=== PATIENT | female | born 1945 | race African-American/Black ===

== ENCOUNTER → 2016-05-17 | Outpatient (CLI) | payer MEDICARE, BC ==
[~2016-05-17] MED LIST: AMLO10TA4 PO; ASPI-482 PO; ASPI325T4 PO; ATOR20TA58 PO; Albuterol Sulfate NEB; CLOP75TA27 PO; CRESTOR40 MG PO; DOXY100C2 PO; ERGO500012 PO; FOLI0.8T21 PO; FURO-68 PO; FURO40TA4 PO; GLYB1TAB2 PO; GUAI5LIQ PO; HYDR-2868 PO; HYDR-2869 PO; HYDR100T24 PO; INSU100I13 SQ; INSU100V8 SQ; LABE200T24 PO; LINA5TAB PO; LIPITOR80 MG PO; LISI-334 PO; LISI-338 PO; METO2.5T PO; METO25TA2 PO; METO50TA2 PO; Metolazone PO; Metoprolol Tartrate PO; OMEP40CA5 PO; OXYC-323 PO; POTA20TA4 PO; PRED-220 PO; PRED20TA PO; PROAIR HFA8.5 GM INH; TOLT2TAB4 PO
--- NOTE | 2016-05-17 16:23 | CARD ---
APPROVED REPORT EXAM: Two-dimensional and M-mode echocardiogram with Doppler and color Doppler. Other Information Quality : GoodHR: 86bpm Rhythm : Irregular INDICATION Acute on chronic diastolic heart failure 2D DIMENSIONS RVDd3.4 (2.9-3.5cm)Left Atrium(2D)4.4 (1.6-4.0cm) IVSd1.5 (0.7-1.1cm)Aortic Root(2D)2.4 (2.0-3.7cm) LVDd5.1 (3.9-5.9cm)LVOT Diameter2.3 (1.8-2.4cm) PWd1.4 (0.7-1.1cm)LVDs3.9 (2.5-4.0cm) FS (%) 22.8 %SV55.4 ml Aortic Valve AoV Peak Vipul.157.6cm/sAoV VTI35.8cm AO Peak GR.9.9mmHgLVOT Peak Vipul.101.3cm/s AO Mean GR.6mmHgAVA (VMAX)2.77cm2 Mitral Valve MV E Xuzefgcw352.6cm/sMV E Peak Gr.6mmHg MV DECEL [id number] A Dejlvmdz087.8cm/s MV E Mean Gr.4mmHgE/A Ratio0.9 Pulmonary Valve PV Peak Uapkpkhf10.7cm/s Tricuspid Valve TR P. Xnfsrskv253yr/sTR Peak Gr.82mmHg Pulmonary Vein S1 Pdtuuyij65.6cm/sD2 Bgdnrzxo51.7cm/s PVa rzyrrnqr74wstb LEFT VENTRICLE The left ventricle is normal size. There is moderate concentric left ventricular hypertrophy. The lef t ventricular systolic function is normal. The Ejection Fraction is 55%. There is normal LV segmental wall motion. Transmitral Doppler flow pattern is Grade I-abnormal relaxation pattern. RIGHT VENTRICLE The right ventricle is normal size. There is normal right ventricular wall thickness. The right ventr icular systolic function is normal. ATRIA The left atrium is moderately dilated. The right atrium size is normal. The interatrial septum is int act with no evidence for an atrial septal defect or patent foramen ovale as noted on 2-D or Doppler i maging. AORTIC VALVE The aortic valve is mildly thickened. Doppler and Color Flow revealed no significant aortic regurgita tion. There is no significant aortic valvular stenosis. MITRAL VALVE The mitral valve leaflets are thickened. There is no evidence of mitral valve prolapse. There is no m itral valve stenosis. Doppler and Color Flow revealed mild to moderate mitral regurgitation. TRICUSPID VALVE Doppler and Color Flow revealed moderate tricuspid regurgitation. The pulmonary artery systolic press ure is estimated at 87 mmHg. There is severe pulmonary hypertension. PULMONIC VALVE The pulmonary valve is normal in structure and function. Doppler and Color Flow revealed no pulmonic valvular regurgitation. There is no pulmonic valvular stenosis. GREAT VESSELS The aortic root is normal in size. The ascending aorta is normal in size. The pulmonary artery is nor mal. The IVC is normal in size and collapses >50% with inspiration. PERICARDIAL EFFUSION There is no evidence of significant pericardial effusion. Critical Notification Critical Value: No <Conclusion> The left ventricular systolic function is normal. The Ejection Fraction is 55%. There is normal LV segmental wall motion. Transmitral Doppler flow pattern is Grade I-abnormal relaxation pattern. The left atrium is moderately dilated. Mild to moderate mitral regurgitation. Moderate tricuspid regurgitation. The pulmonary artery systolic pressure is estimated at 87 mmHg. There is severe pulmonary hypertension. There is no evidence of significant pericardial effusion.
== END | disposition home or self-care (01) ==
LOC: ECHO 11:00
PROVIDERS: ATTEND Internal Medicine Cardiovascular Disease
DX: I50.33 Acute on chronic diastolic (congestive) heart failure (principal); I51.7 Cardiomegaly; I34.0 Nonrheumatic mitral (valve) insufficiency; I27.2 Other secondary pulmonary hypertension
CPT/HCPCS: 93306

== ENCOUNTER → 2016-05-24 | Outpatient (CLI) | payer MEDICARE, BC ==
[2016-01-23 15:05] VITALS: BP 168/58
[~2016-05-24] MED LIST changes: -PROAIR HFA8.5 GM INH
[2016-05-24 13:13] LABS: CALCIUM 8.2 mg/dL (8.5-10.1); CREATININE 4.8 mg/dL (0.6-1.0); GFR 10.8; POTASSIUM 3.4 mmol/L (3.5-5.1)
== END | disposition home or self-care (01) ==
LOC: LAB 12:38
PROVIDERS: ATTEND Internal Medicine Cardiovascular Disease
DX: I50.33 Acute on chronic diastolic (congestive) heart failure (principal)
CPT/HCPCS: 36415; 80048

== ENCOUNTER 2016-05-26 11:17 | Emergency (ER) | payer MEDICARE, BC ==
[~2016-05-26] VITALS: Ht 154.9 cm; Wt 79.4 kg
[2016-05-26 13:05] LABS: BASO % 0 % (0-3); EOS % 0 % (0-3); HEMATOCRIT 32.8 % (36.0-47.0); HEMOGLOBIN 10.7 g/dL (12.0-15.5); LYMPH # 0.9 x10^3/uL (1.0-4.8); LYMPH % 14 % (24-48); MEAN CORPUSCULAR HEMOGLOBIN 31 pg (25-35); MEAN CORPUSCULAR HGB CONC 33 g/dL (31-37); MEAN CORPUSCULAR VOLUME 97 fL (79-100); MONO % 19 % (0-9); NEUT % 67 % (31-73); PLATELET COUNT 208 x10^3/uL (140-400); RED CELL DISTRIBUTION WIDTH 15.8 % (11.5-14.5); WHITE BLOOD COUNT 6.2 x10^3/uL (4.0-11.0)
[2016-05-26 13:06] LABS: CALCIUM 8.5 mg/dL (8.5-10.1); CREATININE 4.5 mg/dL (0.6-1.0); GFR 11.6; POTASSIUM 3.8 mmol/L (3.5-5.1)
--- NOTE | 2016-05-26 13:27 | RAD ---
INDICATION: Cough COMPARISON: 05/17/2016 FINDINGS: 2 views obtained. Cardiac silhouette is again enlarged. Interval improvement in right lower lung opacity compared to prior. No definite new infiltrate IMPRESSION: Some improvement in right lower lung opacity compared to prior without definite new infiltrate. Enlarged cardiac silhouette again seen.
[2016-05-26 13:30] VITALS: BP 158/92
[2016-05-26 13:45] LABS: ANISOCYTOSIS SLIGHT; OVALOCYTES FEW; PLT ESTIMATE ADEQUATE (ADEQUATE); POLYCHROMASIA SLIGHT; SCHISTOCYTES OCC
--- NOTE | 2016-05-26 13:52 | PHYS DOC ---
Past Medical History Past Medical History: CHF, COPD, Diabetes-Type II, DVT, High Cholesterol, Hypertension, [place], Other Additional Past Medical Histor: high chol Past Surgical History: Angioplasty, Other Additional Past Surgical Histo: cardiac cath with stent placement, rotator cuff surgery Alcohol Use: None Drug Use: None Adult General Chief Complaint Chief Complaint: SHORTNESS OF BREATH [facility] HPI Patient is a 70 year old female who presents with for evaluation of difficulty breathing for the past 1 month. States she was seen at urgent care 2 days ago and diagnosed with pneumonia. She was placed on doxycycline and prednisone. She also states she has been short of breath over the past 1 month due to CHF as well. She was seen by her key account executive to increased her diuretic and she has been improving. She states she is not completely back to her baseline, but her lower extremity swelling is gone and she no longer has a productive cough. She has been using albuterol intermittently as well. She denies chest pain, orthopnea, fever or chills, sore throat, myalgia, rhinorrhea , leg pain or swelling, hemoptysis, palpitations, diaphoresis. She is compliant with dialysis Review of Systems Review of Systems Constitutional: Denies fever or chills [] Eyes: Denies change in visual acuity, redness, or eye pain [] HENT: Denies nasal congestion or sore throat [] Respiratory: Has cough and shortness of breath [] Cardiovascular: No additional information not addressed in HPI [] GI: Denies abdominal pain, nausea, vomiting, bloody stools or diarrhea [] : Denies dysuria or hematuria [] Musculoskeletal: Denies back pain or joint pain [] Integument: Denies rash or skin lesions [] Neurologic: Denies headache, focal weakness or sensory changes [] Endocrine: Denies polyuria or polydipsia [] Allergies Allergies Allergies Coded Allergies Type Severity Reaction Last Updated Verified Iodinated Contrast Media - Oral and Allergy Intermediate 06/19/15 Yes Physical Exam Physical Exam Constitutional: Well developed, well nourished, no acute distress, non-toxic appearance. [] HENT: Normocephalic, atraumatic, bilateral external ears normal, oropharynx moist, no oral exudates, nose normal. [] Eyes: PERRLA, EOMI. [] Neck: Normal range of motion, supple, no stridor. [] Cardiovascular:Heart rate regular rhythm [] Lungs & Thorax: Bilateral breath sounds clear to auscultation. Intermittent dry cough [] Abdomen: Bowel sounds normal, soft, no tenderness. [] Skin: Warm, dry, no erythema, no rash. [] Back: No tenderness, no CVA tenderness. [] Extremities: No tenderness, ROM intact, no edema, no palpable cord. [] Neurologic: Alert and oriented X 3, normal motor function, normal sensory function, no focal deficits noted. [] Psychologic: Affect normal, judgement normal, mood normal. [] Current Patient Data Vital Signs Vital Signs Date Time Temp Pulse Resp B/P Pulse Ox O2 Delivery O2 Flow Rate FiO2 05/26/16 13:30 100 20 158/92 98 Nasal Cannula 4 05/26/16 11:30 97.5 97.5 Lab Values Laboratory Tests Test 05/26/16 12:37 05/26/16 12:42 Glucose (Fingerstick) 113mg/dL (70-99) H White Blood Count 6.2x10^3/uL (4.0-11.0) Red Blood Count 3.40x10^6/uL (3.50-5.40) L Hemoglobin 10.7g/dL (12.0-15.5) L Hematocrit 32.8% (36.0-47.0) L Mean Corpuscular Volume 97fL (79-100) Mean Corpuscular Hemoglobin 31pg (25-35) Mean Corpuscular Hemoglobin Concent 33g/dL (31-37) Red Cell Distribution Width 15.8% (11.5-14.5) H Platelet Count 208x10^3/uL (140-400) Neutrophils (%) (Auto) 67% (31-73) Lymphocytes (%) (Auto) 14% (24-48) L Monocytes (%) (Auto) 19% (0-9) H Eosinophils (%) (Auto) 0% (0-3) Basophils (%) (Auto) 0% (0-3) Neutrophils # (Auto) 4.2x10^3uL (1.8-7.7) Lymphocytes # (Auto) 0.9x10^3/uL (1.0-4.8) L Monocytes # (Auto) 1.2x10^3/uL (0.0-1.1) H Eosinophils # (Auto) 0.0x10^3/uL (0.0-0.7) Basophils # (Auto) 0.0x10^3/uL (0.0-0.2) Segmented Neutrophils % 68% (35-66) H Band Neutrophils % 7% (0-9) Lymphocytes % 13% (24-48) L Atypical Lymphocytes % (Manual) 1% (0-0) H Monocytes % 9% (0-10) Metamyelocytes % 1% (0-0) H Myelocytes % 1% (0-0) H Platelet Estimate Adequate (ADEQUATE) Polychromasia Slight Anisocytosis Slight Ovalocytes Few Schistocytes Occ Sodium Level 145mmol/L (136-145) Potassium Level 3.8mmol/L (3.5-5.1) Chloride Level 108mmol/L (98-107) H Carbon Dioxide Level 27mmol/L (21-32) Anion Gap 10 (6-14) Blood Urea Nitrogen 31mg/dL (7-20) H Creatinine 4.5mg/dL (0.6-1.0) H Estimated GFR (Cockcroft-Gault) 11.6 Glucose Level 121mg/dL (70-99) H Calcium Level 8.5mg/dL (8.5-10.1) BQ-Ayu-H-Type Natriuretic Peptide > 26682uz/mL (0-124) H Laboratory Tests 05/26/16 12:42 Laboratory Tests 05/26/16 12:42 EKG EKG EKG as interpreted by me as sinus with right bundle branch block, rate 97, no ST -T changes, MS 120, QTc 487, PVC Radiology/Procedures Radiology/Procedures Chest xray as interpreted by me with no acute cardiopulmonary disease process, improved from prior Course & Med Decision Making Course & Med Decision Making Pertinent Labs and Imaging studies reviewed. (See chart for details) Workup is unremarkable. She has elevated proBNP in the setting of end-stage renal disease. Chest x-ray is improving from prior, which is what they were most concerned about. She would like to go home and continue outpatient therapy. Return precautions given. She and understand and agree with plan. Dragon Disclaimer Dragon Disclaimer This electronic medical record was generated, in whole or in part, using a voice recognition dictation system. Departure Departure Impression: Primary Impression: Dyspnea Disposition: HOME, SELF-CARE Condition: STABLE Referrals: BERTO TORRES MD (PCP) Patient Instructions: Shortness of Breath, Evle-uj-Dutv Additional Instructions: Continue your current medications. Follow up with your primary care doctor. Return for any concerns. Problem Qualifiers Primary Impression: Dyspnea Dyspnea type: unspecified Qualified Code: R06.00 - Dyspnea, unspecified Sean ARECHIGA MD May 26, 2016 13:52
--- NOTE | 2016-05-26 15:53 | EKG ---
[facility] [address] [place] [address] Test Date: 2016-05-26 Test Time: 12:55:40 Pat Name: WANDA PRABHAKAR Department: Room: Gender: F Vendor Management Associate: : [id number] Requested By: Sean ARECHIGA Order Number: [id number] Reading MD: Measurements Intervals [place] Rate: 97 P: -13 DC: 120 QRS: -45 QRSD: 140 T: 25 QT: 380 QTc: 487 Interpretive Statements SINUS RHYTHM ATRIAL PREMATURE COMPLEX(ES) ABNORMAL LEFT AXIS DEVIATION LEFT ANTERIOR FASCICULAR BLOCK RIGHT BUNDLE BRANCH BLOCK BIFASCICULAR BLOCK RVH WITH REPOLARIZATION ABNORMALITY RI6.01 Unconfirmed report Compared to ECG 01/20/2016 14:53:27 Left anterior fascicular block now present Bifascicular block now present Sinus tachycardia no longer present Myocardial infarct finding no longer present
== END 2016-05-26 14:30 | disposition home or self-care (01) ==
LOC: ER 11:17
DX: R06.00 Dyspnea, unspecified (principal); I11.0 Hypertensive heart disease with heart failure; I50.9 Heart failure, unspecified; J44.9 Chronic obstructive pulmonary disease, unspecified; E11.9 Type 2 diabetes mellitus without complications; I25.2 Old myocardial infarction; E78.00 Pure hypercholesterolemia, unspecified; Z95.5 Presence of coronary angioplasty implant and graft; Z91.041 Radiographic dye allergy status; Z86.718 Personal history of other venous thrombosis and embolism
CPT/HCPCS: 36415; 71020; 80048; 82947; 83880; 85007; 85027; 93005; 99285-25

== ENCOUNTER 2016-05-31 11:52 | Inpatient (IN) | payer MEDICARE, BC ==
[~2016-05-31] VITALS: Ht 156.2 cm; Wt 77.1 kg
[2016-05-31] MEDS ORDERED: FUROSEMIDE 20 MG/2 ML VIAL IVP ONE ×2 (12:15→17:15)
[2016-05-31] MEDS ORDERED: IPRATRPIUM/ALBUTEROL 0.5/2.5MG 3 ML NEBU. NEB ONE (12:15)
--- NOTE | 2016-05-31 12:47 | RAD ---
EXAM: Chest one view. HISTORY: Chest pain and cough. COMPARISON: 05/26/2016. FINDINGS: A frontal view of the chest is obtained. Hyperinflation is consistent with chronic obstructive pulmonary disease. Blunting of the right costophrenic angle suggests a small pleural effusion. Enlargement of the central pulmonary arteries is consistent with pulmonary arterial hypertension. The heart is moderately enlarged. There are atherosclerotic calcifications of the aorta. There is bilateral rotator cuff arthropathy. IMPRESSION: 1. Moderate cardiomegaly. Small right pleural effusion. 2. Hyperinflation suggests chronic obstructive pulmonary disease.
[2016-05-31 13:11] LABS: BASO % 0 % (0-3); EOS % 0 % (0-3); HEMATOCRIT 34.5 % (36.0-47.0); HEMOGLOBIN 11.3 g/dL (12.0-15.5); LYMPH # 0.8 x10^3/uL (1.0-4.8); LYMPH % 8 % (24-48); MEAN CORPUSCULAR HEMOGLOBIN 32 pg (25-35); MEAN CORPUSCULAR HGB CONC 33 g/dL (31-37); MEAN CORPUSCULAR VOLUME 97 fL (79-100); MONO % 9 % (0-9); NEUT % 83 % (31-73); PLATELET COUNT 238 x10^3/uL (140-400); RED BLOOD COUNT 3.57 x10^6/uL (3.50-5.40); RED CELL DISTRIBUTION WIDTH 17.2 % (11.5-14.5); WHITE BLOOD COUNT 10.4 x10^3/uL (4.0-11.0)
--- NOTE | 2016-05-31 13:21 | PHYS DOC ---
Past Medical History Past Medical History: CHF, COPD, Diabetes-Type II, DVT, High Cholesterol, Hypertension, [place], Renal Disease, Renal Failure, Other Additional Past Medical Histor: high chol, dialysis MWF Past Surgical History: Angioplasty, Other Additional Past Surgical Histo: cardiac cath with stent placement, rotator cuff surgery,AV graft Additional Information: 7 years ago Alcohol Use: None Drug Use: None Adult General Chief Complaint Chief Complaint: SHORTNESS OF BREATH HPI HPI 70-year-old female presenting the emergency department with shortness of breath. She has oxygen that she wears at home however even on oxygen at home is becoming more short of breath. This started approximately 2 weeks ago it is worse with exertion. Approximately a week ago she was diagnosed with pneumonia and received antibiotic therapy long with steroids. She denies any cough. She has had nausea over the past few days and has a hard time keeping down her medications. She was recently prescribed Lasix but denies taking an over the past few days. She endorses mild leg swelling. Review of systems is negative for chest pain abdominal pain rash or diaphoresis. All other review of systems is negative unless otherwise noted in history of present illness. Review of Systems Review of Systems SEE ABOVE. Current Medications Current Medications Current Medications Medications (Trade) Dose Ordered Sig/Eric Start Time Stop Time Status Last Admin Dose Admin Albuterol/ Ipratropium (Duoneb) 3 ml 1X ONCE 05/31/16 12:15 05/31/16 12:16 DC 05/31/16 12:30 3 ML Furosemide (Lasix) 20 mg 1X ONCE 05/31/16 12:15 05/31/16 12:16 DC 05/31/16 13:03 20 MG Allergies Allergies Allergies Coded Allergies Type Severity Reaction Last Updated Verified Iodinated Contrast Media - Oral and Allergy Intermediate 06/19/15 Yes Physical Exam Physical Exam Constitutional: Well developed, well nourished, no acute distress, non-toxic appearance. HENT: Normocephalic, atraumatic, bilateral external ears normal, oropharynx moist, no oral exudates, nose normal. [] Eyes: PERRLA, EOMI, conjunctiva normal, no discharge. Neck: Normal range of motion, no tenderness, supple, no stridor. [] Cardiovascular:Heart rate regular rhythm, no murmur [] Lungs & Thorax: Mild crackles in the bases. mild wheezing present. Abdomen: Bowel sounds normal, soft, no tenderness, no masses, no pulsatile masses. [] Skin: Warm, dry, no erythema, no rash. Back: No tenderness, no CVA tenderness. Extremities: No tenderness, no cyanosis, no clubbing, ROM intact, no edema. [] Neurologic: Alert and oriented X 3, normal motor function, normal sensory function, no focal deficits noted. Psychologic: Affect normal, judgement normal, mood normal. [] Current Patient Data Vital Signs Vital Signs Date Time Temp Pulse Resp B/P Pulse Ox O2 Delivery O2 Flow Rate FiO2 05/31/16 13:03 94 19 199/95 99 Nasal Cannula 3 05/31/16 12:02 98.3 98.3 Lab Values Laboratory Tests Test 05/31/16 12:55 White Blood Count 10.4x10^3/uL (4.0-11.0) # Red Blood Count 3.57x10^6/uL (3.50-5.40) Hemoglobin 11.3g/dL (12.0-15.5) L Hematocrit 34.5% (36.0-47.0) L Mean Corpuscular Volume 97fL (79-100) Mean Corpuscular Hemoglobin 32pg (25-35) Mean Corpuscular Hemoglobin Concent 33g/dL (31-37) Red Cell Distribution Width 17.2% (11.5-14.5) H Platelet Count 238x10^3/uL (140-400) Neutrophils (%) (Auto) 83% (31-73) H Lymphocytes (%) (Auto) 8% (24-48) L Monocytes (%) (Auto) 9% (0-9) Eosinophils (%) (Auto) 0% (0-3) Basophils (%) (Auto) 0% (0-3) Neutrophils # (Auto) 8.6x10^3uL (1.8-7.7) H Lymphocytes # (Auto) 0.8x10^3/uL (1.0-4.8) L Monocytes # (Auto) 0.9x10^3/uL (0.0-1.1) Eosinophils # (Auto) 0.0x10^3/uL (0.0-0.7) Basophils # (Auto) 0.0x10^3/uL (0.0-0.2) Sodium Level 142mmol/L (136-145) Potassium Level 4.3mmol/L (3.5-5.1) Chloride Level 107mmol/L (98-107) Carbon Dioxide Level 28mmol/L (21-32) Anion Gap 7 (6-14) Blood Urea Nitrogen 25mg/dL (7-20) H Creatinine 4.0mg/dL (0.6-1.0) H Estimated GFR (Cockcroft-Gault) 13.3 Glucose Level 193mg/dL (70-99) H Calcium Level 8.4mg/dL (8.5-10.1) L Total Bilirubin 0.7mg/dL (0.2-1.0) Direct Bilirubin 0.1mg/dL (0.0-0.2) Aspartate Amino Transferase (AST) 26U/L (15-37) Alanine Aminotransferase (ALT) 42U/L (14-59) Alkaline Phosphatase 99U/L (46-116) Troponin I Quantitative 0.091ng/mL (0.000-0.055) DE-Uad-T-Type Natriuretic Peptide > 23893ee/mL (0-124) H Total Protein 5.8g/dL (6.4-8.2) L Albumin 2.5g/dL (3.4-5.0) L Lipase 179U/L (73-393) Laboratory Tests 05/31/16 12:55 Laboratory Tests 05/31/16 12:55 EKG EKG EKG shows sinus rhythm with a regular rate. [place] is leftward with a right bundle branch block QRS morphology present. Intervals show prolonged QRS. ST segments are congruent. Radiology/Procedures Radiology/Procedures [] Course & Med Decision Making Course & Med Decision Making Pertinent Labs and Imaging studies reviewed. (See chart for details) [] 80-year-old female presenting with worsening shortness of breath. On examination the patient was saturating well on her baseline requirement however she did have wheezing and crackles on exam. Otherwise she was mildly tachycardic. Physical exam was otherwise unremarkable. EKG unremarkable. Chest x -ray unremarkable. Blood work obtained which showed mild anemia. Chemistry panel showed elevated creatinine and BUN. ProBNP extremely elevated. Troponin elevated. The patient was then admitted to our hospital for further evaluation workup and care. Dragon Disclaimer Dragon Disclaimer This electronic medical record was generated, in whole or in part, using a voice recognition dictation system. Departure Departure Impression: Primary Impression: Dyspnea Additional Impressions: CHF exacerbation COPD (chronic obstructive pulmonary disease) Disposition: ADMITTED INPATIENT Admitting Physician: Alexandre Amezcua Condition: STABLE Referrals: BERTO TORRES MD (PCP) Problem Qualifiers ISABEL RAMOS MD May 31, 2016 13:21
[2016-05-31] MEDS ORDERED: ONDANSETRON PF 4 MG/2 ML VIAL. IV PRN ×2 (13:30→17:15)
[2016-05-31] MEDS ORDERED: MORPHINE SULFATE 2 MG/ML DISP.SYRIN. IV PRN (13:30)
[2016-05-31 13:32] LABS: CALCIUM 8.4 mg/dL (8.5-10.1); GFR 13.3; POTASSIUM 4.3 mmol/L (3.5-5.1)
[2016-05-31 13:35] LABS: ALBUMIN 2.5 g/dL (3.4-5.0); DIRECT BILIRUBIN 0.1 mg/dL (0.0-0.2); TOTAL BILIRUBIN 0.7 mg/dL (0.2-1.0); TOTAL PROTEIN 5.8 g/dL (6.4-8.2)
[2016-05-31] MEDS ORDERED: ASPIRIN 81 MG TAB.CHEW PO ONE (13:45)
--- NOTE | 2016-05-31 14:24 | ACF ---
Admission Forms Criteria HEART FAILURE: COMMON COMPLICATIONS Clinical Indications for Inpatient Care (Place 'X' for any and all applicable criteria): Ongoing inpatient care may be indicated for heart failure with ANY ONE of the following (1)(2)(3)(4)(5): [ ]I. Ongoing need for care for primary condition requiring frequent therapy adjustments because of changes in cardiac function (eg, drug dosage changes for drugs that are renally metabolized) [ ]II. New-onset heart failure [ ]III. Heart failure with decreased urine output not responsive to attempts to optimize volume status [ ]IV. Acute cardiac ischemia causing or associated with failure [X]V. Complications of heart failure, including ANY ONE of the following: [ ]a) Pericardial effusion [ ]b) Symptomatic pleural effusion [ ]c) O2 saturation <90% or PO2 < 60 mm Hg (8.0 kPa) on room air or require baseline supplemental O2 [ ]d) Tachypnea [X]e) Dyspnea [ ]f) Syncope [ ]g) Change in mental status [ ]h) Acute renal insufficiency that is severe (reduction of more than 50% in estimated glomerular filtration rate from baseline) or progressive reduction of more than 25% in estimated glomerular filtration rate from baseline, with creatinine continuing to rise) [ ]i) Hemodynamic instability [ ]j) Anasarca [ ]k) Clinically significant metabolic abnormalities due to heart failure (eg, new-onset metabolic acidosis) Extended stay beyond goal length of stay for primary condition may be needed until ALL of the following are present(1)(3): [ ]a) Stable and effective diuretic regimen established (or patient on stable dialysis regimen if in chronic renal failure) [ ]b) Breathing comfortably at rest [ ]c) Saturation of arterial oxygen greater than 90% or at acceptable baseline [ ]d) Pulmonary edema absent or improved [ ]e) Hemodynamic stability [ ]f) Volume status acceptable on oral medication [ ]g) Peripheral or sacral edema absent or improved [ ]h) Renal function stable and manageable at a lower level of care [ ]i) Complications (eg, pleural effusion) resolved or manageable at a lower level of care [ ]j) Patient or caregiver has received written discharge instructions or educational material addressing activity level, diet, discharge medications, follow-up appointment, weight monitoring, and what to do if symptoms worsen The original [facility] content created by [employer] has been revised. The portions of the content which have been revised are identified through the use of italic text or in bold, and [facility] has neither reviewed nor approved the modified material.All other unmodified content is copyright [facility]. Please see references footnoted in the original [facility] edition 2016 Admission Criteria Met?: Yes BERTIN SORTO May 31, 2016 14:24
[2016-05-31] MEDS: IPRATRPIUM/ALBUTEROL 0.5/2.5MG 3 ML NEBU. NEB SCH ×2 (15:15→20:24)
--- NOTE | 2016-05-31 15:53 | PDOC2 ---
CARDIAC CONSULT DATE OF CONSULT Date of Consult DATE: 05/31/16 TIME: 15:41 REASON FOR CONSULT Reason for Consult: Worsening exertional dyspnea REFERRING PHYSICIAN Referring Physician: Dr. Wilkins SOURCE Source: Chart review, Patient HISTORY OF PRESENT ILLNESS HISTORY OF PRESENT ILLNESS This is a 70 yo female who presented with complaints of shortness of breath. Patient reports symptoms have been ongoing over the last 3 weeks; worse over the last 24-48hrs. Associated with productive cough. Feels achy/fatigued. Patient seen in our office last ; apparently she stopped taking her lasix and metolazone for unknown reasons. Lasix was resumed. Patient then went to ED; was treated and sent home. Symptoms worsened so she returned to the ED today. Denies any CP, palpitations, dizziness, diaphoresis, nausea/vomiting, or fevers. PAST MEDICAL HISTORY Past Medical History Cardiovascular: CAD, CHF, HTN, Hyperlipidemia, Pulmonary hypertension, Other ( PVD s/p [employer]/stent to left common iliac artery) Pulmonary: Asthma, COPD, PNA, PENNY CENTRAL NERVOUS SYSTEM: Other (no pertinent hx) GI: GERD Heme/Onc: Anemia NOS, Other (DVT) Renal/: Chronic renal failure on HD Endocrine: Diabetes Dermatology: No pertinent hx PAST SURGICAL HISTORY Past Surgical History Appendectomy, Other (left rotator cuff sx) FAMILY HISTORY Family History: Coronary Artery Disease, Diabetes, Hypertension SOCIAL HISTORY Smoke: No ALCOHOL: none Drugs: None Lives: with Family CURRENT MEDICATIONS CURRENT MEDICATIONS Current Medications Medications (Trade) Dose Ordered Sig/Eric Route PRN Reason Start Time Stop Time Status Last Admin Dose Admin Albuterol/ Ipratropium (Duoneb) 3 ml 1X ONCE NEB 05/31/16 12:15 05/31/16 12:16 DC 05/31/16 12:30 Furosemide (Lasix) 20 mg 1X ONCE IVP 05/31/16 12:15 05/31/16 12:16 DC 05/31/16 13:03 Albuterol/ Ipratropium (Duoneb) 3 ml RTQID NEB 05/31/16 16:00 06/01/16 15:59 05/31/16 15:15 Aspirin (Children'S Aspirin) 324 mg 1X ONCE PO 05/31/16 13:45 05/31/16 13:46 DC 05/31/16 13:50 ALLERGIES ALLERGIES: Coded Allergies: Iodinated Contrast Media - Oral and (Verified Allergy, Intermediate, ) ROS Review of System 14 point ROS conducted with pertinent positives noted above in HPI PHYSICAL EXAM General: Alert, Oriented X3, Cooperative, No acute distress HEENT: Atraumatic, Mucous membr. moist/pink Lungs: Other (bibasilar crackles) Heart: Regular rate, Normal S1, Normal S2, Other (2/6 systolic murmur ) Abdomen: Soft Extremities: Other (1+ LLE edema, trace RLE edema, 1+ bilateral DP pulses ) Skin: No breakdown, No significant lesion Neuro: Normal speech, Sensation intact Psych/Mental Status: Mental status NL, Mood NL MUSCULOSKELETAL: Osteoarthritic changes both hands VITALS VITALS Vital Signs Date Time Temp Pulse Resp B/P Pulse Ox O2 Delivery O2 Flow Rate FiO2 05/31/16 15:16 97 Nasal Cannula 4.0 05/31/16 13:51 97 24 196/93 05/31/16 12:02 98.3 98.3 LABS Lab: Laboratory Tests Test 05/31/16 12:55 White Blood Count 10.4x10^3/uL (4.0-11.0) Red Blood Count 3.57x10^6/uL (3.50-5.40) Hemoglobin 11.3g/dL (12.0-15.5) Hematocrit 34.5% (36.0-47.0) Mean Corpuscular Volume 97fL (79-100) Mean Corpuscular Hemoglobin 32pg (25-35) Mean Corpuscular Hemoglobin Concent 33g/dL (31-37) Red Cell Distribution Width 17.2% (11.5-14.5) Platelet Count 238x10^3/uL (140-400) Neutrophils (%) (Auto) 83% (31-73) Lymphocytes (%) (Auto) 8% (24-48) Monocytes (%) (Auto) 9% (0-9) Eosinophils (%) (Auto) 0% (0-3) Basophils (%) (Auto) 0% (0-3) Neutrophils # (Auto) 8.6x10^3uL (1.8-7.7) Lymphocytes # (Auto) 0.8x10^3/uL (1.0-4.8) Monocytes # (Auto) 0.9x10^3/uL (0.0-1.1) Eosinophils # (Auto) 0.0x10^3/uL (0.0-0.7) Basophils # (Auto) 0.0x10^3/uL (0.0-0.2) Sodium Level 142mmol/L (136-145) Potassium Level 4.3mmol/L (3.5-5.1) Chloride Level 107mmol/L (98-107) Carbon Dioxide Level 28mmol/L (21-32) Anion Gap 7 (6-14) Blood Urea Nitrogen 25mg/dL (7-20) Creatinine 4.0mg/dL (0.6-1.0) Estimated GFR (Cockcroft-Gault) 13.3 Glucose Level 193mg/dL (70-99) Calcium Level 8.4mg/dL (8.5-10.1) Total Bilirubin 0.7mg/dL (0.2-1.0) Direct Bilirubin 0.1mg/dL (0.0-0.2) Aspartate Amino Transf (AST/SGOT) 26U/L (15-37) Alanine Aminotransferase (ALT/SGPT) 42U/L (14-59) Alkaline Phosphatase 99U/L (46-116) Troponin I Quantitative 0.091ng/mL (0.000-0.055) KD-Vxf-L-Type Natriuretic Peptide > 28793xr/mL (0-124) Total Protein 5.8g/dL (6.4-8.2) Albumin 2.5g/dL (3.4-5.0) Lipase 179U/L (73-393) ECHOCARDIOGRAM ECHOCARDIOGRAM <Conclusion> The left ventricular systolic function is normal. The Ejection Fraction is 55%. There is normal LV segmental wall motion. Transmitral Doppler flow pattern is Grade I-abnormal relaxation pattern. The left atrium is moderately dilated. Mild to moderate mitral regurgitation. Moderate tricuspid regurgitation. The pulmonary artery systolic pressure is estimated at 87 mmHg. There is severe pulmonary hypertension. There is no evidence of significant pericardial effusion. DATE: 05/17/16 1622 STRESS TEST STRESS TEST Conclusion 1. No EKG evidence of stress induced ischemic changes. 2. Small reversible inferior wall defect as noted above. 3. Low normal EF with stress. EF 58% 4. Low to moderate risk study. DATE: 06/02/15 1152 HEART CATH HEART CATH Conclusion 1. Severe single-vessel coronary artery disease. 80% stenosis involving the mid segment of the right coronary artery. The previously placed stent in the distal segment of the right coronary artery was widely patent. 2. Successful PCI/drug eluting stent placement to the right coronary artery. Recommendations 1. Aspirin 325 mg daily 2. Plavix 75 mg daily for preferably one year 3. Cardiovascular risk factor modification DATE: 01/24/14 1035 ASSESSMENT/PLAN ASSESSMENT/PLAN 1. Acute on chronic diastolic heart failure, decompensated NT Pro BNP significantly elevated. CXR with right pleural effusion Recent echo with LVEF 55% continue diuresis as able fluid offloading in HD 2. Mildly elevated troponin initial 0.091 in the setting of CKD and acute HF MPI 05/26 with no evidence of ischemia trend enzymes 3. Acute on chronic respiratory failure with AE COPD pulm consulted. 4. CAD s/p PCI/MALLORIE to RCA stable. CP free continue secondary prevention 5. PVD s/p [employer]/stent placement to left common iliac artery. stable. no claudication symptoms Hypertension uncontrolled; did not take home medication today- will resume hydralazine PRN Hyperlipidemia resume statin therapy Chronic renal failure on HD per nephrology Mild protein malnutrition DM Problems: DARSHANA PEPE APRN May 31, 2016 15:52
[2016-05-31] MEDS ORDERED: hydrALAZINE 20 MG/ML VIAL. IVP PRN ×2 (16:30→17:15)
[2016-05-31] MEDS ORDERED: ASPIRIN 325 MG TABLET PO SCH (17:00)
[2016-05-31] MEDS ORDERED: HYDROCODONE/APAP 5/325MG TABLET. PO PRN (17:15)
[2016-05-31] MEDS ORDERED: ALBUTEROL SULFATE 2.5 MG/3 ML NEBU. NEB PRN (17:15)
[2016-05-31] MEDS ORDERED: ACETAMINOPHEN 325 MG TABLET. PO PRN (17:15)
[2016-05-31] MEDS: METOLAZONE 2.5 MG TABLET PO SCH (17:21)
[2016-05-31] MEDS: FUROSEMIDE 40 MG/4 ML VIAL IVP SCH (17:21)
[2016-05-31] MEDS: POTASSIUM CHLORIDE 20 MEQ TABLET.ER. PO SCH (17:21)
[2016-05-31] MEDS: CLOPIDOGREL BISULFATE 75 MG TABLET PO SCH (17:21)
[2016-05-31] MEDS: LISINOPRIL 20 MG TABLET PO SCH (17:22)
[2016-05-31] MEDS: METOPROLOL TART IMMED RELEASE 50 MG TABLET PO SCH ×2 (17:22→22:27)
--- NOTE | 2016-05-31 17:35 | PDOC1 ---
History and Physical Past Medical History Cardiovascular: CAD, CHF, HTN, Hyperlipidemia, Other Pulmonary: Asthma, COPD, Other CENTRAL NERVOUS SYSTEM: Other GI: Diverticulosis Heme/Onc: Anemia NOS Psych: Anxiety Rheumatologic: No pertinent hx Infectious disease: No pertinent hx Renal/: Chronic renal failure Endocrine: Diabetes Past Surgical History Past Surgical History: Appendectomy, Arthroscopy, Other Family History Family History: Coronary Artery Disease, Diabetes, Hypertension Social History Smoke: No ALCOHOL: none Drugs: None Current Problem List Problem List Problems Medical Problems: (1) CHF exacerbation Status: Acute (2) COPD (chronic obstructive pulmonary disease) Status: Acute (3) Dyspnea Status: Acute Current Medications Current Medications Current Medications Medications (Trade) Dose Ordered Sig/Eric Start Time Stop Time Status Last Admin Dose Admin Acetaminophen (Tylenol) 325 mg PRN Q6HRS PRN 05/31/16 17:15 Acetaminophen/ Hydrocodone Bitart (Lortab 5/325) 1 tab PRN Q6HRS PRN 05/31/16 17:15 Albuterol Sulfate (Ventolin Neb Soln) 2.5 mg PRN Q4HRS PRN 05/31/16 17:15 Albuterol/ Ipratropium (Duoneb) 3 ml RTQID 05/31/16 16:00 06/01/16 15:59 05/31/16 15:15 3 ML Aspirin (Hung Aspirin) 81 mg DAILY 05/31/16 17:00 Aspirin (Children'S Aspirin) 324 mg 1X ONCE 05/31/16 13:45 05/31/16 13:46 DC 05/31/16 13:50 324 MG Atorvastatin Calcium (Lipitor) 30 mg QHS 05/31/16 21:00 Clopidogrel Bisulfate (Plavix) 75 mg DAILY 05/31/16 17:00 05/31/16 17:21 75 MG Furosemide (Lasix) 20 mg 1X ONCE 05/31/16 17:15 05/31/16 17:17 DC Hydralazine HCl (Apresoline) 10 mg PRN Q4HRS PRN 05/31/16 17:15 Lisinopril (Prinivil) 20 mg DAILY 05/31/16 17:00 05/31/16 17:22 20 MG Metolazone (Zaroxolyn) 2.5 mg DAILY 05/31/16 17:00 05/31/16 17:21 2.5 MG Metoprolol Tartrate (Lopressor) 50 mg BID 05/31/16 17:00 05/31/16 17:22 50 MG Morphine Sulfate 2 mg PRN Q2HR PRN 05/31/16 13:30 06/01/16 13:29 Ondansetron HCl (Zofran) 4 mg PRN Q8HRS PRN 05/31/16 17:15 Potassium Chloride (Klor-Con) 20 meq DAILYWBKFT 05/31/16 17:00 05/31/16 17:21 20 MEQ Allergies Allergies Allergies Coded Allergies Type Severity Reaction Last Updated Verified Iodinated Contrast Media - Oral and Allergy Intermediate 06/19/15 Yes ROS Review of System CONSTITUTIONAL: No fever or chills EYES: No recent changes SKIN: No rash or itching CARDIOVASCULAR: sob and leg edema RESPIRATORY: No SOB or cough GASTROINTESTINAL: No nausea, vomiting or abdominal pain NEUROLOGICAL: No headaches or weakness ENDOCRINE: No cold or heat intolerance GENITOURINARY: No urgency or frequency of urination MUSCULOSKELETAL: No back pain or joint pain LYMPHATICS: No enlarged lymph nodes PSYCHIATRIC: No anxiety or depression Physical Exam Physical Exam GEN.: No apparent distress. Alert and oriented. HEENT: Head is normocephalic, atraumatic NECK: Supple. no jvd LUNGS: anterior chest clear, basal rales HEART: RRR, S1, S2 present. Peripheral pulses intact ABDOMEN: Soft, nontender. Positive bowel sounds. EXTREMITIES: Without any cyanosis. edema present NEUROLOGIC: Normal speech, normal tone PSYCHIATRIC: Normal affect, normal mood. SKIN: No visible ulcerations Vitals Vitals Vital Signs Date Time Temp Pulse Resp B/P Pulse Ox O2 Delivery O2 Flow Rate FiO2 05/31/16 17:22 98 198/92 05/31/16 16:16 20 05/31/16 15:16 97 Nasal Cannula 4.0 05/31/16 12:02 98.3 98.3 Labs Labs Laboratory Tests Test 05/31/16 12:55 White Blood Count 10.4x10^3/uL (4.0-11.0) Red Blood Count 3.57x10^6/uL (3.50-5.40) Hemoglobin 11.3g/dL (12.0-15.5) Hematocrit 34.5% (36.0-47.0) Mean Corpuscular Volume 97fL (79-100) Mean Corpuscular Hemoglobin 32pg (25-35) Mean Corpuscular Hemoglobin Concent 33g/dL (31-37) Red Cell Distribution Width 17.2% (11.5-14.5) Platelet Count 238x10^3/uL (140-400) Neutrophils (%) (Auto) 83% (31-73) Lymphocytes (%) (Auto) 8% (24-48) Monocytes (%) (Auto) 9% (0-9) Eosinophils (%) (Auto) 0% (0-3) Basophils (%) (Auto) 0% (0-3) Neutrophils # (Auto) 8.6x10^3uL (1.8-7.7) Lymphocytes # (Auto) 0.8x10^3/uL (1.0-4.8) Monocytes # (Auto) 0.9x10^3/uL (0.0-1.1) Eosinophils # (Auto) 0.0x10^3/uL (0.0-0.7) Basophils # (Auto) 0.0x10^3/uL (0.0-0.2) Sodium Level 142mmol/L (136-145) Potassium Level 4.3mmol/L (3.5-5.1) Chloride Level 107mmol/L (98-107) Carbon Dioxide Level 28mmol/L (21-32) Anion Gap 7 (6-14) Blood Urea Nitrogen 25mg/dL (7-20) Creatinine 4.0mg/dL (0.6-1.0) Estimated GFR (Cockcroft-Gault) 13.3 Glucose Level 193mg/dL (70-99) Calcium Level 8.4mg/dL (8.5-10.1) Total Bilirubin 0.7mg/dL (0.2-1.0) Direct Bilirubin 0.1mg/dL (0.0-0.2) Aspartate Amino Transf (AST/SGOT) 26U/L (15-37) Alanine Aminotransferase (ALT/SGPT) 42U/L (14-59) Alkaline Phosphatase 99U/L (46-116) Troponin I Quantitative 0.091ng/mL (0.000-0.055) DW-Fiv-A-Type Natriuretic Peptide > 46051si/mL (0-124) Total Protein 5.8g/dL (6.4-8.2) Albumin 2.5g/dL (3.4-5.0) Lipase 179U/L (73-393) Laboratory Tests Test 05/31/16 12:55 White Blood Count 10.4x10^3/uL (4.0-11.0) Red Blood Count 3.57x10^6/uL (3.50-5.40) Hemoglobin 11.3g/dL (12.0-15.5) Hematocrit 34.5% (36.0-47.0) Mean Corpuscular Volume 97fL (79-100) Mean Corpuscular Hemoglobin 32pg (25-35) Mean Corpuscular Hemoglobin Concent 33g/dL (31-37) Red Cell Distribution Width 17.2% (11.5-14.5) Platelet Count 238x10^3/uL (140-400) Neutrophils (%) (Auto) 83% (31-73) Lymphocytes (%) (Auto) 8% (24-48) Monocytes (%) (Auto) 9% (0-9) Eosinophils (%) (Auto) 0% (0-3) Basophils (%) (Auto) 0% (0-3) Neutrophils # (Auto) 8.6x10^3uL (1.8-7.7) Lymphocytes # (Auto) 0.8x10^3/uL (1.0-4.8) Monocytes # (Auto) 0.9x10^3/uL (0.0-1.1) Eosinophils # (Auto) 0.0x10^3/uL (0.0-0.7) Basophils # (Auto) 0.0x10^3/uL (0.0-0.2) Sodium Level 142mmol/L (136-145) Potassium Level 4.3mmol/L (3.5-5.1) Chloride Level 107mmol/L (98-107) Carbon Dioxide Level 28mmol/L (21-32) Anion Gap 7 (6-14) Blood Urea Nitrogen 25mg/dL (7-20) Creatinine 4.0mg/dL (0.6-1.0) Estimated GFR (Cockcroft-Gault) 13.3 Glucose Level 193mg/dL (70-99) Calcium Level 8.4mg/dL (8.5-10.1) Total Bilirubin 0.7mg/dL (0.2-1.0) Direct Bilirubin 0.1mg/dL (0.0-0.2) Aspartate Amino Transf (AST/SGOT) 26U/L (15-37) Alanine Aminotransferase (ALT/SGPT) 42U/L (14-59) Alkaline Phosphatase 99U/L (46-116) Troponin I Quantitative 0.091ng/mL (0.000-0.055) JO-Dkg-B-Type Natriuretic Peptide > 72775vt/mL (0-124) Total Protein 5.8g/dL (6.4-8.2) Albumin 2.5g/dL (3.4-5.0) Lipase 179U/L (73-393) VTE Prophylaxis Ordered VTE Prophylaxis Devices: Yes VTE Pharmacological Prophylaxi: Yes MARISSA WOOD MD May 31, 2016 17:35
[2016-05-31] MEDS ORDERED: DEXTROSE 50% 25 GM / 50ML DISP.SYRIN. IV PRN ×2 (17:45→22:15)
--- NOTE | 2016-05-31 18:08 | PDOC2 ---
CONSULT Date of Consult Date of Consult DATE: 05/31/16 TIME: 18:06 Reason for Consult Reason for Consult: ESRD Referring Physician Referring Physician: Dr Amezcua Identification/Chief Complaint Chief Complaint SOB/ COPD Exac Problems: Source Source: Chart review, Patient History of Present Illness Reason for Visit: as dictated Past Medical History Cardiovascular: CAD, CHF, HTN, Hyperlipidemia, Other Pulmonary: Asthma, COPD, Other CENTRAL NERVOUS SYSTEM: Other GI: Diverticulosis Heme/Onc: Anemia NOS Psych: Anxiety Rheumatologic: No pertinent hx Infectious disease: No pertinent hx Renal/: Chronic renal failure Endocrine: Diabetes Past Surgical History Past Surgical History: Appendectomy, Arthroscopy, Other Family History Family History: Coronary Artery Disease, Diabetes, Hypertension Social History No ALCOHOL: none Drugs: None Lives: with Family Current Problem List Problem List Problems Medical Problems: (1) CHF exacerbation Status: Acute (2) COPD (chronic obstructive pulmonary disease) Status: Acute (3) Dyspnea Status: Acute Current Medications Current Medications Current Medications Albuterol/ Ipratropium (Duoneb) 3 ml 1X ONCE NEB Last administered on 12:30; Start 05/31/16 at 12:15; Stop 05/31/16 at 12:16; Status DC Furosemide (Lasix) 20 mg 1X ONCE IVP Last administered on 05/31/16 13:03; Start 05/31/16 at 12:15; Stop 05/31/16 at 12:16; Status DC Ondansetron HCl (Zofran) 4 mg PRN Q8HRS PRN IV NAUSEA/VOMITING; Start 05/31/16 at 13:30; Stop 06/01/16 at 13:29 Morphine Sulfate 2 mg PRN Q2HR PRN IV PAIN; Start 05/31/16 at 13:30; Stop 06/01 at 13:29 Albuterol/ Ipratropium (Duoneb) 3 ml RTQID NEB Last administered on 05/31/16 15:15; Start 05/31/16 at 16:00; Stop 06/01/16 at 15:59 Aspirin (Children'S Aspirin) 324 mg 1X ONCE PO Last administered on 05/31/16 13:50; Start 05/31/16 at 13:45; Stop 05/31/16 at 13:46; Status DC Furosemide (Lasix) 40 mg DAILY IVP Last administered on 05/31/16 17:21; Start 05/31/16 at 16:30 Aspirin (Hung Aspirin) 81 mg DAILY PO ; Start 05/31/16 at 17:00; Stop 05/31/16 at 17:36; Status DC Atorvastatin Calcium (Lipitor) 30 mg QHS PO ; Start 05/31/16 at 21:00 Clopidogrel Bisulfate (Plavix) 75 mg DAILY PO Last administered on 05/31/16 17 :21; Start 05/31/16 at 17:00 Lisinopril (Prinivil) 20 mg DAILY PO Last administered on 05/31/16 17:22; Start 05/31/16 at 17:00 Metolazone (Zaroxolyn) 2.5 mg DAILY PO Last administered on 05/31/16 17:21; Start 05/31/16 at 17:00 Potassium Chloride (Klor-Con) 20 meq DAILYWBKFT PO Last administered on 17:21; Start 05/31/16 at 17:00 Metoprolol Tartrate (Lopressor) 50 mg BID PO Last administered on 05/31/16 17: 22; Start 05/31/16 at 17:00 Hydralazine HCl (Apresoline) 10 mg PRN Q4HRS PRN IVP ELEVATED BP, SEE COMMENTS ; Start 05/31/16 at 16:30 Acetaminophen (Tylenol) 325 mg PRN Q6HRS PRN PO MILD PAIN / TEMP; Start at 17:15 Acetaminophen/ Hydrocodone Bitart (Lortab 5/325) 1 tab PRN Q6HRS PRN PO MODERATE TO SEVERE PAIN; Start 05/31/16 at 17:15 Hydralazine HCl (Apresoline) 10 mg PRN Q4HRS PRN IVP ELEVATED BP, SEE COMMENTS ; Start 05/31/16 at 17:15 Ondansetron HCl (Zofran) 4 mg PRN Q8HRS PRN IV NAUSEA/VOMITING; Start 05/31/16 at 17:15 Albuterol Sulfate (Ventolin Neb Soln) 2.5 mg PRN Q4HRS PRN NEB SHORTNESS OF BREATH; Start 05/31/16 at 17:15 Furosemide (Lasix) 20 mg 1X ONCE IVP ; Start 05/31/16 at 17:15; Stop 05/31/16 at 17:17; Status DC Aspirin (Ecotrin) 81 mg DAILYWBKFT PO ; Start 05/31/16 at 17:45 Insulin Aspart (Novolog) 0-9 UNITS TIDWMEALS SQ ; Start 06/01/16 at 08:00 Dextrose 12.5 gm PRN Q15MIN PRN IV SEE COMMENTS; Start 05/31/16 at 17:45 Active Scripts Active Lisinopril 20 Mg Tablet 20 Tab PO DAILY Klor-Con M20 (Potassium Chloride) 20 Meq Tab.er.prt 20 Meq PO DAILYWBKFT Guaifenesin-Codeine Syrup (Guaifenesin/Codeine Phosphate) 5 Ml Liquid 5 Ml PO PRN Q6HRS PRN [Albuterol Sulfate] 2.5 MG/3 ML Nebu 2.5 Mg NEB PRN Q4HRS PRN Tradjenta (Linagliptin) 5 Mg Tablet 5 Mg PO DAILY Reported Lantus Solostar (Insulin Glargine,Hum.rec.anlog) 100 Unit/1 Ml Insuln.pen 20 Unit SQ QHS Marina-Jayme Tablet (Folic Acid/Vitamin B Comp W-C) 0.8 Mg Tablet 0.8 Mg PO Metolazone 2.5 Mg Tablet 2.5 Mg PO DAILY Metoprolol Tartrate 50 Mg Tablet 1 Tab PO TID Atorvastatin Calcium 20 Mg Tablet 30 Mg PO DAILY Aspirin 325 Mg Tablet 1 Tab PO DAILY Tolterodine Tartrate 2 Mg Tablet 4 Mg PO DAILY Plavix (Clopidogrel Bisulfate) 75 Mg Tablet 75 Mg PO DAILY Allergies Allergies: Coded Allergies: Iodinated Contrast Media - Oral and (Verified Allergy, Intermediate, ) ROS Review of System GEN: no Fevers no Chills EYES: no Visual Complaints ENT: no EN Drainage no Hearing deficiets CVS: no Orthopnea + CP RESP: + SOB + TAYLOR GI: no Nausea no Vomiting : no Dysuria no Urgency HEME: no easy bruising no Palp Ly Nodes NEURO no Focal Weakness no Sz PSYCH: no Suicidal Ideation no Depression SKIN: no Rashes ENDO: no Polyuria or Polydipsia no Hot/Cold Intolerance MU SK: no Arthraigia no Myalgia Physical Exam Physical Exam General Appearance: Awake Alert Oriented x 3 In no Distress Eyes: VIsion Unchanged Conjunctiva Normal EN: No EN Drainage Mucous Memb. moist Neck: no JVD min JVP Supple no Thyromegaly CVS: S1 S2 + Murmur No Gallop No Rub no Edema Resp: no Rales no Rhonchi no Acc. Muscle use GI: BAS +ve NO Bruit Non Tender Non Distended - obese : no CVA tenderness; no Suprapubic Tenderness SKIN: no Rashes Breast Exam deferred Mu.Sk: Adequate ROM no Muscle Atrophy Heme: Unable to palpate Obvious LAD no palp Splenomegaly NEURO: Good Strength and Tone Cranial Nerves II - XII grossly intact Psych: no Depressed no Active hallucination Vital Signs Vital Signs Date Time Temp Pulse Resp B/P Pulse Ox O2 Delivery O2 Flow Rate FiO2 05/31/16 17:22 98 198/92 05/31/16 16:16 20 05/31/16 15:16 97 Nasal Cannula 4.0 05/31/16 12:02 98.3 98.3 Assessment & Plan ESRD Current FLuid and E-lyte status does not necessitate emergent need for Dialysis. Will re-evaluate for Dialysis in am and continue on MWF schedule. Anemia: Epogen Transfuse with next HD as needed. SOB - suspect mostly COPD exac related; Will challenge Dry wt in HD in am Malignant HTN: Current BP meds reviewed. reval once restarted See orders for changes. [facility]: Follow as OP. Will follow Phos here and alter binder regimne based on PO intake. HypoAlbuminemia - check Pre-Albumin Discussed Plan of Care and prognosis etc. at length with family. Labs Labs Laboratory Tests Test 05/31/16 12:55 White Blood Count 10.4x10^3/uL (4.0-11.0) Red Blood Count 3.57x10^6/uL (3.50-5.40) Hemoglobin 11.3g/dL (12.0-15.5) Hematocrit 34.5% (36.0-47.0) Mean Corpuscular Volume 97fL (79-100) Mean Corpuscular Hemoglobin 32pg (25-35) Mean Corpuscular Hemoglobin Concent 33g/dL (31-37) Red Cell Distribution Width 17.2% (11.5-14.5) Platelet Count 238x10^3/uL (140-400) Neutrophils (%) (Auto) 83% (31-73) Lymphocytes (%) (Auto) 8% (24-48) Monocytes (%) (Auto) 9% (0-9) Eosinophils (%) (Auto) 0% (0-3) Basophils (%) (Auto) 0% (0-3) Neutrophils # (Auto) 8.6x10^3uL (1.8-7.7) Lymphocytes # (Auto) 0.8x10^3/uL (1.0-4.8) Monocytes # (Auto) 0.9x10^3/uL (0.0-1.1) Eosinophils # (Auto) 0.0x10^3/uL (0.0-0.7) Basophils # (Auto) 0.0x10^3/uL (0.0-0.2) Sodium Level 142mmol/L (136-145) Potassium Level 4.3mmol/L (3.5-5.1) Chloride Level 107mmol/L (98-107) Carbon Dioxide Level 28mmol/L (21-32) Anion Gap 7 (6-14) Blood Urea Nitrogen 25mg/dL (7-20) Creatinine 4.0mg/dL (0.6-1.0) Estimated GFR (Cockcroft-Gault) 13.3 Glucose Level 193mg/dL (70-99) Calcium Level 8.4mg/dL (8.5-10.1) Total Bilirubin 0.7mg/dL (0.2-1.0) Direct Bilirubin 0.1mg/dL (0.0-0.2) Aspartate Amino Transf (AST/SGOT) 26U/L (15-37) Alanine Aminotransferase (ALT/SGPT) 42U/L (14-59) Alkaline Phosphatase 99U/L (46-116) Troponin I Quantitative 0.091ng/mL (0.000-0.055) FF-Bhr-C-Type Natriuretic Peptide > 30468od/mL (0-124) Total Protein 5.8g/dL (6.4-8.2) Albumin 2.5g/dL (3.4-5.0) Lipase 179U/L (73-393) Laboratory Tests Test 05/31/16 12:55 White Blood Count 10.4x10^3/uL (4.0-11.0) Red Blood Count 3.57x10^6/uL (3.50-5.40) Hemoglobin 11.3g/dL (12.0-15.5) Hematocrit 34.5% (36.0-47.0) Mean Corpuscular Volume 97fL (79-100) Mean Corpuscular Hemoglobin 32pg (25-35) Mean Corpuscular Hemoglobin Concent 33g/dL (31-37) Red Cell Distribution Width 17.2% (11.5-14.5) Platelet Count 238x10^3/uL (140-400) Neutrophils (%) (Auto) 83% (31-73) Lymphocytes (%) (Auto) 8% (24-48) Monocytes (%) (Auto) 9% (0-9) Eosinophils (%) (Auto) 0% (0-3) Basophils (%) (Auto) 0% (0-3) Neutrophils # (Auto) 8.6x10^3uL (1.8-7.7) Lymphocytes # (Auto) 0.8x10^3/uL (1.0-4.8) Monocytes # (Auto) 0.9x10^3/uL (0.0-1.1) Eosinophils # (Auto) 0.0x10^3/uL (0.0-0.7) Basophils # (Auto) 0.0x10^3/uL (0.0-0.2) Sodium Level 142mmol/L (136-145) Potassium Level 4.3mmol/L (3.5-5.1) Chloride Level 107mmol/L (98-107) Carbon Dioxide Level 28mmol/L (21-32) Anion Gap 7 (6-14) Blood Urea Nitrogen 25mg/dL (7-20) Creatinine 4.0mg/dL (0.6-1.0) Estimated GFR (Cockcroft-Gault) 13.3 Glucose Level 193mg/dL (70-99) Calcium Level 8.4mg/dL (8.5-10.1) Total Bilirubin 0.7mg/dL (0.2-1.0) Direct Bilirubin 0.1mg/dL (0.0-0.2) Aspartate Amino Transf (AST/SGOT) 26U/L (15-37) Alanine Aminotransferase (ALT/SGPT) 42U/L (14-59) Alkaline Phosphatase 99U/L (46-116) Troponin I Quantitative 0.091ng/mL (0.000-0.055) AU-Sut-J-Type Natriuretic Peptide > 15530xe/mL (0-124) Total Protein 5.8g/dL (6.4-8.2) Albumin 2.5g/dL (3.4-5.0) Lipase 179U/L (73-393) Images Images COMPARISON: 05/26/2016. FINDINGS: A frontal view of the chest is obtained. Hyperinflation is consistent with chronic obstructive pulmonary disease. Blunting of the right costophrenic angle suggests a small pleural effusion. Enlargement of the central pulmonary arteries is consistent with pulmonary arterial hypertension. The heart is moderately enlarged. There are atherosclerotic calcifications of the aorta. There is bilateral rotator cuff arthropathy. IMPRESSION: 1. Moderate cardiomegaly. Small right pleural effusion. 2. Hyperinflation suggests chronic obstructive pulmonary disease. The left ventricular systolic function is normal. The Ejection Fraction is 55%. There is normal LV segmental wall motion. Transmitral Doppler flow pattern is Grade I-abnormal relaxation pattern. The left atrium is moderately dilated. Mild to moderate mitral regurgitation. Moderate tricuspid regurgitation. The pulmonary artery systolic pressure is estimated at 87 mmHg. There is severe pulmonary hypertension. There is no evidence of significant pericardial effusion. WENDI SUAREZ MD May 31, 2016 18:08
[2016-05-31] MEDS ORDERED: MAGNESIUM SULFATE 2GM 50 ML IV PRN (18:15)
[2016-05-31] MEDS: ASPIRIN ENTERIC COATED 81 MG TABLET.DR. PO SCH (18:53)
[2016-05-31 19:00] VITALS: BP 99/69
--- NOTE | 2016-05-31 20:15 | EKG ---
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
[2016-05-31] MEDS: ATORVASTATIN CALCIUM 10 MG TABLET. PO SCH (20:19)
--- NOTE | 2016-05-31 21:34 | HP ---
ADMIT DATE: 05/31/2016 CHIEF COMPLAINT: Shortness of breath. HISTORY OF PRESENT ILLNESS: A 70-year-old -[place] female with prior history of end-stage renal disease and coronary artery disease, presented to the ER with complaints of shortness of breath progressively getting worse for last 3 weeks. Recently, she was seen in Cardiology Clinic. At that time, her Lasix was stopped; however, the patient noticed some increase in size of her lower extremities and worsening shortness of breath. She denies any chest pain or any other complaints. She denies any noncompliance with hemodialysis. REVIEW OF SYSTEMS: Please see my electronic H and P. LABORATORY DATA: Sodium 142, potassium 4.3, chloride is 107, carbon dioxide 28, BUN is 25, creatinine 4.0, glucose 193, calcium is 8.4. Troponin 0.091. BNP is 35,000. Hematology: Hemoglobin is 11.3, MCV is 97, platelets 238. IMAGING STUDIES: 1. Chest x-ray showed mild cardiomegaly with small right pleural effusion. 2. EKG not able to review personally as per the ER report, no acute ST-T wave changes seen. ASSESSMENT AND PLAN: 1. Ficph-nu-jbxqzhf congestive heart failure. 2. Elevated troponins. 3. Rfscy-cu-ivhdsac respiratory failure. 4. Prior history of coronary artery disease. 5. Diabetes mellitus with hyperglycemia. 6. Accelerated hypertension. 7. History of peripheral artery disease. 8. Hyperlipidemia. PLAN: She received Lasix in the ER and I will try one more time and monitor intake and output. Cardiology has been consulted. Monitor troponins. 1. Nephrology consultation for a hemodialysis, scheduled for tomorrow. 2. She has a stress test in 2015. I will hold off any stress test or coronary angiogram at this time. We will wait for Cardiology recommendations. 3. Monitor electrolytes. 4. Sliding scale insulin. 5. Home medications discussed with RN and needs to verify. 6. P.r.n. hydralazine for hypertension. 7. Supportive care. MARISSA WOOD MD DR: JUAN JOSE/courtney JOB#: [id number] / [id number]
[2016-05-31] MEDS: INSULIN ASPART 300 UNITS/3 ML INSULN.PEN SQ SCH (22:31)
[2016-05-31 23:00] VITALS: BP 169/70
[2016-06-01 03:21] VITALS: BP 117/80
[2016-06-01 07:00] VITALS: BP 153/61
[2016-06-01 07:13] LABS: BASO % 0 % (0-3); EOS % 1 % (0-3); HEMATOCRIT 33.4 % (36.0-47.0); HEMOGLOBIN 10.3 g/dL (12.0-15.5); LYMPH # 0.9 x10^3/uL (1.0-4.8); LYMPH % 13 % (24-48); MEAN CORPUSCULAR HEMOGLOBIN 31 pg (25-35); MEAN CORPUSCULAR HGB CONC 31 g/dL (31-37); MEAN CORPUSCULAR VOLUME 100 fL (79-100); MONO % 11 % (0-9); NEUT % 76 % (31-73); PLATELET COUNT 226 x10^3/uL (140-400); RED BLOOD COUNT 3.34 x10^6/uL (3.50-5.40); RED CELL DISTRIBUTION WIDTH 17.7 % (11.5-14.5); WHITE BLOOD COUNT 7.5 x10^3/uL (4.0-11.0)
[2016-06-01] MEDS: IPRATRPIUM/ALBUTEROL 0.5/2.5MG 3 ML NEBU. NEB SCH ×4 (07:39→18:12)
[2016-06-01 07:46] LABS: ALBUMIN 2.2 g/dL (3.4-5.0); CALCIUM 8.1 mg/dL (8.5-10.1); CREATININE 4.8 mg/dL (0.6-1.0); GFR 10.8; PHOSPHORUS 2.8 mg/dL (2.6-4.7)
[2016-06-01] MEDS: INSULIN ASPART 300 UNITS/3 ML INSULN.PEN SQ SCH ×4 (08:00→21:00)
[2016-06-01] MEDS: POTASSIUM CHLORIDE 20 MEQ TABLET.ER. PO SCH (08:00)
[2016-06-01] MEDS: ASPIRIN ENTERIC COATED 81 MG TABLET.DR. PO SCH (08:00)
--- NOTE | 2016-06-01 08:44 | PDOC ---
Provider Note Provider Note dictated r/o SHEILA IRVIN MD Jun 01, 2016 08:44
[2016-06-01] MEDS: CLOPIDOGREL BISULFATE 75 MG TABLET PO SCH (09:00)
[2016-06-01] MEDS: METOLAZONE 2.5 MG TABLET PO SCH (09:00)
[2016-06-01] MEDS: METOPROLOL TART IMMED RELEASE 50 MG TABLET PO SCH ×2 (09:00→21:17)
[2016-06-01] MEDS: LISINOPRIL 20 MG TABLET PO SCH (09:00)
[2016-06-01] MEDS: FUROSEMIDE 40 MG/4 ML VIAL IVP SCH (09:00)
--- NOTE | 2016-06-01 09:50 | CONS ---
DATE OF CONSULTATION: ATTENDING PHYSICIAN: Dr. Amezcua. REASON FOR CONSULTATION: Dyspnea. HISTORY OF PRESENT ILLNESS: The patient is a 70-year-old -[place] female with prior history of end-stage renal disease and coronary artery disease. She presented to the Emergency Room with complaint of shortness of breath, which was getting worse for the last few weeks. She is chronically on 4 liters of oxygen. The patient also has obstructive sleep apnea for which she is not using her CPAP. The patient says she had some lower extremity edema, which is improving slowly. No chest pain. No headaches. No nausea, vomiting, no diarrhea. I have reviewed the patient's chest x-ray shows prominent pulmonary arteries, but no obvious CHF. There was a tiny right pleural effusion. There was cardiomegaly. The patient had an echocardiogram done on 05/17/2016, it shows pulmonary artery systolic pressure of 87 with an EF of 55%. Interestingly, echo done on 01/21/2016 had a pulmonary artery systolic pressure of 41. She is requiring 4 liters of oxygen, which is her baseline. PAST MEDICAL HISTORY: Significant for: 1. History of congestive heart failure, probably diastolic. 2. History of pulmonary hypertension, recently worse PA pressures on echo. 3. History of tobacco use for 40 years and underlying COPD. 4. History of chronic respiratory failure. 5. Diabetes. 6. Peripheral artery disease and hyperlipidemia. PAST SURGICAL HISTORY: No recent surgery. ALLERGIES: IODINE. REVIEW OF SYSTEMS: Twelve-point systems obtained, pertinent positives discussed in history of present illness, otherwise noncontributory. All systems that were negative were reviewed as well. MEDICATIONS: All reviewed as listed in the MRAD. FAMILY HISTORY: Noncontributory to lungs. PHYSICAL EXAMINATION: VITAL SIGNS: Blood pressure was 169 systolic and now it is 117, afebrile, pulse ox 99% on 4 liters. HEENT: Sclerae nonicteric. NECK: Supple. LUNGS: With diminished breath sounds. No crackles, no wheezes. CARDIOVASCULAR: Regular rate and rhythm. ABDOMEN: Soft, obese. EXTREMITIES: With no pitting edema. LABORATORY DATA: Reviewed. White cell count 7.5, hemoglobin 10.3 and platelets are 226. BUN is 32 and a creatinine of 4.8. Albumin 2.2. IMPRESSION: 1. Dyspnea with chronic hypoxic respiratory failure. The etiology of dyspnea could be multifactorial and may be related to acute exacerbation of chronic obstructive pulmonary disease. The chest x-ray does not show any obvious congestive heart failure or pneumonia. There is almost doubling of the pulmonary artery pressures that were recorded on the echo based on her report from January with a PA pressure of 41 to recently with a PA pressure in the 80s. I would obtain a V/Q scan to make sure there is no thromboembolic disease. 2. Underlying oxygen dependent chronic obstructive pulmonary disease with mild exacerbation. 3. End-stage renal disease, on hemodialysis. 4. Accelerated hypertension, present on admission. 5. Possible yepnd-fw-qfcwzik diastolic heart failure. RECOMMENDATIONS: 1. Continue with hemodialysis the ultrafiltration. 2. Obtain V/Q scan. 3. Continue oxygen 4 liters. 4. I have emphasized the importance of using CPAP, but due to noncompliance machine is going to be taken away. 5. Continue bronchodilators. 6. Further recommendations to follow. SHEILA ZHENG MD DR: AJITH/courtney JOB#: [id number] / [id number] MARISSA Arzate MD
[2016-06-01 11:00] VITALS: BP 168/76
--- NOTE | 2016-06-01 11:28 | CONS ---
DATE OF CONSULTATION: PRIMARY PHYSICIAN: Dr. Amezcua. REASON FOR CONSULTATION: ESRD dialysis. HISTORY OF PRESENT ILLNESS: The patient is a pleasant 70-year-old -Citizen Of [place] female followed by Dr. Mccullough for ESRD needs. She dialyzes Monday, Monday and Monday. For the last 3 days, she has been having increasing shortness of breath, cough and has been admitted with possible pneumonia versus COPD exacerbation through the ER. She claims she has been bringing up some clear phlegm. She has not had any cramping for dialysis. She was given Lasix. She is scheduled to see a fire crew specialist this , i.e., day after tomorrow. Her shortness of breath is worse with exertion and she did have some chest pain associated with it also. In this setting, she was admitted to the hospital. We were asked to consult for routine dialysis. For rest of the details, see electronic records. WENDI SUAREZ MD DR: MARNI/courtney JOB#: [id number] / [id number]
--- NOTE | 2016-06-01 12:18 | PDOC ---
CARDIO Progress Notes Date and Time Date of Service 06/01/2016 Time of Evaluation 1218 Subjective Subjective: No Chest Pain, No shortness of breath, No Palpitations, No Dizziness, Other (feels better) Vitals Vitals Vital Signs Date Time Temp Pulse Resp B/P Pulse Ox O2 Delivery O2 Flow Rate FiO2 06/01/16 11:13 Nasal Cannula 3.0 06/01/16 11:00 99.3 88 18 168/76 98 99.3 Weight Weight [ ] Input and Output Intake and Output Intake and Output 06/01/16 07:00 Output Total 350 ml Balance -350 ml Output Urine Total 350 ml # Voids 1 # Bowel Movements 1 Laboratory Labs Laboratory Tests Test 05/31/16 12:55 05/31/16 19:35 05/31/16 21:09 06/01/16 06:45 White Blood Count 10.4x10^3/uL (4.0-11.0) 7.5x10^3/uL (4.0-11.0) Red Blood Count 3.57x10^6/uL (3.50-5.40) 3.34x10^6/uL (3.50-5.40) Hemoglobin 11.3g/dL (12.0-15.5) 10.3g/dL (12.0-15.5) Hematocrit 34.5% (36.0-47.0) 33.4% (36.0-47.0) Mean Corpuscular Volume 97fL (79-100) 100fL (79-100) Mean Corpuscular Hemoglobin 32pg (25-35) 31pg (25-35) Mean Corpuscular Hemoglobin Concent 33g/dL (31-37) 31g/dL (31-37) Red Cell Distribution Width 17.2% (11.5-14.5) 17.7% (11.5-14.5) Platelet Count 238x10^3/uL (140-400) 226x10^3/uL (140-400) Neutrophils (%) (Auto) 83% (31-73) 76% (31-73) Lymphocytes (%) (Auto) 8% (24-48) 13% (24-48) Monocytes (%) (Auto) 9% (0-9) 11% (0-9) Eosinophils (%) (Auto) 0% (0-3) 1% (0-3) Basophils (%) (Auto) 0% (0-3) 0% (0-3) Neutrophils # (Auto) 8.6x10^3uL (1.8-7.7) 5.7x10^3uL (1.8-7.7) Lymphocytes # (Auto) 0.8x10^3/uL (1.0-4.8) 0.9x10^3/uL (1.0-4.8) Monocytes # (Auto) 0.9x10^3/uL (0.0-1.1) 0.8x10^3/uL (0.0-1.1) Eosinophils # (Auto) 0.0x10^3/uL (0.0-0.7) 0.1x10^3/uL (0.0-0.7) Basophils # (Auto) 0.0x10^3/uL (0.0-0.2) 0.0x10^3/uL (0.0-0.2) Sodium Level 142mmol/L (136-145) 144mmol/L (136-145) Potassium Level 4.3mmol/L (3.5-5.1) 5.0mmol/L (3.5-5.1) Chloride Level 107mmol/L (98-107) 110mmol/L (98-107) Carbon Dioxide Level 28mmol/L (21-32) 28mmol/L (21-32) Anion Gap 7 (6-14) 6 (6-14) Blood Urea Nitrogen 25mg/dL (7-20) 32mg/dL (7-20) Creatinine 4.0mg/dL (0.6-1.0) 4.8mg/dL (0.6-1.0) Estimated GFR (Cockcroft-Gault) 13.3 10.8 Glucose Level 193mg/dL (70-99) 137mg/dL (70-99) Calcium Level 8.4mg/dL (8.5-10.1) 8.1mg/dL (8.5-10.1) Total Bilirubin 0.7mg/dL (0.2-1.0) Direct Bilirubin 0.1mg/dL (0.0-0.2) Aspartate Amino Transf (AST/SGOT) 26U/L (15-37) Alanine Aminotransferase (ALT/SGPT) 42U/L (14-59) Alkaline Phosphatase 99U/L (46-116) Troponin I Quantitative 0.091ng/mL (0.000-0.055) 0.079ng/mL (0.000-0.055) 0.071ng/mL (0.000-0.055) TW-Hbs-Y-Type Natriuretic Peptide > 57282vi/mL (0-124) Total Protein 5.8g/dL (6.4-8.2) Albumin 2.5g/dL (3.4-5.0) 2.2g/dL (3.4-5.0) Lipase 179U/L (73-393) Glucose (Fingerstick) 241mg/dL (70-99) Phosphorus Level 2.8mg/dL (2.6-4.7) Magnesium Level 1.8mg/dL (1.8-2.4) Test 06/01/16 08:03 Glucose (Fingerstick) 132mg/dL (70-99) Physical Exam HEENT: Neck Supple W Full Motion Chest: Symmetric LUNGS: Other (coarse, scattered rhonchii) Heart: RRR, murmurs Abdomen: Soft N/T, Other (LG) Neurology: alert, oriented, follow commands Assessment Assessment 1. Acute on chronic diastolic heart failure, decompensated Recent echo with LVEF 55% fluid management per HD diuretics not given to day due to VQ scan 2. Mildly elevated troponin peaked @ 0.091 in the setting of acute HF and renal failure MPI 05/26 with no evidence of ischemia likely demand related 3. Acute on chronic respiratory failure with AE COPD VQ scan pending 4. CAD s/p PCI/MALLORIE to RCA no anginal symptoms continue secondary management with BB, ASA and statin therapy 5. PVD s/p SOLAR ELECTRIC/PHOTOVOLTAIC INSTALLER/stent placement to left common iliac artery. no claudication 6. Hypertension uncontrolled today as a.m. meds not given treat with prn hydralazine 7. Hyperlipidemia LDLs = 86; 01/2016 continue statin therapy 8. Chronic renal failure with HD per nephrology CHANTEL HIGGINBOTHAM CRAYON SAWYER Jun 01, 2016 12:18
[2016-06-01] MEDS: ALPRAZOLAM 0.25 MG TABLET PO PRN (12:40)
[2016-06-01] MEDS ORDERED: GUAIFENESIN DM 200MG/20MG 10 ML SYRUP. PO PRN (12:45)
--- NOTE | 2016-06-01 12:57 | PDOC ---
PROGRESS NOTES Chief Complaint Chief Complaint Shortness of breath ASSESSMENT AND PLAN: 1. Exzmx-gh-mkzdvfx congestive heart failure. 2. troponin elevation in ESRD 3. Gwtdm-jx-yugvnsx respiratory failure. hypoxia 4. Prior history of coronary artery disease. 5. Diabetes mellitus with hyperglycemia. 6. Accelerated hypertension. 7. History of peripheral artery disease. 8. Hyperlipidemia. History of Present Illness History of Present Illness Lasix, HD VQ scan today feels better, some coughing, add anti-tussive cont current poor po intake, meal sups added Vitals Vitals Vital Signs Date Time Temp Pulse Resp B/P Pulse Ox O2 Delivery O2 Flow Rate FiO2 06/01/16 12:40 88 168/76 06/01/16 11:13 Nasal Cannula 3.0 06/01/16 11:00 99.3 18 98 99.3 Physical Exam General: Alert, Oriented X3, Cooperative, No acute distress Heart: Regular rate, Normal S1, Normal S2, Other (2/6 systolic murmur ) Lungs: Clear Abdomen: Soft Extremities: No clubbing, Other (1+ LLE edema, trace RLE edema, 1+ bilateral DP pulses ) Skin: No breakdown, No significant lesion Labs LABS Laboratory Tests Test 05/31/16 19:35 05/31/16 21:09 06/01/16 06:45 06/01/16 08:03 Troponin I Quantitative 0.079ng/mL (0.000-0.055) 0.071ng/mL (0.000-0.055) Glucose (Fingerstick) 241mg/dL (70-99) 132mg/dL (70-99) White Blood Count 7.5x10^3/uL (4.0-11.0) Red Blood Count 3.34x10^6/uL (3.50-5.40) Hemoglobin 10.3g/dL (12.0-15.5) Hematocrit 33.4% (36.0-47.0) Mean Corpuscular Volume 100fL (79-100) Mean Corpuscular Hemoglobin 31pg (25-35) Mean Corpuscular Hemoglobin Concent 31g/dL (31-37) Red Cell Distribution Width 17.7% (11.5-14.5) Platelet Count 226x10^3/uL (140-400) Neutrophils (%) (Auto) 76% (31-73) Lymphocytes (%) (Auto) 13% (24-48) Monocytes (%) (Auto) 11% (0-9) Eosinophils (%) (Auto) 1% (0-3) Basophils (%) (Auto) 0% (0-3) Neutrophils # (Auto) 5.7x10^3uL (1.8-7.7) Lymphocytes # (Auto) 0.9x10^3/uL (1.0-4.8) Monocytes # (Auto) 0.8x10^3/uL (0.0-1.1) Eosinophils # (Auto) 0.1x10^3/uL (0.0-0.7) Basophils # (Auto) 0.0x10^3/uL (0.0-0.2) Sodium Level 144mmol/L (136-145) Potassium Level 5.0mmol/L (3.5-5.1) Chloride Level 110mmol/L (98-107) Carbon Dioxide Level 28mmol/L (21-32) Anion Gap 6 (6-14) Blood Urea Nitrogen 32mg/dL (7-20) Creatinine 4.8mg/dL (0.6-1.0) Estimated GFR (Cockcroft-Gault) 10.8 Glucose Level 137mg/dL (70-99) Calcium Level 8.1mg/dL (8.5-10.1) Phosphorus Level 2.8mg/dL (2.6-4.7) Magnesium Level 1.8mg/dL (1.8-2.4) Albumin 2.2g/dL (3.4-5.0) Test 06/01/16 11:14 Glucose (Fingerstick) 200mg/dL (70-99) Review of Systems Review of Systems cough insomnia weakness nausea, poor appetite Assessment and Plan Assessmemt and Plan Problems Medical Problems: (1) CHF exacerbation Status: Acute (2) COPD (chronic obstructive pulmonary disease) Status: Acute (3) Dyspnea Status: Acute Problems: Comment Review of Relevant I have reviewed the following items mykel (where applicable) has been applied. Labs Laboratory Tests Test 05/31/16 12:55 05/31/16 19:35 05/31/16 21:09 06/01/16 06:45 White Blood Count 10.4x10^3/uL (4.0-11.0) 7.5x10^3/uL (4.0-11.0) Red Blood Count 3.57x10^6/uL (3.50-5.40) 3.34x10^6/uL (3.50-5.40) Hemoglobin 11.3g/dL (12.0-15.5) 10.3g/dL (12.0-15.5) Hematocrit 34.5% (36.0-47.0) 33.4% (36.0-47.0) Mean Corpuscular Volume 97fL (79-100) 100fL (79-100) Mean Corpuscular Hemoglobin 32pg (25-35) 31pg (25-35) Mean Corpuscular Hemoglobin Concent 33g/dL (31-37) 31g/dL (31-37) Red Cell Distribution Width 17.2% (11.5-14.5) 17.7% (11.5-14.5) Platelet Count 238x10^3/uL (140-400) 226x10^3/uL (140-400) Neutrophils (%) (Auto) 83% (31-73) 76% (31-73) Lymphocytes (%) (Auto) 8% (24-48) 13% (24-48) Monocytes (%) (Auto) 9% (0-9) 11% (0-9) Eosinophils (%) (Auto) 0% (0-3) 1% (0-3) Basophils (%) (Auto) 0% (0-3) 0% (0-3) Neutrophils # (Auto) 8.6x10^3uL (1.8-7.7) 5.7x10^3uL (1.8-7.7) Lymphocytes # (Auto) 0.8x10^3/uL (1.0-4.8) 0.9x10^3/uL (1.0-4.8) Monocytes # (Auto) 0.9x10^3/uL (0.0-1.1) 0.8x10^3/uL (0.0-1.1) Eosinophils # (Auto) 0.0x10^3/uL (0.0-0.7) 0.1x10^3/uL (0.0-0.7) Basophils # (Auto) 0.0x10^3/uL (0.0-0.2) 0.0x10^3/uL (0.0-0.2) Sodium Level 142mmol/L (136-145) 144mmol/L (136-145) Potassium Level 4.3mmol/L (3.5-5.1) 5.0mmol/L (3.5-5.1) Chloride Level 107mmol/L (98-107) 110mmol/L (98-107) Carbon Dioxide Level 28mmol/L (21-32) 28mmol/L (21-32) Anion Gap 7 (6-14) 6 (6-14) Blood Urea Nitrogen 25mg/dL (7-20) 32mg/dL (7-20) Creatinine 4.0mg/dL (0.6-1.0) 4.8mg/dL (0.6-1.0) Estimated GFR (Cockcroft-Gault) 13.3 10.8 Glucose Level 193mg/dL (70-99) 137mg/dL (70-99) Calcium Level 8.4mg/dL (8.5-10.1) 8.1mg/dL (8.5-10.1) Total Bilirubin 0.7mg/dL (0.2-1.0) Direct Bilirubin 0.1mg/dL (0.0-0.2) Aspartate Amino Transf (AST/SGOT) 26U/L (15-37) Alanine Aminotransferase (ALT/SGPT) 42U/L (14-59) Alkaline Phosphatase 99U/L (46-116) Troponin I Quantitative 0.091ng/mL (0.000-0.055) 0.079ng/mL (0.000-0.055) 0.071ng/mL (0.000-0.055) JI-Oxq-M-Type Natriuretic Peptide > 60571yg/mL (0-124) Total Protein 5.8g/dL (6.4-8.2) Albumin 2.5g/dL (3.4-5.0) 2.2g/dL (3.4-5.0) Lipase 179U/L (73-393) Glucose (Fingerstick) 241mg/dL (70-99) Phosphorus Level 2.8mg/dL (2.6-4.7) Magnesium Level 1.8mg/dL (1.8-2.4) Test 06/01/16 08:03 06/01/16 11:14 Glucose (Fingerstick) 132mg/dL (70-99) 200mg/dL (70-99) Laboratory Tests Test 05/31/16 19:35 05/31/16 21:09 06/01/16 06:45 06/01/16 08:03 Troponin I Quantitative 0.079ng/mL (0.000-0.055) 0.071ng/mL (0.000-0.055) Glucose (Fingerstick) 241mg/dL (70-99) 132mg/dL (70-99) White Blood Count 7.5x10^3/uL (4.0-11.0) Red Blood Count 3.34x10^6/uL (3.50-5.40) Hemoglobin 10.3g/dL (12.0-15.5) Hematocrit 33.4% (36.0-47.0) Mean Corpuscular Volume 100fL (79-100) Mean Corpuscular Hemoglobin 31pg (25-35) Mean Corpuscular Hemoglobin Concent 31g/dL (31-37) Red Cell Distribution Width 17.7% (11.5-14.5) Platelet Count 226x10^3/uL (140-400) Neutrophils (%) (Auto) 76% (31-73) Lymphocytes (%) (Auto) 13% (24-48) Monocytes (%) (Auto) 11% (0-9) Eosinophils (%) (Auto) 1% (0-3) Basophils (%) (Auto) 0% (0-3) Neutrophils # (Auto) 5.7x10^3uL (1.8-7.7) Lymphocytes # (Auto) 0.9x10^3/uL (1.0-4.8) Monocytes # (Auto) 0.8x10^3/uL (0.0-1.1) Eosinophils # (Auto) 0.1x10^3/uL (0.0-0.7) Basophils # (Auto) 0.0x10^3/uL (0.0-0.2) Sodium Level 144mmol/L (136-145) Potassium Level 5.0mmol/L (3.5-5.1) Chloride Level 110mmol/L (98-107) Carbon Dioxide Level 28mmol/L (21-32) Anion Gap 6 (6-14) Blood Urea Nitrogen 32mg/dL (7-20) Creatinine 4.8mg/dL (0.6-1.0) Estimated GFR (Cockcroft-Gault) 10.8 Glucose Level 137mg/dL (70-99) Calcium Level 8.1mg/dL (8.5-10.1) Phosphorus Level 2.8mg/dL (2.6-4.7) Magnesium Level 1.8mg/dL (1.8-2.4) Albumin 2.2g/dL (3.4-5.0) Test 06/01/16 11:14 Glucose (Fingerstick) 200mg/dL (70-99) Medications Current Medications Albuterol/ Ipratropium (Duoneb) 3 ml 1X ONCE NEB Last administered on 12:30; Start 05/31/16 at 12:15; Stop 05/31/16 at 12:16; Status DC Furosemide (Lasix) 20 mg 1X ONCE IVP Last administered on 05/31/16 13:03; Start 05/31/16 at 12:15; Stop 05/31/16 at 12:16; Status DC Ondansetron HCl (Zofran) 4 mg PRN Q8HRS PRN IV NAUSEA/VOMITING; Start 05/31/16 at 13:30; Stop 05/31/16 at 22:15; Status DC Morphine Sulfate 2 mg PRN Q2HR PRN IV PAIN; Start 05/31/16 at 13:30; Stop 06/01 at 13:29 Albuterol/ Ipratropium (Duoneb) 3 ml RTQID NEB Last administered on 06/01/16 11:11; Start 05/31/16 at 16:00; Stop 06/01/16 at 15:59 Aspirin (Children'S Aspirin) 324 mg 1X ONCE PO Last administered on 05/31/16 13:50; Start 05/31/16 at 13:45; Stop 05/31/16 at 13:46; Status DC Furosemide (Lasix) 40 mg DAILY IVP Last administered on 05/31/16 17:21; Start 05/31/16 at 16:30 Aspirin (Hung Aspirin) 81 mg DAILY PO ; Start 05/31/16 at 17:00; Stop 05/31/16 at 17:36; Status DC Atorvastatin Calcium (Lipitor) 30 mg QHS PO Last administered on 05/31/16 20: 19; Start 05/31/16 at 21:00 Clopidogrel Bisulfate (Plavix) 75 mg DAILY PO Last administered on 05/31/16 17 :21; Start 05/31/16 at 17:00 Lisinopril (Prinivil) 20 mg DAILY PO Last administered on 05/31/16 17:22; Start 05/31/16 at 17:00 Metolazone (Zaroxolyn) 2.5 mg DAILY PO Last administered on 05/31/16 17:21; Start 05/31/16 at 17:00 Potassium Chloride (Klor-Con) 20 meq DAILYWBKFT PO Last administered on 17:21; Start 05/31/16 at 17:00 Metoprolol Tartrate (Lopressor) 50 mg BID PO Last administered on 05/31/16 22: 27; Start 05/31/16 at 17:00 Hydralazine HCl (Apresoline) 10 mg PRN Q4HRS PRN IVP ELEVATED BP, SEE COMMENTS Last administered on 06/01/16 12:40; Start 05/31/16 at 16:30 Acetaminophen (Tylenol) 325 mg PRN Q6HRS PRN PO MILD PAIN / TEMP; Start at 17:15 Acetaminophen/ Hydrocodone Bitart (Lortab 5/325) 1 tab PRN Q6HRS PRN PO MODERATE TO SEVERE PAIN Last administered on 05/31/16 20:20; Start 05/31/16 at 17:15 Hydralazine HCl (Apresoline) 10 mg PRN Q4HRS PRN IVP ELEVATED BP, SEE COMMENTS ; Start 05/31/16 at 17:15 Ondansetron HCl (Zofran) 4 mg PRN Q8HRS PRN IV NAUSEA/VOMITING; Start 05/31/16 at 17:15 Albuterol Sulfate (Ventolin Neb Soln) 2.5 mg PRN Q4HRS PRN NEB SHORTNESS OF BREATH; Start 05/31/16 at 17:15 Furosemide (Lasix) 20 mg 1X ONCE IVP ; Start 05/31/16 at 17:15; Stop 05/31/16 at 17:17; Status DC Aspirin (Ecotrin) 81 mg DAILYWBKFT PO Last administered on 05/31/16 18:53; Start 05/31/16 at 17:45 Insulin Aspart (Novolog) 0-9 UNITS TIDWMEALS SQ ; Start 06/01/16 at 08:00 Dextrose 12.5 gm 12.5 gm PRN Q15MIN PRN IV SEE COMMENTS; Start 05/31/16 at 17: 45; Stop 05/31/16 at 22:14; Status DC Magnesium Sulfate/ Dextrose (Magnesium Sulfate PREMIX 2GM) 50 ml @ 25 mls/hr PRN DAILY PRN IV for Mag < 1.7 on am labs; Start 05/31/16 at 18:15 Alprazolam (Xanax) 0.25 mg PRN Q8HRS PRN PO ANXIETY / AGITATION Last administered on 06/01/16t 12:40; Start 05/31/16 at 22:15 Insulin Aspart (Novolog) 0-5 UNITS QHS SQ Last administered on 05/31/16t 22:31 ; Start 05/31/16 at 22:15 Dextrose 12.5 gm PRN Q15MIN PRN IV SEE COMMENTS; Start 05/31/16 at 22:15 Guaifenesin (Robitussin Dm) 10 ml PRN Q6HRS PRN PO COUGH; Start 06/01/16 at 12: 45 Active Scripts Active Lisinopril 20 Mg Tablet 20 Tab PO DAILY Klor-Con M20 (Potassium Chloride) 20 Meq Tab.er.prt 20 Meq PO DAILYWBKFT Guaifenesin-Codeine Syrup (Guaifenesin/Codeine Phosphate) 5 Ml Liquid 5 Ml PO PRN Q6HRS PRN [Albuterol Sulfate] 2.5 MG/3 ML Nebu 2.5 Mg NEB PRN Q4HRS PRN Tradjenta (Linagliptin) 5 Mg Tablet 5 Mg PO DAILY Reported Lantus Solostar (Insulin Glargine,Hum.rec.anlog) 100 Unit/1 Ml Insuln.pen 20 Unit SQ QHS Marina-Jayme Tablet (Folic Acid/Vitamin B Comp W-C) 0.8 Mg Tablet 0.8 Mg PO Metolazone 2.5 Mg Tablet 2.5 Mg PO DAILY Metoprolol Tartrate 50 Mg Tablet 1 Tab PO TID Atorvastatin Calcium 20 Mg Tablet 30 Mg PO DAILY Aspirin 325 Mg Tablet 1 Tab PO DAILY Tolterodine Tartrate 2 Mg Tablet 4 Mg PO DAILY Plavix (Clopidogrel Bisulfate) 75 Mg Tablet 75 Mg PO DAILY Vitals/I & O Vital Sign - Last 24 Hours 05/31/16 05/31/16 05/31/16 05/31/16 13:02 13:03 13:51 15:16 Pulse 92 94 97 Resp B/P 197/121 199/95 196/93 Pulse Ox 98 99 98 97 O2 Delivery Nasal Cannula Nasal Cannula Nasal Cannula Nasal Cannula O2 Flow Rate 3 3 4.0 05/31/16 05/31/16 05/31/16 05/31/16 16:16 17:22 17:22 19:00 Temp 99.3 99.3 Pulse 93 98 98 70 Resp 20 B/P 185/81 198/92 198/92 99/69 Pulse Ox 92 05/31/16 05/31/16 05/31/16 05/31/16 19:53 20:00 20:20 20:27 Pulse Ox 97 99 O2 Delivery Nasal Cannula Nasal Cannula Nasal Cannula Nasal Cannula O2 Flow Rate 3.0 4.0 3.0 4.0 05/31/16 05/31/16 05/31/16 06/01/16 21:20 22:27 23:00 03:21 Temp 97.9 98.4 97.9 98.4 Pulse 79 70 75 Resp 20 20 B/P 102/72 169/70 117/80 Pulse Ox 99 99 97 O2 Delivery Nasal Cannula Nasal Cannula Nasal Cannula O2 Flow Rate 4.0 06/01/16 06/01/16 06/01/16 06/01/16 07:00 07:40 08:00 11:00 Temp 98.3 99.3 98.3 99.3 Pulse 67 88 Resp 18 B/P 153/61 168/76 Pulse Ox 97 99 98 O2 Delivery Nasal Cannula Nasal Cannula Nasal Cannula O2 Flow Rate 3.0 4.0 4.0 3.0 06/01/16 06/01/16 11:13 12:40 Pulse 88 B/P 168/76 O2 Delivery Nasal Cannula O2 Flow Rate 3.0 Intake and Output 05/31/16 05/31/16 06/01/16 15:00 23:00 07:00 Output Total 350 ml Balance -350 ml JOSE ONEIL MD Jun 01, 2016 12:57
--- NOTE | 2016-06-01 14:29 | RAD ---
Ventilation/perfusion lung scan, 06/01/2016: History: Shortness of breath The ventilation study was performed utilizing 9.0 mCi of xenon-133. Activity in the lungs is heterogeneous. There is mild patchy retention of activity in both lungs on the washout phase. Perfusion imaging was performed utilizing 5.5 mCi of technetium 99m MAA. A similar pattern of activity is present in the lungs. No unmatched or segmental perfusion defects are seen. IMPRESSION: 1. Abnormal ventilation study suggesting obstructive pulmonary disease. 2. No VQ findings to suggest pulmonary emboli.
[2016-06-01] MEDS ORDERED: LIDOCAINE 1% PF 2 ML VIAL. ONE (14:46)
[2016-06-01] MEDS ORDERED: IV NORMAL SALINE 1000ML BAG 1,000 ML IV PRN ×2 (15:14)
[2016-06-01] MEDS ORDERED: ACETAMINOPHEN 500 MG TABLET PO PRN (15:15)
[2016-06-01] MEDS ORDERED: LIDOCAINE 1% PF 2 ML VIAL. INJ ONE (15:15)
[2016-06-01] MEDS ORDERED: DIALYSIS PATIENT. MC PRN ×2 (15:15)
[2016-06-01] MEDS ORDERED: DIPHENHYDRAMINE 50 MG/ML VIAL IV PRN ×2 (15:15)
--- NOTE | 2016-06-01 15:21 | PDOC ---
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 Vitals Vital Signs Vital Signs Date Time Temp Pulse Resp B/P Pulse Ox O2 Delivery O2 Flow Rate FiO2 06/01/16 15:16 Nasal Cannula 3.0 06/01/16 12:40 88 168/76 06/01/16 11:00 99.3 18 98 99.3 Labs Last Labs Laboratory Tests Test 05/31/16 12:55 05/31/16 19:35 05/31/16 21:09 06/01/16 06:45 White Blood Count 10.4x10^3/uL (4.0-11.0) 7.5x10^3/uL (4.0-11.0) Red Blood Count 3.57x10^6/uL (3.50-5.40) 3.34x10^6/uL (3.50-5.40) Hemoglobin 11.3g/dL (12.0-15.5) 10.3g/dL (12.0-15.5) Hematocrit 34.5% (36.0-47.0) 33.4% (36.0-47.0) Mean Corpuscular Volume 97fL (79-100) 100fL (79-100) Mean Corpuscular Hemoglobin 32pg (25-35) 31pg (25-35) Mean Corpuscular Hemoglobin Concent 33g/dL (31-37) 31g/dL (31-37) Red Cell Distribution Width 17.2% (11.5-14.5) 17.7% (11.5-14.5) Platelet Count 238x10^3/uL (140-400) 226x10^3/uL (140-400) Neutrophils (%) (Auto) 83% (31-73) 76% (31-73) Lymphocytes (%) (Auto) 8% (24-48) 13% (24-48) Monocytes (%) (Auto) 9% (0-9) 11% (0-9) Eosinophils (%) (Auto) 0% (0-3) 1% (0-3) Basophils (%) (Auto) 0% (0-3) 0% (0-3) Neutrophils # (Auto) 8.6x10^3uL (1.8-7.7) 5.7x10^3uL (1.8-7.7) Lymphocytes # (Auto) 0.8x10^3/uL (1.0-4.8) 0.9x10^3/uL (1.0-4.8) Monocytes # (Auto) 0.9x10^3/uL (0.0-1.1) 0.8x10^3/uL (0.0-1.1) Eosinophils # (Auto) 0.0x10^3/uL (0.0-0.7) 0.1x10^3/uL (0.0-0.7) Basophils # (Auto) 0.0x10^3/uL (0.0-0.2) 0.0x10^3/uL (0.0-0.2) Sodium Level 142mmol/L (136-145) 144mmol/L (136-145) Potassium Level 4.3mmol/L (3.5-5.1) 5.0mmol/L (3.5-5.1) Chloride Level 107mmol/L (98-107) 110mmol/L (98-107) Carbon Dioxide Level 28mmol/L (21-32) 28mmol/L (21-32) Anion Gap 7 (6-14) 6 (6-14) Blood Urea Nitrogen 25mg/dL (7-20) 32mg/dL (7-20) Creatinine 4.0mg/dL (0.6-1.0) 4.8mg/dL (0.6-1.0) Estimated GFR (Cockcroft-Gault) 13.3 10.8 Glucose Level 193mg/dL (70-99) 137mg/dL (70-99) Calcium Level 8.4mg/dL (8.5-10.1) 8.1mg/dL (8.5-10.1) Total Bilirubin 0.7mg/dL (0.2-1.0) Direct Bilirubin 0.1mg/dL (0.0-0.2) Aspartate Amino Transf (AST/SGOT) 26U/L (15-37) Alanine Aminotransferase (ALT/SGPT) 42U/L (14-59) Alkaline Phosphatase 99U/L (46-116) Troponin I Quantitative 0.091ng/mL (0.000-0.055) 0.079ng/mL (0.000-0.055) 0.071ng/mL (0.000-0.055) HF-Juu-T-Type Natriuretic Peptide > 00374pj/mL (0-124) Total Protein 5.8g/dL (6.4-8.2) Albumin 2.5g/dL (3.4-5.0) 2.2g/dL (3.4-5.0) Lipase 179U/L (73-393) Glucose (Fingerstick) 241mg/dL (70-99) Phosphorus Level 2.8mg/dL (2.6-4.7) Magnesium Level 1.8mg/dL (1.8-2.4) Test 06/01/16 08:03 06/01/16 11:14 Glucose (Fingerstick) 132mg/dL (70-99) 200mg/dL (70-99) Laboratory Tests Test 05/31/16 19:35 05/31/16 21:09 06/01/16 06:45 06/01/16 08:03 Troponin I Quantitative 0.079ng/mL (0.000-0.055) 0.071ng/mL (0.000-0.055) Glucose (Fingerstick) 241mg/dL (70-99) 132mg/dL (70-99) White Blood Count 7.5x10^3/uL (4.0-11.0) Red Blood Count 3.34x10^6/uL (3.50-5.40) Hemoglobin 10.3g/dL (12.0-15.5) Hematocrit 33.4% (36.0-47.0) Mean Corpuscular Volume 100fL (79-100) Mean Corpuscular Hemoglobin 31pg (25-35) Mean Corpuscular Hemoglobin Concent 31g/dL (31-37) Red Cell Distribution Width 17.7% (11.5-14.5) Platelet Count 226x10^3/uL (140-400) Neutrophils (%) (Auto) 76% (31-73) Lymphocytes (%) (Auto) 13% (24-48) Monocytes (%) (Auto) 11% (0-9) Eosinophils (%) (Auto) 1% (0-3) Basophils (%) (Auto) 0% (0-3) Neutrophils # (Auto) 5.7x10^3uL (1.8-7.7) Lymphocytes # (Auto) 0.9x10^3/uL (1.0-4.8) Monocytes # (Auto) 0.8x10^3/uL (0.0-1.1) Eosinophils # (Auto) 0.1x10^3/uL (0.0-0.7) Basophils # (Auto) 0.0x10^3/uL (0.0-0.2) Sodium Level 144mmol/L (136-145) Potassium Level 5.0mmol/L (3.5-5.1) Chloride Level 110mmol/L (98-107) Carbon Dioxide Level 28mmol/L (21-32) Anion Gap 6 (6-14) Blood Urea Nitrogen 32mg/dL (7-20) Creatinine 4.8mg/dL (0.6-1.0) Estimated GFR (Cockcroft-Gault) 10.8 Glucose Level 137mg/dL (70-99) Calcium Level 8.1mg/dL (8.5-10.1) Phosphorus Level 2.8mg/dL (2.6-4.7) Magnesium Level 1.8mg/dL (1.8-2.4) Albumin 2.2g/dL (3.4-5.0) Test 06/01/16 11:14 Glucose (Fingerstick) 200mg/dL (70-99) Assessment Assessment Problems Medical Problems: (1) CHF exacerbation Status: Acute (2) COPD (chronic obstructive pulmonary disease) Status: Acute (3) Dyspnea Status: Acute Problems: Plan Plan of Care Problems Medical Problems: (1) CHF exacerbation Status: Acute (2) COPD (chronic obstructive pulmonary disease) Status: Acute (3) Dyspnea Status: Acute WENDI SUAREZ MD Jun 01, 2016 15:21
[2016-06-01 19:00] VITALS: BP 132/59
[2016-06-01] MEDS: ATORVASTATIN CALCIUM 10 MG TABLET. PO SCH (21:17)
[2016-06-01 23:00] VITALS: BP 132/56
[2016-06-02 03:00] VITALS: BP 152/73
[2016-06-02 04:23] LABS: CALCIUM 7.5 mg/dL (8.5-10.1); CREATININE 3.9 mg/dL (0.6-1.0); GFR 13.7; PHOSPHORUS 2.4 mg/dL (2.6-4.7); POTASSIUM 4.6 mmol/L (3.5-5.1)
[2016-06-02 07:15] VITALS: BP 163/75
[2016-06-02] MEDS: IPRATRPIUM/ALBUTEROL 0.5/2.5MG 3 ML NEBU. NEB SCH ×4 (07:15→20:04)
--- NOTE | 2016-06-02 09:14 | PDOC ---
SUBJECTIVE ROS ESRD Feeling much better today CVS: no Orthopnea, no CP RESP: min SOB, no TAYLOR GI: no Nausea, no Vomiting : no Dysuria, no Urgency OBJECTIVE Vital Signs Vital Signs Date Time Temp Pulse Resp B/P Pulse Ox O2 Delivery O2 Flow Rate FiO2 06/02/16 07:16 100 Nasal Cannula 3.0 06/02/16 07:15 98.3 71 20 163/75 98.3 I & 0 Intake and Output 06/02/16 07:00 Intake Total 410 ml Output Total 500 ml Balance -90 ml Intake Oral 410 ml Output Urine Total 200 ml Stool Total 300 ml # Bowel Movements 1 PHYSICAL EXAM Physical Exam General Appearance: Awake Alert Oriented x 3 In no Distress Eyes: VIsion Unchanged Conjunctiva Normal EN: No EN Drainage Mucous Memb. moist Neck: no JVD min JVP Supple no Thyromegaly CVS: S1 S2 + Murmur No Gallop No Rub no Edema Resp: no Rales no Rhonchi no Acc. 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 SOB - suspect mostly COPD exac related; Will challenge Dry wt in HD since she thinks it helped her some. Low Mag - repalce per prn order Malignant HTN: Current BP meds reviewed. reval once restarted See orders for changes. ROBERT - Bone & Mineral: Follow as OP. Liberalize diet for low phos HypoAlbuminemia - Pre-Albumin is OK so check U Pr/Cr ratio. ^ed MARISSA-i Discussed Plan of Care and prognosis etc. at length with family. COMMENT/RELEVANT DATA Meds Current Medications Medications (Trade) Dose Ordered Sig/Eric Start Time Stop Time Status Last Admin Dose Admin Acetaminophen (Tylenol) 500 mg 1X PRN PRN 06/01/16 15:15 06/02/16 15:14 Acetaminophen/ Hydrocodone Bitart (Lortab 5/325) 1 tab PRN Q6HRS PRN 05/31/16 17:15 05/31/16 20:20 1 TAB Albuterol Sulfate (Ventolin Neb Soln) 2.5 mg PRN Q4HRS PRN 05/31/16 17:15 06/01/16 23:21 2.5 MG Albuterol/ Ipratropium (Duoneb) 3 ml RTQID 06/01/16 20:00 06/02/16 07:15 3 ML Alprazolam (Xanax) 0.25 mg PRN Q8HRS PRN 05/31/16 22:15 06/01/16 12:40 0.25 MG Aspirin (Hung Aspirin) 81 mg DAILY 05/31/16 17:00 05/31/16 17:36 DC Aspirin (Children'S Aspirin) 324 mg 1X ONCE 05/31/16 13:45 05/31/16 13:46 DC 05/31/16 13:50 324 MG Aspirin (Ecotrin) 81 mg DAILYWBKFT 05/31/16 17:45 05/31/16 18:53 81 MG Atorvastatin Calcium (Lipitor) 30 mg QHS 05/31/16 21:00 06/01/16 21:17 30 MG Clopidogrel Bisulfate (Plavix) 75 mg DAILY 05/31/16 17:00 05/31/16 17:21 75 MG Dextrose 12.5 gm PRN Q15MIN PRN 05/31/16 22:15 Dextrose 12.5 gm 12.5 gm PRN Q15MIN PRN 05/31/16 17:45 05/31/16 22:14 DC Diphenhydramine HCl (Benadryl) 25 mg 1X PRN PRN 06/01/16 15:15 06/02/16 15:14 Diphenhydramine HCl 25 mg 25 mg 1X PRN PRN 06/01/16 15:15 06/02/16 15:14 Furosemide (Lasix) 20 mg 1X ONCE 05/31/16 17:15 05/31/16 17:17 DC Guaifenesin (Robitussin Dm) 10 ml PRN Q6HRS PRN 06/01/16 12:45 06/01/16 23:02 10 ML Hydralazine HCl (Apresoline) 10 mg PRN Q4HRS PRN 05/31/16 17:15 Info (PHARMACY MONITORING -- do not chart) 1 each PRN DAILY PRN 06/01/16 15:15 06/01/16 15:36 DC Insulin Aspart (Novolog) 0-5 UNITS QHS 05/31/16 22:15 05/31/16 22:31 3 UNITS Lidocaine HCl (Xylocaine-Mpf 1% Vial) 2 ml 1X ONCE 06/01/16 15:15 06/01/16 15:37 DC 06/01/16 14:50 2 ML Lisinopril (Prinivil) 20 mg DAILY 05/31/16 17:00 05/31/16 17:22 20 MG Magnesium Sulfate/ Dextrose (Magnesium Sulfate PREMIX 2GM) 50 ml @ 25 mls/hr PRN DAILY PRN 05/31/16 18:15 Metolazone (Zaroxolyn) 2.5 mg DAILY 05/31/16 17:00 05/31/16 17:21 2.5 MG Metoprolol Tartrate (Lopressor) 50 mg BID 05/31/16 17:00 06/01/16 21:17 50 MG Morphine Sulfate 2 mg PRN Q2HR PRN 05/31/16 13:30 06/01/16 13:29 DC Ondansetron HCl (Zofran) 4 mg PRN Q8HRS PRN 05/31/16 17:15 Potassium Chloride (Klor-Con) 20 meq DAILYWBKFT 05/31/16 17:00 05/31/16 17:21 20 MEQ Sodium Chloride (Iv Sodium Chloride 0.9% 1000ml Bag) 1,000 ml @ 400 mls/hr Q2H30M PRN 06/01/16 15:14 06/02/16 03:13 DC Lab Laboratory Tests Test 06/01/16 11:14 06/01/16 20:52 06/02/16 03:30 06/02/16 07:35 Glucose (Fingerstick) 200mg/dL (70-99) 248mg/dL (70-99) 163mg/dL (70-99) Sodium Level 144mmol/L (136-145) Potassium Level 4.6mmol/L (3.5-5.1) Chloride Level 107mmol/L (98-107) Carbon Dioxide Level 33mmol/L (21-32) Anion Gap 4 (6-14) Blood Urea Nitrogen 32mg/dL (7-20) Creatinine 3.9mg/dL (0.6-1.0) Estimated GFR (Cockcroft-Gault) 13.7 Glucose Level 207mg/dL (70-99) Calcium Level 7.5mg/dL (8.5-10.1) Phosphorus Level 2.4mg/dL (2.6-4.7) Magnesium Level 1.4mg/dL (1.8-2.4) Albumin 2.0g/dL (3.4-5.0) WENDI SUAREZ MD Jun 02, 2016 09:14
[2016-06-02] MEDS: METOLAZONE 2.5 MG TABLET PO SCH (09:19)
[2016-06-02] MEDS: METOPROLOL TART IMMED RELEASE 50 MG TABLET PO SCH (09:19)
[2016-06-02] MEDS: CLOPIDOGREL BISULFATE 75 MG TABLET PO SCH (09:19)
[2016-06-02] MEDS: FUROSEMIDE 40 MG/4 ML VIAL IVP SCH (09:19)
--- NOTE | 2016-06-02 09:19 | PDOC ---
PROGRESS NOTES Chief Complaint Chief Complaint CC: SOA 1. Cuvqf-pj-mcmfgjb congestive heart failure. 2. Troponin elevation in ESRD 3. Uizxw-rc-svgznyj respiratory failure. Hypoxia 4. Coronary artery disease 5. Diabetes mellitus 6. Hypertension. 7. Peripheral artery disease. 8. Hyperlipidemia. 9. Asthma 10. COPD 11. Diverticulosis 12. Anemia 13. Anxiety History of Present Illness History of Present Illness Pt resting in bed with NAD VSS DW RN Vitals Vitals Vital Signs Date Time Temp Pulse Resp B/P Pulse Ox O2 Delivery O2 Flow Rate FiO2 06/02/16 07:16 100 Nasal Cannula 3.0 06/02/16 07:15 98.3 71 20 163/75 98.3 Physical Exam General: Alert, Oriented X3, Cooperative, No acute distress Heart: Regular rate, Normal S1, Normal S2, Other (2/6 systolic murmur ) Lungs: Wheezing, Other (Course breath sounds) Abdomen: Normal bowel sounds, Soft Extremities: No clubbing, No cyanosis, Other (1+ LLE edema, trace RLE edema, 1 + bilateral DP pulses ) Skin: No rashes, No breakdown, No significant lesion Labs LABS Laboratory Tests Test 06/01/16 11:14 06/01/16 20:52 06/02/16 03:30 06/02/16 07:35 Glucose (Fingerstick) 200mg/dL (70-99) 248mg/dL (70-99) 163mg/dL (70-99) Sodium Level 144mmol/L (136-145) Potassium Level 4.6mmol/L (3.5-5.1) Chloride Level 107mmol/L (98-107) Carbon Dioxide Level 33mmol/L (21-32) Anion Gap 4 (6-14) Blood Urea Nitrogen 32mg/dL (7-20) Creatinine 3.9mg/dL (0.6-1.0) Estimated GFR (Cockcroft-Gault) 13.7 Glucose Level 207mg/dL (70-99) Calcium Level 7.5mg/dL (8.5-10.1) Phosphorus Level 2.4mg/dL (2.6-4.7) Magnesium Level 1.4mg/dL (1.8-2.4) Albumin 2.0g/dL (3.4-5.0) Review of Systems Review of Systems Complains of wheezing Complains of cough Assessment and Plan Assessmemt and Plan Problems Medical Problems: (1) CHF exacerbation Status: Acute (2) COPD (chronic obstructive pulmonary disease) Status: Acute (3) Dyspnea Status: Acute Assessment: CC: SOA 1. Wptkl-pw-fzjtmme congestive heart failure. 2. Troponin elevation in ESRD 3. Lbthr-mo-ashuidj respiratory failure. Hypoxia 4. Coronary artery disease 5. Diabetes mellitus 6. Hypertension. 7. Peripheral artery disease. 8. Hyperlipidemia. 9. Asthma 10. COPD 11. Diverticulosis 12. Anemia 13. Anxiety Plan: Respiratory following - V/Q scan showed no PE, continue O2, nebs Cardiology following - EF 55% Renal following - hemodialysis Sliding scale insulin Repeat Labs Continue home meds PTOT Problems: Comment Review of Relevant I have reviewed the following items mykel (where applicable) has been applied. Labs Laboratory Tests Test 05/31/16 12:55 05/31/16 13:00 05/31/16 19:35 05/31/16 21:09 White Blood Count 10.4x10^3/uL (4.0-11.0) Red Blood Count 3.57x10^6/uL (3.50-5.40) Hemoglobin 11.3g/dL (12.0-15.5) Hematocrit 34.5% (36.0-47.0) Mean Corpuscular Volume 97fL (79-100) Mean Corpuscular Hemoglobin 32pg (25-35) Mean Corpuscular Hemoglobin Concent 33g/dL (31-37) Red Cell Distribution Width 17.2% (11.5-14.5) Platelet Count 238x10^3/uL (140-400) Neutrophils (%) (Auto) 83% (31-73) Lymphocytes (%) (Auto) 8% (24-48) Monocytes (%) (Auto) 9% (0-9) Eosinophils (%) (Auto) 0% (0-3) Basophils (%) (Auto) 0% (0-3) Neutrophils # (Auto) 8.6x10^3uL (1.8-7.7) Lymphocytes # (Auto) 0.8x10^3/uL (1.0-4.8) Monocytes # (Auto) 0.9x10^3/uL (0.0-1.1) Eosinophils # (Auto) 0.0x10^3/uL (0.0-0.7) Basophils # (Auto) 0.0x10^3/uL (0.0-0.2) Sodium Level 142mmol/L (136-145) Potassium Level 4.3mmol/L (3.5-5.1) Chloride Level 107mmol/L (98-107) Carbon Dioxide Level 28mmol/L (21-32) Anion Gap 7 (6-14) Blood Urea Nitrogen 25mg/dL (7-20) Creatinine 4.0mg/dL (0.6-1.0) Estimated GFR (Cockcroft-Gault) 13.3 Glucose Level 193mg/dL (70-99) Calcium Level 8.4mg/dL (8.5-10.1) Total Bilirubin 0.7mg/dL (0.2-1.0) Direct Bilirubin 0.1mg/dL (0.0-0.2) Aspartate Amino Transf (AST/SGOT) 26U/L (15-37) Alanine Aminotransferase (ALT/SGPT) 42U/L (14-59) Alkaline Phosphatase 99U/L (46-116) Troponin I Quantitative 0.091ng/mL (0.000-0.055) 0.079ng/mL (0.000-0.055) EY-Kfi-I-Type Natriuretic Peptide > 55963ab/mL (0-124) Total Protein 5.8g/dL (6.4-8.2) Albumin 2.5g/dL (3.4-5.0) Lipase 179U/L (73-393) Prealbumin 22mg/dL (9-32) Glucose (Fingerstick) 241mg/dL (70-99) Test 06/01/16 06:45 06/01/16 08:03 06/01/16 11:14 06/01/16 20:52 White Blood Count 7.5x10^3/uL (4.0-11.0) Red Blood Count 3.34x10^6/uL (3.50-5.40) Hemoglobin 10.3g/dL (12.0-15.5) Hematocrit 33.4% (36.0-47.0) Mean Corpuscular Volume 100fL (79-100) Mean Corpuscular Hemoglobin 31pg (25-35) Mean Corpuscular Hemoglobin Concent 31g/dL (31-37) Red Cell Distribution Width 17.7% (11.5-14.5) Platelet Count 226x10^3/uL (140-400) Neutrophils (%) (Auto) 76% (31-73) Lymphocytes (%) (Auto) 13% (24-48) Monocytes (%) (Auto) 11% (0-9) Eosinophils (%) (Auto) 1% (0-3) Basophils (%) (Auto) 0% (0-3) Neutrophils # (Auto) 5.7x10^3uL (1.8-7.7) Lymphocytes # (Auto) 0.9x10^3/uL (1.0-4.8) Monocytes # (Auto) 0.8x10^3/uL (0.0-1.1) Eosinophils # (Auto) 0.1x10^3/uL (0.0-0.7) Basophils # (Auto) 0.0x10^3/uL (0.0-0.2) Sodium Level 144mmol/L (136-145) Potassium Level 5.0mmol/L (3.5-5.1) Chloride Level 110mmol/L (98-107) Carbon Dioxide Level 28mmol/L (21-32) Anion Gap 6 (6-14) Blood Urea Nitrogen 32mg/dL (7-20) Creatinine 4.8mg/dL (0.6-1.0) Estimated GFR (Cockcroft-Gault) 10.8 Glucose Level 137mg/dL (70-99) Calcium Level 8.1mg/dL (8.5-10.1) Phosphorus Level 2.8mg/dL (2.6-4.7) Magnesium Level 1.8mg/dL (1.8-2.4) Troponin I Quantitative 0.071ng/mL (0.000-0.055) Albumin 2.2g/dL (3.4-5.0) Glucose (Fingerstick) 132mg/dL (70-99) 200mg/dL (70-99) 248mg/dL (70-99) Test 06/02/16 03:30 06/02/16 07:35 Sodium Level 144mmol/L (136-145) Potassium Level 4.6mmol/L (3.5-5.1) Chloride Level 107mmol/L (98-107) Carbon Dioxide Level 33mmol/L (21-32) Anion Gap 4 (6-14) Blood Urea Nitrogen 32mg/dL (7-20) Creatinine 3.9mg/dL (0.6-1.0) Estimated GFR (Cockcroft-Gault) 13.7 Glucose Level 207mg/dL (70-99) Calcium Level 7.5mg/dL (8.5-10.1) Phosphorus Level 2.4mg/dL (2.6-4.7) Magnesium Level 1.4mg/dL (1.8-2.4) Albumin 2.0g/dL (3.4-5.0) Glucose (Fingerstick) 163mg/dL (70-99) Laboratory Tests Test 06/01/16 11:14 06/01/16 20:52 06/02/16 03:30 06/02/16 07:35 Glucose (Fingerstick) 200mg/dL (70-99) 248mg/dL (70-99) 163mg/dL (70-99) Sodium Level 144mmol/L (136-145) Potassium Level 4.6mmol/L (3.5-5.1) Chloride Level 107mmol/L (98-107) Carbon Dioxide Level 33mmol/L (21-32) Anion Gap 4 (6-14) Blood Urea Nitrogen 32mg/dL (7-20) Creatinine 3.9mg/dL (0.6-1.0) Estimated GFR (Cockcroft-Gault) 13.7 Glucose Level 207mg/dL (70-99) Calcium Level 7.5mg/dL (8.5-10.1) Phosphorus Level 2.4mg/dL (2.6-4.7) Magnesium Level 1.4mg/dL (1.8-2.4) Albumin 2.0g/dL (3.4-5.0) Medications Current Medications Albuterol/ Ipratropium (Duoneb) 3 ml 1X ONCE NEB Last administered on t 12:30; Start 05/31/16 at 12:15; Stop 05/31/16 at 12:16; Status DC Furosemide (Lasix) 20 mg 1X ONCE IVP Last administered on 05/31/16 13:03; Start 05/31/16 at 12:15; Stop 05/31/16 at 12:16; Status DC Ondansetron HCl (Zofran) 4 mg PRN Q8HRS PRN IV NAUSEA/VOMITING; Start 05/31/16 at 13:30; Stop 05/31/16 at 22:15; Status DC Morphine Sulfate 2 mg PRN Q2HR PRN IV PAIN; Start 05/31/16 at 13:30; Stop 06/01 at 13:29; Status DC Albuterol/ Ipratropium (Duoneb) 3 ml RTQID NEB Last administered on 06/01/16 15:14; Start 05/31/16 at 16:00; Stop 06/01/16 at 15:59; Status DC Aspirin (Children'S Aspirin) 324 mg 1X ONCE PO Last administered on 05/31/16 13:50; Start 05/31/16 at 13:45; Stop 05/31/16 at 13:46; Status DC Furosemide (Lasix) 40 mg DAILY IVP Last administered on 05/31/16 17:21; Start 05/31/16 at 16:30 Aspirin (Hung Aspirin) 81 mg DAILY PO ; Start 05/31/16 at 17:00; Stop 05/31/16 at 17:36; Status DC Atorvastatin Calcium (Lipitor) 30 mg QHS PO Last administered on 06/01/16 21: 17; Start 05/31/16 at 21:00 Clopidogrel Bisulfate (Plavix) 75 mg DAILY PO Last administered on 05/31/16 17 :21; Start 05/31/16 at 17:00 Lisinopril (Prinivil) 20 mg DAILY PO Last administered on 05/31/16 17:22; Start 05/31/16 at 17:00 Metolazone (Zaroxolyn) 2.5 mg DAILY PO Last administered on 05/31/16 17:21; Start 05/31/16 at 17:00 Potassium Chloride (Klor-Con) 20 meq DAILYWBKFT PO Last administered on 17:21; Start 05/31/16 at 17:00 Metoprolol Tartrate (Lopressor) 50 mg BID PO Last administered on 06/01/16 21: 17; Start 05/31/16 at 17:00 Hydralazine HCl (Apresoline) 10 mg PRN Q4HRS PRN IVP ELEVATED BP, SEE COMMENTS Last administered on 06/01/16 12:40; Start 05/31/16 at 16:30 Acetaminophen (Tylenol) 325 mg PRN Q6HRS PRN PO MILD PAIN / TEMP; Start at 17:15 Acetaminophen/ Hydrocodone Bitart (Lortab 5/325) 1 tab PRN Q6HRS PRN PO MODERATE TO SEVERE PAIN Last administered on 05/31/16 20:20; Start 05/31/16 at 17:15 Hydralazine HCl (Apresoline) 10 mg PRN Q4HRS PRN IVP ELEVATED BP, SEE COMMENTS ; Start 05/31/16 at 17:15 Ondansetron HCl (Zofran) 4 mg PRN Q8HRS PRN IV NAUSEA/VOMITING; Start 05/31/16 at 17:15 Albuterol Sulfate (Ventolin Neb Soln) 2.5 mg PRN Q4HRS PRN NEB SHORTNESS OF BREATH Last administered on 06/01/16 23:21; Start 05/31/16 at 17:15 Furosemide (Lasix) 20 mg 1X ONCE IVP ; Start 05/31/16 at 17:15; Stop 05/31/16 at 17:17; Status DC Aspirin (Ecotrin) 81 mg DAILYWBKFT PO Last administered on 05/31/16 18:53; Start 05/31/16 at 17:45 Insulin Aspart (Novolog) 0-9 UNITS TIDWMEALS SQ ; Start 06/01/16 at 08:00 Dextrose 12.5 gm 12.5 gm PRN Q15MIN PRN IV SEE COMMENTS; Start 05/31/16 at 17: 45; Stop 05/31/16 at 22:14; Status DC Magnesium Sulfate/ Dextrose (Magnesium Sulfate PREMIX 2GM) 50 ml @ 25 mls/hr PRN DAILY PRN IV for Mag < 1.7 on am labs; Start 05/31/16 at 18:15 Alprazolam (Xanax) 0.25 mg PRN Q8HRS PRN PO ANXIETY / AGITATION Last administered on 06/01/16 12:40; Start 05/31/16 at 22:15 Insulin Aspart (Novolog) 0-5 UNITS QHS SQ Last administered on 05/31/16 22:31 ; Start 05/31/16 at 22:15 Dextrose 12.5 gm PRN Q15MIN PRN IV SEE COMMENTS; Start 05/31/16 at 22:15 Guaifenesin (Robitussin Dm) 10 ml PRN Q6HRS PRN PO COUGH Last administered on 23:02; Start 06/01/16 at 12:45 Lidocaine HCl 2 ml 2 ml STK-MED ONCE .ROUTE ; Start 06/01/16 at 14:46; Stop at 14:47; Status DC Sodium Chloride (Iv Sodium Chloride 0.9% 1000ml Bag) 1,000 ml @ 1,000 mls/hr Q1H PRN IV hypotension; Start 06/01/16 at 15:14; Stop 06/01/16 at 21:13; Status DC Acetaminophen (Tylenol) 500 mg 1X PRN PRN PO MILD PAIN / TEMP; Start 06/01/16 at 15:15; Stop 06/02/16 at 15:14 Diphenhydramine HCl (Benadryl) 25 mg 1X PRN PRN IV ITCHING; Start 06/01/16 at 15:15; Stop 06/02/16 at 15:14 Diphenhydramine HCl 25 mg 25 mg 1X PRN PRN IV ITCHING; Start 06/01/16 at 15:15 ; Stop 06/02/16 at 15:14 Sodium Chloride (Iv Sodium Chloride 0.9% 1000ml Bag) 1,000 ml @ 400 mls/hr Q2H30M PRN IV PATENCY; Start 06/01/16 at 15:14; Stop 06/02/16 at 03:13; Status DC Info (PHARMACY MONITORING -- do not chart) 1 each PRN DAILY PRN MC SEE COMMENTS ; Start 06/01/16 at 15:15 Info (PHARMACY MONITORING -- do not chart) 1 each PRN DAILY PRN MC SEE COMMENTS ; Start 06/01/16 at 15:15; Stop 06/01/16 at 15:36; Status DC Lidocaine HCl (Xylocaine-Mpf 1% Vial) 2 ml 1X ONCE INJ Last administered on 14:50; Start 06/01/16 at 15:15; Stop 06/01/16 at 15:37; Status DC Albuterol/ Ipratropium (Duoneb) 3 ml RTQID NEB Last administered on 06/02/16 07:15; Start 06/01/16 at 20:00 Active Scripts Active Lisinopril 20 Mg Tablet 20 Tab PO DAILY Klor-Con M20 (Potassium Chloride) 20 Meq Tab.er.prt 20 Meq PO DAILYWBKFT Guaifenesin-Codeine Syrup (Guaifenesin/Codeine Phosphate) 5 Ml Liquid 5 Ml PO PRN Q6HRS PRN [Albuterol Sulfate] 2.5 MG/3 ML Nebu 2.5 Mg NEB PRN Q4HRS PRN Tradjenta (Linagliptin) 5 Mg Tablet 5 Mg PO DAILY Reported Lantus Solostar (Insulin Glargine,Hum.rec.anlog) 100 Unit/1 Ml Insuln.pen 20 Unit SQ QHS Marina-Jayme Tablet (Folic Acid/Vitamin B Comp W-C) 0.8 Mg Tablet 0.8 Mg PO Metolazone 2.5 Mg Tablet 2.5 Mg PO DAILY Metoprolol Tartrate 50 Mg Tablet 1 Tab PO TID Atorvastatin Calcium 20 Mg Tablet 30 Mg PO DAILY Aspirin 325 Mg Tablet 1 Tab PO DAILY Tolterodine Tartrate 2 Mg Tablet 4 Mg PO DAILY Plavix (Clopidogrel Bisulfate) 75 Mg Tablet 75 Mg PO DAILY Vitals/I & O Vital Sign - Last 24 Hours 06/01/16 06/01/16 06/01/16 06/01/16 11:00 11:13 12:40 15:16 Temp 99.3 99.3 Pulse 88 88 Resp 18 B/P 168/76 168/76 Pulse Ox 98 O2 Delivery Nasal Cannula Nasal Cannula O2 Flow Rate 3.0 3.0 3.0 06/01/16 06/01/16 06/01/16 06/01/16 18:03 19:00 19:05 21:17 Temp 98.0 98.0 Pulse 101 101 Resp 18 B/P 132/59 132/59 Pulse Ox 92 O2 Delivery Nasal Cannula Nasal Cannula Nasal Cannula O2 Flow Rate 3.0 3.0 4.0 06/01/16 06/01/16 06/02/16/23/17 23:00 23:20 03:00 07:15 Temp 98.7 98.3 98.3 98.7 98.3 98.3 Pulse 75 71 71 Resp 18 18 20 B/P 132/56 152/73 163/75 Pulse Ox 95 97 98 O2 Delivery Nasal Cannula Nasal Cannula Nasal Cannula Nasal Cannula O2 Flow Rate 3.0 3.0 3.0 3.0 06/02/16 07:16 Pulse Ox 100 O2 Delivery Nasal Cannula O2 Flow Rate 3.0 Intake and Output 06/01/16 06/01/16 06/02/16 15:00 23:00 07:00 Intake Total 240 ml 170 ml Output Total 200 ml 300 ml Balance 40 ml -130 ml YULIA DE ANDA III DO Jun 02, 2016 09:19
[2016-06-02] MEDS: ASPIRIN ENTERIC COATED 81 MG TABLET.DR. PO SCH (09:20)
[2016-06-02] MEDS: LISINOPRIL 40 MG TABLET. PO SCH (09:40)
--- NOTE | 2016-06-02 09:49 | PDOC ---
[employer] [employer] 06/02/16 0949: CARDIO Progress Notes Date and Time Date of Service 06/02/2016 Time of Evaluation 0946 Subjective Subjective: No Chest Pain, No Palpitations, No Dizziness, Other (HD terminated early yesterday due to neck pain) Vitals Vitals Vital Signs Date Time Temp Pulse Resp B/P Pulse Ox O2 Delivery O2 Flow Rate FiO2 06/02/16 09:19 75 163/75 06/02/16 07:16 100 Nasal Cannula 3.0 06/02/16 07:15 98.3 20 98.3 Weight Weight [ ] Input and Output Intake and Output Intake and Output 06/02/16 07:00 Intake Total 410 ml Output Total 500 ml Balance -90 ml Intake Oral 410 ml Output Urine Total 200 ml Stool Total 300 ml # Bowel Movements 1 Laboratory Labs Laboratory Tests Test 06/01/16 11:14 06/01/16 20:52 06/02/16 03:30 06/02/16 07:35 Glucose (Fingerstick) 200mg/dL (70-99) 248mg/dL (70-99) 163mg/dL (70-99) Sodium Level 144mmol/L (136-145) Potassium Level 4.6mmol/L (3.5-5.1) Chloride Level 107mmol/L (98-107) Carbon Dioxide Level 33mmol/L (21-32) Anion Gap 4 (6-14) Blood Urea Nitrogen 32mg/dL (7-20) Creatinine 3.9mg/dL (0.6-1.0) Estimated GFR (Cockcroft-Gault) 13.7 Glucose Level 207mg/dL (70-99) Calcium Level 7.5mg/dL (8.5-10.1) Phosphorus Level 2.4mg/dL (2.6-4.7) Magnesium Level 1.4mg/dL (1.8-2.4) Albumin 2.0g/dL (3.4-5.0) Physical Exam HEENT: Neck Supple W Full Motion Chest: Symmetric LUNGS: Other (coarse) Heart: RRR, murmurs, other (no tele) Abdomen: Soft N/T, Other (LG) Extremities: No Edema Neurology: alert, oriented, follow commands Assessment Assessment 1. Acute on chronic diastolic heart failure, decompensated Recent echo with LVEF 55% control BP fluid management per HD for repeat HD today 2. Mildly elevated troponin peaked @ 0.091 in the setting of acute HF and renal failure MPI 05/26 with no evidence of ischemia likely demand related 3. Acute on chronic respiratory failure with AE COPD VQ scan negative for pulmonary embolus 4. CAD s/p PCI/MALLORIE to RCA no anginal symptoms continue secondary management with BB, ASA and statin therapy 5. PVD s/p [employer]/stent placement to left common iliac artery. no claudication 6. Hypertension remains poorly controlled with only intermittent administration of meds- ?? treat with prn hydralazine 7. Hyperlipidemia LDLs = 86; 01/2016 continue statin therapy 8. Chronic renal failure with HD per nephrology FRANK REED MD 06/02/16 1616: CARDIO Progress Notes Assessment Assessment Patient seen and examined. Agree with DEBLOCKER's assessment and plan. Acute on chronic diastolic heart failure better compensated. Continue fluid removal with hemodialysis per nephrology team. CAD status clinically stable. Recent stress test did not show any significant ischemia. Continue current medical regimen. CHANTEL HIGGINBOTHAM APRN Jun 02, 2016 09:49 FRANK REED MD Jun 02, 2016 16:16
[2016-06-02] MEDS: INSULIN ASPART 300 UNITS/3 ML INSULN.PEN SQ SCH ×4 (09:50→21:00)
[2016-06-02 11:15] VITALS: BP 154/69
--- NOTE | 2016-06-02 13:36 | PDOC ---
PULMONARY PROGRESS NOTES Subjective feels better Vitals Vital Signs Date Time Temp Pulse Resp B/P Pulse Ox O2 Delivery O2 Flow Rate FiO2 06/02/16 11:15 98.0 68 18 154/69 97 Nasal Cannula 3.0 98.0 General: Alert, Oriented X4, No acute distress Lungs: Clear Cardiovascular: S1, S2 Abdomen: Soft, Non-tender, Other Extremities: No Edema Labs Laboratory Tests Test 05/31/16 19:35 05/31/16 21:09 06/01/16 06:45 06/01/16 08:03 Troponin I Quantitative 0.079ng/mL (0.000-0.055) 0.071ng/mL (0.000-0.055) Glucose (Fingerstick) 241mg/dL (70-99) 132mg/dL (70-99) White Blood Count 7.5x10^3/uL (4.0-11.0) Red Blood Count 3.34x10^6/uL (3.50-5.40) Hemoglobin 10.3g/dL (12.0-15.5) Hematocrit 33.4% (36.0-47.0) Mean Corpuscular Volume 100fL (79-100) Mean Corpuscular Hemoglobin 31pg (25-35) Mean Corpuscular Hemoglobin Concent 31g/dL (31-37) Red Cell Distribution Width 17.7% (11.5-14.5) Platelet Count 226x10^3/uL (140-400) Neutrophils (%) (Auto) 76% (31-73) Lymphocytes (%) (Auto) 13% (24-48) Monocytes (%) (Auto) 11% (0-9) Eosinophils (%) (Auto) 1% (0-3) Basophils (%) (Auto) 0% (0-3) Neutrophils # (Auto) 5.7x10^3uL (1.8-7.7) Lymphocytes # (Auto) 0.9x10^3/uL (1.0-4.8) Monocytes # (Auto) 0.8x10^3/uL (0.0-1.1) Eosinophils # (Auto) 0.1x10^3/uL (0.0-0.7) Basophils # (Auto) 0.0x10^3/uL (0.0-0.2) Sodium Level 144mmol/L (136-145) Potassium Level 5.0mmol/L (3.5-5.1) Chloride Level 110mmol/L (98-107) Carbon Dioxide Level 28mmol/L (21-32) Anion Gap 6 (6-14) Blood Urea Nitrogen 32mg/dL (7-20) Creatinine 4.8mg/dL (0.6-1.0) Estimated GFR (Cockcroft-Gault) 10.8 Glucose Level 137mg/dL (70-99) Calcium Level 8.1mg/dL (8.5-10.1) Phosphorus Level 2.8mg/dL (2.6-4.7) Magnesium Level 1.8mg/dL (1.8-2.4) Albumin 2.2g/dL (3.4-5.0) Test 06/01/16 11:14 06/01/16 19:55 06/01/16 20:52 06/02/16 03:30 Glucose (Fingerstick) 200mg/dL (70-99) 248mg/dL (70-99) Clostridium difficile Toxin (PCR) Negative (Negative) Sodium Level 144mmol/L (136-145) Potassium Level 4.6mmol/L (3.5-5.1) Chloride Level 107mmol/L (98-107) Carbon Dioxide Level 33mmol/L (21-32) Anion Gap 4 (6-14) Blood Urea Nitrogen 32mg/dL (7-20) Creatinine 3.9mg/dL (0.6-1.0) Estimated GFR (Cockcroft-Gault) 13.7 Glucose Level 207mg/dL (70-99) Calcium Level 7.5mg/dL (8.5-10.1) Phosphorus Level 2.4mg/dL (2.6-4.7) Magnesium Level 1.4mg/dL (1.8-2.4) Albumin 2.0g/dL (3.4-5.0) Test 06/02/16 07:35 06/02/16 10:43 Glucose (Fingerstick) 163mg/dL (70-99) 119mg/dL (70-99) Laboratory Tests Test 06/01/16 19:55 06/01/16 20:52 06/02/16 03:30 2/23/17 07:35 Clostridium difficile Toxin (PCR) Negative (Negative) Glucose (Fingerstick) 248mg/dL (70-99) 163mg/dL (70-99) Sodium Level 144mmol/L (136-145) Potassium Level 4.6mmol/L (3.5-5.1) Chloride Level 107mmol/L (98-107) Carbon Dioxide Level 33mmol/L (21-32) Anion Gap 4 (6-14) Blood Urea Nitrogen 32mg/dL (7-20) Creatinine 3.9mg/dL (0.6-1.0) Estimated GFR (Cockcroft-Gault) 13.7 Glucose Level 207mg/dL (70-99) Calcium Level 7.5mg/dL (8.5-10.1) Phosphorus Level 2.4mg/dL (2.6-4.7) Magnesium Level 1.4mg/dL (1.8-2.4) Albumin 2.0g/dL (3.4-5.0) Test 06/02/16 10:43 Glucose (Fingerstick) 119mg/dL (70-99) Medications Active Scripts Medications Dose Route/Sig Days Date Category Lantus Solostar (Insulin Glargine,Hum.rec.anlog) 100 Unit/1 Ml Insuln.pen 20 Unit SQ QHS 09/03/15 Reported Marina-Jayme Tablet (Folic Acid/Vitamin B Comp W-C) 0.8 Mg Tablet 0.8 Mg PO 09/03/15 Reported Metolazone 2.5 Mg Tablet 2.5 Mg PO DAILY 09/03/15 Reported Metoprolol Tartrate 50 Mg Tablet 1 Tab PO TID 09/03/15 Reported Atorvastatin Calcium 20 Mg Tablet 30 Mg PO DAILY 09/03/15 Reported Lisinopril 20 Mg Tablet 20 Tab PO DAILY 06/15/15 Rx Klor-Con M20 (Potassium Chloride) 20 Meq Tab.er.prt 20 Meq PO [id number] 03/29/15 Rx Guaifenesin-Codeine Syrup (Guaifenesin/Codeine Phosphate) 5 Ml Liquid 5 Ml PO PRN Q6HRS PRN 12/26/14 Rx [Albuterol Sulfate] 2.5 MG/3 ML Nebu 2.5 Mg NEB PRN Q4HRS PRN 12/26/14 Rx Tradjenta (Linagliptin) 5 Mg Tablet 5 Mg PO DAILY 12/17/14 Rx Aspirin 325 Mg Tablet 1 Tab PO DAILY 01/25/14 Reported Tolterodine Tartrate 2 Mg Tablet 4 Mg PO DAILY 01/24/14 Reported Plavix (Clopidogrel Bisulfate) 75 Mg Tablet 75 Mg PO DAILY 01/10/14 Reported Impression . 1. Dyspnea with chronic hypoxic respiratory failure. The etiology of dyspnea could be multifactorial and may be related to acute exacerbation of chronic obstructive pulmonary disease. The chest x-ray does not show any obvious congestive heart failure or pneumonia. There is almost doubling of the pulmonary artery pressures that were recorded on the echo based on her report from January with a PA pressure of 41 to recently with a PA pressure in the 80s. V/Q scan with no thromboembolic disease. 2. Underlying oxygen dependent chronic obstructive pulmonary disease with mild exacerbation. 3. End-stage renal disease, on hemodialysis. 4. Accelerated hypertension, present on admission. 5. Possible [id number] diastolic heart failure. Plan . 1. Continue with hemodialysis the ultrafiltration. 2. Neg V/Q scan. 3. Continue oxygen 4 liters. 4. I have emphasized the importance of using CPAP, but due to noncompliance machine is going to be taken away. 5. Continue bronchodilators. 6. d/c plans per PCP SHEILA ZHENG MD Jun 02, 2016 13:36
[2016-06-02 15:15] VITALS: BP 150/70
[2016-06-02 19:00] VITALS: BP 157/68
[2016-06-02 23:00] VITALS: BP 143/59
[2016-06-03] MEDS: ATORVASTATIN CALCIUM 10 MG TABLET. PO SCH (01:26)
[2016-06-03] MEDS: METOPROLOL TART IMMED RELEASE 50 MG TABLET PO SCH ×2 (01:26→08:27)
[2016-06-03 06:54] LABS: BASO % 0 % (0-3); EOS % 2 % (0-3); HEMATOCRIT 33.2 % (36.0-47.0); HEMOGLOBIN 10.5 g/dL (12.0-15.5); LYMPH # 0.8 x10^3/uL (1.0-4.8); LYMPH % 12 % (24-48); MEAN CORPUSCULAR HEMOGLOBIN 32 pg (25-35); MEAN CORPUSCULAR HGB CONC 32 g/dL (31-37); MEAN CORPUSCULAR VOLUME 99 fL (79-100); MONO % 16 % (0-9); NEUT % 70 % (31-73); PLATELET COUNT 244 x10^3/uL (140-400); RED BLOOD COUNT 3.34 x10^6/uL (3.50-5.40); RED CELL DISTRIBUTION WIDTH 17.7 % (11.5-14.5); WHITE BLOOD COUNT 6.7 x10^3/uL (4.0-11.0)
[2016-06-03 07:20] LABS: ALBUMIN 2.1 g/dL (3.4-5.0); CALCIUM 7.5 mg/dL (8.5-10.1); CREATININE 4.9 mg/dL (0.6-1.0); GFR 10.5; PHOSPHORUS 3.1 mg/dL (2.6-4.7); POTASSIUM 4.8 mmol/L (3.5-5.1)
[2016-06-03] MEDS: IPRATRPIUM/ALBUTEROL 0.5/2.5MG 3 ML NEBU. NEB SCH ×3 (07:41→16:00)
[2016-06-03 07:49] VITALS: BP 152/74
[2016-06-03] MEDS: ASPIRIN ENTERIC COATED 81 MG TABLET.DR. PO SCH (08:23)
[2016-06-03] MEDS: INSULIN ASPART 300 UNITS/3 ML INSULN.PEN SQ SCH ×2 (08:25→11:16)
[2016-06-03] MEDS: FUROSEMIDE 40 MG/4 ML VIAL IVP SCH (08:26)
[2016-06-03] MEDS: CLOPIDOGREL BISULFATE 75 MG TABLET PO SCH (08:28)
[2016-06-03] MEDS: METOLAZONE 2.5 MG TABLET PO SCH (08:29)
[2016-06-03] MEDS: LISINOPRIL 40 MG TABLET. PO SCH (08:29)
[2016-06-03 11:11] VITALS: BP 113/47
[2016-06-03 11:13] VITALS: BP 113/47
--- NOTE | 2016-06-03 11:54 | PDOC ---
PULMONARY PROGRESS NOTES Subjective feels better Vitals Vital Signs Date Time Temp Pulse Resp B/P Pulse Ox O2 Delivery O2 Flow Rate FiO2 06/03/16 11:18 99 Nasal Cannula 2.0 06/03/16 11:13 98.2 65 18 113/47 98.2 General: Alert, Oriented X4, No acute distress Lungs: Clear Cardiovascular: S1, S2 Abdomen: Soft, Non-tender, Other Extremities: No Edema Labs Laboratory Tests Test 06/01/16 19:55 06/01/16 20:52 06/02/16 03:30 06/02/16 07:35 Clostridium difficile Toxin (PCR) Negative (Negative) Glucose (Fingerstick) 248mg/dL (70-99) 163mg/dL (70-99) Sodium Level 144mmol/L (136-145) Potassium Level 4.6mmol/L (3.5-5.1) Chloride Level 107mmol/L (98-107) Carbon Dioxide Level 33mmol/L (21-32) Anion Gap 4 (6-14) Blood Urea Nitrogen 32mg/dL (7-20) Creatinine 3.9mg/dL (0.6-1.0) Estimated GFR (Cockcroft-Gault) 13.7 Glucose Level 207mg/dL (70-99) Calcium Level 7.5mg/dL (8.5-10.1) Phosphorus Level 2.4mg/dL (2.6-4.7) Magnesium Level 1.4mg/dL (1.8-2.4) Albumin 2.0g/dL (3.4-5.0) Test 06/02/16 10:43 06/02/16 16:28 06/02/16 20:34 06/03/16 06:10 Glucose (Fingerstick) 119mg/dL (70-99) 266mg/dL (70-99) 236mg/dL (70-99) White Blood Count 6.7x10^3/uL (4.0-11.0) Red Blood Count 3.34x10^6/uL (3.50-5.40) Hemoglobin 10.5g/dL (12.0-15.5) Hematocrit 33.2% (36.0-47.0) Mean Corpuscular Volume 99fL (79-100) Mean Corpuscular Hemoglobin 32pg (25-35) Mean Corpuscular Hemoglobin Concent 32g/dL (31-37) Red Cell Distribution Width 17.7% (11.5-14.5) Platelet Count 244x10^3/uL (140-400) Neutrophils (%) (Auto) 70% (31-73) Lymphocytes (%) (Auto) 12% (24-48) Monocytes (%) (Auto) 16% (0-9) Eosinophils (%) (Auto) 2% (0-3) Basophils (%) (Auto) 0% (0-3) Neutrophils # (Auto) 4.7x10^3uL (1.8-7.7) Lymphocytes # (Auto) 0.8x10^3/uL (1.0-4.8) Monocytes # (Auto) 1.0x10^3/uL (0.0-1.1) Eosinophils # (Auto) 0.1x10^3/uL (0.0-0.7) Basophils # (Auto) 0.0x10^3/uL (0.0-0.2) Sodium Level 142mmol/L (136-145) Potassium Level 4.8mmol/L (3.5-5.1) Chloride Level 106mmol/L (98-107) Carbon Dioxide Level 31mmol/L (21-32) Anion Gap 5 (6-14) Blood Urea Nitrogen 41mg/dL (7-20) Creatinine 4.9mg/dL (0.6-1.0) Estimated GFR (Cockcroft-Gault) 10.5 Glucose Level 168mg/dL (70-99) Calcium Level 7.5mg/dL (8.5-10.1) Phosphorus Level 3.1mg/dL (2.6-4.7) Magnesium Level 2.3mg/dL (1.8-2.4) Albumin 2.1g/dL (3.4-5.0) Test 06/03/16 07:32 06/03/16 10:54 Glucose (Fingerstick) 152mg/dL (70-99) 134mg/dL (70-99) Laboratory Tests Test 06/02/16 16:28 06/02/16 20:34 06/03/16 06:10 06/03/16 07:32 Glucose (Fingerstick) 266mg/dL (70-99) 236mg/dL (70-99) 152mg/dL (70-99) White Blood Count 6.7x10^3/uL (4.0-11.0) Red Blood Count 3.34x10^6/uL (3.50-5.40) Hemoglobin 10.5g/dL (12.0-15.5) Hematocrit 33.2% (36.0-47.0) Mean Corpuscular Volume 99fL (79-100) Mean Corpuscular Hemoglobin 32pg (25-35) Mean Corpuscular Hemoglobin Concent 32g/dL (31-37) Red Cell Distribution Width 17.7% (11.5-14.5) Platelet Count 244x10^3/uL (140-400) Neutrophils (%) (Auto) 70% (31-73) Lymphocytes (%) (Auto) 12% (24-48) Monocytes (%) (Auto) 16% (0-9) Eosinophils (%) (Auto) 2% (0-3) Basophils (%) (Auto) 0% (0-3) Neutrophils # (Auto) 4.7x10^3uL (1.8-7.7) Lymphocytes # (Auto) 0.8x10^3/uL (1.0-4.8) Monocytes # (Auto) 1.0x10^3/uL (0.0-1.1) Eosinophils # (Auto) 0.1x10^3/uL (0.0-0.7) Basophils # (Auto) 0.0x10^3/uL (0.0-0.2) Sodium Level 142mmol/L (136-145) Potassium Level 4.8mmol/L (3.5-5.1) Chloride Level 106mmol/L (98-107) Carbon Dioxide Level 31mmol/L (21-32) Anion Gap 5 (6-14) Blood Urea Nitrogen 41mg/dL (7-20) Creatinine 4.9mg/dL (0.6-1.0) Estimated GFR (Cockcroft-Gault) 10.5 Glucose Level 168mg/dL (70-99) Calcium Level 7.5mg/dL (8.5-10.1) Phosphorus Level 3.1mg/dL (2.6-4.7) Magnesium Level 2.3mg/dL (1.8-2.4) Albumin 2.1g/dL (3.4-5.0) Test 06/03/16 10:54 Glucose (Fingerstick) 134mg/dL (70-99) Medications Active Scripts Medications Dose Route/Sig Days Date Category Lantus Solostar (Insulin Glargine,Hum.rec.anlog) 100 Unit/1 Ml Insuln.pen 20 Unit SQ QHS 09/03/15 Reported Marina-Jayme Tablet (Folic Acid/Vitamin B Comp W-C) 0.8 Mg Tablet 0.8 Mg PO 09/03/15 Reported Metolazone 2.5 Mg Tablet 2.5 Mg PO DAILY 09/03/15 Reported Metoprolol Tartrate 50 Mg Tablet 1 Tab PO TID 09/03/15 Reported Atorvastatin Calcium 20 Mg Tablet 30 Mg PO DAILY 09/03/15 Reported Lisinopril 20 Mg Tablet 20 Tab PO DAILY 06/15/15 Rx Klor-Con M20 (Potassium Chloride) 20 Meq Tab.er.prt 20 Meq PO [id number] 03/29/15 Rx Guaifenesin-Codeine Syrup (Guaifenesin/Codeine Phosphate) 5 Ml Liquid 5 Ml PO PRN Q6HRS PRN 12/26/14 Rx [Albuterol Sulfate] 2.5 MG/3 ML Nebu 2.5 Mg NEB PRN Q4HRS PRN 12/26/14 Rx Tradjenta (Linagliptin) 5 Mg Tablet 5 Mg PO DAILY 12/17/14 Rx Aspirin 325 Mg Tablet 1 Tab PO DAILY 01/25/14 Reported Tolterodine Tartrate 2 Mg Tablet 4 Mg PO DAILY 01/24/14 Reported Plavix (Clopidogrel Bisulfate) 75 Mg Tablet 75 Mg PO DAILY 01/10/14 Reported Impression . 1. Dyspnea with chronic hypoxic respiratory failure. The etiology of dyspnea could be multifactorial and may be related to acute exacerbation of chronic obstructive pulmonary disease. The chest x-ray does not show any obvious congestive heart failure or pneumonia. There is almost doubling of the pulmonary artery pressures that were recorded on the echo based on her report from January with a PA pressure of 41 to recently with a PA pressure in the 80s. V/Q scan with no thromboembolic disease. 2. Underlying oxygen dependent chronic obstructive pulmonary disease with mild exacerbation. 3. End-stage renal disease, on hemodialysis. 4. Accelerated hypertension, present on admission. 5. Possible [id number] diastolic heart failure. Plan . 1. Continue with hemodialysis the ultrafiltration. 2. Neg V/Q scan. 3. Continue oxygen 4 liters. 4. I have emphasized the importance of using CPAP, but due to noncompliance machine is going to be taken away. 5. Continue bronchodilators. 6. d/c plans per PCP SHEILA ZHENG MD Jun 03, 2016 11:53
--- NOTE | 2016-06-03 11:55 | PDOC ---
PROGRESS NOTES Chief Complaint Chief Complaint 1. Tkowx-qs-xkytooh congestive heart failure. 2. Troponin elevation in ESRD 3. Orqve-mb-ljktzlu respiratory failure. Hypoxia 4. Coronary artery disease 5. Diabetes mellitus 6. Hypertension. 7. Peripheral artery disease. 8. Hyperlipidemia. 9. Asthma 10. COPD 11. Diverticulosis 12. Anemia 13. Anxiety History of Present Illness History of Present Illness Pt awake, alert, and oriented when seen and examined this AM. Pt states that she is feeling "ok". Pt on HD MWFr. Pt getting ready for HD later today. Family member present and at bedside. Patient appears to be approaching baseline. VSS- All questions and concerns answered and addressed. Vitals Vitals Vital Signs Date Time Temp Pulse Resp B/P Pulse Ox O2 Delivery O2 Flow Rate FiO2 06/03/16 11:18 99 Nasal Cannula 2.0 06/03/16 11:13 98.2 65 18 113/47 98.2 Physical Exam General: Alert, Oriented X3, Cooperative, No acute distress Heart: Regular rate, Normal S1, Normal S2, Other (2/6 systolic murmur ) Lungs: Clear Abdomen: Normal bowel sounds, Soft Extremities: No clubbing, No cyanosis, Other (1+ LLE edema, trace RLE edema, 1 + bilateral DP pulses ) Skin: No rashes, No breakdown, No significant lesion Labs LABS Laboratory Tests Test 06/02/16 16:28 06/02/16 20:34 06/03/16 06:10 06/03/16 07:32 Glucose (Fingerstick) 266mg/dL (70-99) 236mg/dL (70-99) 152mg/dL (70-99) White Blood Count 6.7x10^3/uL (4.0-11.0) Red Blood Count 3.34x10^6/uL (3.50-5.40) Hemoglobin 10.5g/dL (12.0-15.5) Hematocrit 33.2% (36.0-47.0) Mean Corpuscular Volume 99fL (79-100) Mean Corpuscular Hemoglobin 32pg (25-35) Mean Corpuscular Hemoglobin Concent 32g/dL (31-37) Red Cell Distribution Width 17.7% (11.5-14.5) Platelet Count 244x10^3/uL (140-400) Neutrophils (%) (Auto) 70% (31-73) Lymphocytes (%) (Auto) 12% (24-48) Monocytes (%) (Auto) 16% (0-9) Eosinophils (%) (Auto) 2% (0-3) Basophils (%) (Auto) 0% (0-3) Neutrophils # (Auto) 4.7x10^3uL (1.8-7.7) Lymphocytes # (Auto) 0.8x10^3/uL (1.0-4.8) Monocytes # (Auto) 1.0x10^3/uL (0.0-1.1) Eosinophils # (Auto) 0.1x10^3/uL (0.0-0.7) Basophils # (Auto) 0.0x10^3/uL (0.0-0.2) Sodium Level 142mmol/L (136-145) Potassium Level 4.8mmol/L (3.5-5.1) Chloride Level 106mmol/L (98-107) Carbon Dioxide Level 31mmol/L (21-32) Anion Gap 5 (6-14) Blood Urea Nitrogen 41mg/dL (7-20) Creatinine 4.9mg/dL (0.6-1.0) Estimated GFR (Cockcroft-Gault) 10.5 Glucose Level 168mg/dL (70-99) Calcium Level 7.5mg/dL (8.5-10.1) Phosphorus Level 3.1mg/dL (2.6-4.7) Magnesium Level 2.3mg/dL (1.8-2.4) Albumin 2.1g/dL (3.4-5.0) Test 06/03/16 10:54 Glucose (Fingerstick) 134mg/dL (70-99) Review of Systems Review of Systems Patient complaint of hunger Patient complaint of fatigue Assessment and Plan Assessmemt and Plan Problems Medical Problems: (1) CHF exacerbation Status: Acute (2) COPD (chronic obstructive pulmonary disease) Status: Acute (3) Dyspnea Status: Acute Assessment: 1. Zuukx-nh-xzarhro congestive heart failure. 2. Troponin elevation in ESRD 3. Ikflq-tp-ebswgbr respiratory failure. Hypoxia 4. Coronary artery disease 5. Diabetes mellitus 6. Hypertension. 7. Peripheral artery disease. 8. Hyperlipidemia. 9. Asthma 10. COPD 11. Diverticulosis 12. Anemia 13. Anxiety Plan: Continue to monitor the patient per floor protocol Continue daily labs-CBC, BMP, BUN, and Cr Continue to monitor daily BUN and Cr watching for trend and baseline Continue current HD regimen and schedule Appreciate subspecialty input and recommendations Possible DC later today or tomorrow if ok with Nephrology Continue daily PTOT DW RN and family Problems: Comment Review of Relevant I have reviewed the following items mykel (where applicable) has been applied. Labs Laboratory Tests Test 06/01/16 19:55 06/01/16 20:52 06/02/16 03:30 06/02/16 07:35 Clostridium difficile Toxin (PCR) Negative (Negative) Glucose (Fingerstick) 248mg/dL (70-99) 163mg/dL (70-99) Sodium Level 144mmol/L (136-145) Potassium Level 4.6mmol/L (3.5-5.1) Chloride Level 107mmol/L (98-107) Carbon Dioxide Level 33mmol/L (21-32) Anion Gap 4 (6-14) Blood Urea Nitrogen 32mg/dL (7-20) Creatinine 3.9mg/dL (0.6-1.0) Estimated GFR (Cockcroft-Gault) 13.7 Glucose Level 207mg/dL (70-99) Calcium Level 7.5mg/dL (8.5-10.1) Phosphorus Level 2.4mg/dL (2.6-4.7) Magnesium Level 1.4mg/dL (1.8-2.4) Albumin 2.0g/dL (3.4-5.0) Test 06/02/16 10:43 06/02/16 16:28 06/02/16 20:34 06/03/16 06:10 Glucose (Fingerstick) 119mg/dL (70-99) 266mg/dL (70-99) 236mg/dL (70-99) White Blood Count 6.7x10^3/uL (4.0-11.0) Red Blood Count 3.34x10^6/uL (3.50-5.40) Hemoglobin 10.5g/dL (12.0-15.5) Hematocrit 33.2% (36.0-47.0) Mean Corpuscular Volume 99fL (79-100) Mean Corpuscular Hemoglobin 32pg (25-35) Mean Corpuscular Hemoglobin Concent 32g/dL (31-37) Red Cell Distribution Width 17.7% (11.5-14.5) Platelet Count 244x10^3/uL (140-400) Neutrophils (%) (Auto) 70% (31-73) Lymphocytes (%) (Auto) 12% (24-48) Monocytes (%) (Auto) 16% (0-9) Eosinophils (%) (Auto) 2% (0-3) Basophils (%) (Auto) 0% (0-3) Neutrophils # (Auto) 4.7x10^3uL (1.8-7.7) Lymphocytes # (Auto) 0.8x10^3/uL (1.0-4.8) Monocytes # (Auto) 1.0x10^3/uL (0.0-1.1) Eosinophils # (Auto) 0.1x10^3/uL (0.0-0.7) Basophils # (Auto) 0.0x10^3/uL (0.0-0.2) Sodium Level 142mmol/L (136-145) Potassium Level 4.8mmol/L (3.5-5.1) Chloride Level 106mmol/L (98-107) Carbon Dioxide Level 31mmol/L (21-32) Anion Gap 5 (6-14) Blood Urea Nitrogen 41mg/dL (7-20) Creatinine 4.9mg/dL (0.6-1.0) Estimated GFR (Cockcroft-Gault) 10.5 Glucose Level 168mg/dL (70-99) Calcium Level 7.5mg/dL (8.5-10.1) Phosphorus Level 3.1mg/dL (2.6-4.7) Magnesium Level 2.3mg/dL (1.8-2.4) Albumin 2.1g/dL (3.4-5.0) Test 06/03/16 07:32 06/03/16 10:54 Glucose (Fingerstick) 152mg/dL (70-99) 134mg/dL (70-99) Laboratory Tests Test 06/02/16 16:28 06/02/16 20:34 06/03/16 06:10 06/03/16 07:32 Glucose (Fingerstick) 266mg/dL (70-99) 236mg/dL (70-99) 152mg/dL (70-99) White Blood Count 6.7x10^3/uL (4.0-11.0) Red Blood Count 3.34x10^6/uL (3.50-5.40) Hemoglobin 10.5g/dL (12.0-15.5) Hematocrit 33.2% (36.0-47.0) Mean Corpuscular Volume 99fL (79-100) Mean Corpuscular Hemoglobin 32pg (25-35) Mean Corpuscular Hemoglobin Concent 32g/dL (31-37) Red Cell Distribution Width 17.7% (11.5-14.5) Platelet Count 244x10^3/uL (140-400) Neutrophils (%) (Auto) 70% (31-73) Lymphocytes (%) (Auto) 12% (24-48) Monocytes (%) (Auto) 16% (0-9) Eosinophils (%) (Auto) 2% (0-3) Basophils (%) (Auto) 0% (0-3) Neutrophils # (Auto) 4.7x10^3uL (1.8-7.7) Lymphocytes # (Auto) 0.8x10^3/uL (1.0-4.8) Monocytes # (Auto) 1.0x10^3/uL (0.0-1.1) Eosinophils # (Auto) 0.1x10^3/uL (0.0-0.7) Basophils # (Auto) 0.0x10^3/uL (0.0-0.2) Sodium Level 142mmol/L (136-145) Potassium Level 4.8mmol/L (3.5-5.1) Chloride Level 106mmol/L (98-107) Carbon Dioxide Level 31mmol/L (21-32) Anion Gap 5 (6-14) Blood Urea Nitrogen 41mg/dL (7-20) Creatinine 4.9mg/dL (0.6-1.0) Estimated GFR (Cockcroft-Gault) 10.5 Glucose Level 168mg/dL (70-99) Calcium Level 7.5mg/dL (8.5-10.1) Phosphorus Level 3.1mg/dL (2.6-4.7) Magnesium Level 2.3mg/dL (1.8-2.4) Albumin 2.1g/dL (3.4-5.0) Test 06/03/16 10:54 Glucose (Fingerstick) 134mg/dL (70-99) Medications Current Medications Albuterol/ Ipratropium (Duoneb) 3 ml 1X ONCE NEB Last administered on 12:30; Start 05/31/16 at 12:15; Stop 05/31/16 at 12:16; Status DC Furosemide (Lasix) 20 mg 1X ONCE IVP Last administered on 05/31/16 13:03; Start 05/31/16 at 12:15; Stop 05/31/16 at 12:16; Status DC Ondansetron HCl (Zofran) 4 mg PRN Q8HRS PRN IV NAUSEA/VOMITING; Start 05/31/16 at 13:30; Stop 05/31/16 at 22:15; Status DC Morphine Sulfate 2 mg PRN Q2HR PRN IV PAIN; Start 05/31/16 at 13:30; Stop 06/01 at 13:29; Status DC Albuterol/ Ipratropium (Duoneb) 3 ml RTQID NEB Last administered on 06/01/16 15:14; Start 05/31/16 at 16:00; Stop 06/01/16 at 15:59; Status DC Aspirin (Children'S Aspirin) 324 mg 1X ONCE PO Last administered on 05/31/16 13:50; Start 05/31/16 at 13:45; Stop 05/31/16 at 13:46; Status DC Furosemide (Lasix) 40 mg DAILY IVP Last administered on 06/03/16 08:26; Start 05/31/16 at 16:30 Aspirin (Hung Aspirin) 81 mg DAILY PO ; Start 05/31/16 at 17:00; Stop 05/31/16 at 17:36; Status DC Atorvastatin Calcium (Lipitor) 30 mg QHS PO Last administered on 06/03/16 01: 26; Start 05/31/16 at 21:00 Clopidogrel Bisulfate (Plavix) 75 mg DAILY PO Last administered on 06/03/16 08 :28; Start 05/31/16 at 17:00 Lisinopril (Prinivil) 20 mg DAILY PO Last administered on 05/31/16 17:22; Start 05/31/16 at 17:00; Stop 06/02/16 at 09:13; Status DC Metolazone (Zaroxolyn) 2.5 mg DAILY PO Last administered on 06/03/16 08:29; Start 05/31/16 at 17:00 Potassium Chloride (Klor-Con) 20 meq DAILYWBKFT PO Last administered on 17:21; Start 05/31/16 at 17:00; Stop 06/02/16 at 09:13; Status DC Metoprolol Tartrate (Lopressor) 50 mg BID PO Last administered on 06/03/16 08: 27; Start 05/31/16 at 17:00 Hydralazine HCl (Apresoline) 10 mg PRN Q4HRS PRN IVP ELEVATED BP, SEE COMMENTS Last administered on 06/01/16 12:40; Start 05/31/16 at 16:30; Stop 06/02/16 at 16:23; Status DC Acetaminophen (Tylenol) 325 mg PRN Q6HRS PRN PO MILD PAIN / TEMP; Start at 17:15 Acetaminophen/ Hydrocodone Bitart (Lortab 5/325) 1 tab PRN Q6HRS PRN PO MODERATE TO SEVERE PAIN Last administered on 05/31/16 20:20; Start 05/31/16 at 17:15 Hydralazine HCl (Apresoline) 10 mg PRN Q4HRS PRN IVP ELEVATED BP, SEE COMMENTS ; Start 05/31/16 at 17:15 Ondansetron HCl (Zofran) 4 mg PRN Q8HRS PRN IV NAUSEA/VOMITING; Start 05/31/16 at 17:15 Albuterol Sulfate (Ventolin Neb Soln) 2.5 mg PRN Q4HRS PRN NEB SHORTNESS OF BREATH Last administered on 06/01/16 23:21; Start 05/31/16 at 17:15 Furosemide (Lasix) 20 mg 1X ONCE IVP ; Start 05/31/16 at 17:15; Stop 05/31/16 at 17:17; Status DC Aspirin (Ecotrin) 81 mg DAILYWBKFT PO Last administered on 06/03/16 08:23; Start 05/31/16 at 17:45 Insulin Aspart (Novolog) 0-9 UNITS TIDWMEALS SQ Last administered on 06/03/16 08:25; Start 06/01/16 at 08:00 Dextrose 12.5 gm 12.5 gm PRN Q15MIN PRN IV SEE COMMENTS; Start 05/31/16 at 17: 45; Stop 05/31/16 at 22:14; Status DC Magnesium Sulfate/ Dextrose (Magnesium Sulfate PREMIX 2GM) 50 ml @ 25 mls/hr PRN DAILY PRN IV for Mag < 1.7 on am labs Last administered on 06/02/16 09:18 ; Start 05/31/16 at 18:15 Alprazolam (Xanax) 0.25 mg PRN Q8HRS PRN PO ANXIETY / AGITATION Last administered on 06/01/16 12:40; Start 05/31/16 at 22:15 Insulin Aspart (Novolog) 0-5 UNITS QHS SQ Last administered on 05/31/16 22:31 ; Start 05/31/16 at 22:15 Dextrose 12.5 gm PRN Q15MIN PRN IV SEE COMMENTS; Start 05/31/16 at 22:15 Guaifenesin (Robitussin Dm) 10 ml PRN Q6HRS PRN PO COUGH Last administered on 23:02; Start 06/01/16 at 12:45 Lidocaine HCl 2 ml 2 ml STK-MED ONCE .ROUTE ; Start 06/01/16 at 14:46; Stop at 14:47; Status DC Sodium Chloride (Iv Sodium Chloride 0.9% 1000ml Bag) 1,000 ml @ 1,000 mls/hr Q1H PRN IV hypotension; Start 06/01/16 at 15:14; Stop 06/01/16 at 21:13; Status DC Acetaminophen (Tylenol) 500 mg 1X PRN PRN PO MILD PAIN / TEMP; Start 06/01/16 at 15:15; Stop 06/02/16 at 15:14; Status DC Diphenhydramine HCl (Benadryl) 25 mg 1X PRN PRN IV ITCHING; Start 06/01/16 at 15:15; Stop 06/02/16 at 15:14; Status DC Diphenhydramine HCl 25 mg 25 mg 1X PRN PRN IV ITCHING; Start 06/01/16 at 15:15 ; Stop 06/02/16 at 15:14; Status DC Sodium Chloride (Iv Sodium Chloride 0.9% 1000ml Bag) 1,000 ml @ 400 mls/hr Q2H30M PRN IV PATENCY; Start 06/01/16 at 15:14; Stop 06/02/16 at 03:13; Status DC Info (PHARMACY MONITORING -- do not chart) 1 each PRN DAILY PRN MC SEE COMMENTS ; Start 06/01/16 at 15:15 Info (PHARMACY MONITORING -- do not chart) 1 each PRN DAILY PRN MC SEE COMMENTS ; Start 06/01/16 at 15:15; Stop 06/01/16 at 15:36; Status DC Lidocaine HCl (Xylocaine-Mpf 1% Vial) 2 ml 1X ONCE INJ Last administered on t 14:50; Start 06/01/16 at 15:15; Stop 06/01/16 at 15:37; Status DC Albuterol/ Ipratropium (Duoneb) 3 ml RTQID NEB Last administered on 06/03/16 11:14; Start 06/01/16 at 20:00 Lisinopril (Prinivil) 40 mg DAILY PO Last administered on 06/03/16t 08:29; Start 06/02/16 at 09:30 Active Scripts Active Lisinopril 20 Mg Tablet 20 Tab PO DAILY Klor-Con M20 (Potassium Chloride) 20 Meq Tab.er.prt 20 Meq PO DAILYWBKFT Guaifenesin-Codeine Syrup (Guaifenesin/Codeine Phosphate) 5 Ml Liquid 5 Ml PO PRN Q6HRS PRN [Albuterol Sulfate] 2.5 MG/3 ML Nebu 2.5 Mg NEB PRN Q4HRS PRN Tradjenta (Linagliptin) 5 Mg Tablet 5 Mg PO DAILY Reported Lantus Solostar (Insulin Glargine,Hum.rec.anlog) 100 Unit/1 Ml Insuln.pen 20 Unit SQ QHS Marina-Jayme Tablet (Folic Acid/Vitamin B Comp W-C) 0.8 Mg Tablet 0.8 Mg PO Metolazone 2.5 Mg Tablet 2.5 Mg PO DAILY Metoprolol Tartrate 50 Mg Tablet 1 Tab PO TID Atorvastatin Calcium 20 Mg Tablet 30 Mg PO DAILY Aspirin 325 Mg Tablet 1 Tab PO DAILY Tolterodine Tartrate 2 Mg Tablet 4 Mg PO DAILY Plavix (Clopidogrel Bisulfate) 75 Mg Tablet 75 Mg PO DAILY Vitals/I & O Vital Sign - Last 24 Hours 06/02/16 06/02/16 06/02/16 06/02/16 14:56 15:15 19:00 20:05 Temp 98.0 98.6 98.0 98.6 Pulse 69 81 Resp 20 20 B/P 150/70 157/68 Pulse Ox 98 94 94 O2 Delivery Nasal Cannula Nasal Cannula Nasal Cannula Nasal Cannula O2 Flow Rate 2.0 3.0 3.0 2.0 06/02/16 06/03/16 06/03/16 06/03/16 23:00 01:26 07:42 07:49 Temp 98.2 97.5 98.2 97.5 Pulse 80 80 72 Resp 18 19 B/P 143/59 143/59 152/74 Pulse Ox 97 96 97 O2 Delivery Nasal Cannula Nasal Cannula Nasal Cannula O2 Flow Rate 3.0 2.0 3.0 06/03/16 06/03/16 06/03/16 06/03/16 08:00 08:27 08:29 11:11 Temp 98.2 98.2 Pulse 72 72 65 Resp 14 B/P 152/74 152/74 113/47 O2 Delivery Nasal Cannula O2 Flow Rate 3.0 06/03/16 06/03/16 11:13 11:18 Temp 98.2 98.2 Pulse 65 Resp 18 B/P 113/47 Pulse Ox 98 99 O2 Delivery Nasal Cannula Nasal Cannula O2 Flow Rate 3.0 2.0 Intake and Output 06/02/16 06/02/16 06/03/16 15:00 23:00 07:00 Intake Total 520 ml 240 ml Output Total 350 ml Balance 520 ml 240 ml -350 ml YULIA DE ANDA III DO Jun 03, 2016 11:55
[2016-06-03] MEDS ORDERED: IV NORMAL SALINE 1000ML BAG 1,000 ML IV SCH (13:32)
--- NOTE | 2016-06-03 13:35 | PDOC ---
CARDIO Progress Notes Date and Time Date of Service 06/03/2016 Time of Evaluation 1230 Subjective Subjective: No Chest Pain, No shortness of breath, No Palpitations, No Dizziness Vitals Vitals Vital Signs Date Time Temp Pulse Resp B/P Pulse Ox O2 Delivery O2 Flow Rate FiO2 06/03/16 11:18 99 Nasal Cannula 2.0 06/03/16 11:13 98.2 65 18 113/47 98.2 Weight Weight [ ] Input and Output Intake and Output Intake and Output 06/03/16 07:00 Intake Total 760 ml Output Total 350 ml Balance 410 ml Intake Oral 760 ml Output Urine Total 350 ml Laboratory Labs Laboratory Tests Test 06/02/16 16:28 06/02/16 20:34 06/03/16 06:10 06/03/16 07:32 Glucose (Fingerstick) 266mg/dL (70-99) 236mg/dL (70-99) 152mg/dL (70-99) White Blood Count 6.7x10^3/uL (4.0-11.0) Red Blood Count 3.34x10^6/uL (3.50-5.40) Hemoglobin 10.5g/dL (12.0-15.5) Hematocrit 33.2% (36.0-47.0) Mean Corpuscular Volume 99fL (79-100) Mean Corpuscular Hemoglobin 32pg (25-35) Mean Corpuscular Hemoglobin Concent 32g/dL (31-37) Red Cell Distribution Width 17.7% (11.5-14.5) Platelet Count 244x10^3/uL (140-400) Neutrophils (%) (Auto) 70% (31-73) Lymphocytes (%) (Auto) 12% (24-48) Monocytes (%) (Auto) 16% (0-9) Eosinophils (%) (Auto) 2% (0-3) Basophils (%) (Auto) 0% (0-3) Neutrophils # (Auto) 4.7x10^3uL (1.8-7.7) Lymphocytes # (Auto) 0.8x10^3/uL (1.0-4.8) Monocytes # (Auto) 1.0x10^3/uL (0.0-1.1) Eosinophils # (Auto) 0.1x10^3/uL (0.0-0.7) Basophils # (Auto) 0.0x10^3/uL (0.0-0.2) Sodium Level 142mmol/L (136-145) Potassium Level 4.8mmol/L (3.5-5.1) Chloride Level 106mmol/L (98-107) Carbon Dioxide Level 31mmol/L (21-32) Anion Gap 5 (6-14) Blood Urea Nitrogen 41mg/dL (7-20) Creatinine 4.9mg/dL (0.6-1.0) Estimated GFR (Cockcroft-Gault) 10.5 Glucose Level 168mg/dL (70-99) Calcium Level 7.5mg/dL (8.5-10.1) Phosphorus Level 3.1mg/dL (2.6-4.7) Magnesium Level 2.3mg/dL (1.8-2.4) Albumin 2.1g/dL (3.4-5.0) Test 06/03/16 10:54 Glucose (Fingerstick) 134mg/dL (70-99) Physical Exam HEENT: Neck Supple W Full Motion Chest: Symmetric LUNGS: Other (coarse) Heart: S1S2, RRR, other (no tele) Abdomen: Soft N/T Extremities: No Calf Tenderness, Other (1+ bilateral LE pitting edema) Neurology: alert, oriented, follow commands Assessment Assessment 1. Acute on chronic diastolic heart failure, decompensated compensated, fluid offloading per HD OK to DC to home per cardiac perspective. F/U in 1 month 2. Mildly elevated troponin Demand mediated peaked at 0.09 in the setting of ESRD 3. Acute on chronic respiratory failure with AECOPD Compensated, no PE 4. CAD s/p PCI/MALLORIE to RCA no anginal symptoms continue secondary management with BB, ASA and statin therapy 5. PVD s/p COW WASHER/stent placement to left common iliac artery. no claudication 6. Hypertension Labile ACEi added per renal 7. Hyperlipidemia LDLs = 86; 01/2016 continue statin therapy 8. Chronic renal failure with HD per nephrology SHANA VIRK APRN Jun 03, 2016 13:35
[2016-06-03 14:48] VITALS: BP 163/69
--- NOTE | 2016-06-03 15:07 | PDOC ---
SUBJECTIVE ROS ESRD doign and feeling better today CVS: no Orthopnea, no CP RESP: no SOB, no TAYLOR GI: no Nausea, no Vomiting : no Dysuria, no Urgency OBJECTIVE Vital Signs Vital Signs Date Time Temp Pulse Resp B/P Pulse Ox O2 Delivery O2 Flow Rate FiO2 06/03/16 14:48 98.2 73 18 163/69 95 Nasal Cannula 3.0 98.2 I & 0 Intake and Output 06/03/16 07:00 Intake Total 760 ml Output Total 350 ml Balance 410 ml Intake Oral 760 ml Output Urine Total 350 ml PHYSICAL EXAM Physical Exam General Appearance: Awake Alert Oriented x 3 In no Distress Eyes: VIsion Unchanged Conjunctiva Normal EN: No EN Drainage Mucous Memb. moist Neck: no JVD min JVP Supple no Thyromegaly CVS: S1 S2 + Murmur No Gallop No Rub no Edema Resp: no Rales no Rhonchi no Acc. Muscle use GI: BS +ve NO Bruit Non Tender Non Distended - obese : no CVA tenderness; no Suprapubic Tenderness Assessment & Plan ESRD Dialysis as below if pt agrees to (she is thinking about it) F 180 NR 3.5 Hrs 3 K 2.5 Ca 140 Na 40 HC03 Qb 350 + Qd 500+ Heparin 0 Units Uf 2-3 Kgs or to 1-2 kg below dry weight as tolerated May give 25-50 gms of 25% Albumin if needed to maintain Hemodynamic stability Treatment plan reviewed and discussed with pharmacy laboratory technician Anemia: Epogen as needed Transfuse with next HD as needed. SOB - better after Uf on HD Malignant HTN: Current BP meds reviewed. reval once restarted See orders for changes.Better aftrer UF ROBERT - [facility] Mineral: Follow as OP. Liberalized diet for low phos - now WNL HypoAlbuminemia - Pre-Albumin is OK so check U Pr/Cr ratio. ^ed MARISSA-i Discussed Plan of Care and prognosis etc. at length with family. COMMENT/RELEVANT DATA Meds Current Medications Medications (Trade) Dose Ordered Sig/Eric Start Time Stop Time Status Last Admin Dose Admin Acetaminophen (Tylenol) 500 mg 1X PRN PRN 06/01/16 15:15 06/02/16 15:14 DC Acetaminophen/ Hydrocodone Bitart (Lortab 5/325) 1 tab PRN Q6HRS PRN 05/31/16 17:15 05/31/16 20:20 1 TAB Albuterol Sulfate (Ventolin Neb Soln) 2.5 mg PRN Q4HRS PRN 05/31/16 17:15 06/01/16 23:21 2.5 MG Albuterol/ Ipratropium (Duoneb) 3 ml RTQID 06/01/16 20:00 06/03/16 11:14 3 ML Alprazolam (Xanax) 0.25 mg PRN Q8HRS PRN 05/31/16 22:15 06/01/16 12:40 0.25 MG Aspirin (Hung Aspirin) 81 mg DAILY 05/31/16 17:00 05/31/16 17:36 DC Aspirin (Children'S Aspirin) 324 mg 1X ONCE 05/31/16 13:45 05/31/16 13:46 DC 05/31/16 13:50 324 MG Aspirin (Ecotrin) 81 mg DAILYWBKFT 05/31/16 17:45 06/03/16 08:23 81 MG Atorvastatin Calcium (Lipitor) 30 mg QHS 05/31/16 21:00 06/03/16 01:26 30 MG Clopidogrel Bisulfate (Plavix) 75 mg DAILY 05/31/16 17:00 06/03/16 08:28 75 MG Dextrose 12.5 gm PRN Q15MIN PRN 05/31/16 22:15 Dextrose 12.5 gm 12.5 gm PRN Q15MIN PRN 05/31/16 17:45 05/31/16 22:14 DC Diphenhydramine HCl (Benadryl) 25 mg 1X PRN PRN 06/01/16 15:15 06/02/16 15:14 DC Furosemide (Lasix) 20 mg 1X ONCE 05/31/16 17:15 05/31/16 17:17 DC Guaifenesin (Robitussin Dm) 10 ml PRN Q6HRS PRN 06/01/16 12:45 06/01/16 23:02 10 ML Hydralazine HCl (Apresoline) 10 mg PRN Q4HRS PRN 05/31/16 17:15 Info (PHARMACY MONITORING -- do not chart) 1 each PRN DAILY PRN 06/01/16 15:15 06/01/16 15:36 DC Insulin Aspart (Novolog) 0-5 UNITS QHS 05/31/16 22:15 05/31/16 22:31 3 UNITS Lidocaine HCl (Xylocaine-Mpf 1% Vial) 2 ml 1X ONCE 06/01/16 15:15 06/01/16 15:37 DC 06/01/16 14:50 2 ML Lisinopril (Prinivil) 20 mg DAILY 05/31/16 17:00 06/02/16 09:13 DC 05/31/16 17:22 20 MG Lisinopril 40 mg 40 mg DAILY 06/02/16 09:30 06/03/16 08:29 40 MG Magnesium Sulfate/ Dextrose (Magnesium Sulfate PREMIX 2GM) 50 ml @ 25 mls/hr PRN DAILY PRN 05/31/16 18:15 06/02/16 09:18 25 MLS/HR Metolazone (Zaroxolyn) 2.5 mg DAILY 05/31/16 17:00 06/03/16 08:29 2.5 MG Metoprolol Tartrate (Lopressor) 50 mg BID 05/31/16 17:00 06/03/16 08:27 50 MG Morphine Sulfate 2 mg PRN Q2HR PRN 05/31/16 13:30 06/01/16 13:29 DC Ondansetron HCl (Zofran) 4 mg PRN Q8HRS PRN 05/31/16 17:15 Potassium Chloride (Klor-Con) 20 meq DAILYWBKFT 05/31/16 17:00 06/02/16 09:13 DC 05/31/16 17:21 20 MEQ Sodium Chloride (Iv Sodium Chloride 0.9% 1000ml Bag) 1,000 ml @ 60 mls/hr [id number] 06/03/16 13:32 06/03/16 13:35 DC Lab Laboratory Tests Test 06/02/16 16:28 06/02/16 20:34 06/03/16 06:10 06/03/16 07:32 Glucose (Fingerstick) 266mg/dL (70-99) 236mg/dL (70-99) 152mg/dL (70-99) White Blood Count 6.7x10^3/uL (4.0-11.0) Red Blood Count 3.34x10^6/uL (3.50-5.40) Hemoglobin 10.5g/dL (12.0-15.5) Hematocrit 33.2% (36.0-47.0) Mean Corpuscular Volume 99fL (79-100) Mean Corpuscular Hemoglobin 32pg (25-35) Mean Corpuscular Hemoglobin Concent 32g/dL (31-37) Red Cell Distribution Width 17.7% (11.5-14.5) Platelet Count 244x10^3/uL (140-400) Neutrophils (%) (Auto) 70% (31-73) Lymphocytes (%) (Auto) 12% (24-48) Monocytes (%) (Auto) 16% (0-9) Eosinophils (%) (Auto) 2% (0-3) Basophils (%) (Auto) 0% (0-3) Neutrophils # (Auto) 4.7x10^3uL (1.8-7.7) Lymphocytes # (Auto) 0.8x10^3/uL (1.0-4.8) Monocytes # (Auto) 1.0x10^3/uL (0.0-1.1) Eosinophils # (Auto) 0.1x10^3/uL (0.0-0.7) Basophils # (Auto) 0.0x10^3/uL (0.0-0.2) Sodium Level 142mmol/L (136-145) Potassium Level 4.8mmol/L (3.5-5.1) Chloride Level 106mmol/L (98-107) Carbon Dioxide Level 31mmol/L (21-32) Anion Gap 5 (6-14) Blood Urea Nitrogen 41mg/dL (7-20) Creatinine 4.9mg/dL (0.6-1.0) Estimated GFR (Cockcroft-Gault) 10.5 Glucose Level 168mg/dL (70-99) Calcium Level 7.5mg/dL (8.5-10.1) Phosphorus Level 3.1mg/dL (2.6-4.7) Magnesium Level 2.3mg/dL (1.8-2.4) Albumin 2.1g/dL (3.4-5.0) Test 06/03/16 10:54 Glucose (Fingerstick) 134mg/dL (70-99) WENDI SUAREZ MD Jun 03, 2016 15:07
[2016-06-03] MEDS: ALPRAZOLAM 0.25 MG TABLET PO PRN (15:08)
[2016-06-03] MEDS ORDERED: IV NORMAL SALINE 1000ML BAG 1,000 ML IV PRN (16:11)
[2016-06-03] MEDS ORDERED: DIPHENHYDRAMINE 50 MG/ML VIAL IV PRN ×2 (16:15)
[2016-06-03] MEDS ORDERED: LABETALOL 20 MG/4 ML DISP.SYRIN. IVP PRN (16:15)
[2016-06-03] MEDS ORDERED: DIALYSIS PATIENT. MC PRN ×2 (16:15)
[2016-06-03 19:13] LABS: UR PROTEIN RD 798.5 mg/dL (Not Estab.)
== END 2016-06-03 19:26 | disposition home or self-care (01) | DRG 291 ==
LOC: ER 11:52 → ED HOLD 13:26 → 5 NORTH 16:44
PROVIDERS: ADMIT Internal Medicine; ATTEND Internal Medicine
PROC: 5A1D60Z (ICD-10-PCS; principal; 2016-06-03)
DX: I13.2 Hypertensive heart and chronic kidney disease with heart failure and with stage 5 chronic kidney disease, or end stage renal disease (principal); I50.33 Acute on chronic diastolic (congestive) heart failure; J96.21 Acute and chronic respiratory failure with hypoxia; N18.6 End stage renal disease; J44.1 Chronic obstructive pulmonary disease with (acute) exacerbation; E44.1 Mild protein-calorie malnutrition; I24.8 Other forms of acute ischemic heart disease; E11.51 Type 2 diabetes mellitus with diabetic peripheral angiopathy without gangrene; D64.9 Anemia, unspecified; E11.22 Type 2 diabetes mellitus with diabetic chronic kidney disease; E11.65 Type 2 diabetes mellitus with hyperglycemia; E78.00 Pure hypercholesterolemia, unspecified; E78.5 Hyperlipidemia, unspecified; F41.9 Anxiety disorder, unspecified; G47.33 Obstructive sleep apnea (adult) (pediatric); I07.1 Rheumatic tricuspid insufficiency; I25.10 Atherosclerotic heart disease of native coronary artery without angina pectoris; I27.2 Other secondary pulmonary hypertension; E66.9 Obesity, unspecified; I34.0 Nonrheumatic mitral (valve) insufficiency; J45.909 Unspecified asthma, uncomplicated; K21.9 Gastro-esophageal reflux disease without esophagitis; K57.90 Diverticulosis of intestine, part unspecified, without perforation or abscess without bleeding; Z82.49 Family history of ischemic heart disease and other diseases of the circulatory system; Z83.3 Family history of diabetes mellitus; Z87.891 Personal history of nicotine dependence; Z95.5 Presence of coronary angioplasty implant and graft; Z99.2 Dependence on renal dialysis; Z99.81 Dependence on supplemental oxygen; Z87.01 Personal history of pneumonia (recurrent); Z91.041 Radiographic dye allergy status; Z68.31 Body mass index [BMI] 31.0-31.9, adult; Z79.899 Other long term (current) drug therapy; Z79.82 Long term (current) use of aspirin
CPT/HCPCS: 36415; 71010; 78582; 80048; 80069; 80076; 82570; 82947; 83690; 83735; 83880; 84134; 84156; 84484; 85027; 87324; 93005; 94250; 94640; 94760; 96374; A9540; A9558; J0360; J1815; J1940; J7060; J7620; 97150; 97535; 99285-25

== ENCOUNTER 2016-06-16 13:29 | Inpatient (IN) | payer MEDICARE, BC ==
[~2016-06-16] VITALS: Ht 154.9 cm; Wt 77.7 kg
--- NOTE | 2016-06-16 13:54 | PHYS DOC ---
Past Medical History Past Medical History: CHF, COPD, Diabetes-Type II, DVT, High Cholesterol, Hypertension, CO, Renal Disease, Renal Failure, Other Additional Past Medical Histor: high chol, dialysis MWF Past Surgical History: Angioplasty, Other Additional Past Surgical Histo: cardiac cath with stent placement, rotator cuff surgery,AV graft Alcohol Use: None Drug Use: None Adult General Chief Complaint Chief Complaint: SHORTNESS OF BREATH HPI HPI Patient is a 70 year old female who presents with multiple complaints. Patient was sent to emergency department from an urgent care as her O2 saturation was in the 70s while she was on her baseline 4 L of O2 per nasal cannula. On arrival to ED, O2 saturation in 90s on 4 L O2. Patient's complaints include shortness of breath, which is worse with exertion. She also reports generalized abdominal cramping that she describes as "a funny hurt" for the past week. She said she had "a little bit" of diarrhea today. She denies any chest pain. She also reports cough and wheezing. She has used her albuterol home with insufficient relief. No fever. Review of Systems Review of Systems Constitutional: Denies fever or chills Eyes: Denies change in visual acuity or eye pain HENT: Denies nasal congestion or sore throat Respiratory: Cough, shortness of breath Cardiovascular: Denies chest pain GI: General crampy abdominal pain, mild diarrhea. Denies nausea, vomiting, bloody stools Musculoskeletal: Denies back pain or joint pain Integument: Denies rash or skin lesions Neurologic: Denies headache, focal weakness or sensory changes Current Medications Current Medications Current Medications Medications (Trade) Dose Ordered Sig/Eric Start Time Stop Time Status Last Admin Dose Admin Albuterol/ Ipratropium (Duoneb) 3 ml 1X ONCE 06/16/16 14:00 06/16/16 14:01 DC 06/16/16 14:47 3 ML Hydralazine HCl (Apresoline) 10 mg 1X ONCE 06/16/16 14:00 06/16/16 14:01 DC 06/16/16 14:52 10 MG Morphine Sulfate 4 mg 1X ONCE 06/16/16 14:00 06/16/16 14:01 DC 06/16/16 14:51 4 MG Prednisone (Prednisone) 60 mg 1X ONCE 06/16/16 14:00 06/16/16 14:01 DC 06/16/16 14:52 60 MG Allergies Allergies Allergies Coded Allergies Type Severity Reaction Last Updated Verified Iodinated Contrast Media - Oral and Allergy Intermediate 06/19/15 Yes Physical Exam Physical Exam Constitutional: Well developed, well nourished, no acute distress, non-toxic appearance HENT: Normocephalic, atraumatic, bilateral external ears normal Eyes: EOMI, conjunctiva normal, no discharge Neck: Normal range of motion, no stridor Cardiovascular: Heart rate normal, regular rhythm, no murmur Lungs & Thorax: Poor air movement, trace diffuse expiratory wheezing Abdomen: Bowel sounds normal, soft, non-distended, mild periumbilical TTP without guarding or rebound Skin: Warm, dry, no erythema, no rash Extremities: No obvious deformity, no edema Neurologic: Alert and oriented X 3, no gross deficits noted Psychologic: Affect normal, judgement normal, mood normal Current Patient Data Vital Signs Vital Signs Date Time Temp Pulse Resp B/P Pulse Ox O2 Delivery O2 Flow Rate FiO2 06/16/16 15:15 94 19 178/60 98 Nasal Cannula 4 06/16/16 13:40 98.5 98.5 Lab Values Laboratory Tests Test 06/16/16 14:50 White Blood Count 6.7x10^3/uL (4.0-11.0) Red Blood Count 2.91x10^6/uL (3.50-5.40) L Hemoglobin 9.1g/dL (12.0-15.5) L Hematocrit 29.6% (36.0-47.0) L Mean Corpuscular Volume 102fL (79-100) H Mean Corpuscular Hemoglobin 31pg (25-35) Mean Corpuscular Hemoglobin Concent 31g/dL (31-37) Red Cell Distribution Width 17.2% (11.5-14.5) H Platelet Count 277x10^3/uL (140-400) Neutrophils (%) (Auto) 84% (31-73) H Lymphocytes (%) (Auto) 7% (24-48) L Monocytes (%) (Auto) 9% (0-9) Eosinophils (%) (Auto) 0% (0-3) Basophils (%) (Auto) 1% (0-3) Neutrophils # (Auto) 5.6x10^3uL (1.8-7.7) Lymphocytes # (Auto) 0.4x10^3/uL (1.0-4.8) L Monocytes # (Auto) 0.6x10^3/uL (0.0-1.1) Eosinophils # (Auto) 0.0x10^3/uL (0.0-0.7) Basophils # (Auto) 0.0x10^3/uL (0.0-0.2) Sodium Level 149mmol/L (136-145) H Potassium Level 4.1mmol/L (3.5-5.1) Chloride Level 110mmol/L (98-107) H Carbon Dioxide Level 28mmol/L (21-32) Anion Gap 11 (6-14) Blood Urea Nitrogen 32mg/dL (7-20) H Creatinine 5.2mg/dL (0.6-1.0) H Estimated GFR (Cockcroft-Gault) 9.8 BUN/Creatinine Ratio 6 (6-20) Glucose Level 180mg/dL (70-99) H Calcium Level 8.4mg/dL (8.5-10.1) L Total Bilirubin 0.4mg/dL (0.2-1.0) Aspartate Amino Transferase (AST) 16U/L (15-37) Alanine Aminotransferase (ALT) 22U/L (14-59) Alkaline Phosphatase 115U/L (46-116) Troponin I Quantitative 0.053ng/mL (0.000-0.055) Total Protein 6.1g/dL (6.4-8.2) L Albumin 2.3g/dL (3.4-5.0) L Albumin/Globulin Ratio 0.6 (1.0-1.7) L Lipase 129U/L (73-393) Laboratory Tests 06/16/16 14:50 Laboratory Tests 06/16/16 14:50 EKG EKG EKG (my read): sinus rhythm, rate 90, LAD, RBBB, similar to prior 06/09/12 Radiology/Procedures Radiology/Procedures CXR: IMPRESSION: 1. Cardiomegaly. 2. Small bilateral pleural effusions with mild underlying basilar atelectasis. CT A/P: IMPRESSION: 1. Mild cardiomegaly. Small bilateral pleural effusions. Anasarca. 2. Indistinctness of the pancreatic head. Correlate for pancreatitis. 3. Multiple saccular aneurysms arise from the infrarenal aorta. These are not clearly changed. Maximum diameter measures up to 4.9 cm. Ongoing follow-up is recommended. 4. Wall thickening of the right colon may be from decompression or colitis. Correlate with symptoms. 5. Small right inguinal hernia contains only fat. 6. Small hiatal hernia with findings suggesting mild distal esophagitis. Course & Med Decision Making Course & Med Decision Making Pertinent Labs and Imaging studies reviewed. (See chart for details) Patient is 70 year old female who presents with multiple complaints. Will check EKG, CXR, CT A/P, labs to evaluate. Pain meds, steroids, duonebs, hydralazine ordered for relief of symptoms and for HTN. Imaging results as above. Labs notable for baseline anemia and hypernatremia. Discussed results with patient and family. Will admit to Dr. Cavazos for further evaluation and treatment. Dragon Disclaimer Dragon Disclaimer This electronic medical record was generated, in whole or in part, using a voice recognition dictation system. Departure Departure Impression: Primary Impression: COPD (chronic obstructive pulmonary disease) Additional Impression: Abdominal pain Disposition: ADMITTED INPATIENT Admitting Physician: Lili Cavazos Condition: STABLE Referrals: BERTO TORRES MD (PCP) Problem Qualifiers MONA PERES MD Jun 16, 2016 13:54
[2016-06-16] MEDS ORDERED: IPRATRPIUM/ALBUTEROL 0.5/2.5MG 3 ML NEBU. NEB ONE (14:00)
[2016-06-16] MEDS ORDERED: hydrALAZINE 20 MG/ML VIAL. IVP ONE (14:00)
[2016-06-16] MEDS ORDERED: PREDNISONE 10 MG TABLET PO ONE (14:00)
[2016-06-16] MEDS ORDERED: MORPHINE SULFATE 4 MG/ML DISP.SYRIN. IV ONE (14:00)
--- NOTE | 2016-06-16 14:18 | EKG ---
[facility] [address] [place] [id number] Test Date: 2016-06-16 Test Time: 13:46:31 Pat Name: WANDA PRABHAKAR Department: Room: Gender: F Tenderizer Tender: : 1945 Requested By: MONA PERES Order Number: [id number] Reading MD: Measurements Intervals [place] Rate: 90 P: -48 HI: 92 QRS: -48 QRSD: 132 T: 3 QT: 386 QTc: 477 Interpretive Statements SINUS ARRHYTHMIA ABNORMAL LEFT AXIS DEVIATION RIGHT BUNDLE BRANCH BLOCK RVH WITH REPOLARIZATION ABNORMALITY QRS(T) CONTOUR ABNORMALITY CONSIDER INFERIOR INFARCT RI6.01 Unconfirmed report No previous ECG available for comparison
--- NOTE | 2016-06-16 14:44 | RAD ---
Portable chest, 06/16/2016: History: Pneumonia, shortness of breath, cough Comparison is made to a study from 05/31/2016. The heart is enlarged. There is calcific plaquing of the aorta. The pulmonary vascularity is at the upper limits of normal. There is blunting of the lateral costophrenic angles compatible with a small amount of bilateral pleural fluid. There is mild underlying streaky basilar atelectasis. IMPRESSION: 1. Cardiomegaly. 2. Small bilateral pleural effusions with mild underlying basilar atelectasis.
--- NOTE | 2016-06-16 14:50 | RAD ---
EXAM: CT abdomen/pelvis without contrast. HISTORY: Abdominal pain. TECHNIQUE: Computed tomography of the abdomen and pelvis was performed without intravenous contrast. COMPARISON: 01/19/2016. FINDINGS: Lung windows through the visualized portions of the bases reveal mildly enlarged. There are atherosclerotic calcifications of the coronary arteries. There are small bilateral pleural effusions with associated atelectasis. There is a small hiatal hernia with mild distal esophageal wall thickening. Bone windows reveal no suspicious lesions. There is moderate to severe chronic small vessel ischemic white matter change within the lower lumbar spine. The left adrenal gland is diffusely thickened without a discrete mass. The right adrenal gland is thickened to a lesser degree. The liver, spleen, and gallbladder are unremarkable. The pancreatic head is somewhat indistinct without a clear discrete lesion. The pancreatic duct and common duct is not dilated. The left kidney is moderately atrophic. The right is unremarkable. There is no hydronephrosis. There is a saccular aneurysm along the left aspect of the infrarenal aorta measuring 2.2 x 1.9 cm. The main portion of the aorta measures 3.3 cm at this level. Including the aneurysm and measures 4.9 cm in greatest diameter. A second smaller saccular aneurysm anteriorly measures 1.8 cm. There is a calcified dissection flap more distally in the infrarenal aorta. There is a stent in the left common iliac artery. There is wall thickening of the ascending colon through the mid transverse portion. There is no drainable collection. There is only trace pelvic ascites. There is no obstruction. Diffuse body wall edema is consistent with anasarca. A small right inguinal hernia contains only fat. IMPRESSION: 1. Mild cardiomegaly. Small bilateral pleural effusions. Anasarca. 2. Indistinctness of the pancreatic head. Correlate for pancreatitis. 3. Multiple saccular aneurysms arise from the infrarenal aorta. These are not clearly changed. Maximum diameter measures up to 4.9 cm. Ongoing follow-up is recommended. 4. Wall thickening of the right colon may be from decompression or colitis. Correlate with symptoms. 5. Small right inguinal hernia contains only fat. 6. Small hiatal hernia with findings suggesting mild distal esophagitis. *One or more of the following individualized dose reduction techniques were utilized for this examination: 1. Automated exposure control. 2. Adjustment of the mA and/or kV according to patient size. 3. Use of iterative reconstruction technique.
[2016-06-16 15:06] LABS: BASO % 1 % (0-3); EOS % 0 % (0-3); HEMATOCRIT 29.6 % (36.0-47.0); HEMOGLOBIN 9.1 g/dL (12.0-15.5); LYMPH # 0.4 x10^3/uL (1.0-4.8); LYMPH % 7 % (24-48); MEAN CORPUSCULAR HEMOGLOBIN 31 pg (25-35); MEAN CORPUSCULAR HGB CONC 31 g/dL (31-37); MEAN CORPUSCULAR VOLUME 102 fL (79-100); MONO % 9 % (0-9); NEUT % 84 % (31-73); PLATELET COUNT 277 x10^3/uL (140-400); RED BLOOD COUNT 2.91 x10^6/uL (3.50-5.40); RED CELL DISTRIBUTION WIDTH 17.2 % (11.5-14.5); WHITE BLOOD COUNT 6.7 x10^3/uL (4.0-11.0)
[2016-06-16 15:16] LABS: CALCIUM 8.4 mg/dL (8.5-10.1); CREATININE 5.2 mg/dL (0.6-1.0); GFR 9.8; POTASSIUM 4.1 mmol/L (3.5-5.1)
[2016-06-16 15:21] LABS: ALBUMIN 2.3 g/dL (3.4-5.0); ALBUMIN/GLOBULIN RATIO 0.6 (1.0-1.7); TOTAL BILIRUBIN 0.4 mg/dL (0.2-1.0); TOTAL PROTEIN 6.1 g/dL (6.4-8.2)
[2016-06-16] MEDS ORDERED: DEXTROSE 50% 25 GM / 50ML DISP.SYRIN. IV PRN ×2 (16:00→17:15)
[2016-06-16] MEDS ORDERED: ONDANSETRON PF 4 MG/2 ML VIAL. IV PRN (16:00)
[2016-06-16] MEDS ORDERED: ACETAMINOPHEN 325 MG TABLET. PO PRN (16:00)
[2016-06-16] MEDS ORDERED: MORPHINE SULFATE 4 MG/ML DISP.SYRIN. IV PRN (16:00)
--- NOTE | 2016-06-16 16:52 | PDOC1 ---
History and Physical Date of Admission Date of Admission 06/16/16 Identification/Chief Complaint Chief Complaint abd pain, sob Problems: Source Source: Chart review, Patient History of Present Illness History of Present Illness HPI HPI Patient is a 70 year old female who is known to our group for CHF, copd, sob, esrd on HD, comes for sob and abd pain. She was here 2 weeks ago, for sob. sob worse 3 days after she was DCed, with mild cough, no fever, chills. home o2 was 3L, up to 4L since 2 weeks ago in hosp , but not require higher O2 for 2 weeks. whole abd pain, with diarrhea 4 times a day for 1 week, today is better. Pt went to urgent care for abd pain today, was found sat 70% on NC4L, then sent her here. Pt missed her HD and diuretics yesterday. still not using her CPAP coz not know how to use it. Past Medical History Cardiovascular: CAD, CHF, HTN, Hyperlipidemia, Other Pulmonary: Asthma, COPD, Other CENTRAL NERVOUS SYSTEM: Other GI: Diverticulosis Heme/Onc: Anemia NOS Psych: Anxiety Rheumatologic: No pertinent hx Infectious disease: No pertinent hx Renal/: Chronic renal failure Endocrine: Diabetes Past Surgical History Past Surgical History: Appendectomy, Arthroscopy, Other Family History Family History: Coronary Artery Disease, Diabetes, Hypertension Social History Smoke: Quit ALCOHOL: none Drugs: None Current Problem List Problem List Problems Medical Problems: (1) Abdominal pain Status: Acute (2) COPD (chronic obstructive pulmonary disease) Status: Acute (3) COPD exacerbation Status: Acute Current Medications Current Medications Current Medications Medications (Trade) Dose Ordered Sig/Eric Start Time Stop Time Status Last Admin Dose Admin Acetaminophen (Tylenol) 650 mg PRN Q4HRS PRN 06/16/16 16:00 06/17/16 15:59 Albuterol/ Ipratropium (Duoneb) 3 ml 1X ONCE 06/16/16 14:00 06/16/16 14:01 DC 06/16/16 14:47 3 ML Dextrose 12.5 gm PRN Q15MIN PRN 06/16/16 16:00 Hydralazine HCl (Apresoline) 10 mg 1X ONCE 06/16/16 14:00 06/16/16 14:01 DC 06/16/16 14:52 10 MG Insulin Aspart (Novolog) 0-7 UNITS TIDWMEALS 3/9/17 17:00 Morphine Sulfate 4 mg PRN Q2HR PRN 06/16/16 16:00 06/17/16 15:59 Ondansetron HCl (Zofran) 4 mg PRN Q8HRS PRN 06/16/16 16:00 06/17/16 15:59 Prednisone (Prednisone) 60 mg 1X ONCE 06/16/16 14:00 06/16/16 14:01 DC 06/16/16 14:52 60 MG Allergies Allergies Allergies Coded Allergies Type Severity Reaction Last Updated Verified Iodinated Contrast Media - Oral and Allergy Intermediate 06/19/15 Yes ROS Review of System CONSTITUTIONAL: No fever or chills EYES: No recent changes SKIN: No rash or itching CARDIOVASCULAR: No chest pain, syncope, palpitations, or edema RESPIRATORY: No SOB or cough GASTROINTESTINAL: No nausea, vomiting or abdominal pain NEUROLOGICAL: No headaches or weakness ENDOCRINE: No cold or heat intolerance GENITOURINARY: No urgency or frequency of urination MUSCULOSKELETAL: No back pain or joint pain LYMPHATICS: No enlarged lymph nodes PSYCHIATRIC: No anxiety or depression Physical Exam Physical Exam GEN.: No apparent distress. Alert and oriented. sob on NC 4L, mild. HEENT: Head is normocephalic, atraumatic NECK: Supple. LUNGS: bl decreased bs. HEART: RRR, S1, S2 present. Peripheral pulses intact ABDOMEN: Soft, Positive bowel sounds. diffuse mild tenderness. EXTREMITIES: Without any cyanosis. left leg chronic 1+ edema, right leg trace edema NEUROLOGIC: Normal speech, normal tone PSYCHIATRIC: Normal affect, normal mood. SKIN: No ulcerations Vitals Vitals Vital Signs Date Time Temp Pulse Resp B/P Pulse Ox O2 Delivery O2 Flow Rate FiO2 06/16/16 15:15 94 19 178/60 98 Nasal Cannula 4 06/16/16 13:40 98.5 98.5 Labs Labs Laboratory Tests Test 06/16/16 14:50 White Blood Count 6.7x10^3/uL (4.0-11.0) Red Blood Count 2.91x10^6/uL (3.50-5.40) Hemoglobin 9.1g/dL (12.0-15.5) Hematocrit 29.6% (36.0-47.0) Mean Corpuscular Volume 102fL (79-100) Mean Corpuscular Hemoglobin 31pg (25-35) Mean Corpuscular Hemoglobin Concent 31g/dL (31-37) Red Cell Distribution Width 17.2% (11.5-14.5) Platelet Count 277x10^3/uL (140-400) Neutrophils (%) (Auto) 84% (31-73) Lymphocytes (%) (Auto) 7% (24-48) Monocytes (%) (Auto) 9% (0-9) Eosinophils (%) (Auto) 0% (0-3) Basophils (%) (Auto) 1% (0-3) Neutrophils # (Auto) 5.6x10^3uL (1.8-7.7) Lymphocytes # (Auto) 0.4x10^3/uL (1.0-4.8) Monocytes # (Auto) 0.6x10^3/uL (0.0-1.1) Eosinophils # (Auto) 0.0x10^3/uL (0.0-0.7) Basophils # (Auto) 0.0x10^3/uL (0.0-0.2) Sodium Level 149mmol/L (136-145) Potassium Level 4.1mmol/L (3.5-5.1) Chloride Level 110mmol/L (98-107) Carbon Dioxide Level 28mmol/L (21-32) Anion Gap 11 (6-14) Blood Urea Nitrogen 32mg/dL (7-20) Creatinine 5.2mg/dL (0.6-1.0) Estimated GFR (Cockcroft-Gault) 9.8 BUN/Creatinine Ratio 6 (6-20) Glucose Level 180mg/dL (70-99) Calcium Level 8.4mg/dL (8.5-10.1) Total Bilirubin 0.4mg/dL (0.2-1.0) Aspartate Amino Transf (AST/SGOT) 16U/L (15-37) Alanine Aminotransferase (ALT/SGPT) 22U/L (14-59) Alkaline Phosphatase 115U/L (46-116) Troponin I Quantitative 0.053ng/mL (0.000-0.055) Total Protein 6.1g/dL (6.4-8.2) Albumin 2.3g/dL (3.4-5.0) Albumin/Globulin Ratio 0.6 (1.0-1.7) Lipase 129U/L (73-393) Laboratory Tests Test 06/16/16 14:50 White Blood Count 6.7x10^3/uL (4.0-11.0) Red Blood Count 2.91x10^6/uL (3.50-5.40) Hemoglobin 9.1g/dL (12.0-15.5) Hematocrit 29.6% (36.0-47.0) Mean Corpuscular Volume 102fL (79-100) Mean Corpuscular Hemoglobin 31pg (25-35) Mean Corpuscular Hemoglobin Concent 31g/dL (31-37) Red Cell Distribution Width 17.2% (11.5-14.5) Platelet Count 277x10^3/uL (140-400) Neutrophils (%) (Auto) 84% (31-73) Lymphocytes (%) (Auto) 7% (24-48) Monocytes (%) (Auto) 9% (0-9) Eosinophils (%) (Auto) 0% (0-3) Basophils (%) (Auto) 1% (0-3) Neutrophils # (Auto) 5.6x10^3uL (1.8-7.7) Lymphocytes # (Auto) 0.4x10^3/uL (1.0-4.8) Monocytes # (Auto) 0.6x10^3/uL (0.0-1.1) Eosinophils # (Auto) 0.0x10^3/uL (0.0-0.7) Basophils # (Auto) 0.0x10^3/uL (0.0-0.2) Sodium Level 149mmol/L (136-145) Potassium Level 4.1mmol/L (3.5-5.1) Chloride Level 110mmol/L (98-107) Carbon Dioxide Level 28mmol/L (21-32) Anion Gap 11 (6-14) Blood Urea Nitrogen 32mg/dL (7-20) Creatinine 5.2mg/dL (0.6-1.0) Estimated GFR (Cockcroft-Gault) 9.8 BUN/Creatinine Ratio 6 (6-20) Glucose Level 180mg/dL (70-99) Calcium Level 8.4mg/dL (8.5-10.1) Total Bilirubin 0.4mg/dL (0.2-1.0) Aspartate Amino Transf (AST/SGOT) 16U/L (15-37) Alanine Aminotransferase (ALT/SGPT) 22U/L (14-59) Alkaline Phosphatase 115U/L (46-116) Troponin I Quantitative 0.053ng/mL (0.000-0.055) Total Protein 6.1g/dL (6.4-8.2) Albumin 2.3g/dL (3.4-5.0) Albumin/Globulin Ratio 0.6 (1.0-1.7) Lipase 129U/L (73-393) VTE Prophylaxis Ordered VTE Prophylaxis Devices: No VTE Pharmacological Prophylaxi: Yes Assessment/Plan Assessment/Plan 1. Rprem-zz-veiwhkj DIAstolic congestive heart failure. 2. ESRD on HD MWF 3. Jhaqi-gj-jhrvrin respiratory failure. Hypoxia 4. abd pain 2/[address] 5. Diabetes mellitus 6. Hypertension urgency 7. Peripheral artery disease. 8. Hyperlipidemia. 9. Asthma 10. COPD 11. Diverticulosis 12. chronic anemia 2/2 CHF, ESRD 13. Anxiety low albumin 2/2 CHF, esrd hypernatremia h/o Coronary artery disease Multiple saccular aneurysms on CT hyperkalemia with esrd plan: 1 . card, pulm, vascular, gi ,renal consult 2. missed HD yesterday, need cont 3. cont home meds 4. check cdiff, STOOL CX levermir 20u qhs, ([id number]), SSI duoneb dvt ppx ptot AC LEAL MD Jun 16, 2016 16:52
[2016-06-16] MEDS ORDERED: GUAIFENESIN/CODEINE 100mg/10mg 5 ML LIQUID. PO PRN (17:00)
[2016-06-16] MEDS ORDERED: INSULIN ASPART 300 UNITS/3 ML INSULN.PEN SQ SCH (17:00)
[2016-06-16] MEDS ORDERED: NON FORMULARY ITEM ([Albuterol Sulfate] (Ventolin Neb Soln) 2.5 MG) NEB PRN (17:00)
--- NOTE | 2016-06-16 17:03 | ACF ---
Admission Forms Criteria COPD Clinical Indications for Admission to Inpatient Care (Place 'X' for any and all applicable criteria): Admission is indicated for ANY ONE of the following (1)(2)(3): [X]I. Acute exacerbation by high-risk comorbidity (e.g., pneumonia, dysrhythmia, heart failure, pleural effusion, pneumothorax) or severe underlying COPD (e.g., steroid dependent) [ ]II. Inpatient admission required rather than observation care (see Chronic Obstructive Pulmonary Disease: Observation Care) because of ANY ONE of the following: [ ]a) New or pre-existing signs or symptoms of COPD (eg, dyspnea or Tachypnea at rest or with minimal activity) that persist despite outpatient and observation care treatment [ ]b) New-onset hypoxemia (room air SaO2 less than 90%, PO2 less than 60 mm Hg (8.0 kPa)) that persists despite outpatient and observation care treatment [ ]c) Worsening of pre-existing hypoxemia (eg, new or increased requirement for supplemental oxygen to maintain oxygenation at baseline level) that persists despite outpatient and observation care treatment, with oxygen treatment needs performable only in acute inpatient setting [ ]d) Hypercarbia (PCO2 greater than 40 mm Hg (5.3 kPa))-induced respiratory acidosis (pH less than 7.35) that persists despite outpatient and observation care treatment [ ]e) Supplemental oxygen or respiratory treatments for over 24 hours that are performable only in acute inpatient setting [ ]f) Chest tube placement with active evacuation (e.g., suction, drainage) (5) [ ]g) Other condition, treatment or monitoring requiring inpatient admission [ ]III. Planned invasive surgical or diagnostic procedures requiring acute- care hospitalization [ ]IV. Acute respiratory failure (e.g., uncompensated hypercarbia, severe hypoxemia) [ ]V. Severe comorbid condition (e.g., severe steroid myopathy, acute vertebral fracture) that has acutely worsened pulmonary function [ ]. Confusion state, lethargy, obtundation, stupor or coma Extended stay beyond goal length of stay may be needed for (31)(32): [ ]a ) Respiratory Failure. [ ]b) Severe or persisting hypoxemia or hypercarbia [ ]c) Severe or persistent dyspnea [ ]d) Comorbidities (e.g. chronic heart failure, atrial fibrillation with rapid response, pneumonia) [ ]e) Malnutrition The original [facility] content created by [facility] has been revised. The portions of the content which have been revised are identified through the use of italic text or in bold, and [facility] has neither reviewed nor approved the modified material. All other unmodified content is copyright [facility]. Please see references footnoted in the original [facility] edition 2016 Admission Criteria Met?: Yes BERTIN SORTO Jun 16, 2016 17:03
[2016-06-16] MEDS ORDERED: hydrALAZINE 20 MG/ML VIAL. IVP PRN (17:15)
[2016-06-16] MEDS ORDERED: ALBUTEROL SULFATE 2.5 MG/3 ML NEBU. NEB PRN (17:15)
[2016-06-16 17:30] VITALS: BP 233/78
[2016-06-16 19:00] VITALS: BP 183/81
[2016-06-16] MEDS: IPRATRPIUM/ALBUTEROL 0.5/2.5MG 3 ML NEBU. NEB SCH (19:57)
[2016-06-16] MEDS ORDERED: DIPHENHYDRAMINE HCL 25 MG CAPSULE PO PRN (20:15)
[2016-06-16] MEDS: OXYBUTYNIN CHLORIDE 5 MG TABLET PO SCH (21:09)
[2016-06-16] MEDS: METOPROLOL TART IMMED RELEASE 50 MG TABLET PO SCH (21:10)
[2016-06-16] MEDS: HEPARIN PF for SUB-Q USE 5,000 UNIT/0.5 ML VIAL. SQ SCH (21:15)
[2016-06-16] MEDS: INSULIN DETEMIR 300 UNITS/3 ML INSULN.PEN. SQ SCH (22:31)
[2016-06-16 23:00] VITALS: BP 170/89
[2016-06-17 03:00] VITALS: BP 162/78
[2016-06-17] MEDS: HEPARIN PF for SUB-Q USE 5,000 UNIT/0.5 ML VIAL. SQ SCH ×3 (05:50→21:45)
[2016-06-17 06:23] LABS: CALCIUM 8.3 mg/dL (8.5-10.1); CREATININE 5.5 mg/dL (0.6-1.0); GFR 9.2
[2016-06-17 06:26] LABS: POTASSIUM 5.7 mmol/L (3.5-5.1)
--- NOTE | 2016-06-17 06:32 | PDOC ---
Provider Note Provider Note Vascular Consult dictated Imp: 4.9 cm asymptomatic AAA Plan: F/U 6 mo. in our Vas Lab with AAA U/S and appt. with ROSALIA Crooks MD Jun 17, 2016 06:32
[2016-06-17 07:00] VITALS: BP 160/6
[2016-06-17] MEDS: IPRATRPIUM/ALBUTEROL 0.5/2.5MG 3 ML NEBU. NEB SCH ×4 (07:39→19:45)
[2016-06-17] MEDS: POTASSIUM CHLORIDE 20 MEQ TABLET.ER. PO SCH (08:00)
[2016-06-17] MEDS ORDERED: ONDANSETRON PF 4 MG/2 ML VIAL. IV PRN (08:14)
[2016-06-17] MEDS: ASPIRIN 325 MG TABLET PO SCH (09:00)
[2016-06-17] MEDS: LINAGLIPTIN 5 MG TABLET PO SCH (09:00)
[2016-06-17] MEDS: FOLIC/VIT B COMP W-C (RENAL) TABLET. PO SCH (09:00)
[2016-06-17] MEDS: METOLAZONE 2.5 MG TABLET PO SCH (09:00)
[2016-06-17] MEDS: CLOPIDOGREL BISULFATE 75 MG TABLET PO SCH (09:00)
[2016-06-17] MEDS: LISINOPRIL 20 MG TABLET PO SCH (09:00)
[2016-06-17] MEDS: METOPROLOL TART IMMED RELEASE 50 MG TABLET PO SCH ×3 (09:00→20:07)
[2016-06-17] MEDS: ATORVASTATIN CALCIUM 10 MG TABLET. PO SCH (09:00)
[2016-06-17] MEDS: OXYBUTYNIN CHLORIDE 5 MG TABLET PO SCH ×3 (09:00→20:06)
[2016-06-17] MEDS: INSULIN ASPART 300 UNITS/3 ML INSULN.PEN SQ SCH ×3 (09:41→17:00)
--- NOTE | 2016-06-17 09:48 | PDOC2 ---
GI CONSULT Reason For Consult: Abd pain HPI: HPI: 70 y/o AA female known to GI/Dr. Low from previous evaluation in 01/2016 for abd pain thought to be 2/2 ischemia. Many chronic medical issues as below. On this occasion went to urgent care yesterday w/ diffuse abdominal pain, then sent to ER w/ low O2 sat. Missed last dialysis. Says she's had abd pain for awhile and was prescribed a medication (?steroid) that helped. Currently without pain. Had a little diarrhea yesterday w/o recurrence. Denies bleeding. Note h/o occasional diarrhea after eating. Has occasional heartburn improved w/ Maalox PRN. She told me in January she had never had a colonoscopy but now feels she did have one at some point. Also recalls previous EGD many years ago that showed a hiatal hernia. Significant labs: Hgb 9.1 (stable), Cr 5.5, K+ 5.7, normal LFTs and lipase. CT w/ wall thickening of right colon, small hiatal hernia w/ possible distal esophagitis, stable AAA, indistinctness of pancreatic head, anasarca, small pleural effusions. PMH: PMH: ESRD on HD MWF, CAD w/ stents on Plavix and aspirin, UT, CHF, HTN, HLD, DM, h/o UE DVT, pulmonary hypertension, COPD, OA, hiatal hernia, GERD, anemia of chronic disease, anxiety, rotator cuff surgery, appendectomy FH: Family History: No pertinent hx Social History: Smoke: Quit ALCOHOL: none Drugs: None ROS: GEN: Denies fevers, chills, sweats HEENT: Denies blurred vision, sore throat CV: Denies chest pain RESP: +SOA GI: Per HPI : Denies hematuria, dysuria ENDO: Denies weight changes NEURO: Denies confusion, dizziness MSK: leg swelling SKIN: Denies jaundice, pruritus VItals: Vitals: Vital Signs Date Time Temp Pulse Resp B/P Pulse Ox O2 Delivery O2 Flow Rate FiO2 06/17/16 07:40 100 Nasal Cannula 3.0 06/17/16 07:00 97.8 77 18 160/6 97.8 Labs: Labs: Laboratory Tests Test 06/16/16 14:50 06/17/16 05:00 06/17/16 07:30 White Blood Count 6.7x10^3/uL (4.0-11.0) Red Blood Count 2.91x10^6/uL (3.50-5.40) Hemoglobin 9.1g/dL (12.0-15.5) Hematocrit 29.6% (36.0-47.0) Mean Corpuscular Volume 102fL (79-100) Mean Corpuscular Hemoglobin 31pg (25-35) Mean Corpuscular Hemoglobin Concent 31g/dL (31-37) Red Cell Distribution Width 17.2% (11.5-14.5) Platelet Count 277x10^3/uL (140-400) Neutrophils (%) (Auto) 84% (31-73) Lymphocytes (%) (Auto) 7% (24-48) Monocytes (%) (Auto) 9% (0-9) Eosinophils (%) (Auto) 0% (0-3) Basophils (%) (Auto) 1% (0-3) Neutrophils # (Auto) 5.6x10^3uL (1.8-7.7) Lymphocytes # (Auto) 0.4x10^3/uL (1.0-4.8) Monocytes # (Auto) 0.6x10^3/uL (0.0-1.1) Eosinophils # (Auto) 0.0x10^3/uL (0.0-0.7) Basophils # (Auto) 0.0x10^3/uL (0.0-0.2) Sodium Level 149mmol/L (136-145) 144mmol/L (136-145) Potassium Level 4.1mmol/L (3.5-5.1) 5.7mmol/L (3.5-5.1) Chloride Level 110mmol/L (98-107) 110mmol/L (98-107) Carbon Dioxide Level 28mmol/L (21-32) 23mmol/L (21-32) Anion Gap 11 (6-14) 11 (6-14) Blood Urea Nitrogen 32mg/dL (7-20) 37mg/dL (7-20) Creatinine 5.2mg/dL (0.6-1.0) 5.5mg/dL (0.6-1.0) Estimated GFR (Cockcroft-Gault) 9.8 9.2 BUN/Creatinine Ratio 6 (6-20) Glucose Level 180mg/dL (70-99) 252mg/dL (70-99) Calcium Level 8.4mg/dL (8.5-10.1) 8.3mg/dL (8.5-10.1) Total Bilirubin 0.4mg/dL (0.2-1.0) Aspartate Amino Transf (AST/SGOT) 16U/L (15-37) Alanine Aminotransferase (ALT/SGPT) 22U/L (14-59) Alkaline Phosphatase 115U/L (46-116) Troponin I Quantitative 0.053ng/mL (0.000-0.055) Total Protein 6.1g/dL (6.4-8.2) Albumin 2.3g/dL (3.4-5.0) Albumin/Globulin Ratio 0.6 (1.0-1.7) Lipase 129U/L (73-393) Glucose (Fingerstick) 186mg/dL (70-99) Allergies: Coded Allergies: Iodinated Contrast Media - Oral and (Verified Allergy, Intermediate, ) Medications: Current Medications Medications (Trade) Dose Ordered Sig/Eric Route PRN Reason Start Time Stop Time Status Last Admin Dose Admin Albuterol/ Ipratropium (Duoneb) 3 ml 1X ONCE NEB 06/16/16 14:00 06/16/16 14:01 DC 06/16/16 14:47 Prednisone (Prednisone) 60 mg 1X ONCE PO 06/16/16 14:00 06/16/16 14:01 DC 06/16/16 14:52 Morphine Sulfate 4 mg 1X ONCE IV 06/16/16 14:00 06/16/16 14:01 DC 06/16/16 14:51 Hydralazine HCl (Apresoline) 10 mg 1X ONCE IVP 06/16/16 14:00 06/16/16 14:01 DC 06/16/16 14:52 Metoprolol Tartrate (Lopressor) 50 mg TID PO 06/16/16 21:00 06/16/16 21:10 Insulin Detemir (Levemir) 20 units QHS SQ 06/16/16 21:00 06/16/16 22:31 Oxybutynin Chloride (Ditropan) 5 mg [id number] PO 06/16/16 21:00 06/16/16 21:09 Albuterol/ Ipratropium (Duoneb) 3 ml QID NEB 06/16/16 21:00 06/17/16 07:39 Heparin Sodium (Porcine) 5,000 unit Q8HRS SQ 06/16/16 22:00 06/17/16 05:50 Diphenhydramine HCl (Benadryl) 25 mg PRN Q6HRS PRN PO ITCHING 06/16/16 20:15 06/16/16 21:10 Imaging: Imaging: CXR IMPRESSION: 1. Cardiomegaly. 2. Small bilateral pleural effusions with mild underlying basilar atelectasis. CT A/P w/o contrast IMPRESSION: 1. Mild cardiomegaly. Small bilateral pleural effusions. Anasarca. 2. Indistinctness of the pancreatic head. Correlate for pancreatitis. 3. Multiple saccular aneurysms arise from the infrarenal aorta. These are not clearly changed. Maximum diameter measures up to 4.9 cm. Ongoing follow-up is recommended. 4. Wall thickening of the right colon may be from decompression or colitis. Correlate with symptoms. 5. Small right inguinal hernia contains only fat. 6. Small hiatal hernia with findings suggesting mild distal esophagitis. PE: GEN: NAD HEENT: Atraumatic, PERRL LUNGS: decreased anteriorly w/ nasal cannula HEART: RRR ABD: BS+, S/ND/NT EXTREMITY: BLE edema SKIN: No rashes, no jaundice NEURO/PSYCH: A & O 3 OTHER: RN present A/P: A/P: Abdominal pain - resolved -history of this, possibly 2/[address] -wall thickening of right colon -anasarca, small pleural effusions. Heartburn -occasional, improved w/ Maalox -recalls previous EGD -CT w/ hiatal hernia, possible esophagitis CRC screen -now recalls previous colonoscopy AAA - stable -known to vascular surg, plans to monitor w/ imaging ESRD on HD, CAD, ACD -- Will review w/ Dr. Low. Pain possibly secondary to mesenteric ischemia. ?CTA at some point CHRISTIAN VU Jun 17, 2016 09:48
--- NOTE | 2016-06-17 09:52 | PDOC2 ---
CONSULT Date of Consult Date of Consult DATE: 06/17/16 TIME: 09:45 Reason for Consult Reason for Consult: ESRD and ^K Referring Physician Referring Physician: Dr Cavazos Identification/Chief Complaint Chief Complaint SOB, Abd Pain Problems: Source Source: Chart review, Patient History of Present Illness Reason for Visit: as reviewed Past Medical History Cardiovascular: CAD, CHF, HTN, Hyperlipidemia, Other Pulmonary: Asthma, COPD, Other CENTRAL NERVOUS SYSTEM: Other GI: Diverticulosis Heme/Onc: Anemia NOS Psych: Anxiety Rheumatologic: No pertinent hx Infectious disease: No pertinent hx Renal/: Chronic renal failure Endocrine: Diabetes Past Surgical History Past Surgical History: Appendectomy, Arthroscopy, Other Family History Family History: Coronary Artery Disease, Diabetes, Hypertension Social History Quit ALCOHOL: none Drugs: None Lives: with Family Current Problem List Problem List Problems Medical Problems: (1) Abdominal pain Status: Acute (2) COPD (chronic obstructive pulmonary disease) Status: Acute (3) COPD exacerbation Status: Acute Current Medications Current Medications Current Medications Albuterol/ Ipratropium (Duoneb) 3 ml 1X ONCE NEB Last administered on 14:47; Start 06/16/16 at 14:00; Stop 06/16/16 at 14:01; Status DC Prednisone (Prednisone) 60 mg 1X ONCE PO Last administered on 06/16/16 14:52; Start 06/16/16 at 14:00; Stop 06/16/16 at 14:01; Status DC Morphine Sulfate 4 mg 1X ONCE IV Last administered on 06/16/16 14:51; Start at 14:00; Stop 06/16/16 at 14:01; Status DC Hydralazine HCl (Apresoline) 10 mg 1X ONCE IVP Last administered on 06/16/16 14:52; Start 06/16/16 at 14:00; Stop 06/16/16 at 14:01; Status DC Ondansetron HCl (Zofran) 4 mg PRN Q8HRS PRN IV NAUSEA/VOMITING; Start 06/16/16 at 16:00; Stop 06/17/16 at 08:15; Status DC Morphine Sulfate 4 mg PRN Q2HR PRN IV PAIN; Start 06/16/16 at 16:00; Stop at 15:59 Acetaminophen (Tylenol) 650 mg PRN Q4HRS PRN PO FEVER; Start 06/16/16 at 16:00; Stop 06/17/16 at 15:59 Insulin Aspart (Novolog) 0-7 UNITS TIDWMEALS SQ ; Start 06/16/16 at 17:00; Stop 06/16/16 at 17:05; Status DC Dextrose 12.5 gm PRN Q15MIN PRN IV SEE COMMENTS; Start 06/16/16 at 16:00 Aspirin (Hung Aspirin) 325 mg DAILY PO ; Start 06/17/16 at 09:00 Atorvastatin Calcium (Lipitor) 30 mg DAILY PO ; Start 06/17/16 at 09:00 Clopidogrel Bisulfate (Plavix) 75 mg DAILY PO ; Start 06/17/16 at 09:00 Vitamin B Complex/ Vitamin C (Nephro-Jayme) 1 tab DAILY PO ; Start 06/17/16 at 09 :00 Guaifenesin/ Codeine Phosphate (Robitussin Ac) 5 ml PRN Q6HRS PRN PO COUGH; Start 06/16/16 at 17:00 Linagliptin (Tradjenta) 5 mg DAILY PO ; Start 06/17/16 at 09:00 Lisinopril (Prinivil) 20 mg DAILY PO ; Start 06/17/16 at 09:00 Metolazone (Zaroxolyn) 2.5 mg DAILY PO ; Start 06/17/16 at 09:00 Metoprolol Tartrate (Lopressor) 50 mg TID PO Last administered on 06/16/16 21: 10; Start 06/16/16 at 21:00 Potassium Chloride (Klor-Con) 20 meq DAILYWBKFT PO ; Start 06/17/16 at 08:00 Insulin Detemir (Levemir) 20 units QHS SQ Last administered on 06/16/16 22:31; Start 06/16/16 at 21:00 Oxybutynin Chloride (Ditropan) 5 mg [id number] PO Last administered on 06/16/16 21: 09; Start 06/16/16 at 21:00 Non-Formulary Medication 2.5 mg PRN Q4HRS PRN NEB SHORTNESS OF BREATH; Start at 17:00; Status UNV Insulin Aspart (Novolog) 0-9 UNITS TIDWMEALS SQ ; Start 06/17/16 at 08:00 Dextrose 12.5 gm PRN Q15MIN PRN IV SEE COMMENTS; Start 06/16/16 at 17:15; Status Cancel Albuterol/ Ipratropium (Duoneb) 3 ml QID NEB Last administered on 06/17/16 07: 39; Start 06/16/16 at 21:00 Hydralazine HCl (Apresoline) 10 mg PRN Q4HRS PRN IVP ELEVATED BP, SEE COMMENTS ; Start 06/16/16 at 17:15 Heparin Sodium (Porcine) 5,000 unit Q8HRS SQ Last administered on 06/17/16 05: 50; Start 06/16/16 at 22:00 Albuterol Sulfate (Ventolin Neb Soln) 2.5 mg PRN Q4HRS PRN NEB WHEEZING; Start 06/16/16 at 17:15 Diphenhydramine HCl (Benadryl) 25 mg PRN Q6HRS PRN PO ITCHING Last administered on 06/16/16 21:10; Start 06/16/16 at 20:15 Ondansetron HCl (Zofran) 4 mg PRN Q6HRS PRN IV NAUSEA/VOMITING; Start 06/17/16 at 08:14 Acetaminophen/ Hydrocodone Bitart (Lortab 5/325) 1 tab PRN Q4HRS PRN PO PAIN; Start 06/17/16 at 08:15 Active Scripts Active Lisinopril 20 Mg Tablet 20 Tab PO DAILY Klor-Con M20 (Potassium Chloride) 20 Meq Tab.er.prt 20 Meq PO DAILYWBKFT [Albuterol Sulfate] 2.5 MG/3 ML Nebu 2.5 Mg NEB PRN Q4HRS PRN Tradjenta (Linagliptin) 5 Mg Tablet 5 Mg PO DAILY Reported Lantus Solostar (Insulin Glargine,Hum.rec.anlog) 100 Unit/1 Ml Insuln.pen 30 Unit SQ QHS Marina-Jayme Tablet (Folic Acid/Vitamin B Comp W-C) 0.8 Mg Tablet 0.8 Mg PO Metolazone 2.5 Mg Tablet 2.5 Mg PO DAILY Metoprolol Tartrate 50 Mg Tablet 1 Tab PO TID Atorvastatin Calcium 20 Mg Tablet 30 Mg PO DAILY Aspirin 325 Mg Tablet 1 Tab PO DAILY Tolterodine Tartrate 2 Mg Tablet 4 Mg PO DAILY Plavix (Clopidogrel Bisulfate) 75 Mg Tablet 75 Mg PO DAILY Allergies Allergies: Coded Allergies: Iodinated Contrast Media - Oral and (Verified Allergy, Intermediate, ) ROS Review of System GEN: subj Fevers ? Chills EYES: no new Visual Complaints ENT: no EN Drainage no Hearing deficiets CVS: no Orthopnea no CP RESP: + SOB + TAYLOR + cough GI: + Nausea + Vomiting : no Dysuria no Urgency HEME: no easy bruising no Palp Ly Nodes NEURO no Focal Weakness no Sz PSYCH: no Suicidal Ideation no Depression SKIN: no Rashes ENDO: no Polyuria or Polydipsia no Hot/Cold Intolerance MU SK: ch Arthraigia no Myalgia Physical Exam Physical Exam General Appearance: Awake Alert Oriented x 3 In no Distress Eyes: VIsion Unchanged Conjunctiva Normal EN: No EN Drainage Mucous Memb. moist Neck: min JVD + JVP Supple no Thyromegaly CVS: S1 S2 + Murmur No Gallop No Rub tr Edema Resp: few basal Rales occ Rhonchi no Acc. Muscle use GI: BAS +ve NO Bruit Non Tender Non Distended : no CVA tenderness; no Suprapubic Tenderness SKIN: no Rashes Breast Exam deferred Mu.Sk: Adequate ROM no Muscle Atrophy Heme: Unable to palpate Obvious LAD no palp Splenomegaly NEURO: Good Strength and Tone Cranial Nerves II - XII grossly intact Psych: not Depressed no Active hallucination Vital Signs Vital Signs Date Time Temp Pulse Resp B/P Pulse Ox O2 Delivery O2 Flow Rate FiO2 06/17/16 07:40 100 Nasal Cannula 3.0 06/17/16 07:00 97.8 77 18 160/6 97.8 Assessment & Plan ESRD : Dialysis as below F 180 NR 3.5 Hrs 2 K 2.5 Ca 140 Na [id number] Qb 350 + Qd 500+ Heparin 0 Units Uf 1 -2 kg below dry weight as tolerated May give 25-50 gms of 25% Albumin if needed to maintain Hemodynamic stability Treatment plan reviewed and discussed with genomics scientist Next HD on Monday for missed HD Wed. Anemia: Epogen as ordered; Transfuse with next HD as needed if hgb < 7.0 ; reval for rise after Uf on HD HTN: Current BP meds reviewed. See orders for changes. reval for improvement after Uf on HD SOb - Suspect fl overload vs COPD Exac - will rechallenge D/wt Anasarca on CT - rechallenge Dry wt Bone & Mineral: follow phos and alter binder regimen based on PO itnake and trend. AAA - ? Vascular surgery eval in light of ongoing Abd Pain Discussed Plan of Care and prognosis etc. at length with family. Labs Labs Laboratory Tests Test 06/16/16 14:50 06/17/16 05:00 06/17/16 07:30 White Blood Count 6.7x10^3/uL (4.0-11.0) Red Blood Count 2.91x10^6/uL (3.50-5.40) Hemoglobin 9.1g/dL (12.0-15.5) Hematocrit 29.6% (36.0-47.0) Mean Corpuscular Volume 102fL (79-100) Mean Corpuscular Hemoglobin 31pg (25-35) Mean Corpuscular Hemoglobin Concent 31g/dL (31-37) Red Cell Distribution Width 17.2% (11.5-14.5) Platelet Count 277x10^3/uL (140-400) Neutrophils (%) (Auto) 84% (31-73) Lymphocytes (%) (Auto) 7% (24-48) Monocytes (%) (Auto) 9% (0-9) Eosinophils (%) (Auto) 0% (0-3) Basophils (%) (Auto) 1% (0-3) Neutrophils # (Auto) 5.6x10^3uL (1.8-7.7) Lymphocytes # (Auto) 0.4x10^3/uL (1.0-4.8) Monocytes # (Auto) 0.6x10^3/uL (0.0-1.1) Eosinophils # (Auto) 0.0x10^3/uL (0.0-0.7) Basophils # (Auto) 0.0x10^3/uL (0.0-0.2) Sodium Level 149mmol/L (136-145) 144mmol/L (136-145) Potassium Level 4.1mmol/L (3.5-5.1) 5.7mmol/L (3.5-5.1) Chloride Level 110mmol/L (98-107) 110mmol/L (98-107) Carbon Dioxide Level 28mmol/L (21-32) 23mmol/L (21-32) Anion Gap 11 (6-14) 11 (6-14) Blood Urea Nitrogen 32mg/dL (7-20) 37mg/dL (7-20) Creatinine 5.2mg/dL (0.6-1.0) 5.5mg/dL (0.6-1.0) Estimated GFR (Cockcroft-Gault) 9.8 9.2 BUN/Creatinine Ratio 6 (6-20) Glucose Level 180mg/dL (70-99) 252mg/dL (70-99) Calcium Level 8.4mg/dL (8.5-10.1) 8.3mg/dL (8.5-10.1) Total Bilirubin 0.4mg/dL (0.2-1.0) Aspartate Amino Transf (AST/SGOT) 16U/L (15-37) Alanine Aminotransferase (ALT/SGPT) 22U/L (14-59) Alkaline Phosphatase 115U/L (46-116) Troponin I Quantitative 0.053ng/mL (0.000-0.055) Total Protein 6.1g/dL (6.4-8.2) Albumin 2.3g/dL (3.4-5.0) Albumin/Globulin Ratio 0.6 (1.0-1.7) Lipase 129U/L (73-393) Glucose (Fingerstick) 186mg/dL (70-99) Laboratory Tests Test 06/16/16 14:50 06/17/16 05:00 06/17/16 07:30 White Blood Count 6.7x10^3/uL (4.0-11.0) Red Blood Count 2.91x10^6/uL (3.50-5.40) Hemoglobin 9.1g/dL (12.0-15.5) Hematocrit 29.6% (36.0-47.0) Mean Corpuscular Volume 102fL (79-100) Mean Corpuscular Hemoglobin 31pg (25-35) Mean Corpuscular Hemoglobin Concent 31g/dL (31-37) Red Cell Distribution Width 17.2% (11.5-14.5) Platelet Count 277x10^3/uL (140-400) Neutrophils (%) (Auto) 84% (31-73) Lymphocytes (%) (Auto) 7% (24-48) Monocytes (%) (Auto) 9% (0-9) Eosinophils (%) (Auto) 0% (0-3) Basophils (%) (Auto) 1% (0-3) Neutrophils # (Auto) 5.6x10^3uL (1.8-7.7) Lymphocytes # (Auto) 0.4x10^3/uL (1.0-4.8) Monocytes # (Auto) 0.6x10^3/uL (0.0-1.1) Eosinophils # (Auto) 0.0x10^3/uL (0.0-0.7) Basophils # (Auto) 0.0x10^3/uL (0.0-0.2) Sodium Level 149mmol/L (136-145) 144mmol/L (136-145) Potassium Level 4.1mmol/L (3.5-5.1) 5.7mmol/L (3.5-5.1) Chloride Level 110mmol/L (98-107) 110mmol/L (98-107) Carbon Dioxide Level 28mmol/L (21-32) 23mmol/L (21-32) Anion Gap 11 (6-14) 11 (6-14) Blood Urea Nitrogen 32mg/dL (7-20) 37mg/dL (7-20) Creatinine 5.2mg/dL (0.6-1.0) 5.5mg/dL (0.6-1.0) Estimated GFR (Cockcroft-Gault) 9.8 9.2 BUN/Creatinine Ratio 6 (6-20) Glucose Level 180mg/dL (70-99) 252mg/dL (70-99) Calcium Level 8.4mg/dL (8.5-10.1) 8.3mg/dL (8.5-10.1) Total Bilirubin 0.4mg/dL (0.2-1.0) Aspartate Amino Transf (AST/SGOT) 16U/L (15-37) Alanine Aminotransferase (ALT/SGPT) 22U/L (14-59) Alkaline Phosphatase 115U/L (46-116) Troponin I Quantitative 0.053ng/mL (0.000-0.055) Total Protein 6.1g/dL (6.4-8.2) Albumin 2.3g/dL (3.4-5.0) Albumin/Globulin Ratio 0.6 (1.0-1.7) Lipase 129U/L (73-393) Glucose (Fingerstick) 186mg/dL (70-99) Images Images 1. Mild cardiomegaly. Small bilateral pleural effusions. Anasarca. 2. Indistinctness of the pancreatic head. Correlate for pancreatitis. 3. Multiple saccular aneurysms arise from the infrarenal aorta. These are not clearly changed. Maximum diameter measures up to 4.9 cm. Ongoing follow-up is recommended. 4. Wall thickening of the right colon may be from decompression or colitis. Correlate with symptoms. 5. Small right inguinal hernia contains only fat. 6. Small hiatal hernia with findings suggesting mild distal esophagitis. WENDI SUAREZ MD Jun 17, 2016 09:52
[2016-06-17] MEDS ORDERED: ALPRAZOLAM 0.5 MG TABLET PO ONE (10:00)
--- NOTE | 2016-06-17 10:05 | PDOC ---
PROGRESS NOTES Chief Complaint Chief Complaint 1. Pbcrq-ry-njrokxf DIAstolic congestive heart failure. 2. ESRD on HD MWF 3. Mdkac-cf-tnnchqu respiratory failure. Hypoxia 4. abd pain 2/[address] 5. Diabetes mellitus 6. Hypertension urgency 7. Peripheral artery disease. 8. Hyperlipidemia. 9. Asthma 10. COPD 11. Diverticulosis 12. chronic anemia 2/2 CHF, ESRD 13. Anxiety History of Present Illness History of Present Illness SOa better Requests for anxiety pill today prior to HD Her schedule is MWF LAbs reviewed, BS ok CAme in for SOA and abd pain Tolerating PO, no emesis PLAN: HD today Xanax now then prn HOme weekend of no acute issues Vitals Vitals Vital Signs Date Time Temp Pulse Resp B/P Pulse Ox O2 Delivery O2 Flow Rate FiO2 06/17/16 07:40 100 Nasal Cannula 3.0 06/17/16 07:00 97.8 77 18 160/6 97.8 Physical Exam Lungs: Clear Labs LABS Laboratory Tests Test 06/16/16 14:50 06/17/16 05:00 06/17/16 07:30 White Blood Count 6.7x10^3/uL (4.0-11.0) Red Blood Count 2.91x10^6/uL (3.50-5.40) Hemoglobin 9.1g/dL (12.0-15.5) Hematocrit 29.6% (36.0-47.0) Mean Corpuscular Volume 102fL (79-100) Mean Corpuscular Hemoglobin 31pg (25-35) Mean Corpuscular Hemoglobin Concent 31g/dL (31-37) Red Cell Distribution Width 17.2% (11.5-14.5) Platelet Count 277x10^3/uL (140-400) Neutrophils (%) (Auto) 84% (31-73) Lymphocytes (%) (Auto) 7% (24-48) Monocytes (%) (Auto) 9% (0-9) Eosinophils (%) (Auto) 0% (0-3) Basophils (%) (Auto) 1% (0-3) Neutrophils # (Auto) 5.6x10^3uL (1.8-7.7) Lymphocytes # (Auto) 0.4x10^3/uL (1.0-4.8) Monocytes # (Auto) 0.6x10^3/uL (0.0-1.1) Eosinophils # (Auto) 0.0x10^3/uL (0.0-0.7) Basophils # (Auto) 0.0x10^3/uL (0.0-0.2) Sodium Level 149mmol/L (136-145) 144mmol/L (136-145) Potassium Level 4.1mmol/L (3.5-5.1) 5.7mmol/L (3.5-5.1) Chloride Level 110mmol/L (98-107) 110mmol/L (98-107) Carbon Dioxide Level 28mmol/L (21-32) 23mmol/L (21-32) Anion Gap 11 (6-14) 11 (6-14) Blood Urea Nitrogen 32mg/dL (7-20) 37mg/dL (7-20) Creatinine 5.2mg/dL (0.6-1.0) 5.5mg/dL (0.6-1.0) Estimated GFR (Cockcroft-Gault) 9.8 9.2 BUN/Creatinine Ratio 6 (6-20) Glucose Level 180mg/dL (70-99) 252mg/dL (70-99) Calcium Level 8.4mg/dL (8.5-10.1) 8.3mg/dL (8.5-10.1) Total Bilirubin 0.4mg/dL (0.2-1.0) Aspartate Amino Transf (AST/SGOT) 16U/L (15-37) Alanine Aminotransferase (ALT/SGPT) 22U/L (14-59) Alkaline Phosphatase 115U/L (46-116) Troponin I Quantitative 0.053ng/mL (0.000-0.055) Total Protein 6.1g/dL (6.4-8.2) Albumin 2.3g/dL (3.4-5.0) Albumin/Globulin Ratio 0.6 (1.0-1.7) Lipase 129U/L (73-393) Glucose (Fingerstick) 186mg/dL (70-99) Review of Systems Review of Systems no soa, cp or emesis, anxiety though Assessment and Plan Assessmemt and Plan Problems Medical Problems: (1) Abdominal pain Status: Acute (2) COPD (chronic obstructive pulmonary disease) Status: Acute (3) COPD exacerbation Status: Acute Problems: Comment Review of Relevant I have reviewed the following items mykel (where applicable) has been applied. Labs Laboratory Tests Test 06/16/16 14:50 06/17/16 05:00 06/17/16 07:30 White Blood Count 6.7x10^3/uL (4.0-11.0) Red Blood Count 2.91x10^6/uL (3.50-5.40) Hemoglobin 9.1g/dL (12.0-15.5) Hematocrit 29.6% (36.0-47.0) Mean Corpuscular Volume 102fL (79-100) Mean Corpuscular Hemoglobin 31pg (25-35) Mean Corpuscular Hemoglobin Concent 31g/dL (31-37) Red Cell Distribution Width 17.2% (11.5-14.5) Platelet Count 277x10^3/uL (140-400) Neutrophils (%) (Auto) 84% (31-73) Lymphocytes (%) (Auto) 7% (24-48) Monocytes (%) (Auto) 9% (0-9) Eosinophils (%) (Auto) 0% (0-3) Basophils (%) (Auto) 1% (0-3) Neutrophils # (Auto) 5.6x10^3uL (1.8-7.7) Lymphocytes # (Auto) 0.4x10^3/uL (1.0-4.8) Monocytes # (Auto) 0.6x10^3/uL (0.0-1.1) Eosinophils # (Auto) 0.0x10^3/uL (0.0-0.7) Basophils # (Auto) 0.0x10^3/uL (0.0-0.2) Sodium Level 149mmol/L (136-145) 144mmol/L (136-145) Potassium Level 4.1mmol/L (3.5-5.1) 5.7mmol/L (3.5-5.1) Chloride Level 110mmol/L (98-107) 110mmol/L (98-107) Carbon Dioxide Level 28mmol/L (21-32) 23mmol/L (21-32) Anion Gap 11 (6-14) 11 (6-14) Blood Urea Nitrogen 32mg/dL (7-20) 37mg/dL (7-20) Creatinine 5.2mg/dL (0.6-1.0) 5.5mg/dL (0.6-1.0) Estimated GFR (Cockcroft-Gault) 9.8 9.2 BUN/Creatinine Ratio 6 (6-20) Glucose Level 180mg/dL (70-99) 252mg/dL (70-99) Calcium Level 8.4mg/dL (8.5-10.1) 8.3mg/dL (8.5-10.1) Total Bilirubin 0.4mg/dL (0.2-1.0) Aspartate Amino Transf (AST/SGOT) 16U/L (15-37) Alanine Aminotransferase (ALT/SGPT) 22U/L (14-59) Alkaline Phosphatase 115U/L (46-116) Troponin I Quantitative 0.053ng/mL (0.000-0.055) Total Protein 6.1g/dL (6.4-8.2) Albumin 2.3g/dL (3.4-5.0) Albumin/Globulin Ratio 0.6 (1.0-1.7) Lipase 129U/L (73-393) Glucose (Fingerstick) 186mg/dL (70-99) Laboratory Tests Test 06/16/16 14:50 06/17/16 05:00 06/17/16 07:30 White Blood Count 6.7x10^3/uL (4.0-11.0) Red Blood Count 2.91x10^6/uL (3.50-5.40) Hemoglobin 9.1g/dL (12.0-15.5) Hematocrit 29.6% (36.0-47.0) Mean Corpuscular Volume 102fL (79-100) Mean Corpuscular Hemoglobin 31pg (25-35) Mean Corpuscular Hemoglobin Concent 31g/dL (31-37) Red Cell Distribution Width 17.2% (11.5-14.5) Platelet Count 277x10^3/uL (140-400) Neutrophils (%) (Auto) 84% (31-73) Lymphocytes (%) (Auto) 7% (24-48) Monocytes (%) (Auto) 9% (0-9) Eosinophils (%) (Auto) 0% (0-3) Basophils (%) (Auto) 1% (0-3) Neutrophils # (Auto) 5.6x10^3uL (1.8-7.7) Lymphocytes # (Auto) 0.4x10^3/uL (1.0-4.8) Monocytes # (Auto) 0.6x10^3/uL (0.0-1.1) Eosinophils # (Auto) 0.0x10^3/uL (0.0-0.7) Basophils # (Auto) 0.0x10^3/uL (0.0-0.2) Sodium Level 149mmol/L (136-145) 144mmol/L (136-145) Potassium Level 4.1mmol/L (3.5-5.1) 5.7mmol/L (3.5-5.1) Chloride Level 110mmol/L (98-107) 110mmol/L (98-107) Carbon Dioxide Level 28mmol/L (21-32) 23mmol/L (21-32) Anion Gap 11 (6-14) 11 (6-14) Blood Urea Nitrogen 32mg/dL (7-20) 37mg/dL (7-20) Creatinine 5.2mg/dL (0.6-1.0) 5.5mg/dL (0.6-1.0) Estimated GFR (Cockcroft-Gault) 9.8 9.2 BUN/Creatinine Ratio 6 (6-20) Glucose Level 180mg/dL (70-99) 252mg/dL (70-99) Calcium Level 8.4mg/dL (8.5-10.1) 8.3mg/dL (8.5-10.1) Total Bilirubin 0.4mg/dL (0.2-1.0) Aspartate Amino Transf (AST/SGOT) 16U/L (15-37) Alanine Aminotransferase (ALT/SGPT) 22U/L (14-59) Alkaline Phosphatase 115U/L (46-116) Troponin I Quantitative 0.053ng/mL (0.000-0.055) Total Protein 6.1g/dL (6.4-8.2) Albumin 2.3g/dL (3.4-5.0) Albumin/Globulin Ratio 0.6 (1.0-1.7) Lipase 129U/L (73-393) Glucose (Fingerstick) 186mg/dL (70-99) Medications Current Medications Albuterol/ Ipratropium (Duoneb) 3 ml 1X ONCE NEB Last administered on 14:47; Start 06/16/16 at 14:00; Stop 06/16/16 at 14:01; Status DC Prednisone (Prednisone) 60 mg 1X ONCE PO Last administered on 06/16/16 14:52; Start 06/16/16 at 14:00; Stop 06/16/16 at 14:01; Status DC Morphine Sulfate 4 mg 1X ONCE IV Last administered on 06/16/16 14:51; Start at 14:00; Stop 06/16/16 at 14:01; Status DC Hydralazine HCl (Apresoline) 10 mg 1X ONCE IVP Last administered on 06/16/16 14:52; Start 06/16/16 at 14:00; Stop 06/16/16 at 14:01; Status DC Ondansetron HCl (Zofran) 4 mg PRN Q8HRS PRN IV NAUSEA/VOMITING; Start 06/16/16 at 16:00; Stop 06/17/16 at 08:15; Status DC Morphine Sulfate 4 mg PRN Q2HR PRN IV PAIN; Start 06/16/16 at 16:00; Stop at 15:59 Acetaminophen (Tylenol) 650 mg PRN Q4HRS PRN PO FEVER; Start 06/16/16 at 16:00; Stop 06/17/16 at 15:59 Insulin Aspart (Novolog) 0-7 UNITS TIDWMEALS SQ ; Start 06/16/16 at 17:00; Stop 06/16/16 at 17:05; Status DC Dextrose 12.5 gm PRN Q15MIN PRN IV SEE COMMENTS; Start 06/16/16 at 16:00 Aspirin (Hung Aspirin) 325 mg DAILY PO ; Start 06/17/16 at 09:00 Atorvastatin Calcium (Lipitor) 30 mg DAILY PO ; Start 06/17/16 at 09:00 Clopidogrel Bisulfate (Plavix) 75 mg DAILY PO ; Start 06/17/16 at 09:00 Vitamin B Complex/ Vitamin C (Nephro-Jayme) 1 tab DAILY PO ; Start 06/17/16 at 09 :00 Guaifenesin/ Codeine Phosphate (Robitussin Ac) 5 ml PRN Q6HRS PRN PO COUGH; Start 06/16/16 at 17:00 Linagliptin (Tradjenta) 5 mg DAILY PO ; Start 06/17/16 at 09:00 Lisinopril (Prinivil) 20 mg DAILY PO ; Start 06/17/16 at 09:00 Metolazone (Zaroxolyn) 2.5 mg DAILY PO ; Start 06/17/16 at 09:00 Metoprolol Tartrate (Lopressor) 50 mg TID PO Last administered on 06/16/16 21: 10; Start 06/16/16 at 21:00 Potassium Chloride (Klor-Con) 20 meq DAILYWBKFT PO ; Start 06/17/16 at 08:00 Insulin Detemir (Levemir) 20 units QHS SQ Last administered on 06/16/16 22:31; Start 06/16/16 at 21:00 Oxybutynin Chloride (Ditropan) 5 mg [id number] PO Last administered on 06/16/16 21: 09; Start 06/16/16 at 21:00 Non-Formulary Medication 2.5 mg PRN Q4HRS PRN NEB SHORTNESS OF BREATH; Start at 17:00; Status UNV Insulin Aspart (Novolog) 0-9 UNITS TIDWMEALS SQ Last administered on 06/17/16 09:41; Start 06/17/16 at 08:00 Dextrose 12.5 gm PRN Q15MIN PRN IV SEE COMMENTS; Start 06/16/16 at 17:15; Status Cancel Albuterol/ Ipratropium (Duoneb) 3 ml QID NEB Last administered on 06/17/16 07: 39; Start 06/16/16 at 21:00 Hydralazine HCl (Apresoline) 10 mg PRN Q4HRS PRN IVP ELEVATED BP, SEE COMMENTS ; Start 06/16/16 at 17:15 Heparin Sodium (Porcine) 5,000 unit Q8HRS SQ Last administered on 3/10/17at 05: 50; Start 06/16/16 at 22:00 Albuterol Sulfate (Ventolin Neb Soln) 2.5 mg PRN Q4HRS PRN NEB WHEEZING; Start 06/16/16 at 17:15 Diphenhydramine HCl (Benadryl) 25 mg PRN Q6HRS PRN PO ITCHING Last administered on 06/16/16 21:10; Start 06/16/16 at 20:15 Ondansetron HCl (Zofran) 4 mg PRN Q6HRS PRN IV NAUSEA/VOMITING; Start 06/17/16 at 08:14 Acetaminophen/ Hydrocodone Bitart (Lortab 5/325) 1 tab PRN Q4HRS PRN PO PAIN; Start 06/17/16 at 08:15 Alprazolam (Xanax) 0.5 mg 1X ONCE PO Last administered on 06/17/16 09:59; Start 06/17/16 at 10:00; Stop 06/17/16 at 10:01; Status DC Active Scripts Active Lisinopril 20 Mg Tablet 20 Tab PO DAILY Klor-Con M20 (Potassium Chloride) 20 Meq Tab.er.prt 20 Meq PO DAILYWBKFT [Albuterol Sulfate] 2.5 MG/3 ML Nebu 2.5 Mg NEB PRN Q4HRS PRN Tradjenta (Linagliptin) 5 Mg Tablet 5 Mg PO DAILY Reported Lantus Solostar (Insulin Glargine,Hum.rec.anlog) 100 Unit/1 Ml Insuln.pen 30 Unit SQ QHS Marina-Jayme Tablet (Folic Acid/Vitamin B Comp W-C) 0.8 Mg Tablet 0.8 Mg PO Metolazone 2.5 Mg Tablet 2.5 Mg PO DAILY Metoprolol Tartrate 50 Mg Tablet 1 Tab PO TID Atorvastatin Calcium 20 Mg Tablet 30 Mg PO DAILY Aspirin 325 Mg Tablet 1 Tab PO DAILY Tolterodine Tartrate 2 Mg Tablet 4 Mg PO DAILY Plavix (Clopidogrel Bisulfate) 75 Mg Tablet 75 Mg PO DAILY Vitals/I & O Vital Sign - Last 24 Hours 06/16/16 06/16/16 06/16/16 06/16/16 13:40 13:40 14:13 14:37 Temp 98.5 98.5 Pulse 100 102 Resp 20 26 B/P 227/105 227/105 232/93 Pulse Ox 93 93 98 O2 Delivery Nasal Cannula Nasal Cannula Nasal Cannula O2 Flow Rate 4 4 4.0 06/16/16 06/16/16 06/16/16 06/16/16 14:48 14:51 14:52 15:13 Pulse 100 95 88 Resp 24 24 B/P 207/96 227/105 194/84 Pulse Ox 96 95 98 O2 Delivery Nasal Cannula Nasal Cannula Nasal Cannula O2 Flow Rate 4 4.0 4 06/16/16 06/16/16 06/16/16 06/16/16 15:15 15:43 16:13 16:43 Pulse 94 92 94 90 Resp 19 22 26 26 B/P 178/60 200/78 206/87 189/77 Pulse Ox 98 96 97 98 O2 Delivery Nasal Cannula Nasal Cannula Nasal Cannula Nasal Cannula O2 Flow Rate 4 4 4 4 06/16/16 06/16/16 06/16/16 06/16/16 17:13 17:30 18:00 19:00 Temp 97.7 97.9 97.7 97.9 Pulse 102 109 99 Resp 18 20 B/P 193/84 233/78 183/81 Pulse Ox 99 92 98 O2 Delivery Nasal Cannula Nasal Cannula Nasal Cannula Nasal Cannula O2 Flow Rate 4 4.0 4.0 06/16/16 06/16/16 06/16/16 06/16/16 19:59 20:10 21:10 23:00 Temp 98.0 98.0 Pulse 99 75 Resp 20 B/P 183/81 170/89 Pulse Ox 100 99 O2 Delivery Nasal Cannula Nasal Cannula Nasal Cannula O2 Flow Rate 4.0 4.0 06/17/16 06/17/16 06/17/16 03:00 07:00 07:40 Temp 97.9 97.8 97.9 97.8 Pulse 77 77 Resp 20 18 B/P 162/78 160/6 Pulse Ox 96 100 100 O2 Delivery Room Air Nasal Cannula Nasal Cannula O2 Flow Rate 4.0 3.0 Intake and Output 06/16/16 06/16/16 06/17/16 15:00 23:00 07:00 Intake Total 240 ml 650 ml Balance 240 ml 650 ml CARMELA TAYLOR MD Jun 17, 2016 10:05
[2016-06-17] MEDS ORDERED: ALPRAZOLAM 0.25 MG TABLET PO PRN (10:15)
--- NOTE | 2016-06-17 10:35 | PDOC2 ---
DARSHANA PEPE DRUPAL ARCHITECT 06/17/16 1035: CARDIAC CONSULT DATE OF CONSULT Date of Consult DATE: 06/17/16 TIME: 10:27 REASON FOR CONSULT Reason for Consult: CHF REFERRING PHYSICIAN Referring Physician: Dr. Cavazos SOURCE Source: Chart review, Patient HISTORY OF PRESENT ILLNESS HISTORY OF PRESENT ILLNESS This is a 70 yo female, with extensive medical history as noted below, who presented secondary to abdominal pain, shortness of breath, and hypoxia. Patient reports experiencing abdominal pain/cramping yesterday and the day prior. Went to urgent care; was transferred to [facility] due to low oxygen saturations. Patient reports she has been mildly short of breath over the last couple of days. Arsenio any orthopnea. Minimal LE edema. Arsenio CP, palpitations, dizziness, or diaphoresis. H/o PENNY- noncompliant with CPAP. Additionally reports noncompliance with medications. Stats she just simply forget to take meds. Is caring for with Alzheimer's at home, which is stressful. Miss HD this past Monday due to abdominal and back pain. PAST MEDICAL HISTORY Past Medical History Cardiovascular: CAD, CHF, HTN, Hyperlipidemia, Pulmonary hypertension, Other ( PVD s/p [employer]/stent to left common iliac artery) Pulmonary: Asthma, COPD, PNA, PENNY CENTRAL NERVOUS SYSTEM: Other (no pertinent hx) GI: GERD Heme/Onc: Anemia NOS, Other (DVT) Renal/: Chronic renal failure on HD Endocrine: Diabetes Dermatology: No pertinent hx PAST SURGICAL HISTORY Past Surgical History Appendectomy, Other (left rotator cuff sx) FAMILY HISTORY Family History Coronary Artery Disease, Diabetes, Hypertension SOCIAL HISTORY Social History Smoke: No ALCOHOL: none Drugs: None Lives: with Family CURRENT MEDICATIONS CURRENT MEDICATIONS Current Medications Medications (Trade) Dose Ordered Sig/Eric Route PRN Reason Start Time Stop Time Status Last Admin Dose Admin Albuterol/ Ipratropium (Duoneb) 3 ml 1X ONCE NEB 06/16/16 14:00 06/16/16 14:01 DC 06/16/16 14:47 Prednisone (Prednisone) 60 mg 1X ONCE PO 06/16/16 14:00 06/16/16 14:01 DC 06/16/16 14:52 Morphine Sulfate 4 mg 1X ONCE IV 06/16/16 14:00 06/16/16 14:01 DC 06/16/16 14:51 Hydralazine HCl (Apresoline) 10 mg 1X ONCE IVP 06/16/16 14:00 06/16/16 14:01 DC 06/16/16 14:52 Metoprolol Tartrate (Lopressor) 50 mg TID PO 06/16/16 21:00 06/16/16 21:10 Insulin Detemir (Levemir) 20 units QHS SQ 06/16/16 21:00 06/16/16 22:31 Oxybutynin Chloride (Ditropan) 5 mg [id number] PO 06/16/16 21:00 06/16/16 21:09 Insulin Aspart (Novolog) 0-9 UNITS TIDWMEALS SQ 06/17/16 08:00 06/17/16 09:41 Albuterol/ Ipratropium (Duoneb) 3 ml QID NEB 06/16/16 21:00 06/17/16 07:39 Heparin Sodium (Porcine) 5,000 unit Q8HRS SQ 06/16/16 22:00 06/17/16 05:50 Diphenhydramine HCl (Benadryl) 25 mg PRN Q6HRS PRN PO ITCHING 06/16/16 20:15 06/16/16 21:10 Alprazolam (Xanax) 0.5 mg 1X ONCE PO 06/17/16 10:00 06/17/16 10:01 DC 06/17/16 09:59 ALLERGIES ALLERGIES: Coded Allergies: Iodinated Contrast Media - Oral and (Verified Allergy, Intermediate, ) ROS Review of System 14 point ROS conducted with pertinent positive noted above in HPI PHYSICAL EXAM PHYSICAL EXAM General: Alert, Oriented X3, Cooperative, No acute distress HEENT: Atraumatic, Mucous membr. moist/pink Lungs: Other (bibasilar crackles) Heart: Regular rate, Normal S1, Normal S2, Other (2/6 systolic murmur ) Abdomen: Soft Extremities: Other (1+ LLE edema, trace RLE edema, 1+ bilateral DP pulses ) Skin: No breakdown, No significant lesion Neuro: Normal speech, Sensation intact Psych/Mental Status: Mental status NL, Mood NL MUSCULOSKELETAL: Osteoarthritic changes both hands VITALS VITALS Vital Signs Date Time Temp Pulse Resp B/P Pulse Ox O2 Delivery O2 Flow Rate FiO2 06/17/16 07:40 100 Nasal Cannula 3.0 06/17/16 07:00 97.8 77 18 160/6 97.8 LABS Lab: Laboratory Tests Test 06/16/16 14:50 06/17/16 05:00 06/17/16 07:30 06/17/16 09:55 White Blood Count 6.7x10^3/uL (4.0-11.0) Red Blood Count 2.91x10^6/uL (3.50-5.40) Hemoglobin 9.1g/dL (12.0-15.5) Hematocrit 29.6% (36.0-47.0) Mean Corpuscular Volume 102fL (79-100) Mean Corpuscular Hemoglobin 31pg (25-35) Mean Corpuscular Hemoglobin Concent 31g/dL (31-37) Red Cell Distribution Width 17.2% (11.5-14.5) Platelet Count 277x10^3/uL (140-400) Neutrophils (%) (Auto) 84% (31-73) Lymphocytes (%) (Auto) 7% (24-48) Monocytes (%) (Auto) 9% (0-9) Eosinophils (%) (Auto) 0% (0-3) Basophils (%) (Auto) 1% (0-3) Neutrophils # (Auto) 5.6x10^3uL (1.8-7.7) Lymphocytes # (Auto) 0.4x10^3/uL (1.0-4.8) Monocytes # (Auto) 0.6x10^3/uL (0.0-1.1) Eosinophils # (Auto) 0.0x10^3/uL (0.0-0.7) Basophils # (Auto) 0.0x10^3/uL (0.0-0.2) Sodium Level 149mmol/L (136-145) 144mmol/L (136-145) Potassium Level 4.1mmol/L (3.5-5.1) 5.7mmol/L (3.5-5.1) Chloride Level 110mmol/L (98-107) 110mmol/L (98-107) Carbon Dioxide Level 28mmol/L (21-32) 23mmol/L (21-32) Anion Gap 11 (6-14) 11 (6-14) Blood Urea Nitrogen 32mg/dL (7-20) 37mg/dL (7-20) Creatinine 5.2mg/dL (0.6-1.0) 5.5mg/dL (0.6-1.0) Estimated GFR (Cockcroft-Gault) 9.8 9.2 BUN/Creatinine Ratio 6 (6-20) Glucose Level 180mg/dL (70-99) 252mg/dL (70-99) Calcium Level 8.4mg/dL (8.5-10.1) 8.3mg/dL (8.5-10.1) Total Bilirubin 0.4mg/dL (0.2-1.0) Aspartate Amino Transf (AST/SGOT) 16U/L (15-37) Alanine Aminotransferase (ALT/SGPT) 22U/L (14-59) Alkaline Phosphatase 115U/L (46-116) Troponin I Quantitative 0.053ng/mL (0.000-0.055) Total Protein 6.1g/dL (6.4-8.2) Albumin 2.3g/dL (3.4-5.0) Albumin/Globulin Ratio 0.6 (1.0-1.7) Lipase 129U/L (73-393) Glucose (Fingerstick) 186mg/dL (70-99) 204mg/dL (70-99) ECHOCARDIOGRAM ECHOCARDIOGRAM <Conclusion> The left ventricular systolic function is normal. The Ejection Fraction is 55%. There is normal LV segmental wall motion. Transmitral Doppler flow pattern is Grade I-abnormal relaxation pattern. The left atrium is moderately dilated. Mild to moderate mitral regurgitation. Moderate tricuspid regurgitation. The pulmonary artery systolic pressure is estimated at 87 mmHg. There is severe pulmonary hypertension. There is no evidence of significant pericardial effusion. DATE: 05/17/16 1622 STRESS TEST STRESS TEST Conclusion 1. No EKG evidence of stress induced ischemic changes. 2. Small reversible inferior wall defect as noted above. 3. Low normal EF with stress. EF 58% 4. Low to moderate risk study. DATE: 06/02/15 1152 HEART CATH HEART CATH Conclusion 1. Severe single-vessel coronary artery disease. 80% stenosis involving the mid segment of the right coronary artery. The previously placed stent in the distal segment of the right coronary artery was widely patent. 2. Successful PCI/drug eluting stent placement to the right coronary artery. Recommendations 1. Aspirin 325 mg daily 2. Plavix 75 mg daily for preferably one year 3. Cardiovascular risk factor modification DATE: 01/24/14 1035 ASSESSMENT/PLAN ASSESSMENT/PLAN 1. Acute on chronic diastolic heart failure, decompensated CXR with bilateral pleural effusion likely induced by malignant hypertension 2/2 medication non-compliance Recent echo with LVEF 55% fluid offloading in HD per nephrology- to have extra run in am 2. Dyspnea underlying COPD and pul HTN due to bilateral pleural effusion 2/2 a/c diastolic HF 3. CAD s/p PCI/MALLORIE to RCA no anginal symptoms MPI 05/26 with no evidence of ischemia continue secondary prevention 4. PVD s/p [employer]/stent placement to left common iliac artery. stable. no claudication symptoms 5. Malignant hypertension secondary to medication non-compliance. Home medications resumed. IV hydralazine PRN 6. Hyperlipidemia LDL 86 01/2016 statin therapy 7. Chronic renal failure on HD per nephrology 8. PENNY non-compliant with CPAP 9. DM uncontrolled per PCP 10. 4.9 cm infrarenal aortic aneurysm unchanged from previous study outpatient f/u Problems: FRANK REED MD 06/17/16 1620: CARDIAC CONSULT ALLERGIES ALLERGIES: Coded Allergies: Iodinated Contrast Media - Oral and (Verified Allergy, Intermediate, ) ASSESSMENT/PLAN ASSESSMENT/PLAN Patient seen and examined. Agree with [employer]'s assessment and plan. Acute respiratory failure secondary to combination of acute COPD exacerbation and acute on chronic diastolic heart failure. Continue fluid removal with hemodialysis per nephrology team. Coronary artery disease status stable. Resume home medications for accelerated hypertension and titrate for better control. Thank you for the consultation Problems: DARSHANA PEPE APRN Jun 17, 2016 10:35 FRANK REED MD Jun 17, 2016 16:20
[2016-06-17 10:37] VITALS: BP 171/72
--- NOTE | 2016-06-17 11:03 | PDOC ---
Provider Note Provider Note dictated SHEILA ZHENG MD Jun 17, 2016 11:03
--- NOTE | 2016-06-17 11:42 | CONS ---
DATE OF CONSULTATION: ATTENDING PHYSICIAN: Dr. Cavazos. REASON FOR CONSULTATION: Dyspnea, abnormal chest x-ray. HISTORY OF PRESENT ILLNESS: The patient is a 70-year-old who was seen by me previously. She has a history of end-stage renal disease and history of coronary artery disease. She has obstructive sleep apnea for which she was noncompliant, as a result CPAP was taken away. She also was noted to have a PA pressure of 87, which was a change from a previous echo of January 2016. At that time, PA pressure was 41. We did a V/Q scan, which was of low probability. The patient was brought into the hospital for increased shortness of breath. She has increased leg edema. Her chest x-ray showed new pleural effusion and slightly prominent vascular markings. She has no cough, no fever, no chills, no chest pains. She remains on 4 liters of oxygen on a chronic basis. PAST MEDICAL HISTORY: History of diastolic congestive heart failure; history of pulmonary hypertension, recently worse on previous echo, may not be an accurate PA pressure tracing. History of tobacco use for 40 years, history of underlying COPD, history of chronic respiratory failure on 4 liters, history of diabetes, peripheral artery disease and hyperlipidemia. PAST SURGICAL HISTORY: No recent surgery. ALLERGIES: IODINE CONTRAST. MEDICATIONS: Reviewed as listed in the MRAD. REVIEW OF SYSTEMS: Twelve-point system was obtained. Pertinent positives discussed in my history of present illness, otherwise noncontributory. All systems that were negative were reviewed as well. PHYSICAL EXAMINATION: GENERAL: She is awake, following commands. VITAL SIGNS: Blood pressure ____, afebrile, pulse ox 100% on 4 liters. HEENT: Sclerae nonicteric. NECK: Supple. LUNGS: Diminished breath sounds. CARDIOVASCULAR: Regular rate and rhythm. ABDOMEN: Soft, obese. EXTREMITIES: With bilateral pitting edema. LABORATORY DATA: Reviewed. White cell count 6.7, hemoglobin ____, platelets are 277. BUN is 37 and creatinine 5.5. IMPRESSION: 1. Dyspnea secondary to development of basilar pleural effusion with mild vascular prominence and acute on chronic diastolic heart failure. 2. Underlying chronic obstructive pulmonary disease, clinically compensated. 3. No evidence of pneumonia. 4. History of pulmonary hypertension. When 2 echos were compared from January of last year to May of this year, the PA pressure doubled from 41-87. The V/Q scan performed at that time was without any evidence of pulmonary embolism. I suspect that the PA pressures on the recent echo may not be accurate and echo has to be repeated at some point. 5. Underlying obstructive sleep apnea, noncompliant to CPAP, but willing to try CPAP in future and will arrange sleep study as an outpatient. 6. End-stage renal disease on hemodialysis. 7. Hypertension under marginal control. RECOMMENDATIONS: 1. Optimization of blood pressure. 2. Continue dialysis with increased ultrafiltration. 3. Continue with home oxygen at 4 liters. 4. We will consider repeating an echo as an outpatient to assess the severity of pulmonary hypertension. 5. She has previously ruled out for PE by V/Q scan. 6. Bronchodilators. 7. Sleep study will be rescheduled as an outpatient as she is willing to try CPAP. SHEILA ZHENG MD DR: AJITH/courtney JOB#: [id number] / [id number] SAUL
[2016-06-17 12:16] LABS: BASO % 1 % (0-3); EOS % 0 % (0-3); HEMOGLOBIN 9.5 g/dL (12.0-15.5); LYMPH # 0.6 x10^3/uL (1.0-4.8); LYMPH % 11 % (24-48); MEAN CORPUSCULAR HEMOGLOBIN 32 pg (25-35); MEAN CORPUSCULAR HGB CONC 32 g/dL (31-37); MEAN CORPUSCULAR VOLUME 101 fL (79-100); MONO % 12 % (0-9); NEUT % 77 % (31-73); PLATELET COUNT 296 x10^3/uL (140-400); RED BLOOD COUNT 2.98 x10^6/uL (3.50-5.40); RED CELL DISTRIBUTION WIDTH 17.6 % (11.5-14.5); WHITE BLOOD COUNT 5.9 x10^3/uL (4.0-11.0)
[2016-06-17] MEDS ORDERED: IV NORMAL SALINE 1000ML BAG 1,000 ML IV PRN ×2 (12:29)
[2016-06-17] MEDS ORDERED: DIALYSIS PATIENT. MC PRN ×2 (12:30)
[2016-06-17] MEDS: HYDROCODONE/APAP 5/325MG TABLET. PO PRN ×3 (13:28→23:58)
[2016-06-17 17:00] VITALS: BP 164/69
[2016-06-17] MEDS ORDERED: CALCIUM CARBONATE 500 MG TAB.CHEW PO PRN (18:00)
[2016-06-17] MEDS ORDERED: MAG HYDROX/ALUMINUM HYD/SIMETH 30 ML ORAL.SUSP PO PRN (18:00)
[2016-06-17 19:00] VITALS: BP 154/68
[2016-06-17] MEDS ORDERED: FAMOTIDINE 20 MG TABLET. PO SCH (21:00)
[2016-06-17] MEDS: INSULIN DETEMIR 300 UNITS/3 ML INSULN.PEN. SQ SCH (21:46)
--- NOTE | 2016-06-17 22:40 | CONS ---
DATE OF CONSULTATION: PRIMARY PHYSICIAN: Dr. Cavazos. REASON FOR CONSULTATION: ESRD dialysis, hyperkalemia. HISTORY OF PRESENT ILLNESS: The patient is a 70-year-old female who has had abdominal pain, discomfort, some nausea, vomiting for the last 3-4 days. She missed dialysis on Monday, was scheduled for yesterday, again had abdominal pain and did not go yesterday and she presented to the ER. In the ER, she was noted to be visibly short of breath. Her chest x-ray was read as small bilateral pleural effusions with some atelectasis. She is also felt to have total body fluid overload on abdominal CT. In this setting, we were consulted for her dialysis. She initially was found to have low saturations on 4 liters nasal cannula oxygen, but her saturations improved rather quickly to 99% and is 100% this morning. In this setting, she has been scheduled for dialysis later today. For rest of the details, see electronic records. WENDI SUAREZ MD DR: MARNI/courtney JOB#: [id number] / [id number]
[2016-06-17 23:00] VITALS: BP 145/70
--- NOTE | 2016-06-18 02:24 | CONS ---
DATE OF CONSULTATION: 06/17/2016 REASON FOR CONSULTATION: Abdominal aortic aneurysm. HISTORY OF PRESENT ILLNESS: This is a 70-year-old black female admitted with an exacerbation of her chronic lung disease. She also had complained of some abdominal pain and got a CT of her abdomen, which showed an intact 4.9 cm abdominal aortic aneurysm. She knew she had this before. No prior history of any other peripheral interventions. PAST MEDICAL HISTORY: ALLERGIES: SHE IS ALLERGIC TO IODINE. MEDICATIONS: See her reconciliation list. REVIEW OF SYSTEMS: Positive for chronic diabetes, coronary artery disease, heart failure, hypertension. PAST SURGICAL HISTORY: Remote appendectomy and some knee surgery. Negative for stroke and negative for claudication. PHYSICAL EXAMINATION: GENERAL: Pleasant, overweight female, but in no acute distress. NECK: 2+ carotids, 2+ radial pulses. CARDIOVASCULAR: Heart rate is regular. RESPIRATORY: Nonlabored respirations. She is on oxygen. ABDOMEN: Soft, nontender. No distention. EXTREMITIES: She has strong popliteal pulses. NEUROLOGIC: She is neurologically intact. IMPRESSION: A 4.9 cm infrarenal abdominal aortic aneurysm, asymptomatic. PLAN: I discussed the nature of aneurysmal disease with the patient. I discussed ____ rupture, leakage and if that she should develop lower abdominal pain, back pain or ____ that she needs to go to the Emergency Room if that ever happens, unlikely with the size of this aneurysm now. Recommended a followup ultrasound and an appointment with me in our vascular lab in 6 months and we will make those arrangements. Thanks for allowing us to see her. ROSALIA العراقي MD DR: MIMA/courtney JOB#: [id number] / [id number]
[2016-06-18 03:00] VITALS: BP 136/66
[2016-06-18] MEDS: HEPARIN PF for SUB-Q USE 5,000 UNIT/0.5 ML VIAL. SQ SCH ×3 (06:14→21:24)
[2016-06-18 07:00] VITALS: BP 125/56
[2016-06-18 07:33] LABS: BASO % 1 % (0-3); EOS % 1 % (0-3); HEMATOCRIT 28.8 % (36.0-47.0); HEMOGLOBIN 9.1 g/dL (12.0-15.5); LYMPH # 1.1 x10^3/uL (1.0-4.8); LYMPH % 17 % (24-48); MEAN CORPUSCULAR HEMOGLOBIN 32 pg (25-35); MEAN CORPUSCULAR HGB CONC 32 g/dL (31-37); MEAN CORPUSCULAR VOLUME 101 fL (79-100); MONO % 16 % (0-9); NEUT % 65 % (31-73); PLATELET COUNT 276 x10^3/uL (140-400); RED BLOOD COUNT 2.84 x10^6/uL (3.50-5.40); RED CELL DISTRIBUTION WIDTH 17.4 % (11.5-14.5); WHITE BLOOD COUNT 6.3 x10^3/uL (4.0-11.0)
[2016-06-18 07:48] LABS: CALCIUM 8.1 mg/dL (8.5-10.1); CREATININE 4.2 mg/dL (0.6-1.0); GFR 12.6; POTASSIUM 3.5 mmol/L (3.5-5.1)
[2016-06-18] MEDS: INSULIN ASPART 300 UNITS/3 ML INSULN.PEN SQ SCH ×3 (08:00→16:43)
[2016-06-18] MEDS ORDERED: IV NORMAL SALINE 1000ML BAG 1,000 ML IV PRN ×2 (08:18)
[2016-06-18] MEDS ORDERED: DIPHENHYDRAMINE 50 MG/ML VIAL IV PRN ×2 (08:30)
[2016-06-18] MEDS ORDERED: ACETAMINOPHEN 500 MG TABLET PO PRN (08:30)
[2016-06-18] MEDS ORDERED: DIALYSIS PATIENT. MC PRN (08:30)
[2016-06-18] MEDS: OXYBUTYNIN CHLORIDE 5 MG TABLET PO SCH ×3 (09:00→20:51)
[2016-06-18] MEDS: METOPROLOL TART IMMED RELEASE 50 MG TABLET PO SCH ×3 (09:00→20:51)
[2016-06-18] MEDS: IPRATRPIUM/ALBUTEROL 0.5/2.5MG 3 ML NEBU. NEB SCH ×4 (09:13→21:11)
--- NOTE | 2016-06-18 12:45 | PDOC ---
PULMONARY PROGRESS NOTES Subjective no mary Vitals Vital Signs Date Time Temp Pulse Resp B/P Pulse Ox O2 Delivery O2 Flow Rate FiO2 06/18/16 12:11 Nasal Cannula 4.0 06/18/16 07:00 98.2 58 125/56 97 98.2 06/18/16 03:00 18 General: Alert, Oriented X4, No acute distress Lungs: Clear Cardiovascular: S1, S2 Abdomen: Soft, Non-tender, Other Extremities: Other (trace edema) Labs Laboratory Tests Test 06/16/16 14:50 06/16/16 22:14 06/17/16 02:00 06/17/16 05:00 White Blood Count 6.7x10^3/uL (4.0-11.0) Red Blood Count 2.91x10^6/uL (3.50-5.40) Hemoglobin 9.1g/dL (12.0-15.5) Hematocrit 29.6% (36.0-47.0) Mean Corpuscular Volume 102fL (79-100) Mean Corpuscular Hemoglobin 31pg (25-35) Mean Corpuscular Hemoglobin Concent 31g/dL (31-37) Red Cell Distribution Width 17.2% (11.5-14.5) Platelet Count 277x10^3/uL (140-400) Neutrophils (%) (Auto) 84% (31-73) Lymphocytes (%) (Auto) 7% (24-48) Monocytes (%) (Auto) 9% (0-9) Eosinophils (%) (Auto) 0% (0-3) Basophils (%) (Auto) 1% (0-3) Neutrophils # (Auto) 5.6x10^3uL (1.8-7.7) Lymphocytes # (Auto) 0.4x10^3/uL (1.0-4.8) Monocytes # (Auto) 0.6x10^3/uL (0.0-1.1) Eosinophils # (Auto) 0.0x10^3/uL (0.0-0.7) Basophils # (Auto) 0.0x10^3/uL (0.0-0.2) Sodium Level 149mmol/L (136-145) 144mmol/L (136-145) Potassium Level 4.1mmol/L (3.5-5.1) 5.7mmol/L (3.5-5.1) Chloride Level 110mmol/L (98-107) 110mmol/L (98-107) Carbon Dioxide Level 28mmol/L (21-32) 23mmol/L (21-32) Anion Gap 11 (6-14) 11 (6-14) Blood Urea Nitrogen 32mg/dL (7-20) 37mg/dL (7-20) Creatinine 5.2mg/dL (0.6-1.0) 5.5mg/dL (0.6-1.0) Estimated GFR (Cockcroft-Gault) 9.8 9.2 BUN/Creatinine Ratio 6 (6-20) Glucose Level 180mg/dL (70-99) 252mg/dL (70-99) Calcium Level 8.4mg/dL (8.5-10.1) 8.3mg/dL (8.5-10.1) Total Bilirubin 0.4mg/dL (0.2-1.0) Aspartate Amino Transf (AST/SGOT) 16U/L (15-37) Alanine Aminotransferase (ALT/SGPT) 22U/L (14-59) Alkaline Phosphatase 115U/L (46-116) Troponin I Quantitative 0.053ng/mL (0.000-0.055) Total Protein 6.1g/dL (6.4-8.2) Albumin 2.3g/dL (3.4-5.0) Albumin/Globulin Ratio 0.6 (1.0-1.7) Lipase 129U/L (73-393) Glucose (Fingerstick) 282mg/dL (70-99) Clostridium difficile Toxin (PCR) Negative (Negative) Test 06/17/16 07:30 06/17/16 09:55 06/17/16 11:55 06/17/16 17:37 Glucose (Fingerstick) 186mg/dL (70-99) 204mg/dL (70-99) 147mg/dL (70-99) White Blood Count 5.9x10^3/uL (4.0-11.0) Red Blood Count 2.98x10^6/uL (3.50-5.40) Hemoglobin 9.5g/dL (12.0-15.5) Hematocrit 30.0% (36.0-47.0) Mean Corpuscular Volume 101fL (79-100) Mean Corpuscular Hemoglobin 32pg (25-35) Mean Corpuscular Hemoglobin Concent 32g/dL (31-37) Red Cell Distribution Width 17.6% (11.5-14.5) Platelet Count 296x10^3/uL (140-400) Neutrophils (%) (Auto) 77% (31-73) Lymphocytes (%) (Auto) 11% (24-48) Monocytes (%) (Auto) 12% (0-9) Eosinophils (%) (Auto) 0% (0-3) Basophils (%) (Auto) 1% (0-3) Neutrophils # (Auto) 4.5x10^3uL (1.8-7.7) Lymphocytes # (Auto) 0.6x10^3/uL (1.0-4.8) Monocytes # (Auto) 0.7x10^3/uL (0.0-1.1) Eosinophils # (Auto) 0.0x10^3/uL (0.0-0.7) Basophils # (Auto) 0.0x10^3/uL (0.0-0.2) Test 06/17/16 20:46 06/18/16 06:55 06/18/16 08:06 Glucose (Fingerstick) 139mg/dL (70-99) 99mg/dL (70-99) White Blood Count 6.3x10^3/uL (4.0-11.0) Red Blood Count 2.84x10^6/uL (3.50-5.40) Hemoglobin 9.1g/dL (12.0-15.5) Hematocrit 28.8% (36.0-47.0) Mean Corpuscular Volume 101fL (79-100) Mean Corpuscular Hemoglobin 32pg (25-35) Mean Corpuscular Hemoglobin Concent 32g/dL (31-37) Red Cell Distribution Width 17.4% (11.5-14.5) Platelet Count 276x10^3/uL (140-400) Neutrophils (%) (Auto) 65% (31-73) Lymphocytes (%) (Auto) 17% (24-48) Monocytes (%) (Auto) 16% (0-9) Eosinophils (%) (Auto) 1% (0-3) Basophils (%) (Auto) 1% (0-3) Neutrophils # (Auto) 4.1x10^3uL (1.8-7.7) Lymphocytes # (Auto) 1.1x10^3/uL (1.0-4.8) Monocytes # (Auto) 1.0x10^3/uL (0.0-1.1) Eosinophils # (Auto) 0.1x10^3/uL (0.0-0.7) Basophils # (Auto) 0.0x10^3/uL (0.0-0.2) Sodium Level 141mmol/L (136-145) Potassium Level 3.5mmol/L (3.5-5.1) Chloride Level 106mmol/L (98-107) Carbon Dioxide Level 35mmol/L (21-32) Anion Gap 0 (6-14) Blood Urea Nitrogen 21mg/dL (7-20) Creatinine 4.2mg/dL (0.6-1.0) Estimated GFR (Cockcroft-Gault) 12.6 Glucose Level 40mg/dL (70-99) Calcium Level 8.1mg/dL (8.5-10.1) Laboratory Tests Test 06/17/16 17:37 06/17/16 20:46 06/18/16 06:55 06/18/16 08:06 Glucose (Fingerstick) 147mg/dL (70-99) 139mg/dL (70-99) 99mg/dL (70-99) White Blood Count 6.3x10^3/uL (4.0-11.0) Red Blood Count 2.84x10^6/uL (3.50-5.40) Hemoglobin 9.1g/dL (12.0-15.5) Hematocrit 28.8% (36.0-47.0) Mean Corpuscular Volume 101fL (79-100) Mean Corpuscular Hemoglobin 32pg (25-35) Mean Corpuscular Hemoglobin Concent 32g/dL (31-37) Red Cell Distribution Width 17.4% (11.5-14.5) Platelet Count 276x10^3/uL (140-400) Neutrophils (%) (Auto) 65% (31-73) Lymphocytes (%) (Auto) 17% (24-48) Monocytes (%) (Auto) 16% (0-9) Eosinophils (%) (Auto) 1% (0-3) Basophils (%) (Auto) 1% (0-3) Neutrophils # (Auto) 4.1x10^3uL (1.8-7.7) Lymphocytes # (Auto) 1.1x10^3/uL (1.0-4.8) Monocytes # (Auto) 1.0x10^3/uL (0.0-1.1) Eosinophils # (Auto) 0.1x10^3/uL (0.0-0.7) Basophils # (Auto) 0.0x10^3/uL (0.0-0.2) Sodium Level 141mmol/L (136-145) Potassium Level 3.5mmol/L (3.5-5.1) Chloride Level 106mmol/L (98-107) Carbon Dioxide Level 35mmol/L (21-32) Anion Gap 0 (6-14) Blood Urea Nitrogen 21mg/dL (7-20) Creatinine 4.2mg/dL (0.6-1.0) Estimated GFR (Cockcroft-Gault) 12.6 Glucose Level 40mg/dL (70-99) Calcium Level 8.1mg/dL (8.5-10.1) Medications Active Scripts Medications Dose Route/Sig Days Date Category Lantus Solostar (Insulin Glargine,Hum.rec.anlog) 100 Unit/1 Ml Insuln.pen 30 Unit SQ QHS 09/03/15 Reported Marina-Jayme Tablet (Folic Acid/Vitamin B Comp W-C) 0.8 Mg Tablet 0.8 Mg PO 09/03/15 Reported Metolazone 2.5 Mg Tablet 2.5 Mg PO DAILY 09/03/15 Reported Metoprolol Tartrate 50 Mg Tablet 1 Tab PO TID 09/03/15 Reported Atorvastatin Calcium 20 Mg Tablet 30 Mg PO DAILY 09/03/15 Reported Lisinopril 20 Mg Tablet 20 Tab PO DAILY 06/15/15 Rx Klor-Con M20 (Potassium Chloride) 20 Meq Tab.er.prt 20 Meq PO [id number] 03/29/15 Rx [Albuterol Sulfate] 2.5 MG/3 ML Nebu 2.5 Mg NEB PRN Q4HRS PRN 12/26/14 Rx Tradjenta (Linagliptin) 5 Mg Tablet 5 Mg PO DAILY 12/17/14 Rx Aspirin 325 Mg Tablet 1 Tab PO DAILY 01/25/14 Reported Tolterodine Tartrate 2 Mg Tablet 4 Mg PO DAILY 01/24/14 Reported Plavix (Clopidogrel Bisulfate) 75 Mg Tablet 75 Mg PO DAILY 01/10/14 Reported Impression . 1. Dyspnea secondary to development of basilar pleural effusion with mild vascular prominence and acute on chronic diastolic heart failure. 2. Underlying chronic obstructive pulmonary disease, clinically compensated. 3. No evidence of pneumonia. 4. History of pulmonary hypertension. When 2 echos were compared from January of last year to May of this year, the PA pressure doubled from 41-87. The V/Q scan performed at that time was without any evidence of pulmonary embolism. I suspect that the PA pressures on the recent echo may not be accurate and echo has to be repeated at some point. 5. Underlying obstructive sleep apnea, noncompliant to CPAP, but willing to try CPAP in future and will arrange sleep study as an outpatient. 6. End-stage renal disease on hemodialysis. 7. Hypertension under marginal control. Plan . 1. Optimization of blood pressure. 2. Continue dialysis with increased ultrafiltration. 3. Continue with home oxygen at 4 liters. 4. We will consider repeating an echo as an outpatient to assess the severity of pulmonary hypertension. 5. She has previously ruled out for PE by V/Q scan. 6. Bronchodilators. 7. Sleep study will be rescheduled as an outpatient as she is willing to try CPAP. 8. repeat cxr post HD SHEILA ZHENG MD Jun 18, 2016 12:44
[2016-06-18] MEDS: FOLIC/VIT B COMP W-C (RENAL) TABLET. PO SCH (13:35)
[2016-06-18] MEDS: ASPIRIN 325 MG TABLET PO SCH (13:35)
[2016-06-18] MEDS: LINAGLIPTIN 5 MG TABLET PO SCH (13:35)
[2016-06-18] MEDS: CLOPIDOGREL BISULFATE 75 MG TABLET PO SCH (13:35)
[2016-06-18] MEDS: METOLAZONE 2.5 MG TABLET PO SCH (13:35)
[2016-06-18] MEDS: LISINOPRIL 20 MG TABLET PO SCH (13:37)
[2016-06-18] MEDS: POTASSIUM CHLORIDE 20 MEQ TABLET.ER. PO SCH (13:39)
[2016-06-18] MEDS: ATORVASTATIN CALCIUM 10 MG TABLET. PO SCH (13:41)
--- NOTE | 2016-06-18 14:33 | PDOC ---
PROGRESS NOTES Chief Complaint Chief Complaint 1. Lksiw-pr-[id number] DIAstolic congestive heart failure. 2. ESRD on HD MWF 3. Gnjku-dp-jlmkhbb respiratory failure. Hypoxia 4. abd pain 2/[address], ischemic? 5. Diabetes mellitus 6. Hypertension urgency 7. Peripheral artery disease. 8. Hyperlipidemia. 9. Asthma 10. COPD 11. Diverticulosis 12. chronic anemia 2/2 CHF, ESRD 13. Anxiety 14. abd aneurysm, vascular consulted, no sx plan:fu with specialists on diuretics HD advance to full liquid given no diarrhea, abd pain better decrease levemir to 15u qhs dc tmr History of Present Illness History of Present Illness SOa better Requests for anxiety pill today prior to HD Her schedule is MWF LAbs reviewed, BS ok CAme in for SOA and abd pain Tolerating PO, no emesis PLAN: HD today Xanax now then prn HOme weekend of no acute issues Vitals Vitals Vital Signs Date Time Temp Pulse Resp B/P Pulse Ox O2 Delivery O2 Flow Rate FiO2 06/18/16 13:38 60 104/52 06/18/16 12:11 Nasal Cannula 4.0 06/18/16 07:00 98.2 97 98.2 06/18/16 03:00 18 Physical Exam General: Alert, Oriented X3, Cooperative Heart: Regular rate, Normal S1 Lungs: Clear Abdomen: Normal bowel sounds, Soft Extremities: No clubbing Labs LABS Laboratory Tests Test 06/17/16 17:37 06/17/16 20:46 06/18/16 06:55 06/18/16 08:06 Glucose (Fingerstick) 147mg/dL (70-99) 139mg/dL (70-99) 99mg/dL (70-99) White Blood Count 6.3x10^3/uL (4.0-11.0) Red Blood Count 2.84x10^6/uL (3.50-5.40) Hemoglobin 9.1g/dL (12.0-15.5) Hematocrit 28.8% (36.0-47.0) Mean Corpuscular Volume 101fL (79-100) Mean Corpuscular Hemoglobin 32pg (25-35) Mean Corpuscular Hemoglobin Concent 32g/dL (31-37) Red Cell Distribution Width 17.4% (11.5-14.5) Platelet Count 276x10^3/uL (140-400) Neutrophils (%) (Auto) 65% (31-73) Lymphocytes (%) (Auto) 17% (24-48) Monocytes (%) (Auto) 16% (0-9) Eosinophils (%) (Auto) 1% (0-3) Basophils (%) (Auto) 1% (0-3) Neutrophils # (Auto) 4.1x10^3uL (1.8-7.7) Lymphocytes # (Auto) 1.1x10^3/uL (1.0-4.8) Monocytes # (Auto) 1.0x10^3/uL (0.0-1.1) Eosinophils # (Auto) 0.1x10^3/uL (0.0-0.7) Basophils # (Auto) 0.0x10^3/uL (0.0-0.2) Sodium Level 141mmol/L (136-145) Potassium Level 3.5mmol/L (3.5-5.1) Chloride Level 106mmol/L (98-107) Carbon Dioxide Level 35mmol/L (21-32) Anion Gap 0 (6-14) Blood Urea Nitrogen 21mg/dL (7-20) Creatinine 4.2mg/dL (0.6-1.0) Estimated GFR (Cockcroft-Gault) 12.6 Glucose Level 40mg/dL (70-99) Calcium Level 8.1mg/dL (8.5-10.1) Review of Systems Review of Systems no fever, chills, sob or chest pain Assessment and Plan Assessmemt and Plan Problems Medical Problems: (1) Abdominal pain Status: Acute (2) COPD (chronic obstructive pulmonary disease) Status: Acute (3) COPD exacerbation Status: Acute Problems: Comment Review of Relevant I have reviewed the following items mykel (where applicable) has been applied. Labs Laboratory Tests Test 06/16/16 14:50 06/16/16 22:14 06/17/16 02:00 06/17/16 05:00 White Blood Count 6.7x10^3/uL (4.0-11.0) Red Blood Count 2.91x10^6/uL (3.50-5.40) Hemoglobin 9.1g/dL (12.0-15.5) Hematocrit 29.6% (36.0-47.0) Mean Corpuscular Volume 102fL (79-100) Mean Corpuscular Hemoglobin 31pg (25-35) Mean Corpuscular Hemoglobin Concent 31g/dL (31-37) Red Cell Distribution Width 17.2% (11.5-14.5) Platelet Count 277x10^3/uL (140-400) Neutrophils (%) (Auto) 84% (31-73) Lymphocytes (%) (Auto) 7% (24-48) Monocytes (%) (Auto) 9% (0-9) Eosinophils (%) (Auto) 0% (0-3) Basophils (%) (Auto) 1% (0-3) Neutrophils # (Auto) 5.6x10^3uL (1.8-7.7) Lymphocytes # (Auto) 0.4x10^3/uL (1.0-4.8) Monocytes # (Auto) 0.6x10^3/uL (0.0-1.1) Eosinophils # (Auto) 0.0x10^3/uL (0.0-0.7) Basophils # (Auto) 0.0x10^3/uL (0.0-0.2) Sodium Level 149mmol/L (136-145) 144mmol/L (136-145) Potassium Level 4.1mmol/L (3.5-5.1) 5.7mmol/L (3.5-5.1) Chloride Level 110mmol/L (98-107) 110mmol/L (98-107) Carbon Dioxide Level 28mmol/L (21-32) 23mmol/L (21-32) Anion Gap 11 (6-14) 11 (6-14) Blood Urea Nitrogen 32mg/dL (7-20) 37mg/dL (7-20) Creatinine 5.2mg/dL (0.6-1.0) 5.5mg/dL (0.6-1.0) Estimated GFR (Cockcroft-Gault) 9.8 9.2 BUN/Creatinine Ratio 6 (6-20) Glucose Level 180mg/dL (70-99) 252mg/dL (70-99) Calcium Level 8.4mg/dL (8.5-10.1) 8.3mg/dL (8.5-10.1) Total Bilirubin 0.4mg/dL (0.2-1.0) Aspartate Amino Transf (AST/SGOT) 16U/L (15-37) Alanine Aminotransferase (ALT/SGPT) 22U/L (14-59) Alkaline Phosphatase 115U/L (46-116) Troponin I Quantitative 0.053ng/mL (0.000-0.055) Total Protein 6.1g/dL (6.4-8.2) Albumin 2.3g/dL (3.4-5.0) Albumin/Globulin Ratio 0.6 (1.0-1.7) Lipase 129U/L (73-393) Glucose (Fingerstick) 282mg/dL (70-99) Clostridium difficile Toxin (PCR) Negative (Negative) Test 06/17/16 07:30 06/17/16 09:55 06/17/16 11:55 06/17/16 17:37 Glucose (Fingerstick) 186mg/dL (70-99) 204mg/dL (70-99) 147mg/dL (70-99) White Blood Count 5.9x10^3/uL (4.0-11.0) Red Blood Count 2.98x10^6/uL (3.50-5.40) Hemoglobin 9.5g/dL (12.0-15.5) Hematocrit 30.0% (36.0-47.0) Mean Corpuscular Volume 101fL (79-100) Mean Corpuscular Hemoglobin 32pg (25-35) Mean Corpuscular Hemoglobin Concent 32g/dL (31-37) Red Cell Distribution Width 17.6% (11.5-14.5) Platelet Count 296x10^3/uL (140-400) Neutrophils (%) (Auto) 77% (31-73) Lymphocytes (%) (Auto) 11% (24-48) Monocytes (%) (Auto) 12% (0-9) Eosinophils (%) (Auto) 0% (0-3) Basophils (%) (Auto) 1% (0-3) Neutrophils # (Auto) 4.5x10^3uL (1.8-7.7) Lymphocytes # (Auto) 0.6x10^3/uL (1.0-4.8) Monocytes # (Auto) 0.7x10^3/uL (0.0-1.1) Eosinophils # (Auto) 0.0x10^3/uL (0.0-0.7) Basophils # (Auto) 0.0x10^3/uL (0.0-0.2) Test 06/17/16 20:46 06/18/16 06:55 06/18/16 08:06 Glucose (Fingerstick) 139mg/dL (70-99) 99mg/dL (70-99) White Blood Count 6.3x10^3/uL (4.0-11.0) Red Blood Count 2.84x10^6/uL (3.50-5.40) Hemoglobin 9.1g/dL (12.0-15.5) Hematocrit 28.8% (36.0-47.0) Mean Corpuscular Volume 101fL (79-100) Mean Corpuscular Hemoglobin 32pg (25-35) Mean Corpuscular Hemoglobin Concent 32g/dL (31-37) Red Cell Distribution Width 17.4% (11.5-14.5) Platelet Count 276x10^3/uL (140-400) Neutrophils (%) (Auto) 65% (31-73) Lymphocytes (%) (Auto) 17% (24-48) Monocytes (%) (Auto) 16% (0-9) Eosinophils (%) (Auto) 1% (0-3) Basophils (%) (Auto) 1% (0-3) Neutrophils # (Auto) 4.1x10^3uL (1.8-7.7) Lymphocytes # (Auto) 1.1x10^3/uL (1.0-4.8) Monocytes # (Auto) 1.0x10^3/uL (0.0-1.1) Eosinophils # (Auto) 0.1x10^3/uL (0.0-0.7) Basophils # (Auto) 0.0x10^3/uL (0.0-0.2) Sodium Level 141mmol/L (136-145) Potassium Level 3.5mmol/L (3.5-5.1) Chloride Level 106mmol/L (98-107) Carbon Dioxide Level 35mmol/L (21-32) Anion Gap 0 (6-14) Blood Urea Nitrogen 21mg/dL (7-20) Creatinine 4.2mg/dL (0.6-1.0) Estimated GFR (Cockcroft-Gault) 12.6 Glucose Level 40mg/dL (70-99) Calcium Level 8.1mg/dL (8.5-10.1) Laboratory Tests Test 06/17/16 17:37 06/17/16 20:46 06/18/16 06:55 06/18/16 08:06 Glucose (Fingerstick) 147mg/dL (70-99) 139mg/dL (70-99) 99mg/dL (70-99) White Blood Count 6.3x10^3/uL (4.0-11.0) Red Blood Count 2.84x10^6/uL (3.50-5.40) Hemoglobin 9.1g/dL (12.0-15.5) Hematocrit 28.8% (36.0-47.0) Mean Corpuscular Volume 101fL (79-100) Mean Corpuscular Hemoglobin 32pg (25-35) Mean Corpuscular Hemoglobin Concent 32g/dL (31-37) Red Cell Distribution Width 17.4% (11.5-14.5) Platelet Count 276x10^3/uL (140-400) Neutrophils (%) (Auto) 65% (31-73) Lymphocytes (%) (Auto) 17% (24-48) Monocytes (%) (Auto) 16% (0-9) Eosinophils (%) (Auto) 1% (0-3) Basophils (%) (Auto) 1% (0-3) Neutrophils # (Auto) 4.1x10^3uL (1.8-7.7) Lymphocytes # (Auto) 1.1x10^3/uL (1.0-4.8) Monocytes # (Auto) 1.0x10^3/uL (0.0-1.1) Eosinophils # (Auto) 0.1x10^3/uL (0.0-0.7) Basophils # (Auto) 0.0x10^3/uL (0.0-0.2) Sodium Level 141mmol/L (136-145) Potassium Level 3.5mmol/L (3.5-5.1) Chloride Level 106mmol/L (98-107) Carbon Dioxide Level 35mmol/L (21-32) Anion Gap 0 (6-14) Blood Urea Nitrogen 21mg/dL (7-20) Creatinine 4.2mg/dL (0.6-1.0) Estimated GFR (Cockcroft-Gault) 12.6 Glucose Level 40mg/dL (70-99) Calcium Level 8.1mg/dL (8.5-10.1) Medications Current Medications Albuterol/ Ipratropium (Duoneb) 3 ml 1X ONCE NEB Last administered on 14:47; Start 06/16/16 at 14:00; Stop 06/16/16 at 14:01; Status DC Prednisone (Prednisone) 60 mg 1X ONCE PO Last administered on 06/16/16 14:52; Start 06/16/16 at 14:00; Stop 06/16/16 at 14:01; Status DC Morphine Sulfate 4 mg 1X ONCE IV Last administered on 06/16/16 14:51; Start at 14:00; Stop 06/16/16 at 14:01; Status DC Hydralazine HCl (Apresoline) 10 mg 1X ONCE IVP Last administered on 06/16/16 14:52; Start 06/16/16 at 14:00; Stop 06/16/16 at 14:01; Status DC Ondansetron HCl (Zofran) 4 mg PRN Q8HRS PRN IV NAUSEA/VOMITING; Start 06/16/16 at 16:00; Stop 06/17/16 at 08:15; Status DC Morphine Sulfate 4 mg PRN Q2HR PRN IV PAIN; Start 06/16/16 at 16:00; Stop at 15:59; Status DC Acetaminophen (Tylenol) 650 mg PRN Q4HRS PRN PO FEVER; Start 06/16/16 at 16:00; Stop 06/17/16 at 15:59; Status DC Insulin Aspart (Novolog) 0-7 UNITS TIDWMEALS SQ ; Start 06/16/16 at 17:00; Stop 06/16/16 at 17:05; Status DC Dextrose 12.5 gm PRN Q15MIN PRN IV SEE COMMENTS Last administered on 06/18/16 07:56; Start 06/16/16 at 16:00 Aspirin (Hung Aspirin) 325 mg DAILY PO Last administered on 06/18/16 13:35; Start 06/17/16 at 09:00 Atorvastatin Calcium (Lipitor) 30 mg DAILY PO Last administered on 06/18/16 13 :41; Start 06/17/16 at 09:00 Clopidogrel Bisulfate (Plavix) 75 mg DAILY PO Last administered on 06/18/16 13 :35; Start 06/17/16 at 09:00 Vitamin B Complex/ Vitamin C (Nephro-Jayme) 1 tab DAILY PO Last administered on 06/18/16 13:35; Start 06/17/16 at 09:00 Guaifenesin/ Codeine Phosphate (Robitussin Ac) 5 ml PRN Q6HRS PRN PO COUGH; Start 06/16/16 at 17:00 Linagliptin (Tradjenta) 5 mg DAILY PO ; Start 06/17/16 at 09:00 Lisinopril (Prinivil) 20 mg DAILY PO Last administered on 06/18/16 13:37; Start 06/17/16 at 09:00 Metolazone (Zaroxolyn) 2.5 mg DAILY PO Last administered on 06/18/16 13:35; Start 06/17/16 at 09:00 Metoprolol Tartrate (Lopressor) 50 mg TID PO Last administered on 06/18/16 13: 38; Start 06/16/16 at 21:00 Potassium Chloride (Klor-Con) 20 meq DAILYWBKFT PO Last administered on 13:39; Start 06/17/16 at 08:00 Insulin Detemir (Levemir) 20 units QHS SQ Last administered on 06/17/16 21:46 ; Start 06/16/16 at 21:00; Stop 06/18/16 at 11:43; Status DC Oxybutynin Chloride (Ditropan) 5 mg [id number] PO Last administered on 06/18/16 13 :37; Start 06/16/16 at 21:00 Non-Formulary Medication 2.5 mg PRN Q4HRS PRN NEB SHORTNESS OF BREATH; Start at 17:00; Status UNV Insulin Aspart (Novolog) 0-9 UNITS TIDWMEALS SQ Last administered on 06/17/16 09:41; Start 06/17/16 at 08:00 Dextrose 12.5 gm PRN Q15MIN PRN IV SEE COMMENTS; Start 06/16/16 at 17:15; Status Cancel Albuterol/ Ipratropium (Duoneb) 3 ml QID NEB Last administered on 06/18/16 12: 11; Start 06/16/16 at 21:00 Hydralazine HCl (Apresoline) 10 mg PRN Q4HRS PRN IVP ELEVATED BP, SEE COMMENTS ; Start 06/16/16 at 17:15 Heparin Sodium (Porcine) 5,000 unit Q8HRS SQ Last administered on 06/18/16 13: 43; Start 06/16/16 at 22:00 Albuterol Sulfate (Ventolin Neb Soln) 2.5 mg PRN Q4HRS PRN NEB WHEEZING; Start 06/16/16 at 17:15 Diphenhydramine HCl (Benadryl) 25 mg PRN Q6HRS PRN PO ITCHING Last administered on 06/16/16 21:10; Start 06/16/16 at 20:15 Ondansetron HCl (Zofran) 4 mg PRN Q6HRS PRN IV NAUSEA/VOMITING; Start 06/17/16 at 08:14 Acetaminophen/ Hydrocodone Bitart (Lortab 5/325) 1 tab PRN Q4HRS PRN PO PAIN Last administered on 06/17/16 23:58; Start 06/17/16 at 08:15 Alprazolam (Xanax) 0.5 mg 1X ONCE PO Last administered on 06/17/16 09:59; Start 06/17/16 at 10:00; Stop 06/17/16 at 10:01; Status DC Alprazolam 0.25 mg 0.25 mg PRN Q8HRS PRN PO ANXIETY / AGITATION Last administered on 06/18/16 09:22; Start 06/17/16 at 10:15 Sodium Chloride 1,000 ml @ 1,000 mls/hr Q1H PRN IV hypotension; Start 06/17/16 at 12:29; Stop 06/17/16 at 18:28; Status DC Sodium Chloride (Iv Sodium Chloride 0.9% 1000ml Bag) 1,000 ml @ 400 mls/hr Q2H30M PRN IV PATENCY; Start 06/17/16 at 12:29; Stop 06/18/16 at 00:28; Status DC Info (PHARMACY MONITORING -- do not chart) 1 each PRN DAILY PRN MC SEE COMMENTS ; Start 06/17/16 at 12:30 Info (PHARMACY MONITORING -- do not chart) 1 each PRN DAILY PRN MC SEE COMMENTS ; Start 06/17/16 at 12:30; Status UNV Calcium Carbonate/ Glycine (Tums) 500 mg PRN AFTMEALHC PRN PO INDIGESTION Last administered on 06/17/16 18:06; Start 06/17/16 at 18:00 Al Hydroxide/Mg Hydroxide (Mylanta Plus Xs) 30 ml PRN Q2HR PRN PO HEARTBURN / GAS; Start 06/17/16 at 18:00 Famotidine 20 mg 20 mg Q48H PO Last administered on 06/17/16 20:06; Start 01/24 at 21:00 Sodium Chloride (Iv Sodium Chloride 0.9% 1000ml Bag) 1,000 ml @ 1,000 mls/hr Q1H PRN IV hypotension; Start 06/18/16 at 08:18; Stop 06/18/16 at 14:17; Status DC Acetaminophen (Tylenol) 500 mg 1X PRN PRN PO MILD PAIN / TEMP; Start 06/18/16 at 08:30; Stop 06/19/16 at 08:29 Diphenhydramine HCl (Benadryl) 25 mg 1X PRN PRN IV ITCHING; Start 06/18/16 at 08:30; Stop 06/19/16 at 08:29 Diphenhydramine HCl 25 mg 25 mg 1X PRN PRN IV ITCHING; Start 06/18/16 at 08:30 ; Stop 06/19/16 at 08:29 Sodium Chloride (Iv Sodium Chloride 0.9% 1000ml Bag) 1,000 ml @ 400 mls/hr Q2H30M PRN IV PATENCY; Start 06/18/16 at 08:18; Stop 06/18/16 at 20:17 Info (PHARMACY MONITORING -- do not chart) 1 each PRN DAILY PRN MC SEE COMMENTS ; Start 06/18/16 at 08:30; Status UNV Insulin Detemir (Levemir) 15 units QHS SQ ; Start 06/18/16 at 21:00 Active Scripts Active Lisinopril 20 Mg Tablet 20 Tab PO DAILY Klor-Con M20 (Potassium Chloride) 20 Meq Tab.er.prt 20 Meq PO DAILYWBKFT [Albuterol Sulfate] 2.5 MG/3 ML Nebu 2.5 Mg NEB PRN Q4HRS PRN Tradjenta (Linagliptin) 5 Mg Tablet 5 Mg PO DAILY Reported Lantus Solostar (Insulin Glargine,Hum.rec.anlog) 100 Unit/1 Ml Insuln.pen 30 Unit SQ QHS Marina-Jayme Tablet (Folic Acid/Vitamin B Comp W-C) 0.8 Mg Tablet 0.8 Mg PO Metolazone 2.5 Mg Tablet 2.5 Mg PO DAILY Metoprolol Tartrate 50 Mg Tablet 1 Tab PO TID Atorvastatin Calcium 20 Mg Tablet 30 Mg PO DAILY Aspirin 325 Mg Tablet 1 Tab PO DAILY Tolterodine Tartrate 2 Mg Tablet 4 Mg PO DAILY Plavix (Clopidogrel Bisulfate) 75 Mg Tablet 75 Mg PO DAILY Vitals/I & O Vital Sign - Last 24 Hours 06/17/16 06/17/16 06/17/16 06/17/16 15:42 17:00 19:00 19:47 Temp 97.3 98.2 97.3 98.2 Pulse 89 93 Resp B/P 164/69 154/68 Pulse Ox 92 99 O2 Delivery Nasal Cannula Nasal Cannula Nasal Cannula O2 Flow Rate 4.0 4.0 4.0 06/17/16 06/17/16 06/17/16 06/17/16 20:00 20:07 20:07 21:00 Pulse 89 Resp 16 17 B/P 164/69 O2 Delivery Nasal Cannula Nasal Cannula Nasal Cannula O2 Flow Rate 4.0 4.0 4.0 06/17/16 06/17/16 06/18/16 06/18/16 23:00 23:58 03:00 07:00 Temp 98.5 98.3 98.2 98.5 98.3 98.2 Pulse 70 72 58 Resp 18 18 B/P 145/70 136/66 125/56 Pulse Ox 100 99 97 O2 Delivery Nasal Cannula Room Air O2 Flow Rate 4.0 06/18/16 06/18/16 06/18/16 06/18/16 07:40 09:14 12:11 13:37 Pulse 60 B/P 104/52 O2 Delivery Nasal Cannula Nasal Cannula Nasal Cannula O2 Flow Rate 4.0 4.0 4.0 06/18/16 13:38 Pulse 60 B/P 104/52 Intake and Output 06/17/16 06/17/16 06/18/16 15:00 23:00 07:00 Intake Total 120 ml 480 ml 420 ml Output Total 0 ml Balance 120 ml 480 ml 420 ml Nutrition Consultation Dietary Evaluation: Comments: Offered supplements - pt refused all options Will try to maximize intake through food preferences Expected Outcomes/Goals: meet >75% est nutr needs Malnutrition Findings: Weight Status: Obese AC LEAL MD Jun 18, 2016 14:33
[2016-06-18 15:00] VITALS: BP 110/62
--- NOTE | 2016-06-18 16:02 | PDOC4 ---
PROCEDURE Procedure RENAL DIALYSIS / EL[facility]Y HD done. F180 / HCO3 / 3K Qb 450 ml/min Qd 600 ml/min UF to dry weight. Well tolerated. No complications. CPM. VSS. Labs reviewed. Supportive care. Star Grace M.D. STAR GRACE MD Jun 18, 2016 16:02
[2016-06-18 19:00] VITALS: BP 130/62
[2016-06-18] MEDS ORDERED: INSULIN DETEMIR 300 UNITS/3 ML INSULN.PEN. SQ SCH (21:00)
[2016-06-18 22:32] VITALS: BP 110/47
[2016-06-19 03:00] VITALS: BP 136/70
[2016-06-19] MEDS: HEPARIN PF for SUB-Q USE 5,000 UNIT/0.5 ML VIAL. SQ SCH (05:55)
[2016-06-19 07:00] VITALS: BP 120/69
[2016-06-19] MEDS: IPRATRPIUM/ALBUTEROL 0.5/2.5MG 3 ML NEBU. NEB SCH ×2 (07:21→11:07)
[2016-06-19] MEDS: INSULIN ASPART 300 UNITS/3 ML INSULN.PEN SQ SCH ×2 (07:42→11:35)
[2016-06-19] MEDS: LINAGLIPTIN 5 MG TABLET PO SCH (08:31)
[2016-06-19] MEDS: ASPIRIN 325 MG TABLET PO SCH (08:54)
[2016-06-19] MEDS: FOLIC/VIT B COMP W-C (RENAL) TABLET. PO SCH (08:54)
[2016-06-19] MEDS: OXYBUTYNIN CHLORIDE 5 MG TABLET PO SCH (08:54)
[2016-06-19] MEDS: ATORVASTATIN CALCIUM 10 MG TABLET. PO SCH (08:54)
[2016-06-19] MEDS: POTASSIUM CHLORIDE 20 MEQ TABLET.ER. PO SCH (08:54)
[2016-06-19] MEDS: CLOPIDOGREL BISULFATE 75 MG TABLET PO SCH (08:54)
[2016-06-19] MEDS: METOLAZONE 2.5 MG TABLET PO SCH (08:55)
[2016-06-19] MEDS: LISINOPRIL 20 MG TABLET PO SCH (08:55)
[2016-06-19] MEDS: METOPROLOL TART IMMED RELEASE 50 MG TABLET PO SCH (08:55)
--- NOTE | 2016-06-19 09:28 | PDOC ---
PULMONARY PROGRESS NOTES Subjective no mary Vitals Vital Signs Date Time Temp Pulse Resp B/P Pulse Ox O2 Delivery O2 Flow Rate FiO2 06/19/16 08:55 78 136/70 06/19/16 08:00 Nasal Cannula 4.0 06/19/16 07:21 99 06/19/16 03:00 97.8 19 97.8 General: Alert, Oriented X4, No acute distress Lungs: Clear Cardiovascular: S1, S2 Abdomen: Soft, Non-tender, Other Extremities: Other (trace edema) Labs Laboratory Tests Test 06/17/16 09:55 06/17/16 11:55 06/17/16 17:37 06/17/16 20:46 Glucose (Fingerstick) 204mg/dL (70-99) 147mg/dL (70-99) 139mg/dL (70-99) White Blood Count 5.9x10^3/uL (4.0-11.0) Red Blood Count 2.98x10^6/uL (3.50-5.40) Hemoglobin 9.5g/dL (12.0-15.5) Hematocrit 30.0% (36.0-47.0) Mean Corpuscular Volume 101fL (79-100) Mean Corpuscular Hemoglobin 32pg (25-35) Mean Corpuscular Hemoglobin Concent 32g/dL (31-37) Red Cell Distribution Width 17.6% (11.5-14.5) Platelet Count 296x10^3/uL (140-400) Neutrophils (%) (Auto) 77% (31-73) Lymphocytes (%) (Auto) 11% (24-48) Monocytes (%) (Auto) 12% (0-9) Eosinophils (%) (Auto) 0% (0-3) Basophils (%) (Auto) 1% (0-3) Neutrophils # (Auto) 4.5x10^3uL (1.8-7.7) Lymphocytes # (Auto) 0.6x10^3/uL (1.0-4.8) Monocytes # (Auto) 0.7x10^3/uL (0.0-1.1) Eosinophils # (Auto) 0.0x10^3/uL (0.0-0.7) Basophils # (Auto) 0.0x10^3/uL (0.0-0.2) Test 3/11/17 06:55 06/18/16 08:06 06/18/16 10:42 06/18/16 13:32 White Blood Count 6.3x10^3/uL (4.0-11.0) Red Blood Count 2.84x10^6/uL (3.50-5.40) Hemoglobin 9.1g/dL (12.0-15.5) Hematocrit 28.8% (36.0-47.0) Mean Corpuscular Volume 101fL (79-100) Mean Corpuscular Hemoglobin 32pg (25-35) Mean Corpuscular Hemoglobin Concent 32g/dL (31-37) Red Cell Distribution Width 17.4% (11.5-14.5) Platelet Count 276x10^3/uL (140-400) Neutrophils (%) (Auto) 65% (31-73) Lymphocytes (%) (Auto) 17% (24-48) Monocytes (%) (Auto) 16% (0-9) Eosinophils (%) (Auto) 1% (0-3) Basophils (%) (Auto) 1% (0-3) Neutrophils # (Auto) 4.1x10^3uL (1.8-7.7) Lymphocytes # (Auto) 1.1x10^3/uL (1.0-4.8) Monocytes # (Auto) 1.0x10^3/uL (0.0-1.1) Eosinophils # (Auto) 0.1x10^3/uL (0.0-0.7) Basophils # (Auto) 0.0x10^3/uL (0.0-0.2) Sodium Level 141mmol/L (136-145) Potassium Level 3.5mmol/L (3.5-5.1) Chloride Level 106mmol/L (98-107) Carbon Dioxide Level 35mmol/L (21-32) Anion Gap 0 (6-14) Blood Urea Nitrogen 21mg/dL (7-20) Creatinine 4.2mg/dL (0.6-1.0) Estimated GFR (Cockcroft-Gault) 12.6 Glucose Level 40mg/dL (70-99) Calcium Level 8.1mg/dL (8.5-10.1) Glucose (Fingerstick) 99mg/dL (70-99) 88mg/dL (70-99) 60mg/dL (70-99) Test 06/18/16 13:51 06/18/16 14:08 06/18/16 14:50 06/18/16 16:42 Glucose (Fingerstick) 55mg/dL (70-99) 77mg/dL (70-99) 127mg/dL (70-99) 110mg/dL (70-99) Test 06/18/16 20:51 06/19/16 00:14 06/19/16 07:12 06/19/16 07:45 Glucose (Fingerstick) 149mg/dL (70-99) 118mg/dL (70-99) 50mg/dL (70-99) 61mg/dL (70-99) Test 06/19/16 08:25 Glucose (Fingerstick) 102mg/dL (70-99) Laboratory Tests Test 06/18/16 10:42 06/18/16 13:32 06/18/16 13:51 06/18/16 14:08 Glucose (Fingerstick) 88mg/dL (70-99) 60mg/dL (70-99) 55mg/dL (70-99) 77mg/dL (70-99) Test 06/18/16 14:50 06/18/16 16:42 06/18/16 20:51 06/19/16 00:14 Glucose (Fingerstick) 127mg/dL (70-99) 110mg/dL (70-99) 149mg/dL (70-99) 118mg/dL (70-99) Test 06/19/16 07:12 06/19/16 07:45 06/19/16 08:25 Glucose (Fingerstick) 50mg/dL (70-99) 61mg/dL (70-99) 102mg/dL (70-99) Medications Active Scripts Medications Dose Route/Sig Days Date Category Lantus Solostar (Insulin Glargine,Hum.rec.anlog) 100 Unit/1 Ml Insuln.pen 30 Unit SQ QHS 09/03/15 Reported Marina-Jayme Tablet (Folic Acid/Vitamin B Comp W-C) 0.8 Mg Tablet 0.8 Mg PO 09/03/15 Reported Metolazone 2.5 Mg Tablet 2.5 Mg PO DAILY 09/03/15 Reported Metoprolol Tartrate 50 Mg Tablet 1 Tab PO TID 09/03/15 Reported Atorvastatin Calcium 20 Mg Tablet 30 Mg PO DAILY 09/03/15 Reported Lisinopril 20 Mg Tablet 20 Tab PO DAILY 06/15/15 Rx Klor-Con M20 (Potassium Chloride) 20 Meq Tab.er.prt 20 Meq PO DAILYWBKFT 03/29/15 Rx [Albuterol Sulfate] 2.5 MG/3 ML Nebu 2.5 Mg NEB PRN Q4HRS PRN 12/26/14 Rx Tradjenta (Linagliptin) 5 Mg Tablet 5 Mg PO DAILY 12/17/14 Rx Aspirin 325 Mg Tablet 1 Tab PO DAILY 01/25/14 Reported Tolterodine Tartrate 2 Mg Tablet 4 Mg PO DAILY 01/24/14 Reported Plavix (Clopidogrel Bisulfate) 75 Mg Tablet 75 Mg PO DAILY 01/10/14 Reported Impression . 1. Dyspnea secondary to development of basilar pleural effusion with mild vascular prominence and acute on chronic diastolic heart failure. 2. Underlying chronic obstructive pulmonary disease, clinically compensated. 3. No evidence of pneumonia. 4. History of pulmonary hypertension. When 2 echos were compared from January of last year to May of this year, the PA pressure doubled from 41-87. The V/Q scan performed at that time was without any evidence of pulmonary embolism. I suspect that the PA pressures on the recent echo may not be accurate and echo has to be repeated at some point. 5. Underlying obstructive sleep apnea, noncompliant to CPAP, but willing to try CPAP in future and will arrange sleep study as an outpatient. 6. End-stage renal disease on hemodialysis. 7. Hypertension under marginal control. Plan . 1. Optimization of blood pressure. 2. Continue dialysis with increased ultrafiltration. 3. Continue with home oxygen at 4 liters. 4. We will consider repeating an echo as an outpatient to assess the severity of pulmonary hypertension. 5. She has previously ruled out for PE by V/Q scan. 6. Bronchodilators. 7. Sleep study will be rescheduled as an outpatient as she is willing to try CPAP. 8. clinically better. ok with [facility] SHEILA ZHENG MD Jun 19, 2016 09:28
[2016-06-19 11:00] VITALS: BP 137/68
--- NOTE | 2016-06-19 12:33 | PDOC ---
GI PROGRESS NOTES Date Date/Time DATE: 06/19/16 TIME: 12:32 Subjective Subjective improved- no further abd pain- tolerating diet Objective Vitals Vital Signs Date Time Temp Pulse Resp B/P Pulse Ox O2 Delivery O2 Flow Rate FiO2 06/19/16 11:07 Nasal Cannula 4.0 06/19/16 08:55 78 136/70 06/19/16 08:55 67 136/70 06/19/16 08:00 Nasal Cannula 4.0 06/19/16 07:21 99 Nasal Cannula 4.0 06/19/16 07:00 98.0 68 22 120/69 97 Room Air 98.0 06/19/16 03:00 97.8 67 19 136/70 100 Nasal Cannula 4.0 97.8 06/18/16 22:32 98.6 79 18 110/47 95 Nasal Cannula 4.0 98.6 06/18/16 21:12 98 Nasal Cannula 4.0 06/18/16 20:51 76 130/62 06/18/16 20:00 Nasal Cannula 4.0 06/18/16 19:00 97.8 76 17 130/62 100 Room Air 97.8 06/18/16 17:01 Nasal Cannula 4.0 06/18/16 15:00 97.9 62 110/62 98 Room Air 97.9 06/18/16 13:38 60 104/52 06/18/16 13:37 60 104/52 Labs Labs Laboratory Tests Test 06/18/16 13:32 06/18/16 13:51 06/18/16 14:08 06/18/16 14:50 Glucose (Fingerstick) 60mg/dL (70-99) 55mg/dL (70-99) 77mg/dL (70-99) 127mg/dL (70-99) Test 06/18/16 16:42 06/18/16 20:51 06/19/16 00:14 06/19/16 07:12 Glucose (Fingerstick) 110mg/dL (70-99) 149mg/dL (70-99) 118mg/dL (70-99) 50mg/dL (70-99) Test 06/19/16 07:45 06/19/16 08:25 06/19/16 11:21 06/19/16 12:15 Glucose (Fingerstick) 61mg/dL (70-99) 102mg/dL (70-99) 74mg/dL (70-99) 95mg/dL (70-99) Assessment Assessment segmental colitis on CT with pain- clinically improved Problems: Plan Plan continue present plans ISAAC CAMEJO MD Jun 19, 2016 12:33
--- NOTE | 2016-06-19 13:47 | PDOC3 ---
Discharge Summary [facility] Date of Admission: Jun 16, 2016 Discharge Date: Jun 19, 2016 Admitting Diagnosis 1. Eolpo-gk-wlqqedf DIAstolic congestive heart failure. 2. ESRD on HD MWF 3. Onvfz-wn-xwbvaug respiratory failure. Hypoxia 4. abd pain 2/[address], ischemic? 5. Diabetes mellitus 6. Hypertension urgency 7. Peripheral artery disease. 8. Hyperlipidemia. 9. Asthma 10. COPD 11. Diverticulosis 12. chronic anemia 2/2 CHF, ESRD 13. Anxiety 14. abd aneurysm, vascular consulted, no sx Problems: Final Diagnosis CONSULTS renal card pulm gi vascular Brief Hospital Course Patient is a 70 year old female who is known to our group for CHF, copd, sob, esrd on HD, comes for sob and abd pain. She was here 2 weeks ago, for sob. sob worse 3 days after she was DCed, with mild cough, no fever, chills. home o2 was 3L, up to 4L since 2 weeks ago in hosp , but not require higher O2 for 2 weeks. whole abd pain, with diarrhea 4 times a day for 1 week, today is better. Pt went to urgent care for abd pain today, was found sat 70% on NC4L, then sent her here. Pt missed her HD and diuretics yesterday. still not using her CPAP coz not know how to use it. pt abd pain better, no diarrhea in hosp, no N/V dc home , dc time 35min General: Alert, Oriented X3, Cooperative Heart: Regular rate, Normal S1 Lungs: Clear Abdomen: Normal bowel sounds, Soft Extremities: No clubbing Patient History: FH: heart attack Family history: Cardiomyopathy (situation) 32 MOTHER (DE resulting in ) Family history: Cardiovascular disease (situation) 32 MOTHER (stroke/HTN ) Family history: Diabetes mellitus (situation) G8 BROTHER Problems: Disposition home CONDITION AT DISCHARGE: Improved, Stable Diet renal Scheduled Aspirin (Aspirin) 1 TAB PO DAILY (Reported) Atorvastatin Calcium (Atorvastatin Calcium) 30 MG PO DAILY (Reported) Clopidogrel Bisulfate (Plavix) 75 MG PO DAILY (Reported) Insulin Glargine,Hum.rec.anlog (Lantus Solostar) 30 UNIT SQ QHS (Reported) Linagliptin (Tradjenta) 5 MG PO DAILY Lisinopril (Lisinopril) 20 TAB PO DAILY Metolazone (Metolazone) 2.5 MG PO DAILY (Reported) Metoprolol Tartrate (Metoprolol Tartrate) 1 TAB PO TID (Reported) Potassium Chloride (Klor-Con M20) 20 MEQ PO DAILYWBKFT Tolterodine Tartrate (Tolterodine Tartrate) 4 MG PO DAILY (Reported) Scheduled PRN ([Albuterol Sulfate]) 2.5 MG NEB PRN Q4HRS PRN PRN SHORTNESS OF BREATH Miscellaneous Medications Folic Acid/Vitamin B Comp W-C (Marina-Jayme Tablet) 0.8 MG PO (Reported) Follow Up pcp in 2 weeks AC LEAL MD Jun 19, 2016 13:47
[2016-06-27] MEDS ORDERED: PROAIR HFA8.5 GM INH (15:18)
== END 2016-06-19 12:46 | disposition home or self-care (01) | DRG 393 ==
LOC: ER 13:29 → 5 SOUTH 16:03
PROVIDERS: ADMIT Internal Medicine; ATTEND Internal Medicine
PROC: 5A1D00Z (ICD-10-PCS; principal; 2016-06-18)
DX: K55.039 Acute (reversible) ischemia of large intestine, extent unspecified (principal); J96.21 Acute and chronic respiratory failure with hypoxia; I50.33 Acute on chronic diastolic (congestive) heart failure; N18.6 End stage renal disease; I13.2 Hypertensive heart and chronic kidney disease with heart failure and with stage 5 chronic kidney disease, or end stage renal disease; J44.1 Chronic obstructive pulmonary disease with (acute) exacerbation; E87.0 Hyperosmolality and hypernatremia; J98.11 Atelectasis; E11.22 Type 2 diabetes mellitus with diabetic chronic kidney disease; K52.9 Noninfective gastroenteritis and colitis, unspecified; E11.51 Type 2 diabetes mellitus with diabetic peripheral angiopathy without gangrene; E78.5 Hyperlipidemia, unspecified; I25.10 Atherosclerotic heart disease of native coronary artery without angina pectoris; J45.909 Unspecified asthma, uncomplicated; F41.9 Anxiety disorder, unspecified; E78.00 Pure hypercholesterolemia, unspecified; E11.65 Type 2 diabetes mellitus with hyperglycemia; D63.8 Anemia in other chronic diseases classified elsewhere; E87.5 Hyperkalemia; F02.80 Dementia in other diseases classified elsewhere, unspecified severity, without behavioral disturbance, psychotic disturbance, mood disturbance, and anxiety; G30.9 Alzheimer's disease, unspecified; G47.33 Obstructive sleep apnea (adult) (pediatric); I27.2 Other secondary pulmonary hypertension; I71.4 Abdominal aortic aneurysm, without rupture; K21.9 Gastro-esophageal reflux disease without esophagitis; K40.90 Unilateral inguinal hernia, without obstruction or gangrene, not specified as recurrent; K44.9 Diaphragmatic hernia without obstruction or gangrene; K57.90 Diverticulosis of intestine, part unspecified, without perforation or abscess without bleeding; Z82.3 Family history of stroke; Z82.49 Family history of ischemic heart disease and other diseases of the circulatory system; Z83.3 Family history of diabetes mellitus; Z79.82 Long term (current) use of aspirin; Z99.2 Dependence on renal dialysis; Z79.899 Other long term (current) drug therapy; Z91.15 Patient's noncompliance with renal dialysis; Z87.891 Personal history of nicotine dependence; Z91.14 Patient's other noncompliance with medication regimen; Z91.19 Patient's noncompliance with other medical treatment and regimen; Z95.5 Presence of coronary angioplasty implant and graft; Z87.01 Personal history of pneumonia (recurrent); Z91.041 Radiographic dye allergy status; I16.0 Hypertensive urgency
CPT/HCPCS: 36415; 71010; 74176; 80048; 80053; 82947; 83690; 84484; 85027; 87045; 87324; 93005; 94250; 94640; 94760; 96374; 96375; J0360; J1815; J2270; J7042; J7512; J7620; Q0163; 99285-25

== ENCOUNTER 2016-06-30 10:08 | Day surgery (SDC) | payer MEDICARE, BC ==
[~2016-06-30 10:08] MED LIST changes: +BALANCED SALT IRRIG OPHTH SOLN 15 ML BOTTLE. ONE; +CHONDROIT-SOD-HYALURONATE KIT. ONE; +CIPROFLOXACIN 0.3% OPHTH SOLUTION 2.5ML BOTTLE. OS ONE; +EPINEPHRINE 0.2 MG in BALANCED SALT IRR SOLN (BAG) 500 ML IO ONE; +FENTANYL PF 100 MCG/2 ML VIAL. IV PRN; +HYDROMORPHONE 2 MG/ML VIAL. IV PRN; +IV RINGERS,LACTATED 1000ML 1,000 ML IV SCH; +LIDOCAINE 1% 1 ML SYRINGE. ID PRN; +LIDOCAINE 1% PF 2 ML VIAL. ONE; +LIDOCAINE 2% JELLY 6ML IN APPLICATOR. MM PRN; +MORPHINE SULFATE 2 MG/ML DISP.SYRIN. IV PRN; +NEO/POLYMYX/DEXAMETH OPHTH OINTMENT 3.5GM TUBE. ONE; +ONDANSETRON PF 4 MG/2 ML VIAL. IV PRN; +PROAIR HFA8.5 GM INH; +PROCHLORPERAZINE 10 MG/2 ML VIAL. IV PRN; +PROPARACAINE 0.5% OPHTH SOLUTION 15ML BOTTLE. OS ONE
[2016-06-30] MEDS ORDERED: IV NORMAL SALINE 1000ML BAG 1,000 ML IV SCH (10:45)
[2016-06-30] MEDS: CYCLOPENTOLATE 1% OPTH SOLUTION 2ML BOTTLE. OS SCH ×3 (11:27→11:37)
[2016-06-30] MEDS: PHENYLEPHRINE 10% OPHTH SOLUTION 5ML BOTTLE. OS SCH ×2 (11:27→11:37)
[2016-06-30 13:21] VITALS: BP 164/77
--- NOTE | 2016-06-30 15:47 | OP ---
DATE OF SURGERY: 06/30/2016 PREOPERATIVE DIAGNOSIS: Senile cataract, left eye. POSTOPERATIVE DIAGNOSIS: Senile cataract, left eye. PROCEDURE: Phacoemulsification with posterior chamber lens implant, left eye. ANESTHESIA: Local with MAC. DESCRIPTION OF PROCEDURE: The patient's dilating drops and topical anesthesia were applied in the outpatient department. The [place] balloon cuff was placed over the eye and inflated to 30 mmHg and allowed to act for about 15 minutes. The patient was then brought to the operating room and positioned on the table and the left eye was prepped and draped in the usual sterile manner for an intraocular procedure. The operating scope was brought into position and it was noted that the pupil was dilated well. A paracentesis incision was made inferior temporally and 1% lidocaine injected into the anterior chamber followed by an injection of Viscoat. The primary 2.4 mm incision was then made temporally. A bent needle and forceps were used to make a capsulorrhexis of about 5.5-6 mm in size. The lens nucleus was then phacoemulsified without any difficulty. The cortex was cleaned up with the I/A handpiece. Provisc was then used to insufflate the bag and a posterior chamber lens placed into the bag without difficulty. A +24.0 diopter lens was used. The viscoelastic was aspirated with the I/A handle and the eye was pressurized and the wounds were checked for leaks and there were none. The speculum and drape were removed and Maxitrol ointment instilled in the conjunctival sac and the eye was shielded. The patient was taken to the recovery room in satisfactory condition. There were no complications and I will see her tomorrow in my office. K MARISSA ARELLANO MD DR: JULES/courtney JOB#: [id number] / [id number]
== END 2016-06-30 13:42 | disposition home or self-care (01) ==
LOC: SURG 10:08
PROVIDERS: ATTEND Ophthalmology
DX: E11.36 Type 2 diabetes mellitus with diabetic cataract (principal); I10 Essential (primary) hypertension; E78.00 Pure hypercholesterolemia, unspecified; I25.10 Atherosclerotic heart disease of native coronary artery without angina pectoris; I73.9 Peripheral vascular disease, unspecified; I82.401 Acute embolism and thrombosis of unspecified deep veins of right lower extremity; J44.9 Chronic obstructive pulmonary disease, unspecified; J45.909 Unspecified asthma, uncomplicated; K21.9 Gastro-esophageal reflux disease without esophagitis; E66.9 Obesity, unspecified
CPT/HCPCS: 66984; 82947; C1780; J0171

== ENCOUNTER 2016-07-12 15:30 | Inpatient (IN) | payer MEDICARE, BC ==
[~2016-07-12] VITALS: Ht 154.9 cm; Wt 82.7 kg
[~2016-07-12 15:30] MED LIST changes: -BALANCED SALT IRRIG OPHTH SOLN 15 ML BOTTLE. ONE; -CHONDROIT-SOD-HYALURONATE KIT. ONE; -CIPROFLOXACIN 0.3% OPHTH SOLUTION 2.5ML BOTTLE. OS ONE; -EPINEPHRINE 0.2 MG in BALANCED SALT IRR SOLN (BAG) 500 ML IO ONE; -FENTANYL PF 100 MCG/2 ML VIAL. IV PRN; -HYDROMORPHONE 2 MG/ML VIAL. IV PRN; -IV RINGERS,LACTATED 1000ML 1,000 ML IV SCH; -LIDOCAINE 1% 1 ML SYRINGE. ID PRN; -LIDOCAINE 1% PF 2 ML VIAL. ONE; -LIDOCAINE 2% JELLY 6ML IN APPLICATOR. MM PRN; -MORPHINE SULFATE 2 MG/ML DISP.SYRIN. IV PRN; -NEO/POLYMYX/DEXAMETH OPHTH OINTMENT 3.5GM TUBE. ONE; -ONDANSETRON PF 4 MG/2 ML VIAL. IV PRN; -PROCHLORPERAZINE 10 MG/2 ML VIAL. IV PRN; -PROPARACAINE 0.5% OPHTH SOLUTION 15ML BOTTLE. OS ONE
[2016-07-12 15:59] LABS: BASO % 1 % (0-3); EOS % 1 % (0-3); HEMATOCRIT 32.6 % (36.0-47.0); HEMOGLOBIN 10.2 g/dL (12.0-15.5); LYMPH # 1.3 x10^3/uL (1.0-4.8); LYMPH % 13 % (24-48); MEAN CORPUSCULAR HEMOGLOBIN 32 pg (25-35); MEAN CORPUSCULAR HGB CONC 31 g/dL (31-37); MEAN CORPUSCULAR VOLUME 103 fL (79-100); MONO % 13 % (0-9); NEUT % 73 % (31-73); PLATELET COUNT 352 x10^3/uL (140-400); RED BLOOD COUNT 3.18 x10^6/uL (3.50-5.40); RED CELL DISTRIBUTION WIDTH 16.8 % (11.5-14.5); WHITE BLOOD COUNT 9.8 x10^3/uL (4.0-11.0)
[2016-07-12] MEDS ORDERED: methylPREDNISolone SOD SUCC PF 125 MG/2 ML VIAL. IV ONE (16:00)
--- NOTE | 2016-07-12 16:00 | PHYS DOC ---
Past Medical History Past Medical History: CHF, COPD, Diabetes-Type II, DVT, High Cholesterol, Hypertension, [place], Renal Disease, Renal Failure, Other Additional Past Medical Histor: dialysis MWF, O2 4LNC @ home, CPAP Past Surgical History: Angioplasty, Other Additional Past Surgical Histo: cardiac cath with stent placement, rotator cuff surgery,AV graft Alcohol Use: None Drug Use: None Adult General Chief Complaint Chief Complaint: SHORTNESS OF BREATH HPI HPI 70-year-old female who states she's had increasing shortness breath the last several weeks stating that minimal exertion will make her short of breath requiring use her inhaler. She followed up today with Dr. Mauricio regarding her COPD and he found her to have a low oxygen saturation and he requested she come to the ER for further evaluation. She is requiring 4 L which is higher requirement than her usual 3 L at home. She does not appear to be any acute distress upon my initial evaluation. She denies any chest pain. She denies any cough or fever. She is also dialysis patient and received a full treatment yesterday. She also relates that she's had increased swelling in her lower extremity more on the left than the right. Review of Systems Review of Systems Constitutional: Denies fever or chills [] Eyes: Denies change in visual acuity, redness, or eye pain [] HENT: Denies nasal congestion or sore throat [] Respiratory: Denies cough, has shortness of breath [] Cardiovascular: No additional information not addressed in HPI [] GI: Denies abdominal pain, nausea, vomiting, bloody stools or diarrhea [] : Denies dysuria or hematuria [] Musculoskeletal: Denies back pain or joint pain [] Integument: Denies rash or skin lesions [] Neurologic: Denies headache, focal weakness or sensory changes [] Endocrine: Denies polyuria or polydipsia [] Current Medications Current Medications Current Medications Medications (Trade) Dose Ordered Sig/Eric Start Time Stop Time Status Last Admin Dose Admin Albuterol/ Ipratropium (Duoneb) 3 ml 1X ONCE 07/12/16 16:15 07/12/16 16:16 DC 07/12/16 16:03 3 ML Methylprednisolone Sodium Succinate (Solu-Medrol 125mg Vial) 125 mg 1X ONCE 07/12/16 16:00 07/12/16 16:05 DC 07/12/16 16:20 125 MG Allergies Allergies Allergies Coded Allergies Type Severity Reaction Last Updated Verified Iodinated Contrast Media - Oral and Allergy Intermediate 06/30/16 Yes Physical Exam Physical Exam Constitutional: Well developed, well nourished, no acute distress, non-toxic appearance. [] HENT: Normocephalic, atraumatic, bilateral external ears normal, oropharynx moist, no oral exudates, nose normal. [] Eyes: PERRLA, EOMI, conjunctiva normal, no discharge. [] Neck: Normal range of motion, no tenderness, supple, no stridor. [] Cardiovascular:Heart rate regular rhythm, no murmur [] Lungs & Thorax: Slightly coarse bilaterally but no acute respiratory distress [ ] Abdomen: Bowel sounds normal, soft, no tenderness, no masses, no pulsatile masses. [] Skin: Warm, dry, no erythema, no rash. [] Back: No tenderness, no CVA tenderness. [] Extremities: No tenderness, no cyanosis, no clubbing, ROM intact, no edema. [] Neurologic: Alert and oriented X 3, normal motor function, normal sensory function, no focal deficits noted. [] Psychologic: Affect normal, judgement normal, mood normal. [] Current Patient Data Vital Signs Vital Signs Date Time Temp Pulse Resp B/P Pulse Ox O2 Delivery O2 Flow Rate FiO2 07/12/16 16:07 96 Nasal Cannula 4.0 07/12/16 15:30 98.3 92 22 175/75 98.3 Lab Values Laboratory Tests Test 07/12/16 15:45 White Blood Count 9.8x10^3/uL (4.0-11.0) Red Blood Count 3.18x10^6/uL (3.50-5.40) L Hemoglobin 10.2g/dL (12.0-15.5) L Hematocrit 32.6% (36.0-47.0) L Mean Corpuscular Volume 103fL (79-100) H Mean Corpuscular Hemoglobin 32pg (25-35) Mean Corpuscular Hemoglobin Concent 31g/dL (31-37) Red Cell Distribution Width 16.8% (11.5-14.5) H Platelet Count 352x10^3/uL (140-400) Neutrophils (%) (Auto) 73% (31-73) Lymphocytes (%) (Auto) 13% (24-48) L Monocytes (%) (Auto) 13% (0-9) H Eosinophils (%) (Auto) 1% (0-3) Basophils (%) (Auto) 1% (0-3) Neutrophils # (Auto) 7.1x10^3uL (1.8-7.7) Lymphocytes # (Auto) 1.3x10^3/uL (1.0-4.8) Monocytes # (Auto) 1.3x10^3/uL (0.0-1.1) H Eosinophils # (Auto) 0.1x10^3/uL (0.0-0.7) Basophils # (Auto) 0.0x10^3/uL (0.0-0.2) D-Dimer (Rhonda) 1.42ug/mlFEU (0.00-0.50) H Sodium Level 142mmol/L (136-145) Potassium Level 4.7mmol/L (3.5-5.1) Chloride Level 104mmol/L (98-107) Carbon Dioxide Level 29mmol/L (21-32) Anion Gap 9 (6-14) Blood Urea Nitrogen 30mg/dL (7-20) H Creatinine 3.9mg/dL (0.6-1.0) H Estimated GFR (Cockcroft-Gault) 13.7 Glucose Level 269mg/dL (70-99) H Calcium Level 8.4mg/dL (8.5-10.1) L Total Bilirubin 0.5mg/dL (0.2-1.0) Direct Bilirubin < 0.1mg/dL (0.0-0.2) Aspartate Amino Transferase (AST) 33U/L (15-37) Alanine Aminotransferase (ALT) 24U/L (14-59) Alkaline Phosphatase 131U/L (46-116) H Troponin I Quantitative 0.026ng/mL (0.000-0.055) XM-Mmz-F-Type Natriuretic Peptide > 31803qt/mL (0-124) H Total Protein 6.2g/dL (6.4-8.2) L Albumin 2.4g/dL (3.4-5.0) L Laboratory Tests 07/12/16 15:45 Laboratory Tests 07/12/16 15:45 EKG EKG EKG as interpreted by me shows a sinus rhythm with an intermittent PVC. Approximate heart rate is 88 bpm. There is a T-wave inversion to lead 3 as well as V2 and V3. EKG does not meet STEMI criteria. There is no ectopy. Radiology/Procedures Radiology/Procedures [Portable chest, 07/12/2016: History: Hypoxia Comparison is made to a study from 06/16/2016. The heart is enlarged. There is calcific plaquing of the aorta. The pulmonary vascularity is normal. There is blunting of the lateral costophrenic angles which is unchanged and suggests a small amount of pleural fluid. There is mild underlying left basilar linear atelectasis. No pulmonary consolidation is seen. IMPRESSION: 1. Cardiomegaly. 2. Small bilateral pleural effusions with mild underlying basilar atelectasis. 3. No significant change since 06/16/2016. Course & Med Decision Making Course & Med Decision Making Pertinent Labs and Imaging studies reviewed. (See chart for details) 70-year-old female who's having ongoing shortness breath on full laboratory workup including a chest x-ray and EKG. Her EKG at this time shows an intermittent PVC but there are noted T-wave inversions to V2 and V3. She is requiring more oxygen than her usual 3 L. D-dimer will be ordered as well as cardiac enzymes. DuoNeb will be administered. Her laboratory workup is remarkable for elevated BNP that she's had before as well as an elevated BUN/creatinine. Patient does have history of renal failure received her full dialysis yesterday. EKG had symptoms noted T-wave inversion in several leads. D-dimer was elevated. I cannot give the patient contrast bolus for CT of the chest and so a ventilation perfusion scan will be ordered and obtained and this will be done while the patient is transported up to the room. There is certainly a degree of heart failure and COPD and so I have consult to cardiology and pulmonology as well. I discussed her case with the hospitalist, Dr. Shafer, who agreed to accept the patient for further evaluation and treatment. Dragon Disclaimer Dragon Disclaimer This electronic medical record was generated, in whole or in part, using a voice recognition dictation system. Departure Departure Impression: Primary Impression: CHF exacerbation Additional Impression: COPD (chronic obstructive pulmonary disease) Disposition: ADMITTED INPATIENT Admitting Physician: Kenzie Shafer Condition: STABLE Referrals: BERTO TORRES MD (PCP) Problem Qualifiers JAKUB CHRISTIAN DO Jul 12, 2016 16:00
--- NOTE | 2016-07-12 16:04 | EKG ---
[facility] [address] [place] [address] Test Date: 2016-07-12 Test Time: 15:42:59 Pat Name: WANDA PRABHAKAR Department: Room: Gender: F [employer] Molder: : 1945 Requested By: JAKUB CHRISTIAN Order Number: [id number] Reading MD: Measurements Intervals [place] Rate: 98 P: -29 RI: 84 QRS: -43 QRSD: 130 T: -6 QT: 376 QTc: 482 Interpretive Statements SINUS RHYTHM ATRIAL PREMATURE COMPLEX(ES) ABNORMAL LEFT AXIS DEVIATION RIGHT BUNDLE BRANCH BLOCK RVH WITH REPOLARIZATION ABNORMALITY QRS(T) CONTOUR ABNORMALITY CONSIDER ANTEROLATERAL MYOCARDIAL DAMAGE CONSIDER INFERIOR INFARCT ABNORMAL ECG RI6.01 No previous ECG available for comparison
[2016-07-12] MEDS ORDERED: IPRATRPIUM/ALBUTEROL 0.5/2.5MG 3 ML NEBU. NEB ONE (16:15)
[2016-07-12 16:16] LABS: CALCIUM 8.4 mg/dL (8.5-10.1); CREATININE 3.9 mg/dL (0.6-1.0); GFR 13.7; POTASSIUM 4.7 mmol/L (3.5-5.1)
--- NOTE | 2016-07-12 16:25 | RAD ---
Portable chest, 07/12/2016: History: Hypoxia Comparison is made to a study from 06/16/2016. The heart is enlarged. There is calcific plaquing of the aorta. The pulmonary vascularity is normal. There is blunting of the lateral costophrenic angles which is unchanged and suggests a small amount of pleural fluid. There is mild underlying left basilar linear atelectasis. No pulmonary consolidation is seen. IMPRESSION: 1. Cardiomegaly. 2. Small bilateral pleural effusions with mild underlying basilar atelectasis. 3. No significant change since 06/16/2016.
[2016-07-12] MEDS ORDERED: ACETAMINOPHEN 325 MG TABLET. PO PRN (17:00)
[2016-07-12] MEDS ORDERED: ONDANSETRON PF 4 MG/2 ML VIAL. IV PRN (17:00)
[2016-07-12] MEDS ORDERED: DEXTROSE 50% 25 GM / 50ML DISP.SYRIN. IV PRN (17:30)
--- NOTE | 2016-07-12 17:32 | PDOC1 ---
History and Physical Date of Admission Date of Admission DATE: 07/12/16 TIME: 17:22 Identification/Chief Complaint Chief Complaint short of breath Source Source: Chart review, Patient History of Present Illness History of Present Illness Ms. Kim Pacheco is a 70-year-old female sent from Dr. Bowen clinic today for dyspnea and hypoxia. was t f/u COPD appt./ Patient states she's had increasing shortness breath the last several weeks stating that minimal exertion will make her short of breath requiring use her inhaler. She has been compliant with HD, was at dialysis yesterday, and he talked to her and is concerned about her weight loss. She is under her normal weight, but has new LE edema over the past few weeks. She is requiring 5 L which is higher requirement than her usual 3 L at home. Will do nebs and try to wean Past Medical History Cardiovascular: CAD, CHF, HTN, Hyperlipidemia, Other Pulmonary: Asthma, COPD, Other CENTRAL NERVOUS SYSTEM: Other GI: Diverticulosis Heme/Onc: Anemia NOS Psych: Anxiety Rheumatologic: No pertinent hx Infectious disease: No pertinent hx Renal/: Chronic renal failure Endocrine: Diabetes Past Surgical History Past Surgical History: Appendectomy, Arthroscopy, Other Family History Family History: Coronary Artery Disease, Diabetes, Hypertension Social History Smoke: No ALCOHOL: none Drugs: None Current Problem List Problem List Problems Medical Problems: (1) CHF exacerbation Status: Acute (2) COPD (chronic obstructive pulmonary disease) Status: Acute Problems: Current Medications Current Medications Current Medications Albuterol/ Ipratropium (Duoneb) 3 ml 1X ONCE NEB Last administered on 16:03; Start 07/12/16 at 16:15; Stop 07/12/16 at 16:16; Status DC Methylprednisolone Sodium Succinate (Solu-Medrol 125mg Vial) 125 mg 1X ONCE IV Last administered on 07/12/16 16:20; Start 07/12/16 at 16:00; Stop 07/12/16 at 16:05; Status DC Ondansetron HCl (Zofran) 4 mg PRN Q8HRS PRN IV NAUSEA/VOMITING; Start 07/12/16 at 17:00; Stop 07/13/16 at 16:59 Acetaminophen (Tylenol) 650 mg PRN Q4HRS PRN PO FEVER; Start 07/12/16 at 17:00; Stop 07/13/16 at 16:59 Albuterol/ Ipratropium (Duoneb) 3 ml RTQID NEB ; Start 07/12/16 at 20:00; Stop at 19:59 Active Scripts Active Lisinopril 20 Mg Tablet 20 Tab PO DAILY Klor-Con M20 (Potassium Chloride) 20 Meq Tab.er.prt 20 Meq PO DAILYWBKFT [Albuterol Sulfate] 2.5 MG/3 ML Nebu 2.5 Mg NEB PRN Q4HRS PRN Tradjenta (Linagliptin) 5 Mg Tablet 5 Mg PO DAILY Reported Proair Hfa Inhaler (Albuterol Sulfate) 8.5 Gm Hfa.aer.ad 2 Puff INH PRN Q6HRS PRN Lantus Solostar (Insulin Glargine,Hum.rec.anlog) 100 Unit/1 Ml Insuln.pen 30 Unit SQ QHS Marina-Jayme Tablet (Folic Acid/Vitamin B Comp W-C) 0.8 Mg Tablet 0.8 Mg PO Metolazone 2.5 Mg Tablet 2.5 Mg PO DAILY Metoprolol Tartrate 50 Mg Tablet 1 Tab PO DAILY Atorvastatin Calcium 20 Mg Tablet 30 Mg PO DAILY Aspirin 325 Mg Tablet 1 Tab PO DAILY Tolterodine Tartrate 2 Mg Tablet 4 Mg PO DAILY Plavix (Clopidogrel Bisulfate) 75 Mg Tablet 75 Mg PO DAILY Allergies Allergies: Coded Allergies: Iodinated Contrast Media - Oral and (Verified Allergy, Intermediate, ) ROS General: YES: Fatigue, Malaise, No: Appetite, Chills, Night Sweats, Other PSYCHOLOGICAL ROS: No: Anxiety, Behavioral Disorder, Concentration difficultie , Decreased libido, Depression, Disorientation, Hallucinations, Hostility, Irritablity, Memory difficulties, Mood Swings, Obsessive thoughts, Other, Physical abuse, Sexual abuse, Sleep disturbances, Suicidal ideation HEENT: No: Epistaxis, Heacaches, Hearing change, Nasal congestion, Nasal discharge, Oral lesions, Other, Sinus pain, Sneezing, Snoring, Sore Throat, Tinnitus, Vertigo, Visual Changes, Vocal changes Respiratory: YES: SOB with excertion, Shortness of breath, No: Cough, Hemoptysis, Orthopnea, Other, Pleuritic Pain, Sputum Changes, Stridor, Tachypnea, Wheezing Cardiovascular: yes Edema, yes Orthopnea, No Chest Pain, No Lt Headedness, No Other, No Palpitations, No Paroxysmal Noc. Dyspnea Gastrointestinal: No Abdominal Pain, No Constipation, No Diarrhea, No Hematochezia, No Melena, No Nausea, No Other, No Vomiting Genitourinary: No , No , No , No , No , No , No , No Discharge, No Dysuria, No Flank Pain, No Frequency, No Hematuria, No Incontinence, No Other, No Pain, No Retention, No Urgency Musculoskeletal: No Gait Disturbance, No Joint Pain, No Joint Stiffness, No Joint Swelling, No Muscle Pain, No Muscular Weakness, No Other, No Pain In:, No Swelling In: Neurological: No Behavorial Changes, No Bowel/Bladder ControlChng, No Confusion , No Dizziness, No Gait Disturbance, No Headaches, No Impaired Coord/balance, No Memory Loss, No Numbness/Tingling, No Other, No Seizures, No Speech Problems , No Tremors, No Visual Changes, No Weakness Skin: No Acne, No Dry Skin, No Eczema, No Hair Changes, No Lumps, No Mole Changes, No Mottling, No Nail Changes, No Other, No Pruritus, No Rash, No Skin Lesion Changes Physical Exam General: Alert, Oriented X3, Cooperative, No acute distress, mild distress Lungs: Clear to auscultation, Normal air movement ( no wheeze) Heart: S1S2, no murmurs Abdomen: Normal bowel sounds, Soft, No tenderness Rectal Exam: not examined Extremities: No clubbing, Other (2+ pretibial edema) Skin: No rashes, No significant lesion Neuro: Normal speech, Sensation intact Psych/Mental Status: Mental status NL Vitals Vitals Vital Signs Date Time Temp Pulse Resp B/P Pulse Ox O2 Delivery O2 Flow Rate FiO2 07/12/16 16:07 96 Nasal Cannula 4.0 07/12/16 15:30 98.3 92 22 175/75 98.3 Labs Labs Laboratory Tests Test 07/12/16 15:45 White Blood Count 9.8x10^3/uL (4.0-11.0) Red Blood Count 3.18x10^6/uL (3.50-5.40) Hemoglobin 10.2g/dL (12.0-15.5) Hematocrit 32.6% (36.0-47.0) Mean Corpuscular Volume 103fL (79-100) Mean Corpuscular Hemoglobin 32pg (25-35) Mean Corpuscular Hemoglobin Concent 31g/dL (31-37) Red Cell Distribution Width 16.8% (11.5-14.5) Platelet Count 352x10^3/uL (140-400) Neutrophils (%) (Auto) 73% (31-73) Lymphocytes (%) (Auto) 13% (24-48) Monocytes (%) (Auto) 13% (0-9) Eosinophils (%) (Auto) 1% (0-3) Basophils (%) (Auto) 1% (0-3) Neutrophils # (Auto) 7.1x10^3uL (1.8-7.7) Lymphocytes # (Auto) 1.3x10^3/uL (1.0-4.8) Monocytes # (Auto) 1.3x10^3/uL (0.0-1.1) Eosinophils # (Auto) 0.1x10^3/uL (0.0-0.7) Basophils # (Auto) 0.0x10^3/uL (0.0-0.2) D-Dimer (Rhonda) 1.42ug/mlFEU (0.00-0.50) Sodium Level 142mmol/L (136-145) Potassium Level 4.7mmol/L (3.5-5.1) Chloride Level 104mmol/L (98-107) Carbon Dioxide Level 29mmol/L (21-32) Anion Gap 9 (6-14) Blood Urea Nitrogen 30mg/dL (7-20) Creatinine 3.9mg/dL (0.6-1.0) Estimated GFR (Cockcroft-Gault) 13.7 Glucose Level 269mg/dL (70-99) Calcium Level 8.4mg/dL (8.5-10.1) Troponin I Quantitative 0.026ng/mL (0.000-0.055) YT-Vin-F-Type Natriuretic Peptide > 70036fn/mL (0-124) Laboratory Tests Test 07/12/16 15:45 White Blood Count 9.8x10^3/uL (4.0-11.0) Red Blood Count 3.18x10^6/uL (3.50-5.40) Hemoglobin 10.2g/dL (12.0-15.5) Hematocrit 32.6% (36.0-47.0) Mean Corpuscular Volume 103fL (79-100) Mean Corpuscular Hemoglobin 32pg (25-35) Mean Corpuscular Hemoglobin Concent 31g/dL (31-37) Red Cell Distribution Width 16.8% (11.5-14.5) Platelet Count 352x10^3/uL (140-400) Neutrophils (%) (Auto) 73% (31-73) Lymphocytes (%) (Auto) 13% (24-48) Monocytes (%) (Auto) 13% (0-9) Eosinophils (%) (Auto) 1% (0-3) Basophils (%) (Auto) 1% (0-3) Neutrophils # (Auto) 7.1x10^3uL (1.8-7.7) Lymphocytes # (Auto) 1.3x10^3/uL (1.0-4.8) Monocytes # (Auto) 1.3x10^3/uL (0.0-1.1) Eosinophils # (Auto) 0.1x10^3/uL (0.0-0.7) Basophils # (Auto) 0.0x10^3/uL (0.0-0.2) D-Dimer (Rhonda) 1.42ug/mlFEU (0.00-0.50) Sodium Level 142mmol/L (136-145) Potassium Level 4.7mmol/L (3.5-5.1) Chloride Level 104mmol/L (98-107) Carbon Dioxide Level 29mmol/L (21-32) Anion Gap 9 (6-14) Blood Urea Nitrogen 30mg/dL (7-20) Creatinine 3.9mg/dL (0.6-1.0) Estimated GFR (Cockcroft-Gault) 13.7 Glucose Level 269mg/dL (70-99) Calcium Level 8.4mg/dL (8.5-10.1) Troponin I Quantitative 0.026ng/mL (0.000-0.055) ZV-Amj-T-Type Natriuretic Peptide > 34110ob/mL (0-124) VTE Prophylaxis Ordered VTE Prophylaxis Devices: No VTE Pharmacological Prophylaxi: Yes Assessment/Plan Assessment/Plan shortness of breath worsening hypoxia ESRD, on chronic, stable CHF, acute on chronic diastolic, with LE edema, will check echo weight loss, weakness, Alb 2.4 moderate/severe malnutrition, consult nutrition , supplements COPD, nebs, f/u and pulm consult anemia of CKD, macrocytic, check B12 and folate dm2, poor control, on SSI admit full code JOSE ONEIL MD Jul 12, 2016 17:32
[2016-07-12 17:46] LABS: ALBUMIN 2.4 g/dL (3.4-5.0); ALK PHOS 131 U/L (46-116); ALT (SGPT) 24 U/L (14-59); AST (SGOT) 33 U/L (15-37); DIRECT BILIRUBIN < 0.1 mg/dL (0.0-0.2); TOTAL BILIRUBIN 0.5 mg/dL (0.2-1.0); TOTAL PROTEIN 6.2 g/dL (6.4-8.2)
[2016-07-12] MEDS: IPRATRPIUM/ALBUTEROL 0.5/2.5MG 3 ML NEBU. NEB SCH (18:00)
--- NOTE | 2016-07-12 18:08 | ACF ---
Admission Forms Criteria HEART FAILURE: COMMON COMPLICATIONS Clinical Indications for Inpatient Care (Place 'X' for any and all applicable criteria): Ongoing inpatient care may be indicated for heart failure with ANY ONE of the following (1)(2)(3)(4)(5): [ ]I. Ongoing need for care for primary condition requiring frequent therapy adjustments because of changes in cardiac function (eg, drug dosage changes for drugs that are renally metabolized) [ ]II. New-onset heart failure [ ]III. Heart failure with decreased urine output not responsive to attempts to optimize volume status [ ]IV. Acute cardiac ischemia causing or associated with failure [X]V. Complications of heart failure, including ANY ONE of the following: [ ]a) Pericardial effusion [ ]b) Symptomatic pleural effusion [ ]c) O2 saturation <90% or PO2 < 60 mm Hg (8.0 kPa) on room air or require baseline supplemental O2 [ ]d) Tachypnea [X]e) Dyspnea [ ]f) Syncope [ ]g) Change in mental status [ ]h) Acute renal insufficiency that is severe (reduction of more than 50% in estimated glomerular filtration rate from baseline) or progressive reduction of more than 25% in estimated glomerular filtration rate from baseline, with creatinine continuing to rise) [ ]i) Hemodynamic instability [ ]j) Anasarca [ ]k) Clinically significant metabolic abnormalities due to heart failure (eg, new-onset metabolic acidosis) Extended stay beyond goal length of stay for primary condition may be needed until ALL of the following are present(1)(3): [ ]a) Stable and effective diuretic regimen established (or patient on stable dialysis regimen if in chronic renal failure) [ ]b) Breathing comfortably at rest [ ]c) Saturation of arterial oxygen greater than 90% or at acceptable baseline [ ]d) Pulmonary edema absent or improved [ ]e) Hemodynamic stability [ ]f) Volume status acceptable on oral medication [ ]g) Peripheral or sacral edema absent or improved [ ]h) Renal function stable and manageable at a lower level of care [ ]i) Complications (eg, pleural effusion) resolved or manageable at a lower level of care [ ]j) Patient or caregiver has received written discharge instructions or educational material addressing activity level, diet, discharge medications, follow-up appointment, weight monitoring, and what to do if symptoms worsen The original [email or web address] content created by [employer] has been revised. The portions of the content which have been revised are identified through the use of italic text or in bold, and [facility] has neither reviewed nor approved the modified material.All other unmodified content is copyright [facility]. Please see references footnoted in the original [facility] edition 2016 Admission Criteria Met?: Yes BERTIN SORTO Jul 12, 2016 18:08
[2016-07-12 19:25] VITALS: BP 167/65
[2016-07-12] MEDS: BUDESONIDE 0.5 MG/2 ML NEBU. NEB SCH (19:48)
[2016-07-12] MEDS ORDERED: IPRATRPIUM/ALBUTEROL 0.5/2.5MG 3 ML NEBU. NEB SCH (20:00)
[2016-07-12] MEDS ORDERED: FLUO20TA11 PO (20:49)
[2016-07-12] MEDS ORDERED: DONE10TA7 PO (20:49)
[2016-07-12] MEDS ORDERED: AMLO5TAB2 PO (20:49)
[2016-07-12] MEDS: INSULIN ASPART 300 UNITS/3 ML INSULN.PEN SQ SCH (21:00)
[2016-07-12] MEDS ORDERED: ALPRAZOLAM 0.5 MG TABLET. PO PRN (21:30)
[2016-07-12] MEDS ORDERED: IPRATRPIUM/ALBUTEROL 0.5/2.5MG 3 ML NEBU. NEB PRN (21:30)
[2016-07-12] MEDS ORDERED: NON FORMULARY ITEM (Albuterol Sulfate (Proair Hfa Inhaler) 2 PUFF) INH PRN (21:30)
[2016-07-12] MEDS ORDERED: ALBUTEROL SULFATE 2.5 MG/3 ML NEBU. NEB PRN (21:45)
[2016-07-12] MEDS: HEPARIN PF for SUB-Q USE 5,000 UNIT/0.5 ML VIAL. SQ SCH (22:08)
[2016-07-12] MEDS ORDERED: INSULIN ASPART 300 UNITS/3 ML INSULN.PEN SQ ONE (23:00)
[2016-07-12 23:25] VITALS: BP 166/67
[2016-07-13 03:25] VITALS: BP 169/73
[2016-07-13 07:00] VITALS: BP 124/61
[2016-07-13] MEDS: INSULIN ASPART 300 UNITS/3 ML INSULN.PEN SQ SCH ×4 (07:30→20:28)
[2016-07-13] MEDS: BUDESONIDE 0.5 MG/2 ML NEBU. NEB SCH ×2 (07:52→19:43)
[2016-07-13] MEDS: IPRATRPIUM/ALBUTEROL 0.5/2.5MG 3 ML NEBU. NEB SCH ×5 (07:53→22:00)
[2016-07-13] MEDS ORDERED: POTASSIUM CHLORIDE 20 MEQ TABLET.ER. PO SCH (08:00)
[2016-07-13 08:38] LABS: BASO % 0 % (0-3); EOS % 0 % (0-3); HEMATOCRIT 29.3 % (36.0-47.0); HEMOGLOBIN 9.2 g/dL (12.0-15.5); LYMPH # 0.4 x10^3/uL (1.0-4.8); LYMPH % 8 % (24-48); MEAN CORPUSCULAR HEMOGLOBIN 32 pg (25-35); MEAN CORPUSCULAR HGB CONC 32 g/dL (31-37); MEAN CORPUSCULAR VOLUME 101 fL (79-100); MONO % 11 % (0-9); NEUT % 81 % (31-73); PLATELET COUNT 324 x10^3/uL (140-400); RED BLOOD COUNT 2.89 x10^6/uL (3.50-5.40); RED CELL DISTRIBUTION WIDTH 16.4 % (11.5-14.5); WHITE BLOOD COUNT 5.1 x10^3/uL (4.0-11.0)
[2016-07-13] MEDS: POTASSIUM CHLORIDE 20 MEQ/15 ML ORAL LIQUID. PO SCH (08:38)
[2016-07-13] MEDS: LISINOPRIL 20 MG TABLET PO SCH (08:39)
[2016-07-13] MEDS: METOPROLOL TART IMMED RELEASE 50 MG TABLET. PO SCH (08:39)
[2016-07-13] MEDS: FOLIC/VIT B COMP W-C (RENAL) TABLET. PO SCH (08:39)
[2016-07-13] MEDS: ASPIRIN 325 MG TABLET PO SCH (08:39)
[2016-07-13] MEDS: METOLAZONE 2.5 MG TABLET PO SCH (08:39)
[2016-07-13] MEDS: CLOPIDOGREL BISULFATE 75 MG TABLET PO SCH (08:39)
[2016-07-13] MEDS: VITAMIN B12,B9,B6 COMPLEX 1 TABLET. PO SCH (08:39)
[2016-07-13] MEDS: AMLODIPINE BESYLATE 5 MG TABLET. PO SCH (08:40)
[2016-07-13] MEDS: ATORVASTATIN CALCIUM 10 MG TABLET. PO SCH (08:40)
[2016-07-13] MEDS: OXYBUTYNIN CHLORIDE 5 MG TABLET PO SCH ×3 (08:40→20:21)
[2016-07-13] MEDS: LINAGLIPTIN 5 MG TABLET PO SCH (08:40)
[2016-07-13 08:42] LABS: INR 1.1 (0.8-1.1); PROTHROMBIN TIME PATIENT 13.4 SEC (11.7-14.0)
[2016-07-13] MEDS: FLUOXETINE HCL 20 MG CAPSULE. PO SCH (08:42)
[2016-07-13] MEDS: HEPARIN PF for SUB-Q USE 5,000 UNIT/0.5 ML VIAL. SQ SCH ×2 (08:49→20:28)
--- NOTE | 2016-07-13 08:52 | PDOC2 ---
DARSHANA PEPE THERAPIST'S ASSISTANT 07/13/16 0852: CARDIAC CONSULT DATE OF CONSULT Date of Consult DATE: 07/13/16 TIME: 08:47 REASON FOR CONSULT Reason for Consult: CHF REFERRING PHYSICIAN Referring Physician: Dr. Shafer SOURCE Source: Chart review, Patient HISTORY OF PRESENT ILLNESS HISTORY OF PRESENT ILLNESS This is a 70 yo female who presented secondary to hypoxia. Patient was apparently at a routine office visit with Dr. Bowen when VS were checked and she was noted to be significantly hypoxic and was referred to the emergency room for further evaluation. Patient reports increased shortness of breath with minimal exertion over the last couple of weeks. Depending more on inhaler recently. Requiring 4LNC, routinely on 3L. Denies any SOA at rest. LE edema present x2 weeks. Denies any orthopnea, chest pain, palpitations, or dizziness. Has been compliant with dialysis. Not compliant with medications; forgets to take "occasionally". Encouraged use of pill organizer. PAST MEDICAL HISTORY Past Medical History Cardiovascular: CAD, CHF, HTN, Hyperlipidemia, Pulmonary hypertension, Other ( PVD s/p DOBBY LOOMS PEGGER/stent to left common iliac artery) Pulmonary: Asthma, COPD, PNA, PENNY CENTRAL NERVOUS SYSTEM: Other (no pertinent hx) GI: GERD Heme/Onc: Anemia NOS, Other (DVT) Renal/: Chronic renal failure on HD Endocrine: Diabetes Dermatology: No pertinent hx PAST SURGICAL HISTORY Past Surgical History Appendectomy, Other (left rotator cuff sx) FAMILY HISTORY Family History: Coronary Artery Disease, Diabetes, Hypertension SOCIAL HISTORY Social History Smoke: No ALCOHOL: none Drugs: None Lives: with Family CURRENT MEDICATIONS CURRENT MEDICATIONS Current Medications Medications (Trade) Dose Ordered Sig/Eric Route PRN Reason Start Time Stop Time Status Last Admin Dose Admin Albuterol/ Ipratropium (Duoneb) 3 ml 1X ONCE NEB 07/12/16 16:15 07/12/16 16:16 DC 07/12/16 16:03 Methylprednisolone Sodium Succinate (Solu-Medrol 125mg Vial) 125 mg 1X ONCE IV 07/12/16 16:00 07/12/16 16:05 DC 07/12/16 16:20 Albuterol/ Ipratropium (Duoneb) 3 ml RTQID NEB 07/12/16 20:00 07/12/16 21:29 DC 07/12/16 19:47 Albuterol/ Ipratropium (Duoneb) 3 ml Q4HRS W/A NEB 07/12/16 18:00 07/13/16 07:53 Heparin Sodium (Porcine) 5,000 unit Q12HR SQ 07/12/16 21:00 07/12/16 22:08 Budesonide (Pulmicort) 0.5 mg RTBID NEB 07/12/16 20:00 07/13/16 07:52 Insulin Aspart (Novolog) 10 units 1X ONCE SQ 07/12/16 23:00 07/12/16 23:02 DC 07/12/16 22:40 ALLERGIES ALLERGIES: Coded Allergies: Iodinated Contrast Media - Oral and (Verified Allergy, Intermediate, ) ROS Review of System 14 point ROS conducted with pertinent positives noted above in HPI PHYSICAL EXAM PHYSICAL EXAM General: Alert, Oriented X3, Cooperative, No acute distress HEENT: Atraumatic, Mucous membr. moist/pink Lungs: Other (diminished bases) Heart: Regular rate, Normal S1, Normal S2, Other (2/6 systolic murmur ) Abdomen: Soft Extremities: Other (1+ LLE edema, trace RLE edema, 1+ bilateral DP pulses ) Skin: No breakdown, No significant lesion Neuro: Normal speech, Sensation intact Psych/Mental Status: Mental status NL, Mood NL MUSCULOSKELETAL: Osteoarthritic changes both hands VITALS VITALS Vital Signs Date Time Temp Pulse Resp B/P Pulse Ox O2 Delivery O2 Flow Rate FiO2 07/13/16 07:53 100 Nasal Cannula 4.0 07/13/16 07:00 98.0 83 18 124/61 98.0 LABS Lab: Laboratory Tests Test 07/12/16 15:45 07/12/16 20:56 07/13/16 07:11 07/13/16 08:00 White Blood Count 9.8x10^3/uL (4.0-11.0) 5.1x10^3/uL (4.0-11.0) Red Blood Count 3.18x10^6/uL (3.50-5.40) 2.89x10^6/uL (3.50-5.40) Hemoglobin 10.2g/dL (12.0-15.5) 9.2g/dL (12.0-15.5) Hematocrit 32.6% (36.0-47.0) 29.3% (36.0-47.0) Mean Corpuscular Volume 103fL (79-100) 101fL (79-100) Mean Corpuscular Hemoglobin 32pg (25-35) 32pg (25-35) Mean Corpuscular Hemoglobin Concent 31g/dL (31-37) 32g/dL (31-37) Red Cell Distribution Width 16.8% (11.5-14.5) 16.4% (11.5-14.5) Platelet Count 352x10^3/uL (140-400) 324x10^3/uL (140-400) Neutrophils (%) (Auto) 73% (31-73) 81% (31-73) Lymphocytes (%) (Auto) 13% (24-48) 8% (24-48) Monocytes (%) (Auto) 13% (0-9) 11% (0-9) Eosinophils (%) (Auto) 1% (0-3) 0% (0-3) Basophils (%) (Auto) 1% (0-3) 0% (0-3) Neutrophils # (Auto) 7.1x10^3uL (1.8-7.7) 4.2x10^3uL (1.8-7.7) Lymphocytes # (Auto) 1.3x10^3/uL (1.0-4.8) 0.4x10^3/uL (1.0-4.8) Monocytes # (Auto) 1.3x10^3/uL (0.0-1.1) 0.6x10^3/uL (0.0-1.1) Eosinophils # (Auto) 0.1x10^3/uL (0.0-0.7) 0.0x10^3/uL (0.0-0.7) Basophils # (Auto) 0.0x10^3/uL (0.0-0.2) 0.0x10^3/uL (0.0-0.2) D-Dimer (Rhonda) 1.42ug/mlFEU (0.00-0.50) Sodium Level 142mmol/L (136-145) Potassium Level 4.7mmol/L (3.5-5.1) Chloride Level 104mmol/L (98-107) Carbon Dioxide Level 29mmol/L (21-32) Anion Gap 9 (6-14) Blood Urea Nitrogen 30mg/dL (7-20) Creatinine 3.9mg/dL (0.6-1.0) Estimated GFR (Cockcroft-Gault) 13.7 Glucose Level 269mg/dL (70-99) Calcium Level 8.4mg/dL (8.5-10.1) Total Bilirubin 0.5mg/dL (0.2-1.0) Direct Bilirubin < 0.1mg/dL (0.0-0.2) Aspartate Amino Transf (AST/SGOT) 33U/L (15-37) Alanine Aminotransferase (ALT/SGPT) 24U/L (14-59) Alkaline Phosphatase 131U/L (46-116) Troponin I Quantitative 0.026ng/mL (0.000-0.055) KO-Elr-T-Type Natriuretic Peptide > 72355fk/mL (0-124) Total Protein 6.2g/dL (6.4-8.2) Albumin 2.4g/dL (3.4-5.0) Glucose (Fingerstick) 356mg/dL (70-99) 381mg/dL (70-99) Prothrombin Time 13.4SEC (11.7-14.0) Prothromb Time International Ratio 1.1 (0.8-1.1) ECHOCARDIOGRAM ECHOCARDIOGRAM <Conclusion> Left ventricle systolic function is normal. The Ejection Fraction is estimated at 55%. There is normal LV segmental wall motion. Doppler and Color Flow revealed mild to moderate tricuspid regurgitation. The PA pressure was estimated at 41 mmHg. There is no evidence of significant pericardial effusion. DATE: 01/21/16 1320 <Conclusion> The left ventricular systolic function is normal. The Ejection Fraction is 55%. There is normal LV segmental wall motion. Transmitral Doppler flow pattern is Grade I-abnormal relaxation pattern. The left atrium is moderately dilated. Mild to moderate mitral regurgitation. Moderate tricuspid regurgitation. The pulmonary artery systolic pressure is estimated at 87 mmHg. There is severe pulmonary hypertension. There is no evidence of significant pericardial effusion. DATE: 05/17/16 1622 STRESS TEST STRESS TEST Conclusion 1. No EKG evidence of stress induced ischemic changes. 2. Small reversible inferior wall defect as noted above. 3. Low normal EF with stress. EF 58% 4. Low to moderate risk study. DATE: 06/02/15 1152 HEART CATH HEART CATH Conclusion 1. Severe single-vessel coronary artery disease. 80% stenosis involving the mid segment of the right coronary artery. The previously placed stent in the distal segment of the right coronary artery was widely patent. 2. Successful PCI/drug eluting stent placement to the right coronary artery. Recommendations 1. Aspirin 325 mg daily 2. Plavix 75 mg daily for preferably one year 3. Cardiovascular risk factor modification DATE: 01/24/14 1035 ASSESSMENT/PLAN ASSESSMENT/PLAN 1. Acute on chronic diastolic heart failure BNP >35,000 CXR with small bilateral pleural effusion med non-compliance. Recent echo ~ LVEF 55% with grade-I diastolic dysfunction and severe pulm HTN fluid offloading in HD per nephrology 2. Acute on chronic hypoxic respiratory failure secondary to combination of a/c diastolic HF and AE COPD improved management per pul 3. CAD s/p PCI/MALLORIE to RCA no anginal symptoms MPI 05/26 with no evidence of ischemia continue secondary prevention 4. PVD s/p DOBBY LOOMS PEGGER/stent placement to left common iliac artery. stable. no claudication symptoms 5. Hypertension controlled with meds 6. Hyperlipidemia LDL 86 01/2016 statin therapy 7. ESRD on HD fluid offloading in HD per nephrology 8. PENNY non-compliant with CPAP 9. DM uncontrolled per PCP 10. 4.9 cm infrarenal aortic aneurysm unchanged from previous study outpatient f/u with Dr. Gomez scheduled Problems: FRANK REED MD 07/13/16 1633: CARDIAC CONSULT ALLERGIES ALLERGIES: Coded Allergies: Iodinated Contrast Media - Oral and (Verified Allergy, Intermediate, ) ASSESSMENT/PLAN ASSESSMENT/PLAN Patient seen and examined. Agree with BAND RIPSAW OPERATOR's assessment and plan. Acute resp failure probably secondary to combination of acute COPD exac and acute on chronic diast HF. Continue fluid removal with HD per nephrology team. CAD and PAD status stable. Continue current medical regimen. Thank you for your consultation. Problems: DARSHANA PEPE APRN Jul 13, 2016 08:52 FRANK REED MD Jul 13, 2016 16:33
[2016-07-13 08:53] LABS: CREATININE 4.7 mg/dL (0.6-1.0); GFR 11.1; POTASSIUM 5.1 mmol/L (3.5-5.1)
[2016-07-13] MEDS: PANTOPRAZOLE 40 MG TABLET.DR. PO SCH ×2 (09:00→16:30)
[2016-07-13] MEDS ORDERED: CALCIUM CARBONATE 500 MG TAB.CHEW PO PRN (09:00)
[2016-07-13] MEDS ORDERED: INSULIN ASPART 300 UNITS/3 ML INSULN.PEN SQ ONE (09:15)
[2016-07-13] MEDS ORDERED: INSULIN ASPART 300 UNITS/3 ML INSULN.PEN SQ SCH (11:30)
--- NOTE | 2016-07-13 11:38 | PDOC ---
Provider Note Provider Note dictated SHEILA ZHENG MD Jul 13, 2016 11:38
[2016-07-13 11:46] LABS: FOLATE 5.83 ng/ml (3.2-20.0)
[2016-07-13] MEDS ORDERED: IV NORMAL SALINE 1000ML BAG 1,000 ML IV PRN ×2 (12:32)
--- NOTE | 2016-07-13 12:32 | CONS ---
DATE OF CONSULTATION: ATTENDING PHYSICIAN: Dr. Kenzie Shafer. REASON FOR CONSULTATION: Dyspnea, hypoxia. HISTORY OF PRESENT ILLNESS: The patient is a 70-year-old female, who has a history of oxygen-dependent chronic obstructive airway disease. Normally she uses 3-4 liters of oxygen. She was seen in the office yesterday and was noted to have low oxygen saturations. Reportedly, she said it was in the 70s while on 3 liters of oxygen. She had some mild increased shortness of breath. She also had some lower extremity edema. The patient has only mild cough. No fever, no chills. No headaches. No nausea, vomiting or diarrhea. She stated that she has been using more frequent rescue inhaler recently. She was hospitalized in the Emergency Room, a chest x-ray was reviewed and shows small bilateral pleural effusions and some basilar atelectasis, cardiomegaly and possible mild congestive heart failure. She has a history of diastolic dysfunction. Consultation requested for further evaluation and management. She is now requiring 4 liters of oxygen. PAST MEDICAL HISTORY: History of coronary artery disease, history of diastolic congestive heart failure, history of hypertension, hyperlipidemia, history of COPD, chronic respiratory failure, diverticulosis, anemia, renal insufficiency and diabetes. PAST SURGICAL HISTORY: Appendectomy and arthroscopy. FAMILY HISTORY: Coronary artery disease, diabetes and hypertension. ALLERGIES: IODINE. MEDICATIONS: Reviewed as listed in the MRAD, including bronchodilators. REVIEW OF SYSTEMS: Twelve-point system obtained. Pertinent positives discussed in my history of present illness, otherwise noncontributory. All systems that were negative were reviewed as well. SOCIAL HISTORY: She smoked for 40 years before quitting 7 years ago. PHYSICAL EXAMINATION: VITAL SIGNS: Blood pressure is currently stable, but it was 166/67 on admission. Afebrile, pulse ox 100% on 4 liters. NECK: Supple. LUNGS: With diminished breath sounds. CARDIOVASCULAR: Regular rate and rhythm. ABDOMEN: Soft, obese. EXTREMITIES: With bilateral pitting edema. LABORATORY DATA: Reviewed. White cell count 5.1, hemoglobin 9.2, platelets are 324. BUN is 37, creatinine 4.7. BNP is 35,000. IMPRESSION: 1. Pslny-an-rxiolbn hypoxic respiratory failure, most likely related to [id number] diastolic heart failure. 2. History of normal ejection fraction with diastolic dysfunction grade 1. 3. History of end-stage renal disease, on hemodialysis. 4. History of chronic obstructive pulmonary disease with chronic respiratory failure on 3 liters at home. RECOMMENDATIONS: 1. Consider hemodialysis with ultrafiltration. 2. Follow up chest x-ray. 3. Follow renal recommendations. 4. Follow cardiology recommendations. 5. Optimization of blood pressure. 6. Continue present bronchodilators. 7. Wean FiO2 to keep saturations 92% and above. SHEILA ZHENG MD DR: AJITH/courtney JOB#: [id number] / [id number] KENZIE Gamez MD MTDD
[2016-07-13] MEDS ORDERED: ACETAMINOPHEN 500 MG TABLET PO PRN (12:45)
[2016-07-13] MEDS ORDERED: DIALYSIS PATIENT. MC PRN (12:45)
[2016-07-13] MEDS ORDERED: ALBUMIN HUMAN 25% 200 ML IV PRN (12:45)
[2016-07-13] MEDS ORDERED: DIPHENHYDRAMINE 50 MG/ML VIAL. IV PRN ×2 (12:45)
--- NOTE | 2016-07-13 13:17 | PDOC2 ---
CONSULT Date of Consult Date of Consult DATE: 07/13/16 TIME: 13:15 Reason for Consult Reason for Consult: ESRD Referring Physician Referring Physician: Dr Cavazos Identification/Chief Complaint Chief Complaint SOB Problems: Source Source: Chart review, Patient History of Present Illness Reason for Visit: as dictated Past Medical History Cardiovascular: CAD, CHF, HTN, Hyperlipidemia, Other Pulmonary: Asthma, COPD, Other CENTRAL NERVOUS SYSTEM: Other GI: Diverticulosis Heme/Onc: Anemia NOS Psych: Anxiety Rheumatologic: No pertinent hx Infectious disease: No pertinent hx Renal/: Chronic renal failure Endocrine: Diabetes Past Surgical History Past Surgical History: Appendectomy, Arthroscopy, Other Family History Family History: Coronary Artery Disease, Diabetes, Hypertension Social History No ALCOHOL: none Drugs: None Lives: with Family Current Problem List Problem List Problems Medical Problems: (1) CHF exacerbation Status: Acute (2) COPD (chronic obstructive pulmonary disease) Status: Acute Current Medications Current Medications Current Medications Albuterol/ Ipratropium (Duoneb) 3 ml 1X ONCE NEB Last administered on 16:03; Start 07/12/16 at 16:15; Stop 07/12/16 at 16:16; Status DC Methylprednisolone Sodium Succinate (Solu-Medrol 125mg Vial) 125 mg 1X ONCE IV Last administered on 07/12/16 16:20; Start 07/12/16 at 16:00; Stop 07/12/16 at 16:05; Status DC Ondansetron HCl (Zofran) 4 mg PRN Q8HRS PRN IV NAUSEA/VOMITING; Start 07/12/16 at 17:00; Stop 07/13/16 at 16:59 Acetaminophen (Tylenol) 650 mg PRN Q4HRS PRN PO FEVER; Start 07/12/16 at 17:00; Stop 07/13/16 at 16:59 Albuterol/ Ipratropium (Duoneb) 3 ml RTQID NEB Last administered on 07/12/16 19 :47; Start 07/12/16 at 20:00; Stop 07/12/16 at 21:29; Status DC Albuterol/ Ipratropium (Duoneb) 3 ml Q4HRS W/A NEB Last administered on 12:05; Start 07/12/16 at 18:00 Heparin Sodium (Porcine) 5,000 unit Q12HR SQ Last administered on 07/13/16 08: 49; Start 07/12/16 at 21:00 Budesonide (Pulmicort) 0.5 mg RTBID NEB Last administered on 07/13/16 07:52; Start 07/12/16 at 20:00 Insulin Aspart (Novolog) 0-7 UNITS QIDACHS SQ ; Start 07/12/16 at 21:00 Dextrose (Dextrose 50%-Water Syringe) 12.5 gm PRN Q15MIN PRN IV SEE COMMENTS; Start 07/12/16 at 17:30 Alprazolam (Xanax) 0.5 mg PRN Q8HRS PRN PO ANXIETY / AGITATION Last administered on 07/13/16 10:57; Start 07/12/16 at 21:30 Amlodipine Besylate (Norvasc) 5 mg DAILY PO Last administered on 07/13/16 08:40 ; Start 07/13/16 at 09:00 Aspirin (Hung Aspirin) 325 mg DAILY PO Last administered on 07/13/16 08:39; Start 07/13/16 at 09:00 Atorvastatin Calcium (Lipitor) 10 mg DAILY PO Last administered on 07/13/16 08: 40; Start 07/13/16 at 09:00 Clopidogrel Bisulfate (Plavix) 75 mg DAILY PO Last administered on 07/13/16 08: 39; Start 07/13/16 at 09:00 Vitamin B Complex/ Vitamin C (Marina-Jayme) 1 tab DAILY PO Last administered on 08:39; Start 07/13/16 at 09:00 Linagliptin (Tradjenta) 5 mg DAILY PO Last administered on 07/13/16 08:40; Start 07/13/16 at 09:00 Lisinopril (Prinivil) 20 mg DAILY PO Last administered on 07/13/16 08:39; Start 07/13/16 at 09:00 Metolazone (Zaroxolyn) 2.5 mg DAILY PO Last administered on 07/13/16 08:39; Start 07/13/16 at 09:00 Metoprolol Tartrate (Lopressor) 50 mg DAILY PO Last administered on 07/13/16 08 :39; Start 07/13/16 at 09:00 Potassium Chloride (Klor-Con) 20 meq DAILYWBKFT PO ; Start 07/13/16 at 08:00; Stop 07/13/16 at 08:00; Status DC Non-Formulary Medication 2 puff PRN Q6HRS PRN INH SHORTNESS OF BREATH; Start at 21:30; Status UNV Fluoxetine HCl (Prozac) 20 mg DAILY PO Last administered on 07/13/16 08:42; Start 07/13/16 at 09:00 Insulin Detemir (Levemir) 20 units QHS SQ ; Start 07/13/16 at 21:00 Oxybutynin Chloride (Ditropan) 5 mg IAR004 PO Last administered on 07/13/16 08: 40; Start 07/13/16 at 09:00 Albuterol Sulfate (Ventolin Neb Soln) 2.5 mg PRN Q4HRS PRN NEB WHEEZES; Start 07/12/16 at 21:45 Albuterol/ Ipratropium (Duoneb) 3 ml RTQID PRN NEB dyspnea; Start 07/12/16 at 21 :30; Status UNV Potassium Chloride (KCl Oral Soln) 20 meq DAILY PO Last administered on 08:38; Start 07/13/16 at 09:00 Insulin Aspart (Novolog) 10 units 1X ONCE SQ Last administered on 07/12/16 22: 40; Start 07/12/16 at 23:00; Stop 07/12/16 at 23:02; Status DC Vitamin B Complex (Folbic Tablet) 1 tab DAILY PO Last administered on 07/13/16 08:39; Start 07/13/16 at 09:00 Calcium Carbonate/ Glycine (Tums) 500 mg PRN TID PRN PO INDIGESTION; Start 07/13 at 09:00 Pantoprazole Sodium (Protonix) 40 mg BIDAC PO ; Start 07/13/16 at 09:00 Insulin Aspart (Novolog) 8 units TIDAC SQ ; Start 07/13/16 at 11:30 Insulin Aspart 20 units 20 units 1X ONCE SQ Last administered on 07/13/16 09: 01; Start 07/13/16 at 09:15; Stop 07/13/16 at 09:16; Status DC Sodium Chloride 1,000 ml @ 1,000 mls/hr Q1H PRN IV hypotension; Start 07/13/16 at 12:32; Stop 07/13/16 at 18:31 Albumin Human (Albuminar) 200 ml @ 200 mls/hr 1X PRN PRN IV Hypotension; Start 07/13/16 at 12:45; Stop 07/13/16 at 18:44 Acetaminophen (Tylenol) 500 mg 1X PRN PRN PO MILD PAIN / TEMP; Start 07/13/16 at 12:45; Stop 07/14/16 at 12:44 Diphenhydramine HCl (Benadryl) 25 mg 1X PRN PRN IV ITCHING; Start 07/13/16 at 12 :45; Stop 07/14/16 at 12:44 Diphenhydramine HCl 25 mg 25 mg 1X PRN PRN IV ITCHING; Start 07/13/16 at 12:45; Stop 07/14/16 at 12:44 Sodium Chloride (Iv Sodium Chloride 0.9% 1000ml Bag) 1,000 ml @ 400 mls/hr Q2H30M PRN IV PATENCY; Start 07/13/16 at 12:32; Stop 07/14/16 at 00:31 Info (PHARMACY MONITORING -- do not chart) 1 each PRN DAILY PRN MC SEE COMMENTS ; Start 07/13/16 at 12:45 Active Scripts Active Lisinopril 20 Mg Tablet 20 Tab PO DAILY Klor-Con M20 (Potassium Chloride) 20 Meq Tab.er.prt 20 Meq PO DAILYWBKFT [Albuterol Sulfate] 2.5 MG/3 ML Nebu 2.5 Mg NEB PRN Q4HRS PRN Tradjenta (Linagliptin) 5 Mg Tablet 5 Mg PO DAILY Reported Fluoxetine Hcl 20 Mg Tablet 1 Tab PO DAILY Amlodipine Besylate 5 Mg Tablet 5 Mg PO DAILY Proair Hfa Inhaler (Albuterol Sulfate) 8.5 Gm Hfa.aer.ad 2 Puff INH PRN Q6HRS PRN Lantus Solostar (Insulin Glargine,Hum.rec.anlog) 100 Unit/1 Ml Insuln.pen 20 Unit SQ QHS Marina-Jayme Tablet (Folic Acid/Vitamin B Comp W-C) 0.8 Mg Tablet 0.8 Mg PO Metolazone 2.5 Mg Tablet 2.5 Mg PO DAILY Metoprolol Tartrate 50 Mg Tablet 1 Tab PO DAILY Atorvastatin Calcium 20 Mg Tablet 10 Mg PO DAILY Aspirin 325 Mg Tablet 1 Tab PO DAILY Tolterodine Tartrate 2 Mg Tablet 4 Mg PO DAILY Plavix (Clopidogrel Bisulfate) 75 Mg Tablet 75 Mg PO DAILY Allergies Allergies: Coded Allergies: Iodinated Contrast Media - Oral and (Verified Allergy, Intermediate, ) ROS Review of System GEN: subj Fevers ? Chills EYES: no new Visual Complaints ENT: no EN Drainage no Hearing deficiets CVS: no Orthopnea no CP RESP: + SOB + TAYLOR + cough GI: + Nausea + Vomiting : no Dysuria no Urgency HEME: no easy bruising no Palp Ly Nodes NEURO no Focal Weakness no Sz PSYCH: no Suicidal Ideation no Depression SKIN: no Rashes ENDO: no Polyuria or Polydipsia no Hot/Cold Intolerance MU SK: ch Arthraigia no Myalgia Physical Exam Physical Exam Physical Exam Physical Exam General Appearance: Awake Alert Oriented x 3 In no Distress Eyes: VIsion Unchanged Conjunctiva Normal EN: No EN Drainage Mucous Memb. moist Neck: min JVD + JVP Supple no Thyromegaly CVS: S1 S2 + Murmur No Gallop No Rub tr Edema Resp: few basal Rales occ Rhonchi no Acc. Muscle use GI: BAS +ve NO Bruit Non Tender Non Distended : no CVA tenderness; no Suprapubic Tenderness SKIN: no Rashes Breast Exam deferred Mu.Sk: Adequate ROM no Muscle Atrophy Heme: Unable to palpate Obvious LAD no palp Splenomegaly NEURO: Good Strength and Tone Cranial Nerves II - XII grossly intact Psych: not Depressed no Active hallucination Vital Signs Vital Signs Date Time Temp Pulse Resp B/P Pulse Ox O2 Delivery O2 Flow Rate FiO2 07/13/16 12:05 Nasal Cannula 4.0 07/13/16 08:40 83 124/61 07/13/16 07:53 100 07/13/16 07:00 98.0 18 98.0 Assessment & Plan ESRD: See non HD Zena well so far. Vitals on HD: 119/62 76 Dialysis as below F 180 NR 3.5 Hrs 2 K 2.5 Ca 140 Na 40 HC03 Qb 350 + Qd 500+ Heparin 0 Units Uf 3-5 Kgs or to dry weight as tolerated (wts are discrepant) May give 25-50 gms of 25% Albumin if needed to maintain Hemodynamic stability Treatment plan reviewed and discussed with linen room supervisor Anemia: Epogen as ordered; Transfuse with next HD as needed. HTN: Current BP meds reviewed. See orders for changes. SOb - ? fl overload vs COPD Exac - will rechallenge D/wt Bone & Mineral: follow phos and alter binder regimen based on PO itnake and trend. AAA - ? Vascular surgery eval in past noted Discussed Plan of Care and prognosis etc. at length withpt Labs Labs Laboratory Tests Test 07/12/16 15:45 07/12/16 20:56 07/13/16 07:11 07/13/16 08:00 White Blood Count 9.8x10^3/uL (4.0-11.0) 5.1x10^3/uL (4.0-11.0) Red Blood Count 3.18x10^6/uL (3.50-5.40) 2.89x10^6/uL (3.50-5.40) Hemoglobin 10.2g/dL (12.0-15.5) 9.2g/dL (12.0-15.5) Hematocrit 32.6% (36.0-47.0) 29.3% (36.0-47.0) Mean Corpuscular Volume 103fL (79-100) 101fL (79-100) Mean Corpuscular Hemoglobin 32pg (25-35) 32pg (25-35) Mean Corpuscular Hemoglobin Concent 31g/dL (31-37) 32g/dL (31-37) Red Cell Distribution Width 16.8% (11.5-14.5) 16.4% (11.5-14.5) Platelet Count 352x10^3/uL (140-400) 324x10^3/uL (140-400) Neutrophils (%) (Auto) 73% (31-73) 81% (31-73) Lymphocytes (%) (Auto) 13% (24-48) 8% (24-48) Monocytes (%) (Auto) 13% (0-9) 11% (0-9) Eosinophils (%) (Auto) 1% (0-3) 0% (0-3) Basophils (%) (Auto) 1% (0-3) 0% (0-3) Neutrophils # (Auto) 7.1x10^3uL (1.8-7.7) 4.2x10^3uL (1.8-7.7) Lymphocytes # (Auto) 1.3x10^3/uL (1.0-4.8) 0.4x10^3/uL (1.0-4.8) Monocytes # (Auto) 1.3x10^3/uL (0.0-1.1) 0.6x10^3/uL (0.0-1.1) Eosinophils # (Auto) 0.1x10^3/uL (0.0-0.7) 0.0x10^3/uL (0.0-0.7) Basophils # (Auto) 0.0x10^3/uL (0.0-0.2) 0.0x10^3/uL (0.0-0.2) D-Dimer (Rhonda) 1.42ug/mlFEU (0.00-0.50) Sodium Level 142mmol/L (136-145) 141mmol/L (136-145) Potassium Level 4.7mmol/L (3.5-5.1) 5.1mmol/L (3.5-5.1) Chloride Level 104mmol/L (98-107) 105mmol/L (98-107) Carbon Dioxide Level 29mmol/L (21-32) 30mmol/L (21-32) Anion Gap 9 (6-14) 6 (6-14) Blood Urea Nitrogen 30mg/dL (7-20) 37mg/dL (7-20) Creatinine 3.9mg/dL (0.6-1.0) 4.7mg/dL (0.6-1.0) Estimated GFR (Cockcroft-Gault) 13.7 11.1 Glucose Level 269mg/dL (70-99) 387mg/dL (70-99) Calcium Level 8.4mg/dL (8.5-10.1) 8.0mg/dL (8.5-10.1) Total Bilirubin 0.5mg/dL (0.2-1.0) Direct Bilirubin < 0.1mg/dL (0.0-0.2) Aspartate Amino Transf (AST/SGOT) 33U/L (15-37) Alanine Aminotransferase (ALT/SGPT) 24U/L (14-59) Alkaline Phosphatase 131U/L (46-116) Troponin I Quantitative 0.026ng/mL (0.000-0.055) KB-Ird-V-Type Natriuretic Peptide > 99450xe/mL (0-124) Total Protein 6.2g/dL (6.4-8.2) Albumin 2.4g/dL (3.4-5.0) Glucose (Fingerstick) 356mg/dL (70-99) 381mg/dL (70-99) Prothrombin Time 13.4SEC (11.7-14.0) Prothromb Time International Ratio 1.1 (0.8-1.1) Vitamin B12 Level 491pg/mL (247-911) Serum Folate 5.83ng/ml (3.2-20.0) Test 07/13/16 12:22 Glucose (Fingerstick) 82mg/dL (70-99) Laboratory Tests Test 07/12/16 15:45 07/12/16 20:56 07/13/16 07:11 07/13/16 08:00 White Blood Count 9.8x10^3/uL (4.0-11.0) 5.1x10^3/uL (4.0-11.0) Red Blood Count 3.18x10^6/uL (3.50-5.40) 2.89x10^6/uL (3.50-5.40) Hemoglobin 10.2g/dL (12.0-15.5) 9.2g/dL (12.0-15.5) Hematocrit 32.6% (36.0-47.0) 29.3% (36.0-47.0) Mean Corpuscular Volume 103fL (79-100) 101fL (79-100) Mean Corpuscular Hemoglobin 32pg (25-35) 32pg (25-35) Mean Corpuscular Hemoglobin Concent 31g/dL (31-37) 32g/dL (31-37) Red Cell Distribution Width 16.8% (11.5-14.5) 16.4% (11.5-14.5) Platelet Count 352x10^3/uL (140-400) 324x10^3/uL (140-400) Neutrophils (%) (Auto) 73% (31-73) 81% (31-73) Lymphocytes (%) (Auto) 13% (24-48) 8% (24-48) Monocytes (%) (Auto) 13% (0-9) 11% (0-9) Eosinophils (%) (Auto) 1% (0-3) 0% (0-3) Basophils (%) (Auto) 1% (0-3) 0% (0-3) Neutrophils # (Auto) 7.1x10^3uL (1.8-7.7) 4.2x10^3uL (1.8-7.7) Lymphocytes # (Auto) 1.3x10^3/uL (1.0-4.8) 0.4x10^3/uL (1.0-4.8) Monocytes # (Auto) 1.3x10^3/uL (0.0-1.1) 0.6x10^3/uL (0.0-1.1) Eosinophils # (Auto) 0.1x10^3/uL (0.0-0.7) 0.0x10^3/uL (0.0-0.7) Basophils # (Auto) 0.0x10^3/uL (0.0-0.2) 0.0x10^3/uL (0.0-0.2) D-Dimer (Rhonda) 1.42ug/mlFEU (0.00-0.50) Sodium Level 142mmol/L (136-145) 141mmol/L (136-145) Potassium Level 4.7mmol/L (3.5-5.1) 5.1mmol/L (3.5-5.1) Chloride Level 104mmol/L (98-107) 105mmol/L (98-107) Carbon Dioxide Level 29mmol/L (21-32) 30mmol/L (21-32) Anion Gap 9 (6-14) 6 (6-14) Blood Urea Nitrogen 30mg/dL (7-20) 37mg/dL (7-20) Creatinine 3.9mg/dL (0.6-1.0) 4.7mg/dL (0.6-1.0) Estimated GFR (Cockcroft-Gault) 13.7 11.1 Glucose Level 269mg/dL (70-99) 387mg/dL (70-99) Calcium Level 8.4mg/dL (8.5-10.1) 8.0mg/dL (8.5-10.1) Total Bilirubin 0.5mg/dL (0.2-1.0) Direct Bilirubin < 0.1mg/dL (0.0-0.2) Aspartate Amino Transf (AST/SGOT) 33U/L (15-37) Alanine Aminotransferase (ALT/SGPT) 24U/L (14-59) Alkaline Phosphatase 131U/L (46-116) Troponin I Quantitative 0.026ng/mL (0.000-0.055) QI-Mft-Y-Type Natriuretic Peptide > 22576gc/mL (0-124) Total Protein 6.2g/dL (6.4-8.2) Albumin 2.4g/dL (3.4-5.0) Glucose (Fingerstick) 356mg/dL (70-99) 381mg/dL (70-99) Prothrombin Time 13.4SEC (11.7-14.0) Prothromb Time International Ratio 1.1 (0.8-1.1) Vitamin B12 Level 491pg/mL (247-911) Serum Folate 5.83ng/ml (3.2-20.0) Test 07/13/16 12:22 Glucose (Fingerstick) 82mg/dL (70-99) Images Images 1. Cardiomegaly. 2. Small bilateral pleural effusions with mild underlying basilar atelectasis. 3. No significant change since 06/16/2016. WENDI SUAREZ MD Jul 13, 2016 13:17
[2016-07-13] MEDS ORDERED: LIDOCAINE 1% PF 2 ML VIAL. ID STA (13:21)
[2016-07-13] MEDS ORDERED: LIDOCAINE 1% PF 2 ML VIAL. ONE (13:28)
--- NOTE | 2016-07-13 15:16 | EKG ---
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
--- NOTE | 2016-07-13 15:27 | RAD ---
Ventilation/perfusion lung scan, 07/13/2016: History: Dyspnea, rule out PE The ventilation study was performed utilizing 21 mCi of xenon-133. There is decreased activity in the left lower chest due to the enlarged heart. There is patchy retention of activity in the lungs on the washout phase of the ventilation study. The perfusion images were obtained following IV injection of 6.6 mCi of technetium 99m MAA. A similar pattern of activity is present. There is mildly decreased activity in the right middle lobe region on both the ventilation and perfusion images images. A similar finding was present on the 06/01/2016 study. IMPRESSION: 1. Abnormal ventilation study suggesting obstructive pulmonary disease. 2. Low probability of pulmonary emboli.
--- NOTE | 2016-07-13 15:29 | PDOC ---
PROGRESS NOTES Chief Complaint Chief Complaint 1. Vuszs-hv-zibqxjq DIAstolic congestive heart failure. 2. ESRD on HD MWF 3. Xeufc-aw-opbdgba respiratory failure. Hypoxia 4. COPD 5. Diabetes mellitus 6. Hypertension urgency 7. Peripheral artery disease. 8. Hyperlipidemia. 9. Asthma 10. Diverticulosis 11. chronic anemia 2/2 CHF, ESRD 12. Anxiety 13. abd aneurysm 4cm plan: 1. fu with pulm, renal. card 2. VQ scan pending 3. cont HD 4. pt always forgot to take her diuretics, although she has about 500cc urine daily only also, supposed to use CPAP at home, but not using it for now since nobody sent it to her. cont home meds [facility] in 1-2 ds. History of Present Illness History of Present Illness COMES here every month for sob home o2 4l, NOW feels ok on 4l ON hd not taking diuretics daily not using CPAP. ok for 3 days after i dced her 06/19, then sob for 3 weeks Vitals Vitals Vital Signs Date Time Temp Pulse Resp B/P Pulse Ox O2 Delivery O2 Flow Rate FiO2 07/13/16 12:05 Nasal Cannula 4.0 07/13/16 08:40 83 124/61 07/13/16 07:53 100 07/13/16 07:00 98.0 18 98.0 Physical Exam General: Alert, Oriented X3, Cooperative, No acute distress, mild distress Heart: Regular rate, Normal S1 Lungs: Other (BL Deminished bs) Abdomen: Normal bowel sounds, Soft, No tenderness Extremities: No clubbing, Other (2+ pretibial edema) Skin: No rashes, No significant lesion Labs LABS Laboratory Tests Test 07/12/16 15:45 07/12/16 20:56 07/13/16 07:11 07/13/16 08:00 White Blood Count 9.8x10^3/uL (4.0-11.0) 5.1x10^3/uL (4.0-11.0) Red Blood Count 3.18x10^6/uL (3.50-5.40) 2.89x10^6/uL (3.50-5.40) Hemoglobin 10.2g/dL (12.0-15.5) 9.2g/dL (12.0-15.5) Hematocrit 32.6% (36.0-47.0) 29.3% (36.0-47.0) Mean Corpuscular Volume 103fL (79-100) 101fL (79-100) Mean Corpuscular Hemoglobin 32pg (25-35) 32pg (25-35) Mean Corpuscular Hemoglobin Concent 31g/dL (31-37) 32g/dL (31-37) Red Cell Distribution Width 16.8% (11.5-14.5) 16.4% (11.5-14.5) Platelet Count 352x10^3/uL (140-400) 324x10^3/uL (140-400) Neutrophils (%) (Auto) 73% (31-73) 81% (31-73) Lymphocytes (%) (Auto) 13% (24-48) 8% (24-48) Monocytes (%) (Auto) 13% (0-9) 11% (0-9) Eosinophils (%) (Auto) 1% (0-3) 0% (0-3) Basophils (%) (Auto) 1% (0-3) 0% (0-3) Neutrophils # (Auto) 7.1x10^3uL (1.8-7.7) 4.2x10^3uL (1.8-7.7) Lymphocytes # (Auto) 1.3x10^3/uL (1.0-4.8) 0.4x10^3/uL (1.0-4.8) Monocytes # (Auto) 1.3x10^3/uL (0.0-1.1) 0.6x10^3/uL (0.0-1.1) Eosinophils # (Auto) 0.1x10^3/uL (0.0-0.7) 0.0x10^3/uL (0.0-0.7) Basophils # (Auto) 0.0x10^3/uL (0.0-0.2) 0.0x10^3/uL (0.0-0.2) D-Dimer (Rhonda) 1.42ug/mlFEU (0.00-0.50) Sodium Level 142mmol/L (136-145) 141mmol/L (136-145) Potassium Level 4.7mmol/L (3.5-5.1) 5.1mmol/L (3.5-5.1) Chloride Level 104mmol/L (98-107) 105mmol/L (98-107) Carbon Dioxide Level 29mmol/L (21-32) 30mmol/L (21-32) Anion Gap 9 (6-14) 6 (6-14) Blood Urea Nitrogen 30mg/dL (7-20) 37mg/dL (7-20) Creatinine 3.9mg/dL (0.6-1.0) 4.7mg/dL (0.6-1.0) Estimated GFR (Cockcroft-Gault) 13.7 11.1 Glucose Level 269mg/dL (70-99) 387mg/dL (70-99) Calcium Level 8.4mg/dL (8.5-10.1) 8.0mg/dL (8.5-10.1) Total Bilirubin 0.5mg/dL (0.2-1.0) Direct Bilirubin < 0.1mg/dL (0.0-0.2) Aspartate Amino Transf (AST/SGOT) 33U/L (15-37) Alanine Aminotransferase (ALT/SGPT) 24U/L (14-59) Alkaline Phosphatase 131U/L (46-116) Troponin I Quantitative 0.026ng/mL (0.000-0.055) CW-Ieg-A-Type Natriuretic Peptide > 07162fj/mL (0-124) Total Protein 6.2g/dL (6.4-8.2) Albumin 2.4g/dL (3.4-5.0) Glucose (Fingerstick) 356mg/dL (70-99) 381mg/dL (70-99) Prothrombin Time 13.4SEC (11.7-14.0) Prothromb Time International Ratio 1.1 (0.8-1.1) Prealbumin 21mg/dL (9-32) Vitamin B12 Level 491pg/mL (247-911) Serum Folate 5.83ng/ml (3.2-20.0) Test 07/13/16 12:22 07/13/16 14:49 Glucose (Fingerstick) 82mg/dL (70-99) 93mg/dL (70-99) Review of Systems Review of Systems no fever, chills, chest pain Assessment and Plan Assessmemt and Plan Problems Medical Problems: (1) CHF exacerbation Status: Acute (2) COPD (chronic obstructive pulmonary disease) Status: Acute Problems: Comment Review of Relevant I have reviewed the following items mykel (where applicable) has been applied. Labs Laboratory Tests Test 07/12/16 15:45 07/12/16 20:56 07/13/16 07:11 07/13/16 08:00 White Blood Count 9.8x10^3/uL (4.0-11.0) 5.1x10^3/uL (4.0-11.0) Red Blood Count 3.18x10^6/uL (3.50-5.40) 2.89x10^6/uL (3.50-5.40) Hemoglobin 10.2g/dL (12.0-15.5) 9.2g/dL (12.0-15.5) Hematocrit 32.6% (36.0-47.0) 29.3% (36.0-47.0) Mean Corpuscular Volume 103fL (79-100) 101fL (79-100) Mean Corpuscular Hemoglobin 32pg (25-35) 32pg (25-35) Mean Corpuscular Hemoglobin Concent 31g/dL (31-37) 32g/dL (31-37) Red Cell Distribution Width 16.8% (11.5-14.5) 16.4% (11.5-14.5) Platelet Count 352x10^3/uL (140-400) 324x10^3/uL (140-400) Neutrophils (%) (Auto) 73% (31-73) 81% (31-73) Lymphocytes (%) (Auto) 13% (24-48) 8% (24-48) Monocytes (%) (Auto) 13% (0-9) 11% (0-9) Eosinophils (%) (Auto) 1% (0-3) 0% (0-3) Basophils (%) (Auto) 1% (0-3) 0% (0-3) Neutrophils # (Auto) 7.1x10^3uL (1.8-7.7) 4.2x10^3uL (1.8-7.7) Lymphocytes # (Auto) 1.3x10^3/uL (1.0-4.8) 0.4x10^3/uL (1.0-4.8) Monocytes # (Auto) 1.3x10^3/uL (0.0-1.1) 0.6x10^3/uL (0.0-1.1) Eosinophils # (Auto) 0.1x10^3/uL (0.0-0.7) 0.0x10^3/uL (0.0-0.7) Basophils # (Auto) 0.0x10^3/uL (0.0-0.2) 0.0x10^3/uL (0.0-0.2) D-Dimer (Rhonda) 1.42ug/mlFEU (0.00-0.50) Sodium Level 142mmol/L (136-145) 141mmol/L (136-145) Potassium Level 4.7mmol/L (3.5-5.1) 5.1mmol/L (3.5-5.1) Chloride Level 104mmol/L (98-107) 105mmol/L (98-107) Carbon Dioxide Level 29mmol/L (21-32) 30mmol/L (21-32) Anion Gap 9 (6-14) 6 (6-14) Blood Urea Nitrogen 30mg/dL (7-20) 37mg/dL (7-20) Creatinine 3.9mg/dL (0.6-1.0) 4.7mg/dL (0.6-1.0) Estimated GFR (Cockcroft-Gault) 13.7 11.1 Glucose Level 269mg/dL (70-99) 387mg/dL (70-99) Calcium Level 8.4mg/dL (8.5-10.1) 8.0mg/dL (8.5-10.1) Total Bilirubin 0.5mg/dL (0.2-1.0) Direct Bilirubin < 0.1mg/dL (0.0-0.2) Aspartate Amino Transf (AST/SGOT) 33U/L (15-37) Alanine Aminotransferase (ALT/SGPT) 24U/L (14-59) Alkaline Phosphatase 131U/L (46-116) Troponin I Quantitative 0.026ng/mL (0.000-0.055) SQ-Btw-Y-Type Natriuretic Peptide > 22801yn/mL (0-124) Total Protein 6.2g/dL (6.4-8.2) Albumin 2.4g/dL (3.4-5.0) Glucose (Fingerstick) 356mg/dL (70-99) 381mg/dL (70-99) Prothrombin Time 13.4SEC (11.7-14.0) Prothromb Time International Ratio 1.1 (0.8-1.1) Prealbumin 21mg/dL (9-32) Vitamin B12 Level 491pg/mL (247-911) Serum Folate 5.83ng/ml (3.2-20.0) Test 07/13/16 12:22 07/13/16 14:49 Glucose (Fingerstick) 82mg/dL (70-99) 93mg/dL (70-99) Laboratory Tests Test 07/12/16 15:45 07/12/16 20:56 07/13/16 07:11 07/13/16 08:00 White Blood Count 9.8x10^3/uL (4.0-11.0) 5.1x10^3/uL (4.0-11.0) Red Blood Count 3.18x10^6/uL (3.50-5.40) 2.89x10^6/uL (3.50-5.40) Hemoglobin 10.2g/dL (12.0-15.5) 9.2g/dL (12.0-15.5) Hematocrit 32.6% (36.0-47.0) 29.3% (36.0-47.0) Mean Corpuscular Volume 103fL (79-100) 101fL (79-100) Mean Corpuscular Hemoglobin 32pg (25-35) 32pg (25-35) Mean Corpuscular Hemoglobin Concent 31g/dL (31-37) 32g/dL (31-37) Red Cell Distribution Width 16.8% (11.5-14.5) 16.4% (11.5-14.5) Platelet Count 352x10^3/uL (140-400) 324x10^3/uL (140-400) Neutrophils (%) (Auto) 73% (31-73) 81% (31-73) Lymphocytes (%) (Auto) 13% (24-48) 8% (24-48) Monocytes (%) (Auto) 13% (0-9) 11% (0-9) Eosinophils (%) (Auto) 1% (0-3) 0% (0-3) Basophils (%) (Auto) 1% (0-3) 0% (0-3) Neutrophils # (Auto) 7.1x10^3uL (1.8-7.7) 4.2x10^3uL (1.8-7.7) Lymphocytes # (Auto) 1.3x10^3/uL (1.0-4.8) 0.4x10^3/uL (1.0-4.8) Monocytes # (Auto) 1.3x10^3/uL (0.0-1.1) 0.6x10^3/uL (0.0-1.1) Eosinophils # (Auto) 0.1x10^3/uL (0.0-0.7) 0.0x10^3/uL (0.0-0.7) Basophils # (Auto) 0.0x10^3/uL (0.0-0.2) 0.0x10^3/uL (0.0-0.2) D-Dimer (Rhonda) 1.42ug/mlFEU (0.00-0.50) Sodium Level 142mmol/L (136-145) 141mmol/L (136-145) Potassium Level 4.7mmol/L (3.5-5.1) 5.1mmol/L (3.5-5.1) Chloride Level 104mmol/L (98-107) 105mmol/L (98-107) Carbon Dioxide Level 29mmol/L (21-32) 30mmol/L (21-32) Anion Gap 9 (6-14) 6 (6-14) Blood Urea Nitrogen 30mg/dL (7-20) 37mg/dL (7-20) Creatinine 3.9mg/dL (0.6-1.0) 4.7mg/dL (0.6-1.0) Estimated GFR (Cockcroft-Gault) 13.7 11.1 Glucose Level 269mg/dL (70-99) 387mg/dL (70-99) Calcium Level 8.4mg/dL (8.5-10.1) 8.0mg/dL (8.5-10.1) Total Bilirubin 0.5mg/dL (0.2-1.0) Direct Bilirubin < 0.1mg/dL (0.0-0.2) Aspartate Amino Transf (AST/SGOT) 33U/L (15-37) Alanine Aminotransferase (ALT/SGPT) 24U/L (14-59) Alkaline Phosphatase 131U/L (46-116) Troponin I Quantitative 0.026ng/mL (0.000-0.055) LI-Ngx-X-Type Natriuretic Peptide > 07987lr/mL (0-124) Total Protein 6.2g/dL (6.4-8.2) Albumin 2.4g/dL (3.4-5.0) Glucose (Fingerstick) 356mg/dL (70-99) 381mg/dL (70-99) Prothrombin Time 13.4SEC (11.7-14.0) Prothromb Time International Ratio 1.1 (0.8-1.1) Prealbumin 21mg/dL (9-32) Vitamin B12 Level 491pg/mL (247-911) Serum Folate 5.83ng/ml (3.2-20.0) Test 07/13/16 12:22 07/13/16 14:49 Glucose (Fingerstick) 82mg/dL (70-99) 93mg/dL (70-99) Medications Current Medications Albuterol/ Ipratropium (Duoneb) 3 ml 1X ONCE NEB Last administered on 16:03; Start 07/12/16 at 16:15; Stop 07/12/16 at 16:16; Status DC Methylprednisolone Sodium Succinate (Solu-Medrol 125mg Vial) 125 mg 1X ONCE IV Last administered on 07/12/16 16:20; Start 07/12/16 at 16:00; Stop 07/12/16 at 16:05; Status DC Ondansetron HCl (Zofran) 4 mg PRN Q8HRS PRN IV NAUSEA/VOMITING; Start 07/12/16 at 17:00; Stop 07/13/16 at 16:59 Acetaminophen (Tylenol) 650 mg PRN Q4HRS PRN PO FEVER; Start 07/12/16 at 17:00; Stop 07/13/16 at 16:59 Albuterol/ Ipratropium (Duoneb) 3 ml RTQID NEB Last administered on 07/12/16 19 :47; Start 07/12/16 at 20:00; Stop 07/12/16 at 21:29; Status DC Albuterol/ Ipratropium (Duoneb) 3 ml Q4HRS W/A NEB Last administered on 12:05; Start 07/12/16 at 18:00 Heparin Sodium (Porcine) 5,000 unit Q12HR SQ Last administered on 07/13/16 08: 49; Start 07/12/16 at 21:00 Budesonide (Pulmicort) 0.5 mg RTBID NEB Last administered on 07/13/16 07:52; Start 07/12/16 at 20:00 Insulin Aspart (Novolog) 0-7 UNITS QIDACHS SQ ; Start 07/12/16 at 21:00 Dextrose (Dextrose 50%-Water Syringe) 12.5 gm PRN Q15MIN PRN IV SEE COMMENTS; Start 07/12/16 at 17:30 Alprazolam (Xanax) 0.5 mg PRN Q8HRS PRN PO ANXIETY / AGITATION Last administered on 07/13/16 10:57; Start 07/12/16 at 21:30 Amlodipine Besylate (Norvasc) 5 mg DAILY PO Last administered on 07/13/16 08:40 ; Start 07/13/16 at 09:00 Aspirin (Hung Aspirin) 325 mg DAILY PO Last administered on 07/13/16 08:39; Start 07/13/16 at 09:00 Atorvastatin Calcium (Lipitor) 10 mg DAILY PO Last administered on 07/13/16 08: 40; Start 07/13/16 at 09:00 Clopidogrel Bisulfate (Plavix) 75 mg DAILY PO Last administered on 07/13/16 08: 39; Start 07/13/16 at 09:00 Vitamin B Complex/ Vitamin C (Marina-Jayme) 1 tab DAILY PO Last administered on 08:39; Start 07/13/16 at 09:00 Linagliptin (Tradjenta) 5 mg DAILY PO Last administered on 07/13/16 08:40; Start 07/13/16 at 09:00 Lisinopril (Prinivil) 20 mg DAILY PO Last administered on 07/13/16 08:39; Start 07/13/16 at 09:00 Metolazone (Zaroxolyn) 2.5 mg DAILY PO Last administered on 07/13/16 08:39; Start 07/13/16 at 09:00 Metoprolol Tartrate (Lopressor) 50 mg DAILY PO Last administered on 07/13/16 08 :39; Start 07/13/16 at 09:00 Potassium Chloride (Klor-Con) 20 meq DAILYWBKFT PO ; Start 07/13/16 at 08:00; Stop 07/13/16 at 08:00; Status DC Non-Formulary Medication 2 puff PRN Q6HRS PRN INH SHORTNESS OF BREATH; Start at 21:30; Status UNV Fluoxetine HCl (Prozac) 20 mg DAILY PO Last administered on 07/13/16 08:42; Start 07/13/16 at 09:00 Insulin Detemir (Levemir) 20 units QHS SQ ; Start 07/13/16 at 21:00 Oxybutynin Chloride (Ditropan) 5 mg [id number] PO Last administered on 07/13/16 08: 40; Start 07/13/16 at 09:00 Albuterol Sulfate (Ventolin Neb Soln) 2.5 mg PRN Q4HRS PRN NEB WHEEZES; Start 07/12/16 at 21:45 Albuterol/ Ipratropium (Duoneb) 3 ml RTQID PRN NEB dyspnea; Start 07/12/16 at 21 :30; Status UNV Potassium Chloride (KCl Oral Soln) 20 meq DAILY PO Last administered on 08:38; Start 07/13/16 at 09:00 Insulin Aspart (Novolog) 10 units 1X ONCE SQ Last administered on 07/12/16 22: 40; Start 07/12/16 at 23:00; Stop 07/12/16 at 23:02; Status DC Vitamin B Complex (Folbic Tablet) 1 tab DAILY PO Last administered on 07/13/16 08:39; Start 07/13/16 at 09:00 Calcium Carbonate/ Glycine (Tums) 500 mg PRN TID PRN PO INDIGESTION; Start 07/13 at 09:00 Pantoprazole Sodium (Protonix) 40 mg BIDAC PO ; Start 07/13/16 at 09:00 Insulin Aspart (Novolog) 8 units TIDAC SQ ; Start 07/13/16 at 11:30 Insulin Aspart 20 units 20 units 1X ONCE SQ Last administered on 07/13/16 09: 01; Start 07/13/16 at 09:15; Stop 07/13/16 at 09:16; Status DC Sodium Chloride 1,000 ml @ 1,000 mls/hr Q1H PRN IV hypotension; Start 07/13/16 at 12:32; Stop 07/13/16 at 18:31 Albumin Human (Albuminar) 200 ml @ 200 mls/hr 1X PRN PRN IV Hypotension; Start 07/13/16 at 12:45; Stop 07/13/16 at 18:44 Acetaminophen (Tylenol) 500 mg 1X PRN PRN PO MILD PAIN / TEMP; Start 07/13/16 at 12:45; Stop 07/14/16 at 12:44 Diphenhydramine HCl (Benadryl) 25 mg 1X PRN PRN IV ITCHING; Start 07/13/16 at 12 :45; Stop 07/14/16 at 12:44 Diphenhydramine HCl 25 mg 25 mg 1X PRN PRN IV ITCHING; Start 07/13/16 at 12:45; Stop 07/14/16 at 12:44 Sodium Chloride (Iv Sodium Chloride 0.9% 1000ml Bag) 1,000 ml @ 400 mls/hr Q2H30M PRN IV PATENCY; Start 07/13/16 at 12:32; Stop 07/14/16 at 00:31 Info (PHARMACY MONITORING -- do not chart) 1 each PRN DAILY PRN MC SEE COMMENTS ; Start 07/13/16 at 12:45 Lidocaine HCl (Xylocaine-Mpf 1% Vial) 2 ml 1X STAT ID Last administered on 07/13 13:30; Start 07/13/16 at 13:21; Stop 07/13/16 at 13:28; Status DC Lidocaine HCl (Xylocaine-Mpf 1% Vial) 2 ml STK-MED ONCE .ROUTE ; Start 07/13/16 at 13:28; Stop 07/13/16 at 13:45; Status DC Active Scripts Active Lisinopril 20 Mg Tablet 20 Tab PO DAILY Klor-Con M20 (Potassium Chloride) 20 Meq Tab.er.prt 20 Meq PO DAILYWBKFT [Albuterol Sulfate] 2.5 MG/3 ML Nebu 2.5 Mg NEB PRN Q4HRS PRN Tradjenta (Linagliptin) 5 Mg Tablet 5 Mg PO DAILY Reported Fluoxetine Hcl 20 Mg Tablet 1 Tab PO DAILY Amlodipine Besylate 5 Mg Tablet 5 Mg PO DAILY Proair Hfa Inhaler (Albuterol Sulfate) 8.5 Gm Hfa.aer.ad 2 Puff INH PRN Q6HRS PRN Lantus Solostar (Insulin Glargine,Hum.rec.anlog) 100 Unit/1 Ml Insuln.pen 20 Unit SQ QHS Marina-Jayme Tablet (Folic Acid/Vitamin B Comp W-C) 0.8 Mg Tablet 0.8 Mg PO Metolazone 2.5 Mg Tablet 2.5 Mg PO DAILY Metoprolol Tartrate 50 Mg Tablet 1 Tab PO DAILY Atorvastatin Calcium 20 Mg Tablet 10 Mg PO DAILY Aspirin 325 Mg Tablet 1 Tab PO DAILY Tolterodine Tartrate 2 Mg Tablet 4 Mg PO DAILY Plavix (Clopidogrel Bisulfate) 75 Mg Tablet 75 Mg PO DAILY Vitals/I & O Vital Sign - Last 24 Hours 07/12/16 07/12/16 07/12/16 07/12/16 15:30 16:07 17:00 18:00 Temp 98.3 98.3 Pulse 92 88 90 Resp 22 20 B/P 175/75 162/83 183/67 Pulse Ox 97 96 99 99 O2 Delivery Nasal Cannula Nasal Cannula Nasal Cannula Nasal Cannula O2 Flow Rate 4 4.0 4 4 07/12/16 07/12/16 07/12/16 07/12/16 19:25 19:30 19:48 19:52 Temp 98.9 98.9 Pulse 88 Resp 18 B/P 167/65 Pulse Ox 92 98 O2 Delivery Nasal Cannula Nasal Cannula Nasal Cannula Nasal Cannula O2 Flow Rate 3.5 4.0 4.0 4.0 07/12/16 07/12/16 07/13/16 07/13/16 20:00 23:25 03:25 07:00 Temp 98.0 98.3 98.0 98.0 98.3 98.0 Pulse 96 87 83 Resp 18 18 18 B/P 166/67 169/73 124/61 Pulse Ox 96 94 100 O2 Delivery Nasal Cannula Nasal Cannula Nasal Cannula Nasal Cannula O2 Flow Rate 4.0 4.0 4.0 4.0 07/13/16 07/13/16 07/13/16 07/13/16 07:53 08:00 08:39 08:39 Pulse 83 83 B/P 124/61 124/61 Pulse Ox 100 O2 Delivery Nasal Cannula Nasal Cannula O2 Flow Rate 4.0 4.0 07/13/16 07/13/16 08:40 12:05 Pulse 83 B/P 124/61 O2 Delivery Nasal Cannula O2 Flow Rate 4.0 Intake and Output 07/12/16 07/12/16 07/13/16 15:00 23:00 07:00 Intake Total 450 ml Balance 450 ml Nutrition Consultation Dietary Evaluation: Recommendations by RD: Increase Calorie Intake, Protein supplementation Comments: Magic Cup BID - 290kcal and 9g protein Expected Outcomes/Goals: to meet >75% est nutr needs Malnutrition Findings: Food and Nutrition Intake (Mod: <75% est energy req 7days Weight Status: Obese Fluid Accumulation (Non-Severe: Mild depletion AC LEAL MD Jul 13, 2016 15:29
--- NOTE | 2016-07-13 16:37 | PDOC ---
Provider Note Provider Note LATE ENTRY - CARDIOLOGY Asked to see pt as having CP while on dialysis. Substernal/epigastric pain without radiation, felt diaphoretic and hot. Dialysis attempting to run @ 5. VSS during pain. EKG with anteroseptal T wave inversions, but not new when compared to EKGs back to 2013. Troponin level not consistent with AMI. Will place on telemetry and watch overnight. CHANTEL HIGGINBOTHAM DIRECTOR OF CLINICAL APPLICATIONS Jul 13, 2016 16:37
[2016-07-13 19:00] VITALS: BP 111/54
[2016-07-13] MEDS ORDERED: INSULIN DETEMIR 300 UNITS/3 ML INSULN.PEN. SQ SCH (21:00)
[2016-07-13 23:00] VITALS: BP 118/56
[2016-07-13] MEDS ORDERED: ACETAMINOPHEN 325 MG TABLET. PO PRN (23:00)
[2016-07-14 03:00] VITALS: BP 132/67
[2016-07-14 07:15] VITALS: BP 133/48
[2016-07-14] MEDS: BUDESONIDE 0.5 MG/2 ML NEBU. NEB SCH (07:20)
[2016-07-14] MEDS: IPRATRPIUM/ALBUTEROL 0.5/2.5MG 3 ML NEBU. NEB SCH ×2 (07:20→11:06)
--- NOTE | 2016-07-14 08:16 | RAD ---
Bilateral lower extremity venous Doppler ultrasound History: Bilateral lower extremity swelling, mild leg pain. Comparison: 05/30/2015. Procedure: Color Doppler, spectral Doppler, and grayscale images are obtained with and without compression in the area of the common femoral vein, superficial femoral vein - femoral vein junction, main femoral vein (superficial femoral vein) and popliteal vein. Veins of the proximal calf are also imaged. Findings: There is normal duplex flow, color flow and compressibility of all visualized vein segments. No evidence of deep venous thrombosis is present. Right Avery's cyst measuring 2.9 x 0.8 x 2.1 cm is seen. Left Avery's cyst cyst measuring 3.1 x 0.6 x 2.3 cm is seen. Impression: 1. No evidence of lower extremity deep venous thrombosis. 2. Bilateral Avery's cysts.
[2016-07-14] MEDS: FLUOXETINE HCL 20 MG CAPSULE. PO SCH (08:18)
[2016-07-14] MEDS: ASPIRIN 325 MG TABLET PO SCH (08:18)
[2016-07-14] MEDS: METOPROLOL TART IMMED RELEASE 50 MG TABLET. PO SCH (08:18)
[2016-07-14] MEDS: AMLODIPINE BESYLATE 5 MG TABLET. PO SCH (08:18)
[2016-07-14] MEDS: VITAMIN B12,B9,B6 COMPLEX 1 TABLET. PO SCH (08:18)
[2016-07-14] MEDS: METOLAZONE 2.5 MG TABLET PO SCH (08:19)
[2016-07-14] MEDS: CLOPIDOGREL BISULFATE 75 MG TABLET PO SCH (08:19)
[2016-07-14] MEDS: LINAGLIPTIN 5 MG TABLET PO SCH (08:19)
[2016-07-14] MEDS: FOLIC/VIT B COMP W-C (RENAL) TABLET. PO SCH (08:19)
[2016-07-14] MEDS: LISINOPRIL 20 MG TABLET PO SCH (08:19)
[2016-07-14] MEDS: ATORVASTATIN CALCIUM 10 MG TABLET. PO SCH (08:19)
[2016-07-14] MEDS: OXYBUTYNIN CHLORIDE 5 MG TABLET PO SCH (08:19)
[2016-07-14] MEDS: PANTOPRAZOLE 40 MG TABLET.DR. PO SCH (08:19)
[2016-07-14] MEDS: POTASSIUM CHLORIDE 20 MEQ/15 ML ORAL LIQUID. PO SCH (08:21)
--- NOTE | 2016-07-14 08:25 | CONS ---
DATE OF CONSULTATION: PRIMARY PHYSICIAN: Dr. Shafer. REASON FOR CONSULTATION: ESRD dialysis. HISTORY OF PRESENT ILLNESS: The patient is a pleasant 70-year-old -[place] female who was recently discharged from this facility; it was the end of the month of June. She has been going to outpatient dialysis; however, has not been able to achieve her dry weight. She denies any cramping, etc. It is, however, noted that she used to be on Lasix previously and is not on it currently based on our list of home medications. She claims she was dependent on increased use of her albuterol inhaler to help her with her shortness of breath. She was eventually seen by Dr. Bowen yesterday in his office. While in the office, she was noted to have low oxygen saturations in the 70s and was requiring increased oxygen. To maintain her saturation, she was sent to the ER for further evaluation and she is now hence admitted for shortness of breath. Chest x-ray is noted to show small pleural effusions and some cardiomegaly. We were asked to see her for Monday, Monday, Monday dialysis. WENDI SUAREZ MD DR: MARNI/courtney JOB#: [id number] / [id number]
[2016-07-14] MEDS: HEPARIN PF for SUB-Q USE 5,000 UNIT/0.5 ML VIAL. SQ SCH (08:34)
[2016-07-14] MEDS: INSULIN ASPART 300 UNITS/3 ML INSULN.PEN SQ SCH ×2 (08:35→11:30)
--- NOTE | 2016-07-14 09:40 | PDOC ---
PULMONARY PROGRESS NOTES Subjective feels better Vitals Vital Signs Date Time Temp Pulse Resp B/P Pulse Ox O2 Delivery O2 Flow Rate FiO2 07/14/16 08:19 84 133/48 07/14/16 07:21 100 Nasal Cannula 4.0 07/14/16 07:15 97.7 18 97.7 General: Alert, Oriented X4, No acute distress Lungs: Other (BL Deminished bs) Cardiovascular: S1, S2 Abdomen: Soft, Non-tender, Other Extremities: Other (1+edema) Labs Laboratory Tests Test 07/12/16 15:45 07/12/16 20:56 07/13/16 07:11 07/13/16 08:00 White Blood Count 9.8x10^3/uL (4.0-11.0) 5.1x10^3/uL (4.0-11.0) Red Blood Count 3.18x10^6/uL (3.50-5.40) 2.89x10^6/uL (3.50-5.40) Hemoglobin 10.2g/dL (12.0-15.5) 9.2g/dL (12.0-15.5) Hematocrit 32.6% (36.0-47.0) 29.3% (36.0-47.0) Mean Corpuscular Volume 103fL (79-100) 101fL (79-100) Mean Corpuscular Hemoglobin 32pg (25-35) 32pg (25-35) Mean Corpuscular Hemoglobin Concent 31g/dL (31-37) 32g/dL (31-37) Red Cell Distribution Width 16.8% (11.5-14.5) 16.4% (11.5-14.5) Platelet Count 352x10^3/uL (140-400) 324x10^3/uL (140-400) Neutrophils (%) (Auto) 73% (31-73) 81% (31-73) Lymphocytes (%) (Auto) 13% (24-48) 8% (24-48) Monocytes (%) (Auto) 13% (0-9) 11% (0-9) Eosinophils (%) (Auto) 1% (0-3) 0% (0-3) Basophils (%) (Auto) 1% (0-3) 0% (0-3) Neutrophils # (Auto) 7.1x10^3uL (1.8-7.7) 4.2x10^3uL (1.8-7.7) Lymphocytes # (Auto) 1.3x10^3/uL (1.0-4.8) 0.4x10^3/uL (1.0-4.8) Monocytes # (Auto) 1.3x10^3/uL (0.0-1.1) 0.6x10^3/uL (0.0-1.1) Eosinophils # (Auto) 0.1x10^3/uL (0.0-0.7) 0.0x10^3/uL (0.0-0.7) Basophils # (Auto) 0.0x10^3/uL (0.0-0.2) 0.0x10^3/uL (0.0-0.2) D-Dimer (Rhonda) 1.42ug/mlFEU (0.00-0.50) Sodium Level 142mmol/L (136-145) 141mmol/L (136-145) Potassium Level 4.7mmol/L (3.5-5.1) 5.1mmol/L (3.5-5.1) Chloride Level 104mmol/L (98-107) 105mmol/L (98-107) Carbon Dioxide Level 29mmol/L (21-32) 30mmol/L (21-32) Anion Gap 9 (6-14) 6 (6-14) Blood Urea Nitrogen 30mg/dL (7-20) 37mg/dL (7-20) Creatinine 3.9mg/dL (0.6-1.0) 4.7mg/dL (0.6-1.0) Estimated GFR (Cockcroft-Gault) 13.7 11.1 Glucose Level 269mg/dL (70-99) 387mg/dL (70-99) Calcium Level 8.4mg/dL (8.5-10.1) 8.0mg/dL (8.5-10.1) Total Bilirubin 0.5mg/dL (0.2-1.0) Direct Bilirubin < 0.1mg/dL (0.0-0.2) Aspartate Amino Transf (AST/SGOT) 33U/L (15-37) Alanine Aminotransferase (ALT/SGPT) 24U/L (14-59) Alkaline Phosphatase 131U/L (46-116) Troponin I Quantitative 0.026ng/mL (0.000-0.055) GH-Ybh-X-Type Natriuretic Peptide > 91517jb/mL (0-124) Total Protein 6.2g/dL (6.4-8.2) Albumin 2.4g/dL (3.4-5.0) Glucose (Fingerstick) 356mg/dL (70-99) 381mg/dL (70-99) Prothrombin Time 13.4SEC (11.7-14.0) Prothromb Time International Ratio 1.1 (0.8-1.1) Prealbumin 21mg/dL (9-32) Vitamin B12 Level 491pg/mL (247-911) Serum Folate 5.83ng/ml (3.2-20.0) Test 07/13/16 12:22 07/13/16 14:49 07/13/16 15:18 07/13/16 18:01 Glucose (Fingerstick) 82mg/dL (70-99) 93mg/dL (70-99) 113mg/dL (70-99) Troponin I Quantitative 0.040ng/mL (0.000-0.055) Test 07/13/16 20:20 07/14/16 07:14 Glucose (Fingerstick) 261mg/dL (70-99) 182mg/dL (70-99) Laboratory Tests Test 07/13/16 12:22 07/13/16 14:49 07/13/16 15:18 07/13/16 18:01 Glucose (Fingerstick) 82mg/dL (70-99) 93mg/dL (70-99) 113mg/dL (70-99) Troponin I Quantitative 0.040ng/mL (0.000-0.055) Test 07/13/16 20:20 07/14/16 07:14 Glucose (Fingerstick) 261mg/dL (70-99) 182mg/dL (70-99) Medications Active Scripts Medications Dose Route/Sig Days Date Category Fluoxetine Hcl 20 Mg Tablet 1 Tab PO DAILY 07/12/16 Reported Amlodipine Besylate 5 Mg Tablet 5 Mg PO DAILY 07/12/16 Reported Proair Hfa Inhaler (Albuterol Sulfate) 8.5 Gm Hfa.aer.ad 2 Puff INH PRN Q6HRS PRN 06/27/16 Reported Lantus Solostar (Insulin Glargine,Hum.rec.anlog) 100 Unit/1 Ml Insuln.pen 20 Unit SQ QHS 09/03/15 Reported Marina-Jayme Tablet (Folic Acid/Vitamin B Comp W-C) 0.8 Mg Tablet 0.8 Mg PO 09/03/15 Reported Metolazone 2.5 Mg Tablet 2.5 Mg PO DAILY 09/03/15 Reported Metoprolol Tartrate 50 Mg Tablet 1 Tab PO DAILY 09/03/15 Reported Atorvastatin Calcium 20 Mg Tablet 10 Mg PO DAILY 09/03/15 Reported Lisinopril 20 Mg Tablet 20 Tab PO DAILY 06/15/15 Rx Klor-Con M20 (Potassium Chloride) 20 Meq Tab.er.prt 20 Meq PO [id number] 03/29/15 Rx [Albuterol Sulfate] 2.5 MG/3 ML Nebu 2.5 Mg NEB PRN Q4HRS PRN 12/26/14 Rx Tradjenta (Linagliptin) 5 Mg Tablet 5 Mg PO DAILY 12/17/14 Rx Aspirin 325 Mg Tablet 1 Tab PO DAILY 01/25/14 Reported Tolterodine Tartrate 2 Mg Tablet 4 Mg PO DAILY 01/24/14 Reported Plavix (Clopidogrel Bisulfate) 75 Mg Tablet 75 Mg PO DAILY 01/10/14 Reported Impression . 1. Bkhas-ca-huthhzu hypoxic respiratory failure, most likely related to rwmra-[id number]-rtdahak diastolic heart failure. 2. History of normal ejection fraction with diastolic dysfunction grade 1. 3. History of end-stage renal disease, on hemodialysis. 4. History of chronic obstructive pulmonary disease with chronic respiratory failure on 3 liters at home. Plan . 1. s/p hemodialysis with ultrafiltration. 2. Follow up chest x-ray as needed 3. Follow renal recommendations. 4. Follow cardiology recommendations. 5. Optimization of blood pressure. 6. Continue present bronchodilators. 7. Wean FiO2 to keep saturations 92% and above. can go home today SHEILA ZHENG MD Jul 14, 2016 09:40
--- NOTE | 2016-07-14 10:11 | PDOC ---
SUBJECTIVE ROS ESRD Feeling much ebtter today CVS: no Orthopnea, no CP RESP: no SOB, no TAYLOR GI: no Nausea, no Vomiting : on Dysuria, no Urgency OBJECTIVE Vital Signs Vital Signs Date Time Temp Pulse Resp B/P Pulse Ox O2 Delivery O2 Flow Rate FiO2 07/14/16 08:19 84 133/48 07/14/16 07:21 100 Nasal Cannula 4.0 07/14/16 07:15 97.7 18 97.7 I & 0 Intake and Output 07/14/16 07:00 Intake Total 700 ml Output Total 100 ml Balance 600 ml Intake Oral 700 ml Output Urine Total 100 ml PHYSICAL EXAM Physical Exam General Appearance: Awake Alert Oriented x 3 In no Distress Eyes: VIsion Unchanged Conjunctiva Normal EN: No EN Drainage Mucous Memb. moist Neck: min JVD + JVP Supple no Thyromegaly CVS: S1 S2 + Murmur No Gallop No Rub tr Edema Resp: few basal Rales occ Rhonchi no Acc. Muscle use GI: BAS +ve NO Bruit Non Tender Non Distended : no CVA tenderness; no Suprapubic Tenderness DIAGNOSIS/ASSESSMENT Assessment & Plan ESRD: Current fluid and E-lyte status does not necessitate emergent need for dialysis. Will re-evaluate for dialysis in the am and continue on MWF schedule. Anemia: Epogen as ordered; Transfuse with next HD as needed. HTN: Current BP meds reviewed. See orders for changes. SOb - ? fl overload vs COPD Exac - unable to challenge D/wt due to Cramping etc. PO Flud restriction re-emphasized with pt and restart PO lasix Bone & Mineral: follow phos and alter binder regimen based on PO intake and trend. Problems: COMMENT/RELEVANT DATA Meds Current Medications Medications (Trade) Dose Ordered Sig/Eric Start Time Stop Time Status Last Admin Dose Admin Acetaminophen (Tylenol) 650 mg PRN Q6HRS PRN 07/13/16 23:00 07/14/16 00:25 650 MG Albumin Human (Albuminar) 200 ml @ 200 mls/hr 1X PRN PRN 07/13/16 12:45 07/13/16 18:44 DC Albuterol Sulfate (Ventolin Neb Soln) 2.5 mg PRN Q4HRS PRN 07/12/16 21:45 Albuterol/ Ipratropium (Duoneb) 3 ml RTQID PRN 07/12/16 21:30 UNV Alprazolam (Xanax) 0.5 mg PRN Q8HRS PRN 07/12/16 21:30 07/13/16 10:57 0.5 MG Amlodipine Besylate (Norvasc) 5 mg DAILY 07/13/16 09:00 07/14/16 08:18 5 MG Aspirin (Hung Aspirin) 325 mg DAILY 07/13/16 09:00 07/14/16 08:18 325 MG Atorvastatin Calcium (Lipitor) 10 mg DAILY 07/13/16 09:00 07/14/16 08:19 10 MG Budesonide (Pulmicort) 0.5 mg RTBID 07/12/16 20:00 07/14/16 07:20 0.5 MG Calcium Carbonate/ Glycine (Tums) 500 mg PRN TID PRN 07/13/16 09:00 Clopidogrel Bisulfate (Plavix) 75 mg DAILY 07/13/16 09:00 07/14/16 08:19 75 MG Dextrose (Dextrose 50%-Water Syringe) 12.5 gm PRN Q15MIN PRN 07/12/16 17:30 Diphenhydramine HCl (Benadryl) 25 mg 1X PRN PRN 07/13/16 12:45 07/14/16 12:44 Diphenhydramine HCl 25 mg 25 mg 1X PRN PRN 07/13/16 12:45 07/14/16 12:44 Fluoxetine HCl (Prozac) 20 mg DAILY 07/13/16 09:00 07/14/16 08:18 20 MG Heparin Sodium (Porcine) 5,000 unit Q12HR 07/12/16 21:00 07/14/16 08:34 5,000 UNIT Info (PHARMACY MONITORING -- do not chart) 1 each PRN DAILY PRN 07/13/16 12:45 Insulin Aspart (Novolog) 8 units TIDAC 07/13/16 11:30 07/13/16 15:26 DC Insulin Aspart 20 units 20 units 1X ONCE 07/13/16 09:15 07/13/16 09:16 DC 07/13/16 09:01 20 UNITS Insulin Detemir (Levemir) 20 units QHS 07/13/16 21:00 4/5/17 20:30 20 UNITS Lidocaine HCl (Xylocaine-Mpf 1% Vial) 2 ml STK-MED ONCE 07/13/16 13:28 07/13/16 13:45 DC Linagliptin (Tradjenta) 5 mg DAILY 07/13/16 09:00 07/14/16 08:19 5 MG Lisinopril (Prinivil) 20 mg DAILY 07/13/16 09:00 07/14/16 08:19 20 MG Methylprednisolone Sodium Succinate (Solu-Medrol 125mg Vial) 125 mg 1X ONCE 07/12/16 16:00 07/12/16 16:05 DC 07/12/16 16:20 125 MG Metolazone (Zaroxolyn) 2.5 mg DAILY 07/13/16 09:00 07/14/16 08:19 2.5 MG Metoprolol Tartrate (Lopressor) 50 mg DAILY 07/13/16 09:00 07/14/16 08:18 50 MG Non-Formulary Medication 2 puff PRN Q6HRS PRN 07/12/16 21:30 UNV Ondansetron HCl (Zofran) 4 mg PRN Q8HRS PRN 07/12/16 17:00 07/13/16 16:59 DC Oxybutynin Chloride (Ditropan) 5 mg [id number] 07/13/16 09:00 07/14/16 08:19 5 MG Pantoprazole Sodium (Protonix) 40 mg BIDAC 07/13/16 09:00 07/14/16 08:19 40 MG Potassium Chloride (KCl Oral Soln) 20 meq DAILY 07/13/16 09:00 07/14/16 08:21 20 MEQ Potassium Chloride (Klor-Con) 20 meq [id number] 07/13/16 08:00 07/13/16 08:00 DC Sodium Chloride (Iv Sodium Chloride 0.9% 1000ml Bag) 1,000 ml @ 400 mls/hr Q2H30M PRN 07/13/16 12:32 07/14/16 00:31 DC Vitamin B Complex (Folbic Tablet) 1 tab DAILY 07/13/16 09:00 07/14/16 08:18 1 TAB Vitamin B Complex/ Vitamin C (Marina-Jayme) 1 tab DAILY 07/13/16 09:00 07/14/16 08:19 1 TAB Lab Laboratory Tests Test 07/13/16 12:22 07/13/16 14:49 07/13/16 15:18 07/13/16 18:01 Glucose (Fingerstick) 82mg/dL (70-99) 93mg/dL (70-99) 113mg/dL (70-99) Troponin I Quantitative 0.040ng/mL (0.000-0.055) Test 07/13/16 20:20 07/14/16 07:14 Glucose (Fingerstick) 261mg/dL (70-99) 182mg/dL (70-99) WENDI SUAREZ MD Jul 14, 2016 10:11
--- NOTE | 2016-07-14 10:37 | PDOC ---
CARDIO Progress Notes Date and Time Date of Service 07/14/16 Time of Evaluation 1030 Subjective Subjective: No Chest Pain, No shortness of breath, Other (episode of CP on HD yesterday- none further ) Vitals Vitals Vital Signs Date Time Temp Pulse Resp B/P Pulse Ox O2 Delivery O2 Flow Rate FiO2 07/14/16 08:19 84 133/48 07/14/16 07:21 100 Nasal Cannula 4.0 07/14/16 07:15 97.7 18 97.7 Weight Weight [ ] Input and Output Intake and Output Intake and Output 07/14/16 07:00 Intake Total 700 ml Output Total 100 ml Balance 600 ml Intake Oral 700 ml Output Urine Total 100 ml Laboratory Labs Laboratory Tests Test 07/13/16 12:22 07/13/16 14:49 07/13/16 15:18 07/13/16 18:01 Glucose (Fingerstick) 82mg/dL (70-99) 93mg/dL (70-99) 113mg/dL (70-99) Troponin I Quantitative 0.040ng/mL (0.000-0.055) Test 07/13/16 20:20 07/14/16 07:14 Glucose (Fingerstick) 261mg/dL (70-99) 182mg/dL (70-99) Physical Exam HEENT: Neck Supple W Full Motion Chest: Symmetric LUNGS: Clear to Auscultation Heart: S1S2, RRR, murmurs (2/6 systolic murmur ) Abdomen: Soft N/T Extremities: No Calf Tenderness, Other (1+ DP pulses bilaterally. trace LE edema ) Neurology: alert, oriented, follow commands Assessment Assessment 1. Acute on chronic diastolic heart failure Recent echo ~ LVEF 55% with grade-I diastolic dysfunction and severe pulm HTN improved; clinically compensated continue fluid offloading/management per HD reinforced med compliance 2. Acute on chronic hypoxic respiratory failure secondary to combination of a/c diastolic HF and AE COPD improved management per pul 3. CAD s/p PCI/MALLORIE to RCA episode of chest pain in HD yesterday. no acute events overnight MPI 05/26 with small amount of ischemia being medically treated discussed further workup/evaluation- patient would like to defer at this time as she has had no further pain. will f/u on an outpatient basis. continue secondary prevention 4. PVD s/p PLATE CONDITIONER/stent placement to left common iliac artery. stable. no claudication symptoms 5. Hypertension controlled with meds 6. Hyperlipidemia LDL 86 01/2016 statin therapy 7. ESRD on HD fluid offloading in HD per nephrology 8. PENNY non-compliant with CPAP 9. DM uncontrolled per PCP 10. 4.9 cm infrarenal aortic aneurysm unchanged from previous study outpatient f/u with DARSHANA Shoemaker GENERAL INTERNIST AND PHYSICIAN LEADER Jul 14, 2016 10:37
[2016-07-14 10:59] VITALS: BP 129/50
[2016-07-14] MEDS ORDERED: FUROSEMIDE 80 MG TABLET. PO SCH (11:00)
--- NOTE | 2016-07-14 11:49 | PDOC3 ---
Discharge Summary [facility] Date of Admission: Jul 12, 2016 Discharge Date: Jul 14, 2016 Admitting Diagnosis 1. Jowcn-wl-yyvryto DIAstolic congestive heart failure. 2. ESRD on HD MWF 3. Bslls-ta-dholhlp respiratory failure. Hypoxia 4. COPD 5. Diabetes mellitus 6. Hypertension urgency 7. Peripheral artery disease. 8. Hyperlipidemia. 9. Asthma 10. Diverticulosis 11. chronic anemia 2/2 CHF, ESRD 12. Anxiety 13. abd aneurysm 4cm Problems: Final Diagnosis CONSULTS pulm card renal Brief Hospital Course Ms. Banks is a 70 old F, very pleasant, multiple commobidities including CHF, DM2, HTN, ESRD ON HD, copd, COMES here every 1-2ms for sob. home o2 4l. She is not compliant with her diuretics, and not using CPAP since machine issues. she improves immediately with HD. lower ext US neg, VQ scan neg for PE. dc home dc time 35min. General: Alert, Oriented X3, Cooperative, No acute distress, mild distress Heart: Regular rate, Normal S1 Lungs: Other (BL Deminished bs) Abdomen: Normal bowel sounds, Soft, No tenderness Extremities: No clubbing, Other (2+ pretibial edema) Skin: No rashes, No significant lesion Patient History: FH: heart attack Family history: Cardiomyopathy (situation) 32 MOTHER (PR resulting in ) Family history: Cardiovascular disease (situation) 32 MOTHER (stroke/HTN ) Family history: Diabetes mellitus (situation) G8 BROTHER Problems: Disposition home CONDITION AT DISCHARGE: Improved, Stable Diet renal Scheduled Amlodipine Besylate (Amlodipine Besylate) 5 MG PO DAILY (Reported) Aspirin (Aspirin) 1 TAB PO DAILY (Reported) Atorvastatin Calcium (Atorvastatin Calcium) 10 MG PO DAILY (Reported) Clopidogrel Bisulfate (Plavix) 75 MG PO DAILY (Reported) Fluoxetine Hcl (Fluoxetine Hcl) 1 TAB PO DAILY (Reported) Insulin Glargine,Hum.rec.anlog (Lantus Solostar) 20 UNIT SQ QHS (Reported) Linagliptin (Tradjenta) 5 MG PO DAILY Lisinopril (Lisinopril) 20 TAB PO DAILY Metolazone (Metolazone) 2.5 MG PO DAILY (Reported) Metoprolol Tartrate (Metoprolol Tartrate) 1 TAB PO DAILY (Reported) Potassium Chloride (Klor-Con M20) 20 MEQ PO DAILYWBKFT Tolterodine Tartrate (Tolterodine Tartrate) 4 MG PO DAILY (Reported) Scheduled PRN ([Albuterol Sulfate]) 2.5 MG NEB PRN Q4HRS PRN PRN SHORTNESS OF BREATH Albuterol Sulfate (Proair Hfa Inhaler) 2 PUFF INH PRN Q6HRS PRN PRN SHORTNESS OF BREATH (Reported) Miscellaneous Medications Folic Acid/Vitamin B Comp W-C (Marina-Jayme Tablet) 0.8 MG PO (Reported) Discontinued Medications Donepezil Hcl (Donepezil Hcl) 10 MG PO HS (Reported) Follow Up pcp , AC Atkinson MD Jul 14, 2016 11:49
[2016-07-14] MEDS ORDERED: DARBEPOETIN ALFA 60 MCG/0.3 ML DISP.SYRIN. SQ SCH (21:00)
== END 2016-07-14 13:52 | disposition home or self-care (01) | DRG 291 ==
LOC: ER 15:30 → 6 SOUTH 16:49
PROVIDERS: ADMIT Internal Medicine; ATTEND Internal Medicine
PROC: 5A1D00Z (ICD-10-PCS; principal; 2016-07-13)
DX: I50.33 Acute on chronic diastolic (congestive) heart failure (principal); N18.6 End stage renal disease; J96.21 Acute and chronic respiratory failure with hypoxia; E43 Unspecified severe protein-calorie malnutrition; I13.2 Hypertensive heart and chronic kidney disease with heart failure and with stage 5 chronic kidney disease, or end stage renal disease; J44.1 Chronic obstructive pulmonary disease with (acute) exacerbation; J98.11 Atelectasis; Z68.34 Body mass index [BMI] 34.0-34.9, adult; D63.1 Anemia in chronic kidney disease; E11.22 Type 2 diabetes mellitus with diabetic chronic kidney disease; E11.65 Type 2 diabetes mellitus with hyperglycemia; E78.00 Pure hypercholesterolemia, unspecified; E78.5 Hyperlipidemia, unspecified; F41.9 Anxiety disorder, unspecified; G47.33 Obstructive sleep apnea (adult) (pediatric); I25.10 Atherosclerotic heart disease of native coronary artery without angina pectoris; I27.2 Other secondary pulmonary hypertension; I49.3 Ventricular premature depolarization; I71.9 Aortic aneurysm of unspecified site, without rupture; I73.9 Peripheral vascular disease, unspecified; K21.9 Gastro-esophageal reflux disease without esophagitis; K57.90 Diverticulosis of intestine, part unspecified, without perforation or abscess without bleeding; Z82.3 Family history of stroke; Z82.49 Family history of ischemic heart disease and other diseases of the circulatory system; Z83.3 Family history of diabetes mellitus; Z87.891 Personal history of nicotine dependence; I25.2 Old myocardial infarction; Z91.14 Patient's other noncompliance with medication regimen; Z91.19 Patient's noncompliance with other medical treatment and regimen; Z98.61 Coronary angioplasty status; Z99.2 Dependence on renal dialysis; Z99.81 Dependence on supplemental oxygen; Z90.49 Acquired absence of other specified parts of digestive tract; Z91.041 Radiographic dye allergy status; I16.0 Hypertensive urgency
CPT/HCPCS: 36415; 71010; 78582; 80048; 80076; 82607; 82746; 82947; 83880; 84134; 84484; 85027; 85379; 85610; 93005; 93970; 94250; 94640; 94760; 96374; A9540; A9558; J1815; J2930; J7620; 99285-25

== ENCOUNTER 2016-08-05 06:25 | Day surgery (SDC) | payer MEDICARE, BC ==
[~2016-08-05 06:25] MED LIST changes: +AMLO5TAB2 PO; +CIPROFLOXACIN 0.3% OPHTH SOLUTION 5ML BOTTLE. OD ONE; +DONE10TA7 PO; +EPINEPHRINE 0.2 MG in BALANCED SALT IRR SOLN (BAG) 500 ML IO ONE; +FLUO20TA11 PO; +LIDOCAINE 2% JELLY 6ML IN APPLICATOR. MM PRN; +PROPARACAINE 0.5% OPHTH SOLUTION 15ML BOTTLE. OD ONE
[2016-08-05] MEDS ORDERED: HYDROmorphone 2 MG/ML VIAL IV PRN (07:00)
[2016-08-05] MEDS ORDERED: LIDOCAINE 1% 1 ML SYRINGE. ID PRN (07:00)
[2016-08-05] MEDS ORDERED: IV RINGERS,LACTATED 1000ML 1,000 ML IV SCH (07:00)
[2016-08-05] MEDS ORDERED: FENTANYL PF 100 MCG/2 ML VIAL. IV PRN ×2 (07:00)
[2016-08-05] MEDS ORDERED: ONDANSETRON PF 4 MG/2 ML VIAL. IV PRN (07:00)
[2016-08-05] MEDS ORDERED: MORPHINE SULFATE 2 MG/ML DISP.SYRIN. IV PRN (07:00)
[2016-08-05] MEDS ORDERED: PROCHLORPERAZINE 10 MG/2 ML VIAL. IV PRN (07:00)
[2016-08-05] MEDS: CYCLOPENTOLATE 1% OPTH SOLUTION 2ML BOTTLE. OD SCH ×3 (07:12→07:22)
[2016-08-05] MEDS: PHENYLEPHRINE 10% OPHTH SOLUTION 5ML BOTTLE. OD SCH ×3 (07:13→07:22)
[2016-08-05] MEDS ORDERED: LIDOCAINE 1% PF 2 ML VIAL. ONE (07:21)
[2016-08-05] MEDS ORDERED: NEO/POLYMYX/DEXAMETH OPHTH OINTMENT 3.5GM TUBE. ONE (07:21)
[2016-08-05] MEDS ORDERED: CHONDROIT-SOD-HYALURONATE KIT. ONE (07:21)
[2016-08-05] MEDS ORDERED: BALANCED SALT IRRIG OPHTH SOLN 15 ML BOTTLE. ONE (07:21)
[2016-08-05] MEDS ORDERED: IV NORMAL SALINE 1000ML BAG 1,000 ML IV ONE (07:30)
[2016-08-05] MEDS ORDERED: METOPROLOL TARTRATE 5 MG/5 ML VIAL. ONE (08:59)
[2016-08-05] MEDS ORDERED: ESMOLOL 100 MG/10 ML VIAL. IV ONE (08:59)
[2016-08-05] MEDS ORDERED: LABETALOL 20 MG/4 ML DISP.SYRIN. ONE (09:02)
[2016-08-05 09:21] VITALS: BP 183/81
--- NOTE | 2016-08-05 13:08 | OP ---
DATE OF SURGERY: 08/05/2016 PREOPERATIVE DIAGNOSIS: Senile cataract, right eye. POSTOPERATIVE DIAGNOSIS: Senile cataract, right eye. PROCEDURE: Phacoemulsification with posterior chamber lens implant, right eye. ANESTHESIA: Topical with MAC. DESCRIPTION OF PROCEDURE: The patient's dilating drops and topical anesthesia were applied in the outpatient department, and the [place] balloon cuff was placed over the eye and inflated to 30 mmHg and allowed to act for about 10 minutes. The patient was then brought to the operating room, positioned on the table, and the right eye was prepped and draped in the usual sterile manner for an intraocular procedure. A lid speculum was placed between the eyelids, and the operating scope was brought into position. Paracentesis incision was made superior temporally, and 1% nonpreserved lidocaine injected in the anterior chamber. This was followed by an injection of Viscoat, and then the primary 2.4-mm incision was made temporally. A capsulorrhexis was performed without difficulty, and the lens nucleus was hydrodissected. The phacoemulsification handpiece was then used to phacoemulsify the lens nucleus without difficulty. The I/A handpiece was then used to aspirate the cortex. Provisc was then injected into the anterior chamber and also used to insufflate the capsular bag. A posterior chamber lens was then injected into the bag without difficulty. The Provisc was then aspirated using the I/A handpiece. The anterior chamber was reformed and the eye pressurized and the wound checked for leaks, and there were none. The eye looked very good at the end of the case. The lid speculum was removed as was the drape, and Maxitrol ointment was instilled in the conjunctival sac. The eye was shielded, and the patient was taken to the recovery room in satisfactory condition. There were no complications. I will call the patient tomorrow and see her on Monday for evaluation. K MARISSA ARELLANO MD DR: JULES/courtney JOB#: [id number] / [id number]
== END 2016-08-05 10:00 | disposition home or self-care (01) ==
LOC: SURG 06:25
PROVIDERS: ATTEND Ophthalmology
DX: E11.36 Type 2 diabetes mellitus with diabetic cataract (principal); E78.00 Pure hypercholesterolemia, unspecified; I11.0 Hypertensive heart disease with heart failure; I50.9 Heart failure, unspecified; E66.9 Obesity, unspecified; J44.9 Chronic obstructive pulmonary disease, unspecified; M19.90 Unspecified osteoarthritis, unspecified site; F41.9 Anxiety disorder, unspecified; I25.10 Atherosclerotic heart disease of native coronary artery without angina pectoris; J45.909 Unspecified asthma, uncomplicated; D64.9 Anemia, unspecified; Z98.42 Cataract extraction status, left eye; Z86.718 Personal history of other venous thrombosis and embolism
CPT/HCPCS: 66984; C1780; J0171; J3490; J2001

== ENCOUNTER 2016-09-07 16:52 | Inpatient (IN) | payer MEDICARE, BC ==
[~2016-09-07] VITALS: Ht 154.9 cm; Wt 77.2 kg
[~2016-09-07 16:52] MED LIST changes: -CIPROFLOXACIN 0.3% OPHTH SOLUTION 5ML BOTTLE. OD ONE; -EPINEPHRINE 0.2 MG in BALANCED SALT IRR SOLN (BAG) 500 ML IO ONE; -LIDOCAINE 2% JELLY 6ML IN APPLICATOR. MM PRN; -LINA5TAB PO; +LINA5TAB4 PO; -PROPARACAINE 0.5% OPHTH SOLUTION 15ML BOTTLE. OD ONE
--- NOTE | 2016-09-07 17:07 | PHYS DOC ---
Past Medical History Past Medical History: CHF, COPD, Diabetes-Type II, DVT, High Cholesterol, Hypertension, [place], Renal Disease, Renal Failure, Other Additional Past Medical Histor: dialysis MWF, O2 4LNC @ home, CPAP Past Surgical History: Angioplasty, Other Additional Past Surgical Histo: cardiac cath with stent placement, rotator cuff surgery,AV graft Alcohol Use: None Drug Use: None Adult General Chief Complaint Chief Complaint: SHORTNESS OF BREATH HPI HPI Patient is a 70 year old female who presents with creasing shortness of breath with a productive cough for the past 3 days. Patient presented to triage on her 3 L of oxygen with O2 saturations in the 70s and was bumped up to 5 L with O2 saturations in the high 80s. Patient has a history of emphysema with a history of smoking. Patient states she doesn't productive cough for the past 3 days. Patient denies any fevers. Patient is a dialysis patient gets dialyzed Monday. Patient went to dialysis today without a couple occasions. She denies any chest pain. Patient has no other complaints. Pertinent exam findings: Regular rate and rhythm without murmurs Decreased breath sounds bilaterally, tachypneic ED course: Patient was seen and evaluated upon arrival CBC, CMP, EKG, chest x-ray, blood cultures, lactic acid were ordered 1909: Patient reevaluated still feeling short of breath with a cough, plain plan to admit the patient and will order a CT scan of the chest without contrast 1912: Dr. Hill paged 1917: Discussed CC/HP/PMH with Dr. Hill and recommends admit [] Pertinent findings: 1704: EKG is normal sinus rhythm rate of 86 no STEMI, right bundle branch block Portable chest x-ray shows a left pleural effusion and cardiomegaly no significant Change from July 12, 2016 MDM: After reviewing the chart, CC/HPI/PMH, physical exam, [lab results], [ radiological results], I believe the patient has a clinical pneumonia and needs admission with IV antibiotics. Do not believe the patient is septic at this time does not need ICU. Review of Systems Review of Systems GEN: Denies fevers, chills, sweats HEENT: Denies blurred vision, sore throat CV: Denies chest pain RESP: Shortness of breath, productive cough GI: Denies n/v/d NEURO: Denies confusion, dizziness MSK: Denies weakness, joint pain/swelling Current Medications Current Medications Current Medications Medications (Trade) Dose Ordered Sig/Eric Start Time Stop Time Status Last Admin Dose Admin Azithromycin 250 ml @ 250 mls/hr 1X ONCE 09/07/16 19:15 09/07/16 20:14 Ceftriaxone Sodium 50 ml @ 100 mls/hr 1X ONCE 09/07/16 19:15 09/07/16 19:44 Allergies Allergies Allergies Coded Allergies Type Severity Reaction Last Updated Verified Iodinated Contrast Media - Oral and Allergy Intermediate 08/05/16 Yes Physical Exam Physical Exam GEN.: Mild distress. Alert and oriented. HEENT: Head is normocephalic, atraumatic NECK: Supple. LUNGS: [place] breath sounds bilaterally, tachypnea. HEART: RRR, S1, S2 present. Peripheral pulses intact ABDOMEN: Soft, nontender. Positive bowel sounds. EXTREMITIES: Without any cyanosis. NEUROLOGIC: Normal speech, normal tone PSYCHIATRIC: Normal affect, normal mood. SKIN: No ulcerations Current Patient Data Vital Signs Vital Signs Date Time Temp Pulse Resp B/P (MAP) Pulse Ox O2 Delivery O2 Flow Rate FiO2 09/07/16 17:00 98.1 90 28 181/86 (117) 98 Nasal Cannula 3.0 98.1 Lab Values Laboratory Tests Test 09/07/16 18:02 White Blood Count 9.7 x10^3/uL (4.0-11.0) Red Blood Count 3.73 x10^6/uL (3.50-5.40) Hemoglobin 11.9 g/dL (12.0-15.5) L Hematocrit 37.3 % (36.0-47.0) Mean Corpuscular Volume 100 fL (79-100) Mean Corpuscular Hemoglobin 32 pg (25-35) Mean Corpuscular Hemoglobin Concent 32 g/dL (31-37) Red Cell Distribution Width 15.5 % (11.5-14.5) H Platelet Count 263 x10^3/uL (140-400) Neutrophils (%) (Auto) 83 % (31-73) H Lymphocytes (%) (Auto) 6 % (24-48) L Monocytes (%) (Auto) 11 % (0-9) H Eosinophils (%) (Auto) 0 % (0-3) Basophils (%) (Auto) 0 % (0-3) Neutrophils # (Auto) 8.1 x10^3uL (1.8-7.7) H Lymphocytes # (Auto) 0.5 x10^3/uL (1.0-4.8) L Monocytes # (Auto) 1.0 x10^3/uL (0.0-1.1) Eosinophils # (Auto) 0.0 x10^3/uL (0.0-0.7) Basophils # (Auto) 0.0 x10^3/uL (0.0-0.2) Sodium Level 139 mmol/L (136-145) Potassium Level 3.4 mmol/L (3.5-5.1) L Chloride Level 104 mmol/L (98-107) Carbon Dioxide Level 24 mmol/L (21-32) Anion Gap 11 (6-14) Blood Urea Nitrogen 14 mg/dL (7-20) Creatinine 3.0 mg/dL (0.6-1.0) H Estimated GFR (Cockcroft-Gault) 18.6 BUN/Creatinine Ratio 5 (6-20) L Glucose Level 188 mg/dL (70-99) H Lactic Acid Level 1.3 mmol/L (0.4-2.0) Calcium Level 7.9 mg/dL (8.5-10.1) L Total Bilirubin 0.3 mg/dL (0.2-1.0) Aspartate Amino Transferase (AST) 19 U/L (15-37) Alanine Aminotransferase (ALT) 18 U/L (14-59) Alkaline Phosphatase 159 U/L (46-116) H Total Protein 6.7 g/dL (6.4-8.2) Albumin 2.4 g/dL (3.4-5.0) L Albumin/Globulin Ratio 0.6 (1.0-1.7) L Laboratory Tests 09/07/16 18:02 Laboratory Tests 09/07/16 18:02 EKG EKG Normal sinus rhythm rate of 86 no STEMI, right bundle branch block [] Radiology/Procedures Radiology/Procedures Portable chest x-ray shows a left pleural effusion and cardiomegaly no significant Change from July 12, 2016[] Course & Med Decision Making Course & Med Decision Making Pertinent Labs and Imaging studies reviewed. (See chart for details) [] Dragon Disclaimer Dragon Disclaimer This electronic medical record was generated, in whole or in part, using a voice recognition dictation system. Departure Departure Impression: Primary Impression: Hypoxia Additional Impressions: Community acquired pneumonia ESRD (end stage renal disease) on dialysis Disposition: 09 ADMITTED INPATIENT Admitting Physician: Candida Hill Condition: STABLE Referrals: BERTO TORRES MD (PCP) Problem Qualifiers MCKENZIE DUBOIS DO September 07, 2016 17:07
[2016-09-07 18:30] LABS: BASO % 0 % (0-3); EOS % 0 % (0-3); HEMATOCRIT 37.3 % (36.0-47.0); HEMOGLOBIN 11.9 g/dL (12.0-15.5); LYMPH # 0.5 x10^3/uL (1.0-4.8); LYMPH % 6 % (24-48); MEAN CORPUSCULAR HEMOGLOBIN 32 pg (25-35); MEAN CORPUSCULAR HGB CONC 32 g/dL (31-37); MEAN CORPUSCULAR VOLUME 100 fL (79-100); MONO % 11 % (0-9); NEUT % 83 % (31-73); PLATELET COUNT 263 x10^3/uL (140-400); RED BLOOD COUNT 3.73 x10^6/uL (3.50-5.40); RED CELL DISTRIBUTION WIDTH 15.5 % (11.5-14.5); WHITE BLOOD COUNT 9.7 x10^3/uL (4.0-11.0)
[2016-09-07 18:42] LABS: CALCIUM 7.9 mg/dL (8.5-10.1); GFR 18.6; POTASSIUM 3.4 mmol/L (3.5-5.1)
[2016-09-07 18:48] LABS: ALBUMIN 2.4 g/dL (3.4-5.0); ALBUMIN/GLOBULIN RATIO 0.6 (1.0-1.7); TOTAL BILIRUBIN 0.3 mg/dL (0.2-1.0); TOTAL PROTEIN 6.7 g/dL (6.4-8.2)
[2016-09-07] MEDS ORDERED: AZITHRMYCN 500MG IVPB FOR OMNI 250 ML IV ONE (19:15)
[2016-09-07 20:15] VITALS: BP 139/55
--- NOTE | 2016-09-07 20:20 | PDOC1 ---
History and Physical Date of Admission Date of Admission DATE: 09/07/16 TIME: 20:11 Identification/Chief Complaint Chief Complaint SOA Problems: Source Source: Caregiver, Chart review, Patient History of Present Illness History of Present Illness 70 y.o AA female, lives at home with , brought in by concerned family today bec of inc work of breathing, Known COPD on 6 LNC at daytime, 3 L NC qhs, was hypoxic initially upon ER arrival mid to high 70s, with O2 support, improved , NO CP, Denies recent travel, sick contacts or hospitalization or acute rehab stay, CXR some haziness, no white ct or fever but does admit to some new cough that is rather productive that I have appreciated at ER 2.. Started on CAP coverage, oxygenating better, hungry. She has quit smoking some 40 yrs ago. RSO: diarrhea and 1 emesis? recently put on antibiotic for R ear infection x 3 days - done Ears inspected WNL on AD, cone of light appreciated, has cerumen\ K 3.3 Albumin low, 2.4 Past Medical History Cardiovascular: CAD, CHF, HTN, Hyperlipidemia, Other Pulmonary: Asthma, COPD, Other CENTRAL NERVOUS SYSTEM: Other GI: Diverticulosis Heme/Onc: Anemia NOS Psych: Anxiety Rheumatologic: No pertinent hx Infectious disease: No pertinent hx Renal/: Chronic renal failure Endocrine: Diabetes Past Surgical History Past Surgical History: Appendectomy, Arthroscopy, Other Family History Family History: Coronary Artery Disease, Diabetes, Hypertension Social History Smoke: Quit ALCOHOL: none Drugs: None Current Problem List Problem List Problems Medical Problems: (1) Community acquired pneumonia Status: Acute (2) ESRD (end stage renal disease) on dialysis Status: Acute (3) Hypoxia Status: Acute Problems: Current Medications Current Medications Current Medications Ceftriaxone Sodium 50 ml @ 100 mls/hr 1X ONCE IV Last administered on t 19:42; Start 09/07/16 at 19:15; Stop 09/07/16 at 19:44; Status DC Azithromycin 250 ml @ 250 mls/hr 1X ONCE IV ; Start 09/07/16 at 19:15; Stop at 20:14 Active Scripts Active Lisinopril 20 Mg Tablet 20 Tab PO DAILY Klor-Con M20 (Potassium Chloride) 20 Meq Tab.er.prt 20 Meq PO DAILYWBKFT [Albuterol Sulfate] 2.5 MG/3 ML Nebu 2.5 Mg NEB PRN Q4HRS PRN Tradjenta (Linagliptin) 5 Mg Tablet 5 Mg PO DAILY Reported Fluoxetine Hcl 20 Mg Tablet 1 Tab PO DAILY Amlodipine Besylate 5 Mg Tablet 5 Mg PO DAILY Proair Hfa Inhaler (Albuterol Sulfate) 8.5 Gm Hfa.aer.ad 2 Puff INH PRN Q6HRS PRN Lantus Solostar (Insulin Glargine,Hum.rec.anlog) 100 Unit/1 Ml Insuln.pen 20 Unit SQ QHS Marina-Jayme Tablet (Folic Acid/Vitamin B Comp W-C) 0.8 Mg Tablet 0.8 Mg PO Metolazone 2.5 Mg Tablet 2.5 Mg PO DAILY Metoprolol Tartrate 50 Mg Tablet 1 Tab PO DAILY Atorvastatin Calcium 20 Mg Tablet 10 Mg PO DAILY Aspirin 325 Mg Tablet 1 Tab PO DAILY Tolterodine Tartrate 2 Mg Tablet 4 Mg PO DAILY Plavix (Clopidogrel Bisulfate) 75 Mg Tablet 75 Mg PO DAILY Allergies Allergies: Coded Allergies: Iodinated Contrast Media - Oral and (Verified Allergy, Intermediate, ) ROS General: No: Chills, Night Sweats, Fatigue, Malaise, Appetite, Other PSYCHOLOGICAL ROS: No: Anxiety, Behavioral Disorder, Concentration difficultie , Decreased libido, Depression, Disorientation, Hallucinations, Hostility, Irritablity, Memory difficulties, Mood Swings, Obsessive thoughts, Physical abuse, Sexual abuse, Sleep disturbances, Suicidal ideation, Other Eyes: No Blurry vision, No Decreased vision, No Double vision, No Dry eyes, No Excessive tearing, No Eye Pain, No Itchy Eyes, No Loss of vision, No Photophobia , No Scotomata, No Uses contacts, No Uses glasses, No Other HEENT: No: Heacaches, Visual Changes, Hearing change, Nasal congestion, Nasal discharge, Oral lesions, Sinus pain, Sore Throat, Epistaxis, Sneezing, Snoring, Tinnitus, Vertigo, Vocal changes, Other ALLERGY AND IMMUNOLOGY: No: Hives, Insect Bite Sensitivity, Itchy/Watery Eyes, Nasal Congestion, Post Nasal Drip, Seasonal Allergies, Other Hematological and Lymphatic: No: Bleeding Problems, Blood Clots, Blood Transfusions, Brusing, Night Sweats, Pallor, Swollen Lymph Nodes, Other ENDOCRINE: YES: Breast Changes, Galactorrhea, Hair Pattern Changes, Hot Flashes , Malaise/lethargy, Mood Swings, Palpitations, Polydipsia/polyuria, Skin Changes , Temperature Intolerance, Unexpected Weight Changes, Other Respiratory: YES: Cough, Shortness of breath, SOB with excertion, Sputum Changes Cardiovascular: No Chest Pain, No Palpitations, No Orthopnea, No Paroxysmal Noc. Dyspnea, No Edema, No Lt Headedness, No Other Gastrointestinal: Yes Diarrhea (1 epsiode, no recurrence - recently on antibiotic by PCP for R ear infection) Genitourinary: No Dysuria, No Frequency, No Incontinence, No Hematuria, No Retention, No Discharge, No Urgency, No Pain, No Flank Pain, No Other, No , No , No , No , No , No , No Musculoskeletal: No Gait Disturbance, No Joint Pain, No Joint Stiffness, No Joint Swelling, No Muscle Pain, No Muscular Weakness, No Pain In:, No Swelling In:, No Other Neurological: No Behavorial Changes, No Bowel/Bladder ControlChng, No Confusion , No Dizziness, No Gait Disturbance, No Headaches, No Impaired Coord/balance, No Memory Loss, No Numbness/Tingling, No Seizures, No Speech Problems, No Tremors, No Visual Changes, No Weakness, No Other Skin: No Dry Skin, No Eczema, No Hair Changes, No Lumps, No Mole Changes, No Mottling, No Nail Changes, No Pruritus, No Rash, No Skin Lesion Changes, No Other, No Acne Physical Exam General: Alert, Oriented X3, Cooperative, No acute distress HEENT: PERRLA Lungs: Normal air movement, Other (no wheezing no crackles, dec bS poor inspiratory effort) Heart: S1S2, RRR, no thrills, no rubs Breasts: Normal, Rt breast nml w/o mass, Lt breast nml w/o mass, Nipples normal Abdomen: Normal bowel sounds, Soft, No tenderness, No hepatosplenomegaly, No masses Rectal Exam: not examined, mass PELVIC: Nml ext genitalia Extremities: No clubbing, No cyanosis, No edema, Normal pulses, No tenderness/ swelling Skin: No rashes, No breakdown, No significant lesion Neuro: Normal gait, Normal speech, Strength at 5/5 X4 ext, Normal tone, Sensation intact, Cranial nerves 3-12 NL, Reflexes 2+ Psych/Mental Status: Mental status NL, Mood NL Vitals Vitals Vital Signs Date Time Temp Pulse Resp B/P (MAP) Pulse Ox O2 Delivery O2 Flow Rate FiO2 09/07/16 19:33 86 20 188/93 (124) 98 Room Air 09/07/16 17:00 98.1 3.0 98.1 Labs Labs Laboratory Tests Test 09/07/16 18:02 White Blood Count 9.7 x10^3/uL (4.0-11.0) Red Blood Count 3.73 x10^6/uL (3.50-5.40) Hemoglobin 11.9 g/dL (12.0-15.5) Hematocrit 37.3 % (36.0-47.0) Mean Corpuscular Volume 100 fL (79-100) Mean Corpuscular Hemoglobin 32 pg (25-35) Mean Corpuscular Hemoglobin Concent 32 g/dL (31-37) Red Cell Distribution Width 15.5 % (11.5-14.5) Platelet Count 263 x10^3/uL (140-400) Neutrophils (%) (Auto) 83 % (31-73) Lymphocytes (%) (Auto) 6 % (24-48) Monocytes (%) (Auto) 11 % (0-9) Eosinophils (%) (Auto) 0 % (0-3) Basophils (%) (Auto) 0 % (0-3) Neutrophils # (Auto) 8.1 x10^3uL (1.8-7.7) Lymphocytes # (Auto) 0.5 x10^3/uL (1.0-4.8) Monocytes # (Auto) 1.0 x10^3/uL (0.0-1.1) Eosinophils # (Auto) 0.0 x10^3/uL (0.0-0.7) Basophils # (Auto) 0.0 x10^3/uL (0.0-0.2) Sodium Level 139 mmol/L (136-145) Potassium Level 3.4 mmol/L (3.5-5.1) Chloride Level 104 mmol/L (98-107) Carbon Dioxide Level 24 mmol/L (21-32) Anion Gap 11 (6-14) Blood Urea Nitrogen 14 mg/dL (7-20) Creatinine 3.0 mg/dL (0.6-1.0) Estimated GFR (Cockcroft-Gault) 18.6 BUN/Creatinine Ratio 5 (6-20) Glucose Level 188 mg/dL (70-99) Lactic Acid Level 1.3 mmol/L (0.4-2.0) Calcium Level 7.9 mg/dL (8.5-10.1) Total Bilirubin 0.3 mg/dL (0.2-1.0) Aspartate Amino Transf (AST/SGOT) 19 U/L (15-37) Alanine Aminotransferase (ALT/SGPT) 18 U/L (14-59) Alkaline Phosphatase 159 U/L (46-116) Total Protein 6.7 g/dL (6.4-8.2) Albumin 2.4 g/dL (3.4-5.0) Albumin/Globulin Ratio 0.6 (1.0-1.7) Laboratory Tests Test 09/07/16 18:02 White Blood Count 9.7 x10^3/uL (4.0-11.0) Red Blood Count 3.73 x10^6/uL (3.50-5.40) Hemoglobin 11.9 g/dL (12.0-15.5) Hematocrit 37.3 % (36.0-47.0) Mean Corpuscular Volume 100 fL (79-100) Mean Corpuscular Hemoglobin 32 pg (25-35) Mean Corpuscular Hemoglobin Concent 32 g/dL (31-37) Red Cell Distribution Width 15.5 % (11.5-14.5) Platelet Count 263 x10^3/uL (140-400) Neutrophils (%) (Auto) 83 % (31-73) Lymphocytes (%) (Auto) 6 % (24-48) Monocytes (%) (Auto) 11 % (0-9) Eosinophils (%) (Auto) 0 % (0-3) Basophils (%) (Auto) 0 % (0-3) Neutrophils # (Auto) 8.1 x10^3uL (1.8-7.7) Lymphocytes # (Auto) 0.5 x10^3/uL (1.0-4.8) Monocytes # (Auto) 1.0 x10^3/uL (0.0-1.1) Eosinophils # (Auto) 0.0 x10^3/uL (0.0-0.7) Basophils # (Auto) 0.0 x10^3/uL (0.0-0.2) Sodium Level 139 mmol/L (136-145) Potassium Level 3.4 mmol/L (3.5-5.1) Chloride Level 104 mmol/L (98-107) Carbon Dioxide Level 24 mmol/L (21-32) Anion Gap 11 (6-14) Blood Urea Nitrogen 14 mg/dL (7-20) Creatinine 3.0 mg/dL (0.6-1.0) Estimated GFR (Cockcroft-Gault) 18.6 BUN/Creatinine Ratio 5 (6-20) Glucose Level 188 mg/dL (70-99) Lactic Acid Level 1.3 mmol/L (0.4-2.0) Calcium Level 7.9 mg/dL (8.5-10.1) Total Bilirubin 0.3 mg/dL (0.2-1.0) Aspartate Amino Transf (AST/SGOT) 19 U/L (15-37) Alanine Aminotransferase (ALT/SGPT) 18 U/L (14-59) Alkaline Phosphatase 159 U/L (46-116) Total Protein 6.7 g/dL (6.4-8.2) Albumin 2.4 g/dL (3.4-5.0) Albumin/Globulin Ratio 0.6 (1.0-1.7) VTE Prophylaxis Ordered VTE Prophylaxis Devices: Yes VTE Pharmacological Prophylaxi: Yes Assessment/Plan Assessment/Plan 1. Hypoxic respi failure, POA 2. CAP 3. 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 DIstant smoking hx 5. SIRS, POA 6. MIld to mod PCM 7,. mild Hypokalemia Other chronic Diagnoses: chronic DIAstolic congestive heart failure. ESRD on HD MWF Diabetes mellitus Hypertension Peripheral artery disease. Hyperlipidemia. Diverticulosis chronic anemia , ESRD . Anxiety NOS abd aneurysm 4cm Plan: Admit 2 MN Nebs , cough med O2 support Renal and pulmo consult Resume meds PT/OT Ok for diet CAP coverage Send for sputum if able' Monitor recurrence of diarrhea or emesis, the former more since now on antibiotic PT/OT Immodium prn if that happens Replace K orally NUtrition consult for pCM DVT prophy Seen at ER 2 [facility] ER MD, pt and family CARMELA TAYLOR MD September 07, 2016 20:20
[2016-09-07] MEDS ORDERED: ONDANSETRON PF 4 MG/2 ML VIAL. ONE (20:24)
[2016-09-07] MEDS ORDERED: POTASSIUM CHLORIDE 20 MEQ TABLET.ER. PO ONE (20:30)
[2016-09-07] MEDS ORDERED: NON FORMULARY ITEM ([Albuterol Sulfate] (Ventolin Neb Soln) 2.5 MG) NEB PRN (20:30)
[2016-09-07] MEDS ORDERED: ONDANSETRON PF 4 MG/2 ML VIAL. IV ONE (20:30)
[2016-09-07] MEDS ORDERED: DEXTROSE 50% 25 GM / 50ML DISP.SYRIN. IV PRN (20:30)
[2016-09-07] MEDS ORDERED: NON FORMULARY ITEM (Albuterol Sulfate (Proair Hfa Inhaler) 2 PUFF) INH PRN (20:30)
[2016-09-07] MEDS: ALBUTEROL SULFATE 2.5 MG/3 ML NEBU. NEB PRN (20:50)
[2016-09-07] MEDS ORDERED: ATORVASTATIN CALCIUM 20 MG TABLET PO SCH (21:00)
[2016-09-07] MEDS ORDERED: METO100T2 PO (21:11)
[2016-09-07] MEDS: OXYBUTYNIN CHLORIDE 5 MG TABLET PO SCH (21:16)
[2016-09-07] MEDS: BENZONATATE 100 MG CAPSULE. PO SCH (21:17)
--- NOTE | 2016-09-07 21:19 | RAD ---
INDICATION: soa, COMPARISON: June 13, 2015 TECHNIQUE: Axial CT images obtained through the chest. No intravenous contrast One or more of the following individualized dose reduction techniques were utilized for this examination: 1. Automated exposure control; 2. Adjustment of the mA and/or kV according to patient size; 3. Use of iterative reconstruction technique. FINDINGS: There is some suspected emphysematous changes. No evidence of pneumothorax. No definite focal consolidation to suggest pneumonia. There are some linear opacity in the right middle lobe medially. There are some scattered pulmonary nodules measuring less than 4 mm. There is some edema seen to the soft tissues. Suspected thickening of the left adrenal gland measuring up to about 23 mm. Moderate to severe calcific atherosclerosis. Coronary artery calcific atherosclerosis. The heart is enlarged. There may be a small hiatal hernia. Mediastinal lymphadenopathy including in the precarinal region measuring up to 15 mm short axis. Degenerative changes spine IMPRESSION: 1. Suspected emphysematous changes. 2. Linear opacity in the right middle lobe. Most likely causes atelectasis given the morphology and location. 3. Mediastinal lymphadenopathy is again seen. Could be reactive or neoplastic in nature. 4. Calcific atherosclerosis. 5. Suspected left adrenal nodule. Incompletely characterized on this examination. If more complete characterization is desired an adrenal protocol MRI could be obtained. 6. There are some tiny pulmonary nodules bilaterally. Likely benign if the patient has no risk factors for malignancy but if the patient has risk factors a follow-up could be obtained in one year to ensure no change. Electronically signed by: Evangelista Ford MD (09/07/2016 9:15 PM)
[2016-09-07] MEDS: INSULIN DETEMIR 300 UNITS/3 ML INSULN.PEN. SQ SCH (21:23)
[2016-09-07] MEDS ORDERED: METO100T5 PO (21:25)
[2016-09-07] MEDS ORDERED: FURO40TA4 PO (21:53)
[2016-09-07] MEDS: HEPARIN PF for SUB-Q USE 5,000 UNIT/0.5 ML VIAL. SQ SCH (22:17)
[2016-09-07 23:00] VITALS: BP 125/56
[2016-09-07] MEDS: guaiFENesin DM 200MG/20MG 10 ML SYRUP PO PRN (23:28)
--- NOTE | 2016-09-08 02:24 | ACF ---
Admission Forms Criteria PNEUMONIA, COMMUNITY ACQUIRED Clinical Indications for Admission to Inpatient Care ( Place 'X' for any and all applicable criteria): Admission is indicated for ANY ONE of the following (1)(2)(3): [ ]I. Hypoxemia indicated by ANY ONE of the following: [ ]a) Oxygen saturation less than 90% while breathing room air [ ]b) PO2 less than 60 mm Hg (8.0 kPa) while breathing room air [ ]c) Chronic lung disease with significant deterioration from baseline oxygenation [ ]II. Appropriate diagnostic testing and treatment unavailable in outpatient or recovery facility (eg,testing or infection control measures unavailable(10) [ ]III. Moderate-risk or high-risk category patients (Pneumonia Severity Index (PSI) class IV or V, or CURB-65 score of 3 or greater). [ ]IV. Outpatient treatment failure as indicated by ANY ONE of the following(9) : [ ]a) Failure to respond to antibiotic (eg, resistant organism) [ ]b) Clinically significant adverse effects from medication (eg, vomiting) [ ]c) Complications of pneumonia (eg, empyema, bacteremia) [ ]d) Significant worsening of comorbid cond necessitating inpatient care (eg, chronic heart failure) [X ]V. Intermediate-risk category patients (eg, PSI class III or CURB-65 score 2) who do not improve with initial therapy and observation. [ ]. Immunocompromised patients (eg, AIDS, chronic steroid use) at moderate or high risk based on clinical evaluation. [ ]VII. Complicated pleural effusions (eg, exudative, loculated) [ ]VIII.Hemodynamic instability [ ] IX. Altered mental status that is severe or persistent. [ ]X. Dehydration that is severe or persistent. [ ]XI. Bacteremia [ ]XII. Respiratory finding (eg. tachypnea) that do not respond to outpatient or observation care treatment Extended stay beyond goal length of stay may be needed for (20) [ ]a) Unclear diagnosis [ ]b) Pleural disease [ ]c) Severe pneumonia or treatment failure (25 [ ]d) Respiratory failure (anticipate invasive or noninvasive ventilatory support) [ ]e) Abnormal serum electrolytes (serum Na concentration less than 135 mEq/L (mmol/L) (32)(33) [ ]f) Clinically significant comorbid illness (eg, heart failure, atrial fibrillation with rapid heart rate, alcohol withdrawal, renal insufficiency)(34)(35) [ ]g) Comorbid acute exacerbation of COPD(36) [ ]h) Concomitant diagnosis of malignancy that may be associated with malnutrition, immunologic impairment, or bronchial obstruction. [ ]i) Concomitant altered mental status [ ]j) Culture-identified Gram-negative or antibiotic-resistant organism (eg, Pseudomonas, methicillin-resistant Staphylococcus aureus)(30) [ ]k) Healthcare-associated pneumonia The original [email or web address] content created by [employer] has been revised. The portions of the content which have been revised are identified through the use of italic text or in bold, and [facility] has neither reviewed nor approved the modified material. All other unmodified content is copyright [email or web address]. Please see references footnoted in the original [facility] edition 2016 Admission Criteria Met?: Yes MARIA ELENA MICHEL Sep 08, 2016 02:24
[2016-09-08 03:00] VITALS: BP_SYST 106; BP_SYST 147; BP_DIAS 36; BP_DIAS 59
[2016-09-08] MEDS: HEPARIN PF for SUB-Q USE 5,000 UNIT/0.5 ML VIAL. SQ SCH ×3 (06:20→21:13)
--- NOTE | 2016-09-08 07:05 | EKG ---
[facility] [address] [place] [address] Test Date: 2016-09-07 Test Time: 17:03:51 Pat Name: WANDA PRABHAKAR Department: Room: [facility] Gender: F Skip Miner: : 1945 Requested By: MCKENZIE DUBOIS Order Number: [id number] Reading MD: Felix Bustamante Measurements Intervals Fischer Rate: 86 P: 38 OR: 142 QRS: -56 QRSD: 144 T: 16 QT: 398 QTc: 480 Interpretive Statements SINUS RHYTHM ABNORMAL LEFT AXIS DEVIATION RIGHT BUNDLE BRANCH BLOCK RVH WITH REPOLARIZATION ABNORMALITY CONSISTENT WITH INFERIOR INFARCT Electronically Signed On 09-11-2016 12:53:16 CDT by Felix Bustamante
[2016-09-08 07:27] VITALS: BP 112/61
[2016-09-08] MEDS ORDERED: POTASSIUM CHLORIDE 20 MEQ TABLET.ER. PO SCH (08:00)
[2016-09-08] MEDS: INSULIN ASPART 300 UNITS/3 ML INSULN.PEN SQ SCH ×3 (08:00→16:36)
--- NOTE | 2016-09-08 08:04 | RAD ---
Indication shortness of air. Difficulty breathing. A single view of the chest was obtained and is compared to an examination 07/12/2016. There is unchanged cardiomegaly. There are background changes compatible with emphysema or fibrosis. There is no consolidated pneumonia. Significant pleural fluid is not seen. There is no pneumothorax. There has not been a significant change in the appearance of the chest relative to the previous exam. IMPRESSION: Chronic changes. No acute finding seen
[2016-09-08] MEDS: OXYBUTYNIN CHLORIDE 5 MG TABLET PO SCH ×2 (08:43→09:00)
[2016-09-08] MEDS: CLOPIDOGREL BISULFATE 75 MG TABLET PO SCH ×2 (08:43→08:46)
[2016-09-08] MEDS: BENZONATATE 100 MG CAPSULE. PO SCH ×3 (08:43→21:07)
[2016-09-08] MEDS: FOLIC/VIT B COMP W-C (RENAL) TABLET. PO SCH (08:43)
[2016-09-08] MEDS: metOLazone 2.5 MG TABLET PO SCH ×2 (08:43→09:00)
[2016-09-08] MEDS: METOPROLOL SUCC 24HR ER 100 MG TAB.ER.24H. PO SCH (08:44)
[2016-09-08] MEDS: LISINOPRIL 40 MG TABLET. PO SCH ×3 (08:44→11:54)
[2016-09-08] MEDS: ASPIRIN ENTERIC COATED 325 MG TABLET.DR. PO SCH (08:44)
[2016-09-08] MEDS: LINAGLIPTIN 5 MG TABLET PO SCH ×2 (08:44→09:00)
[2016-09-08] MEDS: FLUoxetine HCL 20 MG CAPSULE PO SCH ×2 (08:45→09:00)
[2016-09-08] MEDS ORDERED: amLODIPine BESYLATE 5 MG TABLET PO SCH (09:00)
--- NOTE | 2016-09-08 09:19 | PDOC ---
Provider Note Provider Note dictated SHEILA ZHENG MD Sep 08, 2016 09:19
[2016-09-08] MEDS ORDERED: HYDR25TA PO (09:41)
[2016-09-08] MEDS ORDERED: BREO ELLIPTA 11 EACH IH (09:42)
--- NOTE | 2016-09-08 09:55 | PDOC ---
PROGRESS NOTES Chief Complaint Chief Complaint 1. Hypoxic respi failure, POA 2. CAP 3. 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 DIstant smoking hx 5. SIRS, POA 6. MIld to mod PCM 7,. mild Hypokalemia Other chronic Diagnoses: chronic DIAstolic congestive heart failure. ESRD on HD MWF Diabetes mellitus Hypertension Peripheral artery disease. Hyperlipidemia. Diverticulosis chronic anemia , ESRD . Anxiety NOS abd aneurysm 4cm History of Present Illness History of Present Illness Nebs , cough med and O2 support, will wean as able Renal and pulmo consult HD due tomorrrow PT/OT no diarrhea or emesis, Vitals Vitals Vital Signs Date Time Temp Pulse Resp B/P (MAP) Pulse Ox O2 Delivery O2 Flow Rate FiO2 09/08/16 08:45 80 112/61 09/08/16 07:27 97.5 18 99 Nasal Cannula 3.0 97.5 Physical Exam General: Alert, Oriented X3, Cooperative, No acute distress Heart: Regular rate Lungs: Other Abdomen: Normal bowel sounds, Soft, No tenderness, No hepatosplenomegaly, No masses Extremities: No clubbing, No cyanosis, No edema, Normal pulses, No tenderness/ swelling Skin: No rashes, No breakdown, No significant lesion Labs LABS Laboratory Tests Test 09/07/16 18:02 09/07/16 20:41 09/08/16 07:28 White Blood Count 9.7 x10^3/uL (4.0-11.0) Red Blood Count 3.73 x10^6/uL (3.50-5.40) Hemoglobin 11.9 g/dL (12.0-15.5) Hematocrit 37.3 % (36.0-47.0) Mean Corpuscular Volume 100 fL (79-100) Mean Corpuscular Hemoglobin 32 pg (25-35) Mean Corpuscular Hemoglobin Concent 32 g/dL (31-37) Red Cell Distribution Width 15.5 % (11.5-14.5) Platelet Count 263 x10^3/uL (140-400) Neutrophils (%) (Auto) 83 % (31-73) Lymphocytes (%) (Auto) 6 % (24-48) Monocytes (%) (Auto) 11 % (0-9) Eosinophils (%) (Auto) 0 % (0-3) Basophils (%) (Auto) 0 % (0-3) Neutrophils # (Auto) 8.1 x10^3uL (1.8-7.7) Lymphocytes # (Auto) 0.5 x10^3/uL (1.0-4.8) Monocytes # (Auto) 1.0 x10^3/uL (0.0-1.1) Eosinophils # (Auto) 0.0 x10^3/uL (0.0-0.7) Basophils # (Auto) 0.0 x10^3/uL (0.0-0.2) Sodium Level 139 mmol/L (136-145) Potassium Level 3.4 mmol/L (3.5-5.1) Chloride Level 104 mmol/L (98-107) Carbon Dioxide Level 24 mmol/L (21-32) Anion Gap 11 (6-14) Blood Urea Nitrogen 14 mg/dL (7-20) Creatinine 3.0 mg/dL (0.6-1.0) Estimated GFR (Cockcroft-Gault) 18.6 BUN/Creatinine Ratio 5 (6-20) Glucose Level 188 mg/dL (70-99) Lactic Acid Level 1.3 mmol/L (0.4-2.0) Calcium Level 7.9 mg/dL (8.5-10.1) Total Bilirubin 0.3 mg/dL (0.2-1.0) Aspartate Amino Transf (AST/SGOT) 19 U/L (15-37) Alanine Aminotransferase (ALT/SGPT) 18 U/L (14-59) Alkaline Phosphatase 159 U/L (46-116) Total Protein 6.7 g/dL (6.4-8.2) Albumin 2.4 g/dL (3.4-5.0) Albumin/Globulin Ratio 0.6 (1.0-1.7) Glucose (Fingerstick) 173 mg/dL (70-99) 84 mg/dL (70-99) Review of Systems Review of Systems cough w. sputum dyspnea Assessment and Plan Assessmemt and Plan Problems Medical Problems: (1) Community acquired pneumonia Status: Acute (2) ESRD (end stage renal disease) on dialysis Status: Acute (3) Hypoxia Status: Acute Problems: Comment Review of Relevant I have reviewed the following items mykel (where applicable) has been applied. Labs Laboratory Tests Test 09/07/16 18:02 09/07/16 20:41 6/1/17 07:28 White Blood Count 9.7 x10^3/uL (4.0-11.0) Red Blood Count 3.73 x10^6/uL (3.50-5.40) Hemoglobin 11.9 g/dL (12.0-15.5) Hematocrit 37.3 % (36.0-47.0) Mean Corpuscular Volume 100 fL (79-100) Mean Corpuscular Hemoglobin 32 pg (25-35) Mean Corpuscular Hemoglobin Concent 32 g/dL (31-37) Red Cell Distribution Width 15.5 % (11.5-14.5) Platelet Count 263 x10^3/uL (140-400) Neutrophils (%) (Auto) 83 % (31-73) Lymphocytes (%) (Auto) 6 % (24-48) Monocytes (%) (Auto) 11 % (0-9) Eosinophils (%) (Auto) 0 % (0-3) Basophils (%) (Auto) 0 % (0-3) Neutrophils # (Auto) 8.1 x10^3uL (1.8-7.7) Lymphocytes # (Auto) 0.5 x10^3/uL (1.0-4.8) Monocytes # (Auto) 1.0 x10^3/uL (0.0-1.1) Eosinophils # (Auto) 0.0 x10^3/uL (0.0-0.7) Basophils # (Auto) 0.0 x10^3/uL (0.0-0.2) Sodium Level 139 mmol/L (136-145) Potassium Level 3.4 mmol/L (3.5-5.1) Chloride Level 104 mmol/L (98-107) Carbon Dioxide Level 24 mmol/L (21-32) Anion Gap 11 (6-14) Blood Urea Nitrogen 14 mg/dL (7-20) Creatinine 3.0 mg/dL (0.6-1.0) Estimated GFR (Cockcroft-Gault) 18.6 BUN/Creatinine Ratio 5 (6-20) Glucose Level 188 mg/dL (70-99) Lactic Acid Level 1.3 mmol/L (0.4-2.0) Calcium Level 7.9 mg/dL (8.5-10.1) Total Bilirubin 0.3 mg/dL (0.2-1.0) Aspartate Amino Transf (AST/SGOT) 19 U/L (15-37) Alanine Aminotransferase (ALT/SGPT) 18 U/L (14-59) Alkaline Phosphatase 159 U/L (46-116) Total Protein 6.7 g/dL (6.4-8.2) Albumin 2.4 g/dL (3.4-5.0) Albumin/Globulin Ratio 0.6 (1.0-1.7) Glucose (Fingerstick) 173 mg/dL (70-99) 84 mg/dL (70-99) Laboratory Tests Test 09/07/16 18:02 09/07/16 20:41 09/08/16 07:28 White Blood Count 9.7 x10^3/uL (4.0-11.0) Red Blood Count 3.73 x10^6/uL (3.50-5.40) Hemoglobin 11.9 g/dL (12.0-15.5) Hematocrit 37.3 % (36.0-47.0) Mean Corpuscular Volume 100 fL (79-100) Mean Corpuscular Hemoglobin 32 pg (25-35) Mean Corpuscular Hemoglobin Concent 32 g/dL (31-37) Red Cell Distribution Width 15.5 % (11.5-14.5) Platelet Count 263 x10^3/uL (140-400) Neutrophils (%) (Auto) 83 % (31-73) Lymphocytes (%) (Auto) 6 % (24-48) Monocytes (%) (Auto) 11 % (0-9) Eosinophils (%) (Auto) 0 % (0-3) Basophils (%) (Auto) 0 % (0-3) Neutrophils # (Auto) 8.1 x10^3uL (1.8-7.7) Lymphocytes # (Auto) 0.5 x10^3/uL (1.0-4.8) Monocytes # (Auto) 1.0 x10^3/uL (0.0-1.1) Eosinophils # (Auto) 0.0 x10^3/uL (0.0-0.7) Basophils # (Auto) 0.0 x10^3/uL (0.0-0.2) Sodium Level 139 mmol/L (136-145) Potassium Level 3.4 mmol/L (3.5-5.1) Chloride Level 104 mmol/L (98-107) Carbon Dioxide Level 24 mmol/L (21-32) Anion Gap 11 (6-14) Blood Urea Nitrogen 14 mg/dL (7-20) Creatinine 3.0 mg/dL (0.6-1.0) Estimated GFR (Cockcroft-Gault) 18.6 BUN/Creatinine Ratio 5 (6-20) Glucose Level 188 mg/dL (70-99) Lactic Acid Level 1.3 mmol/L (0.4-2.0) Calcium Level 7.9 mg/dL (8.5-10.1) Total Bilirubin 0.3 mg/dL (0.2-1.0) Aspartate Amino Transf (AST/SGOT) 19 U/L (15-37) Alanine Aminotransferase (ALT/SGPT) 18 U/L (14-59) Alkaline Phosphatase 159 U/L (46-116) Total Protein 6.7 g/dL (6.4-8.2) Albumin 2.4 g/dL (3.4-5.0) Albumin/Globulin Ratio 0.6 (1.0-1.7) Glucose (Fingerstick) 173 mg/dL (70-99) 84 mg/dL (70-99) Medications Current Medications Ceftriaxone Sodium 50 ml @ 100 mls/hr 1X ONCE IV Last administered on 19:42; Start 09/07/16 at 19:15; Stop 09/07/16 at 19:44; Status DC Azithromycin 250 ml @ 250 mls/hr 1X ONCE IV Last administered on 09/07/16 20 :16; Start 09/07/16 at 19:15; Stop 09/07/16 at 20:14; Status DC Amlodipine Besylate (Norvasc) 5 mg DAILY PO Last administered on 09/08/16 08:45 ; Start 09/08/16 at 09:00 Aspirin (Ecotrin) 325 mg DAILYWBKFT PO Last administered on 09/08/16 08:44; Start 09/08/16 at 08:00 Atorvastatin Calcium (Lipitor) 20 mg QHS PO Last administered on 09/07/16 21: 16; Start 09/07/16 at 21:00 Clopidogrel Bisulfate (Plavix) 75 mg DAILYWBKFT PO Last administered on 08:43; Start 09/08/16 at 08:00 Vitamin B Complex/ Vitamin C (Marina-Jayme) 1 tab DAILY PO Last administered on 08:43; Start 09/08/16 at 09:00 Linagliptin (Tradjenta) 5 mg DAILY PO ; Start 09/08/16 at 09:00 Lisinopril (Prinivil) 40 mg DAILY PO ; Start 09/08/16 at 09:00 Metolazone (Zaroxolyn) 2.5 mg DAILY PO ; Start 09/08/16 at 09:00 Metoprolol Succinate (Toprol Xl) 100 mg DAILY PO Last administered on 09/08/16 08:44; Start 09/08/16 at 09:00 Potassium Chloride (Klor-Con) 20 meq DAILYWBKFT PO ; Start 09/08/16 at 08:00 Non-Formulary Medication 2 puff PRN Q6HRS PRN INH SHORTNESS OF BREATH; Start at 20:30; Status UNV Fluoxetine HCl (PROzac) 20 mg DAILY PO ; Start 09/08/16 at 09:00 Insulin Detemir (Levemir) 20 units QHS SQ Last administered on 09/07/16 21:23 ; Start 09/07/16 at 21:00 Oxybutynin Chloride (Ditropan) 5 mg [id number] PO Last administered on 09/07/16 21 :16; Start 09/07/16 at 21:00 Non-Formulary Medication 2.5 mg PRN Q4HRS PRN NEB SHORTNESS OF BREATH; Start at 20:30; Status UNV Insulin Aspart (NovoLOG) 0-9 UNITS TIDWMEALS SQ ; Start 09/08/16 at 08:00 Dextrose (Dextrose 50%-Water Syringe) 12.5 gm PRN Q15MIN PRN IV SEE COMMENTS; Start 09/07/16 at 20:30 Heparin Sodium (Porcine) (Heparin Sq) 5,000 unit Q8HRS SQ Last administered on 09/08/16 06:20; Start 09/07/16 at 22:00 Ceftriaxone Sodium 1 gm/ Sodium Chloride 50 ml @ 100 mls/hr Q24H IV ; Start 09/08/16 at 17:00 Azithromycin 250 mg/Sodium Chloride 250 ml @ 250 mls/hr Q24H IV ; Start at 17:00 Benzonatate (Tessalon Perle) 100 mg [id number] PO Last administered on 09/08/16 08: 43; Start 09/07/16 at 21:00 Guaifenesin (Robitussin Dm) 10 ml PRN Q6HRS PRN PO COUGH Last administered on 23:28; Start 09/07/16 at 20:30 Potassium Chloride (Klor-Con) 20 meq 1X ONCE PO Last administered on 21:16; Start 09/07/16 at 20:30; Stop 09/07/16 at 20:31; Status DC Ondansetron HCl (Zofran) 4 mg STK-MED ONCE .ROUTE ; Start 09/07/16 at 20:24; Stop 09/07/16 at 20:25; Status DC Albuterol Sulfate (Ventolin Neb Soln) 2.5 mg PRN Q4HRS PRN NEB SHORTNESS OF BREATH Last administered on 09/07/16 20:50; Start 09/07/16 at 20:30 Ondansetron HCl (Zofran) 4 mg 1X ONCE IV Last administered on 09/07/16 20:29 ; Start 09/07/16 at 20:30; Stop 09/07/16 at 20:31; Status DC Albuterol/ Ipratropium (Duoneb) 3 ml RTQID NEB ; Start 09/08/16 at 12:00 Active Scripts Active Lisinopril 20 Mg Tablet 20 Tab PO DAILY [Albuterol Sulfate] 2.5 MG/3 ML Nebu 2.5 Mg NEB PRN Q4HRS PRN Tradjenta (Linagliptin) 5 Mg Tablet 5 Mg PO DAILY Reported Breo Ellipta 100-25 Mcg Inh (Fluticasone/Vilanterol) 1 Each Aer.pow.ba 1 Puff IH DAILY Hydroxyzine Hcl 25 Mg Tablet 1 Tab PO 1X PRN PRN Furosemide 40 Mg Tablet 1 Tab PO DAILY Toprol Xl (Metoprolol Succinate) 100 Mg Tab.er.24h 100 Mg PO DAILY Amlodipine Besylate 5 Mg Tablet 10 Mg PO DAILY Proair Hfa Inhaler (Albuterol Sulfate) 8.5 Gm Hfa.aer.ad 2 Puff INH PRN Q6HRS PRN Lantus Solostar (Insulin Glargine,Hum.rec.anlog) 100 Unit/1 Ml Insuln.pen 20 Unit SQ QHS Atorvastatin Calcium 20 Mg Tablet 40 Mg PO DAILY Aspirin 325 Mg Tablet 1 Tab PO DAILY Plavix (Clopidogrel Bisulfate) 75 Mg Tablet 75 Mg PO DAILY Vitals/I & O Vital Sign - Last 24 Hours 09/07/16 09/07/16 09/07/16 09/07/16 17:00 17:33 18:03 18:33 Temp 98.1 98.1 Pulse 90 86 82 84 Resp 28 20 20 24 B/P (MAP) 181/86 (117) 162/84 (110) 146/71 (96) 116/64 (81) Pulse Ox 98 99 99 98 O2 Delivery Nasal Cannula Nasal Cannula O2 Flow Rate 3.0 3.0 09/07/16 09/07/16 09/07/16 09/07/16 19:03 19:33 20:15 20:21 Temp 98.6 98.6 Pulse 84 86 89 84 Resp 20 20 18 18 B/P (MAP) 181/76 (111) 188/93 (124) 139/55 (83) 173/84 (113) Pulse Ox 99 98 90 99 O2 Delivery Nasal Cannula Room Air Nasal Cannula O2 Flow Rate 3.0 3.0 09/07/16 09/07/16 09/08/16 09/08/16 20:50 23:00 03:00 07:27 Temp 99.0 98.1 97.5 99.0 98.1 97.5 Pulse 79 82 80 Resp 18 18 18 B/P (MAP) 125/56 (79) 147/59 (88) 112/61 (78) Pulse Ox 91 93 99 O2 Delivery Nasal Cannula Nasal Cannula Nasal Cannula Nasal Cannula O2 Flow Rate 3.0 3.0 3.0 3.0 09/08/16 09/08/16 08:44 08:45 Pulse 80 80 B/P (MAP) 112/61 112/61 Intake and Output 09/07/16 09/07/16 09/08/16 15:00 23:00 07:00 Intake Total 50 ml Output Total 0 ml Balance 50 ml 0 ml JOSE ONEIL MD Sep 08, 2016 09:55
[2016-09-08] MEDS ORDERED: FUROSEMIDE 20 MG TABLET PO SCH (10:00)
--- NOTE | 2016-09-08 10:06 | CONS ---
DATE OF CONSULTATION: 09/08/2016 PULMONARY CONSULTATION ATTENDING PHYSICIAN: Dr. Hill. REASON FOR CONSULTATION: Dyspnea. HISTORY OF PRESENT ILLNESS: The patient is a 70-year-old female who has history of chronic respiratory failure. She is on home oxygen at 3 liters. She smoked for 30 years. She quit 7 years ago. She came to the hospital with complaint of increasing shortness of breath. She also had a cough productive of yellow sputum. The patient was hypoxic in the ER with saturation in the mid 70s with oxygen. She was initially placed on oxygen at a flow of 4 liters and subsequently down to 3 liters. She states this is her baseline. I have reviewed the patient's chest x-ray. I did not see any obvious infiltrates. The patient underwent a noncontrast CT chest, which was also reviewed by me. There was evidence of emphysema. There was some atelectasis in the right middle lobe. There was mild mediastinal adenopathy and there were very faint few nodules of 4 mm in size, which could be parenchymal scars as well. There is a possible left adrenal nodule. I have been asked to see her for further evaluation. PAST MEDICAL HISTORY: Significant for history of CAD, history of CHF, hypertension, hyperlipidemia, history of COPD, history of chronic respiratory failure on home oxygen at 3 liters, history of diverticulosis, anemia, diabetes and chronic renal insufficiency. PAST SURGICAL HISTORY: Including appendectomy and arthroscopy. FAMILY HISTORY: Coronary artery disease, diabetes and hypertension. ALLERGIES: IODINE. MEDICATIONS: All reviewed as listed in the MRAD including antibiotics, azithromycin and Rocephin. REVIEW OF SYSTEMS: Twelve-point system obtained. Pertinent positives discussed in history of present illness, otherwise noncontributory. All systems that were negative were reviewed as well. PHYSICAL EXAMINATION: GENERAL: She is awake, following commands. VITAL SIGNS: Blood pressure 173/84, pulse ox 99% on 3 liters, afebrile. HEENT: Sclerae nonicteric. NECK: Supple. LUNGS: Diminished breath sounds. CARDIOVASCULAR: Regular rate and rhythm. ABDOMEN: Soft, obese. EXTREMITIES: With no pitting edema. LABORATORY DATA: Reviewed. White cell count 9.7, hemoglobin 11.9, platelets are 263. BUN 14, creatinine 3.0. IMPRESSION: 1. Dyspnea secondary to acute exacerbation of chronic obstructive pulmonary disease. 2. Acute on chronic hypoxic respiratory failure secondary to acute exacerbation of chronic obstructive pulmonary disease. 3. Acute bronchitis with no definite pneumonia seen on the chest x-ray or CT chest. 4. Abnormal CT chest which showed some atelectasis in the right middle lobe. There was also some nonspecific 4 mm nodules in the lungs, which maybe parenchymal scars. I would recommend having a followup CT in 6-8 months. There is mild mediastinal adenopathy, which is probably reactive. 5. Chronic renal insufficiency. RECOMMENDATIONS: 1. Continue with present bronchodilators. 2. Continue with present antibiotics. 3. DVT prophylaxis with subcutaneous heparin. 4. She does have a weight loss of about 30 pounds in the last 6 months. I do not see any worrisome abnormality on the CT chest. If clinically indicated, she may have CT abdomen and pelvis. I will leave up to PCP. 5. We will follow along with you. SHEILA ZHENG MD DR: AJITH/courtney JOB#: [id number] / [id number] SAUL
[2016-09-08] MEDS ORDERED: MAGNESIUM SULFATE 2GM 50 ML IV PRN (10:15)
--- NOTE | 2016-09-08 10:16 | PDOC2 ---
CONSULT Date of Consult Date of Consult DATE: 09/08/16 TIME: 10:11 Reason for Consult Reason for Consult: ESRD Referring Physician Referring Physician: Dr Hill Identification/Chief Complaint Chief Complaint SOB Problems: Source Source: Chart review, Patient History of Present Illness Reason for Visit: as dictated Past Medical History Cardiovascular: CAD, CHF, HTN, Hyperlipidemia, Other Pulmonary: Asthma, COPD, Other CENTRAL NERVOUS SYSTEM: Other GI: Diverticulosis Heme/Onc: Anemia NOS Psych: Anxiety Rheumatologic: No pertinent hx Infectious disease: No pertinent hx Renal/: Chronic renal failure Endocrine: Diabetes Past Surgical History Past Surgical History: Appendectomy, Arthroscopy, Other Family History Family History: Coronary Artery Disease, Diabetes, Hypertension Social History Quit ALCOHOL: none Drugs: None Lives: with Family Domestic Violence: Neg Current Problem List Problem List Problems Medical Problems: (1) Community acquired pneumonia Status: Acute (2) ESRD (end stage renal disease) on dialysis Status: Acute (3) Hypoxia Status: Acute Current Medications Current Medications Current Medications Ceftriaxone Sodium 50 ml @ 100 mls/hr 1X ONCE IV Last administered on 19:42; Start 09/07/16 at 19:15; Stop 09/07/16 at 19:44; Status DC Azithromycin 250 ml @ 250 mls/hr 1X ONCE IV Last administered on 09/07/16 20 :16; Start 09/07/16 at 19:15; Stop 09/07/16 at 20:14; Status DC Amlodipine Besylate (Norvasc) 5 mg DAILY PO Last administered on 09/08/16 08:45 ; Start 09/08/16 at 09:00 Aspirin (Ecotrin) 325 mg DAILYWBKFT PO Last administered on 09/08/16 08:44; Start 09/08/16 at 08:00 Atorvastatin Calcium (Lipitor) 20 mg QHS PO Last administered on 09/07/16 21: 16; Start 09/07/16 at 21:00 Clopidogrel Bisulfate (Plavix) 75 mg DAILYWBKFT PO Last administered on 08:43; Start 09/08/16 at 08:00 Vitamin B Complex/ Vitamin C (Marina-Jayme) 1 tab DAILY PO Last administered on 08:43; Start 09/08/16 at 09:00 Linagliptin (Tradjenta) 5 mg DAILY PO ; Start 09/08/16 at 09:00 Lisinopril (Prinivil) 40 mg DAILY PO ; Start 09/08/16 at 09:00 Metolazone (Zaroxolyn) 2.5 mg DAILY PO ; Start 09/08/16 at 09:00 Metoprolol Succinate (Toprol Xl) 100 mg DAILY PO Last administered on 09/08/16 08:44; Start 09/08/16 at 09:00 Potassium Chloride (Klor-Con) 20 meq DAILYWBKFT PO ; Start 09/08/16 at 08:00; Stop 09/08/16 at 09:53; Status DC Non-Formulary Medication 2 puff PRN Q6HRS PRN INH SHORTNESS OF BREATH; Start at 20:30; Status UNV Fluoxetine HCl (PROzac) 20 mg DAILY PO ; Start 09/08/16 at 09:00 Insulin Detemir (Levemir) 20 units QHS SQ Last administered on 09/07/16 21:23 ; Start 09/07/16 at 21:00 Oxybutynin Chloride (Ditropan) 5 mg [id number] PO Last administered on 09/07/16 21 :16; Start 09/07/16 at 21:00 Non-Formulary Medication 2.5 mg PRN Q4HRS PRN NEB SHORTNESS OF BREATH; Start at 20:30; Status UNV Insulin Aspart (NovoLOG) 0-9 UNITS TIDWMEALS SQ ; Start 09/08/16 at 08:00 Dextrose (Dextrose 50%-Water Syringe) 12.5 gm PRN Q15MIN PRN IV SEE COMMENTS; Start 09/07/16 at 20:30 Heparin Sodium (Porcine) (Heparin Sq) 5,000 unit Q8HRS SQ Last administered on 09/08/16 06:20; Start 09/07/16 at 22:00 Ceftriaxone Sodium 1 gm/ Sodium Chloride 50 ml @ 100 mls/hr Q24H IV ; Start 09/08/16 at 17:00 Azithromycin 250 mg/Sodium Chloride 250 ml @ 250 mls/hr Q24H IV ; Start at 17:00 Benzonatate (Tessalon Perle) 100 mg [id number] PO Last administered on 09/08/16 08: 43; Start 09/07/16 at 21:00 Guaifenesin (Robitussin Dm) 10 ml PRN Q6HRS PRN PO COUGH Last administered on 23:28; Start 09/07/16 at 20:30 Potassium Chloride (Klor-Con) 20 meq 1X ONCE PO Last administered on 21:16; Start 09/07/16 at 20:30; Stop 09/07/16 at 20:31; Status DC Ondansetron HCl (Zofran) 4 mg STK-MED ONCE .ROUTE ; Start 09/07/16 at 20:24; Stop 09/07/16 at 20:25; Status DC Albuterol Sulfate (Ventolin Neb Soln) 2.5 mg PRN Q4HRS PRN NEB SHORTNESS OF BREATH Last administered on 09/07/16 20:50; Start 09/07/16 at 20:30 Ondansetron HCl (Zofran) 4 mg 1X ONCE IV Last administered on 09/07/16 20:29 ; Start 09/07/16 at 20:30; Stop 09/07/16 at 20:31; Status DC Albuterol/ Ipratropium (Duoneb) 3 ml RTQID NEB ; Start 09/08/16 at 12:00 Furosemide (Lasix) 20 mg DAILY PO ; Start 09/08/16 at 10:00 Active Scripts Active Lisinopril 20 Mg Tablet 20 Tab PO DAILY [Albuterol Sulfate] 2.5 MG/3 ML Nebu 2.5 Mg NEB PRN Q4HRS PRN Tradjenta (Linagliptin) 5 Mg Tablet 5 Mg PO DAILY Reported Breo Ellipta 100-25 Mcg Inh (Fluticasone/Vilanterol) 1 Each Aer.pow.ba 1 Puff IH DAILY Hydroxyzine Hcl 25 Mg Tablet 1 Tab PO 1X PRN PRN Furosemide 40 Mg Tablet 1 Tab PO DAILY Toprol Xl (Metoprolol Succinate) 100 Mg Tab.er.24h 100 Mg PO DAILY Amlodipine Besylate 5 Mg Tablet 10 Mg PO DAILY Proair Hfa Inhaler (Albuterol Sulfate) 8.5 Gm Hfa.aer.ad 2 Puff INH PRN Q6HRS PRN Lantus Solostar (Insulin Glargine,Hum.rec.anlog) 100 Unit/1 Ml Insuln.pen 20 Unit SQ QHS Atorvastatin Calcium 20 Mg Tablet 40 Mg PO DAILY Aspirin 325 Mg Tablet 1 Tab PO DAILY Plavix (Clopidogrel Bisulfate) 75 Mg Tablet 75 Mg PO DAILY Allergies Allergies: Coded Allergies: Iodinated Contrast Media - Oral and (Verified Allergy, Intermediate, ) ROS Review of System GEN: no Fevers no Chills EYES: no new Visual Complaints ENT: no EN Drainage no Hearing deficiets CVS: no Orthopnea no CP RESP: + SOB min TAYLOR + Cough and Greyish phlegm GI: no Nausea no Vomiting : no Dysuria no Urgency HEME: no easy bruising no Palp Ly Nodes NEURO no Focal Weakness no Sz PSYCH: no Suicidal Ideation no Depression SKIN: no Rashes ENDO: no Polyuria or Polydipsia no Hot/Cold Intolerance MU SK: occ Arthraigia no Myalgia Physical Exam Physical Exam General Appearance: Awake Alert Oriented x 3 In no Distress Eyes: VIsion Unchanged Conjunctiva Normal EN: No EN Drainage Mucous Memb. moist Neck: min JVD + JVP Supple no Thyromegaly CVS: S1 S2 + Murmur No Gallop No Rub tr Edema Resp: few basal Rales occ Rhonchi no Acc. Muscle use; dec AE GI: BS +ve NO Bruit Non Tender Non Distended : no CVA tenderness; no Suprapubic Tenderness SKIN: no Rashes Breast Exam deferred Mu.Sk: Adequate ROM no Muscle Atrophy Heme: Unable to palpate Obvious LAD no palp Splenomegaly NEURO: Good Strength and Tone Cranial Nerves II - XII grossly intact Psych: not Depressed no Active hallucination Vital Signs Vital Signs Date Time Temp Pulse Resp B/P (MAP) Pulse Ox O2 Delivery O2 Flow Rate FiO2 09/08/16 08:45 80 112/61 09/08/16 08:20 Nasal Cannula 3.0 09/08/16 07:27 97.5 18 99 97.5 Assessment & Plan ESRD: Current FLuid and E-lyte status does not necessitate emergent need for Dialysis. Will re-evaluate for Dialysis in am and continue on MWF schedule. SOb - AECOPD per Pulm Anemia: no Epogen for hgb > 11; Transfuse with next HD as needed. HTN: Current BP meds reviewed. See orders for changes. Bone & Mineral: Follow phos and alter binder regimen as needed Low K - suspect post HD low Discussed Plan of Care and prognosis with pt Labs Labs Laboratory Tests Test 09/07/16 18:02 09/07/16 20:41 09/08/16 07:28 White Blood Count 9.7 x10^3/uL (4.0-11.0) Red Blood Count 3.73 x10^6/uL (3.50-5.40) Hemoglobin 11.9 g/dL (12.0-15.5) Hematocrit 37.3 % (36.0-47.0) Mean Corpuscular Volume 100 fL (79-100) Mean Corpuscular Hemoglobin 32 pg (25-35) Mean Corpuscular Hemoglobin Concent 32 g/dL (31-37) Red Cell Distribution Width 15.5 % (11.5-14.5) Platelet Count 263 x10^3/uL (140-400) Neutrophils (%) (Auto) 83 % (31-73) Lymphocytes (%) (Auto) 6 % (24-48) Monocytes (%) (Auto) 11 % (0-9) Eosinophils (%) (Auto) 0 % (0-3) Basophils (%) (Auto) 0 % (0-3) Neutrophils # (Auto) 8.1 x10^3uL (1.8-7.7) Lymphocytes # (Auto) 0.5 x10^3/uL (1.0-4.8) Monocytes # (Auto) 1.0 x10^3/uL (0.0-1.1) Eosinophils # (Auto) 0.0 x10^3/uL (0.0-0.7) Basophils # (Auto) 0.0 x10^3/uL (0.0-0.2) Sodium Level 139 mmol/L (136-145) Potassium Level 3.4 mmol/L (3.5-5.1) Chloride Level 104 mmol/L (98-107) Carbon Dioxide Level 24 mmol/L (21-32) Anion Gap 11 (6-14) Blood Urea Nitrogen 14 mg/dL (7-20) Creatinine 3.0 mg/dL (0.6-1.0) Estimated GFR (Cockcroft-Gault) 18.6 BUN/Creatinine Ratio 5 (6-20) Glucose Level 188 mg/dL (70-99) Lactic Acid Level 1.3 mmol/L (0.4-2.0) Calcium Level 7.9 mg/dL (8.5-10.1) Total Bilirubin 0.3 mg/dL (0.2-1.0) Aspartate Amino Transf (AST/SGOT) 19 U/L (15-37) Alanine Aminotransferase (ALT/SGPT) 18 U/L (14-59) Alkaline Phosphatase 159 U/L (46-116) Total Protein 6.7 g/dL (6.4-8.2) Albumin 2.4 g/dL (3.4-5.0) Albumin/Globulin Ratio 0.6 (1.0-1.7) Glucose (Fingerstick) 173 mg/dL (70-99) 84 mg/dL (70-99) Laboratory Tests Test 09/07/16 18:02 09/07/16 20:41 09/08/16 07:28 White Blood Count 9.7 x10^3/uL (4.0-11.0) Red Blood Count 3.73 x10^6/uL (3.50-5.40) Hemoglobin 11.9 g/dL (12.0-15.5) Hematocrit 37.3 % (36.0-47.0) Mean Corpuscular Volume 100 fL (79-100) Mean Corpuscular Hemoglobin 32 pg (25-35) Mean Corpuscular Hemoglobin Concent 32 g/dL (31-37) Red Cell Distribution Width 15.5 % (11.5-14.5) Platelet Count 263 x10^3/uL (140-400) Neutrophils (%) (Auto) 83 % (31-73) Lymphocytes (%) (Auto) 6 % (24-48) Monocytes (%) (Auto) 11 % (0-9) Eosinophils (%) (Auto) 0 % (0-3) Basophils (%) (Auto) 0 % (0-3) Neutrophils # (Auto) 8.1 x10^3uL (1.8-7.7) Lymphocytes # (Auto) 0.5 x10^3/uL (1.0-4.8) Monocytes # (Auto) 1.0 x10^3/uL (0.0-1.1) Eosinophils # (Auto) 0.0 x10^3/uL (0.0-0.7) Basophils # (Auto) 0.0 x10^3/uL (0.0-0.2) Sodium Level 139 mmol/L (136-145) Potassium Level 3.4 mmol/L (3.5-5.1) Chloride Level 104 mmol/L (98-107) Carbon Dioxide Level 24 mmol/L (21-32) Anion Gap 11 (6-14) Blood Urea Nitrogen 14 mg/dL (7-20) Creatinine 3.0 mg/dL (0.6-1.0) Estimated GFR (Cockcroft-Gault) 18.6 BUN/Creatinine Ratio 5 (6-20) Glucose Level 188 mg/dL (70-99) Lactic Acid Level 1.3 mmol/L (0.4-2.0) Calcium Level 7.9 mg/dL (8.5-10.1) Total Bilirubin 0.3 mg/dL (0.2-1.0) Aspartate Amino Transf (AST/SGOT) 19 U/L (15-37) Alanine Aminotransferase (ALT/SGPT) 18 U/L (14-59) Alkaline Phosphatase 159 U/L (46-116) Total Protein 6.7 g/dL (6.4-8.2) Albumin 2.4 g/dL (3.4-5.0) Albumin/Globulin Ratio 0.6 (1.0-1.7) Glucose (Fingerstick) 173 mg/dL (70-99) 84 mg/dL (70-99) WENDI SUAREZ MD Sep 08, 2016 10:16
[2016-09-08 10:45] VITALS: BP 125/91
[2016-09-08] MEDS: FUROSEMIDE 40 MG TABLET. PO SCH (11:54)
[2016-09-08] MEDS: IPRATRPIUM/ALBUTEROL 0.5/2.5MG 3 ML NEBU. NEB SCH ×4 (11:55→19:09)
[2016-09-08 15:15] VITALS: BP 139/58
[2016-09-08] MEDS: guaiFENesin DM 200MG/20MG 10 ML SYRUP PO PRN (16:54)
[2016-09-08] MEDS: AZITHROMYCIN 250 MG in IV NORMAL SALINE 250ML 250 ML IV SCH (17:00)
[2016-09-08 19:00] VITALS: BP 139/61
[2016-09-08] MEDS: ATORVASTATIN CALCIUM 40 MG TABLET. PO SCH (21:07)
[2016-09-08] MEDS: INSULIN DETEMIR 300 UNITS/3 ML INSULN.PEN. SQ SCH (21:13)
[2016-09-08 23:00] VITALS: BP 120/56
[2016-09-09] MEDS: guaiFENesin DM 200MG/20MG 10 ML SYRUP PO PRN ×2 (02:33→22:22)
--- NOTE | 2016-09-09 02:56 | CONS ---
DATE OF CONSULTATION: PRIMARY PHYSICIAN: Dr. Hill. REASON FOR CONSULTATION: ESRD dialysis. HISTORY OF PRESENT ILLNESS: The patient is a pleasant 70-year-old -[place] female, who presented to the ER yesterday with increasing shortness of breath. She was at the outpatient dialysis and was brought down to a dry weight. She however was continuing to have shortness of breath and was diagnosed with acute exacerbation of her chronic COPD. She is bringing up yellow-gaston thick sputum also. No fevers or chills at this time. Shortness of breath is much better after IV nebulizer treatments. She denies any other problems from the dialysis standpoint. She dialyzes on Monday, Monday, and Monday. We were asked to assist with the same. For rest of the details, see electronic records. WENDI SUAREZ MD DR: MARNI/courtney JOB#: [id number] / [id number]
[2016-09-09 03:00] VITALS: BP 127/59
[2016-09-09] MEDS: HEPARIN PF for SUB-Q USE 5,000 UNIT/0.5 ML VIAL. SQ SCH ×3 (06:07→22:35)
[2016-09-09 06:26] LABS: ALBUMIN 2.2 g/dL (3.4-5.0); CALCIUM 7.9 mg/dL (8.5-10.1); CREATININE 4.8 mg/dL (0.6-1.0); GFR 10.8; MAGNESIUM 1.9 mg/dL (1.8-2.4); PHOSPHORUS 4.6 mg/dL (2.6-4.7); POTASSIUM 4.3 mmol/L (3.5-5.1)
[2016-09-09 07:00] VITALS: BP 140/62
[2016-09-09] MEDS: IPRATRPIUM/ALBUTEROL 0.5/2.5MG 3 ML NEBU. NEB SCH ×4 (07:31→19:47)
[2016-09-09] MEDS: INSULIN ASPART 300 UNITS/3 ML INSULN.PEN SQ SCH ×3 (08:00→17:00)
[2016-09-09] MEDS: ASPIRIN ENTERIC COATED 325 MG TABLET.DR. PO SCH (09:17)
[2016-09-09] MEDS: FUROSEMIDE 40 MG TABLET. PO SCH (09:17)
[2016-09-09] MEDS: amLODIPine BESYLATE 10 MG TABLET PO SCH (09:18)
[2016-09-09] MEDS: BENZONATATE 100 MG CAPSULE. PO SCH ×3 (09:19→22:28)
[2016-09-09] MEDS: FOLIC/VIT B COMP W-C (RENAL) TABLET. PO SCH (09:19)
[2016-09-09] MEDS: LISINOPRIL 40 MG TABLET. PO SCH (09:19)
[2016-09-09] MEDS: METOPROLOL SUCC 24HR ER 100 MG TAB.ER.24H. PO SCH (09:20)
[2016-09-09] MEDS: LINAGLIPTIN 5 MG TABLET PO SCH (09:20)
[2016-09-09] MEDS: CLOPIDOGREL BISULFATE 75 MG TABLET PO SCH (09:28)
[2016-09-09 11:00] VITALS: BP 150/67
--- NOTE | 2016-09-09 11:53 | PDOC ---
PULMONARY PROGRESS NOTES Subjective NO SOA Vitals Vital Signs Date Time Temp Pulse Resp B/P (MAP) Pulse Ox O2 Delivery O2 Flow Rate FiO2 09/09/16 11:01 94 Nasal Cannula 3.0 09/09/16 09:20 79 140/62 09/09/16 03:00 97.7 18 97.7 General: Alert, Oriented X4, No acute distress Lungs: Other (decrease bs) Cardiovascular: S1, S2 Abdomen: Soft, Non-tender, Other Neuro Exam: Alert Extremities: No Edema Labs Laboratory Tests Test 09/07/16 18:02 09/07/16 20:41 09/08/16 07:28 09/08/16 11:23 White Blood Count 9.7 x10^3/uL (4.0-11.0) Red Blood Count 3.73 x10^6/uL (3.50-5.40) Hemoglobin 11.9 g/dL (12.0-15.5) Hematocrit 37.3 % (36.0-47.0) Mean Corpuscular Volume 100 fL (79-100) Mean Corpuscular Hemoglobin 32 pg (25-35) Mean Corpuscular Hemoglobin Concent 32 g/dL (31-37) Red Cell Distribution Width 15.5 % (11.5-14.5) Platelet Count 263 x10^3/uL (140-400) Neutrophils (%) (Auto) 83 % (31-73) Lymphocytes (%) (Auto) 6 % (24-48) Monocytes (%) (Auto) 11 % (0-9) Eosinophils (%) (Auto) 0 % (0-3) Basophils (%) (Auto) 0 % (0-3) Neutrophils # (Auto) 8.1 x10^3uL (1.8-7.7) Lymphocytes # (Auto) 0.5 x10^3/uL (1.0-4.8) Monocytes # (Auto) 1.0 x10^3/uL (0.0-1.1) Eosinophils # (Auto) 0.0 x10^3/uL (0.0-0.7) Basophils # (Auto) 0.0 x10^3/uL (0.0-0.2) Sodium Level 139 mmol/L (136-145) Potassium Level 3.4 mmol/L (3.5-5.1) Chloride Level 104 mmol/L (98-107) Carbon Dioxide Level 24 mmol/L (21-32) Anion Gap 11 (6-14) Blood Urea Nitrogen 14 mg/dL (7-20) Creatinine 3.0 mg/dL (0.6-1.0) Estimated GFR (Cockcroft-Gault) 18.6 BUN/Creatinine Ratio 5 (6-20) Glucose Level 188 mg/dL (70-99) Lactic Acid Level 1.3 mmol/L (0.4-2.0) Calcium Level 7.9 mg/dL (8.5-10.1) Total Bilirubin 0.3 mg/dL (0.2-1.0) Aspartate Amino Transf (AST/SGOT) 19 U/L (15-37) Alanine Aminotransferase (ALT/SGPT) 18 U/L (14-59) Alkaline Phosphatase 159 U/L (46-116) Total Protein 6.7 g/dL (6.4-8.2) Albumin 2.4 g/dL (3.4-5.0) Albumin/Globulin Ratio 0.6 (1.0-1.7) Glucose (Fingerstick) 173 mg/dL (70-99) 84 mg/dL (70-99) 50 mg/dL (70-99) Test 09/08/16 11:24 09/08/16 11:45 09/08/16 16:14 09/08/16 20:39 Glucose (Fingerstick) 51 mg/dL (70-99) 94 mg/dL (70-99) 113 mg/dL (70-99) 200 mg/dL (70-99) Test 09/09/16 05:15 09/09/16 07:34 09/09/16 09:03 09/09/16 11:08 Hemoglobin 11.2 g/dL (12.0-15.5) Sodium Level 143 mmol/L (136-145) Potassium Level 4.3 mmol/L (3.5-5.1) Chloride Level 109 mmol/L (98-107) Carbon Dioxide Level 24 mmol/L (21-32) Anion Gap 10 (6-14) Blood Urea Nitrogen 25 mg/dL (7-20) Creatinine 4.8 mg/dL (0.6-1.0) Estimated GFR (Cockcroft-Gault) 10.8 Glucose Level 66 mg/dL (70-99) Calcium Level 7.9 mg/dL (8.5-10.1) Phosphorus Level 4.6 mg/dL (2.6-4.7) Magnesium Level 1.9 mg/dL (1.8-2.4) Albumin 2.2 g/dL (3.4-5.0) Glucose (Fingerstick) 47 mg/dL (70-99) 146 mg/dL (70-99) 103 mg/dL (70-99) Laboratory Tests Test 09/08/16 16:14 09/08/16 20:39 09/09/16 05:15 09/09/16 07:34 Glucose (Fingerstick) 113 mg/dL (70-99) 200 mg/dL (70-99) 47 mg/dL (70-99) Hemoglobin 11.2 g/dL (12.0-15.5) Sodium Level 143 mmol/L (136-145) Potassium Level 4.3 mmol/L (3.5-5.1) Chloride Level 109 mmol/L (98-107) Carbon Dioxide Level 24 mmol/L (21-32) Anion Gap 10 (6-14) Blood Urea Nitrogen 25 mg/dL (7-20) Creatinine 4.8 mg/dL (0.6-1.0) Estimated GFR (Cockcroft-Gault) 10.8 Glucose Level 66 mg/dL (70-99) Calcium Level 7.9 mg/dL (8.5-10.1) Phosphorus Level 4.6 mg/dL (2.6-4.7) Magnesium Level 1.9 mg/dL (1.8-2.4) Albumin 2.2 g/dL (3.4-5.0) Test 09/09/16 09:03 09/09/16 11:08 Glucose (Fingerstick) 146 mg/dL (70-99) 103 mg/dL (70-99) Medications Active Scripts Medications Dose Route/Sig Max Daily Dose Days Date Category Breo Ellipta 100-25 Mcg Inh (Fluticasone/Vilanterol) 1 Each Aer.pow.ba 1 Puff IH DAILY 09/08/16 Reported Hydroxyzine Hcl 25 Mg Tablet 1 Tab PO 1X PRN PRN 09/08/16 Reported Furosemide 40 Mg Tablet 1 Tab PO DAILY 09/07/16 Reported Toprol Xl (Metoprolol Succinate) 100 Mg Tab.er.24h 100 Mg PO DAILY 09/07/16 Reported Amlodipine Besylate 5 Mg Tablet 10 Mg PO DAILY 07/12/16 Reported Proair Hfa Inhaler (Albuterol Sulfate) 8.5 Gm Hfa.aer.ad 2 Puff INH PRN Q6HRS PRN 06/27/16 Reported Lantus Solostar (Insulin Glargine,Hum.rec.anlog) 100 Unit/1 Ml Insuln.pen 20 Unit SQ QHS 09/03/15 Reported Atorvastatin Calcium 20 Mg Tablet 40 Mg PO DAILY 09/03/15 Reported Lisinopril 20 Mg Tablet 20 Tab PO DAILY 06/15/15 Rx [Albuterol Sulfate] 2.5 MG/3 ML Nebu 2.5 Mg NEB PRN Q4HRS PRN 12/26/14 Rx Tradjenta (Linagliptin) 5 Mg Tablet 5 Mg PO DAILY 12/17/14 Rx Aspirin 325 Mg Tablet 1 Tab PO DAILY 01/25/14 Reported Plavix (Clopidogrel Bisulfate) 75 Mg Tablet 75 Mg PO DAILY 01/10/14 Reported Impression . 1. Dyspnea secondary to acute exacerbation of chronic obstructive pulmonary disease. resolved 2. Acute on chronic hypoxic respiratory failure secondary to acute exacerbation of chronic obstructive pulmonary disease. 3. Acute bronchitis with no definite pneumonia seen on the chest x-ray or CT chest. 4. Abnormal CT chest which showed some atelectasis in the right middle lobe. There was also some nonspecific 4 mm nodules in the lungs, which maybe parenchymal scars. I would recommend having a followup CT in 6-8 months. There is mild mediastinal adenopathy, which is probably reactive. 5. Chronic renal insufficiency. Plan . 1. Continue with present bronchodilators. 2. Continue with present antibiotics. 3. DVT prophylaxis with subcutaneous heparin. 4. She does have a weight loss of about 30 pounds in the last 6 months. I do not see any worrisome abnormality on the CT chest. If clinically indicated, she may have CT abdomen and pelvis. I will leave up to PCP. 5. We will follow along with you. SHEILA ZHENG MD Sep 09, 2016 11:53
--- NOTE | 2016-09-09 12:36 | PDOC ---
SUBJECTIVE ROS ESRD Doign well overall CVS: no Orthopnea, no CP RESP: mi ch SOB, no TAYLOR GI: no Nausea, no Vomiting : no Dysuria, no Urgency OBJECTIVE Vital Signs Vital Signs Date Time Temp Pulse Resp B/P (MAP) Pulse Ox O2 Delivery O2 Flow Rate FiO2 09/09/16 11:01 94 Nasal Cannula 3.0 09/09/16 09:20 79 140/62 09/09/16 03:00 97.7 18 97.7 I & 0 Intake and Output 09/09/16 07:00 Intake Total 1040 ml Output Total 0 ml Balance 1040 ml Intake Oral 1040 ml Output Urine Total 0 ml # Voids 2 PHYSICAL EXAM Physical Exam General Appearance: Awake Alert Oriented x 3 In no Distress Eyes: VIsion Unchanged Conjunctiva Normal EN: No EN Drainage Mucous Memb. moist Neck: min JVD + JVP Supple no Thyromegaly CVS: S1 S2 + Murmur No Gallop No Rub tr Edema Resp: few basal Rales occ Rhonchi no Acc. Muscle use; dec AE GI: BS +ve NO Bruit Non Tender Non Distended : no CVA tenderness; no Suprapubic Tenderness Assessment & Plan ESRD: Dialysis as below F 180 NR 3.5 Hrs 3 K 2.5 Ca 140 Na 40 HC03 Qb 350 + Qd 500+ Heparin 0 Units Uf to dry weight as tolerated May give 25-50 gms of 25% Albumin if needed to maintain Hemodynamic stability Treatment plan reviewed and discussed with document control supervisor SOb - AECOPD per Pulm Anemia: no Epogen for hgb > 11; Transfuse with next HD as needed. HTN: Current BP meds reviewed. See orders for changes. Bone & Mineral: Follow phos and alter binder regimen as needed - currently doing well Low K - suspect post HD low - now resolved/ rebounded Discussed Plan of Care and prognosis with pt COMMENT/RELEVANT DATA Meds Current Medications Medications (Trade) Dose Ordered Sig/Eric Start Time Stop Time Status Last Admin Dose Admin Albuterol Sulfate (Ventolin Neb Soln) 2.5 mg PRN Q4HRS PRN 09/07/16 20:30 09/07/16 20:50 2.5 MG Albuterol/ Ipratropium (Duoneb) 3 ml RTQID 09/08/16 12:00 09/09/16 11:00 3 ML Amlodipine Besylate (Norvasc) 10 mg DAILY 09/09/16 09:00 09/09/16 09:18 10 MG Aspirin (Ecotrin) 325 mg [id number] 09/08/16 08:00 09/09/16 09:17 325 MG Atorvastatin Calcium (Lipitor) 40 mg QHS 09/08/16 21:00 09/08/16 21:07 40 MG Azithromycin 250 ml @ 250 mls/hr 1X ONCE 09/07/16 19:15 09/07/16 20:14 DC 09/07/16 20:16 250 MLS/HR Azithromycin 250 mg/Sodium Chloride 250 ml @ 250 mls/hr Q24H 09/08/16 17:00 09/08/16 17:00 250 MLS/HR Benzonatate (Tessalon Perle) 100 mg [id number] 09/07/16 21:00 09/09/16 09:19 100 MG Ceftriaxone Sodium 1 gm/ Sodium Chloride 50 ml @ 100 mls/hr Q24H 09/08/16 17:00 09/08/16 16:40 100 MLS/HR Ceftriaxone Sodium 50 ml @ 100 mls/hr 1X ONCE 09/07/16 19:15 09/07/16 19:44 DC 09/07/16 19:42 100 MLS/HR Clopidogrel Bisulfate (Plavix) 75 mg [id number] 09/08/16 08:00 09/09/16 09:28 75 MG Dextrose (Dextrose 50%-Water Syringe) 12.5 gm PRN Q15MIN PRN 09/07/16 20:30 Fluoxetine HCl (PROzac) 20 mg DAILY 09/08/16 09:00 09/08/16 11:12 DC Furosemide (Lasix) 40 mg DAILY 09/08/16 11:30 09/09/16 09:17 40 MG Guaifenesin (Robitussin Dm) 10 ml PRN Q6HRS PRN 09/07/16 20:30 09/09/16 02:33 10 ML Heparin Sodium (Porcine) (Heparin Sq) 5,000 unit Q8HRS 09/07/16 22:00 09/09/16 06:07 5,000 UNIT Insulin Aspart (NovoLOG) 0-9 UNITS TIDWMEALS 09/08/16 08:00 Insulin Detemir (Levemir) 20 units QHS 09/07/16 21:00 09/08/16 21:13 20 UNITS Linagliptin (Tradjenta) 5 mg DAILY 09/08/16 09:00 Lisinopril (Prinivil) 40 mg DAILY 09/08/16 11:30 09/09/16 09:19 40 MG Magnesium Sulfate/ Dextrose 50 ml @ 25 mls/hr PRN DAILY PRN 09/08/16 10:15 Metolazone (Zaroxolyn) 2.5 mg DAILY 09/08/16 09:00 09/08/16 11:12 DC Metoprolol Succinate (Toprol Xl) 100 mg DAILY 09/08/16 09:00 09/09/16 09:20 100 MG Non-Formulary Medication 2.5 mg PRN Q4HRS PRN 09/07/16 20:30 UNV Ondansetron HCl (Zofran) 4 mg 1X ONCE 09/07/16 20:30 09/07/16 20:31 DC 09/07/16 20:29 4 MG Oxybutynin Chloride (Ditropan) 5 mg [id number] 09/07/16 21:00 09/08/16 11:12 DC 09/07/16 21:16 5 MG Potassium Chloride (Klor-Con) 20 meq 1X ONCE 09/07/16 20:30 09/07/16 20:31 DC 09/07/16 21:16 20 MEQ Vitamin B Complex/ Vitamin C (Marina-Jayme) 1 tab DAILY 09/08/16 09:00 09/09/16 09:19 1 TAB Lab Laboratory Tests Test 09/08/16 16:14 09/08/16 20:39 09/09/16 05:15 09/09/16 07:34 Glucose (Fingerstick) 113 mg/dL (70-99) 200 mg/dL (70-99) 47 mg/dL (70-99) Hemoglobin 11.2 g/dL (12.0-15.5) Sodium Level 143 mmol/L (136-145) Potassium Level 4.3 mmol/L (3.5-5.1) Chloride Level 109 mmol/L (98-107) Carbon Dioxide Level 24 mmol/L (21-32) Anion Gap 10 (6-14) Blood Urea Nitrogen 25 mg/dL (7-20) Creatinine 4.8 mg/dL (0.6-1.0) Estimated GFR (Cockcroft-Gault) 10.8 Glucose Level 66 mg/dL (70-99) Calcium Level 7.9 mg/dL (8.5-10.1) Phosphorus Level 4.6 mg/dL (2.6-4.7) Magnesium Level 1.9 mg/dL (1.8-2.4) Albumin 2.2 g/dL (3.4-5.0) Test 09/09/16 09:03 09/09/16 11:08 Glucose (Fingerstick) 146 mg/dL (70-99) 103 mg/dL (70-99) WENDI SUAREZ MD Sep 09, 2016 12:36
[2016-09-09] MEDS ORDERED: LIDOCAINE 1% PF 2 ML VIAL. ONE (14:04)
[2016-09-09] MEDS ORDERED: hydrOXYzine PAMOATE 25 MG CAPSULE PO PRN (14:15)
[2016-09-09] MEDS ORDERED: IV NORMAL SALINE 1000ML BAG 1,000 ML IV PRN ×2 (14:35)
[2016-09-09] MEDS ORDERED: DIALYSIS PATIENT. MC PRN (14:45)
[2016-09-09] MEDS ORDERED: ALBUMIN HUMAN 25% 200 ML IV PRN (14:45)
[2016-09-09 15:00] VITALS: BP 149/69
[2016-09-09] MEDS: ALBUTEROL SULFATE 2.5 MG/3 ML NEBU. NEB PRN (16:18)
--- NOTE | 2016-09-09 17:01 | PDOC ---
PROGRESS NOTES Chief Complaint Chief Complaint 1. Hypoxic respi failure, POA 2. CAP 3. 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 DIstant smoking hx 5. SIRS, POA 6. MIld to mod PCM 7,. mild Hypokalemia Other prior diagnosis chronic DIAstolic congestive heart failure. ESRD on HD MWF Diabetes mellitus Hypertension Peripheral artery disease. Hyperlipidemia. Diverticulosis chronic anemia , ESRD . Anxiety NOS abd aneurysm 4cm History of Present Illness History of Present Illness Slow improvement On IV antibx , Nebs, O2 DW RN extensively Renal and pulmo consult following On HD MWF PT/OT Diarrhea improving Vitals Vitals Vital Signs Date Time Temp Pulse Resp B/P (MAP) Pulse Ox O2 Delivery O2 Flow Rate FiO2 09/09/16 16:18 99 Nasal Cannula 3.0 09/09/16 11:00 98.3 81 18 150/67 (94) 98.3 Physical Exam General: Alert, Oriented X3, Cooperative, No acute distress Heart: Regular rate Lungs: Other (decrease bs) Abdomen: Normal bowel sounds, Soft, No tenderness, No hepatosplenomegaly, No masses Extremities: No clubbing, No cyanosis, No edema, Normal pulses, No tenderness/ swelling Skin: No rashes, No breakdown, No significant lesion Labs LABS Laboratory Tests Test 09/08/16 20:39 09/09/16 05:15 09/09/16 07:34 09/09/16 09:03 Glucose (Fingerstick) 200 mg/dL (70-99) 47 mg/dL (70-99) 146 mg/dL (70-99) Hemoglobin 11.2 g/dL (12.0-15.5) Sodium Level 143 mmol/L (136-145) Potassium Level 4.3 mmol/L (3.5-5.1) Chloride Level 109 mmol/L (98-107) Carbon Dioxide Level 24 mmol/L (21-32) Anion Gap 10 (6-14) Blood Urea Nitrogen 25 mg/dL (7-20) Creatinine 4.8 mg/dL (0.6-1.0) Estimated GFR (Cockcroft-Gault) 10.8 Glucose Level 66 mg/dL (70-99) Calcium Level 7.9 mg/dL (8.5-10.1) Phosphorus Level 4.6 mg/dL (2.6-4.7) Magnesium Level 1.9 mg/dL (1.8-2.4) Albumin 2.2 g/dL (3.4-5.0) Test 09/09/16 11:08 Glucose (Fingerstick) 103 mg/dL (70-99) Review of Systems Review of Systems co hunger co soa Assessment and Plan Assessmemt and Plan Problems Medical Problems: (1) Community acquired pneumonia Status: Acute (2) ESRD (end stage renal disease) on dialysis Status: Acute (3) Hypoxia Status: Acute 1. Hypoxic respi failure, POA 2. CAP 3. 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 DIstant smoking hx 5. SIRS, POA 6. MIld to mod PCM 7,. mild Hypokalemia Other prior diagnosis chronic DIAstolic congestive heart failure. ESRD on HD MWF Diabetes mellitus Hypertension Peripheral artery disease. Hyperlipidemia. Diverticulosis chronic anemia , ESRD . Anxiety NOS abd aneurysm 4cm Plan HD QOD PTOT IV antibx Nebs O2 Home meds Recheck labs Problems: Comment Review of Relevant I have reviewed the following items mykel (where applicable) has been applied. Labs Laboratory Tests Test 09/07/16 18:02 09/07/16 20:41 09/08/16 07:28 09/08/16 11:23 White Blood Count 9.7 x10^3/uL (4.0-11.0) Red Blood Count 3.73 x10^6/uL (3.50-5.40) Hemoglobin 11.9 g/dL (12.0-15.5) Hematocrit 37.3 % (36.0-47.0) Mean Corpuscular Volume 100 fL (79-100) Mean Corpuscular Hemoglobin 32 pg (25-35) Mean Corpuscular Hemoglobin Concent 32 g/dL (31-37) Red Cell Distribution Width 15.5 % (11.5-14.5) Platelet Count 263 x10^3/uL (140-400) Neutrophils (%) (Auto) 83 % (31-73) Lymphocytes (%) (Auto) 6 % (24-48) Monocytes (%) (Auto) 11 % (0-9) Eosinophils (%) (Auto) 0 % (0-3) Basophils (%) (Auto) 0 % (0-3) Neutrophils # (Auto) 8.1 x10^3uL (1.8-7.7) Lymphocytes # (Auto) 0.5 x10^3/uL (1.0-4.8) Monocytes # (Auto) 1.0 x10^3/uL (0.0-1.1) Eosinophils # (Auto) 0.0 x10^3/uL (0.0-0.7) Basophils # (Auto) 0.0 x10^3/uL (0.0-0.2) Sodium Level 139 mmol/L (136-145) Potassium Level 3.4 mmol/L (3.5-5.1) Chloride Level 104 mmol/L (98-107) Carbon Dioxide Level 24 mmol/L (21-32) Anion Gap 11 (6-14) Blood Urea Nitrogen 14 mg/dL (7-20) Creatinine 3.0 mg/dL (0.6-1.0) Estimated GFR (Cockcroft-Gault) 18.6 BUN/Creatinine Ratio 5 (6-20) Glucose Level 188 mg/dL (70-99) Lactic Acid Level 1.3 mmol/L (0.4-2.0) Calcium Level 7.9 mg/dL (8.5-10.1) Total Bilirubin 0.3 mg/dL (0.2-1.0) Aspartate Amino Transf (AST/SGOT) 19 U/L (15-37) Alanine Aminotransferase (ALT/SGPT) 18 U/L (14-59) Alkaline Phosphatase 159 U/L (46-116) Total Protein 6.7 g/dL (6.4-8.2) Albumin 2.4 g/dL (3.4-5.0) Albumin/Globulin Ratio 0.6 (1.0-1.7) Glucose (Fingerstick) 173 mg/dL (70-99) 84 mg/dL (70-99) 50 mg/dL (70-99) Test 09/08/16 11:24 09/08/16 11:45 09/08/16 16:14 09/08/16 20:39 Glucose (Fingerstick) 51 mg/dL (70-99) 94 mg/dL (70-99) 113 mg/dL (70-99) 200 mg/dL (70-99) Test 09/09/16 05:15 09/09/16 07:34 09/09/16 09:03 09/09/16 11:08 Hemoglobin 11.2 g/dL (12.0-15.5) Sodium Level 143 mmol/L (136-145) Potassium Level 4.3 mmol/L (3.5-5.1) Chloride Level 109 mmol/L (98-107) Carbon Dioxide Level 24 mmol/L (21-32) Anion Gap 10 (6-14) Blood Urea Nitrogen 25 mg/dL (7-20) Creatinine 4.8 mg/dL (0.6-1.0) Estimated GFR (Cockcroft-Gault) 10.8 Glucose Level 66 mg/dL (70-99) Calcium Level 7.9 mg/dL (8.5-10.1) Phosphorus Level 4.6 mg/dL (2.6-4.7) Magnesium Level 1.9 mg/dL (1.8-2.4) Albumin 2.2 g/dL (3.4-5.0) Glucose (Fingerstick) 47 mg/dL (70-99) 146 mg/dL (70-99) 103 mg/dL (70-99) Laboratory Tests Test 09/08/16 20:39 09/09/16 05:15 09/09/16 07:34 09/09/16 09:03 Glucose (Fingerstick) 200 mg/dL (70-99) 47 mg/dL (70-99) 146 mg/dL (70-99) Hemoglobin 11.2 g/dL (12.0-15.5) Sodium Level 143 mmol/L (136-145) Potassium Level 4.3 mmol/L (3.5-5.1) Chloride Level 109 mmol/L (98-107) Carbon Dioxide Level 24 mmol/L (21-32) Anion Gap 10 (6-14) Blood Urea Nitrogen 25 mg/dL (7-20) Creatinine 4.8 mg/dL (0.6-1.0) Estimated GFR (Cockcroft-Gault) 10.8 Glucose Level 66 mg/dL (70-99) Calcium Level 7.9 mg/dL (8.5-10.1) Phosphorus Level 4.6 mg/dL (2.6-4.7) Magnesium Level 1.9 mg/dL (1.8-2.4) Albumin 2.2 g/dL (3.4-5.0) Test 09/09/16 11:08 Glucose (Fingerstick) 103 mg/dL (70-99) Microbiology 09/07/16 Blood Culture - Preliminary, Resulted NO GROWTH AFTER 1 DAY 09/09/16 Gram Stain - Final, Complete Medications Current Medications Ceftriaxone Sodium 50 ml @ 100 mls/hr 1X ONCE IV Last administered on 19:42; Start 09/07/16 at 19:15; Stop 09/07/16 at 19:44; Status DC Azithromycin 250 ml @ 250 mls/hr 1X ONCE IV Last administered on 09/07/16 20 :16; Start 09/07/16 at 19:15; Stop 09/07/16 at 20:14; Status DC Amlodipine Besylate (Norvasc) 5 mg DAILY PO Last administered on 09/08/16 08:45 ; Start 09/08/16 at 09:00; Stop 09/08/16 at 11:12; Status DC Aspirin (Ecotrin) 325 mg DAILYWBKFT PO Last administered on 09/09/16 09:17; Start 09/08/16 at 08:00 Atorvastatin Calcium (Lipitor) 20 mg QHS PO Last administered on 09/07/16 21: 16; Start 09/07/16 at 21:00; Stop 09/08/16 at 11:12; Status DC Clopidogrel Bisulfate (Plavix) 75 mg DAILYWBKFT PO Last administered on 09:28; Start 09/08/16 at 08:00 Vitamin B Complex/ Vitamin C (Marina-Jayme) 1 tab DAILY PO Last administered on 09:19; Start 09/08/16 at 09:00 Linagliptin (Tradjenta) 5 mg DAILY PO ; Start 09/08/16 at 09:00 Lisinopril (Prinivil) 40 mg DAILY PO ; Start 09/08/16 at 09:00; Stop 09/08/16 at 11:12; Status DC Metolazone (Zaroxolyn) 2.5 mg DAILY PO ; Start 09/08/16 at 09:00; Stop 09/08/16 at 11:12; Status DC Metoprolol Succinate (Toprol Xl) 100 mg DAILY PO Last administered on 09/09/16 09:20; Start 09/08/16 at 09:00 Potassium Chloride (Klor-Con) 20 meq DAILYWBKFT PO ; Start 09/08/16 at 08:00; Stop 09/08/16 at 09:53; Status DC Non-Formulary Medication 2 puff PRN Q6HRS PRN INH SHORTNESS OF BREATH; Start at 20:30; Status UNV Fluoxetine HCl (PROzac) 20 mg DAILY PO ; Start 09/08/16 at 09:00; Stop 09/08/16 at 11:12; Status DC Insulin Detemir (Levemir) 20 units QHS SQ Last administered on 09/08/16 21:13; Start 09/07/16 at 21:00 Oxybutynin Chloride (Ditropan) 5 mg [id number] PO Last administered on 09/07/16 21 :16; Start 09/07/16 at 21:00; Stop 09/08/16 at 11:12; Status DC Non-Formulary Medication 2.5 mg PRN Q4HRS PRN NEB SHORTNESS OF BREATH; Start at 20:30; Status UNV Insulin Aspart (NovoLOG) 0-9 UNITS TIDWMEALS SQ ; Start 09/08/16 at 08:00 Dextrose (Dextrose 50%-Water Syringe) 12.5 gm PRN Q15MIN PRN IV SEE COMMENTS; Start 09/07/16 at 20:30 Heparin Sodium (Porcine) (Heparin Sq) 5,000 unit Q8HRS SQ Last administered on 09/09/16 06:07; Start 09/07/16 at 22:00 Ceftriaxone Sodium 1 gm/ Sodium Chloride 50 ml @ 100 mls/hr Q24H IV Last administered on 09/08/16 16:40; Start 09/08/16 at 17:00 Azithromycin 250 mg/Sodium Chloride 250 ml @ 250 mls/hr Q24H IV Last administered on 09/08/16 17:00; Start 09/08/16 at 17:00 Benzonatate (Tessalon Perle) 100 mg [id number] PO Last administered on 09/09/16 09: 19; Start 09/07/16 at 21:00 Guaifenesin (Robitussin Dm) 10 ml PRN Q6HRS PRN PO COUGH Last administered on 02:33; Start 09/07/16 at 20:30 Potassium Chloride (Klor-Con) 20 meq 1X ONCE PO Last administered on 21:16; Start 09/07/16 at 20:30; Stop 09/07/16 at 20:31; Status DC Ondansetron HCl (Zofran) 4 mg STK-MED ONCE .ROUTE ; Start 09/07/16 at 20:24; Stop 09/07/16 at 20:25; Status DC Albuterol Sulfate (Ventolin Neb Soln) 2.5 mg PRN Q4HRS PRN NEB SHORTNESS OF BREATH Last administered on 09/09/16 16:18; Start 09/07/16 at 20:30 Ondansetron HCl (Zofran) 4 mg 1X ONCE IV Last administered on 09/07/16 20:29 ; Start 09/07/16 at 20:30; Stop 09/07/16 at 20:31; Status DC Albuterol/ Ipratropium (Duoneb) 3 ml RTQID NEB Last administered on 09/09/16 11 :00; Start 09/08/16 at 12:00 Furosemide (Lasix) 20 mg DAILY PO ; Start 09/08/16 at 10:00; Stop 09/08/16 at 11: 12; Status DC Magnesium Sulfate/ Dextrose 50 ml @ 25 mls/hr PRN DAILY PRN IV for Mag < 1.7 on am labs; Start 09/08/16 at 10:15 Amlodipine Besylate (Norvasc) 10 mg DAILY PO Last administered on 09/09/16 09: 18; Start 09/09/16 at 09:00 Atorvastatin Calcium (Lipitor) 40 mg QHS PO Last administered on 09/08/16 21:07 ; Start 09/08/16 at 21:00 Furosemide (Lasix) 40 mg DAILY PO Last administered on 09/09/16 09:17; Start at 11:30 Lisinopril (Prinivil) 40 mg DAILY PO Last administered on 09/09/16 09:19; Start 09/08/16 at 11:30 Lidocaine HCl (Xylocaine-Mpf 1% Vial) 2 ml STK-MED ONCE .ROUTE ; Start 09/09/16 at 14:04; Stop 09/09/16 at 14:05; Status DC Hydroxyzine Pamoate (Vistaril) 25 mg 1X PRN PRN PO ANXIETY / AGITATION Last administered on 09/09/16t 14:26; Start 09/09/16 at 14:15; Stop 09/09/16 at 14:26; Status DC Sodium Chloride 1,000 ml @ 1,000 mls/hr Q1H PRN IV hypotension; Start 09/09/16 at 14:35; Stop 09/09/16 at 21:00 Albumin Human 200 ml @ 200 mls/hr 1X PRN PRN IV Hypotension; Start 09/09/16 at 14:45; Stop 09/09/16 at 21:00 Sodium Chloride 1,000 ml @ 400 mls/hr Q2H30M PRN IV PATENCY; Start 09/09/16 at 14:35; Stop 09/10/16 at 21:00 Info (PHARMACY MONITORING -- do not chart) 1 each PRN DAILY PRN MC SEE COMMENTS ; Start 09/09/16 at 14:45 Active Scripts Active Lisinopril 20 Mg Tablet 20 Tab PO DAILY [Albuterol Sulfate] 2.5 MG/3 ML Nebu 2.5 Mg NEB PRN Q4HRS PRN Tradjenta (Linagliptin) 5 Mg Tablet 5 Mg PO DAILY Reported Breo Ellipta 100-25 Mcg Inh (Fluticasone/Vilanterol) 1 Each Aer.pow.ba 1 Puff IH DAILY Hydroxyzine Hcl 25 Mg Tablet 1 Tab PO 1X PRN PRN Furosemide 40 Mg Tablet 1 Tab PO DAILY Toprol Xl (Metoprolol Succinate) 100 Mg Tab.er.24h 100 Mg PO DAILY Amlodipine Besylate 5 Mg Tablet 10 Mg PO DAILY Proair Hfa Inhaler (Albuterol Sulfate) 8.5 Gm Hfa.aer.ad 2 Puff INH PRN Q6HRS PRN Lantus Solostar (Insulin Glargine,Hum.rec.anlog) 100 Unit/1 Ml Insuln.pen 20 Unit SQ QHS Atorvastatin Calcium 20 Mg Tablet 40 Mg PO DAILY Aspirin 325 Mg Tablet 1 Tab PO DAILY Plavix (Clopidogrel Bisulfate) 75 Mg Tablet 75 Mg PO DAILY Vitals/I & O Vital Sign - Last 24 Hours 09/08/16 09/08/16 09/08/16 09/08/16 19:00 19:10 20:00 23:00 Temp 97.9 99.1 97.9 99.1 Pulse 71 72 Resp 18 18 B/P (MAP) 139/61 (87) 120/56 (77) Pulse Ox 92 96 95 O2 Delivery Nasal Cannula Nasal Cannula Nasal Cannula Nasal Cannula O2 Flow Rate 3.0 3.0 3.0 3.0 09/09/16 09/09/16 09/09/16 09/09/16 03:00 07:00 07:32 09:18 Temp 97.7 98.3 97.7 98.3 Pulse 72 79 79 Resp 18 17 B/P (MAP) 127/59 (81) 140/62 (88) 140/62 Pulse Ox 92 94 98 O2 Delivery Nasal Cannula Nasal Cannula Nasal Cannula O2 Flow Rate 3.0 3.0 3.0 09/09/16 09/09/16 09/09/16 09/09/16 09:19 09:20 11:00 11:01 Temp 98.3 98.3 Pulse 79 79 81 Resp 18 B/P (MAP) 140/62 140/62 150/67 (94) Pulse Ox 95 94 O2 Delivery Nasal Cannula Nasal Cannula O2 Flow Rate 3.0 3.0 09/09/16 16:18 Pulse Ox 99 O2 Delivery Nasal Cannula O2 Flow Rate 3.0 Intake and Output 09/08/16 09/08/16 09/09/16 15:00 23:00 07:00 Intake Total 540 ml 500 ml Output Total 0 ml Balance 540 ml 500 ml 0 ml YULIA DE ANDA K III DO Sep 09, 2016 17:01
[2016-09-09 19:00] VITALS: BP 147/57
[2016-09-09] MEDS: AZITHROMYCIN 250 MG in IV NORMAL SALINE 250ML 250 ML IV SCH (21:08)
[2016-09-09] MEDS ORDERED: CALCIUM CARBONATE 500 MG TAB.CHEW PO PRN (21:30)
[2016-09-09] MEDS ORDERED: MAG HYDROX/ALUMINUM HYD/SIMETH 30 ML ORAL.SUSP PO PRN (21:30)
[2016-09-09] MEDS: ATORVASTATIN CALCIUM 40 MG TABLET. PO SCH (22:28)
[2016-09-09] MEDS: INSULIN DETEMIR 300 UNITS/3 ML INSULN.PEN. SQ SCH (22:35)
[2016-09-09 23:00] VITALS: BP 138/63
[2016-09-10 03:03] VITALS: BP 174/81
[2016-09-10 03:19] VITALS: BP 138/59
[2016-09-10 04:22] LABS: ALBUMIN 2.1 g/dL (3.4-5.0); CALCIUM 7.9 mg/dL (8.5-10.1); CREATININE 3.4 mg/dL (0.6-1.0); GFR 16.1; PHOSPHORUS 2.4 mg/dL (2.6-4.7)
[2016-09-10] MEDS: HEPARIN PF for SUB-Q USE 5,000 UNIT/0.5 ML VIAL. SQ SCH ×2 (06:15→13:02)
[2016-09-10 07:00] VITALS: BP 140/48
[2016-09-10] MEDS ORDERED: PANTOPRAZOLE 40 MG TABLET.DR. PO SCH (07:30)
[2016-09-10] MEDS: IPRATRPIUM/ALBUTEROL 0.5/2.5MG 3 ML NEBU. NEB SCH ×2 (07:38→11:25)
[2016-09-10] MEDS: INSULIN ASPART 300 UNITS/3 ML INSULN.PEN SQ SCH ×2 (08:00→11:40)
[2016-09-10] MEDS: LINAGLIPTIN 5 MG TABLET PO SCH (08:06)
[2016-09-10] MEDS: FUROSEMIDE 40 MG TABLET. PO SCH (09:14)
[2016-09-10] MEDS: ASPIRIN ENTERIC COATED 325 MG TABLET.DR. PO SCH (09:14)
[2016-09-10] MEDS: CLOPIDOGREL BISULFATE 75 MG TABLET PO SCH (09:15)
[2016-09-10] MEDS: METOPROLOL SUCC 24HR ER 100 MG TAB.ER.24H. PO SCH (09:15)
[2016-09-10] MEDS: amLODIPine BESYLATE 10 MG TABLET PO SCH (09:15)
[2016-09-10] MEDS: LISINOPRIL 40 MG TABLET. PO SCH (09:15)
[2016-09-10] MEDS: BENZONATATE 100 MG CAPSULE. PO SCH ×2 (09:15→13:02)
[2016-09-10] MEDS: FOLIC/VIT B COMP W-C (RENAL) TABLET. PO SCH (09:15)
--- NOTE | 2016-09-10 09:59 | PDOC ---
PULMONARY PROGRESS NOTES Subjective NO SOA Vitals Vital Signs Date Time Temp Pulse Resp B/P (MAP) Pulse Ox O2 Delivery O2 Flow Rate FiO2 09/10/16 09:15 71 140/48 09/10/16 07:39 Nasal Cannula 3.0 09/10/16 07:00 97.5 18 100 97.5 General: Alert, Oriented X4, No acute distress Lungs: Other (decrease bs) Cardiovascular: S1, S2 Abdomen: Soft, Non-tender, Other Neuro Exam: Alert Extremities: No Edema Labs Laboratory Tests Test 09/08/16 11:23 09/08/16 11:24 09/08/16 11:45 09/08/16 16:14 Glucose (Fingerstick) 50 mg/dL (70-99) 51 mg/dL (70-99) 94 mg/dL (70-99) 113 mg/dL (70-99) Test 09/08/16 20:39 09/09/16 05:15 09/09/16 07:34 09/09/16 08:33 Glucose (Fingerstick) 200 mg/dL (70-99) 47 mg/dL (70-99) 141 mg/dL (70-99) Hemoglobin 11.2 g/dL (12.0-15.5) Sodium Level 143 mmol/L (136-145) Potassium Level 4.3 mmol/L (3.5-5.1) Chloride Level 109 mmol/L (98-107) Carbon Dioxide Level 24 mmol/L (21-32) Anion Gap 10 (6-14) Blood Urea Nitrogen 25 mg/dL (7-20) Creatinine 4.8 mg/dL (0.6-1.0) Estimated GFR (Cockcroft-Gault) 10.8 Glucose Level 66 mg/dL (70-99) Calcium Level 7.9 mg/dL (8.5-10.1) Phosphorus Level 4.6 mg/dL (2.6-4.7) Magnesium Level 1.9 mg/dL (1.8-2.4) Albumin 2.2 g/dL (3.4-5.0) Test 09/09/16 09:03 09/09/16 11:08 09/09/16 18:26 09/09/16 20:12 Glucose (Fingerstick) 146 mg/dL (70-99) 103 mg/dL (70-99) 82 mg/dL (70-99) 229 mg/dL (70-99) Test 09/10/16 03:15 09/10/16 07:07 09/10/16 07:08 09/10/16 07:57 Sodium Level 142 mmol/L (136-145) Potassium Level 4.0 mmol/L (3.5-5.1) Chloride Level 105 mmol/L (98-107) Carbon Dioxide Level 30 mmol/L (21-32) Anion Gap 7 (6-14) Blood Urea Nitrogen 18 mg/dL (7-20) Creatinine 3.4 mg/dL (0.6-1.0) Estimated GFR (Cockcroft-Gault) 16.1 Glucose Level 112 mg/dL (70-99) Calcium Level 7.9 mg/dL (8.5-10.1) Phosphorus Level 2.4 mg/dL (2.6-4.7) Magnesium Level 1.7 mg/dL (1.8-2.4) Albumin 2.1 g/dL (3.4-5.0) Glucose (Fingerstick) 46 mg/dL (70-99) 47 mg/dL (70-99) 91 mg/dL (70-99) Laboratory Tests Test 09/09/16 11:08 09/09/16 18:26 09/09/16 20:12 09/10/16 03:15 Glucose (Fingerstick) 103 mg/dL (70-99) 82 mg/dL (70-99) 229 mg/dL (70-99) Sodium Level 142 mmol/L (136-145) Potassium Level 4.0 mmol/L (3.5-5.1) Chloride Level 105 mmol/L (98-107) Carbon Dioxide Level 30 mmol/L (21-32) Anion Gap 7 (6-14) Blood Urea Nitrogen 18 mg/dL (7-20) Creatinine 3.4 mg/dL (0.6-1.0) Estimated GFR (Cockcroft-Gault) 16.1 Glucose Level 112 mg/dL (70-99) Calcium Level 7.9 mg/dL (8.5-10.1) Phosphorus Level 2.4 mg/dL (2.6-4.7) Magnesium Level 1.7 mg/dL (1.8-2.4) Albumin 2.1 g/dL (3.4-5.0) Test 09/10/16 07:07 09/10/16 07:08 09/10/16 07:57 Glucose (Fingerstick) 46 mg/dL (70-99) 47 mg/dL (70-99) 91 mg/dL (70-99) Medications Active Scripts Medications Dose Route/Sig Max Daily Dose Days Date Category Breo Ellipta 100-25 Mcg Inh (Fluticasone/Vilanterol) 1 Each Aer.pow.ba 1 Puff IH DAILY 09/08/16 Reported Hydroxyzine Hcl 25 Mg Tablet 1 Tab PO 1X PRN PRN 09/08/16 Reported Furosemide 40 Mg Tablet 1 Tab PO DAILY 09/07/16 Reported Toprol Xl (Metoprolol Succinate) 100 Mg Tab.er.24h 100 Mg PO DAILY 09/07/16 Reported Amlodipine Besylate 5 Mg Tablet 10 Mg PO DAILY 07/12/16 Reported Proair Hfa Inhaler (Albuterol Sulfate) 8.5 Gm Hfa.aer.ad 2 Puff INH PRN Q6HRS PRN 06/27/16 Reported Lantus Solostar (Insulin Glargine,Hum.rec.anlog) 100 Unit/1 Ml Insuln.pen 20 Unit SQ QHS 09/03/15 Reported Atorvastatin Calcium 20 Mg Tablet 40 Mg PO DAILY 09/03/15 Reported Lisinopril 20 Mg Tablet 20 Tab PO DAILY 06/15/15 Rx [Albuterol Sulfate] 2.5 MG/3 ML Nebu 2.5 Mg NEB PRN Q4HRS PRN 12/26/14 Rx Tradjenta (Linagliptin) 5 Mg Tablet 5 Mg PO DAILY 12/17/14 Rx Aspirin 325 Mg Tablet 1 Tab PO DAILY 01/25/14 Reported Plavix (Clopidogrel Bisulfate) 75 Mg Tablet 75 Mg PO DAILY 01/10/14 Reported Impression . 1. Dyspnea secondary to acute exacerbation of chronic obstructive pulmonary disease. resolved 2. Acute on chronic hypoxic respiratory failure secondary to acute exacerbation of chronic obstructive pulmonary disease. 3. Acute bronchitis with no definite pneumonia seen on the chest x-ray or CT chest. 4. Abnormal CT chest which showed some atelectasis in the right middle lobe. There was also some nonspecific 4 mm nodules in the lungs, which maybe parenchymal scars. I would recommend having a followup CT in 6-8 months. There is mild mediastinal adenopathy, which is probably reactive. 5. Chronic renal insufficiency. Plan . 1. Continue with present bronchodilators. 2. Continue with present antibiotics. 3. DVT prophylaxis with subcutaneous heparin. 4. She does have a weight loss of about 30 pounds in the last 6 months. I do not see any worrisome abnormality on the CT chest. If clinically indicated, she may have CT abdomen and pelvis. I will leave up to PCP. 5. stable for dc pulmonary burgos SHEILA ZHENG MD Sep 10, 2016 09:59
[2016-09-10 10:55] VITALS: BP 136/62
--- NOTE | 2016-09-10 21:56 | DS ---
DATE OF DISCHARGE: 09/10/2016 ADMISSION DIAGNOSES: Pneumonia, end-stage renal disease, hypoxia. DISCHARGE DIAGNOSES: Resolving pneumonia, end-stage renal disease, diabetes, hypertension, anemia, chronic obstructive pulmonary disease, systemic inflammatory response syndrome and hypokalemia. HOSPITAL COURSE: The patient is a pleasant 70-year-old female who presented with pneumonia and respiratory failure. She was admitted. We gave her antibiotics and breathing treatments, consult with Pulmonary and got her dialyzed several times. This morning, I had seen her, examined her. She is doing great. We plan to discharge. DISPOSITION: Home. ACTIVITY: As tolerated. DIET: Low sodium. MEDICATIONS: Please see the MRAD. TOTAL TIME: 34 minutes. YULIA DE ANDA DO DR: MAGO/courtney JOB#: [id number] / [id number]
== END 2016-09-10 13:50 | disposition home or self-care (01) | DRG 189 ==
LOC: ER 16:52 → 5 NORTH 19:08
PROVIDERS: ADMIT Internal Medicine; ATTEND Internal Medicine
PROC: 5A1D60Z (ICD-10-PCS; principal; 2016-09-04)
DX: J96.21 Acute and chronic respiratory failure with hypoxia (principal); N18.6 End stage renal disease; J44.0 Chronic obstructive pulmonary disease with (acute) lower respiratory infection; I50.32 Chronic diastolic (congestive) heart failure; J98.11 Atelectasis; E44.0 Moderate protein-calorie malnutrition; I13.2 Hypertensive heart and chronic kidney disease with heart failure and with stage 5 chronic kidney disease, or end stage renal disease; R65.10 Systemic inflammatory response syndrome (SIRS) of non-infectious origin without acute organ dysfunction; J44.1 Chronic obstructive pulmonary disease with (acute) exacerbation; J20.9 Acute bronchitis, unspecified; D64.9 Anemia, unspecified; E11.22 Type 2 diabetes mellitus with diabetic chronic kidney disease; E11.51 Type 2 diabetes mellitus with diabetic peripheral angiopathy without gangrene; K57.90 Diverticulosis of intestine, part unspecified, without perforation or abscess without bleeding; I25.10 Atherosclerotic heart disease of native coronary artery without angina pectoris; E78.00 Pure hypercholesterolemia, unspecified; E78.5 Hyperlipidemia, unspecified; E87.6 Hypokalemia; F41.9 Anxiety disorder, unspecified; Z82.49 Family history of ischemic heart disease and other diseases of the circulatory system; Z87.891 Personal history of nicotine dependence; Z83.3 Family history of diabetes mellitus; Z99.2 Dependence on renal dialysis; Z99.81 Dependence on supplemental oxygen; Z90.49 Acquired absence of other specified parts of digestive tract; Z91.018 Allergy to other foods
CPT/HCPCS: 36415; 71010; 71250; 80053; 80069; 82962; 83605; 83735; 85018; 85027; 87040; 87070; 87205; 93005; 94250; 94640; 94760; 96365; 96375; J0456; J0690; J0696; J1815; J2405; J7050; J7620; Q0177; 99285-25; J7030

== ENCOUNTER 2016-11-24 09:35 | Emergency (ER) | payer MEDICARE, BC ==
[~2016-11-24] VITALS: Ht 156.2 cm; Wt 77.1 kg
[~2016-11-24 09:35] MED LIST changes: -ASPI325T4 PO; +ASPI325T8 PO; +BREO ELLIPTA 11 EACH IH; -CLOP75TA27 PO; +CLOP75TA57 PO; -ERGO500012 PO; +ERGO500027 PO; +HYDR25TA PO; +METO100T2 PO; +METO100T5 PO
--- NOTE | 2016-11-24 09:56 | PHYS DOC ---
Past Medical History Past Medical History: CHF, COPD, Diabetes-Type II, DVT, High Cholesterol, Hypertension, [place], Renal Disease, Renal Failure, Other Additional Past Medical Histor: dialysis MWF, O2 4LNC @ home, CPAP Past Surgical History: Angioplasty, Other Additional Past Surgical Histo: cardiac cath with stent placement, rotator cuff surgery,AV graft, cataract Alcohol Use: None Drug Use: None Adult General Chief Complaint Chief Complaint: BLOODY STOOL [facility] HPI Patient is a 71 year old female presenting to the emergency department for evaluation of difficulty urinating and blood in her urine. Initially she was unsure exactly where the blood was coming from but she denies having bowel movement and is now 100% sure it is not coming from her rectum. I recommended fecal occult blood testing however she refused at this time. Patient says that she had approximately 3-4 kg taken off yesterday and has not been drinking enough water and yesterday felt as if she had the urge to urinate but nothing would come out. She just has blood coming out when she urinates. She denies any pain fevers chills nausea vomiting or other systemic symptoms. Review of Systems Review of Systems Constitutional: Denies fever or chills [] Cardiovascular: No additional information not addressed in HPI [] GI: Denies abdominal pain, nausea, vomiting. + bloody stools : Denies dysuria. + hematuria [] Musculoskeletal: Denies back pain or joint pain [] Neurologic: Denies headache Current Medications Current Medications Current Medications Medications (Trade) Dose Ordered Sig/Eric Start Time Stop Time Status Last Admin Dose Admin Ceftriaxone Sodium (Rocephin Im) 1 gm 1X ONCE 11/24/16 11:15 11/24/16 11:16 DC 11/24/16 11:20 1 GM Allergies Allergies Allergies Coded Allergies Type Severity Reaction Last Updated Verified Iodinated Contrast- Oral and IV Dye Allergy Intermediate 11/24/16 Yes Physical Exam Physical Exam Constitutional: Well developed, well nourished, no acute distress, non-toxic appearance. [] Cardiovascular:Heart rate regular rhythm, no murmur [] Lungs & Thorax: Bilateral breath sounds clear to auscultation [] Abdomen: Bowel sounds normal, soft, no tenderness, no masses, no pulsatile masses. [] Skin: Warm, dry, no erythema, no rash. [] Back: No tenderness, no CVA tenderness. [] Extremities: No tenderness, no cyanosis, no clubbing, ROM intact, no edema. [] Neurologic: Alert and oriented X 3, normal motor function, normal sensory function, no focal deficits noted. [] Current Patient Data Vital Signs Vital Signs Date Time Temp Pulse Resp B/P (MAP) Pulse Ox O2 Delivery O2 Flow Rate FiO2 11/24/16 11:32 70 22 154/74 (100) 99 Nasal Cannula 3.0 11/24/16 10:00 97.9 97.9 Lab Values Laboratory Tests Test 11/24/16 10:25 11/24/16 11:10 Urine Collection Type Void Urine Color Red Urine Clarity Turbid Urine pH 5.0 Urine Specific [place] >=1.030 Urine Protein >=300 mg/dL (NEG-TRACE) Urine Glucose (UA) 100 mg/dL (NEG) Urine Ketones (Stick) mg/dL (NEG) Urine Blood Large (NEG) Urine Nitrite (NEG) Urine Bilirubin (NEG) Urine Urobilinogen Dipstick mg/dL (0.2 mg/dL) Urine Leukocyte Esterase (NEG) Urine RBC Tntc /HPF (0-2) Urine WBC 5-10 /HPF (0-4) Urine Squamous Epithelial Cells Few /LPF Urine Bacteria Moderate /HPF (0-FEW) White Blood Count 5.2 x10^3/uL (4.0-11.0) Red Blood Count 3.35 x10^6/uL (3.50-5.40) L Hemoglobin 10.6 g/dL (12.0-15.5) L Hematocrit 32.7 % (36.0-47.0) L Mean Corpuscular Volume 98 fL (79-100) Mean Corpuscular Hemoglobin 32 pg (25-35) Mean Corpuscular Hemoglobin Concent 32 g/dL (31-37) Red Cell Distribution Width 17.2 % (11.5-14.5) H Platelet Count 282 x10^3/uL (140-400) Neutrophils (%) (Auto) 77 % (31-73) H Lymphocytes (%) (Auto) 12 % (24-48) L Monocytes (%) (Auto) 9 % (0-9) Eosinophils (%) (Auto) 1 % (0-3) Basophils (%) (Auto) 1 % (0-3) Neutrophils # (Auto) 4.0 x10^3uL (1.8-7.7) Lymphocytes # (Auto) 0.6 x10^3/uL (1.0-4.8) L Monocytes # (Auto) 0.5 x10^3/uL (0.0-1.1) Eosinophils # (Auto) 0.1 x10^3/uL (0.0-0.7) Basophils # (Auto) 0.1 x10^3/uL (0.0-0.2) Prothrombin Time 13.2 SEC (11.7-14.0) Prothrombin Time INR 1.1 (0.8-1.1) PTT 27 SEC (24-38) Sodium Level 144 mmol/L (136-145) Potassium Level 3.5 mmol/L (3.5-5.1) Chloride Level 108 mmol/L (98-107) H Carbon Dioxide Level 23 mmol/L (21-32) Anion Gap 13 (6-14) Blood Urea Nitrogen 15 mg/dL (7-20) Creatinine 4.0 mg/dL (0.6-1.0) H Estimated GFR (Cockcroft-Gault) 13.3 BUN/Creatinine Ratio 4 (6-20) L Glucose Level 143 mg/dL (70-99) H Calcium Level 8.2 mg/dL (8.5-10.1) L Magnesium Level 1.7 mg/dL (1.8-2.4) L Total Bilirubin 0.4 mg/dL (0.2-1.0) Aspartate Amino Transferase (AST) 21 U/L (15-37) Alanine Aminotransferase (ALT) 15 U/L (14-59) Alkaline Phosphatase 143 U/L (46-116) H Total Protein 6.6 g/dL (6.4-8.2) Albumin 2.7 g/dL (3.4-5.0) L Albumin/Globulin Ratio 0.7 (1.0-1.7) L Laboratory Tests 11/24/16 11:10 Laboratory Tests 11/24/16 11:10 EKG EKG [] Radiology/Procedures Radiology/Procedures [] Course & Med Decision Making Course & Med Decision Making Patient with nonspecific blood in her urine. She does make some urine although on the amount may vary. She is on aspirin and Plavix making it easier for her to bleed. We'll check labs urine and reassess. She does have a urinary tract infection which is likely causing some inflammation and being on aspirin and Plavix she is not able to stop bleeding very well. She is on the Plavix that she had a stent placed 6-7 years ago. I will tell her to go down from a full dose aspirin 2 baby dose as well will she is still bleeding. Both her to follow with her primary care provider either tomorrow or Monday for a recheck as she may be able to get back on her regular dose medications if the bleeding has stopped. Patient feels well and is in no obvious distress with normal vital signs and she'll be discharged in stable condition. He shouldn't aware and agreeable with plan for discharge and verbalized understanding of the need for short-term follow-up and strict ER return precautions discussed including worsening pain bleeding dizziness or other general concerns. Dragon Disclaimer Dragon Disclaimer This electronic medical record was generated, in whole or in part, using a voice recognition dictation system. Departure Departure Impression: Primary Impression: UTI (urinary tract infection) Additional Impression: Hematuria Disposition: HOME, SELF-CARE Condition: GOOD Referrals: BERTO TORRES MD (PCP) Patient Instructions: Urinary Tract Infection Additional Instructions: TAKE A BABY DOSE ASPIRIN INSTEAD OF THE FULL DOSE. STOP THE PLAVIX FOR NOW UNTIL YOUR URINE CLEARS. FOLLOW WITH YOUR PCP TOMORROW OR MONDAY. THANK YOU! Scripts Cephalexin (KEFLEX) 500 Mg Capsule 1 CAP PO BID, #10 CAP Prov: TITUS MONTIEL DO 11/24/16 Problem Qualifiers Primary Impression: UTI (urinary tract infection) Urinary tract infection type: acute cystitis Hematuria presence: with hematuria Qualified Codes: N30.01 - Acute cystitis with hematuria TITUS MONTIEL DO Nov 24, 2016 09:56
[2016-11-24 10:30] LABS: GLUCOSE,URINE 100 mg/dL (NEG); PROTEIN,URINE >=300 mg/dL (NEG-TRACE)
[2016-11-24 10:40] LABS: RBC,URINE TNTC /HPF (0-2)
[2016-11-24 10:43] LABS: BACTERIA,URINE MODERATE /HPF (0-FEW); SQUAMOUS EPITHELIAL CELL,UR FEW /LPF
[2016-11-24] MEDS ORDERED: cefTRIAXone IM 1 GM VIAL IM ONE (11:15)
[2016-11-24 11:39] LABS: BASO # 0.1 x10^3/uL (0.0-0.2); BASO % 1 % (0-3); EOS % 1 % (0-3); HEMATOCRIT 32.7 % (36.0-47.0); HEMOGLOBIN 10.6 g/dL (12.0-15.5); LYMPH # 0.6 x10^3/uL (1.0-4.8); LYMPH % 12 % (24-48); MEAN CORPUSCULAR HEMOGLOBIN 32 pg (25-35); MEAN CORPUSCULAR HGB CONC 32 g/dL (31-37); MEAN CORPUSCULAR VOLUME 98 fL (79-100); MONO % 9 % (0-9); NEUT % 77 % (31-73); PLATELET COUNT 282 x10^3/uL (140-400); RED BLOOD COUNT 3.35 x10^6/uL (3.50-5.40); RED CELL DISTRIBUTION WIDTH 17.2 % (11.5-14.5); WHITE BLOOD COUNT 5.2 x10^3/uL (4.0-11.0)
[2016-11-24 11:50] LABS: CALCIUM 8.2 mg/dL (8.5-10.1); GFR 13.3; POTASSIUM 3.5 mmol/L (3.5-5.1)
[2016-11-24 11:51] LABS: INR 1.1 (0.8-1.1); PROTHROMBIN TIME PATIENT 13.2 SEC (11.7-14.0)
[2016-11-24 11:57] LABS: ALBUMIN 2.7 g/dL (3.4-5.0); ALBUMIN/GLOBULIN RATIO 0.7 (1.0-1.7); MAGNESIUM 1.7 mg/dL (1.8-2.4); TOTAL BILIRUBIN 0.4 mg/dL (0.2-1.0); TOTAL PROTEIN 6.6 g/dL (6.4-8.2)
[2016-11-24 12:32] VITALS: BP 165/74
[2016-11-24] MEDS ORDERED: CEPH-264 PO (12:35)
== END 2016-11-24 12:46 | disposition home or self-care (01) ==
LOC: ER 09:35
DX: N30.01 Acute cystitis with hematuria (principal); I13.0 Hypertensive heart and chronic kidney disease with heart failure and stage 1 through stage 4 chronic kidney disease, or unspecified chronic kidney disease; E11.22 Type 2 diabetes mellitus with diabetic chronic kidney disease; N18.9 Chronic kidney disease, unspecified; I50.9 Heart failure, unspecified; J44.9 Chronic obstructive pulmonary disease, unspecified; E78.00 Pure hypercholesterolemia, unspecified; I25.2 Old myocardial infarction; Z86.718 Personal history of other venous thrombosis and embolism; Z95.5 Presence of coronary angioplasty implant and graft; Z91.041 Radiographic dye allergy status; Z99.2 Dependence on renal dialysis
CPT/HCPCS: 36415; 80053; 81001; 83735; 85025; 85610; 85730; 87086; 96372; 99284; J0696

== ENCOUNTER 2017-03-26 15:31 | Inpatient (IN) | payer MEDICARE, BC ==
[~2017-03-26] VITALS: Ht 154.9 cm; Wt 75.5 kg
[~2017-03-26 15:31] MED LIST changes: +CEPH-264 PO; -METO100T2 PO; +METO100T7 PO; -METO50TA2 PO; +METO50TA6 PO
[2017-03-26] MEDS ORDERED: IPRATRPIUM/ALBUTEROL 0.5/2.5MG 3 ML NEBU. NEB ONE (16:30)
--- NOTE | 2017-03-26 17:00 | PHYS DOC ---
Past Medical History Past Medical History: CHF, COPD, Diabetes-Type II, DVT, High Cholesterol, Hypertension, [place], Renal Disease, Renal Failure, Other Additional Past Medical Histor: dialysis MWF, O2 4LNC @ home, CPAP Past Surgical History: Angioplasty, Other Additional Past Surgical Histo: cardiac cath with stent placement, rotator cuff surgery,AV graft, cataract Alcohol Use: None Drug Use: None Adult General Chief Complaint Chief Complaint: SHORTNESS OF BREATH HPI HPI This is a 71-year-old female with history of end-stage renal disease presenting with a productive cough for the past 2 weeks with shortness of breath worse with exertion and associated with green yellow sputum. She denies any fevers at home. She also has intermittent upper epigastric abdominal pain that is sharp shooting pain that currently is resolved. She dialyzes on Monday and Monday. Baseline oxygen requirement around 3 or 4 L/m. Review of systems was negative for chest pain. Positive for fever cough and intermittent abdominal pain. All other review of systems is negative unless otherwise noted in history of present illness. ED course: 71-year-old female presenting with cough productive with shortness of breath. On arrival she is a low-grade temperature. Also hypertension present on arrival. Physical exam shows coarse breath sounds bilaterally. Otherwise abdomen is soft nondistended nontender to palpation. No rebound tenderness or guarding present. Normal bowel sounds. Minimal edema in the legs bilaterally. The patient does not have unilateral leg swelling or redness. Patient is given a DuoNeb along with chest x-ray performed and blood work obtained in the emergency department. Chest x-ray shows mild vascular congestion. ProBNP elevated. Patient's symptomatology was suggestive of pneumonia though her x-ray doesn't show any focal infiltrate. Give the patient IV antibiotics after blood cultures were obtained. I believe the patient to not be hypovolemic and so judicious fluid management was used. The patient was admitted to the hospital for further evaluation workup and care. Review of Systems Review of Systems SEE ABOVE. Current Medications Current Medications Current Medications Medications (Trade) Dose Ordered Sig/Eric Start Time Stop Time Status Last Admin Dose Admin Acetaminophen (Tylenol) 650 mg PRN Q6HRS PRN 03/26/17 18:30 Al Hydroxide/Mg Hydroxide (Mylanta Plus Xs) 30 ml PRN Q3HRS PRN 03/26/17 18:30 Albuterol/ Ipratropium (Duoneb) 3 ml 1X ONCE 03/26/17 16:30 03/26/17 16:31 DC 03/26/17 16:54 3 ML Azithromycin 250 ml @ 250 mls/hr 1X ONCE 03/26/17 18:00 03/26/17 18:59 DC 03/26/17 18:03 250 MLS/HR Bisacodyl (Dulcolax Supp) 10 mg PRN DAILY PRN 03/26/17 18:30 Calcium Carbonate/ Glycine (Tums) 500 mg PRN Q3HRS PRN 03/26/17 18:30 Ceftriaxone Sodium 50 ml @ 100 mls/hr 1X ONCE 03/26/17 18:00 03/26/17 18:29 DC 03/26/17 18:03 100 MLS/HR Lactulose 20 gm PRN Q12HR PRN 03/26/17 18:30 Morphine Sulfate 1 mg PRN Q1HR PRN 03/26/17 18:30 Ondansetron HCl (Zofran) 4 mg PRN Q6HRS PRN 03/26/17 18:30 Oxycodone HCl (Roxicodone) 5 mg PRN Q3HRS PRN 03/26/17 18:30 Prochlorperazine (Compazine) 25 mg PRN Q12HR PRN 03/26/17 18:30 Prochlorperazine Edisylate (Compazine) 10 mg PRN Q6HRS PRN 03/26/17 18:30 Zolpidem Tartrate (Ambien) 5 mg PRN QHS PRN 03/26/17 18:30 Allergies Allergies Allergies Coded Allergies Type Severity Reaction Last Updated Verified Iodinated Contrast- Oral and IV Dye Allergy Intermediate 11/24/16 Yes Physical Exam Physical Exam SEE ABOVE Constitutional: Well developed, well nourished, no acute distress, non-toxic appearance. HENT: Normocephalic, atraumatic, bilateral external ears normal, oropharynx moist, no oral exudates, nose normal. [] Eyes: PERRLA, EOMI, conjunctiva normal, no discharge. [] Neck: Normal range of motion, no tenderness, supple, no stridor. [] Cardiovascular:Heart rate regular rhythm, no murmur Lungs & Thorax: SEE ABOVE Abdomen: Bowel sounds normal, soft, no tenderness, no masses, no pulsatile masses. [] Skin: Warm, dry, no erythema, no rash. [] Back: No tenderness, no CVA tenderness. Extremities: No tenderness, no cyanosis, no clubbing, ROM intact, no edema. Neurologic: Alert and oriented X 3, normal motor function, normal sensory function, no focal deficits noted. [] Psychologic: Affect normal, judgement normal, mood normal. [] Current Patient Data Vital Signs Vital Signs Date Time Temp Pulse Resp B/P (MAP) Pulse Ox O2 Delivery O2 Flow Rate FiO2 03/26/17 17:59 94 172/70 (104) 99 Nasal Cannula 4.0 03/26/17 16:17 99.6 24 99.6 Lab Values Laboratory Tests Test 03/26/17 17:13 03/26/17 17:50 White Blood Count 12.4 x10^3/uL (4.0-11.0) H Red Blood Count 2.69 x10^6/uL (3.50-5.40) L Hemoglobin 8.6 g/dL (12.0-15.5) L Hematocrit 27.6 % (36.0-47.0) L Mean Corpuscular Volume 103 fL (79-100) H Mean Corpuscular Hemoglobin 32 pg (25-35) Mean Corpuscular Hemoglobin Concent 31 g/dL (31-37) Red Cell Distribution Width 16.0 % (11.5-14.5) H Platelet Count 310 x10^3/uL (140-400) Neutrophils (%) (Auto) 85 % (31-73) H Lymphocytes (%) (Auto) 5 % (24-48) L Monocytes (%) (Auto) 10 % (0-9) H Eosinophils (%) (Auto) 0 % (0-3) Basophils (%) (Auto) 0 % (0-3) Neutrophils # (Auto) 10.5 x10^3uL (1.8-7.7) H Lymphocytes # (Auto) 0.6 x10^3/uL (1.0-4.8) L Monocytes # (Auto) 1.2 x10^3/uL (0.0-1.1) H Eosinophils # (Auto) 0.0 x10^3/uL (0.0-0.7) Basophils # (Auto) 0.0 x10^3/uL (0.0-0.2) Sodium Level 145 mmol/L (136-145) Potassium Level 4.0 mmol/L (3.5-5.1) Chloride Level 108 mmol/L (98-107) H Carbon Dioxide Level 27 mmol/L (21-32) Anion Gap 10 (6-14) Blood Urea Nitrogen 32 mg/dL (7-20) H Creatinine 6.8 mg/dL (0.6-1.0) H Estimated GFR (Cockcroft-Gault) 7.2 Glucose Level 125 mg/dL (70-99) H Calcium Level 8.2 mg/dL (8.5-10.1) L Total Bilirubin 0.5 mg/dL (0.2-1.0) Direct Bilirubin 0.1 mg/dL (0.0-0.2) Aspartate Amino Transferase (AST) 18 U/L (15-37) Alanine Aminotransferase (ALT) 15 U/L (14-59) Alkaline Phosphatase 112 U/L (46-116) Troponin I Quantitative < 0.017 ng/mL (0.000-0.055) [id number]-Type Natriuretic Peptide > 83098 pg/mL (0-124) H Total Protein 6.2 g/dL (6.4-8.2) L Albumin 2.8 g/dL (3.4-5.0) L Lipase 176 U/L (73-393) Lactic Acid Level 1.3 mmol/L (0.4-2.0) Laboratory Tests 03/26/17 17:13 Laboratory Tests 03/26/17 17:13 EKG EKG [] Radiology/Procedures Radiology/Procedures [] Course & Med Decision Making Course & Med Decision Making Pertinent Labs and Imaging studies reviewed. (See chart for details) [] Dragon Disclaimer Dragon Disclaimer This electronic medical record was generated, in whole or in part, using a voice recognition dictation system. Departure Departure Impression: Primary Impression: SOB (shortness of breath) Additional Impressions: Cough CAP (community acquired pneumonia) Disposition: ADMITTED INPATIENT Admitting Physician: Candida Hill Condition: STABLE Referrals: BERTO TORRES MD (PCP) Problem Qualifiers ISABEL RAMOS MD Mar 26, 2017 17:00
--- NOTE | 2017-03-26 17:24 | RAD ---
Single view chest 03/26/2017 Clinical indication: Short of breath. Comparison: AP chest 09/07/2016. Findings: There is unchanged moderate enlargement of the cardiac silhouette with mild pulmonary venous congestion. No pleural effusion, pneumothorax or focal consolidation. There is bilateral glenohumeral arthrosis with superior migration of the humeral heads suggestive of rotator cuff tendinopathy. Impression: Moderate cardiomegaly and mild pulmonary venous congestion.
[2017-03-26 17:28] LABS: BASO % 0 % (0-3); EOS % 0 % (0-3); HEMATOCRIT 27.6 % (36.0-47.0); HEMOGLOBIN 8.6 g/dL (12.0-15.5); LYMPH # 0.6 x10^3/uL (1.0-4.8); LYMPH % 5 % (24-48); MEAN CORPUSCULAR HEMOGLOBIN 32 pg (25-35); MEAN CORPUSCULAR HGB CONC 31 g/dL (31-37); MEAN CORPUSCULAR VOLUME 103 fL (79-100); MONO % 10 % (0-9); NEUT % 85 % (31-73); PLATELET COUNT 310 x10^3/uL (140-400); RED BLOOD COUNT 2.69 x10^6/uL (3.50-5.40); WHITE BLOOD COUNT 12.4 x10^3/uL (4.0-11.0)
[2017-03-26 17:35] LABS: CALCIUM 8.2 mg/dL (8.5-10.1); CREATININE 6.8 mg/dL (0.6-1.0); GFR 7.2
[2017-03-26 17:41] LABS: ALBUMIN 2.8 g/dL (3.4-5.0); DIRECT BILIRUBIN 0.1 mg/dL (0.0-0.2); TOTAL BILIRUBIN 0.5 mg/dL (0.2-1.0); TOTAL PROTEIN 6.2 g/dL (6.4-8.2)
[2017-03-26] MEDS ORDERED: AZITHRMYCN 500MG IVPB FOR OMNI 250 ML IV ONE (18:00)
[2017-03-26] MEDS ORDERED: PROCHLORPERAZINE 25 MG SUPP.RECT. PR PRN (18:30)
[2017-03-26] MEDS ORDERED: LACTULOSE 20 GM/30 ML SOLUTION. PO PRN (18:30)
[2017-03-26] MEDS ORDERED: PROCHLORPERAZINE 10 MG/2 ML VIAL. IV PRN (18:30)
[2017-03-26] MEDS ORDERED: BISACODYL 10 MG SUPP.RECT. PR PRN (18:30)
[2017-03-26] MEDS ORDERED: ONDANSETRON PF 4 MG/2 ML VIAL. IV PRN (18:30)
[2017-03-26] MEDS ORDERED: oxyCODONE IR 5 MG TABLET PO PRN (18:30)
[2017-03-26] MEDS ORDERED: MAG HYDROX/ALUMINUM HYD/SIMETH 30 ML ORAL.SUSP PO PRN (18:30)
[2017-03-26] MEDS ORDERED: MORPHINE SULFATE 2 MG/ML DISP.SYRIN. IV PRN (18:30)
[2017-03-26] MEDS ORDERED: ZOLPIDEM 5 MG TABLET. PO PRN (18:30)
[2017-03-26] MEDS ORDERED: CALCIUM CARBONATE 500 MG TAB.CHEW PO PRN (18:30)
[2017-03-26] MEDS ORDERED: ACETAMINOPHEN 325 MG TABLET. PO PRN (18:30)
[2017-03-26] MEDS ORDERED: ALBUTEROL SULFATE 2.5 MG/3 ML NEBU. NEB PRN (19:00)
--- NOTE | 2017-03-26 19:05 | PDOC1 ---
History and Physical Date of Admission Date of Admission DATE: 03/26/17 TIME: 19:00 Identification/Chief Complaint Chief Complaint Cough productive, SOA, fever Problems: Source Source: Caregiver, Chart review, Patient History of Present Illness History of Present Illness Very pleasant 71-year-old -[place] female, PCP Dr. Dubois, ESRD on dialysis Monday, compliant did not miss any dialysis sessions. Comes in because of few day history about a week of cough fever SOA, cough productive of some sputum, she shows a white count of 12.4 hemoglobin 8.6 platelets 310. Creatinine 6.8 the rest of the labs okay. She COPD on 6 L nasal cannula. She has a lot of comorbidities including CHF. She she was a smoker quit 8 years ago to the date. The rest of her past medical history is as below. She was last here September 2016 for the following below: Still makes decent urine as per her account 1. Hypoxic respi failure, POA 2. CAP 3. 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 DIstant smoking hx, with 8 years ago 5. SIRS, POA 6. MIld to mod PCM 7,. mild Hypokalemia Other chronic Diagnoses: chronic DIAstolic congestive heart failure. ESRD on HD MWF Diabetes mellitus Hypertension Peripheral artery disease. Hyperlipidemia. Diverticulosis chronic anemia , ESRD . Anxiety NOS abd aneurysm 4cm She Is admitted subsequently for dialysis and CAP coverage she Does cough in between phrases during my H&P. denies any recent sick contacts or recent travels Past Medical History Cardiovascular: CAD, CHF, HTN, Hyperlipidemia, Other Pulmonary: Asthma, COPD, Other CENTRAL NERVOUS SYSTEM: Other GI: Diverticulosis Heme/Onc: Anemia NOS Psych: Anxiety Rheumatologic: No pertinent hx Infectious disease: No pertinent hx Renal/: Chronic renal failure Endocrine: Diabetes Past Surgical History Past Surgical History: Appendectomy, Arthroscopy, Other Family History Family History: Coronary Artery Disease, Diabetes, Hypertension Social History ALCOHOL: none Drugs: None Current Problem List Problem List Problems Medical Problems: (1) Cough Status: Acute (2) SOB (shortness of breath) Status: Acute Problems: Current Medications Current Medications Current Medications Albuterol/ Ipratropium (Duoneb) 3 ml 1X ONCE NEB Last administered on t 16:54; Start 03/26/17 at 16:30; Stop 03/26/17 at 16:31; Status DC Azithromycin 250 ml @ 250 mls/hr 1X ONCE IV Last administered on 03/26/17t 18:03; Start 03/26/17 at 18:00; Stop 03/26/17 at 18:59 Ceftriaxone Sodium 50 ml @ 100 mls/hr 1X ONCE IV Last administered on t 18:03; Start 03/26/17 at 18:00; Stop 03/26/17 at 18:29; Status DC Ondansetron HCl (Zofran) 4 mg PRN Q6HRS PRN IV NAUSEA/VOMITING; Start at 18:30 Prochlorperazine Edisylate (Compazine) 10 mg PRN Q6HRS PRN IV NAUSEA/VOMITING; Start 03/26/17 at 18:30 Prochlorperazine (Compazine) 25 mg PRN Q12HR PRN DC NAUSEA/VOMITING; Start at 18:30 Al Hydroxide/Mg Hydroxide (Mylanta Plus Xs) 30 ml PRN Q3HRS PRN PO HEARTBURN / GAS; Start 03/26/17 at 18:30 Calcium Carbonate/ Glycine (Tums) 500 mg PRN Q3HRS PRN PO UPSET STOMACH; Start 03/26/17 at 18:30 Zolpidem Tartrate (Ambien) 5 mg PRN QHS PRN PO INSOMNIA, MAY REPEAT IN 1HR; Start 03/26/17 at 18:30 Oxycodone HCl (Roxicodone) 5 mg PRN Q3HRS PRN PO BREAKTHROUGH PAIN; Start at 18:30 Morphine Sulfate 1 mg PRN Q1HR PRN IV PAIN; Start 03/26/17 at 18:30 Acetaminophen (Tylenol) 650 mg PRN Q6HRS PRN PO Headaches, Temp > 101.5F; Start 03/26/17 at 18:30 Docusate Sodium (Colace) 100 mg BID PO ; Start 03/26/17 at 21:00 Lactulose 20 gm PRN Q12HR PRN PO CONSTIPATION; Start 03/26/17 at 18:30 Bisacodyl (Dulcolax Supp) 10 mg PRN DAILY PRN DC CONSTIPATION; Start 03/26/17 at 18:30 Lactobacillus Rhamnosus (Culturelle) 1 cap BID PO ; Start 03/26/17 at 21:00 Active Scripts Active Keflex (Cephalexin) 500 Mg Capsule 1 Cap PO BID Lisinopril 20 Mg Tablet 20 Tab PO DAILY [Albuterol Sulfate] 2.5 MG/3 ML Nebu 2.5 Mg NEB PRN Q4HRS PRN Tradjenta (Linagliptin) 5 Mg Tablet 5 Mg PO DAILY Reported Breo Ellipta 100-25 Mcg Inh (Fluticasone/Vilanterol) 1 Each Aer.pow.ba 1 Puff IH DAILY Hydroxyzine Hcl 25 Mg Tablet 1 Tab PO 1X PRN PRN Furosemide 40 Mg Tablet 1 Tab PO DAILY Toprol Xl (Metoprolol Succinate) 100 Mg Tab.er.24h 100 Mg PO DAILY Amlodipine Besylate 5 Mg Tablet 10 Mg PO DAILY Proair Hfa Inhaler (Albuterol Sulfate) 8.5 Gm Hfa.aer.ad 2 Puff INH PRN Q6HRS PRN Lantus Solostar (Insulin Glargine,Hum.rec.anlog) 100 Unit/1 Ml Insuln.pen 20 Unit SQ QHS Atorvastatin Calcium 20 Mg Tablet 40 Mg PO DAILY Aspirin 325 Mg Tablet 1 Tab PO DAILY Plavix (Clopidogrel Bisulfate) 75 Mg Tablet 75 Mg PO DAILY Allergies Allergies: Coded Allergies: Iodinated Contrast- Oral and IV Dye (Verified Allergy, Intermediate, ) ROS Review of System As per history of present illness all else is -14 point systems reviewed with her Physical Exam General: Alert, Oriented X3, Cooperative, No acute distress, Other (coughs in between phrases/sentences during my interaction with her) HEENT: Atraumatic, PERRLA, EOMI Lungs: Normal air movement, Other (dullness to percussion bilateral, decreased breath sounds at the bases no wheezes) Heart: S1S2, RRR, no gallops, no murmurs Cardiovascular: S1, S2 Breasts: Normal, Rt breast nml w/o mass, Lt breast nml w/o mass, Nipples normal Abdomen: Normal bowel sounds, Soft, No tenderness, No hepatosplenomegaly, No masses Male Genitals Exam: normal genitalia, normal prostate Rectal Exam: not examined PELVIC: Nml ext genitalia Extremities: No clubbing, No cyanosis, No edema, Normal pulses, No tenderness/ swelling Skin: No rashes, No breakdown, No significant lesion Neuro: Normal gait, Normal speech, Strength at 5/5 X4 ext, Normal tone, Sensation intact, Cranial nerves 3-12 NL, Reflexes 2+ Psych/Mental Status: Mental status NL, Mood NL Vitals Vitals Vital Signs Date Time Temp Pulse Resp B/P (MAP) Pulse Ox O2 Delivery O2 Flow Rate FiO2 03/26/17 17:59 94 172/70 (104) 99 Nasal Cannula 4.0 03/26/17 16:17 99.6 24 99.6 Labs Labs Laboratory Tests Test 03/26/17 17:13 03/26/17 17:50 White Blood Count 12.4 x10^3/uL (4.0-11.0) Red Blood Count 2.69 x10^6/uL (3.50-5.40) Hemoglobin 8.6 g/dL (12.0-15.5) Hematocrit 27.6 % (36.0-47.0) Mean Corpuscular Volume 103 fL (79-100) Mean Corpuscular Hemoglobin 32 pg (25-35) Mean Corpuscular Hemoglobin Concent 31 g/dL (31-37) Red Cell Distribution Width 16.0 % (11.5-14.5) Platelet Count 310 x10^3/uL (140-400) Neutrophils (%) (Auto) 85 % (31-73) Lymphocytes (%) (Auto) 5 % (24-48) Monocytes (%) (Auto) 10 % (0-9) Eosinophils (%) (Auto) 0 % (0-3) Basophils (%) (Auto) 0 % (0-3) Neutrophils # (Auto) 10.5 x10^3uL (1.8-7.7) Lymphocytes # (Auto) 0.6 x10^3/uL (1.0-4.8) Monocytes # (Auto) 1.2 x10^3/uL (0.0-1.1) Eosinophils # (Auto) 0.0 x10^3/uL (0.0-0.7) Basophils # (Auto) 0.0 x10^3/uL (0.0-0.2) Sodium Level 145 mmol/L (136-145) Potassium Level 4.0 mmol/L (3.5-5.1) Chloride Level 108 mmol/L (98-107) Carbon Dioxide Level 27 mmol/L (21-32) Anion Gap 10 (6-14) Blood Urea Nitrogen 32 mg/dL (7-20) Creatinine 6.8 mg/dL (0.6-1.0) Estimated GFR (Cockcroft-Gault) 7.2 Glucose Level 125 mg/dL (70-99) Calcium Level 8.2 mg/dL (8.5-10.1) Total Bilirubin 0.5 mg/dL (0.2-1.0) Direct Bilirubin 0.1 mg/dL (0.0-0.2) Aspartate Amino Transf (AST/SGOT) 18 U/L (15-37) Alanine Aminotransferase (ALT/SGPT) 15 U/L (14-59) Alkaline Phosphatase 112 U/L (46-116) Troponin I Quantitative < 0.017 ng/mL (0.000-0.055) UR-Icv-Y-Type Natriuretic Peptide > 89863 pg/mL (0-124) Total Protein 6.2 g/dL (6.4-8.2) Albumin 2.8 g/dL (3.4-5.0) Lipase 176 U/L (73-393) Lactic Acid Level 1.3 mmol/L (0.4-2.0) Laboratory Tests Test 03/26/17 17:13 03/26/17 17:50 White Blood Count 12.4 x10^3/uL (4.0-11.0) Red Blood Count 2.69 x10^6/uL (3.50-5.40) Hemoglobin 8.6 g/dL (12.0-15.5) Hematocrit 27.6 % (36.0-47.0) Mean Corpuscular Volume 103 fL (79-100) Mean Corpuscular Hemoglobin 32 pg (25-35) Mean Corpuscular Hemoglobin Concent 31 g/dL (31-37) Red Cell Distribution Width 16.0 % (11.5-14.5) Platelet Count 310 x10^3/uL (140-400) Neutrophils (%) (Auto) 85 % (31-73) Lymphocytes (%) (Auto) 5 % (24-48) Monocytes (%) (Auto) 10 % (0-9) Eosinophils (%) (Auto) 0 % (0-3) Basophils (%) (Auto) 0 % (0-3) Neutrophils # (Auto) 10.5 x10^3uL (1.8-7.7) Lymphocytes # (Auto) 0.6 x10^3/uL (1.0-4.8) Monocytes # (Auto) 1.2 x10^3/uL (0.0-1.1) Eosinophils # (Auto) 0.0 x10^3/uL (0.0-0.7) Basophils # (Auto) 0.0 x10^3/uL (0.0-0.2) Sodium Level 145 mmol/L (136-145) Potassium Level 4.0 mmol/L (3.5-5.1) Chloride Level 108 mmol/L (98-107) Carbon Dioxide Level 27 mmol/L (21-32) Anion Gap 10 (6-14) Blood Urea Nitrogen 32 mg/dL (7-20) Creatinine 6.8 mg/dL (0.6-1.0) Estimated GFR (Cockcroft-Gault) 7.2 Glucose Level 125 mg/dL (70-99) Calcium Level 8.2 mg/dL (8.5-10.1) Total Bilirubin 0.5 mg/dL (0.2-1.0) Direct Bilirubin 0.1 mg/dL (0.0-0.2) Aspartate Amino Transf (AST/SGOT) 18 U/L (15-37) Alanine Aminotransferase (ALT/SGPT) 15 U/L (14-59) Alkaline Phosphatase 112 U/L (46-116) Troponin I Quantitative < 0.017 ng/mL (0.000-0.055) GK-Bmv-O-Type Natriuretic Peptide > 11449 pg/mL (0-124) Total Protein 6.2 g/dL (6.4-8.2) Albumin 2.8 g/dL (3.4-5.0) Lipase 176 U/L (73-393) Lactic Acid Level 1.3 mmol/L (0.4-2.0) VTE Prophylaxis Ordered VTE Prophylaxis Devices: Yes VTE Pharmacological Prophylaxi: Yes Assessment/Plan Assessment/Plan A/P: ESRD on hemodialysis Monday Anemia of ESRD Chronic diastolic heart failure compensated . DIstant smoking hx, quit 8 years ago Diabetes mellitus Hypertension Peripheral artery disease. Hyperlipidemia. Diverticulosis . Anxiety NOS abd aneurysm 4cm, chronic, stable PLAN: admit 2 midnights Rocephin azithromycin CAP Coverage pulmo consults DuoNeb's, cough medicines renal consult dialysis per renal Sliding scale insulin Resume home meds- I'm awaiting home meds PT OT Further conditions pending above Sputum Gram stain and culture seen at ER CARMELA TAYLOR MD Mar 26, 2017 19:05
[2017-03-26] MEDS ORDERED: DEXTROSE 50% 25 GM / 50ML DISP.SYRIN. IV PRN (19:15)
[2017-03-26] MEDS ORDERED: HYDROXYZINE HCL PO PRN (19:15)
[2017-03-26] MEDS ORDERED: NON FORMULARY ITEM ([Albuterol Sulfate] (Ventolin Neb Soln) 2.5 MG) NEB PRN (19:15)
[2017-03-26] MEDS: INSULIN DETEMIR 300 UNITS/3 ML INSULN.PEN. SQ SCH (21:00)
[2017-03-26] MEDS ORDERED: ATORVASTATIN CALCIUM 20 MG TABLET PO SCH (21:00)
[2017-03-26] MEDS: ATORVASTATIN CALCIUM 40 MG TABLET. PO SCH (21:15)
[2017-03-26] MEDS: guaiFENesin DM 200MG/20MG 10 ML SYRUP PO SCH (21:15)
[2017-03-26] MEDS: LACTOBACILLUS RHAMNOSUS GG 1 CAPSULE. PO SCH (21:15)
[2017-03-26] MEDS: BENZONATATE 100 MG CAPSULE. PO SCH (21:15)
[2017-03-26] MEDS: DOCUSATE SODIUM 100 MG CAPSULE. PO SCH (21:15)
[2017-03-26] MEDS: IPRATRPIUM/ALBUTEROL 0.5/2.5MG 3 ML NEBU. NEB SCH (22:23)
[2017-03-26 23:00] VITALS: BP 152/59
[2017-03-27 03:00] VITALS: BP 148/56
[2017-03-27 04:12] LABS: BASO % 0 % (0-3); EOS % 0 % (0-3); HEMATOCRIT 25.9 % (36.0-47.0); HEMOGLOBIN 7.9 g/dL (12.0-15.5); LYMPH # 0.5 x10^3/uL (1.0-4.8); LYMPH % 4 % (24-48); MEAN CORPUSCULAR HEMOGLOBIN 31 pg (25-35); MEAN CORPUSCULAR HGB CONC 31 g/dL (31-37); MEAN CORPUSCULAR VOLUME 103 fL (79-100); MONO % 9 % (0-9); NEUT % 87 % (31-73); PLATELET COUNT 301 x10^3/uL (140-400); RED BLOOD COUNT 2.52 x10^6/uL (3.50-5.40); WHITE BLOOD COUNT 12.6 x10^3/uL (4.0-11.0)
[2017-03-27 04:22] LABS: INR 1.2 (0.8-1.1); PROTHROMBIN TIME PATIENT 14.3 SEC (11.7-14.0)
[2017-03-27 04:57] LABS: OBC FLU VALID
--- NOTE | 2017-03-27 06:10 | EKG ---
[facility] [address] [place] [address] Test Date: 2017-03-26 Test Time: 16:18:42 Pat Name: WANDA PRABHAKAR Department: Room: Gender: F Instrument Checker: : 1945 Requested By: SIABEL RAMOS Order Number: [id number] Reading MD: Measurements Intervals [place] Rate: 87 P: -58 [place]: 100 QRS: -56 QRSD: 144 T: -7 QT: 396 QTc: 477 Interpretive Statements SINUS RHYTHM VENTRICULAR PREMATURE COMPLEX(ES) ATRIAL PREMATURE COMPLEX(ES) ABNORMAL LEFT AXIS DEVIATION RIGHT BUNDLE BRANCH BLOCK RVH WITH REPOLARIZATION ABNORMALITY QRS(T) CONTOUR ABNORMALITY CONSISTENT WITH INFERIOR INFARCT AGE UNDETERMINED ABNORMAL ECG No previous ECG available for comparison
[2017-03-27 07:00] VITALS: BP 134/67
[2017-03-27] MEDS ORDERED: CLOPIDOGREL BISULFATE 75 MG TABLET PO SCH (07:00)
[2017-03-27] MEDS: INSULIN ASPART 300 UNITS/3 ML INSULN.PEN SQ SCH ×3 (08:00→17:00)
[2017-03-27 08:04] LABS: ANISOCYTOSIS SLIGHT; HYPOCHROMIA SLIGHT; PLT ESTIMATE ADEQUATE (ADEQUATE); POLYCHROMASIA SLIGHT
[2017-03-27] MEDS: IPRATRPIUM/ALBUTEROL 0.5/2.5MG 3 ML NEBU. NEB SCH ×4 (08:05→20:38)
[2017-03-27] MEDS: BUDESONIDE 0.5 MG/2 ML NEBU. NEB SCH ×2 (08:05→20:38)
--- NOTE | 2017-03-27 08:27 | CONS ---
DATE OF CONSULTATION: ATTENDING PHYSICIAN: Dr. Hill. REASON FOR CONSULTATION: Dyspnea. HISTORY OF PRESENT ILLNESS: The patient is a 71-year-old -[place] female who has history of end-stage renal disease, on hemodialysis. She has history of oxygen-dependent COPD, uses oxygen 4 liters. She was brought into the hospital complaining of shortness of breath. She also had a cough with yellow sputum production and some subjective fever at home. Denies any chest pain, no headaches, no nausea, vomiting or diarrhea. Her chest x-ray was reviewed and it shows cardiomegaly and mild congestive heart failure. She is currently requiring 5 liters of oxygen. PAST MEDICAL HISTORY: History of chronic respiratory failure, history of COPD, history of end-stage renal disease, on hemodialysis, history of diabetes, hypertension, peripheral vascular disease, diverticulosis, anemia. PAST SURGICAL HISTORY: No recent surgeries. ALLERGIES: IV DYE. MEDICATIONS: Reviewed as listed in the MRAD including antibiotics. REVIEW OF SYSTEMS: Twelve-point system obtained. Pertinent positives discussed in history of present illness, otherwise noncontributory. All systems that were negative were reviewed as well. SOCIAL HISTORY: Smoked for 40 years before quitting. FAMILY HISTORY: Noncontributory to lungs. PHYSICAL EXAMINATION: VITAL SIGNS: Stable. Pulse ox 97% on 4 liters. HEENT: Sclerae nonicteric. NECK: Supple. LUNGS: Diminished breath sounds at the bases. CARDIOVASCULAR: Regular rate and rhythm. ABDOMEN: Soft. EXTREMITIES: With no pitting edema. LABORATORY DATA: Reviewed. White cell count 12.6, hemoglobin 7.9, platelets are 301. BUN is 32 and a creatinine of 6.8. Albumin 2.8. IMPRESSION: 1. Qykri-fd-agdoree hypoxic respiratory failure secondary to combination of wolse-vp-qtkepvo diastolic heart failure and acute bronchitis. 2. History of chronic respiratory failure secondary to chronic obstructive pulmonary disease. Now comes in with mild exacerbation. 3. End-stage renal disease, on hemodialysis. 4. Cough with yellow sputum production consistent with bronchitis. No definite consolidation is seen on the chest x-ray. 5. End-stage renal disease. 6. Anemia. RECOMMENDATIONS: 1. Continue present oxygen with slowly wean to baseline of 4 liters. 2. Agree with present empiric antibiotic Rocephin and Zithromax. 3. Continue bronchodilators. 4. Hemodialysis with increased ultrafiltration. 5. We will follow the chest x-ray in few days after dialysis. SHEILA ZHENG MD DR: AJITH/courtney JOB#: [id number] / [id number]
[2017-03-27] MEDS: LISINOPRIL 40 MG TABLET. PO SCH (09:45)
[2017-03-27] MEDS: guaiFENesin DM 200MG/20MG 10 ML SYRUP PO SCH ×4 (09:45→21:57)
[2017-03-27] MEDS: BENZONATATE 100 MG CAPSULE. PO SCH ×3 (09:46→21:57)
[2017-03-27] MEDS: METOPROLOL SUCC 24HR ER 100 MG TAB.ER.24H. PO SCH (09:46)
[2017-03-27] MEDS: DOCUSATE SODIUM 100 MG CAPSULE. PO SCH ×2 (09:46→21:57)
[2017-03-27] MEDS: amLODIPine BESYLATE 10 MG TABLET PO SCH (09:46)
[2017-03-27] MEDS: CETIRIZINE HCL 10 MG TABLET. PO SCH (09:47)
[2017-03-27] MEDS: LINAGLIPTIN 5 MG TABLET PO SCH (09:47)
[2017-03-27] MEDS: FUROSEMIDE 40 MG TABLET. PO SCH (09:47)
[2017-03-27] MEDS: ASPIRIN 325 MG TABLET PO SCH (09:47)
[2017-03-27] MEDS: LACTOBACILLUS RHAMNOSUS GG 1 CAPSULE. PO SCH ×2 (09:47→21:57)
[2017-03-27 10:52] VITALS: BP 151/51
--- NOTE | 2017-03-27 11:10 | PDOC2 ---
CONSULT Date of Consult Date of Consult DATE: 03/27/17 TIME: 10:53 Reason for Consult Reason for Consult: ESRD - HD Referring Physician Referring Physician: Dr iHll Identification/Chief Complaint Chief Complaint SOB, Cough + Phlegm Problems: Source Source: Chart review, Patient Past Medical History Cardiovascular: CAD, CHF, HTN, Hyperlipidemia, Other Pulmonary: Asthma, COPD, Other CENTRAL NERVOUS SYSTEM: Other GI: Diverticulosis Heme/Onc: Anemia NOS Psych: Anxiety Rheumatologic: No pertinent hx Infectious disease: No pertinent hx Renal/: Chronic renal failure Endocrine: Diabetes Past Surgical History Past Surgical History: Appendectomy, Arthroscopy, Other Family History Family History: Coronary Artery Disease, Diabetes, Hypertension Social History ALCOHOL: none Drugs: None Lives: with Family Domestic Violence: Neg Current Problem List Problem List Problems Medical Problems: (1) Cough Status: Acute (2) SOB (shortness of breath) Status: Acute Current Medications Current Medications Current Medications Albuterol/ Ipratropium (Duoneb) 3 ml 1X ONCE NEB Last administered on 16:54; Start 03/26/17 at 16:30; Stop 03/26/17 at 16:31; Status DC Azithromycin 250 ml @ 250 mls/hr 1X ONCE IV Last administered on 03/26/17 18:03; Start 03/26/17 at 18:00; Stop 03/26/17 at 18:59; Status DC Ceftriaxone Sodium 50 ml @ 100 mls/hr 1X ONCE IV Last administered on 18:03; Start 03/26/17 at 18:00; Stop 03/26/17 at 18:29; Status DC Ondansetron HCl (Zofran) 4 mg PRN Q6HRS PRN IV NAUSEA/VOMITING; Start at 18:30 Prochlorperazine Edisylate (Compazine) 10 mg PRN Q6HRS PRN IV NAUSEA/VOMITING; Start 03/26/17 at 18:30 Prochlorperazine (Compazine) 25 mg PRN Q12HR PRN OR NAUSEA/VOMITING; Start at 18:30 Al Hydroxide/Mg Hydroxide (Mylanta Plus Xs) 30 ml PRN Q3HRS PRN PO HEARTBURN / GAS; Start 03/26/17 at 18:30 Calcium Carbonate/ Glycine (Tums) 500 mg PRN Q3HRS PRN PO UPSET STOMACH; Start 03/26/17 at 18:30 Zolpidem Tartrate (Ambien) 5 mg PRN QHS PRN PO INSOMNIA, MAY REPEAT IN 1HR; Start 03/26/17 at 18:30 Oxycodone HCl (Roxicodone) 5 mg PRN Q3HRS PRN PO BREAKTHROUGH PAIN; Start at 18:30 Morphine Sulfate 1 mg PRN Q1HR PRN IV PAIN; Start 03/26/17 at 18:30 Acetaminophen (Tylenol) 650 mg PRN Q6HRS PRN PO Headaches, Temp > 101.5F; Start 03/26/17 at 18:30 Docusate Sodium (Colace) 100 mg BID PO Last administered on 03/27/17 09:46; Start 03/26/17 at 21:00 Lactulose 20 gm PRN Q12HR PRN PO CONSTIPATION; Start 03/26/17 at 18:30 Bisacodyl (Dulcolax Supp) 10 mg PRN DAILY PRN OR CONSTIPATION; Start 03/26/17 at 18:30 Lactobacillus Rhamnosus (Culturelle) 1 cap BID PO Last administered on 09:47; Start 03/26/17 at 21:00 Albuterol/ Ipratropium (Duoneb) 3 ml RTQID NEB Last administered on 03/27/17 08:05; Start 03/26/17 at 20:00 Albuterol Sulfate (Ventolin Neb Soln) 2.5 mg PRN Q4HRS PRN NEB SHORTNESS OF BREATH; Start 03/26/17 at 19:00 Benzonatate (Tessalon Perle) 100 mg [id number] PO Last administered on 03/27/17 09:46; Start 03/26/17 at 21:00 Guaifenesin (Robitussin Dm) 10 ml QID PO Last administered on 03/27/17 09:45 ; Start 03/26/17 at 21:00 Cetirizine HCl (ZyrTEC) 10 mg DAILY PO Last administered on 03/27/17 09:47; Start 03/27/17 at 09:00 Ceftriaxone Sodium 1 gm/ Dextrose 50 ml @ 100 mls/hr Q24H IV ; Start 03/26/17 at 19:00; Status UNV Azithromycin 250 mg/Sodium Chloride 250 ml @ 250 mls/hr Q24H IV ; Start at 19:00 Amlodipine Besylate (Norvasc) 10 mg DAILY PO Last administered on 03/27/17 09 :46; Start 03/27/17 at 09:00 Aspirin (Hung Aspirin) 325 mg DAILY08 PO Last administered on 03/27/17 09:47 ; Start 03/27/17 at 08:00 Atorvastatin Calcium (Lipitor) 40 mg QHS PO ; Start 03/26/17 at 21:00; Stop at 21:00; Status DC Clopidogrel Bisulfate (Plavix) 75 mg DAILY07 PO Last administered on 09:47; Start 03/27/17 at 07:00 Furosemide (Lasix) 40 mg DAILY PO Last administered on 03/27/17 09:47; Start 03/27/17 at 09:00 Linagliptin (Tradjenta) 5 mg DAILY PO Last administered on 03/27/17 09:47; Start 03/27/17 at 09:00 Lisinopril (Prinivil) 40 mg DAILY PO Last administered on 03/27/17 09:45; Start 03/27/17 at 09:00 Metoprolol Succinate (Toprol Xl) 100 mg DAILY PO Last administered on 09:46; Start 03/27/17 at 09:00 Budesonide (Pulmicort) 0.5 mg RTBID NEB Last administered on 03/27/17 08:05; Start 03/27/17 at 08:00 Non-Formulary Medication 1 tab 1X PRN PRN PO ANXIETY / AGITATION; Start at 19:15; Status UNV Insulin Detemir (Levemir) 20 units QHS SQ ; Start 03/26/17 at 21:00 Non-Formulary Medication 2.5 mg PRN Q4HRS PRN NEB SHORTNESS OF BREATH; Start 03/26/17 at 19:15; Status UNV Ceftriaxone Sodium (Rocephin) 1 gm Q24H IVP ; Start 03/27/17 at 19:00 Insulin Aspart (NovoLOG) 0-9 UNITS TIDWMEALS SQ ; Start 12/18/17 at 08:00 Dextrose (Dextrose 50%-Water Syringe) 12.5 gm PRN Q15MIN PRN IV SEE COMMENTS; Start 03/26/17 at 19:15 Atorvastatin Calcium (Lipitor) 40 mg QHS PO Last administered on 03/26/17t 21: 15; Start 03/26/17 at 21:00 Active Scripts Active Keflex (Cephalexin) 500 Mg Capsule 1 Cap PO BID Lisinopril 20 Mg Tablet 20 Tab PO DAILY [Albuterol Sulfate] 2.5 MG/3 ML Nebu 2.5 Mg NEB PRN Q4HRS PRN Tradjenta (Linagliptin) 5 Mg Tablet 5 Mg PO DAILY Reported Breo Ellipta 100-25 Mcg Inh (Fluticasone/Vilanterol) 1 Each Aer.pow.ba 1 Puff IH DAILY Hydroxyzine Hcl 25 Mg Tablet 1 Tab PO 1X PRN PRN Furosemide 40 Mg Tablet 1 Tab PO DAILY Toprol Xl (Metoprolol Succinate) 100 Mg Tab.er.24h 100 Mg PO DAILY Amlodipine Besylate 5 Mg Tablet 10 Mg PO DAILY Proair Hfa Inhaler (Albuterol Sulfate) 8.5 Gm Hfa.aer.ad 2 Puff INH PRN Q6HRS PRN Lantus Solostar (Insulin Glargine,Hum.rec.anlog) 100 Unit/1 Ml Insuln.pen 20 Unit SQ QHS Atorvastatin Calcium 20 Mg Tablet 40 Mg PO DAILY Aspirin 325 Mg Tablet 1 Tab PO DAILY Plavix (Clopidogrel Bisulfate) 75 Mg Tablet 75 Mg PO DAILY Allergies Allergies: Coded Allergies: Iodinated Contrast- Oral and IV Dye (Verified Allergy, Intermediate, ) ROS Review of System GEN: + Fevers no Chills EYES: no new Visual Complaints ENT: no EN Drainage no Hearing deficiets CVS: min Orthopnea no CP RESP: + SOB + TAYLOR + Coughand thick phlegm GI: no Nausea no Vomiting : no Dysuria no Urgency HEME: no easy bruising no Palp Ly Nodes NEURO no Focal Weakness no Sz PSYCH: no Suicidal Ideation no Depression + Anxiety on HD SKIN: no Rashes ENDO: no Polyuria or Polydipsia no Hot/Cold Intolerance MU SK: Ch Arthraigia no Myalgia Physical Exam Physical Exam General Appearance: Awake Alert Oriented x 3 In no resp Distress currently, ursing NC O2 Eyes: VIsion Unchanged Conjunctiva Normal EN: No EN Drainage Mucous Memb. moist Neck: no JVD min JVP Supple no Thyromegaly CVS: S1 S2 + Murmur No Gallop No Rub tr Edema Resp: no Rales no Rhonchi no Acc. Muscle use - dec AE bradley GI: BS +ve NO Bruit Non Tender Non Distended - obese : no CVA tenderness; no Suprapubic Tenderness SKIN: no Rashes Breast Exam deferred Mu.Sk: Adequate ROM no Muscle Atrophy Heme: Unable to palpate Obvious LAD no palp Splenomegaly NEURO: Good Strength and Tone Cranial Nerves II - XII grossly intact Psych: not Depressed no Active hallucination Vital Signs Vital Signs Date Time Temp Pulse Resp B/P (MAP) Pulse Ox O2 Delivery O2 Flow Rate FiO2 03/27/17 09:46 91 134/67 03/27/17 08:06 100 Nasal Cannula 4.0 03/27/17 07:00 98.8 18 98.8 Assessment & Plan ESRD: Dialysis as below F 180 NR 3.5 Hrs 3 K 2.5 Ca 140 Na 40 HC03 Qb 350 + Qd 500+ Heparin 0 Units Uf 1-2 kg below dry weight as tolerated May give 25-50 gms of 25% Albumin if needed to maintain Hemodynamic stability Treatment plan reviewed and discussed with fiberline supervisor Hypervolemia - Uf on Hd and reassess for new EDW Subj SOB - ? due to Anemia; COPD exac, CAPn etc. reval after Uf on HD COPD - May benefit from running Bicarb in the 30s for compensation HypoAlbuminemia - check PreAlb - Pt claims she does not have much of an apetite since starting HD 3 yrs ago and has lost 45-50 lbs since. Anemia: Epogen as orderd. Transfuse with next HD as needed. HTN - was malignant range OA - now better controlled on Current BP meds as reviewed. Bone & Mineral: follow phos and alter binder regimen as needed based on PO iintake Discussed Plan of Care and prognosis etc. at length with family. Labs Labs Laboratory Tests Test 03/26/17 17:13 03/26/17 17:50 03/26/17 20:19 03/27/17 03:20 White Blood Count 12.4 x10^3/uL (4.0-11.0) 12.6 x10^3/uL (4.0-11.0) Red Blood Count 2.69 x10^6/uL (3.50-5.40) 2.52 x10^6/uL (3.50-5.40) Hemoglobin 8.6 g/dL (12.0-15.5) 7.9 g/dL (12.0-15.5) Hematocrit 27.6 % (36.0-47.0) 25.9 % (36.0-47.0) Mean Corpuscular Volume 103 fL (79-100) 103 fL (79-100) Mean Corpuscular Hemoglobin 32 pg (25-35) 31 pg (25-35) Mean Corpuscular Hemoglobin Concent 31 g/dL (31-37) 31 g/dL (31-37) Red Cell Distribution Width 16.0 % (11.5-14.5) 16.0 % (11.5-14.5) Platelet Count 310 x10^3/uL (140-400) 301 x10^3/uL (140-400) Neutrophils (%) (Auto) 85 % (31-73) 87 % (31-73) Lymphocytes (%) (Auto) 5 % (24-48) 4 % (24-48) Monocytes (%) (Auto) 10 % (0-9) 9 % (0-9) Eosinophils (%) (Auto) 0 % (0-3) 0 % (0-3) Basophils (%) (Auto) 0 % (0-3) 0 % (0-3) Neutrophils # (Auto) 10.5 x10^3uL (1.8-7.7) 10.9 x10^3uL (1.8-7.7) Lymphocytes # (Auto) 0.6 x10^3/uL (1.0-4.8) 0.5 x10^3/uL (1.0-4.8) Monocytes # (Auto) 1.2 x10^3/uL (0.0-1.1) 1.1 x10^3/uL (0.0-1.1) Eosinophils # (Auto) 0.0 x10^3/uL (0.0-0.7) 0.0 x10^3/uL (0.0-0.7) Basophils # (Auto) 0.0 x10^3/uL (0.0-0.2) 0.0 x10^3/uL (0.0-0.2) Sodium Level 145 mmol/L (136-145) Potassium Level 4.0 mmol/L (3.5-5.1) Chloride Level 108 mmol/L (98-107) Carbon Dioxide Level 27 mmol/L (21-32) Anion Gap 10 (6-14) Blood Urea Nitrogen 32 mg/dL (7-20) Creatinine 6.8 mg/dL (0.6-1.0) Estimated GFR (Cockcroft-Gault) 7.2 Glucose Level 125 mg/dL (70-99) Calcium Level 8.2 mg/dL (8.5-10.1) Total Bilirubin 0.5 mg/dL (0.2-1.0) Direct Bilirubin 0.1 mg/dL (0.0-0.2) Aspartate Amino Transf (AST/SGOT) 18 U/L (15-37) Alanine Aminotransferase (ALT/SGPT) 15 U/L (14-59) Alkaline Phosphatase 112 U/L (46-116) Troponin I Quantitative < 0.017 ng/mL (0.000-0.055) HL-Tjf-O-Type Natriuretic Peptide > 42673 pg/mL (0-124) Total Protein 6.2 g/dL (6.4-8.2) Albumin 2.8 g/dL (3.4-5.0) Lipase 176 U/L (73-393) Lactic Acid Level 1.3 mmol/L (0.4-2.0) Glucose (Fingerstick) 153 mg/dL (70-99) Segmented Neutrophils % 80 % (35-66) Band Neutrophils % 8 % (0-9) Lymphocytes % 3 % (24-48) Monocytes % 9 % (0-10) Platelet Estimate Adequate (ADEQUATE) Polychromasia Slight Hypochromasia Slight Anisocytosis Slight Test 03/27/17 03:25 03/27/17 03:40 03/27/17 07:00 Prothrombin Time 14.3 SEC (11.7-14.0) Prothromb Time International Ratio 1.2 (0.8-1.1) Influenza Type A Antigen Negative (NEGATIVE) Influenza Type B Antigen Negative (NEGATIVE) Glucose (Fingerstick) 140 mg/dL (70-99) Laboratory Tests Test 03/26/17 17:13 03/26/17 17:50 03/26/17 20:19 03/27/17 03:20 White Blood Count 12.4 x10^3/uL (4.0-11.0) 12.6 x10^3/uL (4.0-11.0) Red Blood Count 2.69 x10^6/uL (3.50-5.40) 2.52 x10^6/uL (3.50-5.40) Hemoglobin 8.6 g/dL (12.0-15.5) 7.9 g/dL (12.0-15.5) Hematocrit 27.6 % (36.0-47.0) 25.9 % (36.0-47.0) Mean Corpuscular Volume 103 fL (79-100) 103 fL (79-100) Mean Corpuscular Hemoglobin 32 pg (25-35) 31 pg (25-35) Mean Corpuscular Hemoglobin Concent 31 g/dL (31-37) 31 g/dL (31-37) Red Cell Distribution Width 16.0 % (11.5-14.5) 16.0 % (11.5-14.5) Platelet Count 310 x10^3/uL (140-400) 301 x10^3/uL (140-400) Neutrophils (%) (Auto) 85 % (31-73) 87 % (31-73) Lymphocytes (%) (Auto) 5 % (24-48) 4 % (24-48) Monocytes (%) (Auto) 10 % (0-9) 9 % (0-9) Eosinophils (%) (Auto) 0 % (0-3) 0 % (0-3) Basophils (%) (Auto) 0 % (0-3) 0 % (0-3) Neutrophils # (Auto) 10.5 x10^3uL (1.8-7.7) 10.9 x10^3uL (1.8-7.7) Lymphocytes # (Auto) 0.6 x10^3/uL (1.0-4.8) 0.5 x10^3/uL (1.0-4.8) Monocytes # (Auto) 1.2 x10^3/uL (0.0-1.1) 1.1 x10^3/uL (0.0-1.1) Eosinophils # (Auto) 0.0 x10^3/uL (0.0-0.7) 0.0 x10^3/uL (0.0-0.7) Basophils # (Auto) 0.0 x10^3/uL (0.0-0.2) 0.0 x10^3/uL (0.0-0.2) Sodium Level 145 mmol/L (136-145) Potassium Level 4.0 mmol/L (3.5-5.1) Chloride Level 108 mmol/L (98-107) Carbon Dioxide Level 27 mmol/L (21-32) Anion Gap 10 (6-14) Blood Urea Nitrogen 32 mg/dL (7-20) Creatinine 6.8 mg/dL (0.6-1.0) Estimated GFR (Cockcroft-Gault) 7.2 Glucose Level 125 mg/dL (70-99) Calcium Level 8.2 mg/dL (8.5-10.1) Total Bilirubin 0.5 mg/dL (0.2-1.0) Direct Bilirubin 0.1 mg/dL (0.0-0.2) Aspartate Amino Transf (AST/SGOT) 18 U/L (15-37) Alanine Aminotransferase (ALT/SGPT) 15 U/L (14-59) Alkaline Phosphatase 112 U/L (46-116) Troponin I Quantitative < 0.017 ng/mL (0.000-0.055) ZO-Zhk-J-Type Natriuretic Peptide > 95514 pg/mL (0-124) Total Protein 6.2 g/dL (6.4-8.2) Albumin 2.8 g/dL (3.4-5.0) Lipase 176 U/L (73-393) Lactic Acid Level 1.3 mmol/L (0.4-2.0) Glucose (Fingerstick) 153 mg/dL (70-99) Segmented Neutrophils % 80 % (35-66) Band Neutrophils % 8 % (0-9) Lymphocytes % 3 % (24-48) Monocytes % 9 % (0-10) Platelet Estimate Adequate (ADEQUATE) Polychromasia Slight Hypochromasia Slight Anisocytosis Slight Test 03/27/17 03:25 03/27/17 03:40 03/27/17 07:00 Prothrombin Time 14.3 SEC (11.7-14.0) Prothromb Time International Ratio 1.2 (0.8-1.1) Influenza Type A Antigen Negative (NEGATIVE) Influenza Type B Antigen Negative (NEGATIVE) Glucose (Fingerstick) 140 mg/dL (70-99) Images Images The left ventricular systolic function is normal. The Ejection Fraction is 55%. There is normal LV segmental wall motion. Transmitral Doppler flow pattern is Grade I-abnormal relaxation pattern. The left atrium is moderately dilated. Mild to moderate mitral regurgitation. Moderate tricuspid regurgitation. The pulmonary artery systolic pressure is estimated at 87 mmHg. There is severe pulmonary hypertension. There is no evidence of significant pericardial effusion. DICTATED and SIGNED BY: FRANK REED MD DATE: 05/17/16 1622 Findings: There is unchanged moderate enlargement of the cardiac silhouette with mild pulmonary venous congestion. No pleural effusion, pneumothorax or focal consolidation. There is bilateral glenohumeral arthrosis with superior migration of the humeral heads suggestive of rotator cuff tendinopathy. Impression: Moderate cardiomegaly and mild pulmonary venous congestion. DICTATED and SIGNED BY: DEANNA DURAN MD DATE: 03/26/17 1719 WENDI SUAREZ MD Mar 27, 2017 11:10
[2017-03-27] MEDS ORDERED: MAGNESIUM SULFATE 2GM 50 ML IV PRN (11:15)
--- NOTE | 2017-03-27 11:28 | PDOC ---
PROGRESS NOTES Chief Complaint Chief Complaint 1. acute Hypoxic respi failure, POA 2. pneumonia 3. 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 DIstant smoking hx, with 8 years ago 5. SIRS, with Sepsis, , POA 6. MIld to mod PCM 7,. mild Hypokalemia 8. ESRD on HD History of Present Illness History of Present Illness anxiety with HD today still weakness cough, dyspnea, but much improved from yesterday may be able to DC home tomorrow Vitals Vitals Vital Signs Date Time Temp Pulse Resp B/P (MAP) Pulse Ox O2 Delivery O2 Flow Rate FiO2 03/27/17 10:52 96.0 77 17 151/51 (84) 97 Nasal Cannula 3.0 96.0 Physical Exam General: Alert, Oriented X3, Cooperative, No acute distress, Other (coughs in between phrases/sentences during my interaction with her) Lungs: Other Abdomen: Normal bowel sounds, Soft, No tenderness, No hepatosplenomegaly, No masses Extremities: No clubbing, No cyanosis, No edema, Normal pulses, No tenderness/ swelling Skin: No rashes, No breakdown, No significant lesion Labs LABS Laboratory Tests Test 03/26/17 17:13 03/26/17 17:50 03/26/17 20:19 03/27/17 03:20 White Blood Count 12.4 x10^3/uL (4.0-11.0) 12.6 x10^3/uL (4.0-11.0) Red Blood Count 2.69 x10^6/uL (3.50-5.40) 2.52 x10^6/uL (3.50-5.40) Hemoglobin 8.6 g/dL (12.0-15.5) 7.9 g/dL (12.0-15.5) Hematocrit 27.6 % (36.0-47.0) 25.9 % (36.0-47.0) Mean Corpuscular Volume 103 fL (79-100) 103 fL (79-100) Mean Corpuscular Hemoglobin 32 pg (25-35) 31 pg (25-35) Mean Corpuscular Hemoglobin Concent 31 g/dL (31-37) 31 g/dL (31-37) Red Cell Distribution Width 16.0 % (11.5-14.5) 16.0 % (11.5-14.5) Platelet Count 310 x10^3/uL (140-400) 301 x10^3/uL (140-400) Neutrophils (%) (Auto) 85 % (31-73) 87 % (31-73) Lymphocytes (%) (Auto) 5 % (24-48) 4 % (24-48) Monocytes (%) (Auto) 10 % (0-9) 9 % (0-9) Eosinophils (%) (Auto) 0 % (0-3) 0 % (0-3) Basophils (%) (Auto) 0 % (0-3) 0 % (0-3) Neutrophils # (Auto) 10.5 x10^3uL (1.8-7.7) 10.9 x10^3uL (1.8-7.7) Lymphocytes # (Auto) 0.6 x10^3/uL (1.0-4.8) 0.5 x10^3/uL (1.0-4.8) Monocytes # (Auto) 1.2 x10^3/uL (0.0-1.1) 1.1 x10^3/uL (0.0-1.1) Eosinophils # (Auto) 0.0 x10^3/uL (0.0-0.7) 0.0 x10^3/uL (0.0-0.7) Basophils # (Auto) 0.0 x10^3/uL (0.0-0.2) 0.0 x10^3/uL (0.0-0.2) Sodium Level 145 mmol/L (136-145) Potassium Level 4.0 mmol/L (3.5-5.1) Chloride Level 108 mmol/L (98-107) Carbon Dioxide Level 27 mmol/L (21-32) Anion Gap 10 (6-14) Blood Urea Nitrogen 32 mg/dL (7-20) Creatinine 6.8 mg/dL (0.6-1.0) Estimated GFR (Cockcroft-Gault) 7.2 Glucose Level 125 mg/dL (70-99) Calcium Level 8.2 mg/dL (8.5-10.1) Total Bilirubin 0.5 mg/dL (0.2-1.0) Direct Bilirubin 0.1 mg/dL (0.0-0.2) Aspartate Amino Transf (AST/SGOT) 18 U/L (15-37) Alanine Aminotransferase (ALT/SGPT) 15 U/L (14-59) Alkaline Phosphatase 112 U/L (46-116) Troponin I Quantitative < 0.017 ng/mL (0.000-0.055) MR-Nqj-H-Type Natriuretic Peptide > 79691 pg/mL (0-124) Total Protein 6.2 g/dL (6.4-8.2) Albumin 2.8 g/dL (3.4-5.0) Lipase 176 U/L (73-393) Lactic Acid Level 1.3 mmol/L (0.4-2.0) Glucose (Fingerstick) 153 mg/dL (70-99) Segmented Neutrophils % 80 % (35-66) Band Neutrophils % 8 % (0-9) Lymphocytes % 3 % (24-48) Monocytes % 9 % (0-10) Platelet Estimate Adequate (ADEQUATE) Polychromasia Slight Hypochromasia Slight Anisocytosis Slight Test 03/27/17 03:25 03/27/17 03:40 03/27/17 07:00 03/27/17 11:17 Prothrombin Time 14.3 SEC (11.7-14.0) Prothromb Time International Ratio 1.2 (0.8-1.1) Influenza Type A Antigen Negative (NEGATIVE) Influenza Type B Antigen Negative (NEGATIVE) Glucose (Fingerstick) 140 mg/dL (70-99) 117 mg/dL (70-99) Review of Systems Review of Systems anxiety no n.v.d some cough and dyspnea Assessment and Plan Assessmemt and Plan Problems Medical Problems: (1) Cough Status: Acute (2) SOB (shortness of breath) Status: Acute Problems: Comment Review of Relevant I have reviewed the following items mykel (where applicable) has been applied. Labs Laboratory Tests Test 03/26/17 17:13 03/26/17 17:50 03/26/17 20:19 03/27/17 03:20 White Blood Count 12.4 x10^3/uL (4.0-11.0) 12.6 x10^3/uL (4.0-11.0) Red Blood Count 2.69 x10^6/uL (3.50-5.40) 2.52 x10^6/uL (3.50-5.40) Hemoglobin 8.6 g/dL (12.0-15.5) 7.9 g/dL (12.0-15.5) Hematocrit 27.6 % (36.0-47.0) 25.9 % (36.0-47.0) Mean Corpuscular Volume 103 fL (79-100) 103 fL (79-100) Mean Corpuscular Hemoglobin 32 pg (25-35) 31 pg (25-35) Mean Corpuscular Hemoglobin Concent 31 g/dL (31-37) 31 g/dL (31-37) Red Cell Distribution Width 16.0 % (11.5-14.5) 16.0 % (11.5-14.5) Platelet Count 310 x10^3/uL (140-400) 301 x10^3/uL (140-400) Neutrophils (%) (Auto) 85 % (31-73) 87 % (31-73) Lymphocytes (%) (Auto) 5 % (24-48) 4 % (24-48) Monocytes (%) (Auto) 10 % (0-9) 9 % (0-9) Eosinophils (%) (Auto) 0 % (0-3) 0 % (0-3) Basophils (%) (Auto) 0 % (0-3) 0 % (0-3) Neutrophils # (Auto) 10.5 x10^3uL (1.8-7.7) 10.9 x10^3uL (1.8-7.7) Lymphocytes # (Auto) 0.6 x10^3/uL (1.0-4.8) 0.5 x10^3/uL (1.0-4.8) Monocytes # (Auto) 1.2 x10^3/uL (0.0-1.1) 1.1 x10^3/uL (0.0-1.1) Eosinophils # (Auto) 0.0 x10^3/uL (0.0-0.7) 0.0 x10^3/uL (0.0-0.7) Basophils # (Auto) 0.0 x10^3/uL (0.0-0.2) 0.0 x10^3/uL (0.0-0.2) Sodium Level 145 mmol/L (136-145) Potassium Level 4.0 mmol/L (3.5-5.1) Chloride Level 108 mmol/L (98-107) Carbon Dioxide Level 27 mmol/L (21-32) Anion Gap 10 (6-14) Blood Urea Nitrogen 32 mg/dL (7-20) Creatinine 6.8 mg/dL (0.6-1.0) Estimated GFR (Cockcroft-Gault) 7.2 Glucose Level 125 mg/dL (70-99) Calcium Level 8.2 mg/dL (8.5-10.1) Total Bilirubin 0.5 mg/dL (0.2-1.0) Direct Bilirubin 0.1 mg/dL (0.0-0.2) Aspartate Amino Transf (AST/SGOT) 18 U/L (15-37) Alanine Aminotransferase (ALT/SGPT) 15 U/L (14-59) Alkaline Phosphatase 112 U/L (46-116) Troponin I Quantitative < 0.017 ng/mL (0.000-0.055) YF-Vhh-B-Type Natriuretic Peptide > 15611 pg/mL (0-124) Total Protein 6.2 g/dL (6.4-8.2) Albumin 2.8 g/dL (3.4-5.0) Lipase 176 U/L (73-393) Lactic Acid Level 1.3 mmol/L (0.4-2.0) Glucose (Fingerstick) 153 mg/dL (70-99) Segmented Neutrophils % 80 % (35-66) Band Neutrophils % 8 % (0-9) Lymphocytes % 3 % (24-48) Monocytes % 9 % (0-10) Platelet Estimate Adequate (ADEQUATE) Polychromasia Slight Hypochromasia Slight Anisocytosis Slight Test 03/27/17 03:25 03/27/17 03:40 03/27/17 07:00 03/27/17 11:17 Prothrombin Time 14.3 SEC (11.7-14.0) Prothromb Time International Ratio 1.2 (0.8-1.1) Influenza Type A Antigen Negative (NEGATIVE) Influenza Type B Antigen Negative (NEGATIVE) Glucose (Fingerstick) 140 mg/dL (70-99) 117 mg/dL (70-99) Laboratory Tests Test 03/26/17 17:13 03/26/17 17:50 03/26/17 20:19 03/27/17 03:20 White Blood Count 12.4 x10^3/uL (4.0-11.0) 12.6 x10^3/uL (4.0-11.0) Red Blood Count 2.69 x10^6/uL (3.50-5.40) 2.52 x10^6/uL (3.50-5.40) Hemoglobin 8.6 g/dL (12.0-15.5) 7.9 g/dL (12.0-15.5) Hematocrit 27.6 % (36.0-47.0) 25.9 % (36.0-47.0) Mean Corpuscular Volume 103 fL (79-100) 103 fL (79-100) Mean Corpuscular Hemoglobin 32 pg (25-35) 31 pg (25-35) Mean Corpuscular Hemoglobin Concent 31 g/dL (31-37) 31 g/dL (31-37) Red Cell Distribution Width 16.0 % (11.5-14.5) 16.0 % (11.5-14.5) Platelet Count 310 x10^3/uL (140-400) 301 x10^3/uL (140-400) Neutrophils (%) (Auto) 85 % (31-73) 87 % (31-73) Lymphocytes (%) (Auto) 5 % (24-48) 4 % (24-48) Monocytes (%) (Auto) 10 % (0-9) 9 % (0-9) Eosinophils (%) (Auto) 0 % (0-3) 0 % (0-3) Basophils (%) (Auto) 0 % (0-3) 0 % (0-3) Neutrophils # (Auto) 10.5 x10^3uL (1.8-7.7) 10.9 x10^3uL (1.8-7.7) Lymphocytes # (Auto) 0.6 x10^3/uL (1.0-4.8) 0.5 x10^3/uL (1.0-4.8) Monocytes # (Auto) 1.2 x10^3/uL (0.0-1.1) 1.1 x10^3/uL (0.0-1.1) Eosinophils # (Auto) 0.0 x10^3/uL (0.0-0.7) 0.0 x10^3/uL (0.0-0.7) Basophils # (Auto) 0.0 x10^3/uL (0.0-0.2) 0.0 x10^3/uL (0.0-0.2) Sodium Level 145 mmol/L (136-145) Potassium Level 4.0 mmol/L (3.5-5.1) Chloride Level 108 mmol/L (98-107) Carbon Dioxide Level 27 mmol/L (21-32) Anion Gap 10 (6-14) Blood Urea Nitrogen 32 mg/dL (7-20) Creatinine 6.8 mg/dL (0.6-1.0) Estimated GFR (Cockcroft-Gault) 7.2 Glucose Level 125 mg/dL (70-99) Calcium Level 8.2 mg/dL (8.5-10.1) Total Bilirubin 0.5 mg/dL (0.2-1.0) Direct Bilirubin 0.1 mg/dL (0.0-0.2) Aspartate Amino Transf (AST/SGOT) 18 U/L (15-37) Alanine Aminotransferase (ALT/SGPT) 15 U/L (14-59) Alkaline Phosphatase 112 U/L (46-116) Troponin I Quantitative < 0.017 ng/mL (0.000-0.055) PS-Cxh-C-Type Natriuretic Peptide > 48198 pg/mL (0-124) Total Protein 6.2 g/dL (6.4-8.2) Albumin 2.8 g/dL (3.4-5.0) Lipase 176 U/L (73-393) Lactic Acid Level 1.3 mmol/L (0.4-2.0) Glucose (Fingerstick) 153 mg/dL (70-99) Segmented Neutrophils % 80 % (35-66) Band Neutrophils % 8 % (0-9) Lymphocytes % 3 % (24-48) Monocytes % 9 % (0-10) Platelet Estimate Adequate (ADEQUATE) Polychromasia Slight Hypochromasia Slight Anisocytosis Slight Test 03/27/17 03:25 03/27/17 03:40 03/27/17 07:00 03/27/17 11:17 Prothrombin Time 14.3 SEC (11.7-14.0) Prothromb Time International Ratio 1.2 (0.8-1.1) Influenza Type A Antigen Negative (NEGATIVE) Influenza Type B Antigen Negative (NEGATIVE) Glucose (Fingerstick) 140 mg/dL (70-99) 117 mg/dL (70-99) Medications Current Medications Albuterol/ Ipratropium (Duoneb) 3 ml 1X ONCE NEB Last administered on 16:54; Start 03/26/17 at 16:30; Stop 03/26/17 at 16:31; Status DC Azithromycin 250 ml @ 250 mls/hr 1X ONCE IV Last administered on 03/26/17 18:03; Start 03/26/17 at 18:00; Stop 03/26/17 at 18:59; Status DC Ceftriaxone Sodium 50 ml @ 100 mls/hr 1X ONCE IV Last administered on 18:03; Start 03/26/17 at 18:00; Stop 03/26/17 at 18:29; Status DC Ondansetron HCl (Zofran) 4 mg PRN Q6HRS PRN IV NAUSEA/VOMITING; Start at 18:30 Prochlorperazine Edisylate (Compazine) 10 mg PRN Q6HRS PRN IV NAUSEA/VOMITING; Start 03/26/17 at 18:30 Prochlorperazine (Compazine) 25 mg PRN Q12HR PRN AK NAUSEA/VOMITING; Start at 18:30 Al Hydroxide/Mg Hydroxide (Mylanta Plus Xs) 30 ml PRN Q3HRS PRN PO HEARTBURN / GAS; Start 03/26/17 at 18:30 Calcium Carbonate/ Glycine (Tums) 500 mg PRN Q3HRS PRN PO UPSET STOMACH; Start 03/26/17 at 18:30 Zolpidem Tartrate (Ambien) 5 mg PRN QHS PRN PO INSOMNIA, MAY REPEAT IN 1HR; Start 03/26/17 at 18:30 Oxycodone HCl (Roxicodone) 5 mg PRN Q3HRS PRN PO BREAKTHROUGH PAIN; Start at 18:30 Morphine Sulfate 1 mg PRN Q1HR PRN IV PAIN; Start 03/26/17 at 18:30 Acetaminophen (Tylenol) 650 mg PRN Q6HRS PRN PO Headaches, Temp > 101.5F; Start 03/26/17 at 18:30 Docusate Sodium (Colace) 100 mg BID PO Last administered on 03/27/17 09:46; Start 03/26/17 at 21:00 Lactulose 20 gm PRN Q12HR PRN PO CONSTIPATION; Start 03/26/17 at 18:30 Bisacodyl (Dulcolax Supp) 10 mg PRN DAILY PRN [place] CONSTIPATION; Start 03/26/17 at 18:30 Lactobacillus Rhamnosus (Culturelle) 1 cap BID PO Last administered on 09:47; Start 03/26/17 at 21:00 Albuterol/ Ipratropium (Duoneb) 3 ml RTQID NEB Last administered on 03/27/17 08:05; Start 03/26/17 at 20:00 Albuterol Sulfate (Ventolin Neb Soln) 2.5 mg PRN Q4HRS PRN NEB SHORTNESS OF BREATH; Start 03/26/17 at 19:00 Benzonatate (Tessalon Perle) 100 mg [id number] PO Last administered on 03/27/17 09:46; Start 03/26/17 at 21:00 Guaifenesin (Robitussin Dm) 10 ml QID PO Last administered on 03/27/17 09:45 ; Start 03/26/17 at 21:00 Cetirizine HCl (ZyrTEC) 10 mg DAILY PO Last administered on 03/27/17 09:47; Start 03/27/17 at 09:00 Ceftriaxone Sodium 1 gm/ Dextrose 50 ml @ 100 mls/hr Q24H IV ; Start 03/26/17 at 19:00; Status UNV Azithromycin 250 mg/Sodium Chloride 250 ml @ 250 mls/hr Q24H IV ; Start at 19:00 Amlodipine Besylate (Norvasc) 10 mg DAILY PO Last administered on 03/27/17 09 :46; Start 03/27/17 at 09:00 Aspirin (Hung Aspirin) 325 mg DAILY08 PO Last administered on 03/27/17 09:47 ; Start 03/27/17 at 08:00 Atorvastatin Calcium (Lipitor) 40 mg QHS PO ; Start 03/26/17 at 21:00; Stop at 21:00; Status DC Clopidogrel Bisulfate (Plavix) 75 mg DAILY07 PO Last administered on 09:47; Start 03/27/17 at 07:00 Furosemide (Lasix) 40 mg DAILY PO Last administered on 03/27/17 09:47; Start 03/27/17 at 09:00 Linagliptin (Tradjenta) 5 mg DAILY PO Last administered on 03/27/17 09:47; Start 03/27/17 at 09:00 Lisinopril (Prinivil) 40 mg DAILY PO Last administered on 03/27/17 09:45; Start 03/27/17 at 09:00 Metoprolol Succinate (Toprol Xl) 100 mg DAILY PO Last administered on 09:46; Start 03/27/17 at 09:00 Budesonide (Pulmicort) 0.5 mg RTBID NEB Last administered on 03/27/17 08:05; Start 03/27/17 at 08:00 Non-Formulary Medication 1 tab 1X PRN PRN PO ANXIETY / AGITATION; Start at 19:15; Status UNV Insulin Detemir (Levemir) 20 units QHS SQ ; Start 03/26/17 at 21:00 Non-Formulary Medication 2.5 mg PRN Q4HRS PRN NEB SHORTNESS OF BREATH; Start 03/26/17 at 19:15; Status UNV Ceftriaxone Sodium (Rocephin) 1 gm Q24H IVP ; Start 03/27/17 at 19:00 Insulin Aspart (NovoLOG) 0-9 UNITS TIDWMEALS SQ ; Start 03/27/17 at 08:00 Dextrose (Dextrose 50%-Water Syringe) 12.5 gm PRN Q15MIN PRN IV SEE COMMENTS; Start 03/26/17 at 19:15 Atorvastatin Calcium (Lipitor) 40 mg QHS PO Last administered on 03/26/17 21: 15; Start 03/26/17 at 21:00 Magnesium Sulfate/ Dextrose 50 ml @ 25 mls/hr PRN DAILY PRN IV for Mag < 1.7 on am labs; Start 03/27/17 at 11:15 Darbepoetin Canelo (Aranesp) 100 mcg WEEKLYHS SQ ; Start 03/27/17 at 21:00 Active Scripts Active Keflex (Cephalexin) 500 Mg Capsule 1 Cap PO BID Lisinopril 20 Mg Tablet 20 Tab PO DAILY [Albuterol Sulfate] 2.5 MG/3 ML Nebu 2.5 Mg NEB PRN Q4HRS PRN Tradjenta (Linagliptin) 5 Mg Tablet 5 Mg PO DAILY Reported Breo Ellipta 100-25 Mcg Inh (Fluticasone/Vilanterol) 1 Each Aer.pow.ba 1 Puff IH DAILY Hydroxyzine Hcl 25 Mg Tablet 1 Tab PO 1X PRN PRN Furosemide 40 Mg Tablet 1 Tab PO DAILY Toprol Xl (Metoprolol Succinate) 100 Mg Tab.er.24h 100 Mg PO DAILY Amlodipine Besylate 5 Mg Tablet 10 Mg PO DAILY Proair Hfa Inhaler (Albuterol Sulfate) 8.5 Gm Hfa.aer.ad 2 Puff INH PRN Q6HRS PRN Lantus Solostar (Insulin Glargine,Hum.rec.anlog) 100 Unit/1 Ml Insuln.pen 20 Unit SQ QHS Atorvastatin Calcium 20 Mg Tablet 40 Mg PO DAILY Aspirin 325 Mg Tablet 1 Tab PO DAILY Plavix (Clopidogrel Bisulfate) 75 Mg Tablet 75 Mg PO DAILY Vitals/I & O Vital Sign - Last 24 Hours 03/26/17 03/26/17 03/26/17 03/26/17 16:17 16:55 17:59 22:30 Temp 99.6 99.6 Pulse 82 94 Resp 24 B/P (MAP) 192/85 (120) 172/70 (104) Pulse Ox 94 93 99 96 O2 Delivery Room Air Nasal Cannula Nasal Cannula Nasal Cannula O2 Flow Rate 5.0 4.0 4.0 03/26/17 03/27/17 03/27/17 03/27/17 23:00 03:00 04:17 07:00 Temp 97.9 97.6 98.8 97.9 97.6 98.8 Pulse 100 88 91 Resp 19 19 18 B/P (MAP) 152/59 (90) 148/56 (86) 134/67 (89) Pulse Ox 98 97 97 O2 Delivery Nasal Cannula Nasal Cannula Nasal Cannula Room Air O2 Flow Rate 4.0 4.0 4.0 03/27/17 03/27/17 03/27/1703/27/17 08:00 08:06 09:45 09:46 Pulse 91 91 B/P (MAP) 134/67 134/67 Pulse Ox 100 O2 Delivery Nasal Cannula Nasal Cannula O2 Flow Rate 4.0 4.0 03/27/17 03/27/17 09:46 10:52 Temp 96.0 96.0 Pulse 91 77 Resp 17 B/P (MAP) 134/67 151/51 (84) Pulse Ox 97 O2 Delivery Nasal Cannula O2 Flow Rate 3.0 Intake and Output 03/26/17 03/26/17 03/27/17 14:59 22:59 06:59 Intake Total 120 ml 640 ml Balance 120 ml 640 ml JOSE ONEIL MD Mar 27, 2017 11:28
[2017-03-27] MEDS ORDERED: IV NORMAL SALINE 1000ML BAG 1,000 ML IV PRN ×2 (14:44)
[2017-03-27] MEDS ORDERED: diphenhydrAMINE 50 MG/ML VIAL IV PRN ×2 (14:45)
[2017-03-27] MEDS ORDERED: DIALYSIS PATIENT. MC PRN (14:45)
[2017-03-27] MEDS ORDERED: cloNIDine HCL 0.1 MG TABLET PO PRN (14:45)
[2017-03-27] MEDS ORDERED: ALBUMIN HUMAN 25% 200 ML IV PRN (14:45)
[2017-03-27] MEDS ORDERED: LABETALOL 20 MG/4 ML DISP.SYRIN. IVP PRN (14:45)
[2017-03-27] MEDS ORDERED: ACETAMINOPHEN 500 MG TABLET PO PRN (14:45)
[2017-03-27 14:48] VITALS: BP 141/54
[2017-03-27] MEDS ORDERED: LIDOCAINE 1% PF 2 ML VIAL. ONE ×2 (15:42→16:00)
--- NOTE | 2017-03-27 15:57 | CONS ---
DATE OF CONSULTATION: PRIMARY PHYSICIAN: Dr. Hill. REASON FOR CONSULTATION: End-stage renal disease, hemodialysis. HISTORY OF PRESENT ILLNESS: The patient is a pleasant 71-year-old female who is under the care of Dr. Santamaria, dialyzes Monday, Monday and Monday on a regular basis. She has not missed any dialysis. She does have underlying chronic obstructive pulmonary disease and uses 3-4 liters nasal cannula oxygen at home. The patient presented to the Emergency Room with productive cough for the past 2 weeks with increasing shortness of breath with yellow-green/thick greyish phlegm. She denies any fevers at home, but she has had low-grade fevers in the Emergency Room. Chest x-ray did show congestive heart failure. She is up for dialysis today. We were asked to see her for the same. ProBNP is elevated also. She is being treated for her pneumonia. She has lost some weight. Her estimated dry weight is about 75 kg. She comes only at 100 kg or above. She does have occasional cramping. She claims she has not had much of an appetite since she started dialysis. She has also had issues with anxiety being on dialysis. She denies coming off early. She thinks she has lost about 45-50 pounds since being on dialysis. She is not sure if it is all fluid weight. Her albumin is also noted to be low. In this setting, we were asked to see her for further evaluation. For rest of the details, please see electronic records. WENDI SUAREZ MD DR: MARNI/courtney JOB#: [id number] / [id number]
[2017-03-27 19:00] VITALS: BP 131/61
[2017-03-27] MEDS ORDERED: AZITHROMYCIN 250 MG in IV NORMAL SALINE 250ML 250 ML IV SCH (19:00)
[2017-03-27] MEDS ORDERED: cefTRIAXone IV Push 1 GM VIAL. IVP SCH (19:00)
[2017-03-27] MEDS ORDERED: DARBEPOETIN ALFA 100 MCG/0.5 ML DISP.SYRIN. SQ SCH (21:00)
[2017-03-27] MEDS: ATORVASTATIN CALCIUM 40 MG TABLET. PO SCH (21:57)
[2017-03-27] MEDS: INSULIN DETEMIR 300 UNITS/3 ML INSULN.PEN. SQ SCH (22:08)
[2017-03-27 23:00] VITALS: BP 122/57
[2017-03-28 03:00] VITALS: BP 129/87
[2017-03-28 06:30] LABS: ALBUMIN 2.2 g/dL (3.4-5.0); CALCIUM 7.2 mg/dL (8.5-10.1); CREATININE 4.4 mg/dL (0.6-1.0); GFR 11.9; MAGNESIUM 1.8 mg/dL (1.8-2.4); PHOSPHORUS 3.7 mg/dL (2.6-4.7); POTASSIUM 4.2 mmol/L (3.5-5.1)
[2017-03-28 07:00] VITALS: BP 122/95
[2017-03-28] MEDS: INSULIN ASPART 300 UNITS/3 ML INSULN.PEN SQ SCH ×2 (08:00→12:00)
[2017-03-28] MEDS ORDERED: CLOPIDOGREL BISULFATE 75 MG TABLET PO SCH (08:00)
[2017-03-28] MEDS: BUDESONIDE 0.5 MG/2 ML NEBU. NEB SCH (08:38)
[2017-03-28] MEDS: IPRATRPIUM/ALBUTEROL 0.5/2.5MG 3 ML NEBU. NEB SCH ×2 (08:38→11:34)
[2017-03-28] MEDS: DOCUSATE SODIUM 100 MG CAPSULE. PO SCH (09:15)
[2017-03-28] MEDS: METOPROLOL SUCC 24HR ER 100 MG TAB.ER.24H. PO SCH (09:15)
[2017-03-28] MEDS: LINAGLIPTIN 5 MG TABLET PO SCH (09:16)
[2017-03-28] MEDS: LISINOPRIL 40 MG TABLET. PO SCH (09:16)
[2017-03-28] MEDS: LACTOBACILLUS RHAMNOSUS GG 1 CAPSULE. PO SCH (09:16)
[2017-03-28] MEDS: CETIRIZINE HCL 10 MG TABLET. PO SCH (09:16)
[2017-03-28] MEDS: ASPIRIN 325 MG TABLET PO SCH (09:16)
[2017-03-28] MEDS: FUROSEMIDE 40 MG TABLET. PO SCH (09:17)
[2017-03-28] MEDS: amLODIPine BESYLATE 10 MG TABLET PO SCH (09:17)
[2017-03-28] MEDS: guaiFENesin DM 200MG/20MG 10 ML SYRUP PO SCH (09:19)
[2017-03-28 11:00] VITALS: BP 124/89
--- NOTE | 2017-03-28 11:22 | PDOC ---
SUBJECTIVE ROS SOB in the setting of ESRD Feels much better today from breating standpoint CVS: no Orthopnea, no CP RESP: min SOB, min TAYLOR GI: no Nausea, no Vomiting : no Dysuria, no Urgency OBJECTIVE Vital Signs Vital Signs Date Time Temp Pulse Resp B/P (MAP) Pulse Ox O2 Delivery O2 Flow Rate FiO2 03/28/17 09:17 74 122/95 03/28/17 08:39 96 Nasal Cannula 3.0 03/28/17 07:00 97.7 18 97.7 I & 0 Intake and Output 03/28/17 07:00 Intake Total 600 ml Balance 600 ml Intake Oral 600 ml # Voids 2 PHYSICAL EXAM Physical Exam General Appearance: Awake Alert Oriented x 3 In no resp Distress currently, ursing NC O2 Eyes: VIsion Unchanged Conjunctiva Normal EN: No EN Drainage Mucous Memb. moist Neck: no JVD min JVP Supple no Thyromegaly CVS: S1 S2 + Murmur No Gallop No Rub tr Edema Resp: no Rales no Rhonchi no Acc. Muscle use - dec AE bradley GI: BS +ve NO Bruit Non Tender Non Distended - obese : no CVA tenderness; no Suprapubic Tenderness DIAGNOSIS/ASSESSMENT Assessment & Plan ESRD: Current fluid and E-lyte status does not necessitate emergent need for dialysis. Will re-evaluate for dialysis in the am and continue on MWF schedule. Hypervolemia - Uf on Hd and reassess for new EDW as cary. informed OP HD to challenge EDW as cary Subj SOB - ? due to Anemia; COPD exac, CAPn etc. min better after Uf on HD yest ; ct to challenge EDW COPD - May benefit from running [employer] in the 30s for compensation HypoAlbuminemia - PreAlb is OK - Pt claims she does not have much of an apetite since starting HD 3 yrs ago and has lost 45-50 lbs since. Liver Looks OK on most recent CT 06/2016 Anemia: Epogen as orderd. Transfuse with next HD as needed if she drops < 7.0 - would probably benefit from hgb > 10.5-11 range given underlyihng COPD HTN - was malignant range OA - now better controlled on Current BP meds as reviewed. Bone & Mineral: follow phos and alter binder regimen as needed based on PO iintake Discussed Plan of Care and prognosis etc. at length with pt Problems: COMMENT/RELEVANT DATA Meds Current Medications Medications (Trade) Dose Ordered Sig/Eric Start Time Stop Time Status Last Admin Dose Admin Acetaminophen (Tylenol) 500 mg 1X PRN PRN 03/27/17 14:45 03/28/17 14:44 Al Hydroxide/Mg Hydroxide (Mylanta Plus Xs) 30 ml PRN Q3HRS PRN 03/26/17 18:30 Albumin Human 200 ml @ 200 mls/hr 1X PRN PRN 03/27/17 14:45 03/27/17 20:44 DC Albuterol Sulfate (Ventolin Neb Soln) 2.5 mg PRN Q4HRS PRN 03/26/17 19:00 Albuterol/ Ipratropium (Duoneb) 3 ml RTQID 03/26/17 20:00 03/28/17 08:38 3 ML Amlodipine Besylate (Norvasc) 10 mg DAILY 03/27/17 09:00 03/28/17 09:17 10 MG Aspirin (Hung Aspirin) 325 mg DAILY08 03/27/17 08:00 03/28/17 09:16 325 MG Atorvastatin Calcium (Lipitor) 40 mg QHS 03/26/17 21:00 03/27/17 21:57 40 MG Azithromycin 250 ml @ 250 mls/hr 1X ONCE 03/26/17 18:00 03/26/17 18:59 DC 03/26/17 18:03 250 MLS/HR Azithromycin 250 mg/Sodium Chloride 250 ml @ 250 mls/hr Q24H 03/27/17 19:00 03/27/17 21:58 250 MLS/HR Benzonatate (Tessalon Perle) 100 mg [id number] 03/26/17 21:00 03/27/17 21:57 100 MG Bisacodyl (Dulcolax Supp) 10 mg PRN DAILY PRN 03/26/17 18:30 Budesonide (Pulmicort) 0.5 mg RTBID 03/27/17 08:00 03/28/17 08:38 0.5 MG Calcium Carbonate/ Glycine (Tums) 500 mg PRN Q3HRS PRN 03/26/17 18:30 Ceftriaxone Sodium 1 gm/ Dextrose 50 ml @ 100 mls/hr Q24H 03/26/17 19:00 UNV Ceftriaxone Sodium (Rocephin) 1 gm Q24H 03/27/17 19:00 03/27/17 21:56 1 GM Cetirizine HCl (ZyrTEC) 10 mg DAILY 03/27/17 09:00 03/28/17 09:16 10 MG Clonidine HCl (Catapres) 0.1 mg 1X PRN PRN 03/27/17 14:45 03/28/17 14:44 Clopidogrel Bisulfate (Plavix) 75 mg DAILY08 03/28/17 08:00 03/28/17 09:16 75 MG Darbepoetin Canelo (Aranesp) 100 mcg WEEKLYHS 03/27/17 21:00 03/27/17 21:56 100 MCG Dextrose (Dextrose 50%-Water Syringe) 12.5 gm PRN Q15MIN PRN 03/26/17 19:15 Diphenhydramine HCl (Benadryl) 25 mg 1X PRN PRN 03/27/17 14:45 03/28/17 14:44 Docusate Sodium (Colace) 100 mg BID 03/26/17 21:00 03/28/17 09:15 100 MG Furosemide (Lasix) 40 mg DAILY 03/27/17 09:00 03/28/17 09:17 40 MG Guaifenesin (Robitussin Dm) 10 ml QID 03/26/17 21:00 03/28/17 09:19 10 ML Info (PHARMACY MONITORING -- do not chart) 1 each PRN DAILY PRN 03/27/17 14:45 Insulin Aspart (NovoLOG) 0-9 UNITS TIDWMEALS 03/27/17 08:00 Insulin Detemir (Levemir) 20 units QHS 03/26/17 21:00 03/27/17 22:08 20 UNITS Labetalol HCl (Normodyne) 10 mg PRN Q1HR PRN 03/27/17 14:45 03/28/17 14:44 Lactobacillus Rhamnosus (Culturelle) 1 cap BID 03/26/17 21:00 03/28/17 09:16 1 CAP Lactulose 20 gm PRN Q12HR PRN 03/26/17 18:30 Lidocaine HCl (Xylocaine-Mpf 1% Vial) 2 ml STK-MED ONCE 03/27/17 15:42 03/27/17 15:43 DC Linagliptin (Tradjenta) 5 mg DAILY 03/27/17 09:00 03/28/17 09:16 5 MG Lisinopril (Prinivil) 40 mg DAILY 03/27/17 09:00 03/28/17 09:16 40 MG Lorazepam (Ativan) 0.5 mg PRN Q8HRS PRN 03/27/17 11:30 03/27/17 15:47 0.5 MG Magnesium Sulfate/ Dextrose 50 ml @ 25 mls/hr PRN DAILY PRN 03/27/17 11:15 Metoprolol Succinate (Toprol Xl) 100 mg DAILY 03/27/17 09:00 03/28/17 09:15 100 MG Morphine Sulfate 1 mg PRN Q1HR PRN 03/26/17 18:30 Non-Formulary Medication 2.5 mg PRN Q4HRS PRN 03/26/17 19:15 UNV Ondansetron HCl (Zofran) 4 mg PRN Q6HRS PRN 03/26/17 18:30 Oxycodone HCl (Roxicodone) 5 mg PRN Q3HRS PRN 03/26/17 18:30 Prochlorperazine (Compazine) 25 mg PRN Q12HR PRN 03/26/17 18:30 Prochlorperazine Edisylate (Compazine) 10 mg PRN Q6HRS PRN 03/26/17 18:30 Sodium Chloride 1,000 ml @ 400 mls/hr Q2H30M PRN 03/27/17 14:44 03/28/17 02:43 DC Zolpidem Tartrate (Ambien) 5 mg PRN QHS PRN 03/26/17 18:30 Lab Laboratory Tests Test 03/27/17 11:17 03/27/17 22:01 03/28/17 05:50 03/28/17 07:55 Glucose (Fingerstick) 117 mg/dL (70-99) 152 mg/dL (70-99) 43 mg/dL (70-99) Hemoglobin 7.8 g/dL (12.0-15.5) Sodium Level 143 mmol/L (136-145) Potassium Level 4.2 mmol/L (3.5-5.1) Chloride Level 106 mmol/L (98-107) Carbon Dioxide Level 31 mmol/L (21-32) Anion Gap 6 (6-14) Blood Urea Nitrogen 23 mg/dL (7-20) Creatinine 4.4 mg/dL (0.6-1.0) Estimated GFR (Cockcroft-Gault) 11.9 Glucose Level 68 mg/dL (70-99) Calcium Level 7.2 mg/dL (8.5-10.1) Phosphorus Level 3.7 mg/dL (2.6-4.7) Magnesium Level 1.8 mg/dL (1.8-2.4) Albumin 2.2 g/dL (3.4-5.0) Test 03/28/17 08:26 Glucose (Fingerstick) 108 mg/dL (70-99) WENDI SUAREZ MD Mar 28, 2017 11:21
--- NOTE | 2017-03-28 11:26 | PDOC ---
PROGRESS NOTES Chief Complaint Chief Complaint Acute hypoxic respiratory failure Pneumonia Hypokalemia ESRD on HD CHF DM HTN HLD Abdominal Aortic Aneurysm History of Present Illness History of Present Illness Patient reports feeling better and that her SOB has significantly improved. She feels like she would be able to be discharged home. Vitals Vitals Vital Signs Date Time Temp Pulse Resp B/P (MAP) Pulse Ox O2 Delivery O2 Flow Rate FiO2 03/28/17 09:17 74 122/95 03/28/17 08:39 96 Nasal Cannula 3.0 03/28/17 07:00 97.7 18 97.7 Physical Exam General: Alert, Oriented X3, Cooperative, No acute distress, Other (coughs in between phrases/sentences during my interaction with her) Heart: Regular rate Lungs: Clear Abdomen: Normal bowel sounds, Soft, No tenderness, No hepatosplenomegaly, No masses Extremities: No clubbing, No cyanosis, No edema, Normal pulses, No tenderness/ swelling Skin: No rashes, No breakdown, No significant lesion Labs LABS Laboratory Tests Test 03/27/17 22:01 03/28/17 05:50 03/28/17 07:55 03/28/17 08:26 Glucose (Fingerstick) 152 mg/dL (70-99) 43 mg/dL (70-99) 108 mg/dL (70-99) Hemoglobin 7.8 g/dL (12.0-15.5) Sodium Level 143 mmol/L (136-145) Potassium Level 4.2 mmol/L (3.5-5.1) Chloride Level 106 mmol/L (98-107) Carbon Dioxide Level 31 mmol/L (21-32) Anion Gap 6 (6-14) Blood Urea Nitrogen 23 mg/dL (7-20) Creatinine 4.4 mg/dL (0.6-1.0) Estimated GFR (Cockcroft-Gault) 11.9 Glucose Level 68 mg/dL (70-99) Calcium Level 7.2 mg/dL (8.5-10.1) Phosphorus Level 3.7 mg/dL (2.6-4.7) Magnesium Level 1.8 mg/dL (1.8-2.4) Albumin 2.2 g/dL (3.4-5.0) Review of Systems Review of Systems Patient reports feeling better Patient reports some mild fatigue Assessment and Plan Assessmemt and Plan Problems Medical Problems: (1) Cough Status: Acute (2) SOB (shortness of breath) Status: Acute Assessment: Acute hypoxic respiratory failure Pneumonia Hypokalemia ESRD on HD CHF DM HTN HLD Abdominal Aortic Aneurysm Plan: Home meds Breathing treatments PRN O2 PT/OT Sliding scale insulin Continue abx Discharge home Problems: Comment Review of Relevant I have reviewed the following items mykel (where applicable) has been applied. Labs Laboratory Tests Test 03/26/17 17:13 03/26/17 17:50 03/26/17 20:19 03/27/17 03:20 White Blood Count 12.4 x10^3/uL (4.0-11.0) 12.6 x10^3/uL (4.0-11.0) Red Blood Count 2.69 x10^6/uL (3.50-5.40) 2.52 x10^6/uL (3.50-5.40) Hemoglobin 8.6 g/dL (12.0-15.5) 7.9 g/dL (12.0-15.5) Hematocrit 27.6 % (36.0-47.0) 25.9 % (36.0-47.0) Mean Corpuscular Volume 103 fL (79-100) 103 fL (79-100) Mean Corpuscular Hemoglobin 32 pg (25-35) 31 pg (25-35) Mean Corpuscular Hemoglobin Concent 31 g/dL (31-37) 31 g/dL (31-37) Red Cell Distribution Width 16.0 % (11.5-14.5) 16.0 % (11.5-14.5) Platelet Count 310 x10^3/uL (140-400) 301 x10^3/uL (140-400) Neutrophils (%) (Auto) 85 % (31-73) 87 % (31-73) Lymphocytes (%) (Auto) 5 % (24-48) 4 % (24-48) Monocytes (%) (Auto) 10 % (0-9) 9 % (0-9) Eosinophils (%) (Auto) 0 % (0-3) 0 % (0-3) Basophils (%) (Auto) 0 % (0-3) 0 % (0-3) Neutrophils # (Auto) 10.5 x10^3uL (1.8-7.7) 10.9 x10^3uL (1.8-7.7) Lymphocytes # (Auto) 0.6 x10^3/uL (1.0-4.8) 0.5 x10^3/uL (1.0-4.8) Monocytes # (Auto) 1.2 x10^3/uL (0.0-1.1) 1.1 x10^3/uL (0.0-1.1) Eosinophils # (Auto) 0.0 x10^3/uL (0.0-0.7) 0.0 x10^3/uL (0.0-0.7) Basophils # (Auto) 0.0 x10^3/uL (0.0-0.2) 0.0 x10^3/uL (0.0-0.2) Sodium Level 145 mmol/L (136-145) Potassium Level 4.0 mmol/L (3.5-5.1) Chloride Level 108 mmol/L (98-107) Carbon Dioxide Level 27 mmol/L (21-32) Anion Gap 10 (6-14) Blood Urea Nitrogen 32 mg/dL (7-20) Creatinine 6.8 mg/dL (0.6-1.0) Estimated GFR (Cockcroft-Gault) 7.2 Glucose Level 125 mg/dL (70-99) Calcium Level 8.2 mg/dL (8.5-10.1) Total Bilirubin 0.5 mg/dL (0.2-1.0) Direct Bilirubin 0.1 mg/dL (0.0-0.2) Aspartate Amino Transf (AST/SGOT) 18 U/L (15-37) Alanine Aminotransferase (ALT/SGPT) 15 U/L (14-59) Alkaline Phosphatase 112 U/L (46-116) Troponin I Quantitative < 0.017 ng/mL (0.000-0.055) RW-[id number]-W-Type Natriuretic Peptide > 28314 pg/mL (0-124) Total Protein 6.2 g/dL (6.4-8.2) Albumin 2.8 g/dL (3.4-5.0) Lipase 176 U/L (73-393) Lactic Acid Level 1.3 mmol/L (0.4-2.0) Glucose (Fingerstick) 153 mg/dL (70-99) Segmented Neutrophils % 80 % (35-66) Band Neutrophils % 8 % (0-9) Lymphocytes % 3 % (24-48) Monocytes % 9 % (0-10) Platelet Estimate Adequate (ADEQUATE) Polychromasia Slight Hypochromasia Slight Anisocytosis Slight Prealbumin 16.3 mg/dL (16.0-42.0) Test 03/27/17 03:25 03/27/17 03:40 03/27/17 07:00 03/27/17 11:17 Prothrombin Time 14.3 SEC (11.7-14.0) Prothromb Time International Ratio 1.2 (0.8-1.1) Influenza Type A Antigen Negative (NEGATIVE) Influenza Type B Antigen Negative (NEGATIVE) Glucose (Fingerstick) 140 mg/dL (70-99) 117 mg/dL (70-99) Test 03/27/17 22:01 03/28/17 05:50 03/28/17 07:55 03/28/17 08:26 Glucose (Fingerstick) 152 mg/dL (70-99) 43 mg/dL (70-99) 108 mg/dL (70-99) Hemoglobin 7.8 g/dL (12.0-15.5) Sodium Level 143 mmol/L (136-145) Potassium Level 4.2 mmol/L (3.5-5.1) Chloride Level 106 mmol/L (98-107) Carbon Dioxide Level 31 mmol/L (21-32) Anion Gap 6 (6-14) Blood Urea Nitrogen 23 mg/dL (7-20) Creatinine 4.4 mg/dL (0.6-1.0) Estimated GFR (Cockcroft-Gault) 11.9 Glucose Level 68 mg/dL (70-99) Calcium Level 7.2 mg/dL (8.5-10.1) Phosphorus Level 3.7 mg/dL (2.6-4.7) Magnesium Level 1.8 mg/dL (1.8-2.4) Albumin 2.2 g/dL (3.4-5.0) Laboratory Tests Test 03/27/17 22:01 03/28/17 05:50 03/28/17 07:55 03/28/17 08:26 Glucose (Fingerstick) 152 mg/dL (70-99) 43 mg/dL (70-99) 108 mg/dL (70-99) Hemoglobin 7.8 g/dL (12.0-15.5) Sodium Level 143 mmol/L (136-145) Potassium Level 4.2 mmol/L (3.5-5.1) Chloride Level 106 mmol/L (98-107) Carbon Dioxide Level 31 mmol/L (21-32) Anion Gap 6 (6-14) Blood Urea Nitrogen 23 mg/dL (7-20) Creatinine 4.4 mg/dL (0.6-1.0) Estimated GFR (Cockcroft-Gault) 11.9 Glucose Level 68 mg/dL (70-99) Calcium Level 7.2 mg/dL (8.5-10.1) Phosphorus Level 3.7 mg/dL (2.6-4.7) Magnesium Level 1.8 mg/dL (1.8-2.4) Albumin 2.2 g/dL (3.4-5.0) Microbiology 03/26/17 Blood Culture - Preliminary, Resulted NO GROWTH AFTER 1 DAY Medications Current Medications Albuterol/ Ipratropium (Duoneb) 3 ml 1X ONCE NEB Last administered on 16:54; Start 03/26/17 at 16:30; Stop 03/26/17 at 16:31; Status DC Azithromycin 250 ml @ 250 mls/hr 1X ONCE IV Last administered on 03/26/17 18:03; Start 03/26/17 at 18:00; Stop 03/26/17 at 18:59; Status DC Ceftriaxone Sodium 50 ml @ 100 mls/hr 1X ONCE IV Last administered on 18:03; Start 03/26/17 at 18:00; Stop 03/26/17 at 18:29; Status DC Ondansetron HCl (Zofran) 4 mg PRN Q6HRS PRN IV NAUSEA/VOMITING; Start at 18:30 Prochlorperazine Edisylate (Compazine) 10 mg PRN Q6HRS PRN IV NAUSEA/VOMITING; Start 03/26/17 at 18:30 Prochlorperazine (Compazine) 25 mg PRN Q12HR PRN [place] NAUSEA/VOMITING; Start at 18:30 Al Hydroxide/Mg Hydroxide (Mylanta Plus Xs) 30 ml PRN Q3HRS PRN PO HEARTBURN / GAS; Start 03/26/17 at 18:30 Calcium Carbonate/ Glycine (Tums) 500 mg PRN Q3HRS PRN PO UPSET STOMACH; Start 03/26/17 at 18:30 Zolpidem Tartrate (Ambien) 5 mg PRN QHS PRN PO INSOMNIA, MAY REPEAT IN 1HR; Start 03/26/17 at 18:30 Oxycodone HCl (Roxicodone) 5 mg PRN Q3HRS PRN PO BREAKTHROUGH PAIN; Start at 18:30 Morphine Sulfate 1 mg PRN Q1HR PRN IV PAIN; Start 03/26/17 at 18:30 Acetaminophen (Tylenol) 650 mg PRN Q6HRS PRN PO Headaches, Temp > 101.5F; Start 03/26/17 at 18:30 Docusate Sodium (Colace) 100 mg BID PO Last administered on 03/28/17 09:15; Start 03/26/17 at 21:00 Lactulose 20 gm PRN Q12HR PRN PO CONSTIPATION; Start 03/26/17 at 18:30 Bisacodyl (Dulcolax Supp) 10 mg PRN DAILY PRN [place] CONSTIPATION; Start 03/26/17 at 18:30 Lactobacillus Rhamnosus (Culturelle) 1 cap BID PO Last administered on 09:16; Start 03/26/17 at 21:00 Albuterol/ Ipratropium (Duoneb) 3 ml RTQID NEB Last administered on 03/28/17 08:38; Start 03/26/17 at 20:00 Albuterol Sulfate (Ventolin Neb Soln) 2.5 mg PRN Q4HRS PRN NEB SHORTNESS OF BREATH; Start 03/26/17 at 19:00 Benzonatate (Tessalon Perle) 100 mg [id number] PO Last administered on 03/27/17 21:57; Start 03/26/17 at 21:00 Guaifenesin (Robitussin Dm) 10 ml QID PO Last administered on 03/28/17 09:19 ; Start 03/26/17 at 21:00 Cetirizine HCl (ZyrTEC) 10 mg DAILY PO Last administered on 03/28/17 09:16; Start 03/27/17 at 09:00 Ceftriaxone Sodium 1 gm/ Dextrose 50 ml @ 100 mls/hr Q24H IV ; Start 03/26/17 at 19:00; Status UNV Azithromycin 250 mg/Sodium Chloride 250 ml @ 250 mls/hr Q24H IV Last administered on 03/27/17 21:58; Start 03/27/17 at 19:00 Amlodipine Besylate (Norvasc) 10 mg DAILY PO Last administered on 03/28/17 09 :17; Start 03/27/17 at 09:00 Aspirin (Hung Aspirin) 325 mg DAILY08 PO Last administered on 03/28/17 09:16 ; Start 03/27/17 at 08:00 Atorvastatin Calcium (Lipitor) 40 mg QHS PO ; Start 03/26/17 at 21:00; Stop at 21:00; Status DC Clopidogrel Bisulfate (Plavix) 75 mg DAILY07 PO Last administered on 09:47; Start 03/27/17 at 07:00; Stop 03/28/17 at 05:31; Status DC Furosemide (Lasix) 40 mg DAILY PO Last administered on 03/28/17 09:17; Start 03/27/17 at 09:00 Linagliptin (Tradjenta) 5 mg DAILY PO Last administered on 03/28/17 09:16; Start 03/27/17 at 09:00 Lisinopril (Prinivil) 40 mg DAILY PO Last administered on 03/28/17 09:16; Start 03/27/17 at 09:00 Metoprolol Succinate (Toprol Xl) 100 mg DAILY PO Last administered on 09:15; Start 03/27/17 at 09:00 Budesonide (Pulmicort) 0.5 mg RTBID NEB Last administered on 03/28/17 08:38; Start 03/27/17 at 08:00 Non-Formulary Medication 1 tab 1X PRN PRN PO ANXIETY / AGITATION; Start at 19:15; Status UNV Insulin Detemir (Levemir) 20 units QHS SQ Last administered on 03/27/17 22:08 ; Start 03/26/17 at 21:00 Non-Formulary Medication 2.5 mg PRN Q4HRS PRN NEB SHORTNESS OF BREATH; Start 03/26/17 at 19:15; Status UNV Ceftriaxone Sodium (Rocephin) 1 gm Q24H IVP Last administered on 03/27/17 21: 56; Start 03/27/17 at 19:00 Insulin Aspart (NovoLOG) 0-9 UNITS TIDWMEALS SQ ; Start 03/27/17 at 08:00 Dextrose (Dextrose 50%-Water Syringe) 12.5 gm PRN Q15MIN PRN IV SEE COMMENTS; Start 03/26/17 at 19:15 Atorvastatin Calcium (Lipitor) 40 mg QHS PO Last administered on 03/27/17 21: 57; Start 03/26/17 at 21:00 Magnesium Sulfate/ Dextrose 50 ml @ 25 mls/hr PRN DAILY PRN IV for Mag < 1.7 on am labs; Start 03/27/17 at 11:15 Darbepoetin Canelo (Aranesp) 100 mcg WEEKLYHS SQ Last administered on 03/27/17 21:56; Start 03/27/17 at 21:00 Lorazepam (Ativan) 0.5 mg PRN Q8HRS PRN IV ANXIETY / AGITATION Last administered on 03/27/17 15:47; Start 03/27/17 at 11:30 Sodium Chloride 1,000 ml @ 1,000 mls/hr Q1H PRN IV hypotension; Start at 14:44; Stop 03/27/17 at 20:43; Status DC Albumin Human 200 ml @ 200 mls/hr 1X PRN PRN IV Hypotension; Start 03/27/17 at 14:45; Stop 03/27/17 at 20:44; Status DC Acetaminophen (Tylenol) 500 mg 1X PRN PRN PO MILD PAIN / TEMP; Start 03/27/17 at 14:45; Stop 03/28/17 at 14:44 Diphenhydramine HCl (Benadryl) 25 mg 1X PRN PRN IV ITCHING; Start 03/27/17 at 14:45; Stop 03/28/17 at 14:44 Diphenhydramine HCl (Benadryl) 25 mg 1X PRN PRN IV ITCHING; Start 03/27/17 at 14:45; Stop 12/19/17 at 14:44 Labetalol HCl (Normodyne) 10 mg PRN Q1HR PRN IVP SBP > 180; Start 03/27/17 at 14:45; Stop 03/28/17 at 14:44 Clonidine HCl (Catapres) 0.1 mg 1X PRN PRN PO SBP > 180; Start 03/27/17 at 14: 45; Stop 03/28/17 at 14:44 Sodium Chloride 1,000 ml @ 400 mls/hr Q2H30M PRN IV PATENCY; Start 03/27/17 at 14:44; Stop 03/28/17 at 02:43; Status DC Info (PHARMACY MONITORING -- do not chart) 1 each PRN DAILY PRN MC SEE COMMENTS ; Start 03/27/17 at 14:45 Lidocaine HCl (Xylocaine-Mpf 1% Vial) 2 ml STK-MED ONCE .ROUTE ; Start at 15:42; Stop 03/27/17 at 15:43; Status DC Clopidogrel Bisulfate (Plavix) 75 mg DAILY08 PO Last administered on t 09:16; Start 03/28/17 at 08:00 Active Scripts Active Keflex (Cephalexin) 500 Mg Capsule 1 Cap PO BID Lisinopril 20 Mg Tablet 20 Tab PO DAILY [Albuterol Sulfate] 2.5 MG/3 ML Nebu 2.5 Mg NEB PRN Q4HRS PRN Tradjenta (Linagliptin) 5 Mg Tablet 5 Mg PO DAILY Reported Breo Ellipta 100-25 Mcg Inh (Fluticasone/Vilanterol) 1 Each Aer.pow.ba 1 Puff IH DAILY Hydroxyzine Hcl 25 Mg Tablet 1 Tab PO 1X PRN PRN Furosemide 40 Mg Tablet 1 Tab PO DAILY Toprol Xl (Metoprolol Succinate) 100 Mg Tab.er.24h 100 Mg PO DAILY Amlodipine Besylate 5 Mg Tablet 10 Mg PO DAILY Proair Hfa Inhaler (Albuterol Sulfate) 8.5 Gm Hfa.aer.ad 2 Puff INH PRN Q6HRS PRN Lantus Solostar (Insulin Glargine,Hum.rec.anlog) 100 Unit/1 Ml Insuln.pen 20 Unit SQ QHS Atorvastatin Calcium 20 Mg Tablet 40 Mg PO DAILY Aspirin 325 Mg Tablet 1 Tab PO DAILY Plavix (Clopidogrel Bisulfate) 75 Mg Tablet 75 Mg PO DAILY Vitals/I & O Vital Sign - Last 24 Hours 03/27/17 03/27/17 03/27/17 03/27/17 11:38 14:48 16:34 19:00 Temp 97.5 98.2 97.5 98.2 Pulse 72 81 Resp 17 20 B/P (MAP) 141/54 (83) 131/61 (84) Pulse Ox 96 93 O2 Delivery Nasal Cannula Nasal Cannula Nasal Cannula Nasal Cannula O2 Flow Rate 4.0 3.0 4.0 03/27/17 03/27/17 03/27/17 03/28/17 20:22 20:40 23:00 03:00 Temp 98.2 98.0 98.2 98.0 Pulse 88 79 Resp 20 20 B/P (MAP) 122/57 (78) 129/87 (101) Pulse Ox 95 90 90 O2 Delivery Nasal Cannula Nasal Cannula Nasal Cannula Nasal Cannula O2 Flow Rate 4.0 3.0 3.0 03/28/17 03/28/17 03/28/17 03/28/17 07:00 08:39 09:15 09:16 Temp 97.7 97.7 Pulse 74 74 74 Resp 18 B/P (MAP) 122/95 (104) 122/95 122/95 Pulse Ox 96 96 O2 Delivery Nasal Cannula Nasal Cannula O2 Flow Rate 4.0 3.0 03/28/17 09:17 Pulse 74 B/P (MAP) 122/95 Intake and Output 03/27/17 03/27/17 03/28/17 15:00 23:00 07:00 Intake Total 480 ml 120 ml Balance 480 ml 120 ml YULIA DE ANDA III DO Mar 28, 2017 11:26
[2017-03-28] MEDS: BENZONATATE 100 MG CAPSULE. PO SCH (12:58)
--- NOTE | 2017-03-28 14:17 | PDOC ---
PULMONARY PROGRESS NOTES Subjective pt feels better cough dark color sputum Vitals Vital Signs Date Time Temp Pulse Resp B/P (MAP) Pulse Ox O2 Delivery O2 Flow Rate FiO2 03/28/17 11:35 Nasal Cannula 3.0 03/28/17 11:00 97.8 75 18 124/89 (101) 96 97.8 General: Alert, Oriented X4, No acute distress Lungs: Crackles Cardiovascular: S1, S2 Abdomen: Soft, Non-tender, Other Neuro Exam: Alert Extremities: No Edema Skin: Warm Labs Laboratory Tests Test 03/26/17 17:13 03/26/17 17:50 03/26/17 20:19 03/27/17 03:20 White Blood Count 12.4 x10^3/uL (4.0-11.0) 12.6 x10^3/uL (4.0-11.0) Red Blood Count 2.69 x10^6/uL (3.50-5.40) 2.52 x10^6/uL (3.50-5.40) Hemoglobin 8.6 g/dL (12.0-15.5) 7.9 g/dL (12.0-15.5) Hematocrit 27.6 % (36.0-47.0) 25.9 % (36.0-47.0) Mean Corpuscular Volume 103 fL (79-100) 103 fL (79-100) Mean Corpuscular Hemoglobin 32 pg (25-35) 31 pg (25-35) Mean Corpuscular Hemoglobin Concent 31 g/dL (31-37) 31 g/dL (31-37) Red Cell Distribution Width 16.0 % (11.5-14.5) 16.0 % (11.5-14.5) Platelet Count 310 x10^3/uL (140-400) 301 x10^3/uL (140-400) Neutrophils (%) (Auto) 85 % (31-73) 87 % (31-73) Lymphocytes (%) (Auto) 5 % (24-48) 4 % (24-48) Monocytes (%) (Auto) 10 % (0-9) 9 % (0-9) Eosinophils (%) (Auto) 0 % (0-3) 0 % (0-3) Basophils (%) (Auto) 0 % (0-3) 0 % (0-3) Neutrophils # (Auto) 10.5 x10^3uL (1.8-7.7) 10.9 x10^3uL (1.8-7.7) Lymphocytes # (Auto) 0.6 x10^3/uL (1.0-4.8) 0.5 x10^3/uL (1.0-4.8) Monocytes # (Auto) 1.2 x10^3/uL (0.0-1.1) 1.1 x10^3/uL (0.0-1.1) Eosinophils # (Auto) 0.0 x10^3/uL (0.0-0.7) 0.0 x10^3/uL (0.0-0.7) Basophils # (Auto) 0.0 x10^3/uL (0.0-0.2) 0.0 x10^3/uL (0.0-0.2) Sodium Level 145 mmol/L (136-145) Potassium Level 4.0 mmol/L (3.5-5.1) Chloride Level 108 mmol/L (98-107) Carbon Dioxide Level 27 mmol/L (21-32) Anion Gap 10 (6-14) Blood Urea Nitrogen 32 mg/dL (7-20) Creatinine 6.8 mg/dL (0.6-1.0) Estimated GFR (Cockcroft-Gault) 7.2 Glucose Level 125 mg/dL (70-99) Calcium Level 8.2 mg/dL (8.5-10.1) Total Bilirubin 0.5 mg/dL (0.2-1.0) Direct Bilirubin 0.1 mg/dL (0.0-0.2) Aspartate Amino Transf (AST/SGOT) 18 U/L (15-37) Alanine Aminotransferase (ALT/SGPT) 15 U/L (14-59) Alkaline Phosphatase 112 U/L (46-116) Troponin I Quantitative < 0.017 ng/mL (0.000-0.055) LT-Vjt-B-Type Natriuretic Peptide > 11287 pg/mL (0-124) Total Protein 6.2 g/dL (6.4-8.2) Albumin 2.8 g/dL (3.4-5.0) Lipase 176 U/L (73-393) Lactic Acid Level 1.3 mmol/L (0.4-2.0) Glucose (Fingerstick) 153 mg/dL (70-99) Segmented Neutrophils % 80 % (35-66) Band Neutrophils % 8 % (0-9) Lymphocytes % 3 % (24-48) Monocytes % 9 % (0-10) Platelet Estimate Adequate (ADEQUATE) Polychromasia Slight Hypochromasia Slight Anisocytosis Slight Prealbumin 16.3 mg/dL (16.0-42.0) Test 03/27/17 03:25 03/27/17 03:40 03/27/17 07:00 03/27/17 11:17 Prothrombin Time 14.3 SEC (11.7-14.0) Prothromb Time International Ratio 1.2 (0.8-1.1) Influenza Type A Antigen Negative (NEGATIVE) Influenza Type B Antigen Negative (NEGATIVE) Glucose (Fingerstick) 140 mg/dL (70-99) 117 mg/dL (70-99) Test 03/27/17 22:01 03/28/17 05:50 03/28/17 07:55 03/28/17 08:26 Glucose (Fingerstick) 152 mg/dL (70-99) 43 mg/dL (70-99) 108 mg/dL (70-99) Hemoglobin 7.8 g/dL (12.0-15.5) Sodium Level 143 mmol/L (136-145) Potassium Level 4.2 mmol/L (3.5-5.1) Chloride Level 106 mmol/L (98-107) Carbon Dioxide Level 31 mmol/L (21-32) Anion Gap 6 (6-14) Blood Urea Nitrogen 23 mg/dL (7-20) Creatinine 4.4 mg/dL (0.6-1.0) Estimated GFR (Cockcroft-Gault) 11.9 Glucose Level 68 mg/dL (70-99) Calcium Level 7.2 mg/dL (8.5-10.1) Phosphorus Level 3.7 mg/dL (2.6-4.7) Magnesium Level 1.8 mg/dL (1.8-2.4) Albumin 2.2 g/dL (3.4-5.0) Test 03/28/17 11:31 03/28/17 11:47 Glucose (Fingerstick) 67 mg/dL (70-99) 80 mg/dL (70-99) Laboratory Tests Test 03/27/17 22:01 03/28/17 05:50 03/28/17 07:55 03/28/17 08:26 Glucose (Fingerstick) 152 mg/dL (70-99) 43 mg/dL (70-99) 108 mg/dL (70-99) Hemoglobin 7.8 g/dL (12.0-15.5) Sodium Level 143 mmol/L (136-145) Potassium Level 4.2 mmol/L (3.5-5.1) Chloride Level 106 mmol/L (98-107) Carbon Dioxide Level 31 mmol/L (21-32) Anion Gap 6 (6-14) Blood Urea Nitrogen 23 mg/dL (7-20) Creatinine 4.4 mg/dL (0.6-1.0) Estimated GFR (Cockcroft-Gault) 11.9 Glucose Level 68 mg/dL (70-99) Calcium Level 7.2 mg/dL (8.5-10.1) Phosphorus Level 3.7 mg/dL (2.6-4.7) Magnesium Level 1.8 mg/dL (1.8-2.4) Albumin 2.2 g/dL (3.4-5.0) Test 03/28/17 11:31 03/28/17 11:47 Glucose (Fingerstick) 67 mg/dL (70-99) 80 mg/dL (70-99) Medications Active Scripts Medications Dose Route/Sig Max Daily Dose Days Date Category Keflex (Cephalexin) 500 Mg Capsule 1 Cap PO BID 11/24/16 Rx Breo Ellipta 100-25 Mcg Inh (Fluticasone/Vilanterol) 1 Each Aer.pow.ba 1 Puff IH DAILY 09/08/16 Reported Hydroxyzine Hcl 25 Mg Tablet 1 Tab PO 1X PRN PRN 09/08/16 Reported Furosemide 40 Mg Tablet 1 Tab PO DAILY 09/07/16 Reported Toprol Xl (Metoprolol Succinate) 100 Mg Tab.er.24h 100 Mg PO DAILY 09/07/16 Reported Amlodipine Besylate 5 Mg Tablet 10 Mg PO DAILY 07/12/16 Reported Proair Hfa Inhaler (Albuterol Sulfate) 8.5 Gm Hfa.aer.ad 2 Puff INH PRN Q6HRS PRN 06/27/16 Reported Lantus Solostar (Insulin Glargine,Hum.rec.anlog) 100 Unit/1 Ml Insuln.pen 20 Unit SQ QHS 09/03/15 Reported Atorvastatin Calcium 20 Mg Tablet 40 Mg PO DAILY 09/03/15 Reported Lisinopril 20 Mg Tablet 20 Tab PO DAILY 06/15/15 Rx [Albuterol Sulfate] 2.5 MG/3 ML Nebu 2.5 Mg NEB PRN Q4HRS PRN 12/26/14 Rx Tradjenta (Linagliptin) 5 Mg Tablet 5 Mg PO DAILY 12/17/14 Rx Aspirin 325 Mg Tablet 1 Tab PO DAILY 01/25/14 Reported Plavix (Clopidogrel Bisulfate) 75 Mg Tablet 75 Mg PO DAILY 01/10/14 Reported Impression . 1. Yphkg-te-uorltsd hypoxic respiratory failure secondary to combination of yyucq-me-qtbihgv diastolic heart failure and acute bronchitis. 2. History of chronic respiratory failure secondary to chronic obstructive pulmonary disease. Now comes in with mild exacerbation. 3. End-stage renal disease, on hemodialysis. 4. Cough with yellow sputum production consistent with bronchitis. No definite consolidation is seen on the chest x-ray. 5. End-stage renal disease. 6. Anemia. Plan . d/c rx for Augmentin follow up in office in May 12 4 EARL Mccartney MD Mar 28, 2017 14:17
== END 2017-03-28 14:22 | disposition home or self-care (01) | DRG 871 ==
LOC: ER 15:31 → 5 SOUTH 18:34
PROVIDERS: ADMIT Internal Medicine; ATTEND Internal Medicine
PROC: 5A1D70Z Performance of Urinary Filtration, Intermittent, Less than 6 Hours Per Day (ICD-10-PCS; principal; 2017-03-27)
DX: A41.9 Sepsis, unspecified organism (principal); J18.9 Pneumonia, unspecified organism; J96.21 Acute and chronic respiratory failure with hypoxia; I13.2 Hypertensive heart and chronic kidney disease with heart failure and with stage 5 chronic kidney disease, or end stage renal disease; N18.6 End stage renal disease; E11.22 Type 2 diabetes mellitus with diabetic chronic kidney disease; E11.51 Type 2 diabetes mellitus with diabetic peripheral angiopathy without gangrene; Z99.81 Dependence on supplemental oxygen; I50.33 Acute on chronic diastolic (congestive) heart failure; J44.0 Chronic obstructive pulmonary disease with (acute) lower respiratory infection; J44.1 Chronic obstructive pulmonary disease with (acute) exacerbation; D64.9 Anemia, unspecified; E78.5 Hyperlipidemia, unspecified; E87.6 Hypokalemia; K57.90 Diverticulosis of intestine, part unspecified, without perforation or abscess without bleeding; F41.9 Anxiety disorder, unspecified; I25.10 Atherosclerotic heart disease of native coronary artery without angina pectoris; I71.4 Abdominal aortic aneurysm, without rupture; J20.9 Acute bronchitis, unspecified; Z82.49 Family history of ischemic heart disease and other diseases of the circulatory system; Z83.3 Family history of diabetes mellitus; Z87.891 Personal history of nicotine dependence; Z99.2 Dependence on renal dialysis; Z98.49 Cataract extraction status, unspecified eye; Z91.041 Radiographic dye allergy status; Z95.5 Presence of coronary angioplasty implant and graft
CPT/HCPCS: 36415; 71010; 80048; 80069; 80076; 82962; 83605; 83690; 83735; 83880; 84134; 84484; 85007; 85018; 85025; 85610; 87040; 87804; 93005; 94640; 94760; J0456; J0690; J0696; J0881; J1815; J2060; J7050; J7620; J7626; 97110; J7030

== ENCOUNTER → 2017-07-11 | Outpatient (CLI) | payer MEDICARE | END | disposition home or self-care (01) | LOC: ECHO 12:05 | DX: I25.10 Atherosclerotic heart disease of native coronary artery without angina pectoris (principal); I27.20 Pulmonary hypertension, unspecified | CPT/HCPCS: 93306 ==

== ENCOUNTER → 2017-08-08 | Outpatient (CLI) | payer MEDICARE ==
[2017-08-08] MEDS: REGADENOSON 0.4 MG/5 ML DISP.SYRIN. IV (11:25)
== END | disposition home or self-care (01) ==
LOC: NM 08:23
DX: I25.10 Atherosclerotic heart disease of native coronary artery without angina pectoris (principal); I45.10 Unspecified right bundle-branch block; I12.9 Hypertensive chronic kidney disease with stage 1 through stage 4 chronic kidney disease, or unspecified chronic kidney disease; N18.9 Chronic kidney disease, unspecified; E11.22 Type 2 diabetes mellitus with diabetic chronic kidney disease; E78.00 Pure hypercholesterolemia, unspecified; Z99.81 Dependence on supplemental oxygen; Z79.01 Long term (current) use of anticoagulants
CPT/HCPCS: 78452; 93017; 96374; 96375; 96376; A9500; J2785

== ENCOUNTER 2017-09-03 14:25 | Emergency (ER) | payer MEDICARE | END 2017-09-03 16:45 | disposition home or self-care (01) | LOC: ER 16:45 | DX: S80.01XA Contusion of right knee, initial encounter (principal); S70.01XA Contusion of right hip, initial encounter; S00.83XA Contusion of other part of head, initial encounter; S50.02XA Contusion of left elbow, initial encounter; J44.9 Chronic obstructive pulmonary disease, unspecified; E78.00 Pure hypercholesterolemia, unspecified; I13.2 Hypertensive heart and chronic kidney disease with heart failure and with stage 5 chronic kidney disease, or end stage renal disease; E11.22 Type 2 diabetes mellitus with diabetic chronic kidney disease; I50.9 Heart failure, unspecified; N18.6 End stage renal disease; Z99.2 Dependence on renal dialysis; Z99.81 Dependence on supplemental oxygen; Z86.718 Personal history of other venous thrombosis and embolism; Z95.1 Presence of aortocoronary bypass graft; I25.2 Old myocardial infarction; Z91.041 Radiographic dye allergy status; W18.39XA Other fall on same level, initial encounter; Y93.89 Activity, other specified; Y99.8 Other external cause status; Y92.89 Other specified places as the place of occurrence of the external cause | CPT/HCPCS: 70450; 70486; 71046; 72040; 73080; 73502; 73562; 99284-25 ==

== ENCOUNTER 2017-11-06 08:41 | Inpatient (IN) | payer MEDICARE ==
[2017-11-06] MEDS: IPRATRPIUM/ALBUTEROL 0.5/2.5MG 3 ML NEBU. NEB ×2 (09:17→21:08)
[2017-11-06 09:20] LABS: BASO # 0.1 x10^3/uL (0.0-0.2); BASO % 1 % (0-3); EOS # 0.1 x10^3/uL (0.0-0.7); EOS % 1 % (0-3); HEMATOCRIT 36.9 % (36.0-47.0); HEMOGLOBIN 11.6 g/dL (12.0-15.5); LYMPH # 0.4 x10^3/uL (1.0-4.8); LYMPH % 4 % (24-48); MEAN CORPUSCULAR HEMOGLOBIN 33 pg (25-35); MEAN CORPUSCULAR HGB CONC 31 g/dL (31-37); MEAN CORPUSCULAR VOLUME 103 fL (79-100); MONO # 0.6 x10^3/uL (0.0-1.1); MONO % 5 % (0-9); NEUT # 9.9 x10^3uL (1.8-7.7); NEUT % 89 % (31-73); PLATELET COUNT 223 x10^3/uL (140-400); RED BLOOD COUNT 3.57 x10^6/uL (3.50-5.40); RED CELL DISTRIBUTION WIDTH 15.7 % (11.5-14.5); WHITE BLOOD COUNT 11.1 x10^3/uL (4.0-11.0)
[2017-11-06 09:26] LABS: ANION GAP 12 (6-14); BLOOD UREA NITROGEN 35 mg/dL (7-20); BUN/CREATININE RATIO 5 (6-20); CALCIUM 8.6 mg/dL (8.5-10.1); CARBON DIOXIDE 22 mmol/L (21-32); CHLORIDE 106 mmol/L (98-107); CREATININE 6.7 mg/dL (0.6-1.0); GFR 7.3; GLUCOSE 130 mg/dL (70-99); POTASSIUM 5.1 mmol/L (3.5-5.1); SODIUM 140 mmol/L (136-145)
[2017-11-06 09:31] LABS: ADD MAN DIFF? YES; ALBUMIN/GLOBULIN RATIO 0.8 (1.0-1.7); ALK PHOS 129 U/L (46-116); ALT (SGPT) 26 U/L (14-59); AST (SGOT) 32 U/L (15-37); MAGNESIUM 1.8 mg/dL (1.8-2.4); TOTAL BILIRUBIN 0.5 mg/dL (0.2-1.0); TOTAL PROTEIN 6.6 g/dL (6.4-8.2)
[2017-11-06 09:34] LABS: TROPONINI 0.039 ng/mL (0.000-0.055)
[2017-11-06 09:40] LABS: CKMB INDEX 2.7 % (0-4); CKMB MASS 4.7 ng/mL (0.0-3.6); CREATINE KINASE 174 U/L (26-192)
[2017-11-06 09:41] LABS: BASE EXCESS ABG -5 mmol/L (-3-3); HCO3 ABG 23 mmol/L (21-28); PCO2 ABG 52 mmHg (35-46); PH ABG 7.26 (7.35-7.45); PO2 ABG 76 mmHg (65-108); SAT O2 ABG 93 % (92-99)
[2017-11-06 09:42] LABS: INR 1.1 (0.8-1.1); PROTHROMBIN TIME PATIENT 13.6 SEC (11.7-14.0)
[2017-11-06 09:43] LABS: NT-PRO BNP > 35000 pg/mL (0-124)
[2017-11-06 09:45] LABS: FIO2 ABG 40
[2017-11-06] MEDS: methylPREDNISolone SOD SUCC PF 125 MG/2 ML VIAL. IV (10:13)
[2017-11-06] MEDS: AZITHRMYCN 500MG IVPB FOR OMNI 250 ML IV (10:50)
[2017-11-06 11:03] LABS: % LYMPHS 6 % (24-48); % MONOS 2 % (0-10); % SEGS 92 % (35-66); PLT ESTIMATE ADEQUATE (ADEQUATE)
[2017-11-06] MEDS ORDERED: IV NORMAL SALINE 1000ML BAG 1,000 ML IV (11:58)
[2017-11-06] MEDS ORDERED: DIALYSIS PATIENT. MC ×2 (12:00)
[2017-11-06 13:38] LABS: HEPATITIS B SURFACE AG Nonreactive (Nonreactive)
[2017-11-06 14:07] LABS: HEPATITIS B SURFACE AB Nonreactive
[2017-11-06] MEDS ORDERED: ALBUTEROL SULFATE 2.5 MG/3 ML NEBU. NEB (20:00)
[2017-11-06] MEDS ORDERED: ALPRAZolam 0.25 MG TABLET PO (20:00)
[2017-11-06] MEDS: ALBUTEROL SULFATE 2.5 MG/3 ML NEBU. NEB ×2 (20:09→20:10)
[2017-11-06] MEDS: BUDESONIDE 0.5 MG/2 ML NEBU. NEB (20:10)
[2017-11-06] MEDS: DICLOFENAC SODIUM 1% TOPICAL GEL 100GM TUBE. TP (20:42)
[2017-11-06] MEDS: INSULIN GLARGINE 300 UNITS/3 ML INSULN.PEN. SQ (20:46)
[2017-11-06 20:47] LABS: POC GLUCOSE 201 mg/dL (70-99)
[2017-11-06] MEDS: cefTRIAXone IV Push 1 GM VIAL. IVP (21:29)
[2017-11-06] MEDS: methylPREDNISolone SOD SUCC PF 40 MG/ML VIAL. IV (21:31)
[2017-11-07 05:21] LABS: HEMOGLOBIN 10.1 g/dL (12.0-15.5); MEAN CORPUSCULAR HEMOGLOBIN 33 pg (25-35); MEAN CORPUSCULAR HGB CONC 33 g/dL (31-37); MEAN CORPUSCULAR VOLUME 101 fL (79-100); PLATELET COUNT 232 x10^3/uL (140-400); RED BLOOD COUNT 3.07 x10^6/uL (3.50-5.40); RED CELL DISTRIBUTION WIDTH 15.2 % (11.5-14.5)
[2017-11-07 06:13] LABS: ANION GAP 8 (6-14); BLOOD UREA NITROGEN 27 mg/dL (7-20); CALCIUM 7.7 mg/dL (8.5-10.1); CARBON DIOXIDE 29 mmol/L (21-32); CHLORIDE 103 mmol/L (98-107); CREATININE 4.4 mg/dL (0.6-1.0); GFR 11.9; GLUCOSE 172 mg/dL (70-99); POTASSIUM 4.8 mmol/L (3.5-5.1); SODIUM 140 mmol/L (136-145)
[2017-11-07] MEDS: IPRATRPIUM/ALBUTEROL 0.5/2.5MG 3 ML NEBU. NEB ×3 (07:15→15:37)
[2017-11-07] MEDS: BUDESONIDE 0.5 MG/2 ML NEBU. NEB (07:15)
[2017-11-07] MEDS ORDERED: NON FORMULARY ITEM (Fluticasone/Vilanterol (Breo Ellipta 100-25 Mcg Inh) 1 PUFF) IH (09:00)
[2017-11-07] MEDS ORDERED: LISINOPRIL 20 MG TABLET PO ×2 (09:00)
[2017-11-07] MEDS: CLOPIDOGREL BISULFATE 75 MG TABLET PO (09:01)
[2017-11-07] MEDS: methylPREDNISolone SOD SUCC PF 40 MG/ML VIAL. IV (09:02)
[2017-11-07] MEDS: ASPIRIN 325 MG TABLET PO (09:02)
[2017-11-07] MEDS: LISINOPRIL 20 MG TABLET PO (09:02)
[2017-11-07] MEDS: DICLOFENAC SODIUM 1% TOPICAL GEL 100GM TUBE. TP ×2 (09:03→13:00)
[2017-11-07] MEDS ORDERED: LACTOBACILLUS RHAMNOSUS GG 1 CAPSULE. PO (21:00)
== END 2017-11-07 16:42 | disposition home or self-care (01) | DRG 177 ==
LOC: ER 08:41 → 5 SOUTH 10:14
PROC: 5A09457 Assistance with Respiratory Ventilation, 24-96 Consecutive Hours, Continuous Positive Airway Pressure (ICD-10-PCS; principal; 2017-11-06)
DX: J69.0 Pneumonitis due to inhalation of food and vomit (principal); N18.6 End stage renal disease; J96.22 Acute and chronic respiratory failure with hypercapnia; J96.21 Acute and chronic respiratory failure with hypoxia; J44.1 Chronic obstructive pulmonary disease with (acute) exacerbation; I13.2 Hypertensive heart and chronic kidney disease with heart failure and with stage 5 chronic kidney disease, or end stage renal disease; J44.0 Chronic obstructive pulmonary disease with (acute) lower respiratory infection; E87.2 Acidosis; I50.9 Heart failure, unspecified; I25.10 Atherosclerotic heart disease of native coronary artery without angina pectoris; E78.00 Pure hypercholesterolemia, unspecified; E11.22 Type 2 diabetes mellitus with diabetic chronic kidney disease; Z99.2 Dependence on renal dialysis; Z99.81 Dependence on supplemental oxygen; K57.90 Diverticulosis of intestine, part unspecified, without perforation or abscess without bleeding; Z83.3 Family history of diabetes mellitus; Z82.49 Family history of ischemic heart disease and other diseases of the circulatory system; Z95.5 Presence of coronary angioplasty implant and graft; M19.90 Unspecified osteoarthritis, unspecified site; G89.29 Other chronic pain; M54.9 Dorsalgia, unspecified; Z91.19 Patient's noncompliance with other medical treatment and regimen; G47.30 Sleep apnea, unspecified; E78.5 Hyperlipidemia, unspecified; F41.9 Anxiety disorder, unspecified; D64.9 Anemia, unspecified
CPT/HCPCS: 36415; 36600; 71045; 80048; 80053; 82553; 82805; 82962; 83735; 83880; 84484; 85007; 85025; 85027; 85610; 86706; 87340; 93005; 94640; 94660; 94760; J0456; J0690; J0696; J1815; J2920; J2930; J7613; J7620; J7626

== ENCOUNTER → 2017-12-14 | Outpatient (CLI) | payer MEDICARE ==
[~2017-12-14] VITALS: Ht 154.9 cm; Wt 74.8 kg
[~2017-12-14] MED LIST changes: +ALPR0.254 PO; +ALTEPLASE 2 MG VIAL IV ONE; +AMLO1TAB6 PO; -AMLO5TAB2 PO; +AMLO5TAB7 PO; +DICL100G18 TP; +FAMOTIDINE 20 MG/2 ML VIAL IVP ONE; +FAMOTIDINE 20 MG/2 ML VIAL ONE; +HEPARIN for IV BOLUS 10,000 UNIT/10 ML VIAL. IV ONE; +HEPARIN for IV BOLUS 10,000 UNIT/10 ML VIAL. ONE; +IODIXANOL 320 MG/ML 100 ML VIAL. IART ONE; +IODIXANOL 320 MG/ML 100 ML VIAL. ONE; +LIDOCAINE WITH 8.4% SOD BICARB 3 ML DISP.SYRIN. IJ ONE; +LIDOCAINE WITH 8.4% SOD BICARB 3 ML DISP.SYRIN. ONE; +METO-247 PO; +MIDAZOLAM HCL/PF 2 MG/2 ML VIAL. IV ONE; +MIDAZOLAM HCL/PF 2 MG/2 ML VIAL. ONE; +diphenhydrAMINE 50 MG/ML VIAL IVP ONE; +diphenhydrAMINE 50 MG/ML VIAL ONE; +fentaNYL PF VIAL 100 MCG/2 ML VIAL IV ONE; +fentaNYL PF VIAL 100 MCG/2 ML VIAL ONE; +methylPREDNISolone SOD SUCC PF 125 MG/2 ML VIAL. IV ONE; +methylPREDNISolone SOD SUCC PF 125 MG/2 ML VIAL. ONE
[2017-12-14 10:28] VITALS: BP 141/81
[2017-12-14 10:44] LABS: BASO % 0 % (0-3); EOS # 0.1 x10^3/uL (0.0-0.7); EOS % 2 % (0-3); HEMATOCRIT 40.5 % (36.0-47.0); HEMOGLOBIN 12.9 g/dL (12.0-15.5); LYMPH # 0.8 x10^3/uL (1.0-4.8); LYMPH % 21 % (24-48); MEAN CORPUSCULAR HEMOGLOBIN 32 pg (25-35); MEAN CORPUSCULAR HGB CONC 32 g/dL (31-37); MEAN CORPUSCULAR VOLUME 101 fL (79-100); MONO # 0.5 x10^3/uL (0.0-1.1); MONO % 13 % (0-9); NEUT # 2.3 x10^3uL (1.8-7.7); NEUT % 63 % (31-73); PLATELET COUNT 206 x10^3/uL (140-400); RED BLOOD COUNT 4.02 x10^6/uL (3.50-5.40); RED CELL DISTRIBUTION WIDTH 15.4 % (11.5-14.5); WHITE BLOOD COUNT 3.6 x10^3/uL (4.0-11.0)
[2017-12-14 10:55] LABS: PROTHROMBIN TIME PATIENT 12.9 SEC (11.7-14.0)
[2017-12-14 10:57] LABS: CREATININE 7.7 mg/dL (0.6-1.0); GFR 6.2; POTASSIUM 5.3 mmol/L (3.5-5.1)
[2017-12-14 11:02] LABS: ALBUMIN/GLOBULIN RATIO 0.9 (1.0-1.7); TOTAL BILIRUBIN 0.4 mg/dL (0.2-1.0); TOTAL PROTEIN 6.5 g/dL (6.4-8.2)
[2017-12-14 12:33] VITALS: BP 135/73
[2017-12-14 12:47] VITALS: BP 126/81
[2017-12-14 13:00] VITALS: BP 146/85
[2017-12-14 13:15] VITALS: BP 152/48
[2017-12-14 13:28] LABS: % BANDS 1 % (0-9); % BASOS 2 % (0-3); % EOS 1 % (0-5); % LYMPHS 24 % (24-48); % MONOS 5 % (0-10); % SEGS 67 % (35-66); PLT ESTIMATE ADEQUATE (ADEQUATE)
[2017-12-14 13:31] VITALS: BP 153/74
--- NOTE | 2017-12-14 16:26 | RAD ---
12/14/2017. 1.Left upper extremity AV fistulogram 2. Balloon angioplasty, proximal outflow vein stenosis Discussion: 72-year-old female with left upper extremity AV graft. Aspiration of blood clots most recent dialysis The risks and benefits of the procedure were discussed the patient. Informed consent was obtained. The patient was brought to fluoroscopy suite and placed in the supine position. A timeout procedure was performed. The left upper extremity was prepped and draped using sterile barrier technique. All elements of maximal sterile barrier technique including the use of a cap, mask, sterile gown, sterile gloves, large sterile sheet, appropriate hand hygiene, and 2% chlorhexidine for cutaneous antisepsis (or acceptable alternative antiseptic per current guidelines) were followed for this procedure. There is a left forearm AV graft which appears to be grossly patent by ultrasound. 1% lidocaine was administered for local anesthesia. The graft was accessed directed towards venous outflow using direct ultrasound guidance , and micropuncture technique. A fistulogram was performed demonstrating patency of the venous limb of the graft. Multifocal moderate stenoses are seen in the proximal outflow vein. The more central outflow/brachial vein is patent. Left brachiocephalic vein and SVC are patent. The graft was compressed and angiography repeated refluxing through the arterial anastomosis which is widely patent. Proximal graft is patent. A 6 [place] vascular sheath was placed. A guidewire was advanced through the stenotic area of the outflow vein. Angioplasty was performed with a 7 mm balloon. This results in significantly improved morphology and flow through the affected vessel. Wires were removed. The sheath was removed over pursestring suture. Sterile dressings were applied. No immediate complications were identified. Fluoroscopy time: 2.0 MIN Dose area product: 23 Gycm2 The procedures performed under conscious sedation including continuous cardiopulmonary monitoring via dedicated sedation nurse. 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 Otherwise patent left upper extremity AV graft
== END | disposition home or self-care (01) ==
LOC: INTRAD 09:55
PROVIDERS: ATTEND Internal Medicine Nephrology
DX: T82.858A Stenosis of other vascular prosthetic devices, implants and grafts, initial encounter (principal); Y83.8 Other surgical procedures as the cause of abnormal reaction of the patient, or of later complication, without mention of misadventure at the time of the procedure; Y92.89 Other specified places as the place of occurrence of the external cause; I25.10 Atherosclerotic heart disease of native coronary artery without angina pectoris; I13.2 Hypertensive heart and chronic kidney disease with heart failure and with stage 5 chronic kidney disease, or end stage renal disease; E11.22 Type 2 diabetes mellitus with diabetic chronic kidney disease; N18.6 End stage renal disease; I50.9 Heart failure, unspecified; E78.5 Hyperlipidemia, unspecified; E78.00 Pure hypercholesterolemia, unspecified; F41.9 Anxiety disorder, unspecified; G47.30 Sleep apnea, unspecified; M19.90 Unspecified osteoarthritis, unspecified site; I73.9 Peripheral vascular disease, unspecified; J43.9 Emphysema, unspecified; J45.909 Unspecified asthma, uncomplicated; K21.9 Gastro-esophageal reflux disease without esophagitis; E66.9 Obesity, unspecified; Z68.31 Body mass index [BMI] 31.0-31.9, adult; Z91.041 Radiographic dye allergy status; Z79.1 Long term (current) use of non-steroidal anti-inflammatories (NSAID); Z79.82 Long term (current) use of aspirin; Z79.4 Long term (current) use of insulin; Z79.01 Long term (current) use of anticoagulants; Z79.899 Other long term (current) drug therapy; Z99.2 Dependence on renal dialysis; Z90.49 Acquired absence of other specified parts of digestive tract; Z98.890 Other specified postprocedural states; Z95.5 Presence of coronary angioplasty implant and graft; Z98.42 Cataract extraction status, left eye; Z83.3 Family history of diabetes mellitus; Z82.49 Family history of ischemic heart disease and other diseases of the circulatory system
CPT/HCPCS: 36415; 36902; 76937; 80053; 85025; 85610; C1725; C1769; C1892; C1894; J1200; J1644; J2250; J2930; J3010; S0028; 85007; 99152; 99153

== ENCOUNTER → 2018-02-23 | Outpatient (CLI) | payer MEDICARE ==
[2017-12-14 13:31] VITALS: BP 153/74
[~2018-02-23] MED LIST changes: -ALTEPLASE 2 MG VIAL IV ONE; -FAMOTIDINE 20 MG/2 ML VIAL IVP ONE; -FAMOTIDINE 20 MG/2 ML VIAL ONE; -HEPARIN for IV BOLUS 10,000 UNIT/10 ML VIAL. IV ONE; -HEPARIN for IV BOLUS 10,000 UNIT/10 ML VIAL. ONE; -IODIXANOL 320 MG/ML 100 ML VIAL. IART ONE; -IODIXANOL 320 MG/ML 100 ML VIAL. ONE; -LIDOCAINE WITH 8.4% SOD BICARB 3 ML DISP.SYRIN. IJ ONE; -LIDOCAINE WITH 8.4% SOD BICARB 3 ML DISP.SYRIN. ONE; -MIDAZOLAM HCL/PF 2 MG/2 ML VIAL. IV ONE; -MIDAZOLAM HCL/PF 2 MG/2 ML VIAL. ONE; -diphenhydrAMINE 50 MG/ML VIAL IVP ONE; -diphenhydrAMINE 50 MG/ML VIAL ONE; -fentaNYL PF VIAL 100 MCG/2 ML VIAL IV ONE; -fentaNYL PF VIAL 100 MCG/2 ML VIAL ONE; -methylPREDNISolone SOD SUCC PF 125 MG/2 ML VIAL. IV ONE; -methylPREDNISolone SOD SUCC PF 125 MG/2 ML VIAL. ONE
--- NOTE | 2018-02-23 16:55 | RAD ---
Ventilation perfusion exam History: Shortness of breath for 6 months, off-and-on chest pain, COPD Comparison: Chest radiograph the same day and also July 13, 2016 ventilation perfusion exam Findings: Ventilation perfusion examination was performed. Ventilation images were acquired after the patient inhaled 15 mCi of xenon-133 gas. Perfusion images were acquired after the patient was injected with 6 mCi of technetium 99m MAA. No significant mismatched perfusion defect is identified comparing the anterior and posterior projections. There is small matched defect of the mid left hemithorax probably along the fissure. There is a small perfusion defect of the right lower lobe as seen on lateral projection although not appreciated on the anterior posterior projections for perfusion images, difficult to assess if ventilation defect. However there was a small focus of decreased perfusion in a similar location on previous ventilation/perfusion exam. Impression: 1. There is low probability for pulmonary embolic disease, perfusion pattern similar to previous July 13, 2016 exam. Electronically signed by: Lg Padilla MD (02/23/2018 4:52 PM) [id number]
--- NOTE | 2018-02-23 17:07 | RAD ---
PA and lateral chest radiograph. History: Shortness of breath, compared radiograph to VQ scan. Comparison: November 06, 2017. Findings: Cardiac silhouette is moderately enlarged. No pneumothorax or pleural effusion is seen. No failure is evident. No focal consolidation is identified. Impression: 1. No acute cardiopulmonary process. 2. Moderate enlargement of cardiac silhouette. Electronically signed by: Josue Segovia MD (02/23/2018 5:04 PM) [facility]
== END | disposition home or self-care (01) ==
LOC: NM 13:56
PROVIDERS: ATTEND Internal Medicine Pulmonary Disease
DX: I51.7 Cardiomegaly (principal); J44.9 Chronic obstructive pulmonary disease, unspecified
CPT/HCPCS: 71046; 78582; 96374; A9540; A9558

== ENCOUNTER 2018-06-07 17:58 | Inpatient (IN) | payer MEDICARE ==
[~2018-06-07] VITALS: Ht 154.9 cm; Wt 65.3 kg
[~2018-06-07 17:58] MED LIST changes: +ALBU2.5V8 INH; +AMIO200T4 PO; +AMLO5TAB10 PO; -AMLO5TAB7 PO; +APIX5TAB PO; +LINA5TAB PO; -LINA5TAB4 PO; -OXYC-323 PO; +OXYC1TAB15 PO; -PROAIR HFA8.5 GM INH; +dilTIAZem HCL PO
[2018-06-07] MEDS ORDERED: IV NORMAL SALINE 1000ML BAG 1,000 ML IV SCH (19:18)
[2018-06-07 19:58] LABS: BASO % 1 % (0-3); EOS # 0.1 x10^3/uL (0.0-0.7); EOS % 2 % (0-3); HEMATOCRIT 39.3 % (36.0-47.0); HEMOGLOBIN 12.2 g/dL (12.0-15.5); LYMPH # 0.7 x10^3/uL (1.0-4.8); LYMPH % 16 % (24-48); MEAN CORPUSCULAR HEMOGLOBIN 31 pg (25-35); MEAN CORPUSCULAR HGB CONC 31 g/dL (31-37); MEAN CORPUSCULAR VOLUME 100 fL (79-100); MONO # 0.6 x10^3/uL (0.0-1.1); MONO % 13 % (0-9); NEUT # 3.3 x10^3uL (1.8-7.7); NEUT % 69 % (31-73); PLATELET COUNT 232 x10^3/uL (140-400); RED BLOOD COUNT 3.91 x10^6/uL (3.50-5.40); RED CELL DISTRIBUTION WIDTH 15.8 % (11.5-14.5); WHITE BLOOD COUNT 4.8 x10^3/uL (4.0-11.0)
[2018-06-07 20:06] LABS: CALCIUM 8.2 mg/dL (8.5-10.1); CREATININE 5.9 mg/dL (0.6-1.0); GFR 8.5; POTASSIUM 3.8 mmol/L (3.5-5.1)
[2018-06-07] MEDS ORDERED: ONDANSETRON PF 4 MG/2 ML VIAL. IV PRN (21:00)
[2018-06-07] MEDS ORDERED: MORPHINE SULFATE 4 MG/ML VIAL. IV PRN (21:00)
[2018-06-08 00:30] VITALS: BP 143/65
--- NOTE | 2018-06-08 00:42 | PHYS DOC ---
Past Medical History Past Medical History: CAD, CHF, COPD, Diabetes-Type II, DVT, High Cholesterol, Hypertension, IA, Renal Disease, Renal Failure, Other Additional Past Medical Histor: dialysis MWF, O2 3LNC @ home, CPAP Past Surgical History: Angioplasty, Other Additional Past Surgical Histo: cardiac cath with stent placement, rotator cuff surgery,AV graft, cataract Alcohol Use: None Drug Use: None Adult General Chief Complaint Chief Complaint: DIARRHEA HPI HPI Patient is a 72-year-old female who presents to the emergency room for further evaluation after having found abnormal findings on a CT of the abdomen and pelvis. She states that she has had chronic diarrhea for approximately a year. She also indicates that she has some intermittent pain in her back. She denies any actual abdominal pain. She also denies any nausea or vomiting. Patient denies any other complaints. Review of Systems Review of Systems Constitutional: Denies fever or chills [] Respiratory: Denies cough or shortness of breath [] Cardiovascular: No additional information not addressed in HPI [] GI: Denies abdominal pain, nausea, vomiting. Complains of chronic diarrhea. [] Musculoskeletal: Complains of intermittent lower back pain [] Integument: Denies rash or skin lesions [] Neurologic: Denies headache, focal weakness or sensory changes [] All other systems were reviewed and found to be within normal limits, except as documented in this note. Current Medications Current Medications Current Medications Medications (Trade) Dose Ordered Sig/Eric Start Time Stop Time Status Last Admin Dose Admin Sodium Chloride 1,000 ml @ 100 mls/hr Q10H 06/07/18 19:18 06/08/18 05:17 06/07/18 19:56 100 MLS/HR Allergies Allergies Allergies Coded Allergies Type Severity Reaction Last Updated Verified Iodinated Contrast- Oral and IV Dye Allergy Intermediate 11/06/17 Yes Physical Exam Physical Exam Constitutional: Well developed, well nourished, no acute distress, non-toxic appearance. [] HENT: Normocephalic, atraumatic, bilateral external ears normal, oropharynx moist, no oral exudates, nose normal. [] Eyes: PERRLA, EOMI, conjunctiva normal, no discharge. [] Neck: Normal range of motion, no tenderness, supple, no stridor. [] Cardiovascular: Regular rate and rhythm[] Lungs & Thorax: Bilateral breath sounds clear to auscultation [] Abdomen: Bowel sounds normal, soft, no tenderness. [] Skin: Warm, dry, no erythema, no rash. [] Extremities: No tenderness, no cyanosis, no clubbing, ROM intact, no edema. [] Neurologic: Awake and alert, no focal deficits noted. [] Current Patient Data Vital Signs Vital Signs Date Time Temp Pulse Resp B/P (MAP) Pulse Ox O2 Delivery O2 Flow Rate FiO2 06/07/18 20:45 84 189/89 (122) 100 Nasal Cannula 3.0 06/07/18 18:54 98.4 20 98.4 Lab Values Laboratory Tests Test 06/07/18 19:50 White Blood Count 4.8 x10^3/uL (4.0-11.0) Red Blood Count 3.91 x10^6/uL (3.50-5.40) Hemoglobin 12.2 g/dL (12.0-15.5) Hematocrit 39.3 % (36.0-47.0) Mean Corpuscular Volume 100 fL (79-100) Mean Corpuscular Hemoglobin 31 pg (25-35) Mean Corpuscular Hemoglobin Concent 31 g/dL (31-37) Red Cell Distribution Width 15.8 % (11.5-14.5) H Platelet Count 232 x10^3/uL (140-400) Neutrophils (%) (Auto) 69 % (31-73) Lymphocytes (%) (Auto) 16 % (24-48) L Monocytes (%) (Auto) 13 % (0-9) H Eosinophils (%) (Auto) 2 % (0-3) Basophils (%) (Auto) 1 % (0-3) Neutrophils # (Auto) 3.3 x10^3uL (1.8-7.7) Lymphocytes # (Auto) 0.7 x10^3/uL (1.0-4.8) L Monocytes # (Auto) 0.6 x10^3/uL (0.0-1.1) Eosinophils # (Auto) 0.1 x10^3/uL (0.0-0.7) Basophils # (Auto) 0.0 x10^3/uL (0.0-0.2) Sodium Level 143 mmol/L (136-145) Potassium Level 3.8 mmol/L (3.5-5.1) Chloride Level 107 mmol/L (98-107) Carbon Dioxide Level 25 mmol/L (21-32) Anion Gap 11 (6-14) Blood Urea Nitrogen 18 mg/dL (7-20) Creatinine 5.9 mg/dL (0.6-1.0) H Estimated GFR (Cockcroft-Gault) 8.5 Glucose Level 106 mg/dL (70-99) H Calcium Level 8.2 mg/dL (8.5-10.1) L Laboratory Tests 06/07/18 19:50 Laboratory Tests 06/07/18 19:50 EKG EKG [] Radiology/Procedures Radiology/Procedures [] Course & Med Decision Making Course & Med Decision Making Pertinent Labs and Imaging studies reviewed. (See chart for details) Patient moved to room upon arrival was evaluated by your medical staff after which an IV was established and blood work was drawn. Patient did have report of CT scan with her and report was reviewed that demonstrated a AAA with greatest diameter of 6 cm. Patient's primary provider had sent patient to the emergency room for urgent CT angiogram to further evaluate the aneurysm. In order had been placed for CT angiogram; however, cytogenetic technician had discussed patient' s case with the on-call radiologist who stated that he did not recommend doing a CT angiogram at this time given patient's contrasted CT scan earlier today. I did discuss this case with hospitalist and patient will be admitted overnight and plan is to obtain images from the imaging center so that our radiology can review images and make plans from there. Dragon Disclaimer Dragon Disclaimer This electronic medical record was generated, in whole or in part, using a voice recognition dictation system. Departure Departure Impression: Primary Impression: AAA (abdominal aortic aneurysm) Disposition: 01 HOME, SELF-CARE Condition: GOOD Referrals: BERTO TORRES MD (PCP) Problem Qualifiers Primary Impression: AAA (abdominal aortic aneurysm) Presence of rupture: without rupture Qualified Codes: I71.4 - Abdominal aortic aneurysm, without rupture KATT FRASER Jr. DO Jun 08, 2018 00:42
--- NOTE | 2018-06-08 01:00 | NUR ---
Pt was admitted with possible AAA from ER after visiting her primary physician yesterday. Pt was contacted by primary r/t abnormal chest CT and asked to go to ER for workup. Pt is A/Ox4, on 3L NC (wears home O2 @ 3L), up adlib using her cane from home. Pt has no current c/o pain, SR with BBB on telemetry, H/P and med rec completed, VSS, will continue to monitor for status changes. Bed in low/locked position, call light within reach.
[2018-06-08 03:11] VITALS: BP 149/70
[2018-06-08] MEDS ORDERED: ATOR40TA PO (03:55)
[2018-06-08] MEDS ORDERED: DILT180C29 PO (03:55)
[2018-06-08] MEDS ORDERED: METO100T5 PO (03:55)
[2018-06-08] MEDS ORDERED: HYDR-2759 PO (03:55)
[2018-06-08] MEDS ORDERED: ALBU2.5V8 INH (03:55)
[2018-06-08] MEDS ORDERED: FURO40TA4 PO (03:55)
[2018-06-08] MEDS ORDERED: BUDE10.2 IH (03:55)
[2018-06-08] MEDS ORDERED: MORPHINE SULFATE 2 MG/ML VIAL. IV PRN (06:39)
[2018-06-08 07:00] VITALS: BP 153/59
[2018-06-08 07:18] LABS: BASO % 0 % (0-3); EOS # 0.1 x10^3/uL (0.0-0.7); EOS % 2 % (0-3); HEMATOCRIT 41.7 % (36.0-47.0); LYMPH # 0.7 x10^3/uL (1.0-4.8); LYMPH % 16 % (24-48); MEAN CORPUSCULAR HEMOGLOBIN 32 pg (25-35); MEAN CORPUSCULAR HGB CONC 31 g/dL (31-37); MEAN CORPUSCULAR VOLUME 103 fL (79-100); MONO # 0.6 x10^3/uL (0.0-1.1); MONO % 14 % (0-9); NEUT # 3.1 x10^3uL (1.8-7.7); NEUT % 69 % (31-73); PLATELET COUNT 256 x10^3/uL (140-400); RED BLOOD COUNT 4.05 x10^6/uL (3.50-5.40); RED CELL DISTRIBUTION WIDTH 16.3 % (11.5-14.5); WHITE BLOOD COUNT 4.4 x10^3/uL (4.0-11.0)
[2018-06-08 11:00] VITALS: BP 163/72
[2018-06-08 11:00] LABS: CALCIUM 7.9 mg/dL (8.5-10.1); CREATININE 6.7 mg/dL (0.6-1.0); GFR 7.3; POTASSIUM 4.2 mmol/L (3.5-5.1)
[2018-06-08] MEDS ORDERED: ALBUTEROL SULFATE 2.5 MG/3 ML NEBU. NEB PRN (11:30)
[2018-06-08] MEDS ORDERED: NON FORMULARY ITEM ([Albuterol Sulfate] 2.5 MG) NEB PRN (11:30)
[2018-06-08] MEDS ORDERED: APIXABAN 5 MG TABLET. PO SCH (12:00)
[2018-06-08] MEDS ORDERED: IV NORMAL SALINE 1000ML BAG 1,000 ML IV PRN ×2 (12:22)
[2018-06-08] MEDS ORDERED: DIALYSIS PATIENT. MC PRN (12:30)
[2018-06-08] MEDS ORDERED: diphenhydrAMINE 50 MG/ML VIAL IV PRN ×2 (12:30)
--- NOTE | 2018-06-08 12:42 | HP ---
ADMIT DATE: 06/07/2018 CHIEF COMPLAINT: AAA. HISTORY OF PRESENT ILLNESS: The patient is a pleasant 72-year-old female who was seen by her primary care doctor and was evaluated with a CAT scan to rule out AAA. She apparently did have AAA. It is about 6 cm large. She was told to go to the ER. She also has a complaint of chronic diarrhea for the past year and pain in her back. I suspect that is what prompted the primary care doctor to evaluate her. Rates her pain at 7/10. It is worse with moving, better with sitting still, describes as agonizing. I discussed the case with ER physician. We are going to admit the patient and consult Vascular Surgery and her principal secretary as she is a dialysis patient. PAST MEDICAL HISTORY: Vasculopathy, CAD, CHF, COPD, diabetes, hypertension, hyperlipidemia, end-stage renal disease, on dialysis; cardiac catheterization with stents, rotator cuff surgery, AV graft, cataract surgery. ALLERGIES: IODINE. FAMILY HISTORY: Coronary artery disease. SOCIAL HISTORY: She quit smoking, no drinking or drugs. MEDICATIONS: Reviewed, please refer to the [facility]. She is on 15 home medications including albuterol, Eliquis, amiodarone, Lipitor, metoprolol, diazepam, lisinopril, aspirin, hydrocodone, hydroxyzine, Lasix, Symbicort, insulin, and vitamins. REVIEW OF SYSTEMS: GENERAL: No history of weight change, weakness or fevers. SKIN: No bruising, hair changes or rashes. EYES: No blurred, double or loss of vision. NOSE AND THROAT: No history of nosebleeds, hoarseness or sore throat. HEART: No history of palpitations, chest pain or shortness of breath on exertion. LUNGS: Denies cough, hemoptysis, wheezing or shortness of breath. GASTROINTESTINAL: She complains of intermittent abdominal pain. GENITOURINARY: No history of frequency, urgency, hesitancy or nocturia. NEUROLOGIC: Denies history of numbness, tingling, tremor or weakness. PSYCHIATRIC: No history of panic, anxiety or depression. ENDOCRINE: No history of heat or cold intolerance, polyuria or polydipsia. EXTREMITIES: Denies muscle weakness, joint pain, pain on walking or stiffness. PHYSICAL EXAMINATION: VITAL SIGNS: Temperature is afebrile, pulse 80, respirations 18, blood pressure 160/70, O2 sat 96% on 3 liters. GENERAL: She is alert, cooperative, pleasant. HEART: Normal S1, S2 with a soft S3. LUNGS: Mostly clear. ABDOMEN: Soft, little obese, slightly tender. EXTREMITIES: 1+ edema. SKIN: No rashes. ENDOCRINE: No thyromegaly. LYMPHATICS: No cervical nodes. HEMATOPOIETIC: No bruising. PSYCHIATRIC: She is stable. LABORATORY DATA: Hematology is normal. Electrolytes are normal other than a BUN of 21 and creatinine of 6.7. ASSESSMENT AND PLAN: A 6 cm AAA in an elderly female who is on dialysis and has multiple comorbidities. Long-term prognosis is guarded. We do try to operate on people who have AAA bigger than 5 cm, but she is not the greatest surgical candidate. We will go ahead and consult Pulmonary and Vascular Surgery and Interventional Radiology to get a second opinion regarding this. For now, I am going to continue her home meds, cardiac monitoring, frequent labs, full code, DVT prophylaxis, p.r.n. morphine, SCDs, n.p.o. until seen by the other specialists. Again, long-term prognosis is very guarded with this large AAA. YULIA DE ANDA DO DR: MAGO/courtney JOB#: [id number] / [id number]
--- NOTE | 2018-06-08 13:22 | NUR ---
SS following for discharge planning. SS reviewed pt chart. Pt is from home with spouse and is currently requiring oxygen. No discharge needs noted at this time. SS will continue to follow for pending discharge needs.
[2018-06-08] MEDS: BUDESONIDE 0.5 MG/2 ML NEBU. NEB SCH ×2 (13:35→21:21)
[2018-06-08] MEDS: ALBUTEROL SULFATE 2.5 MG/3 ML NEBU. NEB SCH ×3 (13:35→21:20)
[2018-06-08] MEDS ORDERED: diphenhydrAMINE HCL 25 MG CAPSULE PO PRN (14:45)
--- NOTE | 2018-06-08 14:54 | NUR ---
Holding eliquis per vascular surgeon order.
--- NOTE | 2018-06-08 15:14 | PDOC2 ---
CONSULT Date of Consult Date of Consult DATE: 06/08/18 TIME: 14:30 Reason for Consult Reason for Consult: Asymptomatic Abdominal Aortic Aneurysm Referring Physician Referring Physician: Dr. Everett Identification/Chief Complaint Chief Complaint Abdominal Aortic Aneurysm, Asymptomatic Source Source: Chart review, Patient History of Present Illness Reason for Visit: 72 year-old female presented to her primary care physician with a several month history of diarrhea and weight loss. A CT scan was performed and patient was noted to have a 6 cm abdominal aortic aneurysm. Patient was sent to the emergency room for evaluation. Patient currently denies any abdominal or back pain. She states that she has had several months of "feeling full full after eating followed by diarrhea". CT scan in July 2016 noted her AAA to be 4.9cm. Patient states she was unaware she had an abdominal aortic aneurysm. Patient has a history of chronic obstructive pulmonary disease she is on 3 L/NC of oxygen at home. Patient has a history of congestive heart failure and atrial fibrillation she had cardioversion in March 2018. Her last Echocardiogram was in March 2018 noting EF of 60%. She currently is anticoagulated on Eliquis. The patient has end-stage renal disease and has been on dialysis for approximately 4 years. Patient denies any history of claudication. Patient denies any history of TIA or stroke. She does complain of shortness of breath and fatigue upon exertion especially when walking upstairs. She has a remote history of appendectomy with a healed midline scar she has a history of left iliac stent placement. Past Medical History Cardiovascular: AFIB, CAD, CHF, HTN, Hyperlipidemia, Other Pulmonary: Asthma, COPD (home O2 3L/NC ), Other CENTRAL NERVOUS SYSTEM: Other GI: Diverticulosis Heme/Onc: Anemia NOS Psych: Anxiety Rheumatologic: No pertinent hx Infectious disease: No pertinent hx Renal/: Chronic renal failure (on dialysis) Endocrine: Diabetes, Hyperparathyroidism Past Surgical History Past Surgical History: Appendectomy, Arthroscopy, Cataract Removal, Other Family History Family History: Coronary Artery Disease, Diabetes, Hypertension Social History ALCOHOL: none Drugs: None Lives: with Family Domestic Violence: Neg Current Medications Current Medications Current Medications Sodium Chloride 1,000 ml @ 100 mls/hr Q10H IV Last administered on 06/07/18at 19:56; Start 06/07/18 at 19:18; Stop 06/08/18 at 05:17; Status DC Ondansetron HCl (Zofran) 4 mg PRN Q8HRS PRN IV NAUSEA/VOMITING 1ST CHOICE; Start 06/07/18 at 21:00; Stop 06/08/18 at 20:59 Morphine Sulfate (Morphine Sulfate) 2 mg PRN Q2HR PRN IV SEVERE PAIN; Start at 21:00; Stop 06/08/18 at 06:39; Status DC Morphine Sulfate (Morphine Sulfate) 2 mg PRN Q2HR PRN IV SEVERE PAIN; Start 06/08/18 at 06:39; Stop 06/08/18 at 20:59 Amiodarone HCl (Cordarone) 200 mg DAILY PO ; Start 06/08/18 at 12:00 Apixaban (Eliquis) 5 mg BID PO ; Start 06/08/18 at 12:00 Aspirin (Hung Aspirin) 325 mg DAILY PO ; Start 06/08/18 at 12:00 Atorvastatin Calcium (Lipitor) 40 mg HS PO ; Start 06/08/18 at 21:00 Furosemide (Lasix) 40 mg DAILY PO ; Start 06/08/18 at 12:00 Acetaminophen/ Hydrocodone Bitart (Lortab 5/325) 1 tab PRN Q6HRS PRN PO back pain ; Start 06/08/18 at 11:30 Insulin Glargine (Lantus) 30 units QHS SQ ; Start 06/08/18 at 21:00 Lisinopril (Prinivil) 20 mg DAILY PO ; Start 06/08/18 at 12:00 Metoprolol Succinate (Toprol Xl) 100 mg DAILY PO ; Start 06/08/18 at 12:00 Non-Formulary Medication (Budesonide/ Formoterol Fumarate (Symbicort 160-4.5 Mcg Inhaler)) 2 puff BID IH ; Start 06/08/18 at 21:00; Status UNV Diltiazem HCl (Cardizem 24hr Cd) 180 mg DAILY PO ; Start 06/08/18 at 12:00 Hydroxyzine Pamoate (Vistaril) 50 mg QMWF PO ; Start 06/08/18 at 16:00 Non-Formulary Medication ([Albuterol Sulfate] ) 2.5 mg PRN Q4HRS PRN NEB SHORTNESS OF BREATH; Start 06/08/18 at 11:30; Status UNV Budesonide (Pulmicort) 0.5 mg RTBID NEB Last administered on 06/08/18at 13:35; Start 06/08/18 at 12:00 Albuterol Sulfate (Ventolin Neb Soln) 2.5 mg RTQID NEB Last administered on 06/08at 13:35; Start 06/08/18 at 12:00 Albuterol Sulfate (Ventolin Neb Soln) 2.5 mg PRN Q4HRS PRN NEB SHORTNESS OF BREATH; Start 06/08/18 at 11:30 Sodium Chloride 1,000 ml @ 1,000 mls/hr Q1H PRN IV hypotension; Start 06/08/18 at 12:22; Stop 06/08/18 at 18:21 Diphenhydramine HCl (Benadryl) 25 mg 1X PRN PRN IV ITCHING; Start 06/08/18 at 12 :30; Stop 06/09/18 at 12:29 Diphenhydramine HCl (Benadryl) 25 mg 1X PRN PRN IV ITCHING; Start 06/08/18 at 12 :30; Stop 06/09/18 at 12:29 Sodium Chloride 1,000 ml @ 400 mls/hr Q2H30M PRN IV PATENCY; Start 06/08/18 at 12:22; Stop 06/09/18 at 00:21 Info (PHARMACY MONITORING -- do not chart) 1 each PRN DAILY PRN MC SEE COMMENTS ; Start 06/08/18 at 12:30 Active Scripts Active Amiodarone Hcl 200 Mg Tablet 200 Mg PO DAILY MDD 1 Eliquis (Apixaban) 5 Mg Tablet 5 Mg PO BID MDD ` [Albuterol Sulfate] 2.5 MG/3 ML Nebu 2.5 Mg NEB PRN Q4HRS PRN Reported Diltiazem 24HR Cd (Diltiazem Hcl) 180 Mg Cap.er.24h 180 Mg PO DAILY Lipitor (Atorvastatin Calcium) 40 Mg Tablet 40 Mg PO HS Hydrocodone-Acetamin 5-325 mg (Hydrocodone/Acetaminophen) 1 Each Tablet 1 Each PO PRN Q6HRS PRN Furosemide 40 Mg Tablet 40 Mg PO DAILY Symbicort 160-4.5 Mcg Inhaler (Budesonide/Formoterol Fumarate) 10.2 Gm Hfa.aer.ad 2 Puff IH BID Toprol Xl (Metoprolol Succinate) 100 Mg Tab.er.24h 100 Mg PO DAILY Proair Hfa Inhaler (Albuterol Sulfate) 8.5 Gm Hfa.aer.ad 1 Puff INH PRN Q6HRS PRN Marina-Jayme Tablet (Folic Acid/Vitamin B Comp W-C) 0.8 Mg Tablet 0.8 Mg PO DAILY Hydroxyzine Hcl 25 Mg Tablet 50 Mg PO QMWF Lisinopril 20 Mg Tablet 1 Tab PO DAILY Lantus Solostar (Insulin Glargine,Hum.rec.anlog) 100 Unit/1 Ml Insuln.pen 30 Unit SQ QHS Aspirin 325 Mg Tablet 1 Tab PO DAILY Allergies Allergies: Coded Allergies: Iodinated Contrast- Oral and IV Dye (Verified Allergy, Intermediate, ) ROS Review of System Constitutional: Denies fever, chills, positive for weight loss. Respiratory: Shortness of breath upon exertion with stairs. Home Oxygen 3 L/NC Cardiovascular: No chest pain, palpitations, positive for left lower extremity peripheral edema. Gastrointestinal: Denies any back or abdominal pain, denies postprandial pain, complains of diarrhea and "fullness" when she eats Integumentary/breast: No rash, or rhinitis or skin changes. Musculoskeletal: As per HPI Neurological: No gross deficits All other reviews systems negative except history of present illness. Physical Exam General: Alert, Oriented X3 Lungs: Normal air movement Heart: Regular rate Abdomen: Normal bowel sounds, Soft, No tenderness, Other (obese, healed midline scar below umbilicus) Skin: No rashes, No breakdown, No significant lesion Neuro: Normal speech, Sensation intact MUSCULOSKELETAL: No joint tenderness, Full range of motion without pain, Other (2+palpable bilateral radial, femoral, dorsalis pedis pulses. Patient does have left lower extremity swelling.) Vitals VITALS Vital Signs Date Time Temp Pulse Resp B/P (MAP) Pulse Ox O2 Delivery O2 Flow Rate FiO2 06/08/18 13:37 Nasal Cannula 3.0 06/08/18 11:00 98.0 83 18 163/72 (102) 96 98.0 Labs Labs Laboratory Tests Test 06/07/18 19:50 06/08/18 07:00 06/08/18 07:51 06/08/18 10:26 White Blood Count 4.8 x10^3/uL (4.0-11.0) 4.4 x10^3/uL (4.0-11.0) Red Blood Count 3.91 x10^6/uL (3.50-5.40) 4.05 x10^6/uL (3.50-5.40) Hemoglobin 12.2 g/dL (12.0-15.5) 13.0 g/dL (12.0-15.5) Hematocrit 39.3 % (36.0-47.0) 41.7 % (36.0-47.0) Mean Corpuscular Volume 100 fL (79-100) 103 fL (79-100) Mean Corpuscular Hemoglobin 31 pg (25-35) 32 pg (25-35) Mean Corpuscular Hemoglobin Concent 31 g/dL (31-37) 31 g/dL (31-37) Red Cell Distribution Width 15.8 % (11.5-14.5) 16.3 % (11.5-14.5) Platelet Count 232 x10^3/uL (140-400) 256 x10^3/uL (140-400) Neutrophils (%) (Auto) 69 % (31-73) 69 % (31-73) Lymphocytes (%) (Auto) 16 % (24-48) 16 % (24-48) Monocytes (%) (Auto) 13 % (0-9) 14 % (0-9) Eosinophils (%) (Auto) 2 % (0-3) 2 % (0-3) Basophils (%) (Auto) 1 % (0-3) 0 % (0-3) Neutrophils # (Auto) 3.3 x10^3uL (1.8-7.7) 3.1 x10^3uL (1.8-7.7) Lymphocytes # (Auto) 0.7 x10^3/uL (1.0-4.8) 0.7 x10^3/uL (1.0-4.8) Monocytes # (Auto) 0.6 x10^3/uL (0.0-1.1) 0.6 x10^3/uL (0.0-1.1) Eosinophils # (Auto) 0.1 x10^3/uL (0.0-0.7) 0.1 x10^3/uL (0.0-0.7) Basophils # (Auto) 0.0 x10^3/uL (0.0-0.2) 0.0 x10^3/uL (0.0-0.2) Sodium Level 143 mmol/L (136-145) 144 mmol/L (136-145) Potassium Level 3.8 mmol/L (3.5-5.1) 4.2 mmol/L (3.5-5.1) Chloride Level 107 mmol/L (98-107) 107 mmol/L (98-107) Carbon Dioxide Level 25 mmol/L (21-32) 25 mmol/L (21-32) Anion Gap 11 (6-14) 12 (6-14) Blood Urea Nitrogen 18 mg/dL (7-20) 21 mg/dL (7-20) Creatinine 5.9 mg/dL (0.6-1.0) 6.7 mg/dL (0.6-1.0) Estimated GFR (Cockcroft-Gault) 8.5 7.3 Glucose Level 106 mg/dL (70-99) 81 mg/dL (70-99) Calcium Level 8.2 mg/dL (8.5-10.1) 7.9 mg/dL (8.5-10.1) Glucose (Fingerstick) 85 mg/dL (70-99) Test 06/08/18 12:09 Glucose (Fingerstick) 67 mg/dL (70-99) Laboratory Tests Test 06/07/18 19:50 06/08/18 07:00 06/08/18 07:51 06/08/18 10:26 White Blood Count 4.8 x10^3/uL (4.0-11.0) 4.4 x10^3/uL (4.0-11.0) Red Blood Count 3.91 x10^6/uL (3.50-5.40) 4.05 x10^6/uL (3.50-5.40) Hemoglobin 12.2 g/dL (12.0-15.5) 13.0 g/dL (12.0-15.5) Hematocrit 39.3 % (36.0-47.0) 41.7 % (36.0-47.0) Mean Corpuscular Volume 100 fL (79-100) 103 fL (79-100) Mean Corpuscular Hemoglobin 31 pg (25-35) 32 pg (25-35) Mean Corpuscular Hemoglobin Concent 31 g/dL (31-37) 31 g/dL (31-37) Red Cell Distribution Width 15.8 % (11.5-14.5) 16.3 % (11.5-14.5) Platelet Count 232 x10^3/uL (140-400) 256 x10^3/uL (140-400) Neutrophils (%) (Auto) 69 % (31-73) 69 % (31-73) Lymphocytes (%) (Auto) 16 % (24-48) 16 % (24-48) Monocytes (%) (Auto) 13 % (0-9) 14 % (0-9) Eosinophils (%) (Auto) 2 % (0-3) 2 % (0-3) Basophils (%) (Auto) 1 % (0-3) 0 % (0-3) Neutrophils # (Auto) 3.3 x10^3uL (1.8-7.7) 3.1 x10^3uL (1.8-7.7) Lymphocytes # (Auto) 0.7 x10^3/uL (1.0-4.8) 0.7 x10^3/uL (1.0-4.8) Monocytes # (Auto) 0.6 x10^3/uL (0.0-1.1) 0.6 x10^3/uL (0.0-1.1) Eosinophils # (Auto) 0.1 x10^3/uL (0.0-0.7) 0.1 x10^3/uL (0.0-0.7) Basophils # (Auto) 0.0 x10^3/uL (0.0-0.2) 0.0 x10^3/uL (0.0-0.2) Sodium Level 143 mmol/L (136-145) 144 mmol/L (136-145) Potassium Level 3.8 mmol/L (3.5-5.1) 4.2 mmol/L (3.5-5.1) Chloride Level 107 mmol/L (98-107) 107 mmol/L (98-107) Carbon Dioxide Level 25 mmol/L (21-32) 25 mmol/L (21-32) Anion Gap 11 (6-14) 12 (6-14) Blood Urea Nitrogen 18 mg/dL (7-20) 21 mg/dL (7-20) Creatinine 5.9 mg/dL (0.6-1.0) 6.7 mg/dL (0.6-1.0) Estimated GFR (Cockcroft-Gault) 8.5 7.3 Glucose Level 106 mg/dL (70-99) 81 mg/dL (70-99) Calcium Level 8.2 mg/dL (8.5-10.1) 7.9 mg/dL (8.5-10.1) Glucose (Fingerstick) 85 mg/dL (70-99) Test 06/08/18 12:09 Glucose (Fingerstick) 67 mg/dL (70-99) Assessment/Plan Assessment/Plan Assessment: 1. Abdominal aortic aneurysm, 6 cm. 2. COPD on 3L/NC 3. CHF, history A-fib with Cardioversion, one Eliquis 4. End-stage renal disease on dialysis. Recommendations: 1. CT angiogram of abdomen and pelvis for stent graft protocol, patient will need pretreatment for contrast allergy. Discussed with radiology likely will be performed tomorrow. Patient's nurse spoke with Dr. Santamaria regarding contrast administration, patient will be ok to receive dialysis as scheduled on Monday and not sooner. 2. Pulmonary consult for preoperative clearance. 3. Cardiology consult for preoperative cardiac clearance along with recommendations regarding holding Eliquis for procedure. 4. Carotid ultrasound for preoperative evaluation. 5. Recommend surgical intervention to repair abdominal aortic aneurysm with Endovascular Stent Graft. Tentatively scheduled 06/12/[address] Douglass pending results of CTA as well as medical evaluation by Cardiology and Pulmonary. Discussed plan of care with patient [facility] regards for surgical intervention. Patient does express the desire to proceed with surgical repair but does understand that she is at high risk due to other comorbidities. Discussed all of the above with the patient's nurse. Dr. Maddox will see patient, review plan of care and pending images and make additional recommendations as needed. LIONEL IZQUIERDO APRN Jun 08, 2018 15:14
--- NOTE | 2018-06-08 15:16 | NUR ---
Spoke to Dr. Santamaria about patient needing dialysis within 24 hours after CTA which is what CT requested. Dr. Santamaria stated that as long as the patient is pre-dosed properly before CTA, she will not need dialysis until Monday which is her current schedule.
--- NOTE | 2018-06-08 15:36 | PDOC ---
PULMONARY PROGRESS NOTES Vitals Vital Signs Date Time Temp Pulse Resp B/P (MAP) Pulse Ox O2 Delivery O2 Flow Rate FiO2 06/08/18 13:37 Nasal Cannula 3.0 06/08/18 11:00 98.0 83 18 163/72 (102) 96 98.0 General: Alert Lungs: Clear, Wheezing, Crackles Cardiovascular: S1, S2 Abdomen: Soft, Non-tender, Other Extremities: No Edema Labs Laboratory Tests Test 06/07/18 19:50 06/08/18 07:00 06/08/18 07:51 06/08/18 10:26 White Blood Count 4.8 x10^3/uL (4.0-11.0) 4.4 x10^3/uL (4.0-11.0) Red Blood Count 3.91 x10^6/uL (3.50-5.40) 4.05 x10^6/uL (3.50-5.40) Hemoglobin 12.2 g/dL (12.0-15.5) 13.0 g/dL (12.0-15.5) Hematocrit 39.3 % (36.0-47.0) 41.7 % (36.0-47.0) Mean Corpuscular Volume 100 fL (79-100) 103 fL (79-100) Mean Corpuscular Hemoglobin 31 pg (25-35) 32 pg (25-35) Mean Corpuscular Hemoglobin Concent 31 g/dL (31-37) 31 g/dL (31-37) Red Cell Distribution Width 15.8 % (11.5-14.5) 16.3 % (11.5-14.5) Platelet Count 232 x10^3/uL (140-400) 256 x10^3/uL (140-400) Neutrophils (%) (Auto) 69 % (31-73) 69 % (31-73) Lymphocytes (%) (Auto) 16 % (24-48) 16 % (24-48) Monocytes (%) (Auto) 13 % (0-9) 14 % (0-9) Eosinophils (%) (Auto) 2 % (0-3) 2 % (0-3) Basophils (%) (Auto) 1 % (0-3) 0 % (0-3) Neutrophils # (Auto) 3.3 x10^3uL (1.8-7.7) 3.1 x10^3uL (1.8-7.7) Lymphocytes # (Auto) 0.7 x10^3/uL (1.0-4.8) 0.7 x10^3/uL (1.0-4.8) Monocytes # (Auto) 0.6 x10^3/uL (0.0-1.1) 0.6 x10^3/uL (0.0-1.1) Eosinophils # (Auto) 0.1 x10^3/uL (0.0-0.7) 0.1 x10^3/uL (0.0-0.7) Basophils # (Auto) 0.0 x10^3/uL (0.0-0.2) 0.0 x10^3/uL (0.0-0.2) Sodium Level 143 mmol/L (136-145) 144 mmol/L (136-145) Potassium Level 3.8 mmol/L (3.5-5.1) 4.2 mmol/L (3.5-5.1) Chloride Level 107 mmol/L (98-107) 107 mmol/L (98-107) Carbon Dioxide Level 25 mmol/L (21-32) 25 mmol/L (21-32) Anion Gap 11 (6-14) 12 (6-14) Blood Urea Nitrogen 18 mg/dL (7-20) 21 mg/dL (7-20) Creatinine 5.9 mg/dL (0.6-1.0) 6.7 mg/dL (0.6-1.0) Estimated GFR (Cockcroft-Gault) 8.5 7.3 Glucose Level 106 mg/dL (70-99) 81 mg/dL (70-99) Calcium Level 8.2 mg/dL (8.5-10.1) 7.9 mg/dL (8.5-10.1) Glucose (Fingerstick) 85 mg/dL (70-99) Test 06/08/18 12:09 Glucose (Fingerstick) 67 mg/dL (70-99) Laboratory Tests Test 06/07/18 19:50 06/08/18 07:00 06/08/18 07:51 06/08/18 10:26 White Blood Count 4.8 x10^3/uL (4.0-11.0) 4.4 x10^3/uL (4.0-11.0) Red Blood Count 3.91 x10^6/uL (3.50-5.40) 4.05 x10^6/uL (3.50-5.40) Hemoglobin 12.2 g/dL (12.0-15.5) 13.0 g/dL (12.0-15.5) Hematocrit 39.3 % (36.0-47.0) 41.7 % (36.0-47.0) Mean Corpuscular Volume 100 fL (79-100) 103 fL (79-100) Mean Corpuscular Hemoglobin 31 pg (25-35) 32 pg (25-35) Mean Corpuscular Hemoglobin Concent 31 g/dL (31-37) 31 g/dL (31-37) Red Cell Distribution Width 15.8 % (11.5-14.5) 16.3 % (11.5-14.5) Platelet Count 232 x10^3/uL (140-400) 256 x10^3/uL (140-400) Neutrophils (%) (Auto) 69 % (31-73) 69 % (31-73) Lymphocytes (%) (Auto) 16 % (24-48) 16 % (24-48) Monocytes (%) (Auto) 13 % (0-9) 14 % (0-9) Eosinophils (%) (Auto) 2 % (0-3) 2 % (0-3) Basophils (%) (Auto) 1 % (0-3) 0 % (0-3) Neutrophils # (Auto) 3.3 x10^3uL (1.8-7.7) 3.1 x10^3uL (1.8-7.7) Lymphocytes # (Auto) 0.7 x10^3/uL (1.0-4.8) 0.7 x10^3/uL (1.0-4.8) Monocytes # (Auto) 0.6 x10^3/uL (0.0-1.1) 0.6 x10^3/uL (0.0-1.1) Eosinophils # (Auto) 0.1 x10^3/uL (0.0-0.7) 0.1 x10^3/uL (0.0-0.7) Basophils # (Auto) 0.0 x10^3/uL (0.0-0.2) 0.0 x10^3/uL (0.0-0.2) Sodium Level 143 mmol/L (136-145) 144 mmol/L (136-145) Potassium Level 3.8 mmol/L (3.5-5.1) 4.2 mmol/L (3.5-5.1) Chloride Level 107 mmol/L (98-107) 107 mmol/L (98-107) Carbon Dioxide Level 25 mmol/L (21-32) 25 mmol/L (21-32) Anion Gap 11 (6-14) 12 (6-14) Blood Urea Nitrogen 18 mg/dL (7-20) 21 mg/dL (7-20) Creatinine 5.9 mg/dL (0.6-1.0) 6.7 mg/dL (0.6-1.0) Estimated GFR (Cockcroft-Gault) 8.5 7.3 Glucose Level 106 mg/dL (70-99) 81 mg/dL (70-99) Calcium Level 8.2 mg/dL (8.5-10.1) 7.9 mg/dL (8.5-10.1) Glucose (Fingerstick) 85 mg/dL (70-99) Test 06/08/18 12:09 Glucose (Fingerstick) 67 mg/dL (70-99) Medications Active Scripts Medications Dose Route/Sig Max Daily Dose Days Date Category Diltiazem 24HR Cd (Diltiazem Hcl) 180 Mg Cap.er.24h 180 Mg PO DAILY 06/08/18 Reported Lipitor (Atorvastatin Calcium) 40 Mg Tablet 40 Mg PO HS 06/08/18 Reported Hydrocodone-Acetamin 5-325 mg (Hydrocodone/Acetaminophen) 1 Each Tablet 1 Each PO PRN Q6HRS PRN 06/08/18 Reported Furosemide 40 Mg Tablet 40 Mg PO DAILY 06/08/18 Reported Symbicort 160-4.5 Mcg Inhaler (Budesonide/Formoterol Fumarate) 10.2 Gm Hfa.aer.ad 2 Puff IH BID 06/08/18 Reported Toprol Xl (Metoprolol Succinate) 100 Mg Tab.er.24h 100 Mg PO DAILY 06/08/18 Reported Proair Hfa Inhaler (Albuterol Sulfate) 8.5 Gm Hfa.aer.ad 1 Puff INH PRN Q6HRS PRN 06/08/18 Reported Amiodarone Hcl 200 Mg Tablet 200 Mg PO DAILY MDD 1 03/24/18 Rx Eliquis (Apixaban) 5 Mg Tablet 5 Mg PO BID MDD ` 03/24/18 Rx Marina-Jayme Tablet (Folic Acid/Vitamin B Comp W-C) 0.8 Mg Tablet 0.8 Mg PO DAILY 03/21/18 Reported Hydroxyzine Hcl 25 Mg Tablet 50 Mg PO QMWF 03/21/18 Reported Lisinopril 20 Mg Tablet 1 Tab PO DAILY 11/06/17 Reported Lantus Solostar (Insulin Glargine,Hum.rec.anlog) 100 Unit/1 Ml Insuln.pen 30 Unit SQ QHS 09/03/15 Reported [Albuterol Sulfate] 2.5 MG/3 ML Nebu 2.5 Mg NEB PRN Q4HRS PRN 12/26/14 Rx Aspirin 325 Mg Tablet 1 Tab PO DAILY 01/25/14 Reported Impression . FULL NOTE DICTATED RESP STATUS IS COMPENSATED OK TO PROCEED WITH SURGERY EARL MARTINEZ MD Jun 08, 2018 15:36
[2018-06-08] MEDS: ASPIRIN 325 MG TABLET PO SCH (16:39)
[2018-06-08] MEDS: FUROSEMIDE 40 MG TABLET. PO SCH (16:40)
[2018-06-08] MEDS: METOPROLOL SUCC 24HR ER 100 MG TAB.ER.24H. PO SCH (16:40)
[2018-06-08] MEDS: LISINOPRIL 20 MG TABLET PO SCH (16:40)
[2018-06-08] MEDS: AMIODARONE HCL 200 MG TABLET. PO SCH (16:40)
[2018-06-08] MEDS: hydrOXYzine PAMOATE 25 MG CAPSULE PO SCH (16:49)
[2018-06-08] MEDS ORDERED: predniSONE 20 MG TABLET PO ONE ×2 (18:00→22:00)
[2018-06-08 18:52] VITALS: BP 138/63
--- NOTE | 2018-06-08 19:54 | RAD ---
EXAM: Carotid Doppler sonogram. HISTORY: Preoperative evaluation. Stenosis. TECHNIQUE: Ly scale and color Doppler sonographic evaluation of the neck with spectral waveform analysis was performed and static images are submitted for review. FINDINGS: There is intimal thickening involving the common carotid arteries and mild atherosclerotic plaque involving the left carotid bulb and proximal internal and external carotid arteries. The peak systolic velocity within the right common carotid artery is 62 cm/sec. The peak systolic velocity within the right internal carotid artery is 146 cm/sec and the end diastolic velocity within the right internal carotid artery is 32 cm/sec. The right ICA/CCA ratio is 2.4. The peak systolic velocity within the left common carotid artery is 63 cm/sec. The peak systolic velocity within the left internal carotid artery is 112 cm/sec and the end diastolic velocity within the left internal carotid artery is 25 cm/sec. The left ICA/CCA ratio is 1.8. There is normal antegrade flow within both vertebral arteries. There is an elevated peak systolic velocity within the left external carotid artery, measuring 244 cm/s. IMPRESSION: 1. Elevated peak systolic velocity within the right ICA and elevated right ICA to CCA ratio, suggesting 50-69 percent stenosis. 2. Elevated peak systolic velocity within the left ECA, suggesting hemodynamically significant stenosis. PQRS Compliance Statement - Stenosis calculations for CT, MR and conventional angiography are based upon measurement of the distal ICA diameter in accordance with the NASCET methodology. Stenosis calculations for carotid ultrasound studies are derived from validated velocity criteria which are known to correlate with the NASCET methodology. Electronically signed by: Reina Diaz MD (06/08/2018 7:51 PM) [id number]
[2018-06-08] MEDS ORDERED: NON FORMULARY ITEM (Budesonide/Formoterol Fumarate (Symbicort 160-4.5 Mcg Inhaler) 2 PUFF) IH SCH (21:00)
[2018-06-08] MEDS: ATORVASTATIN CALCIUM 40 MG TABLET. PO SCH (21:12)
[2018-06-08] MEDS: INSULIN GLARGINE 300 UNITS/3 ML INSULN.PEN. SQ SCH (21:15)
[2018-06-08 22:17] VITALS: BP 126/60
[2018-06-09 02:31] VITALS: BP 113/61
[2018-06-09 04:53] LABS: CREATININE 4.2 mg/dL (0.6-1.0); GFR 12.5; POTASSIUM 4.5 mmol/L (3.5-5.1)
[2018-06-09 05:00] LABS: BASO % 0 % (0-3); EOS % 0 % (0-3); HEMATOCRIT 38.5 % (36.0-47.0); HEMOGLOBIN 12.1 g/dL (12.0-15.5); LYMPH # 0.2 x10^3/uL (1.0-4.8); LYMPH % 6 % (24-48); MEAN CORPUSCULAR HEMOGLOBIN 32 pg (25-35); MEAN CORPUSCULAR HGB CONC 32 g/dL (31-37); MEAN CORPUSCULAR VOLUME 100 fL (79-100); MONO # 0.1 x10^3/uL (0.0-1.1); MONO % 3 % (0-9); NEUT # 3.1 x10^3uL (1.8-7.7); NEUT % 91 % (31-73); PLATELET COUNT 224 x10^3/uL (140-400); RED BLOOD COUNT 3.84 x10^6/uL (3.50-5.40); RED CELL DISTRIBUTION WIDTH 15.3 % (11.5-14.5); WHITE BLOOD COUNT 3.4 x10^3/uL (4.0-11.0)
[2018-06-09] MEDS ORDERED: predniSONE 20 MG TABLET PO ONE (06:00)
[2018-06-09 07:00] VITALS: BP 129/59
[2018-06-09] MEDS: BUDESONIDE 0.5 MG/2 ML NEBU. NEB SCH ×2 (08:11→18:48)
[2018-06-09] MEDS: ALBUTEROL SULFATE 2.5 MG/3 ML NEBU. NEB SCH ×4 (08:11→18:48)
[2018-06-09] MEDS ORDERED: IOHEXOL 350 MG/ML 100 ML VIAL. IV ONE (09:00)
[2018-06-09] MEDS ORDERED: CONTRAST GIVEN. MC PRN (09:00)
[2018-06-09] MEDS: ASPIRIN 325 MG TABLET PO SCH (09:04)
[2018-06-09] MEDS: FUROSEMIDE 40 MG TABLET. PO SCH (09:04)
[2018-06-09] MEDS: METOPROLOL SUCC 24HR ER 100 MG TAB.ER.24H. PO SCH (09:04)
[2018-06-09] MEDS: AMIODARONE HCL 200 MG TABLET. PO SCH (09:04)
[2018-06-09] MEDS: LISINOPRIL 20 MG TABLET PO SCH (09:04)
--- NOTE | 2018-06-09 09:35 | RAD ---
CTA OF THE ABDOMEN AND PELVIS WITH IV CONTRAST. History: Epigastric pain and diarrhea and abdominal aortic aneurysm Comparison: June 16, 2016 CT without contrast. Procedure: Contiguous axial images of the abdomen and pelvis were performed after the administration of 90 cc of Omni 350 IV contrast and without oral contrast. Timing is appropriate for arterial evaluation and multiplanar reconstruction was performed on a separate imaging workstation including 3-D maximum intensity projected imaging as well as 3-D arterial surface rendering. CTA Abdomen with contrast: Findings: The heart is moderately dilated. There are mild pleural effusions. Evaluation of the solid organs is limited without IV contrast. There is contrast in the colon from a previous CT examination. There is an fusiform infrarenal abdominal aortic aneurysm which measures as great as 4.6 x 3.4 cm and is unchanged. The celiac axis and SMA are patent. 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 The distal aorta has a normal caliber. There is normal caliber at the level the renal arteries and above. There is a small chronic dissection in the distal abdominal aorta. Evaluation of solid organs is limited by arterial phase imaging. Liver: Unremarkable Spleen: Unremarkable Pancreas: Unremarkable Adrenal Glands: Thickening of the adrenals left worse than right were seen previously. Kidneys: Atrophic. There are multiple nonobstructive stones in the right renal pelvis. The left renal artery is not well seen. There is no mass or lymphadenopathy. There is no free air. There is no free fluid. CT Pelvis with Contrast: Findings: The urinary bladder is collapsed and not well evaluated. There is a stent in the left common iliac artery which appears patent. There is moderate wall thickening of the sigmoid colon without surrounding inflammation. The appendix is not identified. There is a trace of free fluid. There is no lymphadenopathy. Impression: 1. Moderate wall thickening of the sigmoid colon without surrounding inflammation. This could be infectious colitis such as pseudomembranous colitis or could be inflammatory colitis such as ulcerative colitis. There is no diverticulitis. There is no air in the wall to suggest ischemic colitis. 2. Trace of ascites in the pelvis. 3. Moderately dilated cardiomegaly and mild pleural effusions. 4. Significant atherosclerotic disease with a fusiform infrarenal abdominal aortic aneurysm which has crescentic thrombus. There is a normal caliber at the level the renal arteries and at the bifurcation. There is a small chronic dissection in the distal abdominal aorta. There is a stent in the left common iliac artery which appears patent. Direct comparison to prior studies difficult due to the lack of IV contrast in the prior study however the abdominal aorta appears unchanged in size. 5. 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 PQRS Compliance Statement: One or more of the following individualized dose reduction techniques were utilized for this examination: 1. Automated exposure control 2. Adjustment of the mA and/or kV according to patient size 3. Use of iterative reconstruction technique Electronically signed by: Mando Brennan III, MD (06/09/2018 9:31 AM) [facility]
--- NOTE | 2018-06-09 10:29 | CONS ---
DATE OF CONSULTATION: 06/08/2018 ATTENDING PHYSICIAN: Jemma Everett DO. CONSULTING PHYSICIAN: Earl Martinez M.D. REASON FOR CONSULTATION: The patient is seen in Pulmonary consultation at the request of Dr. Everett for chronic respiratory failure. HISTORY OF PRESENT ILLNESS: The patient is a 72-year-old who was being evaluated as an outpatient for some GI discomfort and diarrhea and loose stools. She underwent a CT abdomen and pelvis. Apparently, she had an abdominal aortic aneurysm measuring 6 cm. She was informed to come to the Emergency Room. She was admitted. I was asked to see her in consultation. She has a history of chronic respiratory failure, on 3 liters of oxygen supplementation at rest and 5 with exertion. She has underlying COPD. PAST MEDICAL HISTORY: 1. Chronic respiratory failure, COPD, chronically on 3 liters with rest and 5 with exertion. 2. Coronary artery disease. 3. Type 2 diabetes. 4. History of deep venous thrombosis. 5. Hyperlipidemia. 6. Hypertension. 7. Chronic renal failure, on hemodialysis. 8. Tobacco dependence, in remission. 9. Obstructive sleep apnea, on home CPAP. PAST SURGICAL HISTORY: Status post dialysis catheter angioplasty in the past. She has had cardiac stenting, rotator cuff surgery and cataract removal. ALLERGIES: CONTRAST DYE. REVIEW OF SYSTEMS: CONSTITUTIONAL: No fever or chills. EYES: No change in visual acuity. HENT: No nasal congestion or sore throat. PULMONARY: As indicated above. CARDIOVASCULAR: As indicated above. GASTROINTESTINAL: As indicated above. GENITOURINARY: No dysuria or frequency. MUSCULOSKELETAL: No localized muscle aches or joint pains. SKIN: No new skin lesions. NEUROLOGIC: No headaches, diplopia or blurred vision. MEDICATIONS: Medication list was reviewed. SOCIAL HISTORY: She is currently not smoking. PHYSICAL EXAMINATION: GENERAL: On exam, the patient was in no respiratory distress, seen doing dialysis, on 3 L of oxygen supplementation, saturation above 92%. HEENT: Eyes, the sclerae were nonicteric. NECK: Jugular venous distention was not elevated. No lymphadenopathy. CHEST: Full expansion. LUNGS: Adequate airway flow, with no wheezes. CARDIOVASCULAR EXAMINATION: Regular rate and rhythm with S1, S2. No S3. ABDOMEN: Soft, nontender and nondistended. EXTREMITIES: No clubbing, cyanosis or edema. NEUROLOGIC: The patient was awake, alert, following commands. A detailed neuro exam was not performed. IMPRESSION: 1. Chronic respiratory failure. Respiratory status appears to be compensated. Continue oxygen supplementation. 2. 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 3. Coronary artery disease, status post previous cardiac catheterization and stent placement. 4. Recent CT revealing abdominal aortic aneurysm measuring 6 cm; the patient to be seen by cardiovascular surgeon. 5. Renal failure, on hemodialysis. PLAN: Respiratory status is compensated. We will follow the patient closely. I have reviewed Cardiovascular consult. The patient will undergo CT angiogram of the abdomen and pelvis for stent graft protocol. Respiratory status is compensated enough to undergo surgical intervention. I do appreciate the privilege in sharing in the patient's care. EARL MARTINEZ MD DR: EUSEBIO/nts JOB#: [id number] / [id number]
[2018-06-09 11:00] VITALS: BP 131/75
--- NOTE | 2018-06-09 11:51 | PDOC ---
PROGRESS NOTES Chief Complaint Chief Complaint Abdominal aortic aneurysm Vasculopathy CAD s/p cardiac cath with stents CHF COPD Diabetes Hypertension, Hyperlipidemia End-stage renal disease, on dialysis Rotator cuff surgery History of Present Illness History of Present Illness Patient was seen and examined in her room this morning. She was sitting up in bed. Vascular surgery and IR following. Plan is to repair AAA with endovascular stent graft on Monday. Patient is agreeable to the procedure. She is complaining of some shoulder pain. Dr. Engel consulted. She will receive dialysis on Monday. Discussed with RN. Vitals Vitals Vital Signs Date Time Temp Pulse Resp B/P (MAP) Pulse Ox O2 Delivery O2 Flow Rate FiO2 06/09/18 09:05 56 129/59 06/09/18 08:11 93 Room Air 06/09/18 07:12 3.0 06/09/18 07:00 97.7 18 97.7 Physical Exam General: Alert, Oriented X3 Heart: Regular rate Lungs: Clear, Wheezing, Crackles Abdomen: Normal bowel sounds, Soft, No tenderness, Other (obese, healed midline scar below umbilicus) Skin: No rashes, No breakdown, No significant lesion Labs LABS Laboratory Tests Test 06/08/18 12:09 06/08/18 16:52 06/08/18 20:30 06/09/18 04:00 Glucose (Fingerstick) 67 mg/dL (70-99) 64 mg/dL (70-99) 261 mg/dL (70-99) White Blood Count 3.4 x10^3/uL (4.0-11.0) Red Blood Count 3.84 x10^6/uL (3.50-5.40) Hemoglobin 12.1 g/dL (12.0-15.5) Hematocrit 38.5 % (36.0-47.0) Mean Corpuscular Volume 100 fL (79-100) Mean Corpuscular Hemoglobin 32 pg (25-35) Mean Corpuscular Hemoglobin Concent 32 g/dL (31-37) Red Cell Distribution Width 15.3 % (11.5-14.5) Platelet Count 224 x10^3/uL (140-400) Neutrophils (%) (Auto) 91 % (31-73) Lymphocytes (%) (Auto) 6 % (24-48) Monocytes (%) (Auto) 3 % (0-9) Eosinophils (%) (Auto) 0 % (0-3) Basophils (%) (Auto) 0 % (0-3) Neutrophils # (Auto) 3.1 x10^3uL (1.8-7.7) Lymphocytes # (Auto) 0.2 x10^3/uL (1.0-4.8) Monocytes # (Auto) 0.1 x10^3/uL (0.0-1.1) Eosinophils # (Auto) 0.0 x10^3/uL (0.0-0.7) Basophils # (Auto) 0.0 x10^3/uL (0.0-0.2) Sodium Level 139 mmol/L (136-145) Potassium Level 4.5 mmol/L (3.5-5.1) Chloride Level 105 mmol/L (98-107) Carbon Dioxide Level 25 mmol/L (21-32) Anion Gap 9 (6-14) Blood Urea Nitrogen 16 mg/dL (7-20) Creatinine 4.2 mg/dL (0.6-1.0) Estimated GFR (Cockcroft-Gault) 12.5 Glucose Level 173 mg/dL (70-99) Calcium Level 8.0 mg/dL (8.5-10.1) Test 06/09/18 07:26 06/09/18 11:20 Glucose (Fingerstick) 141 mg/dL (70-99) 323 mg/dL (70-99) Review of Systems Review of Systems Complains of abdominal pain and weakness. Denies headache or chest pain. Assessment and Plan Assessmemt and Plan Assessment: Abdominal aortic aneurysm Vasculopathy CAD s/p cardiac cath with stents CHF COPD Diabetes Hypertension, Hyperlipidemia End-stage renal disease, on dialysis Rotator cuff surgery Plan: 1. Cardiac monitoring 2. Probably endovascular stent graft to repair AAA planned for Monday 3. Hemodialysis on 4. Oxygen via nasal cannula 5. Consult Dr. Engel for shoulder pain 6. Monitor labs 7. Home meds 8. PT/OT 9. Appreciate subspecialty input Comment Review of Relevant I have reviewed the following items mykle (where applicable) has been applied. Labs Laboratory Tests Test 06/07/18 19:50 06/08/18 07:00 06/08/18 07:51 06/08/18 10:26 White Blood Count 4.8 x10^3/uL (4.0-11.0) 4.4 x10^3/uL (4.0-11.0) Red Blood Count 3.91 x10^6/uL (3.50-5.40) 4.05 x10^6/uL (3.50-5.40) Hemoglobin 12.2 g/dL (12.0-15.5) 13.0 g/dL (12.0-15.5) Hematocrit 39.3 % (36.0-47.0) 41.7 % (36.0-47.0) Mean Corpuscular Volume 100 fL (79-100) 103 fL (79-100) Mean Corpuscular Hemoglobin 31 pg (25-35) 32 pg (25-35) Mean Corpuscular Hemoglobin Concent 31 g/dL (31-37) 31 g/dL (31-37) Red Cell Distribution Width 15.8 % (11.5-14.5) 16.3 % (11.5-14.5) Platelet Count 232 x10^3/uL (140-400) 256 x10^3/uL (140-400) Neutrophils (%) (Auto) 69 % (31-73) 69 % (31-73) Lymphocytes (%) (Auto) 16 % (24-48) 16 % (24-48) Monocytes (%) (Auto) 13 % (0-9) 14 % (0-9) Eosinophils (%) (Auto) 2 % (0-3) 2 % (0-3) Basophils (%) (Auto) 1 % (0-3) 0 % (0-3) Neutrophils # (Auto) 3.3 x10^3uL (1.8-7.7) 3.1 x10^3uL (1.8-7.7) Lymphocytes # (Auto) 0.7 x10^3/uL (1.0-4.8) 0.7 x10^3/uL (1.0-4.8) Monocytes # (Auto) 0.6 x10^3/uL (0.0-1.1) 0.6 x10^3/uL (0.0-1.1) Eosinophils # (Auto) 0.1 x10^3/uL (0.0-0.7) 0.1 x10^3/uL (0.0-0.7) Basophils # (Auto) 0.0 x10^3/uL (0.0-0.2) 0.0 x10^3/uL (0.0-0.2) Sodium Level 143 mmol/L (136-145) 144 mmol/L (136-145) Potassium Level 3.8 mmol/L (3.5-5.1) 4.2 mmol/L (3.5-5.1) Chloride Level 107 mmol/L (98-107) 107 mmol/L (98-107) Carbon Dioxide Level 25 mmol/L (21-32) 25 mmol/L (21-32) Anion Gap 11 (6-14) 12 (6-14) Blood Urea Nitrogen 18 mg/dL (7-20) 21 mg/dL (7-20) Creatinine 5.9 mg/dL (0.6-1.0) 6.7 mg/dL (0.6-1.0) Estimated GFR (Cockcroft-Gault) 8.5 7.3 Glucose Level 106 mg/dL (70-99) 81 mg/dL (70-99) Calcium Level 8.2 mg/dL (8.5-10.1) 7.9 mg/dL (8.5-10.1) Glucose (Fingerstick) 85 mg/dL (70-99) Test 06/08/18 12:09 06/08/18 16:52 06/08/18 20:30 06/09/18 04:00 Glucose (Fingerstick) 67 mg/dL (70-99) 64 mg/dL (70-99) 261 mg/dL (70-99) White Blood Count 3.4 x10^3/uL (4.0-11.0) Red Blood Count 3.84 x10^6/uL (3.50-5.40) Hemoglobin 12.1 g/dL (12.0-15.5) Hematocrit 38.5 % (36.0-47.0) Mean Corpuscular Volume 100 fL (79-100) Mean Corpuscular Hemoglobin 32 pg (25-35) Mean Corpuscular Hemoglobin Concent 32 g/dL (31-37) Red Cell Distribution Width 15.3 % (11.5-14.5) Platelet Count 224 x10^3/uL (140-400) Neutrophils (%) (Auto) 91 % (31-73) Lymphocytes (%) (Auto) 6 % (24-48) Monocytes (%) (Auto) 3 % (0-9) Eosinophils (%) (Auto) 0 % (0-3) Basophils (%) (Auto) 0 % (0-3) Neutrophils # (Auto) 3.1 x10^3uL (1.8-7.7) Lymphocytes # (Auto) 0.2 x10^3/uL (1.0-4.8) Monocytes # (Auto) 0.1 x10^3/uL (0.0-1.1) Eosinophils # (Auto) 0.0 x10^3/uL (0.0-0.7) Basophils # (Auto) 0.0 x10^3/uL (0.0-0.2) Sodium Level 139 mmol/L (136-145) Potassium Level 4.5 mmol/L (3.5-5.1) Chloride Level 105 mmol/L (98-107) Carbon Dioxide Level 25 mmol/L (21-32) Anion Gap 9 (6-14) Blood Urea Nitrogen 16 mg/dL (7-20) Creatinine 4.2 mg/dL (0.6-1.0) Estimated GFR (Cockcroft-Gault) 12.5 Glucose Level 173 mg/dL (70-99) Calcium Level 8.0 mg/dL (8.5-10.1) Test 06/09/18 07:26 06/09/18 11:20 Glucose (Fingerstick) 141 mg/dL (70-99) 323 mg/dL (70-99) Laboratory Tests Test 06/08/18 12:09 06/08/18 16:52 06/08/18 20:30 06/09/18 04:00 Glucose (Fingerstick) 67 mg/dL (70-99) 64 mg/dL (70-99) 261 mg/dL (70-99) White Blood Count 3.4 x10^3/uL (4.0-11.0) Red Blood Count 3.84 x10^6/uL (3.50-5.40) Hemoglobin 12.1 g/dL (12.0-15.5) Hematocrit 38.5 % (36.0-47.0) Mean Corpuscular Volume 100 fL (79-100) Mean Corpuscular Hemoglobin 32 pg (25-35) Mean Corpuscular Hemoglobin Concent 32 g/dL (31-37) Red Cell Distribution Width 15.3 % (11.5-14.5) Platelet Count 224 x10^3/uL (140-400) Neutrophils (%) (Auto) 91 % (31-73) Lymphocytes (%) (Auto) 6 % (24-48) Monocytes (%) (Auto) 3 % (0-9) Eosinophils (%) (Auto) 0 % (0-3) Basophils (%) (Auto) 0 % (0-3) Neutrophils # (Auto) 3.1 x10^3uL (1.8-7.7) Lymphocytes # (Auto) 0.2 x10^3/uL (1.0-4.8) Monocytes # (Auto) 0.1 x10^3/uL (0.0-1.1) Eosinophils # (Auto) 0.0 x10^3/uL (0.0-0.7) Basophils # (Auto) 0.0 x10^3/uL (0.0-0.2) Sodium Level 139 mmol/L (136-145) Potassium Level 4.5 mmol/L (3.5-5.1) Chloride Level 105 mmol/L (98-107) Carbon Dioxide Level 25 mmol/L (21-32) Anion Gap 9 (6-14) Blood Urea Nitrogen 16 mg/dL (7-20) Creatinine 4.2 mg/dL (0.6-1.0) Estimated GFR (Cockcroft-Gault) 12.5 Glucose Level 173 mg/dL (70-99) Calcium Level 8.0 mg/dL (8.5-10.1) Test 06/09/18 07:26 06/09/18 11:20 Glucose (Fingerstick) 141 mg/dL (70-99) 323 mg/dL (70-99) Medications Current Medications Sodium Chloride 1,000 ml @ 100 mls/hr Q10H IV Last administered on 06/07/18at 19:56; Start 06/07/18 at 19:18; Stop 06/08/18 at 05:17; Status DC Ondansetron HCl (Zofran) 4 mg PRN Q8HRS PRN IV NAUSEA/VOMITING 1ST CHOICE; Start 06/07/18 at 21:00; Stop 06/08/18 at 20:59; Status DC Morphine Sulfate (Morphine Sulfate) 2 mg PRN Q2HR PRN IV SEVERE PAIN; Start at 21:00; Stop 06/08/18 at 06:39; Status DC Morphine Sulfate (Morphine Sulfate) 2 mg PRN Q2HR PRN IV SEVERE PAIN; Start 06/08/18 at 06:39; Stop 06/08/18 at 20:59; Status DC Amiodarone HCl (Cordarone) 200 mg DAILY PO Last administered on 06/09/18 09:04 ; Start 06/08/18 at 12:00 Apixaban (Eliquis) 5 mg BID PO ; Start 06/08/18 at 12:00; Stop 06/08/18 at 15:30; Status DC Aspirin (Hung Aspirin) 325 mg DAILY PO Last administered on 06/09/18at 09:04; Start 06/08/18 at 12:00 Atorvastatin Calcium (Lipitor) 40 mg HS PO Last administered on 06/08/18at 21:12 ; Start 06/08/18 at 21:00 Furosemide (Lasix) 40 mg DAILY PO Last administered on 06/09/18at 09:04; Start at 12:00 Acetaminophen/ Hydrocodone Bitart (Lortab 5/325) 1 tab PRN Q6HRS PRN PO back pain ; Start 06/08/18 at 11:30 Insulin Glargine (Lantus) 30 units QHS SQ Last administered on 06/08/18at 21:15; Start 06/08/18 at 21:00 Lisinopril (Prinivil) 20 mg DAILY PO Last administered on 06/09/18at 09:04; Start 06/08/18 at 12:00 Metoprolol Succinate (Toprol Xl) 100 mg DAILY PO Last administered on 06/09/18 09:04; Start 06/08/18 at 12:00 Non-Formulary Medication (Budesonide/ Formoterol Fumarate (Symbicort 160-4.5 Mcg Inhaler)) 2 puff BID IH ; Start 06/08/18 at 21:00; Status UNV Diltiazem HCl (Cardizem 24hr Cd) 180 mg DAILY PO Last administered on 06/09/18at 09:05; Start 06/08/18 at 12:00 Hydroxyzine Pamoate (Vistaril) 50 mg QMWF PO Last administered on 06/08/18at 16: 49; Start 06/08/18 at 16:00 Non-Formulary Medication ([Albuterol Sulfate] ) 2.5 mg PRN Q4HRS PRN NEB SHORTNESS OF BREATH; Start 06/08/18 at 11:30; Status UNV Budesonide (Pulmicort) 0.5 mg RTBID NEB Last administered on 06/09/18at 08:11; Start 06/08/18 at 12:00 Albuterol Sulfate (Ventolin Neb Soln) 2.5 mg RTQID NEB Last administered on 06/09at 08:11; Start 06/08/18 at 12:00 Albuterol Sulfate (Ventolin Neb Soln) 2.5 mg PRN Q4HRS PRN NEB SHORTNESS OF BREATH; Start 06/08/18 at 11:30 Sodium Chloride 1,000 ml @ 1,000 mls/hr Q1H PRN IV hypotension; Start 06/08/18 at 12:22; Stop 06/08/18 at 18:21; Status DC Diphenhydramine HCl (Benadryl) 25 mg 1X PRN PRN IV ITCHING; Start 06/08/18 at 12 :30; Stop 06/09/18 at 12:29 Diphenhydramine HCl (Benadryl) 25 mg 1X PRN PRN IV ITCHING; Start 06/08/18 at 12 :30; Stop 06/09/18 at 12:29 Sodium Chloride 1,000 ml @ 400 mls/hr Q2H30M PRN IV PATENCY; Start 06/08/18 at 12:22; Stop 06/09/18 at 00:21; Status DC Info (PHARMACY MONITORING -- do not chart) 1 each PRN DAILY PRN MC SEE COMMENTS ; Start 06/08/18 at 12:30 Prednisone (Prednisone) 20 mg 1X ONCE PO Last administered on 06/08/18at 18:04; Start 06/08/18 at 18:00; Stop 06/08/18 at 18:01; Status DC Prednisone (Prednisone) 20 mg 1X ONCE PO Last administered on 06/08/18at 21:12; Start 06/08/18 at 22:00; Stop 06/08/18 at 22:01; Status DC Prednisone (Prednisone) 20 mg 1X ONCE PO Last administered on 06/09/18at 06:15; Start 06/09/18 at 06:00; Stop 06/09/18 at 06:01; Status DC Diphenhydramine HCl (Benadryl) 50 mg PRN 1X PRN PO COMMENTS Last administered on 06/09/18at 08:04; Start 06/08/18 at 14:45; Stop 06/09/18 at 14:44 Enoxaparin Sodium (Lovenox Per Pharmacy Treatment Dosing) 1 each PRN DAILY PRN MC SEE COMMENTS; Start 06/08/18 at 15:30; Status Cancel Iohexol (Omnipaque 350 Mg/ml) 90 ml 1X ONCE IV Last administered on 06/09/18at 08:56; Start 06/09/18 at 09:00; Stop 06/09/18 at 09:01; Status DC Info (CONTRAST GIVEN -- Rx MONITORING) 1 each PRN DAILY PRN MC SEE COMMENTS; Start 06/09/18 at 09:00; Stop 06/11/18 at 08:59 Active Scripts Active Amiodarone Hcl 200 Mg Tablet 200 Mg PO DAILY MDD 1 Eliquis (Apixaban) 5 Mg Tablet 5 Mg PO BID MDD ` [Albuterol Sulfate] 2.5 MG/3 ML Nebu 2.5 Mg NEB PRN Q4HRS PRN Reported Diltiazem 24HR Cd (Diltiazem Hcl) 180 Mg Cap.er.24h 180 Mg PO DAILY Lipitor (Atorvastatin Calcium) 40 Mg Tablet 40 Mg PO HS Hydrocodone-Acetamin 5-325 mg (Hydrocodone/Acetaminophen) 1 Each Tablet 1 Each PO PRN Q6HRS PRN Furosemide 40 Mg Tablet 40 Mg PO DAILY Symbicort 160-4.5 Mcg Inhaler (Budesonide/Formoterol Fumarate) 10.2 Gm Hfa.aer.ad 2 Puff IH BID Toprol Xl (Metoprolol Succinate) 100 Mg Tab.er.24h 100 Mg PO DAILY Proair Hfa Inhaler (Albuterol Sulfate) 8.5 Gm Hfa.aer.ad 1 Puff INH PRN Q6HRS PRN Marina-Jayme Tablet (Folic Acid/Vitamin B Comp W-C) 0.8 Mg Tablet 0.8 Mg PO DAILY Hydroxyzine Hcl 25 Mg Tablet 50 Mg PO QMWF Lisinopril 20 Mg Tablet 1 Tab PO DAILY Lantus Solostar (Insulin Glargine,Hum.rec.anlog) 100 Unit/1 Ml Insuln.pen 30 Unit SQ QHS Aspirin 325 Mg Tablet 1 Tab PO DAILY Vitals/I & O Vital Sign - Last 24 Hours 06/08/18 06/08/18 06/08/18 06/08/18 13:37 16:39 16:40 16:40 Pulse 83 83 83 B/P (MAP) 157/70 157/70 157/70 O2 Delivery Nasal Cannula O2 Flow Rate 3.0 06/08/18 06/08/18 06/08/18 06/08/18 16:40 17:31 18:52 21:00 Temp 97.8 97.8 Pulse 83 79 B/P (MAP) 157/70 138/63 (88) Pulse Ox 98 O2 Delivery Nasal Cannula Nasal Cannula O2 Flow Rate 3.0 3.0 06/08/18 06/08/18 06/09/18 06/09/18 21:22 22:17 02:31 07:00 Temp 98.0 97.8 97.7 98.0 97.8 97.7 Pulse 65 60 56 Resp 18 18 18 B/P (MAP) 126/60 (82) 113/61 (78) 129/59 (82) Pulse Ox 98 98 98 97 O2 Delivery Nasal Cannula Room Air Room Air Room Air O2 Flow Rate 3.0 06/09/18 06/09/18 06/09/18 06/09/18 07:12 08:11 09:04 09:04 Pulse 56 56 B/P (MAP) 129/59 129/59 Pulse Ox 93 O2 Delivery Nasal Cannula Room Air O2 Flow Rate 3.0 06/09/18 06/09/18 09:04 09:05 Pulse 56 56 B/P (MAP) 129/59 129/59 Intake and Output 06/08/18 06/08/18 06/09/18 14:59 22:59 06:59 Intake Total 250 ml Balance 250 ml YULIA DE ANDA III DO Jun 09, 2018 11:51
[2018-06-09] MEDS: DICLOFENAC SODIUM 1% TOPICAL GEL 100GM TUBE. TP SCH ×2 (13:27→21:00)
--- NOTE | 2018-06-09 13:35 | PDOC ---
Provider Note Provider Note no complaints AF VSS awake and alert abdomen soft, nondistended, nontender bilateral lower extremities warm with palpable femoral and DP pulses bilateral, no tissue breakdown, no swelling CTA reviewed showing 5.9cm AAA A/P 72 year old female with an asymptomatic 5.9cm AAA - Reviewing CTA with Dr. Douglass for likely endovascular stent graft repair, surgery scheduled monday if cleared from medicine/cardiology/pulmonary - moderate carotid stenosis, recommend aspirin daily, repeat duplex in 6 months - eliquis no hold for aneurysm surgery - ESRD on dialysis, nephrology following MARCIA THORNTON MD Jun 09, 2018 13:35
--- NOTE | 2018-06-09 13:40 | PDOC2 ---
CONSULT Date of Consult Date of Consult DATE: 06/09/18 TIME: 13:33 Reason for Consult Reason for Consult: History of CAD and an AAA Referring Physician Referring Physician: Dr. Everett Identification/Chief Complaint Chief Complaint Abdominal discomfort. Source Source: Chart review, Patient History of Present Illness Reason for Visit: The patient is a 72-year-old female with extensive medical history who was referred to the emergency room after an outpatient CT scan showed a reported 6 cm abdominal aortic aneurysm. Patient's clinical complaints have been diarrhea and mild abdominal discomfort. She is been evaluated in vascular surgery has been consulted for treatment of her AAA. The patient has an extensive medical history. From a cardiac viewpoint the patient had a stent placed to the right coronary artery in 2013. A recent MPI test in August 2017 was normal with no ischemia or infarct. A transesophageal echo prior to cardioversion 3 months ago again showed normal LV systolic function. The patient at the present time is resting comfortably in bed. Other significant problems are end-stage renal disease with hemodialysis and severe COPD requiring home oxygen. Past Medical History Cardiovascular: AFIB, CAD, CHF, HTN, Hyperlipidemia, Other Pulmonary: Asthma, COPD (home O2 3L/NC ), Other CENTRAL NERVOUS SYSTEM: Other GI: Diverticulosis Heme/Onc: Anemia NOS Psych: Anxiety Rheumatologic: No pertinent hx Infectious disease: No pertinent hx Renal/: Chronic renal failure (on dialysis) Endocrine: Diabetes, Hyperparathyroidism Past Surgical History Past Surgical History: Appendectomy, Arthroscopy, Cataract Removal, Other ( coronary stenting, AV graft.) Family History Family History: Coronary Artery Disease, Diabetes, Hypertension Social History No ALCOHOL: none Drugs: None Lives: with Family Domestic Violence: Neg Current Medications Current Medications Current Medications Sodium Chloride 1,000 ml @ 100 mls/hr Q10H IV Last administered on 06/07/18at 19:56; Start 06/07/18 at 19:18; Stop 06/08/18 at 05:17; Status DC Ondansetron HCl (Zofran) 4 mg PRN Q8HRS PRN IV NAUSEA/VOMITING 1ST CHOICE; Start 06/07/18 at 21:00; Stop 06/08/18 at 20:59; Status DC Morphine Sulfate (Morphine Sulfate) 2 mg PRN Q2HR PRN IV SEVERE PAIN; Start at 21:00; Stop 06/08/18 at 06:39; Status DC Morphine Sulfate (Morphine Sulfate) 2 mg PRN Q2HR PRN IV SEVERE PAIN; Start 06/08/18 at 06:39; Stop 06/08/18 at 20:59; Status DC Amiodarone HCl (Cordarone) 200 mg DAILY PO Last administered on 06/09/18 09:04 ; Start 06/08/18 at 12:00 Apixaban (Eliquis) 5 mg BID PO ; Start 06/08/18 at 12:00; Stop 06/08/18 at 15:30; Status DC Aspirin (Hung Aspirin) 325 mg DAILY PO Last administered on 06/09/18 09:04; Start 06/08/18 at 12:00 Atorvastatin Calcium (Lipitor) 40 mg HS PO Last administered on 06/08/18at 21:12 ; Start 06/08/18 at 21:00 Furosemide (Lasix) 40 mg DAILY PO Last administered on 06/09/18 09:04; Start at 12:00 Acetaminophen/ Hydrocodone Bitart (Lortab 5/325) 1 tab PRN Q6HRS PRN PO back pain ; Start 06/08/18 at 11:30 Insulin Glargine (Lantus) 30 units QHS SQ Last administered on 06/08/18 21:15; Start 06/08/18 at 21:00 Lisinopril (Prinivil) 20 mg DAILY PO Last administered on 06/09/18 09:04; Start 06/08/18 at 12:00 Metoprolol Succinate (Toprol Xl) 100 mg DAILY PO Last administered on 06/09/18 09:04; Start 06/08/18 at 12:00 Non-Formulary Medication (Budesonide/ Formoterol Fumarate (Symbicort 160-4.5 Mcg Inhaler)) 2 puff BID IH ; Start 06/08/18 at 21:00; Status UNV Diltiazem HCl (Cardizem 24hr Cd) 180 mg DAILY PO Last administered on 06/09/18 09:05; Start 06/08/18 at 12:00 Hydroxyzine Pamoate (Vistaril) 50 mg QMWF PO Last administered on 06/08/18at 16: 49; Start 06/08/18 at 16:00 Non-Formulary Medication ([Albuterol Sulfate] ) 2.5 mg PRN Q4HRS PRN NEB SHORTNESS OF BREATH; Start 06/08/18 at 11:30; Status UNV Budesonide (Pulmicort) 0.5 mg RTBID NEB Last administered on 06/09/18at 08:11; Start 06/08/18 at 12:00 Albuterol Sulfate (Ventolin Neb Soln) 2.5 mg RTQID NEB Last administered on 06/09at 11:49; Start 06/08/18 at 12:00 Albuterol Sulfate (Ventolin Neb Soln) 2.5 mg PRN Q4HRS PRN NEB SHORTNESS OF BREATH; Start 06/08/18 at 11:30 Sodium Chloride 1,000 ml @ 1,000 mls/hr Q1H PRN IV hypotension; Start 06/08/18 at 12:22; Stop 06/08/18 at 18:21; Status DC Diphenhydramine HCl (Benadryl) 25 mg 1X PRN PRN IV ITCHING; Start 06/08/18 at 12 :30; Stop 06/09/18 at 12:29; Status DC Diphenhydramine HCl (Benadryl) 25 mg 1X PRN PRN IV ITCHING; Start 06/08/18 at 12 :30; Stop 06/09/18 at 12:29; Status DC Sodium Chloride 1,000 ml @ 400 mls/hr Q2H30M PRN IV PATENCY; Start 06/08/18 at 12:22; Stop 06/09/18 at 00:21; Status DC Info (PHARMACY MONITORING -- do not chart) 1 each PRN DAILY PRN MC SEE COMMENTS ; Start 06/08/18 at 12:30 Prednisone (Prednisone) 20 mg 1X ONCE PO Last administered on 06/08/18at 18:04; Start 06/08/18 at 18:00; Stop 06/08/18 at 18:01; Status DC Prednisone (Prednisone) 20 mg 1X ONCE PO Last administered on 06/08/18at 21:12; Start 06/08/18 at 22:00; Stop 06/08/18 at 22:01; Status DC Prednisone (Prednisone) 20 mg 1X ONCE PO Last administered on 06/09/18at 06:15; Start 06/09/18 at 06:00; Stop 06/09/18 at 06:01; Status DC Diphenhydramine HCl (Benadryl) 50 mg PRN 1X PRN PO COMMENTS Last administered on 06/09/18at 08:04; Start 06/08/18 at 14:45; Stop 06/09/18 at 14:44 Enoxaparin Sodium (Lovenox Per Pharmacy Treatment Dosing) 1 each PRN DAILY PRN MC SEE COMMENTS; Start 06/08/18 at 15:30; Status Cancel Iohexol (Omnipaque 350 Mg/ml) 90 ml 1X ONCE IV Last administered on 06/09/18at 08:56; Start 06/09/18 at 09:00; Stop 06/09/18 at 09:01; Status DC Info (CONTRAST GIVEN -- Rx MONITORING) 1 each PRN DAILY PRN MC SEE COMMENTS; Start 06/09/18 at 09:00; Stop 06/11/18 at 08:59 Diclofenac Sodium (Voltaren) 1 evgeny BID TP ; Start 06/09/18 at 13:30 Active Scripts Active Amiodarone Hcl 200 Mg Tablet 200 Mg PO DAILY MDD 1 Eliquis (Apixaban) 5 Mg Tablet 5 Mg PO BID MDD ` [Albuterol Sulfate] 2.5 MG/3 ML Nebu 2.5 Mg NEB PRN Q4HRS PRN Reported Diltiazem 24HR Cd (Diltiazem Hcl) 180 Mg Cap.er.24h 180 Mg PO DAILY Lipitor (Atorvastatin Calcium) 40 Mg Tablet 40 Mg PO HS Hydrocodone-Acetamin 5-325 mg (Hydrocodone/Acetaminophen) 1 Each Tablet 1 Each PO PRN Q6HRS PRN Furosemide 40 Mg Tablet 40 Mg PO DAILY Symbicort 160-4.5 Mcg Inhaler (Budesonide/Formoterol Fumarate) 10.2 Gm Hfa.aer.ad 2 Puff IH BID Toprol Xl (Metoprolol Succinate) 100 Mg Tab.er.24h 100 Mg PO DAILY Proair Hfa Inhaler (Albuterol Sulfate) 8.5 Gm Hfa.aer.ad 1 Puff INH PRN Q6HRS PRN Marina-Jayme Tablet (Folic Acid/Vitamin B Comp W-C) 0.8 Mg Tablet 0.8 Mg PO DAILY Hydroxyzine Hcl 25 Mg Tablet 50 Mg PO QMWF Lisinopril 20 Mg Tablet 1 Tab PO DAILY Lantus Solostar (Insulin Glargine,Hum.rec.anlog) 100 Unit/1 Ml Insuln.pen 30 Unit SQ QHS Aspirin 325 Mg Tablet 1 Tab PO DAILY Allergies Allergies: Coded Allergies: Iodinated Contrast- Oral and IV Dye (Verified Allergy, Intermediate, ) ROS Gastrointestinal: Yes Diarrhea Physical Exam General: No acute distress HEENT: Atraumatic Lungs: Clear to auscultation Heart: Regular rate Abdomen: Normal bowel sounds Vitals VITALS Vital Signs Date Time Temp Pulse Resp B/P (MAP) Pulse Ox O2 Delivery O2 Flow Rate FiO2 06/09/18 11:49 Nasal Cannula 2.0 06/09/18 11:00 98.2 54 18 131/75 (93) 94 98.2 Labs Labs Laboratory Tests Test 06/07/18 19:50 06/08/18 07:00 06/08/18 07:51 06/08/18 10:26 White Blood Count 4.8 x10^3/uL (4.0-11.0) 4.4 x10^3/uL (4.0-11.0) Red Blood Count 3.91 x10^6/uL (3.50-5.40) 4.05 x10^6/uL (3.50-5.40) Hemoglobin 12.2 g/dL (12.0-15.5) 13.0 g/dL (12.0-15.5) Hematocrit 39.3 % (36.0-47.0) 41.7 % (36.0-47.0) Mean Corpuscular Volume 100 fL (79-100) 103 fL (79-100) Mean Corpuscular Hemoglobin 31 pg (25-35) 32 pg (25-35) Mean Corpuscular Hemoglobin Concent 31 g/dL (31-37) 31 g/dL (31-37) Red Cell Distribution Width 15.8 % (11.5-14.5) 16.3 % (11.5-14.5) Platelet Count 232 x10^3/uL (140-400) 256 x10^3/uL (140-400) Neutrophils (%) (Auto) 69 % (31-73) 69 % (31-73) Lymphocytes (%) (Auto) 16 % (24-48) 16 % (24-48) Monocytes (%) (Auto) 13 % (0-9) 14 % (0-9) Eosinophils (%) (Auto) 2 % (0-3) 2 % (0-3) Basophils (%) (Auto) 1 % (0-3) 0 % (0-3) Neutrophils # (Auto) 3.3 x10^3uL (1.8-7.7) 3.1 x10^3uL (1.8-7.7) Lymphocytes # (Auto) 0.7 x10^3/uL (1.0-4.8) 0.7 x10^3/uL (1.0-4.8) Monocytes # (Auto) 0.6 x10^3/uL (0.0-1.1) 0.6 x10^3/uL (0.0-1.1) Eosinophils # (Auto) 0.1 x10^3/uL (0.0-0.7) 0.1 x10^3/uL (0.0-0.7) Basophils # (Auto) 0.0 x10^3/uL (0.0-0.2) 0.0 x10^3/uL (0.0-0.2) Sodium Level 143 mmol/L (136-145) 144 mmol/L (136-145) Potassium Level 3.8 mmol/L (3.5-5.1) 4.2 mmol/L (3.5-5.1) Chloride Level 107 mmol/L (98-107) 107 mmol/L (98-107) Carbon Dioxide Level 25 mmol/L (21-32) 25 mmol/L (21-32) Anion Gap 11 (6-14) 12 (6-14) Blood Urea Nitrogen 18 mg/dL (7-20) 21 mg/dL (7-20) Creatinine 5.9 mg/dL (0.6-1.0) 6.7 mg/dL (0.6-1.0) Estimated GFR (Cockcroft-Gault) 8.5 7.3 Glucose Level 106 mg/dL (70-99) 81 mg/dL (70-99) Calcium Level 8.2 mg/dL (8.5-10.1) 7.9 mg/dL (8.5-10.1) Glucose (Fingerstick) 85 mg/dL (70-99) Test 06/08/18 12:09 06/08/18 16:52 06/08/18 20:30 06/09/18 04:00 Glucose (Fingerstick) 67 mg/dL (70-99) 64 mg/dL (70-99) 261 mg/dL (70-99) White Blood Count 3.4 x10^3/uL (4.0-11.0) Red Blood Count 3.84 x10^6/uL (3.50-5.40) Hemoglobin 12.1 g/dL (12.0-15.5) Hematocrit 38.5 % (36.0-47.0) Mean Corpuscular Volume 100 fL (79-100) Mean Corpuscular Hemoglobin 32 pg (25-35) Mean Corpuscular Hemoglobin Concent 32 g/dL (31-37) Red Cell Distribution Width 15.3 % (11.5-14.5) Platelet Count 224 x10^3/uL (140-400) Neutrophils (%) (Auto) 91 % (31-73) Lymphocytes (%) (Auto) 6 % (24-48) Monocytes (%) (Auto) 3 % (0-9) Eosinophils (%) (Auto) 0 % (0-3) Basophils (%) (Auto) 0 % (0-3) Neutrophils # (Auto) 3.1 x10^3uL (1.8-7.7) Lymphocytes # (Auto) 0.2 x10^3/uL (1.0-4.8) Monocytes # (Auto) 0.1 x10^3/uL (0.0-1.1) Eosinophils # (Auto) 0.0 x10^3/uL (0.0-0.7) Basophils # (Auto) 0.0 x10^3/uL (0.0-0.2) Sodium Level 139 mmol/L (136-145) Potassium Level 4.5 mmol/L (3.5-5.1) Chloride Level 105 mmol/L (98-107) Carbon Dioxide Level 25 mmol/L (21-32) Anion Gap 9 (6-14) Blood Urea Nitrogen 16 mg/dL (7-20) Creatinine 4.2 mg/dL (0.6-1.0) Estimated GFR (Cockcroft-Gault) 12.5 Glucose Level 173 mg/dL (70-99) Calcium Level 8.0 mg/dL (8.5-10.1) Test 06/09/18 07:26 06/09/18 11:20 Glucose (Fingerstick) 141 mg/dL (70-99) 323 mg/dL (70-99) Laboratory Tests Test 06/08/18 16:52 06/08/18 20:30 06/09/18 04:00 06/09/18 07:26 Glucose (Fingerstick) 64 mg/dL (70-99) 261 mg/dL (70-99) 141 mg/dL (70-99) White Blood Count 3.4 x10^3/uL (4.0-11.0) Red Blood Count 3.84 x10^6/uL (3.50-5.40) Hemoglobin 12.1 g/dL (12.0-15.5) Hematocrit 38.5 % (36.0-47.0) Mean Corpuscular Volume 100 fL (79-100) Mean Corpuscular Hemoglobin 32 pg (25-35) Mean Corpuscular Hemoglobin Concent 32 g/dL (31-37) Red Cell Distribution Width 15.3 % (11.5-14.5) Platelet Count 224 x10^3/uL (140-400) Neutrophils (%) (Auto) 91 % (31-73) Lymphocytes (%) (Auto) 6 % (24-48) Monocytes (%) (Auto) 3 % (0-9) Eosinophils (%) (Auto) 0 % (0-3) Basophils (%) (Auto) 0 % (0-3) Neutrophils # (Auto) 3.1 x10^3uL (1.8-7.7) Lymphocytes # (Auto) 0.2 x10^3/uL (1.0-4.8) Monocytes # (Auto) 0.1 x10^3/uL (0.0-1.1) Eosinophils # (Auto) 0.0 x10^3/uL (0.0-0.7) Basophils # (Auto) 0.0 x10^3/uL (0.0-0.2) Sodium Level 139 mmol/L (136-145) Potassium Level 4.5 mmol/L (3.5-5.1) Chloride Level 105 mmol/L (98-107) Carbon Dioxide Level 25 mmol/L (21-32) Anion Gap 9 (6-14) Blood Urea Nitrogen 16 mg/dL (7-20) Creatinine 4.2 mg/dL (0.6-1.0) Estimated GFR (Cockcroft-Gault) 12.5 Glucose Level 173 mg/dL (70-99) Calcium Level 8.0 mg/dL (8.5-10.1) Test 06/09/18 11:20 Glucose (Fingerstick) 323 mg/dL (70-99) Images Images CTA pending. Assessment/Plan Assessment/Plan 1. New finding of an abdominal aortic aneurysm. Further imaging is pending. Vascular surgery is reviewing. 2. History of coronary disease with previous stenting in 2013. Nuclear stress test last year was normal. RASHAD 3 months ago showed normal LV systolic function. We'll continue present medications at this time. 3. History of paroxysmal atrial fibrillation. Continue present medications and monitoring. 4. Severe COPD. On home oxygen. Being evaluated by the pulmonary service. 5. End-stage renal disease with hemodialysis as per the renal service. 6. Compensated diastolic heart failure. 7. Statins for hyperlipidemia. 8. We'll adjust medications for hypertension as needed. 9. Diabetes mellitus as per the primary service. Thank you for allowing us to participate in the care of your patient. JAZMYN WELSH MD Jun 09, 2018 13:40
--- NOTE | 2018-06-09 13:55 | RAD ---
PORTABLE CHEST 1V Clinical History: PALPITATIONS Technique: AP view of the chest was obtained at 06/08/2018 4:30 PM. Comparison: March 21, 2018. Findings: The heart is moderately enlarged. The pulmonary vessels appear normal. The lungs are hyperinflated. There is blunting of the left costophrenic angle. Impression: 1. Moderate cardiomegaly. 2. Mild left effusion. No evidence of pulmonary edema. Electronically signed by: Mando Brennan III, MD (06/09/2018 1:52 PM) [facility]
--- NOTE | 2018-06-09 14:41 | PDOC ---
PULMONARY PROGRESS NOTES Subjective PT NOT MORE SOA Vitals Vital Signs Date Time Temp Pulse Resp B/P (MAP) Pulse Ox O2 Delivery O2 Flow Rate FiO2 06/09/18 11:49 Nasal Cannula 2.0 06/09/18 11:00 98.2 54 18 131/75 (93) 94 98.2 ROS: No Nausea, No Chest Pain, No Abdominal Pain General: Alert Lungs: Clear Cardiovascular: S1, S2 Abdomen: Soft, Non-tender, Other Neuro Exam: Alert Extremities: No Edema Skin: Warm Labs Laboratory Tests Test 06/07/18 19:50 06/08/18 07:00 06/08/18 07:51 06/08/18 10:26 White Blood Count 4.8 x10^3/uL (4.0-11.0) 4.4 x10^3/uL (4.0-11.0) Red Blood Count 3.91 x10^6/uL (3.50-5.40) 4.05 x10^6/uL (3.50-5.40) Hemoglobin 12.2 g/dL (12.0-15.5) 13.0 g/dL (12.0-15.5) Hematocrit 39.3 % (36.0-47.0) 41.7 % (36.0-47.0) Mean Corpuscular Volume 100 fL (79-100) 103 fL (79-100) Mean Corpuscular Hemoglobin 31 pg (25-35) 32 pg (25-35) Mean Corpuscular Hemoglobin Concent 31 g/dL (31-37) 31 g/dL (31-37) Red Cell Distribution Width 15.8 % (11.5-14.5) 16.3 % (11.5-14.5) Platelet Count 232 x10^3/uL (140-400) 256 x10^3/uL (140-400) Neutrophils (%) (Auto) 69 % (31-73) 69 % (31-73) Lymphocytes (%) (Auto) 16 % (24-48) 16 % (24-48) Monocytes (%) (Auto) 13 % (0-9) 14 % (0-9) Eosinophils (%) (Auto) 2 % (0-3) 2 % (0-3) Basophils (%) (Auto) 1 % (0-3) 0 % (0-3) Neutrophils # (Auto) 3.3 x10^3uL (1.8-7.7) 3.1 x10^3uL (1.8-7.7) Lymphocytes # (Auto) 0.7 x10^3/uL (1.0-4.8) 0.7 x10^3/uL (1.0-4.8) Monocytes # (Auto) 0.6 x10^3/uL (0.0-1.1) 0.6 x10^3/uL (0.0-1.1) Eosinophils # (Auto) 0.1 x10^3/uL (0.0-0.7) 0.1 x10^3/uL (0.0-0.7) Basophils # (Auto) 0.0 x10^3/uL (0.0-0.2) 0.0 x10^3/uL (0.0-0.2) Sodium Level 143 mmol/L (136-145) 144 mmol/L (136-145) Potassium Level 3.8 mmol/L (3.5-5.1) 4.2 mmol/L (3.5-5.1) Chloride Level 107 mmol/L (98-107) 107 mmol/L (98-107) Carbon Dioxide Level 25 mmol/L (21-32) 25 mmol/L (21-32) Anion Gap 11 (6-14) 12 (6-14) Blood Urea Nitrogen 18 mg/dL (7-20) 21 mg/dL (7-20) Creatinine 5.9 mg/dL (0.6-1.0) 6.7 mg/dL (0.6-1.0) Estimated GFR (Cockcroft-Gault) 8.5 7.3 Glucose Level 106 mg/dL (70-99) 81 mg/dL (70-99) Calcium Level 8.2 mg/dL (8.5-10.1) 7.9 mg/dL (8.5-10.1) Glucose (Fingerstick) 85 mg/dL (70-99) Test 06/08/18 12:09 06/08/18 16:52 06/08/18 20:30 06/09/18 04:00 Glucose (Fingerstick) 67 mg/dL (70-99) 64 mg/dL (70-99) 261 mg/dL (70-99) White Blood Count 3.4 x10^3/uL (4.0-11.0) Red Blood Count 3.84 x10^6/uL (3.50-5.40) Hemoglobin 12.1 g/dL (12.0-15.5) Hematocrit 38.5 % (36.0-47.0) Mean Corpuscular Volume 100 fL (79-100) Mean Corpuscular Hemoglobin 32 pg (25-35) Mean Corpuscular Hemoglobin Concent 32 g/dL (31-37) Red Cell Distribution Width 15.3 % (11.5-14.5) Platelet Count 224 x10^3/uL (140-400) Neutrophils (%) (Auto) 91 % (31-73) Lymphocytes (%) (Auto) 6 % (24-48) Monocytes (%) (Auto) 3 % (0-9) Eosinophils (%) (Auto) 0 % (0-3) Basophils (%) (Auto) 0 % (0-3) Neutrophils # (Auto) 3.1 x10^3uL (1.8-7.7) Lymphocytes # (Auto) 0.2 x10^3/uL (1.0-4.8) Monocytes # (Auto) 0.1 x10^3/uL (0.0-1.1) Eosinophils # (Auto) 0.0 x10^3/uL (0.0-0.7) Basophils # (Auto) 0.0 x10^3/uL (0.0-0.2) Sodium Level 139 mmol/L (136-145) Potassium Level 4.5 mmol/L (3.5-5.1) Chloride Level 105 mmol/L (98-107) Carbon Dioxide Level 25 mmol/L (21-32) Anion Gap 9 (6-14) Blood Urea Nitrogen 16 mg/dL (7-20) Creatinine 4.2 mg/dL (0.6-1.0) Estimated GFR (Cockcroft-Gault) 12.5 Glucose Level 173 mg/dL (70-99) Calcium Level 8.0 mg/dL (8.5-10.1) Test 06/09/18 07:26 06/09/18 11:20 Glucose (Fingerstick) 141 mg/dL (70-99) 323 mg/dL (70-99) Laboratory Tests Test 06/08/18 16:52 06/08/18 20:30 06/09/18 04:00 06/09/18 07:26 Glucose (Fingerstick) 64 mg/dL (70-99) 261 mg/dL (70-99) 141 mg/dL (70-99) White Blood Count 3.4 x10^3/uL (4.0-11.0) Red Blood Count 3.84 x10^6/uL (3.50-5.40) Hemoglobin 12.1 g/dL (12.0-15.5) Hematocrit 38.5 % (36.0-47.0) Mean Corpuscular Volume 100 fL (79-100) Mean Corpuscular Hemoglobin 32 pg (25-35) Mean Corpuscular Hemoglobin Concent 32 g/dL (31-37) Red Cell Distribution Width 15.3 % (11.5-14.5) Platelet Count 224 x10^3/uL (140-400) Neutrophils (%) (Auto) 91 % (31-73) Lymphocytes (%) (Auto) 6 % (24-48) Monocytes (%) (Auto) 3 % (0-9) Eosinophils (%) (Auto) 0 % (0-3) Basophils (%) (Auto) 0 % (0-3) Neutrophils # (Auto) 3.1 x10^3uL (1.8-7.7) Lymphocytes # (Auto) 0.2 x10^3/uL (1.0-4.8) Monocytes # (Auto) 0.1 x10^3/uL (0.0-1.1) Eosinophils # (Auto) 0.0 x10^3/uL (0.0-0.7) Basophils # (Auto) 0.0 x10^3/uL (0.0-0.2) Sodium Level 139 mmol/L (136-145) Potassium Level 4.5 mmol/L (3.5-5.1) Chloride Level 105 mmol/L (98-107) Carbon Dioxide Level 25 mmol/L (21-32) Anion Gap 9 (6-14) Blood Urea Nitrogen 16 mg/dL (7-20) Creatinine 4.2 mg/dL (0.6-1.0) Estimated GFR (Cockcroft-Gault) 12.5 Glucose Level 173 mg/dL (70-99) Calcium Level 8.0 mg/dL (8.5-10.1) Test 06/09/18 11:20 Glucose (Fingerstick) 323 mg/dL (70-99) Medications Active Scripts Medications Dose Route/Sig Max Daily Dose Days Date Category Diltiazem 24HR Cd (Diltiazem Hcl) 180 Mg Cap.er.24h 180 Mg PO DAILY 06/08/18 Reported Lipitor (Atorvastatin Calcium) 40 Mg Tablet 40 Mg PO HS 06/08/18 Reported Hydrocodone-Acetamin 5-325 mg (Hydrocodone/Acetaminophen) 1 Each Tablet 1 Each PO PRN Q6HRS PRN 06/08/18 Reported Furosemide 40 Mg Tablet 40 Mg PO DAILY 06/08/18 Reported Symbicort 160-4.5 Mcg Inhaler (Budesonide/Formoterol Fumarate) 10.2 Gm Hfa.aer.ad 2 Puff IH BID 06/08/18 Reported Toprol Xl (Metoprolol Succinate) 100 Mg Tab.er.24h 100 Mg PO DAILY 06/08/18 Reported Proair Hfa Inhaler (Albuterol Sulfate) 8.5 Gm Hfa.aer.ad 1 Puff INH PRN Q6HRS PRN 06/08/18 Reported Amiodarone Hcl 200 Mg Tablet 200 Mg PO DAILY MDD 1 03/24/18 Rx Eliquis (Apixaban) 5 Mg Tablet 5 Mg PO BID MDD ` 03/24/18 Rx Marina-Jayme Tablet (Folic Acid/Vitamin B Comp W-C) 0.8 Mg Tablet 0.8 Mg PO DAILY 03/21/18 Reported Hydroxyzine Hcl 25 Mg Tablet 50 Mg PO QMWF 03/21/18 Reported Lisinopril 20 Mg Tablet 1 Tab PO DAILY 11/06/17 Reported Lantus Solostar (Insulin Glargine,Hum.rec.anlog) 100 Unit/1 Ml Insuln.pen 30 Unit SQ QHS 09/03/15 Reported [Albuterol Sulfate] 2.5 MG/3 ML Nebu 2.5 Mg NEB PRN Q4HRS PRN 12/26/14 Rx Aspirin 325 Mg Tablet 1 Tab PO DAILY 01/25/14 Reported Impression . IMPRESSION: 1. Chronic respiratory failure. Respiratory status appears to be compensated. Continue oxygen supplementation. 2. 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 3. Coronary artery disease, status post previous cardiac catheterization and stent placement. 4. Recent CT revealing abdominal aortic aneurysm measuring 6 cm; the patient to be seen by cardiovascular surgeon. 5. Renal failure, on hemodialysis. Plan . SURGERY ON MONDAY ? RESP STATUS IS COMPENSATED EARL MARTINEZ MD Jun 09, 2018 14:41
[2018-06-09 15:00] VITALS: BP 124/60
[2018-06-09 19:00] VITALS: BP 122/66
[2018-06-09] MEDS: ATORVASTATIN CALCIUM 40 MG TABLET. PO SCH (21:49)
[2018-06-09] MEDS: INSULIN GLARGINE 300 UNITS/3 ML INSULN.PEN. SQ SCH (22:03)
[2018-06-09 22:07] VITALS: BP 119/57
--- NOTE | 2018-06-10 02:34 | CONS ---
DATE OF CONSULTATION: 06/09/2018 ATTENDING PHYSICIAN: Dr. Everett. The patient was seen at the request of Dr. Everett for rehab evaluation about her right shoulder pain. HISTORY OF PRESENT ILLNESS: This is a 72-year-old right-handed female. The patient has seen Dr. Dubois, her family physician who obtained CAT scan for evaluation of abdominal pain, which revealed abdominal aortic aneurysm about 6 cm large. She was admitted through the Emergency Room. She admits chronic diarrhea, whenever she eats she had loose stools, it has been going on for about a year. The patient also admits some pain in her right side of her lower back and both shoulders with associated weakness. The patient apparently had bilateral rotator cuff problem and had left rotator cuff surgery, which did not help much. The patient with known vasculopathy, coronary artery disease, congestive heart failure, chronic obstructive pulmonary disease, oxygen dependent, diabetes mellitus, hypertension, hyperlipidemia, end-stage renal disease on hemodialysis, cardiac catheterization with stent placement, left rotator cuff repair, AV graft, cataract surgery, KNOWN ALLERGIC TO IODINE BOTH ORAL AND IV. Family history of coronary artery disease and also her recently had a cerebrovascular accident and he is about to run-up home health therapy. He has been walking and climbing stairs one step at a time. The patient had family members available to help. She lives with her in [place], [place] home, had a flight of stairs with railing to manage. The patient is scheduled for surgical intervention to repeat abdominal aortic aneurysm with endovascular stent graft, which were tentatively scheduled for 06/12/[address] German after cardiac and pulmonary clearance and CTA. The patient had CTA, which revealed moderate wall thickening of the sigmoid colon without surrounding inflammation, could be infectious colitis such as pseudomembranous colitis or could be inflammatory colitis such as ulcerative colitis. No evidence of any diverticulitis. There is no air in the wall to suggest ischemic colitis, trace ascites in the pelvis, moderately dilated cardiomegaly with mild pleural effusion, significant atherosclerotic disease with fusiform infrarenal abdominal aortic aneurysm, which has crescentic thrombus, normal caliber at the level of the renal arteries and at the bifurcation. There is a small chronic dissection in the distal abdominal aorta. There is a stent in the left common iliac artery, which appears patent. Direct comparison to prior studies difficulty due to lack of IV contrast in the prior study; however, abdominal aorta appears unchanged in size, atrophic kidneys, and chronic occlusion of left renal artery. Carotid Doppler studies done revealed elevated peak systolic velocity within the right internal carotid artery with elevated right internal carotid to common carotid artery ratio suggesting 50%-69% stenosis, elevated peak systolic velocity within the left external carotid artery suggesting hemodynamically significant stenosis. PHYSICAL EXAMINATION: Today revealed an elderly female. She is alert, oriented to time, place, person and circumstance and follows commands appropriately, moves all 4 extremities voluntarily. She had significant weakness of shoulder abductors and external rotators. Other than that, she had 4+/5 grade muscle strength in her extremity muscles. Deep tendon reflexes are decreased to absent overall. She had equal perception of touch and pinprick sensation bilaterally. She had tenderness to palpation over right posterior shoulder girdle muscles and over right sacroiliac joint area and straight leg raising test is negative bilaterally. She is using oxygen by nasal cannula. She is independent with bed mobility, transfers, and up walking. She is not using proper body mechanics during mobility. ASSESSMENT: An elderly female with bilateral chronic rotator cuff lesion with some pain in her right shoulder with associated right posterior shoulder girdle muscle strain and failed left rotator cuff surgery in the past, chronic lower back pain from degenerative disk disease of lumbar vertebrae, diabetes mellitus with peripheral neuropathy, chronic obstructive pulmonary disease, oxygen dependent, abdominal aortic aneurysm infrarenal, coronary artery disease status post stenting, atrial fibrillation, history of congestive heart failure, hypertension, hyperlipidemia, asthmatic bronchitis, diverticulosis, anemia, anxiety, chronic renal failure on hemodialysis, hyperparathyroidism. RECOMMENDATIONS: I can inject her right shoulder and also trigger points over right posterior shoulder girdle muscles and right sacral joint area, but as she is having surgery pending early next week, I do not want to put too much steroids in her body. I will be following her and to ask physical therapy to try physical modalities to help ease her right posterior shoulder girdle muscle strain pain. I have reviewed with her a home program of physical modalities and stretching exercise to her shoulder and Codman's exercises to her shoulder and proper body mechanics. Dr. Everett, appreciate asking me to participate in the care of this interesting patient. I will be glad to follow her with you as needed for her rehabilitation. DEVIN JOHNSON MD DR: STACEY/courtney JOB#: [id number] / [id number]
[2018-06-10 03:00] VITALS: BP 133/63
--- NOTE | 2018-06-10 03:55 | CONS ---
DATE OF CONSULTATION: REQUESTING PHYSICIAN: Hospitalist. REASON FOR CONSULTATION: Renal failure. HISTORY OF PRESENT ILLNESS: A 72-year-old female with end-stage renal disease secondary to diabetic nephropathy. She undergoes hemodialysis under the direction of this physician at [facility] Dialysis unit on Monday, Monday, and Monday schedule. The patient is currently admitted with evaluation for weight loss, reduced appetite. She was found to have 5.9 cm abdominal aortic aneurysm and is admitted for endovascular repair. PAST MEDICAL HISTORY: Diabetes mellitus; hypertension; end-stage renal disease, hemodialysis dependent on Monday, Monday, and Monday; hyperlipidemia; anemia of chronic kidney disease; secondary hyperparathyroidism; renal disease; coronary artery disease; congestive cardiomyopathy; COPD with supplemental oxygen dependence, 3 liters of nasal cannula; diverticulosis; and anxiety. PAST SURGICAL HISTORY: Appendectomy, arthroscopy; cataract extractions, coronary artery stenting; and AV fistula placement. ALLERGIES: IV CONTRAST and IODINE. MEDICATIONS: Reviewed from medication list. FAMILY HISTORY: Noncontributory. SOCIAL HISTORY: The patient resides with assistance. REVIEW OF SYSTEMS: No headache, sinus problem, nasal drainage, epistaxis, change in vision or hearing. No difficulty swallowing. No fever, chills, cough, sputum production, or hemoptysis. No chest pain. She does have dyspnea on exertion. No abdominal pain. No nausea, vomiting, diarrhea, seizures, or malignancies. PHYSICAL EXAMINATION: GENERAL: The patient is awake, conversant, appropriate. HEENT: Clear. NECK: No increased JVD. No thyromegaly, mass, or adenopathy. LUNGS: Clear. CARDIAC: Without S3 or rub. ABDOMEN: Soft and nontender. EXTREMITIES: Without edema. NEUROLOGIC: Nonfocal, localizing. PSYCHIATRIC: Fair attention to detail, appropriate affect. LABORATORY DATA: Hemoglobin 12.1, hematocrit 38.5, potassium 4.5, CO2 25, creatinine 4.2, and GFR 12.5. IMPRESSION: 1. End-stage renal disease secondary to diabetic nephropathy. 2. Anemia of chronic kidney disease. 3. Abdominal aortic aneurysm for endovascular repair. RECOMMENDATIONS: 1. Ongoing dialysis on Monday, Monday, and Monday. 2. I certainly agree proceeding with endovascular repair of aneurysm. ROSALIA LARSEN MD DR: ELIZABETH/courtney JOB#: [id number] / [id number]
[2018-06-10 05:08] LABS: BASO % 0 % (0-3); EOS % 0 % (0-3); HEMATOCRIT 35.8 % (36.0-47.0); HEMOGLOBIN 11.1 g/dL (12.0-15.5); LYMPH # 0.6 x10^3/uL (1.0-4.8); LYMPH % 8 % (24-48); MEAN CORPUSCULAR HEMOGLOBIN 32 pg (25-35); MEAN CORPUSCULAR HGB CONC 31 g/dL (31-37); MEAN CORPUSCULAR VOLUME 102 fL (79-100); MONO # 0.8 x10^3/uL (0.0-1.1); MONO % 12 % (0-9); NEUT # 5.9 x10^3uL (1.8-7.7); NEUT % 80 % (31-73); PLATELET COUNT 227 x10^3/uL (140-400); RED BLOOD COUNT 3.52 x10^6/uL (3.50-5.40); RED CELL DISTRIBUTION WIDTH 16.2 % (11.5-14.5); WHITE BLOOD COUNT 7.3 x10^3/uL (4.0-11.0)
[2018-06-10 05:39] LABS: CALCIUM 7.9 mg/dL (8.5-10.1); CREATININE 5.8 mg/dL (0.6-1.0); GFR 8.6; POTASSIUM 4.7 mmol/L (3.5-5.1)
[2018-06-10 07:00] VITALS: BP 117/58
[2018-06-10] MEDS: BUDESONIDE 0.5 MG/2 ML NEBU. NEB SCH ×2 (08:42→19:15)
[2018-06-10] MEDS: ALBUTEROL SULFATE 2.5 MG/3 ML NEBU. NEB SCH ×4 (08:42→19:15)
[2018-06-10] MEDS: DICLOFENAC SODIUM 1% TOPICAL GEL 100GM TUBE. TP SCH ×2 (09:00→21:38)
[2018-06-10] MEDS: ASPIRIN 325 MG TABLET PO SCH (09:07)
[2018-06-10] MEDS: FUROSEMIDE 40 MG TABLET. PO SCH (09:07)
[2018-06-10] MEDS: AMIODARONE HCL 200 MG TABLET. PO SCH (09:08)
[2018-06-10] MEDS: LISINOPRIL 20 MG TABLET PO SCH (09:08)
[2018-06-10 11:00] VITALS: BP 123/56
[2018-06-10] MEDS ORDERED: HEPARIN 25,000UTS/500ML PREMIX 500 ML IV PRN (11:45)
[2018-06-10] MEDS ORDERED: HEPARIN for IV BOLUS 10,000 UNIT/10 ML VIAL. IV PRN (11:45)
--- NOTE | 2018-06-10 11:50 | PDOC ---
Provider Note Provider Note no complaints AF VSS awake and alert abdomen soft, nondistended, nontender bilateral lower extremities warm with palpable femoral and DP pulses bilateral, no tissue breakdown, no swelling CTA reviewed showing 5.9cm AAA A/P 72 year old female with an asymptomatic 5.9cm AAA - Reviewing CTA with Dr. Douglass for likely endovascular stent graft repair, surgery scheduled monday - moderate carotid stenosis, recommend aspirin daily, repeat duplex in 6 months - eliquis no hold for aneurysm surgery - ESRD on dialysis, dialysis tomorrow - cardiology following MARCIA THORNTON MD Jun 10, 2018 11:50
[2018-06-10] MEDS: METOPROLOL SUCC 24HR ER 100 MG TAB.ER.24H. PO SCH (12:07)
--- NOTE | 2018-06-10 13:23 | PDOC ---
PROGRESS NOTES Chief Complaint Chief Complaint Abdominal aortic aneurysm Vasculopathy CAD s/p cardiac cath with stents CHF COPD Diabetes Hypertension, Hyperlipidemia End-stage renal disease, on dialysis Rotator cuff surgery History of Present Illness History of Present Illness Patient was seen and examined in her room. Pt sitting up in bed, alert and oriented. Plan is to repair AAA with endovascular stent graft on Monday. Patient is agreeable to the procedure. HD (M-W-F). Neph, Cards, Pulm following. Hold Eliquis, Start Heparin Protocol per Cards Vitals Vitals Vital Signs Date Time Temp Pulse Resp B/P (MAP) Pulse Ox O2 Delivery O2 Flow Rate FiO2 06/10/18 12:07 61 117/58 06/10/18 11:08 98 Nasal Cannula 3.0 06/10/18 11:00 97.3 18 97.3 Physical Exam General: Alert, Oriented X3, Cooperative, No acute distress Heart: Regular rate, No murmurs Lungs: Clear Abdomen: Normal bowel sounds, No tenderness Skin: No rashes, No breakdown, No significant lesion Labs LABS Laboratory Tests Test 06/09/18 17:31 06/09/18 21:48 06/10/18 04:15 06/10/18 07:42 Glucose (Fingerstick) 181 mg/dL (70-99) 280 mg/dL (70-99) 99 mg/dL (70-99) White Blood Count 7.3 x10^3/uL (4.0-11.0) Red Blood Count 3.52 x10^6/uL (3.50-5.40) Hemoglobin 11.1 g/dL (12.0-15.5) Hematocrit 35.8 % (36.0-47.0) Mean Corpuscular Volume 102 fL (79-100) Mean Corpuscular Hemoglobin 32 pg (25-35) Mean Corpuscular Hemoglobin Concent 31 g/dL (31-37) Red Cell Distribution Width 16.2 % (11.5-14.5) Platelet Count 227 x10^3/uL (140-400) Neutrophils (%) (Auto) 80 % (31-73) Lymphocytes (%) (Auto) 8 % (24-48) Monocytes (%) (Auto) 12 % (0-9) Eosinophils (%) (Auto) 0 % (0-3) Basophils (%) (Auto) 0 % (0-3) Neutrophils # (Auto) 5.9 x10^3uL (1.8-7.7) Lymphocytes # (Auto) 0.6 x10^3/uL (1.0-4.8) Monocytes # (Auto) 0.8 x10^3/uL (0.0-1.1) Eosinophils # (Auto) 0.0 x10^3/uL (0.0-0.7) Basophils # (Auto) 0.0 x10^3/uL (0.0-0.2) Sodium Level 138 mmol/L (136-145) Potassium Level 4.7 mmol/L (3.5-5.1) Chloride Level 102 mmol/L (98-107) Carbon Dioxide Level 27 mmol/L (21-32) Anion Gap 9 (6-14) Blood Urea Nitrogen 37 mg/dL (7-20) Creatinine 5.8 mg/dL (0.6-1.0) Estimated GFR (Cockcroft-Gault) 8.6 Glucose Level 238 mg/dL (70-99) Calcium Level 7.9 mg/dL (8.5-10.1) Test 06/10/18 11:35 Glucose (Fingerstick) 69 mg/dL (70-99) Review of Systems Review of Systems General: no acute distress, no fever, no rash Cardiac: no murmur, no chest pain, no arrhythmia Respiratory: no shortness of breath, no wheezing, no rales/rhonchi Assessment and Plan Assessmemt and Plan Assessment: Abdominal aortic aneurysm Vasculopathy CAD s/p cardiac cath with stents CHF COPD Diabetes Hypertension, Hyperlipidemia End-stage renal disease, on dialysis Rotator cuff surgery Plan: Initiate Heparin Protocol, Hold Eliquis classroom monitor Probably endovascular stent graft to repair AAA planned for Monday Hemodialysis on O2 per PR Monitor labs Home meds PT/OT Cardiology, Nephrology, Pulmonology following Comment Review of Relevant I have reviewed the following items mykel (where applicable) has been applied. Labs Laboratory Tests Test 06/08/18 16:52 06/08/18 20:30 06/09/18 04:00 06/09/18 07:26 Glucose (Fingerstick) 64 mg/dL (70-99) 261 mg/dL (70-99) 141 mg/dL (70-99) White Blood Count 3.4 x10^3/uL (4.0-11.0) Red Blood Count 3.84 x10^6/uL (3.50-5.40) Hemoglobin 12.1 g/dL (12.0-15.5) Hematocrit 38.5 % (36.0-47.0) Mean Corpuscular Volume 100 fL (79-100) Mean Corpuscular Hemoglobin 32 pg (25-35) Mean Corpuscular Hemoglobin Concent 32 g/dL (31-37) Red Cell Distribution Width 15.3 % (11.5-14.5) Platelet Count 224 x10^3/uL (140-400) Neutrophils (%) (Auto) 91 % (31-73) Lymphocytes (%) (Auto) 6 % (24-48) Monocytes (%) (Auto) 3 % (0-9) Eosinophils (%) (Auto) 0 % (0-3) Basophils (%) (Auto) 0 % (0-3) Neutrophils # (Auto) 3.1 x10^3uL (1.8-7.7) Lymphocytes # (Auto) 0.2 x10^3/uL (1.0-4.8) Monocytes # (Auto) 0.1 x10^3/uL (0.0-1.1) Eosinophils # (Auto) 0.0 x10^3/uL (0.0-0.7) Basophils # (Auto) 0.0 x10^3/uL (0.0-0.2) Sodium Level 139 mmol/L (136-145) Potassium Level 4.5 mmol/L (3.5-5.1) Chloride Level 105 mmol/L (98-107) Carbon Dioxide Level 25 mmol/L (21-32) Anion Gap 9 (6-14) Blood Urea Nitrogen 16 mg/dL (7-20) Creatinine 4.2 mg/dL (0.6-1.0) Estimated GFR (Cockcroft-Gault) 12.5 Glucose Level 173 mg/dL (70-99) Calcium Level 8.0 mg/dL (8.5-10.1) Test 06/09/18 11:20 06/09/18 17:31 06/09/18 21:48 06/10/18 04:15 Glucose (Fingerstick) 323 mg/dL (70-99) 181 mg/dL (70-99) 280 mg/dL (70-99) White Blood Count 7.3 x10^3/uL (4.0-11.0) Red Blood Count 3.52 x10^6/uL (3.50-5.40) Hemoglobin 11.1 g/dL (12.0-15.5) Hematocrit 35.8 % (36.0-47.0) Mean Corpuscular Volume 102 fL (79-100) Mean Corpuscular Hemoglobin 32 pg (25-35) Mean Corpuscular Hemoglobin Concent 31 g/dL (31-37) Red Cell Distribution Width 16.2 % (11.5-14.5) Platelet Count 227 x10^3/uL (140-400) Neutrophils (%) (Auto) 80 % (31-73) Lymphocytes (%) (Auto) 8 % (24-48) Monocytes (%) (Auto) 12 % (0-9) Eosinophils (%) (Auto) 0 % (0-3) Basophils (%) (Auto) 0 % (0-3) Neutrophils # (Auto) 5.9 x10^3uL (1.8-7.7) Lymphocytes # (Auto) 0.6 x10^3/uL (1.0-4.8) Monocytes # (Auto) 0.8 x10^3/uL (0.0-1.1) Eosinophils # (Auto) 0.0 x10^3/uL (0.0-0.7) Basophils # (Auto) 0.0 x10^3/uL (0.0-0.2) Sodium Level 138 mmol/L (136-145) Potassium Level 4.7 mmol/L (3.5-5.1) Chloride Level 102 mmol/L (98-107) Carbon Dioxide Level 27 mmol/L (21-32) Anion Gap 9 (6-14) Blood Urea Nitrogen 37 mg/dL (7-20) Creatinine 5.8 mg/dL (0.6-1.0) Estimated GFR (Cockcroft-Gault) 8.6 Glucose Level 238 mg/dL (70-99) Calcium Level 7.9 mg/dL (8.5-10.1) Test 06/10/18 07:42 06/10/18 11:35 Glucose (Fingerstick) 99 mg/dL (70-99) 69 mg/dL (70-99) Laboratory Tests Test 06/09/18 17:31 06/09/18 21:48 06/10/18 04:15 06/10/18 07:42 Glucose (Fingerstick) 181 mg/dL (70-99) 280 mg/dL (70-99) 99 mg/dL (70-99) White Blood Count 7.3 x10^3/uL (4.0-11.0) Red Blood Count 3.52 x10^6/uL (3.50-5.40) Hemoglobin 11.1 g/dL (12.0-15.5) Hematocrit 35.8 % (36.0-47.0) Mean Corpuscular Volume 102 fL (79-100) Mean Corpuscular Hemoglobin 32 pg (25-35) Mean Corpuscular Hemoglobin Concent 31 g/dL (31-37) Red Cell Distribution Width 16.2 % (11.5-14.5) Platelet Count 227 x10^3/uL (140-400) Neutrophils (%) (Auto) 80 % (31-73) Lymphocytes (%) (Auto) 8 % (24-48) Monocytes (%) (Auto) 12 % (0-9) Eosinophils (%) (Auto) 0 % (0-3) Basophils (%) (Auto) 0 % (0-3) Neutrophils # (Auto) 5.9 x10^3uL (1.8-7.7) Lymphocytes # (Auto) 0.6 x10^3/uL (1.0-4.8) Monocytes # (Auto) 0.8 x10^3/uL (0.0-1.1) Eosinophils # (Auto) 0.0 x10^3/uL (0.0-0.7) Basophils # (Auto) 0.0 x10^3/uL (0.0-0.2) Sodium Level 138 mmol/L (136-145) Potassium Level 4.7 mmol/L (3.5-5.1) Chloride Level 102 mmol/L (98-107) Carbon Dioxide Level 27 mmol/L (21-32) Anion Gap 9 (6-14) Blood Urea Nitrogen 37 mg/dL (7-20) Creatinine 5.8 mg/dL (0.6-1.0) Estimated GFR (Cockcroft-Gault) 8.6 Glucose Level 238 mg/dL (70-99) Calcium Level 7.9 mg/dL (8.5-10.1) Test 06/10/18 11:35 Glucose (Fingerstick) 69 mg/dL (70-99) Medications Current Medications Sodium Chloride 1,000 ml @ 100 mls/hr Q10H IV Last administered on 06/07/18at 19:56; Start 06/07/18 at 19:18; Stop 06/08/18 at 05:17; Status DC Ondansetron HCl (Zofran) 4 mg PRN Q8HRS PRN IV NAUSEA/VOMITING 1ST CHOICE; Start 06/07/18 at 21:00; Stop 06/08/18 at 20:59; Status DC Morphine Sulfate (Morphine Sulfate) 2 mg PRN Q2HR PRN IV SEVERE PAIN; Start at 21:00; Stop 06/08/18 at 06:39; Status DC Morphine Sulfate (Morphine Sulfate) 2 mg PRN Q2HR PRN IV SEVERE PAIN; Start 06/08/18 at 06:39; Stop 06/08/18 at 20:59; Status DC Amiodarone HCl (Cordarone) 200 mg DAILY PO Last administered on 06/10/18at 09:08 ; Start 06/08/18 at 12:00 Apixaban (Eliquis) 5 mg BID PO ; Start 06/08/18 at 12:00; Stop 06/08/18 at 15:30; Status DC Aspirin (Trustpilot Aspirin) 325 mg DAILY PO Last administered on 06/10/18at 09:07; Start 06/08/18 at 12:00 Atorvastatin Calcium (Lipitor) 40 mg HS PO Last administered on 06/09/18at 21:49 ; Start 06/08/18 at 21:00 Furosemide (Lasix) 40 mg DAILY PO Last administered on 06/10/18 09:07; Start at 12:00 Acetaminophen/ Hydrocodone Bitart (Lortab 5/325) 1 tab PRN Q6HRS PRN PO back pain ; Start 06/08/18 at 11:30 Insulin Glargine (Lantus) 30 units QHS SQ Last administered on 06/09/18at 22:03; Start 06/08/18 at 21:00 Lisinopril (Prinivil) 20 mg DAILY PO Last administered on 06/10/18 09:08; Start 06/08/18 at 12:00 Metoprolol Succinate (Toprol Xl) 100 mg DAILY PO Last administered on 06/10/18at 12:07; Start 06/08/18 at 12:00 Non-Formulary Medication (Budesonide/ Formoterol Fumarate (Symbicort 160-4.5 Mcg Inhaler)) 2 puff BID IH ; Start 06/08/18 at 21:00; Status UNV Diltiazem HCl (Cardizem 24hr Cd) 180 mg DAILY PO Last administered on 06/10/18 12:07; Start 06/08/18 at 12:00 Hydroxyzine Pamoate (Vistaril) 50 mg QMWF PO Last administered on 06/08/18at 16: 49; Start 06/08/18 at 16:00 Non-Formulary Medication ([Albuterol Sulfate] ) 2.5 mg PRN Q4HRS PRN NEB SHORTNESS OF BREATH; Start 06/08/18 at 11:30; Status UNV Budesonide (Pulmicort) 0.5 mg RTBID NEB Last administered on 06/10/18at 08:42; Start 06/08/18 at 12:00 Albuterol Sulfate (Ventolin Neb Soln) 2.5 mg RTQID NEB Last administered on 06/10at 11:07; Start 06/08/18 at 12:00 Albuterol Sulfate (Ventolin Neb Soln) 2.5 mg PRN Q4HRS PRN NEB SHORTNESS OF BREATH; Start 06/08/18 at 11:30 Sodium Chloride 1,000 ml @ 1,000 mls/hr Q1H PRN IV hypotension; Start 06/08/18 at 12:22; Stop 06/08/18 at 18:21; Status DC Diphenhydramine HCl (Benadryl) 25 mg 1X PRN PRN IV ITCHING; Start 06/08/18 at 12 :30; Stop 06/09/18 at 12:29; Status DC Diphenhydramine HCl (Benadryl) 25 mg 1X PRN PRN IV ITCHING; Start 06/08/18 at 12 :30; Stop 06/09/18 at 12:29; Status DC Sodium Chloride 1,000 ml @ 400 mls/hr Q2H30M PRN IV PATENCY; Start 06/08/18 at 12:22; Stop 06/09/18 at 00:21; Status DC Info (PHARMACY MONITORING -- do not chart) 1 each PRN DAILY PRN MC SEE COMMENTS ; Start 06/08/18 at 12:30 Prednisone (Prednisone) 20 mg 1X ONCE PO Last administered on 06/08/18at 18:04; Start 06/08/18 at 18:00; Stop 06/08/18 at 18:01; Status DC Prednisone (Prednisone) 20 mg 1X ONCE PO Last administered on 06/08/18at 21:12; Start 06/08/18 at 22:00; Stop 06/08/18 at 22:01; Status DC Prednisone (Prednisone) 20 mg 1X ONCE PO Last administered on 06/09/18at 06:15; Start 06/09/18 at 06:00; Stop 06/09/18 at 06:01; Status DC Diphenhydramine HCl (Benadryl) 50 mg PRN 1X PRN PO COMMENTS Last administered on 06/09/18at 08:04; Start 06/08/18 at 14:45; Stop 06/09/18 at 14:44; Status DC Enoxaparin Sodium (Lovenox Per Pharmacy Treatment Dosing) 1 each PRN DAILY PRN MC SEE COMMENTS; Start 06/08/18 at 15:30; Status Cancel Iohexol (Omnipaque 350 Mg/ml) 90 ml 1X ONCE IV Last administered on 06/09/18at 08:56; Start 06/09/18 at 09:00; Stop 06/09/18 at 09:01; Status DC Info (CONTRAST GIVEN -- Rx MONITORING) 1 each PRN DAILY PRN MC SEE COMMENTS; Start 06/09/18 at 09:00; Stop 06/11/18 at 08:59 Diclofenac Sodium (Voltaren) 1 evgeny BID TP ; Start 06/09/18 at 13:30 Heparin Sodium/ Dextrose 500 ml @ 0 mls/hr CONT PRN IV SEE I/O RECORD Last administered on 06/10/18at 12:14; Start 06/10/18 at 11:45 Heparin Sodium (Porcine) (Heparin Sodium) 1,700 unit PRN Q6HRS PRN IV FOR UFH LEVEL LESS THAN 0.2; Start 06/10/18 at 11:45 Info (Anti-Coagulation Monitoring By Pharmacy) 1 each PRN DAILY PRN MC SEE COMMENTS; Start 06/10/18 at 11:45 Active Scripts Active Amiodarone Hcl 200 Mg Tablet 200 Mg PO DAILY MDD 1 Eliquis (Apixaban) 5 Mg Tablet 5 Mg PO BID MDD ` [Albuterol Sulfate] 2.5 MG/3 ML Nebu 2.5 Mg NEB PRN Q4HRS PRN Reported Diltiazem 24HR Cd (Diltiazem Hcl) 180 Mg Cap.er.24h 180 Mg PO DAILY Lipitor (Atorvastatin Calcium) 40 Mg Tablet 40 Mg PO HS Hydrocodone-Acetamin 5-325 mg (Hydrocodone/Acetaminophen) 1 Each Tablet 1 Each PO PRN Q6HRS PRN Furosemide 40 Mg Tablet 40 Mg PO DAILY Symbicort 160-4.5 Mcg Inhaler (Budesonide/Formoterol Fumarate) 10.2 Gm Hfa.aer.ad 2 Puff IH BID Toprol Xl (Metoprolol Succinate) 100 Mg Tab.er.24h 100 Mg PO DAILY Proair Hfa Inhaler (Albuterol Sulfate) 8.5 Gm Hfa.aer.ad 1 Puff INH PRN Q6HRS PRN Marina-Jayme Tablet (Folic Acid/Vitamin B Comp W-C) 0.8 Mg Tablet 0.8 Mg PO DAILY Hydroxyzine Hcl 25 Mg Tablet 50 Mg PO QMWF Lisinopril 20 Mg Tablet 1 Tab PO DAILY Lantus Solostar (Insulin Glargine,Hum.rec.anlog) 100 Unit/1 Ml Insuln.pen 30 Unit SQ QHS Aspirin 325 Mg Tablet 1 Tab PO DAILY Vitals/I & O Vital Sign - Last 24 Hours 06/09/18 06/09/18 06/09/18 06/09/18 15:00 15:20 18:49 18:49 Temp 98.0 98.0 Pulse 67 Resp 18 B/P (MAP) 124/60 (81) Pulse Ox 96 99 O2 Delivery Room Air Nasal Cannula Nasal Cannula Nasal Cannula O2 Flow Rate 2.0 3.0 3.0 06/09/18 06/09/18 06/09/18 06/10/18 19:00 20:20 22:07 03:00 Temp 97.6 97.6 98.2 97.6 97.6 98.2 Pulse 60 53 54 Resp 18 18 18 B/P (MAP) 122/66 (84) 119/57 (77) 133/63 (86) Pulse Ox 97 96 96 O2 Delivery Nasal Cannula Nasal Cannula Nasal Cannula Nasal Cannula O2 Flow Rate 3.0 3.0 3.0 3.0 06/10/18 06/10/18 06/10/18 06/10/18 07:00 08:00 08:44 09:08 Temp 97.9 97.9 Pulse 58 58 Resp 18 B/P (MAP) 117/58 (77) 117/58 Pulse Ox 93 O2 Delivery Nasal Cannula Nasal Cannula Nasal Cannula O2 Flow Rate 3.0 3.0 3.0 06/10/18 06/10/18 06/10/18 06/10/18 09:08 11:00 11:08 12:07 Temp 97.3 97.3 Pulse 59 61 61 Resp 18 B/P (MAP) 117/58 123/56 (78) 117/58 Pulse Ox 97 98 O2 Delivery Nasal Cannula Nasal Cannula O2 Flow Rate 3.0 3.0 06/10/18 12:07 Pulse 61 B/P (MAP) 117/58 Intake and Output 06/09/18 06/09/18 06/10/18 15:00 23:00 07:00 Intake Total 100 ml 200 ml Balance 100 ml 200 ml YULIA DE ANDA III, DO Jun 10, 2018 13:23
[2018-06-10 15:00] VITALS: BP 117/57
[2018-06-10] MEDS: HYDROcodone/APAP 5/325MG 1 TAB TABLET PO PRN (16:28)
[2018-06-10 19:06] VITALS: BP 98/48
[2018-06-10] MEDS: ATORVASTATIN CALCIUM 40 MG TABLET. PO SCH (21:37)
[2018-06-10] MEDS: INSULIN GLARGINE 300 UNITS/3 ML INSULN.PEN. SQ SCH (21:45)
[2018-06-10 22:53] VITALS: BP 100/45
[2018-06-11] VITALS (23 sets, daily range): BP systolic 91–154; BP diastolic 43–67
--- NOTE | 2018-06-11 01:12 | EKG ---
[facility] [address] [place] [address] Test Date: 2018-06-11 Test Time: 01:05:31 Pat Name: WANDA PRABHAKAR Department: Room: 258 1 Gender: F Edi Programmer: JASE : 1945 Requested By: FRANK REED Order Number: [id number] Reading MD: Felix Bustamante MD Measurements Intervals [place] Rate: 39 P: 90 PA: 188 QRS: -57 QRSD: 154 T: 93 QT: 526 QTc: 428 Interpretive Statements SINUS BRADYCARDIA LAD RBBB Electronically Signed On 06-11-2018 11:06:28 PODOPEDIATRICIAN by Felix Bustamante MD
[2018-06-11 01:22] LABS: CALCIUM 7.9 mg/dL (8.5-10.1); GFR 6.9; POTASSIUM 4.9 mmol/L (3.5-5.1)
[2018-06-11 02:40] LABS: BASO % 1 % (0-3); EOS % 1 % (0-3); HEMATOCRIT 37.2 % (36.0-47.0); HEMOGLOBIN 11.4 g/dL (12.0-15.5); LYMPH # 0.8 x10^3/uL (1.0-4.8); LYMPH % 15 % (24-48); MEAN CORPUSCULAR HEMOGLOBIN 31 pg (25-35); MEAN CORPUSCULAR HGB CONC 31 g/dL (31-37); MEAN CORPUSCULAR VOLUME 103 fL (79-100); MONO # 0.8 x10^3/uL (0.0-1.1); MONO % 15 % (0-9); NEUT # 3.6 x10^3uL (1.8-7.7); NEUT % 69 % (31-73); PLATELET COUNT 230 x10^3/uL (140-400); RED BLOOD COUNT 3.62 x10^6/uL (3.50-5.40); WHITE BLOOD COUNT 5.1 x10^3/uL (4.0-11.0)
[2018-06-11 02:51] LABS: PROTHROMBIN TIME PATIENT 13.5 SEC (11.7-14.0)
[2018-06-11] MEDS ORDERED: IV NORMAL SALINE 500ML BAG 250 ML IV ONE ×2 (03:00→03:30)
--- NOTE | 2018-06-11 03:00 | NUR ---
Pt's HR dropped to 25 sustaining 20s and 30s. Pt remains symptomatic with CP, nausea, diaphoresis, and hypotensive with SBP in the 80s. Rapid called and Dr Mendoza repaged. Orders given to give another NS bolus, stop heparin gtt, begin dopamine, transfer to ICU and to notify surgeon. Notified Dr Maddox. New order given for angiogram of ABD and pelvis. Dr Maddox aware of allergies and wants to continue r/t possible medical emergency. POC explained to pt and pt v/u. Pt transferred to CT then to ICU.
[2018-06-11] MEDS ORDERED: ONDANSETRON PF 4 MG/2 ML VIAL. IV PRN (03:15)
[2018-06-11] MEDS ORDERED: MORPHINE SULFATE 2 MG/ML VIAL. IV PRN ×3 (03:15→04:30)
[2018-06-11] MEDS ORDERED: CONTRAST GIVEN. MC PRN (03:30)
--- NOTE | 2018-06-11 03:50 | NUR ---
Rapid Response: RR called around 0221, patient having bradycardia, hypotension, nausea, and chest pain. Patient complaining of chest pain under her breast bilaterally and feels like pressure, stating she feels awful. Repeated EKG. Patient is denying abdominal pain. Patient taken to CT per Dr. Maddox and transferred to ICU.
[2018-06-11] MEDS ORDERED: diphenhydrAMINE 50 MG/ML VIAL IV ONE (04:00)
[2018-06-11] MEDS ORDERED: IOHEXOL 350 MG/ML 100 ML VIAL. IV ONE (04:00)
--- NOTE | 2018-06-11 04:20 | RAD ---
CT ANGIOGRAPHY ABD AND PELVIS dated 06/11/2018 2:52 AM Indication: Chest pain.CP, STAT MD ELISSA AWARE OF ALLERGIES, OMNI 350, 90ml, PATIENT MOVED TO ICU [id number], SHE WAS PREMEDICATED WITH BENEDRYL. Comparison: 06/09/2018 Technique: Contiguous axial imaging of the abdomen and pelvis performed following the intravenous administration of 90 cc Omnipaque 350. Study was performed as dedicated CTA with thin cut coronal and sagittal MIPS reconstruction. One or more of the following individualized dose reduction techniques were utilized for this examination: 1. Automated exposure control 2. Adjustment of the mA and/or kV according to patient size 3. Use of iterative reconstruction technique Findings: Limited images of lung bases show patchy consolidation in the lower lobes with small bilateral pleural effusions, increased from prior study. Heart size is moderately enlarged. No pericardial effusion. Mild emphysema. Mild "interstitial changes at both lung bases" Liver is homogeneous. No apparent hepatic mass. Biliary tree normal in caliber. There is some increased density in the gallbladder lumen consistent with sludge and/or vicarious excreted contrast material. Spleen is normal in size. Pancreas unremarkable. Adrenal glands are somewhat thickened, unchanged. There calcifications at the calyceal margins of the right kidney, unchanged. The left kidney is atrophic. No ureteral stone or hydronephrosis. Partially opacified GI tract normal in caliber and contour. Mild wall thickening of the ascending colon, unchanged. There is been interval improvement in wall thickening of the sigmoid. Scattered diverticula throughout. No inflammatory changes in the mesentery. No lymphadenopathy. There is extensive atherosclerotic calcifications of the abdominal aorta. Focal aneurysm at its infrarenal portion measures up to 5.1 cm transverse. Possible small intimal flap distally is unchanged. No periaortic fluid collection. Left renal artery is poorly visualized and may be occluded. The right renal artery is patent. Celiac artery and SMA are patent. No adenopathy. Images of pelvis show nondistended urinary bladder. Trace amount of free pelvic fluid. No pelvic lymphadenopathy. Bone windows show no acute findings. Multilevel spondylosis. Generalized anasarca. IMPRESSION: 1. Extensive atherosclerotic changes of the abdominal aorta with 5.1 cm aneurysm, stable. There is also a possible short segment dissection flap, unchanged. 2. Bibasilar airspace disease, edema versus pneumonia. There are small bilateral pleural effusions. Generalized anasarca. 3. Wall thickening of the ascending colon and hepatic flexure suggestive of colitis. The previously described inflammatory changes of the sigmoid colon have improved. 4. Right-sided nephrolithiasis, nonobstructive. 5. Sludge-filled gallbladder. 6. Small amount of free pelvic fluid, nonspecific. 7. Diverticulosis. 8. High-grade stenosis of the left renal artery origin. 9. Cardiomegaly. Electronically signed by: Josue Lew MD (06/11/2018 4:16 AM) [facility]
[2018-06-11] MEDS ORDERED: HEPARIN 25,000UTS/500ML PREMIX 500 ML IV PRN (04:30)
--- NOTE | 2018-06-11 06:15 | EKG ---
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
--- NOTE | 2018-06-11 06:41 | NUR ---
PATIENT ARRIVED TO ICU ROOM [address] [place] [address]. UPON ARRIVAL PATIENT COMPLAINING OF CHEST PAIN, NAUSEA WITH RETCHING. DOPAMINE AND NS INFUSING. ORDERS RECEIVED FROM DR. THORNTON AND DR. WELSH. WILL CONTINUE TO MONITOR.
[2018-06-11] MEDS: ALBUTEROL SULFATE 2.5 MG/3 ML NEBU. NEB SCH ×4 (08:10→19:30)
[2018-06-11] MEDS: BUDESONIDE 0.5 MG/2 ML NEBU. NEB SCH ×2 (08:10→19:30)
[2018-06-11] MEDS: ASPIRIN 325 MG TABLET PO SCH (09:00)
[2018-06-11] MEDS: FUROSEMIDE 40 MG TABLET. PO SCH (09:00)
[2018-06-11] MEDS: METOPROLOL SUCC 24HR ER 100 MG TAB.ER.24H. PO SCH (09:00)
[2018-06-11] MEDS: DICLOFENAC SODIUM 1% TOPICAL GEL 100GM TUBE. TP SCH ×2 (09:00→23:36)
[2018-06-11] MEDS: LISINOPRIL 20 MG TABLET PO SCH (09:00)
--- NOTE | 2018-06-11 09:51 | PDOC ---
PROGRESS NOTES Subjective Subjective No new complaints. Objective Objective Vital Signs Date Time Temp Pulse Resp B/P (MAP) Pulse Ox O2 Delivery O2 Flow Rate FiO2 06/11/18 09:00 51 14 118/57 (77) 97 Nasal Cannula 3.0 06/11/18 07:00 97.0 97.0 Intake and Output 06/11/18 06:59 Intake Total 880 ml Balance 880 ml Intake Oral 880 ml # Voids 1 Physical Exam Physical Exam She was moved to ICU as she had bradycardia yesterday. She is alert,supine in bed and she continues with shoulder girdle muscle weakness. Plan Plan of Care To consider injecting her right shoulder and right sacroiliac joint post op if needed. Comment Review of Relevant I have reviewed the following items mykel (where applicable) has been applied. Labs Laboratory Tests Test 06/09/18 11:20 06/09/18 17:31 06/09/18 21:48 06/10/18 04:15 Glucose (Fingerstick) 323 mg/dL (70-99) 181 mg/dL (70-99) 280 mg/dL (70-99) White Blood Count 7.3 x10^3/uL (4.0-11.0) Red Blood Count 3.52 x10^6/uL (3.50-5.40) Hemoglobin 11.1 g/dL (12.0-15.5) Hematocrit 35.8 % (36.0-47.0) Mean Corpuscular Volume 102 fL (79-100) Mean Corpuscular Hemoglobin 32 pg (25-35) Mean Corpuscular Hemoglobin Concent 31 g/dL (31-37) Red Cell Distribution Width 16.2 % (11.5-14.5) Platelet Count 227 x10^3/uL (140-400) Neutrophils (%) (Auto) 80 % (31-73) Lymphocytes (%) (Auto) 8 % (24-48) Monocytes (%) (Auto) 12 % (0-9) Eosinophils (%) (Auto) 0 % (0-3) Basophils (%) (Auto) 0 % (0-3) Neutrophils # (Auto) 5.9 x10^3uL (1.8-7.7) Lymphocytes # (Auto) 0.6 x10^3/uL (1.0-4.8) Monocytes # (Auto) 0.8 x10^3/uL (0.0-1.1) Eosinophils # (Auto) 0.0 x10^3/uL (0.0-0.7) Basophils # (Auto) 0.0 x10^3/uL (0.0-0.2) Sodium Level 138 mmol/L (136-145) Potassium Level 4.7 mmol/L (3.5-5.1) Chloride Level 102 mmol/L (98-107) Carbon Dioxide Level 27 mmol/L (21-32) Anion Gap 9 (6-14) Blood Urea Nitrogen 37 mg/dL (7-20) Creatinine 5.8 mg/dL (0.6-1.0) Estimated GFR (Cockcroft-Gault) 8.6 Glucose Level 238 mg/dL (70-99) Calcium Level 7.9 mg/dL (8.5-10.1) Test 06/10/18 07:42 06/10/18 11:35 06/10/18 17:44 06/10/18 18:10 Glucose (Fingerstick) 99 mg/dL (70-99) 69 mg/dL (70-99) 131 mg/dL (70-99) Heparin Anti-Xa Act, Unfractionated 0.24 IU/mL (0.30-0.70) Test 06/10/18 20:44 06/11/18 01:00 06/11/18 04:00 06/11/18 04:08 Glucose (Fingerstick) 117 mg/dL (70-99) 72 mg/dL (70-99) White Blood Count 5.1 x10^3/uL (4.0-11.0) Red Blood Count 3.62 x10^6/uL (3.50-5.40) Hemoglobin 11.4 g/dL (12.0-15.5) Hematocrit 37.2 % (36.0-47.0) Mean Corpuscular Volume 103 fL (79-100) Mean Corpuscular Hemoglobin 31 pg (25-35) Mean Corpuscular Hemoglobin Concent 31 g/dL (31-37) Red Cell Distribution Width 16.0 % (11.5-14.5) Platelet Count 230 x10^3/uL (140-400) Neutrophils (%) (Auto) 69 % (31-73) Lymphocytes (%) (Auto) 15 % (24-48) Monocytes (%) (Auto) 15 % (0-9) Eosinophils (%) (Auto) 1 % (0-3) Basophils (%) (Auto) 1 % (0-3) Neutrophils # (Auto) 3.6 x10^3uL (1.8-7.7) Lymphocytes # (Auto) 0.8 x10^3/uL (1.0-4.8) Monocytes # (Auto) 0.8 x10^3/uL (0.0-1.1) Eosinophils # (Auto) 0.0 x10^3/uL (0.0-0.7) Basophils # (Auto) 0.0 x10^3/uL (0.0-0.2) Prothrombin Time 13.5 SEC (11.7-14.0) Prothromb Time International Ratio 1.1 (0.8-1.1) Heparin Anti-Xa Act, Unfractionated 0.70 IU/mL (0.30-0.70) Sodium Level 140 mmol/L (136-145) Potassium Level 4.9 mmol/L (3.5-5.1) Chloride Level 104 mmol/L (98-107) Carbon Dioxide Level 26 mmol/L (21-32) Anion Gap 10 (6-14) Blood Urea Nitrogen 44 mg/dL (7-20) Creatinine 7.0 mg/dL (0.6-1.0) Estimated GFR (Cockcroft-Gault) 6.9 Glucose Level 102 mg/dL (70-99) Calcium Level 7.9 mg/dL (8.5-10.1) Troponin I Quantitative 0.059 ng/mL (0.000-0.055) 0.060 ng/mL (0.000-0.055) Laboratory Tests Test 06/10/18 11:35 06/10/18 17:44 06/10/18 18:10 06/10/18 20:44 Glucose (Fingerstick) 69 mg/dL (70-99) 131 mg/dL (70-99) 117 mg/dL (70-99) Heparin Anti-Xa Act, Unfractionated 0.24 IU/mL (0.30-0.70) Test 06/11/18 01:00 06/11/18 04:00 06/11/18 04:08 White Blood Count 5.1 x10^3/uL (4.0-11.0) Red Blood Count 3.62 x10^6/uL (3.50-5.40) Hemoglobin 11.4 g/dL (12.0-15.5) Hematocrit 37.2 % (36.0-47.0) Mean Corpuscular Volume 103 fL (79-100) Mean Corpuscular Hemoglobin 31 pg (25-35) Mean Corpuscular Hemoglobin Concent 31 g/dL (31-37) Red Cell Distribution Width 16.0 % (11.5-14.5) Platelet Count 230 x10^3/uL (140-400) Neutrophils (%) (Auto) 69 % (31-73) Lymphocytes (%) (Auto) 15 % (24-48) Monocytes (%) (Auto) 15 % (0-9) Eosinophils (%) (Auto) 1 % (0-3) Basophils (%) (Auto) 1 % (0-3) Neutrophils # (Auto) 3.6 x10^3uL (1.8-7.7) Lymphocytes # (Auto) 0.8 x10^3/uL (1.0-4.8) Monocytes # (Auto) 0.8 x10^3/uL (0.0-1.1) Eosinophils # (Auto) 0.0 x10^3/uL (0.0-0.7) Basophils # (Auto) 0.0 x10^3/uL (0.0-0.2) Prothrombin Time 13.5 SEC (11.7-14.0) Prothromb Time International Ratio 1.1 (0.8-1.1) Heparin Anti-Xa Act, Unfractionated 0.70 IU/mL (0.30-0.70) Sodium Level 140 mmol/L (136-145) Potassium Level 4.9 mmol/L (3.5-5.1) Chloride Level 104 mmol/L (98-107) Carbon Dioxide Level 26 mmol/L (21-32) Anion Gap 10 (6-14) Blood Urea Nitrogen 44 mg/dL (7-20) Creatinine 7.0 mg/dL (0.6-1.0) Estimated GFR (Cockcroft-Gault) 6.9 Glucose Level 102 mg/dL (70-99) Calcium Level 7.9 mg/dL (8.5-10.1) Troponin I Quantitative 0.059 ng/mL (0.000-0.055) 0.060 ng/mL (0.000-0.055) Glucose (Fingerstick) 72 mg/dL (70-99) Medications Current Medications Sodium Chloride 1,000 ml @ 100 mls/hr Q10H IV Last administered on 06/07/18at 19:56; Start 06/07/18 at 19:18; Stop 06/08/18 at 05:17; Status DC Ondansetron HCl (Zofran) 4 mg PRN Q8HRS PRN IV NAUSEA/VOMITING 1ST CHOICE; Start 06/07/18 at 21:00; Stop 06/08/18 at 20:59; Status DC Morphine Sulfate (Morphine Sulfate) 2 mg PRN Q2HR PRN IV SEVERE PAIN; Start at 21:00; Stop 06/08/18 at 06:39; Status DC Morphine Sulfate (Morphine Sulfate) 2 mg PRN Q2HR PRN IV SEVERE PAIN; Start 06/08/18 at 06:39; Stop 06/08/18 at 20:59; Status DC Amiodarone HCl (Cordarone) 200 mg DAILY PO Last administered on 06/10/18at 09:08 ; Start 06/08/18 at 12:00 Apixaban (Eliquis) 5 mg BID PO ; Start 06/08/18 at 12:00; Stop 06/08/18 at 15:30; Status DC Aspirin (Hung Aspirin) 325 mg DAILY PO Last administered on 06/10/18at 09:07; Start 06/08/18 at 12:00 Atorvastatin Calcium (Lipitor) 40 mg HS PO Last administered on 06/10/18at 21:37 ; Start 06/08/18 at 21:00 Furosemide (Lasix) 40 mg DAILY PO Last administered on 06/10/18 09:07; Start at 12:00 Acetaminophen/ Hydrocodone Bitart (Lortab 5/325) 1 tab PRN Q6HRS PRN PO back pain Last administered on 06/10/18at 16:28; Start 06/08/18 at 11:30 Insulin Glargine (Lantus) 30 units QHS SQ Last administered on 06/10/18 21:45; Start 06/08/18 at 21:00 Lisinopril (Prinivil) 20 mg DAILY PO Last administered on 06/10/18 09:08; Start 06/08/18 at 12:00 Metoprolol Succinate (Toprol Xl) 100 mg DAILY PO Last administered on 06/10/18 12:07; Start 06/08/18 at 12:00 Non-Formulary Medication (Budesonide/ Formoterol Fumarate (Symbicort 160-4.5 Mcg Inhaler)) 2 puff BID IH ; Start 06/08/18 at 21:00; Status UNV Diltiazem HCl (Cardizem 24hr Cd) 180 mg DAILY PO Last administered on 06/10/18 12:07; Start 06/08/18 at 12:00 Hydroxyzine Pamoate (Vistaril) 50 mg QMWF PO Last administered on 06/08/18 16: 49; Start 06/08/18 at 16:00 Non-Formulary Medication ([Albuterol Sulfate] ) 2.5 mg PRN Q4HRS PRN NEB SHORTNESS OF BREATH; Start 06/08/18 at 11:30; Status UNV Budesonide (Pulmicort) 0.5 mg RTBID NEB Last administered on 06/11/18 08:10; Start 06/08/18 at 12:00 Albuterol Sulfate (Ventolin Neb Soln) 2.5 mg RTQID NEB Last administered on 06/11 08:10; Start 06/08/18 at 12:00 Albuterol Sulfate (Ventolin Neb Soln) 2.5 mg PRN Q4HRS PRN NEB SHORTNESS OF BREATH; Start 06/08/18 at 11:30 Sodium Chloride 1,000 ml @ 1,000 mls/hr Q1H PRN IV hypotension; Start 06/08/18 at 12:22; Stop 06/08/18 at 18:21; Status DC Diphenhydramine HCl (Benadryl) 25 mg 1X PRN PRN IV ITCHING; Start 06/08/18 at 12 :30; Stop 06/09/18 at 12:29; Status DC Diphenhydramine HCl (Benadryl) 25 mg 1X PRN PRN IV ITCHING; Start 06/08/18 at 12 :30; Stop 06/09/18 at 12:29; Status DC Sodium Chloride 1,000 ml @ 400 mls/hr Q2H30M PRN IV PATENCY; Start 06/08/18 at 12:22; Stop 06/09/18 at 00:21; Status DC Info (PHARMACY MONITORING -- do not chart) 1 each PRN DAILY PRN MC SEE COMMENTS ; Start 06/08/18 at 12:30 Prednisone (Prednisone) 20 mg 1X ONCE PO Last administered on 06/08/18at 18:04; Start 06/08/18 at 18:00; Stop 06/08/18 at 18:01; Status DC Prednisone (Prednisone) 20 mg 1X ONCE PO Last administered on 06/08/18at 21:12; Start 06/08/18 at 22:00; Stop 06/08/18 at 22:01; Status DC Prednisone (Prednisone) 20 mg 1X ONCE PO Last administered on 06/09/18at 06:15; Start 06/09/18 at 06:00; Stop 06/09/18 at 06:01; Status DC Diphenhydramine HCl (Benadryl) 50 mg PRN 1X PRN PO COMMENTS Last administered on 06/09/18at 08:04; Start 06/08/18 at 14:45; Stop 06/09/18 at 14:44; Status DC Enoxaparin Sodium (Lovenox Per Pharmacy Treatment Dosing) 1 each PRN DAILY PRN MC SEE COMMENTS; Start 06/08/18 at 15:30; Status Cancel Iohexol (Omnipaque 350 Mg/ml) 90 ml 1X ONCE IV Last administered on 06/09/18at 08:56; Start 06/09/18 at 09:00; Stop 06/09/18 at 09:01; Status DC Info (CONTRAST GIVEN -- Rx MONITORING) 1 each PRN DAILY PRN MC SEE COMMENTS; Start 06/09/18 at 09:00; Stop 06/11/18 at 08:59; Status DC Diclofenac Sodium (Voltaren) 1 evgeny BID TP Last administered on 06/10/18at 21:38; Start 06/09/18 at 13:30 Heparin Sodium/ Dextrose 500 ml @ 0 mls/hr CONT PRN IV SEE I/O RECORD Last administered on 06/10/18at 12:14; Start 06/10/18 at 11:45; Stop 06/11/18 at 02:46; Status DC Heparin Sodium (Porcine) (Heparin Sodium) 1,700 unit PRN Q6HRS PRN IV FOR UFH LEVEL LESS THAN 0.2; Start 06/10/18 at 11:45 Info (Anti-Coagulation Monitoring By Pharmacy) 1 each PRN DAILY PRN MC SEE COMMENTS; Start 06/10/18 at 11:45 Sodium Chloride 250 ml @ 500 mls/hr 1X ONCE IV Last administered on 06/11/18at 03:00; Start 06/11/18 at 03:00; Stop 06/11/18 at 03:29; Status DC Dopamine HCl/ Dextrose 250 ml @ 5.19 mls/hr CONT PRN IV SEE I/O RECORD; Start 06/11/18 at 03:00 Ondansetron HCl (Zofran) 4 mg PRN Q6HRS PRN IV NAUSEA/VOMITING 1ST CHOICE Last administered on 06/11/18at 04:51; Start 06/11/18 at 03:15 Morphine Sulfate (Morphine Sulfate) 2 mg PRN Q4HRS PRN IV SEVERE PAIN; Start at 03:15 Sodium Chloride 250 ml @ 500 mls/hr 1X ONCE IV Last administered on 06/11/18at 03:30; Start 06/11/18 at 03:30; Stop 06/11/18 at 03:59; Status DC Iohexol (Omnipaque 350 Mg/ml) 90 ml 1X ONCE IV Last administered on 06/11/18at 04:02; Start 06/11/18 at 04:00; Stop 06/11/18 at 04:01; Status DC Diphenhydramine HCl (Benadryl) 25 mg 1X ONCE IV Last administered on 06/11/18at 04:15; Start 06/11/18 at 04:00; Stop 06/11/18 at 04:01; Status DC Info (CONTRAST GIVEN -- Rx MONITORING) 1 each PRN DAILY PRN MC SEE COMMENTS; Start 06/11/18 at 03:30; Stop 06/13/18 at 03:29 Heparin Sodium/ Dextrose 500 ml @ 0 mls/hr CONT PRN IV SEE I/O RECORD Last administered on 06/11/18at 05:01; Start 06/11/18 at 04:30 Morphine Sulfate (Morphine Sulfate) 2 mg PRN Q2HR PRN IV SEVERE PAIN Last administered on 06/11/18at 04:51; Start 06/11/18 at 04:30 Morphine Sulfate (Morphine Sulfate) 1 mg PRN Q2HR PRN IV MODERATE PAIN; Start 06/11/18 at 04:30 Active Scripts Active Amiodarone Hcl 200 Mg Tablet 200 Mg PO DAILY MDD 1 Eliquis (Apixaban) 5 Mg Tablet 5 Mg PO BID MDD ` [Albuterol Sulfate] 2.5 MG/3 ML Nebu 2.5 Mg NEB PRN Q4HRS PRN Reported Diltiazem 24HR Cd (Diltiazem Hcl) 180 Mg Cap.er.24h 180 Mg PO DAILY Lipitor (Atorvastatin Calcium) 40 Mg Tablet 40 Mg PO HS Hydrocodone-Acetamin 5-325 mg (Hydrocodone/Acetaminophen) 1 Each Tablet 1 Each PO PRN Q6HRS PRN Furosemide 40 Mg Tablet 40 Mg PO DAILY Symbicort 160-4.5 Mcg Inhaler (Budesonide/Formoterol Fumarate) 10.2 Gm Hfa.aer.ad 2 Puff IH BID Toprol Xl (Metoprolol Succinate) 100 Mg Tab.er.24h 100 Mg PO DAILY Proair Hfa Inhaler (Albuterol Sulfate) 8.5 Gm Hfa.aer.ad 1 Puff INH PRN Q6HRS PRN Marina-Jayme Tablet (Folic Acid/Vitamin B Comp W-C) 0.8 Mg Tablet 0.8 Mg PO DAILY Hydroxyzine Hcl 25 Mg Tablet 50 Mg PO QMWF Lisinopril 20 Mg Tablet 1 Tab PO DAILY Lantus Solostar (Insulin Glargine,Hum.rec.anlog) 100 Unit/1 Ml Insuln.pen 30 Unit SQ QHS Aspirin 325 Mg Tablet 1 Tab PO DAILY Vitals/I & O Vital Sign - Last 24 Hours 06/10/18 06/10/18 06/10/18 06/10/18 11:00 11:08 12:07 12:07 Temp 97.3 97.3 Pulse 61 61 61 Resp 18 B/P (MAP) 123/56 (78) 117/58 117/58 Pulse Ox 97 98 O2 Delivery Nasal Cannula Nasal Cannula O2 Flow Rate 3.0 3.0 06/10/18 06/10/18 06/10/18 06/10/18 15:00 15:59 16:28 17:55 Temp 97.7 97.7 Pulse 58 Resp 18 B/P (MAP) 117/57 (77) Pulse Ox 98 98 98 O2 Delivery Nasal Cannula Nasal Cannula Nasal Cannula Nasal Cannula O2 Flow Rate 3.0 3.0 3.0 3.0 06/10/18 06/10/18 06/10/18 06/10/18 19:06 19:15 20:00 22:53 Temp 98.3 97.6 98.3 97.6 Pulse 50 49 Resp 16 16 B/P (MAP) 98/48 (65) 100/45 (63) Pulse Ox 96 98 96 O2 Delivery Nasal Cannula Nasal Cannula Nasal Cannula Nasal Cannula O2 Flow Rate 3.0 3.0 3.0 3.0 06/11/18 06/11/18 06/11/18 06/11/18 04:00 04:51 05:00 06:00 Temp 97.6 97.6 Pulse 40 42 43 Resp 16 19 16 13 B/P (MAP) 91/43 (59) 101/47 (65) 115/50 (71) Pulse Ox 96 96 96 96 O2 Delivery Nasal Cannula Nasal Cannula Nasal Cannula Nasal Cannula O2 Flow Rate 3.0 3.0 3.0 3.0 06/11/18 06/11/18 06/11/18 06/11/18 07:00 08:00 08:00 08:12 Temp 97.0 97.0 Pulse 44 50 Resp 14 16 B/P (MAP) 108/46 (66) 117/48 (71) Pulse Ox 94 99 O2 Delivery Nasal Cannula Nasal Cannula Nasal Cannula Nasal Cannula O2 Flow Rate 3.0 3.0 3.0 5.0 06/11/18 09:00 Pulse 51 Resp 14 B/P (MAP) 118/57 (77) Pulse Ox 97 O2 Delivery Nasal Cannula O2 Flow Rate 3.0 Intake and Output 06/10/18 06/10/18 06/11/18 14:59 22:59 06:59 Intake Total 360 ml 520 ml 0 ml Balance 360 ml 520 ml 0 ml DEVIN JOHNSON MD Jun 11, 2018 09:51
--- NOTE | 2018-06-11 09:54 | PDOC ---
PULMONARY PROGRESS NOTES Subjective JUST GOT BACK FROM [facility] NO SOA SOME DIZZINESS Vitals Vital Signs Date Time Temp Pulse Resp B/P (MAP) Pulse Ox O2 Delivery O2 Flow Rate FiO2 06/11/18 09:00 51 14 118/57 (77) 97 Nasal Cannula 3.0 06/11/18 07:00 97.0 97.0 ROS: No Nausea, No Chest Pain, No Abdominal Pain General: Alert Lungs: Clear Cardiovascular: S1, S2 Abdomen: Soft, Non-tender, Other Neuro Exam: Alert Extremities: No Edema Skin: Warm Labs Laboratory Tests Test 06/09/18 11:20 06/09/18 17:31 06/09/18 21:48 06/10/18 04:15 Glucose (Fingerstick) 323 mg/dL (70-99) 181 mg/dL (70-99) 280 mg/dL (70-99) White Blood Count 7.3 x10^3/uL (4.0-11.0) Red Blood Count 3.52 x10^6/uL (3.50-5.40) Hemoglobin 11.1 g/dL (12.0-15.5) Hematocrit 35.8 % (36.0-47.0) Mean Corpuscular Volume 102 fL (79-100) Mean Corpuscular Hemoglobin 32 pg (25-35) Mean Corpuscular Hemoglobin Concent 31 g/dL (31-37) Red Cell Distribution Width 16.2 % (11.5-14.5) Platelet Count 227 x10^3/uL (140-400) Neutrophils (%) (Auto) 80 % (31-73) Lymphocytes (%) (Auto) 8 % (24-48) Monocytes (%) (Auto) 12 % (0-9) Eosinophils (%) (Auto) 0 % (0-3) Basophils (%) (Auto) 0 % (0-3) Neutrophils # (Auto) 5.9 x10^3uL (1.8-7.7) Lymphocytes # (Auto) 0.6 x10^3/uL (1.0-4.8) Monocytes # (Auto) 0.8 x10^3/uL (0.0-1.1) Eosinophils # (Auto) 0.0 x10^3/uL (0.0-0.7) Basophils # (Auto) 0.0 x10^3/uL (0.0-0.2) Sodium Level 138 mmol/L (136-145) Potassium Level 4.7 mmol/L (3.5-5.1) Chloride Level 102 mmol/L (98-107) Carbon Dioxide Level 27 mmol/L (21-32) Anion Gap 9 (6-14) Blood Urea Nitrogen 37 mg/dL (7-20) Creatinine 5.8 mg/dL (0.6-1.0) Estimated GFR (Cockcroft-Gault) 8.6 Glucose Level 238 mg/dL (70-99) Calcium Level 7.9 mg/dL (8.5-10.1) Test 06/10/18 07:42 06/10/18 11:35 06/10/18 17:44 06/10/18 18:10 Glucose (Fingerstick) 99 mg/dL (70-99) 69 mg/dL (70-99) 131 mg/dL (70-99) Heparin Anti-Xa Act, Unfractionated 0.24 IU/mL (0.30-0.70) Test 06/10/18 20:44 06/11/18 01:00 06/11/18 04:00 06/11/18 04:08 Glucose (Fingerstick) 117 mg/dL (70-99) 72 mg/dL (70-99) White Blood Count 5.1 x10^3/uL (4.0-11.0) Red Blood Count 3.62 x10^6/uL (3.50-5.40) Hemoglobin 11.4 g/dL (12.0-15.5) Hematocrit 37.2 % (36.0-47.0) Mean Corpuscular Volume 103 fL (79-100) Mean Corpuscular Hemoglobin 31 pg (25-35) Mean Corpuscular Hemoglobin Concent 31 g/dL (31-37) Red Cell Distribution Width 16.0 % (11.5-14.5) Platelet Count 230 x10^3/uL (140-400) Neutrophils (%) (Auto) 69 % (31-73) Lymphocytes (%) (Auto) 15 % (24-48) Monocytes (%) (Auto) 15 % (0-9) Eosinophils (%) (Auto) 1 % (0-3) Basophils (%) (Auto) 1 % (0-3) Neutrophils # (Auto) 3.6 x10^3uL (1.8-7.7) Lymphocytes # (Auto) 0.8 x10^3/uL (1.0-4.8) Monocytes # (Auto) 0.8 x10^3/uL (0.0-1.1) Eosinophils # (Auto) 0.0 x10^3/uL (0.0-0.7) Basophils # (Auto) 0.0 x10^3/uL (0.0-0.2) Prothrombin Time 13.5 SEC (11.7-14.0) Prothromb Time International Ratio 1.1 (0.8-1.1) Heparin Anti-Xa Act, Unfractionated 0.70 IU/mL (0.30-0.70) Sodium Level 140 mmol/L (136-145) Potassium Level 4.9 mmol/L (3.5-5.1) Chloride Level 104 mmol/L (98-107) Carbon Dioxide Level 26 mmol/L (21-32) Anion Gap 10 (6-14) Blood Urea Nitrogen 44 mg/dL (7-20) Creatinine 7.0 mg/dL (0.6-1.0) Estimated GFR (Cockcroft-Gault) 6.9 Glucose Level 102 mg/dL (70-99) Calcium Level 7.9 mg/dL (8.5-10.1) Troponin I Quantitative 0.059 ng/mL (0.000-0.055) 0.060 ng/mL (0.000-0.055) Laboratory Tests Test 06/10/18 11:35 06/10/18 17:44 06/10/18 18:10 06/10/18 20:44 Glucose (Fingerstick) 69 mg/dL (70-99) 131 mg/dL (70-99) 117 mg/dL (70-99) Heparin Anti-Xa Act, Unfractionated 0.24 IU/mL (0.30-0.70) Test 06/11/18 01:00 06/11/18 04:00 06/11/18 04:08 White Blood Count 5.1 x10^3/uL (4.0-11.0) Red Blood Count 3.62 x10^6/uL (3.50-5.40) Hemoglobin 11.4 g/dL (12.0-15.5) Hematocrit 37.2 % (36.0-47.0) Mean Corpuscular Volume 103 fL (79-100) Mean Corpuscular Hemoglobin 31 pg (25-35) Mean Corpuscular Hemoglobin Concent 31 g/dL (31-37) Red Cell Distribution Width 16.0 % (11.5-14.5) Platelet Count 230 x10^3/uL (140-400) Neutrophils (%) (Auto) 69 % (31-73) Lymphocytes (%) (Auto) 15 % (24-48) Monocytes (%) (Auto) 15 % (0-9) Eosinophils (%) (Auto) 1 % (0-3) Basophils (%) (Auto) 1 % (0-3) Neutrophils # (Auto) 3.6 x10^3uL (1.8-7.7) Lymphocytes # (Auto) 0.8 x10^3/uL (1.0-4.8) Monocytes # (Auto) 0.8 x10^3/uL (0.0-1.1) Eosinophils # (Auto) 0.0 x10^3/uL (0.0-0.7) Basophils # (Auto) 0.0 x10^3/uL (0.0-0.2) Prothrombin Time 13.5 SEC (11.7-14.0) Prothromb Time International Ratio 1.1 (0.8-1.1) Heparin Anti-Xa Act, Unfractionated 0.70 IU/mL (0.30-0.70) Sodium Level 140 mmol/L (136-145) Potassium Level 4.9 mmol/L (3.5-5.1) Chloride Level 104 mmol/L (98-107) Carbon Dioxide Level 26 mmol/L (21-32) Anion Gap 10 (6-14) Blood Urea Nitrogen 44 mg/dL (7-20) Creatinine 7.0 mg/dL (0.6-1.0) Estimated GFR (Cockcroft-Gault) 6.9 Glucose Level 102 mg/dL (70-99) Calcium Level 7.9 mg/dL (8.5-10.1) Troponin I Quantitative 0.059 ng/mL (0.000-0.055) 0.060 ng/mL (0.000-0.055) Glucose (Fingerstick) 72 mg/dL (70-99) Medications Active Scripts Medications Dose Route/Sig Max Daily Dose Days Date Category Diltiazem 24HR Cd (Diltiazem Hcl) 180 Mg Cap.er.24h 180 Mg PO DAILY 06/08/18 Reported Lipitor (Atorvastatin Calcium) 40 Mg Tablet 40 Mg PO HS 06/08/18 Reported Hydrocodone-Acetamin 5-325 mg (Hydrocodone/Acetaminophen) 1 Each Tablet 1 Each PO PRN Q6HRS PRN 06/08/18 Reported Furosemide 40 Mg Tablet 40 Mg PO DAILY 06/08/18 Reported Symbicort 160-4.5 Mcg Inhaler (Budesonide/Formoterol Fumarate) 10.2 Gm Hfa.aer.ad 2 Puff IH BID 06/08/18 Reported Toprol Xl (Metoprolol Succinate) 100 Mg Tab.er.24h 100 Mg PO DAILY 06/08/18 Reported Proair Hfa Inhaler (Albuterol Sulfate) 8.5 Gm Hfa.aer.ad 1 Puff INH PRN Q6HRS PRN 06/08/18 Reported Amiodarone Hcl 200 Mg Tablet 200 Mg PO DAILY MDD 1 03/24/18 Rx Eliquis (Apixaban) 5 Mg Tablet 5 Mg PO BID MDD ` 03/24/18 Rx Marina-Jayme Tablet (Folic Acid/Vitamin B Comp W-C) 0.8 Mg Tablet 0.8 Mg PO DAILY 03/21/18 Reported Hydroxyzine Hcl 25 Mg Tablet 50 Mg PO QMWF 03/21/18 Reported Lisinopril 20 Mg Tablet 1 Tab PO DAILY 11/06/17 Reported Lantus Solostar (Insulin Glargine,Hum.rec.anlog) 100 Unit/1 Ml Insuln.pen 30 Unit SQ QHS 09/03/15 Reported [Albuterol Sulfate] 2.5 MG/3 ML Nebu 2.5 Mg NEB PRN Q4HRS PRN 12/26/14 Rx Aspirin 325 Mg Tablet 1 Tab PO DAILY 01/25/14 Reported Impression . IMPRESSION: 1. Chronic respiratory failure. Respiratory status appears to be compensated. Continue oxygen supplementation. 2. 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 3. Coronary artery disease, status post previous cardiac catheterization and stent placement. 4. Recent CT revealing abdominal aortic aneurysm measuring 6 cm; the patient to be seen by cardiovascular surgeon. 5. Renal failure, on hemodialysis. 6. BRADYCARDIA Plan . S/P CATH RESULTS PENDING FOR BRADYCARDIA FOLLOW CARD INPUT SURGERY FOR AAA ONCE CARDIAC STATUS HAS STABILIZED RESP STATUS IS COMPENSATED WILL CONTINUE TO MONITOR FOR NOW EARL MARTINEZ MD Jun 11, 2018 09:54
[2018-06-11] MEDS ORDERED: LIDOCAINE 1% PF 2 ML VIAL. ONE (10:44)
[2018-06-11] MEDS ORDERED: IODIXANOL 320 MG/ML 100 ML VIAL. ONE (10:44)
[2018-06-11] MEDS: ANTI-COAG MONITOR BY PHARMACY. MC PRN ×2 (10:56→16:33)
[2018-06-11] MEDS ORDERED: LIDOCAINE 1% Multi-Dose 20 ML VIAL. ONE (10:59)
[2018-06-11] MEDS ORDERED: MIDAZOLAM HCL/PF 2 MG/2 ML VIAL. ONE (11:06)
[2018-06-11] MEDS ORDERED: FAMOTIDINE 20 MG/2 ML VIAL ONE (11:06)
[2018-06-11] MEDS ORDERED: fentaNYL PF VIAL 100 MCG/2 ML VIAL ONE (11:06)
[2018-06-11] MEDS ORDERED: diphenhydrAMINE 50 MG/ML VIAL ONE (11:06)
[2018-06-11] MEDS ORDERED: methylPREDNISolone SOD SUCC PF 125 MG/2 ML VIAL. ONE (11:06)
[2018-06-11] MEDS ORDERED: FAMOTIDINE 20 MG/2 ML VIAL IVP ONE (11:45)
[2018-06-11] MEDS ORDERED: methylPREDNISolone SOD SUCC PF 125 MG/2 ML VIAL. IV ONE (11:45)
[2018-06-11] MEDS ORDERED: diphenhydrAMINE 50 MG/ML VIAL IVP ONE (11:45)
[2018-06-11] MEDS ORDERED: IODIXANOL 320 MG/ML 100 ML VIAL. IART ONE (11:45)
[2018-06-11] MEDS ORDERED: LIDOCAINE 1% Multi-Dose 20 ML VIAL. INJ ONE (11:45)
--- NOTE | 2018-06-11 12:33 | PDOC ---
PROGRESS NOTES Chief Complaint Chief Complaint Abdominal aortic aneurysm Vasculopathy CAD s/p cardiac cath with stents CHF COPD Diabetes Hypertension, Hyperlipidemia End-stage renal disease, on dialysis Rotator cuff surgery Bradycardia History of Present Illness History of Present Illness Patient was seen in the cardiac laborer rags and discussed with Dr. Davis. Cath is clean. Awaiting endograft tomorrow. Patient is agreeable to the procedure. HD (M-W-F). Neph, Cards, Pulm following. Vitals Vitals Vital Signs Date Time Temp Pulse Resp B/P (MAP) Pulse Ox O2 Delivery O2 Flow Rate FiO2 06/11/18 11:46 58 19 100 Nasal Cannula 4.0 06/11/18 09:00 118/57 (77) 06/11/18 07:00 97.0 97.0 Physical Exam Physical Exam Deferred to preserve sterile field. Patient undergoing cath. Labs LABS Laboratory Tests Test 06/10/18 17:44 06/10/18 18:10 06/10/18 20:44 06/11/18 01:00 Glucose (Fingerstick) 131 mg/dL (70-99) 117 mg/dL (70-99) Heparin Anti-Xa Act, Unfractionated 0.24 IU/mL (0.30-0.70) 0.70 IU/mL (0.30-0.70) White Blood Count 5.1 x10^3/uL (4.0-11.0) Red Blood Count 3.62 x10^6/uL (3.50-5.40) Hemoglobin 11.4 g/dL (12.0-15.5) Hematocrit 37.2 % (36.0-47.0) Mean Corpuscular Volume 103 fL (79-100) Mean Corpuscular Hemoglobin 31 pg (25-35) Mean Corpuscular Hemoglobin Concent 31 g/dL (31-37) Red Cell Distribution Width 16.0 % (11.5-14.5) Platelet Count 230 x10^3/uL (140-400) Neutrophils (%) (Auto) 69 % (31-73) Lymphocytes (%) (Auto) 15 % (24-48) Monocytes (%) (Auto) 15 % (0-9) Eosinophils (%) (Auto) 1 % (0-3) Basophils (%) (Auto) 1 % (0-3) Neutrophils # (Auto) 3.6 x10^3uL (1.8-7.7) Lymphocytes # (Auto) 0.8 x10^3/uL (1.0-4.8) Monocytes # (Auto) 0.8 x10^3/uL (0.0-1.1) Eosinophils # (Auto) 0.0 x10^3/uL (0.0-0.7) Basophils # (Auto) 0.0 x10^3/uL (0.0-0.2) Prothrombin Time 13.5 SEC (11.7-14.0) Prothromb Time International Ratio 1.1 (0.8-1.1) Sodium Level 140 mmol/L (136-145) Potassium Level 4.9 mmol/L (3.5-5.1) Chloride Level 104 mmol/L (98-107) Carbon Dioxide Level 26 mmol/L (21-32) Anion Gap 10 (6-14) Blood Urea Nitrogen 44 mg/dL (7-20) Creatinine 7.0 mg/dL (0.6-1.0) Estimated GFR (Cockcroft-Gault) 6.9 Glucose Level 102 mg/dL (70-99) Calcium Level 7.9 mg/dL (8.5-10.1) Troponin I Quantitative 0.059 ng/mL (0.000-0.055) Test 06/11/18 04:00 06/11/18 04:08 Troponin I Quantitative 0.060 ng/mL (0.000-0.055) Glucose (Fingerstick) 72 mg/dL (70-99) Review of Systems Review of Systems Deferred to preserve sterile field. Patient undergoing cath. Assessment and Plan Assessmemt and Plan Assessment: Abdominal aortic aneurysm Vasculopathy CAD s/p cardiac cath with stents CHF COPD Diabetes Hypertension, Hyperlipidemia End-stage renal disease, on dialysis Rotator cuff surgery Bradycardia Plan: Patient scheduled for endograft tomorrow Continue to monitor in the ICU Recheck labs tomorrow Reviewed imaging CT of abdomen showed 5.1cm AAA table, possible segment of dissection flap, bibasilar airspace disease - edema vs pneumonia, generalized anascara, wall thickening of the ascending colon and hepatic flexure possible colitis, R sided nephrolithiasis, small amount of free pelvic fluid, high grade stenosis of L renal artery, diverticulosis and cardiomegaly Appreciate subspecialty input Continue home meds Comment Review of Relevant I have reviewed the following items mykel (where applicable) has been applied. Labs Laboratory Tests Test 06/09/18 17:31 06/09/18 21:48 06/10/18 04:15 06/10/18 07:42 Glucose (Fingerstick) 181 mg/dL (70-99) 280 mg/dL (70-99) 99 mg/dL (70-99) White Blood Count 7.3 x10^3/uL (4.0-11.0) Red Blood Count 3.52 x10^6/uL (3.50-5.40) Hemoglobin 11.1 g/dL (12.0-15.5) Hematocrit 35.8 % (36.0-47.0) Mean Corpuscular Volume 102 fL (79-100) Mean Corpuscular Hemoglobin 32 pg (25-35) Mean Corpuscular Hemoglobin Concent 31 g/dL (31-37) Red Cell Distribution Width 16.2 % (11.5-14.5) Platelet Count 227 x10^3/uL (140-400) Neutrophils (%) (Auto) 80 % (31-73) Lymphocytes (%) (Auto) 8 % (24-48) Monocytes (%) (Auto) 12 % (0-9) Eosinophils (%) (Auto) 0 % (0-3) Basophils (%) (Auto) 0 % (0-3) Neutrophils # (Auto) 5.9 x10^3uL (1.8-7.7) Lymphocytes # (Auto) 0.6 x10^3/uL (1.0-4.8) Monocytes # (Auto) 0.8 x10^3/uL (0.0-1.1) Eosinophils # (Auto) 0.0 x10^3/uL (0.0-0.7) Basophils # (Auto) 0.0 x10^3/uL (0.0-0.2) Sodium Level 138 mmol/L (136-145) Potassium Level 4.7 mmol/L (3.5-5.1) Chloride Level 102 mmol/L (98-107) Carbon Dioxide Level 27 mmol/L (21-32) Anion Gap 9 (6-14) Blood Urea Nitrogen 37 mg/dL (7-20) Creatinine 5.8 mg/dL (0.6-1.0) Estimated GFR (Cockcroft-Gault) 8.6 Glucose Level 238 mg/dL (70-99) Calcium Level 7.9 mg/dL (8.5-10.1) Test 06/10/18 11:35 06/10/18 17:44 06/10/18 18:10 06/10/18 20:44 Glucose (Fingerstick) 69 mg/dL (70-99) 131 mg/dL (70-99) 117 mg/dL (70-99) Heparin Anti-Xa Act, Unfractionated 0.24 IU/mL (0.30-0.70) Test 06/11/18 01:00 06/11/18 04:00 06/11/18 04:08 White Blood Count 5.1 x10^3/uL (4.0-11.0) Red Blood Count 3.62 x10^6/uL (3.50-5.40) Hemoglobin 11.4 g/dL (12.0-15.5) Hematocrit 37.2 % (36.0-47.0) Mean Corpuscular Volume 103 fL (79-100) Mean Corpuscular Hemoglobin 31 pg (25-35) Mean Corpuscular Hemoglobin Concent 31 g/dL (31-37) Red Cell Distribution Width 16.0 % (11.5-14.5) Platelet Count 230 x10^3/uL (140-400) Neutrophils (%) (Auto) 69 % (31-73) Lymphocytes (%) (Auto) 15 % (24-48) Monocytes (%) (Auto) 15 % (0-9) Eosinophils (%) (Auto) 1 % (0-3) Basophils (%) (Auto) 1 % (0-3) Neutrophils # (Auto) 3.6 x10^3uL (1.8-7.7) Lymphocytes # (Auto) 0.8 x10^3/uL (1.0-4.8) Monocytes # (Auto) 0.8 x10^3/uL (0.0-1.1) Eosinophils # (Auto) 0.0 x10^3/uL (0.0-0.7) Basophils # (Auto) 0.0 x10^3/uL (0.0-0.2) Prothrombin Time 13.5 SEC (11.7-14.0) Prothromb Time International Ratio 1.1 (0.8-1.1) Heparin Anti-Xa Act, Unfractionated 0.70 IU/mL (0.30-0.70) Sodium Level 140 mmol/L (136-145) Potassium Level 4.9 mmol/L (3.5-5.1) Chloride Level 104 mmol/L (98-107) Carbon Dioxide Level 26 mmol/L (21-32) Anion Gap 10 (6-14) Blood Urea Nitrogen 44 mg/dL (7-20) Creatinine 7.0 mg/dL (0.6-1.0) Estimated GFR (Cockcroft-Gault) 6.9 Glucose Level 102 mg/dL (70-99) Calcium Level 7.9 mg/dL (8.5-10.1) Troponin I Quantitative 0.059 ng/mL (0.000-0.055) 0.060 ng/mL (0.000-0.055) Glucose (Fingerstick) 72 mg/dL (70-99) Laboratory Tests Test 06/10/18 17:44 06/10/18 18:10 06/10/18 20:44 06/11/18 01:00 Glucose (Fingerstick) 131 mg/dL (70-99) 117 mg/dL (70-99) Heparin Anti-Xa Act, Unfractionated 0.24 IU/mL (0.30-0.70) 0.70 IU/mL (0.30-0.70) White Blood Count 5.1 x10^3/uL (4.0-11.0) Red Blood Count 3.62 x10^6/uL (3.50-5.40) Hemoglobin 11.4 g/dL (12.0-15.5) Hematocrit 37.2 % (36.0-47.0) Mean Corpuscular Volume 103 fL (79-100) Mean Corpuscular Hemoglobin 31 pg (25-35) Mean Corpuscular Hemoglobin Concent 31 g/dL (31-37) Red Cell Distribution Width 16.0 % (11.5-14.5) Platelet Count 230 x10^3/uL (140-400) Neutrophils (%) (Auto) 69 % (31-73) Lymphocytes (%) (Auto) 15 % (24-48) Monocytes (%) (Auto) 15 % (0-9) Eosinophils (%) (Auto) 1 % (0-3) Basophils (%) (Auto) 1 % (0-3) Neutrophils # (Auto) 3.6 x10^3uL (1.8-7.7) Lymphocytes # (Auto) 0.8 x10^3/uL (1.0-4.8) Monocytes # (Auto) 0.8 x10^3/uL (0.0-1.1) Eosinophils # (Auto) 0.0 x10^3/uL (0.0-0.7) Basophils # (Auto) 0.0 x10^3/uL (0.0-0.2) Prothrombin Time 13.5 SEC (11.7-14.0) Prothromb Time International Ratio 1.1 (0.8-1.1) Sodium Level 140 mmol/L (136-145) Potassium Level 4.9 mmol/L (3.5-5.1) Chloride Level 104 mmol/L (98-107) Carbon Dioxide Level 26 mmol/L (21-32) Anion Gap 10 (6-14) Blood Urea Nitrogen 44 mg/dL (7-20) Creatinine 7.0 mg/dL (0.6-1.0) Estimated GFR (Cockcroft-Gault) 6.9 Glucose Level 102 mg/dL (70-99) Calcium Level 7.9 mg/dL (8.5-10.1) Troponin I Quantitative 0.059 ng/mL (0.000-0.055) Test 06/11/18 04:00 06/11/18 04:08 Troponin I Quantitative 0.060 ng/mL (0.000-0.055) Glucose (Fingerstick) 72 mg/dL (70-99) Medications Current Medications Sodium Chloride 1,000 ml @ 100 mls/hr Q10H IV Last administered on 06/07/18at 19:56; Start 06/07/18 at 19:18; Stop 06/08/18 at 05:17; Status DC Ondansetron HCl (Zofran) 4 mg PRN Q8HRS PRN IV NAUSEA/VOMITING 1ST CHOICE; Start 06/07/18 at 21:00; Stop 06/08/18 at 20:59; Status DC Morphine Sulfate (Morphine Sulfate) 2 mg PRN Q2HR PRN IV SEVERE PAIN; Start at 21:00; Stop 06/08/18 at 06:39; Status DC Morphine Sulfate (Morphine Sulfate) 2 mg PRN Q2HR PRN IV SEVERE PAIN; Start 06/08/18 at 06:39; Stop 06/08/18 at 20:59; Status DC Amiodarone HCl (Cordarone) 200 mg DAILY PO Last administered on 06/10/18 09:08 ; Start 06/08/18 at 12:00 Apixaban (Eliquis) 5 mg BID PO ; Start 06/08/18 at 12:00; Stop 06/08/18 at 15:30; Status DC Aspirin (Hung Aspirin) 325 mg DAILY PO Last administered on 06/10/18 09:07; Start 06/08/18 at 12:00 Atorvastatin Calcium (Lipitor) 40 mg HS PO Last administered on 06/10/18 21:37 ; Start 06/08/18 at 21:00 Furosemide (Lasix) 40 mg DAILY PO Last administered on 06/10/18 09:07; Start at 12:00 Acetaminophen/ Hydrocodone Bitart (Lortab 5/325) 1 tab PRN Q6HRS PRN PO back pain Last administered on 06/10/18 16:28; Start 06/08/18 at 11:30 Insulin Glargine (Lantus) 30 units QHS SQ Last administered on 06/10/18 21:45; Start 06/08/18 at 21:00 Lisinopril (Prinivil) 20 mg DAILY PO Last administered on 06/10/18 09:08; Start 06/08/18 at 12:00 Metoprolol Succinate (Toprol Xl) 100 mg DAILY PO Last administered on 06/10/18 12:07; Start 06/08/18 at 12:00 Non-Formulary Medication (Budesonide/ Formoterol Fumarate (Symbicort 160-4.5 Mcg Inhaler)) 2 puff BID IH ; Start 06/08/18 at 21:00; Status UNV Diltiazem HCl (Cardizem 24hr Cd) 180 mg DAILY PO Last administered on 3/3/19at 12:07; Start 06/08/18 at 12:00 Hydroxyzine Pamoate (Vistaril) 50 mg QMWF PO Last administered on 06/08/18at 16: 49; Start 06/08/18 at 16:00 Non-Formulary Medication ([Albuterol Sulfate] ) 2.5 mg PRN Q4HRS PRN NEB SHORTNESS OF BREATH; Start 06/08/18 at 11:30; Status UNV Budesonide (Pulmicort) 0.5 mg RTBID NEB Last administered on 06/11/18at 08:10; Start 06/08/18 at 12:00 Albuterol Sulfate (Ventolin Neb Soln) 2.5 mg RTQID NEB Last administered on 06/11at 08:10; Start 06/08/18 at 12:00 Albuterol Sulfate (Ventolin Neb Soln) 2.5 mg PRN Q4HRS PRN NEB SHORTNESS OF BREATH; Start 06/08/18 at 11:30 Sodium Chloride 1,000 ml @ 1,000 mls/hr Q1H PRN IV hypotension; Start 06/08/18 at 12:22; Stop 06/08/18 at 18:21; Status DC Diphenhydramine HCl (Benadryl) 25 mg 1X PRN PRN IV ITCHING; Start 06/08/18 at 12 :30; Stop 06/09/18 at 12:29; Status DC Diphenhydramine HCl (Benadryl) 25 mg 1X PRN PRN IV ITCHING; Start 06/08/18 at 12 :30; Stop 06/09/18 at 12:29; Status DC Sodium Chloride 1,000 ml @ 400 mls/hr Q2H30M PRN IV PATENCY; Start 06/08/18 at 12:22; Stop 06/09/18 at 00:21; Status DC Info (PHARMACY MONITORING -- do not chart) 1 each PRN DAILY PRN MC SEE COMMENTS ; Start 06/08/18 at 12:30 Prednisone (Prednisone) 20 mg 1X ONCE PO Last administered on 06/08/18at 18:04; Start 06/08/18 at 18:00; Stop 06/08/18 at 18:01; Status DC Prednisone (Prednisone) 20 mg 1X ONCE PO Last administered on 06/08/18at 21:12; Start 06/08/18 at 22:00; Stop 06/08/18 at 22:01; Status DC Prednisone (Prednisone) 20 mg 1X ONCE PO Last administered on 06/09/18at 06:15; Start 06/09/18 at 06:00; Stop 06/09/18 at 06:01; Status DC Diphenhydramine HCl (Benadryl) 50 mg PRN 1X PRN PO COMMENTS Last administered on 06/09/18at 08:04; Start 06/08/18 at 14:45; Stop 06/09/18 at 14:44; Status DC Enoxaparin Sodium (Lovenox Per Pharmacy Treatment Dosing) 1 each PRN DAILY PRN MC SEE COMMENTS; Start 06/08/18 at 15:30; Status Cancel Iohexol (Omnipaque 350 Mg/ml) 90 ml 1X ONCE IV Last administered on 06/09/18at 08:56; Start 06/09/18 at 09:00; Stop 06/09/18 at 09:01; Status DC Info (CONTRAST GIVEN -- Rx MONITORING) 1 each PRN DAILY PRN MC SEE COMMENTS; Start 06/09/18 at 09:00; Stop 06/11/18 at 08:59; Status DC Diclofenac Sodium (Voltaren) 1 evgeny BID TP Last administered on 06/10/18at 21:38; Start 06/09/18 at 13:30 Heparin Sodium/ Dextrose 500 ml @ 0 mls/hr CONT PRN IV SEE I/O RECORD Last administered on 06/10/18at 12:14; Start 06/10/18 at 11:45; Stop 06/11/18 at 02:46; Status DC Heparin Sodium (Porcine) (Heparin Sodium) 1,700 unit PRN Q6HRS PRN IV FOR UFH LEVEL LESS THAN 0.2; Start 06/10/18 at 11:45 Info (Anti-Coagulation Monitoring By Pharmacy) 1 each PRN DAILY PRN MC SEE COMMENTS Last administered on 06/11/18at 10:56; Start 06/10/18 at 11:45 Sodium Chloride 250 ml @ 500 mls/hr 1X ONCE IV Last administered on 06/11/18at 03:00; Start 06/11/18 at 03:00; Stop 06/11/18 at 03:29; Status DC Dopamine HCl/ Dextrose 250 ml @ 5.19 mls/hr CONT PRN IV SEE I/O RECORD; Start 06/11/18 at 03:00 Ondansetron HCl (Zofran) 4 mg PRN Q6HRS PRN IV NAUSEA/VOMITING 1ST CHOICE Last administered on 06/11/18at 04:51; Start 06/11/18 at 03:15 Morphine Sulfate (Morphine Sulfate) 2 mg PRN Q4HRS PRN IV SEVERE PAIN; Start at 03:15; Stop 06/11/18 at 10:41; Status DC Sodium Chloride 250 ml @ 500 mls/hr 1X ONCE IV Last administered on 06/11/18at 03:30; Start 06/11/18 at 03:30; Stop 06/11/18 at 03:59; Status DC Iohexol (Omnipaque 350 Mg/ml) 90 ml 1X ONCE IV Last administered on 06/11/18at 04:02; Start 06/11/18 at 04:00; Stop 06/11/18 at 04:01; Status DC Diphenhydramine HCl (Benadryl) 25 mg 1X ONCE IV Last administered on 06/11/18at 04:15; Start 06/11/18 at 04:00; Stop 06/11/18 at 04:01; Status DC Info (CONTRAST GIVEN -- Rx MONITORING) 1 each PRN DAILY PRN MC SEE COMMENTS; Start 06/11/18 at 03:30; Stop 06/13/18 at 03:29 Heparin Sodium/ Dextrose 500 ml @ 0 mls/hr CONT PRN IV SEE I/O RECORD Last administered on 06/11/18at 05:01; Start 06/11/18 at 04:30 Morphine Sulfate (Morphine Sulfate) 2 mg PRN Q2HR PRN IV SEVERE PAIN Last administered on 06/11/18at 04:51; Start 06/11/18 at 04:30 Morphine Sulfate (Morphine Sulfate) 1 mg PRN Q2HR PRN IV MODERATE PAIN; Start 06/11/18 at 04:30 Iodixanol (Visipaque 320) 100 ml STK-MED ONCE .ROUTE ; Start 06/11/18 at 10:44; Stop 06/11/18 at 10:45; Status DC Lidocaine HCl (Xylocaine-Mpf 1% 2ml Vial) 2 ml STK-MED ONCE .ROUTE ; Start at 10:44; Stop 06/11/18 at 10:45; Status DC Heparin Sodium/ Sodium Chloride 1,000 ml @ As Directed STK-MED ONCE .ROUTE ; Start 06/11/18 at 10:45; Stop 06/11/18 at 10:46; Status DC Heparin Sodium (Porcine) 5000 unit/Sodium Chloride 505 ml @ 505 mls/hr 1X ONCE IRR ; Start 06/12/18 at 06:00; Stop 06/12/18 at 06:59 Cefazolin Sodium 1 gm/Sodium Chloride 500 ml @ 500 mls/hr 1X ONCE IRR ; Start 06/12/18 at 06:00; Stop 06/12/18 at 06:59 Lidocaine HCl (Lidocaine 1% 20ml Vial) 20 ml STK-MED ONCE .ROUTE ; Start at 10:59; Stop 06/11/18 at 11:00; Status DC Methylprednisolone Sodium Succinate (SOLU-Medrol 125MG VIAL) 125 mg STK-MED ONCE .ROUTE ; Start 06/11/18 at 11:06; Stop 06/11/18 at 11:07; Status DC Fentanyl Citrate (Fentanyl 2ml Vial) 100 mcg STK-MED ONCE .ROUTE ; Start at 11:06; Stop 06/11/18 at 11:07; Status DC Midazolam HCl (Versed) 2 mg STK-MED ONCE .ROUTE ; Start 06/11/18 at 11:06; Stop 06/11/18 at 11:07; Status DC Famotidine (Pepcid Vial) 20 mg STK-MED ONCE .ROUTE ; Start 06/11/18 at 11:06; Stop 06/11/18 at 11:07; Status DC Diphenhydramine HCl (Benadryl) 50 mg STK-MED ONCE .ROUTE ; Start 06/11/18 at 11: 06; Stop 06/11/18 at 11:07; Status DC Heparin Sodium/ Sodium Chloride (HEPARIN for ARTERIAL LINE FLUSH) 1,000 unit 1X ONCE IART Last administered on 06/11/18at 11:42; Start 06/11/18 at 11:45; Stop 06/11/18 at 11:46; Status DC Iodixanol (Visipaque 320) 104 ml 1X ONCE IART Last administered on 06/11/18at 11 :42; Start 06/11/18 at 11:45; Stop 06/11/18 at 11:46; Status DC Lidocaine HCl (Lidocaine 1% 20ml Vial) 15 ml 1X ONCE INJ Last administered on 06/11/18at 11:43; Start 06/11/18 at 11:45; Stop 06/11/18 at 11:46; Status DC Diphenhydramine HCl (Benadryl) 25 mg 1X ONCE IVP Last administered on at 11:43; Start 06/11/18 at 11:45; Stop 06/11/18 at 11:46; Status DC Methylprednisolone Sodium Succinate (SOLU-Medrol 125MG VIAL) 125 mg 1X ONCE IV Last administered on 06/11/18at 11:43; Start 06/11/18 at 11:45; Stop 06/11/18 at 11:46; Status DC Famotidine (Pepcid Vial) 20 mg 1X ONCE IVP Last administered on 06/11/18at 11:18 ; Start 06/11/18 at 11:45; Stop 06/11/18 at 11:46; Status DC Active Scripts Active Amiodarone Hcl 200 Mg Tablet 200 Mg PO DAILY MDD 1 Eliquis (Apixaban) 5 Mg Tablet 5 Mg PO BID MDD ` [Albuterol Sulfate] 2.5 MG/3 ML Nebu 2.5 Mg NEB PRN Q4HRS PRN Reported Diltiazem 24HR Cd (Diltiazem Hcl) 180 Mg Cap.er.24h 180 Mg PO DAILY Lipitor (Atorvastatin Calcium) 40 Mg Tablet 40 Mg PO HS Hydrocodone-Acetamin 5-325 mg (Hydrocodone/Acetaminophen) 1 Each Tablet 1 Each PO PRN Q6HRS PRN Furosemide 40 Mg Tablet 40 Mg PO DAILY Symbicort 160-4.5 Mcg Inhaler (Budesonide/Formoterol Fumarate) 10.2 Gm Hfa.aer.ad 2 Puff IH BID Toprol Xl (Metoprolol Succinate) 100 Mg Tab.er.24h 100 Mg PO DAILY Proair Hfa Inhaler (Albuterol Sulfate) 8.5 Gm Hfa.aer.ad 1 Puff INH PRN Q6HRS PRN Marina-Jayme Tablet (Folic Acid/Vitamin B Comp W-C) 0.8 Mg Tablet 0.8 Mg PO DAILY Hydroxyzine Hcl 25 Mg Tablet 50 Mg PO QMWF Lisinopril 20 Mg Tablet 1 Tab PO DAILY Lantus Solostar (Insulin Glargine,Hum.rec.anlog) 100 Unit/1 Ml Insuln.pen 30 Unit SQ QHS Aspirin 325 Mg Tablet 1 Tab PO DAILY Vitals/I & O Vital Sign - Last 24 Hours 06/10/18 06/10/18 06/10/18 06/10/18 15:00 15:59 16:28 17:55 Temp 97.7 97.7 Pulse 58 Resp 18 B/P (MAP) 117/57 (77) Pulse Ox 98 98 98 O2 Delivery Nasal Cannula Nasal Cannula Nasal Cannula Nasal Cannula O2 Flow Rate 3.0 3.0 3.0 3.0 06/10/18 06/10/18 06/10/18 06/10/18 19:06 19:15 20:00 22:53 Temp 98.3 97.6 98.3 97.6 Pulse 50 49 Resp 16 16 B/P (MAP) 98/48 (65) 100/45 (63) Pulse Ox 96 98 96 O2 Delivery Nasal Cannula Nasal Cannula Nasal Cannula Nasal Cannula O2 Flow Rate 3.0 3.0 3.0 3.0 06/11/18 06/11/18 06/11/18 06/11/18 04:00 04:51 05:00 06:00 Temp 97.6 97.6 Pulse 40 42 43 Resp 16 19 16 13 B/P (MAP) 91/43 (59) 101/47 (65) 115/50 (71) Pulse Ox 96 96 96 96 O2 Delivery Nasal Cannula Nasal Cannula Nasal Cannula Nasal Cannula O2 Flow Rate 3.0 3.0 3.0 3.0 06/11/18 06/11/18 06/11/18 06/11/18 07:00 08:00 08:00 08:12 Temp 97.0 97.0 Pulse 44 50 Resp 14 16 B/P (MAP) 108/46 (66) 117/48 (71) Pulse Ox 94 99 O2 Delivery Nasal Cannula Nasal Cannula Nasal Cannula Nasal Cannula O2 Flow Rate 3.0 3.0 3.0 5.0 06/11/18 06/11/18 09:00 11:46 Pulse 51 58 Resp 14 19 B/P (MAP) 118/57 (77) Pulse Ox 97 100 O2 Delivery Nasal Cannula Nasal Cannula O2 Flow Rate 3.0 4.0 Intake and Output 06/10/18 06/10/18 06/11/18 15:00 23:00 07:00 Intake Total 360 ml 520 ml 0 ml Balance 360 ml 520 ml 0 ml YULIA DE ANDA III DO Jun 11, 2018 12:33
--- NOTE | 2018-06-11 12:38 | CARD ---
MR#: [id number] Date of Study: 06/11/2018 Ordering Physician: SUDHEER ROBLES, Referring Physician: SUDHEER ROBLES, Tech: RT Raji (R) APPROVED REPORT Technologist: RT Raji (R) Nurse: Lakesha Quiñones R.N. Procedure(s) performed: Left heart catheterization, selective coronary angiography and left ventricul ography Sedation Time: 27 Minutes INDICATION The indication(s) include : Unstable angina, preoperative evaluation, . [facility] Clinical Frailty Scale [facility] Clinical Frailty Scale: Mildly Frail Heart Failure Heart Failure: Yes If Yes, Newly Diagnosed: Yes If Yes, HF Type: Systolic If Yes, NYHA Class: Class II CASE TECHNIQUE During this case, Fluoroscopy and low osmolar contrast were used for imaging. PROCEDURE NARRATIVE After explaining the risks, benefits and alternative options, informed consent was obtained from lula ent. Patient was brought to the cardiac Rn Cardiovascular and her right groin was prepped and draped in the us ual fashion. 15 mL of 2% lidocaine was infiltrated into the skin and subcutaneous tissues for local a nesthesia. Arterial access was obtained the right common femoral artery and 6 Bengali sheath was inser mu. 6 Bengali JL4 and 6 Bengali JR4 catheters were used to perform selective angiography of the left a nd right coronary arteries. 6 Bengali pigtail catheter was used to perform left ventriculography. Lula ent tolerated the procedure well. Hemostasis was achieved using mynx closure device. There were no im mediate complications. FINDINGS 1. Hemodynamics: Elevated left ventricle end-diastolic pressure of 22 mmHg. No pullback gradient ac ross the aortic valve. 2. Left ventriculography: Posterobasal wall hypokinesis with ejection fraction estimated at 45%. No significant mitral regurgitation seen. 3. Coronary angiography: a. The left main coronary artery arose from the left sinus of Valsalva, gave rise to the left anteri or descending and left circumflex arteries and did not show any significant stenosis. b. The left anterior descending artery showed 30% stenosis in the midsegment. c. The left circumflex artery did not show any significant stenosis. d. The right coronary artery was a large and dominant vessel arising from the right sinus of Valsalv a that showed 30% in-stent restenosis involving the distal segment. Conclusion 1. Nonobstructive coronary artery disease with 30% in-stent restenosis involving the distal segment of the right coronary artery 2. Posterobasal wall hypokinesis with ejection fraction estimated at 45%. Recommendations Medical Therapy Signed by : Jeb Davis, Electronically Approved : 06/11/2018 12:38:16
--- NOTE | 2018-06-11 12:41 | PDOC ---
MODERATE SEDATION ASSESSMENT RISKS/ALTERNATIVES Risks/Alternatives Risks and alternatives of this type of sedation and procedure discussed with: RISK/ALTERNATIVES: Patient H & P ON CHART H & P H & P on chart and reviewed for co-morbid conditions and appropriate labs. H&P ON CHART: Yes STATUS PREG STATUS ASSESSED: N/A MEDS/ALLERGIES REVIEWED Meds/Allergies Reviewed Medications and Allergies including time and route of recently administered narcotics and sedatives. MEDS/ALLERGIES REVIEWED: Yes ASA RATING ASA RATING: III AIRWAY ASSESSMENT Airway Assessment Airway patency, oral function limitations, presence of caps, crowns, dentures, partials, and ability to extend neck assessed. AIRWAY ASSESSMENT: Yes MALLAMPATI SCORE MALLAMPATI SCORE: II PRE-SEDATION ASSESSMENT PRE-SEDATION ASSESSMENT: Yes FRANK REED MD Jun 11, 2018 12:41
[2018-06-11] MEDS ORDERED: 0.9 % SODIUM CHLORIDE 10 ML DISP.SYRIN. IV PRN (12:45)
[2018-06-11] MEDS: AMIODARONE HCL 200 MG TABLET. PO SCH (12:50)
--- NOTE | 2018-06-11 13:05 | NUR ---
SS following for discharge planning. SS reviewed pt chart. Pt is from home with spouse and is currently requiring oxygen. PT/OT ordered but no evaluations at this time. SS will await PT/OT evaluations and recommendations and will proceed accordingly with discharge planning.
[2018-06-11] MEDS ORDERED: IV NORMAL SALINE 1000ML BAG 1,000 ML IV PRN ×2 (13:48)
[2018-06-11] MEDS ORDERED: ALBUMIN HUMAN 25% 200 ML IV PRN (14:00)
[2018-06-11] MEDS ORDERED: DIALYSIS PATIENT. MC PRN ×2 (14:00)
[2018-06-11] MEDS ORDERED: DEXTROSE 50% 25 GM / 50ML DISP.SYRIN. IV ONE ×2 (14:00→14:08)
--- NOTE | 2018-06-11 15:13 | PDOC ---
SUBJECTIVE ROS Transferred to ICU, rapid response last night - bradycardia, hypotension, nausea, and chest pain. Stable on HD, no complaints currently OBJECTIVE Vital Signs Vital Signs Date Time Temp Pulse Resp B/P (MAP) Pulse Ox O2 Delivery O2 Flow Rate FiO2 06/11/18 13:06 58 18 135/61 (85) Nasal Cannula 3.0 06/11/18 12:00 98.2 98.2 06/11/18 11:46 100 I & 0 Intake and Output 06/11/18 06:59 Intake Total 880 ml Balance 880 ml Intake Oral 880 ml # Voids 1 PHYSICAL EXAM Physical Exam GEN: Awake, Oriented x [], In [] distress EYES: Vision Unchanged, Conjunctiva Normal EN: No EN Drainage, Mucous Membranes [] NECK: [] JVD, [] JVP, Supple, [] Thyromegaly CVS: S1S2, [] Murmur, No Gallop, No Rub,[] Edema RESP: [] Rales, [] Rhonchi,[] Acc. 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- asymptomatic 5.9cm likely endovascular stent graft repair Moderate carotid stenosis CAD s/p cardiac cath with stents CHF- compensated Diabetes- as per Primary COMMENT/RELEVANT DATA Meds Current Medications Medications (Trade) Dose Ordered Sig/Eric Start Time Stop Time Status Last Admin Dose Admin Acetaminophen/ Hydrocodone Bitart (Lortab 5/325) 1 tab PRN Q6HRS PRN 06/08/18 11:30 06/10/18 16:28 1 TAB Albumin Human 200 ml @ 200 mls/hr 1X PRN PRN 06/11/18 14:00 06/11/18 19:59 Albuterol Sulfate (Ventolin Neb Soln) 2.5 mg PRN Q4HRS PRN 06/08/18 11:30 Amiodarone HCl (Cordarone) 200 mg DAILY 06/08/18 12:00 06/11/18 12:50 200 MG Apixaban (Eliquis) 5 mg BID 06/08/18 12:00 06/08/18 15:30 DC Aspirin (Hung Aspirin) 325 mg DAILY 06/08/18 12:00 06/10/18 09:07 325 MG Atorvastatin Calcium (Lipitor) 40 mg HS 06/08/18 21:00 06/10/18 21:37 40 MG Budesonide (Pulmicort) 0.5 mg RTBID 06/08/18 12:00 06/11/18 08:10 0.5 MG Cefazolin Sodium 1 gm/Sodium Chloride 500 ml @ 500 mls/hr 1X ONCE 06/12/18 06:00 06/12/18 06:59 Cefazolin Sodium/ Dextrose 50 ml @ 100 mls/hr 1X ONCE 06/12/18 12:00 06/12/18 12:29 Dextrose (Dextrose 50%-Water Syringe) 25 gm STK-MED ONCE 06/11/18 14:08 06/11/18 14:12 DC Diclofenac Sodium (Voltaren) 1 evgeny BID 06/09/18 13:30 06/10/18 21:38 1 EVGENY Diltiazem HCl (Cardizem 24hr Cd) 180 mg DAILY 06/08/18 12:00 06/10/18 12:07 180 MG Diphenhydramine HCl (Benadryl) 25 mg 1X ONCE 06/11/18 11:45 06/11/18 11:46 DC 06/11/18 11:43 25 MG Dopamine HCl/ Dextrose 250 ml @ 5.19 mls/hr CONT PRN 06/11/18 03:00 Enoxaparin Sodium (Lovenox Per Pharmacy Treatment Dosing) 1 each PRN DAILY PRN 06/08/18 15:30 Cancel Famotidine (Pepcid Vial) 20 mg 1X ONCE 06/11/18 11:45 06/11/18 11:46 DC 06/11/18 11:18 20 MG Fentanyl Citrate (Fentanyl 2ml Vial) 50 mcg PRN Q5MIN PRN 06/12/18 07:00 06/13/18 06:59 Furosemide (Lasix) 40 mg DAILY 06/08/18 12:00 06/10/18 09:07 40 MG Heparin Sodium (Porcine) (Heparin Sodium) 1,700 unit PRN Q6HRS PRN 06/10/18 11:45 Heparin Sodium (Porcine) 5000 unit/Sodium Chloride 505 ml @ 505 mls/hr 1X ONCE 06/12/18 06:00 06/12/18 06:59 Heparin Sodium/ Dextrose 500 ml @ 0 mls/hr CONT PRN 06/11/18 04:30 06/11/18 05:01 16.6 MLS/HR Heparin Sodium/ Sodium Chloride (HEPARIN for ARTERIAL LINE FLUSH) 1,000 unit 1X ONCE 06/11/18 11:45 06/11/18 11:46 DC 06/11/18 11:42 1,000 UNIT Hydromorphone HCl (Dilaudid) 0.5 mg PRN Q10MIN PRN 06/12/18 07:00 06/13/18 06:59 Hydroxyzine Pamoate (Vistaril) 50 mg QMWF 06/08/18 16:00 06/08/18 16:49 50 MG Info (Anti-Coagulation Monitoring By Pharmacy) 1 each PRN DAILY PRN 06/10/18 11:45 06/11/18 10:56 1 EACH Info (CONTRAST GIVEN -- Rx MONITORING) 1 each PRN DAILY PRN 06/11/18 03:30 06/13/18 03:29 Info (PHARMACY MONITORING -- do not chart) 1 each PRN DAILY PRN 06/11/18 14:00 06/11/18 14:00 DC Insulin Glargine (Lantus) 30 units QHS 06/08/18 21:00 06/10/18 21:45 30 UNITS Iodixanol (Visipaque 320) 104 ml 1X ONCE 06/11/18 11:45 06/11/18 11:46 DC 06/11/18 11:42 104 ML Iohexol (Omnipaque 350 Mg/ml) 90 ml 1X ONCE 06/11/18 04:00 06/11/18 04:01 DC 06/11/18 04:02 90 ML Lidocaine HCl (Lidocaine 1% 20ml Vial) 15 ml 1X ONCE 06/11/18 11:45 06/11/18 11:46 DC 06/11/18 11:43 15 ML Lidocaine HCl (Xylocaine-Mpf 1% 2ml Vial) 2 ml PRN 1X PRN 06/12/18 07:00 06/13/18 06:59 Lisinopril (Prinivil) 20 mg DAILY 06/08/18 12:00 06/10/18 09:08 20 MG Methylprednisolone Sodium Succinate (SOLU-Medrol 125MG VIAL) 125 mg 1X ONCE 06/11/18 11:45 06/11/18 11:46 DC 06/11/18 11:43 125 MG Metoprolol Succinate (Toprol Xl) 100 mg DAILY 06/08/18 12:00 06/10/18 12:07 100 MG Midazolam HCl (Versed) 2 mg STK-MED ONCE 06/11/18 11:06 06/11/18 11:07 DC Morphine Sulfate (Morphine Sulfate) 1 mg PRN Q10MIN PRN 06/12/18 07:00 06/13/18 06:59 Non-Formulary Medication (Budesonide/ Formoterol Fumarate (Symbicort 160-4.5 Mcg Inhaler)) 2 puff BID 06/08/18 21:00 UNV Non-Formulary Medication ([Albuterol Sulfate] ) 2.5 mg PRN Q4HRS PRN 06/08/18 11:30 UNV Ondansetron HCl (Zofran) 4 mg PRN Q6HRS PRN 06/12/18 07:00 06/13/18 06:59 Prednisone (Prednisone) 20 mg 1X ONCE 06/12/18 09:00 06/12/18 09:01 Prochlorperazine Edisylate (Compazine) 5 mg PACU PRN PRN 06/12/18 07:00 06/13/18 06:59 Ringer's Solution 1,000 ml @ 30 mls/hr Q24H 06/12/18 07:00 06/12/18 18:59 Sodium Chloride 1,000 ml @ 400 mls/hr Q2H30M PRN 06/11/18 13:48 06/12/18 01:47 Sodium Chloride (Normal Saline Flush) 3 ml QSHIFT PRN 06/11/18 12:45 Lab Laboratory Tests Test 06/10/18 17:44 06/10/18 18:10 06/10/18 20:44 06/11/18 01:00 Glucose (Fingerstick) 131 mg/dL (70-99) 117 mg/dL (70-99) Heparin Anti-Xa Act, Unfractionated 0.24 IU/mL (0.30-0.70) 0.70 IU/mL (0.30-0.70) White Blood Count 5.1 x10^3/uL (4.0-11.0) Red Blood Count 3.62 x10^6/uL (3.50-5.40) Hemoglobin 11.4 g/dL (12.0-15.5) Hematocrit 37.2 % (36.0-47.0) Mean Corpuscular Volume 103 fL (79-100) Mean Corpuscular Hemoglobin 31 pg (25-35) Mean Corpuscular Hemoglobin Concent 31 g/dL (31-37) Red Cell Distribution Width 16.0 % (11.5-14.5) Platelet Count 230 x10^3/uL (140-400) Neutrophils (%) (Auto) 69 % (31-73) Lymphocytes (%) (Auto) 15 % (24-48) Monocytes (%) (Auto) 15 % (0-9) Eosinophils (%) (Auto) 1 % (0-3) Basophils (%) (Auto) 1 % (0-3) Neutrophils # (Auto) 3.6 x10^3uL (1.8-7.7) Lymphocytes # (Auto) 0.8 x10^3/uL (1.0-4.8) Monocytes # (Auto) 0.8 x10^3/uL (0.0-1.1) Eosinophils # (Auto) 0.0 x10^3/uL (0.0-0.7) Basophils # (Auto) 0.0 x10^3/uL (0.0-0.2) Prothrombin Time 13.5 SEC (11.7-14.0) Prothromb Time International Ratio 1.1 (0.8-1.1) Sodium Level 140 mmol/L (136-145) Potassium Level 4.9 mmol/L (3.5-5.1) Chloride Level 104 mmol/L (98-107) Carbon Dioxide Level 26 mmol/L (21-32) Anion Gap 10 (6-14) Blood Urea Nitrogen 44 mg/dL (7-20) Creatinine 7.0 mg/dL (0.6-1.0) Estimated GFR (Cockcroft-Gault) 6.9 Glucose Level 102 mg/dL (70-99) Calcium Level 7.9 mg/dL (8.5-10.1) Troponin I Quantitative 0.059 ng/mL (0.000-0.055) Test 06/11/18 04:00 06/11/18 04:08 06/11/18 14:20 Troponin I Quantitative 0.060 ng/mL (0.000-0.055) Glucose (Fingerstick) 72 mg/dL (70-99) Heparin Anti-Xa Act, Unfractionated 0.15 IU/mL (0.30-0.70) Results All relevant outside records, renal labs, imaging studies, telemetry/EKG's were reviewed. DESIREE MELARA MD Jun 11, 2018 15:13
[2018-06-11] MEDS: hydrOXYzine PAMOATE 25 MG CAPSULE PO SCH (16:00)
--- NOTE | 2018-06-11 18:25 | NUR ---
BG low w IV dextrose as needed. More alert/oriented after 4 H dialysis run. Reported 2.5 KG removed. Prepped for am surgery w pre and post op expectations covered/ permits signed /charted. Dr Tracey in am w explanation of EVAR. Only am meds administered was the amiodarone ans asa...all others held.Dopamine stopped 9711-2603(twords end dialysis) VS good as well as consistent HR >70. Continue POC
[2018-06-11] MEDS ORDERED: predniSONE 20 MG TABLET PO ONE (21:00)
[2018-06-11] MEDS: ATORVASTATIN CALCIUM 40 MG TABLET. PO SCH (23:35)
[2018-06-11] MEDS: INSULIN GLARGINE 300 UNITS/3 ML INSULN.PEN. SQ SCH (23:41)
[2018-06-12] VITALS (22 sets, daily range): BP systolic 100–164; BP diastolic 50–77
[2018-06-12 05:52] LABS: BASO % 0 % (0-3); EOS % 0 % (0-3); HEMATOCRIT 34.3 % (36.0-47.0); HEMOGLOBIN 10.7 g/dL (12.0-15.5); LYMPH # 0.1 x10^3/uL (1.0-4.8); LYMPH % 3 % (24-48); MEAN CORPUSCULAR HEMOGLOBIN 32 pg (25-35); MEAN CORPUSCULAR HGB CONC 31 g/dL (31-37); MEAN CORPUSCULAR VOLUME 101 fL (79-100); MONO # 0.2 x10^3/uL (0.0-1.1); MONO % 6 % (0-9); NEUT # 3.9 x10^3uL (1.8-7.7); NEUT % 92 % (31-73); PLATELET COUNT 209 x10^3/uL (140-400); RED CELL DISTRIBUTION WIDTH 15.6 % (11.5-14.5); WHITE BLOOD COUNT 4.3 x10^3/uL (4.0-11.0)
[2018-06-12] MEDS ORDERED: HEPARIN SODIUM 5,000 UNIT in IV NORMAL SALINE 500ML BAG 500 ML IRR ONE (06:00)
[2018-06-12] MEDS ORDERED: HYDROmorphone 2 MG/ML VIAL IV PRN (07:00)
[2018-06-12] MEDS ORDERED: ONDANSETRON PF 4 MG/2 ML VIAL. IV PRN (07:00)
[2018-06-12] MEDS ORDERED: PROCHLORPERAZINE 10 MG/2 ML VIAL. IV PRN (07:00)
[2018-06-12] MEDS ORDERED: IV RINGERS,LACTATED 1000ML 1,000 ML IV SCH (07:00)
[2018-06-12] MEDS ORDERED: LIDOCAINE 1% PF 2 ML VIAL. ID PRN (07:00)
[2018-06-12] MEDS ORDERED: MORPHINE SULFATE 2 MG/ML VIAL. IV PRN (07:00)
[2018-06-12] MEDS ORDERED: fentaNYL PF VIAL 100 MCG/2 ML VIAL IV PRN ×2 (07:00)
[2018-06-12 07:22] LABS: CALCIUM 7.6 mg/dL (8.5-10.1); GFR 10.2
[2018-06-12] MEDS: BUDESONIDE 0.5 MG/2 ML NEBU. NEB SCH ×2 (07:53→19:35)
[2018-06-12] MEDS: ALBUTEROL SULFATE 2.5 MG/3 ML NEBU. NEB SCH ×4 (07:54→19:35)
[2018-06-12] MEDS: METOPROLOL SUCC 24HR ER 100 MG TAB.ER.24H. PO SCH (09:00)
[2018-06-12] MEDS: DICLOFENAC SODIUM 1% TOPICAL GEL 100GM TUBE. TP SCH ×2 (09:00→23:06)
[2018-06-12] MEDS: AMIODARONE HCL 200 MG TABLET. PO SCH (09:00)
[2018-06-12] MEDS: ASPIRIN 325 MG TABLET PO SCH (09:00)
[2018-06-12] MEDS: LISINOPRIL 20 MG TABLET PO SCH (09:00)
[2018-06-12] MEDS ORDERED: predniSONE 20 MG TABLET PO ONE (09:00)
[2018-06-12] MEDS: FUROSEMIDE 40 MG TABLET. PO SCH (09:00)
--- NOTE | 2018-06-12 09:11 | PDOC ---
PULMONARY PROGRESS NOTES Subjective patient not more SOA, no chest pain Vitals Vital Signs Date Time Temp Pulse Resp B/P (MAP) Pulse Ox O2 Delivery O2 Flow Rate FiO2 06/12/18 07:54 97 Nasal Cannula 3.0 06/12/18 06:00 73 12 149/68 (95) 06/12/18 04:00 98.2 98.2 ROS: No Nausea, No Chest Pain, No Abdominal Pain General: Alert Cardiovascular: S1, S2 Abdomen: Soft, Non-tender, Other Neuro Exam: Alert Extremities: No Edema Skin: Warm Labs Laboratory Tests Test 06/10/18 11:35 06/10/18 17:44 06/10/18 18:10 06/10/18 20:44 Glucose (Fingerstick) 69 mg/dL (70-99) 131 mg/dL (70-99) 117 mg/dL (70-99) Heparin Anti-Xa Act, Unfractionated 0.24 IU/mL (0.30-0.70) Test 06/11/18 01:00 06/11/18 04:00 06/11/18 04:08 06/11/18 08:30 White Blood Count 5.1 x10^3/uL (4.0-11.0) Red Blood Count 3.62 x10^6/uL (3.50-5.40) Hemoglobin 11.4 g/dL (12.0-15.5) Hematocrit 37.2 % (36.0-47.0) Mean Corpuscular Volume 103 fL (79-100) Mean Corpuscular Hemoglobin 31 pg (25-35) Mean Corpuscular Hemoglobin Concent 31 g/dL (31-37) Red Cell Distribution Width 16.0 % (11.5-14.5) Platelet Count 230 x10^3/uL (140-400) Neutrophils (%) (Auto) 69 % (31-73) Lymphocytes (%) (Auto) 15 % (24-48) Monocytes (%) (Auto) 15 % (0-9) Eosinophils (%) (Auto) 1 % (0-3) Basophils (%) (Auto) 1 % (0-3) Neutrophils # (Auto) 3.6 x10^3uL (1.8-7.7) Lymphocytes # (Auto) 0.8 x10^3/uL (1.0-4.8) Monocytes # (Auto) 0.8 x10^3/uL (0.0-1.1) Eosinophils # (Auto) 0.0 x10^3/uL (0.0-0.7) Basophils # (Auto) 0.0 x10^3/uL (0.0-0.2) Prothrombin Time 13.5 SEC (11.7-14.0) Prothromb Time International Ratio 1.1 (0.8-1.1) Heparin Anti-Xa Act, Unfractionated 0.70 IU/mL (0.30-0.70) Sodium Level 140 mmol/L (136-145) Potassium Level 4.9 mmol/L (3.5-5.1) Chloride Level 104 mmol/L (98-107) Carbon Dioxide Level 26 mmol/L (21-32) Anion Gap 10 (6-14) Blood Urea Nitrogen 44 mg/dL (7-20) Creatinine 7.0 mg/dL (0.6-1.0) Estimated GFR (Cockcroft-Gault) 6.9 Glucose Level 102 mg/dL (70-99) Calcium Level 7.9 mg/dL (8.5-10.1) Troponin I Quantitative 0.059 ng/mL (0.000-0.055) 0.060 ng/mL (0.000-0.055) Glucose (Fingerstick) 72 mg/dL (70-99) Nasal Screen MRSA (PCR) Negative (Negative) Test 06/11/18 12:37 06/11/18 14:05 06/11/18 14:20 06/11/18 16:52 Glucose (Fingerstick) 43 mg/dL (70-99) 56 mg/dL (70-99) 89 mg/dL (70-99) Heparin Anti-Xa Act, Unfractionated 0.15 IU/mL (0.30-0.70) Test 06/11/18 23:40 06/12/18 04:30 Glucose (Fingerstick) 251 mg/dL (70-99) White Blood Count 4.3 x10^3/uL (4.0-11.0) Red Blood Count 3.40 x10^6/uL (3.50-5.40) Hemoglobin 10.7 g/dL (12.0-15.5) Hematocrit 34.3 % (36.0-47.0) Mean Corpuscular Volume 101 fL (79-100) Mean Corpuscular Hemoglobin 32 pg (25-35) Mean Corpuscular Hemoglobin Concent 31 g/dL (31-37) Red Cell Distribution Width 15.6 % (11.5-14.5) Platelet Count 209 x10^3/uL (140-400) Neutrophils (%) (Auto) 92 % (31-73) Lymphocytes (%) (Auto) 3 % (24-48) Monocytes (%) (Auto) 6 % (0-9) Eosinophils (%) (Auto) 0 % (0-3) Basophils (%) (Auto) 0 % (0-3) Neutrophils # (Auto) 3.9 x10^3uL (1.8-7.7) Lymphocytes # (Auto) 0.1 x10^3/uL (1.0-4.8) Monocytes # (Auto) 0.2 x10^3/uL (0.0-1.1) Eosinophils # (Auto) 0.0 x10^3/uL (0.0-0.7) Basophils # (Auto) 0.0 x10^3/uL (0.0-0.2) Sodium Level 142 mmol/L (136-145) Potassium Level 5.0 mmol/L (3.5-5.1) Chloride Level 103 mmol/L (98-107) Carbon Dioxide Level 30 mmol/L (21-32) Anion Gap 9 (6-14) Blood Urea Nitrogen 30 mg/dL (7-20) Creatinine 5.0 mg/dL (0.6-1.0) Estimated GFR (Cockcroft-Gault) 10.2 Glucose Level 226 mg/dL (70-99) Calcium Level 7.6 mg/dL (8.5-10.1) Laboratory Tests Test 06/11/18 12:37 06/11/18 14:05 06/11/18 14:20 06/11/18 16:52 Glucose (Fingerstick) 43 mg/dL (70-99) 56 mg/dL (70-99) 89 mg/dL (70-99) Heparin Anti-Xa Act, Unfractionated 0.15 IU/mL (0.30-0.70) Test 06/11/18 23:40 06/12/18 04:30 Glucose (Fingerstick) 251 mg/dL (70-99) White Blood Count 4.3 x10^3/uL (4.0-11.0) Red Blood Count 3.40 x10^6/uL (3.50-5.40) Hemoglobin 10.7 g/dL (12.0-15.5) Hematocrit 34.3 % (36.0-47.0) Mean Corpuscular Volume 101 fL (79-100) Mean Corpuscular Hemoglobin 32 pg (25-35) Mean Corpuscular Hemoglobin Concent 31 g/dL (31-37) Red Cell Distribution Width 15.6 % (11.5-14.5) Platelet Count 209 x10^3/uL (140-400) Neutrophils (%) (Auto) 92 % (31-73) Lymphocytes (%) (Auto) 3 % (24-48) Monocytes (%) (Auto) 6 % (0-9) Eosinophils (%) (Auto) 0 % (0-3) Basophils (%) (Auto) 0 % (0-3) Neutrophils # (Auto) 3.9 x10^3uL (1.8-7.7) Lymphocytes # (Auto) 0.1 x10^3/uL (1.0-4.8) Monocytes # (Auto) 0.2 x10^3/uL (0.0-1.1) Eosinophils # (Auto) 0.0 x10^3/uL (0.0-0.7) Basophils # (Auto) 0.0 x10^3/uL (0.0-0.2) Sodium Level 142 mmol/L (136-145) Potassium Level 5.0 mmol/L (3.5-5.1) Chloride Level 103 mmol/L (98-107) Carbon Dioxide Level 30 mmol/L (21-32) Anion Gap 9 (6-14) Blood Urea Nitrogen 30 mg/dL (7-20) Creatinine 5.0 mg/dL (0.6-1.0) Estimated GFR (Cockcroft-Gault) 10.2 Glucose Level 226 mg/dL (70-99) Calcium Level 7.6 mg/dL (8.5-10.1) Medications Active Scripts Medications Dose Route/Sig Max Daily Dose Days Date Category Diltiazem 24HR Cd (Diltiazem Hcl) 180 Mg Cap.er.24h 180 Mg PO DAILY 06/08/18 Reported Lipitor (Atorvastatin Calcium) 40 Mg Tablet 40 Mg PO HS 06/08/18 Reported Hydrocodone-Acetamin 5-325 mg (Hydrocodone/Acetaminophen) 1 Each Tablet 1 Each PO PRN Q6HRS PRN 06/08/18 Reported Furosemide 40 Mg Tablet 40 Mg PO DAILY 06/08/18 Reported Symbicort 160-4.5 Mcg Inhaler (Budesonide/Formoterol Fumarate) 10.2 Gm Hfa.aer.ad 2 Puff IH BID 06/08/18 Reported Toprol Xl (Metoprolol Succinate) 100 Mg Tab.er.24h 100 Mg PO DAILY 06/08/18 Reported Proair Hfa Inhaler (Albuterol Sulfate) 8.5 Gm Hfa.aer.ad 1 Puff INH PRN Q6HRS PRN 06/08/18 Reported Amiodarone Hcl 200 Mg Tablet 200 Mg PO DAILY MDD 1 03/24/18 Rx Eliquis (Apixaban) 5 Mg Tablet 5 Mg PO BID MDD ` 03/24/18 Rx Marina-Jayme Tablet (Folic Acid/Vitamin B Comp W-C) 0.8 Mg Tablet 0.8 Mg PO DAILY 03/21/18 Reported Hydroxyzine Hcl 25 Mg Tablet 50 Mg PO QMWF 03/21/18 Reported Lisinopril 20 Mg Tablet 1 Tab PO DAILY 11/06/17 Reported Lantus Solostar (Insulin Glargine,Hum.rec.anlog) 100 Unit/1 Ml Insuln.pen 30 Unit SQ QHS 09/03/15 Reported [Albuterol Sulfate] 2.5 MG/3 ML Nebu 2.5 Mg NEB PRN Q4HRS PRN 12/26/14 Rx Aspirin 325 Mg Tablet 1 Tab PO DAILY 01/25/14 Reported Impression . IMPRESSION: 1. Chronic respiratory failure. Respiratory status appears to be compensated. Continue oxygen supplementation. 2. 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 3. Coronary artery disease, status post previous cardiac catheterization and stent placement. 4. Recent CT revealing abdominal aortic aneurysm measuring 6 cm; the patient to be seen by cardiovascular surgeon. 5. Renal failure, on hemodialysis. 6. BRADYCARDIA CATH Conclusion 1. Nonobstructive coronary artery disease with 30% in-stent restenosis involving the distal segment of the right coronary artery 2. Posterobasal wall hypokinesis with ejection fraction estimated at 45%. Recommendations Medical Therapy Plan . planned cath report noted, follow cardiology input surgery OK by me, respiratory status compensated EARL MARTINEZ MD Jun 12, 2018 09:11
--- NOTE | 2018-06-12 10:29 | CARD ---
MR#: [id number] Date of Study: 06/12/2018 Ordering Physician: JAZMYN WELSH, Referring Physician: SUDHEER ROBLES Tech: Eliza Estrella RDCS APPROVED REPORT EXAM: Two-dimensional and M-mode echocardiogram with Doppler and color Doppler. Other Information Quality : Good INDICATION Abdominal Aortic Aneurysm 2D DIMENSIONS RVDd3.9 (2.9-3.5cm)Left Atrium(2D)4.6 (1.6-4.0cm) IVSd1.5 (0.7-1.1cm)Aortic Root(2D)2.8 (2.0-3.7cm) LVDd5.2 (3.9-5.9cm)LVOT Diameter2.0 (1.8-2.4cm) PWd1.4 (0.7-1.1cm)LVDs3.3 (2.5-4.0cm) FS (%) 35.9 %SV83.4 ml LVEF(%)65.1 (>50%) Aortic Valve AoV Peak Vipul.133.9cm/sAoV VTI28.3cm AO Peak GR.7.2mmHgLVOT VTI 22.98cm AO Mean GR.4mmHgAVA (VTI)2.49cm2 Mitral Valve MV E Eeetdawb128.3cm/sMV DECEL [id number] MV A Vtsrttmu30.7cm/sE/A Ratio1.3 TDI Lateral E' P. V6.44cm/sMedial E' P. V3.93cm/s E/Lateral E'17.9E/Medial E'29.3 Tricuspid Valve TR P. Zwvhymer676tv/sRAP [id number] TR Peak Gr.18tzRuNNHS93uvCr Pulmonary Vein S1 Ejlpvzwl93.9cm/sS2 Xywchxrn82.23cm/s D2 Rttvclwd73.2cm/s LEFT VENTRICLE The left ventricle is normal size. There is mild concentric left ventricular hypertrophy. The left ve ntricular systolic function is low normal. EF 50% Septal motion consistent with conduction abnormalit y. There is a subtle flattened septum consistent with right ventricle pressure overload. RIGHT VENTRICLE The right ventricle is mildly dilated. The right ventricular systolic function is normal. ATRIA The left atrium is mildly dilated. The right atrium is moderately dilated. The interatrial septum is intact with no evidence for an atrial septal defect or patent foramen ovale as noted on 2-D or Dopple r imaging. AORTIC VALVE The aortic valve is calcified but opens well. Doppler and Color Flow revealed no significant aortic r egurgitation. There is no significant aortic valvular stenosis. MITRAL VALVE The mitral valve is calcified but opens well. There is no evidence of mitral valve prolapse. There is no mitral valve stenosis. Doppler and Color-flow revealed trace mitral regurgitation. TRICUSPID VALVE The tricuspid valve is normal in structure and function. Doppler and Color Flow revealed mild tricusp id regurgitation. There is severe pulmonary hypertension. The PA pressure was estimated at 74 mmHg. T here is no tricuspid valve stenosis. PULMONIC VALVE Doppler and Color Flow revealed mild pulmonic valvular regurgitation. There is no pulmonic valvular s tenosis. GREAT VESSELS The aortic root is normal in size. The ascending aorta is normal in size. The IVC is dilated and jose apses >50% with inspiration. PERICARDIAL EFFUSION There is no evidence of significant pericardial effusion. Critical Notification Critical Value: No <Conclusion> The left ventricular systolic function is low normal. EF 50% Septal motion consistent with conduction abnormality. There is a subtle flattened septum consistent w ith right ventricle pressure overload. Doppler and Color Flow revealed mild tricuspid regurgitation. There is severe pulmonary hypertension. The PA pressure was estimated at 74 mmHg. Signed by : Felix Bustamante, Electronically Approved : 06/12/2018 10:29:12
--- NOTE | 2018-06-12 11:11 | NUR ---
0800 -1100 Confused,independently OOB. Thought she was going home... reoriented. Back to bed w minimal assist,steady on feet.Echo complete. Waiting for surgery. Family members in. Cont POC
--- NOTE | 2018-06-12 12:04 | PDOC ---
PROGRESS NOTES Chief Complaint Chief Complaint Abdominal aortic aneurysm Vasculopathy CAD s/p cardiac cath with stents CHF COPD Diabetes Hypertension, Hyperlipidemia End-stage renal disease, on dialysis Rotator cuff surgery Bradycardia History of Present Illness History of Present Illness Patient seen and examined in the ICU. Patient resting and awake. Patient scheduled for endograft today. Discussed case with family. Patient has no new complaints. HD (M-W-F). Neph, Cards, Pulm following. Vitals Vitals Vital Signs Date Time Temp Pulse Resp B/P (MAP) Pulse Ox O2 Delivery O2 Flow Rate FiO2 06/12/18 11:00 73 18 100/58 (72) 100 Nasal Cannula 3.0 06/12/18 08:00 98.6 98.6 Physical Exam General: Alert, Oriented X3, Cooperative, No acute distress Heart: Regular rate, No murmurs Lungs: Clear Abdomen: Normal bowel sounds, No tenderness Extremities: No clubbing, No cyanosis Skin: No rashes, No significant lesion Labs LABS Laboratory Tests Test 06/11/18 12:37 06/11/18 14:05 06/11/18 14:20 06/11/18 16:52 Glucose (Fingerstick) 43 mg/dL (70-99) 56 mg/dL (70-99) 89 mg/dL (70-99) Heparin Anti-Xa Act, Unfractionated 0.15 IU/mL (0.30-0.70) Test 06/11/18 23:40 06/12/18 04:30 Glucose (Fingerstick) 251 mg/dL (70-99) White Blood Count 4.3 x10^3/uL (4.0-11.0) Red Blood Count 3.40 x10^6/uL (3.50-5.40) Hemoglobin 10.7 g/dL (12.0-15.5) Hematocrit 34.3 % (36.0-47.0) Mean Corpuscular Volume 101 fL (79-100) Mean Corpuscular Hemoglobin 32 pg (25-35) Mean Corpuscular Hemoglobin Concent 31 g/dL (31-37) Red Cell Distribution Width 15.6 % (11.5-14.5) Platelet Count 209 x10^3/uL (140-400) Neutrophils (%) (Auto) 92 % (31-73) Lymphocytes (%) (Auto) 3 % (24-48) Monocytes (%) (Auto) 6 % (0-9) Eosinophils (%) (Auto) 0 % (0-3) Basophils (%) (Auto) 0 % (0-3) Neutrophils # (Auto) 3.9 x10^3uL (1.8-7.7) Lymphocytes # (Auto) 0.1 x10^3/uL (1.0-4.8) Monocytes # (Auto) 0.2 x10^3/uL (0.0-1.1) Eosinophils # (Auto) 0.0 x10^3/uL (0.0-0.7) Basophils # (Auto) 0.0 x10^3/uL (0.0-0.2) Sodium Level 142 mmol/L (136-145) Potassium Level 5.0 mmol/L (3.5-5.1) Chloride Level 103 mmol/L (98-107) Carbon Dioxide Level 30 mmol/L (21-32) Anion Gap 9 (6-14) Blood Urea Nitrogen 30 mg/dL (7-20) Creatinine 5.0 mg/dL (0.6-1.0) Estimated GFR (Cockcroft-Gault) 10.2 Glucose Level 226 mg/dL (70-99) Calcium Level 7.6 mg/dL (8.5-10.1) Review of Systems Review of Systems Denies chest pain Denies nausea or vomiting Denies shortness of breath Denies lightheadedness Assessment and Plan Assessmemt and Plan Assessment: Abdominal aortic aneurysm Vasculopathy CAD s/p cardiac cath with stents CHF COPD Diabetes Hypertension, Hyperlipidemia End-stage renal disease, on dialysis Rotator cuff surgery Bradycardia Plan: Patient awaiting endograft procedure today Continue to monitor in the ICU Recheck labs tomorrow am Reviewed Echo - 50% EF and severe pulmonary hypertension with PA pressure of 74 Appreciate subspecialty input Continue home meds Comment Review of Relevant I have reviewed the following items mykel (where applicable) has been applied. Labs Laboratory Tests Test 06/10/18 17:44 06/10/18 18:10 06/10/18 20:44 06/11/18 01:00 Glucose (Fingerstick) 131 mg/dL (70-99) 117 mg/dL (70-99) Heparin Anti-Xa Act, Unfractionated 0.24 IU/mL (0.30-0.70) 0.70 IU/mL (0.30-0.70) White Blood Count 5.1 x10^3/uL (4.0-11.0) Red Blood Count 3.62 x10^6/uL (3.50-5.40) Hemoglobin 11.4 g/dL (12.0-15.5) Hematocrit 37.2 % (36.0-47.0) Mean Corpuscular Volume 103 fL (79-100) Mean Corpuscular Hemoglobin 31 pg (25-35) Mean Corpuscular Hemoglobin Concent 31 g/dL (31-37) Red Cell Distribution Width 16.0 % (11.5-14.5) Platelet Count 230 x10^3/uL (140-400) Neutrophils (%) (Auto) 69 % (31-73) Lymphocytes (%) (Auto) 15 % (24-48) Monocytes (%) (Auto) 15 % (0-9) Eosinophils (%) (Auto) 1 % (0-3) Basophils (%) (Auto) 1 % (0-3) Neutrophils # (Auto) 3.6 x10^3uL (1.8-7.7) Lymphocytes # (Auto) 0.8 x10^3/uL (1.0-4.8) Monocytes # (Auto) 0.8 x10^3/uL (0.0-1.1) Eosinophils # (Auto) 0.0 x10^3/uL (0.0-0.7) Basophils # (Auto) 0.0 x10^3/uL (0.0-0.2) Prothrombin Time 13.5 SEC (11.7-14.0) Prothromb Time International Ratio 1.1 (0.8-1.1) Sodium Level 140 mmol/L (136-145) Potassium Level 4.9 mmol/L (3.5-5.1) Chloride Level 104 mmol/L (98-107) Carbon Dioxide Level 26 mmol/L (21-32) Anion Gap 10 (6-14) Blood Urea Nitrogen 44 mg/dL (7-20) Creatinine 7.0 mg/dL (0.6-1.0) Estimated GFR (Cockcroft-Gault) 6.9 Glucose Level 102 mg/dL (70-99) Calcium Level 7.9 mg/dL (8.5-10.1) Troponin I Quantitative 0.059 ng/mL (0.000-0.055) Test 06/11/18 04:00 06/11/18 04:08 06/11/18 08:30 06/11/18 12:37 Troponin I Quantitative 0.060 ng/mL (0.000-0.055) Glucose (Fingerstick) 72 mg/dL (70-99) 43 mg/dL (70-99) Nasal Screen MRSA (PCR) Negative (Negative) Test 06/11/18 14:05 06/11/18 14:20 06/11/18 16:52 06/11/18 23:40 Glucose (Fingerstick) 56 mg/dL (70-99) 89 mg/dL (70-99) 251 mg/dL (70-99) Heparin Anti-Xa Act, Unfractionated 0.15 IU/mL (0.30-0.70) Test 06/12/18 04:30 White Blood Count 4.3 x10^3/uL (4.0-11.0) Red Blood Count 3.40 x10^6/uL (3.50-5.40) Hemoglobin 10.7 g/dL (12.0-15.5) Hematocrit 34.3 % (36.0-47.0) Mean Corpuscular Volume 101 fL (79-100) Mean Corpuscular Hemoglobin 32 pg (25-35) Mean Corpuscular Hemoglobin Concent 31 g/dL (31-37) Red Cell Distribution Width 15.6 % (11.5-14.5) Platelet Count 209 x10^3/uL (140-400) Neutrophils (%) (Auto) 92 % (31-73) Lymphocytes (%) (Auto) 3 % (24-48) Monocytes (%) (Auto) 6 % (0-9) Eosinophils (%) (Auto) 0 % (0-3) Basophils (%) (Auto) 0 % (0-3) Neutrophils # (Auto) 3.9 x10^3uL (1.8-7.7) Lymphocytes # (Auto) 0.1 x10^3/uL (1.0-4.8) Monocytes # (Auto) 0.2 x10^3/uL (0.0-1.1) Eosinophils # (Auto) 0.0 x10^3/uL (0.0-0.7) Basophils # (Auto) 0.0 x10^3/uL (0.0-0.2) Sodium Level 142 mmol/L (136-145) Potassium Level 5.0 mmol/L (3.5-5.1) Chloride Level 103 mmol/L (98-107) Carbon Dioxide Level 30 mmol/L (21-32) Anion Gap 9 (6-14) Blood Urea Nitrogen 30 mg/dL (7-20) Creatinine 5.0 mg/dL (0.6-1.0) Estimated GFR (Cockcroft-Gault) 10.2 Glucose Level 226 mg/dL (70-99) Calcium Level 7.6 mg/dL (8.5-10.1) Laboratory Tests Test 06/11/18 12:37 06/11/18 14:05 06/11/18 14:20 06/11/18 16:52 Glucose (Fingerstick) 43 mg/dL (70-99) 56 mg/dL (70-99) 89 mg/dL (70-99) Heparin Anti-Xa Act, Unfractionated 0.15 IU/mL (0.30-0.70) Test 06/11/18 23:40 06/12/18 04:30 Glucose (Fingerstick) 251 mg/dL (70-99) White Blood Count 4.3 x10^3/uL (4.0-11.0) Red Blood Count 3.40 x10^6/uL (3.50-5.40) Hemoglobin 10.7 g/dL (12.0-15.5) Hematocrit 34.3 % (36.0-47.0) Mean Corpuscular Volume 101 fL (79-100) Mean Corpuscular Hemoglobin 32 pg (25-35) Mean Corpuscular Hemoglobin Concent 31 g/dL (31-37) Red Cell Distribution Width 15.6 % (11.5-14.5) Platelet Count 209 x10^3/uL (140-400) Neutrophils (%) (Auto) 92 % (31-73) Lymphocytes (%) (Auto) 3 % (24-48) Monocytes (%) (Auto) 6 % (0-9) Eosinophils (%) (Auto) 0 % (0-3) Basophils (%) (Auto) 0 % (0-3) Neutrophils # (Auto) 3.9 x10^3uL (1.8-7.7) Lymphocytes # (Auto) 0.1 x10^3/uL (1.0-4.8) Monocytes # (Auto) 0.2 x10^3/uL (0.0-1.1) Eosinophils # (Auto) 0.0 x10^3/uL (0.0-0.7) Basophils # (Auto) 0.0 x10^3/uL (0.0-0.2) Sodium Level 142 mmol/L (136-145) Potassium Level 5.0 mmol/L (3.5-5.1) Chloride Level 103 mmol/L (98-107) Carbon Dioxide Level 30 mmol/L (21-32) Anion Gap 9 (6-14) Blood Urea Nitrogen 30 mg/dL (7-20) Creatinine 5.0 mg/dL (0.6-1.0) Estimated GFR (Cockcroft-Gault) 10.2 Glucose Level 226 mg/dL (70-99) Calcium Level 7.6 mg/dL (8.5-10.1) Medications Current Medications Sodium Chloride 1,000 ml @ 100 mls/hr Q10H IV Last administered on 06/07/18at 19:56; Start 06/07/18 at 19:18; Stop 06/08/18 at 05:17; Status DC Ondansetron HCl (Zofran) 4 mg PRN Q8HRS PRN IV NAUSEA/VOMITING 1ST CHOICE; Start 06/07/18 at 21:00; Stop 06/08/18 at 20:59; Status DC Morphine Sulfate (Morphine Sulfate) 2 mg PRN Q2HR PRN IV SEVERE PAIN; Start at 21:00; Stop 06/08/18 at 06:39; Status DC Morphine Sulfate (Morphine Sulfate) 2 mg PRN Q2HR PRN IV SEVERE PAIN; Start 06/08/18 at 06:39; Stop 06/08/18 at 20:59; Status DC Amiodarone HCl (Cordarone) 200 mg DAILY PO Last administered on 06/11/18at 12:50 ; Start 06/08/18 at 12:00 Apixaban (Eliquis) 5 mg BID PO ; Start 06/08/18 at 12:00; Stop 06/08/18 at 15:30; Status DC Aspirin (Hung Aspirin) 325 mg DAILY PO Last administered on 06/10/18 09:07; Start 06/08/18 at 12:00 Atorvastatin Calcium (Lipitor) 40 mg HS PO Last administered on 06/11/18 23:35 ; Start 06/08/18 at 21:00 Furosemide (Lasix) 40 mg DAILY PO Last administered on 06/10/18 09:07; Start at 12:00 Acetaminophen/ Hydrocodone Bitart (Lortab 5/325) 1 tab PRN Q6HRS PRN PO back pain Last administered on 06/10/18 16:28; Start 06/08/18 at 11:30 Insulin Glargine (Lantus) 30 units QHS SQ Last administered on 06/11/18 23:41; Start 06/08/18 at 21:00 Lisinopril (Prinivil) 20 mg DAILY PO Last administered on 06/10/18 09:08; Start 06/08/18 at 12:00 Metoprolol Succinate (Toprol Xl) 100 mg DAILY PO Last administered on 06/10/18 12:07; Start 06/08/18 at 12:00 Non-Formulary Medication (Budesonide/ Formoterol Fumarate (Symbicort 160-4.5 Mcg Inhaler)) 2 puff BID IH ; Start 06/08/18 at 21:00; Status UNV Diltiazem HCl (Cardizem 24hr Cd) 180 mg DAILY PO Last administered on 06/10/18 12:07; Start 06/08/18 at 12:00 Hydroxyzine Pamoate (Vistaril) 50 mg QMWF PO Last administered on 06/08/18 16: 49; Start 06/08/18 at 16:00 Non-Formulary Medication ([Albuterol Sulfate] ) 2.5 mg PRN Q4HRS PRN NEB SHORTNESS OF BREATH; Start 06/08/18 at 11:30; Status UNV Budesonide (Pulmicort) 0.5 mg RTBID NEB Last administered on 06/12/18 07:53; Start 06/08/18 at 12:00 Albuterol Sulfate (Ventolin Neb Soln) 2.5 mg RTQID NEB Last administered on 06/12at 07:54; Start 06/08/18 at 12:00 Albuterol Sulfate (Ventolin Neb Soln) 2.5 mg PRN Q4HRS PRN NEB SHORTNESS OF BREATH; Start 06/08/18 at 11:30 Sodium Chloride 1,000 ml @ 1,000 mls/hr Q1H PRN IV hypotension; Start 06/08/18 at 12:22; Stop 06/08/18 at 18:21; Status DC Diphenhydramine HCl (Benadryl) 25 mg 1X PRN PRN IV ITCHING; Start 06/08/18 at 12 :30; Stop 06/09/18 at 12:29; Status DC Diphenhydramine HCl (Benadryl) 25 mg 1X PRN PRN IV ITCHING; Start 06/08/18 at 12 :30; Stop 06/09/18 at 12:29; Status DC Sodium Chloride 1,000 ml @ 400 mls/hr Q2H30M PRN IV PATENCY; Start 06/08/18 at 12:22; Stop 06/09/18 at 00:21; Status DC Info (PHARMACY MONITORING -- do not chart) 1 each PRN DAILY PRN MC SEE COMMENTS ; Start 06/08/18 at 12:30 Prednisone (Prednisone) 20 mg 1X ONCE PO Last administered on 06/08/18at 18:04; Start 06/08/18 at 18:00; Stop 06/08/18 at 18:01; Status DC Prednisone (Prednisone) 20 mg 1X ONCE PO Last administered on 06/08/18at 21:12; Start 06/08/18 at 22:00; Stop 06/08/18 at 22:01; Status DC Prednisone (Prednisone) 20 mg 1X ONCE PO Last administered on 06/09/18at 06:15; Start 06/09/18 at 06:00; Stop 06/09/18 at 06:01; Status DC Diphenhydramine HCl (Benadryl) 50 mg PRN 1X PRN PO COMMENTS Last administered on 06/09/18at 08:04; Start 06/08/18 at 14:45; Stop 06/09/18 at 14:44; Status DC Enoxaparin Sodium (Lovenox Per Pharmacy Treatment Dosing) 1 each PRN DAILY PRN MC SEE COMMENTS; Start 06/08/18 at 15:30; Status Cancel Iohexol (Omnipaque 350 Mg/ml) 90 ml 1X ONCE IV Last administered on 06/09/18at 08:56; Start 06/09/18 at 09:00; Stop 06/09/18 at 09:01; Status DC Info (CONTRAST GIVEN -- Rx MONITORING) 1 each PRN DAILY PRN MC SEE COMMENTS; Start 06/09/18 at 09:00; Stop 06/11/18 at 08:59; Status DC Diclofenac Sodium (Voltaren) 1 evgeny BID TP Last administered on 06/11/18at 23:36; Start 06/09/18 at 13:30 Heparin Sodium/ Dextrose 500 ml @ 0 mls/hr CONT PRN IV SEE I/O RECORD Last administered on 06/10/18at 12:14; Start 06/10/18 at 11:45; Stop 06/11/18 at 02:46; Status DC Heparin Sodium (Porcine) (Heparin Sodium) 1,700 unit PRN Q6HRS PRN IV FOR UFH LEVEL LESS THAN 0.2; Start 06/10/18 at 11:45 Info (Anti-Coagulation Monitoring By Pharmacy) 1 each PRN DAILY PRN MC SEE COMMENTS Last administered on 06/11/18at 16:33; Start 06/10/18 at 11:45; Stop at 11:01; Status DC Sodium Chloride 250 ml @ 500 mls/hr 1X ONCE IV Last administered on 06/11/18at 03:00; Start 06/11/18 at 03:00; Stop 06/11/18 at 03:29; Status DC Dopamine HCl/ Dextrose 250 ml @ 5.19 mls/hr CONT PRN IV SEE I/O RECORD; Start 06/11/18 at 03:00 Ondansetron HCl (Zofran) 4 mg PRN Q6HRS PRN IV NAUSEA/VOMITING 1ST CHOICE Last administered on 06/11/18at 04:51; Start 06/11/18 at 03:15 Morphine Sulfate (Morphine Sulfate) 2 mg PRN Q4HRS PRN IV SEVERE PAIN; Start at 03:15; Stop 06/11/18 at 10:41; Status DC Sodium Chloride 250 ml @ 500 mls/hr 1X ONCE IV Last administered on 06/11/18at 03:30; Start 06/11/18 at 03:30; Stop 06/11/18 at 03:59; Status DC Iohexol (Omnipaque 350 Mg/ml) 90 ml 1X ONCE IV Last administered on 06/11/18at 04:02; Start 06/11/18 at 04:00; Stop 06/11/18 at 04:01; Status DC Diphenhydramine HCl (Benadryl) 25 mg 1X ONCE IV Last administered on 06/11/18at 04:15; Start 06/11/18 at 04:00; Stop 06/11/18 at 04:01; Status DC Info (CONTRAST GIVEN -- Rx MONITORING) 1 each PRN DAILY PRN MC SEE COMMENTS; Start 06/11/18 at 03:30; Stop 06/13/18 at 03:29 Heparin Sodium/ Dextrose 500 ml @ 0 mls/hr CONT PRN IV SEE I/O RECORD Last administered on 06/11/18at 05:01; Start 06/11/18 at 04:30 Morphine Sulfate (Morphine Sulfate) 2 mg PRN Q2HR PRN IV SEVERE PAIN Last administered on 06/11/18at 04:51; Start 06/11/18 at 04:30 Morphine Sulfate (Morphine Sulfate) 1 mg PRN Q2HR PRN IV MODERATE PAIN; Start 06/11/18 at 04:30 Iodixanol (Visipaque 320) 100 ml STK-MED ONCE .ROUTE ; Start 06/11/18 at 10:44; Stop 06/11/18 at 10:45; Status DC Lidocaine HCl (Xylocaine-Mpf 1% 2ml Vial) 2 ml STK-MED ONCE .ROUTE ; Start at 10:44; Stop 06/11/18 at 10:45; Status DC Heparin Sodium/ Sodium Chloride 1,000 ml @ As Directed STK-MED ONCE .ROUTE ; Start 06/11/18 at 10:45; Stop 06/11/18 at 10:46; Status DC Heparin Sodium (Porcine) 5000 unit/Sodium Chloride 505 ml @ 505 mls/hr 1X ONCE IRR ; Start 06/12/18 at 06:00; Stop 06/12/18 at 06:59; Status DC Cefazolin Sodium 1 gm/Sodium Chloride 500 ml @ 500 mls/hr 1X ONCE IRR ; Start 06/12/18 at 06:00; Stop 06/12/18 at 06:59; Status DC Lidocaine HCl (Lidocaine 1% 20ml Vial) 20 ml STK-MED ONCE .ROUTE ; Start at 10:59; Stop 06/11/18 at 11:00; Status DC Methylprednisolone Sodium Succinate (SOLU-Medrol 125MG VIAL) 125 mg STK-MED ONCE .ROUTE ; Start 06/11/18 at 11:06; Stop 06/11/18 at 11:07; Status DC Fentanyl Citrate (Fentanyl 2ml Vial) 100 mcg STK-MED ONCE .ROUTE ; Start at 11:06; Stop 06/11/18 at 11:07; Status DC Midazolam HCl (Versed) 2 mg STK-MED ONCE .ROUTE ; Start 06/11/18 at 11:06; Stop 06/11/18 at 11:07; Status DC Famotidine (Pepcid Vial) 20 mg STK-MED ONCE .ROUTE ; Start 06/11/18 at 11:06; Stop 06/11/18 at 11:07; Status DC Diphenhydramine HCl (Benadryl) 50 mg STK-MED ONCE .ROUTE ; Start 06/11/18 at 11: 06; Stop 06/11/18 at 11:07; Status DC Heparin Sodium/ Sodium Chloride (HEPARIN for ARTERIAL LINE FLUSH) 1,000 unit 1X ONCE IART Last administered on 06/11/18 11:42; Start 06/11/18 at 11:45; Stop 06/11/18 at 11:46; Status DC Iodixanol (Visipaque 320) 104 ml 1X ONCE IART Last administered on 06/11/18at 11 :42; Start 06/11/18 at 11:45; Stop 06/11/18 at 11:46; Status DC Lidocaine HCl (Lidocaine 1% 20ml Vial) 15 ml 1X ONCE INJ Last administered on 06/11/18 11:43; Start 06/11/18 at 11:45; Stop 06/11/18 at 11:46; Status DC Diphenhydramine HCl (Benadryl) 25 mg 1X ONCE IVP Last administered on at 11:43; Start 06/11/18 at 11:45; Stop 06/11/18 at 11:46; Status DC Methylprednisolone Sodium Succinate (SOLU-Medrol 125MG VIAL) 125 mg 1X ONCE IV Last administered on 06/11/18at 11:43; Start 06/11/18 at 11:45; Stop 06/11/18 at 11:46; Status DC Famotidine (Pepcid Vial) 20 mg 1X ONCE IVP Last administered on 06/11/18at 11:18 ; Start 06/11/18 at 11:45; Stop 06/11/18 at 11:46; Status DC Sodium Chloride (Normal Saline Flush) 3 ml QSHIFT PRN IV AFTER MEDS AND BLOOD DRAWS; Start 06/11/18 at 12:45 Sodium Chloride 1,000 ml @ 1,000 mls/hr Q1H PRN IV hypotension; Start 06/11/18 at 13:48; Stop 06/11/18 at 19:47; Status DC Albumin Human 200 ml @ 200 mls/hr 1X PRN PRN IV Hypotension; Start 06/11/18 at 14:00; Stop 06/11/18 at 19:59; Status DC Sodium Chloride 1,000 ml @ 400 mls/hr Q2H30M PRN IV PATENCY; Start 06/11/18 at 13:48; Stop 06/12/18 at 01:47; Status DC Info (PHARMACY MONITORING -- do not chart) 1 each PRN DAILY PRN MC SEE COMMENTS ; Start 06/11/18 at 14:00; Stop 06/11/18 at 14:00; Status DC Info (PHARMACY MONITORING -- do not chart) 1 each PRN DAILY PRN MC SEE COMMENTS ; Start 06/11/18 at 14:00; Stop 06/11/18 at 14:00; Status DC Dextrose (Dextrose 50%-Water Syringe) 25 gm STK-MED ONCE IV ; Start 06/11/18 at 14:08; Stop 06/11/18 at 14:12; Status DC Prednisone (Prednisone) 20 mg 1X ONCE PO Last administered on 06/11/18at 23:35; Start 06/11/18 at 21:00; Stop 06/11/18 at 21:01; Status DC Prednisone (Prednisone) 20 mg 1X ONCE PO ; Start 06/12/18 at 09:00; Stop at 09:01; Status DC Cefazolin Sodium/ Dextrose 50 ml @ 100 mls/hr 1X ONCE IV ; Start 06/12/18 at 12 :00; Stop 06/12/18 at 12:29 Ondansetron HCl (Zofran) 4 mg PRN Q6HRS PRN IV NAUSEA/VOMITING; Start 06/12/18 at 07:00; Stop 06/13/18 at 06:59 Fentanyl Citrate (Fentanyl 2ml Vial) 25 mcg PRN Q5MIN PRN IV MILD PAIN; Start 06/12/18 at 07:00; Stop 06/13/18 at 06:59 Fentanyl Citrate (Fentanyl 2ml Vial) 50 mcg PRN Q5MIN PRN IV MODERATE TO SEVERE PAIN; Start 06/12/18 at 07:00; Stop 06/13/18 at 06:59 Morphine Sulfate (Morphine Sulfate) 1 mg PRN Q10MIN PRN IV SEVERE PAIN; Start 06/12/18 at 07:00; Stop 06/13/18 at 06:59 Ringer's Solution 1,000 ml @ 30 mls/hr Q24H IV ; Start 06/12/18 at 07:00; Stop 06/12/18 at 18:59 Lidocaine HCl (Xylocaine-Mpf 1% 2ml Vial) 2 ml PRN 1X PRN ID IV START; Start at 07:00; Stop 06/13/18 at 06:59 Hydromorphone HCl (Dilaudid) 0.5 mg PRN Q10MIN PRN IV SEV PAIN, Second choice; Start 06/12/18 at 07:00; Stop 06/13/18 at 06:59 Prochlorperazine Edisylate (Compazine) 5 mg PACU PRN PRN IV NAUSEA, MRX1; Start 06/12/18 at 07:00; Stop 06/13/18 at 06:59 Dextrose (Dextrose 50%-Water Syringe) 25 gm STK-MED ONCE IV ; Start 06/11/18 at 14:00; Stop 06/12/18 at 08:16; Status DC Active Scripts Active Amiodarone Hcl 200 Mg Tablet 200 Mg PO DAILY MDD 1 Eliquis (Apixaban) 5 Mg Tablet 5 Mg PO BID MDD ` [Albuterol Sulfate] 2.5 MG/3 ML Nebu 2.5 Mg NEB PRN Q4HRS PRN Reported Diltiazem 24HR Cd (Diltiazem Hcl) 180 Mg Cap.er.24h 180 Mg PO DAILY Lipitor (Atorvastatin Calcium) 40 Mg Tablet 40 Mg PO HS Hydrocodone-Acetamin 5-325 mg (Hydrocodone/Acetaminophen) 1 Each Tablet 1 Each PO PRN Q6HRS PRN Furosemide 40 Mg Tablet 40 Mg PO DAILY Symbicort 160-4.5 Mcg Inhaler (Budesonide/Formoterol Fumarate) 10.2 Gm Hfa.aer.ad 2 Puff IH BID Toprol Xl (Metoprolol Succinate) 100 Mg Tab.er.24h 100 Mg PO DAILY Proair Hfa Inhaler (Albuterol Sulfate) 8.5 Gm Hfa.aer.ad 1 Puff INH PRN Q6HRS PRN Marina-Jayme Tablet (Folic Acid/Vitamin B Comp W-C) 0.8 Mg Tablet 0.8 Mg PO DAILY Hydroxyzine Hcl 25 Mg Tablet 50 Mg PO QMWF Lisinopril 20 Mg Tablet 1 Tab PO DAILY Lantus Solostar (Insulin Glargine,Hum.rec.anlog) 100 Unit/1 Ml Insuln.pen 30 Unit SQ QHS Aspirin 325 Mg Tablet 1 Tab PO DAILY Vitals/I & O Vital Sign - Last 24 Hours 06/11/18 06/11/18 06/11/18 06/11/18 12:00 12:00 12:15 12:30 Temp 98.2 98.2 Pulse 58 58 58 Resp 20 13 16 B/P (MAP) 139/67 (91) 134/56 (82) 119/63 (81) O2 Delivery Nasal Cannula Nasal Cannula Nasal Cannula Nasal Cannula O2 Flow Rate 3.0 3.0 3.0 3.0 06/11/18 06/11/18 06/11/18 06/11/18 12:45 12:50 13:06 13:30 Pulse 58 58 58 Resp 24 18 20 B/P (MAP) 120/62 (81) 119/63 135/61 (85) 108/55 (72) Pulse Ox 94 O2 Delivery Nasal Cannula Nasal Cannula Nasal Cannula O2 Flow Rate 3.0 3.0 3.0 06/11/18 06/11/18 06/11/18 06/11/18 14:00 15:00 15:29 16:00 Pulse 58 62 Resp 18 13 B/P (MAP) 116/54 (74) 119/63 (81) Pulse Ox 96 97 96 O2 Delivery Nasal Cannula Nasal Cannula Nasal Cannula Nasal Cannula O2 Flow Rate 3.0 3.0 3.0 3.0 06/11/18 06/11/18 06/11/18 06/11/18 16:00 17:00 18:00 19:00 Temp 98.4 98.4 Pulse 68 72 80 78 Resp 21 22 26 12 B/P (MAP) 124/58 (80) 138/61 (86) 133/62 (85) 123/58 (79) Pulse Ox 97 96 92 99 O2 Delivery Nasal Cannula Nasal Cannula Nasal Cannula Nasal Cannula O2 Flow Rate 3.0 3.0 3.0 3.0 06/11/18 06/11/18 06/11/18 06/11/18 19:31 20:00 20:00 21:00 Temp 98.2 98.2 Pulse 82 80 Resp 12 24 B/P (MAP) 116/52 (73) 146/64 (91) Pulse Ox 97 93 92 O2 Delivery Nasal Cannula Nasal Cannula Nasal Cannula Nasal Cannula O2 Flow Rate 3.0 3.0 3.0 3.0 06/11/18 06/11/18 06/12/18 06/12/18 22:00 23:00 00:00 00:01 Temp 98.4 98.4 Pulse 80 80 81 Resp 16 16 18 B/P (MAP) 136/49 (78) 136/49 (78) 147/62 (90) Pulse Ox 94 94 94 O2 Delivery Nasal Cannula Nasal Cannula Nasal Cannula Nasal Cannula O2 Flow Rate 3.0 3.0 3.0 3.0 06/12/18 06/12/18 06/12/18 06/12/18 01:00 02:00 03:00 04:00 Pulse 81 79 78 Resp 15 15 15 B/P (MAP) 154/53 (86) 140/63 (88) 140/63 (88) Pulse Ox 95 100 100 O2 Delivery Nasal Cannula Nasal Cannula Nasal Cannula Nasal Cannula O2 Flow Rate 3.0 3.0 3.0 3.0 06/12/18 06/12/18 06/12/18 06/12/18 04:00 05:00 06:00 07:54 Temp 98.2 98.2 Pulse 76 86 73 Resp 15 12 12 B/P (MAP) 140/63 (88) 134/62 (86) 149/68 (95) Pulse Ox 100 100 100 97 O2 Delivery Nasal Cannula Nasal Cannula Nasal Cannula Nasal Cannula O2 Flow Rate 3.0 3.0 3.0 3.0 06/12/18 06/12/18 06/12/18 06/12/18 08:00 08:00 09:00 10:00 Temp 98.6 98.6 Pulse 70 72 70 Resp 25 15 21 B/P (MAP) 131/60 (83) 140/57 (84) 151/60 (90) Pulse Ox 100 100 100 O2 Delivery Nasal Cannula Nasal Cannula Nasal Cannula Nasal Cannula O2 Flow Rate 3.0 3.0 3.0 3.0 06/12/18 11:00 Pulse 73 Resp 18 B/P (MAP) 100/58 (72) Pulse Ox 100 O2 Delivery Nasal Cannula O2 Flow Rate 3.0 Intake and Output 06/11/18 06/11/18 06/12/18 15:00 23:00 07:00 Intake Total 96 ml 547 ml Output Total 0 ml 0 ml 0 ml Balance 96 ml 547 ml 0 ml YULIA DE ANDA III DO Jun 12, 2018 12:04
[2018-06-12] MEDS ORDERED: PROTAMINE 50 MG/5 ML VIAL. IV ONE (12:08)
[2018-06-12] MEDS ORDERED: SURGICEL FIBRILLAR 1X2 EACH. ONE (12:08)
[2018-06-12] MEDS ORDERED: HEPARIN for IV BOLUS 10,000 UNIT/10 ML VIAL. ONE ×2 (12:08→14:59)
--- NOTE | 2018-06-12 12:11 | NUR ---
1200 Confusion cleared,multiple visitors at bedside. Patient able to recall am events and relay them to friends. No similar issues now. Anesthesia in. Informed of "poor" IV access. LR started per order
[2018-06-12] MEDS ORDERED: DEXAMETHASONE SOD PHOS 20 MG/5 ML VIAL. ONE (12:17)
[2018-06-12] MEDS ORDERED: VECURONIUM BOLUS 10 MG VIAL. IV ONE (12:17)
[2018-06-12] MEDS ORDERED: fentaNYL PF VIAL 100 MCG/2 ML VIAL ONE (12:17)
[2018-06-12] MEDS ORDERED: ETOMIDATE 20 MG/10 ML VIAL. IV ONE (12:17)
[2018-06-12] MEDS ORDERED: ONDANSETRON PF 4 MG/2 ML VIAL. ONE (12:17)
[2018-06-12] MEDS ORDERED: LIDOCAINE 2% PF 5 ML VIAL. ONE (12:17)
[2018-06-12] MEDS ORDERED: FAMOTIDINE 20 MG/2 ML VIAL ONE (12:17)
[2018-06-12] MEDS ORDERED: 0.9 % SODIUM CHLORIDE 20 ML VIAL. IJ ONE ×2 (12:17→14:29)
[2018-06-12] MEDS ORDERED: PROPOFOL 20 ML IV ONE (12:17)
[2018-06-12] MEDS ORDERED: VASOPRESSIN 20 UNIT/ML VIAL. ONE (12:18)
[2018-06-12] MEDS ORDERED: HYDROmorphone 2 MG/ML VIAL ONE (12:18)
[2018-06-12] MEDS ORDERED: ALBUMIN HUMAN 5% 0 ML IV ONE (12:19)
[2018-06-12] MEDS ORDERED: CISATRACURIUM BESYLATE IV ONE (12:20)
--- NOTE | 2018-06-12 12:27 | NUR ---
NOTE AM meds held/NPO for EVAR scheduled at 100 3/.
[2018-06-12] MEDS ORDERED: MIDAZOLAM HCL/PF 2 MG/2 ML VIAL. ONE (12:30)
[2018-06-12] MEDS ORDERED: IODIXANOL 320 MG/ML 100 ML VIAL. ONE ×2 (12:55→15:13)
[2018-06-12] MEDS ORDERED: IODIXANOL 320 MG/ML 50ML VIAL. ONE (12:56)
--- NOTE | 2018-06-12 14:04 | NUR ---
1340 To OR per bed w monitor
[2018-06-12] MEDS ORDERED: BUPIVACAINE-EPI 0.25%-1:200000 MPF 30 ML VIAL. ONE (14:41)
[2018-06-12] MEDS ORDERED: IODIXANOL 320 MG/ML 100 ML VIAL. IV ONE (15:30)
[2018-06-12] MEDS ORDERED: GLYCOPYRROLATE 1 MG/5 ML VIAL. ONE (15:33)
[2018-06-12] MEDS ORDERED: CONTRAST GIVEN. MC PRN (15:45)
[2018-06-12] MEDS ORDERED: SEVOFLURANE > 120 MINUTES. IH ONE (15:53)
--- NOTE | 2018-06-12 16:47 | PDOC4 ---
OPERATIVE NOTE Date: Date: Jun 12, 2018 Pre-Op Diagnosis: Abdominal Aoric aneurysm 6cm asymptomatic ESRD on HD Post-Op Diagnosis: same Procedure Performed: 1) Bilateral percutaneous access and closure for delivery of endograft greater than 12 Tog[place]ese sheath CPT 79166, [id number] 2) endovascular repair of abdominal aortic aneurysm using bifurcated device ( [place] Excluder) CPT 51299 Surgeon: Marisol Jamil M.D. Anesthesia Type: Gen. Blood Loss: 50 mL Specimans Obtained: None Findings: Large AAA with a short infrarenal neck in a patient with end-stage renal disease on hemodialysis and chronically occluded renal arteriesextending to the level of the SMA gave a good neck for endograft seal therefore the graft was taken to the inferior border of the SMA proximally and into the distal common iliac arteries distally No complications No evidence of endoleak on final films SMA and celiac widely patent on final films Palpable popliteal pulses and excellent DP signals at both feet at the end of the case Vascular devices use: [place] Excluder 23 mm x 12 mm x 16 cm main body delivered up the right side [place] Excluder 12 mm x 14 cm left iliac limb (contralateral side from main body) Complications: None Operative Note: Patient was escorted to the endovascular hybrid room and placed supine on the table. After placement appropriate lines and monitoring devices anesthesia was induced without difficulty. The abdomen, groins and both thighs were prepped and draped in usual sterile fashion. A timeout was performed. Attention was directed to the right groin where local anesthetic was injected in the right common femoral artery was fluoroscopically marked over the femoral head and examined with ultrasound. Under real-time ultrasound guidance local anesthetic was injected in a micropuncture needle was used to access the right common femoral artery in retrograde fashion. The Seldinger technique was used to place a micropuncture wire and exchanged the needle for a micropuncture sheath. Further local anesthetic was injected in knife was used to make a small incision around the sheath and the tract down the femoral artery was dilated. The sheath is used to introduce a Paiz wire and then this was used to introduce to opposing Pro glide devices in the standard preclosed technique. After these were both deployed in the Bentson wires were placed an 8 Togolese sheath was placed in the right groin and this was aspirated and flushed without difficulty. This was repeated identically on the left side so that we had bilateral 8 Togolese femoral access with pre-close sutures in place. Patient was given systemic heparin. On each side KMP catheter was used to exchange the Paiz wire for a stiff Lunderquist/Amplatz wire which was placed in the proximal descending thoracic aorta under fluoroscopic guidance and the length of the wire was marked on the back table. On the left side I used the stiff wire to exchange the 8 Tog[place]ese sheath for a 12 [place] Glenbrook dry seal sheath was passed under fluoroscopic guidance and the distal abdominal aorta without difficulty. This was aspirated and flushed without difficulty. This was repeated on the right side, exchanging the 8 Tog[place]ese sheath for a 16 [place] Glenbrook dry seal sheath. With this in good position, from the left side I introduced a flush catheter and this was placed into the perivisceral aorta. Given the fact that the patient was artery on hemodialysis and has a nonfunctioning kidney we elected to cover the renal arteries and take the endograft to the inferior border the SMA to give maximum seal zone as there was limited infrarenal neck. The image intensifier was placed in the lateral position and several and grams were obtained until I identified the origin the SMA. This is clearly marked and from the right side I introduced the [place] Excluder 23mm x 12mm x 16 cm main body. This was deployed until it landed at the inferior border of the SMA and angiography to the catheter confirmed good flow through the SMA and good position of the graft. The graft was deployed until the gate opened in the right (ipsilateral) limb remained constrained The image intensifier was then brought back to an AP position and from the left side the catheter was pulled back over a Glidewire. I then used the catheter and the Glidewire to cannulate the gate and was easily able to pass the wire into the thoracic aorta. The catheter was advanced over this and spun within the main body and then used to place the stiff wire. The catheter was removed and then I delivered the compliant balloon half way into the gate retirement into the aneurysm and inflated here to confirm placement. The balloon was removed and then with an image intensifier in an oblique fashion angiogram from the left femoral sheath was used to mykel the common iliac bifurcation. There was a pre-existing stent in the left common artery that was small and this was dilated with a 10 mm balloon. Angiogram showed better apposition of the stent the vessel wall and the Glenbrook iliac limb 12mm x 14 cm was delivered with good overlap and good distal seal zone and then deployed landing just above the iliac bifurcation. Attention was directed to the right side were the image intensifier was placed in an ARABIC position and the sheath was pulled back to fully expose the right/ ipsilateral limb. An Karin Moises was obtained to the sheath marking the right hypogastric artery origin and the remainder of the main body/ipsilateral limb was deployed. This ended just above the right iliac bifurcation. The compliant balloon was used to balloon the seals zones and overlap zones from both sides and then aortograms in 2 views showed good position of the graft , no evidence of endoleak, excellent flow through the graft limbs, the SMA and celiac widely patent and the internal and external iliac arteries widely patent. On the right side the sheath was removed with the dilator in place. This was done slowly and as the sheath was brought out the pre-close sutures were deployed to obtain excellent hemostasis over the wire. The wire was then removed and the sutures were tightened down and divided below the skin level. There was excellent hemostasis at the right groin. With the flush catheter in the endograft main body and antrum was obtained and contrast down the right limb was shown to have good flow with widely patent right common femoral artery without stenosis or extravasation. The dilator was replaced on the left over stiff wire. As the sheath was removed the Pro glide sutures were tightened down with excellent hemostasis the left femoral access site. Excellent hemostasis was ensured in both groins. Anal cancer Doppler was used to confirm good signals in both feet and then the wounds were irrigated and closed with deep 2-0 Vicryl, subcuticular 4-0 Vicryl, and Dermabond. Patient was awakened and extubated upper and escorted to recovery in stable condition. There she was found to have strong palpable popliteal pulses bilaterally with excellent signals in both feet. She had no neurologic deficit noted lower extremity is awake alert and followed commands denying any abdominal pain or back pain. There are no complications, patient tolerated the procedure well throughout, at the end of the case sponge, needle, and instrument counts reported to me as correct 2. MARISOL JAMIL MD Jun 12, 2018 16:47
--- NOTE | 2018-06-12 17:40 | NUR ---
1715 return from OR,[place]/sleepy. A-Line dc'd per order. [facility] functional. Family in briefly to see. Cont to monitor Addendum: 06/12/18 at 1812 by Xiomara Encarnacion RN Rei Ching AAA Endoprosthesis REF [id number]/SN [id number] and REF [id number]/SN [id number] placed. Cards will be made available to patient on discharge
--- NOTE | 2018-06-12 19:48 | RAD ---
CHEST AP ONLY History: POST AAA REPAIR Comparison: June 08, 2018 Findings: Single view of the chest is submitted. There is now a right internal jugular catheter with the tip in the region of the right atrium, no pneumothorax. Pericardial cardiac silhouette is again enlarged. There is again probable left base airspace opacity and probable at least small left pleural effusion although poorly characterized due to the pericardial cardiac silhouette. There is some other interstitial opacity bilaterally unchanged. No pneumothorax is identified. There is degenerative change of the shoulders. Impression: 1. There is now a right internal jugular venous catheter with the tip in the region of the right atrium. 2. There is again enlargement of the pericardial cardiac silhouette, obscures left lung base although suspected left base airspace opacity and probable small left pleural effusion as seen previously. Electronically signed by: Lg Padilla MD (06/12/2018 7:45 PM) [facility]
[2018-06-12] MEDS: INSULIN GLARGINE 300 UNITS/3 ML INSULN.PEN. SQ SCH (21:00)
[2018-06-12] MEDS: ATORVASTATIN CALCIUM 40 MG TABLET. PO SCH (23:06)
[2018-06-13] VITALS (15 sets, daily range): BP systolic 93–150; BP diastolic 48–74
[2018-06-13 07:48] LABS: BASO % 0 % (0-3); EOS % 0 % (0-3); HEMATOCRIT 31.2 % (36.0-47.0); HEMOGLOBIN 9.9 g/dL (12.0-15.5); LYMPH # 0.4 x10^3/uL (1.0-4.8); LYMPH % 4 % (24-48); MEAN CORPUSCULAR HEMOGLOBIN 32 pg (25-35); MEAN CORPUSCULAR HGB CONC 32 g/dL (31-37); MEAN CORPUSCULAR VOLUME 100 fL (79-100); MONO % 11 % (0-9); NEUT # 8.1 x10^3uL (1.8-7.7); NEUT % 85 % (31-73); PLATELET COUNT 205 x10^3/uL (140-400); RED BLOOD COUNT 3.11 x10^6/uL (3.50-5.40); RED CELL DISTRIBUTION WIDTH 15.5 % (11.5-14.5); WHITE BLOOD COUNT 9.6 x10^3/uL (4.0-11.0)
[2018-06-13 07:59] LABS: CALCIUM 6.9 mg/dL (8.5-10.1); CREATININE 6.5 mg/dL (0.6-1.0); GFR 7.6; POTASSIUM 5.3 mmol/L (3.5-5.1)
[2018-06-13] MEDS: LISINOPRIL 20 MG TABLET PO SCH (09:00)
[2018-06-13] MEDS: METOPROLOL SUCC 24HR ER 100 MG TAB.ER.24H. PO SCH (09:00)
[2018-06-13] MEDS: BUDESONIDE 0.5 MG/2 ML NEBU. NEB SCH ×2 (09:03→20:13)
[2018-06-13] MEDS: ALBUTEROL SULFATE 2.5 MG/3 ML NEBU. NEB SCH ×4 (09:03→20:12)
[2018-06-13] MEDS: ASPIRIN 325 MG TABLET PO SCH (09:21)
[2018-06-13] MEDS: FUROSEMIDE 40 MG TABLET. PO SCH (09:21)
[2018-06-13] MEDS: DICLOFENAC SODIUM 1% TOPICAL GEL 100GM TUBE. TP SCH ×2 (09:22→21:34)
[2018-06-13] MEDS: HYDROcodone/APAP 5/325MG 1 TAB TABLET PO PRN ×2 (09:42→16:07)
--- NOTE | 2018-06-13 10:00 | PDOC ---
PULMONARY PROGRESS NOTES Subjective patient not SOA, currently on hemodialysis Vitals Vital Signs Date Time Temp Pulse Resp B/P (MAP) Pulse Ox O2 Delivery O2 Flow Rate FiO2 06/13/18 09:42 98 Nasal Cannula 2.0 06/13/18 06:00 68 12 93/67 (76) 06/13/18 04:00 97.4 97.4 ROS: No Nausea, No Chest Pain, No Abdominal Pain General: Alert Lungs: Clear Cardiovascular: S1, S2 Abdomen: Soft, Non-tender, Other Neuro Exam: Alert Extremities: No Edema Skin: Warm Labs Laboratory Tests Test 06/11/18 12:37 06/11/18 14:05 06/11/18 14:20 06/11/18 16:52 Glucose (Fingerstick) 43 mg/dL (70-99) 56 mg/dL (70-99) 89 mg/dL (70-99) Heparin Anti-Xa Act, Unfractionated 0.15 IU/mL (0.30-0.70) Test 06/11/18 23:40 06/12/18 04:30 06/12/18 07:19 06/12/18 12:51 Glucose (Fingerstick) 251 mg/dL (70-99) 188 mg/dL (70-99) 77 mg/dL (70-99) White Blood Count 4.3 x10^3/uL (4.0-11.0) Red Blood Count 3.40 x10^6/uL (3.50-5.40) Hemoglobin 10.7 g/dL (12.0-15.5) Hematocrit 34.3 % (36.0-47.0) Mean Corpuscular Volume 101 fL (79-100) Mean Corpuscular Hemoglobin 32 pg (25-35) Mean Corpuscular Hemoglobin Concent 31 g/dL (31-37) Red Cell Distribution Width 15.6 % (11.5-14.5) Platelet Count 209 x10^3/uL (140-400) Neutrophils (%) (Auto) 92 % (31-73) Lymphocytes (%) (Auto) 3 % (24-48) Monocytes (%) (Auto) 6 % (0-9) Eosinophils (%) (Auto) 0 % (0-3) Basophils (%) (Auto) 0 % (0-3) Neutrophils # (Auto) 3.9 x10^3uL (1.8-7.7) Lymphocytes # (Auto) 0.1 x10^3/uL (1.0-4.8) Monocytes # (Auto) 0.2 x10^3/uL (0.0-1.1) Eosinophils # (Auto) 0.0 x10^3/uL (0.0-0.7) Basophils # (Auto) 0.0 x10^3/uL (0.0-0.2) Sodium Level 142 mmol/L (136-145) Potassium Level 5.0 mmol/L (3.5-5.1) Chloride Level 103 mmol/L (98-107) Carbon Dioxide Level 30 mmol/L (21-32) Anion Gap 9 (6-14) Blood Urea Nitrogen 30 mg/dL (7-20) Creatinine 5.0 mg/dL (0.6-1.0) Estimated GFR (Cockcroft-Gault) 10.2 Glucose Level 226 mg/dL (70-99) Calcium Level 7.6 mg/dL (8.5-10.1) Test 06/12/18 23:05 06/13/18 07:40 06/13/18 09:03 Glucose (Fingerstick) 82 mg/dL (70-99) 74 mg/dL (70-99) White Blood Count 9.6 x10^3/uL (4.0-11.0) Red Blood Count 3.11 x10^6/uL (3.50-5.40) Hemoglobin 9.9 g/dL (12.0-15.5) Hematocrit 31.2 % (36.0-47.0) Mean Corpuscular Volume 100 fL (79-100) Mean Corpuscular Hemoglobin 32 pg (25-35) Mean Corpuscular Hemoglobin Concent 32 g/dL (31-37) Red Cell Distribution Width 15.5 % (11.5-14.5) Platelet Count 205 x10^3/uL (140-400) Neutrophils (%) (Auto) 85 % (31-73) Lymphocytes (%) (Auto) 4 % (24-48) Monocytes (%) (Auto) 11 % (0-9) Eosinophils (%) (Auto) 0 % (0-3) Basophils (%) (Auto) 0 % (0-3) Neutrophils # (Auto) 8.1 x10^3uL (1.8-7.7) Lymphocytes # (Auto) 0.4 x10^3/uL (1.0-4.8) Monocytes # (Auto) 1.0 x10^3/uL (0.0-1.1) Eosinophils # (Auto) 0.0 x10^3/uL (0.0-0.7) Basophils # (Auto) 0.0 x10^3/uL (0.0-0.2) Sodium Level 141 mmol/L (136-145) Potassium Level 5.3 mmol/L (3.5-5.1) Chloride Level 103 mmol/L (98-107) Carbon Dioxide Level 30 mmol/L (21-32) Anion Gap 8 (6-14) Blood Urea Nitrogen 43 mg/dL (7-20) Creatinine 6.5 mg/dL (0.6-1.0) Estimated GFR (Cockcroft-Gault) 7.6 Glucose Level 49 mg/dL (70-99) Calcium Level 6.9 mg/dL (8.5-10.1) Laboratory Tests Test 06/12/18 12:51 06/12/18 23:05 06/13/18 07:40 06/13/18 09:03 Glucose (Fingerstick) 77 mg/dL (70-99) 82 mg/dL (70-99) 74 mg/dL (70-99) White Blood Count 9.6 x10^3/uL (4.0-11.0) Red Blood Count 3.11 x10^6/uL (3.50-5.40) Hemoglobin 9.9 g/dL (12.0-15.5) Hematocrit 31.2 % (36.0-47.0) Mean Corpuscular Volume 100 fL (79-100) Mean Corpuscular Hemoglobin 32 pg (25-35) Mean Corpuscular Hemoglobin Concent 32 g/dL (31-37) Red Cell Distribution Width 15.5 % (11.5-14.5) Platelet Count 205 x10^3/uL (140-400) Neutrophils (%) (Auto) 85 % (31-73) Lymphocytes (%) (Auto) 4 % (24-48) Monocytes (%) (Auto) 11 % (0-9) Eosinophils (%) (Auto) 0 % (0-3) Basophils (%) (Auto) 0 % (0-3) Neutrophils # (Auto) 8.1 x10^3uL (1.8-7.7) Lymphocytes # (Auto) 0.4 x10^3/uL (1.0-4.8) Monocytes # (Auto) 1.0 x10^3/uL (0.0-1.1) Eosinophils # (Auto) 0.0 x10^3/uL (0.0-0.7) Basophils # (Auto) 0.0 x10^3/uL (0.0-0.2) Sodium Level 141 mmol/L (136-145) Potassium Level 5.3 mmol/L (3.5-5.1) Chloride Level 103 mmol/L (98-107) Carbon Dioxide Level 30 mmol/L (21-32) Anion Gap 8 (6-14) Blood Urea Nitrogen 43 mg/dL (7-20) Creatinine 6.5 mg/dL (0.6-1.0) Estimated GFR (Cockcroft-Gault) 7.6 Glucose Level 49 mg/dL (70-99) Calcium Level 6.9 mg/dL (8.5-10.1) Medications Active Scripts Medications Dose Route/Sig Max Daily Dose Days Date Category Diltiazem 24HR Cd (Diltiazem Hcl) 180 Mg Cap.er.24h 180 Mg PO DAILY 06/08/18 Reported Lipitor (Atorvastatin Calcium) 40 Mg Tablet 40 Mg PO HS 06/08/18 Reported Hydrocodone-Acetamin 5-325 mg (Hydrocodone/Acetaminophen) 1 Each Tablet 1 Each PO PRN Q6HRS PRN 06/08/18 Reported Furosemide 40 Mg Tablet 40 Mg PO DAILY 06/08/18 Reported Symbicort 160-4.5 Mcg Inhaler (Budesonide/Formoterol Fumarate) 10.2 Gm Hfa.aer.ad 2 Puff IH BID 06/08/18 Reported Toprol Xl (Metoprolol Succinate) 100 Mg Tab.er.24h 100 Mg PO DAILY 06/08/18 Reported Proair Hfa Inhaler (Albuterol Sulfate) 8.5 Gm Hfa.aer.ad 1 Puff INH PRN Q6HRS PRN 06/08/18 Reported Amiodarone Hcl 200 Mg Tablet 200 Mg PO DAILY MDD 1 03/24/18 Rx Eliquis (Apixaban) 5 Mg Tablet 5 Mg PO BID MDD ` 03/24/18 Rx Marina-Jayme Tablet (Folic Acid/Vitamin B Comp W-C) 0.8 Mg Tablet 0.8 Mg PO DAILY 03/21/18 Reported Hydroxyzine Hcl 25 Mg Tablet 50 Mg PO QMWF 03/21/18 Reported Lisinopril 20 Mg Tablet 1 Tab PO DAILY 11/06/17 Reported Lantus Solostar (Insulin Glargine,Hum.rec.anlog) 100 Unit/1 Ml Insuln.pen 30 Unit SQ QHS 09/03/15 Reported [Albuterol Sulfate] 2.5 MG/3 ML Nebu 2.5 Mg NEB PRN Q4HRS PRN 12/26/14 Rx Aspirin 325 Mg Tablet 1 Tab PO DAILY 01/25/14 Reported Impression . IMPRESSION: 1. Chronic respiratory failure. Respiratory status appears to be compensated. Continue oxygen supplementation. 2. 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 3. Coronary artery disease, status post previous cardiac catheterization and stent placement. 4. Recent CT revealing abdominal aortic aneurysm measuring 6 cm; the patient to be seen by cardiovascular surgeon. 5. Renal failure, on hemodialysis. 6. BRADYCARDIA A/P: Asymptomatic 6cm AAA POD #1 3 1) Bilateral percutaneous access and closure for delivery of endograft greater than 12 Welsh sheath CPT 63754, [id number] 2) endovascular repair of abdominal aortic aneurysm using bifurcated device ( [place] Excluder) CPT 90176 CATH Conclusion 1. Nonobstructive coronary artery disease with 30% in-stent restenosis involving the distal segment of the right coronary artery 2. Posterobasal wall hypokinesis with ejection fraction estimated at 45%. Recommendations Medical Therapy Plan . maintain fluid balance follow cardiovascular surgeon input respiratory status is compensated EARL MARTINEZ MD Jun 13, 2018 10:00
--- NOTE | 2018-06-13 10:11 | PDOC ---
PROGRESS NOTES Subjective Subjective She admits some pain right shoulder and low back and sore throat. Objective Objective Vital Signs Date Time Temp Pulse Resp B/P (MAP) Pulse Ox O2 Delivery O2 Flow Rate FiO2 06/13/18 09:42 98 Nasal Cannula 2.0 06/13/18 06:00 68 12 93/67 (76) 06/13/18 04:00 97.4 97.4 Intake and Output 06/13/18 07:00 Intake Total 200 ml Output Total 50 ml Balance 150 ml Intake Oral 200 ml Output Urine Total 0 ml Estimated Blood Loss 50 ml Physical Exam Physical Exam She is supine in bed and alert and continues with weakness of rotator cuff muscles bilaterally. Plan Plan of Care To consider injecting her right shoulder and right sacroiliac joint if pain is interfering with her mobility and self care. Comment Review of Relevant I have reviewed the following items mykel (where applicable) has been applied. Labs Laboratory Tests Test 06/11/18 12:37 06/11/18 14:05 06/11/18 14:20 06/11/18 16:52 Glucose (Fingerstick) 43 mg/dL (70-99) 56 mg/dL (70-99) 89 mg/dL (70-99) Heparin Anti-Xa Act, Unfractionated 0.15 IU/mL (0.30-0.70) Test 06/11/18 23:40 06/12/18 04:30 06/12/18 07:19 06/12/18 12:51 Glucose (Fingerstick) 251 mg/dL (70-99) 188 mg/dL (70-99) 77 mg/dL (70-99) White Blood Count 4.3 x10^3/uL (4.0-11.0) Red Blood Count 3.40 x10^6/uL (3.50-5.40) Hemoglobin 10.7 g/dL (12.0-15.5) Hematocrit 34.3 % (36.0-47.0) Mean Corpuscular Volume 101 fL (79-100) Mean Corpuscular Hemoglobin 32 pg (25-35) Mean Corpuscular Hemoglobin Concent 31 g/dL (31-37) Red Cell Distribution Width 15.6 % (11.5-14.5) Platelet Count 209 x10^3/uL (140-400) Neutrophils (%) (Auto) 92 % (31-73) Lymphocytes (%) (Auto) 3 % (24-48) Monocytes (%) (Auto) 6 % (0-9) Eosinophils (%) (Auto) 0 % (0-3) Basophils (%) (Auto) 0 % (0-3) Neutrophils # (Auto) 3.9 x10^3uL (1.8-7.7) Lymphocytes # (Auto) 0.1 x10^3/uL (1.0-4.8) Monocytes # (Auto) 0.2 x10^3/uL (0.0-1.1) Eosinophils # (Auto) 0.0 x10^3/uL (0.0-0.7) Basophils # (Auto) 0.0 x10^3/uL (0.0-0.2) Sodium Level 142 mmol/L (136-145) Potassium Level 5.0 mmol/L (3.5-5.1) Chloride Level 103 mmol/L (98-107) Carbon Dioxide Level 30 mmol/L (21-32) Anion Gap 9 (6-14) Blood Urea Nitrogen 30 mg/dL (7-20) Creatinine 5.0 mg/dL (0.6-1.0) Estimated GFR (Cockcroft-Gault) 10.2 Glucose Level 226 mg/dL (70-99) Calcium Level 7.6 mg/dL (8.5-10.1) Test 06/12/18 23:05 06/13/18 07:40 06/13/18 09:03 Glucose (Fingerstick) 82 mg/dL (70-99) 74 mg/dL (70-99) White Blood Count 9.6 x10^3/uL (4.0-11.0) Red Blood Count 3.11 x10^6/uL (3.50-5.40) Hemoglobin 9.9 g/dL (12.0-15.5) Hematocrit 31.2 % (36.0-47.0) Mean Corpuscular Volume 100 fL (79-100) Mean Corpuscular Hemoglobin 32 pg (25-35) Mean Corpuscular Hemoglobin Concent 32 g/dL (31-37) Red Cell Distribution Width 15.5 % (11.5-14.5) Platelet Count 205 x10^3/uL (140-400) Neutrophils (%) (Auto) 85 % (31-73) Lymphocytes (%) (Auto) 4 % (24-48) Monocytes (%) (Auto) 11 % (0-9) Eosinophils (%) (Auto) 0 % (0-3) Basophils (%) (Auto) 0 % (0-3) Neutrophils # (Auto) 8.1 x10^3uL (1.8-7.7) Lymphocytes # (Auto) 0.4 x10^3/uL (1.0-4.8) Monocytes # (Auto) 1.0 x10^3/uL (0.0-1.1) Eosinophils # (Auto) 0.0 x10^3/uL (0.0-0.7) Basophils # (Auto) 0.0 x10^3/uL (0.0-0.2) Sodium Level 141 mmol/L (136-145) Potassium Level 5.3 mmol/L (3.5-5.1) Chloride Level 103 mmol/L (98-107) Carbon Dioxide Level 30 mmol/L (21-32) Anion Gap 8 (6-14) Blood Urea Nitrogen 43 mg/dL (7-20) Creatinine 6.5 mg/dL (0.6-1.0) Estimated GFR (Cockcroft-Gault) 7.6 Glucose Level 49 mg/dL (70-99) Calcium Level 6.9 mg/dL (8.5-10.1) Laboratory Tests Test 06/12/18 12:51 06/12/18 23:05 06/13/18 07:40 06/13/18 09:03 Glucose (Fingerstick) 77 mg/dL (70-99) 82 mg/dL (70-99) 74 mg/dL (70-99) White Blood Count 9.6 x10^3/uL (4.0-11.0) Red Blood Count 3.11 x10^6/uL (3.50-5.40) Hemoglobin 9.9 g/dL (12.0-15.5) Hematocrit 31.2 % (36.0-47.0) Mean Corpuscular Volume 100 fL (79-100) Mean Corpuscular Hemoglobin 32 pg (25-35) Mean Corpuscular Hemoglobin Concent 32 g/dL (31-37) Red Cell Distribution Width 15.5 % (11.5-14.5) Platelet Count 205 x10^3/uL (140-400) Neutrophils (%) (Auto) 85 % (31-73) Lymphocytes (%) (Auto) 4 % (24-48) Monocytes (%) (Auto) 11 % (0-9) Eosinophils (%) (Auto) 0 % (0-3) Basophils (%) (Auto) 0 % (0-3) Neutrophils # (Auto) 8.1 x10^3uL (1.8-7.7) Lymphocytes # (Auto) 0.4 x10^3/uL (1.0-4.8) Monocytes # (Auto) 1.0 x10^3/uL (0.0-1.1) Eosinophils # (Auto) 0.0 x10^3/uL (0.0-0.7) Basophils # (Auto) 0.0 x10^3/uL (0.0-0.2) Sodium Level 141 mmol/L (136-145) Potassium Level 5.3 mmol/L (3.5-5.1) Chloride Level 103 mmol/L (98-107) Carbon Dioxide Level 30 mmol/L (21-32) Anion Gap 8 (6-14) Blood Urea Nitrogen 43 mg/dL (7-20) Creatinine 6.5 mg/dL (0.6-1.0) Estimated GFR (Cockcroft-Gault) 7.6 Glucose Level 49 mg/dL (70-99) Calcium Level 6.9 mg/dL (8.5-10.1) Medications Current Medications Sodium Chloride 1,000 ml @ 100 mls/hr Q10H IV Last administered on 06/07/18at 19:56; Start 06/07/18 at 19:18; Stop 06/08/18 at 05:17; Status DC Ondansetron HCl (Zofran) 4 mg PRN Q8HRS PRN IV NAUSEA/VOMITING 1ST CHOICE; Start 06/07/18 at 21:00; Stop 06/08/18 at 20:59; Status DC Morphine Sulfate (Morphine Sulfate) 2 mg PRN Q2HR PRN IV SEVERE PAIN; Start at 21:00; Stop 06/08/18 at 06:39; Status DC Morphine Sulfate (Morphine Sulfate) 2 mg PRN Q2HR PRN IV SEVERE PAIN; Start 06/08/18 at 06:39; Stop 06/08/18 at 20:59; Status DC Amiodarone HCl (Cordarone) 200 mg DAILY PO Last administered on 06/11/18 12:50 ; Start 06/08/18 at 12:00 Apixaban (Eliquis) 5 mg BID PO ; Start 06/08/18 at 12:00; Stop 06/08/18 at 15:30; Status DC Aspirin (Hung Aspirin) 325 mg DAILY PO Last administered on 06/13/18 09:21; Start 06/08/18 at 12:00 Atorvastatin Calcium (Lipitor) 40 mg HS PO Last administered on 06/12/18 23:06 ; Start 06/08/18 at 21:00 Furosemide (Lasix) 40 mg DAILY PO Last administered on 06/13/18 09:21; Start at 12:00 Acetaminophen/ Hydrocodone Bitart (Lortab 5/325) 1 tab PRN Q6HRS PRN PO back pain Last administered on 06/13/18 09:42; Start 06/08/18 at 11:30 Insulin Glargine (Lantus) 30 units QHS SQ Last administered on 06/11/18 23:41; Start 06/08/18 at 21:00 Lisinopril (Prinivil) 20 mg DAILY PO Last administered on 06/10/18 09:08; Start 06/08/18 at 12:00 Metoprolol Succinate (Toprol Xl) 100 mg DAILY PO Last administered on 06/10/18 12:07; Start 06/08/18 at 12:00 Non-Formulary Medication (Budesonide/ Formoterol Fumarate (Symbicort 160-4.5 Mcg Inhaler)) 2 puff BID IH ; Start 06/08/18 at 21:00; Status UNV Diltiazem HCl (Cardizem 24hr Cd) 180 mg DAILY PO Last administered on 06/10/18 12:07; Start 06/08/18 at 12:00 Hydroxyzine Pamoate (Vistaril) 50 mg QMWF PO Last administered on 06/08/18 16: 49; Start 06/08/18 at 16:00 Non-Formulary Medication ([Albuterol Sulfate] ) 2.5 mg PRN Q4HRS PRN NEB SHORTNESS OF BREATH; Start 06/08/18 at 11:30; Status UNV Budesonide (Pulmicort) 0.5 mg RTBID NEB Last administered on 06/13/18at 09:03; Start 06/08/18 at 12:00 Albuterol Sulfate (Ventolin Neb Soln) 2.5 mg RTQID NEB Last administered on 06/13at 09:03; Start 06/08/18 at 12:00 Albuterol Sulfate (Ventolin Neb Soln) 2.5 mg PRN Q4HRS PRN NEB SHORTNESS OF BREATH; Start 06/08/18 at 11:30 Sodium Chloride 1,000 ml @ 1,000 mls/hr Q1H PRN IV hypotension; Start 06/08/18 at 12:22; Stop 06/08/18 at 18:21; Status DC Diphenhydramine HCl (Benadryl) 25 mg 1X PRN PRN IV ITCHING; Start 06/08/18 at 12 :30; Stop 06/09/18 at 12:29; Status DC Diphenhydramine HCl (Benadryl) 25 mg 1X PRN PRN IV ITCHING; Start 06/08/18 at 12 :30; Stop 06/09/18 at 12:29; Status DC Sodium Chloride 1,000 ml @ 400 mls/hr Q2H30M PRN IV PATENCY; Start 06/08/18 at 12:22; Stop 06/09/18 at 00:21; Status DC Info (PHARMACY MONITORING -- do not chart) 1 each PRN DAILY PRN MC SEE COMMENTS ; Start 06/08/18 at 12:30 Prednisone (Prednisone) 20 mg 1X ONCE PO Last administered on 06/08/18at 18:04; Start 06/08/18 at 18:00; Stop 06/08/18 at 18:01; Status DC Prednisone (Prednisone) 20 mg 1X ONCE PO Last administered on 06/08/18at 21:12; Start 06/08/18 at 22:00; Stop 06/08/18 at 22:01; Status DC Prednisone (Prednisone) 20 mg 1X ONCE PO Last administered on 06/09/18at 06:15; Start 06/09/18 at 06:00; Stop 06/09/18 at 06:01; Status DC Diphenhydramine HCl (Benadryl) 50 mg PRN 1X PRN PO COMMENTS Last administered on 06/09/18at 08:04; Start 06/08/18 at 14:45; Stop 06/09/18 at 14:44; Status DC Enoxaparin Sodium (Lovenox Per Pharmacy Treatment Dosing) 1 each PRN DAILY PRN MC SEE COMMENTS; Start 06/08/18 at 15:30; Status Cancel Iohexol (Omnipaque 350 Mg/ml) 90 ml 1X ONCE IV Last administered on 06/09/18at 08:56; Start 06/09/18 at 09:00; Stop 06/09/18 at 09:01; Status DC Info (CONTRAST GIVEN -- Rx MONITORING) 1 each PRN DAILY PRN MC SEE COMMENTS; Start 06/09/18 at 09:00; Stop 06/11/18 at 08:59; Status DC Diclofenac Sodium (Voltaren) 1 evgeny BID TP Last administered on 06/13/18at 09:22; Start 06/09/18 at 13:30 Heparin Sodium/ Dextrose 500 ml @ 0 mls/hr CONT PRN IV SEE I/O RECORD Last administered on 06/10/18at 12:14; Start 06/10/18 at 11:45; Stop 06/11/18 at 02:46; Status DC Heparin Sodium (Porcine) (Heparin Sodium) 1,700 unit PRN Q6HRS PRN IV FOR UFH LEVEL LESS THAN 0.2; Start 06/10/18 at 11:45; Stop 06/12/18 at 12:24; Status DC Info (Anti-Coagulation Monitoring By Pharmacy) 1 each PRN DAILY PRN MC SEE COMMENTS Last administered on 06/11/18at 16:33; Start 06/10/18 at 11:45; Stop at 11:01; Status DC Sodium Chloride 250 ml @ 500 mls/hr 1X ONCE IV Last administered on 06/11/18at 03:00; Start 06/11/18 at 03:00; Stop 06/11/18 at 03:29; Status DC Dopamine HCl/ Dextrose 250 ml @ 5.19 mls/hr CONT PRN IV SEE I/O RECORD; Start 06/11/18 at 03:00; Stop 06/12/18 at 12:24; Status DC Ondansetron HCl (Zofran) 4 mg PRN Q6HRS PRN IV NAUSEA/VOMITING 1ST CHOICE Last administered on 06/11/18at 04:51; Start 06/11/18 at 03:15 Morphine Sulfate (Morphine Sulfate) 2 mg PRN Q4HRS PRN IV SEVERE PAIN; Start at 03:15; Stop 06/11/18 at 10:41; Status DC Sodium Chloride 250 ml @ 500 mls/hr 1X ONCE IV Last administered on 06/11/18at 03:30; Start 06/11/18 at 03:30; Stop 06/11/18 at 03:59; Status DC Iohexol (Omnipaque 350 Mg/ml) 90 ml 1X ONCE IV Last administered on 06/11/18at 04:02; Start 06/11/18 at 04:00; Stop 06/11/18 at 04:01; Status DC Diphenhydramine HCl (Benadryl) 25 mg 1X ONCE IV Last administered on 06/11/18at 04:15; Start 06/11/18 at 04:00; Stop 06/11/18 at 04:01; Status DC Info (CONTRAST GIVEN -- Rx MONITORING) 1 each PRN DAILY PRN MC SEE COMMENTS; Start 06/11/18 at 03:30; Stop 06/12/18 at 15:36; Status DC Heparin Sodium/ Dextrose 500 ml @ 0 mls/hr CONT PRN IV SEE I/O RECORD Last administered on 06/11/18at 05:01; Start 06/11/18 at 04:30; Stop 06/12/18 at 12:24; Status DC Morphine Sulfate (Morphine Sulfate) 2 mg PRN Q2HR PRN IV SEVERE PAIN Last administered on 06/11/18at 04:51; Start 06/11/18 at 04:30; Stop 06/12/18 at 12:24; Status DC Morphine Sulfate (Morphine Sulfate) 1 mg PRN Q2HR PRN IV MODERATE PAIN; Start 06/11/18 at 04:30; Stop 06/12/18 at 12:24; Status DC Iodixanol (Visipaque 320) 100 ml STK-MED ONCE .ROUTE ; Start 06/11/18 at 10:44; Stop 06/11/18 at 10:45; Status DC Lidocaine HCl (Xylocaine-Mpf 1% 2ml Vial) 2 ml STK-MED ONCE .ROUTE ; Start at 10:44; Stop 06/11/18 at 10:45; Status DC Heparin Sodium/ Sodium Chloride 1,000 ml @ As Directed STK-MED ONCE .ROUTE ; Start 06/11/18 at 10:45; Stop 06/11/18 at 10:46; Status DC Heparin Sodium (Porcine) 5000 unit/Sodium Chloride 505 ml @ 505 mls/hr 1X ONCE IRR Last administered on 06/12/18at 14:45; Start 06/12/18 at 06:00; Stop 06/12 at 06:59; Status DC Cefazolin Sodium 1 gm/Sodium Chloride 500 ml @ 500 mls/hr 1X ONCE IRR Last administered on 06/12/18at 14:45; Start 06/12/18 at 06:00; Stop 06/12/18 at 06:59; Status DC Lidocaine HCl (Lidocaine 1% 20ml Vial) 20 ml STK-MED ONCE .ROUTE ; Start at 10:59; Stop 06/11/18 at 11:00; Status DC Methylprednisolone Sodium Succinate (SOLU-Medrol 125MG VIAL) 125 mg STK-MED ONCE .ROUTE ; Start 06/11/18 at 11:06; Stop 06/11/18 at 11:07; Status DC Fentanyl Citrate (Fentanyl 2ml Vial) 100 mcg STK-MED ONCE .ROUTE ; Start at 11:06; Stop 06/11/18 at 11:07; Status DC Midazolam HCl (Versed) 2 mg STK-MED ONCE .ROUTE ; Start 06/11/18 at 11:06; Stop 06/11/18 at 11:07; Status DC Famotidine (Pepcid Vial) 20 mg STK-MED ONCE .ROUTE ; Start 06/11/18 at 11:06; Stop 06/11/18 at 11:07; Status DC Diphenhydramine HCl (Benadryl) 50 mg STK-MED ONCE .ROUTE ; Start 06/11/18 at 11: 06; Stop 06/11/18 at 11:07; Status DC Heparin Sodium/ Sodium Chloride (HEPARIN for ARTERIAL LINE FLUSH) 1,000 unit 1X ONCE IART Last administered on 06/11/18at 11:42; Start 06/11/18 at 11:45; Stop 06/11/18 at 11:46; Status DC Iodixanol (Visipaque 320) 104 ml 1X ONCE IART Last administered on 06/11/18at 11 :42; Start 06/11/18 at 11:45; Stop 06/11/18 at 11:46; Status DC Lidocaine HCl (Lidocaine 1% 20ml Vial) 15 ml 1X ONCE INJ Last administered on 06/11/18at 11:43; Start 06/11/18 at 11:45; Stop 06/11/18 at 11:46; Status DC Diphenhydramine HCl (Benadryl) 25 mg 1X ONCE IVP Last administered on at 11:43; Start 06/11/18 at 11:45; Stop 06/11/18 at 11:46; Status DC Methylprednisolone Sodium Succinate (SOLU-Medrol 125MG VIAL) 125 mg 1X ONCE IV Last administered on 06/11/18at 11:43; Start 06/11/18 at 11:45; Stop 06/11/18 at 11:46; Status DC Famotidine (Pepcid Vial) 20 mg 1X ONCE IVP Last administered on 06/11/18at 11:18 ; Start 06/11/18 at 11:45; Stop 06/11/18 at 11:46; Status DC Sodium Chloride (Normal Saline Flush) 3 ml QSHIFT PRN IV AFTER MEDS AND BLOOD DRAWS; Start 06/11/18 at 12:45 Sodium Chloride 1,000 ml @ 1,000 mls/hr Q1H PRN IV hypotension; Start 06/11/18 at 13:48; Stop 06/11/18 at 19:47; Status DC Albumin Human 200 ml @ 200 mls/hr 1X PRN PRN IV Hypotension; Start 06/11/18 at 14:00; Stop 06/11/18 at 19:59; Status DC Sodium Chloride 1,000 ml @ 400 mls/hr Q2H30M PRN IV PATENCY; Start 06/11/18 at 13:48; Stop 06/12/18 at 01:47; Status DC Info (PHARMACY MONITORING -- do not chart) 1 each PRN DAILY PRN MC SEE COMMENTS ; Start 06/11/18 at 14:00; Stop 06/11/18 at 14:00; Status DC Info (PHARMACY MONITORING -- do not chart) 1 each PRN DAILY PRN MC SEE COMMENTS ; Start 06/11/18 at 14:00; Stop 06/11/18 at 14:00; Status DC Dextrose (Dextrose 50%-Water Syringe) 25 gm STK-MED ONCE IV ; Start 06/11/18 at 14:08; Stop 06/11/18 at 14:12; Status DC Prednisone (Prednisone) 20 mg 1X ONCE PO Last administered on 06/11/18at 23:35; Start 06/11/18 at 21:00; Stop 06/11/18 at 21:01; Status DC Prednisone (Prednisone) 20 mg 1X ONCE PO ; Start 06/12/18 at 09:00; Stop at 09:01; Status DC Cefazolin Sodium/ Dextrose 50 ml @ 100 mls/hr 1X ONCE IV ; Start 06/12/18 at 12 :00; Stop 06/12/18 at 12:29; Status DC Ondansetron HCl (Zofran) 4 mg PRN Q6HRS PRN IV NAUSEA/VOMITING; Start 06/12/18 at 07:00; Stop 06/13/18 at 06:59; Status DC Fentanyl Citrate (Fentanyl 2ml Vial) 25 mcg PRN Q5MIN PRN IV MILD PAIN; Start 06/12/18 at 07:00; Stop 06/13/18 at 06:59; Status DC Fentanyl Citrate (Fentanyl 2ml Vial) 50 mcg PRN Q5MIN PRN IV MODERATE TO SEVERE PAIN; Start 06/12/18 at 07:00; Stop 06/13/18 at 06:59; Status DC Morphine Sulfate (Morphine Sulfate) 1 mg PRN Q10MIN PRN IV SEVERE PAIN; Start 06/12/18 at 07:00; Stop 06/12/18 at 12:24; Status DC Ringer's Solution 1,000 ml @ 30 mls/hr Q24H IV Last administered on 06/12/18at 07:00; Start 06/12/18 at 07:00; Stop 06/12/18 at 18:59; Status DC Lidocaine HCl (Xylocaine-Mpf 1% 2ml Vial) 2 ml PRN 1X PRN ID IV START; Start at 07:00; Stop 06/13/18 at 06:59; Status DC Hydromorphone HCl (Dilaudid) 0.5 mg PRN Q10MIN PRN IV SEV PAIN, Second choice; Start 06/12/18 at 07:00; Stop 06/13/18 at 06:59; Status DC Prochlorperazine Edisylate (Compazine) 5 mg PACU PRN PRN IV NAUSEA, MRX1; Start 06/12/18 at 07:00; Stop 06/13/18 at 06:59; Status DC Dextrose (Dextrose 50%-Water Syringe) 25 gm STK-MED ONCE IV ; Start 06/11/18 at 14:00; Stop 06/12/18 at 08:16; Status DC Heparin Sodium (Porcine) (Heparin Sodium) 10,000 unit STK-MED ONCE .ROUTE ; Start 06/12/18 at 12:08; Stop 06/12/18 at 12:09; Status DC Cellulose (Surgicel Fibrillar 1x2) 1 each STK-MED ONCE .ROUTE ; Start 06/12/18 at 12:08; Stop 06/12/18 at 12:09; Status DC Protamine Sulfate (Protamine) 50 mg STK-MED ONCE IV ; Start 06/12/18 at 12:08; Stop 06/12/18 at 12:09; Status DC Propofol 20 ml @ As Directed STK-MED ONCE IV ; Start 06/12/18 at 12:17; Stop 06/12 at 12:18; Status DC Dexamethasone Sodium Phosphate (Decadron) 20 mg STK-MED ONCE .ROUTE ; Start 06/12 at 12:17; Stop 06/12/18 at 12:18; Status DC Famotidine (Pepcid Vial) 20 mg STK-MED ONCE .ROUTE ; Start 06/12/18 at 12:17; Stop 06/12/18 at 12:18; Status DC Lidocaine HCl (Lidocaine Pf 2% Vial) 5 ml STK-MED ONCE .ROUTE ; Start 06/12/18 at 12:17; Stop 06/12/18 at 12:18; Status DC Ondansetron HCl (Zofran) 4 mg STK-MED ONCE .ROUTE ; Start 06/12/18 at 12:17; Stop 06/12/18 at 12:18; Status DC Etomidate (Amidate) 20 mg STK-MED ONCE IV ; Start 06/12/18 at 12:17; Stop at 12:18; Status DC Sodium Chloride (SODIUM CHLORIDE 20ml) 20 ml STK-MED ONCE IJ ; Start 06/12/18 at 12:17; Stop 06/12/18 at 12:18; Status DC Ephedrine Sulfate (Akovaz) 50 mg STK-MED ONCE .ROUTE ; Start 06/12/18 at 12:17; Stop 06/12/18 at 12:18; Status DC Vecuronium [place] (Norcuron Bolus) 10 mg STK-MED ONCE IV ; Start 06/12/18 at 12: 17; Stop 06/12/18 at 12:18; Status DC Fentanyl Citrate (Fentanyl 2ml Vial) 100 mcg STK-MED ONCE .ROUTE ; Start at 12:17; Stop 06/12/18 at 12:18; Status DC Hydromorphone HCl (Dilaudid) 2 mg STK-MED ONCE .ROUTE ; Start 06/12/18 at 12:18; Stop 06/12/18 at 12:19; Status DC Vasopressin (Vasostrict) 20 unit STK-MED ONCE .ROUTE ; Start 06/12/18 at 12:18; Stop 06/12/18 at 12:19; Status Cancel Albumin Human 0 ml @ As Directed STK-MED ONCE IV ; Start 06/12/18 at 12:19; Stop 06/12/18 at 12:20; Status DC Cisatracurium Besylate (Nimbex) 20 mg STK-MED ONCE IV ; Start 06/12/18 at 12:20; Stop 06/12/18 at 12:21; Status DC Midazolam HCl (Versed) 2 mg STK-MED ONCE .ROUTE ; Start 06/12/18 at 12:30; Stop 06/12/18 at 12:31; Status DC Iodixanol (Visipaque 320) 100 ml STK-MED ONCE .ROUTE ; Start 06/12/18 at 12:55; Stop 06/12/18 at 12:56; Status DC Iodixanol (Visipaque 320) 50 ml STK-MED ONCE .ROUTE ; Start 06/12/18 at 12:56; Stop 06/12/18 at 12:57; Status DC Heparin Sodium/ Sodium Chloride 1,000 ml @ As Directed STK-MED ONCE .ROUTE ; Start 06/12/18 at 12:56; Stop 06/12/18 at 12:57; Status DC Sodium Chloride (SODIUM CHLORIDE 20ml) 20 ml STK-MED ONCE IJ ; Start 06/12/18 at 14:29; Stop 06/12/18 at 14:30; Status DC Cefazolin Sodium/ Dextrose 50 ml @ As Directed STK-MED ONCE IV ; Start 06/12/18 at 14:40; Stop 06/12/18 at 14:41; Status DC Bupivacaine HCl/ Epinephrine Bitart (Sensorcaine-Epi 0.25%-1:368329 Mpf) 30 ml STK-MED ONCE .ROUTE Last administered on 06/12/18at 14:45; Start 06/12/18 at 14:41 ; Stop 06/12/18 at 14:42; Status DC Heparin Sodium (Porcine) (Heparin Sodium) 10,000 unit STK-MED ONCE .ROUTE ; Start 06/12/18 at 14:59; Stop 06/12/18 at 15:00; Status DC Heparin Sodium/ Sodium Chloride 500 ml @ As Directed STK-MED ONCE .ROUTE ; Start 06/12/18 at 15:00; Stop 06/12/18 at 15:01; Status DC Iodixanol (Visipaque 320) 100 ml STK-MED ONCE .ROUTE ; Start 06/12/18 at 15:13; Stop 06/12/18 at 15:14; Status DC Iodixanol (Visipaque 320) 250 ml 1X ONCE IV Last administered on 06/12/18at 15: 56; Start 06/12/18 at 15:30; Stop 06/12/18 at 15:36; Status DC Glycopyrrolate (Robinul) 1 mg STK-MED ONCE .ROUTE ; Start 06/12/18 at 15:33; Stop 06/12/18 at 15:34; Status DC Info (CONTRAST GIVEN -- Rx MONITORING) 1 each PRN DAILY PRN MC SEE COMMENTS; Start 06/12/18 at 15:45; Stop 06/14/18 at 15:44 Sevoflurane (Ultane) 90 ml STK-MED ONCE IH ; Start 06/12/18 at 15:53; Stop at 15:54; Status DC Active Scripts Active Amiodarone Hcl 200 Mg Tablet 200 Mg PO DAILY MDD 1 Eliquis (Apixaban) 5 Mg Tablet 5 Mg PO BID MDD ` [Albuterol Sulfate] 2.5 MG/3 ML Nebu 2.5 Mg NEB PRN Q4HRS PRN Reported Diltiazem 24HR Cd (Diltiazem Hcl) 180 Mg Cap.er.24h 180 Mg PO DAILY Lipitor (Atorvastatin Calcium) 40 Mg Tablet 40 Mg PO HS Hydrocodone-Acetamin 5-325 mg (Hydrocodone/Acetaminophen) 1 Each Tablet 1 Each PO PRN Q6HRS PRN Furosemide 40 Mg Tablet 40 Mg PO DAILY Symbicort 160-4.5 Mcg Inhaler (Budesonide/Formoterol Fumarate) 10.2 Gm Hfa.aer.ad 2 Puff IH BID Toprol Xl (Metoprolol Succinate) 100 Mg Tab.er.24h 100 Mg PO DAILY Proair Hfa Inhaler (Albuterol Sulfate) 8.5 Gm Hfa.aer.ad 1 Puff INH PRN Q6HRS PRN Marina-Jayme Tablet (Folic Acid/Vitamin B Comp W-C) 0.8 Mg Tablet 0.8 Mg PO DAILY Hydroxyzine Hcl 25 Mg Tablet 50 Mg PO QMWF Lisinopril 20 Mg Tablet 1 Tab PO DAILY Lantus Solostar (Insulin Glargine,Hum.rec.anlog) 100 Unit/1 Ml Insuln.pen 30 Unit SQ QHS Aspirin 325 Mg Tablet 1 Tab PO DAILY Vitals/I & O Vital Sign - Last 24 Hours 06/12/18 06/12/18 06/12/18 06/12/18 11:00 11:59 12:00 12:09 Pulse 73 70 Resp 18 25 B/P (MAP) 100/58 (72) 159/65 (96) Pulse Ox 100 98 100 O2 Delivery Nasal Cannula Nasal Cannula Nasal Cannula Nasal Cannula O2 Flow Rate 3.0 3.0 3.0 3.0 06/12/18 06/12/18 06/12/18 06/12/18 13:00 16:18 16:18 16:45 Temp 98.5 96.8 98.5 96.8 Pulse 73 65 68 Resp 16 14 20 B/P (MAP) 136/66 (89) 164/70 146/46 Pulse Ox 100 95 91 O2 Delivery Nasal Cannula Simple Mask Mask High Flow Nasal Cannula O2 Flow Rate 3.0 10 5 5.0 06/12/18 06/12/18 06/12/18 06/12/18 17:00 17:15 17:30 17:45 Temp 97.4 97.4 Pulse 60 60 61 60 Resp 10 11 12 12 B/P (MAP) 158/50 152/60 (90) 139/50 (79) 148/62 (90) Pulse Ox 92 O2 Delivery High Flow Nasal Cannula Nasal Cannula Nasal Cannula Nasal Cannula O2 Flow Rate 5.0 5.0 5.0 5.0 06/12/18 06/12/18 06/12/18 06/12/18 18:00 19:00 20:00 20:00 Temp 97.8 97.8 Pulse 59 60 61 Resp 13 20 22 B/P (MAP) 145/56 (85) 126/74 (91) 161/56 (91) Pulse Ox 100 100 O2 Delivery Nasal Cannula Nasal Cannula Nasal Cannula Nasal Cannula O2 Flow Rate 5.0 5.0 5.0 3.0 06/12/18 06/12/18 06/12/18 06/13/18 21:00 22:00 23:00 00:00 Temp 98.1 98.1 Pulse 64 67 67 65 Resp 13 14 14 14 B/P (MAP) 164/77 (106) 140/64 (89) 148/70 (96) 150/74 (99) Pulse Ox 95 97 100 98 O2 Delivery Nasal Cannula Nasal Cannula Nasal Cannula Nasal Cannula O2 Flow Rate 3.0 3.0 3.0 3.0 06/13/18 06/13/18 06/13/18 06/13/18 00:00 01:00 02:00 03:00 Pulse 69 68 68 Resp 15 17 16 B/P (MAP) 130/58 (82) 118/54 (75) 124/57 (79) Pulse Ox 100 99 99 O2 Delivery Nasal Cannula Nasal Cannula Nasal Cannula Nasal Cannula O2 Flow Rate 3.0 3.0 3.0 3.0 06/13/18 06/13/18 06/13/18 06/13/18 04:00 04:00 05:00 06:00 Temp 97.4 97.4 Pulse 72 70 68 Resp 16 23 12 B/P (MAP) 132/58 (82) 137/58 (84) 93/67 (76) Pulse Ox 99 99 99 O2 Delivery Nasal Cannula Nasal Cannula Nasal Cannula Nasal Cannula O2 Flow Rate 3.0 3.0 3.0 3.0 06/13/18 06/13/18 09:07 09:42 Pulse Ox 98 98 O2 Delivery Nasal Cannula Nasal Cannula O2 Flow Rate 2.0 2.0 Intake and Output 06/12/18 06/12/18 06/13/18 15:00 23:00 07:00 Intake Total 0 ml 0 ml 200 ml Output Total 0 ml 50 ml 0 ml Balance 0 ml -50 ml 200 ml DEVIN JOHNSON MD Jun 13, 2018 10:11
--- NOTE | 2018-06-13 10:12 | PDOC ---
Provider Note Provider Note Vascular S: Patient seen and examined in room, eating breakfast. Denies any incisional pain. O: Awake and alert VSS, afebrile Abdomen soft, NTND, obese Femoral puncture sites intact with surgical glue. Doppler bilateral DP and PT A/P: Asymptomatic 6cm AAA POD #1 1) Bilateral percutaneous access and closure for delivery of endograft greater than 12 [place] sheath CPT 76335, [id number] 2) endovascular repair of abdominal aortic aneurysm using bifurcated device ( Krum Excluder) CPT 87915 Stable post procedure. Patient may be up ad fili. May transfer to telemetry. Social service consult for discharge planning recommend rehabilitation placement. Patient will need follow-up with Dr. German in 4-[address] scan and office visit. Patient may discharge from a vascular perspective when medically stable. LIONEL IZQUIERDO APRN Jun 13, 2018 10:12
[2018-06-13 10:19] LABS: % BANDS 2 % (0-9); % LYMPHS 12 % (24-48); % MONOS 6 % (0-10); % SEGS 80 % (35-66)
[2018-06-13 10:20] LABS: PLT ESTIMATE ADEQUATE (ADEQUATE)
[2018-06-13 10:21] LABS: ANISOCYTOSIS SLIGHT
--- NOTE | 2018-06-13 10:52 | PDOC ---
CARDIO Progress Notes Date and Time Date of Service 06/13/18 Time of Evaluation 1040 Subjective Subjective: No Chest Pain, No shortness of breath Vitals Vitals Vital Signs Date Time Temp Pulse Resp B/P (MAP) Pulse Ox O2 Delivery O2 Flow Rate FiO2 06/13/18 09:42 98 Nasal Cannula 2.0 06/13/18 06:00 68 12 93/67 (76) 06/13/18 04:00 97.4 97.4 Weight Weight [ ] Input and Output Intake and Output Intake and Output 06/13/18 07:00 Intake Total 200 ml Output Total 50 ml Balance 150 ml Intake Oral 200 ml Output Urine Total 0 ml Estimated Blood Loss 50 ml Laboratory Labs Laboratory Tests Test 06/12/18 12:51 06/12/18 23:05 06/13/18 07:40 06/13/18 09:03 Glucose (Fingerstick) 77 mg/dL (70-99) 82 mg/dL (70-99) 74 mg/dL (70-99) White Blood Count 9.6 x10^3/uL (4.0-11.0) Red Blood Count 3.11 x10^6/uL (3.50-5.40) Hemoglobin 9.9 g/dL (12.0-15.5) Hematocrit 31.2 % (36.0-47.0) Mean Corpuscular Volume 100 fL (79-100) Mean Corpuscular Hemoglobin 32 pg (25-35) Mean Corpuscular Hemoglobin Concent 32 g/dL (31-37) Red Cell Distribution Width 15.5 % (11.5-14.5) Platelet Count 205 x10^3/uL (140-400) Neutrophils (%) (Auto) 85 % (31-73) Lymphocytes (%) (Auto) 4 % (24-48) Monocytes (%) (Auto) 11 % (0-9) Eosinophils (%) (Auto) 0 % (0-3) Basophils (%) (Auto) 0 % (0-3) Neutrophils # (Auto) 8.1 x10^3uL (1.8-7.7) Lymphocytes # (Auto) 0.4 x10^3/uL (1.0-4.8) Monocytes # (Auto) 1.0 x10^3/uL (0.0-1.1) Eosinophils # (Auto) 0.0 x10^3/uL (0.0-0.7) Basophils # (Auto) 0.0 x10^3/uL (0.0-0.2) Segmented Neutrophils % 80 % (35-66) Band Neutrophils % 2 % (0-9) Lymphocytes % 12 % (24-48) Monocytes % 6 % (0-10) Platelet Estimate Adequate (ADEQUATE) Large Platelets Present Anisocytosis Slight Sodium Level 141 mmol/L (136-145) Potassium Level 5.3 mmol/L (3.5-5.1) Chloride Level 103 mmol/L (98-107) Carbon Dioxide Level 30 mmol/L (21-32) Anion Gap 8 (6-14) Blood Urea Nitrogen 43 mg/dL (7-20) Creatinine 6.5 mg/dL (0.6-1.0) Estimated GFR (Cockcroft-Gault) 7.6 Glucose Level 49 mg/dL (70-99) Calcium Level 6.9 mg/dL (8.5-10.1) Physical Exam HEENT: Neck Supple W Full Motion Chest: Symmetric LUNGS: Clear to Auscultation, Other (diminished bases) Heart: S1S2, RRR Abdomen: Soft N/T Extremities: No Calf Tenderness Neurology: alert, follow commands Assessment Assessment 1. Abdominal aortic aneurysm s/p endovascular repair 06/12 2. CAD; cardiac with without obstructive disease with 30% in-stent restenosis involving the distal segment of the RCA 3. PAF; maintaining SR 4. Chronic diastolic HF; LVEF 50%. Appears compensated 5. Hypertension 6. DM, II 7. COPD 8. ESRD on HD, hyperkalemia Recommendations Supportive care Secondary prevention measures Continue Amiodarone for rhythm maintenance. ASA for stroke prophylaxis. Fluid offloading, correction of lytes via HD as per nephrology. F/u in our office with Dr. Davis in month. DARSHANA PEPE APRN Jun 13, 2018 10:52
[2018-06-13] MEDS ORDERED: BENZOCAINE/MENTHOL LOZENGE. PO PRN (11:15)
--- NOTE | 2018-06-13 11:52 | PDOC ---
PROGRESS NOTES Chief Complaint Chief Complaint Abdominal aortic aneurysm s/p endograft on 06/12 Vasculopathy CAD s/p cardiac cath with stents CHF COPD Diabetes Hypertension, Hyperlipidemia End-stage renal disease, on dialysis Rotator cuff surgery Bradycardia History of Present Illness History of Present Illness Patient seen and examined in the ICU. Patient awake and resting comfortably. Getting ready to start hemodialysis. Patient says she is recovering well after the endograft procedure on 06/12. She is eating. Patient has no new complaints. HD (M-W-F). Neph, Cards, Pulm following. Vitals Vitals Vital Signs Date Time Temp Pulse Resp B/P (MAP) Pulse Ox O2 Delivery O2 Flow Rate FiO2 06/13/18 10:00 72 16 133/59 (83) 98 Nasal Cannula 3.0 06/13/18 08:00 98.6 98.6 Physical Exam General: Alert, Oriented X3, Cooperative, No acute distress Heart: Regular rate, No murmurs Lungs: Clear Abdomen: Normal bowel sounds, No tenderness Extremities: No clubbing, No cyanosis, No edema Skin: No rashes, No significant lesion Labs LABS Laboratory Tests Test 06/12/18 12:51 06/12/18 23:05 06/13/18 07:40 06/13/18 09:03 Glucose (Fingerstick) 77 mg/dL (70-99) 82 mg/dL (70-99) 74 mg/dL (70-99) White Blood Count 9.6 x10^3/uL (4.0-11.0) Red Blood Count 3.11 x10^6/uL (3.50-5.40) Hemoglobin 9.9 g/dL (12.0-15.5) Hematocrit 31.2 % (36.0-47.0) Mean Corpuscular Volume 100 fL (79-100) Mean Corpuscular Hemoglobin 32 pg (25-35) Mean Corpuscular Hemoglobin Concent 32 g/dL (31-37) Red Cell Distribution Width 15.5 % (11.5-14.5) Platelet Count 205 x10^3/uL (140-400) Neutrophils (%) (Auto) 85 % (31-73) Lymphocytes (%) (Auto) 4 % (24-48) Monocytes (%) (Auto) 11 % (0-9) Eosinophils (%) (Auto) 0 % (0-3) Basophils (%) (Auto) 0 % (0-3) Neutrophils # (Auto) 8.1 x10^3uL (1.8-7.7) Lymphocytes # (Auto) 0.4 x10^3/uL (1.0-4.8) Monocytes # (Auto) 1.0 x10^3/uL (0.0-1.1) Eosinophils # (Auto) 0.0 x10^3/uL (0.0-0.7) Basophils # (Auto) 0.0 x10^3/uL (0.0-0.2) Segmented Neutrophils % 80 % (35-66) Band Neutrophils % 2 % (0-9) Lymphocytes % 12 % (24-48) Monocytes % 6 % (0-10) Platelet Estimate Adequate (ADEQUATE) Large Platelets Present Anisocytosis Slight Sodium Level 141 mmol/L (136-145) Potassium Level 5.3 mmol/L (3.5-5.1) Chloride Level 103 mmol/L (98-107) Carbon Dioxide Level 30 mmol/L (21-32) Anion Gap 8 (6-14) Blood Urea Nitrogen 43 mg/dL (7-20) Creatinine 6.5 mg/dL (0.6-1.0) Estimated GFR (Cockcroft-Gault) 7.6 Glucose Level 49 mg/dL (70-99) Calcium Level 6.9 mg/dL (8.5-10.1) Test 06/13/18 11:19 Glucose (Fingerstick) 156 mg/dL (70-99) Review of Systems Review of Systems Denies abdominal pain Denies chest pain Denies fevers/chills Assessment and Plan Assessmemt and Plan Assessment: Abdominal aortic aneurysm s/p endograft on 06/12 Vasculopathy CAD s/p cardiac cath with stents CHF COPD Diabetes Hypertension, Hyperlipidemia End-stage renal disease, on dialysis Rotator cuff surgery Bradycardia Plan: Monitor in the ICU Continue hemodialysis MWF Recheck CBC and BMP tomorrow am Consult PT/OT Continue wound care Discharge disposition pending Comment Review of Relevant I have reviewed the following items mykel (where applicable) has been applied. Labs Laboratory Tests Test 06/11/18 12:37 06/11/18 14:05 06/11/18 14:20 06/11/18 16:52 Glucose (Fingerstick) 43 mg/dL (70-99) 56 mg/dL (70-99) 89 mg/dL (70-99) Heparin Anti-Xa Act, Unfractionated 0.15 IU/mL (0.30-0.70) Test 06/11/18 23:40 06/12/18 04:30 06/12/18 07:19 06/12/18 12:51 Glucose (Fingerstick) 251 mg/dL (70-99) 188 mg/dL (70-99) 77 mg/dL (70-99) White Blood Count 4.3 x10^3/uL (4.0-11.0) Red Blood Count 3.40 x10^6/uL (3.50-5.40) Hemoglobin 10.7 g/dL (12.0-15.5) Hematocrit 34.3 % (36.0-47.0) Mean Corpuscular Volume 101 fL (79-100) Mean Corpuscular Hemoglobin 32 pg (25-35) Mean Corpuscular Hemoglobin Concent 31 g/dL (31-37) Red Cell Distribution Width 15.6 % (11.5-14.5) Platelet Count 209 x10^3/uL (140-400) Neutrophils (%) (Auto) 92 % (31-73) Lymphocytes (%) (Auto) 3 % (24-48) Monocytes (%) (Auto) 6 % (0-9) Eosinophils (%) (Auto) 0 % (0-3) Basophils (%) (Auto) 0 % (0-3) Neutrophils # (Auto) 3.9 x10^3uL (1.8-7.7) Lymphocytes # (Auto) 0.1 x10^3/uL (1.0-4.8) Monocytes # (Auto) 0.2 x10^3/uL (0.0-1.1) Eosinophils # (Auto) 0.0 x10^3/uL (0.0-0.7) Basophils # (Auto) 0.0 x10^3/uL (0.0-0.2) Sodium Level 142 mmol/L (136-145) Potassium Level 5.0 mmol/L (3.5-5.1) Chloride Level 103 mmol/L (98-107) Carbon Dioxide Level 30 mmol/L (21-32) Anion Gap 9 (6-14) Blood Urea Nitrogen 30 mg/dL (7-20) Creatinine 5.0 mg/dL (0.6-1.0) Estimated GFR (Cockcroft-Gault) 10.2 Glucose Level 226 mg/dL (70-99) Calcium Level 7.6 mg/dL (8.5-10.1) Test 06/12/18 23:05 06/13/18 07:40 06/13/18 09:03 06/13/18 11:19 Glucose (Fingerstick) 82 mg/dL (70-99) 74 mg/dL (70-99) 156 mg/dL (70-99) White Blood Count 9.6 x10^3/uL (4.0-11.0) Red Blood Count 3.11 x10^6/uL (3.50-5.40) Hemoglobin 9.9 g/dL (12.0-15.5) Hematocrit 31.2 % (36.0-47.0) Mean Corpuscular Volume 100 fL (79-100) Mean Corpuscular Hemoglobin 32 pg (25-35) Mean Corpuscular Hemoglobin Concent 32 g/dL (31-37) Red Cell Distribution Width 15.5 % (11.5-14.5) Platelet Count 205 x10^3/uL (140-400) Neutrophils (%) (Auto) 85 % (31-73) Lymphocytes (%) (Auto) 4 % (24-48) Monocytes (%) (Auto) 11 % (0-9) Eosinophils (%) (Auto) 0 % (0-3) Basophils (%) (Auto) 0 % (0-3) Neutrophils # (Auto) 8.1 x10^3uL (1.8-7.7) Lymphocytes # (Auto) 0.4 x10^3/uL (1.0-4.8) Monocytes # (Auto) 1.0 x10^3/uL (0.0-1.1) Eosinophils # (Auto) 0.0 x10^3/uL (0.0-0.7) Basophils # (Auto) 0.0 x10^3/uL (0.0-0.2) Segmented Neutrophils % 80 % (35-66) Band Neutrophils % 2 % (0-9) Lymphocytes % 12 % (24-48) Monocytes % 6 % (0-10) Platelet Estimate Adequate (ADEQUATE) Large Platelets Present Anisocytosis Slight Sodium Level 141 mmol/L (136-145) Potassium Level 5.3 mmol/L (3.5-5.1) Chloride Level 103 mmol/L (98-107) Carbon Dioxide Level 30 mmol/L (21-32) Anion Gap 8 (6-14) Blood Urea Nitrogen 43 mg/dL (7-20) Creatinine 6.5 mg/dL (0.6-1.0) Estimated GFR (Cockcroft-Gault) 7.6 Glucose Level 49 mg/dL (70-99) Calcium Level 6.9 mg/dL (8.5-10.1) Laboratory Tests Test 06/12/18 12:51 06/12/18 23:05 06/13/18 07:40 06/13/18 09:03 Glucose (Fingerstick) 77 mg/dL (70-99) 82 mg/dL (70-99) 74 mg/dL (70-99) White Blood Count 9.6 x10^3/uL (4.0-11.0) Red Blood Count 3.11 x10^6/uL (3.50-5.40) Hemoglobin 9.9 g/dL (12.0-15.5) Hematocrit 31.2 % (36.0-47.0) Mean Corpuscular Volume 100 fL (79-100) Mean Corpuscular Hemoglobin 32 pg (25-35) Mean Corpuscular Hemoglobin Concent 32 g/dL (31-37) Red Cell Distribution Width 15.5 % (11.5-14.5) Platelet Count 205 x10^3/uL (140-400) Neutrophils (%) (Auto) 85 % (31-73) Lymphocytes (%) (Auto) 4 % (24-48) Monocytes (%) (Auto) 11 % (0-9) Eosinophils (%) (Auto) 0 % (0-3) Basophils (%) (Auto) 0 % (0-3) Neutrophils # (Auto) 8.1 x10^3uL (1.8-7.7) Lymphocytes # (Auto) 0.4 x10^3/uL (1.0-4.8) Monocytes # (Auto) 1.0 x10^3/uL (0.0-1.1) Eosinophils # (Auto) 0.0 x10^3/uL (0.0-0.7) Basophils # (Auto) 0.0 x10^3/uL (0.0-0.2) Segmented Neutrophils % 80 % (35-66) Band Neutrophils % 2 % (0-9) Lymphocytes % 12 % (24-48) Monocytes % 6 % (0-10) Platelet Estimate Adequate (ADEQUATE) Large Platelets Present Anisocytosis Slight Sodium Level 141 mmol/L (136-145) Potassium Level 5.3 mmol/L (3.5-5.1) Chloride Level 103 mmol/L (98-107) Carbon Dioxide Level 30 mmol/L (21-32) Anion Gap 8 (6-14) Blood Urea Nitrogen 43 mg/dL (7-20) Creatinine 6.5 mg/dL (0.6-1.0) Estimated GFR (Cockcroft-Gault) 7.6 Glucose Level 49 mg/dL (70-99) Calcium Level 6.9 mg/dL (8.5-10.1) Test 06/13/18 11:19 Glucose (Fingerstick) 156 mg/dL (70-99) Medications Current Medications Sodium Chloride 1,000 ml @ 100 mls/hr Q10H IV Last administered on 06/07/18at 19:56; Start 06/07/18 at 19:18; Stop 06/08/18 at 05:17; Status DC Ondansetron HCl (Zofran) 4 mg PRN Q8HRS PRN IV NAUSEA/VOMITING 1ST CHOICE; Start 06/07/18 at 21:00; Stop 06/08/18 at 20:59; Status DC Morphine Sulfate (Morphine Sulfate) 2 mg PRN Q2HR PRN IV SEVERE PAIN; Start at 21:00; Stop 06/08/18 at 06:39; Status DC Morphine Sulfate (Morphine Sulfate) 2 mg PRN Q2HR PRN IV SEVERE PAIN; Start 06/08/18 at 06:39; Stop 06/08/18 at 20:59; Status DC Amiodarone HCl (Cordarone) 200 mg DAILY PO Last administered on 06/11/18at 12:50 ; Start 06/08/18 at 12:00 Apixaban (Eliquis) 5 mg BID PO ; Start 06/08/18 at 12:00; Stop 06/08/18 at 15:30; Status DC Aspirin (Hung Aspirin) 325 mg DAILY PO Last administered on 06/13/18 09:21; Start 06/08/18 at 12:00 Atorvastatin Calcium (Lipitor) 40 mg HS PO Last administered on 06/12/18 23:06 ; Start 06/08/18 at 21:00 Furosemide (Lasix) 40 mg DAILY PO Last administered on 06/13/18 09:21; Start at 12:00 Acetaminophen/ Hydrocodone Bitart (Lortab 5/325) 1 tab PRN Q6HRS PRN PO back pain Last administered on 06/13/18 09:42; Start 06/08/18 at 11:30 Insulin Glargine (Lantus) 30 units QHS SQ Last administered on 06/11/18 23:41; Start 06/08/18 at 21:00 Lisinopril (Prinivil) 20 mg DAILY PO Last administered on 06/10/18 09:08; Start 06/08/18 at 12:00 Metoprolol Succinate (Toprol Xl) 100 mg DAILY PO Last administered on 06/10/18 12:07; Start 06/08/18 at 12:00 Non-Formulary Medication (Budesonide/ Formoterol Fumarate (Symbicort 160-4.5 Mcg Inhaler)) 2 puff BID IH ; Start 06/08/18 at 21:00; Status UNV Diltiazem HCl (Cardizem 24hr Cd) 180 mg DAILY PO Last administered on 06/10/18 12:07; Start 06/08/18 at 12:00 Hydroxyzine Pamoate (Vistaril) 50 mg QMWF PO Last administered on 06/08/18 16: 49; Start 06/08/18 at 16:00 Non-Formulary Medication ([Albuterol Sulfate] ) 2.5 mg PRN Q4HRS PRN NEB SHORTNESS OF BREATH; Start 06/08/18 at 11:30; Status UNV Budesonide (Pulmicort) 0.5 mg RTBID NEB Last administered on 06/13/18 09:03; Start 06/08/18 at 12:00 Albuterol Sulfate (Ventolin Neb Soln) 2.5 mg RTQID NEB Last administered on 06/13at 09:03; Start 06/08/18 at 12:00 Albuterol Sulfate (Ventolin Neb Soln) 2.5 mg PRN Q4HRS PRN NEB SHORTNESS OF BREATH; Start 06/08/18 at 11:30 Sodium Chloride 1,000 ml @ 1,000 mls/hr Q1H PRN IV hypotension; Start 06/08/18 at 12:22; Stop 06/08/18 at 18:21; Status DC Diphenhydramine HCl (Benadryl) 25 mg 1X PRN PRN IV ITCHING; Start 06/08/18 at 12 :30; Stop 06/09/18 at 12:29; Status DC Diphenhydramine HCl (Benadryl) 25 mg 1X PRN PRN IV ITCHING; Start 06/08/18 at 12 :30; Stop 06/09/18 at 12:29; Status DC Sodium Chloride 1,000 ml @ 400 mls/hr Q2H30M PRN IV PATENCY; Start 06/08/18 at 12:22; Stop 06/09/18 at 00:21; Status DC Info (PHARMACY MONITORING -- do not chart) 1 each PRN DAILY PRN MC SEE COMMENTS ; Start 06/08/18 at 12:30 Prednisone (Prednisone) 20 mg 1X ONCE PO Last administered on 06/08/18at 18:04; Start 06/08/18 at 18:00; Stop 06/08/18 at 18:01; Status DC Prednisone (Prednisone) 20 mg 1X ONCE PO Last administered on 06/08/18at 21:12; Start 06/08/18 at 22:00; Stop 06/08/18 at 22:01; Status DC Prednisone (Prednisone) 20 mg 1X ONCE PO Last administered on 06/09/18at 06:15; Start 06/09/18 at 06:00; Stop 06/09/18 at 06:01; Status DC Diphenhydramine HCl (Benadryl) 50 mg PRN 1X PRN PO COMMENTS Last administered on 06/09/18at 08:04; Start 06/08/18 at 14:45; Stop 06/09/18 at 14:44; Status DC Enoxaparin Sodium (Lovenox Per Pharmacy Treatment Dosing) 1 each PRN DAILY PRN MC SEE COMMENTS; Start 06/08/18 at 15:30; Status Cancel Iohexol (Omnipaque 350 Mg/ml) 90 ml 1X ONCE IV Last administered on 06/09/18at 08:56; Start 06/09/18 at 09:00; Stop 06/09/18 at 09:01; Status DC Info (CONTRAST GIVEN -- Rx MONITORING) 1 each PRN DAILY PRN MC SEE COMMENTS; Start 06/09/18 at 09:00; Stop 06/11/18 at 08:59; Status DC Diclofenac Sodium (Voltaren) 1 evgeny BID TP Last administered on 06/13/18at 09:22; Start 06/09/18 at 13:30 Heparin Sodium/ Dextrose 500 ml @ 0 mls/hr CONT PRN IV SEE I/O RECORD Last administered on 06/10/18at 12:14; Start 06/10/18 at 11:45; Stop 06/11/18 at 02:46; Status DC Heparin Sodium (Porcine) (Heparin Sodium) 1,700 unit PRN Q6HRS PRN IV FOR UFH LEVEL LESS THAN 0.2; Start 06/10/18 at 11:45; Stop 06/12/18 at 12:24; Status DC Info (Anti-Coagulation Monitoring By Pharmacy) 1 each PRN DAILY PRN MC SEE COMMENTS Last administered on 06/11/18at 16:33; Start 06/10/18 at 11:45; Stop at 11:01; Status DC Sodium Chloride 250 ml @ 500 mls/hr 1X ONCE IV Last administered on 06/11/18at 03:00; Start 06/11/18 at 03:00; Stop 06/11/18 at 03:29; Status DC Dopamine HCl/ Dextrose 250 ml @ 5.19 mls/hr CONT PRN IV SEE I/O RECORD; Start 06/11/18 at 03:00; Stop 06/12/18 at 12:24; Status DC Ondansetron HCl (Zofran) 4 mg PRN Q6HRS PRN IV NAUSEA/VOMITING 1ST CHOICE Last administered on 06/11/18at 04:51; Start 06/11/18 at 03:15 Morphine Sulfate (Morphine Sulfate) 2 mg PRN Q4HRS PRN IV SEVERE PAIN; Start at 03:15; Stop 06/11/18 at 10:41; Status DC Sodium Chloride 250 ml @ 500 mls/hr 1X ONCE IV Last administered on 06/11/18at 03:30; Start 06/11/18 at 03:30; Stop 06/11/18 at 03:59; Status DC Iohexol (Omnipaque 350 Mg/ml) 90 ml 1X ONCE IV Last administered on 06/11/18at 04:02; Start 06/11/18 at 04:00; Stop 06/11/18 at 04:01; Status DC Diphenhydramine HCl (Benadryl) 25 mg 1X ONCE IV Last administered on 06/11/18at 04:15; Start 06/11/18 at 04:00; Stop 06/11/18 at 04:01; Status DC Info (CONTRAST GIVEN -- Rx MONITORING) 1 each PRN DAILY PRN MC SEE COMMENTS; Start 06/11/18 at 03:30; Stop 06/12/18 at 15:36; Status DC Heparin Sodium/ Dextrose 500 ml @ 0 mls/hr CONT PRN IV SEE I/O RECORD Last administered on 06/11/18at 05:01; Start 06/11/18 at 04:30; Stop 06/12/18 at 12:24; Status DC Morphine Sulfate (Morphine Sulfate) 2 mg PRN Q2HR PRN IV SEVERE PAIN Last administered on 06/11/18at 04:51; Start 06/11/18 at 04:30; Stop 06/12/18 at 12:24; Status DC Morphine Sulfate (Morphine Sulfate) 1 mg PRN Q2HR PRN IV MODERATE PAIN; Start 06/11/18 at 04:30; Stop 06/12/18 at 12:24; Status DC Iodixanol (Visipaque 320) 100 ml STK-MED ONCE .ROUTE ; Start 06/11/18 at 10:44; Stop 06/11/18 at 10:45; Status DC Lidocaine HCl (Xylocaine-Mpf 1% 2ml Vial) 2 ml STK-MED ONCE .ROUTE ; Start at 10:44; Stop 06/11/18 at 10:45; Status DC Heparin Sodium/ Sodium Chloride 1,000 ml @ As Directed STK-MED ONCE .ROUTE ; Start 06/11/18 at 10:45; Stop 06/11/18 at 10:46; Status DC Heparin Sodium (Porcine) 5000 unit/Sodium Chloride 505 ml @ 505 mls/hr 1X ONCE IRR Last administered on 06/12/18at 14:45; Start 06/12/18 at 06:00; Stop 06/12 at 06:59; Status DC Cefazolin Sodium 1 gm/Sodium Chloride 500 ml @ 500 mls/hr 1X ONCE IRR Last administered on 06/12/18at 14:45; Start 06/12/18 at 06:00; Stop 06/12/18 at 06:59; Status DC Lidocaine HCl (Lidocaine 1% 20ml Vial) 20 ml STK-MED ONCE .ROUTE ; Start at 10:59; Stop 06/11/18 at 11:00; Status DC Methylprednisolone Sodium Succinate (SOLU-Medrol 125MG VIAL) 125 mg STK-MED ONCE .ROUTE ; Start 06/11/18 at 11:06; Stop 06/11/18 at 11:07; Status DC Fentanyl Citrate (Fentanyl 2ml Vial) 100 mcg STK-MED ONCE .ROUTE ; Start at 11:06; Stop 06/11/18 at 11:07; Status DC Midazolam HCl (Versed) 2 mg STK-MED ONCE .ROUTE ; Start 06/11/18 at 11:06; Stop 06/11/18 at 11:07; Status DC Famotidine (Pepcid Vial) 20 mg STK-MED ONCE .ROUTE ; Start 06/11/18 at 11:06; Stop 06/11/18 at 11:07; Status DC Diphenhydramine HCl (Benadryl) 50 mg STK-MED ONCE .ROUTE ; Start 06/11/18 at 11: 06; Stop 06/11/18 at 11:07; Status DC Heparin Sodium/ Sodium Chloride (HEPARIN for ARTERIAL LINE FLUSH) 1,000 unit 1X ONCE IART Last administered on 06/11/18at 11:42; Start 06/11/18 at 11:45; Stop 06/11/18 at 11:46; Status DC Iodixanol (Visipaque 320) 104 ml 1X ONCE IART Last administered on 06/11/18at 11 :42; Start 06/11/18 at 11:45; Stop 06/11/18 at 11:46; Status DC Lidocaine HCl (Lidocaine 1% 20ml Vial) 15 ml 1X ONCE INJ Last administered on 06/11/18 11:43; Start 06/11/18 at 11:45; Stop 06/11/18 at 11:46; Status DC Diphenhydramine HCl (Benadryl) 25 mg 1X ONCE IVP Last administered on at 11:43; Start 06/11/18 at 11:45; Stop 06/11/18 at 11:46; Status DC Methylprednisolone Sodium Succinate (SOLU-Medrol 125MG VIAL) 125 mg 1X ONCE IV Last administered on 06/11/18at 11:43; Start 06/11/18 at 11:45; Stop 06/11/18 at 11:46; Status DC Famotidine (Pepcid Vial) 20 mg 1X ONCE IVP Last administered on 06/11/18at 11:18 ; Start 06/11/18 at 11:45; Stop 06/11/18 at 11:46; Status DC Sodium Chloride (Normal Saline Flush) 3 ml QSHIFT PRN IV AFTER MEDS AND BLOOD DRAWS; Start 06/11/18 at 12:45 Sodium Chloride 1,000 ml @ 1,000 mls/hr Q1H PRN IV hypotension; Start 06/11/18 at 13:48; Stop 06/11/18 at 19:47; Status DC Albumin Human 200 ml @ 200 mls/hr 1X PRN PRN IV Hypotension; Start 06/11/18 at 14:00; Stop 06/11/18 at 19:59; Status DC Sodium Chloride 1,000 ml @ 400 mls/hr Q2H30M PRN IV PATENCY; Start 06/11/18 at 13:48; Stop 06/12/18 at 01:47; Status DC Info (PHARMACY MONITORING -- do not chart) 1 each PRN DAILY PRN MC SEE COMMENTS ; Start 06/11/18 at 14:00; Stop 06/11/18 at 14:00; Status DC Info (PHARMACY MONITORING -- do not chart) 1 each PRN DAILY PRN MC SEE COMMENTS ; Start 06/11/18 at 14:00; Stop 06/11/18 at 14:00; Status DC Dextrose (Dextrose 50%-Water Syringe) 25 gm STK-MED ONCE IV ; Start 06/11/18 at 14:08; Stop 06/11/18 at 14:12; Status DC Prednisone (Prednisone) 20 mg 1X ONCE PO Last administered on 06/11/18at 23:35; Start 06/11/18 at 21:00; Stop 06/11/18 at 21:01; Status DC Prednisone (Prednisone) 20 mg 1X ONCE PO ; Start 06/12/18 at 09:00; Stop at 09:01; Status DC Cefazolin Sodium/ Dextrose 50 ml @ 100 mls/hr 1X ONCE IV ; Start 06/12/18 at 12 :00; Stop 06/12/18 at 12:29; Status DC Ondansetron HCl (Zofran) 4 mg PRN Q6HRS PRN IV NAUSEA/VOMITING; Start 06/12/18 at 07:00; Stop 06/13/18 at 06:59; Status DC Fentanyl Citrate (Fentanyl 2ml Vial) 25 mcg PRN Q5MIN PRN IV MILD PAIN; Start 06/12/18 at 07:00; Stop 06/13/18 at 06:59; Status DC Fentanyl Citrate (Fentanyl 2ml Vial) 50 mcg PRN Q5MIN PRN IV MODERATE TO SEVERE PAIN; Start 06/12/18 at 07:00; Stop 06/13/18 at 06:59; Status DC Morphine Sulfate (Morphine Sulfate) 1 mg PRN Q10MIN PRN IV SEVERE PAIN; Start 06/12/18 at 07:00; Stop 06/12/18 at 12:24; Status DC Ringer's Solution 1,000 ml @ 30 mls/hr Q24H IV Last administered on 06/12/18at 07:00; Start 06/12/18 at 07:00; Stop 06/12/18 at 18:59; Status DC Lidocaine HCl (Xylocaine-Mpf 1% 2ml Vial) 2 ml PRN 1X PRN ID IV START; Start at 07:00; Stop 06/13/18 at 06:59; Status DC Hydromorphone HCl (Dilaudid) 0.5 mg PRN Q10MIN PRN IV SEV PAIN, Second choice; Start 06/12/18 at 07:00; Stop 06/13/18 at 06:59; Status DC Prochlorperazine Edisylate (Compazine) 5 mg PACU PRN PRN IV NAUSEA, MRX1; Start 06/12/18 at 07:00; Stop 06/13/18 at 06:59; Status DC Dextrose (Dextrose 50%-Water Syringe) 25 gm STK-MED ONCE IV ; Start 06/11/18 at 14:00; Stop 06/12/18 at 08:16; Status DC Heparin Sodium (Porcine) (Heparin Sodium) 10,000 unit STK-MED ONCE .ROUTE ; Start 06/12/18 at 12:08; Stop 06/12/18 at 12:09; Status DC Cellulose (Surgicel Fibrillar 1x2) 1 each STK-MED ONCE .ROUTE ; Start 06/12/18 at 12:08; Stop 06/12/18 at 12:09; Status DC Protamine Sulfate (Protamine) 50 mg STK-MED ONCE IV ; Start 06/12/18 at 12:08; Stop 06/12/18 at 12:09; Status DC Propofol 20 ml @ As Directed STK-MED ONCE IV ; Start 06/12/18 at 12:17; Stop 06/12 at 12:18; Status DC Dexamethasone Sodium Phosphate (Decadron) 20 mg STK-MED ONCE .ROUTE ; Start 06/12 at 12:17; Stop 06/12/18 at 12:18; Status DC Famotidine (Pepcid Vial) 20 mg STK-MED ONCE .ROUTE ; Start 06/12/18 at 12:17; Stop 06/12/18 at 12:18; Status DC Lidocaine HCl (Lidocaine Pf 2% Vial) 5 ml STK-MED ONCE .ROUTE ; Start 06/12/18 at 12:17; Stop 06/12/18 at 12:18; Status DC Ondansetron HCl (Zofran) 4 mg STK-MED ONCE .ROUTE ; Start 06/12/18 at 12:17; Stop 06/12/18 at 12:18; Status DC Etomidate (Amidate) 20 mg STK-MED ONCE IV ; Start 06/12/18 at 12:17; Stop at 12:18; Status DC Sodium Chloride (SODIUM CHLORIDE 20ml) 20 ml STK-MED ONCE IJ ; Start 06/12/18 at 12:17; Stop 06/12/18 at 12:18; Status DC Ephedrine Sulfate (Akovaz) 50 mg STK-MED ONCE .ROUTE ; Start 06/12/18 at 12:17; Stop 06/12/18 at 12:18; Status DC Vecuronium [place] (Norcuron Bolus) 10 mg STK-MED ONCE IV ; Start 06/12/18 at 12: 17; Stop 06/12/18 at 12:18; Status DC Fentanyl Citrate (Fentanyl 2ml Vial) 100 mcg STK-MED ONCE .ROUTE ; Start at 12:17; Stop 06/12/18 at 12:18; Status DC Hydromorphone HCl (Dilaudid) 2 mg STK-MED ONCE .ROUTE ; Start 06/12/18 at 12:18; Stop 06/12/18 at 12:19; Status DC Vasopressin (Vasostrict) 20 unit STK-MED ONCE .ROUTE ; Start 06/12/18 at 12:18; Stop 06/12/18 at 12:19; Status Cancel Albumin Human 0 ml @ As Directed STK-MED ONCE IV ; Start 06/12/18 at 12:19; Stop 06/12/18 at 12:20; Status DC Cisatracurium Besylate (Nimbex) 20 mg STK-MED ONCE IV ; Start 06/12/18 at 12:20; Stop 06/12/18 at 12:21; Status DC Midazolam HCl (Versed) 2 mg STK-MED ONCE .ROUTE ; Start 06/12/18 at 12:30; Stop 06/12/18 at 12:31; Status DC Iodixanol (Visipaque 320) 100 ml STK-MED ONCE .ROUTE ; Start 06/12/18 at 12:55; Stop 06/12/18 at 12:56; Status DC Iodixanol (Visipaque 320) 50 ml STK-MED ONCE .ROUTE ; Start 06/12/18 at 12:56; Stop 06/12/18 at 12:57; Status DC Heparin Sodium/ Sodium Chloride 1,000 ml @ As Directed STK-MED ONCE .ROUTE ; Start 06/12/18 at 12:56; Stop 06/12/18 at 12:57; Status DC Sodium Chloride (SODIUM CHLORIDE 20ml) 20 ml STK-MED ONCE IJ ; Start 06/12/18 at 14:29; Stop 06/12/18 at 14:30; Status DC Cefazolin Sodium/ Dextrose 50 ml @ As Directed STK-MED ONCE IV ; Start 06/12/18 at 14:40; Stop 06/12/18 at 14:41; Status DC Bupivacaine HCl/ Epinephrine Bitart (Sensorcaine-Epi 0.25%-1:551283 Mpf) 30 ml STK-MED ONCE .ROUTE Last administered on 06/12/18at 14:45; Start 06/12/18 at 14:41 ; Stop 06/12/18 at 14:42; Status DC Heparin Sodium (Porcine) (Heparin Sodium) 10,000 unit STK-MED ONCE .ROUTE ; Start 06/12/18 at 14:59; Stop 06/12/18 at 15:00; Status DC Heparin Sodium/ Sodium Chloride 500 ml @ As Directed STK-MED ONCE .ROUTE ; Start 06/12/18 at 15:00; Stop 06/12/18 at 15:01; Status DC Iodixanol (Visipaque 320) 100 ml STK-MED ONCE .ROUTE ; Start 06/12/18 at 15:13; Stop 06/12/18 at 15:14; Status DC Iodixanol (Visipaque 320) 250 ml 1X ONCE IV Last administered on 06/12/18at 15: 56; Start 06/12/18 at 15:30; Stop 06/12/18 at 15:36; Status DC Glycopyrrolate (Robinul) 1 mg STK-MED ONCE .ROUTE ; Start 06/12/18 at 15:33; Stop 06/12/18 at 15:34; Status DC Info (CONTRAST GIVEN -- Rx MONITORING) 1 each PRN DAILY PRN MC SEE COMMENTS; Start 06/12/18 at 15:45; Stop 06/14/18 at 15:44 Sevoflurane (Ultane) 90 ml STK-MED ONCE IH ; Start 06/12/18 at 15:53; Stop at 15:54; Status DC Throat Lozenges (Cepacol Sore Throat Lozenge) 1 fausto PRN Q2HRS PRN PO SORE THROAT; Start 06/13/18 at 11:15 Active Scripts Active Amiodarone Hcl 200 Mg Tablet 200 Mg PO DAILY MDD 1 Eliquis (Apixaban) 5 Mg Tablet 5 Mg PO BID MDD ` [Albuterol Sulfate] 2.5 MG/3 ML Nebu 2.5 Mg NEB PRN Q4HRS PRN Reported Diltiazem 24HR Cd (Diltiazem Hcl) 180 Mg Cap.er.24h 180 Mg PO DAILY Lipitor (Atorvastatin Calcium) 40 Mg Tablet 40 Mg PO HS Hydrocodone-Acetamin 5-325 mg (Hydrocodone/Acetaminophen) 1 Each Tablet 1 Each PO PRN Q6HRS PRN Furosemide 40 Mg Tablet 40 Mg PO DAILY Symbicort 160-4.5 Mcg Inhaler (Budesonide/Formoterol Fumarate) 10.2 Gm Hfa.aer.ad 2 Puff IH BID Toprol Xl (Metoprolol Succinate) 100 Mg Tab.er.24h 100 Mg PO DAILY Proair Hfa Inhaler (Albuterol Sulfate) 8.5 Gm Hfa.aer.ad 1 Puff INH PRN Q6HRS PRN Marina-Jayme Tablet (Folic Acid/Vitamin B Comp W-C) 0.8 Mg Tablet 0.8 Mg PO DAILY Hydroxyzine Hcl 25 Mg Tablet 50 Mg PO QMWF Lisinopril 20 Mg Tablet 1 Tab PO DAILY Lantus Solostar (Insulin Glargine,Hum.rec.anlog) 100 Unit/1 Ml Insuln.pen 30 Unit SQ QHS Aspirin 325 Mg Tablet 1 Tab PO DAILY Vitals/I & O Vital Sign - Last 24 Hours 06/12/18 06/12/18 06/12/18 06/12/18 11:59 12:00 12:09 13:00 Temp 98.5 98.5 Pulse 70 73 Resp 25 16 B/P (MAP) 159/65 (96) 136/66 (89) Pulse Ox 98 100 100 O2 Delivery Nasal Cannula Nasal Cannula Nasal Cannula Nasal Cannula O2 Flow Rate 3.0 3.0 3.0 3.0 06/12/18 06/12/18 06/12/18 06/12/18 16:18 16:18 16:45 17:00 Temp 96.8 96.8 Pulse 65 68 60 Resp 14 20 10 B/P (MAP) 164/70 146/46 158/50 Pulse Ox 95 91 92 O2 Delivery Simple Mask Mask High Flow Nasal Cannula High Flow Nasal Cannula O2 Flow Rate 10 5 5.0 5.0 06/12/18 06/12/18 06/12/18 06/12/18 17:15 17:30 17:45 18:00 Temp 97.4 97.4 Pulse 60 61 60 59 Resp 11 12 12 13 B/P (MAP) 152/60 (90) 139/50 (79) 148/62 (90) 145/56 (85) O2 Delivery Nasal Cannula Nasal Cannula Nasal Cannula Nasal Cannula O2 Flow Rate 5.0 5.0 5.0 5.0 06/12/18 06/12/18 06/12/18 06/12/18 19:00 20:00 20:00 21:00 Temp 97.8 97.8 Pulse 60 61 64 Resp 20 22 13 B/P (MAP) 126/74 (91) 161/56 (91) 164/77 (106) Pulse Ox 100 100 95 O2 Delivery Nasal Cannula Nasal Cannula Nasal Cannula Nasal Cannula O2 Flow Rate 5.0 5.0 3.0 3.0 06/12/18 06/12/18 06/13/18 06/13/18 22:00 23:00 00:00 00:00 Temp 98.1 98.1 Pulse 67 67 65 Resp 14 14 14 B/P (MAP) 140/64 (89) 148/70 (96) 150/74 (99) Pulse Ox 97 100 98 O2 Delivery Nasal Cannula Nasal Cannula Nasal Cannula Nasal Cannula O2 Flow Rate 3.0 3.0 3.0 3.0 06/13/18 06/13/18 06/13/18 06/13/18 01:00 02:00 03:00 04:00 Pulse 69 68 68 Resp 15 17 16 B/P (MAP) 130/58 (82) 118/54 (75) 124/57 (79) Pulse Ox 100 99 99 O2 Delivery Nasal Cannula Nasal Cannula Nasal Cannula Nasal Cannula O2 Flow Rate 3.0 3.0 3.0 3.0 06/13/18 06/13/18 06/13/18 06/13/18 04:00 05:00 06:00 07:00 Temp 97.4 97.4 Pulse 72 70 68 68 Resp 16 23 12 20 B/P (MAP) 132/58 (82) 137/58 (84) 93/67 (76) 112/51 (71) Pulse Ox 99 99 99 99 O2 Delivery Nasal Cannula Nasal Cannula Nasal Cannula Nasal Cannula O2 Flow Rate 3.0 3.0 3.0 3.0 06/13/18 06/13/18 06/13/18 06/13/18 08:00 08:00 09:00 09:07 Temp 98.6 98.6 Pulse 68 70 Resp 22 16 B/P (MAP) 138/58 (84) 139/59 (85) Pulse Ox 99 99 98 O2 Delivery Nasal Cannula Nasal Cannula Nasal Cannula Nasal Cannula O2 Flow Rate 3.0 3.0 3.0 2.0 06/13/18 06/13/18 09:42 10:00 Pulse 72 Resp 16 B/P (MAP) 133/59 (83) Pulse Ox 98 98 O2 Delivery Nasal Cannula Nasal Cannula O2 Flow Rate 2.0 3.0 Intake and Output 06/12/18 06/12/18 06/13/18 15:00 23:00 07:00 Intake Total 0 ml 0 ml 200 ml Output Total 0 ml 50 ml 0 ml Balance 0 ml -50 ml 200 ml YULIA DE ANDA III DO Jun 13, 2018 11:52
[2018-06-13] MEDS ORDERED: IV NORMAL SALINE 1000ML BAG 1,000 ML IV PRN ×2 (11:57)
[2018-06-13] MEDS ORDERED: LIDOCAINE 1% PF 2 ML VIAL. INJ ONE (12:00)
[2018-06-13] MEDS ORDERED: DIALYSIS PATIENT. MC PRN ×2 (12:00)
--- NOTE | 2018-06-13 15:01 | PDOC ---
SUBJECTIVE ROS States feeling good, s/p AA repair on 06/12 , seen on HD OBJECTIVE Vital Signs Vital Signs Date Time Temp Pulse Resp B/P (MAP) Pulse Ox O2 Delivery O2 Flow Rate FiO2 06/13/18 12:35 98 Nasal Cannula 2.0 06/13/18 10:00 72 16 133/59 (83) 06/13/18 08:00 98.6 98.6 I & 0 Intake and Output 06/13/18 06:59 Intake Total 200 ml Output Total 50 ml Balance 150 ml Intake Oral 200 ml Output Urine Total 0 ml Estimated Blood Loss 50 ml PHYSICAL EXAM Physical Exam General: Alert Lungs: Clear Cardiovascular: S1, S2 Abdomen: Soft, Non-tender, Neuro Exam: Alert Extremities: No Edema Skin: Warm DIAGNOSIS/ASSESSMENT Assessment & Plan ESRD - On HD MWF Has been on Hd for 4 years Seen on hD, tolerating well Continue as Ordered, melia straightener AAA- asymptomatic 5.9cm s/p endovascular repair 06/12 CAD; cardiac with without obstructive disease with 30% in-stent restenosis involving the distal segment of the RCA Chronic diastolic HF; LVEF 50% Moderate carotid stenosis Diabetes- as per Primary COMMENT/RELEVANT DATA Meds Current Medications Medications (Trade) Dose Ordered Sig/Eric Start Time Stop Time Status Last Admin Dose Admin Acetaminophen/ Hydrocodone Bitart (Lortab 5/325) 1 tab PRN Q6HRS PRN 06/08/18 11:30 06/13/18 09:42 1 TAB Albumin Human 0 ml @ As Directed STK-MED ONCE 06/12/18 12:19 06/12/18 12:20 DC Albuterol Sulfate (Ventolin Neb Soln) 2.5 mg PRN Q4HRS PRN 06/08/18 11:30 Amiodarone HCl (Cordarone) 200 mg DAILY 06/08/18 12:00 06/11/18 12:50 200 MG Apixaban (Eliquis) 5 mg BID 06/08/18 12:00 06/08/18 15:30 DC Aspirin (Hung Aspirin) 325 mg DAILY 06/08/18 12:00 06/13/18 09:21 325 MG Atorvastatin Calcium (Lipitor) 40 mg HS 06/08/18 21:00 06/12/18 23:06 40 MG Budesonide (Pulmicort) 0.5 mg RTBID 06/08/18 12:00 06/13/18 09:03 0.5 MG Bupivacaine HCl/ Epinephrine Bitart (Sensorcaine-Epi 0.25%-1:[id number] Mpf) 30 ml STK-MED ONCE 06/12/18 14:41 06/12/18 14:42 DC 06/12/18 14:45 16 ML Cefazolin Sodium 1 gm/Sodium Chloride 500 ml @ 500 mls/hr 1X ONCE 06/12/18 06:00 06/12/18 06:59 DC 06/12/18 14:45 Cefazolin Sodium/ Dextrose 50 ml @ As Directed STK-MED ONCE 06/12/18 14:40 06/12/18 14:41 DC Cellulose (Surgicel Fibrillar 1x2) 1 each STK-MED ONCE 06/12/18 12:08 06/12/18 12:09 DC Cisatracurium Besylate (Nimbex) 20 mg STK-MED ONCE 06/12/18 12:20 06/12/18 12:21 DC Dexamethasone Sodium Phosphate (Decadron) 20 mg STK-MED ONCE 06/12/18 12:17 06/12/18 12:18 DC Dextrose (Dextrose 50%-Water Syringe) 25 gm STK-MED ONCE 06/11/18 14:00 06/12/18 08:16 DC Diclofenac Sodium (Voltaren) 1 evgeny BID 06/09/18 13:30 06/13/18 09:22 1 EVGENY Diltiazem HCl (Cardizem 24hr Cd) 180 mg DAILY 06/08/18 12:00 06/10/18 12:07 180 MG Diphenhydramine HCl (Benadryl) 25 mg 1X ONCE 06/11/18 11:45 06/11/18 11:46 DC 06/11/18 11:43 25 MG Dopamine HCl/ Dextrose 250 ml @ 5.19 mls/hr CONT PRN 06/11/18 03:00 06/12/18 12:24 DC Enoxaparin Sodium (Lovenox Per Pharmacy Treatment Dosing) 1 each PRN DAILY PRN 06/08/18 15:30 Cancel Ephedrine Sulfate (Akovaz) 50 mg STK-MED ONCE 06/12/18 12:17 06/12/18 12:18 DC Etomidate (Amidate) 20 mg STK-MED ONCE 06/12/18 12:17 06/12/18 12:18 DC Famotidine (Pepcid Vial) 20 mg STK-MED ONCE 06/12/18 12:17 06/12/18 12:18 DC Fentanyl Citrate (Fentanyl 2ml Vial) 100 mcg STK-MED ONCE 06/12/18 12:17 06/12/18 12:18 DC Furosemide (Lasix) 40 mg DAILY 06/08/18 12:00 06/13/18 09:21 40 MG Glycopyrrolate (Robinul) 1 mg STK-MED ONCE 06/12/18 15:33 06/12/18 15:34 DC Heparin Sodium (Porcine) (Heparin Sodium) 10,000 unit STK-MED ONCE 06/12/18 14:59 06/12/18 15:00 DC Heparin Sodium (Porcine) 5000 unit/Sodium Chloride 505 ml @ 505 mls/hr 1X ONCE 06/12/18 06:00 06/12/18 06:59 DC 06/12/18 14:45 Heparin Sodium/ Dextrose 500 ml @ 0 mls/hr CONT PRN 06/11/18 04:30 06/12/18 12:24 DC 06/11/18 05:01 16.6 MLS/HR Heparin Sodium/ Sodium Chloride 500 ml @ As Directed STK-MED ONCE 06/12/18 15:00 06/12/18 15:01 DC Heparin Sodium/ Sodium Chloride (HEPARIN for ARTERIAL LINE FLUSH) 1,000 unit 1X ONCE 06/11/18 11:45 06/11/18 11:46 DC 06/11/18 11:42 1,000 UNIT Hydromorphone HCl (Dilaudid) 2 mg STK-MED ONCE 06/12/18 12:18 06/12/18 12:19 DC Hydroxyzine Pamoate (Vistaril) 50 mg QMWF 06/08/18 16:00 06/08/18 16:49 50 MG Info (Anti-Coagulation Monitoring By Pharmacy) 1 each PRN DAILY PRN 06/10/18 11:45 06/12/18 11:01 DC 06/11/18 16:33 1 EACH Info (CONTRAST GIVEN -- Rx MONITORING) 1 each PRN DAILY PRN 06/12/18 15:45 06/14/18 15:44 Info (PHARMACY MONITORING -- do not chart) 1 each PRN DAILY PRN 06/13/18 12:00 UNV Insulin Glargine (Lantus) 30 units QHS 06/08/18 21:00 06/11/18 23:41 30 UNITS Iodixanol (Visipaque 320) 250 ml 1X ONCE 06/12/18 15:30 06/12/18 15:36 DC 06/12/18 15:56 200 ML Iohexol (Omnipaque 350 Mg/ml) 90 ml 1X ONCE 06/11/18 04:00 06/11/18 04:01 DC 06/11/18 04:02 90 ML Lidocaine HCl (Lidocaine 1% 20ml Vial) 15 ml 1X ONCE 06/11/18 11:45 06/11/18 11:46 DC 06/11/18 11:43 15 ML Lidocaine HCl (Lidocaine Pf 2% Vial) 5 ml STK-MED ONCE 06/12/18 12:17 06/12/18 12:18 DC Lidocaine HCl (Xylocaine-Mpf 1% 2ml Vial) 2 ml 1X ONCE 06/13/18 12:00 06/13/18 12:05 DC 06/13/18 12:16 2 ML Lisinopril (Prinivil) 20 mg DAILY 06/08/18 12:00 06/10/18 09:08 20 MG Methylprednisolone Sodium Succinate (SOLU-Medrol 125MG VIAL) 125 mg 1X ONCE 06/11/18 11:45 06/11/18 11:46 DC 06/11/18 11:43 125 MG Metoprolol Succinate (Toprol Xl) 100 mg DAILY 06/08/18 12:00 06/10/18 12:07 100 MG Midazolam HCl (Versed) 2 mg STK-MED ONCE 06/12/18 12:30 06/12/18 12:31 DC Morphine Sulfate (Morphine Sulfate) 1 mg PRN Q10MIN PRN 06/12/18 07:00 06/12/18 12:24 DC Non-Formulary Medication (Budesonide/ Formoterol Fumarate (Symbicort 160-4.5 Mcg Inhaler)) 2 puff BID 06/08/18 21:00 UNV Non-Formulary Medication ([Albuterol Sulfate] ) 2.5 mg PRN Q4HRS PRN 06/08/18 11:30 UNV Ondansetron HCl (Zofran) 4 mg STK-MED ONCE 06/12/18 12:17 06/12/18 12:18 DC Prednisone (Prednisone) 20 mg 1X ONCE 06/12/18 09:00 06/12/18 09:01 DC Prochlorperazine Edisylate (Compazine) 5 mg PACU PRN PRN 06/12/18 07:00 06/13/18 06:59 DC Propofol 20 ml @ As Directed STK-MED ONCE 06/12/18 12:17 06/12/18 12:18 DC Protamine Sulfate (Protamine) 50 mg STK-MED ONCE 06/12/18 12:08 06/12/18 12:09 DC Ringer's Solution 1,000 ml @ 30 mls/hr Q24H 06/12/18 07:00 06/12/18 18:59 DC 06/12/18 07:00 30 MLS/HR Sevoflurane (Ultane) 90 ml STK-MED ONCE 06/12/18 15:53 06/12/18 15:54 DC Sodium Chloride 1,000 ml @ 400 mls/hr Q2H30M PRN 06/13/18 11:57 06/13/18 23:56 Sodium Chloride (Normal Saline Flush) 3 ml QSHIFT PRN 06/11/18 12:45 Sodium Chloride (SODIUM CHLORIDE 20ml) 20 ml STK-MED ONCE 06/12/18 14:29 06/12/18 14:30 DC Throat Lozenges (Cepacol Sore Throat Lozenge) 1 fausto PRN Q2HRS PRN 06/13/18 11:15 Vasopressin (Vasostrict) 20 unit STK-MED ONCE 06/12/18 12:18 06/12/18 12:19 Cancel Vecuronium [place] (Norcuron Bolus) 10 mg STK-MED ONCE 06/12/18 12:17 06/12/18 12:18 DC Lab Laboratory Tests Test 06/12/18 23:05 06/13/18 07:40 06/13/18 09:03 06/13/18 11:19 Glucose (Fingerstick) 82 mg/dL (70-99) 74 mg/dL (70-99) 156 mg/dL (70-99) White Blood Count 9.6 x10^3/uL (4.0-11.0) Red Blood Count 3.11 x10^6/uL (3.50-5.40) Hemoglobin 9.9 g/dL (12.0-15.5) Hematocrit 31.2 % (36.0-47.0) Mean Corpuscular Volume 100 fL (79-100) Mean Corpuscular Hemoglobin 32 pg (25-35) Mean Corpuscular Hemoglobin Concent 32 g/dL (31-37) Red Cell Distribution Width 15.5 % (11.5-14.5) Platelet Count 205 x10^3/uL (140-400) Neutrophils (%) (Auto) 85 % (31-73) Lymphocytes (%) (Auto) 4 % (24-48) Monocytes (%) (Auto) 11 % (0-9) Eosinophils (%) (Auto) 0 % (0-3) Basophils (%) (Auto) 0 % (0-3) Neutrophils # (Auto) 8.1 x10^3uL (1.8-7.7) Lymphocytes # (Auto) 0.4 x10^3/uL (1.0-4.8) Monocytes # (Auto) 1.0 x10^3/uL (0.0-1.1) Eosinophils # (Auto) 0.0 x10^3/uL (0.0-0.7) Basophils # (Auto) 0.0 x10^3/uL (0.0-0.2) Segmented Neutrophils % 80 % (35-66) Band Neutrophils % 2 % (0-9) Lymphocytes % 12 % (24-48) Monocytes % 6 % (0-10) Platelet Estimate Adequate (ADEQUATE) Large Platelets Present Anisocytosis Slight Sodium Level 141 mmol/L (136-145) Potassium Level 5.3 mmol/L (3.5-5.1) Chloride Level 103 mmol/L (98-107) Carbon Dioxide Level 30 mmol/L (21-32) Anion Gap 8 (6-14) Blood Urea Nitrogen 43 mg/dL (7-20) Creatinine 6.5 mg/dL (0.6-1.0) Estimated GFR (Cockcroft-Gault) 7.6 Glucose Level 49 mg/dL (70-99) Calcium Level 6.9 mg/dL (8.5-10.1) Results All relevant outside records, renal labs, imaging studies, telemetry/EKG's were reviewed. DESIREE MELARA MD Jun 13, 2018 15:01
[2018-06-13] MEDS: AMIODARONE HCL 200 MG TABLET. PO SCH (18:00)
[2018-06-13] MEDS: hydrOXYzine PAMOATE 25 MG CAPSULE PO SCH (18:00)
[2018-06-13] MEDS: ATORVASTATIN CALCIUM 40 MG TABLET. PO SCH (21:30)
[2018-06-13] MEDS: INSULIN GLARGINE 300 UNITS/3 ML INSULN.PEN. SQ SCH (21:35)
[2018-06-14] VITALS: BP 124/42
[2018-06-14 04:00] VITALS: BP 153/61
[2018-06-14] MEDS ORDERED: DEXTROSE 50% 25 GM / 50ML DISP.SYRIN. IV ONE (04:37)
[2018-06-14] MEDS: DEXTROSE 50% 25 GM / 50ML DISP.SYRIN. IV PRN ×2 (04:40→05:47)
[2018-06-14 05:31] LABS: CREATININE 4.5 mg/dL (0.6-1.0); GFR 11.6; POTASSIUM 3.8 mmol/L (3.5-5.1)
[2018-06-14 06:13] LABS: BASO % 0 % (0-3); EOS % 0 % (0-3); HEMOGLOBIN 9.6 g/dL (12.0-15.5); LYMPH # 0.2 x10^3/uL (1.0-4.8); LYMPH % 2 % (24-48); MEAN CORPUSCULAR HEMOGLOBIN 31 pg (25-35); MEAN CORPUSCULAR HGB CONC 31 g/dL (31-37); MEAN CORPUSCULAR VOLUME 100 fL (79-100); MONO # 1.1 x10^3/uL (0.0-1.1); MONO % 11 % (0-9); NEUT # 8.5 x10^3uL (1.8-7.7); NEUT % 86 % (31-73); PLATELET COUNT 193 x10^3/uL (140-400); RED BLOOD COUNT 3.09 x10^6/uL (3.50-5.40); RED CELL DISTRIBUTION WIDTH 15.3 % (11.5-14.5); WHITE BLOOD COUNT 9.9 x10^3/uL (4.0-11.0)
--- NOTE | 2018-06-14 06:58 | NUR ---
pt BG at 2133 was 233 so lantus was given. Pt became diaphoretic and confused at 0430. She had disconnected herself to the monitor and was trying to get out of bed. after calming the pt down I checked her BG. BG dropped to 31 and I immediately gave 12.5g of D50% and then rechecked BG 15 min later and BG was 97. Around 0530 pt complained of dizziness so I checked BG which had dropped to 53. applejuice and D50 was given again. pt BG was checked 15 min later and had gone up to 87. pt vitals are stable will continue to monitor.
[2018-06-14 08:00] VITALS: BP 143/68
[2018-06-14] MEDS: ALBUTEROL SULFATE 2.5 MG/3 ML NEBU. NEB SCH ×4 (08:44→19:44)
[2018-06-14] MEDS: BUDESONIDE 0.5 MG/2 ML NEBU. NEB SCH ×2 (08:44→19:44)
[2018-06-14] MEDS: METOPROLOL SUCC 24HR ER 100 MG TAB.ER.24H. PO SCH (09:00)
[2018-06-14] MEDS: LISINOPRIL 20 MG TABLET PO SCH (09:00)
--- NOTE | 2018-06-14 09:10 | PDOC ---
PULMONARY PROGRESS NOTES Subjective Patient with no new complaints Vitals Vital Signs Date Time Temp Pulse Resp B/P (MAP) Pulse Ox O2 Delivery O2 Flow Rate FiO2 06/14/18 08:45 96 Nasal Cannula 2.0 06/14/18 04:00 98.9 58 16 153/61 (91) 98.9 ROS: No Nausea, No Chest Pain, No Abdominal Pain General: Alert Lungs: Clear Cardiovascular: S1, S2 Abdomen: Soft, Non-tender, Other Neuro Exam: Alert Extremities: No Edema Skin: Warm Labs Laboratory Tests Test 06/12/18 12:51 06/12/18 23:05 06/13/18 07:40 06/13/18 09:03 Glucose (Fingerstick) 77 mg/dL (70-99) 82 mg/dL (70-99) 74 mg/dL (70-99) White Blood Count 9.6 x10^3/uL (4.0-11.0) Red Blood Count 3.11 x10^6/uL (3.50-5.40) Hemoglobin 9.9 g/dL (12.0-15.5) Hematocrit 31.2 % (36.0-47.0) Mean Corpuscular Volume 100 fL (79-100) Mean Corpuscular Hemoglobin 32 pg (25-35) Mean Corpuscular Hemoglobin Concent 32 g/dL (31-37) Red Cell Distribution Width 15.5 % (11.5-14.5) Platelet Count 205 x10^3/uL (140-400) Neutrophils (%) (Auto) 85 % (31-73) Lymphocytes (%) (Auto) 4 % (24-48) Monocytes (%) (Auto) 11 % (0-9) Eosinophils (%) (Auto) 0 % (0-3) Basophils (%) (Auto) 0 % (0-3) Neutrophils # (Auto) 8.1 x10^3uL (1.8-7.7) Lymphocytes # (Auto) 0.4 x10^3/uL (1.0-4.8) Monocytes # (Auto) 1.0 x10^3/uL (0.0-1.1) Eosinophils # (Auto) 0.0 x10^3/uL (0.0-0.7) Basophils # (Auto) 0.0 x10^3/uL (0.0-0.2) Segmented Neutrophils % 80 % (35-66) Band Neutrophils % 2 % (0-9) Lymphocytes % 12 % (24-48) Monocytes % 6 % (0-10) Platelet Estimate Adequate (ADEQUATE) Large Platelets Present Anisocytosis Slight Sodium Level 141 mmol/L (136-145) Potassium Level 5.3 mmol/L (3.5-5.1) Chloride Level 103 mmol/L (98-107) Carbon Dioxide Level 30 mmol/L (21-32) Anion Gap 8 (6-14) Blood Urea Nitrogen 43 mg/dL (7-20) Creatinine 6.5 mg/dL (0.6-1.0) Estimated GFR (Cockcroft-Gault) 7.6 Glucose Level 49 mg/dL (70-99) Calcium Level 6.9 mg/dL (8.5-10.1) Test 06/13/18 11:19 06/13/18 17:55 06/13/18 21:33 06/14/18 04:34 Glucose (Fingerstick) 156 mg/dL (70-99) 101 mg/dL (70-99) 233 mg/dL (70-99) 31 mg/dL (70-99) Test 06/14/18 04:40 06/14/18 04:45 06/14/18 05:45 06/14/18 06:05 White Blood Count 9.9 x10^3/uL (4.0-11.0) Red Blood Count 3.09 x10^6/uL (3.50-5.40) Hemoglobin 9.6 g/dL (12.0-15.5) Hematocrit 31.0 % (36.0-47.0) Mean Corpuscular Volume 100 fL (79-100) Mean Corpuscular Hemoglobin 31 pg (25-35) Mean Corpuscular Hemoglobin Concent 31 g/dL (31-37) Red Cell Distribution Width 15.3 % (11.5-14.5) Platelet Count 193 x10^3/uL (140-400) Neutrophils (%) (Auto) 86 % (31-73) Lymphocytes (%) (Auto) 2 % (24-48) Monocytes (%) (Auto) 11 % (0-9) Eosinophils (%) (Auto) 0 % (0-3) Basophils (%) (Auto) 0 % (0-3) Neutrophils # (Auto) 8.5 x10^3uL (1.8-7.7) Lymphocytes # (Auto) 0.2 x10^3/uL (1.0-4.8) Monocytes # (Auto) 1.1 x10^3/uL (0.0-1.1) Eosinophils # (Auto) 0.0 x10^3/uL (0.0-0.7) Basophils # (Auto) 0.0 x10^3/uL (0.0-0.2) Sodium Level 141 mmol/L (136-145) Potassium Level 3.8 mmol/L (3.5-5.1) Chloride Level 103 mmol/L (98-107) Carbon Dioxide Level 32 mmol/L (21-32) Anion Gap 6 (6-14) Blood Urea Nitrogen 26 mg/dL (7-20) Creatinine 4.5 mg/dL (0.6-1.0) Estimated GFR (Cockcroft-Gault) 11.6 Glucose Level 91 mg/dL (70-99) Calcium Level 7.0 mg/dL (8.5-10.1) Glucose (Fingerstick) 97 mg/dL (70-99) 53 mg/dL (70-99) 85 mg/dL (70-99) Test 06/14/18 06:39 Glucose (Fingerstick) 91 mg/dL (70-99) Laboratory Tests Test 06/13/18 11:19 06/13/18 17:55 06/13/18 21:33 06/14/18 04:34 Glucose (Fingerstick) 156 mg/dL (70-99) 101 mg/dL (70-99) 233 mg/dL (70-99) 31 mg/dL (70-99) Test 06/14/18 04:40 06/14/18 04:45 06/14/18 05:45 06/14/18 06:05 White Blood Count 9.9 x10^3/uL (4.0-11.0) Red Blood Count 3.09 x10^6/uL (3.50-5.40) Hemoglobin 9.6 g/dL (12.0-15.5) Hematocrit 31.0 % (36.0-47.0) Mean Corpuscular Volume 100 fL (79-100) Mean Corpuscular Hemoglobin 31 pg (25-35) Mean Corpuscular Hemoglobin Concent 31 g/dL (31-37) Red Cell Distribution Width 15.3 % (11.5-14.5) Platelet Count 193 x10^3/uL (140-400) Neutrophils (%) (Auto) 86 % (31-73) Lymphocytes (%) (Auto) 2 % (24-48) Monocytes (%) (Auto) 11 % (0-9) Eosinophils (%) (Auto) 0 % (0-3) Basophils (%) (Auto) 0 % (0-3) Neutrophils # (Auto) 8.5 x10^3uL (1.8-7.7) Lymphocytes # (Auto) 0.2 x10^3/uL (1.0-4.8) Monocytes # (Auto) 1.1 x10^3/uL (0.0-1.1) Eosinophils # (Auto) 0.0 x10^3/uL (0.0-0.7) Basophils # (Auto) 0.0 x10^3/uL (0.0-0.2) Sodium Level 141 mmol/L (136-145) Potassium Level 3.8 mmol/L (3.5-5.1) Chloride Level 103 mmol/L (98-107) Carbon Dioxide Level 32 mmol/L (21-32) Anion Gap 6 (6-14) Blood Urea Nitrogen 26 mg/dL (7-20) Creatinine 4.5 mg/dL (0.6-1.0) Estimated GFR (Cockcroft-Gault) 11.6 Glucose Level 91 mg/dL (70-99) Calcium Level 7.0 mg/dL (8.5-10.1) Glucose (Fingerstick) 97 mg/dL (70-99) 53 mg/dL (70-99) 85 mg/dL (70-99) Test 06/14/18 06:39 Glucose (Fingerstick) 91 mg/dL (70-99) Medications Active Scripts Medications Dose Route/Sig Max Daily Dose Days Date Category Diltiazem 24HR Cd (Diltiazem Hcl) 180 Mg Cap.er.24h 180 Mg PO DAILY 06/08/18 Reported Lipitor (Atorvastatin Calcium) 40 Mg Tablet 40 Mg PO HS 06/08/18 Reported Hydrocodone-Acetamin 5-325 mg (Hydrocodone/Acetaminophen) 1 Each Tablet 1 Each PO PRN Q6HRS PRN 06/08/18 Reported Furosemide 40 Mg Tablet 40 Mg PO DAILY 06/08/18 Reported Symbicort 160-4.5 Mcg Inhaler (Budesonide/Formoterol Fumarate) 10.2 Gm Hfa.aer.ad 2 Puff IH BID 06/08/18 Reported Toprol Xl (Metoprolol Succinate) 100 Mg Tab.er.24h 100 Mg PO DAILY 06/08/18 Reported Proair Hfa Inhaler (Albuterol Sulfate) 8.5 Gm Hfa.aer.ad 1 Puff INH PRN Q6HRS PRN 06/08/18 Reported Amiodarone Hcl 200 Mg Tablet 200 Mg PO DAILY MDD 1 03/24/18 Rx Eliquis (Apixaban) 5 Mg Tablet 5 Mg PO BID MDD ` 03/24/18 Rx Marina-Jayme Tablet (Folic Acid/Vitamin B Comp W-C) 0.8 Mg Tablet 0.8 Mg PO DAILY 03/21/18 Reported Hydroxyzine Hcl 25 Mg Tablet 50 Mg PO QMWF 03/21/18 Reported Lisinopril 20 Mg Tablet 1 Tab PO DAILY 11/06/17 Reported Lantus Solostar (Insulin Glargine,Hum.rec.anlog) 100 Unit/1 Ml Insuln.pen 30 Unit SQ QHS 09/03/15 Reported [Albuterol Sulfate] 2.5 MG/3 ML Nebu 2.5 Mg NEB PRN Q4HRS PRN 12/26/14 Rx Aspirin 325 Mg Tablet 1 Tab PO DAILY 01/25/14 Reported Impression . IMPRESSION: 1. Chronic respiratory failure. Respiratory status appears to be compensated. Continue oxygen supplementation. 2. 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 3. Coronary artery disease, status post previous cardiac catheterization and stent placement. 4. Recent CT revealing abdominal aortic aneurysm measuring 6 cm; the patient to be seen by cardiovascular surgeon. 5. Renal failure, on hemodialysis. 6. BRADYCARDIA A/P: Asymptomatic 6cm AAA POD #1 3 1) Bilateral percutaneous access and closure for delivery of endograft greater than 12 Cymraes sheath CPT 66000, [id number] 2) endovascular repair of abdominal aortic aneurysm using bifurcated device ( [place] Excluder) CPT 01811 CATH Conclusion 1. Nonobstructive coronary artery disease with 30% in-stent restenosis involving the distal segment of the right coronary artery 2. Posterobasal wall hypokinesis with ejection fraction estimated at 45%. Recommendations Medical Therapy Plan . transfer out of ICU maintain fluid balance follow cardiology input EARL MARTINEZ MD Jun 14, 2018 09:10
[2018-06-14] MEDS: FUROSEMIDE 40 MG TABLET. PO SCH (09:59)
[2018-06-14] MEDS: DICLOFENAC SODIUM 1% TOPICAL GEL 100GM TUBE. TP SCH ×2 (09:59→20:56)
[2018-06-14] MEDS: AMIODARONE HCL 200 MG TABLET. PO SCH (10:00)
[2018-06-14] MEDS: ASPIRIN 325 MG TABLET PO SCH (10:00)
--- NOTE | 2018-06-14 10:37 | PDOC ---
SUBJECTIVE ROS States feeling tired today , BS Low OBJECTIVE Vital Signs Vital Signs Date Time Temp Pulse Resp B/P (MAP) Pulse Ox O2 Delivery O2 Flow Rate FiO2 06/14/18 10:05 71 143/68 06/14/18 08:45 96 Nasal Cannula 2.0 06/14/18 08:00 97.3 20 97.3 I & 0 Intake and Output 06/14/18 06:59 Intake Total 570 ml Output Total 0 ml Balance 570 ml Intake Oral 570 ml Output Urine Total 0 ml PHYSICAL EXAM Physical Exam General: Alert Lungs: Clear Cardiovascular: S1, S2 Abdomen: Soft, Non-tender, Neuro Exam: Alert Extremities: No Edema Skin: Warm DIAGNOSIS/ASSESSMENT Assessment & Plan ESRD - On HD MWF Has been on Hd for 4 years Currently no indication today AAA- asymptomatic 5.9cm s/p endovascular repair 06/12 CAD; cardiac with without obstructive disease with 30% in-stent restenosis involving the distal segment of the RCA Chronic diastolic HF; LVEF 50% Moderate carotid stenosis Diabetes- as per Primary COMMENT/RELEVANT DATA Meds Current Medications Medications (Trade) Dose Ordered Sig/Eric Start Time Stop Time Status Last Admin Dose Admin Acetaminophen/ Hydrocodone Bitart (Lortab 5/325) 1 tab PRN Q6HRS PRN 06/08/18 11:30 06/13/18 16:07 1 TAB Albumin Human 0 ml @ As Directed STK-MED ONCE 06/12/18 12:19 06/12/18 12:20 DC Albuterol Sulfate (Ventolin Neb Soln) 2.5 mg PRN Q4HRS PRN 06/08/18 11:30 Amiodarone HCl (Cordarone) 200 mg DAILY 06/08/18 12:00 06/14/18 10:00 200 MG Apixaban (Eliquis) 5 mg BID 06/08/18 12:00 06/08/18 15:30 DC Aspirin (Hung Aspirin) 325 mg DAILY 06/08/18 12:00 06/14/18 10:00 325 MG Atorvastatin Calcium (Lipitor) 40 mg HS 06/08/18 21:00 06/13/18 21:30 40 MG Budesonide (Pulmicort) 0.5 mg RTBID 06/08/18 12:00 06/14/18 08:44 0.5 MG Bupivacaine HCl/ Epinephrine Bitart (Sensorcaine-Epi 0.25%-1:700499 Mpf) 30 ml STK-MED ONCE 06/12/18 14:41 06/12/18 14:42 DC 06/12/18 14:45 16 ML Cefazolin Sodium 1 gm/Sodium Chloride 500 ml @ 500 mls/hr 1X ONCE 06/12/18 06:00 06/12/18 06:59 DC 06/12/18 14:45 Cefazolin Sodium/ Dextrose 50 ml @ As Directed STK-MED ONCE 06/12/18 14:40 06/12/18 14:41 DC Cellulose (Surgicel Fibrillar 1x2) 1 each STK-MED ONCE 06/12/18 12:08 06/12/18 12:09 DC Cisatracurium Besylate (Nimbex) 20 mg STK-MED ONCE 06/12/18 12:20 06/12/18 12:21 DC Dexamethasone Sodium Phosphate (Decadron) 20 mg STK-MED ONCE 06/12/18 12:17 06/12/18 12:18 DC Dextrose (Dextrose 50%-Water Syringe) 12.5 gm PRN Q15MIN PRN 06/14/18 05:15 06/14/18 05:47 12.5 GM Diclofenac Sodium (Voltaren) 1 evgeny BID 06/09/18 13:30 06/14/18 09:59 1 EVGENY Diltiazem HCl (Cardizem 24hr Cd) 180 mg DAILY 06/08/18 12:00 06/14/18 10:05 180 MG Diphenhydramine HCl (Benadryl) 25 mg 1X ONCE 06/11/18 11:45 06/11/18 11:46 DC 06/11/18 11:43 25 MG Dopamine HCl/ Dextrose 250 ml @ 5.19 mls/hr CONT PRN 06/11/18 03:00 06/12/18 12:24 DC Enoxaparin Sodium (Lovenox Per Pharmacy Treatment Dosing) 1 each PRN DAILY PRN 06/08/18 15:30 Cancel Ephedrine Sulfate (Akovaz) 50 mg STK-MED ONCE 06/12/18 12:17 06/12/18 12:18 DC Etomidate (Amidate) 20 mg STK-MED ONCE 06/12/18 12:17 06/12/18 12:18 DC Famotidine (Pepcid Vial) 20 mg STK-MED ONCE 06/12/18 12:17 06/12/18 12:18 DC Fentanyl Citrate (Fentanyl 2ml Vial) 100 mcg STK-MED ONCE 06/12/18 12:17 06/12/18 12:18 DC Furosemide (Lasix) 40 mg DAILY 06/08/18 12:00 06/14/18 09:59 40 MG Glycopyrrolate (Robinul) 1 mg STK-MED ONCE 06/12/18 15:33 06/12/18 15:34 DC Heparin Sodium (Porcine) (Heparin Sodium) 10,000 unit STK-MED ONCE 06/12/18 14:59 06/12/18 15:00 DC Heparin Sodium (Porcine) 5000 unit/Sodium Chloride 505 ml @ 505 mls/hr 1X ONCE 06/12/18 06:00 06/12/18 06:59 DC 06/12/18 14:45 Heparin Sodium/ Dextrose 500 ml @ 0 mls/hr CONT PRN 06/11/18 04:30 06/12/18 12:24 DC 06/11/18 05:01 16.6 MLS/HR Heparin Sodium/ Sodium Chloride 500 ml @ As Directed STK-MED ONCE 06/12/18 15:00 06/12/18 15:01 DC Heparin Sodium/ Sodium Chloride (HEPARIN for ARTERIAL LINE FLUSH) 1,000 unit 1X ONCE 06/11/18 11:45 06/11/18 11:46 DC 06/11/18 11:42 1,000 UNIT Hydromorphone HCl (Dilaudid) 2 mg STK-MED ONCE 06/12/18 12:18 06/12/18 12:19 DC Hydroxyzine Pamoate (Vistaril) 50 mg QMWF 06/08/18 16:00 06/13/18 18:00 50 MG Info (Anti-Coagulation Monitoring By Pharmacy) 1 each PRN DAILY PRN 06/10/18 11:45 06/12/18 11:01 DC 06/11/18 16:33 1 EACH Info (CONTRAST GIVEN -- Rx MONITORING) 1 each PRN DAILY PRN 06/12/18 15:45 06/14/18 15:44 Info (PHARMACY MONITORING -- do not chart) 1 each PRN DAILY PRN 06/13/18 12:00 UNV Insulin Glargine (Lantus) 30 units QHS 06/08/18 21:00 06/13/18 21:35 30 UNITS Iodixanol (Visipaque 320) 250 ml 1X ONCE 06/12/18 15:30 06/12/18 15:36 DC 06/12/18 15:56 200 ML Iohexol (Omnipaque 350 Mg/ml) 90 ml 1X ONCE 06/11/18 04:00 06/11/18 04:01 DC 06/11/18 04:02 90 ML Lidocaine HCl (Lidocaine 1% 20ml Vial) 15 ml 1X ONCE 06/11/18 11:45 06/11/18 11:46 DC 06/11/18 11:43 15 ML Lidocaine HCl (Lidocaine Pf 2% Vial) 5 ml STK-MED ONCE 06/12/18 12:17 06/12/18 12:18 DC Lidocaine HCl (Xylocaine-Mpf 1% 2ml Vial) 2 ml 1X ONCE 06/13/18 12:00 06/13/18 12:05 DC 06/13/18 12:16 2 ML Lisinopril (Prinivil) 20 mg DAILY 06/08/18 12:00 06/10/18 09:08 20 MG Methylprednisolone Sodium Succinate (SOLU-Medrol 125MG VIAL) 125 mg 1X ONCE 06/11/18 11:45 06/11/18 11:46 DC 06/11/18 11:43 125 MG Metoprolol Succinate (Toprol Xl) 100 mg DAILY 06/08/18 12:00 06/10/18 12:07 100 MG Midazolam HCl (Versed) 2 mg STK-MED ONCE 06/12/18 12:30 06/12/18 12:31 DC Morphine Sulfate (Morphine Sulfate) 1 mg PRN Q10MIN PRN 06/12/18 07:00 06/12/18 12:24 DC Non-Formulary Medication (Budesonide/ Formoterol Fumarate (Symbicort 160-4.5 Mcg Inhaler)) 2 puff BID 06/08/18 21:00 UNV Non-Formulary Medication ([Albuterol Sulfate] ) 2.5 mg PRN Q4HRS PRN 06/08/18 11:30 UNV Ondansetron HCl (Zofran) 4 mg STK-MED ONCE 06/12/18 12:17 06/12/18 12:18 DC Prednisone (Prednisone) 20 mg 1X ONCE 06/12/18 09:00 06/12/18 09:01 DC Prochlorperazine Edisylate (Compazine) 5 mg PACU PRN PRN 06/12/18 07:00 06/13/18 06:59 DC Propofol 20 ml @ As Directed STK-MED ONCE 06/12/18 12:17 06/12/18 12:18 DC Protamine Sulfate (Protamine) 50 mg STK-MED ONCE 06/12/18 12:08 06/12/18 12:09 DC Ringer's Solution 1,000 ml @ 30 mls/hr Q24H 06/12/18 07:00 06/12/18 18:59 DC 06/12/18 07:00 30 MLS/HR Sevoflurane (Ultane) 90 ml STK-MED ONCE 06/12/18 15:53 06/12/18 15:54 DC Sodium Chloride 1,000 ml @ 400 mls/hr Q2H30M PRN 06/13/18 11:57 06/13/18 23:56 DC Sodium Chloride (Normal Saline Flush) 3 ml QSHIFT PRN 06/11/18 12:45 Sodium Chloride (SODIUM CHLORIDE 20ml) 20 ml STK-MED ONCE 06/12/18 14:29 06/12/18 14:30 DC Throat Lozenges (Cepacol Sore Throat Lozenge) 1 fausto PRN Q2HRS PRN 06/13/18 11:15 Vasopressin (Vasostrict) 20 unit STK-MED ONCE 06/12/18 12:18 06/12/18 12:19 Cancel Vecuronium Jackson (Norcuron Bolus) 10 mg STK-MED ONCE 06/12/18 12:17 06/12/18 12:18 DC Lab Laboratory Tests Test 06/13/18 11:19 06/13/18 17:55 06/13/18 21:33 06/14/18 04:34 Glucose (Fingerstick) 156 mg/dL (70-99) 101 mg/dL (70-99) 233 mg/dL (70-99) 31 mg/dL (70-99) Test 06/14/18 04:40 06/14/18 04:45 06/14/18 05:45 06/14/18 06:05 White Blood Count 9.9 x10^3/uL (4.0-11.0) Red Blood Count 3.09 x10^6/uL (3.50-5.40) Hemoglobin 9.6 g/dL (12.0-15.5) Hematocrit 31.0 % (36.0-47.0) Mean Corpuscular Volume 100 fL (79-100) Mean Corpuscular Hemoglobin 31 pg (25-35) Mean Corpuscular Hemoglobin Concent 31 g/dL (31-37) Red Cell Distribution Width 15.3 % (11.5-14.5) Platelet Count 193 x10^3/uL (140-400) Neutrophils (%) (Auto) 86 % (31-73) Lymphocytes (%) (Auto) 2 % (24-48) Monocytes (%) (Auto) 11 % (0-9) Eosinophils (%) (Auto) 0 % (0-3) Basophils (%) (Auto) 0 % (0-3) Neutrophils # (Auto) 8.5 x10^3uL (1.8-7.7) Lymphocytes # (Auto) 0.2 x10^3/uL (1.0-4.8) Monocytes # (Auto) 1.1 x10^3/uL (0.0-1.1) Eosinophils # (Auto) 0.0 x10^3/uL (0.0-0.7) Basophils # (Auto) 0.0 x10^3/uL (0.0-0.2) Sodium Level 141 mmol/L (136-145) Potassium Level 3.8 mmol/L (3.5-5.1) Chloride Level 103 mmol/L (98-107) Carbon Dioxide Level 32 mmol/L (21-32) Anion Gap 6 (6-14) Blood Urea Nitrogen 26 mg/dL (7-20) Creatinine 4.5 mg/dL (0.6-1.0) Estimated GFR (Cockcroft-Gault) 11.6 Glucose Level 91 mg/dL (70-99) Calcium Level 7.0 mg/dL (8.5-10.1) Glucose (Fingerstick) 97 mg/dL (70-99) 53 mg/dL (70-99) 85 mg/dL (70-99) Test 06/14/18 06:39 06/14/18 09:30 06/14/18 10:10 Glucose (Fingerstick) 91 mg/dL (70-99) 60 mg/dL (70-99) 81 mg/dL (70-99) Results All relevant outside records, renal labs, imaging studies, telemetry/EKG's were reviewed. DESIREE MELARA MD Jun 14, 2018 10:36
--- NOTE | 2018-06-14 11:52 | PDOC ---
PROGRESS NOTES Chief Complaint Chief Complaint Abdominal aortic aneurysm s/p endograft on 06/12 Vasculopathy CAD s/p cardiac cath with stents CHF COPD Diabetes Hypertension, Hyperlipidemia End-stage renal disease, on dialysis Rotator cuff surgery Bradycardia History of Present Illness History of Present Illness Patient seen and examined in the ICU. Patient in NAD. Patient has no new complaints. Blood sugars have been low, discussed with nurse, lantus adjusted to 15 units. HD (M-W-F). Neph, Cards, Pulm following. Vitals Vitals Vital Signs Date Time Temp Pulse Resp B/P (MAP) Pulse Ox O2 Delivery O2 Flow Rate FiO2 06/14/18 10:05 71 143/68 06/14/18 08:45 96 Nasal Cannula 2.0 06/14/18 08:00 97.3 20 97.3 Physical Exam General: Alert, Oriented X3, Cooperative, No acute distress Heart: Regular rate, No murmurs Lungs: Clear Abdomen: Normal bowel sounds, No tenderness Extremities: No clubbing, No cyanosis, No edema Skin: No rashes, No significant lesion Labs LABS Laboratory Tests Test 06/13/18 17:55 06/13/18 21:33 06/14/18 04:34 06/14/18 04:40 Glucose (Fingerstick) 101 mg/dL (70-99) 233 mg/dL (70-99) 31 mg/dL (70-99) White Blood Count 9.9 x10^3/uL (4.0-11.0) Red Blood Count 3.09 x10^6/uL (3.50-5.40) Hemoglobin 9.6 g/dL (12.0-15.5) Hematocrit 31.0 % (36.0-47.0) Mean Corpuscular Volume 100 fL (79-100) Mean Corpuscular Hemoglobin 31 pg (25-35) Mean Corpuscular Hemoglobin Concent 31 g/dL (31-37) Red Cell Distribution Width 15.3 % (11.5-14.5) Platelet Count 193 x10^3/uL (140-400) Neutrophils (%) (Auto) 86 % (31-73) Lymphocytes (%) (Auto) 2 % (24-48) Monocytes (%) (Auto) 11 % (0-9) Eosinophils (%) (Auto) 0 % (0-3) Basophils (%) (Auto) 0 % (0-3) Neutrophils # (Auto) 8.5 x10^3uL (1.8-7.7) Lymphocytes # (Auto) 0.2 x10^3/uL (1.0-4.8) Monocytes # (Auto) 1.1 x10^3/uL (0.0-1.1) Eosinophils # (Auto) 0.0 x10^3/uL (0.0-0.7) Basophils # (Auto) 0.0 x10^3/uL (0.0-0.2) Sodium Level 141 mmol/L (136-145) Potassium Level 3.8 mmol/L (3.5-5.1) Chloride Level 103 mmol/L (98-107) Carbon Dioxide Level 32 mmol/L (21-32) Anion Gap 6 (6-14) Blood Urea Nitrogen 26 mg/dL (7-20) Creatinine 4.5 mg/dL (0.6-1.0) Estimated GFR (Cockcroft-Gault) 11.6 Glucose Level 91 mg/dL (70-99) Calcium Level 7.0 mg/dL (8.5-10.1) Test 06/14/18 04:45 06/14/18 05:45 06/14/18 06:05 06/14/18 06:39 Glucose (Fingerstick) 97 mg/dL (70-99) 53 mg/dL (70-99) 85 mg/dL (70-99) 91 mg/dL (70-99) Test 06/14/18 09:30 06/14/18 10:10 06/14/18 11:45 Glucose (Fingerstick) 60 mg/dL (70-99) 81 mg/dL (70-99) 74 mg/dL (70-99) Review of Systems Review of Systems Denies abdominal pain Denies nausea Denies vomiting Assessment and Plan Assessmemt and Plan Assessment: Abdominal aortic aneurysm s/p endograft on 06/12 Vasculopathy CAD s/p cardiac cath with stents CHF COPD Diabetes Hypertension, Hyperlipidemia End-stage renal disease, on dialysis Rotator cuff surgery Bradycardia Plan: Discharge disposition pending, hope to discharge tomorrow Decreased lantus to 15 units d/t hypoglycemia Follow up with Cardiology outpatient Appreciate subspecialty input Continue HD MWF Recheck labs in the morning Comment Review of Relevant I have reviewed the following items mykel (where applicable) has been applied. Labs Laboratory Tests Test 06/12/18 12:51 06/12/18 23:05 06/13/18 07:40 06/13/18 09:03 Glucose (Fingerstick) 77 mg/dL (70-99) 82 mg/dL (70-99) 74 mg/dL (70-99) White Blood Count 9.6 x10^3/uL (4.0-11.0) Red Blood Count 3.11 x10^6/uL (3.50-5.40) Hemoglobin 9.9 g/dL (12.0-15.5) Hematocrit 31.2 % (36.0-47.0) Mean Corpuscular Volume 100 fL (79-100) Mean Corpuscular Hemoglobin 32 pg (25-35) Mean Corpuscular Hemoglobin Concent 32 g/dL (31-37) Red Cell Distribution Width 15.5 % (11.5-14.5) Platelet Count 205 x10^3/uL (140-400) Neutrophils (%) (Auto) 85 % (31-73) Lymphocytes (%) (Auto) 4 % (24-48) Monocytes (%) (Auto) 11 % (0-9) Eosinophils (%) (Auto) 0 % (0-3) Basophils (%) (Auto) 0 % (0-3) Neutrophils # (Auto) 8.1 x10^3uL (1.8-7.7) Lymphocytes # (Auto) 0.4 x10^3/uL (1.0-4.8) Monocytes # (Auto) 1.0 x10^3/uL (0.0-1.1) Eosinophils # (Auto) 0.0 x10^3/uL (0.0-0.7) Basophils # (Auto) 0.0 x10^3/uL (0.0-0.2) Segmented Neutrophils % 80 % (35-66) Band Neutrophils % 2 % (0-9) Lymphocytes % 12 % (24-48) Monocytes % 6 % (0-10) Platelet Estimate Adequate (ADEQUATE) Large Platelets Present Anisocytosis Slight Sodium Level 141 mmol/L (136-145) Potassium Level 5.3 mmol/L (3.5-5.1) Chloride Level 103 mmol/L (98-107) Carbon Dioxide Level 30 mmol/L (21-32) Anion Gap 8 (6-14) Blood Urea Nitrogen 43 mg/dL (7-20) Creatinine 6.5 mg/dL (0.6-1.0) Estimated GFR (Cockcroft-Gault) 7.6 Glucose Level 49 mg/dL (70-99) Calcium Level 6.9 mg/dL (8.5-10.1) Test 06/13/18 11:19 06/13/18 17:55 06/13/18 21:33 06/14/18 04:34 Glucose (Fingerstick) 156 mg/dL (70-99) 101 mg/dL (70-99) 233 mg/dL (70-99) 31 mg/dL (70-99) Test 06/14/18 04:40 06/14/18 04:45 06/14/18 05:45 06/14/18 06:05 White Blood Count 9.9 x10^3/uL (4.0-11.0) Red Blood Count 3.09 x10^6/uL (3.50-5.40) Hemoglobin 9.6 g/dL (12.0-15.5) Hematocrit 31.0 % (36.0-47.0) Mean Corpuscular Volume 100 fL (79-100) Mean Corpuscular Hemoglobin 31 pg (25-35) Mean Corpuscular Hemoglobin Concent 31 g/dL (31-37) Red Cell Distribution Width 15.3 % (11.5-14.5) Platelet Count 193 x10^3/uL (140-400) Neutrophils (%) (Auto) 86 % (31-73) Lymphocytes (%) (Auto) 2 % (24-48) Monocytes (%) (Auto) 11 % (0-9) Eosinophils (%) (Auto) 0 % (0-3) Basophils (%) (Auto) 0 % (0-3) Neutrophils # (Auto) 8.5 x10^3uL (1.8-7.7) Lymphocytes # (Auto) 0.2 x10^3/uL (1.0-4.8) Monocytes # (Auto) 1.1 x10^3/uL (0.0-1.1) Eosinophils # (Auto) 0.0 x10^3/uL (0.0-0.7) Basophils # (Auto) 0.0 x10^3/uL (0.0-0.2) Sodium Level 141 mmol/L (136-145) Potassium Level 3.8 mmol/L (3.5-5.1) Chloride Level 103 mmol/L (98-107) Carbon Dioxide Level 32 mmol/L (21-32) Anion Gap 6 (6-14) Blood Urea Nitrogen 26 mg/dL (7-20) Creatinine 4.5 mg/dL (0.6-1.0) Estimated GFR (Cockcroft-Gault) 11.6 Glucose Level 91 mg/dL (70-99) Calcium Level 7.0 mg/dL (8.5-10.1) Glucose (Fingerstick) 97 mg/dL (70-99) 53 mg/dL (70-99) 85 mg/dL (70-99) Test 06/14/18 06:39 06/14/18 09:30 06/14/18 10:10 06/14/18 11:45 Glucose (Fingerstick) 91 mg/dL (70-99) 60 mg/dL (70-99) 81 mg/dL (70-99) 74 mg/dL (70-99) Laboratory Tests Test 06/13/18 17:55 06/13/18 21:33 06/14/18 04:34 06/14/18 04:40 Glucose (Fingerstick) 101 mg/dL (70-99) 233 mg/dL (70-99) 31 mg/dL (70-99) White Blood Count 9.9 x10^3/uL (4.0-11.0) Red Blood Count 3.09 x10^6/uL (3.50-5.40) Hemoglobin 9.6 g/dL (12.0-15.5) Hematocrit 31.0 % (36.0-47.0) Mean Corpuscular Volume 100 fL (79-100) Mean Corpuscular Hemoglobin 31 pg (25-35) Mean Corpuscular Hemoglobin Concent 31 g/dL (31-37) Red Cell Distribution Width 15.3 % (11.5-14.5) Platelet Count 193 x10^3/uL (140-400) Neutrophils (%) (Auto) 86 % (31-73) Lymphocytes (%) (Auto) 2 % (24-48) Monocytes (%) (Auto) 11 % (0-9) Eosinophils (%) (Auto) 0 % (0-3) Basophils (%) (Auto) 0 % (0-3) Neutrophils # (Auto) 8.5 x10^3uL (1.8-7.7) Lymphocytes # (Auto) 0.2 x10^3/uL (1.0-4.8) Monocytes # (Auto) 1.1 x10^3/uL (0.0-1.1) Eosinophils # (Auto) 0.0 x10^3/uL (0.0-0.7) Basophils # (Auto) 0.0 x10^3/uL (0.0-0.2) Sodium Level 141 mmol/L (136-145) Potassium Level 3.8 mmol/L (3.5-5.1) Chloride Level 103 mmol/L (98-107) Carbon Dioxide Level 32 mmol/L (21-32) Anion Gap 6 (6-14) Blood Urea Nitrogen 26 mg/dL (7-20) Creatinine 4.5 mg/dL (0.6-1.0) Estimated GFR (Cockcroft-Gault) 11.6 Glucose Level 91 mg/dL (70-99) Calcium Level 7.0 mg/dL (8.5-10.1) Test 06/14/18 04:45 06/14/18 05:45 06/14/18 06:05 06/14/18 06:39 Glucose (Fingerstick) 97 mg/dL (70-99) 53 mg/dL (70-99) 85 mg/dL (70-99) 91 mg/dL (70-99) Test 06/14/18 09:30 06/14/18 10:10 06/14/18 11:45 Glucose (Fingerstick) 60 mg/dL (70-99) 81 mg/dL (70-99) 74 mg/dL (70-99) Medications Current Medications Sodium Chloride 1,000 ml @ 100 mls/hr Q10H IV Last administered on 06/07/18at 19:56; Start 06/07/18 at 19:18; Stop 06/08/18 at 05:17; Status DC Ondansetron HCl (Zofran) 4 mg PRN Q8HRS PRN IV NAUSEA/VOMITING 1ST CHOICE; Start 06/07/18 at 21:00; Stop 06/08/18 at 20:59; Status DC Morphine Sulfate (Morphine Sulfate) 2 mg PRN Q2HR PRN IV SEVERE PAIN; Start at 21:00; Stop 06/08/18 at 06:39; Status DC Morphine Sulfate (Morphine Sulfate) 2 mg PRN Q2HR PRN IV SEVERE PAIN; Start 06/08/18 at 06:39; Stop 06/08/18 at 20:59; Status DC Amiodarone HCl (Cordarone) 200 mg DAILY PO Last administered on 06/14/18 10:00 ; Start 06/08/18 at 12:00 Apixaban (Eliquis) 5 mg BID PO ; Start 06/08/18 at 12:00; Stop 06/08/18 at 15:30; Status DC Aspirin (Hung Aspirin) 325 mg DAILY PO Last administered on 06/14/18 10:00; Start 06/08/18 at 12:00 Atorvastatin Calcium (Lipitor) 40 mg HS PO Last administered on 06/13/18at 21:30 ; Start 06/08/18 at 21:00 Furosemide (Lasix) 40 mg DAILY PO Last administered on 06/14/18 09:59; Start at 12:00 Acetaminophen/ Hydrocodone Bitart (Lortab 5/325) 1 tab PRN Q6HRS PRN PO back pain Last administered on 06/13/18 16:07; Start 06/08/18 at 11:30 Insulin Glargine (Lantus) 30 units QHS SQ Last administered on 06/13/18at 21:35; Start 06/08/18 at 21:00 Lisinopril (Prinivil) 20 mg DAILY PO Last administered on 06/10/18 09:08; Start 06/08/18 at 12:00 Metoprolol Succinate (Toprol Xl) 100 mg DAILY PO Last administered on 06/10/18 12:07; Start 06/08/18 at 12:00 Non-Formulary Medication (Budesonide/ Formoterol Fumarate (Symbicort 160-4.5 Mcg Inhaler)) 2 puff BID IH ; Start 06/08/18 at 21:00; Status UNV Diltiazem HCl (Cardizem 24hr Cd) 180 mg DAILY PO Last administered on 06/14/18at 10:05; Start 06/08/18 at 12:00 Hydroxyzine Pamoate (Vistaril) 50 mg QMWF PO Last administered on 06/13/18at 18: 00; Start 06/08/18 at 16:00 Non-Formulary Medication ([Albuterol Sulfate] ) 2.5 mg PRN Q4HRS PRN NEB SHORTNESS OF BREATH; Start 06/08/18 at 11:30; Status UNV Budesonide (Pulmicort) 0.5 mg RTBID NEB Last administered on 06/14/18at 08:44; Start 06/08/18 at 12:00 Albuterol Sulfate (Ventolin Neb Soln) 2.5 mg RTQID NEB Last administered on 06/14at 08:44; Start 06/08/18 at 12:00 Albuterol Sulfate (Ventolin Neb Soln) 2.5 mg PRN Q4HRS PRN NEB SHORTNESS OF BREATH; Start 06/08/18 at 11:30 Sodium Chloride 1,000 ml @ 1,000 mls/hr Q1H PRN IV hypotension; Start 06/08/18 at 12:22; Stop 06/08/18 at 18:21; Status DC Diphenhydramine HCl (Benadryl) 25 mg 1X PRN PRN IV ITCHING; Start 06/08/18 at 12 :30; Stop 06/09/18 at 12:29; Status DC Diphenhydramine HCl (Benadryl) 25 mg 1X PRN PRN IV ITCHING; Start 06/08/18 at 12 :30; Stop 06/09/18 at 12:29; Status DC Sodium Chloride 1,000 ml @ 400 mls/hr Q2H30M PRN IV PATENCY; Start 06/08/18 at 12:22; Stop 06/09/18 at 00:21; Status DC Info (PHARMACY MONITORING -- do not chart) 1 each PRN DAILY PRN MC SEE COMMENTS ; Start 06/08/18 at 12:30; Status Cancel Prednisone (Prednisone) 20 mg 1X ONCE PO Last administered on 06/08/18at 18:04; Start 06/08/18 at 18:00; Stop 06/08/18 at 18:01; Status DC Prednisone (Prednisone) 20 mg 1X ONCE PO Last administered on 06/08/18at 21:12; Start 06/08/18 at 22:00; Stop 06/08/18 at 22:01; Status DC Prednisone (Prednisone) 20 mg 1X ONCE PO Last administered on 06/09/18at 06:15; Start 06/09/18 at 06:00; Stop 06/09/18 at 06:01; Status DC Diphenhydramine HCl (Benadryl) 50 mg PRN 1X PRN PO COMMENTS Last administered on 06/09/18at 08:04; Start 06/08/18 at 14:45; Stop 06/09/18 at 14:44; Status DC Enoxaparin Sodium (Lovenox Per Pharmacy Treatment Dosing) 1 each PRN DAILY PRN MC SEE COMMENTS; Start 06/08/18 at 15:30; Status Cancel Iohexol (Omnipaque 350 Mg/ml) 90 ml 1X ONCE IV Last administered on 06/09/18at 08:56; Start 06/09/18 at 09:00; Stop 06/09/18 at 09:01; Status DC Info (CONTRAST GIVEN -- Rx MONITORING) 1 each PRN DAILY PRN MC SEE COMMENTS; Start 06/09/18 at 09:00; Stop 06/11/18 at 08:59; Status DC Diclofenac Sodium (Voltaren) 1 evgeny BID TP Last administered on 06/14/18at 09:59; Start 06/09/18 at 13:30 Heparin Sodium/ Dextrose 500 ml @ 0 mls/hr CONT PRN IV SEE I/O RECORD Last administered on 06/10/18at 12:14; Start 06/10/18 at 11:45; Stop 06/11/18 at 02:46; Status DC Heparin Sodium (Porcine) (Heparin Sodium) 1,700 unit PRN Q6HRS PRN IV FOR UFH LEVEL LESS THAN 0.2; Start 06/10/18 at 11:45; Stop 06/12/18 at 12:24; Status DC Info (Anti-Coagulation Monitoring By Pharmacy) 1 each PRN DAILY PRN MC SEE COMMENTS Last administered on 06/11/18at 16:33; Start 06/10/18 at 11:45; Stop at 11:01; Status DC Sodium Chloride 250 ml @ 500 mls/hr 1X ONCE IV Last administered on 06/11/18at 03:00; Start 06/11/18 at 03:00; Stop 06/11/18 at 03:29; Status DC Dopamine HCl/ Dextrose 250 ml @ 5.19 mls/hr CONT PRN IV SEE I/O RECORD; Start 06/11/18 at 03:00; Stop 06/12/18 at 12:24; Status DC Ondansetron HCl (Zofran) 4 mg PRN Q6HRS PRN IV NAUSEA/VOMITING 1ST CHOICE Last administered on 06/11/18at 04:51; Start 06/11/18 at 03:15 Morphine Sulfate (Morphine Sulfate) 2 mg PRN Q4HRS PRN IV SEVERE PAIN; Start at 03:15; Stop 06/11/18 at 10:41; Status DC Sodium Chloride 250 ml @ 500 mls/hr 1X ONCE IV Last administered on 06/11/18at 03:30; Start 06/11/18 at 03:30; Stop 06/11/18 at 03:59; Status DC Iohexol (Omnipaque 350 Mg/ml) 90 ml 1X ONCE IV Last administered on 06/11/18at 04:02; Start 06/11/18 at 04:00; Stop 06/11/18 at 04:01; Status DC Diphenhydramine HCl (Benadryl) 25 mg 1X ONCE IV Last administered on 06/11/18at 04:15; Start 06/11/18 at 04:00; Stop 06/11/18 at 04:01; Status DC Info (CONTRAST GIVEN -- Rx MONITORING) 1 each PRN DAILY PRN MC SEE COMMENTS; Start 06/11/18 at 03:30; Stop 06/12/18 at 15:36; Status DC Heparin Sodium/ Dextrose 500 ml @ 0 mls/hr CONT PRN IV SEE I/O RECORD Last administered on 06/11/18at 05:01; Start 06/11/18 at 04:30; Stop 06/12/18 at 12:24; Status DC Morphine Sulfate (Morphine Sulfate) 2 mg PRN Q2HR PRN IV SEVERE PAIN Last administered on 06/11/18at 04:51; Start 06/11/18 at 04:30; Stop 06/12/18 at 12:24; Status DC Morphine Sulfate (Morphine Sulfate) 1 mg PRN Q2HR PRN IV MODERATE PAIN; Start 06/11/18 at 04:30; Stop 06/12/18 at 12:24; Status DC Iodixanol (Visipaque 320) 100 ml STK-MED ONCE .ROUTE ; Start 06/11/18 at 10:44; Stop 06/11/18 at 10:45; Status DC Lidocaine HCl (Xylocaine-Mpf 1% 2ml Vial) 2 ml STK-MED ONCE .ROUTE ; Start at 10:44; Stop 06/11/18 at 10:45; Status DC Heparin Sodium/ Sodium Chloride 1,000 ml @ As Directed STK-MED ONCE .ROUTE ; Start 06/11/18 at 10:45; Stop 06/11/18 at 10:46; Status DC Heparin Sodium (Porcine) 5000 unit/Sodium Chloride 505 ml @ 505 mls/hr 1X ONCE IRR Last administered on 06/12/18at 14:45; Start 06/12/18 at 06:00; Stop 06/12 at 06:59; Status DC Cefazolin Sodium 1 gm/Sodium Chloride 500 ml @ 500 mls/hr 1X ONCE IRR Last administered on 06/12/18at 14:45; Start 06/12/18 at 06:00; Stop 06/12/18 at 06:59; Status DC Lidocaine HCl (Lidocaine 1% 20ml Vial) 20 ml STK-MED ONCE .ROUTE ; Start at 10:59; Stop 06/11/18 at 11:00; Status DC Methylprednisolone Sodium Succinate (SOLU-Medrol 125MG VIAL) 125 mg STK-MED ONCE .ROUTE ; Start 06/11/18 at 11:06; Stop 06/11/18 at 11:07; Status DC Fentanyl Citrate (Fentanyl 2ml Vial) 100 mcg STK-MED ONCE .ROUTE ; Start at 11:06; Stop 06/11/18 at 11:07; Status DC Midazolam HCl (Versed) 2 mg STK-MED ONCE .ROUTE ; Start 06/11/18 at 11:06; Stop 06/11/18 at 11:07; Status DC Famotidine (Pepcid Vial) 20 mg STK-MED ONCE .ROUTE ; Start 06/11/18 at 11:06; Stop 06/11/18 at 11:07; Status DC Diphenhydramine HCl (Benadryl) 50 mg STK-MED ONCE .ROUTE ; Start 06/11/18 at 11: 06; Stop 06/11/18 at 11:07; Status DC Heparin Sodium/ Sodium Chloride (HEPARIN for ARTERIAL LINE FLUSH) 1,000 unit 1X ONCE IART Last administered on 06/11/18 11:42; Start 06/11/18 at 11:45; Stop 06/11/18 at 11:46; Status DC Iodixanol (Visipaque 320) 104 ml 1X ONCE IART Last administered on 06/11/18 11 :42; Start 06/11/18 at 11:45; Stop 06/11/18 at 11:46; Status DC Lidocaine HCl (Lidocaine 1% 20ml Vial) 15 ml 1X ONCE INJ Last administered on 06/11/18 11:43; Start 06/11/18 at 11:45; Stop 06/11/18 at 11:46; Status DC Diphenhydramine HCl (Benadryl) 25 mg 1X ONCE IVP Last administered on at 11:43; Start 06/11/18 at 11:45; Stop 06/11/18 at 11:46; Status DC Methylprednisolone Sodium Succinate (SOLU-Medrol 125MG VIAL) 125 mg 1X ONCE IV Last administered on 06/11/18 11:43; Start 06/11/18 at 11:45; Stop 06/11/18 at 11:46; Status DC Famotidine (Pepcid Vial) 20 mg 1X ONCE IVP Last administered on 06/11/18 11:18 ; Start 06/11/18 at 11:45; Stop 06/11/18 at 11:46; Status DC Sodium Chloride (Normal Saline Flush) 3 ml QSHIFT PRN IV AFTER MEDS AND BLOOD DRAWS; Start 06/11/18 at 12:45 Sodium Chloride 1,000 ml @ 1,000 mls/hr Q1H PRN IV hypotension; Start 06/11/18 at 13:48; Stop 06/11/18 at 19:47; Status DC Albumin Human 200 ml @ 200 mls/hr 1X PRN PRN IV Hypotension; Start 06/11/18 at 14:00; Stop 06/11/18 at 19:59; Status DC Sodium Chloride 1,000 ml @ 400 mls/hr Q2H30M PRN IV PATENCY; Start 06/11/18 at 13:48; Stop 06/12/18 at 01:47; Status DC Info (PHARMACY MONITORING -- do not chart) 1 each PRN DAILY PRN MC SEE COMMENTS ; Start 06/11/18 at 14:00; Stop 06/11/18 at 14:00; Status DC Info (PHARMACY MONITORING -- do not chart) 1 each PRN DAILY PRN MC SEE COMMENTS ; Start 06/11/18 at 14:00; Stop 06/11/18 at 14:00; Status DC Dextrose (Dextrose 50%-Water Syringe) 25 gm STK-MED ONCE IV ; Start 06/11/18 at 14:08; Stop 06/11/18 at 14:12; Status DC Prednisone (Prednisone) 20 mg 1X ONCE PO Last administered on 06/11/18at 23:35; Start 06/11/18 at 21:00; Stop 06/11/18 at 21:01; Status DC Prednisone (Prednisone) 20 mg 1X ONCE PO ; Start 06/12/18 at 09:00; Stop at 09:01; Status DC Cefazolin Sodium/ Dextrose 50 ml @ 100 mls/hr 1X ONCE IV ; Start 06/12/18 at 12 :00; Stop 06/12/18 at 12:29; Status DC Ondansetron HCl (Zofran) 4 mg PRN Q6HRS PRN IV NAUSEA/VOMITING; Start 06/12/18 at 07:00; Stop 06/13/18 at 06:59; Status DC Fentanyl Citrate (Fentanyl 2ml Vial) 25 mcg PRN Q5MIN PRN IV MILD PAIN; Start 06/12/18 at 07:00; Stop 06/13/18 at 06:59; Status DC Fentanyl Citrate (Fentanyl 2ml Vial) 50 mcg PRN Q5MIN PRN IV MODERATE TO SEVERE PAIN; Start 06/12/18 at 07:00; Stop 06/13/18 at 06:59; Status DC Morphine Sulfate (Morphine Sulfate) 1 mg PRN Q10MIN PRN IV SEVERE PAIN; Start 06/12/18 at 07:00; Stop 06/12/18 at 12:24; Status DC Ringer's Solution 1,000 ml @ 30 mls/hr Q24H IV Last administered on 06/12/18at 07:00; Start 06/12/18 at 07:00; Stop 06/12/18 at 18:59; Status DC Lidocaine HCl (Xylocaine-Mpf 1% 2ml Vial) 2 ml PRN 1X PRN ID IV START; Start at 07:00; Stop 06/13/18 at 06:59; Status DC Hydromorphone HCl (Dilaudid) 0.5 mg PRN Q10MIN PRN IV SEV PAIN, Second choice; Start 06/12/18 at 07:00; Stop 06/13/18 at 06:59; Status DC Prochlorperazine Edisylate (Compazine) 5 mg PACU PRN PRN IV NAUSEA, MRX1; Start 06/12/18 at 07:00; Stop 06/13/18 at 06:59; Status DC Dextrose (Dextrose 50%-Water Syringe) 25 gm STK-MED ONCE IV ; Start 06/11/18 at 14:00; Stop 06/12/18 at 08:16; Status DC Heparin Sodium (Porcine) (Heparin Sodium) 10,000 unit STK-MED ONCE .ROUTE ; Start 06/12/18 at 12:08; Stop 06/12/18 at 12:09; Status DC Cellulose (Surgicel Fibrillar 1x2) 1 each STK-MED ONCE .ROUTE ; Start 06/12/18 at 12:08; Stop 06/12/18 at 12:09; Status DC Protamine Sulfate (Protamine) 50 mg STK-MED ONCE IV ; Start 06/12/18 at 12:08; Stop 06/12/18 at 12:09; Status DC Propofol 20 ml @ As Directed STK-MED ONCE IV ; Start 06/12/18 at 12:17; Stop 06/12 at 12:18; Status DC Dexamethasone Sodium Phosphate (Decadron) 20 mg STK-MED ONCE .ROUTE ; Start 06/12 at 12:17; Stop 06/12/18 at 12:18; Status DC Famotidine (Pepcid Vial) 20 mg STK-MED ONCE .ROUTE ; Start 06/12/18 at 12:17; Stop 06/12/18 at 12:18; Status DC Lidocaine HCl (Lidocaine Pf 2% Vial) 5 ml STK-MED ONCE .ROUTE ; Start 06/12/18 at 12:17; Stop 06/12/18 at 12:18; Status DC Ondansetron HCl (Zofran) 4 mg STK-MED ONCE .ROUTE ; Start 06/12/18 at 12:17; Stop 06/12/18 at 12:18; Status DC Etomidate (Amidate) 20 mg STK-MED ONCE IV ; Start 06/12/18 at 12:17; Stop at 12:18; Status DC Sodium Chloride (SODIUM CHLORIDE 20ml) 20 ml STK-MED ONCE IJ ; Start 06/12/18 at 12:17; Stop 06/12/18 at 12:18; Status DC Ephedrine Sulfate (Akovaz) 50 mg STK-MED ONCE .ROUTE ; Start 06/12/18 at 12:17; Stop 06/12/18 at 12:18; Status DC Vecuronium [place] (Norcuron Bolus) 10 mg STK-MED ONCE IV ; Start 06/12/18 at 12: 17; Stop 06/12/18 at 12:18; Status DC Fentanyl Citrate (Fentanyl 2ml Vial) 100 mcg STK-MED ONCE .ROUTE ; Start at 12:17; Stop 06/12/18 at 12:18; Status DC Hydromorphone HCl (Dilaudid) 2 mg STK-MED ONCE .ROUTE ; Start 06/12/18 at 12:18; Stop 06/12/18 at 12:19; Status DC Vasopressin (Vasostrict) 20 unit STK-MED ONCE .ROUTE ; Start 06/12/18 at 12:18; Stop 06/12/18 at 12:19; Status Cancel Albumin Human 0 ml @ As Directed STK-MED ONCE IV ; Start 06/12/18 at 12:19; Stop 06/12/18 at 12:20; Status DC Cisatracurium Besylate (Nimbex) 20 mg STK-MED ONCE IV ; Start 06/12/18 at 12:20; Stop 06/12/18 at 12:21; Status DC Midazolam HCl (Versed) 2 mg STK-MED ONCE .ROUTE ; Start 06/12/18 at 12:30; Stop 06/12/18 at 12:31; Status DC Iodixanol (Visipaque 320) 100 ml STK-MED ONCE .ROUTE ; Start 06/12/18 at 12:55; Stop 06/12/18 at 12:56; Status DC Iodixanol (Visipaque 320) 50 ml STK-MED ONCE .ROUTE ; Start 06/12/18 at 12:56; Stop 06/12/18 at 12:57; Status DC Heparin Sodium/ Sodium Chloride 1,000 ml @ As Directed STK-MED ONCE .ROUTE ; Start 06/12/18 at 12:56; Stop 06/12/18 at 12:57; Status DC Sodium Chloride (SODIUM CHLORIDE 20ml) 20 ml STK-MED ONCE IJ ; Start 06/12/18 at 14:29; Stop 06/12/18 at 14:30; Status DC Cefazolin Sodium/ Dextrose 50 ml @ As Directed STK-MED ONCE IV ; Start 06/12/18 at 14:40; Stop 06/12/18 at 14:41; Status DC Bupivacaine HCl/ Epinephrine Bitart (Sensorcaine-Epi 0.25%-1:726368 Mpf) 30 ml STK-MED ONCE .ROUTE Last administered on 06/12/18at 14:45; Start 06/12/18 at 14:41 ; Stop 06/12/18 at 14:42; Status DC Heparin Sodium (Porcine) (Heparin Sodium) 10,000 unit STK-MED ONCE .ROUTE ; Start 06/12/18 at 14:59; Stop 06/12/18 at 15:00; Status DC Heparin Sodium/ Sodium Chloride 500 ml @ As Directed STK-MED ONCE .ROUTE ; Start 06/12/18 at 15:00; Stop 06/12/18 at 15:01; Status DC Iodixanol (Visipaque 320) 100 ml STK-MED ONCE .ROUTE ; Start 06/12/18 at 15:13; Stop 06/12/18 at 15:14; Status DC Iodixanol (Visipaque 320) 250 ml 1X ONCE IV Last administered on 06/12/18at 15: 56; Start 06/12/18 at 15:30; Stop 06/12/18 at 15:36; Status DC Glycopyrrolate (Robinul) 1 mg STK-MED ONCE .ROUTE ; Start 06/12/18 at 15:33; Stop 06/12/18 at 15:34; Status DC Info (CONTRAST GIVEN -- Rx MONITORING) 1 each PRN DAILY PRN MC SEE COMMENTS; Start 06/12/18 at 15:45; Stop 06/14/18 at 15:44 Sevoflurane (Ultane) 90 ml STK-MED ONCE IH ; Start 06/12/18 at 15:53; Stop at 15:54; Status DC Throat Lozenges (Cepacol Sore Throat Lozenge) 1 fausto PRN Q2HRS PRN PO SORE THROAT; Start 06/13/18 at 11:15 Sodium Chloride 1,000 ml @ 1,000 mls/hr Q1H PRN IV hypotension; Start 06/13/18 at 11:57; Stop 06/13/18 at 17:56; Status DC Sodium Chloride 1,000 ml @ 400 mls/hr Q2H30M PRN IV PATENCY; Start 06/13/18 at 11:57; Stop 06/13/18 at 23:56; Status DC Info (PHARMACY MONITORING -- do not chart) 1 each PRN DAILY PRN MC SEE COMMENTS ; Start 06/13/18 at 12:00 Info (PHARMACY MONITORING -- do not chart) 1 each PRN DAILY PRN MC SEE COMMENTS ; Start 06/13/18 at 12:00; Status UNV Lidocaine HCl (Xylocaine-Mpf 1% 2ml Vial) 2 ml 1X ONCE INJ Last administered on 06/13/18at 12:16; Start 06/13/18 at 12:00; Stop 06/13/18 at 12:05; Status DC Dextrose (Dextrose 50%-Water Syringe) 25 gm STK-MED ONCE IV ; Start 06/14/18 at 04:37; Stop 06/14/18 at 04:38; Status DC Dextrose (Dextrose 50%-Water Syringe) 12.5 gm PRN Q15MIN PRN IV SEE COMMENTS Last administered on 06/14/18at 05:47; Start 06/14/18 at 05:15 Active Scripts Active Amiodarone Hcl 200 Mg Tablet 200 Mg PO DAILY MDD 1 Eliquis (Apixaban) 5 Mg Tablet 5 Mg PO BID MDD ` [Albuterol Sulfate] 2.5 MG/3 ML Nebu 2.5 Mg NEB PRN Q4HRS PRN Reported Lipitor (Atorvastatin Calcium) 40 Mg Tablet 40 Mg PO HS Hydrocodone-Acetamin 5-325 mg (Hydrocodone/Acetaminophen) 1 Each Tablet 1 Each PO PRN Q6HRS PRN Furosemide 40 Mg Tablet 40 Mg PO DAILY Symbicort 160-4.5 Mcg Inhaler (Budesonide/Formoterol Fumarate) 10.2 Gm Hfa.aer.ad 2 Puff IH BID Toprol Xl (Metoprolol Succinate) 100 Mg Tab.er.24h 100 Mg PO DAILY Proair Hfa Inhaler (Albuterol Sulfate) 8.5 Gm Hfa.aer.ad 1 Puff INH PRN Q6HRS PRN Marina-Jayme Tablet (Folic Acid/Vitamin B Comp W-C) 0.8 Mg Tablet 0.8 Mg PO DAILY Hydroxyzine Hcl 25 Mg Tablet 50 Mg PO QMWF Lisinopril 20 Mg Tablet 1 Tab PO DAILY Lantus Solostar (Insulin Glargine,Hum.rec.anlog) 100 Unit/1 Ml Insuln.pen 30 Unit SQ QHS Aspirin 325 Mg Tablet 1 Tab PO DAILY Vitals/I & O Vital Sign - Last 24 Hours 06/13/18 06/13/18 06/13/18 06/13/18 12:00 12:35 16:00 16:07 Temp 98.5 97.9 98.5 97.9 Pulse 74 84 Resp 18 22 B/P (MAP) 133/67 (89) 97/53 (68) Pulse Ox 96 98 98 98 O2 Delivery Nasal Cannula Nasal Cannula Nasal Cannula Nasal Cannula O2 Flow Rate 3.0 2.0 3.0 2.0 06/13/18 06/13/18 06/13/18 06/13/18 17:00 17:30 18:00 18:00 Pulse 76 85 Resp 22 B/P (MAP) 136/48 (77) 138/48 136/48 Pulse Ox 100 98 O2 Delivery Nasal Cannula Nasal Cannula O2 Flow Rate 3.0 2.0 06/13/18 06/13/18 06/13/18 06/13/18 20:00 20:00 20:14 20:14 Temp 98.2 98.2 Pulse 80 Resp 20 B/P (MAP) 142/57 (85) Pulse Ox 97 96 96 O2 Delivery Room Air Nasal Cannula Nasal Cannula Nasal Cannula O2 Flow Rate 3.0 2.0 2.0 06/14/18 06/14/18 06/14/1806/14/19 00:00 04:00 08:00 08:00 Temp 98.5 98.9 97.3 98.5 98.9 97.3 Pulse 68 58 58 Resp 14 16 20 B/P (MAP) 124/42 (69) 153/61 (91) 143/68 (93) Pulse Ox 100 99 96 O2 Delivery Nasal Cannula Nasal Cannula Nasal Cannula Room Air O2 Flow Rate 3.0 3.0 3.0 06/14/18 06/14/18 06/14/18 08:45 10:00 10:05 Pulse 64 71 B/P (MAP) 143/68 143/68 Pulse Ox 96 O2 Delivery Nasal Cannula O2 Flow Rate 2.0 Intake and Output 06/13/18 06/13/18 06/14/18 15:00 23:00 07:00 Intake Total 270 ml 300 ml 0 ml Output Total 0 ml 0 ml 0 ml Balance 270 ml 300 ml 0 ml YULIA DE ANDA III DO Jun 14, 2018 11:52
[2018-06-14 12:00] VITALS: BP 136/58
--- NOTE | 2018-06-14 13:41 | PDOC ---
PROGRESS NOTES Subjective Subjective Patient seen and examined in her hospital room postop day 2 status post percutaneous repair of a large AAA Sitting up in a chair next to her hospital bed eating lunch, has no complaints. She denies any headache, shortness of breath, chest pain, abdominal pain, back pain. She denies any pain or paresthesias in the lower extremities. Overall she appears to be doing very well Objective Objective Vital Signs Date Time Temp Pulse Resp B/P (MAP) Pulse Ox O2 Delivery O2 Flow Rate FiO2 06/14/18 12:11 Nasal Cannula 2.0 06/14/18 12:00 98.4 69 18 136/58 (84) 100 98.4 Intake and Output 06/14/18 06:59 Intake Total 570 ml Output Total 0 ml Balance 570 ml Intake Oral 570 ml Output Urine Total 0 ml Physical Exam Physical Exam Chest clear Abdomen soft, nontender, nondistended no mass Bilateral femoral access sites soft, nontender, no ecchymosis, no hematoma Palpable popliteal pulses bilaterally Excellent Doppler signals dorsalis pedis bilaterally with normal motor function and sensation both feet Assessment Assessment Doing well status post percutaneous endovascular repair of a large AAA At its access site complications, no abdominal pain or other apparent Patient's procedure Plan Plan of Care From a vascular surgery standpoint she's doing quite well Home when medically ableshe tells me she's had some issues with her blood sugar. One-month follow-up with me with CT angiogram abdomen and pelvis Comment Review of Relevant I have reviewed the following items mykel (where applicable) has been applied. Labs Laboratory Tests Test 06/12/18 23:05 06/13/18 07:40 06/13/18 09:03 06/13/18 11:19 Glucose (Fingerstick) 82 mg/dL (70-99) 74 mg/dL (70-99) 156 mg/dL (70-99) White Blood Count 9.6 x10^3/uL (4.0-11.0) Red Blood Count 3.11 x10^6/uL (3.50-5.40) Hemoglobin 9.9 g/dL (12.0-15.5) Hematocrit 31.2 % (36.0-47.0) Mean Corpuscular Volume 100 fL (79-100) Mean Corpuscular Hemoglobin 32 pg (25-35) Mean Corpuscular Hemoglobin Concent 32 g/dL (31-37) Red Cell Distribution Width 15.5 % (11.5-14.5) Platelet Count 205 x10^3/uL (140-400) Neutrophils (%) (Auto) 85 % (31-73) Lymphocytes (%) (Auto) 4 % (24-48) Monocytes (%) (Auto) 11 % (0-9) Eosinophils (%) (Auto) 0 % (0-3) Basophils (%) (Auto) 0 % (0-3) Neutrophils # (Auto) 8.1 x10^3uL (1.8-7.7) Lymphocytes # (Auto) 0.4 x10^3/uL (1.0-4.8) Monocytes # (Auto) 1.0 x10^3/uL (0.0-1.1) Eosinophils # (Auto) 0.0 x10^3/uL (0.0-0.7) Basophils # (Auto) 0.0 x10^3/uL (0.0-0.2) Segmented Neutrophils % 80 % (35-66) Band Neutrophils % 2 % (0-9) Lymphocytes % 12 % (24-48) Monocytes % 6 % (0-10) Platelet Estimate Adequate (ADEQUATE) Large Platelets Present Anisocytosis Slight Sodium Level 141 mmol/L (136-145) Potassium Level 5.3 mmol/L (3.5-5.1) Chloride Level 103 mmol/L (98-107) Carbon Dioxide Level 30 mmol/L (21-32) Anion Gap 8 (6-14) Blood Urea Nitrogen 43 mg/dL (7-20) Creatinine 6.5 mg/dL (0.6-1.0) Estimated GFR (Cockcroft-Gault) 7.6 Glucose Level 49 mg/dL (70-99) Calcium Level 6.9 mg/dL (8.5-10.1) Test 06/13/18 17:55 06/13/18 21:33 06/14/18 04:34 06/14/18 04:40 Glucose (Fingerstick) 101 mg/dL (70-99) 233 mg/dL (70-99) 31 mg/dL (70-99) White Blood Count 9.9 x10^3/uL (4.0-11.0) Red Blood Count 3.09 x10^6/uL (3.50-5.40) Hemoglobin 9.6 g/dL (12.0-15.5) Hematocrit 31.0 % (36.0-47.0) Mean Corpuscular Volume 100 fL (79-100) Mean Corpuscular Hemoglobin 31 pg (25-35) Mean Corpuscular Hemoglobin Concent 31 g/dL (31-37) Red Cell Distribution Width 15.3 % (11.5-14.5) Platelet Count 193 x10^3/uL (140-400) Neutrophils (%) (Auto) 86 % (31-73) Lymphocytes (%) (Auto) 2 % (24-48) Monocytes (%) (Auto) 11 % (0-9) Eosinophils (%) (Auto) 0 % (0-3) Basophils (%) (Auto) 0 % (0-3) Neutrophils # (Auto) 8.5 x10^3uL (1.8-7.7) Lymphocytes # (Auto) 0.2 x10^3/uL (1.0-4.8) Monocytes # (Auto) 1.1 x10^3/uL (0.0-1.1) Eosinophils # (Auto) 0.0 x10^3/uL (0.0-0.7) Basophils # (Auto) 0.0 x10^3/uL (0.0-0.2) Sodium Level 141 mmol/L (136-145) Potassium Level 3.8 mmol/L (3.5-5.1) Chloride Level 103 mmol/L (98-107) Carbon Dioxide Level 32 mmol/L (21-32) Anion Gap 6 (6-14) Blood Urea Nitrogen 26 mg/dL (7-20) Creatinine 4.5 mg/dL (0.6-1.0) Estimated GFR (Cockcroft-Gault) 11.6 Glucose Level 91 mg/dL (70-99) Calcium Level 7.0 mg/dL (8.5-10.1) Test 06/14/18 04:45 06/14/18 05:45 06/14/18 06:05 06/14/18 06:39 Glucose (Fingerstick) 97 mg/dL (70-99) 53 mg/dL (70-99) 85 mg/dL (70-99) 91 mg/dL (70-99) Test 06/14/18 09:30 06/14/18 10:10 06/14/18 11:45 Glucose (Fingerstick) 60 mg/dL (70-99) 81 mg/dL (70-99) 74 mg/dL (70-99) Laboratory Tests Test 06/13/18 17:55 06/13/18 21:33 06/14/18 04:34 06/14/18 04:40 Glucose (Fingerstick) 101 mg/dL (70-99) 233 mg/dL (70-99) 31 mg/dL (70-99) White Blood Count 9.9 x10^3/uL (4.0-11.0) Red Blood Count 3.09 x10^6/uL (3.50-5.40) Hemoglobin 9.6 g/dL (12.0-15.5) Hematocrit 31.0 % (36.0-47.0) Mean Corpuscular Volume 100 fL (79-100) Mean Corpuscular Hemoglobin 31 pg (25-35) Mean Corpuscular Hemoglobin Concent 31 g/dL (31-37) Red Cell Distribution Width 15.3 % (11.5-14.5) Platelet Count 193 x10^3/uL (140-400) Neutrophils (%) (Auto) 86 % (31-73) Lymphocytes (%) (Auto) 2 % (24-48) Monocytes (%) (Auto) 11 % (0-9) Eosinophils (%) (Auto) 0 % (0-3) Basophils (%) (Auto) 0 % (0-3) Neutrophils # (Auto) 8.5 x10^3uL (1.8-7.7) Lymphocytes # (Auto) 0.2 x10^3/uL (1.0-4.8) Monocytes # (Auto) 1.1 x10^3/uL (0.0-1.1) Eosinophils # (Auto) 0.0 x10^3/uL (0.0-0.7) Basophils # (Auto) 0.0 x10^3/uL (0.0-0.2) Sodium Level 141 mmol/L (136-145) Potassium Level 3.8 mmol/L (3.5-5.1) Chloride Level 103 mmol/L (98-107) Carbon Dioxide Level 32 mmol/L (21-32) Anion Gap 6 (6-14) Blood Urea Nitrogen 26 mg/dL (7-20) Creatinine 4.5 mg/dL (0.6-1.0) Estimated GFR (Cockcroft-Gault) 11.6 Glucose Level 91 mg/dL (70-99) Calcium Level 7.0 mg/dL (8.5-10.1) Test 06/14/18 04:45 06/14/18 05:45 06/14/18 06:05 06/14/18 06:39 Glucose (Fingerstick) 97 mg/dL (70-99) 53 mg/dL (70-99) 85 mg/dL (70-99) 91 mg/dL (70-99) Test 06/14/18 09:30 06/14/18 10:10 06/14/18 11:45 Glucose (Fingerstick) 60 mg/dL (70-99) 81 mg/dL (70-99) 74 mg/dL (70-99) Medications Current Medications Sodium Chloride 1,000 ml @ 100 mls/hr Q10H IV Last administered on 06/07/18at 19:56; Start 06/07/18 at 19:18; Stop 06/08/18 at 05:17; Status DC Ondansetron HCl (Zofran) 4 mg PRN Q8HRS PRN IV NAUSEA/VOMITING 1ST CHOICE; Start 06/07/18 at 21:00; Stop 06/08/18 at 20:59; Status DC Morphine Sulfate (Morphine Sulfate) 2 mg PRN Q2HR PRN IV SEVERE PAIN; Start at 21:00; Stop 06/08/18 at 06:39; Status DC Morphine Sulfate (Morphine Sulfate) 2 mg PRN Q2HR PRN IV SEVERE PAIN; Start 06/08/18 at 06:39; Stop 06/08/18 at 20:59; Status DC Amiodarone HCl (Cordarone) 200 mg DAILY PO Last administered on 06/14/18at 10:00 ; Start 06/08/18 at 12:00 Apixaban (Eliquis) 5 mg BID PO ; Start 06/08/18 at 12:00; Stop 06/08/18 at 15:30; Status DC Aspirin (Hung Aspirin) 325 mg DAILY PO Last administered on 3/7/19at 10:00; Start 06/08/18 at 12:00 Atorvastatin Calcium (Lipitor) 40 mg HS PO Last administered on 06/13/18 21:30 ; Start 06/08/18 at 21:00 Furosemide (Lasix) 40 mg DAILY PO Last administered on 06/14/18 09:59; Start at 12:00 Acetaminophen/ Hydrocodone Bitart (Lortab 5/325) 1 tab PRN Q6HRS PRN PO back pain Last administered on 06/13/18 16:07; Start 06/08/18 at 11:30 Insulin Glargine (Lantus) 30 units QHS SQ Last administered on 06/13/18 21:35; Start 06/08/18 at 21:00; Stop 06/14/18 at 11:49; Status DC Lisinopril (Prinivil) 20 mg DAILY PO Last administered on 06/10/18 09:08; Start 06/08/18 at 12:00 Metoprolol Succinate (Toprol Xl) 100 mg DAILY PO Last administered on 06/10/18 12:07; Start 06/08/18 at 12:00 Non-Formulary Medication (Budesonide/ Formoterol Fumarate (Symbicort 160-4.5 Mcg Inhaler)) 2 puff BID IH ; Start 06/08/18 at 21:00; Status UNV Diltiazem HCl (Cardizem 24hr Cd) 180 mg DAILY PO Last administered on 06/14/18 10:05; Start 06/08/18 at 12:00 Hydroxyzine Pamoate (Vistaril) 50 mg QMWF PO Last administered on 06/13/18 18: 00; Start 06/08/18 at 16:00 Non-Formulary Medication ([Albuterol Sulfate] ) 2.5 mg PRN Q4HRS PRN NEB SHORTNESS OF BREATH; Start 06/08/18 at 11:30; Status UNV Budesonide (Pulmicort) 0.5 mg RTBID NEB Last administered on 06/14/18 08:44; Start 06/08/18 at 12:00 Albuterol Sulfate (Ventolin Neb Soln) 2.5 mg RTQID NEB Last administered on 06/14 12:10; Start 06/08/18 at 12:00 Albuterol Sulfate (Ventolin Neb Soln) 2.5 mg PRN Q4HRS PRN NEB SHORTNESS OF BREATH; Start 06/08/18 at 11:30 Sodium Chloride 1,000 ml @ 1,000 mls/hr Q1H PRN IV hypotension; Start 06/08/18 at 12:22; Stop 06/08/18 at 18:21; Status DC Diphenhydramine HCl (Benadryl) 25 mg 1X PRN PRN IV ITCHING; Start 06/08/18 at 12 :30; Stop 06/09/18 at 12:29; Status DC Diphenhydramine HCl (Benadryl) 25 mg 1X PRN PRN IV ITCHING; Start 06/08/18 at 12 :30; Stop 06/09/18 at 12:29; Status DC Sodium Chloride 1,000 ml @ 400 mls/hr Q2H30M PRN IV PATENCY; Start 06/08/18 at 12:22; Stop 06/09/18 at 00:21; Status DC Info (PHARMACY MONITORING -- do not chart) 1 each PRN DAILY PRN MC SEE COMMENTS ; Start 06/08/18 at 12:30; Status Cancel Prednisone (Prednisone) 20 mg 1X ONCE PO Last administered on 06/08/18at 18:04; Start 06/08/18 at 18:00; Stop 06/08/18 at 18:01; Status DC Prednisone (Prednisone) 20 mg 1X ONCE PO Last administered on 06/08/18at 21:12; Start 06/08/18 at 22:00; Stop 06/08/18 at 22:01; Status DC Prednisone (Prednisone) 20 mg 1X ONCE PO Last administered on 06/09/18at 06:15; Start 06/09/18 at 06:00; Stop 06/09/18 at 06:01; Status DC Diphenhydramine HCl (Benadryl) 50 mg PRN 1X PRN PO COMMENTS Last administered on 06/09/18at 08:04; Start 06/08/18 at 14:45; Stop 06/09/18 at 14:44; Status DC Enoxaparin Sodium (Lovenox Per Pharmacy Treatment Dosing) 1 each PRN DAILY PRN MC SEE COMMENTS; Start 06/08/18 at 15:30; Status Cancel Iohexol (Omnipaque 350 Mg/ml) 90 ml 1X ONCE IV Last administered on 06/09/18at 08:56; Start 06/09/18 at 09:00; Stop 06/09/18 at 09:01; Status DC Info (CONTRAST GIVEN -- Rx MONITORING) 1 each PRN DAILY PRN MC SEE COMMENTS; Start 06/09/18 at 09:00; Stop 06/11/18 at 08:59; Status DC Diclofenac Sodium (Voltaren) 1 evgeny BID TP Last administered on 06/14/18at 09:59; Start 06/09/18 at 13:30 Heparin Sodium/ Dextrose 500 ml @ 0 mls/hr CONT PRN IV SEE I/O RECORD Last administered on 06/10/18at 12:14; Start 06/10/18 at 11:45; Stop 06/11/18 at 02:46; Status DC Heparin Sodium (Porcine) (Heparin Sodium) 1,700 unit PRN Q6HRS PRN IV FOR UFH LEVEL LESS THAN 0.2; Start 06/10/18 at 11:45; Stop 06/12/18 at 12:24; Status DC Info (Anti-Coagulation Monitoring By Pharmacy) 1 each PRN DAILY PRN MC SEE COMMENTS Last administered on 06/11/18at 16:33; Start 06/10/18 at 11:45; Stop at 11:01; Status DC Sodium Chloride 250 ml @ 500 mls/hr 1X ONCE IV Last administered on 06/11/18at 03:00; Start 06/11/18 at 03:00; Stop 06/11/18 at 03:29; Status DC Dopamine HCl/ Dextrose 250 ml @ 5.19 mls/hr CONT PRN IV SEE I/O RECORD; Start 06/11/18 at 03:00; Stop 06/12/18 at 12:24; Status DC Ondansetron HCl (Zofran) 4 mg PRN Q6HRS PRN IV NAUSEA/VOMITING 1ST CHOICE Last administered on 06/11/18at 04:51; Start 06/11/18 at 03:15 Morphine Sulfate (Morphine Sulfate) 2 mg PRN Q4HRS PRN IV SEVERE PAIN; Start at 03:15; Stop 06/11/18 at 10:41; Status DC Sodium Chloride 250 ml @ 500 mls/hr 1X ONCE IV Last administered on 06/11/18at 03:30; Start 06/11/18 at 03:30; Stop 06/11/18 at 03:59; Status DC Iohexol (Omnipaque 350 Mg/ml) 90 ml 1X ONCE IV Last administered on 06/11/18at 04:02; Start 06/11/18 at 04:00; Stop 06/11/18 at 04:01; Status DC Diphenhydramine HCl (Benadryl) 25 mg 1X ONCE IV Last administered on 06/11/18at 04:15; Start 06/11/18 at 04:00; Stop 06/11/18 at 04:01; Status DC Info (CONTRAST GIVEN -- Rx MONITORING) 1 each PRN DAILY PRN MC SEE COMMENTS; Start 06/11/18 at 03:30; Stop 06/12/18 at 15:36; Status DC Heparin Sodium/ Dextrose 500 ml @ 0 mls/hr CONT PRN IV SEE I/O RECORD Last administered on 06/11/18at 05:01; Start 06/11/18 at 04:30; Stop 06/12/18 at 12:24; Status DC Morphine Sulfate (Morphine Sulfate) 2 mg PRN Q2HR PRN IV SEVERE PAIN Last administered on 06/11/18at 04:51; Start 06/11/18 at 04:30; Stop 06/12/18 at 12:24; Status DC Morphine Sulfate (Morphine Sulfate) 1 mg PRN Q2HR PRN IV MODERATE PAIN; Start 06/11/18 at 04:30; Stop 06/12/18 at 12:24; Status DC Iodixanol (Visipaque 320) 100 ml STK-MED ONCE .ROUTE ; Start 06/11/18 at 10:44; Stop 06/11/18 at 10:45; Status DC Lidocaine HCl (Xylocaine-Mpf 1% 2ml Vial) 2 ml STK-MED ONCE .ROUTE ; Start at 10:44; Stop 06/11/18 at 10:45; Status DC Heparin Sodium/ Sodium Chloride 1,000 ml @ As Directed STK-MED ONCE .ROUTE ; Start 06/11/18 at 10:45; Stop 06/11/18 at 10:46; Status DC Heparin Sodium (Porcine) 5000 unit/Sodium Chloride 505 ml @ 505 mls/hr 1X ONCE IRR Last administered on 06/12/18at 14:45; Start 06/12/18 at 06:00; Stop 06/12 at 06:59; Status DC Cefazolin Sodium 1 gm/Sodium Chloride 500 ml @ 500 mls/hr 1X ONCE IRR Last administered on 06/12/18at 14:45; Start 06/12/18 at 06:00; Stop 06/12/18 at 06:59; Status DC Lidocaine HCl (Lidocaine 1% 20ml Vial) 20 ml STK-MED ONCE .ROUTE ; Start at 10:59; Stop 06/11/18 at 11:00; Status DC Methylprednisolone Sodium Succinate (SOLU-Medrol 125MG VIAL) 125 mg STK-MED ONCE .ROUTE ; Start 06/11/18 at 11:06; Stop 06/11/18 at 11:07; Status DC Fentanyl Citrate (Fentanyl 2ml Vial) 100 mcg STK-MED ONCE .ROUTE ; Start at 11:06; Stop 06/11/18 at 11:07; Status DC Midazolam HCl (Versed) 2 mg STK-MED ONCE .ROUTE ; Start 06/11/18 at 11:06; Stop 06/11/18 at 11:07; Status DC Famotidine (Pepcid Vial) 20 mg STK-MED ONCE .ROUTE ; Start 06/11/18 at 11:06; Stop 06/11/18 at 11:07; Status DC Diphenhydramine HCl (Benadryl) 50 mg STK-MED ONCE .ROUTE ; Start 06/11/18 at 11: 06; Stop 06/11/18 at 11:07; Status DC Heparin Sodium/ Sodium Chloride (HEPARIN for ARTERIAL LINE FLUSH) 1,000 unit 1X ONCE IART Last administered on 06/11/18at 11:42; Start 06/11/18 at 11:45; Stop 06/11/18 at 11:46; Status DC Iodixanol (Visipaque 320) 104 ml 1X ONCE IART Last administered on 06/11/18at 11 :42; Start 06/11/18 at 11:45; Stop 06/11/18 at 11:46; Status DC Lidocaine HCl (Lidocaine 1% 20ml Vial) 15 ml 1X ONCE INJ Last administered on 06/11/18at 11:43; Start 06/11/18 at 11:45; Stop 06/11/18 at 11:46; Status DC Diphenhydramine HCl (Benadryl) 25 mg 1X ONCE IVP Last administered on at 11:43; Start 06/11/18 at 11:45; Stop 06/11/18 at 11:46; Status DC Methylprednisolone Sodium Succinate (SOLU-Medrol 125MG VIAL) 125 mg 1X ONCE IV Last administered on 06/11/18at 11:43; Start 06/11/18 at 11:45; Stop 06/11/18 at 11:46; Status DC Famotidine (Pepcid Vial) 20 mg 1X ONCE IVP Last administered on 06/11/18at 11:18 ; Start 06/11/18 at 11:45; Stop 06/11/18 at 11:46; Status DC Sodium Chloride (Normal Saline Flush) 3 ml QSHIFT PRN IV AFTER MEDS AND BLOOD DRAWS; Start 06/11/18 at 12:45 Sodium Chloride 1,000 ml @ 1,000 mls/hr Q1H PRN IV hypotension; Start 06/11/18 at 13:48; Stop 06/11/18 at 19:47; Status DC Albumin Human 200 ml @ 200 mls/hr 1X PRN PRN IV Hypotension; Start 06/11/18 at 14:00; Stop 06/11/18 at 19:59; Status DC Sodium Chloride 1,000 ml @ 400 mls/hr Q2H30M PRN IV PATENCY; Start 06/11/18 at 13:48; Stop 06/12/18 at 01:47; Status DC Info (PHARMACY MONITORING -- do not chart) 1 each PRN DAILY PRN MC SEE COMMENTS ; Start 06/11/18 at 14:00; Stop 06/11/18 at 14:00; Status DC Info (PHARMACY MONITORING -- do not chart) 1 each PRN DAILY PRN MC SEE COMMENTS ; Start 06/11/18 at 14:00; Stop 06/11/18 at 14:00; Status DC Dextrose (Dextrose 50%-Water Syringe) 25 gm STK-MED ONCE IV ; Start 06/11/18 at 14:08; Stop 06/11/18 at 14:12; Status DC Prednisone (Prednisone) 20 mg 1X ONCE PO Last administered on 06/11/18at 23:35; Start 06/11/18 at 21:00; Stop 06/11/18 at 21:01; Status DC Prednisone (Prednisone) 20 mg 1X ONCE PO ; Start 06/12/18 at 09:00; Stop at 09:01; Status DC Cefazolin Sodium/ Dextrose 50 ml @ 100 mls/hr 1X ONCE IV ; Start 06/12/18 at 12 :00; Stop 06/12/18 at 12:29; Status DC Ondansetron HCl (Zofran) 4 mg PRN Q6HRS PRN IV NAUSEA/VOMITING; Start 06/12/18 at 07:00; Stop 06/13/18 at 06:59; Status DC Fentanyl Citrate (Fentanyl 2ml Vial) 25 mcg PRN Q5MIN PRN IV MILD PAIN; Start 06/12/18 at 07:00; Stop 06/13/18 at 06:59; Status DC Fentanyl Citrate (Fentanyl 2ml Vial) 50 mcg PRN Q5MIN PRN IV MODERATE TO SEVERE PAIN; Start 06/12/18 at 07:00; Stop 06/13/18 at 06:59; Status DC Morphine Sulfate (Morphine Sulfate) 1 mg PRN Q10MIN PRN IV SEVERE PAIN; Start 06/12/18 at 07:00; Stop 06/12/18 at 12:24; Status DC Ringer's Solution 1,000 ml @ 30 mls/hr Q24H IV Last administered on 06/12/18at 07:00; Start 06/12/18 at 07:00; Stop 06/12/18 at 18:59; Status DC Lidocaine HCl (Xylocaine-Mpf 1% 2ml Vial) 2 ml PRN 1X PRN ID IV START; Start at 07:00; Stop 06/13/18 at 06:59; Status DC Hydromorphone HCl (Dilaudid) 0.5 mg PRN Q10MIN PRN IV SEV PAIN, Second choice; Start 06/12/18 at 07:00; Stop 06/13/18 at 06:59; Status DC Prochlorperazine Edisylate (Compazine) 5 mg PACU PRN PRN IV NAUSEA, MRX1; Start 06/12/18 at 07:00; Stop 06/13/18 at 06:59; Status DC Dextrose (Dextrose 50%-Water Syringe) 25 gm STK-MED ONCE IV ; Start 06/11/18 at 14:00; Stop 06/12/18 at 08:16; Status DC Heparin Sodium (Porcine) (Heparin Sodium) 10,000 unit STK-MED ONCE .ROUTE ; Start 06/12/18 at 12:08; Stop 06/12/18 at 12:09; Status DC Cellulose (Surgicel Fibrillar 1x2) 1 each STK-MED ONCE .ROUTE ; Start 06/12/18 at 12:08; Stop 06/12/18 at 12:09; Status DC Protamine Sulfate (Protamine) 50 mg STK-MED ONCE IV ; Start 06/12/18 at 12:08; Stop 06/12/18 at 12:09; Status DC Propofol 20 ml @ As Directed STK-MED ONCE IV ; Start 06/12/18 at 12:17; Stop 06/12 at 12:18; Status DC Dexamethasone Sodium Phosphate (Decadron) 20 mg STK-MED ONCE .ROUTE ; Start 06/12 at 12:17; Stop 06/12/18 at 12:18; Status DC Famotidine (Pepcid Vial) 20 mg STK-MED ONCE .ROUTE ; Start 06/12/18 at 12:17; Stop 06/12/18 at 12:18; Status DC Lidocaine HCl (Lidocaine Pf 2% Vial) 5 ml STK-MED ONCE .ROUTE ; Start 06/12/18 at 12:17; Stop 06/12/18 at 12:18; Status DC Ondansetron HCl (Zofran) 4 mg STK-MED ONCE .ROUTE ; Start 06/12/18 at 12:17; Stop 06/12/18 at 12:18; Status DC Etomidate (Amidate) 20 mg STK-MED ONCE IV ; Start 06/12/18 at 12:17; Stop at 12:18; Status DC Sodium Chloride (SODIUM CHLORIDE 20ml) 20 ml STK-MED ONCE IJ ; Start 06/12/18 at 12:17; Stop 06/12/18 at 12:18; Status DC Ephedrine Sulfate (Akovaz) 50 mg STK-MED ONCE .ROUTE ; Start 06/12/18 at 12:17; Stop 06/12/18 at 12:18; Status DC Vecuronium Romulus (Norcuron Bolus) 10 mg STK-MED ONCE IV ; Start 06/12/18 at 12: 17; Stop 06/12/18 at 12:18; Status DC Fentanyl Citrate (Fentanyl 2ml Vial) 100 mcg STK-MED ONCE .ROUTE ; Start at 12:17; Stop 06/12/18 at 12:18; Status DC Hydromorphone HCl (Dilaudid) 2 mg STK-MED ONCE .ROUTE ; Start 06/12/18 at 12:18; Stop 06/12/18 at 12:19; Status DC Vasopressin (Vasostrict) 20 unit STK-MED ONCE .ROUTE ; Start 06/12/18 at 12:18; Stop 06/12/18 at 12:19; Status Cancel Albumin Human 0 ml @ As Directed STK-MED ONCE IV ; Start 06/12/18 at 12:19; Stop 06/12/18 at 12:20; Status DC Cisatracurium Besylate (Nimbex) 20 mg STK-MED ONCE IV ; Start 06/12/18 at 12:20; Stop 06/12/18 at 12:21; Status DC Midazolam HCl (Versed) 2 mg STK-MED ONCE .ROUTE ; Start 06/12/18 at 12:30; Stop 06/12/18 at 12:31; Status DC Iodixanol (Visipaque 320) 100 ml STK-MED ONCE .ROUTE ; Start 06/12/18 at 12:55; Stop 06/12/18 at 12:56; Status DC Iodixanol (Visipaque 320) 50 ml STK-MED ONCE .ROUTE ; Start 06/12/18 at 12:56; Stop 06/12/18 at 12:57; Status DC Heparin Sodium/ Sodium Chloride 1,000 ml @ As Directed STK-MED ONCE .ROUTE ; Start 06/12/18 at 12:56; Stop 06/12/18 at 12:57; Status DC Sodium Chloride (SODIUM CHLORIDE 20ml) 20 ml STK-MED ONCE IJ ; Start 06/12/18 at 14:29; Stop 06/12/18 at 14:30; Status DC Cefazolin Sodium/ Dextrose 50 ml @ As Directed STK-MED ONCE IV ; Start 06/12/18 at 14:40; Stop 06/12/18 at 14:41; Status DC Bupivacaine HCl/ Epinephrine Bitart (Sensorcaine-Epi 0.25%-[id number] Mpf) 30 ml STK-MED ONCE .ROUTE Last administered on 06/12/18at 14:45; Start 06/12/18 at 14:41 ; Stop 06/12/18 at 14:42; Status DC Heparin Sodium (Porcine) (Heparin Sodium) 10,000 unit STK-MED ONCE .ROUTE ; Start 06/12/18 at 14:59; Stop 06/12/18 at 15:00; Status DC Heparin Sodium/ Sodium Chloride 500 ml @ As Directed STK-MED ONCE .ROUTE ; Start 06/12/18 at 15:00; Stop 06/12/18 at 15:01; Status DC Iodixanol (Visipaque 320) 100 ml STK-MED ONCE .ROUTE ; Start 06/12/18 at 15:13; Stop 06/12/18 at 15:14; Status DC Iodixanol (Visipaque 320) 250 ml 1X ONCE IV Last administered on 06/12/18at 15: 56; Start 06/12/18 at 15:30; Stop 06/12/18 at 15:36; Status DC Glycopyrrolate (Robinul) 1 mg STK-MED ONCE .ROUTE ; Start 06/12/18 at 15:33; Stop 06/12/18 at 15:34; Status DC Info (CONTRAST GIVEN -- Rx MONITORING) 1 each PRN DAILY PRN MC SEE COMMENTS; Start 06/12/18 at 15:45; Stop 06/14/18 at 15:44 Sevoflurane (Ultane) 90 ml STK-MED ONCE IH ; Start 06/12/18 at 15:53; Stop at 15:54; Status DC Throat Lozenges (Cepacol Sore Throat Lozenge) 1 fausto PRN Q2HRS PRN PO SORE THROAT; Start 06/13/18 at 11:15 Sodium Chloride 1,000 ml @ 1,000 mls/hr Q1H PRN IV hypotension; Start 06/13/18 at 11:57; Stop 06/13/18 at 17:56; Status DC Sodium Chloride 1,000 ml @ 400 mls/hr Q2H30M PRN IV PATENCY; Start 06/13/18 at 11:57; Stop 06/13/18 at 23:56; Status DC Info (PHARMACY MONITORING -- do not chart) 1 each PRN DAILY PRN MC SEE COMMENTS ; Start 06/13/18 at 12:00 Info (PHARMACY MONITORING -- do not chart) 1 each PRN DAILY PRN MC SEE COMMENTS ; Start 06/13/18 at 12:00; Status UNV Lidocaine HCl (Xylocaine-Mpf 1% 2ml Vial) 2 ml 1X ONCE INJ Last administered on 06/13/18at 12:16; Start 06/13/18 at 12:00; Stop 06/13/18 at 12:05; Status DC Dextrose (Dextrose 50%-Water Syringe) 25 gm STK-MED ONCE IV ; Start 06/14/18 at 04:37; Stop 06/14/18 at 04:38; Status DC Dextrose (Dextrose 50%-Water Syringe) 12.5 gm PRN Q15MIN PRN IV SEE COMMENTS Last administered on 06/14/18at 05:47; Start 06/14/18 at 05:15 Insulin Glargine (Lantus) 15 units QHS SQ ; Start 06/14/18 at 21:00 Active Scripts Active Amiodarone Hcl 200 Mg Tablet 200 Mg PO DAILY MDD 1 Eliquis (Apixaban) 5 Mg Tablet 5 Mg PO BID MDD ` [Albuterol Sulfate] 2.5 MG/3 ML Nebu 2.5 Mg NEB PRN Q4HRS PRN Reported Lipitor (Atorvastatin Calcium) 40 Mg Tablet 40 Mg PO HS Hydrocodone-Acetamin 5-325 mg (Hydrocodone/Acetaminophen) 1 Each Tablet 1 Each PO PRN Q6HRS PRN Furosemide 40 Mg Tablet 40 Mg PO DAILY Symbicort 160-4.5 Mcg Inhaler (Budesonide/Formoterol Fumarate) 10.2 Gm Hfa.aer.ad 2 Puff IH BID Toprol Xl (Metoprolol Succinate) 100 Mg Tab.er.24h 100 Mg PO DAILY Proair Hfa Inhaler (Albuterol Sulfate) 8.5 Gm Hfa.aer.ad 1 Puff INH PRN Q6HRS PRN Marina-Jayme Tablet (Folic Acid/Vitamin B Comp W-C) 0.8 Mg Tablet 0.8 Mg PO DAILY Hydroxyzine Hcl 25 Mg Tablet 50 Mg PO QMWF Lisinopril 20 Mg Tablet 1 Tab PO DAILY Lantus Solostar (Insulin Glargine,Hum.rec.anlog) 100 Unit/1 Ml Insuln.pen 30 Unit SQ QHS Aspirin 325 Mg Tablet 1 Tab PO DAILY Vitals/I & O Vital Sign - Last 24 Hours 06/13/18 06/13/18 06/13/18 06/13/18 16:00 16:07 17:00 17:30 Temp 97.9 97.9 Pulse 84 76 Resp 22 22 B/P (MAP) 97/53 (68) 136/48 (77) Pulse Ox 98 98 100 98 O2 Delivery Nasal Cannula Nasal Cannula Nasal Cannula Nasal Cannula O2 Flow Rate 3.0 2.0 3.0 2.0 06/13/18 06/13/18 06/13/18 06/13/18 18:00 18:00 20:00 20:00 Temp 98.2 98.2 Pulse 85 80 Resp 20 B/P (MAP) 138/48 136/48 142/57 (85) Pulse Ox 97 O2 Delivery Room Air Nasal Cannula O2 Flow Rate 3.0 06/13/18 06/13/18 06/14/18 06/14/18 20:14 20:14 00:00 04:00 Temp 98.5 98.9 98.5 98.9 Pulse 68 58 Resp 14 16 B/P (MAP) 124/42 (69) 153/61 (91) Pulse Ox 96 96 100 99 O2 Delivery Nasal Cannula Nasal Cannula Nasal Cannula Nasal Cannula O2 Flow Rate 2.0 2.0 3.0 3.0 06/14/18 06/14/18 06/14/18 06/14/18 08:00 08:00 08:45 10:00 Temp 97.3 97.3 Pulse 58 64 Resp 20 B/P (MAP) 143/68 (93) 143/68 Pulse Ox 96 96 O2 Delivery Nasal Cannula Room Air Nasal Cannula O2 Flow Rate 3.0 2.0 06/14/18 06/14/18 06/14/18 10:05 12:00 12:11 Temp 98.4 98.4 Pulse 71 69 Resp 18 B/P (MAP) 143/68 136/58 (84) Pulse Ox 100 O2 Delivery Nasal Cannula Nasal Cannula O2 Flow Rate 3.0 2.0 Intake and Output 06/13/18 06/13/18 06/14/18 14:59 22:59 06:59 Intake Total 270 ml 300 ml 0 ml Output Total 0 ml 0 ml 0 ml Balance 270 ml 300 ml 0 ml MARISOL JAMIL MD Jun 14, 2018 13:41
[2018-06-14 16:00] VITALS: BP 143/52
[2018-06-14 20:00] VITALS: BP 150/63
[2018-06-14] MEDS: ATORVASTATIN CALCIUM 40 MG TABLET. PO SCH (20:56)
[2018-06-14] MEDS ORDERED: INSULIN GLARGINE 300 UNITS/3 ML INSULN.PEN. SQ SCH (21:00)
[2018-06-15] VITALS: BP 149/57
[2018-06-15 04:00] VITALS: BP 136/55
[2018-06-15 06:35] LABS: BASO % 0 % (0-3); EOS % 1 % (0-3); HEMATOCRIT 27.4 % (36.0-47.0); HEMOGLOBIN 8.8 g/dL (12.0-15.5); LYMPH # 0.3 x10^3/uL (1.0-4.8); LYMPH % 4 % (24-48); MEAN CORPUSCULAR HEMOGLOBIN 32 pg (25-35); MEAN CORPUSCULAR HGB CONC 32 g/dL (31-37); MEAN CORPUSCULAR VOLUME 100 fL (79-100); MONO # 1.1 x10^3/uL (0.0-1.1); MONO % 15 % (0-9); NEUT # 6.2 x10^3uL (1.8-7.7); NEUT % 81 % (31-73); PLATELET COUNT 163 x10^3/uL (140-400); RED BLOOD COUNT 2.73 x10^6/uL (3.50-5.40); RED CELL DISTRIBUTION WIDTH 15.1 % (11.5-14.5); WHITE BLOOD COUNT 7.7 x10^3/uL (4.0-11.0)
[2018-06-15 06:44] LABS: CREATININE 6.4 mg/dL (0.6-1.0); GFR 7.7; POTASSIUM 4.6 mmol/L (3.5-5.1)
[2018-06-15 08:00] VITALS: BP 148/67
[2018-06-15] MEDS: ALBUTEROL SULFATE 2.5 MG/3 ML NEBU. NEB SCH ×2 (08:18→11:10)
[2018-06-15] MEDS: BUDESONIDE 0.5 MG/2 ML NEBU. NEB SCH (08:18)
[2018-06-15] MEDS ORDERED: IV NORMAL SALINE 1000ML BAG 1,000 ML IV PRN ×2 (08:24)
[2018-06-15] MEDS ORDERED: DIALYSIS PATIENT. MC PRN (08:30)
--- NOTE | 2018-06-15 08:55 | NUR ---
SS following up with discharge planning. PT recommended alf unit. SS met with pt to discuss discharge planning and alf unit. Pt declined alf unit. Pt reported that her spouse is at home sick and recently had a stroke. She reported that her grandchildren are at the home taking care of him and will take care of her as well. Pt agreeable to home healthcare at discharge and reported having no preference of company. SS will await discharge orders for home and will proceed accordingly with discharge planning.
[2018-06-15] MEDS ORDERED: LIDOCAINE 1% PF 2 ML VIAL. ONE ×2 (09:11→09:30)
--- NOTE | 2018-06-15 09:41 | PDOC ---
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, 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- asymptomatic 5.9cm s/p endovascular repair 06/12 CAD; cardiac with without obstructive disease with 30% in-stent restenosis involving the distal segment of the RCA Chronic diastolic HF; LVEF 50% Moderate carotid stenosis Diabetes- as per Primary Anemia - hgb from 12 to 8.8 since admission Aranesp as per protocol COMMENT/RELEVANT DATA Meds Current Medications Medications (Trade) Dose Ordered Sig/Eric Start Time Stop Time Status Last Admin Dose Admin Acetaminophen/ Hydrocodone Bitart (Lortab 5/325) 1 tab PRN Q6HRS PRN 06/08/18 11:30 06/13/18 16:07 1 TAB Albumin Human 0 ml @ As Directed STK-MED ONCE 06/12/18 12:19 06/12/18 12:20 DC Albuterol Sulfate (Ventolin Neb Soln) 2.5 mg PRN Q4HRS PRN 06/08/18 11:30 Amiodarone HCl (Cordarone) 200 mg DAILY 06/08/18 12:00 06/14/18 10:00 200 MG Apixaban (Eliquis) 5 mg BID 06/08/18 12:00 06/08/18 15:30 DC Aspirin (Hung Aspirin) 325 mg DAILY 06/08/18 12:00 06/14/18 10:00 325 MG Atorvastatin Calcium (Lipitor) 40 mg HS 06/08/18 21:00 06/14/18 20:56 40 MG Budesonide (Pulmicort) 0.5 mg RTBID 06/08/18 12:00 06/15/18 08:18 0.5 MG Bupivacaine HCl/ Epinephrine Bitart (Sensorcaine-Epi 0.25%-1:035156 Mpf) 30 ml STK-MED ONCE 06/12/18 14:41 06/12/18 14:42 DC 06/12/18 14:45 16 ML Cefazolin Sodium 1 gm/Sodium Chloride 500 ml @ 500 mls/hr 1X ONCE 06/12/18 06:00 06/12/18 06:59 DC 06/12/18 14:45 Cefazolin Sodium/ Dextrose 50 ml @ As Directed STK-MED ONCE 06/12/18 14:40 06/12/18 14:41 DC Cellulose (Surgicel Fibrillar 1x2) 1 each STK-MED ONCE 06/12/18 12:08 06/12/18 12:09 DC Cisatracurium Besylate (Nimbex) 20 mg STK-MED ONCE 06/12/18 12:20 06/12/18 12:21 DC Dexamethasone Sodium Phosphate (Decadron) 20 mg STK-MED ONCE 06/12/18 12:17 06/12/18 12:18 DC Dextrose (Dextrose 50%-Water Syringe) 12.5 gm PRN Q15MIN PRN 06/14/18 05:15 06/14/18 05:47 12.5 GM Diclofenac Sodium (Voltaren) 1 evgeny BID 06/09/18 13:30 06/14/18 20:56 1 EVGENY Diltiazem HCl (Cardizem 24hr Cd) 180 mg DAILY 06/08/18 12:00 06/14/18 10:05 180 MG Diphenhydramine HCl (Benadryl) 25 mg 1X ONCE 06/11/18 11:45 06/11/18 11:46 DC 06/11/18 11:43 25 MG Dopamine HCl/ Dextrose 250 ml @ 5.19 mls/hr CONT PRN 06/11/18 03:00 06/12/18 12:24 DC Enoxaparin Sodium (Lovenox Per Pharmacy Treatment Dosing) 1 each PRN DAILY PRN 06/08/18 15:30 Cancel Ephedrine Sulfate (Akovaz) 50 mg STK-MED ONCE 06/12/18 12:17 06/12/18 12:18 DC Etomidate (Amidate) 20 mg STK-MED ONCE 06/12/18 12:17 06/12/18 12:18 DC Famotidine (Pepcid Vial) 20 mg STK-MED ONCE 06/12/18 12:17 06/12/18 12:18 DC Fentanyl Citrate (Fentanyl 2ml Vial) 100 mcg STK-MED ONCE 06/12/18 12:17 06/12/18 12:18 DC Furosemide (Lasix) 40 mg DAILY 06/08/18 12:00 06/14/18 09:59 40 MG Glycopyrrolate (Robinul) 1 mg STK-MED ONCE 06/12/18 15:33 06/12/18 15:34 DC Heparin Sodium (Porcine) (Heparin Sodium) 10,000 unit STK-MED ONCE 06/12/18 14:59 06/12/18 15:00 DC Heparin Sodium (Porcine) 5000 unit/Sodium Chloride 505 ml @ 505 mls/hr 1X ONCE 06/12/18 06:00 06/12/18 06:59 DC 06/12/18 14:45 Heparin Sodium/ Dextrose 500 ml @ 0 mls/hr CONT PRN 06/11/18 04:30 06/12/18 12:24 DC 06/11/18 05:01 16.6 MLS/HR Heparin Sodium/ Sodium Chloride 500 ml @ As Directed STK-MED ONCE 06/12/18 15:00 06/12/18 15:01 DC Heparin Sodium/ Sodium Chloride (HEPARIN for ARTERIAL LINE FLUSH) 1,000 unit 1X ONCE 06/11/18 11:45 06/11/18 11:46 DC 06/11/18 11:42 1,000 UNIT Hydromorphone HCl (Dilaudid) 2 mg STK-MED ONCE 06/12/18 12:18 06/12/18 12:19 DC Hydroxyzine Pamoate (Vistaril) 50 mg QMWF 06/08/18 16:00 06/13/18 18:00 50 MG Info (Anti-Coagulation Monitoring By Pharmacy) 1 each PRN DAILY PRN 06/10/18 11:45 06/12/18 11:01 DC 06/11/18 16:33 1 EACH Info (CONTRAST GIVEN -- Rx MONITORING) 1 each PRN DAILY PRN 06/12/18 15:45 06/14/18 15:44 DC Info (PHARMACY MONITORING -- do not chart) 1 each PRN DAILY PRN 06/15/18 08:30 06/15/18 08:30 DC Insulin Glargine (Lantus) 15 units QHS 06/14/18 21:00 Iodixanol (Visipaque 320) 250 ml 1X ONCE 06/12/18 15:30 06/12/18 15:36 DC 06/12/18 15:56 200 ML Iohexol (Omnipaque 350 Mg/ml) 90 ml 1X ONCE 06/11/18 04:00 06/11/18 04:01 DC 06/11/18 04:02 90 ML Lidocaine HCl (Lidocaine 1% 20ml Vial) 15 ml 1X ONCE 06/11/18 11:45 06/11/18 11:46 DC 06/11/18 11:43 15 ML Lidocaine HCl (Lidocaine Pf 2% Vial) 5 ml STK-MED ONCE 06/12/18 12:17 06/12/18 12:18 DC Lidocaine HCl (Xylocaine-Mpf 1% 2ml Vial) 2 ml STK-MED ONCE 06/15/18 09:11 06/15/18 09:12 DC Lisinopril (Prinivil) 20 mg DAILY 06/08/18 12:00 06/10/18 09:08 20 MG Methylprednisolone Sodium Succinate (SOLU-Medrol 125MG VIAL) 125 mg 1X ONCE 06/11/18 11:45 06/11/18 11:46 DC 06/11/18 11:43 125 MG Metoprolol Succinate (Toprol Xl) 100 mg DAILY 06/08/18 12:00 06/10/18 12:07 100 MG Midazolam HCl (Versed) 2 mg STK-MED ONCE 06/12/18 12:30 06/12/18 12:31 DC Morphine Sulfate (Morphine Sulfate) 1 mg PRN Q10MIN PRN 06/12/18 07:00 06/12/18 12:24 DC Non-Formulary Medication (Budesonide/ Formoterol Fumarate (Symbicort 160-4.5 Mcg Inhaler)) 2 puff BID 06/08/18 21:00 UNV Non-Formulary Medication ([Albuterol Sulfate] ) 2.5 mg PRN Q4HRS PRN 06/08/18 11:30 UNV Ondansetron HCl (Zofran) 4 mg STK-MED ONCE 06/12/18 12:17 3/5/19 12:18 DC Prednisone (Prednisone) 20 mg 1X ONCE 06/12/18 09:00 06/12/18 09:01 DC Prochlorperazine Edisylate (Compazine) 5 mg PACU PRN PRN 06/12/18 07:00 06/13/18 06:59 DC Propofol 20 ml @ As Directed STK-MED ONCE 06/12/18 12:17 06/12/18 12:18 DC Protamine Sulfate (Protamine) 50 mg STK-MED ONCE 06/12/18 12:08 06/12/18 12:09 DC Ringer's Solution 1,000 ml @ 30 mls/hr Q24H 06/12/18 07:00 06/12/18 18:59 DC 06/12/18 07:00 30 MLS/HR Sevoflurane (Ultane) 90 ml STK-MED ONCE 06/12/18 15:53 06/12/18 15:54 DC Sodium Chloride 1,000 ml @ 400 mls/hr Q2H30M PRN 06/15/18 08:24 06/15/18 20:23 Sodium Chloride (Normal Saline Flush) 3 ml QSHIFT PRN 06/11/18 12:45 Sodium Chloride (SODIUM CHLORIDE 20ml) 20 ml STK-MED ONCE 06/12/18 14:29 06/12/18 14:30 DC Throat Lozenges (Cepacol Sore Throat Lozenge) 1 fausto PRN Q2HRS PRN 06/13/18 11:15 Vasopressin (Vasostrict) 20 unit STK-MED ONCE 06/12/18 12:18 06/12/18 12:19 Cancel Vecuronium [place] (Norcuron Bolus) 10 mg STK-MED ONCE 06/12/18 12:17 06/12/18 12:18 DC Lab Laboratory Tests Test 06/14/18 10:10 06/14/18 11:45 06/14/18 17:40 06/14/18 20:57 Glucose (Fingerstick) 81 mg/dL (70-99) 74 mg/dL (70-99) 108 mg/dL (70-99) 157 mg/dL (70-99) Test 06/15/18 05:28 06/15/18 05:50 06/15/18 08:02 Glucose (Fingerstick) 74 mg/dL (70-99) 97 mg/dL (70-99) White Blood Count 7.7 x10^3/uL (4.0-11.0) Red Blood Count 2.73 x10^6/uL (3.50-5.40) Hemoglobin 8.8 g/dL (12.0-15.5) Hematocrit 27.4 % (36.0-47.0) Mean Corpuscular Volume 100 fL (79-100) Mean Corpuscular Hemoglobin 32 pg (25-35) Mean Corpuscular Hemoglobin Concent 32 g/dL (31-37) Red Cell Distribution Width 15.1 % (11.5-14.5) Platelet Count 163 x10^3/uL (140-400) Neutrophils (%) (Auto) 81 % (31-73) Lymphocytes (%) (Auto) 4 % (24-48) Monocytes (%) (Auto) 15 % (0-9) Eosinophils (%) (Auto) 1 % (0-3) Basophils (%) (Auto) 0 % (0-3) Neutrophils # (Auto) 6.2 x10^3uL (1.8-7.7) Lymphocytes # (Auto) 0.3 x10^3/uL (1.0-4.8) Monocytes # (Auto) 1.1 x10^3/uL (0.0-1.1) Eosinophils # (Auto) 0.0 x10^3/uL (0.0-0.7) Basophils # (Auto) 0.0 x10^3/uL (0.0-0.2) Sodium Level 140 mmol/L (136-145) Potassium Level 4.6 mmol/L (3.5-5.1) Chloride Level 102 mmol/L (98-107) Carbon Dioxide Level 30 mmol/L (21-32) Anion Gap 8 (6-14) Blood Urea Nitrogen 46 mg/dL (7-20) Creatinine 6.4 mg/dL (0.6-1.0) Estimated GFR (Cockcroft-Gault) 7.7 Glucose Level 74 mg/dL (70-99) Calcium Level 7.0 mg/dL (8.5-10.1) Results All relevant outside records, renal labs, imaging studies, telemetry/EKG's were reviewed. DESIREE MELARA MD Jun 15, 2018 09:41
--- NOTE | 2018-06-15 10:02 | PDOC ---
PULMONARY PROGRESS NOTES Subjective Patient with no new complaints Vitals Vital Signs Date Time Temp Pulse Resp B/P (MAP) Pulse Ox O2 Delivery O2 Flow Rate FiO2 06/15/18 08:18 97 Nasal Cannula 2.0 06/15/18 08:00 97.9 75 16 148/67 (94) 97.9 ROS: No Nausea, No Chest Pain, No Abdominal Pain General: Alert Lungs: Clear Cardiovascular: S1, S2 Abdomen: Soft, Non-tender, Other Neuro Exam: Alert Extremities: No Edema Skin: Warm Labs Laboratory Tests Test 06/13/18 11:19 06/13/18 17:55 06/13/18 21:33 06/14/18 04:34 Glucose (Fingerstick) 156 mg/dL (70-99) 101 mg/dL (70-99) 233 mg/dL (70-99) 31 mg/dL (70-99) Test 06/14/18 04:40 06/14/18 04:45 06/14/18 05:45 06/14/18 06:05 White Blood Count 9.9 x10^3/uL (4.0-11.0) Red Blood Count 3.09 x10^6/uL (3.50-5.40) Hemoglobin 9.6 g/dL (12.0-15.5) Hematocrit 31.0 % (36.0-47.0) Mean Corpuscular Volume 100 fL (79-100) Mean Corpuscular Hemoglobin 31 pg (25-35) Mean Corpuscular Hemoglobin Concent 31 g/dL (31-37) Red Cell Distribution Width 15.3 % (11.5-14.5) Platelet Count 193 x10^3/uL (140-400) Neutrophils (%) (Auto) 86 % (31-73) Lymphocytes (%) (Auto) 2 % (24-48) Monocytes (%) (Auto) 11 % (0-9) Eosinophils (%) (Auto) 0 % (0-3) Basophils (%) (Auto) 0 % (0-3) Neutrophils # (Auto) 8.5 x10^3uL (1.8-7.7) Lymphocytes # (Auto) 0.2 x10^3/uL (1.0-4.8) Monocytes # (Auto) 1.1 x10^3/uL (0.0-1.1) Eosinophils # (Auto) 0.0 x10^3/uL (0.0-0.7) Basophils # (Auto) 0.0 x10^3/uL (0.0-0.2) Sodium Level 141 mmol/L (136-145) Potassium Level 3.8 mmol/L (3.5-5.1) Chloride Level 103 mmol/L (98-107) Carbon Dioxide Level 32 mmol/L (21-32) Anion Gap 6 (6-14) Blood Urea Nitrogen 26 mg/dL (7-20) Creatinine 4.5 mg/dL (0.6-1.0) Estimated GFR (Cockcroft-Gault) 11.6 Glucose Level 91 mg/dL (70-99) Calcium Level 7.0 mg/dL (8.5-10.1) Glucose (Fingerstick) 97 mg/dL (70-99) 53 mg/dL (70-99) 85 mg/dL (70-99) Test 06/14/18 06:39 06/14/18 09:30 06/14/18 10:10 06/14/18 11:45 Glucose (Fingerstick) 91 mg/dL (70-99) 60 mg/dL (70-99) 81 mg/dL (70-99) 74 mg/dL (70-99) Test 06/14/18 17:40 06/14/18 20:57 06/15/18 05:28 06/15/18 05:50 Glucose (Fingerstick) 108 mg/dL (70-99) 157 mg/dL (70-99) 74 mg/dL (70-99) White Blood Count 7.7 x10^3/uL (4.0-11.0) Red Blood Count 2.73 x10^6/uL (3.50-5.40) Hemoglobin 8.8 g/dL (12.0-15.5) Hematocrit 27.4 % (36.0-47.0) Mean Corpuscular Volume 100 fL (79-100) Mean Corpuscular Hemoglobin 32 pg (25-35) Mean Corpuscular Hemoglobin Concent 32 g/dL (31-37) Red Cell Distribution Width 15.1 % (11.5-14.5) Platelet Count 163 x10^3/uL (140-400) Neutrophils (%) (Auto) 81 % (31-73) Lymphocytes (%) (Auto) 4 % (24-48) Monocytes (%) (Auto) 15 % (0-9) Eosinophils (%) (Auto) 1 % (0-3) Basophils (%) (Auto) 0 % (0-3) Neutrophils # (Auto) 6.2 x10^3uL (1.8-7.7) Lymphocytes # (Auto) 0.3 x10^3/uL (1.0-4.8) Monocytes # (Auto) 1.1 x10^3/uL (0.0-1.1) Eosinophils # (Auto) 0.0 x10^3/uL (0.0-0.7) Basophils # (Auto) 0.0 x10^3/uL (0.0-0.2) Sodium Level 140 mmol/L (136-145) Potassium Level 4.6 mmol/L (3.5-5.1) Chloride Level 102 mmol/L (98-107) Carbon Dioxide Level 30 mmol/L (21-32) Anion Gap 8 (6-14) Blood Urea Nitrogen 46 mg/dL (7-20) Creatinine 6.4 mg/dL (0.6-1.0) Estimated GFR (Cockcroft-Gault) 7.7 Glucose Level 74 mg/dL (70-99) Calcium Level 7.0 mg/dL (8.5-10.1) Test 06/15/18 08:02 Glucose (Fingerstick) 97 mg/dL (70-99) Laboratory Tests Test 06/14/18 10:10 06/14/18 11:45 06/14/18 17:40 06/14/18 20:57 Glucose (Fingerstick) 81 mg/dL (70-99) 74 mg/dL (70-99) 108 mg/dL (70-99) 157 mg/dL (70-99) Test 06/15/18 05:28 06/15/18 05:50 06/15/18 08:02 Glucose (Fingerstick) 74 mg/dL (70-99) 97 mg/dL (70-99) White Blood Count 7.7 x10^3/uL (4.0-11.0) Red Blood Count 2.73 x10^6/uL (3.50-5.40) Hemoglobin 8.8 g/dL (12.0-15.5) Hematocrit 27.4 % (36.0-47.0) Mean Corpuscular Volume 100 fL (79-100) Mean Corpuscular Hemoglobin 32 pg (25-35) Mean Corpuscular Hemoglobin Concent 32 g/dL (31-37) Red Cell Distribution Width 15.1 % (11.5-14.5) Platelet Count 163 x10^3/uL (140-400) Neutrophils (%) (Auto) 81 % (31-73) Lymphocytes (%) (Auto) 4 % (24-48) Monocytes (%) (Auto) 15 % (0-9) Eosinophils (%) (Auto) 1 % (0-3) Basophils (%) (Auto) 0 % (0-3) Neutrophils # (Auto) 6.2 x10^3uL (1.8-7.7) Lymphocytes # (Auto) 0.3 x10^3/uL (1.0-4.8) Monocytes # (Auto) 1.1 x10^3/uL (0.0-1.1) Eosinophils # (Auto) 0.0 x10^3/uL (0.0-0.7) Basophils # (Auto) 0.0 x10^3/uL (0.0-0.2) Sodium Level 140 mmol/L (136-145) Potassium Level 4.6 mmol/L (3.5-5.1) Chloride Level 102 mmol/L (98-107) Carbon Dioxide Level 30 mmol/L (21-32) Anion Gap 8 (6-14) Blood Urea Nitrogen 46 mg/dL (7-20) Creatinine 6.4 mg/dL (0.6-1.0) Estimated GFR (Cockcroft-Gault) 7.7 Glucose Level 74 mg/dL (70-99) Calcium Level 7.0 mg/dL (8.5-10.1) Medications Active Scripts Medications Dose Route/Sig Max Daily Dose Days Date Category Diltiazem 24HR Cd (Diltiazem Hcl) 180 Mg Cap.er.24h 180 Mg PO DAILY 06/08/18 Reported Lipitor (Atorvastatin Calcium) 40 Mg Tablet 40 Mg PO HS 06/08/18 Reported Hydrocodone-Acetamin 5-325 mg (Hydrocodone/Acetaminophen) 1 Each Tablet 1 Each PO PRN Q6HRS PRN 06/08/18 Reported Furosemide 40 Mg Tablet 40 Mg PO DAILY 06/08/18 Reported Symbicort 160-4.5 Mcg Inhaler (Budesonide/Formoterol Fumarate) 10.2 Gm Hfa.aer.ad 2 Puff IH BID 06/08/18 Reported Toprol Xl (Metoprolol Succinate) 100 Mg Tab.er.24h 100 Mg PO DAILY 06/08/18 Reported Proair Hfa Inhaler (Albuterol Sulfate) 8.5 Gm Hfa.aer.ad 1 Puff INH PRN Q6HRS PRN 06/08/18 Reported Amiodarone Hcl 200 Mg Tablet 200 Mg PO DAILY MDD 1 03/24/18 Rx Eliquis (Apixaban) 5 Mg Tablet 5 Mg PO BID MDD ` 03/24/18 Rx Marian-Jayme Tablet (Folic Acid/Vitamin B Comp W-C) 0.8 Mg Tablet 0.8 Mg PO DAILY 03/21/18 Reported Hydroxyzine Hcl 25 Mg Tablet 50 Mg PO QMWF 03/21/18 Reported Lisinopril 20 Mg Tablet 1 Tab PO DAILY 11/06/17 Reported Lantus Solostar (Insulin Glargine,Hum.rec.anlog) 100 Unit/1 Ml Insuln.pen 30 Unit SQ QHS 09/03/15 Reported [Albuterol Sulfate] 2.5 MG/3 ML Nebu 2.5 Mg NEB PRN Q4HRS PRN 12/26/14 Rx Aspirin 325 Mg Tablet 1 Tab PO DAILY 01/25/14 Reported Impression . IMPRESSION: 1. Chronic respiratory failure. Respiratory status appears to be compensated. Continue oxygen supplementation. 2. 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 3. Coronary artery disease, status post previous cardiac catheterization and stent placement. 4. Recent CT revealing abdominal aortic aneurysm measuring 6 cm; the patient to be seen by cardiovascular surgeon. 5. Renal failure, on hemodialysis. 6. BRADYCARDIA A/P: Asymptomatic 6cm AAA POD #1 3 1) Bilateral percutaneous access and closure for delivery of endograft greater than 12 [place] sheath CPT 68206, [id number] 2) endovascular repair of abdominal aortic aneurysm using bifurcated device ( [place] Excluder) CPT 78233 CATH Conclusion 1. Nonobstructive coronary artery disease with 30% in-stent restenosis involving the distal segment of the right coronary artery 2. Posterobasal wall hypokinesis with ejection fraction estimated at 45%. Recommendations Medical Therapy Plan . transfer out of ICU maintain fluid balance follow cardiology input EARL MARTINEZ MD Jun 15, 2018 10:02
--- NOTE | 2018-06-15 10:12 | NUR ---
SS following up with discharge planning. SS contacted Joi, [facility] automotive leasing sales representative, and requested that she meet with pt to discuss home healthcare. Joi to meet with pt this AM and discuss.
--- NOTE | 2018-06-15 11:03 | SNU/HH DC ---
DISCHARGE WITH HOME HEALTH DISCHARGE INFORMATION: Condition on Discharge: Stable CODE STATUS: Code Status: Full HOME HEALTH: Face to Face: I certify this patient is under my care and that I, or a nurse practitioner or physician's legal administrative assistant working with me, had a face to face encounter that meets the physician face to face encounter requirements with this patient on []. Medical Complications: Other (esrd) Physical Therapy For: Evalulation/Treatment Occupational Therapy For: Evaluation/Treatment Home Health Aide For: Self-care PROCUREMENT OFFICER For: Community Resources POST DISCHARGE ORDERS: Activity Instructions for Disc: Resume previous activity, Activity as tolerated Weight Bearing Status after Di: No restrictions Bathing Instructions: Shower-keep dressing dry DIET AFTER DISCHARGE: Renal Wound/Incision Care: Do not change dressing, Reinforce dressing PRN CHECKS AFTER DISCHARGE: Checks after discharge: Check blood press - daily TREATMENT/EQUIPMENT ORDERS: Adaptive Equipment Issued: None Discharge Respiratory Equipmen: Oxygen CERTIFICATION STATEMENT: Certification Statement: Certification Statement: Based on the above finding, I certify that this patient is confined to the home and needs intermittent fdc care, physical therapy and/or speech therapy, or continues to need occupational therapy.~ This patient is under my care, and I have initiated the establishment of the plan of care.~ This patient will be followed by myself or a community physician who will periodically review the plan of care. Home Meds Active Scripts Amiodarone Hcl (AMIODARONE HCL) 200 Mg Tablet, 200 MG PO DAILY for afib MDD 1, #30 TAB Prov:CARMELA TAYLOR MD 03/24/18 Apixaban (ELIQUIS) 5 Mg Tablet, 5 MG PO BID for afib MDD `, #60 TAB Prov:CARMELA TAYLOR MD 03/24/18 [Albuterol Sulfate] 2.5 MG/3 ML NEBU No Conflict Check, 2.5 MG NEB PRN Q4HRS PRN for SHORTNESS OF BREATH Prov:AC LEAL MD 12/26/14 Reported Medications Diltiazem Hcl (DILTIAZEM 24HR CD) 180 Mg Cap.er.24h, 180 MG PO DAILY for afib , CAP.SR 06/08/18 Atorvastatin Calcium (LIPITOR) 40 Mg Tablet, 40 MG PO HS for FOR CHOLESTEROL, # 30 TAB 0 Refills 06/08/18 Hydrocodone/Acetaminophen (Hydrocodone-Acetamin 5-325 mg) 1 Each Tablet, 1 EACH PO PRN Q6HRS PRN for back pain , TAB 06/08/18 Furosemide (FUROSEMIDE) 40 Mg Tablet, 40 MG PO DAILY for chf, TAB 06/08/18 Budesonide/Formoterol Fumarate (SYMBICORT 160-4.5 MCG INHALER) 10.2 Gm Hfa.aer.ad, 2 PUFF IH BID for copd, #10.6 GM 3 Refills 06/08/18 Metoprolol Succinate (TOPROL XL) 100 Mg Tab.er.24h, 100 MG PO DAILY for FOR HYPERTENSION, #30 TAB 0 Refills 06/08/18 Albuterol Sulfate (PROAIR HFA INHALER) 8.5 Gm Hfa.aer.ad, 1 PUFF INH PRN Q6HRS PRN for SHORTNESS OF BREATH, INHALER 0 Refills 06/08/18 Folic Acid/Vitamin B Comp W-C (RAYNA-STEVE TABLET) 0.8 Mg Tablet, 0.8 MG PO DAILY for dialysis 03/21/18 Hydroxyzine Hcl (HYDROXYZINE HCL) 25 Mg Tablet, 50 MG PO QMWF for anxiety during dialysis, #30 TAB 03/21/18 Lisinopril (LISINOPRIL) 20 Mg Tablet, 1 TAB PO DAILY, #30 TAB 5 Refills 11/06/17 Insulin Glargine,Hum.rec.anlog (LANTUS SOLOSTAR) 100 Unit/1 Ml Insuln.pen, 30 UNIT SQ QHS for diabetes, #15 ML 5 Refills 09/03/15 Aspirin (ASPIRIN) 325 Mg Tablet, 1 TAB PO DAILY, #30 TAB 5 Refills 01/25/14 YULIA DE ANDA III DO Jun 15, 2018 11:03
--- NOTE | 2018-06-15 11:37 | PDOC ---
PROGRESS NOTES Chief Complaint Chief Complaint Abdominal aortic aneurysm s/p endograft on 06/12 Vasculopathy CAD s/p cardiac cath with stents CHF COPD Diabetes Hypertension, Hyperlipidemia End-stage renal disease, on dialysis Rotator cuff surgery Bradycardia History of Present Illness History of Present Illness Patient seen and examined at dialysis. Patient is resting comfortably, eating in bed. Blood sugars up to 157 last night, 74 this am. Patient on 15 units of lantus. Patient has no new complaints. Patient is ready for discharge today with home health. HD (M-W-F). Neph, Cards, Pulm following. Vitals Vitals Vital Signs Date Time Temp Pulse Resp B/P (MAP) Pulse Ox O2 Delivery O2 Flow Rate FiO2 06/15/18 08:18 97 Nasal Cannula 2.0 06/15/18 08:00 97.9 75 16 148/67 (94) 97.9 Physical Exam General: Alert, Oriented X3, Cooperative, No acute distress Heart: Regular rate, No murmurs Lungs: Clear Abdomen: Normal bowel sounds, No tenderness Extremities: No clubbing, No cyanosis, No edema Skin: No rashes, No significant lesion Labs LABS Laboratory Tests Test 06/14/18 11:45 06/14/18 17:40 06/14/18 20:57 06/15/18 05:28 Glucose (Fingerstick) 74 mg/dL (70-99) 108 mg/dL (70-99) 157 mg/dL (70-99) 74 mg/dL (70-99) Test 06/15/18 05:50 06/15/18 08:02 White Blood Count 7.7 x10^3/uL (4.0-11.0) Red Blood Count 2.73 x10^6/uL (3.50-5.40) Hemoglobin 8.8 g/dL (12.0-15.5) Hematocrit 27.4 % (36.0-47.0) Mean Corpuscular Volume 100 fL (79-100) Mean Corpuscular Hemoglobin 32 pg (25-35) Mean Corpuscular Hemoglobin Concent 32 g/dL (31-37) Red Cell Distribution Width 15.1 % (11.5-14.5) Platelet Count 163 x10^3/uL (140-400) Neutrophils (%) (Auto) 81 % (31-73) Lymphocytes (%) (Auto) 4 % (24-48) Monocytes (%) (Auto) 15 % (0-9) Eosinophils (%) (Auto) 1 % (0-3) Basophils (%) (Auto) 0 % (0-3) Neutrophils # (Auto) 6.2 x10^3uL (1.8-7.7) Lymphocytes # (Auto) 0.3 x10^3/uL (1.0-4.8) Monocytes # (Auto) 1.1 x10^3/uL (0.0-1.1) Eosinophils # (Auto) 0.0 x10^3/uL (0.0-0.7) Basophils # (Auto) 0.0 x10^3/uL (0.0-0.2) Sodium Level 140 mmol/L (136-145) Potassium Level 4.6 mmol/L (3.5-5.1) Chloride Level 102 mmol/L (98-107) Carbon Dioxide Level 30 mmol/L (21-32) Anion Gap 8 (6-14) Blood Urea Nitrogen 46 mg/dL (7-20) Creatinine 6.4 mg/dL (0.6-1.0) Estimated GFR (Cockcroft-Gault) 7.7 Glucose Level 74 mg/dL (70-99) Calcium Level 7.0 mg/dL (8.5-10.1) Glucose (Fingerstick) 97 mg/dL (70-99) Review of Systems Review of Systems Denies chest pain Denies abdominal pain Denies fever, chills Denies shortness of breath Assessment and Plan Assessmemt and Plan Assessment: Abdominal aortic aneurysm s/p endograft on 06/12 Vasculopathy CAD s/p cardiac cath with stents CHF COPD Diabetes Hypertension, Hyperlipidemia End-stage renal disease, on dialysis Rotator cuff surgery Bradycardia Plan: Patient to be discharged today with home health Continue dialysis Follow up with PCP outpatient Continue to monitor blood sugars, insulin dose adjusted Return to the ED with worsening symptoms Comment Review of Relevant I have reviewed the following items mykel (where applicable) has been applied. Labs Laboratory Tests Test 06/13/18 17:55 06/13/18 21:33 06/14/18 04:34 06/14/18 04:40 Glucose (Fingerstick) 101 mg/dL (70-99) 233 mg/dL (70-99) 31 mg/dL (70-99) White Blood Count 9.9 x10^3/uL (4.0-11.0) Red Blood Count 3.09 x10^6/uL (3.50-5.40) Hemoglobin 9.6 g/dL (12.0-15.5) Hematocrit 31.0 % (36.0-47.0) Mean Corpuscular Volume 100 fL (79-100) Mean Corpuscular Hemoglobin 31 pg (25-35) Mean Corpuscular Hemoglobin Concent 31 g/dL (31-37) Red Cell Distribution Width 15.3 % (11.5-14.5) Platelet Count 193 x10^3/uL (140-400) Neutrophils (%) (Auto) 86 % (31-73) Lymphocytes (%) (Auto) 2 % (24-48) Monocytes (%) (Auto) 11 % (0-9) Eosinophils (%) (Auto) 0 % (0-3) Basophils (%) (Auto) 0 % (0-3) Neutrophils # (Auto) 8.5 x10^3uL (1.8-7.7) Lymphocytes # (Auto) 0.2 x10^3/uL (1.0-4.8) Monocytes # (Auto) 1.1 x10^3/uL (0.0-1.1) Eosinophils # (Auto) 0.0 x10^3/uL (0.0-0.7) Basophils # (Auto) 0.0 x10^3/uL (0.0-0.2) Sodium Level 141 mmol/L (136-145) Potassium Level 3.8 mmol/L (3.5-5.1) Chloride Level 103 mmol/L (98-107) Carbon Dioxide Level 32 mmol/L (21-32) Anion Gap 6 (6-14) Blood Urea Nitrogen 26 mg/dL (7-20) Creatinine 4.5 mg/dL (0.6-1.0) Estimated GFR (Cockcroft-Gault) 11.6 Glucose Level 91 mg/dL (70-99) Calcium Level 7.0 mg/dL (8.5-10.1) Test 06/14/18 04:45 06/14/18 05:45 06/14/18 06:05 06/14/18 06:39 Glucose (Fingerstick) 97 mg/dL (70-99) 53 mg/dL (70-99) 85 mg/dL (70-99) 91 mg/dL (70-99) Test 06/14/18 09:30 06/14/18 10:10 06/14/18 11:45 06/14/18 17:40 Glucose (Fingerstick) 60 mg/dL (70-99) 81 mg/dL (70-99) 74 mg/dL (70-99) 108 mg/dL (70-99) Test 06/14/18 20:57 06/15/18 05:28 06/15/18 05:50 06/15/18 08:02 Glucose (Fingerstick) 157 mg/dL (70-99) 74 mg/dL (70-99) 97 mg/dL (70-99) White Blood Count 7.7 x10^3/uL (4.0-11.0) Red Blood Count 2.73 x10^6/uL (3.50-5.40) Hemoglobin 8.8 g/dL (12.0-15.5) Hematocrit 27.4 % (36.0-47.0) Mean Corpuscular Volume 100 fL (79-100) Mean Corpuscular Hemoglobin 32 pg (25-35) Mean Corpuscular Hemoglobin Concent 32 g/dL (31-37) Red Cell Distribution Width 15.1 % (11.5-14.5) Platelet Count 163 x10^3/uL (140-400) Neutrophils (%) (Auto) 81 % (31-73) Lymphocytes (%) (Auto) 4 % (24-48) Monocytes (%) (Auto) 15 % (0-9) Eosinophils (%) (Auto) 1 % (0-3) Basophils (%) (Auto) 0 % (0-3) Neutrophils # (Auto) 6.2 x10^3uL (1.8-7.7) Lymphocytes # (Auto) 0.3 x10^3/uL (1.0-4.8) Monocytes # (Auto) 1.1 x10^3/uL (0.0-1.1) Eosinophils # (Auto) 0.0 x10^3/uL (0.0-0.7) Basophils # (Auto) 0.0 x10^3/uL (0.0-0.2) Sodium Level 140 mmol/L (136-145) Potassium Level 4.6 mmol/L (3.5-5.1) Chloride Level 102 mmol/L (98-107) Carbon Dioxide Level 30 mmol/L (21-32) Anion Gap 8 (6-14) Blood Urea Nitrogen 46 mg/dL (7-20) Creatinine 6.4 mg/dL (0.6-1.0) Estimated GFR (Cockcroft-Gault) 7.7 Glucose Level 74 mg/dL (70-99) Calcium Level 7.0 mg/dL (8.5-10.1) Laboratory Tests Test 06/14/18 11:45 06/14/18 17:40 06/14/18 20:57 06/15/18 05:28 Glucose (Fingerstick) 74 mg/dL (70-99) 108 mg/dL (70-99) 157 mg/dL (70-99) 74 mg/dL (70-99) Test 06/15/18 05:50 06/15/18 08:02 White Blood Count 7.7 x10^3/uL (4.0-11.0) Red Blood Count 2.73 x10^6/uL (3.50-5.40) Hemoglobin 8.8 g/dL (12.0-15.5) Hematocrit 27.4 % (36.0-47.0) Mean Corpuscular Volume 100 fL (79-100) Mean Corpuscular Hemoglobin 32 pg (25-35) Mean Corpuscular Hemoglobin Concent 32 g/dL (31-37) Red Cell Distribution Width 15.1 % (11.5-14.5) Platelet Count 163 x10^3/uL (140-400) Neutrophils (%) (Auto) 81 % (31-73) Lymphocytes (%) (Auto) 4 % (24-48) Monocytes (%) (Auto) 15 % (0-9) Eosinophils (%) (Auto) 1 % (0-3) Basophils (%) (Auto) 0 % (0-3) Neutrophils # (Auto) 6.2 x10^3uL (1.8-7.7) Lymphocytes # (Auto) 0.3 x10^3/uL (1.0-4.8) Monocytes # (Auto) 1.1 x10^3/uL (0.0-1.1) Eosinophils # (Auto) 0.0 x10^3/uL (0.0-0.7) Basophils # (Auto) 0.0 x10^3/uL (0.0-0.2) Sodium Level 140 mmol/L (136-145) Potassium Level 4.6 mmol/L (3.5-5.1) Chloride Level 102 mmol/L (98-107) Carbon Dioxide Level 30 mmol/L (21-32) Anion Gap 8 (6-14) Blood Urea Nitrogen 46 mg/dL (7-20) Creatinine 6.4 mg/dL (0.6-1.0) Estimated GFR (Cockcroft-Gault) 7.7 Glucose Level 74 mg/dL (70-99) Calcium Level 7.0 mg/dL (8.5-10.1) Glucose (Fingerstick) 97 mg/dL (70-99) Medications Current Medications Sodium Chloride 1,000 ml @ 100 mls/hr Q10H IV Last administered on 06/07/18at 19:56; Start 06/07/18 at 19:18; Stop 06/08/18 at 05:17; Status DC Ondansetron HCl (Zofran) 4 mg PRN Q8HRS PRN IV NAUSEA/VOMITING 1ST CHOICE; Start 06/07/18 at 21:00; Stop 06/08/18 at 20:59; Status DC Morphine Sulfate (Morphine Sulfate) 2 mg PRN Q2HR PRN IV SEVERE PAIN; Start at 21:00; Stop 06/08/18 at 06:39; Status DC Morphine Sulfate (Morphine Sulfate) 2 mg PRN Q2HR PRN IV SEVERE PAIN; Start 06/08/18 at 06:39; Stop 06/08/18 at 20:59; Status DC Amiodarone HCl (Cordarone) 200 mg DAILY PO Last administered on 06/14/18at 10:00 ; Start 06/08/18 at 12:00 Apixaban (Eliquis) 5 mg BID PO ; Start 06/08/18 at 12:00; Stop 06/08/18 at 15:30; Status DC Aspirin (Hung Aspirin) 325 mg DAILY PO Last administered on 06/14/18at 10:00; Start 06/08/18 at 12:00 Atorvastatin Calcium (Lipitor) 40 mg HS PO Last administered on 06/14/18 20:56 ; Start 06/08/18 at 21:00 Furosemide (Lasix) 40 mg DAILY PO Last administered on 06/14/18 09:59; Start at 12:00 Acetaminophen/ Hydrocodone Bitart (Lortab 5/325) 1 tab PRN Q6HRS PRN PO back pain Last administered on 06/13/18 16:07; Start 06/08/18 at 11:30 Insulin Glargine (Lantus) 30 units QHS SQ Last administered on 06/13/18 21:35; Start 06/08/18 at 21:00; Stop 06/14/18 at 11:49; Status DC Lisinopril (Prinivil) 20 mg DAILY PO Last administered on 06/10/18 09:08; Start 06/08/18 at 12:00 Metoprolol Succinate (Toprol Xl) 100 mg DAILY PO Last administered on 06/10/18 12:07; Start 06/08/18 at 12:00 Non-Formulary Medication (Budesonide/ Formoterol Fumarate (Symbicort 160-4.5 Mcg Inhaler)) 2 puff BID IH ; Start 06/08/18 at 21:00; Status UNV Diltiazem HCl (Cardizem 24hr Cd) 180 mg DAILY PO Last administered on 06/14/18 10:05; Start 06/08/18 at 12:00 Hydroxyzine Pamoate (Vistaril) 50 mg QMWF PO Last administered on 06/13/18 18: 00; Start 06/08/18 at 16:00 Non-Formulary Medication ([Albuterol Sulfate] ) 2.5 mg PRN Q4HRS PRN NEB SHORTNESS OF BREATH; Start 06/08/18 at 11:30; Status UNV Budesonide (Pulmicort) 0.5 mg RTBID NEB Last administered on 06/15/18 08:18; Start 06/08/18 at 12:00 Albuterol Sulfate (Ventolin Neb Soln) 2.5 mg RTQID NEB Last administered on 06/15 08:18; Start 06/08/18 at 12:00 Albuterol Sulfate (Ventolin Neb Soln) 2.5 mg PRN Q4HRS PRN NEB SHORTNESS OF BREATH; Start 06/08/18 at 11:30 Sodium Chloride 1,000 ml @ 1,000 mls/hr Q1H PRN IV hypotension; Start 06/08/18 at 12:22; Stop 06/08/18 at 18:21; Status DC Diphenhydramine HCl (Benadryl) 25 mg 1X PRN PRN IV ITCHING; Start 06/08/18 at 12 :30; Stop 06/09/18 at 12:29; Status DC Diphenhydramine HCl (Benadryl) 25 mg 1X PRN PRN IV ITCHING; Start 06/08/18 at 12 :30; Stop 06/09/18 at 12:29; Status DC Sodium Chloride 1,000 ml @ 400 mls/hr Q2H30M PRN IV PATENCY; Start 06/08/18 at 12:22; Stop 06/09/18 at 00:21; Status DC Info (PHARMACY MONITORING -- do not chart) 1 each PRN DAILY PRN MC SEE COMMENTS ; Start 06/08/18 at 12:30; Status Cancel Prednisone (Prednisone) 20 mg 1X ONCE PO Last administered on 06/08/18at 18:04; Start 06/08/18 at 18:00; Stop 06/08/18 at 18:01; Status DC Prednisone (Prednisone) 20 mg 1X ONCE PO Last administered on 06/08/18at 21:12; Start 06/08/18 at 22:00; Stop 06/08/18 at 22:01; Status DC Prednisone (Prednisone) 20 mg 1X ONCE PO Last administered on 06/09/18at 06:15; Start 06/09/18 at 06:00; Stop 06/09/18 at 06:01; Status DC Diphenhydramine HCl (Benadryl) 50 mg PRN 1X PRN PO COMMENTS Last administered on 06/09/18at 08:04; Start 06/08/18 at 14:45; Stop 06/09/18 at 14:44; Status DC Enoxaparin Sodium (Lovenox Per Pharmacy Treatment Dosing) 1 each PRN DAILY PRN MC SEE COMMENTS; Start 06/08/18 at 15:30; Status Cancel Iohexol (Omnipaque 350 Mg/ml) 90 ml 1X ONCE IV Last administered on 06/09/18 08:56; Start 06/09/18 at 09:00; Stop 06/09/18 at 09:01; Status DC Info (CONTRAST GIVEN -- Rx MONITORING) 1 each PRN DAILY PRN MC SEE COMMENTS; Start 06/09/18 at 09:00; Stop 06/11/18 at 08:59; Status DC Diclofenac Sodium (Voltaren) 1 evgeny BID TP Last administered on 06/14/18at 20:56; Start 06/09/18 at 13:30 Heparin Sodium/ Dextrose 500 ml @ 0 mls/hr CONT PRN IV SEE I/O RECORD Last administered on 06/10/18at 12:14; Start 06/10/18 at 11:45; Stop 06/11/18 at 02:46; Status DC Heparin Sodium (Porcine) (Heparin Sodium) 1,700 unit PRN Q6HRS PRN IV FOR UFH LEVEL LESS THAN 0.2; Start 06/10/18 at 11:45; Stop 06/12/18 at 12:24; Status DC Info (Anti-Coagulation Monitoring By Pharmacy) 1 each PRN DAILY PRN MC SEE COMMENTS Last administered on 06/11/18at 16:33; Start 06/10/18 at 11:45; Stop at 11:01; Status DC Sodium Chloride 250 ml @ 500 mls/hr 1X ONCE IV Last administered on 06/11/18at 03:00; Start 06/11/18 at 03:00; Stop 06/11/18 at 03:29; Status DC Dopamine HCl/ Dextrose 250 ml @ 5.19 mls/hr CONT PRN IV SEE I/O RECORD; Start 06/11/18 at 03:00; Stop 06/12/18 at 12:24; Status DC Ondansetron HCl (Zofran) 4 mg PRN Q6HRS PRN IV NAUSEA/VOMITING 1ST CHOICE Last administered on 06/11/18at 04:51; Start 06/11/18 at 03:15 Morphine Sulfate (Morphine Sulfate) 2 mg PRN Q4HRS PRN IV SEVERE PAIN; Start at 03:15; Stop 06/11/18 at 10:41; Status DC Sodium Chloride 250 ml @ 500 mls/hr 1X ONCE IV Last administered on 06/11/18at 03:30; Start 06/11/18 at 03:30; Stop 06/11/18 at 03:59; Status DC Iohexol (Omnipaque 350 Mg/ml) 90 ml 1X ONCE IV Last administered on 06/11/18at 04:02; Start 06/11/18 at 04:00; Stop 06/11/18 at 04:01; Status DC Diphenhydramine HCl (Benadryl) 25 mg 1X ONCE IV Last administered on 06/11/18at 04:15; Start 06/11/18 at 04:00; Stop 06/11/18 at 04:01; Status DC Info (CONTRAST GIVEN -- Rx MONITORING) 1 each PRN DAILY PRN MC SEE COMMENTS; Start 06/11/18 at 03:30; Stop 06/12/18 at 15:36; Status DC Heparin Sodium/ Dextrose 500 ml @ 0 mls/hr CONT PRN IV SEE I/O RECORD Last administered on 06/11/18at 05:01; Start 06/11/18 at 04:30; Stop 06/12/18 at 12:24; Status DC Morphine Sulfate (Morphine Sulfate) 2 mg PRN Q2HR PRN IV SEVERE PAIN Last administered on 06/11/18at 04:51; Start 06/11/18 at 04:30; Stop 06/12/18 at 12:24; Status DC Morphine Sulfate (Morphine Sulfate) 1 mg PRN Q2HR PRN IV MODERATE PAIN; Start 06/11/18 at 04:30; Stop 06/12/18 at 12:24; Status DC Iodixanol (Visipaque 320) 100 ml STK-MED ONCE .ROUTE ; Start 06/11/18 at 10:44; Stop 06/11/18 at 10:45; Status DC Lidocaine HCl (Xylocaine-Mpf 1% 2ml Vial) 2 ml STK-MED ONCE .ROUTE ; Start at 10:44; Stop 06/11/18 at 10:45; Status DC Heparin Sodium/ Sodium Chloride 1,000 ml @ As Directed STK-MED ONCE .ROUTE ; Start 06/11/18 at 10:45; Stop 06/11/18 at 10:46; Status DC Heparin Sodium (Porcine) 5000 unit/Sodium Chloride 505 ml @ 505 mls/hr 1X ONCE IRR Last administered on 06/12/18at 14:45; Start 06/12/18 at 06:00; Stop 06/12 at 06:59; Status DC Cefazolin Sodium 1 gm/Sodium Chloride 500 ml @ 500 mls/hr 1X ONCE IRR Last administered on 06/12/18at 14:45; Start 06/12/18 at 06:00; Stop 06/12/18 at 06:59; Status DC Lidocaine HCl (Lidocaine 1% 20ml Vial) 20 ml STK-MED ONCE .ROUTE ; Start at 10:59; Stop 06/11/18 at 11:00; Status DC Methylprednisolone Sodium Succinate (SOLU-Medrol 125MG VIAL) 125 mg STK-MED ONCE .ROUTE ; Start 06/11/18 at 11:06; Stop 06/11/18 at 11:07; Status DC Fentanyl Citrate (Fentanyl 2ml Vial) 100 mcg STK-MED ONCE .ROUTE ; Start at 11:06; Stop 06/11/18 at 11:07; Status DC Midazolam HCl (Versed) 2 mg STK-MED ONCE .ROUTE ; Start 06/11/18 at 11:06; Stop 06/11/18 at 11:07; Status DC Famotidine (Pepcid Vial) 20 mg STK-MED ONCE .ROUTE ; Start 06/11/18 at 11:06; Stop 06/11/18 at 11:07; Status DC Diphenhydramine HCl (Benadryl) 50 mg STK-MED ONCE .ROUTE ; Start 06/11/18 at 11: 06; Stop 06/11/18 at 11:07; Status DC Heparin Sodium/ Sodium Chloride (HEPARIN for ARTERIAL LINE FLUSH) 1,000 unit 1X ONCE IART Last administered on 06/11/18 11:42; Start 06/11/18 at 11:45; Stop 06/11/18 at 11:46; Status DC Iodixanol (Visipaque 320) 104 ml 1X ONCE IART Last administered on 06/11/18 11 :42; Start 06/11/18 at 11:45; Stop 06/11/18 at 11:46; Status DC Lidocaine HCl (Lidocaine 1% 20ml Vial) 15 ml 1X ONCE INJ Last administered on 06/11/18 11:43; Start 06/11/18 at 11:45; Stop 06/11/18 at 11:46; Status DC Diphenhydramine HCl (Benadryl) 25 mg 1X ONCE IVP Last administered on at 11:43; Start 06/11/18 at 11:45; Stop 06/11/18 at 11:46; Status DC Methylprednisolone Sodium Succinate (SOLU-Medrol 125MG VIAL) 125 mg 1X ONCE IV Last administered on 06/11/18at 11:43; Start 06/11/18 at 11:45; Stop 06/11/18 at 11:46; Status DC Famotidine (Pepcid Vial) 20 mg 1X ONCE IVP Last administered on 06/11/18at 11:18 ; Start 06/11/18 at 11:45; Stop 06/11/18 at 11:46; Status DC Sodium Chloride (Normal Saline Flush) 3 ml QSHIFT PRN IV AFTER MEDS AND BLOOD DRAWS; Start 06/11/18 at 12:45 Sodium Chloride 1,000 ml @ 1,000 mls/hr Q1H PRN IV hypotension; Start 06/11/18 at 13:48; Stop 06/11/18 at 19:47; Status DC Albumin Human 200 ml @ 200 mls/hr 1X PRN PRN IV Hypotension; Start 06/11/18 at 14:00; Stop 06/11/18 at 19:59; Status DC Sodium Chloride 1,000 ml @ 400 mls/hr Q2H30M PRN IV PATENCY; Start 06/11/18 at 13:48; Stop 06/12/18 at 01:47; Status DC Info (PHARMACY MONITORING -- do not chart) 1 each PRN DAILY PRN MC SEE COMMENTS ; Start 06/11/18 at 14:00; Stop 06/11/18 at 14:00; Status DC Info (PHARMACY MONITORING -- do not chart) 1 each PRN DAILY PRN MC SEE COMMENTS ; Start 06/11/18 at 14:00; Stop 06/11/18 at 14:00; Status DC Dextrose (Dextrose 50%-Water Syringe) 25 gm STK-MED ONCE IV ; Start 06/11/18 at 14:08; Stop 06/11/18 at 14:12; Status DC Prednisone (Prednisone) 20 mg 1X ONCE PO Last administered on 06/11/18at 23:35; Start 06/11/18 at 21:00; Stop 06/11/18 at 21:01; Status DC Prednisone (Prednisone) 20 mg 1X ONCE PO ; Start 06/12/18 at 09:00; Stop at 09:01; Status DC Cefazolin Sodium/ Dextrose 50 ml @ 100 mls/hr 1X ONCE IV ; Start 06/12/18 at 12 :00; Stop 06/12/18 at 12:29; Status DC Ondansetron HCl (Zofran) 4 mg PRN Q6HRS PRN IV NAUSEA/VOMITING; Start 06/12/18 at 07:00; Stop 06/13/18 at 06:59; Status DC Fentanyl Citrate (Fentanyl 2ml Vial) 25 mcg PRN Q5MIN PRN IV MILD PAIN; Start 06/12/18 at 07:00; Stop 06/13/18 at 06:59; Status DC Fentanyl Citrate (Fentanyl 2ml Vial) 50 mcg PRN Q5MIN PRN IV MODERATE TO SEVERE PAIN; Start 06/12/18 at 07:00; Stop 06/13/18 at 06:59; Status DC Morphine Sulfate (Morphine Sulfate) 1 mg PRN Q10MIN PRN IV SEVERE PAIN; Start 06/12/18 at 07:00; Stop 06/12/18 at 12:24; Status DC Ringer's Solution 1,000 ml @ 30 mls/hr Q24H IV Last administered on 06/12/18at 07:00; Start 06/12/18 at 07:00; Stop 06/12/18 at 18:59; Status DC Lidocaine HCl (Xylocaine-Mpf 1% 2ml Vial) 2 ml PRN 1X PRN ID IV START; Start at 07:00; Stop 06/13/18 at 06:59; Status DC Hydromorphone HCl (Dilaudid) 0.5 mg PRN Q10MIN PRN IV SEV PAIN, Second choice; Start 06/12/18 at 07:00; Stop 06/13/18 at 06:59; Status DC Prochlorperazine Edisylate (Compazine) 5 mg PACU PRN PRN IV NAUSEA, MRX1; Start 06/12/18 at 07:00; Stop 06/13/18 at 06:59; Status DC Dextrose (Dextrose 50%-Water Syringe) 25 gm STK-MED ONCE IV ; Start 06/11/18 at 14:00; Stop 06/12/18 at 08:16; Status DC Heparin Sodium (Porcine) (Heparin Sodium) 10,000 unit STK-MED ONCE .ROUTE ; Start 06/12/18 at 12:08; Stop 06/12/18 at 12:09; Status DC Cellulose (Surgicel Fibrillar 1x2) 1 each STK-MED ONCE .ROUTE ; Start 06/12/18 at 12:08; Stop 06/12/18 at 12:09; Status DC Protamine Sulfate (Protamine) 50 mg STK-MED ONCE IV ; Start 06/12/18 at 12:08; Stop 06/12/18 at 12:09; Status DC Propofol 20 ml @ As Directed STK-MED ONCE IV ; Start 06/12/18 at 12:17; Stop 06/12 at 12:18; Status DC Dexamethasone Sodium Phosphate (Decadron) 20 mg STK-MED ONCE .ROUTE ; Start 06/12 at 12:17; Stop 06/12/18 at 12:18; Status DC Famotidine (Pepcid Vial) 20 mg STK-MED ONCE .ROUTE ; Start 06/12/18 at 12:17; Stop 06/12/18 at 12:18; Status DC Lidocaine HCl (Lidocaine Pf 2% Vial) 5 ml STK-MED ONCE .ROUTE ; Start 06/12/18 at 12:17; Stop 06/12/18 at 12:18; Status DC Ondansetron HCl (Zofran) 4 mg STK-MED ONCE .ROUTE ; Start 06/12/18 at 12:17; Stop 06/12/18 at 12:18; Status DC Etomidate (Amidate) 20 mg STK-MED ONCE IV ; Start 06/12/18 at 12:17; Stop at 12:18; Status DC Sodium Chloride (SODIUM CHLORIDE 20ml) 20 ml STK-MED ONCE IJ ; Start 06/12/18 at 12:17; Stop 06/12/18 at 12:18; Status DC Ephedrine Sulfate (Akovaz) 50 mg STK-MED ONCE .ROUTE ; Start 06/12/18 at 12:17; Stop 06/12/18 at 12:18; Status DC Vecuronium [place]grim (Norcuron Bolus) 10 mg STK-MED ONCE IV ; Start 06/12/18 at 12: 17; Stop 06/12/18 at 12:18; Status DC Fentanyl Citrate (Fentanyl 2ml Vial) 100 mcg STK-MED ONCE .ROUTE ; Start at 12:17; Stop 06/12/18 at 12:18; Status DC Hydromorphone HCl (Dilaudid) 2 mg STK-MED ONCE .ROUTE ; Start 06/12/18 at 12:18; Stop 06/12/18 at 12:19; Status DC Vasopressin (Vasostrict) 20 unit STK-MED ONCE .ROUTE ; Start 06/12/18 at 12:18; Stop 06/12/18 at 12:19; Status Cancel Albumin Human 0 ml @ As Directed STK-MED ONCE IV ; Start 06/12/18 at 12:19; Stop 06/12/18 at 12:20; Status DC Cisatracurium Besylate (Nimbex) 20 mg STK-MED ONCE IV ; Start 06/12/18 at 12:20; Stop 06/12/18 at 12:21; Status DC Midazolam HCl (Versed) 2 mg STK-MED ONCE .ROUTE ; Start 06/12/18 at 12:30; Stop 06/12/18 at 12:31; Status DC Iodixanol (Visipaque 320) 100 ml STK-MED ONCE .ROUTE ; Start 06/12/18 at 12:55; Stop 06/12/18 at 12:56; Status DC Iodixanol (Visipaque 320) 50 ml STK-MED ONCE .ROUTE ; Start 06/12/18 at 12:56; Stop 06/12/18 at 12:57; Status DC Heparin Sodium/ Sodium Chloride 1,000 ml @ As Directed STK-MED ONCE .ROUTE ; Start 06/12/18 at 12:56; Stop 06/12/18 at 12:57; Status DC Sodium Chloride (SODIUM CHLORIDE 20ml) 20 ml STK-MED ONCE IJ ; Start 06/12/18 at 14:29; Stop 06/12/18 at 14:30; Status DC Cefazolin Sodium/ Dextrose 50 ml @ As Directed STK-MED ONCE IV ; Start 06/12/18 at 14:40; Stop 06/12/18 at 14:41; Status DC Bupivacaine HCl/ Epinephrine Bitart (Sensorcaine-Epi 0.25%-1:[id number] Mpf) 30 ml STK-MED ONCE .ROUTE Last administered on 06/12/18at 14:45; Start 06/12/18 at 14:41 ; Stop 06/12/18 at 14:42; Status DC Heparin Sodium (Porcine) (Heparin Sodium) 10,000 unit STK-MED ONCE .ROUTE ; Start 06/12/18 at 14:59; Stop 06/12/18 at 15:00; Status DC Heparin Sodium/ Sodium Chloride 500 ml @ As Directed STK-MED ONCE .ROUTE ; Start 06/12/18 at 15:00; Stop 06/12/18 at 15:01; Status DC Iodixanol (Visipaque 320) 100 ml STK-MED ONCE .ROUTE ; Start 06/12/18 at 15:13; Stop 06/12/18 at 15:14; Status DC Iodixanol (Visipaque 320) 250 ml 1X ONCE IV Last administered on 06/12/18at 15: 56; Start 06/12/18 at 15:30; Stop 06/12/18 at 15:36; Status DC Glycopyrrolate (Robinul) 1 mg STK-MED ONCE .ROUTE ; Start 06/12/18 at 15:33; Stop 06/12/18 at 15:34; Status DC Info (CONTRAST GIVEN -- Rx MONITORING) 1 each PRN DAILY PRN MC SEE COMMENTS; Start 06/12/18 at 15:45; Stop 06/14/18 at 15:44; Status DC Sevoflurane (Ultane) 90 ml STK-MED ONCE IH ; Start 06/12/18 at 15:53; Stop at 15:54; Status DC Throat Lozenges (Cepacol Sore Throat Lozenge) 1 fausto PRN Q2HRS PRN PO SORE THROAT; Start 06/13/18 at 11:15 Sodium Chloride 1,000 ml @ 1,000 mls/hr Q1H PRN IV hypotension; Start 06/13/18 at 11:57; Stop 06/13/18 at 17:56; Status DC Sodium Chloride 1,000 ml @ 400 mls/hr Q2H30M PRN IV PATENCY; Start 06/13/18 at 11:57; Stop 06/13/18 at 23:56; Status DC Info (PHARMACY MONITORING -- do not chart) 1 each PRN DAILY PRN MC SEE COMMENTS ; Start 06/13/18 at 12:00 Info (PHARMACY MONITORING -- do not chart) 1 each PRN DAILY PRN MC SEE COMMENTS ; Start 06/13/18 at 12:00; Status UNV Lidocaine HCl (Xylocaine-Mpf 1% 2ml Vial) 2 ml 1X ONCE INJ Last administered on 06/13/18at 12:16; Start 06/13/18 at 12:00; Stop 06/13/18 at 12:05; Status DC Dextrose (Dextrose 50%-Water Syringe) 25 gm STK-MED ONCE IV ; Start 06/14/18 at 04:37; Stop 06/14/18 at 04:38; Status DC Dextrose (Dextrose 50%-Water Syringe) 12.5 gm PRN Q15MIN PRN IV SEE COMMENTS Last administered on 06/14/18at 05:47; Start 06/14/18 at 05:15 Insulin Glargine (Lantus) 15 units QHS SQ ; Start 06/14/18 at 21:00 Sodium Chloride 1,000 ml @ 1,000 mls/hr Q1H PRN IV hypotension; Start 06/15/18 at 08:24; Stop 06/15/18 at 14:23 Sodium Chloride 1,000 ml @ 400 mls/hr Q2H30M PRN IV PATENCY; Start 06/15/18 at 08:24; Stop 06/15/18 at 20:23 Info (PHARMACY MONITORING -- do not chart) 1 each PRN DAILY PRN MC SEE COMMENTS ; Start 06/15/18 at 08:30; Stop 06/15/18 at 08:30; Status DC Lidocaine HCl (Xylocaine-Mpf 1% 2ml Vial) 2 ml STK-MED ONCE .ROUTE ; Start at 09:11; Stop 06/15/18 at 09:12; Status DC Darbepoetin Canelo (Aranesp) 60 mcg [id number] SQ ; Start 06/15/18 at 21:00 Active Scripts Active Amiodarone Hcl 200 Mg Tablet 200 Mg PO DAILY MDD 1 Eliquis (Apixaban) 5 Mg Tablet 5 Mg PO BID MDD ` [Albuterol Sulfate] 2.5 MG/3 ML Nebu 2.5 Mg NEB PRN Q4HRS PRN Reported Lipitor (Atorvastatin Calcium) 40 Mg Tablet 40 Mg PO HS Hydrocodone-Acetamin 5-325 mg (Hydrocodone/Acetaminophen) 1 Each Tablet 1 Each PO PRN Q6HRS PRN Furosemide 40 Mg Tablet 40 Mg PO DAILY Symbicort 160-4.5 Mcg Inhaler (Budesonide/Formoterol Fumarate) 10.2 Gm Hfa.aer.ad 2 Puff IH BID Toprol Xl (Metoprolol Succinate) 100 Mg Tab.er.24h 100 Mg PO DAILY Proair Hfa Inhaler (Albuterol Sulfate) 8.5 Gm Hfa.aer.ad 1 Puff INH PRN Q6HRS PRN Marina-Jayme Tablet (Folic Acid/Vitamin B Comp W-C) 0.8 Mg Tablet 0.8 Mg PO DAILY Hydroxyzine Hcl 25 Mg Tablet 50 Mg PO QMWF Lisinopril 20 Mg Tablet 1 Tab PO DAILY Lantus Solostar (Insulin Glargine,Hum.rec.anlog) 100 Unit/1 Ml Insuln.pen 30 Unit SQ QHS Aspirin 325 Mg Tablet 1 Tab PO DAILY Vitals/I & O Vital Sign - Last 24 Hours 06/14/18 06/14/18 06/14/18 06/14/18 12:00 12:11 16:00 19:31 Temp 98.4 97.9 98.4 97.9 Pulse 69 60 Resp 18 18 B/P (MAP) 136/58 (84) 143/52 (82) Pulse Ox 100 100 96 O2 Delivery Nasal Cannula Nasal Cannula Nasal Cannula Nasal Cannula O2 Flow Rate 3.0 2.0 3.0 3.0 06/14/18 06/14/18 06/15/18 06/15/18 20:00 20:00 00:00 04:00 Temp 98.2 97.9 98.0 98.2 97.9 98.0 Pulse 79 83 74 Resp 24 19 B/P (MAP) 150/63 (92) 149/57 (87) 136/55 (82) Pulse Ox 100 100 100 O2 Delivery Nasal Cannula Nasal Cannula Nasal Cannula Nasal Cannula O2 Flow Rate 3.0 3.0 3.0 3.0 06/15/18 06/15/18 06/15/18 08:00 08:00 08:18 Temp 97.9 97.9 Pulse 75 Resp 16 B/P (MAP) 148/67 (94) Pulse Ox 98 97 O2 Delivery Nasal Cannula Nasal Cannula Nasal Cannula O2 Flow Rate 3.0 3.0 2.0 Intake and Output 06/14/18 06/14/18 06/15/18 15:00 23:00 07:00 Intake Total 520 ml 220 ml 240 ml Balance 520 ml 220 ml 240 ml YULIA DE ANDA III DO Jun 15, 2018 11:37
--- NOTE | 2018-06-15 12:54 | PDOC ---
PROGRESS NOTES Subjective Subjective She admits groin area pain. Objective Objective Vital Signs Date Time Temp Pulse Resp B/P (MAP) Pulse Ox O2 Delivery O2 Flow Rate FiO2 06/15/18 08:18 97 Nasal Cannula 2.0 06/15/18 08:00 97.9 75 16 148/67 (94) 97.9 Intake and Output 06/15/18 07:00 Intake Total 980 ml Balance 980 ml Intake Oral 980 ml # Voids 1 Physical Exam Physical Exam She is alert,receiving hemodialysis now. She did walk for 60' with roller walker with physical therapy yesterday and physical therapy wants her to go to SNF for a short stay but patient wants to go home to be with her who has been recuperating from recent CVA. Plan Plan of Care Agree with plans for home with home health when medically stable. Comment Review of Relevant I have reviewed the following items mykel (where applicable) has been applied. Labs Laboratory Tests Test 06/13/18 17:55 06/13/18 21:33 06/14/18 04:34 06/14/18 04:40 Glucose (Fingerstick) 101 mg/dL (70-99) 233 mg/dL (70-99) 31 mg/dL (70-99) White Blood Count 9.9 x10^3/uL (4.0-11.0) Red Blood Count 3.09 x10^6/uL (3.50-5.40) Hemoglobin 9.6 g/dL (12.0-15.5) Hematocrit 31.0 % (36.0-47.0) Mean Corpuscular Volume 100 fL (79-100) Mean Corpuscular Hemoglobin 31 pg (25-35) Mean Corpuscular Hemoglobin Concent 31 g/dL (31-37) Red Cell Distribution Width 15.3 % (11.5-14.5) Platelet Count 193 x10^3/uL (140-400) Neutrophils (%) (Auto) 86 % (31-73) Lymphocytes (%) (Auto) 2 % (24-48) Monocytes (%) (Auto) 11 % (0-9) Eosinophils (%) (Auto) 0 % (0-3) Basophils (%) (Auto) 0 % (0-3) Neutrophils # (Auto) 8.5 x10^3uL (1.8-7.7) Lymphocytes # (Auto) 0.2 x10^3/uL (1.0-4.8) Monocytes # (Auto) 1.1 x10^3/uL (0.0-1.1) Eosinophils # (Auto) 0.0 x10^3/uL (0.0-0.7) Basophils # (Auto) 0.0 x10^3/uL (0.0-0.2) Sodium Level 141 mmol/L (136-145) Potassium Level 3.8 mmol/L (3.5-5.1) Chloride Level 103 mmol/L (98-107) Carbon Dioxide Level 32 mmol/L (21-32) Anion Gap 6 (6-14) Blood Urea Nitrogen 26 mg/dL (7-20) Creatinine 4.5 mg/dL (0.6-1.0) Estimated GFR (Cockcroft-Gault) 11.6 Glucose Level 91 mg/dL (70-99) Calcium Level 7.0 mg/dL (8.5-10.1) Test 06/14/18 04:45 06/14/18 05:45 06/14/18 06:05 06/14/18 06:39 Glucose (Fingerstick) 97 mg/dL (70-99) 53 mg/dL (70-99) 85 mg/dL (70-99) 91 mg/dL (70-99) Test 06/14/18 09:30 06/14/18 10:10 06/14/18 11:45 06/14/18 17:40 Glucose (Fingerstick) 60 mg/dL (70-99) 81 mg/dL (70-99) 74 mg/dL (70-99) 108 mg/dL (70-99) Test 06/14/18 20:57 06/15/18 05:28 06/15/18 05:50 06/15/18 08:02 Glucose (Fingerstick) 157 mg/dL (70-99) 74 mg/dL (70-99) 97 mg/dL (70-99) White Blood Count 7.7 x10^3/uL (4.0-11.0) Red Blood Count 2.73 x10^6/uL (3.50-5.40) Hemoglobin 8.8 g/dL (12.0-15.5) Hematocrit 27.4 % (36.0-47.0) Mean Corpuscular Volume 100 fL (79-100) Mean Corpuscular Hemoglobin 32 pg (25-35) Mean Corpuscular Hemoglobin Concent 32 g/dL (31-37) Red Cell Distribution Width 15.1 % (11.5-14.5) Platelet Count 163 x10^3/uL (140-400) Neutrophils (%) (Auto) 81 % (31-73) Lymphocytes (%) (Auto) 4 % (24-48) Monocytes (%) (Auto) 15 % (0-9) Eosinophils (%) (Auto) 1 % (0-3) Basophils (%) (Auto) 0 % (0-3) Neutrophils # (Auto) 6.2 x10^3uL (1.8-7.7) Lymphocytes # (Auto) 0.3 x10^3/uL (1.0-4.8) Monocytes # (Auto) 1.1 x10^3/uL (0.0-1.1) Eosinophils # (Auto) 0.0 x10^3/uL (0.0-0.7) Basophils # (Auto) 0.0 x10^3/uL (0.0-0.2) Sodium Level 140 mmol/L (136-145) Potassium Level 4.6 mmol/L (3.5-5.1) Chloride Level 102 mmol/L (98-107) Carbon Dioxide Level 30 mmol/L (21-32) Anion Gap 8 (6-14) Blood Urea Nitrogen 46 mg/dL (7-20) Creatinine 6.4 mg/dL (0.6-1.0) Estimated GFR (Cockcroft-Gault) 7.7 Glucose Level 74 mg/dL (70-99) Calcium Level 7.0 mg/dL (8.5-10.1) Laboratory Tests Test 06/14/18 17:40 06/14/18 20:57 06/15/18 05:28 06/15/18 05:50 Glucose (Fingerstick) 108 mg/dL (70-99) 157 mg/dL (70-99) 74 mg/dL (70-99) White Blood Count 7.7 x10^3/uL (4.0-11.0) Red Blood Count 2.73 x10^6/uL (3.50-5.40) Hemoglobin 8.8 g/dL (12.0-15.5) Hematocrit 27.4 % (36.0-47.0) Mean Corpuscular Volume 100 fL (79-100) Mean Corpuscular Hemoglobin 32 pg (25-35) Mean Corpuscular Hemoglobin Concent 32 g/dL (31-37) Red Cell Distribution Width 15.1 % (11.5-14.5) Platelet Count 163 x10^3/uL (140-400) Neutrophils (%) (Auto) 81 % (31-73) Lymphocytes (%) (Auto) 4 % (24-48) Monocytes (%) (Auto) 15 % (0-9) Eosinophils (%) (Auto) 1 % (0-3) Basophils (%) (Auto) 0 % (0-3) Neutrophils # (Auto) 6.2 x10^3uL (1.8-7.7) Lymphocytes # (Auto) 0.3 x10^3/uL (1.0-4.8) Monocytes # (Auto) 1.1 x10^3/uL (0.0-1.1) Eosinophils # (Auto) 0.0 x10^3/uL (0.0-0.7) Basophils # (Auto) 0.0 x10^3/uL (0.0-0.2) Sodium Level 140 mmol/L (136-145) Potassium Level 4.6 mmol/L (3.5-5.1) Chloride Level 102 mmol/L (98-107) Carbon Dioxide Level 30 mmol/L (21-32) Anion Gap 8 (6-14) Blood Urea Nitrogen 46 mg/dL (7-20) Creatinine 6.4 mg/dL (0.6-1.0) Estimated GFR (Cockcroft-Gault) 7.7 Glucose Level 74 mg/dL (70-99) Calcium Level 7.0 mg/dL (8.5-10.1) Test 06/15/18 08:02 Glucose (Fingerstick) 97 mg/dL (70-99) Medications Current Medications Sodium Chloride 1,000 ml @ 100 mls/hr Q10H IV Last administered on 06/07/18at 19:56; Start 06/07/18 at 19:18; Stop 06/08/18 at 05:17; Status DC Ondansetron HCl (Zofran) 4 mg PRN Q8HRS PRN IV NAUSEA/VOMITING 1ST CHOICE; Start 06/07/18 at 21:00; Stop 06/08/18 at 20:59; Status DC Morphine Sulfate (Morphine Sulfate) 2 mg PRN Q2HR PRN IV SEVERE PAIN; Start at 21:00; Stop 06/08/18 at 06:39; Status DC Morphine Sulfate (Morphine Sulfate) 2 mg PRN Q2HR PRN IV SEVERE PAIN; Start 06/08/18 at 06:39; Stop 06/08/18 at 20:59; Status DC Amiodarone HCl (Cordarone) 200 mg DAILY PO Last administered on 06/14/18 10:00 ; Start 06/08/18 at 12:00 Apixaban (Eliquis) 5 mg BID PO ; Start 06/08/18 at 12:00; Stop 06/08/18 at 15:30; Status DC Aspirin (Hung Aspirin) 325 mg DAILY PO Last administered on 06/14/18 10:00; Start 06/08/18 at 12:00 Atorvastatin Calcium (Lipitor) 40 mg HS PO Last administered on 06/14/18 20:56 ; Start 06/08/18 at 21:00 Furosemide (Lasix) 40 mg DAILY PO Last administered on 06/14/18 09:59; Start at 12:00 Acetaminophen/ Hydrocodone Bitart (Lortab 5/325) 1 tab PRN Q6HRS PRN PO back pain Last administered on 06/13/18 16:07; Start 06/08/18 at 11:30 Insulin Glargine (Lantus) 30 units QHS SQ Last administered on 06/13/18 21:35; Start 06/08/18 at 21:00; Stop 06/14/18 at 11:49; Status DC Lisinopril (Prinivil) 20 mg DAILY PO Last administered on 06/10/18 09:08; Start 06/08/18 at 12:00 Metoprolol Succinate (Toprol Xl) 100 mg DAILY PO Last administered on 06/10/18 12:07; Start 06/08/18 at 12:00 Non-Formulary Medication (Budesonide/ Formoterol Fumarate (Symbicort 160-4.5 Mcg Inhaler)) 2 puff BID IH ; Start 06/08/18 at 21:00; Status UNV Diltiazem HCl (Cardizem 24hr Cd) 180 mg DAILY PO Last administered on 06/14/18at 10:05; Start 06/08/18 at 12:00 Hydroxyzine Pamoate (Vistaril) 50 mg QMWF PO Last administered on 06/13/18at 18: 00; Start 06/08/18 at 16:00 Non-Formulary Medication ([Albuterol Sulfate] ) 2.5 mg PRN Q4HRS PRN NEB SHORTNESS OF BREATH; Start 06/08/18 at 11:30; Status UNV Budesonide (Pulmicort) 0.5 mg RTBID NEB Last administered on 06/15/18at 08:18; Start 06/08/18 at 12:00 Albuterol Sulfate (Ventolin Neb Soln) 2.5 mg RTQID NEB Last administered on 06/15at 08:18; Start 06/08/18 at 12:00 Albuterol Sulfate (Ventolin Neb Soln) 2.5 mg PRN Q4HRS PRN NEB SHORTNESS OF BREATH; Start 06/08/18 at 11:30 Sodium Chloride 1,000 ml @ 1,000 mls/hr Q1H PRN IV hypotension; Start 06/08/18 at 12:22; Stop 06/08/18 at 18:21; Status DC Diphenhydramine HCl (Benadryl) 25 mg 1X PRN PRN IV ITCHING; Start 06/08/18 at 12 :30; Stop 06/09/18 at 12:29; Status DC Diphenhydramine HCl (Benadryl) 25 mg 1X PRN PRN IV ITCHING; Start 06/08/18 at 12 :30; Stop 06/09/18 at 12:29; Status DC Sodium Chloride 1,000 ml @ 400 mls/hr Q2H30M PRN IV PATENCY; Start 06/08/18 at 12:22; Stop 06/09/18 at 00:21; Status DC Info (PHARMACY MONITORING -- do not chart) 1 each PRN DAILY PRN MC SEE COMMENTS ; Start 06/08/18 at 12:30; Status Cancel Prednisone (Prednisone) 20 mg 1X ONCE PO Last administered on 06/08/18at 18:04; Start 06/08/18 at 18:00; Stop 06/08/18 at 18:01; Status DC Prednisone (Prednisone) 20 mg 1X ONCE PO Last administered on 06/08/18at 21:12; Start 06/08/18 at 22:00; Stop 06/08/18 at 22:01; Status DC Prednisone (Prednisone) 20 mg 1X ONCE PO Last administered on 06/09/18at 06:15; Start 06/09/18 at 06:00; Stop 06/09/18 at 06:01; Status DC Diphenhydramine HCl (Benadryl) 50 mg PRN 1X PRN PO COMMENTS Last administered on 06/09/18at 08:04; Start 06/08/18 at 14:45; Stop 06/09/18 at 14:44; Status DC Enoxaparin Sodium (Lovenox Per Pharmacy Treatment Dosing) 1 each PRN DAILY PRN MC SEE COMMENTS; Start 06/08/18 at 15:30; Status Cancel Iohexol (Omnipaque 350 Mg/ml) 90 ml 1X ONCE IV Last administered on 06/09/18at 08:56; Start 06/09/18 at 09:00; Stop 06/09/18 at 09:01; Status DC Info (CONTRAST GIVEN -- Rx MONITORING) 1 each PRN DAILY PRN MC SEE COMMENTS; Start 06/09/18 at 09:00; Stop 06/11/18 at 08:59; Status DC Diclofenac Sodium (Voltaren) 1 evgeny BID TP Last administered on 06/14/18at 20:56; Start 06/09/18 at 13:30 Heparin Sodium/ Dextrose 500 ml @ 0 mls/hr CONT PRN IV SEE I/O RECORD Last administered on 06/10/18at 12:14; Start 06/10/18 at 11:45; Stop 06/11/18 at 02:46; Status DC Heparin Sodium (Porcine) (Heparin Sodium) 1,700 unit PRN Q6HRS PRN IV FOR UFH LEVEL LESS THAN 0.2; Start 06/10/18 at 11:45; Stop 06/12/18 at 12:24; Status DC Info (Anti-Coagulation Monitoring By Pharmacy) 1 each PRN DAILY PRN MC SEE COMMENTS Last administered on 06/11/18at 16:33; Start 06/10/18 at 11:45; Stop at 11:01; Status DC Sodium Chloride 250 ml @ 500 mls/hr 1X ONCE IV Last administered on 06/11/18at 03:00; Start 06/11/18 at 03:00; Stop 06/11/18 at 03:29; Status DC Dopamine HCl/ Dextrose 250 ml @ 5.19 mls/hr CONT PRN IV SEE I/O RECORD; Start 06/11/18 at 03:00; Stop 06/12/18 at 12:24; Status DC Ondansetron HCl (Zofran) 4 mg PRN Q6HRS PRN IV NAUSEA/VOMITING 1ST CHOICE Last administered on 06/11/18at 04:51; Start 06/11/18 at 03:15 Morphine Sulfate (Morphine Sulfate) 2 mg PRN Q4HRS PRN IV SEVERE PAIN; Start at 03:15; Stop 06/11/18 at 10:41; Status DC Sodium Chloride 250 ml @ 500 mls/hr 1X ONCE IV Last administered on 06/11/18at 03:30; Start 06/11/18 at 03:30; Stop 06/11/18 at 03:59; Status DC Iohexol (Omnipaque 350 Mg/ml) 90 ml 1X ONCE IV Last administered on 06/11/18 04:02; Start 06/11/18 at 04:00; Stop 06/11/18 at 04:01; Status DC Diphenhydramine HCl (Benadryl) 25 mg 1X ONCE IV Last administered on 06/11/18at 04:15; Start 06/11/18 at 04:00; Stop 06/11/18 at 04:01; Status DC Info (CONTRAST GIVEN -- Rx MONITORING) 1 each PRN DAILY PRN MC SEE COMMENTS; Start 06/11/18 at 03:30; Stop 06/12/18 at 15:36; Status DC Heparin Sodium/ Dextrose 500 ml @ 0 mls/hr CONT PRN IV SEE I/O RECORD Last administered on 06/11/18at 05:01; Start 06/11/18 at 04:30; Stop 06/12/18 at 12:24; Status DC Morphine Sulfate (Morphine Sulfate) 2 mg PRN Q2HR PRN IV SEVERE PAIN Last administered on 06/11/18at 04:51; Start 06/11/18 at 04:30; Stop 06/12/18 at 12:24; Status DC Morphine Sulfate (Morphine Sulfate) 1 mg PRN Q2HR PRN IV MODERATE PAIN; Start 06/11/18 at 04:30; Stop 06/12/18 at 12:24; Status DC Iodixanol (Visipaque 320) 100 ml STK-MED ONCE .ROUTE ; Start 06/11/18 at 10:44; Stop 06/11/18 at 10:45; Status DC Lidocaine HCl (Xylocaine-Mpf 1% 2ml Vial) 2 ml STK-MED ONCE .ROUTE ; Start at 10:44; Stop 06/11/18 at 10:45; Status DC Heparin Sodium/ Sodium Chloride 1,000 ml @ As Directed STK-MED ONCE .ROUTE ; Start 06/11/18 at 10:45; Stop 06/11/18 at 10:46; Status DC Heparin Sodium (Porcine) 5000 unit/Sodium Chloride 505 ml @ 505 mls/hr 1X ONCE IRR Last administered on 06/12/18at 14:45; Start 06/12/18 at 06:00; Stop 06/12 at 06:59; Status DC Cefazolin Sodium 1 gm/Sodium Chloride 500 ml @ 500 mls/hr 1X ONCE IRR Last administered on 06/12/18at 14:45; Start 06/12/18 at 06:00; Stop 06/12/18 at 06:59; Status DC Lidocaine HCl (Lidocaine 1% 20ml Vial) 20 ml STK-MED ONCE .ROUTE ; Start at 10:59; Stop 06/11/18 at 11:00; Status DC Methylprednisolone Sodium Succinate (SOLU-Medrol 125MG VIAL) 125 mg STK-MED ONCE .ROUTE ; Start 06/11/18 at 11:06; Stop 06/11/18 at 11:07; Status DC Fentanyl Citrate (Fentanyl 2ml Vial) 100 mcg STK-MED ONCE .ROUTE ; Start at 11:06; Stop 06/11/18 at 11:07; Status DC Midazolam HCl (Versed) 2 mg STK-MED ONCE .ROUTE ; Start 06/11/18 at 11:06; Stop 06/11/18 at 11:07; Status DC Famotidine (Pepcid Vial) 20 mg STK-MED ONCE .ROUTE ; Start 06/11/18 at 11:06; Stop 06/11/18 at 11:07; Status DC Diphenhydramine HCl (Benadryl) 50 mg STK-MED ONCE .ROUTE ; Start 06/11/18 at 11: 06; Stop 06/11/18 at 11:07; Status DC Heparin Sodium/ Sodium Chloride (HEPARIN for ARTERIAL LINE FLUSH) 1,000 unit 1X ONCE IART Last administered on 06/11/18 11:42; Start 06/11/18 at 11:45; Stop 06/11/18 at 11:46; Status DC Iodixanol (Visipaque 320) 104 ml 1X ONCE IART Last administered on 06/11/18 11 :42; Start 06/11/18 at 11:45; Stop 06/11/18 at 11:46; Status DC Lidocaine HCl (Lidocaine 1% 20ml Vial) 15 ml 1X ONCE INJ Last administered on 06/11/18 11:43; Start 06/11/18 at 11:45; Stop 06/11/18 at 11:46; Status DC Diphenhydramine HCl (Benadryl) 25 mg 1X ONCE IVP Last administered on 11:43; Start 06/11/18 at 11:45; Stop 06/11/18 at 11:46; Status DC Methylprednisolone Sodium Succinate (SOLU-Medrol 125MG VIAL) 125 mg 1X ONCE IV Last administered on 06/11/18 11:43; Start 06/11/18 at 11:45; Stop 06/11/18 at 11:46; Status DC Famotidine (Pepcid Vial) 20 mg 1X ONCE IVP Last administered on 06/11/18 11:18 ; Start 06/11/18 at 11:45; Stop 06/11/18 at 11:46; Status DC Sodium Chloride (Normal Saline Flush) 3 ml QSHIFT PRN IV AFTER MEDS AND BLOOD DRAWS; Start 06/11/18 at 12:45 Sodium Chloride 1,000 ml @ 1,000 mls/hr Q1H PRN IV hypotension; Start 06/11/18 at 13:48; Stop 06/11/18 at 19:47; Status DC Albumin Human 200 ml @ 200 mls/hr 1X PRN PRN IV Hypotension; Start 06/11/18 at 14:00; Stop 06/11/18 at 19:59; Status DC Sodium Chloride 1,000 ml @ 400 mls/hr Q2H30M PRN IV PATENCY; Start 06/11/18 at 13:48; Stop 06/12/18 at 01:47; Status DC Info (PHARMACY MONITORING -- do not chart) 1 each PRN DAILY PRN MC SEE COMMENTS ; Start 06/11/18 at 14:00; Stop 06/11/18 at 14:00; Status DC Info (PHARMACY MONITORING -- do not chart) 1 each PRN DAILY PRN MC SEE COMMENTS ; Start 06/11/18 at 14:00; Stop 06/11/18 at 14:00; Status DC Dextrose (Dextrose 50%-Water Syringe) 25 gm STK-MED ONCE IV ; Start 06/11/18 at 14:08; Stop 06/11/18 at 14:12; Status DC Prednisone (Prednisone) 20 mg 1X ONCE PO Last administered on 06/11/18at 23:35; Start 06/11/18 at 21:00; Stop 06/11/18 at 21:01; Status DC Prednisone (Prednisone) 20 mg 1X ONCE PO ; Start 06/12/18 at 09:00; Stop at 09:01; Status DC Cefazolin Sodium/ Dextrose 50 ml @ 100 mls/hr 1X ONCE IV ; Start 06/12/18 at 12 :00; Stop 06/12/18 at 12:29; Status DC Ondansetron HCl (Zofran) 4 mg PRN Q6HRS PRN IV NAUSEA/VOMITING; Start 06/12/18 at 07:00; Stop 06/13/18 at 06:59; Status DC Fentanyl Citrate (Fentanyl 2ml Vial) 25 mcg PRN Q5MIN PRN IV MILD PAIN; Start 06/12/18 at 07:00; Stop 06/13/18 at 06:59; Status DC Fentanyl Citrate (Fentanyl 2ml Vial) 50 mcg PRN Q5MIN PRN IV MODERATE TO SEVERE PAIN; Start 06/12/18 at 07:00; Stop 06/13/18 at 06:59; Status DC Morphine Sulfate (Morphine Sulfate) 1 mg PRN Q10MIN PRN IV SEVERE PAIN; Start 06/12/18 at 07:00; Stop 06/12/18 at 12:24; Status DC Ringer's Solution 1,000 ml @ 30 mls/hr Q24H IV Last administered on 06/12/18at 07:00; Start 06/12/18 at 07:00; Stop 06/12/18 at 18:59; Status DC Lidocaine HCl (Xylocaine-Mpf 1% 2ml Vial) 2 ml PRN 1X PRN ID IV START; Start at 07:00; Stop 06/13/18 at 06:59; Status DC Hydromorphone HCl (Dilaudid) 0.5 mg PRN Q10MIN PRN IV SEV PAIN, Second choice; Start 06/12/18 at 07:00; Stop 06/13/18 at 06:59; Status DC Prochlorperazine Edisylate (Compazine) 5 mg PACU PRN PRN IV NAUSEA, MRX1; Start 06/12/18 at 07:00; Stop 06/13/18 at 06:59; Status DC Dextrose (Dextrose 50%-Water Syringe) 25 gm STK-MED ONCE IV ; Start 06/11/18 at 14:00; Stop 06/12/18 at 08:16; Status DC Heparin Sodium (Porcine) (Heparin Sodium) 10,000 unit STK-MED ONCE .ROUTE ; Start 06/12/18 at 12:08; Stop 06/12/18 at 12:09; Status DC Cellulose (Surgicel Fibrillar 1x2) 1 each STK-MED ONCE .ROUTE ; Start 06/12/18 at 12:08; Stop 06/12/18 at 12:09; Status DC Protamine Sulfate (Protamine) 50 mg STK-MED ONCE IV ; Start 06/12/18 at 12:08; Stop 06/12/18 at 12:09; Status DC Propofol 20 ml @ As Directed STK-MED ONCE IV ; Start 06/12/18 at 12:17; Stop 06/12 at 12:18; Status DC Dexamethasone Sodium Phosphate (Decadron) 20 mg STK-MED ONCE .ROUTE ; Start 06/12 at 12:17; Stop 06/12/18 at 12:18; Status DC Famotidine (Pepcid Vial) 20 mg STK-MED ONCE .ROUTE ; Start 06/12/18 at 12:17; Stop 06/12/18 at 12:18; Status DC Lidocaine HCl (Lidocaine Pf 2% Vial) 5 ml STK-MED ONCE .ROUTE ; Start 06/12/18 at 12:17; Stop 06/12/18 at 12:18; Status DC Ondansetron HCl (Zofran) 4 mg STK-MED ONCE .ROUTE ; Start 06/12/18 at 12:17; Stop 06/12/18 at 12:18; Status DC Etomidate (Amidate) 20 mg STK-MED ONCE IV ; Start 06/12/18 at 12:17; Stop at 12:18; Status DC Sodium Chloride (SODIUM CHLORIDE 20ml) 20 ml STK-MED ONCE IJ ; Start 06/12/18 at 12:17; Stop 06/12/18 at 12:18; Status DC Ephedrine Sulfate (Akovaz) 50 mg STK-MED ONCE .ROUTE ; Start 06/12/18 at 12:17; Stop 06/12/18 at 12:18; Status DC Vecuronium Brothers (Norcuron Bolus) 10 mg STK-MED ONCE IV ; Start 06/12/18 at 12: 17; Stop 06/12/18 at 12:18; Status DC Fentanyl Citrate (Fentanyl 2ml Vial) 100 mcg STK-MED ONCE .ROUTE ; Start at 12:17; Stop 06/12/18 at 12:18; Status DC Hydromorphone HCl (Dilaudid) 2 mg STK-MED ONCE .ROUTE ; Start 06/12/18 at 12:18; Stop 06/12/18 at 12:19; Status DC Vasopressin (Vasostrict) 20 unit STK-MED ONCE .ROUTE ; Start 06/12/18 at 12:18; Stop 06/12/18 at 12:19; Status Cancel Albumin Human 0 ml @ As Directed STK-MED ONCE IV ; Start 06/12/18 at 12:19; Stop 06/12/18 at 12:20; Status DC Cisatracurium Besylate (Nimbex) 20 mg STK-MED ONCE IV ; Start 06/12/18 at 12:20; Stop 06/12/18 at 12:21; Status DC Midazolam HCl (Versed) 2 mg STK-MED ONCE .ROUTE ; Start 06/12/18 at 12:30; Stop 06/12/18 at 12:31; Status DC Iodixanol (Visipaque 320) 100 ml STK-MED ONCE .ROUTE ; Start 06/12/18 at 12:55; Stop 06/12/18 at 12:56; Status DC Iodixanol (Visipaque 320) 50 ml STK-MED ONCE .ROUTE ; Start 06/12/18 at 12:56; Stop 06/12/18 at 12:57; Status DC Heparin Sodium/ Sodium Chloride 1,000 ml @ As Directed STK-MED ONCE .ROUTE ; Start 06/12/18 at 12:56; Stop 06/12/18 at 12:57; Status DC Sodium Chloride (SODIUM CHLORIDE 20ml) 20 ml STK-MED ONCE IJ ; Start 06/12/18 at 14:29; Stop 06/12/18 at 14:30; Status DC Cefazolin Sodium/ Dextrose 50 ml @ As Directed STK-MED ONCE IV ; Start 06/12/18 at 14:40; Stop 06/12/18 at 14:41; Status DC Bupivacaine HCl/ Epinephrine Bitart (Sensorcaine-Epi 0.25%-1:[id number] Mpf) 30 ml STK-MED ONCE .ROUTE Last administered on 06/12/18at 14:45; Start 06/12/18 at 14:41 ; Stop 06/12/18 at 14:42; Status DC Heparin Sodium (Porcine) (Heparin Sodium) 10,000 unit STK-MED ONCE .ROUTE ; Start 06/12/18 at 14:59; Stop 06/12/18 at 15:00; Status DC Heparin Sodium/ Sodium Chloride 500 ml @ As Directed STK-MED ONCE .ROUTE ; Start 06/12/18 at 15:00; Stop 06/12/18 at 15:01; Status DC Iodixanol (Visipaque 320) 100 ml STK-MED ONCE .ROUTE ; Start 06/12/18 at 15:13; Stop 06/12/18 at 15:14; Status DC Iodixanol (Visipaque 320) 250 ml 1X ONCE IV Last administered on 06/12/18at 15: 56; Start 06/12/18 at 15:30; Stop 06/12/18 at 15:36; Status DC Glycopyrrolate (Robinul) 1 mg STK-MED ONCE .ROUTE ; Start 06/12/18 at 15:33; Stop 06/12/18 at 15:34; Status DC Info (CONTRAST GIVEN -- Rx MONITORING) 1 each PRN DAILY PRN MC SEE COMMENTS; Start 06/12/18 at 15:45; Stop 06/14/18 at 15:44; Status DC Sevoflurane (Ultane) 90 ml STK-MED ONCE IH ; Start 06/12/18 at 15:53; Stop at 15:54; Status DC Throat Lozenges (Cepacol Sore Throat Lozenge) 1 fausto PRN Q2HRS PRN PO SORE THROAT; Start 06/13/18 at 11:15 Sodium Chloride 1,000 ml @ 1,000 mls/hr Q1H PRN IV hypotension; Start 06/13/18 at 11:57; Stop 06/13/18 at 17:56; Status DC Sodium Chloride 1,000 ml @ 400 mls/hr Q2H30M PRN IV PATENCY; Start 06/13/18 at 11:57; Stop 06/13/18 at 23:56; Status DC Info (PHARMACY MONITORING -- do not chart) 1 each PRN DAILY PRN MC SEE COMMENTS ; Start 06/13/18 at 12:00 Info (PHARMACY MONITORING -- do not chart) 1 each PRN DAILY PRN MC SEE COMMENTS ; Start 06/13/18 at 12:00; Status UNV Lidocaine HCl (Xylocaine-Mpf 1% 2ml Vial) 2 ml 1X ONCE INJ Last administered on 06/13/18at 12:16; Start 06/13/18 at 12:00; Stop 06/13/18 at 12:05; Status DC Dextrose (Dextrose 50%-Water Syringe) 25 gm STK-MED ONCE IV ; Start 06/14/18 at 04:37; Stop 06/14/18 at 04:38; Status DC Dextrose (Dextrose 50%-Water Syringe) 12.5 gm PRN Q15MIN PRN IV SEE COMMENTS Last administered on 06/14/18at 05:47; Start 06/14/18 at 05:15 Insulin Glargine (Lantus) 15 units QHS SQ ; Start 06/14/18 at 21:00 Sodium Chloride 1,000 ml @ 1,000 mls/hr Q1H PRN IV hypotension; Start 06/15/18 at 08:24; Stop 06/15/18 at 14:23 Sodium Chloride 1,000 ml @ 400 mls/hr Q2H30M PRN IV PATENCY; Start 06/15/18 at 08:24; Stop 06/15/18 at 20:23 Info (PHARMACY MONITORING -- do not chart) 1 each PRN DAILY PRN MC SEE COMMENTS ; Start 06/15/18 at 08:30; Stop 06/15/18 at 08:30; Status DC Lidocaine HCl (Xylocaine-Mpf 1% 2ml Vial) 2 ml STK-MED ONCE .ROUTE ; Start at 09:11; Stop 06/15/18 at 09:12; Status DC Darbepoetin Canelo (Aranesp) 60 mcg WEEKLYHS SQ ; Start 06/15/18 at 21:00 Active Scripts Active Amiodarone Hcl 200 Mg Tablet 200 Mg PO DAILY MDD 1 Eliquis (Apixaban) 5 Mg Tablet 5 Mg PO BID MDD ` [Albuterol Sulfate] 2.5 MG/3 ML Nebu 2.5 Mg NEB PRN Q4HRS PRN Reported Lipitor (Atorvastatin Calcium) 40 Mg Tablet 40 Mg PO HS Hydrocodone-Acetamin 5-325 mg (Hydrocodone/Acetaminophen) 1 Each Tablet 1 Each PO PRN Q6HRS PRN Furosemide 40 Mg Tablet 40 Mg PO DAILY Symbicort 160-4.5 Mcg Inhaler (Budesonide/Formoterol Fumarate) 10.2 Gm Hfa.aer.ad 2 Puff IH BID Toprol Xl (Metoprolol Succinate) 100 Mg Tab.er.24h 100 Mg PO DAILY Proair Hfa Inhaler (Albuterol Sulfate) 8.5 Gm Hfa.aer.ad 1 Puff INH PRN Q6HRS PRN Marina-Jayme Tablet (Folic Acid/Vitamin B Comp W-C) 0.8 Mg Tablet 0.8 Mg PO DAILY Hydroxyzine Hcl 25 Mg Tablet 50 Mg PO QMWF Lisinopril 20 Mg Tablet 1 Tab PO DAILY Lantus Solostar (Insulin Glargine,Hum.rec.anlog) 100 Unit/1 Ml Insuln.pen 30 Unit SQ QHS Aspirin 325 Mg Tablet 1 Tab PO DAILY Vitals/I & O Vital Sign - Last 24 Hours 3/706/14/18 06/14/18 06/14/18 16:00 19:31 20:00 20:00 Temp 97.9 98.2 97.9 98.2 Pulse 60 79 Resp 18 24 B/P (MAP) 143/52 (82) 150/63 (92) Pulse Ox 100 96 100 O2 Delivery Nasal Cannula Nasal Cannula Nasal Cannula Nasal Cannula O2 Flow Rate 3.0 3.0 3.0 3.0 06/15/18 06/15/18 06/15/18 06/15/18 00:00 04:00 08:00 08:00 Temp 97.9 98.0 97.9 97.9 98.0 97.9 Pulse 83 74 75 Resp 19 16 B/P (MAP) 149/57 (87) 136/55 (82) 148/67 (94) Pulse Ox 100 100 98 O2 Delivery Nasal Cannula Nasal Cannula Nasal Cannula Nasal Cannula O2 Flow Rate 3.0 3.0 3.0 3.0 06/15/18 08:18 Pulse Ox 97 O2 Delivery Nasal Cannula O2 Flow Rate 2.0 Intake and Output 06/14/18 06/14/18 06/15/18 15:00 23:00 07:00 Intake Total 520 ml 220 ml 240 ml Balance 520 ml 220 ml 240 ml DEVIN JOHNSON MD Jun 15, 2018 12:54
[2018-06-15] MEDS: ASPIRIN 325 MG TABLET PO SCH (13:52)
[2018-06-15] MEDS: AMIODARONE HCL 200 MG TABLET. PO SCH (13:58)
[2018-06-15] MEDS: FUROSEMIDE 40 MG TABLET. PO SCH (13:58)
[2018-06-15] MEDS: DICLOFENAC SODIUM 1% TOPICAL GEL 100GM TUBE. TP SCH (13:59)
[2018-06-15] MEDS: LISINOPRIL 20 MG TABLET PO SCH (13:59)
[2018-06-15 14:00] VITALS: BP 161/67
--- NOTE | 2018-06-15 14:10 | DS ---
DATE OF DISCHARGE: 06/15/2018 ADMISSION DIAGNOSIS: Abdominal aortic aneurysm. DISCHARGE DIAGNOSES: 1. Postop day #3, bilateral percutaneous access and closure for delivery of endograft (12-Italian sheath). 2. Endovascular repair of abdominal aortic aneurysm using bifurcated device. 3. History of vasculopathy. 4. Coronary artery disease, congestive heart failure. 5. Chronic obstructive pulmonary disease. 6. Diabetes, hypertension, hyperlipidemia. 7. End-stage renal disease, on dialysis. 8. Previous cardiac catheterization with stents. 9. Rotator cuff surgery, AV grafting, cataract surgery. CONSULTS: Ken German MD. PROCEDURES: AAA endograft. HOSPITAL COURSE: The patient is a pleasant elderly female who basically presented with AAA. She was seen by her primary care doctor. They did an outpatient CAT scan, which showed AAA bigger than 6 cm. We admitted the patient. We consulted Nephrology to continue her dialysis. We also consulted Vascular Surgery. She went for an endograft procedure 2 days ago. Today, she looks great. I saw and examined her on dialysis. Her heart tones were normal. Her lungs were clear. She was smiling. We plan to discharge with home health. DISPOSITION: Home with home health. ACTIVITY: As tolerated. DIET: Low sodium. MEDICATIONS: Please see the MRAD. TOTAL TIME: 39 minutes. YULIA DE ANDA DO DR: MAGO/courtney JOB#: [id number] / [id number]
--- NOTE | 2018-06-15 15:25 | NUR ---
SS following up with discharge planning. Discharge orders received for home healthcare. Pt and family requested referral be sent to [facility], ; fax [phone]. SS phoned and faxed discharge orders and home healthcare referral to [facility].
[2018-06-15] MEDS ORDERED: IRON POLYSACCHARIDE COMPLEX 150 MG CAPSULE PO SCH (21:00)
[2018-06-15] MEDS ORDERED: DARBEPOETIN ALFA 60 MCG/0.3 ML DISP.SYRIN. SQ SCH (21:00)
== END 2018-06-15 15:30 | disposition home health service (06) | DRG 268 ==
LOC: ER 17:58 → 2 SOUTH 20:46 → 1 WEST ICU 06-11 04:22
PROVIDERS: ADMIT Family Medicine; ATTEND Family Medicine
PROC: 4A023N7 Measurement of Cardiac Sampling and Pressure, Left Heart, Percutaneous Approach (ICD-10-PCS; 2018-06-07)
PROC: B2111ZZ Fluoroscopy of Multiple Coronary Arteries using Low Osmolar Contrast (ICD-10-PCS; 2018-06-07)
PROC: B2151ZZ Fluoroscopy of Left Heart using Low Osmolar Contrast (ICD-10-PCS; 2018-06-07)
PROC: 5A1D70Z Performance of Urinary Filtration, Intermittent, Less than 6 Hours Per Day (ICD-10-PCS; 2018-06-08)
PROC: 5A1D70Z Performance of Urinary Filtration, Intermittent, Less than 6 Hours Per Day (ICD-10-PCS; 2018-06-11)
PROC: 04V03D6 (ICD-10-PCS; principal; 2018-06-12 13:00)
PROC: 5A1D70Z Performance of Urinary Filtration, Intermittent, Less than 6 Hours Per Day (ICD-10-PCS; 2018-06-13)
PROC: 5A1D70Z Performance of Urinary Filtration, Intermittent, Less than 6 Hours Per Day (ICD-10-PCS; 2018-06-15)
DX: I71.4 Abdominal aortic aneurysm, without rupture (principal); N18.6 End stage renal disease; T82.855A Stenosis of coronary artery stent, initial encounter; I13.2 Hypertensive heart and chronic kidney disease with heart failure and with stage 5 chronic kidney disease, or end stage renal disease; I42.0 Dilated cardiomyopathy; I50.32 Chronic diastolic (congestive) heart failure; J96.10 Chronic respiratory failure, unspecified whether with hypoxia or hypercapnia; N25.81 Secondary hyperparathyroidism of renal origin; K57.90 Diverticulosis of intestine, part unspecified, without perforation or abscess without bleeding; F41.9 Anxiety disorder, unspecified; E21.3 Hyperparathyroidism, unspecified; D63.1 Anemia in chronic kidney disease; E11.21 Type 2 diabetes mellitus with diabetic nephropathy; E11.22 Type 2 diabetes mellitus with diabetic chronic kidney disease; E87.5 Hyperkalemia; E78.5 Hyperlipidemia, unspecified; E78.00 Pure hypercholesterolemia, unspecified; E11.42 Type 2 diabetes mellitus with diabetic polyneuropathy; F17.201 Nicotine dependence, unspecified, in remission; G47.33 Obstructive sleep apnea (adult) (pediatric); G89.29 Other chronic pain; I25.10 Atherosclerotic heart disease of native coronary artery without angina pectoris; I48.0 Paroxysmal atrial fibrillation; J44.9 Chronic obstructive pulmonary disease, unspecified; M51.36 Other intervertebral disc degeneration, lumbar region; Y83.1 Surgical operation with implant of artificial internal device as the cause of abnormal reaction of the patient, or of later complication, without mention of misadventure at the time of the procedure; Z82.49 Family history of ischemic heart disease and other diseases of the circulatory system; Z79.01 Long term (current) use of anticoagulants; Z79.899 Other long term (current) drug therapy; Z83.3 Family history of diabetes mellitus; Z86.718 Personal history of other venous thrombosis and embolism; Z86.73 Personal history of transient ischemic attack (TIA), and cerebral infarction without residual deficits; Z86.79 Personal history of other diseases of the circulatory system; Z90.49 Acquired absence of other specified parts of digestive tract; Z91.041 Radiographic dye allergy status; Z99.2 Dependence on renal dialysis; Z99.81 Dependence on supplemental oxygen; I25.2 Old myocardial infarction
CPT/HCPCS: 36415; 51701; 71045; 74174; 80048; 82962; 84484; 85007; 85025; 85520; 85610; 86850; 86900; 86901; 86920; 87641; 93005; 93306; 93458; 93880; 94640; 94760; 99152; 99153; A7015; C1725; C1753; C1760; C1769; C1887; C1892; C1894; G0269; J0690; J0696; J0881; J1100; J1170; J1200; J1644; J1815; J2001; J2250; J2270; J2405; J2704; J2930; J3010; J3490; J7030; J7040; J7042; J7120; J7512; J7613; J7626; P9045; Q0163; Q0177; Q9967; 99285-25; C1771

== ENCOUNTER 2018-06-22 21:18 | Inpatient (IN) | payer MEDICARE ==
[~2018-06-22] VITALS: Ht 154.9 cm; Wt 73.0 kg
[~2018-06-22 21:18] MED LIST changes: +ATOR40TA PO; +BUDE10.2 IH; +DILT180C29 PO; +HYDR-2759 PO
--- NOTE | 2018-06-22 21:37 | PHYS DOC ---
Past Medical History Past Medical History: CAD, CHF, COPD, Diabetes-Type II, DVT, High Cholesterol, Hypertension, RI, Renal Disease, Renal Failure, Other Additional Past Medical Histor: dialysis MWF, O2 3LNC @ home, CPAP Past Surgical History: Angioplasty, Other Additional Past Surgical Histo: cardiac cath with stent placement, rotator cuff surgery,AV graft, cataract Alcohol Use: None Drug Use: None Adult General Chief Complaint Chief Complaint: SHORTNESS OF BREATH HPI HPI Patient is a 72 year old female who presents with generalized weakness. She was called by her primary care team today for blood work that was done Monday, and was told to present to the ER because her blood count was low. Patient notes that she's been having black stools. She is on blood thinning agents, Plavix. She denies any chest pains or palpitations. Denies any nausea or vomiting.[] Review of Systems Review of Systems Constitutional: Denies fever or chills [] Eyes: Denies change in visual acuity, redness, or eye pain [] HENT: Denies nasal congestion or sore throat [] Respiratory: Denies cough or shortness of breath [] Cardiovascular: No chest pain or palpitations[] GI: See history of present illness[] : Denies dysuria or hematuria [] Musculoskeletal: Denies back pain or joint pain [] Integument: Denies rash or skin lesions [] Neurologic: Denies headache, focal weakness or sensory changes [] Endocrine: Denies polyuria or polydipsia [] All other systems were reviewed and found to be within normal limits, except as documented in this note. Current Medications Current Medications Current Medications Medications (Trade) Dose Ordered Sig/Eric Start Time Stop Time Status Last Admin Dose Admin Pantoprazole Sodium (PROTONIX VIAL for IV PUSH) 80 mg 1X ONCE 06/22/18 22:00 06/22/18 22:01 DC 06/22/18 22:08 80 MG Allergies Allergies Allergies Coded Allergies Type Severity Reaction Last Updated Verified Iodinated Contrast- Oral and IV Dye Allergy Intermediate 11/06/17 Yes Physical Exam Physical Exam Constitutional: Well developed, well nourished, no acute distress, non-toxic appearance. [] HENT: Normocephalic, atraumatic, bilateral external ears normal, oropharynx moist, no oral exudates, nose normal. [] Eyes: PERRLA, EOMI, conjunctiva normal, no discharge. [] Neck: Normal range of motion, no tenderness, supple, no stridor. [] Cardiovascular:Heart rate regular rhythm, no murmur [] Lungs & Thorax: Bilateral breath sounds clear to auscultation [] Abdomen: Bowel sounds normal, soft, no tenderness, no masses, no pulsatile masses. Rectal exam performed with laboratory scientist present, black stool was obtained and was sent to the laboratory for further analysis[] Skin: Warm, dry, no erythema, no rash. [] Back: No tenderness, no CVA tenderness. [] Extremities: No tenderness, no cyanosis, no clubbing, ROM intact, no edema. [] Neurologic: Alert and oriented X 3, normal motor function, normal sensory function, no focal deficits noted. [] Psychologic: Affect normal, judgement normal, mood normal. [] Current Patient Data Lab Values Laboratory Tests Test 06/22/18 21:30 06/22/18 21:48 Stool Occult Blood Positive (NEG) White Blood Count 7.3 x10^3/uL (4.0-11.0) Red Blood Count 1.78 x10^6/uL (3.50-5.40) L Hemoglobin 5.7 g/dL (12.0-15.5) *L Hematocrit 17.9 % (36.0-47.0) *L Mean Corpuscular Volume 101 fL (79-100) H Mean Corpuscular Hemoglobin 32 pg (25-35) Mean Corpuscular Hemoglobin Concent 32 g/dL (31-37) Red Cell Distribution Width 14.2 % (11.5-14.5) Platelet Count 310 x10^3/uL (140-400) Neutrophils (%) (Auto) 80 % (31-73) H Lymphocytes (%) (Auto) 8 % (24-48) L Monocytes (%) (Auto) 11 % (0-9) H Eosinophils (%) (Auto) 1 % (0-3) Basophils (%) (Auto) 0 % (0-3) Neutrophils # (Auto) 5.8 x10^3uL (1.8-7.7) Lymphocytes # (Auto) 0.6 x10^3/uL (1.0-4.8) L Monocytes # (Auto) 0.8 x10^3/uL (0.0-1.1) Eosinophils # (Auto) 0.1 x10^3/uL (0.0-0.7) Basophils # (Auto) 0.0 x10^3/uL (0.0-0.2) Prothrombin Time 13.1 SEC (11.7-14.0) Prothrombin Time INR 1.0 (0.8-1.1) Sodium Level 144 mmol/L (136-145) Potassium Level 3.8 mmol/L (3.5-5.1) Chloride Level 108 mmol/L (98-107) H Carbon Dioxide Level 25 mmol/L (21-32) Anion Gap 11 (6-14) Blood Urea Nitrogen 14 mg/dL (7-20) Creatinine 3.0 mg/dL (0.6-1.0) H Estimated GFR (Cockcroft-Gault) 18.5 BUN/Creatinine Ratio 5 (6-20) L Glucose Level 153 mg/dL (70-99) H Calcium Level 8.4 mg/dL (8.5-10.1) L Total Bilirubin 0.4 mg/dL (0.2-1.0) Aspartate Amino Transferase (AST) 18 U/L (15-37) Alanine Aminotransferase (ALT) 9 U/L (14-59) L Alkaline Phosphatase 77 U/L (46-116) Total Protein 6.1 g/dL (6.4-8.2) L Albumin 2.3 g/dL (3.4-5.0) L Albumin/Globulin Ratio 0.6 (1.0-1.7) L Laboratory Tests 06/22/18 21:48 Laboratory Tests 06/22/18 21:48 EKG EKG EKG shows a sinus rhythm at 93 bpm, left axis deviation, right bundle-branch block, QTC of 510 ms, no ST elevations, when compared with EKG of 06/11/2018, the heart rate has increased since she was sinus bradycardia at 39 bpm on June 11. This was interpreted by me at 2149[] Radiology/Procedures Radiology/Procedures Chest x-ray shows no subdiaphragmatic free air, no infiltrate, no acute changes when compared with chest x-ray of 06/12/2018 KUB shows no free air, what appears to be a AAA endograft in place.[] Course & Med Decision Making Course & Med Decision Making Pertinent Labs and Imaging studies reviewed. (See chart for details) ED course: Patient arrived, was placed in bed, and tolerated exam well. As noted above rectal exam was performed with laboratory scientist present. She was given IV Protonix due to the GI bleed. She was typed and screened initially for blood and typed and crossed for 2 units of packed red cells. Consultation was made with the hospitalist for admission. Lab and imaging findings were discussed with patient and family who voiced understanding. All questions were answered. Patient was admitted in improved condition Medical decision making: Patient appears to have a upper GI bleed. There is no active hemorrhage.[] Dragon Disclaimer Dragon Disclaimer This electronic medical record was generated, in whole or in part, using a voice recognition dictation system. Departure Departure Impression: Primary Impression: GI bleed Additional Impression: Anemia Disposition: 01 HOME, SELF-CARE Admitting Physician: Andriy Brito Condition: IMPROVED Referrals: BERTO TORRES MD (PCP) Problem Qualifiers Primary Impression: GI bleed GI bleed type/associated pathology: unspecified gastrointestinal hemorrhage type Qualified Codes: K92.2 - Gastrointestinal hemorrhage, unspecified Additional Impression: Anemia Anemia type: unspecified type Qualified Codes: D64.9 - Anemia, unspecified VERO FERNANDEZ DO Jun 22, 2018 21:37
[2018-06-22 21:58] LABS: BASO % 0 % (0-3); EOS # 0.1 x10^3/uL (0.0-0.7); EOS % 1 % (0-3); LYMPH # 0.6 x10^3/uL (1.0-4.8); LYMPH % 8 % (24-48); MEAN CORPUSCULAR HEMOGLOBIN 32 pg (25-35); MEAN CORPUSCULAR HGB CONC 32 g/dL (31-37); MEAN CORPUSCULAR VOLUME 101 fL (79-100); MONO # 0.8 x10^3/uL (0.0-1.1); MONO % 11 % (0-9); NEUT # 5.8 x10^3uL (1.8-7.7); NEUT % 80 % (31-73); PLATELET COUNT 310 x10^3/uL (140-400); RED BLOOD COUNT 1.78 x10^6/uL (3.50-5.40); RED CELL DISTRIBUTION WIDTH 14.2 % (11.5-14.5); WHITE BLOOD COUNT 7.3 x10^3/uL (4.0-11.0)
[2018-06-22 22:00] LABS: HEMATOCRIT 17.9 % (36.0-47.0); HEMOGLOBIN 5.7 g/dL (12.0-15.5)
[2018-06-22] MEDS ORDERED: PANTOPRAZOLE IV PUSH 40 MG VIAL. IVP ONE (22:00)
[2018-06-22 22:02] LABS: FECAL OB PT POSITIVE (NEG)
[2018-06-22 22:02] LABS: CALCIUM 8.4 mg/dL (8.5-10.1); GFR 18.5; POTASSIUM 3.8 mmol/L (3.5-5.1)
[2018-06-22 22:08] LABS: ALBUMIN 2.3 g/dL (3.4-5.0); ALBUMIN/GLOBULIN RATIO 0.6 (1.0-1.7); TOTAL BILIRUBIN 0.4 mg/dL (0.2-1.0); TOTAL PROTEIN 6.1 g/dL (6.4-8.2)
[2018-06-22 22:09] LABS: PROTHROMBIN TIME PATIENT 13.1 SEC (11.7-14.0)
[2018-06-22 23:15] VITALS: BP 149/100
--- NOTE | 2018-06-22 23:15 | NUR ---
Admission: The patient, WANDA PRABHAKAR, 72 y/o, F admitted by SUDHEER ROBLES MD, was given written information regarding hospital policies, unit procedures and contact persons. Patient was transported from ED to room 410 via wheelchair. RN performed a head to toe assessment at that time, VSS, and afebrile. Bed in lowest locked position and call light within reach. Valuables were checked and left in the room with patient. RN will continue to monitor closely.
[2018-06-23] VITALS (18 sets, daily range): BP systolic 114–160; BP diastolic 37–100
--- NOTE | 2018-06-23 05:05 | RAD ---
Indication:WEAKNESS, GI BLEED TECHNIQUE:Supine AP view of the abdomen and pelvis COMPARISON: None FINDINGS: Visualized lung bases are clear. Aortobiiliac stent grafts noted. No abnormally dilated bowel loops. No apparent pneumoperitoneum. Visualized bones are within normal limits. IMPRESSION: No acute radiographic findings. Electronically signed by: Ihsan Pagan DO (06/23/2018 5:03 AM) [facility]
--- NOTE | 2018-06-23 05:07 | RAD ---
Indication:WEAKNESS TECHNIQUE:Portable AP chest X-ray COMPARISON:06/12/2018 FINDINGS: Heart is mildly enlarged in size. Blunting of the left costophrenic angle is seen. Lungs are hyperinflated. No pneumothorax visualized bony thorax within normal limits. IMPRESSION: Findings of COPD with superimposed atypical/viral infection not ruled out. Blunting of the left costophrenic angle, stable images secondary to small left pleural effusion. Electronically signed by: Ihsan Pagan DO (06/23/2018 5:04 AM) [facility]
[2018-06-23] MEDS ORDERED: NON FORMULARY ITEM ([Albuterol Sulfate] 2.5 MG) NEB PRN (08:45)
[2018-06-23] MEDS ORDERED: ALBUTEROL SULFATE 2.5 MG/3 ML NEBU. INH PRN (08:45)
[2018-06-23] MEDS ORDERED: ACETAMINOPHEN/CODEINE 300/30MG TABLET. PO PRN (08:45)
[2018-06-23] MEDS ORDERED: ONDANSETRON ODT 4 MG TAB.RAPDIS. PO PRN (08:45)
[2018-06-23] MEDS ORDERED: ONDANSETRON PF 4 MG/2 ML VIAL. IV PRN (08:45)
[2018-06-23] MEDS ORDERED: ACETAMINOPHEN 500 MG TABLET PO PRN (08:45)
[2018-06-23] MEDS ORDERED: NON FORMULARY ITEM (Budesonide/Formoterol Fumarate (Symbicort 160-4.5 Mcg Inhaler) 2 PUFF) IH SCH (09:00)
[2018-06-23] MEDS ORDERED: ALBUTEROL SULFATE 2.5 MG/3 ML NEBU. NEB PRN (09:15)
--- NOTE | 2018-06-23 10:41 | PDOC1 ---
History and Physical Date of Admission Date of Admission DATE: 06/23/18 TIME: 10:36 Identification/Chief Complaint Chief Complaint Black stools Source Source: Caregiver, Chart review, Patient History of Present Illness History of Present Illness 72-year-old -[place] female who lives at home with , uases cane and walker at home, several comorbidities including COPD, CHF, CAD, DVT, diabetes, CVA hx on Plavix and aspirin 325 at home for cardiac and DVT issues and history of CVA. Comes in because of few day history (3D) of black stools. Went to PCP, PCP told her hemoglobin was low and advised ER. At ER hemoglobin 5.7, getting her third pack RBC. Creatinine 3.0 which is the best, she was previously 7, looking at her old admits. Again she has not of comorbidities namely heart, kidneys, diabetes, history of DVT and CVA with no residuals. This is the first time she is getting blood, she had an EGD some 10 years ago she cannot recall the reason her the results. Hemodynamically stable. She does get lightheaded or dizzy prior to admission on ambulation. She feels fine currently. Past Medical History Cardiovascular: AFIB, CAD, CHF, HTN, Hyperlipidemia, Other Pulmonary: Asthma, COPD, Other CENTRAL NERVOUS SYSTEM: Other GI: Diverticulosis Heme/Onc: Anemia NOS Psych: Anxiety Rheumatologic: No pertinent hx Infectious disease: No pertinent hx Renal/: Chronic renal failure Endocrine: Diabetes, Hyperparathyroidism Past Surgical History Past Surgical History: Appendectomy, Arthroscopy, Cataract Removal, Other Family History Family History: Coronary Artery Disease, Diabetes, Hypertension Social History Smoke: No ALCOHOL: none Drugs: None Current Medications Current Medications Current Medications Pantoprazole Sodium (PROTONIX VIAL for IV PUSH) 80 mg 1X ONCE IVP Last administered on 06/22/18at 22:08; Start 06/22/18 at 22:00; Stop 06/22/18 at 22:01 ; Status DC Acetaminophen (Tylenol) 500 mg PRN Q6HRS PRN PO MILD PAIN / TEMP; Start at 08:45 Acetaminophen/ Codeine Phosphate (Tylenol #3) 1 tab PRN Q6HRS PRN PO PAIN MODERATE; Start 06/23/18 at 08:45 Ondansetron HCl (Zofran) 4 mg PRN Q6HRS PRN IV NAUSEA/VOMITING; Start 06/23/18 at 08:45 Ondansetron HCl (Zofran Odt) 4 mg PRN Q6HRS PRN PO NAUSEA/VOMITING FIRST CHOICE ; Start 06/23/18 at 08:45 Insulin Human Lispro (HumaLOG) 0-7 UNITS TIDWMEALS SQ ; Start 06/23/18 at 12:00 Dextrose (Dextrose 50%-Water Syringe) 12.5 gm PRN Q15MIN PRN IV SEE COMMENTS; Start 06/23/18 at 08:45 Albuterol Sulfate (Ventolin Neb Soln) 2.5 mg PRN Q6HRS PRN INH SHORTNESS OF BREATH; Start 06/23/18 at 08:45; Stop 06/23/18 at 09:15; Status DC Amiodarone HCl (Cordarone) 200 mg DAILY PO ; Start 06/23/18 at 09:00 Atorvastatin Calcium (Lipitor) 40 mg HS PO ; Start 06/23/18 at 21:00 Vitamin B Complex/ Vitamin C (Marina-Jayme) 1 tab DAILY PO ; Start 06/23/18 at 09: 00 Furosemide (Lasix) 40 mg DAILY PO ; Start 06/23/18 at 09:00 Acetaminophen/ Hydrocodone Bitart (Lortab 5/325) 1 tab PRN Q6HRS PRN PO BACK PAIN MODERATE TO SEVERE; Start 06/23/18 at 08:45 Insulin Glargine (Lantus) 15 units QHS SQ ; Start 06/23/18 at 21:00 Lisinopril (Prinivil) 20 mg DAILY PO ; Start 06/23/18 at 09:00 Metoprolol Succinate (Toprol Xl) 100 mg DAILY PO ; Start 06/23/18 at 09:00 Non-Formulary Medication (Budesonide/ Formoterol Fumarate (Symbicort 160-4.5 Mcg Inhaler)) 2 puff BID IH ; Start 06/23/18 at 09:00; Status UNV Diltiazem HCl (Cardizem 24hr Cd) 180 mg DAILY PO ; Start 06/24/18 at 10:00 Hydroxyzine Pamoate (Vistaril) 50 mg QMWF PO ; Start 06/25/18 at 16:00 Non-Formulary Medication ([Albuterol Sulfate] ) 2.5 mg PRN Q4HRS PRN NEB SHORTNESS OF BREATH; Start 06/23/18 at 08:45; Status UNV Albuterol Sulfate (Ventolin Neb Soln) 2.5 mg RTQID NEB ; Start 06/23/18 at 12:00 Budesonide (Pulmicort) 0.5 mg RTBID NEB ; Start 06/23/18 at 20:00 Albuterol Sulfate (Ventolin Neb Soln) 2.5 mg PRN Q4HRS PRN NEB SHORTNESS OF BREATH; Start 06/23/18 at 09:15 Active Scripts Active Amiodarone Hcl 200 Mg Tablet 200 Mg PO DAILY MDD 1 Eliquis (Apixaban) 5 Mg Tablet 5 Mg PO BID MDD ` [Albuterol Sulfate] 2.5 MG/3 ML Nebu 2.5 Mg NEB PRN Q4HRS PRN Reported Diltiazem 24HR Cd (Diltiazem Hcl) 180 Mg Cap.er.24h 180 Mg PO DAILY Lipitor (Atorvastatin Calcium) 40 Mg Tablet 40 Mg PO HS Hydrocodone-Acetamin 5-325 mg (Hydrocodone/Acetaminophen) 1 Each Tablet 1 Each PO PRN Q6HRS PRN Furosemide 40 Mg Tablet 40 Mg PO DAILY Symbicort 160-4.5 Mcg Inhaler (Budesonide/Formoterol Fumarate) 10.2 Gm Hfa.aer.ad 2 Puff IH BID Toprol Xl (Metoprolol Succinate) 100 Mg Tab.er.24h 100 Mg PO DAILY Proair Hfa Inhaler (Albuterol Sulfate) 8.5 Gm Hfa.aer.ad 1 Puff INH PRN Q6HRS PRN Marina-Jayme Tablet (Folic Acid/Vitamin B Comp W-C) 0.8 Mg Tablet 0.8 Mg PO DAILY Hydroxyzine Hcl 25 Mg Tablet 50 Mg PO QMWF Lisinopril 20 Mg Tablet 1 Tab PO DAILY Lantus Solostar (Insulin Glargine,Hum.rec.anlog) 100 Unit/1 Ml Insuln.pen 15 Unit SQ QHS Aspirin 325 Mg Tablet 1 Tab PO DAILY Allergies Allergies: Coded Allergies: Iodinated Contrast- Oral and IV Dye (Verified Allergy, Intermediate, ) ROS Review of System As per history of present illness, the rest of ROS 14 point negative Physical Exam General: No acute distress HEENT: Atraumatic, PERRLA, EOMI, Other (pale palpebral conjunctivae) Lungs: Clear to auscultation, Normal air movement Heart: S1S2, RRR, no thrills, no rubs, no gallops, no murmurs Cardiovascular: S1, S2 Breasts: Normal, Rt breast nml w/o mass, Lt breast nml w/o mass, Nipples normal Abdomen: Normal bowel sounds, Soft, No tenderness, No hepatosplenomegaly, No masses Rectal Exam: not examined PELVIC: Nml ext genitalia Extremities: No clubbing, No cyanosis, No edema, Normal pulses, No tenderness/ swelling Skin: No rashes, No breakdown, No significant lesion Neuro: Normal gait, Normal speech, Strength at 5/5 X4 ext, Normal tone, Sensation intact, Cranial nerves 3-12 NL, Reflexes 2+ Psych/Mental Status: Mental status NL, Mood NL Vitals Vitals Vital Signs Date Time Temp Pulse Resp B/P (MAP) Pulse Ox O2 Delivery O2 Flow Rate FiO2 06/23/18 10:00 98.2 86 16 148/59 98.2 06/23/18 07:00 100 Nasal Cannula 3.0 Labs Labs Laboratory Tests Test 06/22/18 21:30 06/22/18 21:48 06/22/18 23:56 06/23/18 07:34 Stool Occult Blood Positive (NEG) White Blood Count 7.3 x10^3/uL (4.0-11.0) Red Blood Count 1.78 x10^6/uL (3.50-5.40) Hemoglobin 5.7 g/dL (12.0-15.5) Hematocrit 17.9 % (36.0-47.0) Mean Corpuscular Volume 101 fL (79-100) Mean Corpuscular Hemoglobin 32 pg (25-35) Mean Corpuscular Hemoglobin Concent 32 g/dL (31-37) Red Cell Distribution Width 14.2 % (11.5-14.5) Platelet Count 310 x10^3/uL (140-400) Neutrophils (%) (Auto) 80 % (31-73) Lymphocytes (%) (Auto) 8 % (24-48) Monocytes (%) (Auto) 11 % (0-9) Eosinophils (%) (Auto) 1 % (0-3) Basophils (%) (Auto) 0 % (0-3) Neutrophils # (Auto) 5.8 x10^3uL (1.8-7.7) Lymphocytes # (Auto) 0.6 x10^3/uL (1.0-4.8) Monocytes # (Auto) 0.8 x10^3/uL (0.0-1.1) Eosinophils # (Auto) 0.1 x10^3/uL (0.0-0.7) Basophils # (Auto) 0.0 x10^3/uL (0.0-0.2) Prothrombin Time 13.1 SEC (11.7-14.0) Prothromb Time International Ratio 1.0 (0.8-1.1) Sodium Level 144 mmol/L (136-145) Potassium Level 3.8 mmol/L (3.5-5.1) Chloride Level 108 mmol/L (98-107) Carbon Dioxide Level 25 mmol/L (21-32) Anion Gap 11 (6-14) Blood Urea Nitrogen 14 mg/dL (7-20) Creatinine 3.0 mg/dL (0.6-1.0) Estimated GFR (Cockcroft-Gault) 18.5 BUN/Creatinine Ratio 5 (6-20) Glucose Level 153 mg/dL (70-99) Calcium Level 8.4 mg/dL (8.5-10.1) Total Bilirubin 0.4 mg/dL (0.2-1.0) Aspartate Amino Transf (AST/SGOT) 18 U/L (15-37) Alanine Aminotransferase (ALT/SGPT) 9 U/L (14-59) Alkaline Phosphatase 77 U/L (46-116) Total Protein 6.1 g/dL (6.4-8.2) Albumin 2.3 g/dL (3.4-5.0) Albumin/Globulin Ratio 0.6 (1.0-1.7) Glucose (Fingerstick) 139 mg/dL (70-99) 80 mg/dL (70-99) Test 06/23/18 09:57 Glucose (Fingerstick) 104 mg/dL (70-99) Laboratory Tests Test 06/22/18 21:30 06/22/18 21:48 06/22/18 23:56 06/23/18 07:34 Stool Occult Blood Positive (NEG) White Blood Count 7.3 x10^3/uL (4.0-11.0) Red Blood Count 1.78 x10^6/uL (3.50-5.40) Hemoglobin 5.7 g/dL (12.0-15.5) Hematocrit 17.9 % (36.0-47.0) Mean Corpuscular Volume 101 fL (79-100) Mean Corpuscular Hemoglobin 32 pg (25-35) Mean Corpuscular Hemoglobin Concent 32 g/dL (31-37) Red Cell Distribution Width 14.2 % (11.5-14.5) Platelet Count 310 x10^3/uL (140-400) Neutrophils (%) (Auto) 80 % (31-73) Lymphocytes (%) (Auto) 8 % (24-48) Monocytes (%) (Auto) 11 % (0-9) Eosinophils (%) (Auto) 1 % (0-3) Basophils (%) (Auto) 0 % (0-3) Neutrophils # (Auto) 5.8 x10^3uL (1.8-7.7) Lymphocytes # (Auto) 0.6 x10^3/uL (1.0-4.8) Monocytes # (Auto) 0.8 x10^3/uL (0.0-1.1) Eosinophils # (Auto) 0.1 x10^3/uL (0.0-0.7) Basophils # (Auto) 0.0 x10^3/uL (0.0-0.2) Prothrombin Time 13.1 SEC (11.7-14.0) Prothromb Time International Ratio 1.0 (0.8-1.1) Sodium Level 144 mmol/L (136-145) Potassium Level 3.8 mmol/L (3.5-5.1) Chloride Level 108 mmol/L (98-107) Carbon Dioxide Level 25 mmol/L (21-32) Anion Gap 11 (6-14) Blood Urea Nitrogen 14 mg/dL (7-20) Creatinine 3.0 mg/dL (0.6-1.0) Estimated GFR (Cockcroft-Gault) 18.5 BUN/Creatinine Ratio 5 (6-20) Glucose Level 153 mg/dL (70-99) Calcium Level 8.4 mg/dL (8.5-10.1) Total Bilirubin 0.4 mg/dL (0.2-1.0) Aspartate Amino Transf (AST/SGOT) 18 U/L (15-37) Alanine Aminotransferase (ALT/SGPT) 9 U/L (14-59) Alkaline Phosphatase 77 U/L (46-116) Total Protein 6.1 g/dL (6.4-8.2) Albumin 2.3 g/dL (3.4-5.0) Albumin/Globulin Ratio 0.6 (1.0-1.7) Glucose (Fingerstick) 139 mg/dL (70-99) 80 mg/dL (70-99) Test 06/23/18 09:57 Glucose (Fingerstick) 104 mg/dL (70-99) VTE Prophylaxis Ordered VTE Prophylaxis Devices: Contraindicated VTE Pharmacological Prophylaxi: Contraindicated Assessment/Plan Assessment/Plan Acute precipitous drop hemoglobin, hgb 5.7 on admit Melena 3 days History of EGD 10 years ago with unrecalled results CVA with no residual History CAD, CHF, DVT-on aspirin 325 and Plavix prior to admission Diabetes type 2 COPD, O2 dependent?-Chronic stable Mild to moderate PCM CK D possibly stage 3-4 PLAN: Admit 2 midnights Clear liquid diet for now Consult GI PPI started I have reconciled home meds Avoid nephrotoxins Hold Plavix and aspirin Repeat H&H after transfusion and tomorrow AM labs PT/OT CARMELA TAYLOR MD Jun 23, 2018 10:41
[2018-06-23] MEDS: METOPROLOL SUCC 24HR ER 100 MG TAB.ER.24H. PO SCH (11:14)
[2018-06-23] MEDS: FUROSEMIDE 40 MG TABLET. PO SCH (11:14)
[2018-06-23] MEDS: FOLIC/VIT B COMP W-C (RENAL) TABLET. PO SCH (11:14)
[2018-06-23] MEDS: LISINOPRIL 20 MG TABLET PO SCH (11:15)
[2018-06-23] MEDS: AMIODARONE HCL 200 MG TABLET. PO SCH (11:15)
[2018-06-23 11:35] LABS: HEMATOCRIT 24.9 % (36.0-47.0); HEMOGLOBIN 8.1 g/dL (12.0-15.5)
[2018-06-23] MEDS: ALBUTEROL SULFATE 2.5 MG/3 ML NEBU. NEB SCH ×3 (11:43→20:02)
[2018-06-23] MEDS: INSULIN LISPRO 300 UNITS/3 ML INSULN.PEN. SQ SCH ×2 (12:00→17:00)
--- NOTE | 2018-06-23 12:50 | NUR ---
Pt hgb is 8.1 after two units of RBC's given. paged. Waiting on GI. No new orders.
--- NOTE | 2018-06-23 13:41 | PDOC2 ---
GI CONSULT Reason For Consult: anemia HPI: HPI: 72-year-old -[place] female with PMH suspected mesenteric ischemia on Plavix and aspirin 325 at home for cardiac and DVT issues and history of CVA. Comes in because of few day history (3D) of black stools. Went to PCP who told her hemoglobin was low and advised ER. At ER hemoglobin 5.7, Received 3 untis PRBCs with Hgb 8.1. Baseline Hgb on 06/16/2018 was 8.8. .Creatinine 3.0 which is the best, she was previously 7, looking at her old admits. Again she has not of comorbidities namely heart, kidneys, diabetes, history of DVT and CVA with no residuals. CTA 06/11/2018 with wall thickening of the ascending colon and hepatic flexure suggestive of colitis. The previously described inflammatory changes of the sigmoid colon have improved. CTA 06/09/2018 with Moderate wall thickening of the sigmoid colon without surrounding inflammation. She has never had a colonoscopy and has a reported history hiatal hernia on remote EGD. PMH: PMH: PMH: PMH: ESRD on HD MWF, CAD w/ stents on Plavix and aspirin, ND, CHF, HTN, HLD, DM, h/o UE DVT, pulmonary hypertension, COPD, OA, hiatal hernia, GERD, anemia of chronic disease, anxiety, rotator cuff surgery, appendectomy 01/2016 for abd pain thought to be 2/2 ischemia. FH: Family History: No pertinent hx Social History: Smoke: Quit ALCOHOL: none Drugs: None Meds Active Scripts Active Amiodarone Hcl 200 Mg Tablet 200 Mg PO DAILY MDD 1 Eliquis (Apixaban) 5 Mg Tablet 5 Mg PO BID MDD ` [Albuterol Sulfate] 2.5 MG/3 ML Nebu 2.5 Mg NEB PRN Q4HRS PRN Reported Diltiazem 24HR Cd (Diltiazem Hcl) 180 Mg Cap.er.24h 180 Mg PO DAILY Lipitor (Atorvastatin Calcium) 40 Mg Tablet 40 Mg PO HS Hydrocodone-Acetamin 5-325 mg (Hydrocodone/Acetaminophen) 1 Each Tablet 1 Each PO PRN Q6HRS PRN Furosemide 40 Mg Tablet 40 Mg PO DAILY Symbicort 160-4.5 Mcg Inhaler (Budesonide/Formoterol Fumarate) 10.2 Gm Hfa.aer.ad 2 Puff IH BID Toprol Xl (Metoprolol Succinate) 100 Mg Tab.er.24h 100 Mg PO DAILY Proair Hfa Inhaler (Albuterol Sulfate) 8.5 Gm Hfa.aer.ad 1 Puff INH PRN Q6HRS PRN Marina-Jayme Tablet (Folic Acid/Vitamin B Comp W-C) 0.8 Mg Tablet 0.8 Mg PO DAILY Hydroxyzine Hcl 25 Mg Tablet 50 Mg PO QMWF Lisinopril 20 Mg Tablet 1 Tab PO DAILY Lantus Solostar (Insulin Glargine,Hum.rec.anlog) 100 Unit/1 Ml Insuln.pen 15 Unit SQ QHS Aspirin 325 Mg Tablet 1 Tab PO DAILY Allergies Allergies: Coded Allergies: Iodinated Contrast- Oral and IV Dye (Verified Allergy, Intermediate, ) FH: Family History: No pertinent hx Social History: Smoke: No ALCOHOL: none Drugs: None ROS: GEN: Denies fevers, chills, sweats HEENT: Denies blurred vision, sore throat CV: Denies chest pain RESP: Denies shortness of air, cough GI: Per HPI : Denies hematuria, dysuria ENDO: Denies weight changes NEURO: Denies confusion, dizziness MSK: Denies weakness, joint pain/swelling SKIN: Denies jaundice, pruritus VItals: Vitals: Vital Signs Date Time Temp Pulse Resp B/P (MAP) Pulse Ox O2 Delivery O2 Flow Rate FiO2 06/23/18 11:50 Nasal Cannula 2.0 06/23/18 11:15 86 148/59 06/23/18 11:00 97.9 16 97.9 06/23/18 07:00 100 Labs: Labs: Laboratory Tests Test 06/22/18 21:30 06/22/18 21:48 06/22/18 23:56 06/23/18 07:34 Stool Occult Blood Positive (NEG) White Blood Count 7.3 x10^3/uL (4.0-11.0) Red Blood Count 1.78 x10^6/uL (3.50-5.40) Hemoglobin 5.7 g/dL (12.0-15.5) Hematocrit 17.9 % (36.0-47.0) Mean Corpuscular Volume 101 fL (79-100) Mean Corpuscular Hemoglobin 32 pg (25-35) Mean Corpuscular Hemoglobin Concent 32 g/dL (31-37) Red Cell Distribution Width 14.2 % (11.5-14.5) Platelet Count 310 x10^3/uL (140-400) Neutrophils (%) (Auto) 80 % (31-73) Lymphocytes (%) (Auto) 8 % (24-48) Monocytes (%) (Auto) 11 % (0-9) Eosinophils (%) (Auto) 1 % (0-3) Basophils (%) (Auto) 0 % (0-3) Neutrophils # (Auto) 5.8 x10^3uL (1.8-7.7) Lymphocytes # (Auto) 0.6 x10^3/uL (1.0-4.8) Monocytes # (Auto) 0.8 x10^3/uL (0.0-1.1) Eosinophils # (Auto) 0.1 x10^3/uL (0.0-0.7) Basophils # (Auto) 0.0 x10^3/uL (0.0-0.2) Prothrombin Time 13.1 SEC (11.7-14.0) Prothromb Time International Ratio 1.0 (0.8-1.1) Sodium Level 144 mmol/L (136-145) Potassium Level 3.8 mmol/L (3.5-5.1) Chloride Level 108 mmol/L (98-107) Carbon Dioxide Level 25 mmol/L (21-32) Anion Gap 11 (6-14) Blood Urea Nitrogen 14 mg/dL (7-20) Creatinine 3.0 mg/dL (0.6-1.0) Estimated GFR (Cockcroft-Gault) 18.5 BUN/Creatinine Ratio 5 (6-20) Glucose Level 153 mg/dL (70-99) Calcium Level 8.4 mg/dL (8.5-10.1) Total Bilirubin 0.4 mg/dL (0.2-1.0) Aspartate Amino Transf (AST/SGOT) 18 U/L (15-37) Alanine Aminotransferase (ALT/SGPT) 9 U/L (14-59) Alkaline Phosphatase 77 U/L (46-116) Total Protein 6.1 g/dL (6.4-8.2) Albumin 2.3 g/dL (3.4-5.0) Albumin/Globulin Ratio 0.6 (1.0-1.7) Glucose (Fingerstick) 139 mg/dL (70-99) 80 mg/dL (70-99) Test 06/23/18 09:57 06/23/18 10:58 06/23/18 11:42 Glucose (Fingerstick) 104 mg/dL (70-99) 89 mg/dL (70-99) Hemoglobin 8.1 g/dL (12.0-15.5) Hematocrit 24.9 % (36.0-47.0) Mean Corpuscular Hemoglobin Concent 32 g/dL (31-37) Imaging: Imaging: CT ANGIOGRAPHY ABD AND PELVIS dated 06/11/2018 2:52 AM Indication: Chest pain.CP, STAT MD EILSSA AWARE OF ALLERGIES, OMNI 350, 90ml, PATIENT MOVED TO ICU [id number], SHE WAS PREMEDICATED WITH BENEDRYL. Comparison: 06/09/2018 Technique: Contiguous axial imaging of the abdomen and pelvis performed following the intravenous administration of 90 cc Omnipaque 350. Study was performed as dedicated CTA with thin cut coronal and sagittal MIPS reconstruction. One or more of the following individualized dose reduction techniques were utilized for this examination: 1. Automated exposure control 2. Adjustment of the mA and/or kV according to patient size 3. Use of iterative reconstruction technique Findings: Limited images of lung bases show patchy consolidation in the lower lobes with small bilateral pleural effusions, increased from prior study. Heart size is moderately enlarged. No pericardial effusion. Mild emphysema. Mild "interstitial changes at both lung bases" Liver is homogeneous. No apparent hepatic mass. Biliary tree normal in caliber. There is some increased density in the gallbladder lumen consistent with sludge and/or vicarious excreted contrast material. Spleen is normal in size. Pancreas unremarkable. Adrenal glands are somewhat thickened, unchanged. There calcifications at the calyceal margins of the right kidney, unchanged. The left kidney is atrophic. No ureteral stone or hydronephrosis. Partially opacified GI tract normal in caliber and contour. Mild wall thickening of the ascending colon, unchanged. There is been interval improvement in wall thickening of the sigmoid. Scattered diverticula throughout. No inflammatory changes in the mesentery. No lymphadenopathy. There is extensive atherosclerotic calcifications of the abdominal aorta. Focal aneurysm at its infrarenal portion measures up to 5.1 cm transverse. Possible small intimal flap distally is unchanged. No periaortic fluid collection. Left renal artery is poorly visualized and may be occluded. The right renal artery is patent. Celiac artery and SMA are patent. No adenopathy. Images of pelvis show nondistended urinary bladder. Trace amount of free pelvic fluid. No pelvic lymphadenopathy. Bone windows show no acute findings. Multilevel spondylosis. Generalized anasarca. IMPRESSION: 1. Extensive atherosclerotic changes of the abdominal aorta with 5.1 cm aneurysm, stable. There is also a possible short segment dissection flap, unchanged. 2. Bibasilar airspace disease, edema versus pneumonia. There are small bilateral pleural effusions. Generalized anasarca. 3. Wall thickening of the ascending colon and hepatic flexure suggestive of colitis. The previously described inflammatory changes of the sigmoid colon have improved. 4. Right-sided nephrolithiasis, nonobstructive. 5. Sludge-filled gallbladder. 6. Small amount of free pelvic fluid, nonspecific. 7. Diverticulosis. 8. High-grade stenosis of the left renal artery origin. 9. Cardiomegaly. Electronically signed by: Josue Lew MD (06/11/2018 4:16 AM) [facility] [place] DATE: 06/09/18 1231 CC: JOSUE العراقي MD; SUDHEER ROBLES MD; DEVIN JOHNSON MD; MYRNA WILDER MD; LIONEL IZQUIERDO APRN; EDITH CLEARY MD; FRANK REED MD; BERTO TORRES MD; EARL MARTINEZ MD ~ CTA OF THE ABDOMEN AND PELVIS WITH IV CONTRAST. History: Epigastric pain and diarrhea and abdominal aortic aneurysm Comparison: June 16, 2016 CT without contrast. Procedure: Contiguous axial images of the abdomen and pelvis were performed after the administration of 90 cc of Omni 350 IV contrast and without oral contrast. Timing is appropriate for arterial evaluation and multiplanar reconstruction was performed on a separate imaging workstation including 3-D maximum intensity projected imaging as well as 3-D arterial surface rendering. CTA Abdomen with contrast: Findings: The heart is moderately dilated. There are mild pleural effusions. Evaluation of the solid organs is limited without IV contrast. There is contrast in the colon from a previous CT examination. There is an fusiform infrarenal abdominal aortic aneurysm which measures as great as 4.6 x 3.4 cm and is unchanged. The celiac axis and SMA are patent. 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 The distal aorta has a normal caliber. There is normal caliber at the level the renal arteries and above. There is a small chronic dissection in the distal abdominal aorta. Evaluation of solid organs is limited by arterial phase imaging. Liver: Unremarkable Spleen: Unremarkable Pancreas: Unremarkable Adrenal Glands: Thickening of the adrenals left worse than right were seen previously. Kidneys: Atrophic. There are multiple nonobstructive stones in the right renal pelvis. The left renal artery is not well seen. There is no mass or lymphadenopathy. There is no free air. There is no free fluid. CT Pelvis with Contrast: Findings: The urinary bladder is collapsed and not well evaluated. There is a stent in the left common iliac artery which appears patent. There is moderate wall thickening of the sigmoid colon without surrounding inflammation. The appendix is not identified. There is a trace of free fluid. There is no lymphadenopathy. Impression: 1. Moderate wall thickening of the sigmoid colon without surrounding inflammation. This could be infectious colitis such as pseudomembranous colitis or could be inflammatory colitis such as ulcerative colitis. There is no diverticulitis. There is no air in the wall to suggest ischemic colitis. 2. Trace of ascites in the pelvis. 3. Moderately dilated cardiomegaly and mild pleural effusions. 4. Significant atherosclerotic disease with a fusiform infrarenal abdominal aortic aneurysm which has crescentic thrombus. There is a normal caliber at the level the renal arteries and at the bifurcation. There is a small chronic dissection in the distal abdominal aorta. There is a stent in the left common iliac artery which appears patent. Direct comparison to prior studies difficult due to the lack of IV contrast in the prior study however the abdominal aorta appears unchanged in size. 5. 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 PQRS Compliance Statement: One or more of the following individualized dose reduction techniques were utilized for this examination: 1. Automated exposure control 2. Adjustment of the mA and/or kV according to patient size 3. Use of iterative reconstruction technique Electronically signed by: Mando Brennan III, MD (06/09/2018 9:31 AM) [facility] PE: Physical Exam General: No acute distress HEENT: Atraumatic, PERRLA, EOMI, Other (pale palpebral conjunctivae) Lungs: Clear to auscultation, Normal air movement Heart: S1S2, RRR, no thrills, no rubs, no gallops, no murmurs Cardiovascular: S1, S2 Breasts: Normal, Rt breast nml w/o mass, Lt breast nml w/o mass, Nipples normal Abdomen: Normal bowel sounds, Soft, No tenderness, No hepatosplenomegaly, No masses Rectal Exam: not examined PELVIC: Nml ext genitalia Extremities: No clubbing, No cyanosis, No edema, Normal pulses, No tenderness/ swelling Skin: No rashes, No breakdown, No significant lesion Neuro: Normal gait, Normal speech, Strength at 5/5 X4 ext, Normal tone, Sensation intact, Cranial nerves 3-12 NL, Reflexes 2+ Psych/Mental Status: Mental status NL, Mood NL A/P: A/P: A) 1) Melena 2) Anemia 3) Abnormal CT suggestive of colitis suspicious for mesenteric ischemia P) 1) Hold Plavix 2) Favor repeat imaging given changes in CTA from 3/2( colitis in sigmoid) to 3/ 4 (colitis is ascending and hepatic flexure) 3) Consider colonoscopy. She does not want to proceed with colonoscopy at this time. Would favor imaging given rapid changes from imaging 3/2 to 3/4. 4) Consider abx 5) Add PPI YASMANY LANE MD Jun 23, 2018 13:41
[2018-06-23] MEDS: PANTOPRAZOLE IV PUSH 40 MG VIAL. IVP SCH (14:30)
[2018-06-23] MEDS ORDERED: PANTOPRAZOLE IV PUSH 40 MG VIAL. IVP SCH (16:30)
--- NOTE | 2018-06-23 17:01 | EKG ---
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
--- NOTE | 2018-06-23 18:26 | RAD ---
CT abdomen and pelvis without contrast. HISTORY: Anemia, recent colitis CT scan of the abdomen pelvis was done without contrast. There are small bilateral effusions. There is mild airspace disease in the lung bases from atelectasis or mild infiltrates. Pleural effusions have mildly decreased. Atelectasis in the lung bases is similar to the prior study. A liver lesion is not identified. Spleen is unremarkable. Adrenal glands are prominent possible hyperplasia without change. There is no mass or hydronephrosis in the kidneys. There is a stent graft in the aorta without change. There is possible thickening of the wall of the gastric antrum. There is no small bowel obstruction. Uterus and ovaries are unremarkable. There is mild diverticulosis. There is mild inflammation and narrowing of the colon at the splenic flexure. A mass is possible, mild diverticulitis is possible. There is mild wall thickening of the right colon possible colitis. The appendix is not identified.. The anasarca noted on the prior study has improved. Is mild fluid in the groin or hematoma at the right groin. There is a lipoma posterior to the right hip. IMPRESSION: 1. Mild wall thickening with mild pericolonic inflammation at the splenic flexure from a mass or mild diverticulitis. 2. Mild wall thickening at the hepatic flexure and descending colon suggesting colitis. 3. Swelling from mild fluid or hematoma at the right groin. 4. Lipoma behind the right hip. 5. Prominent adrenal glands possible hyperplasia. 6. Wall thickening in the gastric antrum nonspecific but gastritis is possible. PQRS Compliance Statement: One or more of the following individualized dose reduction techniques were utilized for this examination: 1. Automated exposure control 2. Adjustment of the mA and/or kV according to patient size 3. Use of iterative reconstruction technique Electronically signed by: Enrico Hicks MD (06/23/2018 6:23 PM) [id number]
[2018-06-23] MEDS: BUDESONIDE 0.5 MG/2 ML NEBU. NEB SCH (20:03)
[2018-06-23] MEDS: CIPROFLOXACIN 400MG PREMIX 200 ML IV SCH (20:20)
[2018-06-23] MEDS: INSULIN GLARGINE 300 UNITS/3 ML INSULN.PEN. SQ SCH (21:00)
[2018-06-23] MEDS: ATORVASTATIN CALCIUM 40 MG TABLET. PO SCH (21:22)
[2018-06-23] MEDS: HYDROcodone/APAP 5/325MG 1 TAB TABLET PO PRN (21:22)
[2018-06-24 03:00] VITALS: BP 118/42
[2018-06-24] MEDS: PANTOPRAZOLE IV PUSH 40 MG VIAL. IVP SCH (06:06)
[2018-06-24 07:00] VITALS: BP 122/42
[2018-06-24] MEDS: BUDESONIDE 0.5 MG/2 ML NEBU. NEB SCH ×2 (07:27→19:34)
[2018-06-24] MEDS: ALBUTEROL SULFATE 2.5 MG/3 ML NEBU. NEB SCH ×4 (07:27→19:34)
[2018-06-24] MEDS: INSULIN LISPRO 300 UNITS/3 ML INSULN.PEN. SQ SCH ×3 (07:53→17:00)
[2018-06-24] MEDS: FOLIC/VIT B COMP W-C (RENAL) TABLET. PO SCH (09:08)
[2018-06-24] MEDS: FUROSEMIDE 40 MG TABLET. PO SCH (09:10)
[2018-06-24] MEDS: AMIODARONE HCL 200 MG TABLET. PO SCH (09:10)
[2018-06-24] MEDS: LISINOPRIL 20 MG TABLET PO SCH (09:10)
[2018-06-24] MEDS: METOPROLOL SUCC 24HR ER 100 MG TAB.ER.24H. PO SCH (09:11)
[2018-06-24 11:00] VITALS: BP 121/46
--- NOTE | 2018-06-24 12:04 | PDOC ---
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 Mild wall thickening with mild pericolonic inflammation at the splenic flexure from a mass or mild diverticulitis. 2. Mild wall thickening at the hepatic flexure and descending colon suggesting colitis. 3. Swelling from mild fluid or hematoma at the right groin. 4. Lipoma behind the right hip. 5. Prominent adrenal glands possible hyperplasia. 6. Wall thickening in the gastric antrum nonspecific but gastritis is possible. PLAN: GI has started Flagyl Cipro No fevers, normal white count cont PPI H&H again tomorrow Maintain clear liquid for now She relays 15 pound weight loss in a month MIght need EGD? NPO post MN in case Vitals Vitals Vital Signs Date Time Temp Pulse Resp B/P (MAP) Pulse Ox O2 Delivery O2 Flow Rate FiO2 06/24/18 11:48 Nasal Cannula 2.0 06/24/18 11:00 97.7 60 16 121/46 (71) 99 97.7 Physical Exam General: No acute distress Lungs: Clear Abdomen: Normal bowel sounds, Soft, No tenderness, No hepatosplenomegaly, No masses Extremities: No clubbing, No cyanosis, No edema, Normal pulses, No tenderness/ swelling Skin: No rashes, No breakdown, No significant lesion Labs LABS Laboratory Tests Test 06/23/18 16:45 06/23/18 20:41 Glucose (Fingerstick) 88 mg/dL (70-99) 114 mg/dL (70-99) Review of Systems Review of Systems Melena, otherwise rest of ROS 14 point negative Comment Review of Relevant I have reviewed the following items mykel (where applicable) has been applied. Labs Laboratory Tests Test 06/22/18 21:30 06/22/18 21:48 06/22/18 23:56 06/23/18 07:34 Stool Occult Blood Positive (NEG) White Blood Count 7.3 x10^3/uL (4.0-11.0) Red Blood Count 1.78 x10^6/uL (3.50-5.40) Hemoglobin 5.7 g/dL (12.0-15.5) Hematocrit 17.9 % (36.0-47.0) Mean Corpuscular Volume 101 fL (79-100) Mean Corpuscular Hemoglobin 32 pg (25-35) Mean Corpuscular Hemoglobin Concent 32 g/dL (31-37) Red Cell Distribution Width 14.2 % (11.5-14.5) Platelet Count 310 x10^3/uL (140-400) Neutrophils (%) (Auto) 80 % (31-73) Lymphocytes (%) (Auto) 8 % (24-48) Monocytes (%) (Auto) 11 % (0-9) Eosinophils (%) (Auto) 1 % (0-3) Basophils (%) (Auto) 0 % (0-3) Neutrophils # (Auto) 5.8 x10^3uL (1.8-7.7) Lymphocytes # (Auto) 0.6 x10^3/uL (1.0-4.8) Monocytes # (Auto) 0.8 x10^3/uL (0.0-1.1) Eosinophils # (Auto) 0.1 x10^3/uL (0.0-0.7) Basophils # (Auto) 0.0 x10^3/uL (0.0-0.2) Prothrombin Time 13.1 SEC (11.7-14.0) Prothromb Time International Ratio 1.0 (0.8-1.1) Sodium Level 144 mmol/L (136-145) Potassium Level 3.8 mmol/L (3.5-5.1) Chloride Level 108 mmol/L (98-107) Carbon Dioxide Level 25 mmol/L (21-32) Anion Gap 11 (6-14) Blood Urea Nitrogen 14 mg/dL (7-20) Creatinine 3.0 mg/dL (0.6-1.0) Estimated GFR (Cockcroft-Gault) 18.5 BUN/Creatinine Ratio 5 (6-20) Glucose Level 153 mg/dL (70-99) Calcium Level 8.4 mg/dL (8.5-10.1) Total Bilirubin 0.4 mg/dL (0.2-1.0) Aspartate Amino Transf (AST/SGOT) 18 U/L (15-37) Alanine Aminotransferase (ALT/SGPT) 9 U/L (14-59) Alkaline Phosphatase 77 U/L (46-116) Total Protein 6.1 g/dL (6.4-8.2) Albumin 2.3 g/dL (3.4-5.0) Albumin/Globulin Ratio 0.6 (1.0-1.7) Glucose (Fingerstick) 139 mg/dL (70-99) 80 mg/dL (70-99) Test 06/23/18 09:57 06/23/18 10:58 06/23/18 11:42 06/23/18 16:45 Glucose (Fingerstick) 104 mg/dL (70-99) 89 mg/dL (70-99) 88 mg/dL (70-99) Hemoglobin 8.1 g/dL (12.0-15.5) Hematocrit 24.9 % (36.0-47.0) Mean Corpuscular Hemoglobin Concent 32 g/dL (31-37) Test 06/23/18 20:41 Glucose (Fingerstick) 114 mg/dL (70-99) Laboratory Tests Test 06/23/18 16:45 06/23/18 20:41 Glucose (Fingerstick) 88 mg/dL (70-99) 114 mg/dL (70-99) Medications Current Medications Pantoprazole Sodium (PROTONIX VIAL for IV PUSH) 80 mg 1X ONCE IVP Last administered on 06/22/18at 22:08; Start 06/22/18 at 22:00; Stop 06/22/18 at 22:01 ; Status DC Acetaminophen (Tylenol) 500 mg PRN Q6HRS PRN PO MILD PAIN / TEMP; Start at 08:45 Acetaminophen/ Codeine Phosphate (Tylenol #3) 1 tab PRN Q6HRS PRN PO PAIN MODERATE; Start 06/23/18 at 08:45 Ondansetron HCl (Zofran) 4 mg PRN Q6HRS PRN IV NAUSEA/VOMITING; Start 06/23/18 at 08:45 Ondansetron HCl (Zofran Odt) 4 mg PRN Q6HRS PRN PO NAUSEA/VOMITING FIRST CHOICE ; Start 06/23/18 at 08:45 Insulin Human Lispro (HumaLOG) 0-7 UNITS TIDWMEALS SQ ; Start 06/23/18 at 12:00 Dextrose (Dextrose 50%-Water Syringe) 12.5 gm PRN Q15MIN PRN IV SEE COMMENTS; Start 06/23/18 at 08:45 Albuterol Sulfate (Ventolin Neb Soln) 2.5 mg PRN Q6HRS PRN INH SHORTNESS OF BREATH; Start 06/23/18 at 08:45; Stop 06/23/18 at 09:15; Status DC Amiodarone HCl (Cordarone) 200 mg DAILY PO Last administered on 06/24/18at 09:10 ; Start 06/23/18 at 09:00 Atorvastatin Calcium (Lipitor) 40 mg HS PO Last administered on 06/23/18at 21:22 ; Start 06/23/18 at 21:00 Vitamin B Complex/ Vitamin C (Marina-Jayme) 1 tab DAILY PO Last administered on at 09:08; Start 06/23/18 at 09:00 Furosemide (Lasix) 40 mg DAILY PO Last administered on 06/24/18at 09:10; Start 06/23/18 at 09:00 Acetaminophen/ Hydrocodone Bitart (Lortab 5/325) 1 tab PRN Q6HRS PRN PO BACK PAIN MODERATE TO SEVERE Last administered on 06/23/18at 21:22; Start 06/23/18 at 08:45 Insulin Glargine (Lantus) 15 units QHS SQ ; Start 06/23/18 at 21:00 Lisinopril (Prinivil) 20 mg DAILY PO Last administered on 06/24/18at 09:10; Start 06/23/18 at 09:00 Metoprolol Succinate (Toprol Xl) 100 mg DAILY PO Last administered on at 09:11; Start 06/23/18 at 09:00 Non-Formulary Medication (Budesonide/ Formoterol Fumarate (Symbicort 160-4.5 Mcg Inhaler)) 2 puff BID IH ; Start 06/23/18 at 09:00; Status UNV Diltiazem HCl (Cardizem 24hr Cd) 180 mg DAILY PO ; Start 06/24/18 at 10:00 Hydroxyzine Pamoate (Vistaril) 50 mg QMWF PO ; Start 06/25/18 at 16:00 Non-Formulary Medication ([Albuterol Sulfate] ) 2.5 mg PRN Q4HRS PRN NEB SHORTNESS OF BREATH; Start 06/23/18 at 08:45; Status UNV Albuterol Sulfate (Ventolin Neb Soln) 2.5 mg RTQID NEB Last administered on at 11:46; Start 06/23/18 at 12:00 Budesonide (Pulmicort) 0.5 mg RTBID NEB Last administered on 06/24/18at 07:27; Start 06/23/18 at 20:00 Albuterol Sulfate (Ventolin Neb Soln) 2.5 mg PRN Q4HRS PRN NEB SHORTNESS OF BREATH; Start 06/23/18 at 09:15 Pantoprazole Sodium (PROTONIX VIAL for IV PUSH) 40 mg BIDAC IVP ; Start at 16:30; Status Cancel Pantoprazole Sodium (PROTONIX VIAL for IV PUSH) 40 mg DAILYAC IVP Last administered on 06/24/18at 06:06; Start 06/23/18 at 14:00 Metronidazole 100 ml @ 100 mls/hr Q12HR IV Last administered on 06/24/18at 09: 07; Start 06/23/18 at 21:00 Ciprofloxacin/ Dextrose 200 ml @ 200 mls/hr Q24H IV Last administered on at 20:20; Start 06/23/18 at 20:00 Active Scripts Active Amiodarone Hcl 200 Mg Tablet 200 Mg PO DAILY MDD 1 Eliquis (Apixaban) 5 Mg Tablet 5 Mg PO BID MDD ` [Albuterol Sulfate] 2.5 MG/3 ML Nebu 2.5 Mg NEB PRN Q4HRS PRN Reported Diltiazem 24HR Cd (Diltiazem Hcl) 180 Mg Cap.er.24h 180 Mg PO DAILY Lipitor (Atorvastatin Calcium) 40 Mg Tablet 40 Mg PO HS Hydrocodone-Acetamin 5-325 mg (Hydrocodone/Acetaminophen) 1 Each Tablet 1 Each PO PRN Q6HRS PRN Furosemide 40 Mg Tablet 40 Mg PO DAILY Symbicort 160-4.5 Mcg Inhaler (Budesonide/Formoterol Fumarate) 10.2 Gm Hfa.aer.ad 2 Puff IH BID Toprol Xl (Metoprolol Succinate) 100 Mg Tab.er.24h 100 Mg PO DAILY Proair Hfa Inhaler (Albuterol Sulfate) 8.5 Gm Hfa.aer.ad 1 Puff INH PRN Q6HRS PRN Marina-Jayme Tablet (Folic Acid/Vitamin B Comp W-C) 0.8 Mg Tablet 0.8 Mg PO DAILY Hydroxyzine Hcl 25 Mg Tablet 50 Mg PO QMWF Lisinopril 20 Mg Tablet 1 Tab PO DAILY Lantus Solostar (Insulin Glargine,Hum.rec.anlog) 100 Unit/1 Ml Insuln.pen 15 Unit SQ QHS Aspirin 325 Mg Tablet 1 Tab PO DAILY Vitals/I & O Vital Sign - Last 24 Hours 06/23/18 06/23/18 06/23/18 06/23/18 15:00 15:23 19:00 20:00 Temp 98.4 98.2 98.4 98.2 Pulse 76 58 Resp 18 18 B/P (MAP) 136/55 (82) 133/55 (81) Pulse Ox 100 100 99 O2 Delivery Nasal Cannula Nasal Cannula Nasal Cannula Nasal Cannula O2 Flow Rate 3.0 2.0 2.0 2.0 06/23/18 06/23/18 06/23/18 06/23/18 20:04 21:22 22:22 23:00 Temp 98.6 98.6 Pulse 60 Resp 18 18 18 B/P (MAP) 114/37 (62) Pulse Ox 100 100 O2 Delivery Nasal Cannula Nasal Cannula Nasal Cannula Nasal Cannula O2 Flow Rate 2.0 2.0 2.0 2.0 06/24/18 06/24/18 06/24/18 06/24/18 03:00 07:00 07:28 09:10 Temp 97.8 97.9 97.8 97.9 Pulse 63 63 58 Resp 18 16 B/P (MAP) 118/42 (67) 122/42 (68) 117/55 Pulse Ox 98 100 99 O2 Delivery Nasal Cannula Room Air Nasal Cannula O2 Flow Rate 2.0 2.0 06/24/18 06/24/18 06/24/18 06/24/18 09:10 09:11 11:00 11:48 Temp 97.7 97.7 Pulse 58 58 60 Resp 16 B/P (MAP) 117/55 117/55 121/46 (71) Pulse Ox 99 O2 Delivery Room Air Nasal Cannula O2 Flow Rate 2.0 Intake and Output 06/23/18 06/23/18 06/24/18 14:59 22:59 06:59 Intake Total 0 ml Balance 0 ml CARMELA TAYLOR MD Jun 24, 2018 12:04
--- NOTE | 2018-06-24 13:46 | PDOC ---
Subjective: Subjective: Tolerating diet. Wants to eat more CT with MPRESSION: 1. Mild wall thickening with mild pericolonic inflammation at the splenic flexure from a mass or mild diverticulitis. 2. Mild wall thickening at the hepatic flexure and descending colon suggesting colitis. 3. Swelling from mild fluid or hematoma at the right groin. 4. Lipoma behind the right hip. 5. Prominent adrenal glands possible hyperplasia. 6. Wall thickening in the gastric antrum nonspecific but gastritis is possible. Objective: Vital Signs: Vital Signs Date Time Temp Pulse Resp B/P (MAP) Pulse Ox O2 Delivery O2 Flow Rate FiO2 06/24/18 11:48 Nasal Cannula 2.0 06/24/18 11:00 97.7 60 16 121/46 (71) 99 97.7 Labs: Laboratory Tests Test 06/23/18 16:45 06/23/18 20:41 06/24/18 07:30 06/24/18 11:06 Glucose (Fingerstick) 88 mg/dL (70-99) 114 mg/dL (70-99) 72 mg/dL (70-99) 83 mg/dL (70-99) Physical Exam: Physical Exam: PE: Physical Exam General: No acute distress HEENT: Atraumatic, PERRLA, EOMI, Other (pale palpebral conjunctivae) Lungs: Clear to auscultation, Normal air movement Heart: S1S2, RRR, no thrills, no rubs, no gallops, no murmurs Cardiovascular: S1, S2 Breasts: Normal, Rt breast nml w/o mass, Lt breast nml w/o mass, Nipples normal Abdomen: Normal bowel sounds, Soft, No tenderness, No hepatosplenomegaly, No masses Rectal Exam: not examined PELVIC: Nml ext genitalia Extremities: No clubbing, No cyanosis, No edema, Normal pulses, No tenderness/ swelling Skin: No rashes, No breakdown, No significant lesion Neuro: Normal gait, Normal speech, Strength at 5/5 X4 ext, Normal tone, Sensation intact, Cranial nerves 3-12 NL, Reflexes 2+ Psych/Mental Status: Mental status NL, Mood NL Assessment & Plan: Assessment : A/P: A/P: A) 1) Melena 2) Anemia 3)Diverticulitis/colitis/? mass on CT- diverticulitis vs ischemic colitis 4) Gastritis on CT Plan: 1) ADAT 2) Cont abx- teat or diverticulitis/ischemic colitis 3) Favor EGD/Colon once above calms down 4) Follow Hgb YASMANY L[address] MD Jun 24, 2018 13:46
[2018-06-24 15:00] VITALS: BP 130/46
[2018-06-24 19:00] VITALS: BP 128/78
[2018-06-24] MEDS: INSULIN GLARGINE 300 UNITS/3 ML INSULN.PEN. SQ SCH (21:00)
[2018-06-24] MEDS: CIPROFLOXACIN 400MG PREMIX 200 ML IV SCH (21:57)
[2018-06-24] MEDS: ATORVASTATIN CALCIUM 40 MG TABLET. PO SCH (21:57)
[2018-06-24 23:00] VITALS: BP 122/42
[2018-06-25 03:00] VITALS: BP 112/40
[2018-06-25 03:53] LABS: BASO % 1 % (0-3); EOS # 0.1 x10^3/uL (0.0-0.7); EOS % 1 % (0-3); HEMATOCRIT 24.8 % (36.0-47.0); LYMPH # 0.6 x10^3/uL (1.0-4.8); LYMPH % 9 % (24-48); MEAN CORPUSCULAR HEMOGLOBIN 31 pg (25-35); MEAN CORPUSCULAR HGB CONC 32 g/dL (31-37); MEAN CORPUSCULAR VOLUME 97 fL (79-100); MONO # 0.7 x10^3/uL (0.0-1.1); MONO % 10 % (0-9); NEUT # 5.3 x10^3uL (1.8-7.7); NEUT % 80 % (31-73); PLATELET COUNT 278 x10^3/uL (140-400); RED BLOOD COUNT 2.56 x10^6/uL (3.50-5.40); RED CELL DISTRIBUTION WIDTH 18.5 % (11.5-14.5); WHITE BLOOD COUNT 6.7 x10^3/uL (4.0-11.0)
[2018-06-25 04:05] LABS: CREATININE 6.6 mg/dL (0.6-1.0); GFR 7.4; POTASSIUM 4.6 mmol/L (3.5-5.1)
[2018-06-25] MEDS: PANTOPRAZOLE IV PUSH 40 MG VIAL. IVP SCH (06:10)
[2018-06-25 07:00] VITALS: BP 109/36
[2018-06-25] MEDS: ALBUTEROL SULFATE 2.5 MG/3 ML NEBU. NEB SCH ×4 (07:08→20:00)
[2018-06-25] MEDS: BUDESONIDE 0.5 MG/2 ML NEBU. NEB SCH ×2 (07:08→20:00)
[2018-06-25] MEDS: INSULIN LISPRO 300 UNITS/3 ML INSULN.PEN. SQ SCH ×3 (08:00→16:38)
[2018-06-25] MEDS: METOPROLOL SUCC 24HR ER 100 MG TAB.ER.24H. PO SCH (08:46)
[2018-06-25] MEDS: LISINOPRIL 20 MG TABLET PO SCH (08:54)
[2018-06-25] MEDS: FUROSEMIDE 40 MG TABLET. PO SCH (08:55)
[2018-06-25] MEDS: FOLIC/VIT B COMP W-C (RENAL) TABLET. PO SCH (08:55)
[2018-06-25] MEDS: AMIODARONE HCL 200 MG TABLET. PO SCH (09:00)
[2018-06-25 11:00] VITALS: BP 147/51
--- NOTE | 2018-06-25 11:23 | PDOC ---
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 Banks presented with black stools, likely due to diverticulitis. Patient is on HD MWF. GI following. Patient seen and examined at bedside. Patient has no new complaints. Vitals Vitals Vital Signs Date Time Temp Pulse Resp B/P (MAP) Pulse Ox O2 Delivery O2 Flow Rate FiO2 06/25/18 11:15 98 Nasal Cannula 2.0 06/25/18 08:46 57 06/25/18 07:00 98.1 16 109/36 (60) 98.1 Physical Exam General: Alert, Oriented X3, No acute distress Heart: Regular rate, No murmurs Lungs: Clear Abdomen: Normal bowel sounds, Soft, No tenderness, No hepatosplenomegaly, No masses Extremities: No clubbing, No cyanosis, No edema, Normal pulses, No tenderness/ swelling Skin: No rashes, No breakdown, No significant lesion Labs LABS Laboratory Tests Test 06/24/18 16:04 06/24/18 20:16 06/25/18 02:40 06/25/18 07:33 Glucose (Fingerstick) 99 mg/dL (70-99) 123 mg/dL (70-99) 83 mg/dL (70-99) White Blood Count 6.7 x10^3/uL (4.0-11.0) Red Blood Count 2.56 x10^6/uL (3.50-5.40) Hemoglobin 8.0 g/dL (12.0-15.5) Hematocrit 24.8 % (36.0-47.0) Mean Corpuscular Volume 97 fL (79-100) Mean Corpuscular Hemoglobin 31 pg (25-35) Mean Corpuscular Hemoglobin Concent 32 g/dL (31-37) Red Cell Distribution Width 18.5 % (11.5-14.5) Platelet Count 278 x10^3/uL (140-400) Neutrophils (%) (Auto) 80 % (31-73) Lymphocytes (%) (Auto) 9 % (24-48) Monocytes (%) (Auto) 10 % (0-9) Eosinophils (%) (Auto) 1 % (0-3) Basophils (%) (Auto) 1 % (0-3) Neutrophils # (Auto) 5.3 x10^3uL (1.8-7.7) Lymphocytes # (Auto) 0.6 x10^3/uL (1.0-4.8) Monocytes # (Auto) 0.7 x10^3/uL (0.0-1.1) Eosinophils # (Auto) 0.1 x10^3/uL (0.0-0.7) Basophils # (Auto) 0.0 x10^3/uL (0.0-0.2) Erythrocyte Sedimentation Rate 22 (0-25) Sodium Level 141 mmol/L (136-145) Potassium Level 4.6 mmol/L (3.5-5.1) Chloride Level 109 mmol/L (98-107) Carbon Dioxide Level 21 mmol/L (21-32) Anion Gap 11 (6-14) Blood Urea Nitrogen 35 mg/dL (7-20) Creatinine 6.6 mg/dL (0.6-1.0) Estimated GFR (Cockcroft-Gault) 7.4 Glucose Level 102 mg/dL (70-99) Calcium Level 8.0 mg/dL (8.5-10.1) Review of Systems Review of Systems Denies abdominal pain Denies nausea Denies vomiting Assessment and Plan Assessmemt and Plan Assessment: Acute diverticulitis 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 Labs Laboratory Tests Test 06/23/18 11:42 06/23/18 16:45 06/23/18 20:41 06/24/18 07:30 Glucose (Fingerstick) 89 mg/dL (70-99) 88 mg/dL (70-99) 114 mg/dL (70-99) 72 mg/dL (70-99) Test 06/24/18 11:06 06/24/18 16:04 06/24/18 20:16 06/25/18 02:40 Glucose (Fingerstick) 83 mg/dL (70-99) 99 mg/dL (70-99) 123 mg/dL (70-99) White Blood Count 6.7 x10^3/uL (4.0-11.0) Red Blood Count 2.56 x10^6/uL (3.50-5.40) Hemoglobin 8.0 g/dL (12.0-15.5) Hematocrit 24.8 % (36.0-47.0) Mean Corpuscular Volume 97 fL (79-100) Mean Corpuscular Hemoglobin 31 pg (25-35) Mean Corpuscular Hemoglobin Concent 32 g/dL (31-37) Red Cell Distribution Width 18.5 % (11.5-14.5) Platelet Count 278 x10^3/uL (140-400) Neutrophils (%) (Auto) 80 % (31-73) Lymphocytes (%) (Auto) 9 % (24-48) Monocytes (%) (Auto) 10 % (0-9) Eosinophils (%) (Auto) 1 % (0-3) Basophils (%) (Auto) 1 % (0-3) Neutrophils # (Auto) 5.3 x10^3uL (1.8-7.7) Lymphocytes # (Auto) 0.6 x10^3/uL (1.0-4.8) Monocytes # (Auto) 0.7 x10^3/uL (0.0-1.1) Eosinophils # (Auto) 0.1 x10^3/uL (0.0-0.7) Basophils # (Auto) 0.0 x10^3/uL (0.0-0.2) Erythrocyte Sedimentation Rate 22 (0-25) Sodium Level 141 mmol/L (136-145) Potassium Level 4.6 mmol/L (3.5-5.1) Chloride Level 109 mmol/L (98-107) Carbon Dioxide Level 21 mmol/L (21-32) Anion Gap 11 (6-14) Blood Urea Nitrogen 35 mg/dL (7-20) Creatinine 6.6 mg/dL (0.6-1.0) Estimated GFR (Cockcroft-Gault) 7.4 Glucose Level 102 mg/dL (70-99) Calcium Level 8.0 mg/dL (8.5-10.1) Test 06/25/18 07:33 Glucose (Fingerstick) 83 mg/dL (70-99) Laboratory Tests Test 06/24/18 16:04 06/24/18 20:16 06/25/18 02:40 06/25/18 07:33 Glucose (Fingerstick) 99 mg/dL (70-99) 123 mg/dL (70-99) 83 mg/dL (70-99) White Blood Count 6.7 x10^3/uL (4.0-11.0) Red Blood Count 2.56 x10^6/uL (3.50-5.40) Hemoglobin 8.0 g/dL (12.0-15.5) Hematocrit 24.8 % (36.0-47.0) Mean Corpuscular Volume 97 fL (79-100) Mean Corpuscular Hemoglobin 31 pg (25-35) Mean Corpuscular Hemoglobin Concent 32 g/dL (31-37) Red Cell Distribution Width 18.5 % (11.5-14.5) Platelet Count 278 x10^3/uL (140-400) Neutrophils (%) (Auto) 80 % (31-73) Lymphocytes (%) (Auto) 9 % (24-48) Monocytes (%) (Auto) 10 % (0-9) Eosinophils (%) (Auto) 1 % (0-3) Basophils (%) (Auto) 1 % (0-3) Neutrophils # (Auto) 5.3 x10^3uL (1.8-7.7) Lymphocytes # (Auto) 0.6 x10^3/uL (1.0-4.8) Monocytes # (Auto) 0.7 x10^3/uL (0.0-1.1) Eosinophils # (Auto) 0.1 x10^3/uL (0.0-0.7) Basophils # (Auto) 0.0 x10^3/uL (0.0-0.2) Erythrocyte Sedimentation Rate 22 (0-25) Sodium Level 141 mmol/L (136-145) Potassium Level 4.6 mmol/L (3.5-5.1) Chloride Level 109 mmol/L (98-107) Carbon Dioxide Level 21 mmol/L (21-32) Anion Gap 11 (6-14) Blood Urea Nitrogen 35 mg/dL (7-20) Creatinine 6.6 mg/dL (0.6-1.0) Estimated GFR (Cockcroft-Gault) 7.4 Glucose Level 102 mg/dL (70-99) Calcium Level 8.0 mg/dL (8.5-10.1) Medications Current Medications Pantoprazole Sodium (PROTONIX VIAL for IV PUSH) 80 mg 1X ONCE IVP Last administered on 06/22/18at 22:08; Start 06/22/18 at 22:00; Stop 06/22/18 at 22:01 ; Status DC Acetaminophen (Tylenol) 500 mg PRN Q6HRS PRN PO MILD PAIN / TEMP; Start at 08:45 Acetaminophen/ Codeine Phosphate (Tylenol #3) 1 tab PRN Q6HRS PRN PO PAIN MODERATE; Start 06/23/18 at 08:45 Ondansetron HCl (Zofran) 4 mg PRN Q6HRS PRN IV NAUSEA/VOMITING; Start 06/23/18 at 08:45 Ondansetron HCl (Zofran Odt) 4 mg PRN Q6HRS PRN PO NAUSEA/VOMITING FIRST CHOICE ; Start 06/23/18 at 08:45 Insulin Human Lispro (HumaLOG) 0-7 UNITS TIDWMEALS SQ ; Start 06/23/18 at 12:00 Dextrose (Dextrose 50%-Water Syringe) 12.5 gm PRN Q15MIN PRN IV SEE COMMENTS; Start 06/23/18 at 08:45 Albuterol Sulfate (Ventolin Neb Soln) 2.5 mg PRN Q6HRS PRN INH SHORTNESS OF BREATH; Start 06/23/18 at 08:45; Stop 06/23/18 at 09:15; Status DC Amiodarone HCl (Cordarone) 200 mg DAILY PO Last administered on 06/24/18at 09:10 ; Start 06/23/18 at 09:00 Atorvastatin Calcium (Lipitor) 40 mg HS PO Last administered on 06/24/18at 21:57 ; Start 06/23/18 at 21:00 Vitamin B Complex/ Vitamin C (Marina-Jayme) 1 tab DAILY PO Last administered on at 09:08; Start 06/23/18 at 09:00 Furosemide (Lasix) 40 mg DAILY PO Last administered on 06/24/18at 09:10; Start 06/23/18 at 09:00 Acetaminophen/ Hydrocodone Bitart (Lortab 5/325) 1 tab PRN Q6HRS PRN PO BACK PAIN MODERATE TO SEVERE Last administered on 06/23/18at 21:22; Start 06/23/18 at 08:45 Insulin Glargine (Lantus) 15 units QHS SQ ; Start 06/23/18 at 21:00 Lisinopril (Prinivil) 20 mg DAILY PO Last administered on 06/24/18at 09:10; Start 06/23/18 at 09:00 Metoprolol Succinate (Toprol Xl) 100 mg DAILY PO Last administered on at 09:11; Start 06/23/18 at 09:00 Non-Formulary Medication (Budesonide/ Formoterol Fumarate (Symbicort 160-4.5 Mcg Inhaler)) 2 puff BID IH ; Start 06/23/18 at 09:00; Status UNV Diltiazem HCl (Cardizem 24hr Cd) 180 mg DAILY PO ; Start 06/24/18 at 10:00 Hydroxyzine Pamoate (Vistaril) 50 mg QMWF PO ; Start 06/25/18 at 16:00 Non-Formulary Medication ([Albuterol Sulfate] ) 2.5 mg PRN Q4HRS PRN NEB SHORTNESS OF BREATH; Start 06/23/18 at 08:45; Status UNV Albuterol Sulfate (Ventolin Neb Soln) 2.5 mg RTQID NEB Last administered on at 11:14; Start 06/23/18 at 12:00 Budesonide (Pulmicort) 0.5 mg RTBID NEB Last administered on 06/25/18at 07:08; Start 06/23/18 at 20:00 Albuterol Sulfate (Ventolin Neb Soln) 2.5 mg PRN Q4HRS PRN NEB SHORTNESS OF BREATH; Start 06/23/18 at 09:15 Pantoprazole Sodium (PROTONIX VIAL for IV PUSH) 40 mg BIDAC IVP ; Start at 16:30; Status Cancel Pantoprazole Sodium (PROTONIX VIAL for IV PUSH) 40 mg DAILYAC IVP Last administered on 06/25/18at 06:10; Start 06/23/18 at 14:00 Metronidazole 100 ml @ 100 mls/hr Q12HR IV Last administered on 06/25/18at 08: 52; Start 06/23/18 at 21:00 Ciprofloxacin/ Dextrose 200 ml @ 200 mls/hr Q24H IV Last administered on at 21:57; Start 06/23/18 at 20:00 Lactobacillus Rhamnosus (Culturelle) 1 cap BID PO ; Start 06/25/18 at 21:00 Active Scripts Active Amiodarone Hcl 200 Mg Tablet 200 Mg PO DAILY MDD 1 Eliquis (Apixaban) 5 Mg Tablet 5 Mg PO BID MDD ` [Albuterol Sulfate] 2.5 MG/3 ML Nebu 2.5 Mg NEB PRN Q4HRS PRN Reported Diltiazem 24HR Cd (Diltiazem Hcl) 180 Mg Cap.er.24h 180 Mg PO DAILY Lipitor (Atorvastatin Calcium) 40 Mg Tablet 40 Mg PO HS Hydrocodone-Acetamin 5-325 mg (Hydrocodone/Acetaminophen) 1 Each Tablet 1 Each PO PRN Q6HRS PRN Furosemide 40 Mg Tablet 40 Mg PO DAILY Symbicort 160-4.5 Mcg Inhaler (Budesonide/Formoterol Fumarate) 10.2 Gm Hfa.aer.ad 2 Puff IH BID Toprol Xl (Metoprolol Succinate) 100 Mg Tab.er.24h 100 Mg PO DAILY Proair Hfa Inhaler (Albuterol Sulfate) 8.5 Gm Hfa.aer.ad 1 Puff INH PRN Q6HRS PRN Marina-Jayme Tablet (Folic Acid/Vitamin B Comp W-C) 0.8 Mg Tablet 0.8 Mg PO DAILY Hydroxyzine Hcl 25 Mg Tablet 50 Mg PO QMWF Lisinopril 20 Mg Tablet 1 Tab PO DAILY Lantus Solostar (Insulin Glargine,Hum.rec.anlog) 100 Unit/1 Ml Insuln.pen 15 Unit SQ QHS Aspirin 325 Mg Tablet 1 Tab PO DAILY Vitals/I & O Vital Sign - Last 24 Hours 06/24/18 06/24/18 06/24/18 06/24/18 11:48 15:00 15:47 19:00 Temp 98.1 98.2 98.1 98.2 Pulse 60 63 Resp 16 18 B/P (MAP) 130/46 (74) 128/78 (95) Pulse Ox 100 98 100 O2 Delivery Nasal Cannula Room Air Nasal Cannula Room Air O2 Flow Rate 2.0 2.0 06/24/18 06/24/18 06/24/18 06/25/18 19:34 20:00 23:00 03:00 Temp 98.4 97.8 98.4 97.8 Pulse 60 56 Resp 18 18 B/P (MAP) 122/42 (68) 112/40 (64) Pulse Ox 95 98 100 O2 Delivery Nasal Cannula Nasal Cannula Room Air Room Air O2 Flow Rate 2.0 2.0 06/25/18 06/25/18 06/25/18 06/25/18 07:00 07:09 08:00 08:33 Temp 98.1 98.1 Pulse 57 57 Resp 16 B/P (MAP) 109/36 (60) Pulse Ox 98 98 O2 Delivery Room Air Nasal Cannula Nasal Cannula O2 Flow Rate 2.0 2.0 06/25/18 06/25/18 08:46 11:15 Pulse 57 Pulse Ox 98 O2 Delivery Nasal Cannula O2 Flow Rate 2.0 YULIA DE ANDA III DO Jun 25, 2018 11:23
--- NOTE | 2018-06-25 12:22 | NUR ---
SS following for discharge planning. SS reviewed pt chart. Pt is from home with spouse and is currently requiring oxygen. PT/OT recommended snf unit. estate planner, Carol Avery, met with pt to discuss snf unit. 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 Pt reported being previously on services with [facility], ; [phone], and is agreeable to home healthcare at discharge.
--- NOTE | 2018-06-25 14:50 | PDOC ---
Subjective: Subjective: Ate soup for lunch, awaiting dialysis. No bleeding since admission - previously had black stools. Right-sided cramping for about a year. Objective: Vital Signs: Vital Signs Date Time Temp Pulse Resp B/P (MAP) Pulse Ox O2 Delivery O2 Flow Rate FiO2 06/25/18 11:15 98 Nasal Cannula 2.0 06/25/18 11:00 97.5 60 16 147/51 (83) 97.5 Labs: Laboratory Tests Test 06/24/18 16:04 06/24/18 20:16 06/25/18 07:33 06/25/18 11:33 Glucose (Fingerstick) 99 mg/dL (70-99) 123 mg/dL (70-99) 83 mg/dL (70-99) 59 mg/dL (70-99) Imaging: CT A/P IMPRESSION: 1. Mild wall thickening with mild pericolonic inflammation at the splenic flexure from a mass or mild diverticulitis. 2. Mild wall thickening at the hepatic flexure and descending colon suggesting colitis. 3. Swelling from mild fluid or hematoma at the right groin. 4. Lipoma behind the right hip. 5. Prominent adrenal glands possible hyperplasia. 6. Wall thickening in the gastric antrum nonspecific but gastritis is possible. PE: GEN: NAD, up to chair LUNGS: NC HEART: RRR ABD: vaguely tender right midline NEURO/PSYCH: A & O 3 A/P: Chronic anemia, +fecal occult - improved w/ transfusions, iron-deficient in 2016 , on Plavix and ASA at home Melena - none as inpt Abnormal CT - wall thickening in gastric antrum and mild wall thickening at splenic flexure, hepatic flexure, and descending colon ESRD on HD -- Agree w/ PPI, could change to PO since eating. ?EGD before DC and outpt colonoscopy - will review timing w/ Dr. Cruz. CHRISTIAN VU Jun 25, 2018 14:50
[2018-06-25 15:00] VITALS: BP 117/45
[2018-06-25] MEDS ORDERED: hydrOXYzine PAMOATE 25 MG CAPSULE PO SCH (16:00)
[2018-06-25] MEDS ORDERED: hydrOXYzine PAMOATE 25 MG CAPSULE PO ONE (16:00)
[2018-06-25] MEDS ORDERED: LIDOCAINE 1% PF 2 ML VIAL. ONE ×2 (17:16→17:30)
[2018-06-25] MEDS ORDERED: IV NORMAL SALINE 1000ML BAG 1,000 ML IV PRN ×2 (18:28)
[2018-06-25] MEDS ORDERED: diphenhydrAMINE 50 MG/ML VIAL IV PRN ×2 (18:30)
[2018-06-25] MEDS ORDERED: DIALYSIS PATIENT. MC PRN (18:30)
--- NOTE | 2018-06-25 21:30 | NUR ---
Rec'd updated report from [facility] in Dialysis. 3 Kilos taken off, BP 155/67, pt stable, NC 3L. RN and Osmin transported patient from dialysis back to room 410. Pt A/Ox4, NC 3L. Offered lunch box, H2O and juice. Call light w/in reach, patient currently on the phone.
[2018-06-25 23:00] VITALS: BP 137/37
[2018-06-25] MEDS: CIPROFLOXACIN 400MG PREMIX 200 ML IV SCH (23:17)
[2018-06-25] MEDS: LACTOBACILLUS RHAMNOSUS GG 1 CAPSULE. PO SCH (23:18)
[2018-06-25] MEDS: ATORVASTATIN CALCIUM 40 MG TABLET. PO SCH (23:18)
[2018-06-25] MEDS: INSULIN GLARGINE 300 UNITS/3 ML INSULN.PEN. SQ SCH (23:26)
--- NOTE | 2018-06-25 23:43 | NUR ---
Cipro and Flagyl off schedule due to patient being off the unit for dialysis.
[2018-06-26 03:00] VITALS: BP 112/40
[2018-06-26 04:03] LABS: BASO % 1 % (0-3); EOS # 0.1 x10^3/uL (0.0-0.7); EOS % 1 % (0-3); HEMOGLOBIN 7.8 g/dL (12.0-15.5); LYMPH # 0.4 x10^3/uL (1.0-4.8); LYMPH % 7 % (24-48); MEAN CORPUSCULAR HEMOGLOBIN 31 pg (25-35); MEAN CORPUSCULAR HGB CONC 33 g/dL (31-37); MEAN CORPUSCULAR VOLUME 94 fL (79-100); MONO # 0.6 x10^3/uL (0.0-1.1); MONO % 10 % (0-9); NEUT # 5.4 x10^3uL (1.8-7.7); NEUT % 82 % (31-73); PLATELET COUNT 248 x10^3/uL (140-400); RED BLOOD COUNT 2.57 x10^6/uL (3.50-5.40); RED CELL DISTRIBUTION WIDTH 16.7 % (11.5-14.5); WHITE BLOOD COUNT 6.5 x10^3/uL (4.0-11.0)
[2018-06-26] MEDS: HYDROcodone/APAP 5/325MG 1 TAB TABLET PO PRN ×2 (04:21→16:56)
[2018-06-26] MEDS: PANTOPRAZOLE IV PUSH 40 MG VIAL. IVP SCH (06:46)
[2018-06-26 07:00] VITALS: BP 115/34
[2018-06-26] MEDS: BUDESONIDE 0.5 MG/2 ML NEBU. NEB SCH ×2 (07:16→19:43)
[2018-06-26] MEDS: ALBUTEROL SULFATE 2.5 MG/3 ML NEBU. NEB SCH ×4 (07:16→19:42)
[2018-06-26] MEDS: DEXTROSE 50% 25 GM / 50ML DISP.SYRIN. IV PRN (07:37)
[2018-06-26 07:39] LABS: ALBUMIN 1.9 g/dL (3.4-5.0); ALBUMIN/GLOBULIN RATIO 0.5 (1.0-1.7); CALCIUM 7.7 mg/dL (8.5-10.1); CREATININE 3.3 mg/dL (0.6-1.0); GFR 16.5; POTASSIUM 3.8 mmol/L (3.5-5.1); TOTAL BILIRUBIN 0.3 mg/dL (0.2-1.0); TOTAL PROTEIN 5.4 g/dL (6.4-8.2)
[2018-06-26] MEDS: INSULIN LISPRO 300 UNITS/3 ML INSULN.PEN. SQ SCH ×3 (08:00→16:37)
[2018-06-26] MEDS: FUROSEMIDE 40 MG TABLET. PO SCH (08:47)
[2018-06-26] MEDS: AMIODARONE HCL 200 MG TABLET. PO SCH (08:47)
[2018-06-26] MEDS: LACTOBACILLUS RHAMNOSUS GG 1 CAPSULE. PO SCH ×2 (08:47→20:48)
[2018-06-26] MEDS: LISINOPRIL 20 MG TABLET PO SCH (08:47)
[2018-06-26] MEDS: FOLIC/VIT B COMP W-C (RENAL) TABLET. PO SCH (08:48)
[2018-06-26] MEDS: METOPROLOL SUCC 24HR ER 100 MG TAB.ER.24H. PO SCH (08:48)
--- NOTE | 2018-06-26 10:11 | PDOC ---
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 Banks was seen and examined resting comfortably in bed. No new complaints today. Patient blood sugar significantly low this am at 38, currently stable, given dextrose. Patient getting lantus 15 units qhs and humalog TID. Hgb trending down. EGD scheduled today at noon. Nephrology and GI following. HD MWF. Vitals Vitals Vital Signs Date Time Temp Pulse Resp B/P (MAP) Pulse Ox O2 Delivery O2 Flow Rate FiO2 06/26/18 07:16 100 Nasal Cannula 2.0 06/26/18 07:00 97.9 59 18 115/34 (61) 97.9 Physical Exam General: Alert, Oriented X3, No acute distress Heart: Regular rate, No murmurs Lungs: Clear Abdomen: Normal bowel sounds, Soft, No tenderness, No masses Extremities: No clubbing, No cyanosis, No edema, Normal pulses, No tenderness/ swelling Skin: No rashes, No significant lesion Labs LABS Laboratory Tests Test 06/25/18 11:33 06/25/18 16:32 06/25/18 23:19 06/26/18 03:20 Glucose (Fingerstick) 59 mg/dL (70-99) 107 mg/dL (70-99) 161 mg/dL (70-99) White Blood Count 6.5 x10^3/uL (4.0-11.0) Red Blood Count 2.57 x10^6/uL (3.50-5.40) Hemoglobin 7.8 g/dL (12.0-15.5) Hematocrit 24.0 % (36.0-47.0) Mean Corpuscular Volume 94 fL (79-100) Mean Corpuscular Hemoglobin 31 pg (25-35) Mean Corpuscular Hemoglobin Concent 33 g/dL (31-37) Red Cell Distribution Width 16.7 % (11.5-14.5) Platelet Count 248 x10^3/uL (140-400) Neutrophils (%) (Auto) 82 % (31-73) Lymphocytes (%) (Auto) 7 % (24-48) Monocytes (%) (Auto) 10 % (0-9) Eosinophils (%) (Auto) 1 % (0-3) Basophils (%) (Auto) 1 % (0-3) Neutrophils # (Auto) 5.4 x10^3uL (1.8-7.7) Lymphocytes # (Auto) 0.4 x10^3/uL (1.0-4.8) Monocytes # (Auto) 0.6 x10^3/uL (0.0-1.1) Eosinophils # (Auto) 0.1 x10^3/uL (0.0-0.7) Basophils # (Auto) 0.0 x10^3/uL (0.0-0.2) Sodium Level 142 mmol/L (136-145) Potassium Level 3.8 mmol/L (3.5-5.1) Chloride Level 105 mmol/L (98-107) Carbon Dioxide Level 32 mmol/L (21-32) Anion Gap 5 (6-14) Blood Urea Nitrogen 15 mg/dL (7-20) Creatinine 3.3 mg/dL (0.6-1.0) Estimated GFR (Cockcroft-Gault) 16.5 BUN/Creatinine Ratio 5 (6-20) Glucose Level 115 mg/dL (70-99) Calcium Level 7.7 mg/dL (8.5-10.1) Total Bilirubin 0.3 mg/dL (0.2-1.0) Aspartate Amino Transf (AST/SGOT) 17 U/L (15-37) Alanine Aminotransferase (ALT/SGPT) 13 U/L (14-59) Alkaline Phosphatase 68 U/L (46-116) Total Protein 5.4 g/dL (6.4-8.2) Albumin 1.9 g/dL (3.4-5.0) Albumin/Globulin Ratio 0.5 (1.0-1.7) Test 06/26/18 07:34 06/26/18 08:57 Glucose (Fingerstick) 38 mg/dL (70-99) 96 mg/dL (70-99) Review of Systems Review of Systems Denies abdominal pain Denies nausea Denies vomiting Denies fever/chills Assessment and Plan Assessmemt and Plan Assessment: Abnormal Abdominal Xray - Mild wall thickening at the splenic flexure from a mass or mild diverticulitis, Mild wall thickening at the hepatic flexure and descending colon suggesting colitis, Swelling from mild fluid or hematoma at the right groin 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 Acute precipitous drop hemoglobin, hgb 5.7 on admit Melena 3 days History of EGD 10 years ago with unrecalled results CVA with no residual History CAD, CHF, DVT-on aspirin 325 and Plavix prior to admission Diabetes type 2 COPD, 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 Labs Laboratory Tests Test 06/24/18 11:06 06/24/18 16:04 06/24/18 20:16 06/25/18 02:40 Glucose (Fingerstick) 83 mg/dL (70-99) 99 mg/dL (70-99) 123 mg/dL (70-99) White Blood Count 6.7 x10^3/uL (4.0-11.0) Red Blood Count 2.56 x10^6/uL (3.50-5.40) Hemoglobin 8.0 g/dL (12.0-15.5) Hematocrit 24.8 % (36.0-47.0) Mean Corpuscular Volume 97 fL (79-100) Mean Corpuscular Hemoglobin 31 pg (25-35) Mean Corpuscular Hemoglobin Concent 32 g/dL (31-37) Red Cell Distribution Width 18.5 % (11.5-14.5) Platelet Count 278 x10^3/uL (140-400) Neutrophils (%) (Auto) 80 % (31-73) Lymphocytes (%) (Auto) 9 % (24-48) Monocytes (%) (Auto) 10 % (0-9) Eosinophils (%) (Auto) 1 % (0-3) Basophils (%) (Auto) 1 % (0-3) Neutrophils # (Auto) 5.3 x10^3uL (1.8-7.7) Lymphocytes # (Auto) 0.6 x10^3/uL (1.0-4.8) Monocytes # (Auto) 0.7 x10^3/uL (0.0-1.1) Eosinophils # (Auto) 0.1 x10^3/uL (0.0-0.7) Basophils # (Auto) 0.0 x10^3/uL (0.0-0.2) Erythrocyte Sedimentation Rate 22 (0-25) Sodium Level 141 mmol/L (136-145) Potassium Level 4.6 mmol/L (3.5-5.1) Chloride Level 109 mmol/L (98-107) Carbon Dioxide Level 21 mmol/L (21-32) Anion Gap 11 (6-14) Blood Urea Nitrogen 35 mg/dL (7-20) Creatinine 6.6 mg/dL (0.6-1.0) Estimated GFR (Cockcroft-Gault) 7.4 Glucose Level 102 mg/dL (70-99) Calcium Level 8.0 mg/dL (8.5-10.1) Test 06/25/18 07:33 06/25/18 11:33 06/25/18 16:32 06/25/18 23:19 Glucose (Fingerstick) 83 mg/dL (70-99) 59 mg/dL (70-99) 107 mg/dL (70-99) 161 mg/dL (70-99) Test 06/26/18 03:20 06/26/18 07:34 06/26/18 08:57 White Blood Count 6.5 x10^3/uL (4.0-11.0) Red Blood Count 2.57 x10^6/uL (3.50-5.40) Hemoglobin 7.8 g/dL (12.0-15.5) Hematocrit 24.0 % (36.0-47.0) Mean Corpuscular Volume 94 fL (79-100) Mean Corpuscular Hemoglobin 31 pg (25-35) Mean Corpuscular Hemoglobin Concent 33 g/dL (31-37) Red Cell Distribution Width 16.7 % (11.5-14.5) Platelet Count 248 x10^3/uL (140-400) Neutrophils (%) (Auto) 82 % (31-73) Lymphocytes (%) (Auto) 7 % (24-48) Monocytes (%) (Auto) 10 % (0-9) Eosinophils (%) (Auto) 1 % (0-3) Basophils (%) (Auto) 1 % (0-3) Neutrophils # (Auto) 5.4 x10^3uL (1.8-7.7) Lymphocytes # (Auto) 0.4 x10^3/uL (1.0-4.8) Monocytes # (Auto) 0.6 x10^3/uL (0.0-1.1) Eosinophils # (Auto) 0.1 x10^3/uL (0.0-0.7) Basophils # (Auto) 0.0 x10^3/uL (0.0-0.2) Sodium Level 142 mmol/L (136-145) Potassium Level 3.8 mmol/L (3.5-5.1) Chloride Level 105 mmol/L (98-107) Carbon Dioxide Level 32 mmol/L (21-32) Anion Gap 5 (6-14) Blood Urea Nitrogen 15 mg/dL (7-20) Creatinine 3.3 mg/dL (0.6-1.0) Estimated GFR (Cockcroft-Gault) 16.5 BUN/Creatinine Ratio 5 (6-20) Glucose Level 115 mg/dL (70-99) Calcium Level 7.7 mg/dL (8.5-10.1) Total Bilirubin 0.3 mg/dL (0.2-1.0) Aspartate Amino Transf (AST/SGOT) 17 U/L (15-37) Alanine Aminotransferase (ALT/SGPT) 13 U/L (14-59) Alkaline Phosphatase 68 U/L (46-116) Total Protein 5.4 g/dL (6.4-8.2) Albumin 1.9 g/dL (3.4-5.0) Albumin/Globulin Ratio 0.5 (1.0-1.7) Glucose (Fingerstick) 38 mg/dL (70-99) 96 mg/dL (70-99) Laboratory Tests Test 06/25/18 11:33 06/25/18 16:32 06/25/18 23:19 06/26/18 03:20 Glucose (Fingerstick) 59 mg/dL (70-99) 107 mg/dL (70-99) 161 mg/dL (70-99) White Blood Count 6.5 x10^3/uL (4.0-11.0) Red Blood Count 2.57 x10^6/uL (3.50-5.40) Hemoglobin 7.8 g/dL (12.0-15.5) Hematocrit 24.0 % (36.0-47.0) Mean Corpuscular Volume 94 fL (79-100) Mean Corpuscular Hemoglobin 31 pg (25-35) Mean Corpuscular Hemoglobin Concent 33 g/dL (31-37) Red Cell Distribution Width 16.7 % (11.5-14.5) Platelet Count 248 x10^3/uL (140-400) Neutrophils (%) (Auto) 82 % (31-73) Lymphocytes (%) (Auto) 7 % (24-48) Monocytes (%) (Auto) 10 % (0-9) Eosinophils (%) (Auto) 1 % (0-3) Basophils (%) (Auto) 1 % (0-3) Neutrophils # (Auto) 5.4 x10^3uL (1.8-7.7) Lymphocytes # (Auto) 0.4 x10^3/uL (1.0-4.8) Monocytes # (Auto) 0.6 x10^3/uL (0.0-1.1) Eosinophils # (Auto) 0.1 x10^3/uL (0.0-0.7) Basophils # (Auto) 0.0 x10^3/uL (0.0-0.2) Sodium Level 142 mmol/L (136-145) Potassium Level 3.8 mmol/L (3.5-5.1) Chloride Level 105 mmol/L (98-107) Carbon Dioxide Level 32 mmol/L (21-32) Anion Gap 5 (6-14) Blood Urea Nitrogen 15 mg/dL (7-20) Creatinine 3.3 mg/dL (0.6-1.0) Estimated GFR (Cockcroft-Gault) 16.5 BUN/Creatinine Ratio 5 (6-20) Glucose Level 115 mg/dL (70-99) Calcium Level 7.7 mg/dL (8.5-10.1) Total Bilirubin 0.3 mg/dL (0.2-1.0) Aspartate Amino Transf (AST/SGOT) 17 U/L (15-37) Alanine Aminotransferase (ALT/SGPT) 13 U/L (14-59) Alkaline Phosphatase 68 U/L (46-116) Total Protein 5.4 g/dL (6.4-8.2) Albumin 1.9 g/dL (3.4-5.0) Albumin/Globulin Ratio 0.5 (1.0-1.7) Test 06/26/18 07:34 06/26/18 08:57 Glucose (Fingerstick) 38 mg/dL (70-99) 96 mg/dL (70-99) Medications Current Medications Pantoprazole Sodium (PROTONIX VIAL for IV PUSH) 80 mg 1X ONCE IVP Last administered on 06/22/18at 22:08; Start 06/22/18 at 22:00; Stop 06/22/18 at 22:01 ; Status DC Acetaminophen (Tylenol) 500 mg PRN Q6HRS PRN PO MILD PAIN / TEMP; Start at 08:45 Acetaminophen/ Codeine Phosphate (Tylenol #3) 1 tab PRN Q6HRS PRN PO PAIN MODERATE; Start 06/23/18 at 08:45 Ondansetron HCl (Zofran) 4 mg PRN Q6HRS PRN IV NAUSEA/VOMITING; Start 06/23/18 at 08:45 Ondansetron HCl (Zofran Odt) 4 mg PRN Q6HRS PRN PO NAUSEA/VOMITING FIRST CHOICE ; Start 06/23/18 at 08:45 Insulin Human Lispro (HumaLOG) 0-7 UNITS TIDWMEALS SQ ; Start 06/23/18 at 12:00 Dextrose (Dextrose 50%-Water Syringe) 12.5 gm PRN Q15MIN PRN IV SEE COMMENTS Last administered on 06/26/18at 07:37; Start 06/23/18 at 08:45 Albuterol Sulfate (Ventolin Neb Soln) 2.5 mg PRN Q6HRS PRN INH SHORTNESS OF BREATH; Start 06/23/18 at 08:45; Stop 06/23/18 at 09:15; Status DC Amiodarone HCl (Cordarone) 200 mg DAILY PO Last administered on 06/24/18 09:10 ; Start 06/23/18 at 09:00 Atorvastatin Calcium (Lipitor) 40 mg HS PO Last administered on 06/25/18 23:18 ; Start 06/23/18 at 21:00 Vitamin B Complex/ Vitamin C (Marina-Jayme) 1 tab DAILY PO Last administered on at 09:08; Start 06/23/18 at 09:00 Furosemide (Lasix) 40 mg DAILY PO Last administered on 06/24/18 09:10; Start 06/23/18 at 09:00 Acetaminophen/ Hydrocodone Bitart (Lortab 5/325) 1 tab PRN Q6HRS PRN PO BACK PAIN MODERATE TO SEVERE Last administered on 06/26/18 04:21; Start 06/23/18 at 08:45 Insulin Glargine (Lantus) 15 units QHS SQ Last administered on 06/25/18 23:26 ; Start 06/23/18 at 21:00 Lisinopril (Prinivil) 20 mg DAILY PO Last administered on 06/24/18 09:10; Start 06/23/18 at 09:00 Metoprolol Succinate (Toprol Xl) 100 mg DAILY PO Last administered on at 09:11; Start 06/23/18 at 09:00 Non-Formulary Medication (Budesonide/ Formoterol Fumarate (Symbicort 160-4.5 Mcg Inhaler)) 2 puff BID IH ; Start 06/23/18 at 09:00; Status UNV Diltiazem HCl (Cardizem 24hr Cd) 180 mg DAILY PO ; Start 06/24/18 at 10:00 Hydroxyzine Pamoate (Vistaril) 50 mg QMWF PO Last administered on 06/25/18at 16: 07; Start 06/25/18 at 16:00 Non-Formulary Medication ([Albuterol Sulfate] ) 2.5 mg PRN Q4HRS PRN NEB SHORTNESS OF BREATH; Start 06/23/18 at 08:45; Status UNV Albuterol Sulfate (Ventolin Neb Soln) 2.5 mg RTQID NEB Last administered on at 07:16; Start 06/23/18 at 12:00 Budesonide (Pulmicort) 0.5 mg RTBID NEB Last administered on 06/26/18at 07:16; Start 06/23/18 at 20:00 Albuterol Sulfate (Ventolin Neb Soln) 2.5 mg PRN Q4HRS PRN NEB SHORTNESS OF BREATH; Start 06/23/18 at 09:15 Pantoprazole Sodium (PROTONIX VIAL for IV PUSH) 40 mg BIDAC IVP ; Start at 16:30; Status Cancel Pantoprazole Sodium (PROTONIX VIAL for IV PUSH) 40 mg DAILYAC IVP Last administered on 06/26/18at 06:46; Start 06/23/18 at 14:00 Metronidazole 100 ml @ 100 mls/hr Q12HR IV Last administered on 06/26/18at 09: 02; Start 06/23/18 at 21:00 Ciprofloxacin/ Dextrose 200 ml @ 200 mls/hr Q24H IV Last administered on at 23:17; Start 06/23/18 at 20:00 Lactobacillus Rhamnosus (Culturelle) 1 cap BID PO Last administered on at 23:18; Start 06/25/18 at 21:00 Lidocaine HCl (Xylocaine-Mpf 1% 2ml Vial) 2 ml STK-MED ONCE .ROUTE ; Start 06/25 at 17:16; Stop 06/25/18 at 17:17; Status DC Sodium Chloride 1,000 ml @ 1,000 mls/hr Q1H PRN IV hypotension; Start 06/25/18 at 18:28; Stop 06/26/18 at 00:27; Status DC Diphenhydramine HCl (Benadryl) 25 mg 1X PRN PRN IV ITCHING; Start 06/25/18 at 18:30; Stop 06/26/18 at 18:29 Diphenhydramine HCl (Benadryl) 25 mg 1X PRN PRN IV ITCHING; Start 06/25/18 at 18:30; Stop 06/26/18 at 18:29 Sodium Chloride 1,000 ml @ 400 mls/hr Q2H30M PRN IV PATENCY; Start 06/25/18 at 18:28; Stop 06/26/18 at 06:27; Status DC Info (PHARMACY MONITORING -- do not chart) 1 each PRN DAILY PRN MC SEE COMMENTS ; Start 06/25/18 at 18:30 Lidocaine HCl (Xylocaine-Mpf 1% 2ml Vial) 2 ml STK-MED ONCE .ROUTE ; Start 06/25 at 17:30; Stop 06/26/18 at 09:08; Status DC Active Scripts Active Amiodarone Hcl 200 Mg Tablet 200 Mg PO DAILY MDD 1 Eliquis (Apixaban) 5 Mg Tablet 5 Mg PO BID MDD ` [Albuterol Sulfate] 2.5 MG/3 ML Nebu 2.5 Mg NEB PRN Q4HRS PRN Reported Diltiazem 24HR Cd (Diltiazem Hcl) 180 Mg Cap.er.24h 180 Mg PO DAILY Lipitor (Atorvastatin Calcium) 40 Mg Tablet 40 Mg PO HS Hydrocodone-Acetamin 5-325 mg (Hydrocodone/Acetaminophen) 1 Each Tablet 1 Each PO PRN Q6HRS PRN Furosemide 40 Mg Tablet 40 Mg PO DAILY Symbicort 160-4.5 Mcg Inhaler (Budesonide/Formoterol Fumarate) 10.2 Gm Hfa.aer.ad 2 Puff IH BID Toprol Xl (Metoprolol Succinate) 100 Mg Tab.er.24h 100 Mg PO DAILY Proair Hfa Inhaler (Albuterol Sulfate) 8.5 Gm Hfa.aer.ad 1 Puff INH PRN Q6HRS PRN Marina-Jayme Tablet (Folic Acid/Vitamin B Comp W-C) 0.8 Mg Tablet 0.8 Mg PO DAILY Hydroxyzine Hcl 25 Mg Tablet 50 Mg PO QMWF Lisinopril 20 Mg Tablet 1 Tab PO DAILY Lantus Solostar (Insulin Glargine,Hum.rec.anlog) 100 Unit/1 Ml Insuln.pen 15 Unit SQ QHS Aspirin 325 Mg Tablet 1 Tab PO DAILY Vitals/I & O Vital Sign - Last 24 Hours 06/25/18 06/25/18 06/25/18 06/25/18 11:00 11:15 15:00 16:15 Temp 97.5 98.2 97.5 98.2 Pulse 60 62 Resp 16 16 B/P (MAP) 147/51 (83) 117/45 (69) Pulse Ox 100 98 100 O2 Delivery Room Air Nasal Cannula Room Air Nasal Cannula O2 Flow Rate 2.0 2.0 06/25/18 06/25/18 06/26/18 06/26/18 21:30 23:00 03:00 04:21 Temp 98.9 98.7 98.9 98.7 Pulse 72 57 Resp 18 18 B/P (MAP) 137/37 (70) 112/40 (64) Pulse Ox 100 100 O2 Delivery Nasal Cannula Room Air Room Air Nasal Cannula O2 Flow Rate 2.0 06/26/18 06/26/18 06/26/18 05:23 07:00 07:16 Temp 97.9 97.9 Pulse 59 Resp 18 B/P (MAP) 115/34 (61) Pulse Ox 100 100 100 O2 Delivery Nasal Cannula Room Air Nasal Cannula O2 Flow Rate 2.0 2.0 Intake and Output 06/25/18 06/25/18 06/26/18 15:00 23:00 07:00 Intake Total 550 ml Balance 550 ml YULIA DE ANDA III DO Jun 26, 2018 10:11
[2018-06-26] MEDS ORDERED: IV NORMAL SALINE 1000ML BAG 1,000 ML IV SCH (11:00)
[2018-06-26] MEDS ORDERED: PROPOFOL 20 ML IV ONE (11:41)
--- NOTE | 2018-06-26 12:04 | PDOC4 ---
PROCEDURE Procedure EGD/biopsies Indication: Anemia/"melena" Meds: per anesthesia Findings: E--Grade A esophagitis at 35cm. G--Small HH. Non-specific striped erythema, pre-pyloric, biopsied. D--Normal to second portion. Biopsies re: atrophy. Zena. well. IMP: Mild reflux. Tiny HH Prepyloric erythema, non-specific REC: Continue meds, diet. Await biopsies. Consider outpatient colonoscopy. Thanks. ROSALIA RODRIGUEZ MD Jun 26, 2018 12:04
--- NOTE | 2018-06-26 12:38 | PDOC2 ---
CONSULT Date of Consult Date of Consult DATE: 06/26/18 TIME: 12:33 Reason for Consult Reason for Consult: ESRD Source Source: Chart review, Patient History of Present Illness Reason for Visit: 72-year-old -[place] female who lives at home with , several comorbidities including COPD, CHF, CAD, DVT, diabetes, CVA hx on Plavix and aspirin 325 at home for cardiac and DVT issues and history of CVA. Comes in because of few day history (3D) of black stools. Went to PCP, PCP told her hemoglobin was low and advised ER. At ER hemoglobin 5.7, s/p PRBC EGD today . She has ESRD on HD MWF,dialyzed yesterday during inpatient Past Medical History Cardiovascular: AFIB, CAD, CHF, HTN, Hyperlipidemia, Other Pulmonary: Asthma, COPD, Other CENTRAL NERVOUS SYSTEM: Other GI: Diverticulosis Heme/Onc: Anemia NOS Psych: Anxiety Rheumatologic: No pertinent hx Infectious disease: No pertinent hx Renal/: Chronic renal failure Endocrine: Diabetes, Hyperparathyroidism Past Surgical History Past Surgical History: Appendectomy, Arthroscopy, Cataract Removal, Other Family History Family History: Coronary Artery Disease, Diabetes, Hypertension Social History No ALCOHOL: none Drugs: None Lives: with Family Domestic Violence: Neg Current Medications Current Medications Current Medications Pantoprazole Sodium (PROTONIX VIAL for IV PUSH) 80 mg 1X ONCE IVP Last administered on 06/22/18at 22:08; Start 06/22/18 at 22:00; Stop 06/22/18 at 22:01 ; Status DC Acetaminophen (Tylenol) 500 mg PRN Q6HRS PRN PO MILD PAIN / TEMP; Start at 08:45 Acetaminophen/ Codeine Phosphate (Tylenol #3) 1 tab PRN Q6HRS PRN PO PAIN MODERATE; Start 06/23/18 at 08:45 Ondansetron HCl (Zofran) 4 mg PRN Q6HRS PRN IV NAUSEA/VOMITING; Start 06/23/18 at 08:45 Ondansetron HCl (Zofran Odt) 4 mg PRN Q6HRS PRN PO NAUSEA/VOMITING FIRST CHOICE ; Start 06/23/18 at 08:45 Insulin Human Lispro (HumaLOG) 0-7 UNITS TIDWMEALS SQ ; Start 06/23/18 at 12:00 Dextrose (Dextrose 50%-Water Syringe) 12.5 gm PRN Q15MIN PRN IV SEE COMMENTS Last administered on 06/26/18 07:37; Start 06/23/18 at 08:45 Albuterol Sulfate (Ventolin Neb Soln) 2.5 mg PRN Q6HRS PRN INH SHORTNESS OF BREATH; Start 06/23/18 at 08:45; Stop 06/23/18 at 09:15; Status DC Amiodarone HCl (Cordarone) 200 mg DAILY PO Last administered on 06/24/18at 09:10 ; Start 06/23/18 at 09:00 Atorvastatin Calcium (Lipitor) 40 mg HS PO Last administered on 06/25/18 23:18 ; Start 06/23/18 at 21:00 Vitamin B Complex/ Vitamin C (Marina-Jayme) 1 tab DAILY PO Last administered on 09:08; Start 06/23/18 at 09:00 Furosemide (Lasix) 40 mg DAILY PO Last administered on 06/24/18 09:10; Start 06/23/18 at 09:00 Acetaminophen/ Hydrocodone Bitart (Lortab 5/325) 1 tab PRN Q6HRS PRN PO BACK PAIN MODERATE TO SEVERE Last administered on 06/26/18 04:21; Start 06/23/18 at 08:45 Insulin Glargine (Lantus) 15 units QHS SQ Last administered on 06/25/18 23:26 ; Start 06/23/18 at 21:00 Lisinopril (Prinivil) 20 mg DAILY PO Last administered on 06/24/18at 09:10; Start 06/23/18 at 09:00 Metoprolol Succinate (Toprol Xl) 100 mg DAILY PO Last administered on at 09:11; Start 06/23/18 at 09:00 Non-Formulary Medication (Budesonide/ Formoterol Fumarate (Symbicort 160-4.5 Mcg Inhaler)) 2 puff BID IH ; Start 06/23/18 at 09:00; Status UNV Diltiazem HCl (Cardizem 24hr Cd) 180 mg DAILY PO ; Start 06/24/18 at 10:00 Hydroxyzine Pamoate (Vistaril) 50 mg QMWF PO Last administered on 06/25/18at 16: 07; Start 06/25/18 at 16:00 Non-Formulary Medication ([Albuterol Sulfate] ) 2.5 mg PRN Q4HRS PRN NEB SHORTNESS OF BREATH; Start 06/23/18 at 08:45; Status UNV Albuterol Sulfate (Ventolin Neb Soln) 2.5 mg RTQID NEB Last administered on at 07:16; Start 06/23/18 at 12:00 Budesonide (Pulmicort) 0.5 mg RTBID NEB Last administered on 06/26/18at 07:16; Start 06/23/18 at 20:00 Albuterol Sulfate (Ventolin Neb Soln) 2.5 mg PRN Q4HRS PRN NEB SHORTNESS OF BREATH; Start 06/23/18 at 09:15 Pantoprazole Sodium (PROTONIX VIAL for IV PUSH) 40 mg BIDAC IVP ; Start at 16:30; Status Cancel Pantoprazole Sodium (PROTONIX VIAL for IV PUSH) 40 mg DAILYAC IVP Last administered on 06/26/18at 06:46; Start 06/23/18 at 14:00 Metronidazole 100 ml @ 100 mls/hr Q12HR IV Last administered on 06/26/18at 09: 02; Start 06/23/18 at 21:00 Ciprofloxacin/ Dextrose 200 ml @ 200 mls/hr Q24H IV Last administered on at 23:17; Start 06/23/18 at 20:00 Lactobacillus Rhamnosus (Culturelle) 1 cap BID PO Last administered on at 23:18; Start 06/25/18 at 21:00 Lidocaine HCl (Xylocaine-Mpf 1% 2ml Vial) 2 ml STK-MED ONCE .ROUTE ; Start 06/25 at 17:16; Stop 06/25/18 at 17:17; Status DC Sodium Chloride 1,000 ml @ 1,000 mls/hr Q1H PRN IV hypotension; Start 06/25/18 at 18:28; Stop 06/26/18 at 00:27; Status DC Diphenhydramine HCl (Benadryl) 25 mg 1X PRN PRN IV ITCHING; Start 06/25/18 at 18:30; Stop 06/26/18 at 18:29 Diphenhydramine HCl (Benadryl) 25 mg 1X PRN PRN IV ITCHING; Start 06/25/18 at 18:30; Stop 06/26/18 at 18:29 Sodium Chloride 1,000 ml @ 400 mls/hr Q2H30M PRN IV PATENCY; Start 06/25/18 at 18:28; Stop 06/26/18 at 06:27; Status DC Info (PHARMACY MONITORING -- do not chart) 1 each PRN DAILY PRN MC SEE COMMENTS ; Start 06/25/18 at 18:30 Lidocaine HCl (Xylocaine-Mpf 1% 2ml Vial) 2 ml STK-MED ONCE .ROUTE ; Start 06/25 at 17:30; Stop 06/26/18 at 09:08; Status DC Sodium Chloride 1,000 ml @ 75 mls/hr [id number] IV Last administered on at 10:56; Start 06/26/18 at 11:00; Stop 06/26/18 at 12:06; Status DC Propofol 20 ml @ As Directed STK-MED ONCE IV ; Start 06/26/18 at 11:41; Stop at 11:42; Status DC Active Scripts Active Amiodarone Hcl 200 Mg Tablet 200 Mg PO DAILY MDD 1 Eliquis (Apixaban) 5 Mg Tablet 5 Mg PO BID MDD ` [Albuterol Sulfate] 2.5 MG/3 ML Nebu 2.5 Mg NEB PRN Q4HRS PRN Reported Diltiazem 24HR Cd (Diltiazem Hcl) 180 Mg Cap.er.24h 180 Mg PO DAILY Lipitor (Atorvastatin Calcium) 40 Mg Tablet 40 Mg PO HS Hydrocodone-Acetamin 5-325 mg (Hydrocodone/Acetaminophen) 1 Each Tablet 1 Each PO PRN Q6HRS PRN Furosemide 40 Mg Tablet 40 Mg PO DAILY Symbicort 160-4.5 Mcg Inhaler (Budesonide/Formoterol Fumarate) 10.2 Gm Hfa.aer.ad 2 Puff IH BID Toprol Xl (Metoprolol Succinate) 100 Mg Tab.er.24h 100 Mg PO DAILY Proair Hfa Inhaler (Albuterol Sulfate) 8.5 Gm Hfa.aer.ad 1 Puff INH PRN Q6HRS PRN Marina-Jayme Tablet (Folic Acid/Vitamin B Comp W-C) 0.8 Mg Tablet 0.8 Mg PO DAILY Hydroxyzine Hcl 25 Mg Tablet 50 Mg PO QMWF Lisinopril 20 Mg Tablet 1 Tab PO DAILY Lantus Solostar (Insulin Glargine,Hum.rec.anlog) 100 Unit/1 Ml Insuln.pen 15 Unit SQ QHS Aspirin 325 Mg Tablet 1 Tab PO DAILY Allergies Allergies: Coded Allergies: Iodinated Contrast- Oral and IV Dye (Verified Allergy, Intermediate, ) ROS Review of System As per HPI Physical Exam Physical Exam General: No acute distress HEENT: Atraumatic, PERRLA, EOMI, Other (pale palpebral conjunctivae) Lungs: Clear to auscultation, Normal air movement Heart: S1S2, RRR, no thrills, no rubs, no gallops, no murmurs Cardiovascular: S1, S2 Breasts: Normal, Rt breast nml w/o mass, Lt breast nml w/o mass, Nipples normal Abdomen: Normal bowel sounds, Soft, No tenderness, No hepatosplenomegaly, No masses Extremities: No clubbing, No cyanosis, No edema, Normal pulses, No tenderness/ swelling Skin: No rashes, No breakdown, No significant lesion Neuro: Normal gait, Normal speech, Strength at 5/5 X4 ext, Normal tone, Sensation intact, Cranial nerves 3-12 NL, Reflexes 2+ Vital Signs Vital Signs Date Time Temp Pulse Resp B/P (MAP) Pulse Ox O2 Delivery O2 Flow Rate FiO2 06/26/18 12:28 58 20 119/58 95 Nasal Cannula 3 06/26/18 12:00 97.5 97.5 Assessment & Plan ESRD - On HD MWF Dialyzed yesterday , Currently No indication today Tomorrow as per schedule Acute Anemia- +fecal occult - improved w/ transfusions, EGD today Chronic anemia, iron-deficient in 2016, on Plavix and ASA at home Abnormal CT - wall thickening in gastric antrum and mild wall thickening at splenic flexure, hepatic flexure, and descending colon Labs Labs Laboratory Tests Test 06/24/18 16:04 06/24/18 20:16 06/25/18 02:40 06/25/18 07:33 Glucose (Fingerstick) 99 mg/dL (70-99) 123 mg/dL (70-99) 83 mg/dL (70-99) White Blood Count 6.7 x10^3/uL (4.0-11.0) Red Blood Count 2.56 x10^6/uL (3.50-5.40) Hemoglobin 8.0 g/dL (12.0-15.5) Hematocrit 24.8 % (36.0-47.0) Mean Corpuscular Volume 97 fL (79-100) Mean Corpuscular Hemoglobin 31 pg (25-35) Mean Corpuscular Hemoglobin Concent 32 g/dL (31-37) Red Cell Distribution Width 18.5 % (11.5-14.5) Platelet Count 278 x10^3/uL (140-400) Neutrophils (%) (Auto) 80 % (31-73) Lymphocytes (%) (Auto) 9 % (24-48) Monocytes (%) (Auto) 10 % (0-9) Eosinophils (%) (Auto) 1 % (0-3) Basophils (%) (Auto) 1 % (0-3) Neutrophils # (Auto) 5.3 x10^3uL (1.8-7.7) Lymphocytes # (Auto) 0.6 x10^3/uL (1.0-4.8) Monocytes # (Auto) 0.7 x10^3/uL (0.0-1.1) Eosinophils # (Auto) 0.1 x10^3/uL (0.0-0.7) Basophils # (Auto) 0.0 x10^3/uL (0.0-0.2) Erythrocyte Sedimentation Rate 22 (0-25) Sodium Level 141 mmol/L (136-145) Potassium Level 4.6 mmol/L (3.5-5.1) Chloride Level 109 mmol/L (98-107) Carbon Dioxide Level 21 mmol/L (21-32) Anion Gap 11 (6-14) Blood Urea Nitrogen 35 mg/dL (7-20) Creatinine 6.6 mg/dL (0.6-1.0) Estimated GFR (Cockcroft-Gault) 7.4 Glucose Level 102 mg/dL (70-99) Calcium Level 8.0 mg/dL (8.5-10.1) Test 06/25/18 11:33 06/25/18 16:32 06/25/18 23:19 06/26/18 03:20 Glucose (Fingerstick) 59 mg/dL (70-99) 107 mg/dL (70-99) 161 mg/dL (70-99) White Blood Count 6.5 x10^3/uL (4.0-11.0) Red Blood Count 2.57 x10^6/uL (3.50-5.40) Hemoglobin 7.8 g/dL (12.0-15.5) Hematocrit 24.0 % (36.0-47.0) Mean Corpuscular Volume 94 fL (79-100) Mean Corpuscular Hemoglobin 31 pg (25-35) Mean Corpuscular Hemoglobin Concent 33 g/dL (31-37) Red Cell Distribution Width 16.7 % (11.5-14.5) Platelet Count 248 x10^3/uL (140-400) Neutrophils (%) (Auto) 82 % (31-73) Lymphocytes (%) (Auto) 7 % (24-48) Monocytes (%) (Auto) 10 % (0-9) Eosinophils (%) (Auto) 1 % (0-3) Basophils (%) (Auto) 1 % (0-3) Neutrophils # (Auto) 5.4 x10^3uL (1.8-7.7) Lymphocytes # (Auto) 0.4 x10^3/uL (1.0-4.8) Monocytes # (Auto) 0.6 x10^3/uL (0.0-1.1) Eosinophils # (Auto) 0.1 x10^3/uL (0.0-0.7) Basophils # (Auto) 0.0 x10^3/uL (0.0-0.2) Sodium Level 142 mmol/L (136-145) Potassium Level 3.8 mmol/L (3.5-5.1) Chloride Level 105 mmol/L (98-107) Carbon Dioxide Level 32 mmol/L (21-32) Anion Gap 5 (6-14) Blood Urea Nitrogen 15 mg/dL (7-20) Creatinine 3.3 mg/dL (0.6-1.0) Estimated GFR (Cockcroft-Gault) 16.5 BUN/Creatinine Ratio 5 (6-20) Glucose Level 115 mg/dL (70-99) Calcium Level 7.7 mg/dL (8.5-10.1) Total Bilirubin 0.3 mg/dL (0.2-1.0) Aspartate Amino Transf (AST/SGOT) 17 U/L (15-37) Alanine Aminotransferase (ALT/SGPT) 13 U/L (14-59) Alkaline Phosphatase 68 U/L (46-116) Total Protein 5.4 g/dL (6.4-8.2) Albumin 1.9 g/dL (3.4-5.0) Albumin/Globulin Ratio 0.5 (1.0-1.7) Test 06/26/18 07:34 06/26/18 08:57 Glucose (Fingerstick) 38 mg/dL (70-99) 96 mg/dL (70-99) Laboratory Tests Test 06/25/18 16:32 06/25/18 23:19 06/26/18 03:20 06/26/18 07:34 Glucose (Fingerstick) 107 mg/dL (70-99) 161 mg/dL (70-99) 38 mg/dL (70-99) White Blood Count 6.5 x10^3/uL (4.0-11.0) Red Blood Count 2.57 x10^6/uL (3.50-5.40) Hemoglobin 7.8 g/dL (12.0-15.5) Hematocrit 24.0 % (36.0-47.0) Mean Corpuscular Volume 94 fL (79-100) Mean Corpuscular Hemoglobin 31 pg (25-35) Mean Corpuscular Hemoglobin Concent 33 g/dL (31-37) Red Cell Distribution Width 16.7 % (11.5-14.5) Platelet Count 248 x10^3/uL (140-400) Neutrophils (%) (Auto) 82 % (31-73) Lymphocytes (%) (Auto) 7 % (24-48) Monocytes (%) (Auto) 10 % (0-9) Eosinophils (%) (Auto) 1 % (0-3) Basophils (%) (Auto) 1 % (0-3) Neutrophils # (Auto) 5.4 x10^3uL (1.8-7.7) Lymphocytes # (Auto) 0.4 x10^3/uL (1.0-4.8) Monocytes # (Auto) 0.6 x10^3/uL (0.0-1.1) Eosinophils # (Auto) 0.1 x10^3/uL (0.0-0.7) Basophils # (Auto) 0.0 x10^3/uL (0.0-0.2) Sodium Level 142 mmol/L (136-145) Potassium Level 3.8 mmol/L (3.5-5.1) Chloride Level 105 mmol/L (98-107) Carbon Dioxide Level 32 mmol/L (21-32) Anion Gap 5 (6-14) Blood Urea Nitrogen 15 mg/dL (7-20) Creatinine 3.3 mg/dL (0.6-1.0) Estimated GFR (Cockcroft-Gault) 16.5 BUN/Creatinine Ratio 5 (6-20) Glucose Level 115 mg/dL (70-99) Calcium Level 7.7 mg/dL (8.5-10.1) Total Bilirubin 0.3 mg/dL (0.2-1.0) Aspartate Amino Transf (AST/SGOT) 17 U/L (15-37) Alanine Aminotransferase (ALT/SGPT) 13 U/L (14-59) Alkaline Phosphatase 68 U/L (46-116) Total Protein 5.4 g/dL (6.4-8.2) Albumin 1.9 g/dL (3.4-5.0) Albumin/Globulin Ratio 0.5 (1.0-1.7) Test 06/26/18 08:57 Glucose (Fingerstick) 96 mg/dL (70-99) Review All relevant outside records, renal labs, imaging studies, telemetry/EKG's were reviewed. DESIREE MELARA MD Jun 26, 2018 12:37
[2018-06-26 15:00] VITALS: BP 115/49
[2018-06-26 19:20] VITALS: BP 123/42
[2018-06-26] MEDS: ATORVASTATIN CALCIUM 40 MG TABLET. PO SCH (20:48)
[2018-06-26] MEDS: CIPROFLOXACIN 400MG PREMIX 200 ML IV SCH (20:48)
[2018-06-26] MEDS: INSULIN GLARGINE 300 UNITS/3 ML INSULN.PEN. SQ SCH (20:53)
[2018-06-26 23:25] VITALS: BP 142/42
[2018-06-27 02:41] VITALS: BP 130/50
[2018-06-27 05:10] LABS: BASO % 0 % (0-3); EOS # 0.1 x10^3/uL (0.0-0.7); EOS % 1 % (0-3); HEMATOCRIT 24.2 % (36.0-47.0); HEMOGLOBIN 7.8 g/dL (12.0-15.5); LYMPH # 0.5 x10^3/uL (1.0-4.8); LYMPH % 7 % (24-48); MEAN CORPUSCULAR HEMOGLOBIN 31 pg (25-35); MEAN CORPUSCULAR HGB CONC 32 g/dL (31-37); MEAN CORPUSCULAR VOLUME 95 fL (79-100); MONO # 0.7 x10^3/uL (0.0-1.1); MONO % 11 % (0-9); NEUT # 5.3 x10^3uL (1.8-7.7); NEUT % 81 % (31-73); PLATELET COUNT 265 x10^3/uL (140-400); RED BLOOD COUNT 2.55 x10^6/uL (3.50-5.40); RED CELL DISTRIBUTION WIDTH 16.8 % (11.5-14.5); WHITE BLOOD COUNT 6.5 x10^3/uL (4.0-11.0)
[2018-06-27 05:38] LABS: ALBUMIN/GLOBULIN RATIO 0.6 (1.0-1.7); CALCIUM 7.4 mg/dL (8.5-10.1); CREATININE 4.9 mg/dL (0.6-1.0); GFR 10.5; TOTAL BILIRUBIN 0.3 mg/dL (0.2-1.0); TOTAL PROTEIN 5.6 g/dL (6.4-8.2)
[2018-06-27] MEDS: DEXTROSE 50% 25 GM / 50ML DISP.SYRIN. IV PRN (06:16)
[2018-06-27 07:00] VITALS: BP 117/75
[2018-06-27] MEDS: PANTOPRAZOLE IV PUSH 40 MG VIAL. IVP SCH (07:30)
[2018-06-27] MEDS: BUDESONIDE 0.5 MG/2 ML NEBU. NEB SCH (07:36)
[2018-06-27] MEDS: ALBUTEROL SULFATE 2.5 MG/3 ML NEBU. NEB SCH ×3 (07:36→14:54)
[2018-06-27] MEDS: INSULIN LISPRO 300 UNITS/3 ML INSULN.PEN. SQ SCH ×2 (08:00→13:31)
[2018-06-27] MEDS ORDERED: IV NORMAL SALINE 1000ML BAG 1,000 ML IV PRN ×2 (08:03)
[2018-06-27] MEDS ORDERED: DIALYSIS PATIENT. MC PRN (08:15)
[2018-06-27] MEDS ORDERED: diphenhydrAMINE 50 MG/ML VIAL IV PRN ×2 (08:15)
[2018-06-27] MEDS ORDERED: LIDOCAINE 1% PF 2 ML VIAL. ONE ×2 (08:46→09:00)
[2018-06-27] MEDS: LISINOPRIL 20 MG TABLET PO SCH (09:00)
[2018-06-27] MEDS: FUROSEMIDE 40 MG TABLET. PO SCH (09:00)
[2018-06-27] MEDS: METOPROLOL SUCC 24HR ER 100 MG TAB.ER.24H. PO SCH (09:00)
[2018-06-27] MEDS: LACTOBACILLUS RHAMNOSUS GG 1 CAPSULE. PO SCH (09:00)
[2018-06-27] MEDS: FOLIC/VIT B COMP W-C (RENAL) TABLET. PO SCH (09:00)
[2018-06-27] MEDS: AMIODARONE HCL 200 MG TABLET. PO SCH (09:00)
--- NOTE | 2018-06-27 11:29 | PDOC ---
Subjective: Subjective: Says she'd like to go home today. Feeling okay, denies bleeding. Objective: Vital Signs: Vital Signs Date Time Temp Pulse Resp B/P (MAP) Pulse Ox O2 Delivery O2 Flow Rate FiO2 06/27/18 07:45 Nasal Cannula 06/27/18 07:37 98 2.0 06/27/18 07:00 97.6 65 18 117/75 (89) 97.6 Labs: Laboratory Tests Test 06/26/18 16:25 06/26/18 20:47 06/27/18 05:57 06/27/18 06:14 Glucose (Fingerstick) 150 mg/dL (70-99) 217 mg/dL (70-99) 47 mg/dL (70-99) 62 mg/dL (70-99) Test 06/27/18 06:39 06/27/18 07:23 Glucose (Fingerstick) 90 mg/dL (70-99) 107 mg/dL (70-99) Imaging: EGD 06/26 E--Grade A esophagitis at 35cm. G--Small HH. Non-specific striped erythema, pre-pyloric, biopsied. D--Normal to second portion. Biopsies re: atrophy. IMP: Mild reflux. Tiny HH Prepyloric erythema, non-specific PE: GEN: dialyzing LUNGS: NC HEART: RRR ABD: S/ND/NT NEURO/PSYCH: A & O 3 A/P: Melena (resolved), chronic anemia, +fecal occult - stable, EGD as above Abnormal CTs -- DC per primary. Change to PO PPI. Follow-up re: biopsy results and for outpt colonoscopy. ?need for IV atbx CHRISTIAN VU Jun 27, 2018 11:29
--- NOTE | 2018-06-27 11:51 | PDOC ---
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 Banks was seen and examined at HD today, resting comfortably. EGD showed esophagitis, nonspecific striped erythema, small hiatal hernia, awaiting biopsy results. Nephrology and GI following. HD MWF. Vitals Vitals Vital Signs Date Time Temp Pulse Resp B/P (MAP) Pulse Ox O2 Delivery O2 Flow Rate FiO2 06/27/18 07:45 Nasal Cannula 06/27/18 07:37 98 2.0 06/27/18 07:00 97.6 65 18 117/75 (89) 97.6 Physical Exam General: Alert, Oriented X3, No acute distress Heart: Regular rate, No murmurs, Other (mild pain under R breast, no associated symptoms) Lungs: Clear Abdomen: Normal bowel sounds, Soft, No tenderness, No masses Extremities: No clubbing, No cyanosis, No edema, Normal pulses, No tenderness/ swelling Skin: No rashes, No significant lesion Labs LABS Laboratory Tests Test 06/26/18 16:25 06/26/18 20:47 06/27/18 04:05 06/27/18 05:57 Glucose (Fingerstick) 150 mg/dL (70-99) 217 mg/dL (70-99) 47 mg/dL (70-99) White Blood Count 6.5 x10^3/uL (4.0-11.0) Red Blood Count 2.55 x10^6/uL (3.50-5.40) Hemoglobin 7.8 g/dL (12.0-15.5) Hematocrit 24.2 % (36.0-47.0) Mean Corpuscular Volume 95 fL (79-100) Mean Corpuscular Hemoglobin 31 pg (25-35) Mean Corpuscular Hemoglobin Concent 32 g/dL (31-37) Red Cell Distribution Width 16.8 % (11.5-14.5) Platelet Count 265 x10^3/uL (140-400) Neutrophils (%) (Auto) 81 % (31-73) Lymphocytes (%) (Auto) 7 % (24-48) Monocytes (%) (Auto) 11 % (0-9) Eosinophils (%) (Auto) 1 % (0-3) Basophils (%) (Auto) 0 % (0-3) Neutrophils # (Auto) 5.3 x10^3uL (1.8-7.7) Lymphocytes # (Auto) 0.5 x10^3/uL (1.0-4.8) Monocytes # (Auto) 0.7 x10^3/uL (0.0-1.1) Eosinophils # (Auto) 0.1 x10^3/uL (0.0-0.7) Basophils # (Auto) 0.0 x10^3/uL (0.0-0.2) Sodium Level 145 mmol/L (136-145) Potassium Level 4.0 mmol/L (3.5-5.1) Chloride Level 107 mmol/L (98-107) Carbon Dioxide Level 29 mmol/L (21-32) Anion Gap 9 (6-14) Blood Urea Nitrogen 22 mg/dL (7-20) Creatinine 4.9 mg/dL (0.6-1.0) Estimated GFR (Cockcroft-Gault) 10.5 BUN/Creatinine Ratio 4 (6-20) Glucose Level 49 mg/dL (70-99) Calcium Level 7.4 mg/dL (8.5-10.1) Total Bilirubin 0.3 mg/dL (0.2-1.0) Aspartate Amino Transf (AST/SGOT) 15 U/L (15-37) Alanine Aminotransferase (ALT/SGPT) 6 U/L (14-59) Alkaline Phosphatase 72 U/L (46-116) Total Protein 5.6 g/dL (6.4-8.2) Albumin 2.0 g/dL (3.4-5.0) Albumin/Globulin Ratio 0.6 (1.0-1.7) Test 06/27/18 06:14 06/27/18 06:39 06/27/18 07:23 Glucose (Fingerstick) 62 mg/dL (70-99) 90 mg/dL (70-99) 107 mg/dL (70-99) Review of Systems Review of Systems Denies shortness of breath Denies abdominal pain Denies diarrhea Assessment and Plan Assessmemt and Plan Assessment: Abnormal Abdominal Xray - Mild wall thickening at the splenic flexure from a mass or mild diverticulitis, Mild wall thickening at the hepatic flexure and descending colon suggesting colitis, Swelling from mild fluid or hematoma at the right groin 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 Acute precipitous drop hemoglobin, hgb 5.7 on admit Melena 3 days History of EGD 10 years ago with unrecalled results CVA with no residual History CAD, CHF, DVT-on aspirin 325 and Plavix prior to admission Diabetes type 2 COPD, 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 Labs Laboratory Tests Test 06/25/18 16:32 06/25/18 23:19 06/26/18 03:20 06/26/18 07:34 Glucose (Fingerstick) 107 mg/dL (70-99) 161 mg/dL (70-99) 38 mg/dL (70-99) White Blood Count 6.5 x10^3/uL (4.0-11.0) Red Blood Count 2.57 x10^6/uL (3.50-5.40) Hemoglobin 7.8 g/dL (12.0-15.5) Hematocrit 24.0 % (36.0-47.0) Mean Corpuscular Volume 94 fL (79-100) Mean Corpuscular Hemoglobin 31 pg (25-35) Mean Corpuscular Hemoglobin Concent 33 g/dL (31-37) Red Cell Distribution Width 16.7 % (11.5-14.5) Platelet Count 248 x10^3/uL (140-400) Neutrophils (%) (Auto) 82 % (31-73) Lymphocytes (%) (Auto) 7 % (24-48) Monocytes (%) (Auto) 10 % (0-9) Eosinophils (%) (Auto) 1 % (0-3) Basophils (%) (Auto) 1 % (0-3) Neutrophils # (Auto) 5.4 x10^3uL (1.8-7.7) Lymphocytes # (Auto) 0.4 x10^3/uL (1.0-4.8) Monocytes # (Auto) 0.6 x10^3/uL (0.0-1.1) Eosinophils # (Auto) 0.1 x10^3/uL (0.0-0.7) Basophils # (Auto) 0.0 x10^3/uL (0.0-0.2) Sodium Level 142 mmol/L (136-145) Potassium Level 3.8 mmol/L (3.5-5.1) Chloride Level 105 mmol/L (98-107) Carbon Dioxide Level 32 mmol/L (21-32) Anion Gap 5 (6-14) Blood Urea Nitrogen 15 mg/dL (7-20) Creatinine 3.3 mg/dL (0.6-1.0) Estimated GFR (Cockcroft-Gault) 16.5 BUN/Creatinine Ratio 5 (6-20) Glucose Level 115 mg/dL (70-99) Calcium Level 7.7 mg/dL (8.5-10.1) Total Bilirubin 0.3 mg/dL (0.2-1.0) Aspartate Amino Transf (AST/SGOT) 17 U/L (15-37) Alanine Aminotransferase (ALT/SGPT) 13 U/L (14-59) Alkaline Phosphatase 68 U/L (46-116) Total Protein 5.4 g/dL (6.4-8.2) Albumin 1.9 g/dL (3.4-5.0) Albumin/Globulin Ratio 0.5 (1.0-1.7) Test 06/26/18 08:57 06/26/18 16:25 06/26/18 20:47 06/27/18 04:05 Glucose (Fingerstick) 96 mg/dL (70-99) 150 mg/dL (70-99) 217 mg/dL (70-99) White Blood Count 6.5 x10^3/uL (4.0-11.0) Red Blood Count 2.55 x10^6/uL (3.50-5.40) Hemoglobin 7.8 g/dL (12.0-15.5) Hematocrit 24.2 % (36.0-47.0) Mean Corpuscular Volume 95 fL (79-100) Mean Corpuscular Hemoglobin 31 pg (25-35) Mean Corpuscular Hemoglobin Concent 32 g/dL (31-37) Red Cell Distribution Width 16.8 % (11.5-14.5) Platelet Count 265 x10^3/uL (140-400) Neutrophils (%) (Auto) 81 % (31-73) Lymphocytes (%) (Auto) 7 % (24-48) Monocytes (%) (Auto) 11 % (0-9) Eosinophils (%) (Auto) 1 % (0-3) Basophils (%) (Auto) 0 % (0-3) Neutrophils # (Auto) 5.3 x10^3uL (1.8-7.7) Lymphocytes # (Auto) 0.5 x10^3/uL (1.0-4.8) Monocytes # (Auto) 0.7 x10^3/uL (0.0-1.1) Eosinophils # (Auto) 0.1 x10^3/uL (0.0-0.7) Basophils # (Auto) 0.0 x10^3/uL (0.0-0.2) Sodium Level 145 mmol/L (136-145) Potassium Level 4.0 mmol/L (3.5-5.1) Chloride Level 107 mmol/L (98-107) Carbon Dioxide Level 29 mmol/L (21-32) Anion Gap 9 (6-14) Blood Urea Nitrogen 22 mg/dL (7-20) Creatinine 4.9 mg/dL (0.6-1.0) Estimated GFR (Cockcroft-Gault) 10.5 BUN/Creatinine Ratio 4 (6-20) Glucose Level 49 mg/dL (70-99) Calcium Level 7.4 mg/dL (8.5-10.1) Total Bilirubin 0.3 mg/dL (0.2-1.0) Aspartate Amino Transf (AST/SGOT) 15 U/L (15-37) Alanine Aminotransferase (ALT/SGPT) 6 U/L (14-59) Alkaline Phosphatase 72 U/L (46-116) Total Protein 5.6 g/dL (6.4-8.2) Albumin 2.0 g/dL (3.4-5.0) Albumin/Globulin Ratio 0.6 (1.0-1.7) Test 06/27/18 05:57 06/27/18 06:14 06/27/18 06:39 06/27/18 07:23 Glucose (Fingerstick) 47 mg/dL (70-99) 62 mg/dL (70-99) 90 mg/dL (70-99) 107 mg/dL (70-99) Laboratory Tests Test 06/26/18 16:25 06/26/18 20:47 06/27/18 04:05 06/27/18 05:57 Glucose (Fingerstick) 150 mg/dL (70-99) 217 mg/dL (70-99) 47 mg/dL (70-99) White Blood Count 6.5 x10^3/uL (4.0-11.0) Red Blood Count 2.55 x10^6/uL (3.50-5.40) Hemoglobin 7.8 g/dL (12.0-15.5) Hematocrit 24.2 % (36.0-47.0) Mean Corpuscular Volume 95 fL (79-100) Mean Corpuscular Hemoglobin 31 pg (25-35) Mean Corpuscular Hemoglobin Concent 32 g/dL (31-37) Red Cell Distribution Width 16.8 % (11.5-14.5) Platelet Count 265 x10^3/uL (140-400) Neutrophils (%) (Auto) 81 % (31-73) Lymphocytes (%) (Auto) 7 % (24-48) Monocytes (%) (Auto) 11 % (0-9) Eosinophils (%) (Auto) 1 % (0-3) Basophils (%) (Auto) 0 % (0-3) Neutrophils # (Auto) 5.3 x10^3uL (1.8-7.7) Lymphocytes # (Auto) 0.5 x10^3/uL (1.0-4.8) Monocytes # (Auto) 0.7 x10^3/uL (0.0-1.1) Eosinophils # (Auto) 0.1 x10^3/uL (0.0-0.7) Basophils # (Auto) 0.0 x10^3/uL (0.0-0.2) Sodium Level 145 mmol/L (136-145) Potassium Level 4.0 mmol/L (3.5-5.1) Chloride Level 107 mmol/L (98-107) Carbon Dioxide Level 29 mmol/L (21-32) Anion Gap 9 (6-14) Blood Urea Nitrogen 22 mg/dL (7-20) Creatinine 4.9 mg/dL (0.6-1.0) Estimated GFR (Cockcroft-Gault) 10.5 BUN/Creatinine Ratio 4 (6-20) Glucose Level 49 mg/dL (70-99) Calcium Level 7.4 mg/dL (8.5-10.1) Total Bilirubin 0.3 mg/dL (0.2-1.0) Aspartate Amino Transf (AST/SGOT) 15 U/L (15-37) Alanine Aminotransferase (ALT/SGPT) 6 U/L (14-59) Alkaline Phosphatase 72 U/L (46-116) Total Protein 5.6 g/dL (6.4-8.2) Albumin 2.0 g/dL (3.4-5.0) Albumin/Globulin Ratio 0.6 (1.0-1.7) Test 06/27/18 06:14 06/27/18 06:39 06/27/18 07:23 Glucose (Fingerstick) 62 mg/dL (70-99) 90 mg/dL (70-99) 107 mg/dL (70-99) Medications Current Medications Pantoprazole Sodium (PROTONIX VIAL for IV PUSH) 80 mg 1X ONCE IVP Last administered on 06/22/18at 22:08; Start 06/22/18 at 22:00; Stop 06/22/18 at 22:01 ; Status DC Acetaminophen (Tylenol) 500 mg PRN Q6HRS PRN PO MILD PAIN / TEMP; Start at 08:45 Acetaminophen/ Codeine Phosphate (Tylenol #3) 1 tab PRN Q6HRS PRN PO PAIN MODERATE Last administered on 06/27/18at 04:36; Start 06/23/18 at 08:45 Ondansetron HCl (Zofran) 4 mg PRN Q6HRS PRN IV NAUSEA/VOMITING; Start 06/23/18 at 08:45 Ondansetron HCl (Zofran Odt) 4 mg PRN Q6HRS PRN PO NAUSEA/VOMITING FIRST CHOICE ; Start 06/23/18 at 08:45 Insulin Human Lispro (HumaLOG) 0-7 UNITS TIDWMEALS SQ ; Start 06/23/18 at 12:00 Dextrose (Dextrose 50%-Water Syringe) 12.5 gm PRN Q15MIN PRN IV SEE COMMENTS Last administered on 06/27/18at 06:16; Start 06/23/18 at 08:45 Albuterol Sulfate (Ventolin Neb Soln) 2.5 mg PRN Q6HRS PRN INH SHORTNESS OF BREATH; Start 06/23/18 at 08:45; Stop 06/23/18 at 09:15; Status DC Amiodarone HCl (Cordarone) 200 mg DAILY PO Last administered on 06/24/18 09:10 ; Start 06/23/18 at 09:00 Atorvastatin Calcium (Lipitor) 40 mg HS PO Last administered on 06/26/18at 20:48 ; Start 06/23/18 at 21:00 Vitamin B Complex/ Vitamin C (Marnia-Jayme) 1 tab DAILY PO Last administered on 09:08; Start 06/23/18 at 09:00 Furosemide (Lasix) 40 mg DAILY PO Last administered on 06/24/18at 09:10; Start 06/23/18 at 09:00 Acetaminophen/ Hydrocodone Bitart (Lortab 5/325) 1 tab PRN Q6HRS PRN PO BACK PAIN MODERATE TO SEVERE Last administered on 06/26/18 16:56; Start 06/23/18 at 08:45 Insulin Glargine (Lantus) 15 units QHS SQ Last administered on 06/26/18 20:53 ; Start 06/23/18 at 21:00 Lisinopril (Prinivil) 20 mg DAILY PO Last administered on 06/24/18at 09:10; Start 06/23/18 at 09:00 Metoprolol Succinate (Toprol Xl) 100 mg DAILY PO Last administered on at 09:11; Start 06/23/18 at 09:00 Non-Formulary Medication (Budesonide/ Formoterol Fumarate (Symbicort 160-4.5 Mcg Inhaler)) 2 puff BID IH ; Start 06/23/18 at 09:00; Status UNV Diltiazem HCl (Cardizem 24hr Cd) 180 mg DAILY PO ; Start 06/24/18 at 10:00 Hydroxyzine Pamoate (Vistaril) 50 mg QMWF PO Last administered on 06/25/18at 16: 07; Start 06/25/18 at 16:00 Non-Formulary Medication ([Albuterol Sulfate] ) 2.5 mg PRN Q4HRS PRN NEB SHORTNESS OF BREATH; Start 06/23/18 at 08:45; Status UNV Albuterol Sulfate (Ventolin Neb Soln) 2.5 mg RTQID NEB Last administered on at 07:36; Start 06/23/18 at 12:00 Budesonide (Pulmicort) 0.5 mg RTBID NEB Last administered on 06/27/18at 07:36; Start 06/23/18 at 20:00 Albuterol Sulfate (Ventolin Neb Soln) 2.5 mg PRN Q4HRS PRN NEB SHORTNESS OF BREATH; Start 06/23/18 at 09:15 Pantoprazole Sodium (PROTONIX VIAL for IV PUSH) 40 mg BIDAC IVP ; Start at 16:30; Status Cancel Pantoprazole Sodium (PROTONIX VIAL for IV PUSH) 40 mg DAILYAC IVP Last administered on 06/26/18at 06:46; Start 06/23/18 at 14:00; Stop 06/27/18 at 11:30 ; Status DC Metronidazole 100 ml @ 100 mls/hr Q12HR IV Last administered on 06/26/18at 20: 49; Start 06/23/18 at 21:00 Ciprofloxacin/ Dextrose 200 ml @ 200 mls/hr Q24H IV Last administered on 20:48; Start 06/23/18 at 20:00 Lactobacillus Rhamnosus (Culturelle) 1 cap BID PO Last administered on at 20:48; Start 06/25/18 at 21:00 Lidocaine HCl (Xylocaine-Mpf 1% 2ml Vial) 2 ml STK-MED ONCE .ROUTE ; Start 06/25 at 17:16; Stop 06/25/18 at 17:17; Status DC Sodium Chloride 1,000 ml @ 1,000 mls/hr Q1H PRN IV hypotension; Start 06/25/18 at 18:28; Stop 06/26/18 at 00:27; Status DC Diphenhydramine HCl (Benadryl) 25 mg 1X PRN PRN IV ITCHING; Start 06/25/18 at 18:30; Stop 06/26/18 at 18:29; Status DC Diphenhydramine HCl (Benadryl) 25 mg 1X PRN PRN IV ITCHING; Start 06/25/18 at 18:30; Stop 06/26/18 at 18:29; Status DC Sodium Chloride 1,000 ml @ 400 mls/hr Q2H30M PRN IV PATENCY; Start 06/25/18 at 18:28; Stop 06/26/18 at 06:27; Status DC Info (PHARMACY MONITORING -- do not chart) 1 each PRN DAILY PRN MC SEE COMMENTS ; Start 06/25/18 at 18:30 Lidocaine HCl (Xylocaine-Mpf 1% 2ml Vial) 2 ml STK-MED ONCE .ROUTE ; Start 06/25 at 17:30; Stop 06/26/18 at 09:08; Status DC Sodium Chloride 1,000 ml @ 75 mls/hr [id number] IV Last administered on at 10:56; Start 06/26/18 at 11:00; Stop 06/26/18 at 12:06; Status DC Propofol 20 ml @ As Directed STK-MED ONCE IV ; Start 06/26/18 at 11:41; Stop at 11:42; Status DC Sodium Chloride 1,000 ml @ 1,000 mls/hr Q1H PRN IV hypotension; Start 06/27/18 at 08:03; Stop 06/27/18 at 14:02 Diphenhydramine HCl (Benadryl) 25 mg 1X PRN PRN IV ITCHING; Start 06/27/18 at 08:15; Stop 06/28/18 at 08:14 Diphenhydramine HCl (Benadryl) 25 mg 1X PRN PRN IV ITCHING; Start 06/27/18 at 08:15; Stop 06/28/18 at 08:14 Sodium Chloride 1,000 ml @ 400 mls/hr Q2H30M PRN IV PATENCY; Start 06/27/18 at 08:03; Stop 06/27/18 at 20:02 Info (PHARMACY MONITORING -- do not chart) 1 each PRN DAILY PRN MC SEE COMMENTS ; Start 06/27/18 at 08:15 Lidocaine HCl (Xylocaine-Mpf 1% 2ml Vial) 2 ml STK-MED ONCE .ROUTE ; Start 06/27 at 08:46; Stop 06/27/18 at 08:47; Status DC Pantoprazole Sodium (Protonix) 40 mg DAILYAC PO ; Start 06/28/18 at 07:30 Active Scripts Active Amiodarone Hcl 200 Mg Tablet 200 Mg PO DAILY MDD 1 Eliquis (Apixaban) 5 Mg Tablet 5 Mg PO BID MDD ` [Albuterol Sulfate] 2.5 MG/3 ML Nebu 2.5 Mg NEB PRN Q4HRS PRN Reported Diltiazem 24HR Cd (Diltiazem Hcl) 180 Mg Cap.er.24h 180 Mg PO DAILY Lipitor (Atorvastatin Calcium) 40 Mg Tablet 40 Mg PO HS Hydrocodone-Acetamin 5-325 mg (Hydrocodone/Acetaminophen) 1 Each Tablet 1 Each PO PRN Q6HRS PRN Furosemide 40 Mg Tablet 40 Mg PO DAILY Symbicort 160-4.5 Mcg Inhaler (Budesonide/Formoterol Fumarate) 10.2 Gm Hfa.aer.ad 2 Puff IH BID Toprol Xl (Metoprolol Succinate) 100 Mg Tab.er.24h 100 Mg PO DAILY Proair Hfa Inhaler (Albuterol Sulfate) 8.5 Gm Hfa.aer.ad 1 Puff INH PRN Q6HRS PRN Marina-Jayme Tablet (Folic Acid/Vitamin B Comp W-C) 0.8 Mg Tablet 0.8 Mg PO DAILY Hydroxyzine Hcl 25 Mg Tablet 50 Mg PO QMWF Lisinopril 20 Mg Tablet 1 Tab PO DAILY Lantus Solostar (Insulin Glargine,Hum.rec.anlog) 100 Unit/1 Ml Insuln.pen 15 Unit SQ QHS Aspirin 325 Mg Tablet 1 Tab PO DAILY Vitals/I & O Vital Sign - Last 24 Hours 3/19/19 3/19/19 3/19/19 3/19/19 12:00 12:12 12:28 15:00 Temp 97.5 97.9 97.5 97.9 Pulse 62 61 58 65 Resp 16 20 20 18 B/P (MAP) 90/45 108/55 119/58 115/49 (71) Pulse Ox 97 100 95 90 O2 Delivery Nasal Cannula Nasal Cannula Nasal Cannula Nasal Cannula O2 Flow Rate 3 3 3 3.0 06/26/18 06/26/18 06/26/18 06/26/18 15:05 16:56 18:35 19:20 Temp 98.3 98.3 Pulse 71 Resp 16 16 18 B/P (MAP) 123/42 (69) Pulse Ox 98 O2 Delivery Nasal Cannula Nasal Cannula Nasal Cannula Room Air O2 Flow Rate 2.0 2.0 3.0 06/26/18 06/26/18 06/26/18 06/27/18 19:44 20:00 23:25 02:41 Temp 98.7 98.4 98.7 98.4 Pulse 70 74 Resp 18 18 B/P (MAP) 142/42 (75) 130/50 (76) Pulse Ox 98 98 98 O2 Delivery Nasal Cannula Nasal Cannula Nasal Cannula Nasal Cannula O2 Flow Rate 2.0 2.0 2.0 2.0 06/27/18 06/27/18 06/27/18 06/27/18 04:36 05:22 07:00 07:37 Temp 97.6 97.6 Pulse 65 Resp 15 18 B/P (MAP) 117/75 (89) Pulse Ox 97 98 O2 Delivery Nasal Cannula Nasal Cannula Nasal Cannula O2 Flow Rate 3.0 2.0 3.0 2.0 06/27/18 07:45 O2 Delivery Nasal Cannula Intake and Output 06/26/18 06/26/18 06/27/18 15:00 23:00 07:00 Intake Total 580 ml 400 ml 780 ml Balance 580 ml 400 ml 780 ml CASTLE,NIAL K III DO Jun 27, 2018 11:51
--- NOTE | 2018-06-27 12:00 | PDOC ---
SUBJECTIVE ROS Seen on HD, stable S/P EGD 06/26 OBJECTIVE Vital Signs Vital Signs Date Time Temp Pulse Resp B/P (MAP) Pulse Ox O2 Delivery O2 Flow Rate FiO2 06/27/18 07:45 Nasal Cannula 06/27/18 07:37 98 2.0 06/27/18 07:00 97.6 65 18 117/75 (89) 97.6 I & 0 Intake and Output 06/27/18 06:59 Intake Total 1760 ml Balance 1760 ml Intake Oral 1060 ml IV Total 700 ml PHYSICAL EXAM Physical Exam General: No acute distress HEENT: Atraumatic, PERRLA, EOMI, Other (pale palpebral conjunctivae) Lungs: Clear to auscultation, Normal air movement Heart: S1S2, RRR, no thrills, no rubs, no gallops, no murmurs Cardiovascular: S1, S2 Breasts: Normal, Rt breast nml w/o mass, Lt breast nml w/o mass, Nipples normal Abdomen: Normal bowel sounds, Soft, No tenderness, No hepatosplenomegaly, No masses Extremities: No clubbing, No cyanosis, No edema, Normal pulses, No tenderness/ swelling Skin: No rashes, No breakdown, No significant lesion Neuro: Normal gait, Normal speech, Strength at 5/5 X4 ext, Normal tone, Sensation intact, Cranial nerves 3-12 NL, Reflexes 2+ DIAGNOSIS/ASSESSMENT Assessment & Plan ESRD - On HD MWF Seen on HD, tolerating well , continue a sordered Dw slat twister Acute Anemia- +fecal occult - improved w/ transfusions, s/p EGD 06/26--Grade A esophagitis Bx results and OP Colonoscopy Chronic anemia, iron-deficient in 2016, on Plavix and ASA at home Abnormal CT - wall thickening in gastric antrum and mild wall thickening at splenic flexure, hepatic flexure, and descending colon COMMENT/RELEVANT DATA Meds Current Medications Medications (Trade) Dose Ordered Sig/Eric Start Time Stop Time Status Last Admin Dose Admin Acetaminophen (Tylenol) 500 mg PRN Q6HRS PRN 06/23/18 08:45 Acetaminophen/ Codeine Phosphate (Tylenol #3) 1 tab PRN Q6HRS PRN 06/23/18 08:45 06/27/18 04:36 1 TAB Acetaminophen/ Hydrocodone Bitart (Lortab 5/325) 1 tab PRN Q6HRS PRN 06/23/18 08:45 06/26/18 16:56 1 TAB Albuterol Sulfate (Ventolin Neb Soln) 2.5 mg PRN Q4HRS PRN 06/23/18 09:15 Amiodarone HCl (Cordarone) 200 mg DAILY 06/23/18 09:00 06/24/18 09:10 200 MG Atorvastatin Calcium (Lipitor) 40 mg HS 06/23/18 21:00 06/26/18 20:48 40 MG Budesonide (Pulmicort) 0.5 mg RTBID 06/23/18 20:00 06/27/18 07:36 0.5 MG Ciprofloxacin/ Dextrose 200 ml @ 200 mls/hr Q24H 06/23/18 20:00 06/26/18 20:48 200 MLS/HR Dextrose (Dextrose 50%-Water Syringe) 12.5 gm PRN Q15MIN PRN 06/23/18 08:45 06/27/18 06:16 12.5 GM Diltiazem HCl (Cardizem 24hr Cd) 180 mg DAILY 06/24/18 10:00 Diphenhydramine HCl (Benadryl) 25 mg 1X PRN PRN 06/27/18 08:15 06/28/18 08:14 Furosemide (Lasix) 40 mg DAILY 06/23/18 09:00 06/24/18 09:10 40 MG Hydroxyzine Pamoate (Vistaril) 50 mg QMWF 06/25/18 16:00 06/25/18 16:07 50 MG Info (PHARMACY MONITORING -- do not chart) 1 each PRN DAILY PRN 06/27/18 08:15 Insulin Glargine (Lantus) 15 units QHS 06/23/18 21:00 06/26/18 20:53 15 UNITS Insulin Human Lispro (HumaLOG) 0-7 UNITS TIDWMEALS 06/23/18 12:00 Lactobacillus Rhamnosus (Culturelle) 1 cap BID 06/25/18 21:00 06/26/18 20:48 1 CAP Lidocaine HCl (Xylocaine-Mpf 1% 2ml Vial) 2 ml STK-MED ONCE 06/27/18 08:46 06/27/18 08:47 DC Lisinopril (Prinivil) 20 mg DAILY 06/23/18 09:00 06/24/18 09:10 20 MG Metoprolol Succinate (Toprol Xl) 100 mg DAILY 06/23/18 09:00 06/24/18 09:11 100 MG Metronidazole 100 ml @ 100 mls/hr Q12HR 06/23/18 21:00 06/26/18 20:49 100 MLS/HR Non-Formulary Medication (Budesonide/ Formoterol Fumarate (Symbicort 160-4.5 Mcg Inhaler)) 2 puff BID 06/23/18 09:00 UNV Non-Formulary Medication ([Albuterol Sulfate] ) 2.5 mg PRN Q4HRS PRN 06/23/18 08:45 UNV Ondansetron HCl (Zofran Odt) 4 mg PRN Q6HRS PRN 06/23/18 08:45 Ondansetron HCl (Zofran) 4 mg PRN Q6HRS PRN 06/23/18 08:45 Pantoprazole Sodium (PROTONIX VIAL for IV PUSH) 40 mg DAILYAC 06/23/18 14:00 06/27/18 11:30 DC 06/26/18 06:46 40 MG Pantoprazole Sodium (Protonix) 40 mg DAILYAC 06/28/18 07:30 Propofol 20 ml @ As Directed STK-MED ONCE 06/26/18 11:41 06/26/18 11:42 DC Sodium Chloride 1,000 ml @ 400 mls/hr Q2H30M PRN 06/27/18 08:03 06/27/18 20:02 Vitamin B Complex/ Vitamin C (Marina-Jayme) 1 tab DAILY 06/23/18 09:00 06/24/18 09:08 1 TAB Lab Laboratory Tests Test 06/26/18 16:25 06/26/18 20:47 06/27/18 04:05 06/27/18 05:57 Glucose (Fingerstick) 150 mg/dL (70-99) 217 mg/dL (70-99) 47 mg/dL (70-99) White Blood Count 6.5 x10^3/uL (4.0-11.0) Red Blood Count 2.55 x10^6/uL (3.50-5.40) Hemoglobin 7.8 g/dL (12.0-15.5) Hematocrit 24.2 % (36.0-47.0) Mean Corpuscular Volume 95 fL (79-100) Mean Corpuscular Hemoglobin 31 pg (25-35) Mean Corpuscular Hemoglobin Concent 32 g/dL (31-37) Red Cell Distribution Width 16.8 % (11.5-14.5) Platelet Count 265 x10^3/uL (140-400) Neutrophils (%) (Auto) 81 % (31-73) Lymphocytes (%) (Auto) 7 % (24-48) Monocytes (%) (Auto) 11 % (0-9) Eosinophils (%) (Auto) 1 % (0-3) Basophils (%) (Auto) 0 % (0-3) Neutrophils # (Auto) 5.3 x10^3uL (1.8-7.7) Lymphocytes # (Auto) 0.5 x10^3/uL (1.0-4.8) Monocytes # (Auto) 0.7 x10^3/uL (0.0-1.1) Eosinophils # (Auto) 0.1 x10^3/uL (0.0-0.7) Basophils # (Auto) 0.0 x10^3/uL (0.0-0.2) Sodium Level 145 mmol/L (136-145) Potassium Level 4.0 mmol/L (3.5-5.1) Chloride Level 107 mmol/L (98-107) Carbon Dioxide Level 29 mmol/L (21-32) Anion Gap 9 (6-14) Blood Urea Nitrogen 22 mg/dL (7-20) Creatinine 4.9 mg/dL (0.6-1.0) Estimated GFR (Cockcroft-Gault) 10.5 BUN/Creatinine Ratio 4 (6-20) Glucose Level 49 mg/dL (70-99) Calcium Level 7.4 mg/dL (8.5-10.1) Total Bilirubin 0.3 mg/dL (0.2-1.0) Aspartate Amino Transf (AST/SGOT) 15 U/L (15-37) Alanine Aminotransferase (ALT/SGPT) 6 U/L (14-59) Alkaline Phosphatase 72 U/L (46-116) Total Protein 5.6 g/dL (6.4-8.2) Albumin 2.0 g/dL (3.4-5.0) Albumin/Globulin Ratio 0.6 (1.0-1.7) Test 06/27/18 06:14 06/27/18 06:39 06/27/18 07:23 Glucose (Fingerstick) 62 mg/dL (70-99) 90 mg/dL (70-99) 107 mg/dL (70-99) Results All relevant outside records, renal labs, imaging studies, telemetry/EKG's were reviewed. DESIREE MELARA MD Jun 27, 2018 12:00
[2018-06-27 13:00] VITALS: BP 116/40
--- NOTE | 2018-06-27 13:54 | DS ---
DATE OF DISCHARGE: 06/27/2018 ADMISSION DIAGNOSES: 1. Gastrointestinal bleed. 2. History of end-stage renal disease, on dialysis. DISCHARGE DIAGNOSIS: Resolving gastrointestinal bleed. CONSULTS: GI and Nephrology. PROCEDURES: Hemodialysis and EGD, which showed mild reflux, a tiny hiatal hernia and a prepyloric erythema, which was nonspecific. HOSPITAL COURSE: The patient is a pleasant elderly female well known to our service. Basically, she has end-stage renal disease. She is on dialysis. At this time, she presented with some GI bleeding. She was admitted. We consulted GI. She did go for an EGD with the above results. Today, I saw her and examined her in dialysis. She looks great. Her heart tones were normal. Her lungs were clear. Her hemoglobin is stable at 7.8. We plan to discharge with close outpatient followup. She is going to get a colonoscopy in a couple of weeks. DISPOSITION: Home. ACTIVITY: As tolerated. DIET: Renal. MEDICATIONS: Please see the MRAD. TOTAL TIME: 32 minutes. YULIA DE ANDA DO DR: MAGO/courtney JOB#: [id number] / [id number]
--- NOTE | 2018-06-27 14:13 | PATHOLOGY ---
[facility] Accession Number: [id number] . 01 Material submitted: . PART A: DUODENUM BIOPSY PART B: ANTRUM BIOPSY . 01 Clinical history: . Anemia . 02 Diagnosis: A. Duodenal biopsy: - No diagnostic abnormalities. . B. Gastric biopsy, antrum: - Focal congestion and mild chronic inflammation. (JPM:boone; 06/27/2018) QMS/06/27/2018 . 02 Comment: Sections of the duodenal biopsy reveal segments of small intestine mucosa. Where best oriented, the mucosal villi show no sprue-like changes or significant inflammatory changes. . Sections of the gastric biopsy reveal gastric antral and antral/body transition mucosa showing focal congestion and focal mild chronic inflammation. A properly controlled immunoperoxidase stain for Helicobacter is negative for Helicobacter organisms. There is no evidence of malignancy. (JPM:boone; 06/27/2018) . . Special stain performed: Immunoperoxidase stain for Helicobacter on B1. . 02 Electronically signed: . Wojciech Gonsales MD, Pathologist NPI- [id number] . 01 Gross description: . A. Received in formalin labeled "Banks, Kim, duodenum BX," are 3 segments of meeks soft tissue measuring 0.6 x 0.6 x 0.2 cm in aggregate dimensions and ranging from 0.2 to 0.3 cm in maximum dimension. The specimen is submitted entirely in cassette A1. . B. Received in formalin labeled "Banks, Kim, antrum BX," are 4 segments of meeks soft tissue measuring 0.9 x 0.5 x 0.2 cm in aggregate dimensions and ranging from 0.2 to 0.4 cm in maximum dimension. The specimen is submitted entirely in cassette B1. (TSD; 06/26/2018) TOB/TOB . 02 Pathologist provided ICD-10: K29.50, D64.9 . 02 CPT . 506180, 520497, R18266 Specimen Comment: A courtesy copy of this report has been sent to Specimen Comment: [phone], , , . Specimen Comment: Report sent to ,DR TORRES,DR ROBLES Specimen Comment: DR FERNANDEZ Specimen Comment: A duplicate report has been generated due to demographic updates. Performed at: 01 [facility] [address], [place] [id number] MD Isma Paiz MD Phone: [phone] Performed at: 02 [facility] [address] [place], [place] [id number] MD Wojciech Gonsales MD Phone: [phone]
[2018-06-27] MEDS ORDERED: PANT20TA2 PO (14:53)
--- NOTE | 2018-06-27 15:19 | SNU/HH DC ---
DISCHARGE WITH HOME HEALTH DISCHARGE INFORMATION: Condition on Discharge: Stable CODE STATUS: Code Status: Full HOME HEALTH: Face to Face: I certify this patient is under my care and that I, or a nurse practitioner or physician's assistant art director working with me, had a face to face encounter that meets the physician face to face encounter requirements with this patient on []. Medical Complications: Other (ESRD) Physical Therapy For: Evalulation/Treatment Occupational Therapy For: Evaluation/Treatment Home Health Aide For: Self-care ASSISTANT PROFESSOR OF BUSINESS For: Community Resources POST DISCHARGE ORDERS: Activity Instructions for Disc: Activity as tolerated Weight Bearing Status after Di: No restrictions Bathing Instructions: Shower-keep dressing dry DIET AFTER DISCHARGE: Renal Wound/Incision Care: Do not change dressing, Reinforce dressing PRN CHECKS AFTER DISCHARGE: Checks after discharge: Check blood press - daily, Check blood sugar, ac/hs FOLLOW-UP: Follow up with: Primary care Physician x1 week Follow Up With: GI doctor [phone] for outpt colonoscopy/biopsy results TREATMENT/EQUIPMENT ORDERS: Adaptive Equipment Issued: None Discharge Respiratory Equipmen: Oxygen CERTIFICATION STATEMENT: Certification Statement: Certification Statement: Based on the above finding, I certify that this patient is confined to the home and needs intermittent detention care, physical therapy and/or speech therapy, or continues to need occupational therapy.~ This patient is under my care, and I have initiated the establishment of the plan of care.~ This patient will be followed by myself or a community physician who will periodically review the plan of care. Home Meds Active Scripts Amiodarone Hcl (AMIODARONE HCL) 200 Mg Tablet, 200 MG PO DAILY for afib MDD 1, #30 TAB Prov:CARMELA TAYLOR MD 03/24/18 Apixaban (ELIQUIS) 5 Mg Tablet, 5 MG PO BID for afib MDD `, #60 TAB Prov:CARMELA TAYLOR MD 03/24/18 [Albuterol Sulfate] 2.5 MG/3 ML NEBU No Conflict Check, 2.5 MG NEB PRN Q4HRS PRN for SHORTNESS OF BREATH Prov:AC LEAL MD 12/26/14 Reported Medications Pantoprazole Sodium (PROTONIX) 20 Mg Tablet.dr, 1 TAB PO DAILY for gerd, #30 TAB 06/27/18 Diltiazem Hcl (DILTIAZEM 24HR CD) 180 Mg Cap.er.24h, 180 MG PO DAILY for afib , CAP.SR 06/08/18 Atorvastatin Calcium (LIPITOR) 40 Mg Tablet, 40 MG PO HS for FOR CHOLESTEROL, # 30 TAB 0 Refills 06/08/18 Hydrocodone/Acetaminophen (Hydrocodone-Acetamin 5-325 mg) 1 Each Tablet, 1 EACH PO PRN Q6HRS PRN for back pain , TAB 06/08/18 Furosemide (FUROSEMIDE) 40 Mg Tablet, 40 MG PO DAILY for chf, TAB 06/08/18 Budesonide/Formoterol Fumarate (SYMBICORT 160-4.5 MCG INHALER) 10.2 Gm Hfa.aer.ad, 2 PUFF IH BID for copd, #10.6 GM 3 Refills 06/08/18 Metoprolol Succinate (TOPROL XL) 100 Mg Tab.er.24h, 100 MG PO DAILY for FOR HYPERTENSION, #30 TAB 0 Refills 06/08/18 Albuterol Sulfate (PROAIR HFA INHALER) 8.5 Gm Hfa.aer.ad, 1 PUFF INH PRN Q6HRS PRN for SHORTNESS OF BREATH, INHALER 0 Refills 06/08/18 Folic Acid/Vitamin B Comp W-C (RAYNA-STEVE TABLET) 0.8 Mg Tablet, 0.8 MG PO DAILY for dialysis 03/21/18 Hydroxyzine Hcl (HYDROXYZINE HCL) 25 Mg Tablet, 50 MG PO QMWF for anxiety during dialysis, #30 TAB 03/21/18 Lisinopril (LISINOPRIL) 20 Mg Tablet, 1 TAB PO DAILY, #30 TAB 5 Refills 11/06/17 Insulin Glargine,Hum.rec.anlog (LANTUS SOLOSTAR) 100 Unit/1 Ml Insuln.pen, 15 UNIT SQ QHS for diabetes, #15 ML 5 Refills 09/03/15 Aspirin (ASPIRIN) 325 Mg Tablet, 1 TAB PO DAILY, #30 TAB 5 Refills 01/25/14 YULIA DE ANDA III DO Jun 27, 2018 15:18
[2018-06-28] MEDS ORDERED: PANTOPRAZOLE 40 MG TABLET.DR. PO SCH (07:30)
== END 2018-06-27 15:15 | disposition home health service (06) | DRG 377 ==
LOC: ER 21:18 → 4 NORTH 22:43
PROVIDERS: ADMIT Family Medicine; ATTEND Family Medicine
PROC: 30233N1 Transfusion of Nonautologous Red Blood Cells into Peripheral Vein, Percutaneous Approach (ICD-10-PCS; 2018-06-23)
PROC: 5A1D70Z Performance of Urinary Filtration, Intermittent, Less than 6 Hours Per Day (ICD-10-PCS; 2018-06-25)
PROC: 0DB78ZX Excision of Stomach, Pylorus, Via Natural or Artificial Opening Endoscopic, Diagnostic (ICD-10-PCS; 2018-06-26)
PROC: 0DB98ZX Excision of Duodenum, Via Natural or Artificial Opening Endoscopic, Diagnostic (ICD-10-PCS; principal; 2018-06-26 13:00)
PROC: 5A1D70Z Performance of Urinary Filtration, Intermittent, Less than 6 Hours Per Day (ICD-10-PCS; 2018-06-27)
DX: K29.71 Gastritis, unspecified, with bleeding (principal); J96.20 Acute and chronic respiratory failure, unspecified whether with hypoxia or hypercapnia; N18.6 End stage renal disease; I13.2 Hypertensive heart and chronic kidney disease with heart failure and with stage 5 chronic kidney disease, or end stage renal disease; E44.0 Moderate protein-calorie malnutrition; I50.9 Heart failure, unspecified; D63.8 Anemia in other chronic diseases classified elsewhere; J44.9 Chronic obstructive pulmonary disease, unspecified; K57.31 Diverticulosis of large intestine without perforation or abscess with bleeding; I25.10 Atherosclerotic heart disease of native coronary artery without angina pectoris; E11.22 Type 2 diabetes mellitus with diabetic chronic kidney disease; E78.00 Pure hypercholesterolemia, unspecified; I48.91 Unspecified atrial fibrillation; E78.5 Hyperlipidemia, unspecified; K21.0 Gastro-esophageal reflux disease with esophagitis; E21.3 Hyperparathyroidism, unspecified; K44.9 Diaphragmatic hernia without obstruction or gangrene; F41.9 Anxiety disorder, unspecified; F32.9 Major depressive disorder, single episode, unspecified; Z99.2 Dependence on renal dialysis; Z86.73 Personal history of transient ischemic attack (TIA), and cerebral infarction without residual deficits; Z86.718 Personal history of other venous thrombosis and embolism; Z98.49 Cataract extraction status, unspecified eye; Z99.81 Dependence on supplemental oxygen; Z79.01 Long term (current) use of anticoagulants; Z79.4 Long term (current) use of insulin; Z79.51 Long term (current) use of inhaled steroids; Z79.82 Long term (current) use of aspirin; Z79.899 Other long term (current) drug therapy; Z82.49 Family history of ischemic heart disease and other diseases of the circulatory system; Z95.5 Presence of coronary angioplasty implant and graft; Z83.3 Family history of diabetes mellitus; Z68.30 Body mass index [BMI] 30.0-30.9, adult
CPT/HCPCS: 36415; 43239; 71045; 74018; 74176; 80048; 80053; 82274; 82962; 85014; 85018; 85025; 85610; 85651; 86850; 86900; 86901; 86920; 88305; 88342; 93005; 94640; 94760; 96374; C9113; J0744; J1815; J2704; J3490; J7030; J7042; J7613; J7626; P9016; Q0177; 97110; 97116; 97535; 99285-25

== ENCOUNTER → 2018-07-17 | Outpatient (CLI) | payer MEDICARE ==
[2018-06-27 13:00] VITALS: BP 116/40
[~2018-07-17] MED LIST changes: +IOHEXOL 350 MG/ML 100 ML VIAL. IV ONE; +LIDOCAINE WITH 8.4% SOD BICARB 3 ML DISP.SYRIN. INJ ONE; +LIDOCAINE WITH 8.4% SOD BICARB 3 ML DISP.SYRIN. ONE; +PANT20TA2 PO
--- NOTE | 2018-07-17 10:28 | RAD ---
CT angiography of the abdomen and pelvis 07/17/2018 INDICATION: Endovascular repair of abdominal aortic aneurysm, follow-up TECHNIQUE: Multidetector CT imaging of the abdomen and pelvis was performed before and after the administration of IV contrast. Delayed imaging was performed. 3-D volume rendered and maximum intensity projection reconstructions of abdominal pelvic vasculature were created on an independent workstation and reviewed. Vascular findings: Visualized thoracic aorta is unremarkable. Proximal abdominal aorta is unremarkable. Mild stenosis of the celiac artery is seen. Superior mesenteric artery is patent. A replaced hepatic artery giving rise to the GDA is noted off the SMA. 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 Probable significant stenosis is noted at the right renal artery. Notably the patient has pre-existing end-stage renal disease is dialysis dependent. There is interval repair of the infrarenal abdominal aortic aneurysm clipping placement of a bifurcated stent graft extending into the common iliac arteries bilaterally. No evidence of endoleak is identified. Maximal transverse diameter of the eccentric, left-sided aortic aneurysm sac is 5.6 cm which compares to 6.0 cm on comparison study. The approximate AP diameter is 2.8 cm on today's exam measuring approximately the same on prior exam. Mild change in configuration of the aneurysm sac noted. 2 large penetrating ulcers are now thrombosed. Stent graft is widely patent without evidence of migration or kinking. No new or high-grade aortoiliac stenosis is identified. The internal iliac arteries remain patent. Nonvascular findings: Mild atelectasis in the lung bases noted. Solid viscera of the abdomen demonstrate no acute abnormality. Renal atrophy noted. Fullness in the left adrenal gland similar to comparison study. No bowel obstruction is identified. No free fluid or free air is seen in the abdomen or pelvis. No evidence of acute osseous abnormality is identified. IMPRESSION: Status post endovascular repair of abdominal aortic aneurysm. Aneurysm sac size is grossly stable. No evidence of endoleak is identified. CT DOSING PQRS STATEMENT: One or more of the following individualized dose reduction techniques were utilized for this examination: 1. Automated exposure control 2. Adjustment of the mA and/or kV according to patient size 3. Use of iterative reconstruction technique Electronically signed by: Terry Santiago MD (07/17/2018 10:25 AM) [facility]
== END | disposition home or self-care (01) ==
LOC: CT 07:50
PROVIDERS: ATTEND Surgery Vascular Surgery
DX: I71.4 Abdominal aortic aneurysm, without rupture (principal); I77.4 Celiac artery compression syndrome; N28.0 Ischemia and infarction of kidney; J98.11 Atelectasis; N26.1 Atrophy of kidney (terminal); I13.2 Hypertensive heart and chronic kidney disease with heart failure and with stage 5 chronic kidney disease, or end stage renal disease; E11.22 Type 2 diabetes mellitus with diabetic chronic kidney disease; I50.20 Unspecified systolic (congestive) heart failure; N18.6 End stage renal disease; Z95.828 Presence of other vascular implants and grafts; Z87.891 Personal history of nicotine dependence
CPT/HCPCS: 74174; Q9967

== ENCOUNTER 2018-10-24 19:24 | Emergency (ER) | payer MEDICARE ==
[~2018-10-24] VITALS: Ht 154.9 cm; Wt 63.5 kg
[~2018-10-24 19:24] MED LIST changes: -IOHEXOL 350 MG/ML 100 ML VIAL. IV ONE; -LIDOCAINE WITH 8.4% SOD BICARB 3 ML DISP.SYRIN. INJ ONE; -LIDOCAINE WITH 8.4% SOD BICARB 3 ML DISP.SYRIN. ONE
--- NOTE | 2018-10-24 19:46 | PHYS DOC ---
Past Medical History Past Medical History: CAD, CHF, COPD, Diabetes-Type II, DVT, High Cholesterol, Hypertension, PA, Renal Disease, Renal Failure, Other Additional Past Medical Histor: dialysis MWF, O2 3LNC @ home, CPAP (JOSUE SMITH APRN) Past Surgical History: Angioplasty, Other Additional Past Surgical Histo: cardiac cath with stent placement, rotator cuff surgery,AV graft, cataract, (JOSUE SMITH APRN) Alcohol Use: None Drug Use: None (JOSUE SMITH APRN) Adult General Chief Complaint Chief Complaint: NAUSEA/VOMITING/DIARRHA HPI HPI Patient is a 72 year old female presents to the ER after she started having nausea and vomiting after eating a salad. The patient states that this happened after her dialysis today. Has also been having hemoptysis. Rates her pain as 8 out of 10 in severity and describes it as sharp and burning. (JOSUE SMITH APRN) Review of Systems Review of Systems Constitutional: Denies fever or chills [] Eyes: Denies change in visual acuity, redness, or eye pain [] HENT: Denies nasal congestion or sore throat [] Respiratory: Denies cough or shortness of breath [] Cardiovascular: No additional information not addressed in HPI [] GI: Denies abdominal pain, Reports nausea, vomiting : Denies dysuria or hematuria [] Musculoskeletal: Denies back pain or joint pain [] Integument: Denies rash or skin lesions [] Neurologic: Denies headache, focal weakness or sensory changes [] Endocrine: Denies polyuria or polydipsia [] Complete systems were reviewed and found to be within normal limits, except as documented in this note. (JOSUE SMITH APRN) Current Medications Current Medications Current Medications Medications (Trade) Dose Ordered Sig/Eric Start Time Stop Time Status Last Admin Dose Admin Ondansetron HCl (Zofran) 4 mg 1X ONCE 10/24/18 20:00 10/24/18 20:01 DC 10/24/18 20:01 4 MG (DAVID JAIMES DO) Allergies Allergies Allergies Coded Allergies Type Severity Reaction Last Updated Verified Iodinated Contrast- Oral and IV Dye Allergy Intermediate 11/06/17 Yes (DAVID JAIMES DO) Physical Exam Physical Exam Constitutional: Well developed, well nourished, no acute distress, non-toxic appearance. [] HENT: Normocephalic, atraumatic, bilateral external ears normal, oropharynx moist, no oral exudates, nose normal. [] Eyes: PERRLA, EOMI, conjunctiva normal, no discharge. [] Neck: Normal range of motion, no tenderness, supple, no stridor. [] Cardiovascular:Heart rate regular rhythm, no murmur [] Lungs & Thorax: Bilateral breath sounds clear to auscultation [] Abdomen: Bowel sounds normal, soft, no tenderness, no masses, no pulsatile masses. [] Skin: Warm, dry, no erythema, no rash. [] Back: No tenderness, no CVA tenderness. [] Extremities: No tenderness, no cyanosis, no clubbing, ROM intact, no edema. [] Neurologic: Alert and oriented X 3, normal motor function, normal sensory function, no focal deficits noted. [] Psychologic: Affect normal, judgement normal, mood normal. [] (JOSUE SMITH APRN) Current Patient Data Vital Signs Vital Signs Date Time Temp Pulse Resp B/P (MAP) Pulse Ox O2 Delivery O2 Flow Rate FiO2 10/25/18 01:25 85 188/77 (114) 99 Nasal Cannula 3.0 10/24/18 19:24 98.3 18 98.3 ([facility]) Lab Values Laboratory Tests Test 10/24/18 19:53 10/24/18 20:30 White Blood Count 10.0 x10^3/uL (4.0-11.0) Red Blood Count 3.78 x10^6/uL (3.50-5.40) Hemoglobin 12.4 g/dL (12.0-15.5) Hematocrit 38.1 % (36.0-47.0) Mean Corpuscular Volume 101 fL (79-100) H Mean Corpuscular Hemoglobin 33 pg (25-35) Mean Corpuscular Hemoglobin Concent 33 g/dL (31-37) Red Cell Distribution Width 15.0 % (11.5-14.5) H Platelet Count 279 x10^3/uL (140-400) Neutrophils (%) (Auto) 91 % (31-73) H Lymphocytes (%) (Auto) 3 % (24-48) L Monocytes (%) (Auto) 5 % (0-9) Eosinophils (%) (Auto) 0 % (0-3) Basophils (%) (Auto) 1 % (0-3) Neutrophils # (Auto) 9.2 x10^3/uL (1.8-7.7) H Lymphocytes # (Auto) 0.2 x10^3/uL (1.0-4.8) L Monocytes # (Auto) 0.5 x10^3/uL (0.0-1.1) Eosinophils # (Auto) 0.0 x10^3/uL (0.0-0.7) Basophils # (Auto) 0.1 x10^3/uL (0.0-0.2) Segmented Neutrophils % 89 % (35-66) H Band Neutrophils % 1 % (0-9) Lymphocytes % 2 % (24-48) L Monocytes % 8 % (0-10) Platelet Estimate Adequate (ADEQUATE) D-Dimer (Rhonda) 2.74 ug/mlFEU (0.00-0.50) H Sodium Level 143 mmol/L (136-145) Potassium Level 4.1 mmol/L (3.5-5.1) Chloride Level 104 mmol/L (98-107) Carbon Dioxide Level 29 mmol/L (21-32) Anion Gap 10 (6-14) Blood Urea Nitrogen 18 mg/dL (7-20) Creatinine 4.5 mg/dL (0.6-1.0) H Estimated GFR (Cockcroft-Gault) 11.6 BUN/Creatinine Ratio 4 (6-20) L Glucose Level 167 mg/dL (70-99) H Calcium Level 8.3 mg/dL (8.5-10.1) L Total Bilirubin 0.4 mg/dL (0.2-1.0) Aspartate Amino Transferase (AST) 21 U/L (15-37) Alanine Aminotransferase (ALT) 13 U/L (14-59) L Alkaline Phosphatase 102 U/L (46-116) Total Protein 6.5 g/dL (6.4-8.2) Albumin 2.9 g/dL (3.4-5.0) L Albumin/Globulin Ratio 0.8 (1.0-1.7) L Laboratory Tests 10/24/18 19:53 Laboratory Tests 10/24/18 20:30 (DAVID JAIMES DO) Lab Values Laboratory Tests Test 10/24/18 19:53 10/24/18 20:30 White Blood Count 10.0 x10^3/uL (4.0-11.0) Red Blood Count 3.78 x10^6/uL (3.50-5.40) Hemoglobin 12.4 g/dL (12.0-15.5) Hematocrit 38.1 % (36.0-47.0) Mean Corpuscular Volume 101 fL (79-100) H Mean Corpuscular Hemoglobin 33 pg (25-35) Mean Corpuscular Hemoglobin Concent 33 g/dL (31-37) Red Cell Distribution Width 15.0 % (11.5-14.5) H Platelet Count 279 x10^3/uL (140-400) Neutrophils (%) (Auto) 91 % (31-73) H Lymphocytes (%) (Auto) 3 % (24-48) L Monocytes (%) (Auto) 5 % (0-9) Eosinophils (%) (Auto) 0 % (0-3) Basophils (%) (Auto) 1 % (0-3) Neutrophils # (Auto) 9.2 x10^3/uL (1.8-7.7) H Lymphocytes # (Auto) 0.2 x10^3/uL (1.0-4.8) L Monocytes # (Auto) 0.5 x10^3/uL (0.0-1.1) Eosinophils # (Auto) 0.0 x10^3/uL (0.0-0.7) Basophils # (Auto) 0.1 x10^3/uL (0.0-0.2) Segmented Neutrophils % 89 % (35-66) H Band Neutrophils % 1 % (0-9) Lymphocytes % 2 % (24-48) L Monocytes % 8 % (0-10) Platelet Estimate Adequate (ADEQUATE) D-Dimer (Rhonda) 2.74 ug/mlFEU (0.00-0.50) H Sodium Level 143 mmol/L (136-145) Potassium Level 4.1 mmol/L (3.5-5.1) Chloride Level 104 mmol/L (98-107) Carbon Dioxide Level 29 mmol/L (21-32) Anion Gap 10 (6-14) Blood Urea Nitrogen 18 mg/dL (7-20) Creatinine 4.5 mg/dL (0.6-1.0) H Estimated GFR (Cockcroft-Gault) 11.6 BUN/Creatinine Ratio 4 (6-20) L Glucose Level 167 mg/dL (70-99) H Calcium Level 8.3 mg/dL (8.5-10.1) L Total Bilirubin 0.4 mg/dL (0.2-1.0) Aspartate Amino Transferase (AST) 21 U/L (15-37) Alanine Aminotransferase (ALT) 13 U/L (14-59) L Alkaline Phosphatase 102 U/L (46-116) Total Protein 6.5 g/dL (6.4-8.2) Albumin 2.9 g/dL (3.4-5.0) L Albumin/Globulin Ratio 0.8 (1.0-1.7) L Laboratory Tests 10/24/18 19:53 Laboratory Tests 10/24/18 20:30 (JOSUE SMITH APRN) EKG EKG [] (JOSUE SMITH APRN) Radiology/Procedures Radiology/Procedures [] (JOSUE SMITH APRN) Radiology/Procedures CXR: pulmonary edema V/Q: low probability. (DAVID JAIMES DO) Course & Med Decision Making Course & Med Decision Making Pertinent Labs and Imaging studies reviewed. (See chart for details) Will check labs and give zofran. D-dimer was elevated. Will get V-Q scan. Turned patient over to Dr. Jaimes at 0122. (JOSUE SMITH APRN) Course & Med Decision Making Patient evaluated in conjunction with Josue Ramirez NP. I agrees with physical exam and testing. Nausea resolved with tx. Follow up with PCP and dialysis. (DAVID JAIMES DO) Dragon Disclaimer Dragon Disclaimer This electronic medical record was generated, in whole or in part, using a voice recognition dictation system. (JOSUE SMITH APRN) Departure Departure Impression: Primary Impression: Nausea & vomiting Disposition: 01 HOME, SELF-CARE Condition: STABLE Referrals: BERTO TORRES MD (PCP) Scripts Ondansetron Hcl (ZOFRAN) 4 Mg Tablet 1 TAB PO Q6HRS, #10 TAB 0 Refills Prov: DAVID JAIMES DO 10/25/18 JOSUE SMITH APRN Oct 24, 2018 19:46 DAVID JAIMES DO Oct 25, 2018 02:28
[2018-10-24] MEDS ORDERED: ONDANSETRON PF 4 MG/2 ML VIAL. IV ONE (20:00)
[2018-10-24 20:02] LABS: BASO # 0.1 x10^3/uL (0.0-0.2); BASO % 1 % (0-3); EOS % 0 % (0-3); HEMATOCRIT 38.1 % (36.0-47.0); HEMOGLOBIN 12.4 g/dL (12.0-15.5); LYMPH # 0.2 x10^3/uL (1.0-4.8); LYMPH % 3 % (24-48); MEAN CORPUSCULAR HEMOGLOBIN 33 pg (25-35); MEAN CORPUSCULAR HGB CONC 33 g/dL (31-37); MEAN CORPUSCULAR VOLUME 101 fL (79-100); MONO # 0.5 x10^3/uL (0.0-1.1); MONO % 5 % (0-9); NEUT # 9.2 x10^3/uL (1.8-7.7); NEUT % 91 % (31-73); PLATELET COUNT 279 x10^3/uL (140-400); RED BLOOD COUNT 3.78 x10^6/uL (3.50-5.40)
[2018-10-24 20:33] LABS: % BANDS 1 % (0-9); % LYMPHS 2 % (24-48); % MONOS 8 % (0-10); % SEGS 89 % (35-66)
[2018-10-24 20:34] LABS: PLT ESTIMATE ADEQUATE (ADEQUATE)
[2018-10-24 20:45] LABS: CALCIUM 8.3 mg/dL (8.5-10.1); CREATININE 4.5 mg/dL (0.6-1.0); GFR 11.6; POTASSIUM 4.1 mmol/L (3.5-5.1)
[2018-10-24 20:50] LABS: ALBUMIN 2.9 g/dL (3.4-5.0); ALBUMIN/GLOBULIN RATIO 0.8 (1.0-1.7); TOTAL BILIRUBIN 0.4 mg/dL (0.2-1.0); TOTAL PROTEIN 6.5 g/dL (6.4-8.2)
[2018-10-25 01:25] VITALS: BP 188/77
--- NOTE | 2018-10-25 02:06 | RAD ---
AP portable chest radiograph 10/25/2018 Clinical History: Chest pain and shortness of breath. An AP erect portable digital radiograph of the chest was obtained. Comparison study is dated 06/22/2018. The cardiac silhouette is mildly enlarged. Atherosclerotic calcification of the thoracic aorta is seen. The thoracic aorta is mildly tortuous. Prominence of pulmonary vasculature is seen suggesting mild CHF. Left lower lobe atelectasis and/ or infiltrate is noted. There is a probable small left pleural effusion. No pneumothorax is seen. The osseous structures are unchanged. Impression: 1. Findings suggesting mild CHF. 2. Left lower lobe atelectasis and/ or infiltrate with probable small left pleural effusion. Electronically signed by: Jay Galarza MD (10/25/2018 2:03 AM) [facility]
--- NOTE | 2018-10-25 02:07 | RAD ---
Lung scan 10/25/2018 CLINICAL HISTORY: Shortness of breath with elevated d-dimer. TECHNIQUE: After the administration of 17.0 mCi of xenon 133 gas, ventilation images of both lungs were obtained using the gamma camera. After the intravenous administration of 6.6 mCi of Technetium 99m MAA, perfusion images of both lungs were obtained using the gamma camera. FINDINGS: Comparison is made to portable chest radiograph performed concurrently with this study. This demonstrates mild cardiomegaly. Mild congestive changes are seen involving both lungs. Left lower lobe atelectasis and/ or infiltrate is seen. Heterogeneous ventilation and perfusion to both lungs is seen. Diminished ventilation and perfusion to the left lower lobe is noted which corresponds to the area of infiltrate/atelectasis seen on the patient's chest radiograph. No unmatched perfusion defect is seen. These findings are consistent with a low probability study for pulmonary embolism. IMPRESSION: Low probability study. Electronically signed by: Jay Galarza MD (10/25/2018 2:03 AM) [facility]
[2018-10-25] MEDS ORDERED: ONDA4TAB7 PO (02:21)
== END 2018-10-25 02:49 | disposition home or self-care (01) ==
LOC: ER 19:24
DX: R11.2 Nausea with vomiting, unspecified (principal); J81.1 Chronic pulmonary edema; J44.9 Chronic obstructive pulmonary disease, unspecified; E78.00 Pure hypercholesterolemia, unspecified; E11.22 Type 2 diabetes mellitus with diabetic chronic kidney disease; I13.0 Hypertensive heart and chronic kidney disease with heart failure and stage 1 through stage 4 chronic kidney disease, or unspecified chronic kidney disease; N18.9 Chronic kidney disease, unspecified; I50.9 Heart failure, unspecified; I25.10 Atherosclerotic heart disease of native coronary artery without angina pectoris; I25.2 Old myocardial infarction; Z86.73 Personal history of transient ischemic attack (TIA), and cerebral infarction without residual deficits; Z95.5 Presence of coronary angioplasty implant and graft; Z91.041 Radiographic dye allergy status
CPT/HCPCS: 36415; 71045; 78582; 80053; 85007; 85025; 85379; 96374; 99285; A9540; A9558; J2405

== ENCOUNTER 2018-11-05 04:57 | Observation (INO) | payer MEDICARE ==
[2018-11-05] VITALS (11 sets, daily range): BP systolic 102–163; BP diastolic 52–87
[~2018-11-05] VITALS: Ht 154.9 cm; Wt 63.6 kg
[~2018-11-05 04:57] MED LIST changes: +ONDA4TAB7 PO
[2018-11-05] MEDS ORDERED: IPRATRPIUM/ALBUTEROL 0.5/2.5MG 3 ML NEBU. NEB ONE (05:15)
[2018-11-05] MEDS ORDERED: DEXAMETHASONE SOD PHOS 20 MG/5 ML VIAL. IV ONE (05:15)
[2018-11-05] MEDS ORDERED: ATROPINE 1 MG/10 ML DISP.SYRINGE. IV ONE (05:15)
[2018-11-05] MEDS ORDERED: ASPIRIN 325 MG TABLET PO ONE (05:15)
[2018-11-05 05:47] LABS: BASO % 1 % (0-3); EOS % 1 % (0-3); HEMATOCRIT 27.7 % (36.0-47.0); LYMPH # 0.5 x10^3/uL (1.0-4.8); LYMPH % 7 % (24-48); MEAN CORPUSCULAR HEMOGLOBIN 33 pg (25-35); MEAN CORPUSCULAR HGB CONC 32 g/dL (31-37); MEAN CORPUSCULAR VOLUME 102 fL (79-100); MONO # 0.5 x10^3/uL (0.0-1.1); MONO % 6 % (0-9); NEUT # 6.7 x10^3/uL (1.8-7.7); NEUT % 86 % (31-73); PLATELET COUNT 295 x10^3/uL (140-400); RED BLOOD COUNT 2.71 x10^6/uL (3.50-5.40); RED CELL DISTRIBUTION WIDTH 14.6 % (11.5-14.5); WHITE BLOOD COUNT 7.9 x10^3/uL (4.0-11.0)
--- NOTE | 2018-11-05 05:50 | PHYS DOC ---
Past Medical History Past Medical History: CAD, CHF, COPD, Diabetes-Type II, DVT, High Cholesterol, Hypertension, SD, Renal Disease, Renal Failure, Other Additional Past Medical Histor: dialysis MWF, O2 3LNC @ home, CPAP Past Surgical History: Angioplasty, Other Additional Past Surgical Histo: cardiac cath with stent placement, rotator cuff surgery,AV graft, cataract, Smoking: Quit Greater Than 1 Year Alcohol Use: None Drug Use: None Adult General Chief Complaint Chief Complaint: SHORTNESS OF BREATH HPI HPI Ms. Banks is a pleasant and conversational 72yo AAF w/ PMH significant for renal failure, HTN, DM, and COPD presents tonight for COPD exacerbation that began on Monday and has progressively worsened since. Dialysis was last done on Monday, next appointment was scheduled for today (Monday). Denies cough. Denies fever/chills. Denies trauma. Denies syncope or chest pain. Review of Systems Review of Systems Constitutional: Denies fever or chills Eyes: Denies redness or eye pain HENT: Denies nasal congestion or sore throat Respiratory: Reports shortness of breath. Denies cough. Cardiovascular: Denies chest pain or palpitations. GI: Reports chronic intermittent diarrhea and constipation. Denies abdominal pain, nausea, vomiting or hematochezia. : Denies dysuria or hematuria Musculoskeletal: Denies back pain or joint pain Integument: Denies rash or skin lesions Neurologic: Denies headache, focal weakness or sensory changes Complete systems were reviewed and found to be within normal limits, except as documented in this note. Current Medications Current Medications Current Medications Medications (Trade) Dose Ordered Sig/[facility] Start Time Stop Time Status Last Admin Dose Admin Albuterol/ Ipratropium (Duoneb) 3 ml 1X ONCE 11/05/18 05:15 11/05/18 05:16 DC 11/05/18 05:34 3 ML Aspirin (Hung Aspirin) 325 mg 1X ONCE 11/05/18 05:15 11/05/18 05:16 DC 11/05/18 05:27 325 MG Atropine Sulfate (ATROPINE 1mg SYRINGE) 1 mg 1X ONCE 11/05/18 05:15 11/05/18 05:16 DC 11/05/18 05:47 1 MG Dexamethasone Sodium Phosphate (Decadron) 10 mg 1X ONCE 11/05/18 05:15 11/05/18 05:16 DC 11/05/18 05:34 10 MG Dextrose (Dextrose 50%-Water Syringe) 12.5 gm PRN Q15MIN PRN 11/05/18 06:00 Insulin Human Lispro (HumaLOG) 0-5 UNITS TIDWMEALS 11/05/18 08:00 UNV Ondansetron HCl (Zofran) 4 mg PRN Q8HRS PRN 11/05/18 06:00 11/06/18 05:59 Allergies Allergies Allergies Coded Allergies Type Severity Reaction Last Updated Verified Iodinated Contrast- Oral and IV Dye Allergy Intermediate 11/06/17 Yes Physical Exam Physical Exam Constitutional: pleasant, well developed, well nourished, mild acute distress, non-toxic appearance HENT: Normocephalic, atraumatic, oropharynx moist Eyes: PERRL, EOMI, conjunctiva normal, no discharge Neck: Normal range of motion, no tenderness, supple Cardiovascular: Heart RRR w/ no gallops, rubs, or murmurs; UE radial pulses intact 2/4 b/l Lungs & Thorax: Bilateral breath sounds clear to auscultation throughout, no wheezing Abdomen: soft, non-tender, non-distended, no ecchymosis Skin: Warm, dry, no erythema, no rash Back: No tenderness, no CVA tenderness Extremities: No tenderness, ROM intact, no edema Neurologic: Alert and oriented X 3, normal motor function, normal sensory function, no focal deficits noted Psychologic: Affect normal, judgement normal, mood normal Current Patient Data Vital Signs Vital Signs Date Time Temp Pulse Resp B/P (MAP) Pulse Ox O2 Delivery O2 Flow Rate FiO2 11/05/18 05:35 97 Nasal Cannula 2.0 11/05/18 04:57 96.7 36 17 114/58 (76) 96.7 Lab Values Laboratory Tests Test 11/05/18 05:29 White Blood Count 7.9 x10^3/uL (4.0-11.0) Red Blood Count 2.71 x10^6/uL (3.50-5.40) L Hemoglobin 9.0 g/dL (12.0-15.5) L Hematocrit 27.7 % (36.0-47.0) L Mean Corpuscular Volume 102 fL (79-100) H Mean Corpuscular Hemoglobin 33 pg (25-35) Mean Corpuscular Hemoglobin Concent 32 g/dL (31-37) Red Cell Distribution Width 14.6 % (11.5-14.5) H Platelet Count 295 x10^3/uL (140-400) Neutrophils (%) (Auto) 86 % (31-73) H Lymphocytes (%) (Auto) 7 % (24-48) L Monocytes (%) (Auto) 6 % (0-9) Eosinophils (%) (Auto) 1 % (0-3) Basophils (%) (Auto) 1 % (0-3) Neutrophils # (Auto) 6.7 x10^3/uL (1.8-7.7) Lymphocytes # (Auto) 0.5 x10^3/uL (1.0-4.8) L Monocytes # (Auto) 0.5 x10^3/uL (0.0-1.1) Eosinophils # (Auto) 0.0 x10^3/uL (0.0-0.7) Basophils # (Auto) 0.0 x10^3/uL (0.0-0.2) Platelet Estimate Pending Sodium Level 139 mmol/L (136-145) Potassium Level 6.0 mmol/L (3.5-5.1) H Chloride Level 103 mmol/L (98-107) Carbon Dioxide Level 24 mmol/L (21-32) Anion Gap 12 (6-14) Blood Urea Nitrogen 49 mg/dL (7-20) H Creatinine 8.5 mg/dL (0.6-1.0) H Estimated GFR (Cockcroft-Gault) 5.5 BUN/Creatinine Ratio 6 (6-20) Glucose Level 227 mg/dL (70-99) H Lactic Acid Level 2.1 mmol/L (0.4-2.0) H Calcium Level 8.2 mg/dL (8.5-10.1) L Magnesium Level Pending Total Bilirubin Pending Aspartate Amino Transferase (AST) Pending Alanine Aminotransferase (ALT) Pending Alkaline Phosphatase Pending Total Protein Pending Albumin Pending Albumin/Globulin Ratio Pending Laboratory Tests 11/05/18 05:29 Laboratory Tests 11/05/18 05:29 EKG EKG @0505 Sinus bradycardia at 32bpm, NO ST elevation. QRS 144ms, QT/QTc 576ms/420ms, Radiology/Procedures Radiology/Procedures CXR AP (preliminary interpretation by ED physician): Mild vascular congestion, cardiomegaly.[] Course & Med Decision Making Course & Med Decision Making Pertinent Labs and Imaging studies reviewed. (See chart for details) Patient presents with report of SOA. Noted to have significant bradycardia down to 30s. Patient given atropine with improvement up to 40s. Labs obtained and posted to chart. Hyperkalemia noted. Patient is ESRD on HD M/W/. Calcium, Bicarb, Continuous albuterol and Insulin/Dextrose provided. Troponin slightly elevated likely due to hyperkalemia. Discussed case with Dr. Bustamante (cardiology) and Dr. Phillips (nephrology). Both are in agreement with consultation. Plan for HD. Labs not fully returned. Sign out given to Dr. Dixon for follow-up on labs. Patient requiring admission for further evaluation and treatment. Discussed with Dr. Everett (hospitalist) who is in agreement with admission. Discussed findings and plan with patient and family, who acknowledge understanding and agreement. Dragon Disclaimer Dragon Disclaimer This electronic medical record was generated, in whole or in part, using a voice recognition dictation system. Departure Departure Impression: Primary Impression: Symptomatic bradycardia Additional Impressions: Hyperkalemia Elevated troponin Disposition: ADMITTED INPATIENT Admitting Physician: GIAN (Marguerite) Condition: GUARDED Referrals: BERTO TORRES MD (PCP) Critical Care Time Critical care time was 30 minutes which includes time at bedside, spent in d iscussion of patient's care with specialists and/or family members, with interpretation of laboratory and/or radiological studies and is exclusive of procedures. Problem Qualifiers ROSALIA HACKETT DO Nov 05, 2018 05:50
[2018-11-05] MEDS ORDERED: DEXTROSE 50% 25 GM / 50ML DISP.SYRIN. IV PRN (06:00)
[2018-11-05] MEDS ORDERED: ONDANSETRON PF 4 MG/2 ML VIAL. IV PRN (06:00)
[2018-11-05 06:02] LABS: CALCIUM 8.2 mg/dL (8.5-10.1); CREATININE 8.5 mg/dL (0.6-1.0); GFR 5.5
[2018-11-05 06:14] LABS: ALBUMIN 2.7 g/dL (3.4-5.0); ALBUMIN/GLOBULIN RATIO 0.8 (1.0-1.7); MAGNESIUM 1.8 mg/dL (1.8-2.4); TOTAL BILIRUBIN 0.4 mg/dL (0.2-1.0); TOTAL PROTEIN 6.2 g/dL (6.4-8.2)
[2018-11-05 06:16] LABS: CREATINE KINASE 97 U/L (26-192)
[2018-11-05] MEDS ORDERED: CALCIUM GLUCONATE 1,000 MG/10 ML VIAL. IVP ONE (06:30)
[2018-11-05] MEDS ORDERED: INSULIN REGULAR 100 UNIT/ML 3ML VIAL. IV ONE (06:30)
[2018-11-05] MEDS ORDERED: SODIUM BICARB ADULT 8.4% 50 MEQ/50 ML DISP.SYRIN. IV ONE (06:30)
[2018-11-05] MEDS ORDERED: ALBUTEROL SULFATE 2.5 MG/3 ML NEBU. CONT NEB ONE (06:30)
[2018-11-05 07:18] LABS: % ATYL 1 % (0-0); % BANDS 4 % (0-9); % BASOS 1 % (0-3); % LYMPHS 7 % (24-48); % MONOS 8 % (0-10); % SEGS 79 % (35-66); PLT ESTIMATE ADEQUATE (ADEQUATE)
[2018-11-05 07:19] LABS: OVALOCYTES FEW; POLYCHROMASIA SLIGHT
[2018-11-05 07:20] LABS: ACANTHOCYTES OCC; SCHISTOCYTES OCC
--- NOTE | 2018-11-05 07:51 | EKG ---
[facility] [address] [place] [address] Test Date: 2018-11-05 Test Time: 05:05:59 Pat Name: WANDA PRABHAKAR Department: Room: Gender: F Straightener Hand: : 1945 Requested By: ROSALIA HACKETT Order Number: [id number] Reading MD: Measurements Intervals [place] Rate: 31 P: OR: QRS: -71 QRSD: 144 T: 43 QT: 576 QTc: 420 Interpretive Statements IDIOVENTRICULAR RHYTHM ABNORMAL ECG No previous ECG available for comparison
--- NOTE | 2018-11-05 07:52 | RAD ---
Exam performed: One view chest HISTORY: Shortness of breath DATE OF SERVICE: 11/05/2018. COMPARISON: Single view chest from October 25, 2018. Single AP upright portable view chest findings: Cardiomegaly is stable. Atheromatous calcification of the aortic knob with ectatic tortuous aorta. Mild central vascular congestion is noted with prominent interstitial markings in both lungs some of which may be chronic. There may be small left pleural effusion. IMPRESSION: 1. Stable cardiomegaly with mild Central vascular congestion. 2. Haziness left lower lobe which may in part be related to cardiomegaly, however left lower lobe infiltrate/atelectasis with small pleural effusion not excluded. The findings are however unchanged since the previous exam. Electronically signed by: Cassie Penny MD (11/05/2018 7:49 AM) [facility]
[2018-11-05] MEDS ORDERED: ASPI-630 PO (08:05)
[2018-11-05] MEDS ORDERED: CLOP75TA PO (08:05)
[2018-11-05] MEDS: INSULIN LISPRO 300 UNITS/3 ML INSULN.PEN. SQ SCH ×3 (08:37→18:41)
--- NOTE | 2018-11-05 09:48 | PDOC2 ---
CONSULT Date of Consult Date of Consult DATE: 11/05/18 TIME: 09:39 Reason for Consult Reason for Consult: ESRD, Hyperkalemia Source Source: Chart review, Patient History of Present Illness Reason for Visit: Pt is a 72yo AAF w/ PMH significant for ESRD , HTN, DM, and COPD presented to ER last night for COPD exacerbation that began on Monday and has progressiv bryant worsened since. Dialysis was last done on Monday Denies cough. Denies fever/chills. Denies trauma. Denies syncope or chest pain. In the ER was noted to have significant bradycardia down to 30s, given atropine with improvement up to 40s. Had K of 6 recd Temporizing measure Past Medical History Cardiovascular: AFIB, CAD, CHF, HTN, Hyperlipidemia, Other Pulmonary: Asthma, COPD, Other CENTRAL NERVOUS SYSTEM: Other GI: Diverticulosis Heme/Onc: Anemia NOS Psych: Anxiety Rheumatologic: No pertinent hx Infectious disease: No pertinent hx Renal/: Chronic renal failure Endocrine: Diabetes, Hyperparathyroidism Past Surgical History Past Surgical History: Appendectomy, Arthroscopy, Cataract Removal, Other Family History Family History: Coronary Artery Disease, Diabetes, Hypertension Social History ALCOHOL: none Drugs: None Lives: with Family Domestic Violence: Neg Current Problem List Problem List Problems Medical Problems: (1) Elevated troponin Status: Acute (2) Hyperkalemia Status: Acute Current Medications Current Medications Current Medications Albuterol/ Ipratropium (Duoneb) 3 ml 1X ONCE NEB Last administered on 11/05/18at 05:34; Start 11/05/18 at 05:15; Stop 11/05/18 at 05:16; Status DC Aspirin (Hung Aspirin) 325 mg 1X ONCE PO Last administered on 11/05/18at 05:27; Start 11/05/18 at 05:15; Stop 11/05/18 at 05:16; Status DC Dexamethasone Sodium Phosphate (Decadron) 10 mg 1X ONCE IV Last administered on 11/05/18at 05:34; Start 11/05/18 at 05:15; Stop 11/05/18 at 05:16; Status DC Atropine Sulfate (ATROPINE 1mg SYRINGE) 1 mg 1X ONCE IV Last administered on 11/05/18at 05:47; Start 11/05/18 at 05:15; Stop 11/05/18 at 05:16; Status DC Ondansetron HCl (Zofran) 4 mg PRN Q8HRS PRN IV NAUSEA/VOMITING; Start 11/05/18 at 06:00; Stop 11/06/18 at 05:59 Insulin Human Lispro (HumaLOG) 0-5 UNITS TIDWMEALS SQ ; Start 11/05/18 at 08:00 Dextrose (Dextrose 50%-Water Syringe) 12.5 gm PRN Q15MIN PRN IV SEE COMMENTS Last administered on 11/05/18at 06:26; Start 11/05/18 at 06:00 Calcium Gluconate (Calcium Gluconate) 1,000 mg 1X ONCE IVP Last administered on 11/05/18at 06:26; Start 11/05/18 at 06:30; Stop 11/05/18 at 06:31; Status DC Albuterol Sulfate (Ventolin Neb Soln) 20 mg 1X ONCE CONT NEB Last administered on 11/05/18at 06:33; Start 11/05/18 at 06:30; Stop 11/05/18 at 06:31; Status DC Sodium Bicarbonate (Sodium Bicarb Adult 8.4% Syr) 50 meq 1X ONCE IV Last administered on 11/05/18at 06:25; Start 11/05/18 at 06:30; Stop 11/05/18 at 06:31; Status DC Insulin Human Regular (HumuLIN R VIAL) 10 unit 1X ONCE IV Last administered on 11/05/18at 06:25; Start 11/05/18 at 06:30; Stop 11/05/18 at 06:31; Status DC Active Scripts Active Zofran (Ondansetron Hcl) 4 Mg Tablet 1 Tab PO Q6HRS Amiodarone Hcl 200 Mg Tablet 200 Mg PO DAILY MDD 1 Eliquis (Apixaban) 5 Mg Tablet 5 Mg PO BID MDD ` [Albuterol Sulfate] 2.5 MG/3 ML Nebu 2.5 Mg NEB PRN Q4HRS PRN Reported Clopidogrel (Clopidogrel Bisulfate) 75 Mg Tablet 1 Tab PO DAILY Aspirin 81 Mg Tab.chew 1 Tab PO DAILY Protonix (Pantoprazole Sodium) 20 Mg Tablet.dr 1 Tab PO DAILY Diltiazem 24HR Cd (Diltiazem Hcl) 180 Mg Cap.er.24h 180 Mg PO DAILY Lipitor (Atorvastatin Calcium) 40 Mg Tablet 40 Mg PO HS Hydrocodone-Acetamin 5-325 mg (Hydrocodone/Acetaminophen) 1 Each Tablet 1 Each PO PRN Q6HRS PRN Furosemide 40 Mg Tablet 40 Mg PO DAILY Symbicort 160-4.5 Mcg Inhaler (Budesonide/Formoterol Fumarate) 10.2 Gm Hfa.aer.ad 2 Puff IH BID Toprol Xl (Metoprolol Succinate) 100 Mg Tab.er.24h 100 Mg PO DAILY Proair Hfa Inhaler (Albuterol Sulfate) 8.5 Gm Hfa.aer.ad 1 Puff INH PRN Q6HRS SD N Marina-Jayme Tablet (Folic Acid/Vitamin B Comp W-C) 0.8 Mg Tablet 0.8 Mg PO DAILY Hydroxyzine Hcl 25 Mg Tablet 50 Mg PO QMWF Lisinopril 20 Mg Tablet 1 Tab PO DAILY Lantus Solostar (Insulin Glargine,Hum.rec.anlog) 100 Unit/1 Ml Insuln.pen 15 Unit SQ QHS Aspirin 325 Mg Tablet 1 Tab PO DAILY Allergies Allergies: Coded Allergies: Iodinated Contrast- Oral and IV Dye (Verified Allergy, Intermediate, 11/06/17) ROS Review of System Per HPI Physical Exam Physical Exam GEN: NAD HEEN:OM moist NECK: Supple CVS: S1S2 RESP: CTA, No Acc. Muscle Use GI: BS + ve, Non Tender : No CVA tenderness, No Suprapubic Tenderness, No Guerrier NEURO: Grossly normal SKIN No rash Vital Signs Vital Signs Date Time Temp Pulse Resp B/P (MAP) Pulse Ox O2 Delivery O2 Flow Rate FiO2 11/05/18 08:58 97.7 46 18 102/54 (70) Nasal Cannula 3.0 97.7 11/05/18 06:45 94 Assessment & Plan ESRD- On HD MWF Seen on HD, Continue as ordered, Richard Sandra Hyperkalemia- temporizing measures in ER HD today COPD - stable Bradycardia - due to hyperkalemia per cardiology Anemia- Hgb decreased from 10/19(12.4-->9) GI bleed in june 2018, post EGD Monitor, defer to Primary Labs Labs Laboratory Tests Test 11/05/18 05:29 11/05/18 08:36 11/05/18 08:40 White Blood Count 7.9 x10^3/uL (4.0-11.0) Red Blood Count 2.71 x10^6/uL (3.50-5.40) Hemoglobin 9.0 g/dL (12.0-15.5) Hematocrit 27.7 % (36.0-47.0) Mean Corpuscular Volume 102 fL (79-100) Mean Corpuscular Hemoglobin 33 pg (25-35) Mean Corpuscular Hemoglobin Concent 32 g/dL (31-37) Red Cell Distribution Width 14.6 % (11.5-14.5) Platelet Count 295 x10^3/uL (140-400) Neutrophils (%) (Auto) 86 % (31-73) Lymphocytes (%) (Auto) 7 % (24-48) Monocytes (%) (Auto) 6 % (0-9) Eosinophils (%) (Auto) 1 % (0-3) Basophils (%) (Auto) 1 % (0-3) Neutrophils # (Auto) 6.7 x10^3/uL (1.8-7.7) Lymphocytes # (Auto) 0.5 x10^3/uL (1.0-4.8) Monocytes # (Auto) 0.5 x10^3/uL (0.0-1.1) Eosinophils # (Auto) 0.0 x10^3/uL (0.0-0.7) Basophils # (Auto) 0.0 x10^3/uL (0.0-0.2) Segmented Neutrophils % 79 % (35-66) Band Neutrophils % 4 % (0-9) Lymphocytes % 7 % (24-48) Atypical Lymphocytes % (Manual) 1 % (0-0) Monocytes % 8 % (0-10) Basophils % 1 % (0-3) Platelet Estimate Adequate (ADEQUATE) Polychromasia Slight Macrocytosis Slight Ovalocytes Few Crenated Cell Present Acanthocytes Occ Schistocytes Occ Sodium Level 139 mmol/L (136-145) Potassium Level 6.0 mmol/L (3.5-5.1) Chloride Level 103 mmol/L (98-107) Carbon Dioxide Level 24 mmol/L (21-32) Anion Gap 12 (6-14) Blood Urea Nitrogen 49 mg/dL (7-20) Creatinine 8.5 mg/dL (0.6-1.0) Estimated GFR (Cockcroft-Gault) 5.5 BUN/Creatinine Ratio 6 (6-20) Glucose Level 227 mg/dL (70-99) Lactic Acid Level 2.1 mmol/L (0.4-2.0) Calcium Level 8.2 mg/dL (8.5-10.1) Magnesium Level 1.8 mg/dL (1.8-2.4) Total Bilirubin 0.4 mg/dL (0.2-1.0) Aspartate Amino Transf (AST/SGOT) 31 U/L (15-37) Alanine Aminotransferase (ALT/SGPT) 22 U/L (14-59) Alkaline Phosphatase 88 U/L (46-116) Creatine Kinase 97 U/L (26-192) Creatine Kinase MB (Mass) 5.7 ng/mL (0.0-3.6) Creatine Kinase MB Relative Index 5.9 % (0-4) Troponin I Quantitative 0.084 ng/mL (0.000-0.055) 0.084 ng/mL (0.000-0.055) QB-Bdb-F-Type Natriuretic Peptide > 88635 pg/mL (0-124) Total Protein 6.2 g/dL (6.4-8.2) Albumin 2.7 g/dL (3.4-5.0) Albumin/Globulin Ratio 0.8 (1.0-1.7) Glucose (Fingerstick) 113 mg/dL (70-99) Laboratory Tests Test 11/05/18 05:29 11/05/18 08:36 11/05/18 08:40 White Blood Count 7.9 x10^3/uL (4.0-11.0) Red Blood Count 2.71 x10^6/uL (3.50-5.40) Hemoglobin 9.0 g/dL (12.0-15.5) Hematocrit 27.7 % (36.0-47.0) Mean Corpuscular Volume 102 fL (79-100) Mean Corpuscular Hemoglobin 33 pg (25-35) Mean Corpuscular Hemoglobin Concent 32 g/dL (31-37) Red Cell Distribution Width 14.6 % (11.5-14.5) Platelet Count 295 x10^3/uL (140-400) Neutrophils (%) (Auto) 86 % (31-73) Lymphocytes (%) (Auto) 7 % (24-48) Monocytes (%) (Auto) 6 % (0-9) Eosinophils (%) (Auto) 1 % (0-3) Basophils (%) (Auto) 1 % (0-3) Neutrophils # (Auto) 6.7 x10^3/uL (1.8-7.7) Lymphocytes # (Auto) 0.5 x10^3/uL (1.0-4.8) Monocytes # (Auto) 0.5 x10^3/uL (0.0-1.1) Eosinophils # (Auto) 0.0 x10^3/uL (0.0-0.7) Basophils # (Auto) 0.0 x10^3/uL (0.0-0.2) Segmented Neutrophils % 79 % (35-66) Band Neutrophils % 4 % (0-9) Lymphocytes % 7 % (24-48) Atypical Lymphocytes % (Manual) 1 % (0-0) Monocytes % 8 % (0-10) Basophils % 1 % (0-3) Platelet Estimate Adequate (ADEQUATE) Polychromasia Slight Macrocytosis Slight Ovalocytes Few Crenated Cell Present Acanthocytes Occ Schistocytes Occ Sodium Level 139 mmol/L (136-145) Potassium Level 6.0 mmol/L (3.5-5.1) Chloride Level 103 mmol/L (98-107) Carbon Dioxide Level 24 mmol/L (21-32) Anion Gap 12 (6-14) Blood Urea Nitrogen 49 mg/dL (7-20) Creatinine 8.5 mg/dL (0.6-1.0) Estimated GFR (Cockcroft-Gault) 5.5 BUN/Creatinine Ratio 6 (6-20) Glucose Level 227 mg/dL (70-99) Lactic Acid Level 2.1 mmol/L (0.4-2.0) Calcium Level 8.2 mg/dL (8.5-10.1) Magnesium Level 1.8 mg/dL (1.8-2.4) Total Bilirubin 0.4 mg/dL (0.2-1.0) Aspartate Amino Transf (AST/SGOT) 31 U/L (15-37) Alanine Aminotransferase (ALT/SGPT) 22 U/L (14-59) Alkaline Phosphatase 88 U/L (46-116) Creatine Kinase 97 U/L (26-192) Creatine Kinase MB (Mass) 5.7 ng/mL (0.0-3.6) Creatine Kinase MB Relative Index 5.9 % (0-4) Troponin I Quantitative 0.084 ng/mL (0.000-0.055) 0.084 ng/mL (0.000-0.055) VF-Ekx-F-Type Natriuretic Peptide > 03763 pg/mL (0-124) Total Protein 6.2 g/dL (6.4-8.2) Albumin 2.7 g/dL (3.4-5.0) Albumin/Globulin Ratio 0.8 (1.0-1.7) Glucose (Fingerstick) 113 mg/dL (70-99) Review All relevant outside records, renal labs, imaging studies, telemetry/EKG's were reviewed. Images Images CxR-- 1. Stable cardiomegaly with mild Central vascular congestion. 2. Haziness left lower lobe which may in part be related to cardiomegaly, however left lower lobe infiltrate/atelectasis with small pleural effusion not excluded. The findings are however unchanged since the previous exam. DESIREE MELARA MD Nov 05, 2018 09:48
[2018-11-05] MEDS ORDERED: IV NORMAL SALINE 1000ML BAG 1,000 ML IV PRN ×2 (10:06)
[2018-11-05] MEDS ORDERED: DIALYSIS PATIENT. MC PRN ×2 (10:15)
[2018-11-05] MEDS ORDERED: ALBUMIN HUMAN 25% 200 ML IV PRN (10:15)
--- NOTE | 2018-11-05 12:02 | HP ---
ADMIT DATE: 11/05/2018 CHIEF COMPLAINT: Shortness of breath. HISTORY OF PRESENT ILLNESS: The patient is a pleasant elderly female well known to our service. She is on dialysis. She began having shortness of breath 2 days ago. She also has known COPD. Her symptoms are rated at 9/10. She has associated weakness. She did dialyze Monday, but then began developing shortness of breath the next morning. While in the ER, she was also bradycardic and hyperkalemic and has an elevated troponin. I discussed the case with ER physician. We are going to admit the patient. I suspect she is also volume overloaded. PAST MEDICAL HISTORY: End-stage renal disease, on dialysis; CAD; CHF; COPD; hypertension; hyperlipidemia; angioplasty; cardiac catheterization; rotator cuff surgery; AV graft; cataract surgery. ALLERGIES: IODINE. FAMILY HISTORY: Coronary artery disease. SOCIAL HISTORY: She does not drink, smoke or take drugs (she quit smoking). MEDICATIONS: Reviewed, please refer to the MRAD. REVIEW OF SYSTEMS: GENERAL: No history of weight change, weakness or fevers. SKIN: No bruising, hair changes or rashes. EYES: No blurred, double or loss of vision. NOSE AND THROAT: No history of nosebleeds, hoarseness or sore throat. HEART: No history of palpitations, chest pain or shortness of breath on exertion. LUNGS: She complains of shortness of breath, although it is improved. Denies cough, hemoptysis, wheezing. GASTROINTESTINAL: Denies changes in appetite, nausea, vomiting, diarrhea or constipation. GENITOURINARY: No history of frequency, urgency, hesitancy or nocturia. NEUROLOGIC: Denies history of numbness, tingling, tremor or weakness. PSYCHIATRIC: No history of panic, anxiety or depression. ENDOCRINE: No history of heat or cold intolerance, polyuria or polydipsia. EXTREMITIES: Denies muscle weakness, joint pain, pain on walking or stiffness. PHYSICAL EXAMINATION: VITALS: Within normal limits and are stable. GENERAL: No apparent distress. Alert and oriented. HEENT: Head is normocephalic, atraumatic, pupils were equally round and reactive to light and accommodation. NECK: Supple, no JVD, no thyromegaly was noted. LUNGS: Clear to auscultation in all lung gonzalez without rhonchi or wheezing. HEART: RRR, S1, S2 present. Peripheral pulses intact, no obvious murmurs were noted. ABDOMEN: Soft, nontender. Positive bowel sounds no organomegaly, normal bowel sounds. EXTREMITIES: Without any cyanosis, clubbing, or edema. Pedal pulses intact, Homans sign is negative. NEUROLOGIC: Normal speech, normal tone. A & O x 3, moves all extremities, no obvious focal deficits. PSYCHIATRIC: Normal affect, normal mood. Stable. SKIN: No ulcerations or rashes, good skin turgor, no jaundice. VASCULAR: Good capillary refill, neurovascular bundle appears to be intact. LABORATORY DATA: Potassium is 6. Hemoglobin is 9. Troponin is 0.08. BNP greater than 35,000. Chest x-ray shows some volume overload. ASSESSMENT AND PLAN: Acute on chronic systolic and diastolic heart failure and volume overload, elevated troponin, hyperkalemia in an elderly female who has multiple comorbidities including end-stage renal disease, on dialysis. The patient has been admitted. We will get her dialyzed today. Consult Nephrology, consult Cardiology, ICU monitoring, home meds, PT, OT, DVT prophylaxis. PROGNOSIS: Guarded. YULIA DE ANDA DO DR: MAGO/courtney JOB#: [id number] / [id number]
--- NOTE | 2018-11-05 13:13 | PDOC2 ---
DARSHANA PEPE LAUNCHMAN 11/05/18 1313: CARDIAC CONSULT DATE OF CONSULT Date of Consult DATE: 11/05/18 TIME: 13:13 REASON FOR CONSULT Reason for Consult: symptomatic bradycardia REFERRING PHYSICIAN Referring Physician: Dr. Ramirez SOURCE Source: Chart review, Patient HISTORY OF PRESENT ILLNESS HISTORY OF PRESENT ILLNESS This is a 72 yo female, with a history of PAFIB and ESRD on HD, who presented secondary to shortness of breath for the last couple of days. Associated with mild LE edema, more on the LLE. No associated chest pain, palpitations, dizziness, diaphoresis, or nausea/vomiting. Was noted to be sinus bradycardiac with a HR at 32 in ED, which prompted this consult. Initial labs notable for hyperkalemia with a K of 6.0. Patient reports compliance with HD. PAST MEDICAL HISTORY Past Medical History Cardiovascular: CAD, CHF, HTN, Hyperlipidemia, Pulmonary hypertension, AFIB Pulmonary: Asthma, COPD, PNA, PENNY CENTRAL NERVOUS SYSTEM: Other (no pertinent hx) GI: GERD Heme/Onc: Anemia NOS, Other (DVT) Renal/: Chronic renal failure on HD Endocrine: Diabetes Dermatology: No pertinent hx PAST SURGICAL HISTORY Past Surgical History Appendectomy, Other (left rotator cuff sx), Other (PVD s/p PAINTER PLATE/stent to left common iliac artery, endovascular AAA repair) FAMILY HISTORY Family History: Coronary Artery Disease, Diabetes, Hypertension SOCIAL HISTORY Social History Smoke: Quit ALCOHOL: none Drugs: None Lives: with Family CURRENT MEDICATIONS CURRENT MEDICATIONS Current Medications Medications (Trade) Dose Ordered Sig/Eric Route PRN Reason Start Time Stop Time Status Last Admin Dose Admin Albuterol/ Ipratropium (Duoneb) 3 ml 1X ONCE NEB 11/05/18 05:15 11/05/18 05:16 DC 11/05/18 05:34 Aspirin (Hung Aspirin) 325 mg 1X ONCE PO 11/05/18 05:15 11/05/18 05:16 DC 11/05/18 05:27 Dexamethasone Sodium Phosphate (Decadron) 10 mg 1X ONCE IV 11/05/18 05:15 11/05/18 05:16 DC 11/05/18 05:34 Atropine Sulfate (ATROPINE 1mg SYRINGE) 1 mg 1X ONCE IV 11/05/18 05:15 11/05/18 05:16 DC 11/05/18 05:47 Insulin Human Lispro (HumaLOG) 0-5 UNITS TIDWMEALS SQ 11/05/18 08:00 11/05/18 12:23 Dextrose (Dextrose 50%-Water Syringe) 12.5 gm PRN Q15MIN PRN IV SEE COMMENTS 11/05/18 06:00 11/05/18 06:26 Calcium Gluconate (Calcium Gluconate) 1,000 mg 1X ONCE IVP 11/05/18 06:30 11/05/18 06:31 DC 11/05/18 06:26 Albuterol Sulfate (Ventolin Neb Soln) 20 mg 1X ONCE CONT NEB 11/05/18 06:30 11/05/18 06:31 DC 11/05/18 06:33 Sodium Bicarbonate (Sodium Bicarb Adult 8.4% Syr) 50 meq 1X ONCE IV 11/05/18 06:30 11/05/18 06:31 DC 11/05/18 06:25 Insulin Human Regular (HumuLIN R VIAL) 10 unit 1X ONCE IV 11/05/18 06:30 11/05/18 06:31 DC 11/05/18 06:25 ALLERGIES ALLERGIES: Coded Allergies: Iodinated Contrast- Oral and IV Dye (Verified Allergy, Intermediate, 11/06/17) ROS Review of System 14 point ROS conducted with pertinent positives noted above in HPI PHYSICAL EXAM PHYSICAL EXAM General: Alert, Oriented X3, Cooperative, No acute distress HEENT: Atraumatic, Mucous membr. moist/pink Lungs: Other (upper rhonchi) Heart: RRR, S1, S2 Abdomen: Soft, No tenderness Extremities: No cyanosis, Other (trace LLE edema) Skin: No breakdown, No significant lesion Neuro: Normal speech, Sensation intact Psych/Mental Status: Mental status NL MUSCULOSKELETAL: Osteoarthritic changes both hands VITALS/I&O VITALS/I&O: Vital Signs Date Time Temp Pulse Resp B/P (MAP) Pulse Ox O2 Delivery O2 Flow Rate FiO2 11/05/18 12:17 63 20 114/64 (81) 99 Nasal Cannula 3.0 11/05/18 08:58 97.7 97.7 LABS Lab: Laboratory Tests Test 11/05/18 05:29 11/05/18 08:36 11/05/18 08:40 11/05/18 11:45 White Blood Count 7.9 x10^3/uL (4.0-11.0) Red Blood Count 2.71 x10^6/uL (3.50-5.40) L Hemoglobin 9.0 g/dL (12.0-15.5) L Hematocrit 27.7 % (36.0-47.0) L Mean Corpuscular Volume 102 fL (79-100) H Mean Corpuscular Hemoglobin 33 pg (25-35) Mean Corpuscular Hemoglobin Concent 32 g/dL (31-37) Red Cell Distribution Width 14.6 % (11.5-14.5) H Platelet Count 295 x10^3/uL (140-400) Neutrophils (%) (Auto) 86 % (31-73) H Lymphocytes (%) (Auto) 7 % (24-48) L Monocytes (%) (Auto) 6 % (0-9) Eosinophils (%) (Auto) 1 % (0-3) Basophils (%) (Auto) 1 % (0-3) Neutrophils # (Auto) 6.7 x10^3/uL (1.8-7.7) Lymphocytes # (Auto) 0.5 x10^3/uL (1.0-4.8) L Monocytes # (Auto) 0.5 x10^3/uL (0.0-1.1) Eosinophils # (Auto) 0.0 x10^3/uL (0.0-0.7) Basophils # (Auto) 0.0 x10^3/uL (0.0-0.2) Segmented Neutrophils % 79 % (35-66) H Band Neutrophils % 4 % (0-9) Lymphocytes % 7 % (24-48) L Atypical Lymphocytes % (Manual) 1 % (0-0) H Monocytes % 8 % (0-10) Basophils % 1 % (0-3) Platelet Estimate Adequate (ADEQUATE) Polychromasia Slight Macrocytosis Slight Ovalocytes Few Crenated Cell Present Acanthocytes (Spur Cells) Occ Schistocytes Occ Sodium Level 139 mmol/L (136-145) Potassium Level 6.0 mmol/L (3.5-5.1) H Chloride Level 103 mmol/L (98-107) Carbon Dioxide Level 24 mmol/L (21-32) Anion Gap 12 (6-14) Blood Urea Nitrogen 49 mg/dL (7-20) H Creatinine 8.5 mg/dL (0.6-1.0) H Estimated GFR (Cockcroft-Gault) 5.5 BUN/Creatinine Ratio 6 (6-20) Glucose Level 227 mg/dL (70-99) H Lactic Acid Level 2.1 mmol/L (0.4-2.0) H Calcium Level 8.2 mg/dL (8.5-10.1) L Magnesium Level 1.8 mg/dL (1.8-2.4) Total Bilirubin 0.4 mg/dL (0.2-1.0) Aspartate Amino Transferase (AST) 31 U/L (15-37) Alanine Aminotransferase (ALT) 22 U/L (14-59) Alkaline Phosphatase 88 U/L (46-116) Creatine Kinase 97 U/L (26-192) Creatine Kinase MB (Mass) 5.7 ng/mL (0.0-3.6) H Creatine Kinase MB Relative Index 5.9 % (0-4) H Troponin I Quantitative 0.084 ng/mL (0.000-0.055) 0.084 ng/mL (0.000-0.055) 0.081 ng/mL (0.000-0.055) XR-Ihi-I-Type Natriuretic Peptide > 20915 pg/mL (0-124) H Total Protein 6.2 g/dL (6.4-8.2) L Albumin 2.7 g/dL (3.4-5.0) L Albumin/Globulin Ratio 0.8 (1.0-1.7) L Glucose (Fingerstick) 113 mg/dL (70-99) H Test 11/05/18 12:20 Glucose (Fingerstick) 168 mg/dL (70-99) H Laboratory Tests 11/05/18 05:29 Laboratory Tests 11/05/18 05:29 ECHOCARDIOGRAM ECHOCARDIOGRAM <Conclusion> The left ventricular systolic function is low normal. EF 50% Septal motion consistent with conduction abnormality. There is a subtle flattened septum consistent with right ventricle pressure overload. Doppler and Color Flow revealed mild tricuspid regurgitation. There is severe pulmonary hypertension. The PA pressure was estimated at 74 mmHg. DATE: 06/12/18 1029 HEART CATH HEART CATH FINDINGS 1. Hemodynamics: Elevated left ventricle end-diastolic pressure of 22 mmHg. No pullback gradient across the aortic valve. 2. Left ventriculography: Posterobasal wall hypokinesis with ejection fraction estimated at 45%. No significant mitral regurgitation seen. 3. Coronary angiography: a. The left main coronary artery arose from the left sinus of Valsalva, gave rise to the left anterior descending and left circumflex arteries and did not show any significant stenosis. b. The left anterior descending artery showed 30% stenosis in the midsegment. c. The left circumflex artery did not show any significant stenosis. d. The right coronary artery was a large and dominant vessel arising from the right sinus of Valsalva that showed 30% in-stent restenosis involving the distal segment. Conclusion 1. Nonobstructive coronary artery disease with 30% in-stent restenosis involving the distal segment of the right coronary artery 2. Posterobasal wall hypokinesis with ejection fraction estimated at 45%. Recommendations Medical Therapy DATE: 06/11/18 1238 ASSESSMENT/PLAN ASSESSMENT/PLAN 1. Acute respiratory failure with a/c CHF and AE COPD; improved 2. Sinus bradycardia in the setting of hyperkalemia. Seen on HD, HR improved. 3. PAFIB 4. Acute on chronic diastolic CHF 5. Hypertension; controlled 6. ESRD on HD 7. CAD s/p PCI/stent to the RCA: clinically stable, CP free. 8. PENNY: intolerant to CPAP 9. Diabetes, II 10. Hyperlipidemia 11. PAD s/p PAINTER PLATE/stent to the left common iliac artery. No claudication symptoms 12. AAA s/p endovascular repair Recommendation Correction of lytes Fluid offloading via HD as per nephrology Resume metoprolol Hold Cardizem for now Resume Eliquis for stroke prophylaxis Discontinue ASA. Continue Plavix for secondary prevention Amiodarone for rhythm maintenance FRANK REED MD 11/05/18 1724: CARDIAC CONSULT ASSESSMENT/PLAN ASSESSMENT/PLAN Patient seen and examined. Agree with SMASH PIECER's assessment and plan. Acute respiratory failure secondary to combination of acute on chronic diastolic heart failure and acute COPD exacerbation. Symptoms improved since admission. Continue fluid removal with hemodialysis per nephrology team. Sinus bradycardia most probably secondary to electrolyte imbalance. Telemetry did not show any significant pauses suggestive of SSS CAD status clinically stable Agree with resuming eliquis, amiodarone and metoprolol, holding Cardizem and stopping aspirin. We will consider event monitor as an outpatient. Thank you for your consultation DARSHANA PEPE APRN Nov 05, 2018 13:13 FRANK REED MD Nov 05, 2018 17:24
--- NOTE | 2018-11-05 16:25 | NUR ---
SS following for discharge planning. SS reviewed pt chart. Pt is from home with spouse and is currently requiring oxygen. PT/OT ordered. SS will await PT/OT evaluations and recommendations and will proceed accordingly with discharge planning.
[2018-11-05] MEDS: METOPROLOL SUCC 24HR ER 100 MG TAB.ER.24H. PO SCH (18:31)
[2018-11-05] MEDS: AMIODARONE HCL 200 MG TABLET. PO SCH (18:31)
[2018-11-05] MEDS: FUROSEMIDE 40 MG TABLET. PO SCH (18:31)
[2018-11-05] MEDS: CLOPIDOGREL BISULFATE 75 MG TABLET PO SCH (18:31)
[2018-11-05] MEDS: APIXABAN 5 MG TABLET. PO SCH (19:42)
[2018-11-06 03:30] VITALS: BP 135/98
[2018-11-06 04:05] LABS: BASO % 0 % (0-3); EOS % 0 % (0-3); HEMATOCRIT 24.3 % (36.0-47.0); HEMOGLOBIN 7.9 g/dL (12.0-15.5); LYMPH # 0.4 x10^3/uL (1.0-4.8); LYMPH % 6 % (24-48); MEAN CORPUSCULAR HEMOGLOBIN 33 pg (25-35); MEAN CORPUSCULAR HGB CONC 33 g/dL (31-37); MEAN CORPUSCULAR VOLUME 101 fL (79-100); MONO # 0.8 x10^3/uL (0.0-1.1); MONO % 13 % (0-9); NEUT # 5.1 x10^3/uL (1.8-7.7); NEUT % 81 % (31-73); PLATELET COUNT 274 x10^3/uL (140-400); RED CELL DISTRIBUTION WIDTH 14.9 % (11.5-14.5); WHITE BLOOD COUNT 6.3 x10^3/uL (4.0-11.0)
[2018-11-06 04:38] LABS: CHOLESTEROL/HDL RATIO 1.8; CREATININE 4.4 mg/dL (0.6-1.0); GFR 11.9; POTASSIUM 4.7 mmol/L (3.5-5.1)
[2018-11-06 07:00] VITALS: BP 157/70
[2018-11-06] MEDS: INSULIN LISPRO 300 UNITS/3 ML INSULN.PEN. SQ SCH (08:00)
[2018-11-06] MEDS: CLOPIDOGREL BISULFATE 75 MG TABLET PO SCH (08:15)
[2018-11-06] MEDS: FUROSEMIDE 40 MG TABLET. PO SCH (08:15)
[2018-11-06] MEDS: APIXABAN 5 MG TABLET. PO SCH (08:15)
[2018-11-06] MEDS: AMIODARONE HCL 200 MG TABLET. PO SCH (08:15)
[2018-11-06] MEDS: METOPROLOL SUCC 24HR ER 100 MG TAB.ER.24H. PO SCH (08:16)
--- NOTE | 2018-11-06 09:44 | PDOC ---
[facility] [facility] PROGRESS NOTE Chief Complaint Chief Complaint Symptomatic bradycardia Shortness of breath Hyperkalemia HD COPD CAD CHF Hypertension Hyperlipidemia AV graft Cataract surgery History of Present Illness History of Present Illness 11/06/18 Pt seen and examined Potassium is trending down (4.7) Pt was sitting up, alert and attentive Vitals/I&O Vitals/I&O: Vital Signs Date Time Temp Pulse Resp B/P (MAP) Pulse Ox O2 Delivery O2 Flow Rate FiO2 11/06/18 08:16 62 157/70 11/06/18 08:00 Nasal Cannula 3.0 11/06/18 07:00 97.7 16 100 97.7 I & O 11/05/18 11/05/18 11/06/18 15:00 23:00 07:00 Intake Total 750 ml 800 ml 300 ml Balance 750 ml 800 ml 300 ml Physical Exam General: Alert, Oriented X3, No acute distress Heart: Regular rate, No murmurs Lungs: Clear Abdomen: Normal bowel sounds, Soft Extremities: No clubbing, Normal pulses Skin: No rashes, No significant lesion Labs Labs: Laboratory Tests Test 11/05/18 11:45 11/05/18 12:20 11/05/18 17:28 11/05/18 20:49 Troponin I Quantitative 0.081 ng/mL (0.000-0.055) Glucose (Fingerstick) 168 mg/dL (70-99) 287 mg/dL (70-99) 307 mg/dL (70-99) Test 11/06/18 03:45 11/06/18 07:32 White Blood Count 6.3 x10^3/uL (4.0-11.0) Red Blood Count 2.40 x10^6/uL (3.50-5.40) Hemoglobin 7.9 g/dL (12.0-15.5) Hematocrit 24.3 % (36.0-47.0) Mean Corpuscular Volume 101 fL (79-100) Mean Corpuscular Hemoglobin 33 pg (25-35) Mean Corpuscular Hemoglobin Concent 33 g/dL (31-37) Red Cell Distribution Width 14.9 % (11.5-14.5) Platelet Count 274 x10^3/uL (140-400) Neutrophils (%) (Auto) 81 % (31-73) Lymphocytes (%) (Auto) 6 % (24-48) Monocytes (%) (Auto) 13 % (0-9) Eosinophils (%) (Auto) 0 % (0-3) Basophils (%) (Auto) 0 % (0-3) Neutrophils # (Auto) 5.1 x10^3/uL (1.8-7.7) Lymphocytes # (Auto) 0.4 x10^3/uL (1.0-4.8) Monocytes # (Auto) 0.8 x10^3/uL (0.0-1.1) Eosinophils # (Auto) 0.0 x10^3/uL (0.0-0.7) Basophils # (Auto) 0.0 x10^3/uL (0.0-0.2) Sodium Level 140 mmol/L (136-145) Potassium Level 4.7 mmol/L (3.5-5.1) Chloride Level 102 mmol/L (98-107) Carbon Dioxide Level 31 mmol/L (21-32) Anion Gap 7 (6-14) Blood Urea Nitrogen 32 mg/dL (7-20) Creatinine 4.4 mg/dL (0.6-1.0) Estimated GFR (Cockcroft-Gault) 11.9 Glucose Level 190 mg/dL (70-99) Calcium Level 8.0 mg/dL (8.5-10.1) Triglycerides Level 50 mg/dL (0-150) Cholesterol Level 118 mg/dL (0-200) LDL Cholesterol, Calculated 41 mg/dL (0-100) VLDL Cholesterol, Calculated 10 mg/dL (0-40) Non-HDL Cholesterol Calculated 51 mg/dL (0-129) HDL Cholesterol 67 mg/dL (40-60) Cholesterol/HDL Ratio 1.8 Glucose (Fingerstick) 146 mg/dL (70-99) Review of Systems Review of Systems: Denies Berkowitz Denies N/V/D Assessment and Plan Assessmemt and Plan Problems Medical Problems: (1) Acute on chronic diastolic congestive heart failure Status: Acute (2) Acute respiratory failure Status: Acute (3) CAD (coronary artery disease) Status: Chronic (4) COPD exacerbation Status: Acute (5) DM2 (diabetes mellitus, type 2) Status: Chronic (6) Elevated troponin Status: Acute (7) ESRD (end stage renal disease) on dialysis Status: Chronic (8) HLD (hyperlipidemia) Status: Chronic (9) HTN (hypertension) Status: Chronic (10) Hyperkalemia Status: Acute (11) PENNY (obstructive sleep apnea) Status: Chronic (12) Symptomatic bradycardia Status: Acute 11/06/18 Assessment Symptomatic bradycardia Shortness of breath Hyperkalemia HD COPD CAD CHF Hypertension Hyperlipidemia AV graft Cataract surgery Plan Cardiac monitoring Dialysis Home meds PTOT Hope to discharge this afternoon if okay with consultants Comment Review of Relevant I have reviewed the following items mykel (where applicable) has been applied. Medications: Current Medications Medications (Trade) Dose Ordered Sig/Eric Route PRN Reason Start Time Stop Time Status Last Admin Dose Admin Amiodarone HCl (Cordarone) 200 mg DAILY PO 11/05/18 17:30 11/06/18 08:15 Apixaban (Eliquis) 5 mg BID PO 11/05/18 21:00 11/06/18 08:15 Clopidogrel Bisulfate (Plavix) 75 mg DAILY PO 11/05/18 17:30 11/06/18 08:15 Furosemide (Lasix) 40 mg DAILY PO 11/05/18 17:30 11/06/18 08:15 Metoprolol Succinate (Toprol Xl) 100 mg DAILY PO 11/05/18 17:30 11/06/18 08:16 YULIA DE ANDA III DO Nov 06, 2018 09:44
[2018-11-06 11:00] VITALS: BP 147/60
--- NOTE | 2018-11-06 11:33 | PDOC ---
SUBJECTIVE ROS Stable, No new concerns OBJECTIVE Vital Signs Vital Signs Date Time Temp Pulse Resp B/P (MAP) Pulse Ox O2 Delivery O2 Flow Rate FiO2 11/06/18 11:00 97.7 147/ 97.7 11/06/18 11:00 59 16 98 Nasal Cannula 3.0 I & 0 Intake and Output 11/06/18 06:59 Intake Total 1850 ml Balance 1850 ml Intake Oral 1850 ml PHYSICAL EXAM Physical Exam GEN: NAD HEEN:OM moist NECK: Supple CVS: S1S2 RESP: CTA, No Acc. Muscle Use GI: BS + ve, Non Tender : No CVA tenderness, No Suprapubic Tenderness, No Guerrier NEURO: Grossly normal SKIN No rash DIAGNOSIS/ASSESSMENT Assessment & Plan ESRD- On HD MWF Currently No Indication for HD today Hyperkalemia- K Normal today COPD - stable Bradycardia - resolved, cardiology following Anemia- Hgb decreased from 10/19(12.4-->9-->7.9 today GI bleed in june 2018, post EGD defer to Primary COMMENT/RELEVANT DATA Meds Current Medications Medications (Trade) Dose Ordered Sig/Eric Start Time Stop Time Status Last Admin Dose Admin Albumin Human 200 ml @ 200 mls/hr 1X PRN PRN 11/05/18 10:15 11/05/18 16:14 DC Albuterol Sulfate (Ventolin Neb Soln) 20 mg 1X ONCE 11/05/18 06:30 11/05/18 06:31 DC 11/05/18 06:33 20 MG Albuterol/ Ipratropium (Duoneb) 3 ml 1X ONCE 11/05/18 05:15 11/05/18 05:16 DC 11/05/18 05:34 3 ML Amiodarone HCl (Cordarone) 200 mg DAILY 11/05/18 17:30 11/06/18 08:15 200 MG Apixaban (Eliquis) 5 mg BID 11/05/18 21:00 11/06/18 08:15 5 MG Aspirin (Hung Aspirin) 325 mg 1X ONCE 11/05/18 05:15 11/05/18 05:16 DC 11/05/18 05:27 325 MG Atropine Sulfate (ATROPINE 1mg SYRINGE) 1 mg 1X ONCE 11/05/18 05:15 11/05/18 05:16 DC 11/05/18 05:47 1 MG Calcium Gluconate (Calcium Gluconate) 1,000 mg 1X ONCE 11/05/18 06:30 11/05/18 06:31 DC 11/05/18 06:26 1,000 MG Clopidogrel Bisulfate (Plavix) 75 mg DAILY 11/05/18 17:30 11/06/18 08:15 75 MG Dexamethasone Sodium Phosphate (Decadron) 10 mg 1X ONCE 11/05/18 05:15 11/05/18 05:16 DC 11/05/18 05:34 10 MG Dextrose (Dextrose 50%-Water Syringe) 12.5 gm PRN Q15MIN PRN 11/05/18 06:00 11/05/18 06:26 12.5 GM Furosemide (Lasix) 40 mg DAILY 11/05/18 17:30 11/06/18 08:15 40 MG Info (PHARMACY MONITORING -- do not chart) 1 each PRN DAILY PRN 11/05/18 10:15 11/05/18 13:33 DC Insulin Human Lispro (HumaLOG) 0-5 UNITS TIDWMEALS 11/05/18 08:00 11/05/18 18:41 4 UNITS Insulin Human Regular (HumuLIN R VIAL) 10 unit 1X ONCE 11/05/18 06:30 11/05/18 06:31 DC 11/05/18 06:25 10 UNIT Metoprolol Succinate (Toprol Xl) 100 mg DAILY 11/05/18 17:30 11/06/18 08:16 100 MG Ondansetron HCl (Zofran) 4 mg PRN Q8HRS PRN 11/05/18 06:00 11/06/18 05:59 DC Sodium Bicarbonate (Sodium Bicarb Adult 8.4% Syr) 50 meq 1X ONCE 11/05/18 06:30 11/05/18 06:31 DC 11/05/18 06:25 50 MEQ Sodium Chloride 1,000 ml @ 400 mls/hr Q2H30M PRN 11/05/18 10:06 11/05/18 22:05 DC Lab Laboratory Tests Test 11/05/18 11:45 11/05/18 12:20 11/05/18 17:28 11/05/18 20:49 Troponin I Quantitative 0.081 ng/mL (0.000-0.055) Glucose (Fingerstick) 168 mg/dL (70-99) 287 mg/dL (70-99) 307 mg/dL (70-99) Test 11/06/18 03:45 11/06/18 07:32 White Blood Count 6.3 x10^3/uL (4.0-11.0) Red Blood Count 2.40 x10^6/uL (3.50-5.40) Hemoglobin 7.9 g/dL (12.0-15.5) Hematocrit 24.3 % (36.0-47.0) Mean Corpuscular Volume 101 fL (79-100) Mean Corpuscular Hemoglobin 33 pg (25-35) Mean Corpuscular Hemoglobin Concent 33 g/dL (31-37) Red Cell Distribution Width 14.9 % (11.5-14.5) Platelet Count 274 x10^3/uL (140-400) Neutrophils (%) (Auto) 81 % (31-73) Lymphocytes (%) (Auto) 6 % (24-48) Monocytes (%) (Auto) 13 % (0-9) Eosinophils (%) (Auto) 0 % (0-3) Basophils (%) (Auto) 0 % (0-3) Neutrophils # (Auto) 5.1 x10^3/uL (1.8-7.7) Lymphocytes # (Auto) 0.4 x10^3/uL (1.0-4.8) Monocytes # (Auto) 0.8 x10^3/uL (0.0-1.1) Eosinophils # (Auto) 0.0 x10^3/uL (0.0-0.7) Basophils # (Auto) 0.0 x10^3/uL (0.0-0.2) Sodium Level 140 mmol/L (136-145) Potassium Level 4.7 mmol/L (3.5-5.1) Chloride Level 102 mmol/L (98-107) Carbon Dioxide Level 31 mmol/L (21-32) Anion Gap 7 (6-14) Blood Urea Nitrogen 32 mg/dL (7-20) Creatinine 4.4 mg/dL (0.6-1.0) Estimated GFR (Cockcroft-Gault) 11.9 Glucose Level 190 mg/dL (70-99) Calcium Level 8.0 mg/dL (8.5-10.1) Triglycerides Level 50 mg/dL (0-150) Cholesterol Level 118 mg/dL (0-200) LDL Cholesterol, Calculated 41 mg/dL (0-100) VLDL Cholesterol, Calculated 10 mg/dL (0-40) Non-HDL Cholesterol Calculated 51 mg/dL (0-129) HDL Cholesterol 67 mg/dL (40-60) Cholesterol/HDL Ratio 1.8 Glucose (Fingerstick) 146 mg/dL (70-99) Results All relevant outside records, renal labs, imaging studies, telemetry/EKG's were reviewed. DESIREE MELARA MD Nov 06, 2018 11:33
--- NOTE | 2018-11-06 12:30 | NUR ---
Patient is discharged to home. Instructions given and verbalized understanding. PIV and heart monitor removed. Escorted patient to front entrance per wheel chair into a private vehicle.
--- NOTE | 2018-11-07 13:33 | DS ---
DATE OF DISCHARGE: 11/06/2018 ADMISSION DIAGNOSIS: Symptomatic bradycardia. DISCHARGE DIAGNOSES: Resolving bradycardia; end-stage renal disease, on dialysis. HOSPITAL COURSE: The patient is a pleasant 72-year-old female, who presented with symptomatic bradycardia. She is also on dialysis. We admitted her. We consulted Cardiology, did serial enzymes, serial EKGs. We did cardiac monitoring, her home meds, PT, OT, and over the next couple of days, she returns to baseline. We discharged to home with close outpatient followup. DISPOSITION: Home. ACTIVITY: As tolerated. DIET: Low sodium. MEDICATIONS: Please see the MRAD. TOTAL TIME: 31 minutes. YULIA DE ANDA DO DR: MAGO/courtney JOB#: [id number] / [id number]
== END 2018-11-06 12:35 | disposition home or self-care (01) ==
LOC: ER 04:57 → INTOOBSV 05:50 → 1 WEST ICU 05:50 → 2 SOUTH 17:05
PROVIDERS: ADMIT Internal Medicine; ATTEND Internal Medicine
DX: R00.1 Bradycardia, unspecified (principal); I25.10 Atherosclerotic heart disease of native coronary artery without angina pectoris; E78.00 Pure hypercholesterolemia, unspecified; E78.5 Hyperlipidemia, unspecified; E87.5 Hyperkalemia; E66.9 Obesity, unspecified; G47.33 Obstructive sleep apnea (adult) (pediatric); E11.51 Type 2 diabetes mellitus with diabetic peripheral angiopathy without gangrene; E11.22 Type 2 diabetes mellitus with diabetic chronic kidney disease; I48.91 Unspecified atrial fibrillation; I50.43 Acute on chronic combined systolic (congestive) and diastolic (congestive) heart failure; J96.00 Acute respiratory failure, unspecified whether with hypoxia or hypercapnia; I27.20 Pulmonary hypertension, unspecified; K21.9 Gastro-esophageal reflux disease without esophagitis; I13.2 Hypertensive heart and chronic kidney disease with heart failure and with stage 5 chronic kidney disease, or end stage renal disease; Z82.49 Family history of ischemic heart disease and other diseases of the circulatory system; Z83.3 Family history of diabetes mellitus; Z86.79 Personal history of other diseases of the circulatory system; Z87.891 Personal history of nicotine dependence; Z98.62 Peripheral vascular angioplasty status; Z99.2 Dependence on renal dialysis; N18.6 End stage renal disease; J44.1 Chronic obstructive pulmonary disease with (acute) exacerbation; R79.89 Other specified abnormal findings of blood chemistry
CPT/HCPCS: 36415; 71045; 80048; 80053; 80061; 82553; 82962; 83605; 83735; 83880; 84484; 85007; 85025; 87641; 93005; 94640; 94644; 96374; 96375; 99284; G0378; J0461; J0610; J1100; J1815; J7042; J7613; J7620; G0379; 99285-25

== ENCOUNTER 2019-01-09 05:52 | Inpatient (IN) | payer MEDICARE ==
[2019-01-09] VITALS (17 sets, daily range): BP systolic 80–148; BP diastolic 47–77
[~2019-01-09] VITALS: Ht 156.2 cm; Wt 62.6 kg
[~2019-01-09 05:52] MED LIST changes: +ASPI-630 PO; +CLOP75TA PO; +OMEP40CA45 PO; -OMEP40CA5 PO
[2019-01-09 06:29] LABS: BASO % 1 % (0-3); EOS # 0.1 x10^3/uL (0.0-0.7); EOS % 1 % (0-3); HEMATOCRIT 37.6 % (36.0-47.0); HEMOGLOBIN 11.7 g/dL (12.0-15.5); LYMPH # 0.5 x10^3/uL (1.0-4.8); LYMPH % 13 % (24-48); MEAN CORPUSCULAR HEMOGLOBIN 33 pg (25-35); MEAN CORPUSCULAR HGB CONC 31 g/dL (31-37); MEAN CORPUSCULAR VOLUME 105 fL (79-100); MONO # 0.4 x10^3/uL (0.0-1.1); MONO % 10 % (0-9); NEUT # 3.2 x10^3/uL (1.8-7.7); NEUT % 75 % (31-73); PLATELET COUNT 265 x10^3/uL (140-400); RED BLOOD COUNT 3.59 x10^6/uL (3.50-5.40); RED CELL DISTRIBUTION WIDTH 15.5 % (11.5-14.5); WHITE BLOOD COUNT 4.2 x10^3/uL (4.0-11.0)
[2019-01-09 06:36] LABS: ALBUMIN 2.8 g/dL (3.4-5.0); ALBUMIN/GLOBULIN RATIO 0.9 (1.0-1.7); CALCIUM 8.5 mg/dL (8.5-10.1); CREATININE 8.4 mg/dL (0.6-1.0); GFR 5.6; TOTAL BILIRUBIN 0.3 mg/dL (0.2-1.0); TOTAL PROTEIN 5.8 g/dL (6.4-8.2)
[2019-01-09 06:44] LABS: POTASSIUM 6.4 mmol/L (3.5-5.1)
[2019-01-09] MEDS ORDERED: CALCIUM GLUCONATE 1,000 MG/10 ML VIAL. IVP ONE (07:00)
--- NOTE | 2019-01-09 07:03 | EKG ---
[facility] [address] [place] [address] Test Date: 2019-01-09 Test Time: 05:57:11 Pat Name: WANDA PRABHAKAR Department: Room: Gender: F [employer] Mounter: : [id number] Requested By: MONA THOMAS Order Number: [id number] Reading MD: Lavon Miranda Measurements Intervals Reading Rate: 37 P: -163 MD: 170 QRS: -61 QRSD: 150 T: 66 QT: 566 QTc: 449 Interpretive Statements SINUS BRADYCARDIA WITH HEART BLOCK Electronically Signed On 01-18-2019 15:39:02 CDT by Lavon Miranda
--- NOTE | 2019-01-09 07:27 | PHYS DOC ---
Past Medical History Past Medical History: CAD, CHF, COPD, Diabetes-Type II, DVT, High Cholesterol, Hypertension, NC, Renal Disease, Renal Failure, Other Additional Past Medical Histor: dialysis MWF, O2 3LNC @ home, CPAP Past Surgical History: Angioplasty, Other Additional Past Surgical Histo: cardiac cath with stent placement, rotator cuff surgery,AV graft, cataract, Alcohol Use: None Drug Use: None Adult General Chief Complaint Chief Complaint: DIZZY/LIGHT HEADED HPI HPI Patient is a 73 year old multiple medical problems presenting with chief complaint of lightheadedness onset, last night felt sweaty no chest pain minimal sob admitted earlier this month for esssentially what sounds like tachybrady phenomenon on metop and keyla has life vest and holter, due for appt with seun peters next week to discuss pacer no fever dialsysi mwf, didn't miss the appointment. Review of Systems Review of Systems Constitutional: Denies fever or chills [] Eyes: Denies change in visual acuity, redness, or eye pain [] All other systems were reviewed and found to be within normal limits, except as documented in this note. Current Medications Current Medications Current Medications Medications (Trade) Dose Ordered Sig/Eric Start Time Stop Time Status Last Admin Dose Admin Albuterol Sulfate (Ventolin Neb Soln) 10 mg 1X ONCE 01/09/19 07:30 01/09/19 07:31 Calcium Gluconate (Calcium Gluconate) 1,000 mg 1X ONCE 01/09/19 07:00 01/09/19 07:01 DC 01/09/19 07:09 1,000 MG Sodium Bicarbonate (Sodium Bicarb Adult 8.4% Syr) 50 meq 1X ONCE 01/09/19 07:30 01/09/19 07:31 01/09/19 07:09 50 MEQ Allergies Allergies Allergies Coded Allergies Type Severity Reaction Last Updated Verified Iodinated Contrast Media Allergy Intermediate 11/06/17 Yes Physical Exam Physical Exam Constitutional: Well developed, well nourished, no acute distress, non-toxic appearance. [] HENT: Normocephalic, atraumatic, bilateral external ears normal, oropharynx moist, no oral exudates, nose normal. [] Eyes: PERRLA Neck: Normal range of motion, no tenderness, supple, no stridor. [] Cardiovascular:bradycardia no definite murmur. Lungs & Thorax: Bilateral breath sounds clear to auscultation [] except decreased left base. Abdomen: Bowel sounds normal, soft, no tenderness, no masses, no pulsatile masses. [] Skin: Warm, dry, no erythema, no rash. [] Back: No tenderness, no CVA tenderness. [] Extremities: No tenderness, no cyanosis, no clubbing, ROM intact, one plus edema. [] Neurologic: Alert and oriented X 3, normal motor function, normal sensory function, no focal deficits noted. [] Current Patient Data Vital Signs Vital Signs Date Time Temp Pulse Resp B/P (MAP) Pulse Ox O2 Delivery O2 Flow Rate FiO2 01/09/19 06:41 37 100 01/09/19 05:52 97.8 17 114/56 (75) Nasal Cannula 3.0 97.8 Lab Values Laboratory Tests Test 01/09/19 06:10 White Blood Count 4.2 x10^3/uL (4.0-11.0) Red Blood Count 3.59 x10^6/uL (3.50-5.40) Hemoglobin 11.7 g/dL (12.0-15.5) L Hematocrit 37.6 % (36.0-47.0) Mean Corpuscular Volume 105 fL (79-100) H Mean Corpuscular Hemoglobin 33 pg (25-35) Mean Corpuscular Hemoglobin Concent 31 g/dL (31-37) Red Cell Distribution Width 15.5 % (11.5-14.5) H Platelet Count 265 x10^3/uL (140-400) Neutrophils (%) (Auto) 75 % (31-73) H Lymphocytes (%) (Auto) 13 % (24-48) L Monocytes (%) (Auto) 10 % (0-9) H Eosinophils (%) (Auto) 1 % (0-3) Basophils (%) (Auto) 1 % (0-3) Neutrophils # (Auto) 3.2 x10^3/uL (1.8-7.7) Lymphocytes # (Auto) 0.5 x10^3/uL (1.0-4.8) L Monocytes # (Auto) 0.4 x10^3/uL (0.0-1.1) Eosinophils # (Auto) 0.1 x10^3/uL (0.0-0.7) Basophils # (Auto) 0.0 x10^3/uL (0.0-0.2) Sodium Level 144 mmol/L (136-145) Potassium Level 6.4 mmol/L (3.5-5.1) *H Chloride Level 111 mmol/L (98-107) H Carbon Dioxide Level 24 mmol/L (21-32) Anion Gap 9 (6-14) Blood Urea Nitrogen 45 mg/dL (7-20) H Creatinine 8.4 mg/dL (0.6-1.0) H Estimated GFR (Cockcroft-Gault) 5.6 BUN/Creatinine Ratio 5 (6-20) L Glucose Level 156 mg/dL (70-99) H Calcium Level 8.5 mg/dL (8.5-10.1) Total Bilirubin 0.3 mg/dL (0.2-1.0) Aspartate Amino Transferase (AST) 24 U/L (15-37) Alanine Aminotransferase (ALT) 16 U/L (14-59) Alkaline Phosphatase 83 U/L (46-116) Troponin I Quantitative 0.017 ng/mL (0.000-0.055) Total Protein 5.8 g/dL (6.4-8.2) L Albumin 2.8 g/dL (3.4-5.0) L Albumin/Globulin Ratio 0.9 (1.0-1.7) L Laboratory Tests 01/09/19 06:10 Laboratory Tests 01/09/19 06:10 EKG EKG []sinus bradycardia rate 37 poor baseline, no definite heart block identified. Radiology/Procedures Radiology/Procedures [] Impressions: cardiomegaly no definite pna, left basilar opacity could be atelectasis, final read pending Course & Med Decision Making Course & Med Decision Making Pertinent Labs and Imaging studies reviewed. (See chart for details) []pot 6.4 cr elev trop neg hyperkalemia, due for dialysis today, probably not the sole cause but pt does have symptomatic bradycardia, due for pacer with cardiolgoy per patient report. 73 yo mmp including chf htn cad esrd hd mwf p/w symptomatic bradycardia r/o mi in er hyperk could be contributing , after ca gluc hr improved from 38 to 45 at 725 am, bp remained stable in the er. gave albuterol and bicarb as well d/w riffel plan to cosnult with cards and nephrology as well. Critical care time was 35 minutes exclusive of procedures. Dragon Disclaimer Dragon Disclaimer This electronic medical record was generated, in whole or in part, using a voice recognition dictation system. Departure Departure Impression: Primary Impression: Symptomatic bradycardia Disposition: ADMITTED INPATIENT Admitting Physician: GIAN Condition: GUARDED Referrals: BERTO TORRES MD (PCP) HODAN BERRIOS MD Jan 09, 2019 07:27
[2019-01-09] MEDS ORDERED: ONDANSETRON PF 4 MG/2 ML VIAL. IV ONE (07:30)
[2019-01-09] MEDS ORDERED: ALBUTEROL SULFATE 2.5 MG/3 ML NEBU. CONT NEB ONE (07:30)
[2019-01-09] MEDS ORDERED: SODIUM BICARB ADULT 8.4% 50 MEQ/50 ML DISP.SYRIN. IV ONE (07:30)
--- NOTE | 2019-01-09 07:45 | RAD ---
CHEST AP ONLY Clinical Indication: Dizziness, bradycardia Comparison: 12/02/2018 Portable Chest X-ray Exam. Findings: Portable upright frontal view of the chest was obtained. Cardiomegaly noted. Opacification of the left mediastinal shadow is again evident. Assessment of the left lung base is limited due to underpenetrated technique and overlying soft tissues. Nodular density overlying the right lower lung field is probably related to nipple shadow and not seen on the prior exam due to differences in positioning. No right lung infiltrate in the interval. There is no pneumothorax. No pleural effusion is appreciated. No acute bone abnormality. IMPRESSION: Cardiomegaly. No new infiltrate. No significant change in aeration of the left lower lung field. Consider further evaluation with lateral view for more complete evaluation of the lung bases. Electronically signed by: Cali Valenzuela MD (01/09/2019 7:42 AM) [facility]
--- NOTE | 2019-01-09 08:17 | PDOC1 ---
History and Physical Date of Admission Date of Admission DATE: 01/09/19 TIME: 08:15 History of Present Illness History of Present Illness Ms Banks is a 73yo F w/ PMHx CAD, CHF, HTN, HLD, Pulmonary HTN, Asthma/COPD, PENNY (returned her CPAP), GERD, Anemia, DVT, ESRD on HD, DM2 who presents to ED c/o lightheadedness. This started last night with associated minimal sob, nausea and diaphoresis. No Chest pain. No recent sick contacts. No fevers. Seen for tachybrady previously and is on metoprolol and amiodarone per cardiology as well as a life vest and holter monitor and was already in discussion about consideration of pacemaker with Dr. Davis. Found with HR of 37 and potassium of 6.4. Due for dialysis today. No missed dialysis sessions and compliant with her medications EKG shows sinus bradycardia rate 37 poor baseline, no definite heart block identified. Past Medical History Cardiovascular: AFIB, CAD, CHF, HTN, Hyperlipidemia, Other Pulmonary: Asthma, COPD, Other CENTRAL NERVOUS SYSTEM: Other GI: Diverticulosis Heme/Onc: Anemia NOS Psych: Anxiety Rheumatologic: No pertinent hx Infectious disease: No pertinent hx Renal/: Chronic renal failure Endocrine: Diabetes, Hyperparathyroidism Past Surgical History Past Surgical History: Appendectomy, Arthroscopy, Cataract Removal, Other Family History Family History: Coronary Artery Disease, Diabetes, Hypertension Social History Smoke: No ALCOHOL: none Drugs: None Current Problem List Problem List Problems Medical Problems: (1) Symptomatic bradycardia Status: Acute Current Medications Current Medications Current Medications Calcium Gluconate (Calcium Gluconate) 1,000 mg 1X ONCE IVP Last administered on 01/09/19at 07:09; Start 01/09/19 at 07:00; Stop 01/09/19 at 07:01; Status DC Sodium Bicarbonate (Sodium Bicarb Adult 8.4% Syr) 50 meq 1X ONCE IV Last administered on 01/09/19at 07:09; Start 01/09/19 at 07:30; Stop 01/09/19 at 07:31; Status DC Albuterol Sulfate (Ventolin Neb Soln) 10 mg 1X ONCE CONT NEB Last administered on 01/09/19at 07:26; Start 01/09/19 at 07:30; Stop 01/09/19 at 07:31; Status DC Ondansetron HCl (Zofran) 4 mg 1X ONCE IV Last administered on 01/09/19at 07:28; Start 01/09/19 at 07:30; Stop 01/09/19 at 07:31; Status DC Active Scripts Active Amiodarone Hcl 200 Mg Tablet 200 Mg PO DAILY 30 Days Eliquis (Apixaban) 5 Mg Tablet 5 Mg PO BID MDD ` Reported Aspirin 81 Mg Tab.chew 1 Tab PO DAILY Lipitor (Atorvastatin Calcium) 40 Mg Tablet 40 Mg PO HS Furosemide 40 Mg Tablet 40 Mg PO DAILY Symbicort 160-4.5 Mcg Inhaler (Budesonide/Formoterol Fumarate) 10.2 Gm Hfa.aer.ad 2 Puff IH BID Toprol Xl (Metoprolol Succinate) 100 Mg Tab.er.24h 100 Mg PO DAILY Proair Hfa Inhaler (Albuterol Sulfate) 8.5 Gm Hfa.aer.ad 1 Puff INH PRN Q6HRS PRN Marina-Jayme Tablet (Folic Acid/Vitamin B Comp W-C) 0.8 Mg Tablet 0.8 Mg PO DAILY Hydroxyzine Hcl 25 Mg Tablet 50 Mg PO QMWF Allergies Allergies: Coded Allergies: Iodinated Contrast Media (Verified Allergy, Intermediate, 11/06/17) ROS General: YES: Chills, Fatigue, Malaise, Appetite; No: Night Sweats, Other PSYCHOLOGICAL ROS: No: Anxiety, Behavioral Disorder, Concentration difficultie, Decreased libido, Depression, Disorientation, Hallucinations, Hostility, Irritablity, Memory difficulties, Mood Swings, Obsessive thoughts, Physical abuse, Sexual abuse, Sleep disturbances, Suicidal ideation, Other Eyes: No Blurry vision, No Decreased vision, No Double vision, No Dry eyes, No Excessive tearing, No Eye Pain, No Itchy Eyes, No Loss of vision, No Photophobia, No Scotomata, No Uses contacts, No Uses glasses, No Other HEENT: No: Heacaches, Visual Changes, Hearing change, Nasal congestion, Nasal discharge, Oral lesions, Sinus pain, Sore Throat, Epistaxis, Sneezing, Snoring, Tinnitus, Vertigo, Vocal changes, Other ALLERGY AND IMMUNOLOGY: No: Hives, Insect Bite Sensitivity, Itchy/Watery Eyes, Nasal Congestion, Post Nasal Drip, Seasonal Allergies, Other Hematological and Lymphatic: No: Bleeding Problems, Blood Clots, Blood Transfusions, Brusing, Night Sweats, Pallor, Swollen Lymph Nodes, Other ENDOCRINE: No: Breast Changes, Galactorrhea, Hair Pattern Changes, Hot Flashes, Malaise/lethargy, Mood Swings, Palpitations, Polydipsia/polyuria, Skin Changes, Temperature Intolerance, Unexpected Weight Changes, Other Breast: No New/Changing Breast Lumps, No Nipple changes, No Nipple discharge, No Other Respiratory: YES: Shortness of breath; No: Cough, Hemoptysis, Orthopnea, Pleuritic Pain, SOB with excertion, Sputum Changes, Stridor, Tachypnea, Wheezing, Other Cardiovascular: yes Palpitations; No Chest Pain, No Orthopnea, No Paroxysmal Noc. Dyspnea, No Edema, No Lt Headedness, No Other Gastrointestinal: Yes Nausea; No Vomiting, No Abdominal Pain, No Diarrhea, No Constipation, No Melena, No Hematochezia, No Other Genitourinary: No Dysuria, No Frequency, No Incontinence, No Hematuria, No Retention, No Discharge, No Urgency, No Pain, No Flank Pain, No Other, No , No , No , No , No , No , No Musculoskeletal: Yes Muscular Weakness; No Gait Disturbance, No Joint Pain, No Joint Stiffness, No Joint Swelling, No Muscle Pain, No Pain In:, No Swelling In:, No Other Neurological: Yes Dizziness, Yes Gait Disturbance; No Behavorial Changes, No Bowel/Bladder ControlChng, No Confusion, No Headaches, No Impaired Coord/balance, No Memory Loss, No Numbness/Tingling, No Seizures, No Speech Problems, No Tremors, No Visual Changes, No Weakness, No Other Skin: No Dry Skin, No Eczema, No Hair Changes, No Lumps, No Mole Changes, No Mottling, No Nail Changes, No Pruritus, No Rash, No Skin Lesion Changes, No Other, No Acne Physical Exam General: Alert, Oriented X3, Cooperative, No acute distress HEENT: Atraumatic, PERRLA, EOMI, Mucous membr. moist/pink Lungs: Other (Scattered wheezing) Heart: no gallops, no murmurs, other (Bradycardic) Abdomen: Normal bowel sounds, Soft, No tenderness, No hepatosplenomegaly, No masses Extremities: No clubbing, No cyanosis, No edema, Normal pulses, No tenderness/swelling Skin: No rashes, No breakdown, No significant lesion, Other (LUE AV fistula with bruit) Neuro: Normal gait, Normal speech, Strength at 5/5 X4 ext, Normal tone, Sensation intact, Cranial nerves 3-12 NL, Reflexes 2+ Psych/Mental Status: Mental status NL, Mood NL Vitals Vitals Vital Signs Date Time Temp Pulse Resp B/P (MAP) Pulse Ox O2 Delivery O2 Flow Rate FiO2 01/09/19 07:26 100 Nasal Cannula 3.0 01/09/19 06:41 37 01/09/19 05:52 97.8 17 114/56 (75) 97.8 Labs Labs Laboratory Tests Test 01/09/19 06:10 White Blood Count 4.2 x10^3/uL (4.0-11.0) Red Blood Count 3.59 x10^6/uL (3.50-5.40) Hemoglobin 11.7 g/dL (12.0-15.5) Hematocrit 37.6 % (36.0-47.0) Mean Corpuscular Volume 105 fL (79-100) Mean Corpuscular Hemoglobin 33 pg (25-35) Mean Corpuscular Hemoglobin Concent 31 g/dL (31-37) Red Cell Distribution Width 15.5 % (11.5-14.5) Platelet Count 265 x10^3/uL (140-400) Neutrophils (%) (Auto) 75 % (31-73) Lymphocytes (%) (Auto) 13 % (24-48) Monocytes (%) (Auto) 10 % (0-9) Eosinophils (%) (Auto) 1 % (0-3) Basophils (%) (Auto) 1 % (0-3) Neutrophils # (Auto) 3.2 x10^3/uL (1.8-7.7) Lymphocytes # (Auto) 0.5 x10^3/uL (1.0-4.8) Monocytes # (Auto) 0.4 x10^3/uL (0.0-1.1) Eosinophils # (Auto) 0.1 x10^3/uL (0.0-0.7) Basophils # (Auto) 0.0 x10^3/uL (0.0-0.2) Sodium Level 144 mmol/L (136-145) Potassium Level 6.4 mmol/L (3.5-5.1) Chloride Level 111 mmol/L (98-107) Carbon Dioxide Level 24 mmol/L (21-32) Anion Gap 9 (6-14) Blood Urea Nitrogen 45 mg/dL (7-20) Creatinine 8.4 mg/dL (0.6-1.0) Estimated GFR (Cockcroft-Gault) 5.6 BUN/Creatinine Ratio 5 (6-20) Glucose Level 156 mg/dL (70-99) Calcium Level 8.5 mg/dL (8.5-10.1) Total Bilirubin 0.3 mg/dL (0.2-1.0) Aspartate Amino Transf (AST/SGOT) 24 U/L (15-37) Alanine Aminotransferase (ALT/SGPT) 16 U/L (14-59) Alkaline Phosphatase 83 U/L (46-116) Troponin I Quantitative 0.017 ng/mL (0.000-0.055) Total Protein 5.8 g/dL (6.4-8.2) Albumin 2.8 g/dL (3.4-5.0) Albumin/Globulin Ratio 0.9 (1.0-1.7) Laboratory Tests Test 01/09/19 06:10 White Blood Count 4.2 x10^3/uL (4.0-11.0) Red Blood Count 3.59 x10^6/uL (3.50-5.40) Hemoglobin 11.7 g/dL (12.0-15.5) Hematocrit 37.6 % (36.0-47.0) Mean Corpuscular Volume 105 fL (79-100) Mean Corpuscular Hemoglobin 33 pg (25-35) Mean Corpuscular Hemoglobin Concent 31 g/dL (31-37) Red Cell Distribution Width 15.5 % (11.5-14.5) Platelet Count 265 x10^3/uL (140-400) Neutrophils (%) (Auto) 75 % (31-73) Lymphocytes (%) (Auto) 13 % (24-48) Monocytes (%) (Auto) 10 % (0-9) Eosinophils (%) (Auto) 1 % (0-3) Basophils (%) (Auto) 1 % (0-3) Neutrophils # (Auto) 3.2 x10^3/uL (1.8-7.7) Lymphocytes # (Auto) 0.5 x10^3/uL (1.0-4.8) Monocytes # (Auto) 0.4 x10^3/uL (0.0-1.1) Eosinophils # (Auto) 0.1 x10^3/uL (0.0-0.7) Basophils # (Auto) 0.0 x10^3/uL (0.0-0.2) Sodium Level 144 mmol/L (136-145) Potassium Level 6.4 mmol/L (3.5-5.1) Chloride Level 111 mmol/L (98-107) Carbon Dioxide Level 24 mmol/L (21-32) Anion Gap 9 (6-14) Blood Urea Nitrogen 45 mg/dL (7-20) Creatinine 8.4 mg/dL (0.6-1.0) Estimated GFR (Cockcroft-Gault) 5.6 BUN/Creatinine Ratio 5 (6-20) Glucose Level 156 mg/dL (70-99) Calcium Level 8.5 mg/dL (8.5-10.1) Total Bilirubin 0.3 mg/dL (0.2-1.0) Aspartate Amino Transf (AST/SGOT) 24 U/L (15-37) Alanine Aminotransferase (ALT/SGPT) 16 U/L (14-59) Alkaline Phosphatase 83 U/L (46-116) Troponin I Quantitative 0.017 ng/mL (0.000-0.055) Total Protein 5.8 g/dL (6.4-8.2) Albumin 2.8 g/dL (3.4-5.0) Albumin/Globulin Ratio 0.9 (1.0-1.7) VTE Prophylaxis Ordered VTE Prophylaxis Devices: Yes VTE Pharmacological Prophylaxi: Yes Assessment/Plan Assessment/Plan A/P: Symptomatic bradycardia - sinus on EKG, however, this looks to be her 3rd symptomatic episode with difficulty with her Hyperkalemia - could be dietary indiscretion vs dialysis issues. She does bring it difficulties with her fistula and insurance restrictions at her current dialysis center. Given calcium, albuterol, insulin, D50 Shortness of breath - likely multifactorial, Symptomatic bradycardia CHF exacerbation as well as some worsening baseline COPD complicated by her pulmonar y HTN Chronic AFIB - currently bradycardic, this could be tachybrady Acute on chronic diastolic CHF - with symptoms worse, may need dry weight adjusted Accelerated HTN - cont home medications COPD - nebs ordered, her shortness of breath is multifactorial ESRD - on HD, today due for next session CAD - stable outpatient, will trend troponins here PENNY - intolerant to CPAP Obesity - counseled on weight loss DM2 - will place on basal bolus plus in house HLD - cont statin PAD - past revascularization, no symptoms IV contrast allergy Anxiety - monitor FEN - NPO, can advance to Renal ADA diet when ok with cardiology PPX - eliquis FULL CODE Dispo - ICU for symptomatic bradycardia, likely 2 midnights. KERLINE LEON MD Jan 09, 2019 08:17
[2019-01-09] MEDS ORDERED: IV NORMAL SALINE 1000ML BAG 1,000 ML IV PRN ×2 (08:41)
[2019-01-09] MEDS ORDERED: ALBUMIN HUMAN 25% 200 ML IV PRN (08:45)
[2019-01-09] MEDS ORDERED: DIALYSIS PATIENT. MC PRN ×2 (08:45)
--- NOTE | 2019-01-09 09:10 | NUR ---
Rec'd from ER per kevin. A&OVAL. HR 40's SB Pt denies any discomfort. BP WNL. magneto specialist coming to start dialysis as K+ is elevated. Family here. Adm process started. Pt able to verbalize no dialysis missed and meds have been taken as ordered EJ is only IV at this time. Consults in place.
[2019-01-09] MEDS ORDERED: DEXTROSE 50% 25 GM / 50ML DISP.SYRIN. IV PRN (09:15)
[2019-01-09] MEDS ORDERED: ALBUTEROL SULFATE 2.5 MG/3 ML NEBU. INH PRN (09:15)
[2019-01-09] MEDS ORDERED: ONDANSETRON PF 4 MG/2 ML VIAL. IVP PRN (09:15)
[2019-01-09] MEDS ORDERED: ANTI-COAG MONITOR BY PHARMACY. MC PRN (09:30)
--- NOTE | 2019-01-09 10:06 | PDOC2 ---
CONSULT Date of Consult Date of Consult DATE: 01/09/19 TIME: 09:34 Reason for Consult Reason for Consult: ESRD, Hyperkalemia, Source Source: Chart review History of Present Illness Reason for Visit: Patient is a 73 year old multiple medical problems including ESRD on HD MWF under Dr. Ramon's care , - presenting with chief complaint of lightheadedness onset, last night felt sweaty no chest pain minimal sob admitted earlier this month for tachybrady phenomenon. At Home on Metoprolol and Amiodarone ,has life vest and holter, due for appt with Dr. Davis next week to discuss pacer. Denies any F/C . No N/V. In the ER found with HR in 20's , improved to 40's and potassium of 6.4. No missed dialysis sessions and compliant with her medications EKG shows sinus bradycardia rate 37 poor baseline, no definite heart block identified. PMHx CAD, CHF, HTN, HLD, Pulmonary HTN, Asthma/COPD, PENNY (returned her CPAP), GERD, Anemia, DVT, ESRD on HD, DM2 Past Medical History Cardiovascular: AFIB, CAD, CHF, HTN, Hyperlipidemia, Other Pulmonary: Asthma, COPD, Other CENTRAL NERVOUS SYSTEM: Other GI: Diverticulosis Heme/Onc: Anemia NOS Psych: Anxiety Rheumatologic: No pertinent hx Infectious disease: No pertinent hx Renal/: Chronic renal failure Endocrine: Diabetes, Hyperparathyroidism Past Surgical History Past Surgical History: Appendectomy, Arthroscopy, Cataract Removal, Other Family History Family History: Coronary Artery Disease, Diabetes, Hypertension Social History No ALCOHOL: none Drugs: None Lives: with Family Domestic Violence: Neg Current Problem List Problem List Problems Medical Problems: (1) Symptomatic bradycardia Status: Acute Current Medications Current Medications Current Medications Calcium Gluconate (Calcium Gluconate) 1,000 mg 1X ONCE IVP Last administered on 01/09/19at 07:09; Start 01/09/19 at 07:00; Stop 01/09/19 at 07:01; Status DC Sodium Bicarbonate (Sodium Bicarb Adult 8.4% Syr) 50 meq 1X ONCE IV Last administered on 01/09/19at 07:09; Start 01/09/19 at 07:30; Stop 01/09/19 at 07:31; Status DC Albuterol Sulfate (Ventolin Neb Soln) 10 mg 1X ONCE CONT NEB Last administered on 01/09/19at 07:26; Start 01/09/19 at 07:30; Stop 01/09/19 at 07:31; Status DC Ondansetron HCl (Zofran) 4 mg 1X ONCE IV Last administered on 01/09/19at 07:28; Start 01/09/19 at 07:30; Stop 01/09/19 at 07:31; Status DC Sodium Chloride 1,000 ml @ 1,000 mls/hr Q1H PRN IV hypotension; Start 01/09/19 at 08:41; Stop 01/09/19 at 14:40 Albumin Human 200 ml @ 200 mls/hr 1X PRN PRN IV Hypotension; Start 01/09/19 at 08:45; Stop 01/09/19 at 14:44 Sodium Chloride 1,000 ml @ 400 mls/hr Q2H30M PRN IV PATENCY; Start 01/09/19 at 08:41; Stop 01/09/19 at 20:40 Info (PHARMACY MONITORING -- do not chart) 1 each PRN DAILY PRN MC SEE COMMENTS; Start 01/09/19 at 08:45; Status UNV Info (PHARMACY MONITORING -- do not chart) 1 each PRN DAILY PRN MC SEE COMMENTS; Start 01/09/19 at 08:45 Albuterol Sulfate (Ventolin Neb Soln) 2.5 mg PRN Q6HRS PRN INH SHORTNESS OF BREATH; Start 01/09/19 at 09:15 Apixaban (Eliquis) 5 mg BID PO ; Start 01/09/19 at 10:00 Aspirin (Children'S Aspirin) 81 mg DAILY PO ; Start 01/09/19 at 10:00 Atorvastatin Calcium (Lipitor) 40 mg HS PO ; Start 01/09/19 at 21:00 Vitamin B Complex/ Vitamin C (Marina-Jayme) 1 tab DAILY PO ; Start 01/09/19 at 10:00 Non-Formulary Medication (Budesonide/ Formoterol Fumarate (Symbicort 160-4.5 Mcg Inhaler)) 2 puff BID IH ; Start 01/09/19 at 21:00; Status UNV Ondansetron HCl (Zofran) 4 mg PRN Q6HRS PRN IVP NAUSEA/VOMITING; Start 01/09/19 at 09:15 Insulin Glargine (Lantus Syringe) 5 unit QHS SQ ; Start 01/09/19 at 21:00 Insulin Human Lispro (HumaLOG) 0-7 UNITS TIDACHC SQ ; Start 01/09/19 at 11:30 Dextrose (Dextrose 50%-Water Syringe) 12.5 gm PRN Q15MIN PRN IV SEE COMMENTS; Start 01/09/19 at 09:15 Info (Anti-Coagulation Monitoring By Pharmacy) 1 each PRN DAILY PRN MC SEE COMMENTS; Start 01/09/19 at 09:30 Albuterol Sulfate (Ventolin Neb Soln) 2.5 mg RTQID NEB ; Start 01/09/19 at 12:00; Status UNV Budesonide (Pulmicort) 0.5 mg RTBID NEB ; Start 01/09/19 at 20:00; Status UNV Active Scripts Active Amiodarone Hcl 200 Mg Tablet 200 Mg PO DAILY 30 Days Eliquis (Apixaban) 5 Mg Tablet 5 Mg PO BID MDD ` Reported Aspirin 81 Mg Tab.chew 1 Tab PO DAILY Lipitor (Atorvastatin Calcium) 40 Mg Tablet 40 Mg PO HS Furosemide 40 Mg Tablet 40 Mg PO DAILY Symbicort 160-4.5 Mcg Inhaler (Budesonide/Formoterol Fumarate) 10.2 Gm Hfa.aer.ad 2 Puff IH BID Toprol Xl (Metoprolol Succinate) 100 Mg Tab.er.24h 100 Mg PO DAILY Proair Hfa Inhaler (Albuterol Sulfate) 8.5 Gm Hfa.aer.ad 1 Puff INH PRN Q6HRS PRN Marina-Jayme Tablet (Folic Acid/Vitamin B Comp W-C) 0.8 Mg Tablet 0.8 Mg PO DAILY Hydroxyzine Hcl 25 Mg Tablet 50 Mg PO QMWF Allergies Allergies: Coded Allergies: Iodinated Contrast Media (Verified Allergy, Intermediate, 11/06/17) ROS Review of System Per HPI Physical Exam Physical Exam General: No acute distress HEENT: Mucous membr. moist/pink neck Supple Lungs: CTA Heart:Bradycardic Abdomen: Soft, No tenderness, Extremities: No edema, LUE AV fistula with bruit Skin: No rashes Neuro: Grossly Normal Psych/Mental Status: Mental status NL, Mood NL No Guerrier Vital Signs Vital Signs Date Time Temp Pulse Resp B/P (MAP) Pulse Ox O2 Delivery O2 Flow Rate FiO2 01/09/19 09:00 48 18 99 10/2/19 07:26 Nasal Cannula 3.0 01/09/19 05:52 97.8 114/56 (75) 97.8 Assessment & Plan ESRD- On HD MWF under Dr. Ramon's care , no missed Dialysis Seen on HD ,Continue as ordered , Richard Sandra Hyperkalemia- temporizing measures in ER Dialysis today as ordered Symptomatic Bradycardia - On metoprolol and amiodarone per home list Has life vest and holter monitor and scheduled as OP wirh Dr. Davis for pacemaker BP stable Anemia- Stable , PARISA for Hgb <10 , Monitor GI bleed in june 2018, post EGD DM - primary managing PENNY- cant tolerate CPAP Labs Labs Laboratory Tests Test 01/09/19 06:10 White Blood Count 4.2 x10^3/uL (4.0-11.0) Red Blood Count 3.59 x10^6/uL (3.50-5.40) Hemoglobin 11.7 g/dL (12.0-15.5) Hematocrit 37.6 % (36.0-47.0) Mean Corpuscular Volume 105 fL (79-100) Mean Corpuscular Hemoglobin 33 pg (25-35) Mean Corpuscular Hemoglobin Concent 31 g/dL (31-37) Red Cell Distribution Width 15.5 % (11.5-14.5) Platelet Count 265 x10^3/uL (140-400) Neutrophils (%) (Auto) 75 % (31-73) Lymphocytes (%) (Auto) 13 % (24-48) Monocytes (%) (Auto) 10 % (0-9) Eosinophils (%) (Auto) 1 % (0-3) Basophils (%) (Auto) 1 % (0-3) Neutrophils # (Auto) 3.2 x10^3/uL (1.8-7.7) Lymphocytes # (Auto) 0.5 x10^3/uL (1.0-4.8) Monocytes # (Auto) 0.4 x10^3/uL (0.0-1.1) Eosinophils # (Auto) 0.1 x10^3/uL (0.0-0.7) Basophils # (Auto) 0.0 x10^3/uL (0.0-0.2) Sodium Level 144 mmol/L (136-145) Potassium Level 6.4 mmol/L (3.5-5.1) Chloride Level 111 mmol/L (98-107) Carbon Dioxide Level 24 mmol/L (21-32) Anion Gap 9 (6-14) Blood Urea Nitrogen 45 mg/dL (7-20) Creatinine 8.4 mg/dL (0.6-1.0) Estimated GFR (Cockcroft-Gault) 5.6 BUN/Creatinine Ratio 5 (6-20) Glucose Level 156 mg/dL (70-99) Calcium Level 8.5 mg/dL (8.5-10.1) Total Bilirubin 0.3 mg/dL (0.2-1.0) Aspartate Amino Transf (AST/SGOT) 24 U/L (15-37) Alanine Aminotransferase (ALT/SGPT) 16 U/L (14-59) Alkaline Phosphatase 83 U/L (46-116) Troponin I Quantitative 0.017 ng/mL (0.000-0.055) Total Protein 5.8 g/dL (6.4-8.2) Albumin 2.8 g/dL (3.4-5.0) Albumin/Globulin Ratio 0.9 (1.0-1.7) Laboratory Tests Test 01/09/19 06:10 White Blood Count 4.2 x10^3/uL (4.0-11.0) Red Blood Count 3.59 x10^6/uL (3.50-5.40) Hemoglobin 11.7 g/dL (12.0-15.5) Hematocrit 37.6 % (36.0-47.0) Mean Corpuscular Volume 105 fL (79-100) Mean Corpuscular Hemoglobin 33 pg (25-35) Mean Corpuscular Hemoglobin Concent 31 g/dL (31-37) Red Cell Distribution Width 15.5 % (11.5-14.5) Platelet Count 265 x10^3/uL (140-400) Neutrophils (%) (Auto) 75 % (31-73) Lymphocytes (%) (Auto) 13 % (24-48) Monocytes (%) (Auto) 10 % (0-9) Eosinophils (%) (Auto) 1 % (0-3) Basophils (%) (Auto) 1 % (0-3) Neutrophils # (Auto) 3.2 x10^3/uL (1.8-7.7) Lymphocytes # (Auto) 0.5 x10^3/uL (1.0-4.8) Monocytes # (Auto) 0.4 x10^3/uL (0.0-1.1) Eosinophils # (Auto) 0.1 x10^3/uL (0.0-0.7) Basophils # (Auto) 0.0 x10^3/uL (0.0-0.2) Sodium Level 144 mmol/L (136-145) Potassium Level 6.4 mmol/L (3.5-5.1) Chloride Level 111 mmol/L (98-107) Carbon Dioxide Level 24 mmol/L (21-32) Anion Gap 9 (6-14) Blood Urea Nitrogen 45 mg/dL (7-20) Creatinine 8.4 mg/dL (0.6-1.0) Estimated GFR (Cockcroft-Gault) 5.6 BUN/Creatinine Ratio 5 (6-20) Glucose Level 156 mg/dL (70-99) Calcium Level 8.5 mg/dL (8.5-10.1) Total Bilirubin 0.3 mg/dL (0.2-1.0) Aspartate Amino Transf (AST/SGOT) 24 U/L (15-37) Alanine Aminotransferase (ALT/SGPT) 16 U/L (14-59) Alkaline Phosphatase 83 U/L (46-116) Troponin I Quantitative 0.017 ng/mL (0.000-0.055) Total Protein 5.8 g/dL (6.4-8.2) Albumin 2.8 g/dL (3.4-5.0) Albumin/Globulin Ratio 0.9 (1.0-1.7) Review All relevant outside records, renal labs, imaging studies, telemetry/EKG's were reviewed. Images Images CXR-- Cardiomegaly. No new infiltrate. No significant change in aeration of the left lower lung field. Consider further evaluation with lateral view for more complete evaluation of the lung bases. DESIREE MELARA MD Jan 09, 2019 10:06
--- NOTE | 2019-01-09 11:11 | PDOC2 ---
SHANA VIRK PSYCHIATRIC NURSING AIDE 01/09/19 1111: CARDIAC CONSULT DATE OF CONSULT Date of Consult DATE: 01/09/19 TIME: 1000 REASON FOR CONSULT Reason for Consult: Symptomatic bradycardia REFERRING PHYSICIAN Referring Physician: Tiffany SOURCE Source: Chart review, Patient HISTORY OF PRESENT ILLNESS HISTORY OF PRESENT ILLNESS This is a pleasant 73 yo female admitted for complains of dizziness. Reports that she woke up at midnight and felt flushed and sweaty. She got a drink and went back to sleep and woke up around 3 AM and felt weak and dizzy and could not get out of bed. Also with blurred vision. Denies any chest pain, SOA or any palpitations. She is known for cardiomyopathy, ESRD and has been compliant with her medications and dialysis. She was here over a month ago and had bouts of diarrhea before admission and was noted with high potassium and bradycardia. She presented with the same issue this time and has been having loose to watery stool each meals in the last 3 days. She has a lifevest which did show no significant bradycardia less than 50 till today when she was noted in ED with HR in the 20-30s of sinus bradycardia. Currently she is now getting HD. I discussed with her her dailys meals and it does not appear she eats high K foods and has not been place on any ACEi or ARB and denies any NSAIDs. PAST MEDICAL HISTORY Past Medical History Cardiovascular: CAD, CHF, HTN, Hyperlipidemia, Pulmonary hypertension, AFIB Pulmonary: Asthma, COPD, PNA, PENNY CENTRAL NERVOUS SYSTEM: Other (no pertinent hx) GI: GERD, esophagitis, hiatal hernia Heme/Onc: Anemia NOS, Other (DVT) Renal/: Chronic renal failure on HD, hyperkalemia Endocrine: Diabetes Dermatology: No pertinent hx PAST SURGICAL HISTORY Past Surgical History Appendectomy, Other (left rotator cuff sx), Other (PVD s/p SUPERVISOR DOCK/stent to left common iliac artery, endovascular AAA repair) FAMILY HISTORY Family History: Coronary Artery Disease, Diabetes SOCIAL HISTORY Smoke: Quit ALCOHOL: none Drugs: None Lives: with Family CURRENT MEDICATIONS CURRENT MEDICATIONS Current Medications Medications (Trade) Dose Ordered Sig/Eric Route PRN Reason Start Time Stop Time Status Last Admin Dose Admin Calcium Gluconate (Calcium Gluconate) 1,000 mg 1X ONCE IVP 01/09/19 07:00 01/09/19 07:01 DC 01/09/19 07:09 Sodium Bicarbonate (Sodium Bicarb Adult 8.4% Syr) 50 meq 1X ONCE IV 01/09/19 07:30 01/09/19 07:31 DC 01/09/19 07:09 Albuterol Sulfate (Ventolin Neb Soln) 10 mg 1X ONCE CONT NEB 01/09/19 07:30 01/09/19 07:31 DC 01/09/19 07:26 Ondansetron HCl (Zofran) 4 mg 1X ONCE IV 01/09/19 07:30 01/09/19 07:31 DC 01/09/19 07:28 ALLERGIES ALLERGIES: Coded Allergies: Iodinated Contrast Media (Verified Allergy, Intermediate, 11/06/17) ROS Review of System 14 point ROS evaluated with pertinent positives noted per HPI PHYSICAL EXAM General: Alert, Oriented X3, Cooperative, No acute distress HEENT: Atraumatic, Mucous membr. moist/pink Lungs: Clear to auscultation, Normal air movement Heart: Regular rate (SB), Normal S1, Normal S2, Other (3/) Abdomen: Soft, No tenderness Extremities: No cyanosis, No edema Skin: No breakdown, No significant lesion Neuro: Normal speech, Sensation intact Psych/Mental Status: Mental status NL, Mood NL MUSCULOSKELETAL: Osteoarthritic changes both hands VITALS/I&O VITALS/I&O: Vital Signs Date Time Temp Pulse Resp B/P (MAP) Pulse Ox O2 Delivery O2 Flow Rate FiO2 01/09/19 09:00 48 18 99 01/09/19 07:26 Nasal Cannula 3.0 01/09/19 05:52 97.8 114/56 (75) 97.8 LABS Lab: Laboratory Tests Test 01/09/19 06:10 White Blood Count 4.2 x10^3/uL (4.0-11.0) Red Blood Count 3.59 x10^6/uL (3.50-5.40) Hemoglobin 11.7 g/dL (12.0-15.5) L Hematocrit 37.6 % (36.0-47.0) Mean Corpuscular Volume 105 fL (79-100) H Mean Corpuscular Hemoglobin 33 pg (25-35) Mean Corpuscular Hemoglobin Concent 31 g/dL (31-37) Red Cell Distribution Width 15.5 % (11.5-14.5) H Platelet Count 265 x10^3/uL (140-400) Neutrophils (%) (Auto) 75 % (31-73) H Lymphocytes (%) (Auto) 13 % (24-48) L Monocytes (%) (Auto) 10 % (0-9) H Eosinophils (%) (Auto) 1 % (0-3) Basophils (%) (Auto) 1 % (0-3) Neutrophils # (Auto) 3.2 x10^3/uL (1.8-7.7) Lymphocytes # (Auto) 0.5 x10^3/uL (1.0-4.8) L Monocytes # (Auto) 0.4 x10^3/uL (0.0-1.1) Eosinophils # (Auto) 0.1 x10^3/uL (0.0-0.7) Basophils # (Auto) 0.0 x10^3/uL (0.0-0.2) Sodium Level 144 mmol/L (136-145) Potassium Level 6.4 mmol/L (3.5-5.1) *H Chloride Level 111 mmol/L (98-107) H Carbon Dioxide Level 24 mmol/L (21-32) Anion Gap 9 (6-14) Blood Urea Nitrogen 45 mg/dL (7-20) H Creatinine 8.4 mg/dL (0.6-1.0) H Estimated GFR (Cockcroft-Gault) 5.6 BUN/Creatinine Ratio 5 (6-20) L Glucose Level 156 mg/dL (70-99) H Calcium Level 8.5 mg/dL (8.5-10.1) Total Bilirubin 0.3 mg/dL (0.2-1.0) Aspartate Amino Transferase (AST) 24 U/L (15-37) Alanine Aminotransferase (ALT) 16 U/L (14-59) Alkaline Phosphatase 83 U/L (46-116) Troponin I Quantitative 0.017 ng/mL (0.000-0.055) Total Protein 5.8 g/dL (6.4-8.2) L Albumin 2.8 g/dL (3.4-5.0) L Albumin/Globulin Ratio 0.9 (1.0-1.7) L Laboratory Tests 01/09/19 06:10 Laboratory Tests 01/09/19 06:10 ECHOCARDIOGRAM ECHOCARDIOGRAM <Conclusion> Left ventricle systolic function is moderately impaired. EF 35% Septal motion consistent with conduction abnormality. There is moderate to severe concentric left ventricular hypertrophy. Doppler and Color Flow revealed moderate to severe eccentric tricuspid regurgitation. There is severe pulmonary hypertension. The PA pressure was estimated at 87 mmHg. DATE: 12/04/18 0852 HEART CATH HEART CATH Conclusion 1. Nonobstructive coronary artery disease with 30% in-stent restenosis involving the distal segment of the right coronary artery 2. Posterobasal wall hypokinesis with ejection fraction estimated at 45%. Recommendations Medical Therapy DATE: 06/11/18 1238 ASSESSMENT/PLAN ASSESSMENT/PLAN 1. Symptomatic SB with presyncopal spell: no recorded pauses. This is due to hyperkalemia with concurrent use of BB/amiodarone 2. NICM/chronic systolic CHF: compensated EF 35% NYHA 2 3. PAFIB: presently SB in the 50s. Stable. 6. Hypertension; controlled 7. ESRD with hyperkalemia 8. CAD s/p PCI/stent to the RCA: Cath earlier this year with non-obstructive CAD 9. PENNY: intolerant to CPAP 10. DM2: no recorded hypoglycemia during her symptoms. 11. HLP 12. PAD s/p SUPERVISOR DOCK/stent to the left common iliac artery. No claudication symptoms 13. Chronic RBBB 14. Diarrhea: possibly related to high K. Denies any fever or chills. No blood in stool. Recommendation 1. Fluid off loading and K correction per HD. Consider Valtessa use. 2. Hold BB and amiodarone and will repeat EKG tomorrow. 3. Continue with secondary prevention. Eliquis for stroke prevention 4. ASA. Not an ideal candidate for ACEi/ARB due to hyperkalemia episodes despite HD. 5. Continue lifevest. No recorded tachyarrhythmias, alarms or bradyarrhythmias per review except for today with bradycardia. 6. Dietitian consult. 7. Future reevaluation for FULL CHARGE BOOKKEEPER-D consideration as an outpt after sufficient optimization. FRANK REED MD 01/09/19 4704: CARDIAC CONSULT ASSESSMENT/PLAN ASSESSMENT/PLAN Patient seen and examined. Agree with INSTALLATION COORDINATOR's assessment and plan. Sinus bradycardia most probably secondary to recurrent abnormalities. Presently heart rate in 60s after dialysis. Hold rate lowering medications and continue to monitor under telemetry. Continue hemodialysis per nephrology team for hyperkalemia. Consider valtessa CAD and PAD status clinically stable Plan for FULL CHARGE BOOKKEEPER-D implantation at a later date. Continue LifeVest for now. Thank you for your consultation. SHANA VIRK APRN Jan 09, 2019 11:11 FRANK REED MD Jan 09, 2019 16:55
[2019-01-09] MEDS: INSULIN LISPRO 300 UNITS/3 ML VIAL. SQ SCH ×3 (11:30→20:57)
[2019-01-09] MEDS: BUDESONIDE 0.5 MG/2 ML NEBU. NEB SCH ×2 (12:11→20:45)
[2019-01-09] MEDS: ALBUTEROL SULFATE 2.5 MG/3 ML NEBU. NEB SCH ×2 (12:11→20:45)
[2019-01-09] MEDS: APIXABAN 5 MG TABLET. PO SCH ×2 (13:41→20:51)
[2019-01-09] MEDS: FOLIC/VIT B COMP W-C (RENAL) TABLET. PO SCH (13:41)
[2019-01-09] MEDS: ASPIRIN CHEWABLE 81 MG TABLET. PO SCH (13:41)
--- NOTE | 2019-01-09 18:03 | NUR ---
Pt tolerated dialysis well HR up some. VSS Up in chair for dinner.
[2019-01-09] MEDS ORDERED: INSULIN GLARGINE SYRINGE. SQ SCH (21:00)
[2019-01-09] MEDS ORDERED: NON FORMULARY ITEM (Budesonide/Formoterol Fumarate (Symbicort 160-4.5 Mcg Inhaler) 2 PUFF) IH SCH (21:00)
[2019-01-09] MEDS ORDERED: ATORVASTATIN CALCIUM 40 MG TABLET. PO SCH (21:00)
[2019-01-10] VITALS (18 sets, daily range): BP systolic 106–149; BP diastolic 42–80
[2019-01-10 03:29] LABS: CALCIUM 8.2 mg/dL (8.5-10.1); GFR 10.2; POTASSIUM 4.4 mmol/L (3.5-5.1)
[2019-01-10] MEDS: INSULIN LISPRO 300 UNITS/3 ML VIAL. SQ SCH ×2 (07:30→12:48)
[2019-01-10] MEDS: FOLIC/VIT B COMP W-C (RENAL) TABLET. PO SCH (08:14)
[2019-01-10] MEDS: APIXABAN 5 MG TABLET. PO SCH (08:14)
[2019-01-10] MEDS: ASPIRIN CHEWABLE 81 MG TABLET. PO SCH (08:14)
[2019-01-10] MEDS: ALBUTEROL SULFATE 2.5 MG/3 ML NEBU. NEB SCH ×3 (08:37→12:09)
[2019-01-10] MEDS: BUDESONIDE 0.5 MG/2 ML NEBU. NEB SCH (08:37)
--- NOTE | 2019-01-10 08:41 | PDOC ---
SHANA VIRK WINDOW GLAZIER 01/10/19 0841: CARDIO Progress Notes Date and Time Date of Service 01/10/2019 Time of Evaluation 0830 Subjective Subjective: No Chest Pain, No shortness of breath, No Palpitations, Other (slept well overnight) Vitals Vitals Vital Signs Date Time Temp Pulse Resp B/P (MAP) Pulse Ox O2 Delivery O2 Flow Rate FiO2 01/10/19 06:00 73 18 137/61 (86) 100 Nasal Cannula 3.0 01/10/19 04:00 98.5 98.5 Weight Weight [ ] Input and Output Intake and Output Intake and Output 01/10/19 07:00 Intake Total 350 ml Balance 350 ml Intake Oral 350 ml Laboratory Labs Laboratory Tests Test 01/09/19 20:56 01/10/19 02:55 01/10/19 08:13 Glucose (Fingerstick) 125 mg/dL (70-99) 84 mg/dL (70-99) Sodium Level 143 mmol/L (136-145) Potassium Level 4.4 mmol/L (3.5-5.1) Chloride Level 106 mmol/L (98-107) Carbon Dioxide Level 32 mmol/L (21-32) Anion Gap 5 (6-14) Blood Urea Nitrogen 33 mg/dL (7-20) Creatinine 5.0 mg/dL (0.6-1.0) Estimated GFR (Cockcroft-Gault) 10.2 Glucose Level 151 mg/dL (70-99) Calcium Level 8.2 mg/dL (8.5-10.1) Physical Exam HEENT: Neck Supple W Full Motion Chest: Symmetric LUNGS: Clear to Auscultation Heart: RRR (SR), other (Bradycardic) Extremities: No Calf Tenderness Neurology: alert, oriented, follow commands Assessment Assessment 1. Symptomatic SB with presyncopal spell: no recorded pauses. This is due to hyperkalemia. HR much better post HD 2. NICM/chronic systolic CHF: compensated EF 35% NYHA 2 3. PAFIB: paroxysms overnight, presently SR 6. Hypertension; controlled 7. ESRD with hyperkalemia: K better 8. CAD s/p PCI/stent to the RCA: Cath earlier this year with non-obstructive CAD, clnically stable 9. PENNY: intolerant to CPAP 10. DM2: no recorded hypoglycemia during her symptoms. 11. HLP 12. PAD s/p DRAFTER GEOPHYSICAL/stent to the left common iliac artery. No claudication symptoms 13. Chronic RBBB 14. Diarrhea: possibly related to high K. Denies any fever or chills. No blood in stool. Recommendation 1. Fluid off loading per HD. Consider Valtessa use. 2. QTc within range, Restart amiodarone and will restart toprol at lower dose. 3. Continue with secondary prevention. Eliquis for stroke prevention 4. ASA. Not an ideal candidate for ACEi/ARB due to hyperkalemia episodes despite HD. 5. Continue lifevest. 6. Future CHEMICAL COMPOUNDER HELPER-D consideration as an outpt after sufficient optimization. 7. Anticipate DC this afternoon. FRANK REED MD 01/10/19 1620: CARDIO Progress Notes Assessment Assessment Patient seen and examined. Agree with FORESTRY HUNTER's assessment and plan. Sinus bradycardia most probably secondary to electrolyte abnormalities, currently resolved Continue fluid removal with hemodialysis per nephrology team Plan for biventricular ICD/CHEMICAL COMPOUNDER HELPER-D as outpatient SHANA VIRK APRN Jan 10, 2019 08:41 FRANK REED MD Jan 10, 2019 16:20
--- NOTE | 2019-01-10 09:55 | EKG ---
[facility] [address] [place] [address] Test Date: 2019-01-10 Test Time: 09:33:33 Pat Name: WANDA PRABHAKAR Department: Room: 114 1 Gender: F Electric Meter Technician: HALEY : 1945 Requested By: SHANA VIRK Order Number: [id number] Reading MD: Lavon Miranda Measurements Intervals [place] Rate: 69 P: -90 MT: 166 QRS: -77 QRSD: 140 T: 95 QT: 434 QTc: 467 Interpretive Statements SINUS RHYTHM RIGHT BUNDLE BRANCH BLOCK RVH WITH REPOLARIZATION ABNORMALITY Electronically Signed On 01-18-2019 16:34:46 CDT by Lavon Miranda
[2019-01-10] MEDS ORDERED: METOPROLOL SUCC 24HR ER 25 MG TAB.ER.24H. PO ONE (11:30)
--- NOTE | 2019-01-10 11:38 | PDOC ---
[employer] PROGRESS NOTE Chief Complaint Chief Complaint Bradycardia Dizziness History of Present Illness History of Present Illness 01/10/19 Pt seen and examined in ICU Pt is feeling better, sitting up, doing a puzzle Explained to pt, and confirmed with cardiology, who stated that she will likely have to get an AICD but will be managed medically first for her bradycardia EF= 35% Nasal canula DW RN Vitals/I&O Vitals/I&O: Vital Signs Date Time Temp Pulse Resp B/P (MAP) Pulse Ox O2 Delivery O2 Flow Rate FiO2 01/10/19 09:00 66 32 149/80 (103) 99 Nasal Cannula 3.0 01/10/19 08:00 98.4 98.4 I & O 01/09/19 01/09/19 01/10/19 15:00 23:00 07:00 Intake Total 150 ml 200 ml 200 ml Output Total 0 ml Balance 150 ml 200 ml 200 ml Physical Exam General: Alert, Oriented X3, Cooperative, No acute distress Heart: Regular rate (SB), Normal S1, Normal S2, Other (3/) Lungs: Clear Abdomen: Soft, No tenderness Extremities: No cyanosis, No edema Skin: No breakdown, No significant lesion Labs Labs: Laboratory Tests Test 01/09/19 20:56 01/10/19 02:55 01/10/19 08:13 Glucose (Fingerstick) 125 mg/dL (70-99) 84 mg/dL (70-99) Sodium Level 143 mmol/L (136-145) Potassium Level 4.4 mmol/L (3.5-5.1) Chloride Level 106 mmol/L (98-107) Carbon Dioxide Level 32 mmol/L (21-32) Anion Gap 5 (6-14) Blood Urea Nitrogen 33 mg/dL (7-20) Creatinine 5.0 mg/dL (0.6-1.0) Estimated GFR (Cockcroft-Gault) 10.2 Glucose Level 151 mg/dL (70-99) Calcium Level 8.2 mg/dL (8.5-10.1) Review of Systems Review of Systems: Denies chest pain Denies n/v/d Assessment and Plan Assessmemt and Plan Problems Medical Problems: (1) Symptomatic bradycardia Status: Acute Assessment Bradycardia Hyperkalemia SOB Afib CHF acute on chronic COPD ERSD CAD DM2 PENNY Plan ICU monitoring Appreciate nephrology, cardiology input Dialysis Full code Home meds DVT prophylaxis PT/OT Advance diet Comment Review of Relevant I have reviewed the following items mykel (where applicable) has been applied. Medications: Current Medications Medications (Trade) Dose Ordered Sig/Eric Route PRN Reason Start Time Stop Time Status Last Admin Dose Admin Atorvastatin Calcium (Lipitor) 40 mg HS PO 01/09/19 21:00 01/09/19 20:51 Insulin Glargine (Lantus Syringe) 5 unit QHS SQ 01/09/19 21:00 01/09/19 20:57 Albuterol Sulfate (Ventolin Neb Soln) 2.5 mg Q6HRS NEB 01/09/19 12:00 01/10/19 08:37 YULIA DE ANDA K III DO Jan 10, 2019 11:38
--- NOTE | 2019-01-10 14:54 | PDOC ---
SUBJECTIVE ROS Stable OBJECTIVE Vital Signs Vital Signs Date Time Temp Pulse Resp B/P (MAP) Pulse Ox O2 Delivery O2 Flow Rate FiO2 01/10/19 12:11 98 Nasal Cannula 3.0 01/10/19 09:00 66 32 149/80 (103) 01/10/19 08:00 98.4 98.4 I & 0 Intake and Output 01/10/19 07:00 Intake Total 550 ml Output Total 0 ml Balance 550 ml Intake Oral 550 ml Output Urine Total 0 ml PHYSICAL EXAM Physical Exam General: No acute distress HEENT: Mucous membr. moist/pink neck Supple Lungs: CTA Heart:Bradycardic Abdomen: Soft, No tenderness, Extremities: No edema, LUE AV fistula with bruit Skin: No rashes Neuro: Grossly Normal Psych/Mental Status: Mental status NL, Mood NL No Guerrier DIAGNOSIS/ASSESSMENT Assessment & Plan ESRD- On HD MWF under Dr. Ramon's care , no missed Dialysis Seen on HD Hyperkalemia- at presentation Symptomatic Bradycardia - On metoprolol and amiodarone per home list Has life vest and holter monitor and scheduled as OP wirh Dr. Davis for pacemaker BP stable Anemia- Stable , PARISA for Hgb <10 , Monitor GI bleed in june 2018, post EGD DM - primary managing PENNY- cant tolerate CPAP COMMENT/RELEVANT DATA Meds Current Medications Medications (Trade) Dose Ordered Sig/Eric Start Time Stop Time Status Last Admin Dose Admin Albumin Human 200 ml @ 200 mls/hr 1X PRN PRN 01/09/19 08:45 01/09/19 14:44 DC Albuterol Sulfate (Ventolin Neb Soln) 2.5 mg Q6HRS 01/09/19 12:00 01/10/19 12:09 2.5 MG Apixaban (Eliquis) 5 mg BID 01/09/19 10:00 01/10/19 08:14 5 MG Aspirin (Children'S Aspirin) 81 mg DAILY 01/09/19 10:00 01/10/19 08:14 81 MG Atorvastatin Calcium (Lipitor) 40 mg HS 01/09/19 21:00 01/09/19 20:51 40 MG Budesonide (Pulmicort) 0.5 mg RTBID 01/09/19 10:00 01/10/19 08:37 0.5 MG Calcium Gluconate (Calcium Gluconate) 1,000 mg 1X ONCE 01/09/19 07:00 01/09/19 07:01 DC 01/09/19 07:09 1,000 MG Dextrose (Dextrose 50%-Water Syringe) 12.5 gm PRN Q15MIN PRN 01/09/19 09:15 Info (Anti-Coagulation Monitoring By Pharmacy) 1 each PRN DAILY PRN 01/09/19 09:30 Info (PHARMACY MONITORING -- do not chart) 1 each PRN DAILY PRN 01/09/19 08:45 Insulin Glargine (Lantus Syringe) 5 unit QHS 01/09/19 21:00 01/09/19 20:57 5 UNIT Insulin Human Lispro (HumaLOG) 0-7 UNITS TIDACHC 01/09/19 11:30 01/10/19 12:48 3 UNITS Metoprolol Succinate (Toprol Xl) 25 mg 1X ONCE 01/10/19 11:30 01/10/19 11:31 DC Non-Formulary Medication (Budesonide/ Formoterol Fumarate (Symbicort 160-4.5 Mcg Inhaler)) 2 puff BID 01/09/19 21:00 UNV Ondansetron HCl (Zofran) 4 mg PRN Q6HRS PRN 01/09/19 09:15 Sodium Bicarbonate (Sodium Bicarb Adult 8.4% Syr) 50 meq 1X ONCE 01/09/19 07:30 01/09/19 07:31 DC 01/09/19 07:09 50 MEQ Sodium Chloride 1,000 ml @ 400 mls/hr Q2H30M PRN 01/09/19 08:41 01/09/19 20:40 DC Vitamin B Complex/ Vitamin C (Marina-Jayme) 1 tab DAILY 01/09/19 10:00 01/10/19 08:14 1 TAB Lab Laboratory Tests Test 01/09/19 20:56 01/10/19 02:55 01/10/19 08:13 01/10/19 12:46 Glucose (Fingerstick) 125 mg/dL (70-99) 84 mg/dL (70-99) 156 mg/dL (70-99) Sodium Level 143 mmol/L (136-145) Potassium Level 4.4 mmol/L (3.5-5.1) Chloride Level 106 mmol/L (98-107) Carbon Dioxide Level 32 mmol/L (21-32) Anion Gap 5 (6-14) Blood Urea Nitrogen 33 mg/dL (7-20) Creatinine 5.0 mg/dL (0.6-1.0) Estimated GFR (Cockcroft-Gault) 10.2 Glucose Level 151 mg/dL (70-99) Calcium Level 8.2 mg/dL (8.5-10.1) Results All relevant outside records, renal labs, imaging studies, telemetry/EKG's were reviewed. DESIREE MELARA MD Jan 10, 2019 14:54
--- NOTE | 2019-01-10 16:05 | NUR ---
SS following for discharge planning. SS reviewed pt chart. Pt is from home with spouse and is currently requiring oxygen. Pt has dialysis in the community on Monday, Monday, and Fridays. Pt was previously on services with [facility], ; fax [phone]. PT/OT ordered. SS will continue to follow for discharge planning.
[2019-01-10] MEDS ORDERED: fentaNYL PF VIAL 100 MCG/2 ML VIAL IVP ONE (16:15)
--- NOTE | 2019-01-10 17:45 | NUR ---
Patient discharged home. Patient aware of follow-up appointment with Dr. Davis, and primary care physician. IV was removed with no complications or excessive bleeding. Catheter tip was in tact. Patient left with all belongings, and verbalized that she did in fact have all of her belongings with her before she was wheeled out front. Her and sister accompanied her, and are driving her home.
[2019-01-11] MEDS ORDERED: METOPROLOL SUCC 24HR ER 25 MG TAB.ER.24H. PO SCH (09:00)
== END 2019-01-10 17:49 | disposition home or self-care (01) | DRG 291 ==
LOC: ER 05:52 → 2 NORTH 06:30 → 1 WEST ICU 08:30
PROVIDERS: ADMIT Internal Medicine; ATTEND Internal Medicine
PROC: 5A1D70Z Performance of Urinary Filtration, Intermittent, Less than 6 Hours Per Day (ICD-10-PCS; principal; 2019-01-09)
PROC: 5A1D70Z Performance of Urinary Filtration, Intermittent, Less than 6 Hours Per Day (ICD-10-PCS; 2019-01-10)
DX: I13.2 Hypertensive heart and chronic kidney disease with heart failure and with stage 5 chronic kidney disease, or end stage renal disease (principal); N18.6 End stage renal disease; I50.43 Acute on chronic combined systolic (congestive) and diastolic (congestive) heart failure; E87.5 Hyperkalemia; I42.8 Other cardiomyopathies; R00.1 Bradycardia, unspecified; I25.10 Atherosclerotic heart disease of native coronary artery without angina pectoris; E78.00 Pure hypercholesterolemia, unspecified; J44.9 Chronic obstructive pulmonary disease, unspecified; K21.9 Gastro-esophageal reflux disease without esophagitis; G47.33 Obstructive sleep apnea (adult) (pediatric); I48.91 Unspecified atrial fibrillation; E11.51 Type 2 diabetes mellitus with diabetic peripheral angiopathy without gangrene; E78.5 Hyperlipidemia, unspecified; F41.9 Anxiety disorder, unspecified; E11.22 Type 2 diabetes mellitus with diabetic chronic kidney disease; I45.10 Unspecified right bundle-branch block; E66.9 Obesity, unspecified; Z68.25 Body mass index [BMI] 25.0-25.9, adult; Z88.8 Allergy status to other drugs, medicaments and biological substances; Z86.718 Personal history of other venous thrombosis and embolism; I25.2 Old myocardial infarction; Z99.2 Dependence on renal dialysis; Z87.01 Personal history of pneumonia (recurrent); Z86.79 Personal history of other diseases of the circulatory system; Z91.041 Radiographic dye allergy status; Z98.61 Coronary angioplasty status; Z98.62 Peripheral vascular angioplasty status; Z83.3 Family history of diabetes mellitus; Z82.49 Family history of ischemic heart disease and other diseases of the circulatory system
CPT/HCPCS: 36415; 71045; 80048; 80053; 82962; 84484; 85025; 86850; 86900; 86901; 93005; 94640; 94760; J0610; J1815; J2405; J7613; J7626; G0378

== ENCOUNTER 2019-01-14 16:02 | Emergency (ER) | payer MEDICARE ==
[~2019-01-14] VITALS: Ht 154.9 cm; Wt 61.7 kg
[2019-01-14 16:23] LABS: BASO % 1 % (0-3); EOS # 0.1 x10^3/uL (0.0-0.7); EOS % 3 % (0-3); HEMATOCRIT 37.9 % (36.0-47.0); HEMOGLOBIN 11.7 g/dL (12.0-15.5); LYMPH # 0.5 x10^3/uL (1.0-4.8); LYMPH % 15 % (24-48); MEAN CORPUSCULAR HEMOGLOBIN 32 pg (25-35); MEAN CORPUSCULAR HGB CONC 31 g/dL (31-37); MEAN CORPUSCULAR VOLUME 104 fL (79-100); MONO # 0.3 x10^3/uL (0.0-1.1); MONO % 10 % (0-9); NEUT # 2.5 x10^3/uL (1.8-7.7); NEUT % 72 % (31-73); PLATELET COUNT 197 x10^3/uL (140-400); RED BLOOD COUNT 3.65 x10^6/uL (3.50-5.40); WHITE BLOOD COUNT 3.5 x10^3/uL (4.0-11.0)
[2019-01-14 16:35] LABS: CALCIUM 8.6 mg/dL (8.5-10.1); CREATININE 3.9 mg/dL (0.6-1.0); GFR 13.6; POTASSIUM 5.1 mmol/L (3.5-5.1)
[2019-01-14 16:40] LABS: ALBUMIN/GLOBULIN RATIO 0.8 (1.0-1.7); TOTAL BILIRUBIN 0.4 mg/dL (0.2-1.0); TOTAL PROTEIN 6.8 g/dL (6.4-8.2)
[2019-01-14] MEDS ORDERED: IPRATRPIUM/ALBUTEROL 0.5/2.5MG 3 ML NEBU. NEB ONE (16:45)
--- NOTE | 2019-01-14 16:46 | RAD ---
PORTABLE CHEST 1V History: Hypoxia Comparison: January 09, 2019 Findings: Cardiomegaly, unchanged. No consolidation or pleural effusion. No pneumothorax. Impression: 1. Cardiomegaly, unchanged. No new consolidation. Electronically signed by: Neal Ortega DO (01/14/2019 4:43 PM) [facility]
--- NOTE | 2019-01-14 17:27 | RAD ---
Exam: CT abdomen and pelvis without contrast. CT lumbar spine INDICATION: Fall, yesterday, back pain TECHNIQUE: Sequential axial images through the abdomen and pelvis obtained without IV contrast. Sagittal and coronal reformatted images were reconstructed from the axial data and reviewed. Comparisons: CT 06/23/2018 FINDINGS: Heart is enlarged. Visualized lung bases are clear. No pleural effusion. Evaluation of the solid organs is limited secondary to noncontrast technique. Liver, spleen, pancreas, gallbladder and adrenals are unremarkable. No perinephric inflammation or hydronephrosis. No renal or ureteral calculi are identified. Bladder is decompressed not well evaluated. Uterus is absent. No abnormal adnexal mass. Scattered diverticulosis is noted throughout the colon without evidence of acute diverticulitis. There is mild wall thickening noted at the rectum. Remainder of the large and small bowel are unremarkable. No obstruction. No free intra-abdominal air or fluid. Aorto biiliac stent graft is noted which appears similar in configuration when compared to the prior study. Similar size of the excluded lumen. No enlarged intra-abdominal lymph nodes are identified. No suspicious osseous lesions or acute fractures. Lumbar spine: Mild compression deformity of the inferior endplate of L1 which is new when compared to the study from June. There is less than 25 percent height loss minimal retropulsion of the inferior endplate into the spinal canal measuring approximately 3 mm. No displaced fracture to the lumbar spine is identified. Multilevel spondylotic change in the lumbar spine with degenerative disc disease greatest at L4-L5 with broad-based disc bulge extending to the neural foramina bilaterally causing at least moderate bilateral neural foraminal stenosis. IMPRESSION: 1. Compression deformity involving the inferior endplate of L1 with approximately 25 percent height loss and 3 mm retropulsion the spinal canal. This is new when compared to the prior CT on 06/23/2018. 2. Otherwise, No sequela of acute traumatic injury identified within the abdomen or pelvis. 3. Diverticulosis without evidence of acute diverticulitis. Exposure: One or more of the following in the visualized dose reduction techniques were utilized for this examination: 1. Automated exposure control 2. Adjustment of the MA and/or KV according to patient size 3. Use of iterative of reconstructive technique Electronically signed by: Gabriella Beyer MD (01/14/2019 5:24 PM) [facility]
[2019-01-14] MEDS ORDERED: ACET-704 PO (17:35)
--- NOTE | 2019-01-14 17:37 | PHYS DOC ---
Past Medical History Past Medical History: CAD, CHF, COPD, Diabetes-Type II, DVT, High Cholesterol, Hypertension, MD, Renal Disease, Renal Failure, Other Additional Past Medical Histor: dialysis MWF, O2 3LNC @ home, CPAP Past Surgical History: Angioplasty, Other Additional Past Surgical Histo: cardiac cath with stent placement, rotator cuff surgery,AV graft, cataract, Additional Information: QUIT SMOKING 13 YEARS AGO. Alcohol Use: None Drug Use: None Adult General Chief Complaint Chief Complaint: fall, low oxygen HPI HPI Patient is a 73 year old female patient with history of chronic renal failure on dialysis who presents with a fall and abdominal and back pain. Patient states she had an accidental fall yesterday and injured her lower back and her abdomen without head injury, loss of consciousness, focal neuro deficit. Patient is on 3 L of home oxygen and had O2 sat of 76 at arrival to ER triage with increased to 95% while she was in the ER room. She denies chest pain, cough, fever and chills and complaining of chronic shortness of breath without new change. Review of Systems Review of Systems Constitutional: Denies fever or chills [] Eyes: Denies change in visual acuity, redness, or eye pain [] HENT: Denies nasal congestion or sore throat [] Respiratory: Chronic cough and shortness of breath Cardiovascular: No additional information not addressed in HPI [] GI: Reports abdominal pain, denies nausea, vomiting, bloody stools or diarrhea [] : Denies dysuria or hematuria [] Musculoskeletal: Reports back pain Integument: Denies rash or skin lesions [] Neurologic: Denies headache, focal weakness or sensory changes [] Endocrine: Denies polyuria or polydipsia [] All other systems were reviewed and found to be within normal limits, except as documented in this note. Current Medications Current Medications Current Medications Medications (Trade) Dose Ordered Sig/Eric Start Time Stop Time Status Last Admin Dose Admin Albuterol/ Ipratropium (Duoneb) 3 ml 1X ONCE 01/14/19 16:45 01/14/19 16:46 DC 01/14/19 16:32 3 ML Allergies Allergies Allergies Coded Allergies Type Severity Reaction Last Updated Verified Iodinated Contrast Media Allergy Intermediate 11/06/17 Yes Physical Exam Physical Exam Constitutional: Well developed, well nourished, mild distress, non-toxic appearance. [] HENT: Normocephalic, atraumatic. Eyes: PERRLA, EOMI, conjunctiva normal, no discharge. [] Neck: Normal range of motion, no tenderness, supple, no stridor. [] Cardiovascular:Heart rate regular rhythm, no murmur [] Lungs & Thorax: Decrease of air movement bilaterally without respiratory distress Abdomen: Bowel sounds normal, soft, no tenderness, no masses, no pulsatile masses. [] Skin: Warm, dry, no erythema, no rash. [] Back: lumbar midline tenderness, no CVA tenderness. [] Extremities: No tenderness, no cyanosis, no clubbing, ROM intact, no edema. [] Neurologic: Alert and oriented X 3, no focal deficits noted. [] Psychologic: Affect normal, judgement normal, mood normal. [] Current Patient Data Vital Signs Vital Signs Date Time Temp Pulse Resp B/P (MAP) Pulse Ox O2 Delivery O2 Flow Rate FiO2 01/14/19 17:43 66 18 155/70 (98) 95 Nasal Cannula 3.0 01/14/19 16:02 97.9 97.9 Lab Values Laboratory Tests Test 01/14/19 16:10 White Blood Count 3.5 x10^3/uL (4.0-11.0) L Red Blood Count 3.65 x10^6/uL (3.50-5.40) Hemoglobin 11.7 g/dL (12.0-15.5) L Hematocrit 37.9 % (36.0-47.0) Mean Corpuscular Volume 104 fL (79-100) H Mean Corpuscular Hemoglobin 32 pg (25-35) Mean Corpuscular Hemoglobin Concent 31 g/dL (31-37) Red Cell Distribution Width 15.0 % (11.5-14.5) H Platelet Count 197 x10^3/uL (140-400) Neutrophils (%) (Auto) 72 % (31-73) Lymphocytes (%) (Auto) 15 % (24-48) L Monocytes (%) (Auto) 10 % (0-9) H Eosinophils (%) (Auto) 3 % (0-3) Basophils (%) (Auto) 1 % (0-3) Neutrophils # (Auto) 2.5 x10^3/uL (1.8-7.7) Lymphocytes # (Auto) 0.5 x10^3/uL (1.0-4.8) L Monocytes # (Auto) 0.3 x10^3/uL (0.0-1.1) Eosinophils # (Auto) 0.1 x10^3/uL (0.0-0.7) Basophils # (Auto) 0.0 x10^3/uL (0.0-0.2) Sodium Level 138 mmol/L (136-145) Potassium Level 5.1 mmol/L (3.5-5.1) Chloride Level 107 mmol/L (98-107) Carbon Dioxide Level 18 mmol/L (21-32) L Anion Gap 13 (6-14) Blood Urea Nitrogen 14 mg/dL (7-20) Creatinine 3.9 mg/dL (0.6-1.0) H Estimated GFR (Cockcroft-Gault) 13.6 BUN/Creatinine Ratio 4 (6-20) L Glucose Level 94 mg/dL (70-99) Lactic Acid Level 1.2 mmol/L (0.4-2.0) Calcium Level 8.6 mg/dL (8.5-10.1) Total Bilirubin 0.4 mg/dL (0.2-1.0) Aspartate Amino Transferase (AST) 26 U/L (15-37) Alanine Aminotransferase (ALT) 12 U/L (14-59) L Alkaline Phosphatase 107 U/L (46-116) Creatine Kinase 142 U/L (26-192) Troponin I Quantitative 0.042 ng/mL (0.000-0.055) IJ-Nmf-M-Type Natriuretic Peptide > 74032 pg/mL (0-449) H Total Protein 6.8 g/dL (6.4-8.2) Albumin 3.0 g/dL (3.4-5.0) L Albumin/Globulin Ratio 0.8 (1.0-1.7) L Lipase 311 U/L (73-393) Laboratory Tests 01/14/19 16:10 Laboratory Tests 01/14/19 16:10 EKG EKG EKG interpreted by me. EKG at 1607 showed normal sinus rhythm with multiple artifact, abnormal left axis deviation, right bundle branch block, RVH, Q waves in inferior leads, no acute ST and T-wave elevation. Radiology/Procedures Radiology/Procedures [][facility] [address] [place] [address] IMAGING REPORT Signed PATIENT: WANDA PRABHAKAR ACCOUNT: [id number] : 1945 LOCATION: ER AGE: 73 SEX: F EXAM STATUS: REG ER ORD. PHYSICIAN: BONIFACIO PERES MD REASON: FALL YESTERDAY, BACK PAIN, ABDOMEN PAIN PROCEDURE: CT ABDOMEN PELVIS WO CONTRAST Exam: CT abdomen and pelvis without contrast. CT lumbar spine INDICATION: Fall, yesterday, back pain TECHNIQUE: Sequential axial images through the abdomen and pelvis obtained without IV contrast. Sagittal and coronal reformatted images were reconstructed from the axial data and reviewed. Comparisons: CT 06/23/2018 FINDINGS: Heart is enlarged. Visualized lung bases are clear. No pleural effusion. Evaluation of the solid organs is limited secondary to noncontrast technique. Liver, spleen, pancreas, gallbladder and adrenals are unremarkable. No perinephric inflammation or hydronephrosis. No renal or ureteral calculi are identified. Bladder is decompressed not well evaluated. Uterus is absent. No abnormal adnexal mass. Scattered diverticulosis is noted throughout the colon without evidence of acute diverticulitis. There is mild wall thickening noted at the rectum. Remainder of the large and small bowel are unremarkable. No obstruction. No free intra-abdominal air or fluid. Aorto biiliac stent graft is noted which appears similar in configuration when compared to the prior study. Similar size of the excluded lumen. No enlarged intra-abdominal lymph nodes are identified. No suspicious osseous lesions or acute fractures. Lumbar spine: Mild compression deformity of the inferior endplate of L1 which is new when compared to the study from June. There is less than 25 percent height loss minimal retropulsion of the inferior endplate into the spinal canal measuring approximately 3 mm. No displaced fracture to the lumbar spine is identified. Multilevel spondylotic change in the lumbar spine with degenerative disc disease greatest at L4-L5 with broad-based disc bulge extending to the neural foramina bilaterally causing at least moderate bilateral neural foraminal stenosis. IMPRESSION: 1. Compression deformity involving the inferior endplate of L1 with approximately 25 percent height loss and 3 mm retropulsion the spinal canal. This is new when compared to the prior CT on 06/23/2018. 2. Otherwise, No sequela of acute traumatic injury identified within the abdomen or pelvis. 3. Diverticulosis without evidence of acute diverticulitis. Exposure: One or more of the following in the visualized dose reduction techniques were utilized for this examination: 1. Automated exposure control 2. Adjustment of the MA and/or KV according to patient size 3. Use of iterative of reconstructive technique Electronically signed by: Gabriella Harper MD (01/14/2019 5:24 PM) [facility] DICTATED and SIGNED BY: GABRIELLA HARPER MD DATE: 01/14/19 172 [facility] [address] [place] [address] IMAGING REPORT Signed PATIENT: WANDA PRABHAKAR ACCOUNT: [id number] : 1945 LOCATION: ER AGE: 73 SEX: F EXAM STATUS: REG ER ORD. PHYSICIAN: BONIFACIO PERES MD REASON: hypoxia PROCEDURE: PORTABLE CHEST 1V PORTABLE CHEST 1V History: Hypoxia Comparison: January 09, 2019 Findings: Cardiomegaly, unchanged. No consolidation or pleural effusion. No pneumothorax. Impression: 1. Cardiomegaly, unchanged. No new consolidation. Electronically signed by: Neal Ortega DO (01/14/2019 4:43 PM) [facility] DICTATED and SIGNED BY: NEAL ORTEGA DO DATE: 01/14/19 1643 Course & Med Decision Making Course & Med Decision Making Pertinent Labs and Imaging studies reviewed. (See chart for details) Evaluation of patient in ER showed 73-year-old female patient with history of chronic renal failure on dialysis and complaining of a fall at home and back pain. Patient had O2 sat of 76% at arrival to ER that increased to 95% with 3 L of home oxygen. Patient had unremarkable physical exam. Labs showed chronic renal failure and anemia. Patient had acute lumbar compression fracture without neurovascular deficit. Patient felt better in ER and feels comfortable to go home. I've spoken with the patient and/or caregivers. I've explained the patient's condition, diagnosis and treatment plan based on information available to me at this time. I've answered the patient's and/or caregivers questions and addressed any concerns. The patient and/or caregivers have a good understanding the patient's diagnosis, condition and treatment plan as can be expected at this point. Vital signs have been stabilized. The patient's condition is stable for discharge from the emergency department. The patient will pursue further outpatient evaluation with her primary care provider or other designated consulting physician as outlined in the discharge instructions. Patient and/or caregivers are agreeable to this plan of care and follow-up instructions have been explained in detail. The patient and/or caregi vers have received these instructions in written format and expressed understanding of these discharge instructions. The patient and her caregivers are aware that if any significant change in condition or worsening of symptoms should prompt him to immediately return to this of the closest emergency department. If an emergent department is not readily available I would encourage him to call 911. Johanon Disclaimer Dragon Disclaimer This electronic medical record was generated, in whole or in part, using a voice recognition dictation system. Departure Departure Impression: Primary Impression: Compression fracture of lumbosacral spine Additional Impressions: Fall at home Chronic kidney disease with end stage renal failure on dialysis Anemia Cardiomyopathy SOB (shortness of breath) Disposition: HOME, SELF-CARE (at 1734) Condition: IMPROVED Referrals: BERTO TORRES MD (PCP) Patient Instructions: Back, Compression Fracture, Fall Prevention and Home Safety Additional Instructions: Apply ice on your back Follow-up with your primary care physician in 3-5 days Return to ER if not getting better Scripts Acetaminophen With Codeine (TYLENOL WITH CODEINE #3 TABLET) 1 Each Tablet 1 TAB PO PRN Q6HRS PRN for PAIN, #15 TAB Prov: BONIFACIO PERES MD 01/14/19 Problem Qualifiers Primary Impression: Compression fracture of lumbosacral spine Encounter type: initial encounter Fracture type: closed Qualified Codes: S32.000A - Wedge compression fracture of unspecified lumbar vertebra, initial encounter for closed fracture Additional Impressions: Fall at home Encounter type: subsequent encounter Qualified Codes: W19.XXXD - Unspecified fall, subsequent encounter; Y92.009 - Unspecified place in unspecified non-institutional (private) residence as the place of occurrence of the external cause Anemia Anemia type: unspecified type Qualified Codes: D64.9 - Anemia, unspecified Cardiomyopathy Cardiomyopathy type: unspecified Qualified Codes: I42.9 - Cardiomyopathy, unspecified BONIFACIO PERES MD Jan 14, 2019 17:37
[2019-01-14 17:43] VITALS: BP 155/70
--- NOTE | 2019-01-14 18:16 | EKG ---
[facility] [address] [place] [address] Test Date: 2019-01-14 Test Time: 16:07:31 Pat Name: WANDA PRABHAKAR Department: Room: Gender: F Driver: : 1945 Requested By: BONIFACIO PERES Order Number: [id number] Reading MD: Measurements Intervals Dagmar Rate: 62 P: WI: QRS: -60 QRSD: 154 T: 81 QT: 460 QTc: 474 Interpretive Statements ATRIAL FIBRILLATION ABNORMAL LEFT AXIS DEVIATION RIGHT BUNDLE BRANCH BLOCK RVH WITH REPOLARIZATION ABNORMALITY QRS(T) CONTOUR ABNORMALITY CONSISTENT WITH INFERIOR INFARCT POSSIBLY RECENT ABNORMAL ECG No previous ECG available for comparison
== END 2019-01-14 17:45 | disposition home or self-care (01) ==
LOC: ER 16:02
DX: S32.000A Wedge compression fracture of unspecified lumbar vertebra, initial encounter for closed fracture (principal); D64.9 Anemia, unspecified; I42.9 Cardiomyopathy, unspecified; E11.22 Type 2 diabetes mellitus with diabetic chronic kidney disease; I13.2 Hypertensive heart and chronic kidney disease with heart failure and with stage 5 chronic kidney disease, or end stage renal disease; I50.9 Heart failure, unspecified; N18.6 End stage renal disease; Z99.2 Dependence on renal dialysis; R06.02 Shortness of breath; I25.10 Atherosclerotic heart disease of native coronary artery without angina pectoris; J44.9 Chronic obstructive pulmonary disease, unspecified; E78.00 Pure hypercholesterolemia, unspecified; I25.2 Old myocardial infarction; Z86.718 Personal history of other venous thrombosis and embolism; Z87.891 Personal history of nicotine dependence; Z95.5 Presence of coronary angioplasty implant and graft; Z91.041 Radiographic dye allergy status; W18.39XA Other fall on same level, initial encounter; Y93.89 Activity, other specified; Y92.89 Other specified places as the place of occurrence of the external cause; Y99.8 Other external cause status
CPT/HCPCS: 36415; 71045; 74176; 80053; 82550; 83605; 83690; 83880; 84484; 85025; 93005; 94640; 99285; J7620

== ENCOUNTER 2019-01-16 04:53 | Inpatient (IN) | payer MEDICARE ==
[~2019-01-16] VITALS: Ht 156.2 cm; Wt 61.2 kg
[~2019-01-16 04:53] MED LIST changes: +ACET-704 PO
--- NOTE | 2019-01-16 05:04 | PHYS DOC ---
Past Medical History Past Medical History: CAD, CHF, COPD, Diabetes-Type II, DVT, High Cholesterol, Hypertension, MO, Renal Disease, Renal Failure, Other Additional Past Medical Histor: dialysis MWF, O2 3LNC @ home, CPAP Past Surgical History: Angioplasty, Other Additional Past Surgical Histo: cardiac cath with stent placement, rotator cuff surgery,AV graft, cataract, Alcohol Use: None Drug Use: None Adult General Chief Complaint Chief Complaint: BACK PAIN OR INJURY HPI HPI Patient is a 73-year-old female with a history of end-stage renal disease on dialysis who is also wearing a life vest secondary to symptomatic bradycardia who presents with intractable back pain via EMS. Apparently last week she had a fall at home and injured her back. She was seen in the emergency department given pain medicine and ultimately prescribed Tylenol with Codeine. She states she has taken the pills but they have not had an impact on the pain in her back. Today because of the pain she was really unable to get up and move around. She states she is unable to perform her activities of daily living secondary to the severity of her pain. She denies any radicular symptoms. She denies any bowel or bladder dysfunction. She denies any saddle paresthesia.[] Review of Systems Review of Systems Constitutional: Denies fever or chills [] Eyes: Denies change in visual acuity, redness, or eye pain [] HENT: Denies nasal congestion or sore throat [] Respiratory: Denies cough or shortness of breath [] Cardiovascular: No additional information not addressed in HPI [] GI: Denies abdominal pain, nausea, vomiting, bloody stools or diarrhea [] : Denies dysuria or hematuria [] Musculoskeletal: Reports back pain[] Integument: Denies rash or skin lesions [] Neurologic: Denies headache, focal weakness or sensory changes [] Endocrine: Denies polyuria or polydipsia [] All other systems were reviewed and found to be within normal limits, except as documented in this note. Current Medications Current Medications Allergies Allergies Allergies Coded Allergies Type Severity Reaction Last Updated Verified Iodinated Contrast Media Allergy Intermediate 11/06/17 Yes Physical Exam Physical Exam Constitutional: Well developed, well nourished, moderate distress distress, non- toxic appearance. [] HENT: Normocephalic, atraumatic, bilateral external ears normal, oropharynx moist, no oral exudates, nose normal. [] Eyes: PERRLA, EOMI, conjunctiva normal, no discharge. [] Neck: Normal range of motion, no tenderness, supple, no stridor. [] Cardiovascular:Heart rate regular rhythm, no murmur [] Lungs & Thorax: Bilateral breath sounds clear to auscultation [] Abdomen: Bowel sounds normal, soft, no tenderness, no masses, no pulsatile masses. [] Skin: Warm, dry, no erythema, no rash. [] Back: Tenderness around the lumbar spine] Extremities: No tenderness, no cyanosis, no clubbing, ROM intact, no edema. [] Neurologic: Alert and oriented X 3, normal motor function, normal sensory function, no focal deficits noted. [] Psychologic: Depressed affect. [] Current Patient Data Vital Signs Vital Signs Date Time Temp Pulse Resp B/P (MAP) Pulse Ox O2 Delivery O2 Flow Rate FiO2 01/16/19 04:55 69 122/57 (78) 100 Nasal Cannula 3.0 01/16/19 04:53 98.4 17 98.4 EKG EKG [] Radiology/Procedures Radiology/Procedures [] Impressions: PROCEDURE: CT LUMBAR SPINE RECONSTRUCTION Exam: CT abdomen and pelvis without contrast. CT lumbar spine INDICATION: Fall, yesterday, back pain TECHNIQUE: Sequential axial images through the abdomen and pelvis obtained without IV contrast. Sagittal and coronal reformatted images were reconstructed from the axial data and reviewed. Comparisons: CT 06/23/2018 FINDINGS: Heart is enlarged. Visualized lung bases are clear. No pleural effusion. Evaluation of the solid organs is limited secondary to noncontrast technique. Liver, spleen, pancreas, gallbladder and adrenals are unremarkable. No perinephric inflammation or hydronephrosis. No renal or ureteral calculi are identified. Bladder is decompressed not well evaluated. Uterus is absent. No abnormal adnexal mass. Scattered diverticulosis is noted throughout the colon without evidence of acute diverticulitis. There is mild wall thickening noted at the rectum. Remainder of the large and small bowel are unremarkable. No obstruction. No free intra-abdominal air or fluid. Aorto biiliac stent graft is noted which appears similar in configuration when compared to the prior study. Similar size of the excluded lumen. No enlarged intra-abdominal lymph nodes are identified. No suspicious osseous lesions or acute fractures. Lumbar spine: Mild compression deformity of the inferior endplate of L1 which is new when compared to the study from June. There is less than 25 percent height loss minimal retropulsion of the inferior endplate into the spinal canal measuring approximately 3 mm. No displaced fracture to the lumbar spine is identified. Multilevel spondylotic change in the lumbar spine with degenerative disc disease greatest at L4-L5 with broad-based disc bulge extending to the neural foramina bilaterally causing at least moderate bilateral neural foraminal stenosis. IMPRESSION: 1. Compression deformity involving the inferior endplate of L1 with approximately 25 percent height loss and 3 mm retropulsion the spinal canal. This is new when compared to the prior CT on 06/23/2018. 2. Otherwise, No sequela of acute traumatic injury identified within the abdomen or pelvis. 3. Diverticulosis without evidence of acute diverticulitis. Course & Med Decision Making Course & Med Decision Making Pertinent Labs and Imaging studies reviewed. (See chart for details) [ED course: Evaluation reveals a 73-year-old female in considerable pain secondary to a known L5 compression fracture. She was unable to perform her activities daily living. This morning she was unable to go to dialysis secondary to her pain. I think is prudent to get her in the hospital get her pain under control make sure nephrology sees her performance her dialysis. Given the fact that she is wearing a life vest and has a history of symptomatic bradycardia will put her in the CVC for close monitoring.] Dragon Disclaimer Dragon Disclaimer This electronic medical record was generated, in whole or in part, using a voice recognition dictation system. Departure Departure Impression: Primary Impression: Intractable back pain Additional Impressions: Symptomatic bradycardia End stage renal disease on dialysis Compression fracture of L1 lumbar vertebra Disposition: ADMITTED INPATIENT Admitting Physician: HIMS Condition: STABLE Referrals: BERTO TORRES MD (PCP) Problem Qualifiers Additional Impressions: Compression fracture of L1 lumbar vertebra Encounter type: initial encounter Qualified Codes: S32.010A - Wedge compression fracture of first lumbar vertebra, initial encounter for closed fracture ROSE JHAVERI DO Jan 16, 2019 05:04
[2019-01-16] MEDS ORDERED: ACETAMINOPHEN 325 MG TABLET. PO PRN (05:15)
[2019-01-16] MEDS ORDERED: ONDANSETRON PF 4 MG/2 ML VIAL. IV PRN (05:15)
[2019-01-16] MEDS ORDERED: ONDANSETRON PF 4 MG/2 ML VIAL. IV ONE (05:15)
[2019-01-16] MEDS ORDERED: fentaNYL PF VIAL 100 MCG/2 ML VIAL IV PRN (05:15)
[2019-01-16] MEDS ORDERED: fentaNYL PF VIAL 100 MCG/2 ML VIAL IV ONE (05:15)
[2019-01-16 05:31] LABS: BASO # 0.1 x10^3/uL (0.0-0.2); BASO % 1 % (0-3); EOS # 0.1 x10^3/uL (0.0-0.7); EOS % 2 % (0-3); HEMATOCRIT 35.5 % (36.0-47.0); LYMPH # 0.5 x10^3/uL (1.0-4.8); LYMPH % 8 % (24-48); MEAN CORPUSCULAR HEMOGLOBIN 32 pg (25-35); MEAN CORPUSCULAR HGB CONC 31 g/dL (31-37); MEAN CORPUSCULAR VOLUME 104 fL (79-100); MONO # 0.5 x10^3/uL (0.0-1.1); MONO % 9 % (0-9); NEUT # 4.8 x10^3/uL (1.8-7.7); NEUT % 80 % (31-73); PLATELET COUNT 182 x10^3/uL (140-400); RED BLOOD COUNT 3.42 x10^6/uL (3.50-5.40); RED CELL DISTRIBUTION WIDTH 14.5 % (11.5-14.5)
[2019-01-16 05:39] LABS: CALCIUM 8.7 mg/dL (8.5-10.1); CREATININE 7.9 mg/dL (0.6-1.0)
[2019-01-16 05:44] LABS: ALBUMIN 2.8 g/dL (3.4-5.0); ALBUMIN/GLOBULIN RATIO 0.8 (1.0-1.7); TOTAL BILIRUBIN 0.3 mg/dL (0.2-1.0); TOTAL PROTEIN 6.3 g/dL (6.4-8.2)
[2019-01-16 05:49] LABS: POTASSIUM 5.9 mmol/L (3.5-5.1)
[2019-01-16 06:25] VITALS: BP 154/72
[2019-01-16] MEDS ORDERED: DEXTROSE 50% 25 GM / 50ML DISP.SYRIN. IV ONE (07:43)
[2019-01-16] MEDS: DEXTROSE 50% 25 GM / 50ML DISP.SYRIN. IV PRN (07:46)
--- NOTE | 2019-01-16 10:06 | PDOC2 ---
SHANA VIRK SALESPERSON [employer]IC 01/16/19 1006: CARDIAC CONSULT DATE OF CONSULT Date of Consult DATE: 01/16/19 TIME: 09:55 REASON FOR CONSULT Reason for Consult: Bradycardia with lifevest REFERRING PHYSICIAN Referring Physician: Tyrone SOURCE Source: Chart review, Patient HISTORY OF PRESENT ILLNESS HISTORY OF PRESENT ILLNESS This is a pleasant 73 yo female admitted for complains of back pain and fall. Reports that Monday she was walking and her legs just got weak and fell on the floor landing on her butt. No complains of dizziness or passing out. Denies any chest pain or SOA. Daughter reports and has concern that at some point from her prior admission that she checked her with finger and BP monitor and was noted with HR in the 20s but pt was not symptomatic at that time. Accdg to Lifevest there was no significant bradycardia and per recent HR check through lifevest no significnat bradycardia was noted. Presently pt does not have cardiac symptoms and complaining of her lower back pain. PAST MEDICAL HISTORY Past Medical History Cardiovascular: CAD, CHF, HTN, Hyperlipidemia, Pulmonary hypertension, AFIB Pulmonary: Asthma, COPD, PNA, PENNY CENTRAL NERVOUS SYSTEM: Other (no pertinent hx) GI: GERD, esophagitis, hiatal hernia Heme/Onc: Anemia NOS, Other (DVT) Renal/: Chronic renal failure on HD, hyperkalemia Endocrine: Diabetes Dermatology: No pertinent hx PAST SURGICAL HISTORY Past Surgical History Appendectomy, Other (left rotator cuff sx), Other (PVD s/p BLADDER TRIMMER/stent to left c ommon iliac artery, endovascular AAA repair) FAMILY HISTORY Family History Coronary Artery Disease, Diabetes SOCIAL HISTORY Social History Smoke: Quit ALCOHOL: none Drugs: None Lives: with Family CURRENT MEDICATIONS CURRENT MEDICATIONS Current Medications Medications (Trade) Dose Ordered Sig/Eric Route PRN Reason Start Time Stop Time Status Last Admin Dose Admin Fentanyl Citrate (Fentanyl 2ml Vial) 50 mcg 1X ONCE IV 01/16/19 05:15 01/16/19 05:16 DC 01/16/19 05:35 Ondansetron HCl (Zofran) 4 mg 1X ONCE IV 01/16/19 05:15 01/16/19 05:16 DC 01/16/19 05:34 Dextrose (Dextrose 50%-Water Syringe) 12.5 gm PRN Q15MIN PRN IV SEE COMMENTS 01/16/19 07:45 01/16/19 07:46 ALLERGIES ALLERGIES: Coded Allergies: Iodinated Contrast Media (Verified Allergy, Intermediate, 11/06/17) ROS Review of System 14 point ROS evaluated with pertinent positives noted per HPI PHYSICAL EXAM General: Alert, Oriented X3, Cooperative, No acute distress HEENT: Atraumatic, Mucous membr. moist/pink Lungs: Clear to auscultation, Normal air movement Heart: Regular rate (SR/SB 50s), Normal S1, Normal S2, Other (4/6 systolic murmur to LLS border) Abdomen: Soft, No tenderness Extremities: No cyanosis, No edema Skin: No breakdown, No significant lesion Neuro: Normal speech, Sensation intact Psych/Mental Status: Mental status NL, Mood NL MUSCULOSKELETAL: Osteoarthritic changes both hands VITALS/I&O VITALS/I&O: Vital Signs Date Time Temp Pulse Resp B/P (MAP) Pulse Ox O2 Delivery O2 Flow Rate FiO2 01/16/19 08:00 Nasal Cannula 3.0 01/16/19 06:25 98.2 71 22 154/72 (99) 94 98.2 LABS Lab: Laboratory Tests Test 01/16/19 05:15 01/16/19 07:38 01/16/19 08:09 White Blood Count 6.0 x10^3/uL (4.0-11.0) Red Blood Count 3.42 x10^6/uL (3.50-5.40) L Hemoglobin 11.0 g/dL (12.0-15.5) L Hematocrit 35.5 % (36.0-47.0) L Mean Corpuscular Volume 104 fL (79-100) H Mean Corpuscular Hemoglobin 32 pg (25-35) Mean Corpuscular Hemoglobin Concent 31 g/dL (31-37) Red Cell Distribution Width 14.5 % (11.5-14.5) Platelet Count 182 x10^3/uL (140-400) Neutrophils (%) (Auto) 80 % (31-73) H Lymphocytes (%) (Auto) 8 % (24-48) L Monocytes (%) (Auto) 9 % (0-9) Eosinophils (%) (Auto) 2 % (0-3) Basophils (%) (Auto) 1 % (0-3) Neutrophils # (Auto) 4.8 x10^3/uL (1.8-7.7) Lymphocytes # (Auto) 0.5 x10^3/uL (1.0-4.8) L Monocytes # (Auto) 0.5 x10^3/uL (0.0-1.1) Eosinophils # (Auto) 0.1 x10^3/uL (0.0-0.7) Basophils # (Auto) 0.1 x10^3/uL (0.0-0.2) Sodium Level 144 mmol/L (136-145) Potassium Level 5.9 mmol/L (3.5-5.1) H Chloride Level 112 mmol/L (98-107) H Carbon Dioxide Level 18 mmol/L (21-32) L Anion Gap 14 (6-14) Blood Urea Nitrogen 37 mg/dL (7-20) H Creatinine 7.9 mg/dL (0.6-1.0) H Estimated GFR (Cockcroft-Gault) 6.0 BUN/Creatinine Ratio 5 (6-20) L Glucose Level 69 mg/dL (70-99) L Calcium Level 8.7 mg/dL (8.5-10.1) Total Bilirubin 0.3 mg/dL (0.2-1.0) Aspartate Amino Transferase (AST) 19 U/L (15-37) Alanine Aminotransferase (ALT) 13 U/L (14-59) L Alkaline Phosphatase 100 U/L (46-116) Total Protein 6.3 g/dL (6.4-8.2) L Albumin 2.8 g/dL (3.4-5.0) L Albumin/Globulin Ratio 0.8 (1.0-1.7) L Glucose (Fingerstick) 49 mg/dL (70-99) L 169 mg/dL (70-99) H Laboratory Tests 01/16/19 05:15 Laboratory Tests 01/16/19 05:15 ASSESSMENT/PLAN ASSESSMENT/PLAN 1. Low back pain with traumatic mechanical fall: resulting to L1 compression fracture 2. Known asymptomatic SB: Lower HR noted in the past associated with hyperkalemic episode. Otherwise lifevest check unrevelaing of any significant bradyarrhythmias. 3. NICM/chronic systolic CHF: compensated EF 35% NYHA 2 4. PAFIB: SR/SB, lowest 50s. 5. Hypertension; controlled 6. ESRD with hyperkalemia: valtessa suggested before 7. CAD s/p PCI/stent to the RCA: Cath earlier this year with non-obstructive CAD, clnically stable 8. PENNY: intolerant to CPAP 9. DM2/HLP 10. PAD s/p BLADDER TRIMMER/stent to the left common iliac artery. No claudication symptoms 11. Chronic RBBB Recommendation 1. Fluid off loading per HD. Consider Valtessa use. 2. Continue amiodarone and toprol. 3. Continue with secondary prevention. Hold off eliquis until neurosurgery evaluates pt. 4. ASA. Not an ideal candidate for ACEi/ARB due to hyperkalemia episodes despite HD. 5. Continue lifevest. 6. Future DIP GUIDER STOVES-D consideration as an outpt after sufficient optimization. FRANK REED MD 01/17/19 0851: CARDIAC CONSULT ASSESSMENT/PLAN ASSESSMENT/PLAN Patient seen and examined 01/16/19. Agree with MACHINE II COREMAKER's assessment and plan. Patient with L1 compression fracture post mechanical fall She denied any syncope as such Lifevest transmissions did not show any significant bradycardias CAD status clinically stable Chronic systolic heart failure compensated PAF maintaining sinus rhythm Continue fluid removal with hemodialysis per nephrology team Thank you for your consultation SHANA VIRK APRN Jan 16, 2019 10:06 FRANK REED MD Jan 17, 2019 08:51
[2019-01-16 10:39] VITALS: BP 134/62
--- NOTE | 2019-01-16 13:42 | HP ---
ADMIT DATE: 01/16/2019 CHIEF COMPLAINT: Fall with back pain and chest pain. HISTORY OF PRESENT ILLNESS: The patient is a pleasant elderly female, who we just discharged a few days ago. At this time, she fell. Now she has a compression fracture. She is on dialysis. We also have an extensive cardiac evaluation in progress because she needs a defibrillator, but she cannot qualify for it until we put her on a LifeVest for 90 days with outpatient medical management. The patient states she can afford the pills to the medical management though. Basically, we are going to admit the patient and have Dr. Bower look at her back and have Cardiology reevaluate the possibility of putting an AICD soon. PAST MEDICAL HISTORY: End-stage renal disease, hypertension, hyperlipidemia, coronary artery disease, CHF, asthma, chronic anticoagulation, arrhythmias, and hyperlipidemia. ALLERGIES: IODINE. FAMILY HISTORY: Coronary artery disease. SOCIAL HISTORY: She does not drink, smoke or take drugs. MEDICATIONS: Reviewed. Please refer to the MRAD. REVIEW OF SYSTEMS: GENERAL: No history of weight change, weakness or fevers. SKIN: No bruising, hair changes or rashes. EYES: No blurred, double or loss of vision. NOSE AND THROAT: No history of nosebleeds, hoarseness or sore throat. HEART: No history of palpitations, chest pain or shortness of breath on exertion. LUNGS: Denies cough, hemoptysis, wheezing or shortness of breath. GASTROINTESTINAL: Denies changes in appetite, nausea, vomiting, diarrhea or constipation. GENITOURINARY: No history of frequency, urgency, hesitancy or nocturia. NEUROLOGIC: Denies history of numbness, tingling, tremor or weakness. PSYCHIATRIC: No history of panic, anxiety or depression. ENDOCRINE: No history of heat or cold intolerance, polyuria or polydipsia. EXTREMITIES: Denies muscle weakness, joint pain, pain on walking or stiffness. MUSCULOSKELETAL: She complains of back pain. PHYSICAL EXAMINATION: VITALS: Within normal limits and are stable. GENERAL: No apparent distress. Alert and oriented. HEENT: Head is normocephalic, atraumatic, pupils were equally round and reactive to light and accommodation. NECK: Supple, no JVD, no thyromegaly was noted. LUNGS: Clear to auscultation in all lung gonzalez without rhonchi or wheezing. HEART: RRR, S1, S2 present. Peripheral pulses intact, no obvious murmurs were noted. ABDOMEN: Soft, nontender. Positive bowel sounds no organomegaly, normal bowel sounds. EXTREMITIES: Without any cyanosis, clubbing, or edema. Pedal pulses intact, Homans sign is negative. NEUROLOGIC: Normal speech, normal tone. A & O x3, moves all extremities, no obvious focal deficits. PSYCHIATRIC: Normal affect, normal mood. Stable. SKIN: No ulcerations or rashes, good skin turgor, no jaundice. VASCULAR: Good capillary refill, neurovascular bundle appears to be intact. LABORATORY DATA: Hemoglobin is 11. Potassium is 5.9, BUN 37, creatinine 7.9, and glucose 69. ASSESSMENT AND PLAN: Intractable back pain secondary to fall with compression fracture in an elderly female, who is awaiting AICD placement. She is going to be admitted. We will consult Cardiology, consult Nephrology, and consult Neurosurgery. Every other day dialysis, PT/OT, home meds, p.r.n. nitro, cardiac monitoring, serial enzymes, and serial EKGs. YULIA DE ANDA DO DR: MAGO/courtney JOB#: [id number] / [id number]
[2019-01-16] MEDS ORDERED: IV NORMAL SALINE 1000ML BAG 1,000 ML IV PRN ×2 (13:55)
[2019-01-16] MEDS ORDERED: DIALYSIS PATIENT. MC PRN (14:00)
[2019-01-16] MEDS ORDERED: ACETAMINOPHEN 500 MG TABLET PO PRN (14:00)
[2019-01-16] MEDS ORDERED: LABETALOL 20 MG/4 ML DISP.SYRIN. IVP PRN (14:00)
[2019-01-16] MEDS ORDERED: LIDOCAINE 1% PF 2 ML VIAL. ONE ×2 (14:00→14:03)
[2019-01-16] MEDS ORDERED: diphenhydrAMINE 50 MG/ML VIAL IV PRN ×2 (14:00)
--- NOTE | 2019-01-16 14:01 | PDOC2 ---
CONSULT Date of Consult Date of Consult DATE: 01/16/19 TIME: 13:53 Reason for Consult Reason for Consult: HYPERKALEMIA AND ESRD Referring Physician Referring Physician: ADILSON Identification/Chief Complaint Chief Complaint BACK PAIN AND FALL Source Source: Chart review, Patient History of Present Illness Reason for Visit: THIS IS A 73 YR OLD ESRD PT WITH BACK PAIN SO BAD SHE COULD NOT MOVE AROUND. SHE APPARENTLY HAD A MECHANICAL FALL AT HOME. SHE HAS HIGH K AND ESRD. LABS ARE C/W HER ESRD. THERE IS QUESTION OF BRADYCARDIA WELL. CURRENTLY UNDERGOING CARDIOLOGY EVALUATION. ESRD DUE TO HTN HX. SHE HAS A LEFT FA LOOP GRAFT FOR HER DIALYSIS. Past Medical History Cardiovascular: AFIB, CAD, CHF, HTN, Hyperlipidemia, Other Pulmonary: Asthma, COPD, Other CENTRAL NERVOUS SYSTEM: Other GI: Diverticulosis Heme/Onc: Anemia NOS Psych: Anxiety Rheumatologic: No pertinent hx Infectious disease: No pertinent hx Renal/: Chronic renal failure Endocrine: Diabetes, Hyperparathyroidism Past Surgical History Past Surgical History: Appendectomy, Arthroscopy, Cataract Removal, Other Family History Family History: Coronary Artery Disease, Diabetes Social History ALCOHOL: none Drugs: None Lives: with Family Domestic Violence: Neg Current Problem List Problem List Problems Medical Problems: (1) Compression fracture of L1 lumbar vertebra Status: Acute (2) Compression fracture of L5 vertebra Status: Acute (3) End stage renal disease on dialysis Status: Acute (4) Symptomatic bradycardia Status: Acute Current Medications Current Medications Current Medications Fentanyl Citrate (Fentanyl 2ml Vial) 50 mcg 1X ONCE IV Last administered on 01/16/19at 05:35; Start 01/16/19 at 05:15; Stop 01/16/19 at 05:16; Status DC Ondansetron HCl (Zofran) 4 mg 1X ONCE IV Last administered on 01/16/19at 05:34; Start 01/16/19 at 05:15; Stop 01/16/19 at 05:16; Status DC Ondansetron HCl (Zofran) 4 mg PRN Q8HRS PRN IV NAUSEA/VOMITING; Start 01/16/19 at 05:15; Stop 01/17/19 at 05:14 Fentanyl Citrate (Fentanyl 2ml Vial) 50 mcg PRN Q1HR PRN IV PAIN; Start 01/16/19 at 05:15; Stop 01/17/19 at 05:14 Acetaminophen (Tylenol) 650 mg PRN Q4HRS PRN PO FEVER; Start 01/16/19 at 05:15; Stop 01/17/19 at 05:14 Dextrose (Dextrose 50%-Water Syringe) 12.5 gm PRN Q15MIN PRN IV SEE COMMENTS Last administered on 01/16/19at 07:46; Start 01/16/19 at 07:45 Dextrose (Dextrose 50%-Water Syringe) 25 gm STK-MED ONCE IV ; Start 01/16/19 at 07:43; Stop 01/16/19 at 07:43; Status DC Active Scripts Active Tylenol With Codeine #3 Tablet (Acetaminophen/Codeine Phosphate) 1 Each Tablet 1 Tab PO PRN Q6HRS PRN Amiodarone Hcl 200 Mg Tablet 200 Mg PO DAILY 30 Days Eliquis (Apixaban) 5 Mg Tablet 5 Mg PO BID MDD ` Reported Aspirin 81 Mg Tab.chew 1 Tab PO DAILY Lipitor (Atorvastatin Calcium) 40 Mg Tablet 40 Mg PO HS Furosemide 40 Mg Tablet 40 Mg PO DAILY Symbicort 160-4.5 Mcg Inhaler (Budesonide/Formoterol Fumarate) 10.2 Gm Hfa.aer.ad 2 Puff IH BID Toprol Xl (Metoprolol Succinate) 100 Mg Tab.er.24h 100 Mg PO DAILY Proair Hfa Inhaler (Albuterol Sulfate) 8.5 Gm Hfa.aer.ad 1 Puff INH PRN Q6HRS PRN Marina-Jayme Tablet (Folic Acid/Vitamin B Comp W-C) 0.8 Mg Tablet 0.8 Mg PO DAILY Hydroxyzine Hcl 25 Mg Tablet 50 Mg PO QMWF Allergies Allergies: Coded Allergies: Iodinated Contrast Media (Verified Allergy, Intermediate, 11/06/17) ROS General: YES: Fatigue PSYCHOLOGICAL ROS: YES: Anxiety, Depression Eyes: Yes Decreased vision HEENT: YES: Berenice ALLERGY AND IMMUNOLOGY: YES: Seasonal Allergies Respiratory: YES: Cough Gastrointestinal: Yes Constipation Genitourinary: YES Other (ANURIA) Musculoskeletal: Yes Joint Stiffness, Yes Muscular Weakness, Yes Other (BACK PAIN) Neurological: Yes Weakness Skin: Yes Dry Skin Physical Exam General: Alert, Oriented X3, Cooperative, No acute distress HEENT: Atraumatic, PERRLA, EOMI, Mucous membr. moist/pink Lungs: Clear to auscultation, Normal air movement Heart: Regular rate Abdomen: Normal bowel sounds, Soft Extremities: No clubbing Skin: No rashes Neuro: Normal speech, Cranial nerves 3-12 NL Psych/Mental Status: Mental status NL MUSCULOSKELETAL: No deformity Vitals VITALS Vital Signs Date Time Temp Pulse Resp B/P (MAP) Pulse Ox O2 Delivery O2 Flow Rate FiO2 01/16/19 10:39 97.9 70 22 134/62 (86) 98 Nasal Cannula 3.0 97.9 Labs Labs Laboratory Tests Test 01/16/19 05:15 01/16/19 07:38 01/16/19 08:09 01/16/19 11:50 White Blood Count 6.0 x10^3/uL (4.0-11.0) Red Blood Count 3.42 x10^6/uL (3.50-5.40) Hemoglobin 11.0 g/dL (12.0-15.5) Hematocrit 35.5 % (36.0-47.0) Mean Corpuscular Volume 104 fL (79-100) Mean Corpuscular Hemoglobin 32 pg (25-35) Mean Corpuscular Hemoglobin Concent 31 g/dL (31-37) Red Cell Distribution Width 14.5 % (11.5-14.5) Platelet Count 182 x10^3/uL (140-400) Neutrophils (%) (Auto) 80 % (31-73) Lymphocytes (%) (Auto) 8 % (24-48) Monocytes (%) (Auto) 9 % (0-9) Eosinophils (%) (Auto) 2 % (0-3) Basophils (%) (Auto) 1 % (0-3) Neutrophils # (Auto) 4.8 x10^3/uL (1.8-7.7) Lymphocytes # (Auto) 0.5 x10^3/uL (1.0-4.8) Monocytes # (Auto) 0.5 x10^3/uL (0.0-1.1) Eosinophils # (Auto) 0.1 x10^3/uL (0.0-0.7) Basophils # (Auto) 0.1 x10^3/uL (0.0-0.2) Sodium Level 144 mmol/L (136-145) Potassium Level 5.9 mmol/L (3.5-5.1) Chloride Level 112 mmol/L (98-107) Carbon Dioxide Level 18 mmol/L (21-32) Anion Gap 14 (6-14) Blood Urea Nitrogen 37 mg/dL (7-20) Creatinine 7.9 mg/dL (0.6-1.0) Estimated GFR (Cockcroft-Gault) 6.0 BUN/Creatinine Ratio 5 (6-20) Glucose Level 69 mg/dL (70-99) Calcium Level 8.7 mg/dL (8.5-10.1) Total Bilirubin 0.3 mg/dL (0.2-1.0) Aspartate Amino Transf (AST/SGOT) 19 U/L (15-37) Alanine Aminotransferase (ALT/SGPT) 13 U/L (14-59) Alkaline Phosphatase 100 U/L (46-116) Total Protein 6.3 g/dL (6.4-8.2) Albumin 2.8 g/dL (3.4-5.0) Albumin/Globulin Ratio 0.8 (1.0-1.7) Glucose (Fingerstick) 49 mg/dL (70-99) 169 mg/dL (70-99) 93 mg/dL (70-99) Laboratory Tests Test 01/16/19 05:15 01/16/19 07:38 01/16/19 08:09 01/16/19 11:50 White Blood Count 6.0 x10^3/uL (4.0-11.0) Red Blood Count 3.42 x10^6/uL (3.50-5.40) Hemoglobin 11.0 g/dL (12.0-15.5) Hematocrit 35.5 % (36.0-47.0) Mean Corpuscular Volume 104 fL (79-100) Mean Corpuscular Hemoglobin 32 pg (25-35) Mean Corpuscular Hemoglobin Concent 31 g/dL (31-37) Red Cell Distribution Width 14.5 % (11.5-14.5) Platelet Count 182 x10^3/uL (140-400) Neutrophils (%) (Auto) 80 % (31-73) Lymphocytes (%) (Auto) 8 % (24-48) Monocytes (%) (Auto) 9 % (0-9) Eosinophils (%) (Auto) 2 % (0-3) Basophils (%) (Auto) 1 % (0-3) Neutrophils # (Auto) 4.8 x10^3/uL (1.8-7.7) Lymphocytes # (Auto) 0.5 x10^3/uL (1.0-4.8) Monocytes # (Auto) 0.5 x10^3/uL (0.0-1.1) Eosinophils # (Auto) 0.1 x10^3/uL (0.0-0.7) Basophils # (Auto) 0.1 x10^3/uL (0.0-0.2) Sodium Level 144 mmol/L (136-145) Potassium Level 5.9 mmol/L (3.5-5.1) Chloride Level 112 mmol/L (98-107) Carbon Dioxide Level 18 mmol/L (21-32) Anion Gap 14 (6-14) Blood Urea Nitrogen 37 mg/dL (7-20) Creatinine 7.9 mg/dL (0.6-1.0) Estimated GFR (Cockcroft-Gault) 6.0 BUN/Creatinine Ratio 5 (6-20) Glucose Level 69 mg/dL (70-99) Calcium Level 8.7 mg/dL (8.5-10.1) Total Bilirubin 0.3 mg/dL (0.2-1.0) Aspartate Amino Transf (AST/SGOT) 19 U/L (15-37) Alanine Aminotransferase (ALT/SGPT) 13 U/L (14-59) Alkaline Phosphatase 100 U/L (46-116) Total Protein 6.3 g/dL (6.4-8.2) Albumin 2.8 g/dL (3.4-5.0) Albumin/Globulin Ratio 0.8 (1.0-1.7) Glucose (Fingerstick) 49 mg/dL (70-99) 169 mg/dL (70-99) 93 mg/dL (70-99) Assessment/Plan Assessment/Plan IMP HYPERKALEMIA ESRD ANEMIA 02 DEPENDENT COPD BACK PAIN COMPRESSION DEFORMITY OF INFERIOR ENDPLATE OFF L1 PLAN HD TODAY UF TO DW PARISA NEEDED CONSIDER NEUROSURGERY EVAL AND TX WILL FOLLOW EDITH CLEARY MD Jan 16, 2019 14:01
[2019-01-16] MEDS ORDERED: METO-239 PO (14:57)
--- NOTE | 2019-01-16 15:59 | NUR ---
SS following for discharge planning. Pt is from home and is currently on oxygen. Pt is currently on OPHD in the community. PT/OT ordered. SS will continue to follow for discharge planning.
[2019-01-16] MEDS ORDERED: ALBUTEROL SULFATE 2.5 MG/3 ML NEBU. NEB PRN (18:00)
[2019-01-16 19:00] VITALS: BP 147/58
[2019-01-16] MEDS: ALBUTEROL SULFATE 2.5 MG/3 ML NEBU. NEB SCH (20:00)
[2019-01-16] MEDS: BUDESONIDE 0.5 MG/2 ML NEBU. NEB SCH (20:00)
[2019-01-16] MEDS: ATORVASTATIN CALCIUM 40 MG TABLET. PO SCH (20:35)
[2019-01-16] MEDS: APIXABAN 5 MG TABLET. PO SCH (20:36)
[2019-01-16] MEDS: ACETAMINOPHEN/CODEINE 300/30MG TABLET. PO PRN (20:36)
[2019-01-16 23:00] VITALS: BP 119/54
[2019-01-17 03:00] VITALS: BP 116/71
[2019-01-17 07:00] VITALS: BP 127/61
[2019-01-17] MEDS: ALBUTEROL SULFATE 2.5 MG/3 ML NEBU. NEB SCH ×4 (08:17→20:32)
[2019-01-17] MEDS: BUDESONIDE 0.5 MG/2 ML NEBU. NEB SCH ×2 (08:17→20:32)
[2019-01-17] MEDS: METOPROLOL SUCC 24HR ER 25 MG TAB.ER.24H. PO SCH (08:49)
[2019-01-17] MEDS: FUROSEMIDE 40 MG TABLET. PO SCH (08:50)
[2019-01-17] MEDS: FOLIC/VIT B COMP W-C (RENAL) TABLET. PO SCH (08:50)
[2019-01-17] MEDS: APIXABAN 5 MG TABLET. PO SCH ×2 (08:51→21:25)
[2019-01-17] MEDS: ASPIRIN CHEWABLE 81 MG TABLET. PO SCH (08:51)
[2019-01-17] MEDS: AMIODARONE HCL 200 MG TABLET. PO SCH (08:51)
[2019-01-17] MEDS: ACETAMINOPHEN/CODEINE 300/30MG TABLET. PO PRN (09:21)
--- NOTE | 2019-01-17 09:44 | PDOC ---
[employer] PROGRESS NOTE Chief Complaint Chief Complaint Back pain ESRD Hyperkalemia History of Present Illness History of Present Illness 01/17/19 Pt seen and examined at bedside Still complains of back pain Agreed to have surgery if needed Awaiting neurosurgery consult from Dr. Bower Charts and labs reviewed DW RN Vitals/I&O Vitals/I&O: Vital Signs Date Time Temp Pulse Resp B/P (MAP) Pulse Ox O2 Delivery O2 Flow Rate FiO2 01/17/19 09:21 100 Nasal Cannula 3.0 01/17/19 08:51 80 127/61 01/17/19 07:00 98.0 16 98.0 I & O 01/16/19 01/16/19 01/17/19 14:59 22:59 06:59 Intake Total 0 ml 400 ml 240 ml Output Total 0 ml Balance 0 ml 400 ml 240 ml Physical Exam General: Alert, Oriented X3, Cooperative, No acute distress Heart: Regular rate (SR/SB 50s), Normal S1, Normal S2, Other (4/6 systolic murmur to LLS border) Lungs: Clear Abdomen: Soft, No tenderness Extremities: No clubbing, No cyanosis, No edema Skin: No breakdown, No significant lesion Labs Labs: Laboratory Tests Test 01/16/19 11:50 01/16/19 21:02 01/17/19 08:13 Glucose (Fingerstick) 93 mg/dL (70-99) 164 mg/dL (70-99) 96 mg/dL (70-99) Review of Systems Review of Systems: No nausea, no vomiting No chest pain, no palpitations Assessment and Plan Assessmemt and Plan Problems Medical Problems: (1) Compression fracture of L1 lumbar vertebra Status: Acute (2) Compression fracture of L5 vertebra Status: Acute (3) End stage renal disease on dialysis Status: Acute (4) Symptomatic bradycardia Status: Acute Assessment Compression fracture of L1 vertebra Compression fracture of L5 vertebra ESRD Plan Cardiac monitoring Neurosurgery consult pending HD M, W, F PT/OT DVT prophylaxis Full code Comment Review of Relevant I have reviewed the following items mykel (where applicable) has been applied. Medications: Current Medications Medications (Trade) Dose Ordered Sig/Eric Route PRN Reason Start Time Stop Time Status Last Admin Dose Admin Amiodarone HCl (Cordarone) 200 mg DAILY PO 01/17/19 09:00 01/17/19 08:51 Aspirin (Children'S Aspirin) 81 mg DAILY PO 01/17/19 09:00 01/17/19 08:51 Atorvastatin Calcium (Lipitor) 40 mg HS PO 01/16/19 21:00 01/16/19 20:35 Acetaminophen/ Codeine Phosphate (Tylenol #3) 1 tab PRN Q6HRS PRN PO PAIN 01/16/19 18:00 01/17/19 09:21 Apixaban (Eliquis) 5 mg BID PO 01/16/19 21:00 01/17/19 08:51 Vitamin B Complex/ Vitamin C (Marina-Jayme) 1 tab DAILY PO 01/17/19 09:00 01/17/19 08:50 Furosemide (Lasix) 40 mg DAILY PO 01/17/19 09:00 01/17/19 08:50 Metoprolol Succinate (Toprol Xl) 25 mg DAILY PO 01/17/19 09:00 01/17/19 08:49 Budesonide (Pulmicort) 0.5 mg RTBID NEB 01/16/19 20:00 01/17/19 08:17 Albuterol Sulfate (Ventolin Neb Soln) 2.5 mg RTQID NEB 01/16/19 20:00 01/17/19 08:17 YULIA DE ANDA III DO Jan 17, 2019 09:44
--- NOTE | 2019-01-17 10:30 | NUR ---
Small abdominal binder ordered from [facility].
[2019-01-17 11:00] VITALS: BP 125/56
[2019-01-17] MEDS: PANTOPRAZOLE 40 MG TABLET.DR. PO SCH (11:00)
[2019-01-17] MEDS: LIDOCAINE (700MG/PATCH) PATCH. TD SCH (11:01)
[2019-01-17] MEDS: predniSONE 10 MG TABLET PO SCH (11:01)
[2019-01-17] MEDS: CYCLOBENZAPRINE 10 MG TABLET. PO SCH ×2 (11:01→18:34)
--- NOTE | 2019-01-17 11:04 | PDOC ---
SUBJECTIVE ROS Stable OBJECTIVE Vital Signs Vital Signs Date Time Temp Pulse Resp B/P (MAP) Pulse Ox O2 Delivery O2 Flow Rate FiO2 01/17/19 10:21 100 Nasal Cannula 3.0 01/17/19 08:51 80 127/61 01/17/19 07:00 98.0 16 98.0 I & 0 Intake and Output 01/17/19 06:59 Intake Total 640 ml Output Total 0 ml Balance 640 ml Intake Oral 640 ml Output Urine Total 0 ml PHYSICAL EXAM Physical Exam General: No acute distress HEENT: Mucous membr. moist/pink neck Supple Lungs: CTA Heart:Bradycardic Abdomen: Soft, No tenderness, Extremities: No edema, LUE AV fistula with bruit Skin: No rashes Neuro: Grossly Normal Psych/Mental Status: Mental status NL, Mood NL No Guerrier DIAGNOSIS/ASSESSMENT Assessment & Plan ESRD- On HD MWF under Dr. Ramon's care No indication today Hyperkalemia- Intermittent Last admission needed urgent HD, As OP K per VOICE OVER ANNOUNCER has been < 5 -was not a candidate for Valtessa , it will be monitored by her Dialysis unit Anemia- Stable , PARISA for Hgb <10 , Monitor GI bleed in june 2018, post EGD DM - primary managing PENNY- cant tolerate CPAP Low back pain with traumatic mechanical fall: resulting to L1 compression fracture Known asymptomatic SB: Lower HR noted in the past associated with hyperkalemic episode. Otherwise lifevest check unrevelaing of any significant bradyarrhythmias. NICM/chronic systolic CHF: compensated EF 35% NYHA 2 PAFIB: SR/SB, lowest 50s. Hypertension; controlled CAD s/p PCI/stent to the RCA: Cath earlier this year with non-obstructive CAD, clnically stable COMMENT/RELEVANT DATA Meds Current Medications Medications (Trade) Dose Ordered Sig/Eric Start Time Stop Time Status Last Admin Dose Admin Acetaminophen (Tylenol) 500 mg 1X PRN PRN 01/16/19 14:00 01/16/19 19:00 DC Acetaminophen/ Codeine Phosphate (Tylenol #3) 1 tab PRN Q6HRS PRN 01/16/19 18:00 01/17/19 09:21 1 TAB Acetaminophen/ Hydrocodone Bitart (Lortab 10/325) 1 tab PRN Q6HRS PRN 01/17/19 10:30 Albuterol Sulfate (Ventolin Neb Soln) 2.5 mg RTQID 01/16/19 20:00 01/17/19 08:17 2.5 MG Amiodarone HCl (Cordarone) 200 mg DAILY 01/17/19 09:00 01/17/19 08:51 200 MG Apixaban (Eliquis) 5 mg BID 01/16/19 21:00 01/17/19 08:51 5 MG Aspirin (Children'S Aspirin) 81 mg DAILY 01/17/19 09:00 01/17/19 08:51 81 MG Atorvastatin Calcium (Lipitor) 40 mg HS 01/16/19 21:00 01/16/19 20:35 40 MG Budesonide (Pulmicort) 0.5 mg RTBID 01/16/19 20:00 01/17/19 08:17 0.5 MG Cyclobenzaprine HCl (Flexeril) 10 mg Q6HRS 01/17/19 12:00 Dextrose (Dextrose 50%-Water Syringe) 25 gm STK-MED ONCE 01/16/19 07:43 01/16/19 07:43 DC Diphenhydramine HCl (Benadryl) 25 mg 1X PRN PRN 01/16/19 14:00 01/16/19 19:00 DC Fentanyl Citrate (Fentanyl 2ml Vial) 50 mcg PRN Q1HR PRN 01/16/19 05:15 01/17/19 05:14 DC Furosemide (Lasix) 40 mg DAILY 01/17/19 09:00 01/17/19 08:50 40 MG Hydroxyzine HCl (Atarax) 50 mg MoWeFr@0900 01/18/19 09:00 Info (PHARMACY MONITORING -- do not chart) 1 each PRN DAILY PRN 01/16/19 14:00 Labetalol HCl (Normodyne Iv Push) 10 mg PRN Q1HR PRN 01/16/19 14:00 01/17/19 13:59 Lidocaine (Lidoderm) 1 patch DAILY 01/17/19 11:00 Lidocaine HCl (Xylocaine-Mpf 1% 2ml Vial) 2 ml STK-MED ONCE 01/16/19 14:00 01/17/19 09:03 DC Metoprolol Succinate (Toprol Xl) 25 mg DAILY 01/17/19 09:00 01/17/19 08:49 25 MG Miscellaneous (Lidoderm Patch Removal) 1 ea QHS 01/17/19 21:00 Ondansetron HCl (Zofran) 4 mg PRN Q8HRS PRN 01/16/19 05:15 01/17/19 05:14 DC Pantoprazole Sodium (Protonix) 40 mg DAILYAC 01/17/19 11:30 Prednisone (Prednisone) 10 mg DAILY 01/17/19 11:00 Sodium Chloride 1,000 ml @ 400 mls/hr Q2H30M PRN 01/16/19 13:55 01/17/19 01:54 DC Vitamin B Complex/ Vitamin C (Marina-Jayme) 1 tab DAILY 01/17/19 09:00 01/17/19 08:50 1 TAB Lab Laboratory Tests Test 01/16/19 11:50 01/16/19 21:02 01/17/19 08:13 Glucose (Fingerstick) 93 mg/dL (70-99) 164 mg/dL (70-99) 96 mg/dL (70-99) Results All relevant outside records, renal labs, imaging studies, telemetry/EKG's were reviewed. DESIREE MELARA MD Jan 17, 2019 11:04
--- NOTE | 2019-01-17 11:37 | CONS ---
DATE OF CONSULTATION: 01/17/2019 ATTENDING PHYSICIAN: Jemma Everett MD REASON FOR CONSULTATION: The patient was seen at the request of Dr. Everett for rehab evaluation. 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 The patient had extensive cardiac evaluation in progress because she needs a defibrillator, but she cannot qualify for it until we will put her on LifeVest for 90 days with outpatient medical management. The patient had CT scan of lumbar spine done on 01/14/2019, which showed new L1 vertebral body compression fracture. The patient is being considered for kyphoplasty of L1. The patient lives with her and had steps to manage to get in the house. 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 Her legs gave away and she fell down. She denies any radiation of back pain to the extremities or any weakness in her extremities. She admits when holding on things with both hands, sometimes they fall out of her right hand. The patient also with known hypertension, hyperlipidemia, coronary artery disease, congestive heart failure, asthmatic bronchitis, chronic anticoagulation, arrhythmias, and hyperlipidemia. ALLERGIES: SHE IS KNOWN ALLERGIC TO IODINATED CONTRAST MEDIA. FAMILY HISTORY: Coronary artery disease. PHYSICAL EXAMINATION: Today revealed an elderly female. She is alert, oriented to time, place, person and circumstance and follows commands appropriately. She had tenderness to palpation over lumbar intraspinous ligamentous area and also over lumbar paraspinal muscles extending over to sacroiliac joint area and straight leg raising test is negative bilaterally. She had moderate degree of lumbar paraspinal muscle spasm. She had 5/5 grade muscle strength in her extremities and deep tendon reflexes are decreased in upper extremities and absent in both knees and ankles, and she had equal perception of touch and pinprick sensation bilaterally. She is independent in rolling from side to side. I have not tested her transfers or ambulation skills at this time. Her skin is intact at this time. She had relative weakness of rotator cuff muscles bilaterally. She had mild crepitus on range of motion of her knee joints. ASSESSMENT: An elderly female with recent fall with acute L1 vertebral body compression fracture with associated degenerative disk disease of L4-L5 with some degree of central spinal stenosis. No clinical evidence of ongoing lumbar radiculopathy. RECOMMENDATIONS: Agree with the plans for kyphoplasty, if it can be done to get her up using lumbar corset. Agree with the plan for physical therapy. Dr. Everett appreciate asking me to participate in care of this interesting patient. I will be glad to follow her with you as needed for her rehabilitation. DEVIN JOHNSON MD DR: STACEY/courtney JOB#: [id number] / [id number]
[2019-01-17] MEDS: POLYETHYLENE GLYCOL 3350 17 GM PACKET. PO SCH (13:38)
--- NOTE | 2019-01-17 14:00 | NUR ---
SS following up with discharge planning. Pt is currently on services with [facility], ; fax [phone], Monday, Monday, and Monday at 0600. Pt is currently requiring oxygen. PT/OT ordered and is currently on hold. SS will continue to follow for discharge planning.
[2019-01-17 15:00] VITALS: BP 124/54
--- NOTE | 2019-01-17 16:05 | RAD ---
LUMBAR SPINE WO CONTRAST History: Compression fractures Technique: Multiplanar, multi sequential MR imaging was performed of the lumbar spine. Comparison: CT November 14, 2018. MRI May 25, 2015 Findings: Acute to subacute L1 inferior endplate compression fracture. Approximately 25 percent height loss. Minimal retropulsion. No significant canal narrowing. No additional fracture. Normal alignment. Conus terminates at the normal location. No evidence of nerve root clumping. Bilateral renal atrophy. Bilateral renal small cysts. Abdominal aortic aneurysm endograft repair partially evaluated. L1-L2: Small posterior disc bulge. No canal narrowing. No neuroforaminal narrowing. L2-L3: Minimal posterior disc bulge. Mild facet arthropathy. No canal or neuroforaminal narrowing. L3-L4: Small posterior disc bulge with annular fissure. Mild facet arthropathy. No canal narrowing. No neuroforaminal narrowing. L4-L5: Disc height loss. Degenerative endplate changes. Posterior disc osteophyte complex. Severe canal narrowing. Moderate to severe left neuroforaminal narrowing due to facet arthropathy and left foraminal disc protrusion. Moderate right neuroforaminal narrowing. Advanced facet arthropathy. L5-S1: Small posterior disc bulge. Moderate facet arthropathy. No canal narrowing. No neuroforaminal narrowing. Impression: 1. Acute to subacute L1 inferior endplate compression fracture. 2. Advanced L4-L5 spondylosis contributing to severe canal narrowing and bilateral neural foraminal narrowing, progressed compared to 2016. 3. Bilateral renal atrophy with small cysts. Electronically signed by: Neal Ortega DO (01/17/2019 4:02 PM) [id number]
[2019-01-17 19:48] VITALS: BP 147/79
[2019-01-17] MEDS: PATCH REMOVAL. MC SCH (21:00)
[2019-01-17] MEDS: HYDROcodone/APAP 10/325 1 TAB TABLET PO PRN (21:25)
[2019-01-17] MEDS: ATORVASTATIN CALCIUM 40 MG TABLET. PO SCH (21:25)
[2019-01-17 22:32] VITALS: BP 156/64
[2019-01-18] MEDS: CYCLOBENZAPRINE 10 MG TABLET. PO SCH ×5 (00:01→23:32)
[2019-01-18 03:06] VITALS: BP 145/64
[2019-01-18 07:00] VITALS: BP 131/53
[2019-01-18] MEDS: BUDESONIDE 0.5 MG/2 ML NEBU. NEB SCH ×2 (08:00→20:31)
[2019-01-18] MEDS: ALBUTEROL SULFATE 2.5 MG/3 ML NEBU. NEB SCH ×4 (08:00→20:00)
[2019-01-18] MEDS: POLYETHYLENE GLYCOL 3350 17 GM PACKET. PO SCH (09:00)
[2019-01-18] MEDS: hydrOXYzine 25 MG TABLET PO SCH (09:00)
--- NOTE | 2019-01-18 09:16 | PDOC ---
SUBJECTIVE ROS Stable OBJECTIVE Vital Signs Vital Signs Date Time Temp Pulse Resp B/P (MAP) Pulse Ox O2 Delivery O2 Flow Rate FiO2 01/18/19 07:00 97.4 72 16 131/53 (79) 98 Nasal Cannula 3.0 97.4 I & 0 Intake and Output 01/18/19 07:00 Intake Total 610 ml Output Total 0 ml Balance 610 ml Intake Oral 610 ml Output Urine Total 0 ml PHYSICAL EXAM Physical Exam General: No acute distress HEENT: Mucous membr. moist/pink neck Supple Lungs: CTA Heart:Bradycardic Abdomen: Soft, No tenderness, Extremities: No edema, LUE AV fistula with bruit Skin: No rashes Neuro: Grossly Normal Psych/Mental Status: Mental status NL, Mood NL No Guerrier DIAGNOSIS/ASSESSMENT Assessment & Plan ESRD- On HD MWF under Dr. Ramon's care seen on HD, tolerating well, continue as ordered Hyperkalemia- Intermittent Last admission needed urgent HD, As OP K per RECRUITMENT DIRECTOR has been < 5 -was not a candidate for Valtessa , monitored as OP in the Dialysis unit Anemia- Stable , PARISA for Hgb <10 , currently no indication GI bleed in june 2018, post EGD DM - primary managing PENNY- cant tolerate CPAP Low back pain with traumatic mechanical fall: resulting to L1 compression fracture Known asymptomatic SB: Lower HR noted in the past associated with hyperkalemic episode. Otherwise lifevest check unrevelaing of any significant bradyarrhythmias. NICM/chronic systolic CHF: compensated EF 35% NYHA 2 PAFIB: SR/SB, lowest 50s. Hypertension; controlled CAD s/p PCI/stent to the RCA: Cath earlier this year with non-obstructive CAD, clnically stable COMMENT/RELEVANT DATA Meds Current Medications Medications (Trade) Dose Ordered Sig/Eric Start Time Stop Time Status Last Admin Dose Admin Acetaminophen (Tylenol) 500 mg 1X PRN PRN 01/16/19 14:00 01/16/19 19:00 DC Acetaminophen/ Codeine Phosphate (Tylenol #3) 1 tab PRN Q6HRS PRN 01/16/19 18:00 01/17/19 09:21 1 TAB Acetaminophen/ Hydrocodone Bitart (Lortab 10/325) 1 tab PRN Q6HRS PRN 01/17/19 10:30 01/17/19 21:25 1 TAB Albuterol Sulfate (Ventolin Neb Soln) 2.5 mg RTQID 01/16/19 20:00 01/17/19 20:32 2.5 MG Amiodarone HCl (Cordarone) 200 mg DAILY 01/17/19 09:00 01/17/19 08:51 200 MG Apixaban (Eliquis) 5 mg BID 01/16/19 21:00 01/17/19 21:25 5 MG Aspirin (Children'S Aspirin) 81 mg DAILY 01/17/19 09:00 01/17/19 08:51 81 MG Atorvastatin Calcium (Lipitor) 40 mg HS 01/16/19 21:00 01/17/19 21:25 40 MG Budesonide (Pulmicort) 0.5 mg RTBID 01/16/19 20:00 01/17/19 20:32 0.5 MG Cyclobenzaprine HCl (Flexeril) 10 mg Q6HRS 01/17/19 12:00 01/17/19 18:34 10 MG Dextrose (Dextrose 50%-Water Syringe) 25 gm STK-MED ONCE 01/16/19 07:43 01/16/19 07:43 DC Diphenhydramine HCl (Benadryl) 25 mg 1X PRN PRN 01/16/19 14:00 01/16/19 19:00 DC Fentanyl Citrate (Fentanyl 2ml Vial) 50 mcg PRN Q1HR PRN 01/16/19 05:15 01/17/19 05:14 DC Furosemide (Lasix) 40 mg DAILY 01/17/19 09:00 01/17/19 08:50 40 MG Hydroxyzine HCl (Atarax) 50 mg MoWeFr@0900 01/18/19 09:00 Info (PHARMACY MONITORING -- do not chart) 1 each PRN DAILY PRN 01/16/19 14:00 Labetalol HCl (Normodyne Iv Push) 10 mg PRN Q1HR PRN 01/16/19 14:00 01/17/19 13:59 DC Lidocaine (Lidoderm) 1 patch DAILY 01/17/19 11:00 01/17/19 11:01 1 PATCH Lidocaine HCl (Xylocaine-Mpf 1% 2ml Vial) 2 ml STK-MED ONCE 01/16/19 14:00 01/17/19 09:03 DC Metoprolol Succinate (Toprol Xl) 25 mg DAILY 01/17/19 09:00 01/17/19 08:49 25 MG Miscellaneous (Lidoderm Patch Removal) 1 ea QHS 01/17/19 21:00 01/17/19 21:00 1 EA Ondansetron HCl (Zofran) 4 mg PRN Q8HRS PRN 01/16/19 05:15 01/17/19 05:14 DC Pantoprazole Sodium (Protonix) 40 mg DAILYAC 01/17/19 11:30 01/17/19 11:00 40 MG Polyethylene Glycol (miraLAX PACKET) 17 gm DAILY 01/17/19 12:00 01/17/19 13:38 17 GM Prednisone (Prednisone) 10 mg DAILY 01/17/19 11:00 01/17/19 11:01 10 MG Sodium Chloride 1,000 ml @ 400 mls/hr Q2H30M PRN 01/16/19 13:55 01/17/19 01:54 DC Vitamin B Complex/ Vitamin C (Marina-Jayme) 1 tab DAILY 01/17/19 09:00 01/17/19 08:50 1 TAB Lab Laboratory Tests Test 01/17/19 11:54 01/17/19 17:17 01/17/19 20:47 01/18/19 07:08 Glucose (Fingerstick) 136 mg/dL (70-99) 200 mg/dL (70-99) 192 mg/dL (70-99) 84 mg/dL (70-99) Results All relevant outside records, renal labs, imaging studies, telemetry/EKG's were reviewed. DESIREE MELARA MD Jan 18, 2019 09:16
[2019-01-18] MEDS ORDERED: LIDOCAINE 1% PF 2 ML VIAL. ONE (09:25)
[2019-01-18] MEDS ORDERED: IV NORMAL SALINE 1000ML BAG 1,000 ML IV PRN ×2 (10:02)
[2019-01-18] MEDS ORDERED: LIDOCAINE 1% PF 2 ML VIAL. ID STA (10:08)
--- NOTE | 2019-01-18 10:08 | PDOC ---
PROGRESS NOTES Subjective Subjective She admits pain is under good control with medicine and abdominal binder and would like to go home and come on out patient basis for kyphoplasty which could not be done today as she is on anticoagulants. Objective Objective Vital Signs Date Time Temp Pulse Resp B/P (MAP) Pulse Ox O2 Delivery O2 Flow Rate FiO2 01/18/19 07:00 97.4 72 16 131/53 (79) 98 Nasal Cannula 3.0 97.4 Intake and Output 01/18/19 06:59 Intake Total 610 ml Output Total 0 ml Balance 610 ml Intake Oral 610 ml Output Urine Total 0 ml Physical Exam Physical Exam She is alert annd supine receiving hemodialysis. Mri scan revealed acute L1 vertebral body compression fracture and some worsening of DDD and facet DJD changes at L4-L5 level. Assessment Assessment Problems Medical Problems: (1) Compression fracture of L1 lumbar vertebra Status: Acute (2) Compression fracture of L5 vertebra Status: Acute (3) End stage renal disease on dialysis Status: Acute (4) Symptomatic bradycardia Status: Acute Plan Plan of Senior Care when she can get around well with roller walker to go home and to come on out patient basis for kyphoplasty of L1 on 01/21/2019. Comment Review of Relevant I have reviewed the following items mykel (where applicable) has been applied. Labs Laboratory Tests Test 01/16/19 11:50 01/16/19 21:02 01/17/19 08:13 01/17/19 11:54 Glucose (Fingerstick) 93 mg/dL (70-99) 164 mg/dL (70-99) 96 mg/dL (70-99) 136 mg/dL (70-99) Test 01/17/19 17:17 01/17/19 20:47 01/18/19 07:08 Glucose (Fingerstick) 200 mg/dL (70-99) 192 mg/dL (70-99) 84 mg/dL (70-99) Laboratory Tests Test 01/17/19 11:54 01/17/19 17:17 01/17/19 20:47 01/18/19 07:08 Glucose (Fingerstick) 136 mg/dL (70-99) 200 mg/dL (70-99) 192 mg/dL (70-99) 84 mg/dL (70-99) Medications Current Medications Fentanyl Citrate (Fentanyl 2ml Vial) 50 mcg 1X ONCE IV Last administered on 01/16/19at 05:35; Start 01/16/19 at 05:15; Stop 01/16/19 at 05:16; Status DC Ondansetron HCl (Zofran) 4 mg 1X ONCE IV Last administered on 01/16/19at 05:34; Start 01/16/19 at 05:15; Stop 01/16/19 at 05:16; Status DC Ondansetron HCl (Zofran) 4 mg PRN Q8HRS PRN IV NAUSEA/VOMITING; Start 01/16/19 at 05:15; Stop 01/17/19 at 05:14; Status DC Fentanyl Citrate (Fentanyl 2ml Vial) 50 mcg PRN Q1HR PRN IV PAIN; Start 01/16/19 at 05:15; Stop 01/17/19 at 05:14; Status DC Acetaminophen (Tylenol) 650 mg PRN Q4HRS PRN PO FEVER; Start 01/16/19 at 05:15; Stop 01/17/19 at 05:14; Status DC Dextrose (Dextrose 50%-Water Syringe) 12.5 gm PRN Q15MIN PRN IV SEE COMMENTS Last administered on 01/16/19at 07:46; Start 01/16/19 at 07:45 Dextrose (Dextrose 50%-Water Syringe) 25 gm STK-MED ONCE IV ; Start 01/16/19 at 07:43; Stop 01/16/19 at 07:43; Status DC Sodium Chloride 1,000 ml @ 1,000 mls/hr Q1H PRN IV hypotension; Start 01/16/19 at 13:55; Stop 01/16/19 at 19:54; Status DC Acetaminophen (Tylenol) 500 mg 1X PRN PRN PO MILD PAIN / TEMP; Start 01/16/19 at 14:00; Stop 01/16/19 at 19:00; Status DC Diphenhydramine HCl (Benadryl) 25 mg 1X PRN PRN IV ITCHING; Start 01/16/19 at 14:00; Stop 01/16/19 at 19:00; Status DC Diphenhydramine HCl (Benadryl) 25 mg 1X PRN PRN IV ITCHING; Start 01/16/19 at 14:00; Stop 01/16/19 at 19:00; Status DC Labetalol HCl (Normodyne Iv Push) 10 mg PRN Q1HR PRN IVP SBP > 180; Start 01/16/19 at 14:00; Stop 01/17/19 at 13:59; Status DC Sodium Chloride 1,000 ml @ 400 mls/hr Q2H30M PRN IV PATENCY; Start 01/16/19 at 13:55; Stop 01/17/19 at 01:54; Status DC Info (PHARMACY MONITORING -- do not chart) 1 each PRN DAILY PRN MC SEE COMMENTS; Start 01/16/19 at 14:00 Lidocaine HCl (Xylocaine-Mpf 1% 2ml Vial) 2 ml STK-MED ONCE .ROUTE ; Start 01/16 at 14:03; Stop 01/16/19 at 14:03; Status DC Amiodarone HCl (Cordarone) 200 mg DAILY PO Last administered on 01/17/19at 08: 51; Start 01/17/19 at 09:00 Aspirin (Children'S Aspirin) 81 mg DAILY PO Last administered on 01/17/19at 08:51; Start 01/17/19 at 09:00 Atorvastatin Calcium (Lipitor) 40 mg HS PO Last administered on 01/17/19at 21:25; Start 01/16/19 at 21:00 Acetaminophen/ Codeine Phosphate (Tylenol #3) 1 tab PRN Q6HRS PRN PO PAIN Last administered on 01/17/19at 09:21; Start 01/16/19 at 18:00 Albuterol Sulfate (Ventolin Neb Soln) 2.5 mg PRN Q6HRS PRN NEB SHORTNESS OF BREATH; Start 01/16/19 at 18:00 Apixaban (Eliquis) 5 mg BID PO Last administered on 01/17/19at 21:25; Start 01/16/19 at 21:00 Vitamin B Complex/ Vitamin C (Marina-Jayme) 1 tab DAILY PO Last administered on 01/17/19at 08:50; Start 01/17/19 at 09:00 Furosemide (Lasix) 40 mg DAILY PO Last administered on 01/17/19at 08:50; Start 01/17/19 at 09:00 Hydroxyzine HCl (Atarax) 50 mg MoWeFr@0900 PO ; Start 01/18/19 at 09:00 Metoprolol Succinate (Toprol Xl) 25 mg DAILY PO Last administered on 01/17/19 08:49; Start 01/17/19 at 09:00 Budesonide (Pulmicort) 0.5 mg RTBID NEB Last administered on 01/17/19 20:32; Start 01/16/19 at 20:00 Albuterol Sulfate (Ventolin Neb Soln) 2.5 mg RTQID NEB Last administered on 01/17/19 20:32; Start 01/16/19 at 20:00 Lidocaine HCl (Xylocaine-Mpf 1% 2ml Vial) 2 ml STK-MED ONCE .ROUTE ; Start 01/16/19 at 14:00; Stop 01/17/19 at 09:03; Status DC Acetaminophen/ Hydrocodone Bitart (Lortab 10325) 1 tab PRN Q6HRS PRN PO MODERATE PAIN Last administered on 01/17/19 21:25; Start 01/17/19 at 10:30 Prednisone (Prednisone) 10 mg DAILY PO Last administered on 01/17/19 11:01; Start 01/17/19 at 11:00 Pantoprazole Sodium (Protonix) 40 mg DAILYAC PO Last administered on 01/17/19 11:00; Start 01/17/19 at 11:30 Lidocaine (Lidoderm) 1 patch DAILY TD Last administered on 01/17/19 11:01; Start 01/17/19 at 11:00 Miscellaneous (Lidoderm Patch Removal) 1 ea QHS MC Last administered on 01/17/19 21:00; Start 01/17/19 at 21:00 Cyclobenzaprine HCl (Flexeril) 10 mg Q6HRS PO Last administered on 01/17/19 18:34; Start 01/17/19 at 12:00 Polyethylene Glycol (miraLAX PACKET) 17 gm DAILY PO Last administered on 01/17/19 13:38; Start 01/17/19 at 12:00 Lidocaine HCl (Xylocaine-Mpf 1% 2ml Vial) 2 ml STK-MED ONCE .ROUTE ; Start 01/18/19 at 09:25; Stop 01/18/19 at 09:25; Status DC Active Scripts Active Tylenol With Codeine #3 Tablet (Acetaminophen/Codeine Phosphate) 1 Each Tablet 1 Tab PO PRN Q6HRS PRN Amiodarone Hcl 200 Mg Tablet 200 Mg PO DAILY 30 Days Eliquis (Apixaban) 5 Mg Tablet 5 Mg PO BID MDD ` Reported Metoprolol Succinate ( Xl ) (Metoprolol Succinate) 25 Mg Tab.er.24h 1 Tab PO DAILY Aspirin 81 Mg Tab.chew 1 Tab PO DAILY Lipitor (Atorvastatin Calcium) 40 Mg Tablet 40 Mg PO HS Furosemide 40 Mg Tablet 40 Mg PO DAILY Symbicort 160-4.5 Mcg Inhaler (Budesonide/Formoterol Fumarate) 10.2 Gm Hfa.aer.ad 2 Puff IH BID Proair Hfa Inhaler (Albuterol Sulfate) 8.5 Gm Hfa.aer.ad 1 Puff INH PRN Q6HRS PRN Marina-Jayme Tablet (Folic Acid/Vitamin B Comp W-C) 0.8 Mg Tablet 0.8 Mg PO DAILY Hydroxyzine Hcl 25 Mg Tablet 50 Mg PO QMWF Vitals/I & O Vital Sign - Last 24 Hours 01/17/19 01/17/19 01/17/19 01/17/19 10: 11:00 12:02 15:00 Temp 97.8 98.1 97.8 98.1 Pulse 77 76 Resp 18 16 B/P (MAP) 125/56 (79) 124/54 (77) Pulse Ox 100 97 97 91 O2 Delivery Nasal Cannula Nasal Cannula Nasal Cannula Nasal Cannula O2 Flow Rate 3.0 3.0 3.0 3.0 01/17/19 01/17/19 01/17/19 01/17/19 16:12 19:48 20:00 20:33 Temp 98.1 98.1 Pulse 82 Resp 18 B/P (MAP) 147/79 (101) Pulse Ox 100 97 97 O2 Delivery Nasal Cannula Nasal Cannula Nasal Cannula Nasal Cannula O2 Flow Rate 3.0 3.0 3.0 3.0 01/17/19 01/17/19 01/17/19 01/18/19 21:25 22:30 22:32 03:06 Temp 97.9 97.6 97.9 97.6 Pulse 83 73 Resp 22 20 18 18 B/P (MAP) 156/64 (94) 145/64 (91) Pulse Ox 97 98 98 98 O2 Delivery Nasal Cannula Nasal Cannula Nasal Cannula Nasal Cannula O2 Flow Rate 3.0 3.0 3.0 2.0 01/18/19 07:00 Temp 97.4 97.4 Pulse 72 Resp 16 B/P (MAP) 131/53 (79) Pulse Ox 98 O2 Delivery Nasal Cannula O2 Flow Rate 3.0 Intake and Output 01/17/19 01/17/19 01/18/19 14:59 22:59 06:59 Intake Total 200 ml 210 ml 200 ml Output Total 0 ml 0 ml 0 ml Balance 200 ml 210 ml 200 ml DEVIN JOHNSON MD Jan 18, 2019 10:08
[2019-01-18] MEDS ORDERED: diphenhydrAMINE 50 MG/ML VIAL IV PRN ×2 (10:15)
[2019-01-18] MEDS ORDERED: ACETAMINOPHEN 500 MG TABLET PO PRN (10:15)
[2019-01-18] MEDS ORDERED: DIALYSIS PATIENT. MC PRN (10:15)
[2019-01-18 10:16] LABS: ALBUMIN 2.6 g/dL (3.4-5.0); CALCIUM 8.1 mg/dL (8.5-10.1); CREATININE 7.4 mg/dL (0.6-1.0); GFR 6.5; MAGNESIUM 1.9 mg/dL (1.8-2.4); PHOSPHORUS 5.8 mg/dL (2.6-4.7); POTASSIUM 4.4 mmol/L (3.5-5.1)
--- NOTE | 2019-01-18 11:07 | PDOC ---
[facility] PROGRESS NOTE Chief Complaint Chief Complaint Back pain ESRD Hyperkalemia History of Present Illness History of Present Illness 01/18/19 Pt seen and examined in Dialysis Pt was feeling better, upright, doing a sodoku puzzle Pt wants to go home for the weekend and come back on Monday for her k yphoplasty. Everyone is in agreement with this plan. Charts and labs reviewed OSIRIS LOYA 01/17/19 Pt seen and examined at bedside Still complains of back pain Agreed to have surgery if needed Awaiting neurosurgery consult from Dr. Bower Charts and labs reviewed OSIRIS LOYA Vitals/I&O Vitals/I&O: Vital Signs Date Time Temp Pulse Resp B/P (MAP) Pulse Ox O2 Delivery O2 Flow Rate FiO2 01/18/19 07:00 97.4 72 16 131/53 (79) 98 Nasal Cannula 3.0 97.4 I & O 01/17/19 01/17/19 01/18/19 14:59 22:59 06:59 Intake Total 200 ml 210 ml 200 ml Output Total 0 ml 0 ml 0 ml Balance 200 ml 210 ml 200 ml Physical Exam General: Alert, Oriented X3, Cooperative, No acute distress Heart: Regular rate (SR/SB 50s), Normal S1, Normal S2, Other (4/6 systolic murmur to LLS border) Lungs: Clear Abdomen: Soft, No tenderness Extremities: No clubbing, No cyanosis, No edema Skin: No breakdown, No significant lesion Labs Labs: Laboratory Tests Test 01/17/19 11:54 01/17/19 17:17 01/17/19 20:47 01/18/19 07:08 Glucose (Fingerstick) 136 mg/dL (70-99) 200 mg/dL (70-99) 192 mg/dL (70-99) 84 mg/dL (70-99) Test 01/18/19 09:30 Sodium Level 140 mmol/L (136-145) Potassium Level 4.4 mmol/L (3.5-5.1) Chloride Level 102 mmol/L (98-107) Carbon Dioxide Level 27 mmol/L (21-32) Anion Gap 11 (6-14) Blood Urea Nitrogen 42 mg/dL (7-20) Creatinine 7.4 mg/dL (0.6-1.0) Estimated GFR (Cockcroft-Gault) 6.5 Glucose Level 112 mg/dL (70-99) Calcium Level 8.1 mg/dL (8.5-10.1) Phosphorus Level 5.8 mg/dL (2.6-4.7) Magnesium Level 1.9 mg/dL (1.8-2.4) Albumin 2.6 g/dL (3.4-5.0) Review of Systems Review of Systems: Denies n/v/d Denies chest pain Assessment and Plan Assessmemt and Plan Problems Medical Problems: (1) Compression fracture of L1 lumbar vertebra Status: Acute (2) Compression fracture of L5 vertebra Status: Acute (3) End stage renal disease on dialysis Status: Acute (4) Symptomatic bradycardia Status: Acute Assessment Compression fracture of L1 vertebra Compression fracture of L5 vertebra ESRD Bradycardia Plan Cardiac monitoring Appreciate neurosurg consult HD M, W, F DVT prophylaxis Full code PT/OT Probable discharge today Comment Review of Relevant I have reviewed the following items mykel (where applicable) has been applied. Medications: Current Medications Medications (Trade) Dose Ordered Sig/Eric Route PRN Reason Start Time Stop Time Status Last Admin Dose Admin Pantoprazole Sodium (Protonix) 40 mg DAILYAC PO 01/17/19 11:30 01/17/19 11:00 Miscellaneous (Lidoderm Patch Removal) 1 ea QHS MC 01/17/19 21:00 01/17/19 21:00 Cyclobenzaprine HCl (Flexeril) 10 mg Q6HRS PO 01/17/19 12:00 01/17/19 18:34 Polyethylene Glycol (miraLAX PACKET) 17 gm DAILY PO 01/17/19 12:00 01/17/19 13:38 Heparin Sodium (Porcine) (Heparin Sodium) 2,000 unit 1X STAT IV 01/18/19 10:02 01/18/19 10:11 DC 01/18/19 10:21 Lidocaine HCl (Xylocaine-Mpf 1% 2ml Vial) 0.5 ml 1X STAT ID 01/18/19 10:08 01/18/19 10:13 DC 01/18/19 10:20 YULIA DE ANDA III DO Jan 18, 2019 11:07
--- NOTE | 2019-01-18 11:54 | NUR ---
Pt left for dialysis at approx 0900
--- NOTE | 2019-01-18 14:50 | NUR ---
pt returned from dialysis at approx 1400
[2019-01-18 15:00] VITALS: BP 141/69
[2019-01-18] MEDS: FOLIC/VIT B COMP W-C (RENAL) TABLET. PO SCH (15:21)
[2019-01-18] MEDS: APIXABAN 5 MG TABLET. PO SCH ×2 (15:21→21:02)
[2019-01-18] MEDS: LIDOCAINE (700MG/PATCH) PATCH. TD SCH (15:21)
[2019-01-18] MEDS: HYDROcodone/APAP 10/325 1 TAB TABLET PO PRN (15:22)
[2019-01-18] MEDS: FUROSEMIDE 40 MG TABLET. PO SCH (15:23)
[2019-01-18] MEDS: ASPIRIN CHEWABLE 81 MG TABLET. PO SCH (15:25)
[2019-01-18] MEDS: AMIODARONE HCL 200 MG TABLET. PO SCH (15:25)
[2019-01-18] MEDS: METOPROLOL SUCC 24HR ER 25 MG TAB.ER.24H. PO SCH (15:26)
[2019-01-18] MEDS: predniSONE 10 MG TABLET PO SCH (15:26)
[2019-01-18] MEDS: PANTOPRAZOLE 40 MG TABLET.DR. PO SCH (15:32)
[2019-01-18 18:58] VITALS: BP 136/62
[2019-01-18] MEDS: PATCH REMOVAL. MC SCH (21:00)
[2019-01-18] MEDS: ATORVASTATIN CALCIUM 40 MG TABLET. PO SCH (21:02)
[2019-01-18 23:00] VITALS: BP 136/66
[2019-01-19 03:06] VITALS: BP 138/63
[2019-01-19] MEDS: CYCLOBENZAPRINE 10 MG TABLET. PO SCH ×4 (06:00→20:01)
[2019-01-19 07:00] VITALS: BP 142/67
[2019-01-19] MEDS: ALBUTEROL SULFATE 2.5 MG/3 ML NEBU. NEB SCH ×4 (07:46→20:00)
[2019-01-19] MEDS: BUDESONIDE 0.5 MG/2 ML NEBU. NEB SCH ×2 (07:46→20:11)
[2019-01-19] MEDS: APIXABAN 5 MG TABLET. PO SCH ×3 (08:32→14:27)
[2019-01-19] MEDS: ASPIRIN CHEWABLE 81 MG TABLET. PO SCH (08:32)
[2019-01-19] MEDS: METOPROLOL SUCC 24HR ER 25 MG TAB.ER.24H. PO SCH (08:32)
[2019-01-19] MEDS: FOLIC/VIT B COMP W-C (RENAL) TABLET. PO SCH (08:32)
[2019-01-19] MEDS: predniSONE 10 MG TABLET PO SCH (08:32)
[2019-01-19] MEDS: FUROSEMIDE 40 MG TABLET. PO SCH (08:33)
[2019-01-19] MEDS: PANTOPRAZOLE 40 MG TABLET.DR. PO SCH (08:33)
[2019-01-19] MEDS: LIDOCAINE (700MG/PATCH) PATCH. TD SCH (08:34)
[2019-01-19] MEDS: AMIODARONE HCL 200 MG TABLET. PO SCH (08:34)
[2019-01-19] MEDS: POLYETHYLENE GLYCOL 3350 17 GM PACKET. PO SCH (08:34)
[2019-01-19 09:59] LABS: BASO % 1 % (0-3); EOS # 0.1 x10^3/uL (0.0-0.7); EOS % 2 % (0-3); HEMOGLOBIN 11.5 g/dL (12.0-15.5); LYMPH # 0.6 x10^3/uL (1.0-4.8); LYMPH % 11 % (24-48); MEAN CORPUSCULAR HEMOGLOBIN 32 pg (25-35); MEAN CORPUSCULAR HGB CONC 32 g/dL (31-37); MEAN CORPUSCULAR VOLUME 101 fL (79-100); MONO # 0.6 x10^3/uL (0.0-1.1); MONO % 12 % (0-9); NEUT # 3.9 x10^3/uL (1.8-7.7); NEUT % 74 % (31-73); PLATELET COUNT 207 x10^3/uL (140-400); RED BLOOD COUNT 3.58 x10^6/uL (3.50-5.40); RED CELL DISTRIBUTION WIDTH 14.6 % (11.5-14.5); WHITE BLOOD COUNT 5.2 x10^3/uL (4.0-11.0)
[2019-01-19 10:13] LABS: CALCIUM 8.5 mg/dL (8.5-10.1); CREATININE 4.8 mg/dL (0.6-1.0); GFR 10.7; POTASSIUM 4.6 mmol/L (3.5-5.1)
--- NOTE | 2019-01-19 10:31 | PDOC ---
PROGRESS NOTES Subjective Subjective No new complaints. Objective Objective Vital Signs Date Time Temp Pulse Resp B/P (MAP) Pulse Ox O2 Delivery O2 Flow Rate FiO2 01/19/19 08:34 68 142/67 01/19/19 07:47 95 Nasal Cannula 3.0 01/19/19 07:00 98.8 18 98.8 Intake and Output 01/19/19 06:59 Intake Total 510 ml Balance 510 ml Intake Oral 510 ml Physical Exam Physical Exam Back pain is under control and she is sitting up in bedside chair and does not seem to ne in any significant distress. She decoded to stay here for kyphoplasty to be done on 01/21/2019. Assessment Assessment Problems Medical Problems: (1) Compression fracture of L1 lumbar vertebra Status: Acute (2) Compression fracture of L5 vertebra Status: Acute (3) End stage renal disease on dialysis Status: Acute (4) Symptomatic bradycardia Status: Acute Plan Plan of Care Agree with plans for kyphoplasty. Comment Review of Relevant I have reviewed the following items mykel (where applicable) has been applied. Labs Laboratory Tests Test 01/17/19 11:54 01/17/19 17:17 01/17/19 20:47 01/18/19 07:08 Glucose (Fingerstick) 136 mg/dL (70-99) 200 mg/dL (70-99) 192 mg/dL (70-99) 84 mg/dL (70-99) Test 01/18/19 09:30 01/18/19 17:24 01/18/19 20:50 01/19/19 08:06 Sodium Level 140 mmol/L (136-145) Potassium Level 4.4 mmol/L (3.5-5.1) Chloride Level 102 mmol/L (98-107) Carbon Dioxide Level 27 mmol/L (21-32) Anion Gap 11 (6-14) Blood Urea Nitrogen 42 mg/dL (7-20) Creatinine 7.4 mg/dL (0.6-1.0) Estimated GFR (Cockcroft-Gault) 6.5 Glucose Level 112 mg/dL (70-99) Calcium Level 8.1 mg/dL (8.5-10.1) Phosphorus Level 5.8 mg/dL (2.6-4.7) Magnesium Level 1.9 mg/dL (1.8-2.4) Albumin 2.6 g/dL (3.4-5.0) Glucose (Fingerstick) 158 mg/dL (70-99) 156 mg/dL (70-99) 69 mg/dL (70-99) Test 01/19/19 09:35 White Blood Count 5.2 x10^3/uL (4.0-11.0) Red Blood Count 3.58 x10^6/uL (3.50-5.40) Hemoglobin 11.5 g/dL (12.0-15.5) Hematocrit 36.0 % (36.0-47.0) Mean Corpuscular Volume 101 fL (79-100) Mean Corpuscular Hemoglobin 32 pg (25-35) Mean Corpuscular Hemoglobin Concent 32 g/dL (31-37) Red Cell Distribution Width 14.6 % (11.5-14.5) Platelet Count 207 x10^3/uL (140-400) Neutrophils (%) (Auto) 74 % (31-73) Lymphocytes (%) (Auto) 11 % (24-48) Monocytes (%) (Auto) 12 % (0-9) Eosinophils (%) (Auto) 2 % (0-3) Basophils (%) (Auto) 1 % (0-3) Neutrophils # (Auto) 3.9 x10^3/uL (1.8-7.7) Lymphocytes # (Auto) 0.6 x10^3/uL (1.0-4.8) Monocytes # (Auto) 0.6 x10^3/uL (0.0-1.1) Eosinophils # (Auto) 0.1 x10^3/uL (0.0-0.7) Basophils # (Auto) 0.0 x10^3/uL (0.0-0.2) Sodium Level 139 mmol/L (136-145) Potassium Level 4.6 mmol/L (3.5-5.1) Chloride Level 101 mmol/L (98-107) Carbon Dioxide Level 32 mmol/L (21-32) Anion Gap 6 (6-14) Blood Urea Nitrogen 24 mg/dL (7-20) Creatinine 4.8 mg/dL (0.6-1.0) Estimated GFR (Cockcroft-Gault) 10.7 Glucose Level 115 mg/dL (70-99) Calcium Level 8.5 mg/dL (8.5-10.1) Laboratory Tests Test 01/18/19 17:24 01/18/19 20:50 01/19/19 08:06 01/19/19 09:35 Glucose (Fingerstick) 158 mg/dL (70-99) 156 mg/dL (70-99) 69 mg/dL (70-99) White Blood Count 5.2 x10^3/uL (4.0-11.0) Red Blood Count 3.58 x10^6/uL (3.50-5.40) Hemoglobin 11.5 g/dL (12.0-15.5) Hematocrit 36.0 % (36.0-47.0) Mean Corpuscular Volume 101 fL (79-100) Mean Corpuscular Hemoglobin 32 pg (25-35) Mean Corpuscular Hemoglobin Concent 32 g/dL (31-37) Red Cell Distribution Width 14.6 % (11.5-14.5) Platelet Count 207 x10^3/uL (140-400) Neutrophils (%) (Auto) 74 % (31-73) Lymphocytes (%) (Auto) 11 % (24-48) Monocytes (%) (Auto) 12 % (0-9) Eosinophils (%) (Auto) 2 % (0-3) Basophils (%) (Auto) 1 % (0-3) Neutrophils # (Auto) 3.9 x10^3/uL (1.8-7.7) Lymphocytes # (Auto) 0.6 x10^3/uL (1.0-4.8) Monocytes # (Auto) 0.6 x10^3/uL (0.0-1.1) Eosinophils # (Auto) 0.1 x10^3/uL (0.0-0.7) Basophils # (Auto) 0.0 x10^3/uL (0.0-0.2) Sodium Level 139 mmol/L (136-145) Potassium Level 4.6 mmol/L (3.5-5.1) Chloride Level 101 mmol/L (98-107) Carbon Dioxide Level 32 mmol/L (21-32) Anion Gap 6 (6-14) Blood Urea Nitrogen 24 mg/dL (7-20) Creatinine 4.8 mg/dL (0.6-1.0) Estimated GFR (Cockcroft-Gault) 10.7 Glucose Level 115 mg/dL (70-99) Calcium Level 8.5 mg/dL (8.5-10.1) Medications Current Medications Fentanyl Citrate (Fentanyl 2ml Vial) 50 mcg 1X ONCE IV Last administered on 01/16/19at 05:35; Start 01/16/19 at 05:15; Stop 01/16/19 at 05:16; Status DC Ondansetron HCl (Zofran) 4 mg 1X ONCE IV Last administered on 01/16/19at 05:34; Start 01/16/19 at 05:15; Stop 01/16/19 at 05:16; Status DC Ondansetron HCl (Zofran) 4 mg PRN Q8HRS PRN IV NAUSEA/VOMITING; Start 01/16/19 at 05:15; Stop 01/17/19 at 05:14; Status DC Fentanyl Citrate (Fentanyl 2ml Vial) 50 mcg PRN Q1HR PRN IV PAIN; Start 01/16/19 at 05:15; Stop 01/17/19 at 05:14; Status DC Acetaminophen (Tylenol) 650 mg PRN Q4HRS PRN PO FEVER; Start 01/16/19 at 05:15; Stop 01/17/19 at 05:14; Status DC Dextrose (Dextrose 50%-Water Syringe) 12.5 gm PRN Q15MIN PRN IV SEE COMMENTS Last administered on 01/16/19at 07:46; Start 01/16/19 at 07:45 Dextrose (Dextrose 50%-Water Syringe) 25 gm STK-MED ONCE IV ; Start 01/16/19 at 07:43; Stop 01/16/19 at 07:43; Status DC Sodium Chloride 1,000 ml @ 1,000 mls/hr Q1H PRN IV hypotension; Start 01/16/19 at 13:55; Stop 01/16/19 at 19:54; Status DC Acetaminophen (Tylenol) 500 mg 1X PRN PRN PO MILD PAIN / TEMP; Start 01/16/19 at 14:00; Stop 01/16/19 at 19:00; Status DC Diphenhydramine HCl (Benadryl) 25 mg 1X PRN PRN IV ITCHING; Start 01/16/19 at 14:00; Stop 01/16/19 at 19:00; Status DC Diphenhydramine HCl (Benadryl) 25 mg 1X PRN PRN IV ITCHING; Start 01/16/19 at 14:00; Stop 01/16/19 at 19:00; Status DC Labetalol HCl (Normodyne Iv Push) 10 mg PRN Q1HR PRN IVP SBP > 180; Start 01/16/19 at 14:00; Stop 01/17/19 at 13:59; Status DC Sodium Chloride 1,000 ml @ 400 mls/hr Q2H30M PRN IV PATENCY; Start 01/16/19 at 13:55; Stop 01/17/19 at 01:54; Status DC Info (PHARMACY MONITORING -- do not chart) 1 each PRN DAILY PRN MC SEE COMMENTS; Start 01/16/19 at 14:00 Lidocaine HCl (Xylocaine-Mpf 1% 2ml Vial) 2 ml STK-MED ONCE .ROUTE ; Start 01/16/19 at 14:03; Stop 01/16/19 at 14:03; Status DC Amiodarone HCl (Cordarone) 200 mg DAILY PO Last administered on 01/19/19at 08:34; Start 01/17/19 at 09:00 Aspirin (Children'S Aspirin) 81 mg DAILY PO Last administered on 01/19/19 08:32; Start 01/17/19 at 09:00 Atorvastatin Calcium (Lipitor) 40 mg HS PO Last administered on 01/18/19at 21:02; Start 01/16/19 at 21:00 Acetaminophen/ Codeine Phosphate (Tylenol #3) 1 tab PRN Q6HRS PRN PO MILD TO MOD PAIN Last administered on 01/17/19at 09:21; Start 01/16/19 at 18:00 Albuterol Sulfate (Ventolin Neb Soln) 2.5 mg PRN Q6HRS PRN NEB SHORTNESS OF BREATH; Start 01/16/19 at 18:00 Apixaban (Eliquis) 5 mg BID PO Last administered on 01/19/19 08:32; Start 01/16/19 at 21:00 Vitamin B Complex/ Vitamin C (Marina-Jayme) 1 tab DAILY PO Last administered on 01/19/19 08:32; Start 01/17/19 at 09:00 Furosemide (Lasix) 40 mg DAILY PO Last administered on 01/19/19 08:33; Start 01/17/19 at 09:00 Hydroxyzine HCl (Atarax) 50 mg MoWeFr@0900 PO ; Start 01/18/19 at 09:00 Metoprolol Succinate (Toprol Xl) 25 mg DAILY PO Last administered on 01/19/19 08:32; Start 01/17/19 at 09:00 Budesonide (Pulmicort) 0.5 mg RTBID NEB Last administered on 01/19/19 07:46; Start 01/16/19 at 20:00 Albuterol Sulfate (Ventolin Neb Soln) 2.5 mg RTQID NEB Last administered on 01/19/19 07:46; Start 01/16/19 at 20:00 Lidocaine HCl (Xylocaine-Mpf 1% 2ml Vial) 2 ml STK-MED ONCE .ROUTE ; Start 01/16/19 at 14:00; Stop 01/17/19 at 09:03; Status DC Acetaminophen/ Hydrocodone Bitart (Lortab 10/325) 1 tab PRN Q6HRS PRN PO SEVERE PAIN Last administered on 01/18/19 15:22; Start 01/17/19 at 10:30 Prednisone (Prednisone) 10 mg DAILY PO Last administered on 01/19/19 08:32; Start 01/17/19 at 11:00 Pantoprazole Sodium (Protonix) 40 mg DAILYAC PO Last administered on 01/19/19 08:33; Start 01/17/19 at 11:30 Lidocaine (Lidoderm) 1 patch DAILY TD Last administered on 01/19/19 08:34; Start 01/17/19 at 11:00 Miscellaneous (Lidoderm Patch Removal) 1 ea QHS MC Last administered on 01/18/19 21:00; Start 01/17/19 at 21:00 Cyclobenzaprine HCl (Flexeril) 10 mg Q6HRS PO Last administered on 01/18/19 17:42; Start 01/17/19 at 12:00 Polyethylene Glycol (miraLAX PACKET) 17 gm DAILY PO Last administered on 01/19/19 08:34; Start 01/17/19 at 12:00 Lidocaine HCl (Xylocaine-Mpf 1% 2ml Vial) 2 ml STK-MED ONCE .ROUTE ; Start 01/18/19 at 09:25; Stop 01/18/19 at 09:25; Status DC Heparin Sodium (Porcine) (Heparin Sodium) 2,000 unit 1X STAT IV Last administered on 01/18/19at 10:21; Start 01/18/19 at 10:02; Stop 01/18/19 at 10:11; Status DC Sodium Chloride 1,000 ml @ 1,000 mls/hr Q1H PRN IV hypotension; Start 01/18/19 at 10:02; Stop 01/18/19 at 16:01; Status DC Acetaminophen (Tylenol) 500 mg 1X PRN PRN PO MILD PAIN / TEMP; Start 01/18/19 at 10:15; Stop 01/19/19 at 10:14; Status DC Diphenhydramine HCl (Benadryl) 25 mg 1X PRN PRN IV ITCHING; Start 01/18/19 at 10:15; Stop 01/19/19 at 10:14; Status DC Diphenhydramine HCl (Benadryl) 25 mg 1X PRN PRN IV ITCHING; Start 01/18/19 at 10:15; Stop 01/19/19 at 10:14; Status DC Sodium Chloride 1,000 ml @ 400 mls/hr Q2H30M PRN IV PATENCY; Start 01/18/19 at 10:02; Stop 01/18/19 at 22:01; Status DC Info (PHARMACY MONITORING -- do not chart) 1 each PRN DAILY PRN MC SEE COMMENTS; Start 01/18/19 at 10:15 Lidocaine HCl (Xylocaine-Mpf 1% 2ml Vial) 0.5 ml 1X STAT ID Last administered on 01/18/19at 10:20; Start 01/18/19 at 10:08; Stop 01/18/19 at 10:13; Status DC Active Scripts Active Tylenol With Codeine #3 Tablet (Acetaminophen/Codeine Phosphate) 1 Each Tablet 1 Tab PO PRN Q6HRS PRN Amiodarone Hcl 200 Mg Tablet 200 Mg PO DAILY 30 Days Eliquis (Apixaban) 5 Mg Tablet 5 Mg PO BID MDD ` Reported Metoprolol Succinate ( Xl ) (Metoprolol Succinate) 25 Mg Tab.er.24h 1 Tab PO DAILY Aspirin 81 Mg Tab.chew 1 Tab PO DAILY Lipitor (Atorvastatin Calcium) 40 Mg Tablet 40 Mg PO HS Furosemide 40 Mg Tablet 40 Mg PO DAILY Symbicort 160-4.5 Mcg Inhaler (Budesonide/Formoterol Fumarate) 10.2 Gm Hfa.aer.ad 2 Puff IH BID Proair Hfa Inhaler (Albuterol Sulfate) 8.5 Gm Hfa.aer.ad 1 Puff INH PRN Q6HRS PRN Marina-Jayme Tablet (Folic Acid/Vitamin B Comp W-C) 0.8 Mg Tablet 0.8 Mg PO DAILY Hydroxyzine Hcl 25 Mg Tablet 50 Mg PO QMWF Vitals/I & O Vital Sign - Last 24 Hours 01/18/19 01/18/19 01/18/19 01/18/19 15:00 15:22 15:25 15:26 Temp 98.4 98.4 Pulse 100 110 104 Resp 18 B/P (MAP) 141/69 (93) 129/53 129/53 Pulse Ox 95 98 O2 Delivery Nasal Cannula Nasal Cannula O2 Flow Rate 3.0 3.0 01/18/19 01/18/19 01/18/19 01/18/19 15:57 16:22 18:58 20:14 Temp 97.9 97.9 Pulse 91 Resp 18 B/P (MAP) 136/62 (86) Pulse Ox 95 95 100 O2 Delivery Nasal Cannula Nasal Cannula Nasal Cannula Nasal Cannula O2 Flow Rate 3.0 3.0 2.5 3.0 01/18/19 01/18/19 01/19/19 01/19/19 20:31 23:00 03:06 07:00 Temp 98.1 97.8 98.8 98.1 97.8 98.8 Pulse 73 68 68 Resp 16 18 18 B/P (MAP) 136/66 (89) 138/63 (88) 142/67 (92) Pulse Ox 95 98 98 98 O2 Delivery Nasal Cannula Nasal Cannula Nasal Cannula Nasal Cannula O2 Flow Rate 3.0 3.0 3.0 3.0 01/19/19 01/19/19 01/19/19 07:47 08:32 08:34 Pulse 68 68 B/P (MAP) 142/67 142/67 Pulse Ox 95 O2 Delivery Nasal Cannula O2 Flow Rate 3.0 Intake and Output 01/18/19 01/18/19 01/19/19 14:59 22:59 06:59 Intake Total 510 ml Balance 510 ml DEVIN JOHNSON MD Jan 19, 2019 10:31
--- NOTE | 2019-01-19 10:45 | PDOC ---
[facility] PROGRESS NOTE Chief Complaint Chief Complaint Back pain ESRD Hyperkalemia History of Present Illness History of Present Illness Pt seen and examined at bedside Pt was sitting up, legs off the bed feeling better today Pt was not a candidate for outpatient kyphoplasty so will remain in the hospital for inpatient surgery Charts and labs reviewed OSIRIS LOYA 01/18/19 Pt seen and examined in Dialysis Pt was feeling better, upright, doing a sodoku puzzle Pt wants to go home for the weekend and come back on Monday for her kyphoplasty. Everyone is in agreement with this plan. Charts and labs reviewed OSIRIS LOYA 01/17/19 Pt seen and examined at bedside Still complains of back pain Agreed to have surgery if needed Awaiting neurosurgery consult from Dr. Bower Charts and labs reviewed OSIRIS LOYA Vitals/I&O Vitals/I&O: Vital Signs Date Time Temp Pulse Resp B/P (MAP) Pulse Ox O2 Delivery O2 Flow Rate FiO2 01/19/19 08:34 68 142/67 01/19/19 07:47 95 Nasal Cannula 3.0 01/19/19 07:00 98.8 18 98.8 I & O 01/18/19 01/18/19 01/19/19 15:00 23:00 07:00 Intake Total 510 ml Balance 510 ml Physical Exam General: Alert, Oriented X3, Cooperative, No acute distress Heart: Regular rate (SR/SB 50s), Normal S1, Normal S2, Other (4/6 systolic murmur to LLS border) Lungs: Clear Abdomen: Soft, No tenderness Extremities: No clubbing, No cyanosis, No edema Skin: No breakdown, No significant lesion Labs Labs: Laboratory Tests Test 01/18/19 17:24 01/18/19 20:50 01/19/19 08:06 01/19/19 09:35 Glucose (Fingerstick) 158 mg/dL (70-99) 156 mg/dL (70-99) 69 mg/dL (70-99) White Blood Count 5.2 x10^3/uL (4.0-11.0) Red Blood Count 3.58 x10^6/uL (3.50-5.40) Hemoglobin 11.5 g/dL (12.0-15.5) Hematocrit 36.0 % (36.0-47.0) Mean Corpuscular Volume 101 fL (79-100) Mean Corpuscular Hemoglobin 32 pg (25-35) Mean Corpuscular Hemoglobin Concent 32 g/dL (31-37) Red Cell Distribution Width 14.6 % (11.5-14.5) Platelet Count 207 x10^3/uL (140-400) Neutrophils (%) (Auto) 74 % (31-73) Lymphocytes (%) (Auto) 11 % (24-48) Monocytes (%) (Auto) 12 % (0-9) Eosinophils (%) (Auto) 2 % (0-3) Basophils (%) (Auto) 1 % (0-3) Neutrophils # (Auto) 3.9 x10^3/uL (1.8-7.7) Lymphocytes # (Auto) 0.6 x10^3/uL (1.0-4.8) Monocytes # (Auto) 0.6 x10^3/uL (0.0-1.1) Eosinophils # (Auto) 0.1 x10^3/uL (0.0-0.7) Basophils # (Auto) 0.0 x10^3/uL (0.0-0.2) Sodium Level 139 mmol/L (136-145) Potassium Level 4.6 mmol/L (3.5-5.1) Chloride Level 101 mmol/L (98-107) Carbon Dioxide Level 32 mmol/L (21-32) Anion Gap 6 (6-14) Blood Urea Nitrogen 24 mg/dL (7-20) Creatinine 4.8 mg/dL (0.6-1.0) Estimated GFR (Cockcroft-Gault) 10.7 Glucose Level 115 mg/dL (70-99) Calcium Level 8.5 mg/dL (8.5-10.1) Review of Systems Review of Systems: Denies n/v/d Denies SOA Assessment and Plan Assessmemt and Plan Problems Medical Problems: (1) Compression fracture of L1 lumbar vertebra Status: Acute (2) Compression fracture of L5 vertebra Status: Acute (3) End stage renal disease on dialysis Status: Acute (4) Symptomatic bradycardia Status: Acute Assessment Compression fracture of L1 vertebra Compression fracture of L5 vertebra ESRD Bradycardia Plan Cardiac monitoring Awaiting kyphoplasty surgery on Monday Appreciate neurosurg consult HD M, W, F DVT prophylaxis Full code PT/OT Comment Review of Relevant I have reviewed the following items mykel (where applicable) has been applied. YULIA DE ANDA III DO Jan 19, 2019 10:45
[2019-01-19 11:26] VITALS: BP 147/51
--- NOTE | 2019-01-19 12:59 | PDOC ---
SUBJECTIVE ROS Follow-up for ESRD on hemodialysis Monday Pain is better managed currently. Patient does however complain of some amount of hallucinations CVS: no Orthopnea, no CP RESP: no being off ch SOB, no TAYLOR GI: no Nausea, no Vomiting : no Dysuria, no Urgency OBJECTIVE Vital Signs Vital Signs Date Time Temp Pulse Resp B/P (MAP) Pulse Ox O2 Delivery O2 Flow Rate FiO2 01/19/19 11:26 98.3 73 18 147/51 (83) 92 Nasal Cannula 3.0 98.3 I & 0 Intake and Output 01/19/19 07:00 Intake Total 510 ml Balance 510 ml Intake Oral 510 ml PHYSICAL EXAM Physical Exam GEN: Awake, Oriented x 3, In no distress EYES: Vision Unchanged, Conjunctiva Normal EN: No EN Drainage, Mucous Membranes moist NECK: no JVD, min JVP, Supple, no Thyromegaly CVS: S1S2, ? soft Murmur, No Gallop, No Rub,no Edema RESP: no Rales, no Rhonchi,no Acc. Muscle Use, bilaterally decreased air entry GI: BS + ve, NO Bruit, Non Tender, Non Distended : no CVA tenderness, no Suprapubic Tenderness DIAGNOSIS/ASSESSMENT Assessment & Plan ESRD: Current fluid and E-lyte status does not necessitate emergent need for dialysis. Will re-evaluate for dialysis in the am and continue on MWF schedule. Hyperkalemia at presentation: Appears to have resolved currently after dialysis yesterday ANEMIA: Hemoglobin currently 11.5 and hence no Epogen has been ordered at this time HTN: Current BP meds as reviewed. See orders for changes. BONE & MINERAL: Continue current regimen of binders and follow phosphorus levels. Binder regimen as needed. Back pain: Unclear to me if hallucinations related to medications. I believe it would be appropriate to use 1 or 2 doses of Toradol if absolutely required to manage pain using [id number] medications Discussed Plan of Care with the patient at bedside COMMENT/RELEVANT DATA Meds Current Medications Medications (Trade) Dose Ordered Sig/Eric Start Time Stop Time Status Last Admin Dose Admin Acetaminophen (Tylenol) 500 mg 1X PRN PRN 01/18/19 10:15 01/19/19 10:14 DC Acetaminophen/ Codeine Phosphate (Tylenol #3) 1 tab PRN Q6HRS PRN 01/16/19 18:00 01/17/19 09:21 1 TAB Acetaminophen/ Hydrocodone Bitart (Lortab 10325) 1 tab PRN Q6HRS PRN 01/17/19 10:30 01/18/19 15:22 1 TAB Albuterol Sulfate (Ventolin Neb Soln) 2.5 mg RTQID 01/16/19 20:00 01/19/19 11:21 2.5 MG Amiodarone HCl (Cordarone) 200 mg DAILY 01/17/19 09:00 01/19/19 08:34 200 MG Apixaban (Eliquis) 5 mg BID 01/16/19 21:00 01/19/19 08:32 5 MG Aspirin (Children'S Aspirin) 81 mg DAILY 01/17/19 09:00 01/19/19 08:32 81 MG Atorvastatin Calcium (Lipitor) 40 mg HS 01/16/19 21:00 01/18/19 21:02 40 MG Budesonide (Pulmicort) 0.5 mg RTBID 01/16/19 20:00 01/19/19 07:46 0.5 MG Cyclobenzaprine HCl (Flexeril) 10 mg Q6HRS 01/17/19 12:00 01/18/19 17:42 10 MG Dextrose (Dextrose 50%-Water Syringe) 25 gm STK-MED ONCE 01/16/19 07:43 01/16/19 07:43 DC Diphenhydramine HCl (Benadryl) 25 mg 1X PRN PRN 01/18/19 10:15 01/19/19 10:14 DC Fentanyl Citrate (Fentanyl 2ml Vial) 50 mcg PRN Q1HR PRN 01/16/19 05:15 01/17/19 05:14 DC Furosemide (Lasix) 40 mg DAILY 01/17/19 09:00 01/19/19 08:33 40 MG Heparin Sodium (Porcine) (Heparin Sodium) 2,000 unit 1X STAT 01/18/19 10:02 01/18/19 10:11 DC 01/18/19 10:21 2,000 UNIT Hydroxyzine HCl (Atarax) 50 mg MoWeFr@0900 01/18/19 09:00 Info (PHARMACY MONITORING -- do not chart) 1 each PRN DAILY PRN 01/18/19 10:15 Labetalol HCl (Normodyne Iv Push) 10 mg PRN Q1HR PRN 01/16/19 14:00 01/17/19 13:59 DC Lidocaine (Lidoderm) 1 patch DAILY 01/17/19 11:00 01/19/19 08:34 1 PATCH Lidocaine HCl (Xylocaine-Mpf 1% 2ml Vial) 0.5 ml 1X STAT 01/18/19 10:08 01/18/19 10:13 DC 01/18/19 10:20 0.5 ML Metoprolol Succinate (Toprol Xl) 25 mg DAILY 01/17/19 09:00 01/19/19 08:32 25 MG Miscellaneous (Lidoderm Patch Removal) 1 ea QHS 01/17/19 21:00 01/18/19 21:00 1 EA Ondansetron HCl (Zofran) 4 mg PRN Q8HRS PRN 01/16/19 05:15 01/17/19 05:14 DC Pantoprazole Sodium (Protonix) 40 mg DAILYAC 01/17/19 11:30 01/19/19 08:33 40 MG Polyethylene Glycol (miraLAX PACKET) 17 gm DAILY 01/17/19 12:00 01/19/19 08:34 17 GM Prednisone (Prednisone) 10 mg DAILY 01/17/19 11:00 01/19/19 08:32 10 MG Sodium Chloride 1,000 ml @ 400 mls/hr Q2H30M PRN 01/18/19 10:02 01/18/19 22:01 DC Vitamin B Complex/ Vitamin C (Marina-Jayme) 1 tab DAILY 01/17/19 09:00 01/19/19 08:32 1 TAB Lab Laboratory Tests Test 01/18/19 17:24 01/18/19 20:50 01/19/19 08:06 01/19/19 09:35 Glucose (Fingerstick) 158 mg/dL (70-99) 156 mg/dL (70-99) 69 mg/dL (70-99) White Blood Count 5.2 x10^3/uL (4.0-11.0) Red Blood Count 3.58 x10^6/uL (3.50-5.40) Hemoglobin 11.5 g/dL (12.0-15.5) Hematocrit 36.0 % (36.0-47.0) Mean Corpuscular Volume 101 fL (79-100) Mean Corpuscular Hemoglobin 32 pg (25-35) Mean Corpuscular Hemoglobin Concent 32 g/dL (31-37) Red Cell Distribution Width 14.6 % (11.5-14.5) Platelet Count 207 x10^3/uL (140-400) Neutrophils (%) (Auto) 74 % (31-73) Lymphocytes (%) (Auto) 11 % (24-48) Monocytes (%) (Auto) 12 % (0-9) Eosinophils (%) (Auto) 2 % (0-3) Basophils (%) (Auto) 1 % (0-3) Neutrophils # (Auto) 3.9 x10^3/uL (1.8-7.7) Lymphocytes # (Auto) 0.6 x10^3/uL (1.0-4.8) Monocytes # (Auto) 0.6 x10^3/uL (0.0-1.1) Eosinophils # (Auto) 0.1 x10^3/uL (0.0-0.7) Basophils # (Auto) 0.0 x10^3/uL (0.0-0.2) Sodium Level 139 mmol/L (136-145) Potassium Level 4.6 mmol/L (3.5-5.1) Chloride Level 101 mmol/L (98-107) Carbon Dioxide Level 32 mmol/L (21-32) Anion Gap 6 (6-14) Blood Urea Nitrogen 24 mg/dL (7-20) Creatinine 4.8 mg/dL (0.6-1.0) Estimated GFR (Cockcroft-Gault) 10.7 Glucose Level 115 mg/dL (70-99) Calcium Level 8.5 mg/dL (8.5-10.1) Test 01/19/19 11:58 Glucose (Fingerstick) 91 mg/dL (70-99) Results All relevant outside records, renal labs, imaging studies, telemetry/EKG's were reviewed. WENDI SUAREZ MD Jan 19, 2019 12:59
[2019-01-19 15:00] VITALS: BP 105/57
[2019-01-19 19:20] VITALS: BP 195/68
[2019-01-19] MEDS ORDERED: ONDANSETRON PF 4 MG/2 ML VIAL. IVP PRN (19:30)
[2019-01-19] MEDS: PATCH REMOVAL. MC SCH (20:00)
[2019-01-19] MEDS: ATORVASTATIN CALCIUM 40 MG TABLET. PO SCH (20:00)
[2019-01-19 22:45] VITALS: BP 133/61
[2019-01-20 03:00] VITALS: BP 140/79
[2019-01-20] MEDS: CYCLOBENZAPRINE 10 MG TABLET. PO SCH ×4 (04:23→20:44)
[2019-01-20 04:48] LABS: BASO % 1 % (0-3); EOS # 0.1 x10^3/uL (0.0-0.7); EOS % 1 % (0-3); HEMATOCRIT 30.7 % (36.0-47.0); HEMOGLOBIN 9.8 g/dL (12.0-15.5); LYMPH # 0.3 x10^3/uL (1.0-4.8); LYMPH % 4 % (24-48); MEAN CORPUSCULAR HEMOGLOBIN 32 pg (25-35); MEAN CORPUSCULAR HGB CONC 32 g/dL (31-37); MEAN CORPUSCULAR VOLUME 100 fL (79-100); MONO # 0.6 x10^3/uL (0.0-1.1); MONO % 9 % (0-9); NEUT # 6.1 x10^3/uL (1.8-7.7); NEUT % 86 % (31-73); PLATELET COUNT 191 x10^3/uL (140-400); RED BLOOD COUNT 3.06 x10^6/uL (3.50-5.40); RED CELL DISTRIBUTION WIDTH 13.9 % (11.5-14.5); WHITE BLOOD COUNT 7.1 x10^3/uL (4.0-11.0)
[2019-01-20 05:03] LABS: CALCIUM 8.1 mg/dL (8.5-10.1); CREATININE 6.2 mg/dL (0.6-1.0); POTASSIUM 4.8 mmol/L (3.5-5.1)
[2019-01-20 05:52] LABS: % ATYL 1 % (0-0); % BANDS 3 % (0-9); % BASOS 1 % (0-3); % EOS 2 % (0-5); % LYMPHS 4 % (24-48); % MONOS 11 % (0-10); % SEGS 78 % (35-66); PLT ESTIMATE ADEQUATE (ADEQUATE)
[2019-01-20 07:00] VITALS: BP 122/57
[2019-01-20] MEDS: ALBUTEROL SULFATE 2.5 MG/3 ML NEBU. NEB SCH ×4 (07:30→21:26)
[2019-01-20] MEDS: BUDESONIDE 0.5 MG/2 ML NEBU. NEB SCH ×2 (07:30→21:26)
[2019-01-20] MEDS: LIDOCAINE (700MG/PATCH) PATCH. TD SCH (08:06)
[2019-01-20] MEDS: METOPROLOL SUCC 24HR ER 25 MG TAB.ER.24H. PO SCH (08:07)
[2019-01-20] MEDS: FOLIC/VIT B COMP W-C (RENAL) TABLET. PO SCH (08:07)
[2019-01-20] MEDS: FUROSEMIDE 40 MG TABLET. PO SCH (08:07)
[2019-01-20] MEDS: AMIODARONE HCL 200 MG TABLET. PO SCH (08:07)
[2019-01-20] MEDS: PANTOPRAZOLE 40 MG TABLET.DR. PO SCH (08:08)
[2019-01-20] MEDS: ASPIRIN CHEWABLE 81 MG TABLET. PO SCH (08:08)
[2019-01-20] MEDS: predniSONE 10 MG TABLET PO SCH (08:08)
[2019-01-20] MEDS: POLYETHYLENE GLYCOL 3350 17 GM PACKET. PO SCH (08:08)
--- NOTE | 2019-01-20 10:11 | PDOC ---
[employer] [facility] PROGRESS NOTE Chief Complaint Chief Complaint Back pain ESRD Hyperkalemia History of Present Illness History of Present Illness 01/20/19 Pt seen and examined at bedside Pt was sitting up right Pt co about refilling her anxiety medication On 3.0 NC Chart and labs reviewed D/w VINCENZO Pt seen and examined at bedside Pt was sitting up, legs off the bed feeling better today Pt was not a candidate for outpatient kyphoplasty so will remain in the hospital for inpatient surgery Charts and labs reviewed OSIRIS LOYA 01/18/19 Pt seen and examined in Dialysis Pt was feeling better, upright, doing a sodoku puzzle Pt wants to go home for the weekend and come back on Monday for her kyphoplasty. Everyone is in agreement with this plan. Charts and labs reviewed OSIRIS LOYA 01/17/19 Pt seen and examined at bedside Still complains of back pain Agreed to have surgery if needed Awaiting neurosurgery consult from Dr. Bower Charts and labs reviewed OSIRIS LOYA Vitals/I&O Vitals/I&O: Vital Signs Date Time Temp Pulse Resp B/P (MAP) Pulse Ox O2 Delivery O2 Flow Rate FiO2 01/20/19 08:07 72 127/57 01/20/19 08:00 Nasal Cannula 3.0 01/20/19 07:33 94 01/20/19 07:00 97.7 18 97.7 I & O 01/19/19 01/19/19 01/20/19 14:59 22:59 06:59 Intake Total 240 ml 300 ml Output Total 100 ml Balance 240 ml -100 ml 300 ml Physical Exam General: Alert, Oriented X3, Cooperative, No acute distress Heart: Regular rate (SR/SB 50s), Normal S1, Normal S2, Other (4/6 systolic murmur to LLS border) Lungs: Clear Abdomen: Soft, No tenderness Extremities: No clubbing, No cyanosis, No edema Skin: No breakdown, No significant lesion Labs Labs: Laboratory Tests Test 01/19/19 11:58 01/19/19 17:25 01/19/19 20:44 01/20/19 04:30 Glucose (Fingerstick) 91 mg/dL (70-99) 173 mg/dL (70-99) 104 mg/dL (70-99) White Blood Count 7.1 x10^3/uL (4.0-11.0) Red Blood Count 3.06 x10^6/uL (3.50-5.40) Hemoglobin 9.8 g/dL (12.0-15.5) Hematocrit 30.7 % (36.0-47.0) Mean Corpuscular Volume 100 fL (79-100) Mean Corpuscular Hemoglobin 32 pg (25-35) Mean Corpuscular Hemoglobin Concent 32 g/dL (31-37) Red Cell Distribution Width 13.9 % (11.5-14.5) Platelet Count 191 x10^3/uL (140-400) Neutrophils (%) (Auto) 86 % (31-73) Lymphocytes (%) (Auto) 4 % (24-48) Monocytes (%) (Auto) 9 % (0-9) Eosinophils (%) (Auto) 1 % (0-3) Basophils (%) (Auto) 1 % (0-3) Neutrophils # (Auto) 6.1 x10^3/uL (1.8-7.7) Lymphocytes # (Auto) 0.3 x10^3/uL (1.0-4.8) Monocytes # (Auto) 0.6 x10^3/uL (0.0-1.1) Eosinophils # (Auto) 0.1 x10^3/uL (0.0-0.7) Basophils # (Auto) 0.0 x10^3/uL (0.0-0.2) Segmented Neutrophils % 78 % (35-66) Band Neutrophils % 3 % (0-9) Lymphocytes % 4 % (24-48) Atypical Lymphocytes % (Manual) 1 % (0-0) Monocytes % 11 % (0-10) Eosinophils % 2 % (0-5) Basophils % 1 % (0-3) Platelet Estimate Adequate (ADEQUATE) Sodium Level 139 mmol/L (136-145) Potassium Level 4.8 mmol/L (3.5-5.1) Chloride Level 100 mmol/L (98-107) Carbon Dioxide Level 31 mmol/L (21-32) Anion Gap 8 (6-14) Blood Urea Nitrogen 42 mg/dL (7-20) Creatinine 6.2 mg/dL (0.6-1.0) Estimated GFR (Cockcroft-Gault) 8.0 Glucose Level 165 mg/dL (70-99) Calcium Level 8.1 mg/dL (8.5-10.1) Test 01/20/19 07:55 Glucose (Fingerstick) 118 mg/dL (70-99) Review of Systems Review of Systems: Pt co hallucinations Pt co anxiety Assessment and Plan Assessmemt and Plan Problems Medical Problems: (1) Compression fracture of L1 lumbar vertebra Status: Acute (2) Compression fracture of L5 vertebra Status: Acute (3) End stage renal disease on dialysis Status: Acute (4) Symptomatic bradycardia Status: Acute Assessment Compression fracture of L1 vertebra Compression fracture of L5 vertebra ESRD Bradycardia Anxiety Plan Cardiac monitoring Awaiting kyphoplasty surgery on Monday Consult IR Appreciate neurosurg consult HD M, W, F DVT prophylaxis Full code PT/OT Comment Review of Relevant I have reviewed the following items mykel (where applicable) has been applied. Medications: Current Medications Medications (Trade) Dose Ordered Sig/Eric Route PRN Reason Start Time Stop Time Status Last Admin Dose Admin Ondansetron HCl (Zofran) 4 mg PRN Q4HRS PRN IVP NAUSEA/VOMITING 01/19/19 19:30 01/19/19 20:00 YULIA DE ANDA III DO Jan 20, 2019 10:11
[2019-01-20 11:07] VITALS: BP 135/61
[2019-01-20 15:15] VITALS: BP 146/64
[2019-01-20] MEDS: APIXABAN 5 MG TABLET. PO SCH (18:51)
[2019-01-20 19:05] VITALS: BP 150/79
[2019-01-20] MEDS: ATORVASTATIN CALCIUM 40 MG TABLET. PO SCH (20:43)
[2019-01-20] MEDS: PATCH REMOVAL. MC SCH (20:44)
[2019-01-20 23:20] VITALS: BP 148/81
[2019-01-21] VITALS (14 sets, daily range): BP systolic 148–187; BP diastolic 55–91
[2019-01-21 03:46] LABS: BASO % 1 % (0-3); EOS # 0.1 x10^3/uL (0.0-0.7); EOS % 1 % (0-3); HEMATOCRIT 29.3 % (36.0-47.0); HEMOGLOBIN 9.5 g/dL (12.0-15.5); LYMPH # 0.6 x10^3/uL (1.0-4.8); LYMPH % 10 % (24-48); MEAN CORPUSCULAR HEMOGLOBIN 32 pg (25-35); MEAN CORPUSCULAR HGB CONC 32 g/dL (31-37); MEAN CORPUSCULAR VOLUME 100 fL (79-100); MONO # 0.7 x10^3/uL (0.0-1.1); MONO % 12 % (0-9); NEUT # 4.4 x10^3/uL (1.8-7.7); NEUT % 76 % (31-73); PLATELET COUNT 212 x10^3/uL (140-400); RED BLOOD COUNT 2.94 x10^6/uL (3.50-5.40); RED CELL DISTRIBUTION WIDTH 14.4 % (11.5-14.5); WHITE BLOOD COUNT 5.8 x10^3/uL (4.0-11.0)
[2019-01-21 04:02] LABS: CALCIUM 8.3 mg/dL (8.5-10.1); CREATININE 7.8 mg/dL (0.6-1.0); GFR 6.1; POTASSIUM 5.7 mmol/L (3.5-5.1)
[2019-01-21] MEDS: CYCLOBENZAPRINE 10 MG TABLET. PO SCH ×4 (05:04→21:20)
[2019-01-21] MEDS: PANTOPRAZOLE 40 MG TABLET.DR. PO SCH (07:30)
[2019-01-21] MEDS: ALBUTEROL SULFATE 2.5 MG/3 ML NEBU. NEB SCH ×4 (08:00→19:41)
[2019-01-21] MEDS: BUDESONIDE 0.5 MG/2 ML NEBU. NEB SCH ×2 (08:00→19:41)
[2019-01-21] MEDS ORDERED: IV NORMAL SALINE 1000ML BAG 1,000 ML IV PRN ×2 (08:29)
[2019-01-21] MEDS ORDERED: ACETAMINOPHEN 500 MG TABLET PO PRN (08:30)
[2019-01-21] MEDS ORDERED: DIALYSIS PATIENT. MC PRN (08:30)
[2019-01-21] MEDS ORDERED: diphenhydrAMINE 50 MG/ML VIAL IV PRN ×2 (08:30)
--- NOTE | 2019-01-21 08:30 | NUR ---
Pt to dialysis @ 08
[2019-01-21] MEDS ORDERED: LIDOCAINE 1% PF 2 ML VIAL. ID STA (08:43)
[2019-01-21] MEDS: AMIODARONE HCL 200 MG TABLET. PO SCH (09:00)
[2019-01-21] MEDS: POLYETHYLENE GLYCOL 3350 17 GM PACKET. PO SCH (09:00)
[2019-01-21] MEDS: LIDOCAINE (700MG/PATCH) PATCH. TD SCH (09:00)
[2019-01-21] MEDS: APIXABAN 5 MG TABLET. PO SCH ×2 (09:00→21:00)
[2019-01-21] MEDS: ASPIRIN CHEWABLE 81 MG TABLET. PO SCH (09:00)
[2019-01-21] MEDS: FUROSEMIDE 40 MG TABLET. PO SCH (09:00)
[2019-01-21] MEDS: hydrOXYzine 25 MG TABLET PO SCH (09:00)
[2019-01-21] MEDS: predniSONE 10 MG TABLET PO SCH (09:00)
[2019-01-21] MEDS: METOPROLOL SUCC 24HR ER 25 MG TAB.ER.24H. PO SCH (09:00)
[2019-01-21] MEDS: FOLIC/VIT B COMP W-C (RENAL) TABLET. PO SCH (09:00)
--- NOTE | 2019-01-21 09:39 | PDOC ---
PROGRESS NOTES Subjective Subjective She admits some back pain with moving. Objective Objective Vital Signs Date Time Temp Pulse Resp B/P (MAP) Pulse Ox O2 Delivery O2 Flow Rate FiO2 01/21/19 08:00 Nasal Cannula 3.0 01/21/19 07:00 98.1 78 18 171/74 (106) 94 98.1 Intake and Output 01/21/19 06:59 Intake Total 200 ml Balance 200 ml Intake Oral 200 ml Physical Exam Physical Exam She is supine on dialysis bed and does not seem to be in any distress. Assessment Assessment Problems Medical Problems: (1) Compression fracture of L1 lumbar vertebra Status: Acute (2) Compression fracture of L5 vertebra Status: Acute (3) End stage renal disease on dialysis Status: Acute (4) Symptomatic bradycardia Status: Acute Plan Plan of Care Plans for L1 kyphoplasty this afternoon and home when medically stable. Comment Review of Relevant I have reviewed the following items mykel (where applicable) has been applied. Labs Laboratory Tests Test 01/19/19 11:58 01/19/19 17:25 01/19/19 20:44 01/20/19 04:30 Glucose (Fingerstick) 91 mg/dL (70-99) 173 mg/dL (70-99) 104 mg/dL (70-99) White Blood Count 7.1 x10^3/uL (4.0-11.0) Red Blood Count 3.06 x10^6/uL (3.50-5.40) Hemoglobin 9.8 g/dL (12.0-15.5) Hematocrit 30.7 % (36.0-47.0) Mean Corpuscular Volume 100 fL (79-100) Mean Corpuscular Hemoglobin 32 pg (25-35) Mean Corpuscular Hemoglobin Concent 32 g/dL (31-37) Red Cell Distribution Width 13.9 % (11.5-14.5) Platelet Count 191 x10^3/uL (140-400) Neutrophils (%) (Auto) 86 % (31-73) Lymphocytes (%) (Auto) 4 % (24-48) Monocytes (%) (Auto) 9 % (0-9) Eosinophils (%) (Auto) 1 % (0-3) Basophils (%) (Auto) 1 % (0-3) Neutrophils # (Auto) 6.1 x10^3/uL (1.8-7.7) Lymphocytes # (Auto) 0.3 x10^3/uL (1.0-4.8) Monocytes # (Auto) 0.6 x10^3/uL (0.0-1.1) Eosinophils # (Auto) 0.1 x10^3/uL (0.0-0.7) Basophils # (Auto) 0.0 x10^3/uL (0.0-0.2) Segmented Neutrophils % 78 % (35-66) Band Neutrophils % 3 % (0-9) Lymphocytes % 4 % (24-48) Atypical Lymphocytes % (Manual) 1 % (0-0) Monocytes % 11 % (0-10) Eosinophils % 2 % (0-5) Basophils % 1 % (0-3) Platelet Estimate Adequate (ADEQUATE) Sodium Level 139 mmol/L (136-145) Potassium Level 4.8 mmol/L (3.5-5.1) Chloride Level 100 mmol/L (98-107) Carbon Dioxide Level 31 mmol/L (21-32) Anion Gap 8 (6-14) Blood Urea Nitrogen 42 mg/dL (7-20) Creatinine 6.2 mg/dL (0.6-1.0) Estimated GFR (Cockcroft-Gault) 8.0 Glucose Level 165 mg/dL (70-99) Calcium Level 8.1 mg/dL (8.5-10.1) Test 01/20/19 07:55 01/20/19 11:24 01/20/19 16:44 01/20/19 20:42 Glucose (Fingerstick) 118 mg/dL (70-99) 113 mg/dL (70-99) 235 mg/dL (70-99) 218 mg/dL (70-99) Test 01/21/19 03:00 01/21/19 07:22 White Blood Count 5.8 x10^3/uL (4.0-11.0) Red Blood Count 2.94 x10^6/uL (3.50-5.40) Hemoglobin 9.5 g/dL (12.0-15.5) Hematocrit 29.3 % (36.0-47.0) Mean Corpuscular Volume 100 fL (79-100) Mean Corpuscular Hemoglobin 32 pg (25-35) Mean Corpuscular Hemoglobin Concent 32 g/dL (31-37) Red Cell Distribution Width 14.4 % (11.5-14.5) Platelet Count 212 x10^3/uL (140-400) Neutrophils (%) (Auto) 76 % (31-73) Lymphocytes (%) (Auto) 10 % (24-48) Monocytes (%) (Auto) 12 % (0-9) Eosinophils (%) (Auto) 1 % (0-3) Basophils (%) (Auto) 1 % (0-3) Neutrophils # (Auto) 4.4 x10^3/uL (1.8-7.7) Lymphocytes # (Auto) 0.6 x10^3/uL (1.0-4.8) Monocytes # (Auto) 0.7 x10^3/uL (0.0-1.1) Eosinophils # (Auto) 0.1 x10^3/uL (0.0-0.7) Basophils # (Auto) 0.0 x10^3/uL (0.0-0.2) Sodium Level 139 mmol/L (136-145) Potassium Level 5.7 mmol/L (3.5-5.1) Chloride Level 99 mmol/L (98-107) Carbon Dioxide Level 30 mmol/L (21-32) Anion Gap 10 (6-14) Blood Urea Nitrogen 64 mg/dL (7-20) Creatinine 7.8 mg/dL (0.6-1.0) Estimated GFR (Cockcroft-Gault) 6.1 Glucose Level 138 mg/dL (70-99) Calcium Level 8.3 mg/dL (8.5-10.1) Glucose (Fingerstick) 78 mg/dL (70-99) Laboratory Tests Test 01/20/19 11:24 01/20/19 16:44 01/20/19 20:42 01/21/19 03:00 Glucose (Fingerstick) 113 mg/dL (70-99) 235 mg/dL (70-99) 218 mg/dL (70-99) White Blood Count 5.8 x10^3/uL (4.0-11.0) Red Blood Count 2.94 x10^6/uL (3.50-5.40) Hemoglobin 9.5 g/dL (12.0-15.5) Hematocrit 29.3 % (36.0-47.0) Mean Corpuscular Volume 100 fL (79-100) Mean Corpuscular Hemoglobin 32 pg (25-35) Mean Corpuscular Hemoglobin Concent 32 g/dL (31-37) Red Cell Distribution Width 14.4 % (11.5-14.5) Platelet Count 212 x10^3/uL (140-400) Neutrophils (%) (Auto) 76 % (31-73) Lymphocytes (%) (Auto) 10 % (24-48) Monocytes (%) (Auto) 12 % (0-9) Eosinophils (%) (Auto) 1 % (0-3) Basophils (%) (Auto) 1 % (0-3) Neutrophils # (Auto) 4.4 x10^3/uL (1.8-7.7) Lymphocytes # (Auto) 0.6 x10^3/uL (1.0-4.8) Monocytes # (Auto) 0.7 x10^3/uL (0.0-1.1) Eosinophils # (Auto) 0.1 x10^3/uL (0.0-0.7) Basophils # (Auto) 0.0 x10^3/uL (0.0-0.2) Sodium Level 139 mmol/L (136-145) Potassium Level 5.7 mmol/L (3.5-5.1) Chloride Level 99 mmol/L (98-107) Carbon Dioxide Level 30 mmol/L (21-32) Anion Gap 10 (6-14) Blood Urea Nitrogen 64 mg/dL (7-20) Creatinine 7.8 mg/dL (0.6-1.0) Estimated GFR (Cockcroft-Gault) 6.1 Glucose Level 138 mg/dL (70-99) Calcium Level 8.3 mg/dL (8.5-10.1) Test 01/21/19 07:22 Glucose (Fingerstick) 78 mg/dL (70-99) Medications Current Medications Fentanyl Citrate (Fentanyl 2ml Vial) 50 mcg 1X ONCE IV Last administered on 01/16/19at 05:35; Start 01/16/19 at 05:15; Stop 01/16/19 at 05:16; Status DC Ondansetron HCl (Zofran) 4 mg 1X ONCE IV Last administered on 01/16/19at 05:34; Start 01/16/19 at 05:15; Stop 01/16/19 at 05:16; Status DC Ondansetron HCl (Zofran) 4 mg PRN Q8HRS PRN IV NAUSEA/VOMITING; Start 01/16/19 at 05:15; Stop 01/17/19 at 05:14; Status DC Fentanyl Citrate (Fentanyl 2ml Vial) 50 mcg PRN Q1HR PRN IV PAIN; Start 01/16/19 at 05:15; Stop 01/17/19 at 05:14; Status DC Acetaminophen (Tylenol) 650 mg PRN Q4HRS PRN PO FEVER; Start 01/16/19 at 05:15; Stop 01/17/19 at 05:14; Status DC Dextrose (Dextrose 50%-Water Syringe) 12.5 gm PRN Q15MIN PRN IV SEE COMMENTS Last administered on 01/16/19at 07:46; Start 01/16/19 at 07:45 Dextrose (Dextrose 50%-Water Syringe) 25 gm STK-MED ONCE IV ; Start 01/16/19 at 07:43; Stop 01/16/19 at 07:43; Status DC Sodium Chloride 1,000 ml @ 1,000 mls/hr Q1H PRN IV hypotension; Start 01/16/19 at 13:55; Stop 01/16/19 at 19:54; Status DC Acetaminophen (Tylenol) 500 mg 1X PRN PRN PO MILD PAIN / TEMP; Start 01/16/19 at 14:00; Stop 01/16/19 at 19:00; Status DC Diphenhydramine HCl (Benadryl) 25 mg 1X PRN PRN IV ITCHING; Start 01/16/19 at 14:00; Stop 01/16/19 at 19:00; Status DC Diphenhydramine HCl (Benadryl) 25 mg 1X PRN PRN IV ITCHING; Start 01/16/19 at 14:00; Stop 01/16/19 at 19:00; Status DC Labetalol HCl (Normodyne Iv Push) 10 mg PRN Q1HR PRN IVP SBP > 180; Start 01/16/19 at 14:00; Stop 01/17/19 at 13:59; Status DC Sodium Chloride 1,000 ml @ 400 mls/hr Q2H30M PRN IV PATENCY; Start 01/16/19 at 13:55; Stop 01/17/19 at 01:54; Status DC Info (PHARMACY MONITORING -- do not chart) 1 each PRN DAILY PRN ALVA NORTON; Start 01/16/19 at 14:00 Lidocaine HCl (Xylocaine-Mpf 1% 2ml Vial) 2 ml STK-MED ONCE .ROUTE ; Start 01/16/19 at 14:03; Stop 01/16/19 at 14:03; Status DC Amiodarone HCl (Cordarone) 200 mg DAILY PO Last administered on 01/20/19 08:07; Start 01/17/19 at 09:00 Aspirin (Children'S Aspirin) 81 mg DAILY PO Last administered on 01/20/19 08:08; Start 01/17/19 at 09:00 Atorvastatin Calcium (Lipitor) 40 mg HS PO Last administered on 01/20/19 20:43; Start 01/16/19 at 21:00 Acetaminophen/ Codeine Phosphate (Tylenol #3) 1 tab PRN Q6HRS PRN PO MILD TO MOD PAIN Last administered on 01/17/19 09:21; Start 01/16/19 at 18:00 Albuterol Sulfate (Ventolin Neb Soln) 2.5 mg PRN Q6HRS PRN NEB SHORTNESS OF BREATH; Start 01/16/19 at 18:00 Apixaban (Eliquis) 5 mg BID PO Last administered on 01/19/19 08:32; Start 01/16/19 at 21:00 Vitamin B Complex/ Vitamin C (Marina-Jayme) 1 tab DAILY PO Last administered on 01/20/19 08:07; Start 01/17/19 at 09:00 Furosemide (Lasix) 40 mg DAILY PO Last administered on 01/20/19 08:07; Start 01/17/19 at 09:00 Hydroxyzine HCl (Atarax) 50 mg MoWeFr@0900 PO ; Start 01/18/19 at 09:00 Metoprolol Succinate (Toprol Xl) 25 mg DAILY PO Last administered on 01/20/19 08:07; Start 01/17/19 at 09:00 Budesonide (Pulmicort) 0.5 mg RTBID NEB Last administered on 01/20/19 21:26; Start 01/16/19 at 20:00 Albuterol Sulfate (Ventolin Neb Soln) 2.5 mg RTQID NEB Last administered on 01/20/19at 21:26; Start 01/16/19 at 20:00 Lidocaine HCl (Xylocaine-Mpf 1% 2ml Vial) 2 ml STK-MED ONCE .ROUTE ; Start 01/16/19 at 14:00; Stop 01/17/19 at 09:03; Status DC Acetaminophen/ Hydrocodone Bitart (Lortab 10325) 1 tab PRN Q6HRS PRN PO SEVERE PAIN Last administered on 01/18/19 15:22; Start 01/17/19 at 10:30 Prednisone (Prednisone) 10 mg DAILY PO Last administered on 01/20/19 08:08; Start 01/17/19 at 11:00 Pantoprazole Sodium (Protonix) 40 mg DAILYAC PO Last administered on 01/20/19 08:08; Start 01/17/19 at 11:30 Lidocaine (Lidoderm) 1 patch DAILY TD Last administered on 01/20/19 08:06; Start 01/17/19 at 11:00 Miscellaneous (Lidoderm Patch Removal) 1 ea QHS MC Last administered on 01/20/19 20:44; Start 01/17/19 at 21:00 Cyclobenzaprine HCl (Flexeril) 10 mg Q6HRS PO Last administered on 01/18/19 17:42; Start 01/17/19 at 12:00 Polyethylene Glycol (miraLAX PACKET) 17 gm DAILY PO Last administered on 01/20/19 08:08; Start 01/17/19 at 12:00 Lidocaine HCl (Xylocaine-Mpf 1% 2ml Vial) 2 ml STK-MED ONCE .ROUTE ; Start 01/18/19 at 09:25; Stop 01/18/19 at 09:25; Status DC Heparin Sodium (Porcine) (Heparin Sodium) 2,000 unit 1X STAT IV Last administered on 01/18/19at 10:21; Start 01/18/19 at 10:02; Stop 01/18/19 at 10:11; Status DC Sodium Chloride 1,000 ml @ 1,000 mls/hr Q1H PRN IV hypotension; Start 01/18/19 at 10:02; Stop 01/18/19 at 16:01; Status DC Acetaminophen (Tylenol) 500 mg 1X PRN PRN PO MILD PAIN / TEMP; Start 01/18/19 at 10:15; Stop 01/19/19 at 10:14; Status DC Diphenhydramine HCl (Benadryl) 25 mg 1X PRN PRN IV ITCHING; Start 01/18/19 at 10:15; Stop 01/19/19 at 10:14; Status DC Diphenhydramine HCl (Benadryl) 25 mg 1X PRN PRN IV ITCHING; Start 01/18/19 at 10:15; Stop 01/19/19 at 10:14; Status DC Sodium Chloride 1,000 ml @ 400 mls/hr Q2H30M PRN IV PATENCY; Start 01/18/19 at 10:02; Stop 01/18/19 at 22:01; Status DC Info (PHARMACY MONITORING -- do not chart) 1 each PRN DAILY PRN MC SEE COMMENTS; Start 01/18/19 at 10:15 Lidocaine HCl (Xylocaine-Mpf 1% 2ml Vial) 0.5 ml 1X STAT ID Last administered on 01/18/19at 10:20; Start 01/18/19 at 10:08; Stop 01/18/19 at 10:13; Status DC Ondansetron HCl (Zofran) 4 mg PRN Q4HRS PRN IVP NAUSEA/VOMITING Last administered on 01/19/19at 20:00; Start 01/19/19 at 19:30 Sodium Chloride 1,000 ml @ 1,000 mls/hr Q1H PRN IV hypotension; Start 01/21/19 at 08:29; Stop 01/21/19 at 14:28 Acetaminophen (Tylenol) 500 mg 1X PRN PRN PO MILD PAIN / TEMP; Start 01/21/19 at 08:30; Stop 01/22/19 at 08:29 Diphenhydramine HCl (Benadryl) 25 mg 1X PRN PRN IV ITCHING; Start 01/21/19 at 08:30; Stop 01/22/19 at 08:29 Diphenhydramine HCl (Benadryl) 25 mg 1X PRN PRN IV ITCHING; Start 01/21/19 at 08:30; Stop 01/22/19 at 08:29 Sodium Chloride 1,000 ml @ 400 mls/hr Q2H30M PRN IV PATENCY; Start 01/21/19 at 08:29; Stop 01/21/19 at 20:28 Info (PHARMACY MONITORING -- do not chart) 1 each PRN DAILY PRN MC SEE COMMENTS; Start 01/21/19 at 08:30 Lidocaine HCl (Xylocaine-Mpf 1% 2ml Vial) 0.5 ml 1X STAT ID Last administered on 01/21/19at 09:32; Start 01/21/19 at 08:43; Stop 01/21/19 at 08:46; Status DC Heparin Sodium (Porcine) (Heparin Sodium) 2,000 unit 1X STAT IV ; Start 01/21/19 at 09:30; Stop 01/21/19 at 09:32; Status DC Active Scripts Active Tylenol With Codeine #3 Tablet (Acetaminophen/Codeine Phosphate) 1 Each Tablet 1 Tab PO PRN Q6HRS PRN Amiodarone Hcl 200 Mg Tablet 200 Mg PO DAILY 30 Days Eliquis (Apixaban) 5 Mg Tablet 5 Mg PO BID MDD ` Reported Metoprolol Succinate ( Xl ) (Metoprolol Succinate) 25 Mg Tab.er.24h 1 Tab PO DAILY Aspirin 81 Mg Tab.chew 1 Tab PO DAILY Lipitor (Atorvastatin Calcium) 40 Mg Tablet 40 Mg PO HS Furosemide 40 Mg Tablet 40 Mg PO DAILY Symbicort 160-4.5 Mcg Inhaler (Budesonide/Formoterol Fumarate) 10.2 Gm Hfa.aer.ad 2 Puff IH BID Proair Hfa Inhaler (Albuterol Sulfate) 8.5 Gm Hfa.aer.ad 1 Puff INH PRN Q6HRS PRN Marina-Jayme Tablet (Folic Acid/Vitamin B Comp W-C) 0.8 Mg Tablet 0.8 Mg PO DAILY Hydroxyzine Hcl 25 Mg Tablet 50 Mg PO QMWF Vitals/I & O Vital Sign - Last 24 Hours 01/20/19 01/20/19 01/20/19 01/20/19 11:07 11:35 15:15 16:59 Temp 97.8 97.3 97.8 97.3 Pulse 79 82 Resp 18 20 B/P (MAP) 135/61 (85) 146/64 (91) Pulse Ox 97 99 97 O2 Delivery Nasal Cannula Nasal Cannula Nasal Cannula Nasal Cannula O2 Flow Rate 2.0 3.0 3.0 3.0 10/13/19 10/13/19 10/13/19 10/13/19 19:05 19:15 21:26 23:20 Temp 97.8 97.6 97.8 97.6 Pulse 87 90 Resp 20 20 B/P (MAP) 150/79 (102) 148/81 (103) Pulse Ox 96 97 98 O2 Delivery Nasal Cannula Nasal Cannula Nasal Cannula Nasal Cannula O2 Flow Rate 3.0 3.0 3.0 3.0 01/21/19 01/21/19 01/21/19 02:35 07:00 08:00 Temp 98.1 98.1 98.1 98.1 Pulse 89 78 Resp 18 18 B/P (MAP) 157/85 (109) 171/74 (106) Pulse Ox 99 94 O2 Delivery Nasal Cannula Nasal Cannula Nasal Cannula O2 Flow Rate 3.0 3.0 3.0 Intake and Output 01/20/19 01/20/19 01/21/19 14:59 22:59 06:59 Intake Total 200 ml Balance 200 ml DEVIN JOHNSON MD Jan 21, 2019 09:39
--- NOTE | 2019-01-21 11:35 | PDOC ---
SUBJECTIVE ROS Stable, tolerating Dialysis, No complaints OBJECTIVE Vital Signs Vital Signs Date Time Temp Pulse Resp B/P (MAP) Pulse Ox O2 Delivery O2 Flow Rate FiO2 01/21/19 08:00 Nasal Cannula 3.0 01/21/19 07:00 98.1 78 18 171/74 (106) 94 98.1 I & 0 Intake and Output 01/21/19 07:00 Intake Total 200 ml Balance 200 ml Intake Oral 200 ml PHYSICAL EXAM Physical Exam General: No acute distress HEENT: Mucous membr. moist/pink neck Supple Lungs: CTA Heart:Bradycardic Abdomen: Soft, No tenderness, Extremities: No edema, LUE AV fistula with bruit Skin: No rashes Neuro: Grossly Normal Psych/Mental Status: Mental status NL, Mood NL No Guerrier DIAGNOSIS/ASSESSMENT Assessment & Plan ESRD- On HD MWF under Dr. Ramon's care seen on HD, tolerating well, continue as ordered Hyperkalemia- Intermittent Last admission needed urgent HD, As OP K per P[employer] C[employer]TER has been < 5 -was not a candidate for Valtessa , monitored as OP in the Dialysis unit Anemia- Noted drop in Hgb- defer to Primary GI bleed in june 2018, post EGD Will start PARISA DM - primary managing PENNY- cant tolerate CPAP Low back pain with traumatic mechanical fall: resulting to L1 compression fracture Known asymptomatic SB: Lower HR noted in the past associated with hyperkalemic episode. Otherwise lifevest check unrevelaing of any significant bradyarrhythmias. NICM/chronic systolic CHF: compensated EF 35% NYHA 2 PAFIB: SR/SB, lowest 50s. Hypertension; antihypertensives CAD s/p PCI/stent to the RCA: Cath earlier this year with non-obstructive CAD, clnically stable COMMENT/RELEVANT DATA Meds Current Medications Medications (Trade) Dose Ordered Sig/Eric Start Time Stop Time Status Last Admin Dose Admin Acetaminophen (Tylenol) 500 mg 1X PRN PRN 01/21/19 08:30 01/22/19 08:29 Acetaminophen/ Codeine Phosphate (Tylenol #3) 1 tab PRN Q6HRS PRN 01/16/19 18:00 01/17/19 09:21 1 TAB Acetaminophen/ Hydrocodone Bitart (Lortab 10/325) 1 tab PRN Q6HRS PRN 01/17/19 10:30 01/18/19 15:22 1 TAB Albuterol Sulfate (Ventolin Neb Soln) 2.5 mg RTQID 01/16/19 20:00 01/20/19 21:26 2.5 MG Amiodarone HCl (Cordarone) 200 mg DAILY 01/17/19 09:00 01/20/19 08:07 200 MG Apixaban (Eliquis) 5 mg BID 01/16/19 21:00 01/19/19 08:32 5 MG Aspirin (Children'S Aspirin) 81 mg DAILY 01/17/19 09:00 01/20/19 08:08 81 MG Atorvastatin Calcium (Lipitor) 40 mg HS 01/16/19 21:00 01/20/19 20:43 40 MG Budesonide (Pulmicort) 0.5 mg RTBID 01/16/19 20:00 01/20/19 21:26 0.5 MG Cyclobenzaprine HCl (Flexeril) 10 mg Q6HRS 01/17/19 12:00 01/18/19 17:42 10 MG Dextrose (Dextrose 50%-Water Syringe) 25 gm STK-MED ONCE 01/16/19 07:43 01/16/19 07:43 DC Diphenhydramine HCl (Benadryl) 25 mg 1X PRN PRN 01/21/19 08:30 01/22/19 08:29 Fentanyl Citrate (Fentanyl 2ml Vial) 50 mcg PRN Q1HR PRN 01/16/19 05:15 01/17/19 05:14 DC Furosemide (Lasix) 40 mg DAILY 01/17/19 09:00 01/20/19 08:07 40 MG Heparin Sodium (Porcine) (Heparin Sodium) 2,000 unit 1X STAT 01/21/19 09:30 01/21/19 09:32 DC Hydroxyzine HCl (Atarax) 50 mg MoWeFr@0900 01/18/19 09:00 Info (PHARMACY MONITORING -- do not chart) 1 each PRN DAILY PRN 01/21/19 08:30 Labetalol HCl (Normodyne Iv Push) 10 mg PRN Q1HR PRN 01/16/19 14:00 01/17/19 13:59 DC Lidocaine (Lidoderm) 1 patch DAILY 01/17/19 11:00 01/20/19 08:06 1 PATCH Lidocaine HCl (Xylocaine-Mpf 1% 2ml Vial) 0.5 ml 1X STAT 01/21/19 08:43 01/21/19 08:46 DC 01/21/19 09:32 0.5 ML Metoprolol Succinate (Toprol Xl) 25 mg DAILY 01/17/19 09:00 01/20/19 08:07 25 MG Miscellaneous (Lidoderm Patch Removal) 1 ea QHS 01/17/19 21:00 01/20/19 20:44 1 EA Ondansetron HCl (Zofran) 4 mg PRN Q4HRS PRN 01/19/19 19:30 01/19/19 20:00 4 MG Pantoprazole Sodium (Protonix) 40 mg DAILYAC 01/17/19 11:30 01/20/19 08:08 40 MG Polyethylene Glycol (miraLAX PACKET) 17 gm DAILY 01/17/19 12:00 01/20/19 08:08 17 GM Prednisone (Prednisone) 10 mg DAILY 01/17/19 11:00 01/20/19 08:08 10 MG Sodium Chloride 1,000 ml @ 400 mls/hr Q2H30M PRN 01/21/19 08:29 01/21/19 20:28 Vitamin B Complex/ Vitamin C (Marina-Jayme) 1 tab DAILY 01/17/19 09:00 01/20/19 08:07 1 TAB Lab Laboratory Tests Test 01/20/19 16:44 01/20/19 20:42 01/21/19 03:00 01/21/19 07:22 Glucose (Fingerstick) 235 mg/dL (70-99) 218 mg/dL (70-99) 78 mg/dL (70-99) White Blood Count 5.8 x10^3/uL (4.0-11.0) Red Blood Count 2.94 x10^6/uL (3.50-5.40) Hemoglobin 9.5 g/dL (12.0-15.5) Hematocrit 29.3 % (36.0-47.0) Mean Corpuscular Volume 100 fL (79-100) Mean Corpuscular Hemoglobin 32 pg (25-35) Mean Corpuscular Hemoglobin Concent 32 g/dL (31-37) Red Cell Distribution Width 14.4 % (11.5-14.5) Platelet Count 212 x10^3/uL (140-400) Neutrophils (%) (Auto) 76 % (31-73) Lymphocytes (%) (Auto) 10 % (24-48) Monocytes (%) (Auto) 12 % (0-9) Eosinophils (%) (Auto) 1 % (0-3) Basophils (%) (Auto) 1 % (0-3) Neutrophils # (Auto) 4.4 x10^3/uL (1.8-7.7) Lymphocytes # (Auto) 0.6 x10^3/uL (1.0-4.8) Monocytes # (Auto) 0.7 x10^3/uL (0.0-1.1) Eosinophils # (Auto) 0.1 x10^3/uL (0.0-0.7) Basophils # (Auto) 0.0 x10^3/uL (0.0-0.2) Sodium Level 139 mmol/L (136-145) Potassium Level 5.7 mmol/L (3.5-5.1) Chloride Level 99 mmol/L (98-107) Carbon Dioxide Level 30 mmol/L (21-32) Anion Gap 10 (6-14) Blood Urea Nitrogen 64 mg/dL (7-20) Creatinine 7.8 mg/dL (0.6-1.0) Estimated GFR (Cockcroft-Gault) 6.1 Glucose Level 138 mg/dL (70-99) Calcium Level 8.3 mg/dL (8.5-10.1) Results All relevant outside records, renal labs, imaging studies, telemetry/EKG's were reviewed. DESIREE MELARA MD Jan 21, 2019 11:35
[2019-01-21 11:38] LABS: PROTHROMBIN TIME PATIENT 11.9 SEC (11.7-14.0)
[2019-01-21] MEDS ORDERED: LIDOCAINE WITH 8.4% SOD BICARB 3 ML DISP.SYRIN. ONE (11:46)
[2019-01-21] MEDS: HYDROcodone/APAP 10/325 1 TAB TABLET PO PRN (12:28)
[2019-01-21] MEDS ORDERED: GADOTERATE 5 MMOL/10ML VIAL. ONE (12:31)
--- NOTE | 2019-01-21 12:43 | EKG ---
[facility] [address] [place] [address] Test Date: 2019-01-21 Test Time: 12:17:36 Pat Name: WANDA PRABHAKAR Department: Room: 211 1 Gender: F Mold Setter: : 1945 Requested By: DESIREE MELARA Order Number: [id number] Reading MD: Measurements Intervals [place] Rate: 99 P: -90 LA: 118 QRS: -66 QRSD: 152 T: 90 QT: 382 QTc: 490 Interpretive Statements SUPRAVENTRICULAR RHYTHM ABNORMAL LEFT AXIS DEVIATION RIGHT BUNDLE BRANCH BLOCK RVH WITH REPOLARIZATION ABNORMALITY QRS(T) CONTOUR ABNORMALITY CONSISTENT WITH INFERIOR INFARCT POSSIBLY RECENT ABNORMAL ECG RI6.01 Unconfirmed report No previous ECG available for comparison
[2019-01-21] MEDS ORDERED: IOHEXOL 240 MG/ML 50ML VIAL. ONE (14:03)
[2019-01-21] MEDS ORDERED: MIDAZOLAM HCL/PF 2 MG/2 ML VIAL. ONE (15:06)
--- NOTE | 2019-01-21 15:06 | NUR ---
SS following up with discharge planning. PT/OT recommended assisted unit. SS met with pt to discuss assisted unit and discharge planning. Pt requested referrals be phoned and faxed to [facility], ; fax [phone], and [facility], ; fax [phone]. SS received notification from [facility] that they are not currently in network with pt's [employer]. SS phoned and faxed referral to [facility]. SS will await acceptance decision and insurance determination and will proceed accordingly with discharge planning.
[2019-01-21] MEDS ORDERED: fentaNYL PF VIAL 100 MCG/2 ML VIAL ONE (15:07)
[2019-01-21] MEDS ORDERED: ceFAZolin 1GM IVPB FOR OMNI 100 ML IV ONE (15:27)
[2019-01-21] MEDS ORDERED: MIDAZOLAM HCL/PF 2 MG/2 ML VIAL. IV ONE (15:30)
[2019-01-21] MEDS ORDERED: LIDOCAINE WITH 8.4% SOD BICARB 3 ML DISP.SYRIN. IJ ONE (15:30)
[2019-01-21] MEDS ORDERED: fentaNYL PF VIAL 100 MCG/2 ML VIAL IV ONE (15:30)
[2019-01-21] MEDS ORDERED: GADOTERATE 5 MMOL/10ML VIAL. IVP ONE (15:30)
--- NOTE | 2019-01-21 16:18 | RAD ---
Fluoroscopically guided kyphoplasty Indication:Pathologic L1 L1 compression fracture, refractory to conservative treatment measures. Fluoro time:4.7 minutes Dose area product: 17.97 Gycm2 Moderate sedation: The patient was appropriately monitored by a qualified independent observer throughout the course of the moderate sedation. [id number] sedation time:20 Consent: The risks and benefits of the procedure were discussed with the patient. Informed consent was obtained. The patient was brought to the fluoroscopy suite and placed in the prone position. A timeout procedure was performed. Preprocedural antibiotics were administered. Procedure: The overlying skin was prepped and draped in the usual sterile fashion. All elements of maximal sterile barrier technique including the use of a cap, mask, sterile gown, sterile gloves, large sterile sheet, appropriate hand hygiene, and 2% chlorhexidine for cutaneous antisepsis (or acceptable alternative antiseptic per current guidelines) were followed for this procedure. Using a left transpedicular approach, and direct fluoroscopic guidance, a trocar needle was advanced to the posterior third of the targeted vertebral body. Vertebral augmentation balloon was then coaxially introduced through the needle, into the more central vertebral body and was deployed. A curved cement delivery needle was advanced into the contralateral vertebral body. Contrast opacified polymethylmethacrylate was then very slowly and carefully introduced through the vertebral augmentation needle, using strict fluoroscopic control. Once adequate filling had been achieved the needles were removed and manual pressure was held. No significant extravasation or complication was identified. Sterile dressing was applied. Patient tolerated the procedure well, without apparent complication. Impression: Fluoroscopically guided kyphoplasty, L1
--- NOTE | 2019-01-21 16:46 | NUR ---
SS following up with discharge planning. Pt accepted at [facility], ; fax [phone], pending insurance authorization. SS will await insurance determination and will proceed accordingly.
--- NOTE | 2019-01-21 16:58 | NUR ---
Patient and family refused prednisone. Said that it makes the patient hallucinate.
--- NOTE | 2019-01-21 17:28 | PDOC ---
DARSHANA PEPE CABLE TENDER 01/21/19 1728: CARDIO Progress Notes Date and Time Date of Service 01/21/19 Time of Evaluation 1310 Subjective Subjective: Other (episode of CP in HD. Thinks this was GERD) Vitals Vitals Vital Signs Date Time Temp Pulse Resp B/P (MAP) Pulse Ox O2 Delivery O2 Flow Rate FiO2 01/21/19 16:15 97 Nasal Cannula 3.0 01/21/19 16:01 91 18 01/21/19 14:48 98.2 165/70 (101) 98.2 Weight Weight [ ] Input and Output Intake and Output Intake and Output 01/21/19 07:00 Intake Total 200 ml Balance 200 ml Intake Oral 200 ml Laboratory Labs Laboratory Tests Test 01/20/19 20:42 01/21/19 03:00 01/21/19 07:22 01/21/19 11:15 Glucose (Fingerstick) 218 mg/dL (70-99) 78 mg/dL (70-99) White Blood Count 5.8 x10^3/uL (4.0-11.0) Red Blood Count 2.94 x10^6/uL (3.50-5.40) Hemoglobin 9.5 g/dL (12.0-15.5) Hematocrit 29.3 % (36.0-47.0) Mean Corpuscular Volume 100 fL (79-100) Mean Corpuscular Hemoglobin 32 pg (25-35) Mean Corpuscular Hemoglobin Concent 32 g/dL (31-37) Red Cell Distribution Width 14.4 % (11.5-14.5) Platelet Count 212 x10^3/uL (140-400) Neutrophils (%) (Auto) 76 % (31-73) Lymphocytes (%) (Auto) 10 % (24-48) Monocytes (%) (Auto) 12 % (0-9) Eosinophils (%) (Auto) 1 % (0-3) Basophils (%) (Auto) 1 % (0-3) Neutrophils # (Auto) 4.4 x10^3/uL (1.8-7.7) Lymphocytes # (Auto) 0.6 x10^3/uL (1.0-4.8) Monocytes # (Auto) 0.7 x10^3/uL (0.0-1.1) Eosinophils # (Auto) 0.1 x10^3/uL (0.0-0.7) Basophils # (Auto) 0.0 x10^3/uL (0.0-0.2) Sodium Level 139 mmol/L (136-145) Potassium Level 5.7 mmol/L (3.5-5.1) Chloride Level 99 mmol/L (98-107) Carbon Dioxide Level 30 mmol/L (21-32) Anion Gap 10 (6-14) Blood Urea Nitrogen 64 mg/dL (7-20) Creatinine 7.8 mg/dL (0.6-1.0) Estimated GFR (Cockcroft-Gault) 6.1 Glucose Level 138 mg/dL (70-99) Calcium Level 8.3 mg/dL (8.5-10.1) Prothrombin Time 11.9 SEC (11.7-14.0) Prothromb Time International Ratio 0.9 (0.8-1.1) Activated Partial Thromboplast Time 38 SEC (24-38) Test 01/21/19 13:26 01/21/19 16:56 Glucose (Fingerstick) 74 mg/dL (70-99) 62 mg/dL (70-99) Physical Exam HEENT: Neck Supple W Full Motion Chest: Symmetric LUNGS: Clear to Auscultation Heart: S1S2, RRR Abdomen: Soft N/T Extremities: No Edema Neurology: alert, follow commands Assessment Assessment 1. Low back pain with traumatic mechanical fall: resulting to L1 compression fracture. Kyphoplasty planned later today 2. Known asymptomatic SB: Lower HR noted in the past associated with hyperkalemic episode. Otherwise LifeVest check unrevelaing of any significant bradyarrhythmias. 3. NICM/chronic systolic CHF: compensated EF 35% NYHA 2 4. PAFIB: SR/SB, lowest 50s. 5. Hypertension; controlled 6. ESRD with hyperkalemia: valtessa suggested before 7. CAD s/p PCI/stent to the RCA: Cath earlier this year with non-obstructive CAD, clinically stable. 8. Chest pain, atypical. Occurred in HD. [place] like GERD. No SOA, diaphoresis, dizziness, or nausea/vomiting 9. DM2/HLP Recommendation May proceed with kyphoplasty as planned Continue fluid off loading/management via HD. Amiodarone and Toprol for rhythm/rate control Continue with secondary prevention. Consider discontinuing Eliquis due to fall risk Re-evaluated LV systolic function on an outpatient basis . FRANK REED MD 01/21/19 2012: CARDIO Progress Notes Assessment Assessment Patient seen and examined. Agree with BEEF SKINNER's assessment and plan. CP very atypical and noncardiac CAD clinically stable OK to proceed with kyphoplasty PAF maintaining SR Chr systolic HF compensated Continue HD per nephrology DARSHANA PEPE APRN Jan 21, 2019 17:28 FRANK REED MD Jan 21, 2019 20:12
[2019-01-21] MEDS: PATCH REMOVAL. MC SCH (21:00)
[2019-01-21] MEDS ORDERED: DARBEPOETIN ALFA 60 MCG/0.3 ML DISP.SYRIN. SQ SCH (21:00)
[2019-01-21] MEDS: ATORVASTATIN CALCIUM 40 MG TABLET. PO SCH (21:18)
[2019-01-22 03:05] VITALS: BP 124/46
[2019-01-22 04:51] LABS: BASO # 0.1 x10^3/uL (0.0-0.2); BASO % 1 % (0-3); EOS # 0.2 x10^3/uL (0.0-0.7); EOS % 3 % (0-3); HEMATOCRIT 29.3 % (36.0-47.0); HEMOGLOBIN 9.5 g/dL (12.0-15.5); LYMPH # 0.5 x10^3/uL (1.0-4.8); LYMPH % 10 % (24-48); MEAN CORPUSCULAR HEMOGLOBIN 32 pg (25-35); MEAN CORPUSCULAR HGB CONC 33 g/dL (31-37); MEAN CORPUSCULAR VOLUME 99 fL (79-100); MONO # 0.7 x10^3/uL (0.0-1.1); MONO % 13 % (0-9); NEUT # 3.9 x10^3/uL (1.8-7.7); NEUT % 74 % (31-73); PLATELET COUNT 217 x10^3/uL (140-400); RED BLOOD COUNT 2.98 x10^6/uL (3.50-5.40); RED CELL DISTRIBUTION WIDTH 14.2 % (11.5-14.5); WHITE BLOOD COUNT 5.2 x10^3/uL (4.0-11.0)
[2019-01-22 05:14] LABS: CALCIUM 8.1 mg/dL (8.5-10.1); CREATININE 4.4 mg/dL (0.6-1.0); GFR 11.8
[2019-01-22] MEDS: CYCLOBENZAPRINE 10 MG TABLET. PO SCH ×3 (05:31→18:00)
[2019-01-22 07:00] VITALS: BP 133/67
[2019-01-22] MEDS: DEXTROSE 50% 25 GM / 50ML DISP.SYRIN. IV PRN (07:13)
[2019-01-22] MEDS: PANTOPRAZOLE 40 MG TABLET.DR. PO SCH (07:16)
--- NOTE | 2019-01-22 08:05 | PDOC ---
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 She was found on CT scan of lumbar spine done on 01/14/2019, which showed new L1 vertebral body compression fracture. S/p kyphoplasty of L1. The patient lives with her and had steps to manage to get in the house, she feels she cannot manage home at this time. She has been seen by PMR, neurosurgery, nephrology, and cardiology (is awaiting AICD placement). She has some left sided pain from compression wrap, feels her back is much better after kyphoplasty. No CP or SOB. 01/20/19 Pt seen and examined at bedside Pt was sitting up right Pt co about refilling her anxiety medication On 3.0 NC Chart and labs reviewed D/w RN Pt seen and examined at bedside Pt was sitting up, legs off the bed feeling better today Pt was not a candidate for outpatient kyphoplasty so will remain in the hospital for inpatient surgery Charts and labs reviewed OSIRIS LOYA 01/18/19 Pt seen and examined in Dialysis Pt was feeling better, upright, doing a sodoku puzzle Pt wants to go home for the weekend and come back on Monday for her kyphoplasty. Everyone is in agreement with this plan. Charts and labs reviewed OSIRIS LOYA 01/17/19 Pt seen and examined at bedside Still complains of back pain Agreed to have surgery if needed Awaiting neurosurgery consult from Dr. Bower Charts and labs reviewed OSIRIS RN Vitals Vitals Vital Signs Date Time Temp Pulse Resp B/P (MAP) Pulse Ox O2 Delivery O2 Flow Rate FiO2 01/22/19 03:05 98.4 93 18 124/46 (72) 98 Nasal Cannula 3.0 98.4 Physical Exam General: Alert, Oriented X3, Cooperative, No acute distress Heart: Regular rate (SR/SB 50s), Normal S1, Normal S2, Other (4/6 systolic murmur to LLS border) Lungs: Clear Abdomen: Soft, No tenderness Extremities: No clubbing, No cyanosis, No edema Skin: No breakdown, No significant lesion Labs LABS Laboratory Tests Test 01/21/19 11:15 01/21/19 13:26 01/21/19 16:56 01/21/19 20:32 Prothrombin Time 11.9 SEC (11.7-14.0) Prothromb Time International Ratio 0.9 (0.8-1.1) Activated Partial Thromboplast Time 38 SEC (24-38) Glucose (Fingerstick) 74 mg/dL (70-99) 62 mg/dL (70-99) 115 mg/dL (70-99) Test 01/22/19 04:45 01/22/19 07:12 01/22/19 07:36 White Blood Count 5.2 x10^3/uL (4.0-11.0) Red Blood Count 2.98 x10^6/uL (3.50-5.40) Hemoglobin 9.5 g/dL (12.0-15.5) Hematocrit 29.3 % (36.0-47.0) Mean Corpuscular Volume 99 fL (79-100) Mean Corpuscular Hemoglobin 32 pg (25-35) Mean Corpuscular Hemoglobin Concent 33 g/dL (31-37) Red Cell Distribution Width 14.2 % (11.5-14.5) Platelet Count 217 x10^3/uL (140-400) Neutrophils (%) (Auto) 74 % (31-73) Lymphocytes (%) (Auto) 10 % (24-48) Monocytes (%) (Auto) 13 % (0-9) Eosinophils (%) (Auto) 3 % (0-3) Basophils (%) (Auto) 1 % (0-3) Neutrophils # (Auto) 3.9 x10^3/uL (1.8-7.7) Lymphocytes # (Auto) 0.5 x10^3/uL (1.0-4.8) Monocytes # (Auto) 0.7 x10^3/uL (0.0-1.1) Eosinophils # (Auto) 0.2 x10^3/uL (0.0-0.7) Basophils # (Auto) 0.1 x10^3/uL (0.0-0.2) Sodium Level 143 mmol/L (136-145) Potassium Level 5.0 mmol/L (3.5-5.1) Chloride Level 104 mmol/L (98-107) Carbon Dioxide Level 33 mmol/L (21-32) Anion Gap 6 (6-14) Blood Urea Nitrogen 20 mg/dL (7-20) Creatinine 4.4 mg/dL (0.6-1.0) Estimated GFR (Cockcroft-Gault) 11.8 Glucose Level 66 mg/dL (70-99) Calcium Level 8.1 mg/dL (8.5-10.1) Glucose (Fingerstick) 54 mg/dL (70-99) 117 mg/dL (70-99) Assessment and Plan Assessmemt and Plan Problems Medical Problems: (1) Compression fracture of L1 lumbar vertebra Status: Acute (2) Compression fracture of L5 vertebra Status: Acute (3) End stage renal disease on dialysis Status: Acute (4) Symptomatic bradycardia Status: Acute Comment Review of Relevant I have reviewed the following items mykel (where applicable) has been applied. Labs Laboratory Tests Test 01/20/19 11:24 01/20/19 16:44 01/20/19 20:42 01/21/19 03:00 Glucose (Fingerstick) 113 mg/dL (70-99) 235 mg/dL (70-99) 218 mg/dL (70-99) White Blood Count 5.8 x10^3/uL (4.0-11.0) Red Blood Count 2.94 x10^6/uL (3.50-5.40) Hemoglobin 9.5 g/dL (12.0-15.5) Hematocrit 29.3 % (36.0-47.0) Mean Corpuscular Volume 100 fL (79-100) Mean Corpuscular Hemoglobin 32 pg (25-35) Mean Corpuscular Hemoglobin Concent 32 g/dL (31-37) Red Cell Distribution Width 14.4 % (11.5-14.5) Platelet Count 212 x10^3/uL (140-400) Neutrophils (%) (Auto) 76 % (31-73) Lymphocytes (%) (Auto) 10 % (24-48) Monocytes (%) (Auto) 12 % (0-9) Eosinophils (%) (Auto) 1 % (0-3) Basophils (%) (Auto) 1 % (0-3) Neutrophils # (Auto) 4.4 x10^3/uL (1.8-7.7) Lymphocytes # (Auto) 0.6 x10^3/uL (1.0-4.8) Monocytes # (Auto) 0.7 x10^3/uL (0.0-1.1) Eosinophils # (Auto) 0.1 x10^3/uL (0.0-0.7) Basophils # (Auto) 0.0 x10^3/uL (0.0-0.2) Sodium Level 139 mmol/L (136-145) Potassium Level 5.7 mmol/L (3.5-5.1) Chloride Level 99 mmol/L (98-107) Carbon Dioxide Level 30 mmol/L (21-32) Anion Gap 10 (6-14) Blood Urea Nitrogen 64 mg/dL (7-20) Creatinine 7.8 mg/dL (0.6-1.0) Estimated GFR (Cockcroft-Gault) 6.1 Glucose Level 138 mg/dL (70-99) Calcium Level 8.3 mg/dL (8.5-10.1) Test 01/21/19 07:22 01/21/19 11:15 01/21/19 13:26 01/21/19 16:56 Glucose (Fingerstick) 78 mg/dL (70-99) 74 mg/dL (70-99) 62 mg/dL (70-99) Prothrombin Time 11.9 SEC (11.7-14.0) Prothromb Time International Ratio 0.9 (0.8-1.1) Activated Partial Thromboplast Time 38 SEC (24-38) Test 01/21/19 20:32 01/22/19 04:45 01/22/19 07:12 01/22/19 07:36 Glucose (Fingerstick) 115 mg/dL (70-99) 54 mg/dL (70-99) 117 mg/dL (70-99) White Blood Count 5.2 x10^3/uL (4.0-11.0) Red Blood Count 2.98 x10^6/uL (3.50-5.40) Hemoglobin 9.5 g/dL (12.0-15.5) Hematocrit 29.3 % (36.0-47.0) Mean Corpuscular Volume 99 fL (79-100) Mean Corpuscular Hemoglobin 32 pg (25-35) Mean Corpuscular Hemoglobin Concent 33 g/dL (31-37) Red Cell Distribution Width 14.2 % (11.5-14.5) Platelet Count 217 x10^3/uL (140-400) Neutrophils (%) (Auto) 74 % (31-73) Lymphocytes (%) (Auto) 10 % (24-48) Monocytes (%) (Auto) 13 % (0-9) Eosinophils (%) (Auto) 3 % (0-3) Basophils (%) (Auto) 1 % (0-3) Neutrophils # (Auto) 3.9 x10^3/uL (1.8-7.7) Lymphocytes # (Auto) 0.5 x10^3/uL (1.0-4.8) Monocytes # (Auto) 0.7 x10^3/uL (0.0-1.1) Eosinophils # (Auto) 0.2 x10^3/uL (0.0-0.7) Basophils # (Auto) 0.1 x10^3/uL (0.0-0.2) Sodium Level 143 mmol/L (136-145) Potassium Level 5.0 mmol/L (3.5-5.1) Chloride Level 104 mmol/L (98-107) Carbon Dioxide Level 33 mmol/L (21-32) Anion Gap 6 (6-14) Blood Urea Nitrogen 20 mg/dL (7-20) Creatinine 4.4 mg/dL (0.6-1.0) Estimated GFR (Cockcroft-Gault) 11.8 Glucose Level 66 mg/dL (70-99) Calcium Level 8.1 mg/dL (8.5-10.1) Laboratory Tests Test 01/21/19 11:15 01/21/19 13:26 01/21/19 16:56 01/21/19 20:32 Prothrombin Time 11.9 SEC (11.7-14.0) Prothromb Time International Ratio 0.9 (0.8-1.1) Activated Partial Thromboplast Time 38 SEC (24-38) Glucose (Fingerstick) 74 mg/dL (70-99) 62 mg/dL (70-99) 115 mg/dL (70-99) Test 01/22/19 04:45 01/22/19 07:12 01/22/19 07:36 White Blood Count 5.2 x10^3/uL (4.0-11.0) Red Blood Count 2.98 x10^6/uL (3.50-5.40) Hemoglobin 9.5 g/dL (12.0-15.5) Hematocrit 29.3 % (36.0-47.0) Mean Corpuscular Volume 99 fL (79-100) Mean Corpuscular Hemoglobin 32 pg (25-35) Mean Corpuscular Hemoglobin Concent 33 g/dL (31-37) Red Cell Distribution Width 14.2 % (11.5-14.5) Platelet Count 217 x10^3/uL (140-400) Neutrophils (%) (Auto) 74 % (31-73) Lymphocytes (%) (Auto) 10 % (24-48) Monocytes (%) (Auto) 13 % (0-9) Eosinophils (%) (Auto) 3 % (0-3) Basophils (%) (Auto) 1 % (0-3) Neutrophils # (Auto) 3.9 x10^3/uL (1.8-7.7) Lymphocytes # (Auto) 0.5 x10^3/uL (1.0-4.8) Monocytes # (Auto) 0.7 x10^3/uL (0.0-1.1) Eosinophils # (Auto) 0.2 x10^3/uL (0.0-0.7) Basophils # (Auto) 0.1 x10^3/uL (0.0-0.2) Sodium Level 143 mmol/L (136-145) Potassium Level 5.0 mmol/L (3.5-5.1) Chloride Level 104 mmol/L (98-107) Carbon Dioxide Level 33 mmol/L (21-32) Anion Gap 6 (6-14) Blood Urea Nitrogen 20 mg/dL (7-20) Creatinine 4.4 mg/dL (0.6-1.0) Estimated GFR (Cockcroft-Gault) 11.8 Glucose Level 66 mg/dL (70-99) Calcium Level 8.1 mg/dL (8.5-10.1) Glucose (Fingerstick) 54 mg/dL (70-99) 117 mg/dL (70-99) Medications Current Medications Fentanyl Citrate (Fentanyl 2ml Vial) 50 mcg 1X ONCE IV Last administered on 01/16/19at 05:35; Start 01/16/19 at 05:15; Stop 01/16/19 at 05:16; Status DC Ondansetron HCl (Zofran) 4 mg 1X ONCE IV Last administered on 01/16/19at 05:34; Start 01/16/19 at 05:15; Stop 01/16/19 at 05:16; Status DC Ondansetron HCl (Zofran) 4 mg PRN Q8HRS PRN IV NAUSEA/VOMITING; Start 01/16/19 at 05:15; Stop 01/17/19 at 05:14; Status DC Fentanyl Citrate (Fentanyl 2ml Vial) 50 mcg PRN Q1HR PRN IV PAIN; Start at 05:15; Stop 01/17/19 at 05:14; Status DC Acetaminophen (Tylenol) 650 mg PRN Q4HRS PRN PO FEVER; Start 01/16/19 at 05:15; Stop 01/17/19 at 05:14; Status DC Dextrose (Dextrose 50%-Water Syringe) 12.5 gm PRN Q15MIN PRN IV SEE COMMENTS Last administered on 01/22/19at 07:13; Start 01/16/19 at 07:45 Dextrose (Dextrose 50%-Water Syringe) 25 gm STK-MED ONCE IV ; Start 01/16/19 at 07:43; Stop 01/16/19 at 07:43; Status DC Sodium Chloride 1,000 ml @ 1,000 mls/hr Q1H PRN IV hypotension; Start 01/16/19 at 13:55; Stop 01/16/19 at 19:54; Status DC Acetaminophen (Tylenol) 500 mg 1X PRN PRN PO MILD PAIN / TEMP; Start 01/16/19 at 14:00; Stop 01/16/19 at 19:00; Status DC Diphenhydramine HCl (Benadryl) 25 mg 1X PRN PRN IV ITCHING; Start 01/16/19 at 14:00; Stop 01/16/19 at 19:00; Status DC Diphenhydramine HCl (Benadryl) 25 mg 1X PRN PRN IV ITCHING; Start 01/16/19 at 14:00; Stop 01/16/19 at 19:00; Status DC Labetalol HCl (Normodyne Iv Push) 10 mg PRN Q1HR PRN IVP SBP > 180; Start 01/16/19 at 14:00; Stop 01/17/19 at 13:59; Status DC Sodium Chloride 1,000 ml @ 400 mls/hr Q2H30M PRN IV PATENCY; Start 01/16/19 at 13:55; Stop 01/17/19 at 01:54; Status DC Info (PHARMACY MONITORING -- do not chart) 1 each PRN DAILY PRN MC SEE COMMENTS; Start 01/16/19 at 14:00 Lidocaine HCl (Xylocaine-Mpf 1% 2ml Vial) 2 ml STK-MED ONCE .ROUTE ; Start 01/16/19 at 14:03; Stop 01/16/19 at 14:03; Status DC Amiodarone HCl (Cordarone) 200 mg DAILY PO Last administered on 01/20/19at 08:07; Start 01/17/19 at 09:00 Aspirin (Children'S Aspirin) 81 mg DAILY PO Last administered on 01/20/19at 08:08; Start 01/17/19 at 09:00 Atorvastatin Calcium (Lipitor) 40 mg HS PO Last administered on 01/21/19at 21:18; Start 01/16/19 at 21:00 Acetaminophen/ Codeine Phosphate (Tylenol #3) 1 tab PRN Q6HRS PRN PO MILD TO MOD PAIN Last administered on 01/17/19at 09:21; Start 01/16/19 at 18:00 Albuterol Sulfate (Ventolin Neb Soln) 2.5 mg PRN Q6HRS PRN NEB SHORTNESS OF BREATH; Start 01/16/19 at 18:00 Apixaban (Eliquis) 5 mg BID PO Last administered on 01/19/19at 08:32; Start 01/16/19 at 21:00 Vitamin B Complex/ Vitamin C (Marina-Jayme) 1 tab DAILY PO Last administered on 01/20/19at 08:07; Start 01/17/19 at 09:00 Furosemide (Lasix) 40 mg DAILY PO Last administered on 01/20/19at 08:07; Start 01/17/19 at 09:00 Hydroxyzine HCl (Atarax) 50 mg MoWeFr@0900 PO ; Start 01/18/19 at 09:00 Metoprolol Succinate (Toprol Xl) 25 mg DAILY PO Last administered on 01/20/19 08:07; Start 01/17/19 at 09:00 Budesonide (Pulmicort) 0.5 mg RTBID NEB Last administered on 01/21/19 19:41; Start 01/16/19 at 20:00 Albuterol Sulfate (Ventolin Neb Soln) 2.5 mg RTQID NEB Last administered on 01/21/19 19:41; Start 01/16/19 at 20:00 Lidocaine HCl (Xylocaine-Mpf 1% 2ml Vial) 2 ml STK-MED ONCE .ROUTE ; Start 01/16/19 at 14:00; Stop 01/17/19 at 09:03; Status DC Acetaminophen/ Hydrocodone Bitart (Lortab 10/325) 1 tab PRN Q6HRS PRN PO SEVERE PAIN Last administered on 01/21/19 12:28; Start 01/17/19 at 10:30 Prednisone (Prednisone) 10 mg DAILY PO Last administered on 01/20/19 08:08; Start 01/17/19 at 11:00 Pantoprazole Sodium (Protonix) 40 mg DAILYAC PO Last administered on 01/22/19 07:16; Start 01/17/19 at 11:30 Lidocaine (Lidoderm) 1 patch DAILY TD Last administered on 01/20/19 08:06; Start 01/17/19 at 11:00 Miscellaneous (Lidoderm Patch Removal) 1 ea QHS MC Last administered on 01/20/19 20:44; Start 01/17/19 at 21:00 Cyclobenzaprine HCl (Flexeril) 10 mg Q6HRS PO Last administered on 01/18/19 17:42; Start 01/17/19 at 12:00 Polyethylene Glycol (miraLAX PACKET) 17 gm DAILY PO Last administered on 01/20/19 08:08; Start 01/17/19 at 12:00 Lidocaine HCl (Xylocaine-Mpf 1% 2ml Vial) 2 ml STK-MED ONCE .ROUTE ; Start 01/18/19 at 09:25; Stop 01/18/19 at 09:25; Status DC Heparin Sodium (Porcine) (Heparin Sodium) 2,000 unit 1X STAT IV Last administered on 01/18/19at 10:21; Start 01/18/19 at 10:02; Stop 01/18/19 at 10:11; Status DC Sodium Chloride 1,000 ml @ 1,000 mls/hr Q1H PRN IV hypotension; Start 01/18/19 at 10:02; Stop 01/18/19 at 16:01; Status DC Acetaminophen (Tylenol) 500 mg 1X PRN PRN PO MILD PAIN / TEMP; Start 01/18/19 at 10:15; Stop 01/19/19 at 10:14; Status DC Diphenhydramine HCl (Benadryl) 25 mg 1X PRN PRN IV ITCHING; Start 01/18/19 at 10:15; Stop 01/19/19 at 10:14; Status DC Diphenhydramine HCl (Benadryl) 25 mg 1X PRN PRN IV ITCHING; Start 01/18/19 at 10:15; Stop 01/19/19 at 10:14; Status DC Sodium Chloride 1,000 ml @ 400 mls/hr Q2H30M PRN IV PATENCY; Start 01/18/19 at 10:02; Stop 01/18/19 at 22:01; Status DC Info (PHARMACY MONITORING -- do not chart) 1 each PRN DAILY PRN MC SEE COMMENTS; Start 01/18/19 at 10:15; Status Cancel Lidocaine HCl (Xylocaine-Mpf 1% 2ml Vial) 0.5 ml 1X STAT ID Last administered on 01/18/19at 10:20; Start 01/18/19 at 10:08; Stop 01/18/19 at 10:13; Status DC Ondansetron HCl (Zofran) 4 mg PRN Q4HRS PRN IVP NAUSEA/VOMITING Last administered on 01/19/19at 20:00; Start 01/19/19 at 19:30 Sodium Chloride 1,000 ml @ 1,000 mls/hr Q1H PRN IV hypotension; Start 01/21/19 at 08:29; Stop 01/21/19 at 14:28; Status DC Acetaminophen (Tylenol) 500 mg 1X PRN PRN PO MILD PAIN / TEMP; Start 01/21/19 at 08:30; Stop 01/22/19 at 08:29 Diphenhydramine HCl (Benadryl) 25 mg 1X PRN PRN IV ITCHING; Start 01/21/19 at 08:30; Stop 01/22/19 at 08:29 Diphenhydramine HCl (Benadryl) 25 mg 1X PRN PRN IV ITCHING; Start 01/21/19 at 08:30; Stop 01/22/19 at 08:29 Sodium Chloride 1,000 ml @ 400 mls/hr Q2H30M PRN IV PATENCY; Start 01/21/19 at 08:29; Stop 01/21/19 at 20:28; Status DC Info (PHARMACY MONITORING -- do not chart) 1 each PRN DAILY PRN MC SEE COMMENTS; Start 01/21/19 at 08:30; Status Cancel Lidocaine HCl (Xylocaine-Mpf 1% 2ml Vial) 0.5 ml 1X STAT ID Last administered on 01/21/19at 09:32; Start 01/21/19 at 08:43; Stop 01/21/19 at 08:46; Status DC Heparin Sodium (Porcine) (Heparin Sodium) 2,000 unit 1X STAT IV ; Start 01/21/19 at 09:30; Stop 01/21/19 at 09:32; Status DC Darbepoetin Canelo (ARANESP for DIALYSIS PTS) 60 mcg WEEKLYHS SQ Last administered on 01/21/19at 21:18; Start 01/21/19 at 21:00 Lidocaine HCl (Buffered Lidocaine 1%) 3 ml STK-MED ONCE .ROUTE ; Start 01/21/19 at 11:46; Stop 01/21/19 at 11:47; Status DC Gadoterate Meglumine (Dotarem) 10 ml STK-MED ONCE .ROUTE ; Start 01/21/19 at 12:31; Stop 01/21/19 at 12:32; Status DC Iohexol (Omnipaque 240 Mg/ml) 50 ml STK-MED ONCE .ROUTE ; Start 01/21/19 at 14:03; Stop 01/21/19 at 14:04; Status DC Midazolam HCl (Versed) 2 mg STK-MED ONCE .ROUTE ; Start 01/21/19 at 15:06; Stop 01/21/19 at 15:07; Status DC Fentanyl Citrate (Fentanyl 2ml Vial) 100 mcg STK-MED ONCE .ROUTE ; Start 01/21/19 at 15:07; Stop 01/21/19 at 15:07; Status DC Cefazolin Sodium 100 ml @ As Directed STK-MED ONCE IV ; Start 01/21/19 at 15:27; Stop 01/21/19 at 15:27; Status DC Lidocaine HCl (Buffered Lidocaine 1%) 3 ml 1X ONCE IJ Last administered on 01/21/19at 15:30; Start 01/21/19 at 15:30; Stop 01/21/19 at 15:37; Status DC Midazolam HCl (Versed) 2 mg 1X ONCE IV Last administered on 01/21/19at 15:30; Start 01/21/19 at 15:30; Stop 01/21/19 at 15:37; Status DC Fentanyl Citrate (Fentanyl 2ml Vial) 100 mcg 1X ONCE IV Last administered on 01/21/19at 15:30; Start 01/21/19 at 15:30; Stop 01/21/19 at 15:37; Status DC Cefazolin Sodium 50 ml @ 100 mls/hr 1X ONCE IV Last administered on 01/21/19at 15:30; Start 01/21/19 at 15:30; Stop 01/21/19 at 15:59; Status DC Gadoterate Meglumine (Dotarem) 10 ml 1X ONCE IVP Last administered on 01/21/19at 15:30; Start 01/21/19 at 15:30; Stop 01/21/19 at 15:37; Status DC Cefazolin Sodium 50 ml @ 100 mls/hr 1X ONCE IV Last administered on 01/21/19at 16:56; Start 01/21/19 at 15:30; Stop 01/21/19 at 15:59; Status DC Active Scripts Active Tylenol With Codeine #3 Tablet (Acetaminophen/Codeine Phosphate) 1 Each Tablet 1 Tab PO PRN Q6HRS PRN Amiodarone Hcl 200 Mg Tablet 200 Mg PO DAILY 30 Days Eliquis (Apixaban) 5 Mg Tablet 5 Mg PO BID MDD ` Reported Metoprolol Succinate ( Xl ) (Metoprolol Succinate) 25 Mg Tab.er.24h 1 Tab PO DAILY Aspirin 81 Mg Tab.chew 1 Tab PO DAILY Lipitor (Atorvastatin Calcium) 40 Mg Tablet 40 Mg PO HS Furosemide 40 Mg Tablet 40 Mg PO DAILY Symbicort 160-4.5 Mcg Inhaler (Budesonide/Formoterol Fumarate) 10.2 Gm Hfa.aer.ad 2 Puff IH BID Proair Hfa Inhaler (Albuterol Sulfate) 8.5 Gm Hfa.aer.ad 1 Puff INH PRN Q6HRS PRN Marina-Jayme Tablet (Folic Acid/Vitamin B Comp W-C) 0.8 Mg Tablet 0.8 Mg PO DAILY Hydroxyzine Hcl 25 Mg Tablet 50 Mg PO QMWF Vitals/I & O Vital Sign - Last 24 Hours 01/21/19 01/21/19 01/21/19 01/21/19 12:28 13:31 13:38 14:48 Temp 98.6 98.2 98.6 98.2 Pulse 96 91 Resp 20 20 B/P (MAP) 187/71 (109) 165/70 (101) Pulse Ox 94 97 97 98 O2 Delivery Room Air Nasal Cannula Nasal Cannula Nasal Cannula O2 Flow Rate 3.0 3.0 3.0 01/21/19 01/21/19 01/21/19 01/21/19 15:30 16:01 16:15 16:15 Pulse 91 87 Resp 17 18 18 Pulse Ox 97 97 97 O2 Delivery Nasal Cannula Nasal Cannula Nasal Cannula O2 Flow Rate 3.0 3.0 3.0 01/21/19 01/21/19 01/21/19 01/21/19 16:30 16:45 17:00 17:30 Pulse 86 78 80 79 Resp 18 Pulse Ox 97 97 97 97 O2 Delivery Nasal Cannula Nasal Cannula Nasal Cannula Nasal Cannula O2 Flow Rate 3.0 3.0 3.0 3.0 01/21/19 01/21/19 01/21/19 01/21/19 18:00 19:00 19:15 19:41 Temp 98.2 98.2 Pulse 91 88 86 Resp 20 B/P (MAP) 153/55 (87) Pulse Ox 97 97 100 100 O2 Delivery Nasal Cannula Nasal Cannula Nasal Cannula Nasal Cannula O2 Flow Rate 3.0 3.0 3.0 3.0 01/21/19 01/21/19 01/22/19 20:00 22:43 03:05 Temp 97.9 98.4 97.9 98.4 Pulse 93 93 Resp 18 18 B/P (MAP) 148/56 (86) 124/46 (72) Pulse Ox 98 98 O2 Delivery Nasal Cannula Nasal Cannula Nasal Cannula O2 Flow Rate 3.0 3.0 3.0 Intake and Output 01/21/19 01/21/19 01/22/19 15:00 23:00 07:00 Intake Total 0 ml 240 ml 320 ml Balance 0 ml 240 ml 320 ml KERLINE LEON MD Jan 22, 2019 08:05
[2019-01-22] MEDS: ALBUTEROL SULFATE 2.5 MG/3 ML NEBU. NEB SCH ×4 (08:45→20:03)
[2019-01-22] MEDS: BUDESONIDE 0.5 MG/2 ML NEBU. NEB SCH ×2 (08:45→20:03)
--- NOTE | 2019-01-22 09:41 | PDOC ---
PROGRESS NOTES Subjective Subjective She admits back pain with movement. Objective Objective Vital Signs Date Time Temp Pulse Resp B/P (MAP) Pulse Ox O2 Delivery O2 Flow Rate FiO2 01/22/19 08:46 100 Nasal Cannula 2.0 01/22/19 07:00 97.5 9 22 133/67 (89) 97.5 Intake and Output 01/22/19 07:00 Intake Total 560 ml Balance 560 ml Intake Oral 560 ml # Voids 4 Physical Exam Physical Exam She is alert and she got up with abdominal binder on and walked at bedside without much pain. Assessment Assessment Problems Medical Problems: (1) Compression fracture of L1 lumbar vertebra Status: Acute (2) Compression fracture of L5 vertebra Status: Acute (3) End stage renal disease on dialysis Status: Acute (4) Symptomatic bradycardia Status: Acute Plan Plan of Correction when medically stable. Comment Review of Relevant I have reviewed the following items mykel (where applicable) has been applied. Labs Laboratory Tests Test 01/20/19 11:24 01/20/19 16:44 01/20/19 20:42 01/21/19 03:00 Glucose (Fingerstick) 113 mg/dL (70-99) 235 mg/dL (70-99) 218 mg/dL (70-99) White Blood Count 5.8 x10^3/uL (4.0-11.0) Red Blood Count 2.94 x10^6/uL (3.50-5.40) Hemoglobin 9.5 g/dL (12.0-15.5) Hematocrit 29.3 % (36.0-47.0) Mean Corpuscular Volume 100 fL (79-100) Mean Corpuscular Hemoglobin 32 pg (25-35) Mean Corpuscular Hemoglobin Concent 32 g/dL (31-37) Red Cell Distribution Width 14.4 % (11.5-14.5) Platelet Count 212 x10^3/uL (140-400) Neutrophils (%) (Auto) 76 % (31-73) Lymphocytes (%) (Auto) 10 % (24-48) Monocytes (%) (Auto) 12 % (0-9) Eosinophils (%) (Auto) 1 % (0-3) Basophils (%) (Auto) 1 % (0-3) Neutrophils # (Auto) 4.4 x10^3/uL (1.8-7.7) Lymphocytes # (Auto) 0.6 x10^3/uL (1.0-4.8) Monocytes # (Auto) 0.7 x10^3/uL (0.0-1.1) Eosinophils # (Auto) 0.1 x10^3/uL (0.0-0.7) Basophils # (Auto) 0.0 x10^3/uL (0.0-0.2) Sodium Level 139 mmol/L (136-145) Potassium Level 5.7 mmol/L (3.5-5.1) Chloride Level 99 mmol/L (98-107) Carbon Dioxide Level 30 mmol/L (21-32) Anion Gap 10 (6-14) Blood Urea Nitrogen 64 mg/dL (7-20) Creatinine 7.8 mg/dL (0.6-1.0) Estimated GFR (Cockcroft-Gault) 6.1 Glucose Level 138 mg/dL (70-99) Calcium Level 8.3 mg/dL (8.5-10.1) Test 01/21/19 07:22 01/21/19 11:15 01/21/19 13:26 01/21/19 16:56 Glucose (Fingerstick) 78 mg/dL (70-99) 74 mg/dL (70-99) 62 mg/dL (70-99) Prothrombin Time 11.9 SEC (11.7-14.0) Prothromb Time International Ratio 0.9 (0.8-1.1) Activated Partial Thromboplast Time 38 SEC (24-38) Test 01/21/19 20:32 01/22/19 04:45 01/22/19 07:12 01/22/19 07:36 Glucose (Fingerstick) 115 mg/dL (70-99) 54 mg/dL (70-99) 117 mg/dL (70-99) White Blood Count 5.2 x10^3/uL (4.0-11.0) Red Blood Count 2.98 x10^6/uL (3.50-5.40) Hemoglobin 9.5 g/dL (12.0-15.5) Hematocrit 29.3 % (36.0-47.0) Mean Corpuscular Volume 99 fL (79-100) Mean Corpuscular Hemoglobin 32 pg (25-35) Mean Corpuscular Hemoglobin Concent 33 g/dL (31-37) Red Cell Distribution Width 14.2 % (11.5-14.5) Platelet Count 217 x10^3/uL (140-400) Neutrophils (%) (Auto) 74 % (31-73) Lymphocytes (%) (Auto) 10 % (24-48) Monocytes (%) (Auto) 13 % (0-9) Eosinophils (%) (Auto) 3 % (0-3) Basophils (%) (Auto) 1 % (0-3) Neutrophils # (Auto) 3.9 x10^3/uL (1.8-7.7) Lymphocytes # (Auto) 0.5 x10^3/uL (1.0-4.8) Monocytes # (Auto) 0.7 x10^3/uL (0.0-1.1) Eosinophils # (Auto) 0.2 x10^3/uL (0.0-0.7) Basophils # (Auto) 0.1 x10^3/uL (0.0-0.2) Sodium Level 143 mmol/L (136-145) Potassium Level 5.0 mmol/L (3.5-5.1) Chloride Level 104 mmol/L (98-107) Carbon Dioxide Level 33 mmol/L (21-32) Anion Gap 6 (6-14) Blood Urea Nitrogen 20 mg/dL (7-20) Creatinine 4.4 mg/dL (0.6-1.0) Estimated GFR (Cockcroft-Gault) 11.8 Glucose Level 66 mg/dL (70-99) Calcium Level 8.1 mg/dL (8.5-10.1) Laboratory Tests Test 01/21/19 11:15 01/21/19 13:26 01/21/19 16:56 01/21/19 20:32 Prothrombin Time 11.9 SEC (11.7-14.0) Prothromb Time International Ratio 0.9 (0.8-1.1) Activated Partial Thromboplast Time 38 SEC (24-38) Glucose (Fingerstick) 74 mg/dL (70-99) 62 mg/dL (70-99) 115 mg/dL (70-99) Test 01/22/19 04:45 01/22/19 07:12 01/22/19 07:36 White Blood Count 5.2 x10^3/uL (4.0-11.0) Red Blood Count 2.98 x10^6/uL (3.50-5.40) Hemoglobin 9.5 g/dL (12.0-15.5) Hematocrit 29.3 % (36.0-47.0) Mean Corpuscular Volume 99 fL (79-100) Mean Corpuscular Hemoglobin 32 pg (25-35) Mean Corpuscular Hemoglobin Concent 33 g/dL (31-37) Red Cell Distribution Width 14.2 % (11.5-14.5) Platelet Count 217 x10^3/uL (140-400) Neutrophils (%) (Auto) 74 % (31-73) Lymphocytes (%) (Auto) 10 % (24-48) Monocytes (%) (Auto) 13 % (0-9) Eosinophils (%) (Auto) 3 % (0-3) Basophils (%) (Auto) 1 % (0-3) Neutrophils # (Auto) 3.9 x10^3/uL (1.8-7.7) Lymphocytes # (Auto) 0.5 x10^3/uL (1.0-4.8) Monocytes # (Auto) 0.7 x10^3/uL (0.0-1.1) Eosinophils # (Auto) 0.2 x10^3/uL (0.0-0.7) Basophils # (Auto) 0.1 x10^3/uL (0.0-0.2) Sodium Level 143 mmol/L (136-145) Potassium Level 5.0 mmol/L (3.5-5.1) Chloride Level 104 mmol/L (98-107) Carbon Dioxide Level 33 mmol/L (21-32) Anion Gap 6 (6-14) Blood Urea Nitrogen 20 mg/dL (7-20) Creatinine 4.4 mg/dL (0.6-1.0) Estimated GFR (Cockcroft-Gault) 11.8 Glucose Level 66 mg/dL (70-99) Calcium Level 8.1 mg/dL (8.5-10.1) Glucose (Fingerstick) 54 mg/dL (70-99) 117 mg/dL (70-99) Medications Current Medications Fentanyl Citrate (Fentanyl 2ml Vial) 50 mcg 1X ONCE IV Last administered on 01/16/19at 05:35; Start 01/16/19 at 05:15; Stop 01/16/19 at 05:16; Status DC Ondansetron HCl (Zofran) 4 mg 1X ONCE IV Last administered on 01/16/19at 05:34; Start 01/16/19 at 05:15; Stop 01/16/19 at 05:16; Status DC Ondansetron HCl (Zofran) 4 mg PRN Q8HRS PRN IV NAUSEA/VOMITING; Start 01/16/19 at 05:15; Stop 01/17/19 at 05:14; Status DC Fentanyl Citrate (Fentanyl 2ml Vial) 50 mcg PRN Q1HR PRN IV PAIN; Start 01/16/19 at 05:15; Stop 01/17/19 at 05:14; Status DC Acetaminophen (Tylenol) 650 mg PRN Q4HRS PRN PO FEVER; Start 01/16/19 at 05:15; Stop 01/17/19 at 05:14; Status DC Dextrose (Dextrose 50%-Water Syringe) 12.5 gm PRN Q15MIN PRN IV SEE COMMENTS Last administered on 01/22/19at 07:13; Start 01/16/19 at 07:45 Dextrose (Dextrose 50%-Water Syringe) 25 gm STK-MED ONCE IV ; Start 01/16/19 at 07:43; Stop 01/16/19 at 07:43; Status DC Sodium Chloride 1,000 ml @ 1,000 mls/hr Q1H PRN IV hypotension; Start 01/16/19 at 13:55; Stop 01/16/19 at 19:54; Status DC Acetaminophen (Tylenol) 500 mg 1X PRN PRN PO MILD PAIN / TEMP; Start 01/16/19 at 14:00; Stop 01/16/19 at 19:00; Status DC Diphenhydramine HCl (Benadryl) 25 mg 1X PRN PRN IV ITCHING; Start 01/16/19 at 14:00; Stop 01/16/19 at 19:00; Status DC Diphenhydramine HCl (Benadryl) 25 mg 1X PRN PRN IV ITCHING; Start 01/16/19 at 14:00; Stop 01/16/19 at 19:00; Status DC Labetalol HCl (Normodyne Iv Push) 10 mg PRN Q1HR PRN IVP SBP > 180; Start 01/16/19 at 14:00; Stop 01/17/19 at 13:59; Status DC Sodium Chloride 1,000 ml @ 400 mls/hr Q2H30M PRN IV PATENCY; Start 01/16/19 at 13:55; Stop 01/17/19 at 01:54; Status DC Info (PHARMACY MONITORING -- do not chart) 1 each PRN DAILY PRN MC SEE COMMENTS; Start 01/16/19 at 14:00 Lidocaine HCl (Xylocaine-Mpf 1% 2ml Vial) 2 ml STK-MED ONCE .ROUTE ; Start 01/16/19 at 14:03; Stop 01/16/19 at 14:03; Status DC Amiodarone HCl (Cordarone) 200 mg DAILY PO Last administered on 01/20/19at 08:07; Start 01/17/19 at 09:00 Aspirin (Children'S Aspirin) 81 mg DAILY PO Last administered on 01/20/19at 08:08; Start 01/17/19 at 09:00 Atorvastatin Calcium (Lipitor) 40 mg HS PO Last administered on 01/21/19at 21:18; Start 01/16/19 at 21:00 Acetaminophen/ Codeine Phosphate (Tylenol #3) 1 tab PRN Q6HRS PRN PO MILD TO MOD PAIN Last administered on 01/17/19at 09:21; Start 01/16/19 at 18:00 Albuterol Sulfate (Ventolin Neb Soln) 2.5 mg PRN Q6HRS PRN NEB SHORTNESS OF BREATH; Start 01/16/19 at 18:00 Apixaban (Eliquis) 5 mg BID PO Last administered on 01/19/19at 08:32; Start 01/16/19 at 21:00 Vitamin B Complex/ Vitamin C (Marina-Jayme) 1 tab DAILY PO Last administered on 01/20/19at 08:07; Start 01/17/19 at 09:00 Furosemide (Lasix) 40 mg DAILY PO Last administered on 01/20/19at 08:07; Start 01/17/19 at 09:00 Hydroxyzine HCl (Atarax) 50 mg MoWeFr@0900 PO ; Start 01/18/19 at 09:00 Metoprolol Succinate (Toprol Xl) 25 mg DAILY PO Last administered on 01/20/19 08:07; Start 01/17/19 at 09:00 Budesonide (Pulmicort) 0.5 mg RTBID NEB Last administered on 01/22/19 08:45; Start 01/16/19 at 20:00 Albuterol Sulfate (Ventolin Neb Soln) 2.5 mg RTQID NEB Last administered on 01/22/19 08:45; Start 01/16/19 at 20:00 Lidocaine HCl (Xylocaine-Mpf 1% 2ml Vial) 2 ml STK-MED ONCE .ROUTE ; Start 01/16/19 at 14:00; Stop 01/17/19 at 09:03; Status DC Acetaminophen/ Hydrocodone Bitart (Lortab 10/325) 1 tab PRN Q6HRS PRN PO SEVERE PAIN Last administered on 01/21/19 12:28; Start 01/17/19 at 10:30 Prednisone (Prednisone) 10 mg DAILY PO Last administered on 01/20/19 08:08; Start 01/17/19 at 11:00 Pantoprazole Sodium (Protonix) 40 mg DAILYAC PO Last administered on 01/22/19 07:16; Start 01/17/19 at 11:30 Lidocaine (Lidoderm) 1 patch DAILY TD Last administered on 01/20/19 08:06; Start 01/17/19 at 11:00 Miscellaneous (Lidoderm Patch Removal) 1 ea QHS MC Last administered on 01/20/19 20:44; Start 01/17/19 at 21:00 Cyclobenzaprine HCl (Flexeril) 10 mg Q6HRS PO Last administered on 01/18/19 17:42; Start 01/17/19 at 12:00 Polyethylene Glycol (miraLAX PACKET) 17 gm DAILY PO Last administered on 01/20/19 08:08; Start 01/17/19 at 12:00 Lidocaine HCl (Xylocaine-Mpf 1% 2ml Vial) 2 ml STK-MED ONCE .ROUTE ; Start 01/18/19 at 09:25; Stop 01/18/19 at 09:25; Status DC Heparin Sodium (Porcine) (Heparin Sodium) 2,000 unit 1X STAT IV Last administered on 01/18/19at 10:21; Start 01/18/19 at 10:02; Stop 01/18/19 at 10:11; Status DC Sodium Chloride 1,000 ml @ 1,000 mls/hr Q1H PRN IV hypotension; Start 01/18/19 at 10:02; Stop 01/18/19 at 16:01; Status DC Acetaminophen (Tylenol) 500 mg 1X PRN PRN PO MILD PAIN / TEMP; Start 01/18/19 at 10:15; Stop 01/19/19 at 10:14; Status DC Diphenhydramine HCl (Benadryl) 25 mg 1X PRN PRN IV ITCHING; Start 01/18/19 at 10:15; Stop 01/19/19 at 10:14; Status DC Diphenhydramine HCl (Benadryl) 25 mg 1X PRN PRN IV ITCHING; Start 01/18/19 at 10:15; Stop 01/19/19 at 10:14; Status DC Sodium Chloride 1,000 ml @ 400 mls/hr Q2H30M PRN IV PATENCY; Start 01/18/19 at 10:02; Stop 01/18/19 at 22:01; Status DC Info (PHARMACY MONITORING -- do not chart) 1 each PRN DAILY PRN MC SEE COMMENTS; Start 01/18/19 at 10:15; Status Cancel Lidocaine HCl (Xylocaine-Mpf 1% 2ml Vial) 0.5 ml 1X STAT ID Last administered on 01/18/19at 10:20; Start 01/18/19 at 10:08; Stop 01/18/19 at 10:13; Status DC Ondansetron HCl (Zofran) 4 mg PRN Q4HRS PRN IVP NAUSEA/VOMITING Last administered on 01/19/19at 20:00; Start 01/19/19 at 19:30 Sodium Chloride 1,000 ml @ 1,000 mls/hr Q1H PRN IV hypotension; Start 01/21/19 at 08:29; Stop 01/21/19 at 14:28; Status DC Acetaminophen (Tylenol) 500 mg 1X PRN PRN PO MILD PAIN / TEMP; Start 01/21/19 at 08:30; Stop 01/22/19 at 08:29; Status DC Diphenhydramine HCl (Benadryl) 25 mg 1X PRN PRN IV ITCHING; Start 01/21/19 at 08:30; Stop 01/22/19 at 08:29; Status DC Diphenhydramine HCl (Benadryl) 25 mg 1X PRN PRN IV ITCHING; Start 01/21/19 at 08:30; Stop 01/22/19 at 08:29; Status DC Sodium Chloride 1,000 ml @ 400 mls/hr Q2H30M PRN IV PATENCY; Start 01/21/19 at 08:29; Stop 01/21/19 at 20:28; Status DC Info (PHARMACY MONITORING -- do not chart) 1 each PRN DAILY PRN MC SEE COMMENTS; Start 01/21/19 at 08:30; Status Cancel Lidocaine HCl (Xylocaine-Mpf 1% 2ml Vial) 0.5 ml 1X STAT ID Last administered on 01/21/19at 09:32; Start 01/21/19 at 08:43; Stop 01/21/19 at 08:46; Status DC Heparin Sodium (Porcine) (Heparin Sodium) 2,000 unit 1X STAT IV ; Start 01/21/19 at 09:30; Stop 01/21/19 at 09:32; Status DC Darbepoetin Canelo (ARANESP for DIALYSIS PTS) 60 mcg WEEKLYHS SQ Last administered on 01/21/19at 21:18; Start 01/21/19 at 21:00 Lidocaine HCl (Buffered Lidocaine 1%) 3 ml STK-MED ONCE .ROUTE ; Start 01/21/19 at 11:46; Stop 01/21/19 at 11:47; Status DC Gadoterate Meglumine (Dotarem) 10 ml STK-MED ONCE .ROUTE ; Start 01/21/19 at 12:31; Stop 01/21/19 at 12:32; Status DC Iohexol (Omnipaque 240 Mg/ml) 50 ml STK-MED ONCE .ROUTE ; Start 01/21/19 at 14:03; Stop 01/21/19 at 14:04; Status DC Midazolam HCl (Versed) 2 mg STK-MED ONCE .ROUTE ; Start 01/21/19 at 15:06; Stop 01/21/19 at 15:07; Status DC Fentanyl Citrate (Fentanyl 2ml Vial) 100 mcg STK-MED ONCE .ROUTE ; Start 01/21/19 at 15:07; Stop 01/21/19 at 15:07; Status DC Cefazolin Sodium 100 ml @ As Directed STK-MED ONCE IV ; Start 01/21/19 at 15:27; Stop 01/21/19 at 15:27; Status DC Lidocaine HCl (Buffered Lidocaine 1%) 3 ml 1X ONCE IJ Last administered on 01/21/19at 15:30; Start 01/21/19 at 15:30; Stop 01/21/19 at 15:37; Status DC Midazolam HCl (Versed) 2 mg 1X ONCE IV Last administered on 01/21/19at 15:30; Start 01/21/19 at 15:30; Stop 01/21/19 at 15:37; Status DC Fentanyl Citrate (Fentanyl 2ml Vial) 100 mcg 1X ONCE IV Last administered on 01/21/19at 15:30; Start 01/21/19 at 15:30; Stop 01/21/19 at 15:37; Status DC Cefazolin Sodium 50 ml @ 100 mls/hr 1X ONCE IV Last administered on 1 at 15:30; Start 01/21/19 at 15:30; Stop 01/21/19 at 15:59; Status DC Gadoterate Meglumine (Dotarem) 10 ml 1X ONCE IVP Last administered on 01/21/19at 15:30; Start 01/21/19 at 15:30; Stop 01/21/19 at 15:37; Status DC Cefazolin Sodium 50 ml @ 100 mls/hr 1X ONCE IV Last administered on 01/21/19at 16:56; Start 01/21/19 at 15:30; Stop 01/21/19 at 15:59; Status DC Active Scripts Active Tylenol With Codeine #3 Tablet (Acetaminophen/Codeine Phosphate) 1 Each Tablet 1 Tab PO PRN Q6HRS PRN Amiodarone Hcl 200 Mg Tablet 200 Mg PO DAILY 30 Days Eliquis (Apixaban) 5 Mg Tablet 5 Mg PO BID MDD ` Reported Metoprolol Succinate ( Xl ) (Metoprolol Succinate) 25 Mg Tab.er.24h 1 Tab PO DAILY Aspirin 81 Mg Tab.chew 1 Tab PO DAILY Lipitor (Atorvastatin Calcium) 40 Mg Tablet 40 Mg PO HS Furosemide 40 Mg Tablet 40 Mg PO DAILY Symbicort 160-4.5 Mcg Inhaler (Budesonide/Formoterol Fumarate) 10.2 Gm Hfa.aer.ad 2 Puff IH BID Proair Hfa Inhaler (Albuterol Sulfate) 8.5 Gm Hfa.aer.ad 1 Puff INH PRN Q6HRS PRN Marina-Jayme Tablet (Folic Acid/Vitamin B Comp W-C) 0.8 Mg Tablet 0.8 Mg PO DAILY Hydroxyzine Hcl 25 Mg Tablet 50 Mg PO QMWF Vitals/I & O Vital Sign - Last 24 Hours 01/21/19 01/21/19 01/21/19 01/21/19 12:28 13:31 13:38 14:48 Temp 98.6 98.2 98.6 98.2 Pulse 96 91 Resp 20 20 B/P (MAP) 187/71 (109) 165/70 (101) Pulse Ox 94 97 97 98 O2 Delivery Room Air Nasal Cannula Nasal Cannula Nasal Cannula O2 Flow Rate 3.0 3.0 3.0 01/21/19 01/21/19 01/21/19 01/21/19 15:30 16:01 16:15 16:15 Pulse 91 87 Resp 17 18 18 Pulse Ox 97 97 97 O2 Delivery Nasal Cannula Nasal Cannula Nasal Cannula O2 Flow Rate 3.0 3.0 3.0 01/21/19 01/21/19 01/21/19 01/21/19 16:30 16:45 17:00 17:30 Pulse 86 78 80 79 Resp 18 Pulse Ox 97 97 97 97 O2 Delivery Nasal Cannula Nasal Cannula Nasal Cannula Nasal Cannula O2 Flow Rate 3.0 3.0 3.0 3.0 01/21/19 01/21/19 01/21/19 01/21/19 18:00 19:00 19:15 19:41 Temp 98.2 98.2 Pulse 91 88 86 Resp 20 B/P (MAP) 153/55 (87) Pulse Ox 97 97 100 100 O2 Delivery Nasal Cannula Nasal Cannula Nasal Cannula Nasal Cannula O2 Flow Rate 3.0 3.0 3.0 3.0 01/21/19 01/21/19 01/22/19 01/22/19 20:00 22:43 03:05 07:00 Temp 97.9 98.4 97.5 97.9 98.4 97.5 Pulse 93 93 9 Resp 18 18 22 B/P (MAP) 148/56 (86) 124/46 (72) 133/67 (89) Pulse Ox 98 98 80 O2 Delivery Nasal Cannula Nasal Cannula Nasal Cannula O2 Flow Rate 3.0 3.0 3.0 2.0 01/22/19 08:46 Pulse Ox 100 O2 Delivery Nasal Cannula O2 Flow Rate 2.0 Intake and Output 01/21/19 01/21/19 01/22/19 15:00 23:00 07:00 Intake Total 0 ml 240 ml 320 ml Balance 0 ml 240 ml 320 ml DEVIN JOHNSON MD Jan 22, 2019 09:41
[2019-01-22] MEDS: AMIODARONE HCL 200 MG TABLET. PO SCH (10:00)
[2019-01-22] MEDS: POLYETHYLENE GLYCOL 3350 17 GM PACKET. PO SCH (10:00)
[2019-01-22] MEDS: LIDOCAINE (700MG/PATCH) PATCH. TD SCH (10:00)
[2019-01-22] MEDS: FOLIC/VIT B COMP W-C (RENAL) TABLET. PO SCH (10:01)
[2019-01-22] MEDS: METOPROLOL SUCC 24HR ER 25 MG TAB.ER.24H. PO SCH (10:01)
[2019-01-22] MEDS: APIXABAN 5 MG TABLET. PO SCH ×2 (10:01→20:46)
[2019-01-22] MEDS: FUROSEMIDE 40 MG TABLET. PO SCH (10:01)
[2019-01-22] MEDS: ASPIRIN CHEWABLE 81 MG TABLET. PO SCH (10:01)
[2019-01-22] MEDS: HYDROcodone/APAP 10/325 1 TAB TABLET PO PRN (10:01)
[2019-01-22] MEDS: predniSONE 10 MG TABLET PO SCH (10:01)
[2019-01-22 10:32] VITALS: BP 139/73
--- NOTE | 2019-01-22 11:10 | PDOC ---
SUBJECTIVE ROS Stable, OBJECTIVE Vital Signs Vital Signs Date Time Temp Pulse Resp B/P (MAP) Pulse Ox O2 Delivery O2 Flow Rate FiO2 01/22/19 10:32 97.7 87 20 139/73 (95) 89 2.0 97.7 01/22/19 10:01 Nasal Cannula I & 0 Intake and Output 01/22/19 07:00 Intake Total 560 ml Balance 560 ml Intake Oral 560 ml # Voids 4 PHYSICAL EXAM Physical Exam General: No acute distress HEENT: Mucous membr. moist/pink neck Supple Lungs: CTA Heart:Bradycardic Abdomen: Soft, No tenderness, Extremities: No edema, LUE AV fistula with bruit Skin: No rashes Neuro: Grossly Normal Psych/Mental Status: Mental status NL, Mood NL No Guerrier DIAGNOSIS/ASSESSMENT Assessment & Plan ESRD- On HD MWF under Dr. Ramon's care No indication today Anemia- Noted drop in Hgb- defer to Primary GI bleed in june 2018, post EGD started PARISA DM - primary managing PENNY- cant tolerate CPAP Low back pain with traumatic mechanical fall: resulting to L1 compression fracture Known asymptomatic SB: Lower HR noted in the past associated with hyperkalemic episode. Otherwise lifevest check unrevelaing of any significant bradyarrhythmias. NICM/chronic systolic CHF: compensated EF 35% NYHA 2 PAFIB: SR/SB, lowest 50s. Hypertension; antihypertensives CAD s/p PCI/stent to the RCA: Cath earlier this year with non-obstructive CAD, clnically stable COMMENT/RELEVANT DATA Meds Current Medications Medications (Trade) Dose Ordered Sig/Eric Start Time Stop Time Status Last Admin Dose Admin Acetaminophen (Tylenol) 500 mg 1X PRN PRN 01/21/19 08:30 01/22/19 08:29 DC Acetaminophen/ Codeine Phosphate (Tylenol #3) 1 tab PRN Q6HRS PRN 01/16/19 18:00 01/17/19 09:21 1 TAB Acetaminophen/ Hydrocodone Bitart (Lortab 10/) 1 tab PRN Q6HRS PRN 01/17/19 10:30 01/22/19 10:01 1 TAB Albuterol Sulfate (Ventolin Neb Soln) 2.5 mg RTQID 01/16/19 20:00 01/22/19 08:45 2.5 MG Amiodarone HCl (Cordarone) 200 mg DAILY 01/17/19 09:00 01/22/19 10:00 200 MG Apixaban (Eliquis) 5 mg BID 01/16/19 21:00 01/22/19 10:01 5 MG Aspirin (Children'S Aspirin) 81 mg DAILY 01/17/19 09:00 01/22/19 10:01 81 MG Atorvastatin Calcium (Lipitor) 40 mg HS 01/16/19 21:00 01/21/19 21:18 40 MG Budesonide (Pulmicort) 0.5 mg RTBID 01/16/19 20:00 01/22/19 08:45 0.5 MG Cefazolin Sodium 50 ml @ 100 mls/hr 1X ONCE 01/21/19 15:30 01/21/19 15:59 DC 01/21/19 16:56 100 MLS/HR Cyclobenzaprine HCl (Flexeril) 10 mg Q6HRS 01/17/19 12:00 01/18/19 17:42 10 MG Darbepoetin Canelo (ARANESP for DIALYSIS PTS) 60 mcg WEEKLYHS 01/21/19 21:00 01/21/19 21:18 60 MCG Dextrose (Dextrose 50%-Water Syringe) 25 gm STK-MED ONCE 01/16/19 07:43 01/16/19 07:43 DC Diphenhydramine HCl (Benadryl) 25 mg 1X PRN PRN 01/21/19 08:30 01/22/19 08:29 DC Fentanyl Citrate (Fentanyl 2ml Vial) 100 mcg 1X ONCE 01/21/19 15:30 01/21/19 15:37 DC 01/21/19 15:30 50 MCG Furosemide (Lasix) 40 mg DAILY 01/17/19 09:00 01/22/19 10:01 40 MG Gadoterate Meglumine (Dotarem) 10 ml 1X ONCE 01/21/19 15:30 01/21/19 15:37 DC 01/21/19 15:30 10 ML Heparin Sodium (Porcine) (Heparin Sodium) 2,000 unit 1X STAT 01/21/19 09:30 01/21/19 09:32 DC Hydroxyzine HCl (Atarax) 50 mg MoWeFr@0900 01/18/19 09:00 Info (PHARMACY MONITORING -- do not chart) 1 each PRN DAILY PRN 01/21/19 08:30 Cancel Iohexol (Omnipaque 240 Mg/ml) 50 ml STK-MED ONCE 01/21/19 14:03 01/21/19 14:04 DC Labetalol HCl (Normodyne Iv Push) 10 mg PRN Q1HR PRN 01/16/19 14:00 01/17/19 13:59 DC Lidocaine (Lidoderm) 1 patch DAILY 01/17/19 11:00 01/22/19 10:00 1 PATCH Lidocaine HCl (Buffered Lidocaine 1%) 3 ml 1X ONCE 01/21/19 15:30 01/21/19 15:37 DC 01/21/19 15:30 4 ML Lidocaine HCl (Xylocaine-Mpf 1% 2ml Vial) 0.5 ml 1X STAT 01/21/19 08:43 01/21/19 08:46 DC 01/21/19 09:32 0.5 ML Metoprolol Succinate (Toprol Xl) 25 mg DAILY 01/17/19 09:00 01/22/19 10:01 25 MG Midazolam HCl (Versed) 2 mg 1X ONCE 01/21/19 15:30 01/21/19 15:37 DC 01/21/19 15:30 2 MG Miscellaneous (Lidoderm Patch Removal) 1 ea QHS 01/17/19 21:00 01/20/19 20:44 1 EA Ondansetron HCl (Zofran) 4 mg PRN Q4HRS PRN 01/19/19 19:30 01/19/19 20:00 4 MG Pantoprazole Sodium (Protonix) 40 mg DAILYAC 01/17/19 11:30 01/22/19 07:16 40 MG Polyethylene Glycol (miraLAX PACKET) 17 gm DAILY 01/17/19 12:00 01/22/19 10:00 17 GM Prednisone (Prednisone) 10 mg DAILY 01/17/19 11:00 01/22/19 10:01 10 MG Sodium Chloride 1,000 ml @ 400 mls/hr Q2H30M PRN 01/21/19 08:29 01/21/19 20:28 DC Vitamin B Complex/ Vitamin C (Marina-Jayme) 1 tab DAILY 01/17/19 09:00 01/22/19 10:01 1 TAB Lab Laboratory Tests Test 01/21/19 11:15 01/21/19 13:26 01/21/19 16:56 01/21/19 20:32 Prothrombin Time 11.9 SEC (11.7-14.0) Prothromb Time International Ratio 0.9 (0.8-1.1) Activated Partial Thromboplast Time 38 SEC (24-38) Glucose (Fingerstick) 74 mg/dL (70-99) 62 mg/dL (70-99) 115 mg/dL (70-99) Test 01/22/19 04:45 01/22/19 07:12 01/22/19 07:36 White Blood Count 5.2 x10^3/uL (4.0-11.0) Red Blood Count 2.98 x10^6/uL (3.50-5.40) Hemoglobin 9.5 g/dL (12.0-15.5) Hematocrit 29.3 % (36.0-47.0) Mean Corpuscular Volume 99 fL (79-100) Mean Corpuscular Hemoglobin 32 pg (25-35) Mean Corpuscular Hemoglobin Concent 33 g/dL (31-37) Red Cell Distribution Width 14.2 % (11.5-14.5) Platelet Count 217 x10^3/uL (140-400) Neutrophils (%) (Auto) 74 % (31-73) Lymphocytes (%) (Auto) 10 % (24-48) Monocytes (%) (Auto) 13 % (0-9) Eosinophils (%) (Auto) 3 % (0-3) Basophils (%) (Auto) 1 % (0-3) Neutrophils # (Auto) 3.9 x10^3/uL (1.8-7.7) Lymphocytes # (Auto) 0.5 x10^3/uL (1.0-4.8) Monocytes # (Auto) 0.7 x10^3/uL (0.0-1.1) Eosinophils # (Auto) 0.2 x10^3/uL (0.0-0.7) Basophils # (Auto) 0.1 x10^3/uL (0.0-0.2) Sodium Level 143 mmol/L (136-145) Potassium Level 5.0 mmol/L (3.5-5.1) Chloride Level 104 mmol/L (98-107) Carbon Dioxide Level 33 mmol/L (21-32) Anion Gap 6 (6-14) Blood Urea Nitrogen 20 mg/dL (7-20) Creatinine 4.4 mg/dL (0.6-1.0) Estimated GFR (Cockcroft-Gault) 11.8 Glucose Level 66 mg/dL (70-99) Calcium Level 8.1 mg/dL (8.5-10.1) Glucose (Fingerstick) 54 mg/dL (70-99) 117 mg/dL (70-99) Results All relevant outside records, renal labs, imaging studies, telemetry/EKG's were reviewed. DESIREE MELARA MD Jan 22, 2019 11:10
--- NOTE | 2019-01-22 14:13 | SNU/HH DC ---
DISCHARGE ORDERS DISCHARGE INFORMATION: DISCHARGE DATE: Jan 22, 2019 FINAL DIAGNOSIS Problems Medical Problems: (1) Compression fracture of L1 lumbar vertebra Status: Acute (2) Compression fracture of L5 vertebra Status: Acute (3) End stage renal disease on dialysis Status: Acute (4) Symptomatic bradycardia Status: Acute CONDITION ON DISCHARGE: Stable CODE STATUS: Code Status: Full JAIL: SNF STAY <30 DAYS: Yes POST DISCHARGE ORDERS: ACTIVITY ORDERS: No restrictions WEIGHT BEARING STATUS: No restrictions BATHING ORDERS: Shower-keep dressing dry DIET AFTER DISCHARGE: Renal WOUND/INCISION CARE: Do not change dressing, Reinforce dressing PRN CHECKS AFTER DISCHARGE: CHECKS AFTER DISCHARGE: Check blood press - daily, Check blood sugar, ac/hs, Check your Temp as needed, Weigh Yourself Daily COMMENTS: midline back TREATMENT/EQUIPMENT ORDERS: ADAPTIVE EQUIPMENT NEEDED: None RESPIRATORY EQUIPMENT NEEDED: Oxygen Physical Therapy For: Evalulation/Treatment Occupational Therapy For: Evaluation/Treatment Speech Language Pathology For: Evaluation/Treatment DISCHARGE MEDICATIONS: Home Meds Active Scripts Acetaminophen With Codeine (TYLENOL WITH CODEINE #3 TABLET) 1 Each Tablet, 1 TAB PO PRN Q6HRS PRN for PAIN, #15 TAB Prov:BONIFACIO PERES MD 01/14/19 Amiodarone Hcl (AMIODARONE HCL) 200 Mg Tablet, 200 MG PO DAILY for heart for 30 Days, #30 TAB Prov:SUDHEER ROBLES MD 12/05/18 Apixaban (ELIQUIS) 5 Mg Tablet, 5 MG PO BID for afib MDD `, #60 TAB Prov:CARMELA TAYLOR MD 03/24/18 Reported Medications Metoprolol Succinate (METOPROLOL SUCCINATE ( XL )) 25 Mg Tab.er.24h, 1 TAB PO DAILY for HTN, #30 TAB 5 Refills 01/16/19 Aspirin (ASPIRIN) 81 Mg Tab.chew, 1 TAB PO DAILY for afib, #30 TAB 3 Refills 11/05/18 Atorvastatin Calcium (LIPITOR) 40 Mg Tablet, 40 MG PO HS for FOR CHOLESTEROL, #30 TAB 0 Refills 06/08/18 Furosemide (FUROSEMIDE) 40 Mg Tablet, 40 MG PO DAILY for chf, TAB 06/08/18 Budesonide/Formoterol Fumarate (SYMBICORT 160-4.5 MCG INHALER) 10.2 Gm Hfa.aer.ad, 2 PUFF IH BID for copd, #10.6 GM 3 Refills 06/08/18 Albuterol Sulfate (PROAIR HFA INHALER) 8.5 Gm Hfa.aer.ad, 1 PUFF INH PRN Q6HRS PRN for SHORTNESS OF BREATH, INHALER 0 Refills 06/08/18 Folic Acid/Vitamin B Comp W-C (RAYNA-STEVE TABLET) 0.8 Mg Tablet, 0.8 MG PO DAILY for dialysis 03/21/18 Hydroxyzine Hcl (HYDROXYZINE HCL) 25 Mg Tablet, 50 MG PO QMWF for anxiety during dialysis, #30 TAB 03/21/18 KERLINE LEON MD Jan 22, 2019 14:13
[2019-01-22 14:31] VITALS: BP 152/76
[2019-01-22 19:05] VITALS: BP 158/72
[2019-01-22] MEDS: ATORVASTATIN CALCIUM 40 MG TABLET. PO SCH (20:46)
[2019-01-22] MEDS: PATCH REMOVAL. MC SCH (21:00)
[2019-01-22 22:35] VITALS: BP 149/59
[2019-01-23 03:29] VITALS: BP 144/56
[2019-01-23 04:43] LABS: BASO % 1 % (0-3); EOS # 0.2 x10^3/uL (0.0-0.7); EOS % 4 % (0-3); HEMATOCRIT 28.3 % (36.0-47.0); HEMOGLOBIN 9.1 g/dL (12.0-15.5); LYMPH # 0.7 x10^3/uL (1.0-4.8); LYMPH % 13 % (24-48); MEAN CORPUSCULAR HEMOGLOBIN 32 pg (25-35); MEAN CORPUSCULAR HGB CONC 32 g/dL (31-37); MEAN CORPUSCULAR VOLUME 99 fL (79-100); MONO # 0.7 x10^3/uL (0.0-1.1); MONO % 13 % (0-9); NEUT # 3.7 x10^3/uL (1.8-7.7); NEUT % 69 % (31-73); PLATELET COUNT 235 x10^3/uL (140-400); RED BLOOD COUNT 2.85 x10^6/uL (3.50-5.40); RED CELL DISTRIBUTION WIDTH 14.3 % (11.5-14.5); WHITE BLOOD COUNT 5.4 x10^3/uL (4.0-11.0)
[2019-01-23 04:56] LABS: CALCIUM 8.2 mg/dL (8.5-10.1); CREATININE 6.6 mg/dL (0.6-1.0); GFR 7.4; POTASSIUM 5.5 mmol/L (3.5-5.1)
[2019-01-23] MEDS: CYCLOBENZAPRINE 10 MG TABLET. PO SCH ×3 (06:00→12:00)
[2019-01-23] MEDS: PANTOPRAZOLE 40 MG TABLET.DR. PO SCH (06:13)
[2019-01-23] MEDS: HYDROcodone/APAP 10/325 1 TAB TABLET PO PRN (06:15)
[2019-01-23 07:00] VITALS: BP 158/64
[2019-01-23] MEDS: ALBUTEROL SULFATE 2.5 MG/3 ML NEBU. NEB SCH ×2 (07:50→11:44)
[2019-01-23] MEDS: BUDESONIDE 0.5 MG/2 ML NEBU. NEB SCH (07:50)
[2019-01-23] MEDS ORDERED: IV NORMAL SALINE 1000ML BAG 1,000 ML IV PRN (08:00)
[2019-01-23] MEDS ORDERED: LIDOCAINE 1% PF 2 ML VIAL. ONE ×2 (08:18→09:00)
[2019-01-23] MEDS: hydrOXYzine 25 MG TABLET PO SCH (09:00)
--- NOTE | 2019-01-23 09:07 | PDOC ---
PROGRESS NOTES Subjective Subjective She admits continued back pain with mobility but abdominal binder is helping. Objective Objective Vital Signs Date Time Temp Pulse Resp B/P (MAP) Pulse Ox O2 Delivery O2 Flow Rate FiO2 01/23/19 07:50 98 Nasal Cannula 3.0 01/23/19 07:00 98.5 86 20 158/64 (95) 98.5 Intake and Output 01/23/19 07:00 Intake Total 1298 ml Output Total 0 ml Balance 1298 ml Intake Oral 1298 ml Output Urine Total 0 ml Stool Total 0 ml Physical Exam Physical Exam She is independent with bed mobility,transfers and walking with roller walker on level surface but needs assistance with donning abdominal binder. She is alert now receiving hemodialysis. Assessment Assessment Problems Medical Problems: (1) Compression fracture of L1 lumbar vertebra Status: Acute (2) Compression fracture of L5 vertebra Status: Acute (3) End stage renal disease on dialysis Status: Acute (4) Symptomatic bradycardia Status: Acute Plan Plan of [facility] with out patient follow up when medically stable. Comment Review of Relevant I have reviewed the following items mykel (where applicable) has been applied. Labs Laboratory Tests Test 01/21/19 11:15 01/21/19 13:26 01/21/19 16:56 01/21/19 20:32 Prothrombin Time 11.9 SEC (11.7-14.0) Prothromb Time International Ratio 0.9 (0.8-1.1) Activated Partial Thromboplast Time 38 SEC (24-38) Glucose (Fingerstick) 74 mg/dL (70-99) 62 mg/dL (70-99) 115 mg/dL (70-99) Test 01/22/19 04:45 01/22/19 07:12 01/22/19 07:36 01/22/19 12:13 White Blood Count 5.2 x10^3/uL (4.0-11.0) Red Blood Count 2.98 x10^6/uL (3.50-5.40) Hemoglobin 9.5 g/dL (12.0-15.5) Hematocrit 29.3 % (36.0-47.0) Mean Corpuscular Volume 99 fL (79-100) Mean Corpuscular Hemoglobin 32 pg (25-35) Mean Corpuscular Hemoglobin Concent 33 g/dL (31-37) Red Cell Distribution Width 14.2 % (11.5-14.5) Platelet Count 217 x10^3/uL (140-400) Neutrophils (%) (Auto) 74 % (31-73) Lymphocytes (%) (Auto) 10 % (24-48) Monocytes (%) (Auto) 13 % (0-9) Eosinophils (%) (Auto) 3 % (0-3) Basophils (%) (Auto) 1 % (0-3) Neutrophils # (Auto) 3.9 x10^3/uL (1.8-7.7) Lymphocytes # (Auto) 0.5 x10^3/uL (1.0-4.8) Monocytes # (Auto) 0.7 x10^3/uL (0.0-1.1) Eosinophils # (Auto) 0.2 x10^3/uL (0.0-0.7) Basophils # (Auto) 0.1 x10^3/uL (0.0-0.2) Sodium Level 143 mmol/L (136-145) Potassium Level 5.0 mmol/L (3.5-5.1) Chloride Level 104 mmol/L (98-107) Carbon Dioxide Level 33 mmol/L (21-32) Anion Gap 6 (6-14) Blood Urea Nitrogen 20 mg/dL (7-20) Creatinine 4.4 mg/dL (0.6-1.0) Estimated GFR (Cockcroft-Gault) 11.8 Glucose Level 66 mg/dL (70-99) Calcium Level 8.1 mg/dL (8.5-10.1) Glucose (Fingerstick) 54 mg/dL (70-99) 117 mg/dL (70-99) 109 mg/dL (70-99) Test 01/22/19 17:26 01/22/19 20:36 01/23/19 03:55 01/23/19 07:03 Glucose (Fingerstick) 107 mg/dL (70-99) 144 mg/dL (70-99) 105 mg/dL (70-99) White Blood Count 5.4 x10^3/uL (4.0-11.0) Red Blood Count 2.85 x10^6/uL (3.50-5.40) Hemoglobin 9.1 g/dL (12.0-15.5) Hematocrit 28.3 % (36.0-47.0) Mean Corpuscular Volume 99 fL (79-100) Mean Corpuscular Hemoglobin 32 pg (25-35) Mean Corpuscular Hemoglobin Concent 32 g/dL (31-37) Red Cell Distribution Width 14.3 % (11.5-14.5) Platelet Count 235 x10^3/uL (140-400) Neutrophils (%) (Auto) 69 % (31-73) Lymphocytes (%) (Auto) 13 % (24-48) Monocytes (%) (Auto) 13 % (0-9) Eosinophils (%) (Auto) 4 % (0-3) Basophils (%) (Auto) 1 % (0-3) Neutrophils # (Auto) 3.7 x10^3/uL (1.8-7.7) Lymphocytes # (Auto) 0.7 x10^3/uL (1.0-4.8) Monocytes # (Auto) 0.7 x10^3/uL (0.0-1.1) Eosinophils # (Auto) 0.2 x10^3/uL (0.0-0.7) Basophils # (Auto) 0.0 x10^3/uL (0.0-0.2) Sodium Level 144 mmol/L (136-145) Potassium Level 5.5 mmol/L (3.5-5.1) Chloride Level 104 mmol/L (98-107) Carbon Dioxide Level 32 mmol/L (21-32) Anion Gap 8 (6-14) Blood Urea Nitrogen 39 mg/dL (7-20) Creatinine 6.6 mg/dL (0.6-1.0) Estimated GFR (Cockcroft-Gault) 7.4 Glucose Level 180 mg/dL (70-99) Calcium Level 8.2 mg/dL (8.5-10.1) Laboratory Tests Test 01/22/19 12:13 01/22/19 17:26 01/22/19 20:36 01/23/19 03:55 Glucose (Fingerstick) 109 mg/dL (70-99) 107 mg/dL (70-99) 144 mg/dL (70-99) White Blood Count 5.4 x10^3/uL (4.0-11.0) Red Blood Count 2.85 x10^6/uL (3.50-5.40) Hemoglobin 9.1 g/dL (12.0-15.5) Hematocrit 28.3 % (36.0-47.0) Mean Corpuscular Volume 99 fL (79-100) Mean Corpuscular Hemoglobin 32 pg (25-35) Mean Corpuscular Hemoglobin Concent 32 g/dL (31-37) Red Cell Distribution Width 14.3 % (11.5-14.5) Platelet Count 235 x10^3/uL (140-400) Neutrophils (%) (Auto) 69 % (31-73) Lymphocytes (%) (Auto) 13 % (24-48) Monocytes (%) (Auto) 13 % (0-9) Eosinophils (%) (Auto) 4 % (0-3) Basophils (%) (Auto) 1 % (0-3) Neutrophils # (Auto) 3.7 x10^3/uL (1.8-7.7) Lymphocytes # (Auto) 0.7 x10^3/uL (1.0-4.8) Monocytes # (Auto) 0.7 x10^3/uL (0.0-1.1) Eosinophils # (Auto) 0.2 x10^3/uL (0.0-0.7) Basophils # (Auto) 0.0 x10^3/uL (0.0-0.2) Sodium Level 144 mmol/L (136-145) Potassium Level 5.5 mmol/L (3.5-5.1) Chloride Level 104 mmol/L (98-107) Carbon Dioxide Level 32 mmol/L (21-32) Anion Gap 8 (6-14) Blood Urea Nitrogen 39 mg/dL (7-20) Creatinine 6.6 mg/dL (0.6-1.0) Estimated GFR (Cockcroft-Gault) 7.4 Glucose Level 180 mg/dL (70-99) Calcium Level 8.2 mg/dL (8.5-10.1) Test 01/23/19 07:03 Glucose (Fingerstick) 105 mg/dL (70-99) Medications Current Medications Fentanyl Citrate (Fentanyl 2ml Vial) 50 mcg 1X ONCE IV Last administered on 01/16/19at 05:35; Start 01/16/19 at 05:15; Stop 01/16/19 at 05:16; Status DC Ondansetron HCl (Zofran) 4 mg 1X ONCE IV Last administered on 01/16/19at 05:34; Start 01/16/19 at 05:15; Stop 01/16/19 at 05:16; Status DC Ondansetron HCl (Zofran) 4 mg PRN Q8HRS PRN IV NAUSEA/VOMITING; Start 01/16/19 at 05:15; Stop 01/17/19 at 05:14; Status DC Fentanyl Citrate (Fentanyl 2ml Vial) 50 mcg PRN Q1HR PRN IV PAIN; Start 01/16/19 at 05:15; Stop 01/17/19 at 05:14; Status DC Acetaminophen (Tylenol) 650 mg PRN Q4HRS PRN PO FEVER; Start 01/16/19 at 05:15; Stop 01/17/19 at 05:14; Status DC Dextrose (Dextrose 50%-Water Syringe) 12.5 gm PRN Q15MIN PRN IV SEE COMMENTS Last administered on 01/22/19at 07:13; Start 01/16/19 at 07:45 Dextrose (Dextrose 50%-Water Syringe) 25 gm STK-MED ONCE IV ; Start 01/16/19 at 07:43; Stop 01/16/19 at 07:43; Status DC Sodium Chloride 1,000 ml @ 1,000 mls/hr Q1H PRN IV hypotension; Start 01/16/19 at 13:55; Stop 01/16/19 at 19:54; Status DC Acetaminophen (Tylenol) 500 mg 1X PRN PRN PO MILD PAIN / TEMP; Start 01/16/19 at 14:00; Stop 01/16/19 at 19:00; Status DC Diphenhydramine HCl (Benadryl) 25 mg 1X PRN PRN IV ITCHING; Start 01/16/19 at 14:00; Stop 01/16/19 at 19:00; Status DC Diphenhydramine HCl (Benadryl) 25 mg 1X PRN PRN IV ITCHING; Start 01/16/19 at 14:00; Stop 01/16/19 at 19:00; Status DC Labetalol HCl (Normodyne Iv Push) 10 mg PRN Q1HR PRN IVP SBP > 180; Start 01/16/19 at 14:00; Stop 01/17/19 at 13:59; Status DC Sodium Chloride 1,000 ml @ 400 mls/hr Q2H30M PRN IV PATENCY; Start 01/16/19 at 13:55; Stop 01/17/19 at 01:54; Status DC Info (PHARMACY MONITORING -- do not chart) 1 each PRN DAILY PRN MC SEE COMMENTS; Start 01/16/19 at 14:00 Lidocaine HCl (Xylocaine-Mpf 1% 2ml Vial) 2 ml STK-MED ONCE .ROUTE ; Start 01/16/19 at 14:03; Stop 01/16/19 at 14:03; Status DC Amiodarone HCl (Cordarone) 200 mg DAILY PO Last administered on 01/22/19at 10:00; Start 01/17/19 at 09:00 Aspirin (Children'S Aspirin) 81 mg DAILY PO Last administered on 01/22/19at 10:01; Start 01/17/19 at 09:00 Atorvastatin Calcium (Lipitor) 40 mg HS PO Last administered on 01/22/19at 20:46; Start 01/16/19 at 21:00 Acetaminophen/ Codeine Phosphate (Tylenol #3) 1 tab PRN Q6HRS PRN PO MILD TO MOD PAIN Last administered on 01/17/19at 09:21; Start 01/16/19 at 18:00 Albuterol Sulfate (Ventolin Neb Soln) 2.5 mg PRN Q6HRS PRN NEB SHORTNESS OF BREATH; Start 01/16/19 at 18:00 Apixaban (Eliquis) 5 mg BID PO Last administered on 01/22/19at 20:46; Start 01/16/19 at 21:00 Vitamin B Complex/ Vitamin C (Marina-Jayme) 1 tab DAILY PO Last administered on 01/22/19at 10:01; Start 01/17/19 at 09:00 Furosemide (Lasix) 40 mg DAILY PO Last administered on 01/22/19at 10:01; Start 01/17/19 at 09:00 Hydroxyzine HCl (Atarax) 50 mg MoWeFr@0900 PO ; Start 01/18/19 at 09:00 Metoprolol Succinate (Toprol Xl) 25 mg DAILY PO Last administered on 01/22/19at 10:01; Start 01/17/19 at 09:00 Budesonide (Pulmicort) 0.5 mg RTBID NEB Last administered on 01/23/19at 07:50; Start 01/16/19 at 20:00 Albuterol Sulfate (Ventolin Neb Soln) 2.5 mg RTQID NEB Last administered on 01/23/19at 07:50; Start 01/16/19 at 20:00 Lidocaine HCl (Xylocaine-Mpf 1% 2ml Vial) 2 ml STK-MED ONCE .ROUTE ; Start 01/16/19 at 14:00; Stop 01/17/19 at 09:03; Status DC Acetaminophen/ Hydrocodone Bitart (Lortab 10325) 1 tab PRN Q6HRS PRN PO SEVERE PAIN Last administered on 01/23/19 06:15; Start 01/17/19 at 10:30 Prednisone (Prednisone) 10 mg DAILY PO Last administered on 01/22/19 10:01; Start 01/17/19 at 11:00 Pantoprazole Sodium (Protonix) 40 mg DAILYAC PO Last administered on 01/23/19 06:13; Start 01/17/19 at 11:30 Lidocaine (Lidoderm) 1 patch DAILY TD Last administered on 01/22/19at 10:00; Start 01/17/19 at 11:00 Miscellaneous (Lidoderm Patch Removal) 1 ea QHS MC Last administered on 01/20/19at 20:44; Start 01/17/19 at 21:00 Cyclobenzaprine HCl (Flexeril) 10 mg Q6HRS PO Last administered on 01/18/19at 17:42; Start 01/17/19 at 12:00 Polyethylene Glycol (miraLAX PACKET) 17 gm DAILY PO Last administered on 01/22/19at 10:00; Start 01/17/19 at 12:00 Lidocaine HCl (Xylocaine-Mpf 1% 2ml Vial) 2 ml STK-MED ONCE .ROUTE ; Start 01/18/19 at 09:25; Stop 01/18/19 at 09:25; Status DC Heparin Sodium (Porcine) (Heparin Sodium) 2,000 unit 1X STAT IV Last administered on 01/18/19at 10:21; Start 01/18/19 at 10:02; Stop 01/18/19 at 10:11; Status DC Sodium Chloride 1,000 ml @ 1,000 mls/hr Q1H PRN IV hypotension; Start 01/18/19 at 10:02; Stop 01/18/19 at 16:01; Status DC Acetaminophen (Tylenol) 500 mg 1X PRN PRN PO MILD PAIN / TEMP; Start 01/18/19 at 10:15; Stop 01/19/19 at 10:14; Status DC Diphenhydramine HCl (Benadryl) 25 mg 1X PRN PRN IV ITCHING; Start 01/18/19 at 10:15; Stop 01/19/19 at 10:14; Status DC Diphenhydramine HCl (Benadryl) 25 mg 1X PRN PRN IV ITCHING; Start 01/18/19 at 10:15; Stop 01/19/19 at 10:14; Status DC Sodium Chloride 1,000 ml @ 400 mls/hr Q2H30M PRN IV PATENCY; Start 01/18/19 at 10:02; Stop 01/18/19 at 22:01; Status DC Info (PHARMACY MONITORING -- do not chart) 1 each PRN DAILY PRN MC SEE COMMENTS; Start 01/18/19 at 10:15; Status Cancel Lidocaine HCl (Xylocaine-Mpf 1% 2ml Vial) 0.5 ml 1X STAT ID Last administered on 01/18/19at 10:20; Start 01/18/19 at 10:08; Stop 01/18/19 at 10:13; Status DC Ondansetron HCl (Zofran) 4 mg PRN Q4HRS PRN IVP NAUSEA/VOMITING Last administered on 01/19/19at 20:00; Start 01/19/19 at 19:30 Sodium Chloride 1,000 ml @ 1,000 mls/hr Q1H PRN IV hypotension; Start 01/21/19 at 08:29; Stop 01/21/19 at 14:28; Status DC Acetaminophen (Tylenol) 500 mg 1X PRN PRN PO MILD PAIN / TEMP; Start 01/21/19 at 08:30; Stop 01/22/19 at 08:29; Status DC Diphenhydramine HCl (Benadryl) 25 mg 1X PRN PRN IV ITCHING; Start 01/21/19 at 08:30; Stop 01/22/19 at 08:29; Status DC Diphenhydramine HCl (Benadryl) 25 mg 1X PRN PRN IV ITCHING; Start 01/21/19 at 08:30; Stop 01/22/19 at 08:29; Status DC Sodium Chloride 1,000 ml @ 400 mls/hr Q2H30M PRN IV PATENCY; Start 01/21/19 at 08:29; Stop 01/21/19 at 20:28; Status DC Info (PHARMACY MONITORING -- do not chart) 1 each PRN DAILY PRN MC SEE COMMENTS; Start 01/21/19 at 08:30; Status Cancel Lidocaine HCl (Xylocaine-Mpf 1% 2ml Vial) 0.5 ml 1X STAT ID Last administered on 01/21/19at 09:32; Start 01/21/19 at 08:43; Stop 01/21/19 at 08:46; Status DC Heparin Sodium (Porcine) (Heparin Sodium) 2,000 unit 1X STAT IV ; Start 01/21/19 at 09:30; Stop 01/21/19 at 09:32; Status DC Darbepoetin Canelo (ARANESP for DIALYSIS PTS) 60 mcg WEEKLYHS SQ Last administered on 01/21/19at 21:18; Start 01/21/19 at 21:00 Lidocaine HCl (Buffered Lidocaine 1%) 3 ml STK-MED ONCE .ROUTE ; Start 01/21/19 at 11:46; Stop 01/21/19 at 11:47; Status DC Gadoterate Meglumine (Dotarem) 10 ml STK-MED ONCE .ROUTE ; Start 01/21/19 at 12:31; Stop 01/21/19 at 12:32; Status DC Iohexol (Omnipaque 240 Mg/ml) 50 ml STK-MED ONCE .ROUTE ; Start 01/21/19 at 14:03; Stop 01/21/19 at 14:04; Status DC Midazolam HCl (Versed) 2 mg STK-MED ONCE .ROUTE ; Start 01/21/19 at 15:06; Stop 01/21/19 at 15:07; Status DC Fentanyl Citrate (Fentanyl 2ml Vial) 100 mcg STK-MED ONCE .ROUTE ; Start 01/21/19 at 15:07; Stop 01/21/19 at 15:07; Status DC Cefazolin Sodium 100 ml @ As Directed STK-MED ONCE IV ; Start 01/21/19 at 15:27; Stop 01/21/19 at 15:27; Status DC Lidocaine HCl (Buffered Lidocaine 1%) 3 ml 1X ONCE IJ Last administered on 01/21/19at 15:30; Start 01/21/19 at 15:30; Stop 01/21/19 at 15:37; Status DC Midazolam HCl (Versed) 2 mg 1X ONCE IV Last administered on 01/21/19at 15:30; Start 01/21/19 at 15:30; Stop 01/21/19 at 15:37; Status DC Fentanyl Citrate (Fentanyl 2ml Vial) 100 mcg 1X ONCE IV Last administered on 01/21/19at 15:30; Start 01/21/19 at 15:30; Stop 01/21/19 at 15:37; Status DC Cefazolin Sodium 50 ml @ 100 mls/hr 1X ONCE IV Last administered on 01/21/19at 15:30; Start 01/21/19 at 15:30; Stop 01/21/19 at 15:59; Status DC Gadoterate Meglumine (Dotarem) 10 ml 1X ONCE IVP Last administered on 01/21/19at 15:30; Start 01/21/19 at 15:30; Stop 01/21/19 at 15:37; Status DC Cefazolin Sodium 50 ml @ 100 mls/hr 1X ONCE IV Last administered on 01/21/19at 16:56; Start 01/21/19 at 15:30; Stop 01/21/19 at 15:59; Status DC Lidocaine HCl (Xylocaine-Mpf 1% 2ml Vial) 2 ml STK-MED ONCE .ROUTE ; Start 01/23/19 at 08:18; Stop 01/23/19 at 08:18; Status DC Active Scripts Active Tylenol With Codeine #3 Tablet (Acetaminophen/Codeine Phosphate) 1 Each Tablet 1 Tab PO PRN Q6HRS PRN Amiodarone Hcl 200 Mg Tablet 200 Mg PO DAILY 30 Days Eliquis (Apixaban) 5 Mg Tablet 5 Mg PO BID MDD ` Reported Metoprolol Succinate ( Xl ) (Metoprolol Succinate) 25 Mg Tab.er.24h 1 Tab PO DAILY Aspirin 81 Mg Tab.chew 1 Tab PO DAILY Lipitor (Atorvastatin Calcium) 40 Mg Tablet 40 Mg PO HS Furosemide 40 Mg Tablet 40 Mg PO DAILY Symbicort 160-4.5 Mcg Inhaler (Budesonide/Formoterol Fumarate) 10.2 Gm Hfa.aer.ad 2 Puff IH BID Proair Hfa Inhaler (Albuterol Sulfate) 8.5 Gm Hfa.aer.ad 1 Puff INH PRN Q6HRS PRN Marnia-Jayme Tablet (Folic Acid/Vitamin B Comp W-C) 0.8 Mg Tablet 0.8 Mg PO DAILY Hydroxyzine Hcl 25 Mg Tablet 50 Mg PO QMWF Vitals/I & O Vital Sign - Last 24 Hours 01/22/19 01/22/19 01/22/19 01/22/19 10:00 10:01 10:01 10:32 Temp 97.7 97.7 Pulse 9 9 87 Resp 18 20 B/P (MAP) 133/67 133/67 139/73 (95) Pulse Ox 100 89 O2 Delivery Nasal Cannula O2 Flow Rate 2.0 2.0 01/22/19 01/22/19 01/22/19 01/22/19 11:01 11:47 14:31 16:04 Temp 98.4 98.4 Pulse 76 Resp 18 B/P (MAP) 152/76 (101) Pulse Ox 95 98 O2 Delivery Nasal Cannula Nasal Cannula Nasal Cannula Nasal Cannula O2 Flow Rate 2.0 2.0 2.0 2.0 01/22/19 01/22/19 01/22/19 01/22/19 19:05 19:59 20:22 22:35 Temp 98.5 98.7 98.5 98.7 Pulse 82 82 Resp 20 20 B/P (MAP) 158/72 (100) 149/59 (89) Pulse Ox 98 94 98 O2 Delivery Nasal Cannula Nasal Cannula Nasal Cannula Nasal Cannula O2 Flow Rate 2.0 3.0 3.0 2.0 01/23/19 01/23/19 01/23/19 01/23/19 03:29 06:15 07:00 07:50 Temp 98.0 98.5 98.0 98.5 Pulse 78 86 Resp 20 20 B/P (MAP) 144/56 (85) 158/64 (95) Pulse Ox 97 100 98 O2 Delivery Nasal Cannula Nasal Cannula Nasal Cannula Nasal Cannula O2 Flow Rate 3.0 3.0 3.0 3.0 Intake and Output 01/22/19 01/22/19 01/23/19 15:00 23:00 07:00 Intake Total 518 ml 180 ml 600 ml Output Total 0 ml 0 ml 0 ml Balance 518 ml 180 ml 600 ml Nutrition Consultation Dietary Evaluation: Recommendations by RD: Increase Calorie Intake, Protein supplementation Comments: Continue w/renal/ADA diet as ordered, honor food preferences, and provide snacks as requested - would recommend liberalized diet as needed to promteo PO intake REC magic cup (orange) w/dinner trays Expected Outcomes/Goals: PO intake to meet >75% est needs Interpretation of weight loss: >5% in 1 month Malnutrition Findings: Food and Nutrition Intake (Mod: <75% est energy req 7days Weight Status: Appropriate DEVIN JOHNSON MD Jan 23, 2019 09:07
--- NOTE | 2019-01-23 09:32 | PDOC ---
SUBJECTIVE ROS Stable on HD , OBJECTIVE Vital Signs Vital Signs Date Time Temp Pulse Resp B/P (MAP) Pulse Ox O2 Delivery O2 Flow Rate FiO2 01/23/19 07:50 98 Nasal Cannula 3.0 01/23/19 07:00 98.5 86 20 158/64 (95) 98.5 I & 0 Intake and Output 01/23/19 07:00 Intake Total 1298 ml Output Total 0 ml Balance 1298 ml Intake Oral 1298 ml Output Urine Total 0 ml Stool Total 0 ml PHYSICAL EXAM Physical Exam General: No acute distress HEENT: Mucous membr. moist/pink neck Supple Lungs: CTA Heart:Bradycardic Abdomen: Soft, No tenderness, Extremities: No edema, LUE AV fistula with bruit Skin: No rashes Neuro: Grossly Normal Psych/Mental Status: Mental status NL, Mood NL No Guerrier DIAGNOSIS/ASSESSMENT Assessment & Plan ESRD- On HD MWF under Dr. Ramon's care seen on HD, tolerating well, continue a sordered, Richard Ricci HyperKalemia- Mild HD today Anemia- GI bleed in june 2018, post EGD On [facility] DM - primary managing PENNY- cant tolerate CPAP Low back pain with traumatic mechanical fall: resulting to L1 compression fracture Known asymptomatic SB: Lower HR noted in the past associated with hyperkalemic episode. Otherwise lifevest check unrevelaing of any significant bradyarrhythmias. NICM/chronic systolic CHF: compensated EF 35% NYHA 2 PAFIB: SR/SB, lowest 50s. Hypertension; antihypertensives CAD s/p PCI/stent to the RCA: Cath earlier this year with non-obstructive CAD, clnically stable COMMENT/RELEVANT DATA Meds Current Medications Medications (Trade) Dose Ordered Sig/Eric Start Time Stop Time Status Last Admin Dose Admin Acetaminophen (Tylenol) 500 mg 1X PRN PRN 01/21/19 08:30 01/22/19 08:29 DC Acetaminophen/ Codeine Phosphate (Tylenol #3) 1 tab PRN Q6HRS PRN 01/16/19 18:00 01/17/19 09:21 1 TAB Acetaminophen/ Hydrocodone Bitart (Lortab 10/325) 1 tab PRN Q6HRS PRN 01/17/19 10:30 01/23/19 06:15 1 TAB Albuterol Sulfate (Ventolin Neb Soln) 2.5 mg RTQID 01/16/19 20:00 01/23/19 07:50 2.5 MG Amiodarone HCl (Cordarone) 200 mg DAILY 01/17/19 09:00 01/22/19 10:00 200 MG Apixaban (Eliquis) 5 mg BID 01/16/19 21:00 01/22/19 20:46 5 MG Aspirin (Children'S Aspirin) 81 mg DAILY 01/17/19 09:00 01/22/19 10:01 81 MG Atorvastatin Calcium (Lipitor) 40 mg HS 01/16/19 21:00 01/22/19 20:46 40 MG Budesonide (Pulmicort) 0.5 mg RTBID 01/16/19 20:00 01/23/19 07:50 0.5 MG Cefazolin Sodium 50 ml @ 100 mls/hr 1X ONCE 01/21/19 15:30 01/21/19 15:59 DC 01/21/19 16:56 100 MLS/HR Cyclobenzaprine HCl (Flexeril) 10 mg Q6HRS 01/17/19 12:00 01/18/19 17:42 10 MG Darbepoetin Canelo (ARANESP for DIALYSIS PTS) 60 mcg WEEKLYHS 01/21/19 21:00 01/21/19 21:18 60 MCG Dextrose (Dextrose 50%-Water Syringe) 25 gm STK-MED ONCE 01/16/19 07:43 01/16/19 07:43 DC Diphenhydramine HCl (Benadryl) 25 mg 1X PRN PRN 01/21/19 08:30 01/22/19 08:29 DC Fentanyl Citrate (Fentanyl 2ml Vial) 100 mcg 1X ONCE 01/21/19 15:30 01/21/19 15:37 DC 01/21/19 15:30 50 MCG Furosemide (Lasix) 40 mg DAILY 01/17/19 09:00 01/22/19 10:01 40 MG Gadoterate Meglumine (Dotarem) 10 ml 1X ONCE 01/21/19 15:30 01/21/19 15:37 DC 01/21/19 15:30 10 ML Heparin Sodium (Porcine) (Heparin Sodium) 2,000 unit 1X STAT 01/21/19 09:30 01/21/19 09:32 DC Hydroxyzine HCl (Atarax) 50 mg MoWeFr@0900 10/11/19 09:00 Info (PHARMACY MONITORING -- do not chart) 1 each PRN DAILY PRN 01/21/19 08:30 Cancel Iohexol (Omnipaque 240 Mg/ml) 50 ml STK-MED ONCE 01/21/19 14:03 01/21/19 14:04 DC Labetalol HCl (Normodyne Iv Push) 10 mg PRN Q1HR PRN 01/16/19 14:00 01/17/19 13:59 DC Lidocaine (Lidoderm) 1 patch DAILY 01/17/19 11:00 01/22/19 10:00 1 PATCH Lidocaine HCl (Buffered Lidocaine 1%) 3 ml 1X ONCE 01/21/19 15:30 01/21/19 15:37 DC 01/21/19 15:30 4 ML Lidocaine HCl (Xylocaine-Mpf 1% 2ml Vial) 2 ml STK-MED ONCE 01/23/19 08:18 01/23/19 08:18 DC Metoprolol Succinate (Toprol Xl) 25 mg DAILY 01/17/19 09:00 01/22/19 10:01 25 MG Midazolam HCl (Versed) 2 mg 1X ONCE 01/21/19 15:30 01/21/19 15:37 DC 01/21/19 15:30 2 MG Miscellaneous (Lidoderm Patch Removal) 1 ea QHS 01/17/19 21:00 01/20/19 20:44 1 EA Ondansetron HCl (Zofran) 4 mg PRN Q4HRS PRN 01/19/19 19:30 01/19/19 20:00 4 MG Pantoprazole Sodium (Protonix) 40 mg DAILYAC 01/17/19 11:30 01/23/19 06:13 40 MG Polyethylene Glycol (miraLAX PACKET) 17 gm DAILY 01/17/19 12:00 01/22/19 10:00 17 GM Prednisone (Prednisone) 10 mg DAILY 01/17/19 11:00 01/22/19 10:01 10 MG Sodium Chloride 1,000 ml @ 400 mls/hr Q2H30M PRN 01/21/19 08:29 01/21/19 20:28 DC Vitamin B Complex/ Vitamin C (Marina-Jayme) 1 tab DAILY 01/17/19 09:00 01/22/19 10:01 1 TAB Lab Laboratory Tests Test 01/22/19 12:13 01/22/19 17:26 01/22/19 20:36 01/23/19 03:55 Glucose (Fingerstick) 109 mg/dL (70-99) 107 mg/dL (70-99) 144 mg/dL (70-99) White Blood Count 5.4 x10^3/uL (4.0-11.0) Red Blood Count 2.85 x10^6/uL (3.50-5.40) Hemoglobin 9.1 g/dL (12.0-15.5) Hematocrit 28.3 % (36.0-47.0) Mean Corpuscular Volume 99 fL (79-100) Mean Corpuscular Hemoglobin 32 pg (25-35) Mean Corpuscular Hemoglobin Concent 32 g/dL (31-37) Red Cell Distribution Width 14.3 % (11.5-14.5) Platelet Count 235 x10^3/uL (140-400) Neutrophils (%) (Auto) 69 % (31-73) Lymphocytes (%) (Auto) 13 % (24-48) Monocytes (%) (Auto) 13 % (0-9) Eosinophils (%) (Auto) 4 % (0-3) Basophils (%) (Auto) 1 % (0-3) Neutrophils # (Auto) 3.7 x10^3/uL (1.8-7.7) Lymphocytes # (Auto) 0.7 x10^3/uL (1.0-4.8) Monocytes # (Auto) 0.7 x10^3/uL (0.0-1.1) Eosinophils # (Auto) 0.2 x10^3/uL (0.0-0.7) Basophils # (Auto) 0.0 x10^3/uL (0.0-0.2) Sodium Level 144 mmol/L (136-145) Potassium Level 5.5 mmol/L (3.5-5.1) Chloride Level 104 mmol/L (98-107) Carbon Dioxide Level 32 mmol/L (21-32) Anion Gap 8 (6-14) Blood Urea Nitrogen 39 mg/dL (7-20) Creatinine 6.6 mg/dL (0.6-1.0) Estimated GFR (Cockcroft-Gault) 7.4 Glucose Level 180 mg/dL (70-99) Calcium Level 8.2 mg/dL (8.5-10.1) Test 01/23/19 07:03 Glucose (Fingerstick) 105 mg/dL (70-99) Results All relevant outside records, renal labs, imaging studies, telemetry/EKG's were reviewed. DESIREE MELARA MD Jan 23, 2019 09:32
--- NOTE | 2019-01-23 11:21 | SNU/HH DC ---
DISCHARGE WITH HOME HEALTH DISCHARGE INFORMATION: Discharge Date: Jan 22, 2019 Final Diagnosis: Problems Medical Problems: (1) Compression fracture of L1 lumbar vertebra Status: Acute (2) Compression fracture of L5 vertebra Status: Acute (3) End stage renal disease on dialysis Status: Acute (4) Symptomatic bradycardia Status: Acute Condition on Discharge: Stable CODE STATUS: Code Status: Full HOME HEALTH: Face to Face: I certify this patient is under my care and that I, or a nurse practitioner or physician's medical claims assistant working with me, had a face to face encounter that meets the physician face to face encounter requirements with this patient on []. RN For Eval/Treatment: Yes Physical Therapy For: Evalulation/Treatment Occupational Therapy For: Evaluation/Treatment Home Health Aide For: Self-care APPLICATION SUPPORT DEVELOPER For: Community Resources Pt Meets Homebound Status: Extreme weakness w/ amb. POST DISCHARGE ORDERS: Activity Instructions for Disc: No restrictions Weight Bearing Status after Di: No restrictions Bathing Instructions: Shower-keep dressing dry DIET AFTER DISCHARGE: Renal Wound/Incision Care: Do not change dressing, Reinforce dressing PRN CHECKS AFTER DISCHARGE: Checks after discharge: Check blood press - daily, Check blood sugar, ac/hs, Check your Temp as needed, Weigh Yourself Daily Comment: midline back TREATMENT/EQUIPMENT ORDERS: Adaptive Equipment Issued: None Discharge Respiratory Equipmen: Oxygen CERTIFICATION STATEMENT: Certification Statement: Certification Statement: Based on the above finding, I certify that this patient is confined to the home and needs intermittent retirement care, physical therapy and/or speech therapy, or continues to need occupational therapy.~ This patient is under my care, and I have initiated the establishment of the plan of care.~ This patient will be followed by myself or a community physician who will periodically review the plan of care. Home Meds Active Scripts Acetaminophen With Codeine (TYLENOL WITH CODEINE #3 TABLET) 1 Each Tablet, 1 TAB PO PRN Q6HRS PRN for PAIN, #15 TAB Prov:BONIFACIO PERES MD 01/14/19 Amiodarone Hcl (AMIODARONE HCL) 200 Mg Tablet, 200 MG PO DAILY for heart for 30 Days, #30 TAB Prov:SUDHEER ROBLES MD 12/05/18 Apixaban (ELIQUIS) 5 Mg Tablet, 5 MG PO BID for afib MDD `, #60 TAB Prov:CARMELA TAYLOR MD 03/24/18 Reported Medications Metoprolol Succinate (METOPROLOL SUCCINATE ( XL )) 25 Mg Tab.er.24h, 1 TAB PO DAILY for HTN, #30 TAB 5 Refills 01/16/19 Aspirin (ASPIRIN) 81 Mg Tab.chew, 1 TAB PO DAILY for afib, #30 TAB 3 Refills 11/05/18 Atorvastatin Calcium (LIPITOR) 40 Mg Tablet, 40 MG PO HS for FOR CHOLESTEROL, #30 TAB 0 Refills 06/08/18 Furosemide (FUROSEMIDE) 40 Mg Tablet, 40 MG PO DAILY for chf, TAB 06/08/18 Budesonide/Formoterol Fumarate (SYMBICORT 160-4.5 MCG INHALER) 10.2 Gm Hfa.aer.ad, 2 PUFF IH BID for copd, #10.6 GM 3 Refills 06/08/18 Albuterol Sulfate (PROAIR HFA INHALER) 8.5 Gm Hfa.aer.ad, 1 PUFF INH PRN Q6HRS PRN for SHORTNESS OF BREATH, INHALER 0 Refills 06/08/18 Folic Acid/Vitamin B Comp W-C (RAYNA-STEVE TABLET) 0.8 Mg Tablet, 0.8 MG PO DAILY for dialysis 03/21/18 Hydroxyzine Hcl (HYDROXYZINE HCL) 25 Mg Tablet, 50 MG PO QMWF for anxiety during dialysis, #30 TAB 03/21/18 YULIA DE ANDA III DO Jan 23, 2019 11:20
--- NOTE | 2019-01-23 11:22 | NUR ---
SS following up with discharge planning. KARLY declined pt for intermediate unit. SS met with pt to discuss discharge planning and home healthcare. Pt reported that about a year ago she had [facility] but had to pay co-pays for visits with her insurance. Pt reported that she will not do home healthcare again due to co-pays. SS offered other options for home healthcare and offered nurse navigator to meet with her to discuss. Pt declined stating that she drives herself to and from dialysis and doctors appointments and does not feel that it would be helpful. Pt's RN notified.
--- NOTE | 2019-01-23 12:29 | PDOC ---
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 She was found on CT scan of lumbar spine done on 01/14/2019, which showed new L1 vertebral body compression fracture. S/p kyphoplasty of L1. The patient lives with her and had steps to manage to get in the house, she feels she cannot manage home at this time. She has been seen by PMR, neurosurgery, nephrology, and cardiology. Patient was denied placement in the SNU by her insurance company, and will be discharged to her home. She has some left sided pain from compression wrap, feels her back is much better after kyphoplasty. No CP or SOB. 01/20/19 Pt seen and examined at bedside Pt was sitting up right Pt co about refilling her anxiety medication On 3.0 NC Chart and labs reviewed D/w RN Pt seen and examined at bedside Pt was sitting up, legs off the bed feeling better today Pt was not a candidate for outpatient kyphoplasty so will remain in the hospital for inpatient surgery Charts and labs reviewed OSIRIS LOYA 01/18/19 Pt seen and examined in Dialysis Pt was feeling better, upright, doing a sodoku puzzle Pt wants to go home for the weekend and come back on Monday for her kyphoplasty. Everyone is in agreement with this plan. Charts and labs reviewed OSIRIS LOYA 01/17/19 Pt seen and examined at bedside Still complains of back pain Agreed to have surgery if needed Awaiting neurosurgery consult from Dr. Bower Charts and labs reviewed OSIRIS LOYA Vitals/I&O Vitals/I&O: Vital Signs Date Time Temp Pulse Resp B/P (MAP) Pulse Ox O2 Delivery O2 Flow Rate FiO2 01/23/19 07:50 Nasal Cannula 3.0 01/23/19 07:50 98 01/23/19 07:00 98.5 86 20 158/64 (95) 98.5 I & O 01/22/19 01/22/19 01/23/19 14:59 22:59 06:59 Intake Total 518 ml 180 ml 600 ml Output Total 0 ml 0 ml 0 ml Balance 518 ml 180 ml 600 ml Physical Exam General: Alert, Oriented X3, Cooperative, No acute distress Heart: Regular rate (SR/SB 50s), Normal S1, Normal S2, Other (4/6 systolic murmur to LLS border) Lungs: Clear Abdomen: Soft, No tenderness Extremities: No clubbing, No cyanosis, No edema Skin: No breakdown, No significant lesion Labs Labs: Laboratory Tests Test 01/22/19 17:26 01/22/19 20:36 01/23/19 03:55 01/23/19 07:03 Glucose (Fingerstick) 107 mg/dL (70-99) 144 mg/dL (70-99) 105 mg/dL (70-99) White Blood Count 5.4 x10^3/uL (4.0-11.0) Red Blood Count 2.85 x10^6/uL (3.50-5.40) Hemoglobin 9.1 g/dL (12.0-15.5) Hematocrit 28.3 % (36.0-47.0) Mean Corpuscular Volume 99 fL (79-100) Mean Corpuscular Hemoglobin 32 pg (25-35) Mean Corpuscular Hemoglobin Concent 32 g/dL (31-37) Red Cell Distribution Width 14.3 % (11.5-14.5) Platelet Count 235 x10^3/uL (140-400) Neutrophils (%) (Auto) 69 % (31-73) Lymphocytes (%) (Auto) 13 % (24-48) Monocytes (%) (Auto) 13 % (0-9) Eosinophils (%) (Auto) 4 % (0-3) Basophils (%) (Auto) 1 % (0-3) Neutrophils # (Auto) 3.7 x10^3/uL (1.8-7.7) Lymphocytes # (Auto) 0.7 x10^3/uL (1.0-4.8) Monocytes # (Auto) 0.7 x10^3/uL (0.0-1.1) Eosinophils # (Auto) 0.2 x10^3/uL (0.0-0.7) Basophils # (Auto) 0.0 x10^3/uL (0.0-0.2) Sodium Level 144 mmol/L (136-145) Potassium Level 5.5 mmol/L (3.5-5.1) Chloride Level 104 mmol/L (98-107) Carbon Dioxide Level 32 mmol/L (21-32) Anion Gap 8 (6-14) Blood Urea Nitrogen 39 mg/dL (7-20) Creatinine 6.6 mg/dL (0.6-1.0) Estimated GFR (Cockcroft-Gault) 7.4 Glucose Level 180 mg/dL (70-99) Calcium Level 8.2 mg/dL (8.5-10.1) Review of Systems Review of Systems: Patient Denies SOB or N/V Assessment and Plan Assessmemt and Plan Problems Medical Problems: (1) Compression fracture of L1 lumbar vertebra Status: Acute (2) Compression fracture of L5 vertebra Status: Acute (3) End stage renal disease on dialysis Status: Acute (4) Symptomatic bradycardia Status: Acute Assessment: Acute L1 fracture s/p kyphoplasty. Patient was seen and examined during her dialysis treatment. She was informed that she has been denied by her insurance company for placement in the SNU, and will be discharged to her home. She felt comfortable with this plan. Plan: 1. She will be discharged to her home today following her dialysis treatment. Comment Review of Relevant I have reviewed the following items mykel (where applicable) has been applied. YULIA DE ANDA III DO Jan 23, 2019 12:29
[2019-01-23] MEDS: POLYETHYLENE GLYCOL 3350 17 GM PACKET. PO SCH (13:15)
[2019-01-23] MEDS: FOLIC/VIT B COMP W-C (RENAL) TABLET. PO SCH (13:15)
[2019-01-23] MEDS: ASPIRIN CHEWABLE 81 MG TABLET. PO SCH (13:16)
[2019-01-23] MEDS: FUROSEMIDE 40 MG TABLET. PO SCH (13:16)
[2019-01-23] MEDS: predniSONE 10 MG TABLET PO SCH (13:16)
[2019-01-23] MEDS: APIXABAN 5 MG TABLET. PO SCH (13:16)
[2019-01-23] MEDS: LIDOCAINE (700MG/PATCH) PATCH. TD SCH (13:17)
[2019-01-23] MEDS: AMIODARONE HCL 200 MG TABLET. PO SCH (13:19)
[2019-01-23] MEDS: METOPROLOL SUCC 24HR ER 25 MG TAB.ER.24H. PO SCH (13:20)
[2019-01-23 14:26] VITALS: BP 140/81
[2019-01-23] MEDS ORDERED: DIALYSIS PATIENT. MC PRN ×2 (15:30)
--- NOTE | 2019-01-23 15:56 | NUR ---
Discharge Note: WANDA PRABHAKAR [address] [place] [address] Discharge instructions and discharge home medications reviewed with and a copy given. All questions have been answered and understanding verbalized. The following instructions and handouts were given: Kyphoplasty Discontinued IV line Patient discharged to home with self care via wheelchair
--- NOTE | 2019-01-24 15:00 | DS ---
DATE OF DISCHARGE: 01/23/2019 ADMISSION DIAGNOSES: Back pain, renal failure, and thoracic compression fracture. DISCHARGE DIAGNOSES: Status post kyphoplasty, chronic end-stage renal disease, on dialysis. HOSPITAL COURSE: The patient is a pleasant 73-year-old female, who presented with a compression fracture. She is on dialysis. We admitted her. We dialyzed her. We consulted Interventional Radiology. She was taken for kyphoplasty yesterday. She is doing great. We discharged to home. DISPOSITION: Home. ACTIVITY: As tolerated. DIET: Low sodium. MEDICATIONS: Please see the MRAD. TOTAL TIME: 38 minutes. NIAL Da DE ANDA DO DR: MAGO/courtney JOB#: [id number] / [id number]
== END 2019-01-23 15:10 | disposition home or self-care (01) | DRG 515 ==
LOC: ER 04:53 → 2 NORTH 05:00
PROVIDERS: ADMIT Internal Medicine; ATTEND Internal Medicine
PROC: 5A1D70Z Performance of Urinary Filtration, Intermittent, Less than 6 Hours Per Day (ICD-10-PCS; 2019-01-16)
PROC: 5A1D70Z Performance of Urinary Filtration, Intermittent, Less than 6 Hours Per Day (ICD-10-PCS; 2019-01-18)
PROC: 0QS03ZZ Reposition Lumbar Vertebra, Percutaneous Approach (ICD-10-PCS; principal; 2019-01-21)
PROC: 0QU03JZ Supplement Lumbar Vertebra with Synthetic Substitute, Percutaneous Approach (ICD-10-PCS; 2019-01-21)
PROC: 5A1D70Z Performance of Urinary Filtration, Intermittent, Less than 6 Hours Per Day (ICD-10-PCS; 2019-01-21)
PROC: 5A1D70Z Performance of Urinary Filtration, Intermittent, Less than 6 Hours Per Day (ICD-10-PCS; 2019-01-23)
DX: S32.019A Unspecified fracture of first lumbar vertebra, initial encounter for closed fracture (principal); N18.6 End stage renal disease; I13.2 Hypertensive heart and chronic kidney disease with heart failure and with stage 5 chronic kidney disease, or end stage renal disease; I42.8 Other cardiomyopathies; I50.22 Chronic systolic (congestive) heart failure; D64.9 Anemia, unspecified; E11.22 Type 2 diabetes mellitus with diabetic chronic kidney disease; E11.51 Type 2 diabetes mellitus with diabetic peripheral angiopathy without gangrene; E78.00 Pure hypercholesterolemia, unspecified; E78.5 Hyperlipidemia, unspecified; E87.5 Hyperkalemia; F41.9 Anxiety disorder, unspecified; G47.33 Obstructive sleep apnea (adult) (pediatric); I25.10 Atherosclerotic heart disease of native coronary artery without angina pectoris; I27.20 Pulmonary hypertension, unspecified; I45.10 Unspecified right bundle-branch block; I48.0 Paroxysmal atrial fibrillation; J44.9 Chronic obstructive pulmonary disease, unspecified; K21.9 Gastro-esophageal reflux disease without esophagitis; K57.90 Diverticulosis of intestine, part unspecified, without perforation or abscess without bleeding; E21.3 Hyperparathyroidism, unspecified; K21.0 Gastro-esophageal reflux disease with esophagitis; M51.36 Other intervertebral disc degeneration, lumbar region; R00.1 Bradycardia, unspecified; W18.39XA Other fall on same level, initial encounter; Y93.89 Activity, other specified; Y92.89 Other specified places as the place of occurrence of the external cause; Y99.8 Other external cause status; Z79.01 Long term (current) use of anticoagulants; Z82.49 Family history of ischemic heart disease and other diseases of the circulatory system; Z83.3 Family history of diabetes mellitus; Z86.79 Personal history of other diseases of the circulatory system; Z98.61 Coronary angioplasty status; Z98.62 Peripheral vascular angioplasty status; Z99.2 Dependence on renal dialysis; Z99.81 Dependence on supplemental oxygen; I25.2 Old myocardial infarction; Z91.041 Radiographic dye allergy status; Z98.49 Cataract extraction status, unspecified eye
CPT/HCPCS: 22514; 36415; 72148; 80048; 80053; 80069; 82962; 83735; 85007; 85025; 85610; 85730; 93005; 94640; 94760; 96374; 96375; 99152; A9575; C1713; C1758; J0690; J0882; J2250; J2405; J3010; J7042; J7512; J7613; J7626; 97116; 97530; 99285-25; G0378

== ENCOUNTER 2019-02-04 13:58 | Inpatient (IN) | payer MEDICARE ==
[~2019-02-04] VITALS: Ht 156.2 cm; Wt 60.4 kg
[~2019-02-04 13:58] MED LIST changes: +METO-239 PO
--- NOTE | 2019-02-04 16:15 | EKG ---
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
[2019-02-04 16:46] LABS: BASO % 1 % (0-3); EOS # 0.1 x10^3/uL (0.0-0.7); EOS % 1 % (0-3); HEMOGLOBIN 9.2 g/dL (12.0-15.5); LYMPH # 0.6 x10^3/uL (1.0-4.8); LYMPH % 8 % (24-48); MEAN CORPUSCULAR HEMOGLOBIN 32 pg (25-35); MEAN CORPUSCULAR HGB CONC 32 g/dL (31-37); MEAN CORPUSCULAR VOLUME 102 fL (79-100); MONO # 0.6 x10^3/uL (0.0-1.1); MONO % 8 % (0-9); NEUT # 6.1 x10^3/uL (1.8-7.7); NEUT % 83 % (31-73); PLATELET COUNT 258 x10^3/uL (140-400); RED BLOOD COUNT 2.86 x10^6/uL (3.50-5.40); RED CELL DISTRIBUTION WIDTH 15.4 % (11.5-14.5); WHITE BLOOD COUNT 7.4 x10^3/uL (4.0-11.0)
[2019-02-04 16:51] LABS: CALCIUM 8.3 mg/dL (8.5-10.1); GFR 8.3; POTASSIUM 5.1 mmol/L (3.5-5.1)
--- NOTE | 2019-02-04 16:53 | RAD ---
Exam: CT abdomen and pelvis without contrast INDICATION: Left abdominal pain with nausea and vomiting TECHNIQUE: Sequential axial images through the abdomen and pelvis obtained without IV contrast. Sagittal and coronal reformatted images were reconstructed from the axial data and reviewed. Comparisons: None FINDINGS: Heart is mildly enlarged. No pericardial effusion. Visualized lung bases are clear. No pleural effusion. Evaluation of the solid organs is limited secondary to noncontrast technique. Liver, spleen, pancreas, and adrenals are unremarkable. Gallbladder is distended with gallstones noted layering the dependent portion of the gallbladder. No perinephric inflammation or hydronephrosis. Kidneys are atrophic bilaterally. No renal or ureteral calculi. Bladder is decompressed not well evaluated. Uterus is not enlarged. No abnormal adnexal mass. Mild wall thickening at the cecum. Otherwise, Large and small bowel are unremarkable. No free intra-abdominal air or fluid. Abdominal aorta has a normal course and caliber. There is a aorto biiliac stent graft extending into the common iliac arteries. No enlarged abdominal lymph nodes are identified. There is a compression deformity of the L1 vertebral body with approximately 25 percent height loss. No significant retropulsion. No acute fractures are identified. IMPRESSION: 1. Mild wall thickening at the ascending colon, may relate to a focal colitis. 2. No renal or ureteral calculi. No evidence for obstructive uropathy. 3. Aortobiiliac stent graft, with aorta demonstrating similar configuration when compared to the prior study. Exposure: One or more of the following in the visualized dose reduction techniques were utilized for this examination: 1. Automated exposure control 2. Adjustment of the MA and/or KV according to patient size 3. Use of iterative of reconstructive technique Electronically signed by: Gabriella Beyer MD (02/04/2019 4:49 PM) [facility] [id number]
[2019-02-04 16:56] LABS: PROTHROMBIN TIME PATIENT 12.4 SEC (11.7-14.0)
[2019-02-04 16:57] LABS: ALBUMIN 2.7 g/dL (3.4-5.0); ALBUMIN/GLOBULIN RATIO 0.8 (1.0-1.7); TOTAL BILIRUBIN 0.3 mg/dL (0.2-1.0); TOTAL PROTEIN 6.2 g/dL (6.4-8.2)
--- NOTE | 2019-02-04 17:04 | PHYS DOC ---
Past Medical History Past Medical History: CAD, CHF, COPD, Diabetes-Type II, DVT, High Cholesterol, Heart Disease, Hypertension, [place], Renal Disease, Renal Failure, Other Additional Past Medical Histor: dialysis MWF, O2 3LNC @ home, CPAP, abdominal aneursym, Past Surgical History: Angioplasty, Other Additional Past Surgical Histo: cardiac cath with stent placement, rotator cuff surgery,AV graft, cataract, Alcohol Use: None Drug Use: None Adult General Chief Complaint Chief Complaint: ABDOMINAL PAIN HPI HPI Patient is a 73 year old AA female, accompanied by her , who presents to the ER with complaints of nausea, vomiting, diarrhea, constipation, and left sided abdominal pain and cramping for the last 4 days. Pt states when she vomits brown, bitter fluid is produced. She also reports having a decreased appetite. She went to dialysis this morning. She denies any fever, cough, shortness of breath, chest pain, palpitations, dysuria, hematuria, back pain, dizziness, or headache. She states she has felt lightheaded with position changes. Currently, she rates her pain a 9 out of 10 on pain scale, there are no alleviating, or exacerbating factors. Review of Systems Review of Systems Constitutional: Denies fever or chills [] Eyes: Denies redness, or eye pain; reports increased blurred vision HENT: Denies nasal congestion or sore throat [] Respiratory: Denies cough or shortness of breath [] Cardiovascular: No additional information not addressed in HPI [] GI: see HPI : Denies dysuria or hematuria [] Musculoskeletal: Denies back pain or joint pain [] Integument: Denies rash or skin lesions [] Neurologic: Denies headaches. reports light headedness Endocrine: Denies polyuria or polydipsia [] All other systems were reviewed and found to be within normal limits, except as documented in this note. Allergies Allergies Allergies Coded Allergies Type Severity Reaction Last Updated Verified Iodinated Contrast Media Allergy Intermediate 11/06/17 Yes Physical Exam Physical Exam Constitutional: Well developed, well nourished, no acute distress, non-toxic appearance. [] HENT: Normocephalic, atraumatic, bilateral external ears normal, oropharynx dry, no oral exudates, nose normal. [] Eyes: PERRLA, EOMI, conjunctiva normal, no discharge. [] Neck: Normal range of motion, no stridor. [] Cardiovascular:Heart rate regular rhythm, no murmur [] Lungs & Thorax: Bilateral breath sounds clear to auscultation [] Abdomen: Bowel sounds normal, soft, LUQ and LLQ tenderness, no rebound tenderness, no guarding, no masses, no pulsatile masses. [] Skin: Warm, dry, no erythema, no rash. [] Back: No tenderness Extremities: No cyanosis, no clubbing, ROM intact, no edema. [] Neurologic: Alert and oriented X 3, no focal deficits noted. [] Psychologic: Affect normal, judgement normal, mood normal. [] Current Patient Data Vital Signs Vital Signs Date Time Temp Pulse Resp B/P (MAP) Pulse Ox O2 Delivery O2 Flow Rate FiO2 02/04/19 15:24 98.2 88 14 185/77 (113) 95 Nasal Cannula 3.0 98.2 Lab Values Laboratory Tests Test 02/04/19 16:35 White Blood Count 7.4 x10^3/uL (4.0-11.0) Red Blood Count 2.86 x10^6/uL (3.50-5.40) L Hemoglobin 9.2 g/dL (12.0-15.5) L Hematocrit 29.0 % (36.0-47.0) L Mean Corpuscular Volume 102 fL (79-100) H Mean Corpuscular Hemoglobin 32 pg (25-35) Mean Corpuscular Hemoglobin Concent 32 g/dL (31-37) Red Cell Distribution Width 15.4 % (11.5-14.5) H Platelet Count 258 x10^3/uL (140-400) Neutrophils (%) (Auto) 83 % (31-73) H Lymphocytes (%) (Auto) 8 % (24-48) L Monocytes (%) (Auto) 8 % (0-9) Eosinophils (%) (Auto) 1 % (0-3) Basophils (%) (Auto) 1 % (0-3) Neutrophils # (Auto) 6.1 x10^3/uL (1.8-7.7) Lymphocytes # (Auto) 0.6 x10^3/uL (1.0-4.8) L Monocytes # (Auto) 0.6 x10^3/uL (0.0-1.1) Eosinophils # (Auto) 0.1 x10^3/uL (0.0-0.7) Basophils # (Auto) 0.0 x10^3/uL (0.0-0.2) Prothrombin Time 12.4 SEC (11.7-14.0) Prothrombin Time INR 1.0 (0.8-1.1) Activated Partial Thromboplast Time 26 SEC (24-38) Sodium Level 144 mmol/L (136-145) Potassium Level 5.1 mmol/L (3.5-5.1) Chloride Level 109 mmol/L (98-107) H Carbon Dioxide Level 26 mmol/L (21-32) Anion Gap 9 (6-14) Blood Urea Nitrogen 18 mg/dL (7-20) Creatinine 6.0 mg/dL (0.6-1.0) H Estimated GFR (Cockcroft-Gault) 8.3 BUN/Creatinine Ratio 3 (6-20) L Glucose Level 77 mg/dL (70-99) Calcium Level 8.3 mg/dL (8.5-10.1) L Total Bilirubin 0.3 mg/dL (0.2-1.0) Aspartate Amino Transferase (AST) 24 U/L (15-37) Alanine Aminotransferase (ALT) 6 U/L (14-59) L Alkaline Phosphatase 134 U/L (46-116) H Creatine Kinase 81 U/L (26-192) Creatine Kinase MB (Mass) 3.2 ng/mL (0.0-3.6) Creatine Kinase MB Relative Index 4.0 % (0-4) Troponin I Quantitative 0.053 ng/mL (0.000-0.055) Total Protein 6.2 g/dL (6.4-8.2) L Albumin 2.7 g/dL (3.4-5.0) L Albumin/Globulin Ratio 0.8 (1.0-1.7) L Lipase 115 U/L (73-393) Laboratory Tests 02/04/19 16:35 Laboratory Tests 02/04/19 16:35 EKG EKG 1530- regular rhythm, rate 77, left anterior fascicular block, RBBB, no STEMI read by Dr. Mi Radiology/Procedures Radiology/Procedures PROCEDURE: CT ABDOMEN PELVIS WO CONTRAST Exam: CT abdomen and pelvis without contrast INDICATION: Left abdominal pain with nausea and vomiting TECHNIQUE: Sequential axial images through the abdomen and pelvis obtained without IV contrast. Sagittal and coronal reformatted images were reconstructed from the axial data and reviewed. Comparisons: None FINDINGS: Heart is mildly enlarged. No pericardial effusion. Visualized lung bases are clear. No pleural effusion. Evaluation of the solid organs is limited secondary to noncontrast technique. Liver, spleen, pancreas, and adrenals are unremarkable. Gallbladder is distended with gallstones noted layering the dependent portion of the gallbladder. No perinephric inflammation or hydronephrosis. Kidneys are atrophic bilaterally. No renal or ureteral calculi. Bladder is decompressed not well evaluated. Uterus is not enlarged. No abnormal adnexal mass. Mild wall thickening at the cecum. Otherwise, Large and small bowel are unremarkable. No free intra-abdominal air or fluid. Abdominal aorta has a normal course and caliber. There is a aorto biiliac stent graft extending into the common iliac arteries. No enlarged abdominal lymph nodes are identified. There is a compression deformity of the L1 vertebral body with approximately 25 percent height loss. No significant retropulsion. No acute fractures are identified. IMPRESSION: 1. Mild wall thickening at the ascending colon, may relate to a focal colitis. 2. No renal or ureteral calculi. No evidence for obstructive uropathy. 3. Aortobiiliac stent graft, with aorta demonstrating similar configuration when compared to the prior study. [] Course & Med Decision Making Course & Med Decision Making Pertinent Labs and Imaging studies reviewed. (See chart for details) DX: Abdominal pain, colitis 172- Spoke with Dr. Dozier who is the admitting physician, and care was assumed following discussion of patient. Patient's vital signs stable. Patient remains afebrile, appears nontoxic, respirations even and unlabored. Patient will be admitted to the med/tele floor. Patient's case and plan of care also discussed with [] Presley Disclaimer Dragon Disclaimer This electronic medical record was generated, in whole or in part, using a voice recognition dictation system. Departure Departure Impression: Primary Impression: Abdominal pain Additional Impression: Colitis Disposition: 09 ADMITTED INPATIENT Admitting Physician: GIAN Sarabia) Condition: STABLE Referrals: BERTO TORRES MD (PCP) Problem Qualifiers Primary Impression: Abdominal pain Abdominal location: generalized Qualified Codes: R10.84 - Generalized abdominal pain MY HERNANDEZ APRN Feb 04, 2019 17:04
--- NOTE | 2019-02-04 17:41 | PDOC1 ---
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 She has no appetite. She was only able to tolerate dialysis for 2 hours today and struggled after her session on Monday, had a "rough" last 3 days with intermittent abdominal pain with nausea and vomiting. CT abdomen shows inflammation possibly in ascending colon and near cecum. She was found on CT scan of lumbar spine done on 01/14/2019, which showed new L1 vertebral body compression fracture. S/p kyphoplasty of L1. The patient lives with her and had steps to manage to get in the house, she feels she cannot manage home at this time. She was previously seen by PMR, neurosurgery, nephrology, and cardiology (is awaiting AICD placement, has lifevest). She denies any CP or SOB Past Medical History Cardiovascular: AFIB, CAD, CHF, HTN, Hyperlipidemia, Other Pulmonary: Asthma, COPD, Other CENTRAL NERVOUS SYSTEM: Other GI: Diverticulosis Heme/Onc: Anemia NOS Psych: Anxiety Rheumatologic: No pertinent hx Infectious disease: No pertinent hx Renal/: Chronic renal failure Endocrine: Diabetes, Hyperparathyroidism Past Surgical History Past Surgical History: Appendectomy, Arthroscopy, Cataract Removal, Other Family History Family History: Coronary Artery Disease, Diabetes Social History Smoke: No ALCOHOL: none Drugs: None Current Problem List Problem List Problems Medical Problems: (1) Abdominal pain Status: Acute (2) Colitis Status: Acute Current Medications Current Medications Active Scripts Active Tylenol With Codeine #3 Tablet (Acetaminophen/Codeine Phosphate) 1 Each Tablet 1 Tab PO PRN Q6HRS PRN Amiodarone Hcl 200 Mg Tablet 200 Mg PO DAILY 30 Days Eliquis (Apixaban) 5 Mg Tablet 5 Mg PO BID MDD ` Reported Metoprolol Succinate ( Xl ) (Metoprolol Succinate) 25 Mg Tab.er.24h 1 Tab PO D AILY Aspirin 81 Mg Tab.chew 1 Tab PO DAILY Lipitor (Atorvastatin Calcium) 40 Mg Tablet 40 Mg PO HS Furosemide 40 Mg Tablet 40 Mg PO DAILY Symbicort 160-4.5 Mcg Inhaler (Budesonide/Formoterol Fumarate) 10.2 Gm Hfa.aer.ad 2 Puff IH BID Proair Hfa Inhaler (Albuterol Sulfate) 8.5 Gm Hfa.aer.ad 1 Puff INH PRN Q6HRS PRN Marina-Jayme Tablet (Folic Acid/Vitamin B Comp W-C) 0.8 Mg Tablet 0.8 Mg PO DAILY Hydroxyzine Hcl 25 Mg Tablet 50 Mg PO QMWF Allergies Allergies: Coded Allergies: Iodinated Contrast Media (Verified Allergy, Intermediate, 11/06/17) ROS General: YES: Fatigue, Malaise, Appetite; No: Chills, Night Sweats, Other PSYCHOLOGICAL ROS: No: Anxiety, Behavioral Disorder, Concentration difficultie, Decreased libido, Depression, Disorientation, Hallucinations, Hostility, Irritablity, Memory difficulties, Mood Swings, Obsessive thoughts, Physical abuse, Sexual abuse, Sleep disturbances, Suicidal ideation, Other Eyes: No Blurry vision, No Decreased vision, No Double vision, No Dry eyes, No Excessive tearing, No Eye Pain, No Itchy Eyes, No Loss of vision, No Photophobia, No Scotomata, No Uses contacts, No Uses glasses, No Other HEENT: No: Heacaches, Visual Changes, Hearing change, Nasal congestion, Nasal discharge, Oral lesions, Sinus pain, Sore Throat, Epistaxis, Sneezing, Snoring, Tinnitus, Vertigo, Vocal changes, Other ALLERGY AND IMMUNOLOGY: No: Hives, Insect Bite Sensitivity, Itchy/Watery Eyes, Nasal Congestion, Post Nasal Drip, Seasonal Allergies, Other Hematological and Lymphatic: No: Bleeding Problems, Blood Clots, Blood Transfusions, Brusing, Night Sweats, Pallor, Swollen Lymph Nodes, Other ENDOCRINE: No: Breast Changes, Galactorrhea, Hair Pattern Changes, Hot Flashes, Malaise/lethargy, Mood Swings, Palpitations, Polydipsia/polyuria, Skin Changes, Temperature Intolerance, Unexpected Weight Changes, Other Breast: No New/Changing Breast Lumps, No Nipple changes, No Nipple discharge, No Other Respiratory: No: Cough, Hemoptysis, Orthopnea, Pleuritic Pain, Shortness of breath, SOB with excertion, Sputum Changes, Stridor, Tachypnea, Wheezing, Other Cardiovascular: No Chest Pain, No Palpitations, No Orthopnea, No Paroxysmal Noc. Dyspnea, No Edema, No Lt Headedness, No Other Gastrointestinal: Yes Nausea, Yes Vomiting, Yes Abdominal Pain, Yes Diarrhea; No Constipation, No Melena, No Hematochezia, No Other Genitourinary: No Dysuria, No Frequency, No Incontinence, No Hematuria, No Retention, No Discharge, No Urgency, No Pain, No Flank Pain, No Other, No , No , No , No , No , No , No Musculoskeletal: No Gait Disturbance, No Joint Pain, No Joint Stiffness, No Joint Swelling, No Muscle Pain, No Muscular Weakness, No Pain In:, No Swelling In:, No Other Neurological: No Behavorial Changes, No Bowel/Bladder ControlChng, No Confusion, No Dizziness, No Gait Disturbance, No Headaches, No Impaired Coord/balance, No Memory Loss, No Numbness/Tingling, No Seizures, No Speech Problems, No Tremors, No Visual Changes, No Weakness, No Other Skin: Yes Dry Skin; No Eczema, No Hair Changes, No Lumps, No Mole Changes, No Mottling, No Nail Changes, No Pruritus, No Rash, No Skin Lesion Changes, No Other, No Acne Physical Exam General: Alert, Oriented X3, Cooperative, No acute distress HEENT: Atraumatic, PERRLA, EOMI, Mucous membr. moist/pink Lungs: Clear to auscultation, Normal air movement Heart: S1S2, murmurs Abdomen: Normal bowel sounds, Soft, No hepatosplenomegaly, Other (Slight RUQ tender) Rectal Exam: not examined Extremities: No clubbing, No cyanosis, No edema, Normal pulses, No tenderness/swelling Skin: No rashes, No breakdown, No significant lesion Neuro: Normal gait, Normal speech, Strength at 5/5 X4 ext, Normal tone, Sensation intact, Cranial nerves 3-12 NL, Reflexes 2+ Psych/Mental Status: Mental status NL, Mood NL Vitals Vitals Vital Signs Date Time Temp Pulse Resp B/P (MAP) Pulse Ox O2 Delivery O2 Flow Rate FiO2 02/04/19 15:24 98.2 88 14 185/77 (113) 95 Nasal Cannula 3.0 98.2 Labs Labs Laboratory Tests Test 02/04/19 16:35 White Blood Count 7.4 x10^3/uL (4.0-11.0) Red Blood Count 2.86 x10^6/uL (3.50-5.40) Hemoglobin 9.2 g/dL (12.0-15.5) Hematocrit 29.0 % (36.0-47.0) Mean Corpuscular Volume 102 fL (79-100) Mean Corpuscular Hemoglobin 32 pg (25-35) Mean Corpuscular Hemoglobin Concent 32 g/dL (31-37) Red Cell Distribution Width 15.4 % (11.5-14.5) Platelet Count 258 x10^3/uL (140-400) Neutrophils (%) (Auto) 83 % (31-73) Lymphocytes (%) (Auto) 8 % (24-48) Monocytes (%) (Auto) 8 % (0-9) Eosinophils (%) (Auto) 1 % (0-3) Basophils (%) (Auto) 1 % (0-3) Neutrophils # (Auto) 6.1 x10^3/uL (1.8-7.7) Lymphocytes # (Auto) 0.6 x10^3/uL (1.0-4.8) Monocytes # (Auto) 0.6 x10^3/uL (0.0-1.1) Eosinophils # (Auto) 0.1 x10^3/uL (0.0-0.7) Basophils # (Auto) 0.0 x10^3/uL (0.0-0.2) Prothrombin Time 12.4 SEC (11.7-14.0) Prothromb Time International Ratio 1.0 (0.8-1.1) Activated Partial Thromboplast Time 26 SEC (24-38) Sodium Level 144 mmol/L (136-145) Potassium Level 5.1 mmol/L (3.5-5.1) Chloride Level 109 mmol/L (98-107) Carbon Dioxide Level 26 mmol/L (21-32) Anion Gap 9 (6-14) Blood Urea Nitrogen 18 mg/dL (7-20) Creatinine 6.0 mg/dL (0.6-1.0) Estimated GFR (Cockcroft-Gault) 8.3 BUN/Creatinine Ratio 3 (6-20) Glucose Level 77 mg/dL (70-99) Calcium Level 8.3 mg/dL (8.5-10.1) Total Bilirubin 0.3 mg/dL (0.2-1.0) Aspartate Amino Transf (AST/SGOT) 24 U/L (15-37) Alanine Aminotransferase (ALT/SGPT) 6 U/L (14-59) Alkaline Phosphatase 134 U/L (46-116) Creatine Kinase 81 U/L (26-192) Creatine Kinase MB (Mass) 3.2 ng/mL (0.0-3.6) Creatine Kinase MB Relative Index 4.0 % (0-4) Troponin I Quantitative 0.053 ng/mL (0.000-0.055) Total Protein 6.2 g/dL (6.4-8.2) Albumin 2.7 g/dL (3.4-5.0) Albumin/Globulin Ratio 0.8 (1.0-1.7) Lipase 115 U/L (73-393) Laboratory Tests Test 02/04/19 16:35 White Blood Count 7.4 x10^3/uL (4.0-11.0) Red Blood Count 2.86 x10^6/uL (3.50-5.40) Hemoglobin 9.2 g/dL (12.0-15.5) Hematocrit 29.0 % (36.0-47.0) Mean Corpuscular Volume 102 fL (79-100) Mean Corpuscular Hemoglobin 32 pg (25-35) Mean Corpuscular Hemoglobin Concent 32 g/dL (31-37) Red Cell Distribution Width 15.4 % (11.5-14.5) Platelet Count 258 x10^3/uL (140-400) Neutrophils (%) (Auto) 83 % (31-73) Lymphocytes (%) (Auto) 8 % (24-48) Monocytes (%) (Auto) 8 % (0-9) Eosinophils (%) (Auto) 1 % (0-3) Basophils (%) (Auto) 1 % (0-3) Neutrophils # (Auto) 6.1 x10^3/uL (1.8-7.7) Lymphocytes # (Auto) 0.6 x10^3/uL (1.0-4.8) Monocytes # (Auto) 0.6 x10^3/uL (0.0-1.1) Eosinophils # (Auto) 0.1 x10^3/uL (0.0-0.7) Basophils # (Auto) 0.0 x10^3/uL (0.0-0.2) Prothrombin Time 12.4 SEC (11.7-14.0) Prothromb Time International Ratio 1.0 (0.8-1.1) Activated Partial Thromboplast Time 26 SEC (24-38) Sodium Level 144 mmol/L (136-145) Potassium Level 5.1 mmol/L (3.5-5.1) Chloride Level 109 mmol/L (98-107) Carbon Dioxide Level 26 mmol/L (21-32) Anion Gap 9 (6-14) Blood Urea Nitrogen 18 mg/dL (7-20) Creatinine 6.0 mg/dL (0.6-1.0) Estimated GFR (Cockcroft-Gault) 8.3 BUN/Creatinine Ratio 3 (6-20) Glucose Level 77 mg/dL (70-99) Calcium Level 8.3 mg/dL (8.5-10.1) Total Bilirubin 0.3 mg/dL (0.2-1.0) Aspartate Amino Transf (AST/SGOT) 24 U/L (15-37) Alanine Aminotransferase (ALT/SGPT) 6 U/L (14-59) Alkaline Phosphatase 134 U/L (46-116) Creatine Kinase 81 U/L (26-192) Creatine Kinase MB (Mass) 3.2 ng/mL (0.0-3.6) Creatine Kinase MB Relative Index 4.0 % (0-4) Troponin I Quantitative 0.053 ng/mL (0.000-0.055) Total Protein 6.2 g/dL (6.4-8.2) Albumin 2.7 g/dL (3.4-5.0) Albumin/Globulin Ratio 0.8 (1.0-1.7) Lipase 115 U/L (73-393) Images Images CT abdomen/pelvis non-contrast - 1. Mild wall thickening at the ascending colon, may relate to a focal colitis. 2. No renal or ureteral calculi. No evidence for obstructive uropathy. 3. Aortobiiliac stent graft, with aorta demonstrating similar configuration when compared to the prior study. VTE Prophylaxis Ordered VTE Prophylaxis Devices: Yes VTE Pharmacological Prophylaxi: Yes Assessment/Plan Assessment/Plan A/P: N/V/D - concerning for gastroenteritis vs colitis. No recent infections, will treat nausea. Check abdominal dopplers as mesenteric ischemia is a distinct possibility Acute abdominal pain - colicky, colitis on CT. will manage expectantly. No clear indication this is infectious, will r/o ischemia Prior L1 fracture s/p kyphoplasty 01/21 - pain control ESRD - MWF HD. Will inform nephrology of admission Coronary artery disease - stable Chronic congestive heart failure s/p lifevest - awaiting AICD placement Asthmatic bronchitis - cont on nebs Arrhythmias - on Chronic anticoagulation Hyperlipidemia - on statin Anemia - of chronic renal disease Moderate protein calorie malnutrition - supplements DM2 - mostly diet controlled, last A1c was 6 FEN - Renal diet PPX - eliquis FULL CODE Dispo - inpatient for N/V/D KERLINE LEON MD Feb 04, 2019 17:41
--- NOTE | 2019-02-04 17:46 | RAD ---
Exam: CT head INDICATION: Increased blurred vision, lightheadedness TECHNIQUE: Sequential axial images through the head were obtained without the administration of IV contrast. Comparisons: 09/03/2017 FINDINGS: No focal parenchymal lesion or hemorrhage is identified. There is no midline shift or sulcal effacement. Patchy hypodensities are noted within the periventricular and subcortical white matter, stable from prior exam. 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 No acute vascular territory infarction is identified. Ly-white distinction is preserved. The ventricular system is within normal limits without compression hydrocephalus. The basal cisterns are well maintained. The visualized portions of the paranasal sinuses and mastoid air cells are well-pneumatized. No acute fractures. IMPRESSION: Chronic changes without acute intracranial abnormality. Exposure: One or more of the following in the visualized dose reduction techniques were utilized for this examination: 1. Automated exposure control 2. Adjustment of the MA and/or KV according to patient size Use of iterative of reconstructive technique Electronically signed by: Gabriella Beyer MD (02/04/2019 5:43 PM) [id number]
[2019-02-04 21:38] VITALS: BP 125/71
[2019-02-04] MEDS ORDERED: ONDANSETRON PF 4 MG/2 ML VIAL. IVP PRN (22:00)
[2019-02-04] MEDS ORDERED: fentaNYL PF VIAL 100 MCG/2 ML VIAL IVP PRN (22:00)
[2019-02-04] MEDS ORDERED: ALBUTEROL SULFATE 2.5 MG/3 ML NEBU. INH PRN (22:00)
[2019-02-04] MEDS ORDERED: APIXABAN 5 MG TABLET. PO SCH (23:00)
[2019-02-04 23:34] VITALS: BP 168/63
[2019-02-04] MEDS: APIXABAN 2.5 MG TABLET. PO SCH (23:50)
[2019-02-04] MEDS: ATORVASTATIN CALCIUM 40 MG TABLET. PO SCH (23:50)
[2019-02-05] MEDS: ANTI-COAG MONITOR BY PHARMACY. MC PRN (02:42)
[2019-02-05 03:20] VITALS: BP 152/56
[2019-02-05 06:43] LABS: ALBUMIN 2.4 g/dL (3.4-5.0); CALCIUM 8.2 mg/dL (8.5-10.1); GFR 6.9; PHOSPHORUS 4.5 mg/dL (2.6-4.7); POTASSIUM 5.1 mmol/L (3.5-5.1)
[2019-02-05 07:15] VITALS: BP 156/66
[2019-02-05] MEDS: BUDESONIDE 0.5 MG/2 ML NEBU. NEB SCH ×2 (08:00→20:46)
[2019-02-05] MEDS: ALBUTEROL SULFATE 2.5 MG/3 ML NEBU. NEB SCH ×4 (08:01→20:45)
[2019-02-05] MEDS ORDERED: cloNIDine HCL 0.1 MG TABLET PO PRN (08:30)
[2019-02-05] MEDS ORDERED: ACETAMINOPHEN/CODEINE 300/30MG TABLET. PO PRN (08:30)
[2019-02-05] MEDS ORDERED: TEMAZEPAM 7.5 MG CAPSULE PO PRN (08:30)
[2019-02-05] MEDS: FOLIC/VIT B COMP W-C (RENAL) TABLET. PO SCH (09:33)
[2019-02-05] MEDS: AMIODARONE HCL 200 MG TABLET. PO SCH (09:34)
[2019-02-05] MEDS: metroNIDAZOLE 500 MG TABLET PO SCH ×2 (09:34→21:17)
[2019-02-05] MEDS: FUROSEMIDE 40 MG TABLET. PO SCH (09:34)
[2019-02-05] MEDS: APIXABAN 2.5 MG TABLET. PO SCH (09:34)
[2019-02-05] MEDS: ASPIRIN CHEWABLE 81 MG TABLET. PO SCH (09:34)
[2019-02-05] MEDS: METOPROLOL SUCC 24HR ER 25 MG TAB.ER.24H. PO SCH (09:35)
[2019-02-05] MEDS ORDERED: CIPROFLOXACIN HCL 250 MG TABLET. PO ONE (10:00)
--- NOTE | 2019-02-05 10:10 | RAD ---
ABD PELVIS RETROPERITON DOPP History: Concern for mesenteric ischemia Comparison: CT January 27, 2019. Technique: Sonographic examination of the mesenteric vasculature with Doppler Findings: Normal aortic velocity 102 cm/s. Superior mesenteric artery: Upper limits of normal superior mesenteric artery proximal velocity 247 cm/s. Normal mid velocity 225 cm/s and distal velocity 137 cm/s. Celiac artery: Proximal 363 cm/s which is elevated. Impression: 1. Elevated celiac artery velocity, indicating stenosis. Electronically signed by: Neal Ortega DO (02/05/2019 10:07 AM) [facility]
--- NOTE | 2019-02-05 10:23 | PDOC ---
PROGRESS NOTES Chief Complaint Chief Complaint COLITIS , ascending colon by CT Abd pain ESRD on HD MWF AOCD Severe CM with LIFE VEST (nov 2018) Prior L1 fracture s/p kyphoplasty 01/21 - pain control Coronary artery disease - stable Chronic congestive heart failure s/p lifevest - awaiting AICD placement Arrhythmias - on Chronic anticoagulation Hyperlipidemia - on statin Moderate protein calorie malnutrition - supplements DM2 - mostly diet controlled, last A1c was 6 History of Present Illness History of Present Illness some mild abd pain, but tolerating PO well FOr some reason trops were gathered x 2 and expected mild elevation in this ESRD and CAD pt :Life vest she wears, placed nov 2018 by our group - told to wear for 6 mos PLAn: START PO abx for colitis - renal dosing Add pT OT HD per renal Cards consult, ff up COnt OAC Vitals Vitals Vital Signs Date Time Temp Pulse Resp B/P (MAP) Pulse Ox O2 Delivery O2 Flow Rate FiO2 02/05/19 09:35 81 156/66 02/05/19 08:19 100 Nasal Cannula 3.0 02/05/19 07:15 98.1 18 98.1 Physical Exam General: Alert, Oriented X3, Cooperative, No acute distress Lungs: Clear Abdomen: Normal bowel sounds, Soft, No hepatosplenomegaly, Other (Slight RUQ tender) Extremities: No clubbing, No cyanosis, No edema, Normal pulses, No tenderness/swelling Skin: No rashes, No breakdown, No significant lesion Labs LABS Laboratory Tests Test 02/04/19 16:35 02/05/19 00:45 02/05/19 06:00 02/05/19 07:53 White Blood Count 7.4 x10^3/uL (4.0-11.0) Red Blood Count 2.86 x10^6/uL (3.50-5.40) Hemoglobin 9.2 g/dL (12.0-15.5) Hematocrit 29.0 % (36.0-47.0) Mean Corpuscular Volume 102 fL (79-100) Mean Corpuscular Hemoglobin 32 pg (25-35) Mean Corpuscular Hemoglobin Concent 32 g/dL (31-37) Red Cell Distribution Width 15.4 % (11.5-14.5) Platelet Count 258 x10^3/uL (140-400) Neutrophils (%) (Auto) 83 % (31-73) Lymphocytes (%) (Auto) 8 % (24-48) Monocytes (%) (Auto) 8 % (0-9) Eosinophils (%) (Auto) 1 % (0-3) Basophils (%) (Auto) 1 % (0-3) Neutrophils # (Auto) 6.1 x10^3/uL (1.8-7.7) Lymphocytes # (Auto) 0.6 x10^3/uL (1.0-4.8) Monocytes # (Auto) 0.6 x10^3/uL (0.0-1.1) Eosinophils # (Auto) 0.1 x10^3/uL (0.0-0.7) Basophils # (Auto) 0.0 x10^3/uL (0.0-0.2) Prothrombin Time 12.4 SEC (11.7-14.0) Prothromb Time International Ratio 1.0 (0.8-1.1) Activated Partial Thromboplast Time 26 SEC (24-38) Sodium Level 144 mmol/L (136-145) 147 mmol/L (136-145) Potassium Level 5.1 mmol/L (3.5-5.1) 5.1 mmol/L (3.5-5.1) Chloride Level 109 mmol/L (98-107) 113 mmol/L (98-107) Carbon Dioxide Level 26 mmol/L (21-32) 26 mmol/L (21-32) Anion Gap 9 (6-14) 8 (6-14) Blood Urea Nitrogen 18 mg/dL (7-20) 22 mg/dL (7-20) Creatinine 6.0 mg/dL (0.6-1.0) 7.0 mg/dL (0.6-1.0) Estimated GFR (Cockcroft-Gault) 8.3 6.9 BUN/Creatinine Ratio 3 (6-20) Glucose Level 77 mg/dL (70-99) 50 mg/dL (70-99) Calcium Level 8.3 mg/dL (8.5-10.1) 8.2 mg/dL (8.5-10.1) Total Bilirubin 0.3 mg/dL (0.2-1.0) Aspartate Amino Transf (AST/SGOT) 24 U/L (15-37) Alanine Aminotransferase (ALT/SGPT) 6 U/L (14-59) Alkaline Phosphatase 134 U/L (46-116) Creatine Kinase 81 U/L (26-192) Creatine Kinase MB (Mass) 3.2 ng/mL (0.0-3.6) Creatine Kinase MB Relative Index 4.0 % (0-4) Troponin I Quantitative 0.053 ng/mL (0.000-0.055) 0.058 ng/mL (0.000-0.055) 0.071 ng/mL (0.000-0.055) Total Protein 6.2 g/dL (6.4-8.2) Albumin 2.7 g/dL (3.4-5.0) 2.4 g/dL (3.4-5.0) Albumin/Globulin Ratio 0.8 (1.0-1.7) Lipase 115 U/L (73-393) Vitamin B12 Level 651 pg/mL (247-911) Erythrocyte Sedimentation Rate 11 (0-25) Phosphorus Level 4.5 mg/dL (2.6-4.7) Glucose (Fingerstick) 59 mg/dL (70-99) Test 02/05/19 08:12 Glucose (Fingerstick) 75 mg/dL (70-99) Review of Systems Review of Systems abd pain, all else 14 pt neg Assessment and Plan Assessmemt and Plan Problems Medical Problems: (1) Abdominal pain Status: Acute (2) Colitis Status: Acute Comment Review of Relevant I have reviewed the following items mykel (where applicable) has been applied. Labs Laboratory Tests Test 02/04/19 16:35 02/05/19 00:45 02/05/19 06:00 02/05/19 07:53 White Blood Count 7.4 x10^3/uL (4.0-11.0) Red Blood Count 2.86 x10^6/uL (3.50-5.40) Hemoglobin 9.2 g/dL (12.0-15.5) Hematocrit 29.0 % (36.0-47.0) Mean Corpuscular Volume 102 fL (79-100) Mean Corpuscular Hemoglobin 32 pg (25-35) Mean Corpuscular Hemoglobin Concent 32 g/dL (31-37) Red Cell Distribution Width 15.4 % (11.5-14.5) Platelet Count 258 x10^3/uL (140-400) Neutrophils (%) (Auto) 83 % (31-73) Lymphocytes (%) (Auto) 8 % (24-48) Monocytes (%) (Auto) 8 % (0-9) Eosinophils (%) (Auto) 1 % (0-3) Basophils (%) (Auto) 1 % (0-3) Neutrophils # (Auto) 6.1 x10^3/uL (1.8-7.7) Lymphocytes # (Auto) 0.6 x10^3/uL (1.0-4.8) Monocytes # (Auto) 0.6 x10^3/uL (0.0-1.1) Eosinophils # (Auto) 0.1 x10^3/uL (0.0-0.7) Basophils # (Auto) 0.0 x10^3/uL (0.0-0.2) Prothrombin Time 12.4 SEC (11.7-14.0) Prothromb Time International Ratio 1.0 (0.8-1.1) Activated Partial Thromboplast Time 26 SEC (24-38) Sodium Level 144 mmol/L (136-145) 147 mmol/L (136-145) Potassium Level 5.1 mmol/L (3.5-5.1) 5.1 mmol/L (3.5-5.1) Chloride Level 109 mmol/L (98-107) 113 mmol/L (98-107) Carbon Dioxide Level 26 mmol/L (21-32) 26 mmol/L (21-32) Anion Gap 9 (6-14) 8 (6-14) Blood Urea Nitrogen 18 mg/dL (7-20) 22 mg/dL (7-20) Creatinine 6.0 mg/dL (0.6-1.0) 7.0 mg/dL (0.6-1.0) Estimated GFR (Cockcroft-Gault) 8.3 6.9 BUN/Creatinine Ratio 3 (6-20) Glucose Level 77 mg/dL (70-99) 50 mg/dL (70-99) Calcium Level 8.3 mg/dL (8.5-10.1) 8.2 mg/dL (8.5-10.1) Total Bilirubin 0.3 mg/dL (0.2-1.0) Aspartate Amino Transf (AST/SGOT) 24 U/L (15-37) Alanine Aminotransferase (ALT/SGPT) 6 U/L (14-59) Alkaline Phosphatase 134 U/L (46-116) Creatine Kinase 81 U/L (26-192) Creatine Kinase MB (Mass) 3.2 ng/mL (0.0-3.6) Creatine Kinase MB Relative Index 4.0 % (0-4) Troponin I Quantitative 0.053 ng/mL (0.000-0.055) 0.058 ng/mL (0.000-0.055) 0.071 ng/mL (0.000-0.055) Total Protein 6.2 g/dL (6.4-8.2) Albumin 2.7 g/dL (3.4-5.0) 2.4 g/dL (3.4-5.0) Albumin/Globulin Ratio 0.8 (1.0-1.7) Lipase 115 U/L (73-393) Vitamin B12 Level 651 pg/mL (247-911) Erythrocyte Sedimentation Rate 11 (0-25) Phosphorus Level 4.5 mg/dL (2.6-4.7) Glucose (Fingerstick) 59 mg/dL (70-99) Test 02/05/19 08:12 Glucose (Fingerstick) 75 mg/dL (70-99) Laboratory Tests Test 02/04/19 16:35 02/05/19 00:45 02/05/19 06:00 02/05/19 07:53 White Blood Count 7.4 x10^3/uL (4.0-11.0) Red Blood Count 2.86 x10^6/uL (3.50-5.40) Hemoglobin 9.2 g/dL (12.0-15.5) Hematocrit 29.0 % (36.0-47.0) Mean Corpuscular Volume 102 fL (79-100) Mean Corpuscular Hemoglobin 32 pg (25-35) Mean Corpuscular Hemoglobin Concent 32 g/dL (31-37) Red Cell Distribution Width 15.4 % (11.5-14.5) Platelet Count 258 x10^3/uL (140-400) Neutrophils (%) (Auto) 83 % (31-73) Lymphocytes (%) (Auto) 8 % (24-48) Monocytes (%) (Auto) 8 % (0-9) Eosinophils (%) (Auto) 1 % (0-3) Basophils (%) (Auto) 1 % (0-3) Neutrophils # (Auto) 6.1 x10^3/uL (1.8-7.7) Lymphocytes # (Auto) 0.6 x10^3/uL (1.0-4.8) Monocytes # (Auto) 0.6 x10^3/uL (0.0-1.1) Eosinophils # (Auto) 0.1 x10^3/uL (0.0-0.7) Basophils # (Auto) 0.0 x10^3/uL (0.0-0.2) Prothrombin Time 12.4 SEC (11.7-14.0) Prothromb Time International Ratio 1.0 (0.8-1.1) Activated Partial Thromboplast Time 26 SEC (24-38) Sodium Level 144 mmol/L (136-145) 147 mmol/L (136-145) Potassium Level 5.1 mmol/L (3.5-5.1) 5.1 mmol/L (3.5-5.1) Chloride Level 109 mmol/L (98-107) 113 mmol/L (98-107) Carbon Dioxide Level 26 mmol/L (21-32) 26 mmol/L (21-32) Anion Gap 9 (6-14) 8 (6-14) Blood Urea Nitrogen 18 mg/dL (7-20) 22 mg/dL (7-20) Creatinine 6.0 mg/dL (0.6-1.0) 7.0 mg/dL (0.6-1.0) Estimated GFR (Cockcroft-Gault) 8.3 6.9 BUN/Creatinine Ratio 3 (6-20) Glucose Level 77 mg/dL (70-99) 50 mg/dL (70-99) Calcium Level 8.3 mg/dL (8.5-10.1) 8.2 mg/dL (8.5-10.1) Total Bilirubin 0.3 mg/dL (0.2-1.0) Aspartate Amino Transf (AST/SGOT) 24 U/L (15-37) Alanine Aminotransferase (ALT/SGPT) 6 U/L (14-59) Alkaline Phosphatase 134 U/L (46-116) Creatine Kinase 81 U/L (26-192) Creatine Kinase MB (Mass) 3.2 ng/mL (0.0-3.6) Creatine Kinase MB Relative Index 4.0 % (0-4) Troponin I Quantitative 0.053 ng/mL (0.000-0.055) 0.058 ng/mL (0.000-0.055) 0.071 ng/mL (0.000-0.055) Total Protein 6.2 g/dL (6.4-8.2) Albumin 2.7 g/dL (3.4-5.0) 2.4 g/dL (3.4-5.0) Albumin/Globulin Ratio 0.8 (1.0-1.7) Lipase 115 U/L (73-393) Vitamin B12 Level 651 pg/mL (247-911) Erythrocyte Sedimentation Rate 11 (0-25) Phosphorus Level 4.5 mg/dL (2.6-4.7) Glucose (Fingerstick) 59 mg/dL (70-99) Test 02/05/19 08:12 Glucose (Fingerstick) 75 mg/dL (70-99) Medications Current Medications Albuterol Sulfate (Ventolin Neb Soln) 2.5 mg PRN Q6HRS PRN INH SHORTNESS OF BREATH; Start 02/04/19 at 22:00 Amiodarone HCl (Cordarone) 200 mg DAILY PO Last administered on 02/05/19at 09:34; Start 02/05/19 at 09:00 Apixaban (Eliquis) 5 mg BID PO ; Start 02/04/19 at 23:00; Stop 02/04/19 at 22:14; Status DC Aspirin (Children'S Aspirin) 81 mg DAILY PO Last administered on 02/05/19at 09:34; Start 02/05/19 at 09:00 Atorvastatin Calcium (Lipitor) 40 mg HS PO Last administered on 02/04/19at 23:50; Start 02/04/19 at 23:00 Vitamin B Complex/ Vitamin C (Marina-Jayme) 1 tab DAILY PO Last administered on 02/05/19at 09:33; Start 02/05/19 at 09:00 Metoprolol Succinate (Toprol Xl) 25 mg DAILY PO Last administered on 02/05/19 09:35; Start 02/05/19 at 09:00 Budesonide (Pulmicort) 0.5 mg RTBID NEB Last administered on 02/05/19at 08:00; Start 02/05/19 at 08:00 Ondansetron HCl (Zofran) 4 mg PRN Q6HRS PRN IVP NAUSEA/VOMITING 1ST CHOICE; Start 02/04/19 at 22:00 Fentanyl Citrate (Fentanyl 2ml Vial) 50 mcg PRN Q2HR PRN IVP SEVERE PAIN 7-10; Start 02/04/19 at 22:00 Albuterol Sulfate (Ventolin Neb Soln) 2.5 mg RTQID NEB Last administered on 02/05/19at 08:01; Start 02/05/19 at 08:00 Info (Anti-Coagulation Monitoring By Pharmacy) 1 each PRN DAILY PRN MC SEE COMMENTS Last administered on 02/05/19at 02:42; Start 02/04/19 at 22:15 Apixaban (Eliquis) 2.5 mg BID PO Last administered on 02/05/19at 09:34; Start 02/04/19 at 22:30 Acetaminophen (Tylenol) 500 mg PRN Q6HRS PRN PO MILD PAIN / TEMP; Start at 08:30 Acetaminophen/ Codeine Phosphate (Tylenol #3) 1 tab PRN Q6HRS PRN PO MODERATE PAIN; Start 02/05/19 at 08:30 Clonidine HCl (Catapres) 0.1 mg PRN Q1HR PRN PO HYPERTENSION; Start 02/05/19 at 08:30 Furosemide (Lasix) 40 mg DAILY PO Last administered on 02/05/19at 09:34; Start 02/05/19 at 09:00 Hydroxyzine HCl (Atarax) 50 mg QMWF PO ; Start 02/06/19 at 16:00 Temazepam (Restoril) 7.5 mg PRN QHS PRN PO INSOMNIA; Start 02/05/19 at 08:30 Ciprofloxacin (Cipro) 250 mg Q24H PO ; Start 02/06/19 at 16:00 Metronidazole (Flagyl) 500 mg Q12HR PO Last administered on 02/05/19at 09:34; Start 02/05/19 at 09:00 Ciprofloxacin (Cipro) 250 mg 1X ONCE PO Last administered on 02/05/19at 09:34; Start 02/05/19 at 10:00; Stop 02/05/19 at 10:01; Status DC Active Scripts Active Tylenol With Codeine #3 Tablet (Acetaminophen/Codeine Phosphate) 1 Each Tablet 1 Tab PO PRN Q6HRS PRN Amiodarone Hcl 200 Mg Tablet 200 Mg PO DAILY 30 Days Eliquis (Apixaban) 5 Mg Tablet 5 Mg PO BID MDD ` Reported Metoprolol Succinate ( Xl ) (Metoprolol Succinate) 25 Mg Tab.er.24h 1 Tab PO DAILY Aspirin 81 Mg Tab.chew 1 Tab PO DAILY Lipitor (Atorvastatin Calcium) 40 Mg Tablet 40 Mg PO HS Furosemide 40 Mg Tablet 40 Mg PO DAILY Symbicort 160-4.5 Mcg Inhaler (Budesonide/Formoterol Fumarate) 10.2 Gm Hfa.aer.ad 2 Puff IH BID Proair Hfa Inhaler (Albuterol Sulfate) 8.5 Gm Hfa.aer.ad 1 Puff INH PRN Q6HRS PRN Marina-Jayme Tablet (Folic Acid/Vitamin B Comp W-C) 0.8 Mg Tablet 0.8 Mg PO DAILY Hydroxyzine Hcl 25 Mg Tablet 50 Mg PO QMWF Vitals/I & O Vital Sign - Last 24 Hours 02/04/19 02/04/19 02/04/19 02/04/19 15:24 15:38 16:22 16:52 Temp 98.2 98.2 Pulse 88 77 80 76 Resp 14 12 12 12 B/P (MAP) 185/77 (113) 169/72 (104) 186/74 (111) 180/76 (110) Pulse Ox 95 100 100 99 O2 Delivery Nasal Cannula Nasal Cannula Nasal Cannula Nasal Cannula O2 Flow Rate 3.0 3.0 3.0 3.0 02/04/19 02/04/19 02/04/19 02/04/19 19:35 21:38 23:30 23:34 Temp 98.6 98.7 98.6 98.7 Pulse 81 82 86 Resp 12 16 16 B/P (MAP) 168/73 (104) 125/71 (89) 168/63 (98) Pulse Ox 100 98 98 O2 Delivery Nasal Cannula Nasal Cannula Nasal Cannula Nasal Cannula O2 Flow Rate 3.0 3.0 3.0 3.0 02/05/19 02/05/19 02/05/19 02/05/19 03:20 07:15 08:19 09:34 Temp 98.2 98.1 98.2 98.1 Pulse 82 81 81 Resp 16 18 B/P (MAP) 152/56 (88) 156/66 (96) 156/66 Pulse Ox 97 97 100 O2 Delivery Nasal Cannula Nasal Cannula Nasal Cannula O2 Flow Rate 3.0 3.0 3.0 02/05/19 09:35 Pulse 81 B/P (MAP) 156/66 Intake and Output 02/04/19 02/04/19 02/05/19 15:00 23:00 07:00 Intake Total 240 ml Balance 240 ml CARMELA TAYLOR MD Feb 05, 2019 10:23
[2019-02-05 10:59] VITALS: BP 148/53
--- NOTE | 2019-02-05 11:51 | PDOC2 ---
DARSHANA PEPE ROLL PANNER 02/05/19 1151: CARDIAC CONSULT DATE OF CONSULT Date of Consult DATE: 02/05/19 TIME: 11:41 REASON FOR CONSULT Reason for Consult: LifeVest Elevated troponin REFERRING PHYSICIAN Referring Physician: Dr. Hill SOURCE Source: Chart review, Patient HISTORY OF PRESENT ILLNESS HISTORY OF PRESENT ILLNESS This is a 73 yo female, well known to ours service, who presented secondary to nausea, vomiting, diarrhea, and abdominal pain/cramping for the past 4 days. Denies any chest pain, palpitations, dizziness, diaphoresis, or shortness of breath. Does have a history of CMP and has LiveVest on. Troponin checked for unknown reasons and was noted to be mildly elevated, which prompted this consult PAST MEDICAL HISTORY Past Medical History Cardiovascular: CAD, CHF, HTN, Hyperlipidemia, Pulmonary hypertension, AFIB Pulmonary: Asthma, COPD, PNA, PENNY CENTRAL NERVOUS SYSTEM: Other (no pertinent hx) GI: GERD, esophagitis, hiatal hernia Heme/Onc: Anemia NOS, Other (DVT) Renal/: Chronic renal failure on HD, hyperkalemia Endocrine: Diabetes Dermatology: No pertinent hx PAST SURGICAL HISTORY Past Surgical History Appendectomy, Other (left rotator cuff sx), Other (PVD s/p LINOLEUM FLOOR INSTALLER/stent to left common iliac artery, endovascular AAA repair) FAMILY HISTORY Family History: Coronary Artery Disease, Diabetes SOCIAL HISTORY Social History Smoke: Quit ALCOHOL: none Drugs: None Lives: with Family CURRENT MEDICATIONS CURRENT MEDICATIONS Current Medications Medications (Trade) Dose Ordered Sig/Eric Route PRN Reason Start Time Stop Time Status Last Admin Dose Admin Amiodarone HCl (Cordarone) 200 mg DAILY PO 02/05/19 09:00 02/05/19 09:34 Aspirin (Children'S Aspirin) 81 mg DAILY PO 02/05/19 09:00 02/05/19 09:34 Atorvastatin Calcium (Lipitor) 40 mg HS PO 02/04/19 23:00 02/04/19 23:50 Vitamin B Complex/ Vitamin C (Marina-Jayme) 1 tab DAILY PO 02/05/19 09:00 02/05/19 09:33 Metoprolol Succinate (Toprol Xl) 25 mg DAILY PO 02/05/19 09:00 02/05/19 09:35 Budesonide (Pulmicort) 0.5 mg RTBID NEB 02/05/19 08:00 02/05/19 08:00 Albuterol Sulfate (Ventolin Neb Soln) 2.5 mg RTQID NEB 02/05/19 08:00 02/05/19 11:28 Info (Anti-Coagulation Monitoring By Pharmacy) 1 each PRN DAILY PRN MC SEE COMMENTS 02/04/19 22:15 02/05/19 02:42 Apixaban (Eliquis) 2.5 mg BID PO 02/04/19 22:30 02/05/19 09:34 Furosemide (Lasix) 40 mg DAILY PO 02/05/19 09:00 02/05/19 09:34 Metronidazole (Flagyl) 500 mg Q12HR PO 02/05/19 09:00 02/05/19 09:34 Ciprofloxacin (Cipro) 250 mg 1X ONCE PO 02/05/19 10:00 02/05/19 10:01 DC 02/05/19 09:34 ALLERGIES ALLERGIES: Coded Allergies: Iodinated Contrast Media (Verified Allergy, Intermediate, 11/06/17) ROS Review of System 14 point ROS conducted with pertinent positives noted above in HPI PHYSICAL EXAM PHYSICAL EXAM General: Alert, Oriented X3, Cooperative, No acute distress HEENT: Atraumatic, Mucous membr. moist/pink Lungs: Clear to auscultation, Normal air movement Heart: Regular rate (SB), Normal S1, Normal S2, Other (3/6 systolic murmur) Abdomen: Soft, diffuse tenderness Extremities: No cyanosis, No edema Skin: No breakdown, No significant lesion Neuro: Normal speech, Sensation intact Psych/Mental Status: Mental status NL, Mood NL MUSCULOSKELETAL: Osteoarthritic changes both hands VITALS/I&O VITALS/I&O: Vital Signs Date Time Temp Pulse Resp B/P (MAP) Pulse Ox O2 Delivery O2 Flow Rate FiO2 02/05/19 10:59 98.3 86 20 148/53 (84) 96 Nasal Cannula 3.0 98.3 I & O 02/04/19 02/04/19 02/05/19 14:59 22:59 06:59 Intake Total 240 ml Balance 240 ml LABS Lab: Laboratory Tests Test 02/04/19 16:35 02/05/19 00:45 02/05/19 06:00 02/05/19 07:53 White Blood Count 7.4 x10^3/uL (4.0-11.0) Red Blood Count 2.86 x10^6/uL (3.50-5.40) L Hemoglobin 9.2 g/dL (12.0-15.5) L Hematocrit 29.0 % (36.0-47.0) L Mean Corpuscular Volume 102 fL (79-100) H Mean Corpuscular Hemoglobin 32 pg (25-35) Mean Corpuscular Hemoglobin Concent 32 g/dL (31-37) Red Cell Distribution Width 15.4 % (11.5-14.5) H Platelet Count 258 x10^3/uL (140-400) Neutrophils (%) (Auto) 83 % (31-73) H Lymphocytes (%) (Auto) 8 % (24-48) L Monocytes (%) (Auto) 8 % (0-9) Eosinophils (%) (Auto) 1 % (0-3) Basophils (%) (Auto) 1 % (0-3) Neutrophils # (Auto) 6.1 x10^3/uL (1.8-7.7) Lymphocytes # (Auto) 0.6 x10^3/uL (1.0-4.8) L Monocytes # (Auto) 0.6 x10^3/uL (0.0-1.1) Eosinophils # (Auto) 0.1 x10^3/uL (0.0-0.7) Basophils # (Auto) 0.0 x10^3/uL (0.0-0.2) Prothrombin Time 12.4 SEC (11.7-14.0) Prothrombin Time INR 1.0 (0.8-1.1) Activated Partial Thromboplast Time 26 SEC (24-38) Sodium Level 144 mmol/L (136-145) 147 mmol/L (136-145) H Potassium Level 5.1 mmol/L (3.5-5.1) 5.1 mmol/L (3.5-5.1) Chloride Level 109 mmol/L (98-107) H 113 mmol/L (98-107) H Carbon Dioxide Level 26 mmol/L (21-32) 26 mmol/L (21-32) Anion Gap 9 (6-14) 8 (6-14) Blood Urea Nitrogen 18 mg/dL (7-20) 22 mg/dL (7-20) H Creatinine 6.0 mg/dL (0.6-1.0) H 7.0 mg/dL (0.6-1.0) H Estimated GFR (Cockcroft-Gault) 8.3 6.9 BUN/Creatinine Ratio 3 (6-20) L Glucose Level 77 mg/dL (70-99) 50 mg/dL (70-99) L Calcium Level 8.3 mg/dL (8.5-10.1) L 8.2 mg/dL (8.5-10.1) L Total Bilirubin 0.3 mg/dL (0.2-1.0) Aspartate Amino Transferase (AST) 24 U/L (15-37) Alanine Aminotransferase (ALT) 6 U/L (14-59) L Alkaline Phosphatase 134 U/L (46-116) H Creatine Kinase 81 U/L (26-192) Creatine Kinase MB (Mass) 3.2 ng/mL (0.0-3.6) Creatine Kinase MB Relative Index 4.0 % (0-4) Troponin I Quantitative 0.053 ng/mL (0.000-0.055) 0.058 ng/mL (0.000-0.055) 0.071 ng/mL (0.000-0.055) Total Protein 6.2 g/dL (6.4-8.2) L Albumin 2.7 g/dL (3.4-5.0) L 2.4 g/dL (3.4-5.0) L Albumin/Globulin Ratio 0.8 (1.0-1.7) L Lipase 115 U/L (73-393) Vitamin B12 Level 651 pg/mL (247-911) Erythrocyte Sedimentation Rate 11 (0-25) Phosphorus Level 4.5 mg/dL (2.6-4.7) Glucose (Fingerstick) 59 mg/dL (70-99) L Test 02/05/19 08:12 02/05/19 11:19 Glucose (Fingerstick) 75 mg/dL (70-99) 135 mg/dL (70-99) H Laboratory Tests 02/04/19 16:35 Laboratory Tests 02/04/19 16:35 02/05/19 06:00 ECHOCARDIOGRAM ECHOCARDIOGRAM <Conclusion> Left ventricle systolic function is moderately impaired. EF 35% Septal motion consistent with conduction abnormality. There is moderate to severe concentric left ventricular hypertrophy. Doppler and Color Flow revealed moderate to severe eccentric tricuspid regurgitation. There is severe pulmonary hypertension. The PA pressure was estimated at 87 mmHg. DATE: 12/04/18 0852 HEART CATH HEART CATH Conclusion 1. Nonobstructive coronary artery disease with 30% in-stent restenosis in volving the distal segment of the right coronary artery 2. Posterobasal wall hypokinesis with ejection fraction estimated at 45%. Recommendations Medical Therapy DATE: 06/11/18 1238 ASSESSMENT/PLAN ASSESSMENT/PLAN 1. Abdominal pain; nausea/vomiting/diarrhea. CT with probably colitis 2. NICM/chronic systolic CHF: compensated EF 35% NYHA 2. on LifeVest. Clinically compensated 3. Mild troponin elevation; type II demand ischemia. 4. PAFIB: presently SR 5. Hypertension; controlled 6. ESRD 7. CAD s/p PCI/stent to the RCA: Cath earlier this year with non-obstructive CAD 8. PENNY: intolerant to CPAP 9. Diabetes, II 10. Hyperlipidemia 11. PAD s/p LINOLEUM FLOOR INSTALLER/stent to the left common iliac artery. No claudication symptoms 12. Chronic RBBB Recommendations Fluid off loading via HD Continue BB and amiodarone for rhythm, rate control. Secondary prevention measures. Eliquis for stroke prevention Aot an ideal candidate for ACEi/ARB due to recurrnet hyperkalemia despite HD. Continue LifeVest upon discharge. Future reevaluation for TUBE COREMAKER-D consideration as an outpt after sufficient optimization. Supportive care Follow up on an outpatient basis FRANK REED MD 02/05/19 1726: CARDIAC CONSULT ASSESSMENT/PLAN ASSESSMENT/PLAN Patient seen and examined. Agree with COUPLER's assessment and plan. Slight troponin elevation probably demand ischemia CAD clinically stable and chronic systolic heart failure well compensated PAF , maintaining sinus rhythm with amiodarone Continue hemodialysis per nephrology team Continue current management for nausea, vomiting and diarrhea per IM No further cardiac workup is indicated at this time. Continue LifeVest upon discharge. Thank you for your consultation. DARSHANA PEPE APRN Feb 05, 2019 11:51 FRANK REED MD Feb 05, 2019 17:26
--- NOTE | 2019-02-05 12:03 | PDOC2 ---
CONSULT Date of Consult Date of Consult DATE: 02/05/19 TIME: 11:51 Reason for Consult Reason for Consult: ESRD Source Source: Chart review, Patient History of Present Illness Reason for Visit: Pt is a 73-year-old female,PMHx diabetes mellitus, end-stage renal disease, on hemodialysis, hypertension, coronary artery disease, congestive heart failure, asthmatic bronchitis, chronic anticoagulation, arrhythmiaswho comes to ED c/o intractable abdominal pain with associated nausea, vomiting, and diarrhea. She has no appetite. She was only able to tolerate dialysis for 2 hours yesterday .Had a "rough" last 3 days with intermittent abdominal pain with nausea and vomiting. CT abdomen shows inflammation possibly in ascending colon and near cecum. She was found on CT scan of lumbar spine done on 01/14/2019, which showed new L1 vertebral body compression fracture. S/p kyphoplasty of L1. She is awaiting AICD placement, has life vest). She denies any CP or SOB Past Medical History Cardiovascular: AFIB, CAD, CHF, HTN, Hyperlipidemia, Other Pulmonary: Asthma, COPD, Other CENTRAL NERVOUS SYSTEM: Other GI: Diverticulosis Heme/Onc: Anemia NOS Psych: Anxiety Rheumatologic: No pertinent hx Infectious disease: No pertinent hx Renal/: Chronic renal failure Endocrine: Diabetes, Hyperparathyroidism Past Surgical History Past Surgical History: Appendectomy, Arthroscopy, Cataract Removal, Other Family History Family History: Coronary Artery Disease, Diabetes Social History No ALCOHOL: none Drugs: None Lives: with Family Domestic Violence: Neg Current Problem List Problem List Problems Medical Problems: (1) Abdominal pain Status: Acute (2) Colitis Status: Acute Current Medications Current Medications Current Medications Albuterol Sulfate (Ventolin Neb Soln) 2.5 mg PRN Q6HRS PRN INH SHORTNESS OF BREATH; Start 02/04/19 at 22:00 Amiodarone HCl (Cordarone) 200 mg DAILY PO Last administered on 02/05/19at 09:34; Start 02/05/19 at 09:00 Apixaban (Eliquis) 5 mg BID PO ; Start 02/04/19 at 23:00; Stop 02/04/19 at 22:14; Status DC Aspirin (Children'S Aspirin) 81 mg DAILY PO Last administered on 02/05/19at 09:34; Start 02/05/19 at 09:00 Atorvastatin Calcium (Lipitor) 40 mg HS PO Last administered on 02/04/19at 23:50; Start 02/04/19 at 23:00 Vitamin B Complex/ Vitamin C (Marina-Jayme) 1 tab DAILY PO Last administered on 02/05/19 09:33; Start 02/05/19 at 09:00 Metoprolol Succinate (Toprol Xl) 25 mg DAILY PO Last administered on 02/05/19 09:35; Start 02/05/19 at 09:00 Budesonide (Pulmicort) 0.5 mg RTBID NEB Last administered on 02/05/19 08:00; Start 02/05/19 at 08:00 Ondansetron HCl (Zofran) 4 mg PRN Q6HRS PRN IVP NAUSEA/VOMITING 1ST CHOICE; Start 02/04/19 at 22:00 Fentanyl Citrate (Fentanyl 2ml Vial) 50 mcg PRN Q2HR PRN IVP SEVERE PAIN 7-10; Start 02/04/19 at 22:00 Albuterol Sulfate (Ventolin Neb Soln) 2.5 mg RTQID NEB Last administered on 02/05/19at 11:28; Start 02/05/19 at 08:00 Info (Anti-Coagulation Monitoring By Pharmacy) 1 each PRN DAILY PRN MC SEE COMMENTS Last administered on 02/05/19at 02:42; Start 02/04/19 at 22:15 Apixaban (Eliquis) 2.5 mg BID PO Last administered on 02/05/19 09:34; Start 02/04/19 at 22:30 Acetaminophen (Tylenol) 500 mg PRN Q6HRS PRN PO MILD PAIN / TEMP; Start 02/05/19 at 08:30 Acetaminophen/ Codeine Phosphate (Tylenol #3) 1 tab PRN Q6HRS PRN PO MODERATE PAIN; Start 02/05/19 at 08:30 Clonidine HCl (Catapres) 0.1 mg PRN Q1HR PRN PO HYPERTENSION; Start 02/05/19 at 08:30 Furosemide (Lasix) 40 mg DAILY PO Last administered on 02/05/19at 09:34; Start 02/05/19 at 09:00 Hydroxyzine HCl (Atarax) 50 mg QMWF PO ; Start 02/06/19 at 16:00 Temazepam (Restoril) 7.5 mg PRN QHS PRN PO INSOMNIA; Start 02/05/19 at 08:30 Ciprofloxacin (Cipro) 250 mg Q24H PO ; Start 02/06/19 at 16:00 Metronidazole (Flagyl) 500 mg Q12HR PO Last administered on 02/05/19at 09:34; Start 02/05/19 at 09:00 Ciprofloxacin (Cipro) 250 mg 1X ONCE PO Last administered on 02/05/19at 09:34; Start 02/05/19 at 10:00; Stop 02/05/19 at 10:01; Status DC Active Scripts Active Tylenol With Codeine #3 Tablet (Acetaminophen/Codeine Phosphate) 1 Each Tablet 1 Tab PO PRN Q6HRS PRN Amiodarone Hcl 200 Mg Tablet 200 Mg PO DAILY 30 Days Eliquis (Apixaban) 5 Mg Tablet 5 Mg PO BID MDD ` Reported Metoprolol Succinate ( Xl ) (Metoprolol Succinate) 25 Mg Tab.er.24h 1 Tab PO DAILY Aspirin 81 Mg Tab.chew 1 Tab PO DAILY Lipitor (Atorvastatin Calcium) 40 Mg Tablet 40 Mg PO HS Furosemide 40 Mg Tablet 40 Mg PO DAILY Symbicort 160-4.5 Mcg Inhaler (Budesonide/Formoterol Fumarate) 10.2 Gm Hfa.aer.ad 2 Puff IH BID Proair Hfa Inhaler (Albuterol Sulfate) 8.5 Gm Hfa.aer.ad 1 Puff INH PRN Q6HRS PRN Marina-Jayme Tablet (Folic Acid/Vitamin B Comp W-C) 0.8 Mg Tablet 0.8 Mg PO DAILY Hydroxyzine Hcl 25 Mg Tablet 50 Mg PO QMWF Allergies Allergies: Coded Allergies: Iodinated Contrast Media (Verified Allergy, Intermediate, 11/06/17) ROS Review of System Per HPI Physical Exam Physical Exam General: No acute distress HEENT: Mucous membr. moist/pink Lungs: Clear to auscultation, Normal air movement Heart: S1S2, murmurs Abdomen: Normal bowel sounds, Soft,Slight RUQ tender Extremities: No edema Skin: No rashes Neuro:Grossly normal No mcnulty Vital Signs Vital Signs Date Time Temp Pulse Resp B/P (MAP) Pulse Ox O2 Delivery O2 Flow Rate FiO2 02/05/19 10:59 98.3 86 20 148/53 (84) 96 Nasal Cannula 3.0 98.3 Assessment & Plan ESRD- On HD MWF under Dr. Ramon's care No indication for HD currently Tomorrow per her schedule HyperNatremia- Mild . monitor Abdominal pain- CT abdomen/pelvis non-contrast - Mild wall thickening at the ascending colon, may relate to a focal colitis. No renal or ureteral calculi. No evidence for obstructive uropathy. Aortobiiliac stent graft, with aorta demonstrating similar configuration when compared to the prior study. N/V/D - Per Primary Anemia- GI bleed in june 2018, post EGD PARISA per protocol for Hgb <10 DM - primary managing PENNY- cant tolerate CPAP Low back pain with traumatic mechanical fall: resulting to L1 compression fracture L1 fracture s/p kyphoplasty 01/21 Known asymptomatic SB: Lower HR noted in the past associated with hyperkalemic episode. Otherwise lifevest check unrevelaing of any significant bradyarrhythmias. NICM/chronic systolic CHF: compensated EF 35% NYHA 2 PAFIB: SR/SB, lowest 50s. Hypertension; antihypertensives CAD s/p PCI/stent to the RCA: Cath earlier this year with non-obstructive CAD, clnically stable Labs Labs Laboratory Tests Test 02/04/19 16:35 02/05/19 00:45 02/05/19 06:00 02/05/19 07:53 White Blood Count 7.4 x10^3/uL (4.0-11.0) Red Blood Count 2.86 x10^6/uL (3.50-5.40) Hemoglobin 9.2 g/dL (12.0-15.5) Hematocrit 29.0 % (36.0-47.0) Mean Corpuscular Volume 102 fL (79-100) Mean Corpuscular Hemoglobin 32 pg (25-35) Mean Corpuscular Hemoglobin Concent 32 g/dL (31-37) Red Cell Distribution Width 15.4 % (11.5-14.5) Platelet Count 258 x10^3/uL (140-400) Neutrophils (%) (Auto) 83 % (31-73) Lymphocytes (%) (Auto) 8 % (24-48) Monocytes (%) (Auto) 8 % (0-9) Eosinophils (%) (Auto) 1 % (0-3) Basophils (%) (Auto) 1 % (0-3) Neutrophils # (Auto) 6.1 x10^3/uL (1.8-7.7) Lymphocytes # (Auto) 0.6 x10^3/uL (1.0-4.8) Monocytes # (Auto) 0.6 x10^3/uL (0.0-1.1) Eosinophils # (Auto) 0.1 x10^3/uL (0.0-0.7) Basophils # (Auto) 0.0 x10^3/uL (0.0-0.2) Prothrombin Time 12.4 SEC (11.7-14.0) Prothromb Time International Ratio 1.0 (0.8-1.1) Activated Partial Thromboplast Time 26 SEC (24-38) Sodium Level 144 mmol/L (136-145) 147 mmol/L (136-145) Potassium Level 5.1 mmol/L (3.5-5.1) 5.1 mmol/L (3.5-5.1) Chloride Level 109 mmol/L (98-107) 113 mmol/L (98-107) Carbon Dioxide Level 26 mmol/L (21-32) 26 mmol/L (21-32) Anion Gap 9 (6-14) 8 (6-14) Blood Urea Nitrogen 18 mg/dL (7-20) 22 mg/dL (7-20) Creatinine 6.0 mg/dL (0.6-1.0) 7.0 mg/dL (0.6-1.0) Estimated GFR (Cockcroft-Gault) 8.3 6.9 BUN/Creatinine Ratio 3 (6-20) Glucose Level 77 mg/dL (70-99) 50 mg/dL (70-99) Calcium Level 8.3 mg/dL (8.5-10.1) 8.2 mg/dL (8.5-10.1) Total Bilirubin 0.3 mg/dL (0.2-1.0) Aspartate Amino Transf (AST/SGOT) 24 U/L (15-37) Alanine Aminotransferase (ALT/SGPT) 6 U/L (14-59) Alkaline Phosphatase 134 U/L (46-116) Creatine Kinase 81 U/L (26-192) Creatine Kinase MB (Mass) 3.2 ng/mL (0.0-3.6) Creatine Kinase MB Relative Index 4.0 % (0-4) Troponin I Quantitative 0.053 ng/mL (0.000-0.055) 0.058 ng/mL (0.000-0.055) 0.071 ng/mL (0.000-0.055) Total Protein 6.2 g/dL (6.4-8.2) Albumin 2.7 g/dL (3.4-5.0) 2.4 g/dL (3.4-5.0) Albumin/Globulin Ratio 0.8 (1.0-1.7) Lipase 115 U/L (73-393) Vitamin B12 Level 651 pg/mL (247-911) Erythrocyte Sedimentation Rate 11 (0-25) Phosphorus Level 4.5 mg/dL (2.6-4.7) Glucose (Fingerstick) 59 mg/dL (70-99) Test 02/05/19 08:12 02/05/19 11:19 Glucose (Fingerstick) 75 mg/dL (70-99) 135 mg/dL (70-99) Laboratory Tests Test 02/04/19 16:35 02/05/19 00:45 02/05/19 06:00 02/05/19 07:53 White Blood Count 7.4 x10^3/uL (4.0-11.0) Red Blood Count 2.86 x10^6/uL (3.50-5.40) Hemoglobin 9.2 g/dL (12.0-15.5) Hematocrit 29.0 % (36.0-47.0) Mean Corpuscular Volume 102 fL (79-100) Mean Corpuscular Hemoglobin 32 pg (25-35) Mean Corpuscular Hemoglobin Concent 32 g/dL (31-37) Red Cell Distribution Width 15.4 % (11.5-14.5) Platelet Count 258 x10^3/uL (140-400) Neutrophils (%) (Auto) 83 % (31-73) Lymphocytes (%) (Auto) 8 % (24-48) Monocytes (%) (Auto) 8 % (0-9) Eosinophils (%) (Auto) 1 % (0-3) Basophils (%) (Auto) 1 % (0-3) Neutrophils # (Auto) 6.1 x10^3/uL (1.8-7.7) Lymphocytes # (Auto) 0.6 x10^3/uL (1.0-4.8) Monocytes # (Auto) 0.6 x10^3/uL (0.0-1.1) Eosinophils # (Auto) 0.1 x10^3/uL (0.0-0.7) Basophils # (Auto) 0.0 x10^3/uL (0.0-0.2) Prothrombin Time 12.4 SEC (11.7-14.0) Prothromb Time International Ratio 1.0 (0.8-1.1) Activated Partial Thromboplast Time 26 SEC (24-38) Sodium Level 144 mmol/L (136-145) 147 mmol/L (136-145) Potassium Level 5.1 mmol/L (3.5-5.1) 5.1 mmol/L (3.5-5.1) Chloride Level 109 mmol/L (98-107) 113 mmol/L (98-107) Carbon Dioxide Level 26 mmol/L (21-32) 26 mmol/L (21-32) Anion Gap 9 (6-14) 8 (6-14) Blood Urea Nitrogen 18 mg/dL (7-20) 22 mg/dL (7-20) Creatinine 6.0 mg/dL (0.6-1.0) 7.0 mg/dL (0.6-1.0) Estimated GFR (Cockcroft-Gault) 8.3 6.9 BUN/Creatinine Ratio 3 (6-20) Glucose Level 77 mg/dL (70-99) 50 mg/dL (70-99) Calcium Level 8.3 mg/dL (8.5-10.1) 8.2 mg/dL (8.5-10.1) Total Bilirubin 0.3 mg/dL (0.2-1.0) Aspartate Amino Transf (AST/SGOT) 24 U/L (15-37) Alanine Aminotransferase (ALT/SGPT) 6 U/L (14-59) Alkaline Phosphatase 134 U/L (46-116) Creatine Kinase 81 U/L (26-192) Creatine Kinase MB (Mass) 3.2 ng/mL (0.0-3.6) Creatine Kinase MB Relative Index 4.0 % (0-4) Troponin I Quantitative 0.053 ng/mL (0.000-0.055) 0.058 ng/mL (0.000-0.055) 0.071 ng/mL (0.000-0.055) Total Protein 6.2 g/dL (6.4-8.2) Albumin 2.7 g/dL (3.4-5.0) 2.4 g/dL (3.4-5.0) Albumin/Globulin Ratio 0.8 (1.0-1.7) Lipase 115 U/L (73-393) Vitamin B12 Level 651 pg/mL (247-911) Erythrocyte Sedimentation Rate 11 (0-25) Phosphorus Level 4.5 mg/dL (2.6-4.7) Glucose (Fingerstick) 59 mg/dL (70-99) Test 02/05/19 08:12 02/05/19 11:19 Glucose (Fingerstick) 75 mg/dL (70-99) 135 mg/dL (70-99) Review All relevant outside records, renal labs, imaging studies, telemetry/EKG's were reviewed. DESIREE MELARA MD Feb 05, 2019 12:03
--- NOTE | 2019-02-05 12:49 | NUR ---
SW following pt for dc planning. Chart reviewed and pt lives at home with spouse. Pt is a readmission and was discharged home on 01/23 after declining Home health due to co-pays. Pt's insurance had also declined to approve SNU on previous admission. Pt is currently goes to [facility], ; fax [phone], Monday, Monday, and Monday at 0600 for HD. PT/OT ordered. SW will continue to follow pt as needed.
[2019-02-05 15:08] VITALS: BP 151/51
[2019-02-05 19:04] VITALS: BP 156/71
[2019-02-05] MEDS ORDERED: DARBEPOETIN ALFA 60 MCG/0.3 ML DISP.SYRIN. SQ SCH (21:00)
[2019-02-05] MEDS: ATORVASTATIN CALCIUM 40 MG TABLET. PO SCH (21:18)
[2019-02-05] MEDS: APIXABAN 5 MG TABLET. PO SCH (21:18)
[2019-02-05 23:13] VITALS: BP 151/65
[2019-02-06] MEDS: ACETAMINOPHEN 500 MG TABLET PO PRN ×2 (00:04→18:03)
[2019-02-06 03:00] VITALS: BP 139/67
[2019-02-06 07:15] VITALS: BP 142/61
[2019-02-06] MEDS: ALBUTEROL SULFATE 2.5 MG/3 ML NEBU. NEB SCH ×4 (07:49→19:18)
[2019-02-06] MEDS: BUDESONIDE 0.5 MG/2 ML NEBU. NEB SCH ×2 (07:49→19:18)
[2019-02-06] MEDS ORDERED: IV NORMAL SALINE 1000ML BAG 1,000 ML IV PRN ×2 (08:27)
[2019-02-06] MEDS ORDERED: DIALYSIS PATIENT. MC PRN (08:30)
[2019-02-06] MEDS ORDERED: diphenhydrAMINE 50 MG/ML VIAL IV PRN ×2 (08:30)
[2019-02-06] MEDS ORDERED: ACETAMINOPHEN 500 MG TABLET PO PRN (08:30)
[2019-02-06] MEDS ORDERED: LIDOCAINE 1% PF 2 ML VIAL. ONE ×2 (09:00→09:09)
--- NOTE | 2019-02-06 10:34 | PDOC ---
PROGRESS NOTES Chief Complaint Chief Complaint IMPRESSION COLITIS , ascending colon by CT Abd pain, consulted GI Mild wall thickening at the ascending colon, may relate to a focal colitis. No renal or ureteral calculi. No evidence for obstructive uropathy. Aortobiiliac stent graft, with aorta demonstrating similar configuration when c ompared to the prior study. ESRD on HD MWF AOCD Severe CARDIOMYOPATHY with LIFE VEST (nov 2018) Septal motion consistent with conduction abnormality. There is moderate to severe concentric left ventricular hypertrophy. Doppler and Color Flow revealed moderate to severe eccentric tricuspid regurgitation. There is severe pulmonary hypertension. The PA pressure was estimated at 87 mmHg. Prior L1 fracture s/p kyphoplasty 01/21 - pain control Coronary artery disease - stable Chronic congestive heart failure s/p lifevest - awaiting AICD placement Arrhythmias - on Chronic anticoagulation Hyperlipidemia - on statin Moderate protein calorie malnutrition - supplements DM2 - mostly diet controlled, last A1c was 6 38 MIN PT EXAM, CHART REVIEW, > 50% OF TIME SPENT WITH EXAM, CHART REVIEW, PT CARE COORDINATION History of Present Illness History of Present Illness some mild abd pain, but tolerating PO well FOr some reason trops were gathered x 2 and expected mild elevation in this ESRD and CAD pt :Life vest she wears, placed nov 2018 by our group - told to wear for 6 mos PLAn: START PO abx for colitis - renal dosing Add pT OT HD per renal Cards consult, ff up COnt OAC Vitals Vitals Vital Signs Date Time Temp Pulse Resp B/P (MAP) Pulse Ox O2 Delivery O2 Flow Rate FiO2 02/06/19 07:51 100 Nasal Cannula 3.0 02/06/19 07:15 98.3 69 18 142/61 (88) 98.3 Physical Exam General: Alert, Oriented X3, Cooperative, No acute distress Lungs: Clear Abdomen: Normal bowel sounds, Soft, No hepatosplenomegaly, Other (Slight RUQ tender) Extremities: No clubbing, No cyanosis, No edema, Normal pulses, No tenderness/swelling Skin: No rashes, No breakdown, No significant lesion Labs LABS Exam: CT abdomen and pelvis without contrast INDICATION: Left abdominal pain with nausea and vomiting TECHNIQUE: Sequential axial images through the abdomen and pelvis obtained without IV contrast. Sagittal and coronal reformatted images were reconstructed from the axial data and reviewed. Comparisons: None FINDINGS: Heart is mildly enlarged. No pericardial effusion. Visualized lung bases are clear. No pleural effusion. Evaluation of the solid organs is limited secondary to noncontrast technique. Liver, spleen, pancreas, and adrenals are unremarkable. Gallbladder is distended with gallstones noted layering the dependent portion of the gallbladder. No perinephric inflammation or hydronephrosis. Kidneys are atrophic bilaterally. No renal or ureteral calculi. Bladder is decompressed not well evaluated. Uterus is not enlarged. No abnormal adnexal mass. Mild wall thickening at the cecum. Otherwise, Large and small bowel are unremarkable. No free intra-abdominal air or fluid. Abdominal aorta has a normal course and caliber. There is a aorto biiliac stent graft extending into the common iliac arteries. No enlarged abdominal lymph nodes are identified. There is a compression deformity of the L1 vertebral body with approximately 25 percent height loss. No significant retropulsion. No acute fractures are identified. IMPRESSION: 1. Mild wall thickening at the ascending colon, may relate to a focal colitis. 2. No renal or ureteral calculi. No evidence for obstructive uropathy. 3. Aortobiiliac stent graft, with aorta demonstrating similar configuration when compared to the prior study. Exposure: One or more of the following in the visualized dose reduction techniques were utilized for this examination: 1. Automated exposure control 2. Adjustment of the MA and/or KV according to patient size 3. Use of iterative of reconstructive technique Electronically signed by: Gabriella Beyer MD (02/04/2019 4:49 PM) [facility] Laboratory Tests Test 02/05/19 11:19 02/05/19 16:37 02/05/19 21:52 02/06/19 07:17 Glucose (Fingerstick) 135 mg/dL (70-99) 92 mg/dL (70-99) 175 mg/dL (70-99) 101 mg/dL (70-99) Assessment and Plan Assessmemt and Plan Problems Medical Problems: (1) Abdominal pain Status: Acute (2) Colitis Status: Acute Comment Review of Relevant I have reviewed the following items mykel (where applicable) has been applied. Labs Laboratory Tests Test 02/04/19 16:35 02/05/19 00:45 02/05/19 06:00 02/05/19 07:53 White Blood Count 7.4 x10^3/uL (4.0-11.0) Red Blood Count 2.86 x10^6/uL (3.50-5.40) Hemoglobin 9.2 g/dL (12.0-15.5) Hematocrit 29.0 % (36.0-47.0) Mean Corpuscular Volume 102 fL (79-100) Mean Corpuscular Hemoglobin 32 pg (25-35) Mean Corpuscular Hemoglobin Concent 32 g/dL (31-37) Red Cell Distribution Width 15.4 % (11.5-14.5) Platelet Count 258 x10^3/uL (140-400) Neutrophils (%) (Auto) 83 % (31-73) Lymphocytes (%) (Auto) 8 % (24-48) Monocytes (%) (Auto) 8 % (0-9) Eosinophils (%) (Auto) 1 % (0-3) Basophils (%) (Auto) 1 % (0-3) Neutrophils # (Auto) 6.1 x10^3/uL (1.8-7.7) Lymphocytes # (Auto) 0.6 x10^3/uL (1.0-4.8) Monocytes # (Auto) 0.6 x10^3/uL (0.0-1.1) Eosinophils # (Auto) 0.1 x10^3/uL (0.0-0.7) Basophils # (Auto) 0.0 x10^3/uL (0.0-0.2) Prothrombin Time 12.4 SEC (11.7-14.0) Prothromb Time International Ratio 1.0 (0.8-1.1) Activated Partial Thromboplast Time 26 SEC (24-38) Sodium Level 144 mmol/L (136-145) 147 mmol/L (136-145) Potassium Level 5.1 mmol/L (3.5-5.1) 5.1 mmol/L (3.5-5.1) Chloride Level 109 mmol/L (98-107) 113 mmol/L (98-107) Carbon Dioxide Level 26 mmol/L (21-32) 26 mmol/L (21-32) Anion Gap 9 (6-14) 8 (6-14) Blood Urea Nitrogen 18 mg/dL (7-20) 22 mg/dL (7-20) Creatinine 6.0 mg/dL (0.6-1.0) 7.0 mg/dL (0.6-1.0) Estimated GFR (Cockcroft-Gault) 8.3 6.9 BUN/Creatinine Ratio 3 (6-20) Glucose Level 77 mg/dL (70-99) 50 mg/dL (70-99) Calcium Level 8.3 mg/dL (8.5-10.1) 8.2 mg/dL (8.5-10.1) Total Bilirubin 0.3 mg/dL (0.2-1.0) Aspartate Amino Transf (AST/SGOT) 24 U/L (15-37) Alanine Aminotransferase (ALT/SGPT) 6 U/L (14-59) Alkaline Phosphatase 134 U/L (46-116) Creatine Kinase 81 U/L (26-192) Creatine Kinase MB (Mass) 3.2 ng/mL (0.0-3.6) Creatine Kinase MB Relative Index 4.0 % (0-4) Troponin I Quantitative 0.053 ng/mL (0.000-0.055) 0.058 ng/mL (0.000-0.055) 0.071 ng/mL (0.000-0.055) Total Protein 6.2 g/dL (6.4-8.2) Albumin 2.7 g/dL (3.4-5.0) 2.4 g/dL (3.4-5.0) Albumin/Globulin Ratio 0.8 (1.0-1.7) Lipase 115 U/L (73-393) Vitamin B12 Level 651 pg/mL (247-911) Erythrocyte Sedimentation Rate 11 (0-25) Phosphorus Level 4.5 mg/dL (2.6-4.7) Glucose (Fingerstick) 59 mg/dL (70-99) Test 02/05/19 08:12 02/05/19 11:19 02/05/19 16:37 02/05/19 21:52 Glucose (Fingerstick) 75 mg/dL (70-99) 135 mg/dL (70-99) 92 mg/dL (70-99) 175 mg/dL (70-99) Test 02/06/19 07:17 Glucose (Fingerstick) 101 mg/dL (70-99) Laboratory Tests Test 02/05/19 11:19 02/05/19 16:37 02/05/19 21:52 02/06/19 07:17 Glucose (Fingerstick) 135 mg/dL (70-99) 92 mg/dL (70-99) 175 mg/dL (70-99) 101 mg/dL (70-99) Medications Current Medications Albuterol Sulfate (Ventolin Neb Soln) 2.5 mg PRN Q6HRS PRN INH SHORTNESS OF BREATH; Start 02/04/19 at 22:00 Amiodarone HCl (Cordarone) 200 mg DAILY PO Last administered on 02/05/19 09:34; Start 02/05/19 at 09:00 Apixaban (Eliquis) 5 mg BID PO ; Start 02/04/19 at 23:00; Stop 02/04/19 at 22:14; Status DC Aspirin (Children'S Aspirin) 81 mg DAILY PO Last administered on 02/05/19 09:34; Start 02/05/19 at 09:00 Atorvastatin Calcium (Lipitor) 40 mg HS PO Last administered on 02/05/19 21:18; Start 02/04/19 at 23:00 Vitamin B Complex/ Vitamin C (Marina-Jayme) 1 tab DAILY PO Last administered on 02/05/19 09:33; Start 02/05/19 at 09:00 Metoprolol Succinate (Toprol Xl) 25 mg DAILY PO Last administered on 02/05/19 09:35; Start 02/05/19 at 09:00 Budesonide (Pulmicort) 0.5 mg RTBID NEB Last administered on 02/06/19 07:49; Start 02/05/19 at 08:00 Ondansetron HCl (Zofran) 4 mg PRN Q6HRS PRN IVP NAUSEA/VOMITING 1ST CHOICE Last administered on 02/06/19 08:33; Start 02/04/19 at 22:00 Fentanyl Citrate (Fentanyl 2ml Vial) 50 mcg PRN Q2HR PRN IVP SEVERE PAIN 7-10; Start 02/04/19 at 22:00 Albuterol Sulfate (Ventolin Neb Soln) 2.5 mg RTQID NEB Last administered on 02/06/19 07:49; Start 02/05/19 at 08:00 Info (Anti-Coagulation Monitoring By Pharmacy) 1 each PRN DAILY PRN MC SEE COMMENTS Last administered on 10/29/19at 02:42; Start 02/04/19 at 22:15 Apixaban (Eliquis) 2.5 mg BID PO Last administered on 02/05/19 09:34; Start 02/04/19 at 22:30; Stop 02/05/19 at 13:59; Status DC Acetaminophen (Tylenol) 500 mg PRN Q6HRS PRN PO MILD PAIN / TEMP Last administered on 02/06/19at 00:04; Start 02/05/19 at 08:30 Acetaminophen/ Codeine Phosphate (Tylenol #3) 1 tab PRN Q6HRS PRN PO MODERATE PAIN; Start 02/05/19 at 08:30 Clonidine HCl (Catapres) 0.1 mg PRN Q1HR PRN PO HYPERTENSION; Start 02/05/19 at 08:30 Furosemide (Lasix) 40 mg DAILY PO Last administered on 02/05/19at 09:34; Start 02/05/19 at 09:00 Hydroxyzine HCl (Atarax) 50 mg QMWF PO ; Start 02/06/19 at 16:00 Temazepam (Restoril) 7.5 mg PRN QHS PRN PO INSOMNIA; Start 02/05/19 at 08:30 Ciprofloxacin (Cipro) 250 mg Q24H PO ; Start 02/06/19 at 16:00; Stop 02/05/19 at 13:58; Status DC Metronidazole (Flagyl) 500 mg Q12HR PO Last administered on 02/05/19at 21:17; Start 02/05/19 at 09:00 Ciprofloxacin (Cipro) 250 mg 1X ONCE PO Last administered on 02/05/19at 09:34; Start 02/05/19 at 10:00; Stop 02/05/19 at 10:01; Status DC Darbepoetin Canelo (ARANESP for DIALYSIS PTS) 60 mcg WEEKLYHS SQ Last administered on 02/05/19at 21:17; Start 02/05/19 at 21:00 Amoxicillin/ Clavulanate Potassium (Augmentin 500/ 125mg) 1 tab DAILY PO ; Start 02/06/19 at 09:00 Apixaban (Eliquis) 5 mg BID PO Last administered on 02/05/19at 21:18; Start 02/05/19 at 21:00 Sodium Chloride 1,000 ml @ 1,000 mls/hr Q1H PRN IV hypotension; Start 02/06/19 at 08:27; Stop 02/06/19 at 14:26 Acetaminophen (Tylenol) 500 mg 1X PRN PRN PO MILD PAIN / TEMP; Start 02/06/19 at 08:30; Stop 02/07/19 at 08:29 Diphenhydramine HCl (Benadryl) 25 mg 1X PRN PRN IV ITCHING; Start 02/06/19 at 08:30; Stop 02/07/19 at 08:29 Diphenhydramine HCl (Benadryl) 25 mg 1X PRN PRN IV ITCHING; Start 02/06/19 at 08:30; Stop 02/07/19 at 08:29 Sodium Chloride 1,000 ml @ 400 mls/hr Q2H30M PRN IV PATENCY; Start 02/06/19 at 08:27; Stop 02/06/19 at 20:26 Info (PHARMACY MONITORING -- do not chart) 1 each PRN DAILY PRN MC SEE COMMENTS; Start 02/06/19 at 08:30 Lidocaine HCl (Xylocaine-Mpf 1% 2ml Vial) 2 ml STK-MED ONCE .ROUTE ; Start 02/06/19 at 09:09; Stop 02/06/19 at 09:10; Status DC Active Scripts Active Tylenol With Codeine #3 Tablet (Acetaminophen/Codeine Phosphate) 1 Each Tablet 1 Tab PO PRN Q6HRS PRN Amiodarone Hcl 200 Mg Tablet 200 Mg PO DAILY 30 Days Eliquis (Apixaban) 5 Mg Tablet 5 Mg PO BID MDD ` Reported Metoprolol Succinate ( Xl ) (Metoprolol Succinate) 25 Mg Tab.er.24h 1 Tab PO DAILY Aspirin 81 Mg Tab.chew 1 Tab PO DAILY Lipitor (Atorvastatin Calcium) 40 Mg Tablet 40 Mg PO HS Furosemide 40 Mg Tablet 40 Mg PO DAILY Symbicort 160-4.5 Mcg Inhaler (Budesonide/Formoterol Fumarate) 10.2 Gm Hfa.aer.ad 2 Puff IH BID Proair Hfa Inhaler (Albuterol Sulfate) 8.5 Gm Hfa.aer.ad 1 Puff INH PRN Q6HRS PRN Marina-Jayme Tablet (Folic Acid/Vitamin B Comp W-C) 0.8 Mg Tablet 0.8 Mg PO DAILY Hydroxyzine Hcl 25 Mg Tablet 50 Mg PO QMWF Vitals/I & O Vital Sign - Last 24 Hours 02/05/19 02/05/19 02/05/19 02/05/19 10:59 15:08 15:58 19:04 Temp 98.3 97.9 98.2 98.3 97.9 98.2 Pulse 86 73 75 Resp 20 18 20 B/P (MAP) 148/53 (84) 151/51 (84) 156/71 (99) Pulse Ox 96 100 100 96 O2 Delivery Nasal Cannula Nasal Cannula Nasal Cannula Nasal Cannula O2 Flow Rate 3.0 3.0 3.0 3.0 02/05/19 02/05/19 02/05/19 02/05/19 20:10 20:48 20:49 23:13 Temp 98.5 98.5 Pulse 71 Resp 20 B/P (MAP) 151/65 (93) Pulse Ox 100 100 95 O2 Delivery Nasal Cannula Nasal Cannula Nasal Cannula Nasal Cannula O2 Flow Rate 3.0 3.0 3.0 3.0 02/06/19 02/06/19 02/06/19 03:00 07:15 07:51 Temp 98.4 98.3 98.4 98.3 Pulse 78 69 Resp 20 18 B/P (MAP) 139/67 (91) 142/61 (88) Pulse Ox 100 99 100 O2 Delivery Nasal Cannula Nasal Cannula Nasal Cannula O2 Flow Rate 3.0 3.0 3.0 Intake and Output 02/05/19 02/05/19 02/06/19 15:00 23:00 07:00 Intake Total 280 ml 280 ml Output Total 0 ml Balance 280 ml 280 ml 0 ml SUDHEER ROBLES MD Feb 06, 2019 10:34
[2019-02-06] MEDS: ANTI-COAG MONITOR BY PHARMACY. MC PRN (11:04)
[2019-02-06 13:34] VITALS: BP 152/57
[2019-02-06] MEDS: FOLIC/VIT B COMP W-C (RENAL) TABLET. PO SCH (13:39)
[2019-02-06] MEDS: AMOXICILLIN/K CLAV 500/125MG TABLET. PO SCH (13:39)
[2019-02-06] MEDS: AMIODARONE HCL 200 MG TABLET. PO SCH (13:39)
[2019-02-06] MEDS: ASPIRIN CHEWABLE 81 MG TABLET. PO SCH (13:39)
[2019-02-06] MEDS: metroNIDAZOLE 500 MG TABLET PO SCH ×2 (13:39→21:13)
[2019-02-06] MEDS: METOPROLOL SUCC 24HR ER 25 MG TAB.ER.24H. PO SCH (13:40)
[2019-02-06] MEDS: FUROSEMIDE 40 MG TABLET. PO SCH (13:40)
[2019-02-06] MEDS: APIXABAN 5 MG TABLET. PO SCH ×2 (13:40→21:13)
--- NOTE | 2019-02-06 14:32 | PDOC ---
SUBJECTIVE ROS Seen on HD, no concerns voiced OBJECTIVE Vital Signs Vital Signs Date Time Temp Pulse Resp B/P (MAP) Pulse Ox O2 Delivery O2 Flow Rate FiO2 02/06/19 13:40 90 152/57 02/06/19 13:34 98.8 20 95 Nasal Cannula 3.0 98.8 I & 0 Intake and Output 02/06/19 07:00 Intake Total 560 ml Output Total 0 ml Balance 560 ml Intake Oral 560 ml Output Urine Total 0 ml # Voids 1 # Bowel Movements 1 PHYSICAL EXAM Physical Exam General: No acute distress HEENT: Mucous membr. moist/pink Lungs: Clear to auscultation, Normal air movement Heart: S1S2, murmurs Abdomen: Normal bowel sounds, Soft,Slight RUQ tender Extremities: No edema Skin: No rashes Neuro:Grossly normal No mcnulty DIAGNOSIS/ASSESSMENT Assessment & Plan ESRD- On HD MWF under Dr. Ramon's care Seen on HD, tolerating well, continue as ordered, Richard Ricci Abdominal pain- CT abdomen/pelvis non-contrast - Mild wall thickening at the ascending colon, may relate to a focal colitis. No renal or ureteral calculi. No evidence for obstructive uropathy. Aortobiiliac stent graft, with aorta demonstrating similar configuration when compared to the prior study. N/V/D - Per Primary Anemia- GI bleed in june 2018, post EGD PARISA per protocol for Hgb <10 DM - primary managing PENNY- cant tolerate CPAP Low back pain with traumatic mechanical fall: resulting to L1 compression fracture L1 fracture s/p kyphoplasty 01/21 Known asymptomatic SB: Lower HR noted in the past associated with hyperkalemic episode. Otherwise lifevest check unrevelaing of any significant bradyarrhythmias. NICM/chronic systolic CHF: compensated EF 35% NYHA 2 PAFIB: SR/SB, lowest 50s. Hypertension; antihypertensives CAD s/p PCI/stent to the RCA: Cath earlier this year with non-obstructive CAD, clnically stable COMMENT/RELEVANT DATA Meds Current Medications Medications (Trade) Dose Ordered Sig/Eric Start Time Stop Time Status Last Admin Dose Admin Acetaminophen (Tylenol) 500 mg 1X PRN PRN 02/06/19 08:30 02/07/19 08:29 Acetaminophen/ Codeine Phosphate (Tylenol #3) 1 tab PRN Q6HRS PRN 02/05/19 08:30 Albuterol Sulfate (Ventolin Neb Soln) 2.5 mg RTQID 02/05/19 08:00 02/06/19 12:23 2.5 MG Amiodarone HCl (Cordarone) 200 mg DAILY 02/05/19 09:00 02/06/19 13:39 200 MG Amoxicillin/ Clavulanate Potassium (Augmentin 500/ 125mg) 1 tab DAILY 02/06/19 09:00 02/06/19 13:39 1 TAB Apixaban (Eliquis) 5 mg BID 02/05/19 21:00 02/06/19 13:40 5 MG Aspirin (Children'S Aspirin) 81 mg DAILY 02/05/19 09:00 02/06/19 13:39 81 MG Atorvastatin Calcium (Lipitor) 40 mg HS 02/04/19 23:00 02/05/19 21:18 40 MG Budesonide (Pulmicort) 0.5 mg RTBID 02/05/19 08:00 02/06/19 07:49 0.5 MG Ciprofloxacin (Cipro) 250 mg 1X ONCE 02/05/19 10:00 02/05/19 10:01 DC 02/05/19 09:34 250 MG Clonidine HCl (Catapres) 0.1 mg PRN Q1HR PRN 02/05/19 08:30 Darbepoetin Canelo (ARANESP for DIALYSIS PTS) 60 mcg WEEKLYHS 02/05/19 21:00 02/05/19 21:17 60 MCG Diphenhydramine HCl (Benadryl) 25 mg 1X PRN PRN 02/06/19 08:30 02/07/19 08:29 Fentanyl Citrate (Fentanyl 2ml Vial) 50 mcg PRN Q2HR PRN 02/04/19 22:00 Furosemide (Lasix) 40 mg DAILY 02/05/19 09:00 02/06/19 13:40 40 MG Hydroxyzine HCl (Atarax) 50 mg QMWF 02/06/19 16:00 Info (Anti-Coagulation Monitoring By Pharmacy) 1 each PRN DAILY PRN 02/04/19 22:15 02/06/19 11:04 1 EACH Info (PHARMACY MONITORING -- do not chart) 1 each PRN DAILY PRN 02/06/19 08:30 Lactobacillus Rhamnosus (Culturelle) 1 cap BID 02/06/19 21:00 Lidocaine HCl (Xylocaine-Mpf 1% 2ml Vial) 2 ml STK-MED ONCE 02/06/19 09:09 02/06/19 09:10 DC Metoprolol Succinate (Toprol Xl) 25 mg DAILY 02/05/19 09:00 02/06/19 13:40 25 MG Metronidazole (Flagyl) 500 mg Q12HR 02/05/19 09:00 02/06/19 13:39 500 MG Ondansetron HCl (Zofran) 4 mg PRN Q6HRS PRN 02/04/19 22:00 02/06/19 08:33 4 MG Sodium Chloride 1,000 ml @ 400 mls/hr Q2H30M PRN 02/06/19 08:27 02/06/19 20:26 Temazepam (Restoril) 7.5 mg PRN QHS PRN 02/05/19 08:30 Vitamin B Complex/ Vitamin C (Marina-Jayme) 1 tab DAILY 02/05/19 09:00 02/06/19 13:39 1 TAB Lab Laboratory Tests Test 02/05/19 16:37 02/05/19 21:52 02/06/19 07:17 02/06/19 13:40 Glucose (Fingerstick) 92 mg/dL (70-99) 175 mg/dL (70-99) 101 mg/dL (70-99) 161 mg/dL (70-99) Results All relevant outside records, renal labs, imaging studies, telemetry/EKG's were reviewed. DESIREE MELARA MD Feb 06, 2019 14:32
[2019-02-06 15:13] VITALS: BP 142/55
[2019-02-06] MEDS: hydrOXYzine 25 MG TABLET PO SCH ×2 (16:00→16:06)
[2019-02-06] MEDS ORDERED: CIPROFLOXACIN HCL 250 MG TABLET. PO SCH (16:00)
--- NOTE | 2019-02-06 16:02 | NUR ---
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 Pt also declined HH even after encouragement. Pt has home 02. Pt denies any SW needs at this time. Discussed with RN.
--- NOTE | 2019-02-06 17:13 | PDOC2 ---
GI CONSULT Reason For Consult: Abd pain, colitis HPI: HPI: 73 y/o female admitted a couple days ago w/ n/v, abd pain, and diarrhea. N/v and diarrhea resolved. Abd pain has been present for 6 months - starts in LUQ and LLQ and spreads to the right. No aggravating or alleviating factors. Says someone just told her it was from colitis. Currently eating Cheetos, cookies, and sun chips. Thinks she'll go home tomorrow. Denies reflux/heartburn, dysphagia, hematemesis, hematochezia, and melena. Alternating bowel habits for years, sometimes hard stools and sometimes "leaks." Reports decreased appetite over time w/ 80 pound weight loss in 2 years. EGD in 06/[address] Cruz for melena, chronic anemia, and +Hemoccult: Grade A esophagitis, small hiatal hernia, non-specific pre-pyloric erythema (neg for H. pylori), and normal duodenum (random biopsy negative). No previous colonoscopy. No GB, liver, pancreas, or PUD history. On Eliquis and ASA. Per nurse - no n/v, no diarrhea, abd cramps before dialysis today that resolved, also denies any pain yesterday. PMH: PMH: CAD w/ stent, NICM, CHF, HTN, HLD, pulm HTN, A Fib, asthma, COPD, pneumonia, PENNY, ESRD on HD, DM, PVD w/ stent appendectomy, left rotator cuff repair, kyphoplasty, AAA repair FH: Family History: No pertinent hx Social History: Smoke: No ALCOHOL: none Drugs: None ROS: GEN: Denies fevers, chills, sweats HEENT: Denies blurred vision, sore throat CV: Denies chest pain RESP: Denies shortness of air, cough GI: Per HPI : Denies hematuria, dysuria ENDO: Denies weight changes NEURO: Denies confusion, dizziness MSK: Denies weakness, joint pain/swelling SKIN: Denies jaundice, pruritus Vitals: Vitals: Vital Signs Date Time Temp Pulse Resp B/P (MAP) Pulse Ox O2 Delivery O2 Flow Rate FiO2 02/06/19 15:34 100 Nasal Cannula 3.0 02/06/19 15:13 98.4 87 20 142/55 (84) 98.4 Labs: Labs: Laboratory Tests Test 02/05/19 21:52 02/06/19 07:17 02/06/19 13:40 02/06/19 16:22 Glucose (Fingerstick) 175 mg/dL (70-99) 101 mg/dL (70-99) 161 mg/dL (70-99) 243 mg/dL (70-99) Allergies: Coded Allergies: Iodinated Contrast Media (Verified Allergy, Intermediate, 11/06/17) Medications: Current Medications Medications (Trade) Dose Ordered Sig/Eric Route PRN Reason Start Time Stop Time Status Last Admin Dose Admin Darbepoetin Canelo (ARANESP for DIALYSIS PTS) 60 mcg WEEKLYHS SQ 02/05/19 21:00 02/05/19 21:17 Amoxicillin/ Clavulanate Potassium (Augmentin 500/ 125mg) 1 tab DAILY PO 02/06/19 09:00 02/06/19 13:39 Apixaban (Eliquis) 5 mg BID PO 02/05/19 21:00 02/06/19 13:40 Imaging: Imagin/28 Abd/Pelv US Impression: 1. Elevated celiac artery velocity, indicating stenosis. Head CT IMPRESSION: Chronic changes without acute intracranial abnormality. CT A/P IMPRESSION: 1. Mild wall thickening at the ascending colon, may relate to a focal colitis. 2. No renal or ureteral calculi. No evidence for obstructive uropathy. 3. Aortobiiliac stent graft, with aorta demonstrating similar configuration when compared to the prior study. PE: GEN: NAD, eating HEENT: Atraumatic, PERRL LUNGS: NC 3L HEART: RRR ABD: NABS, S/ND, vaguely tender throughout, mostly to left EXTREMITY: No edema SKIN: No rashes, no jaundice NEURO/PSYCH: A & O 3 A/P: A/P: Upper and lower left-sided abd pain x 6 months N/v, diarrhea - resolved Decreased appetite, weight loss Abnormal abd imaging - ?celiac stenosis, mild wall thickening in ascending colon CRC screen - none Diverticulosis Chronic anemia - iron deficient in 2016 ESRD on HD, CHF, CAD, PAD, mildly elevated troponin - on Eliquis and ASA, also amiodarone -- Will review imaging w/ Dr. Cruz. Chronic abd pain. No longer having diarrhea or n/v. No problems eating though reports decreased appetite and weight loss over time. H/o mild reflux on EGD - she doesn't take medication because she says doesn't have symptoms. "Colitis" present on CTs earlier this year and in 2017. Needs outpt screening colonoscopy. CHRISTIAN VU Feb 06, 2019 17:13
[2019-02-06 19:35] VITALS: BP 125/47
[2019-02-06] MEDS: LACTOBACILLUS RHAMNOSUS GG 1 CAPSULE. PO SCH (21:13)
[2019-02-06] MEDS: ATORVASTATIN CALCIUM 40 MG TABLET. PO SCH (21:14)
[2019-02-06 23:12] VITALS: BP 137/48
[2019-02-07 03:26] VITALS: BP 144/48
[2019-02-07 05:52] LABS: BASO % 1 % (0-3); EOS # 0.2 x10^3/uL (0.0-0.7); EOS % 4 % (0-3); HEMATOCRIT 26.3 % (36.0-47.0); HEMOGLOBIN 8.4 g/dL (12.0-15.5); LYMPH # 0.6 x10^3/uL (1.0-4.8); LYMPH % 13 % (24-48); MEAN CORPUSCULAR HEMOGLOBIN 33 pg (25-35); MEAN CORPUSCULAR HGB CONC 32 g/dL (31-37); MEAN CORPUSCULAR VOLUME 102 fL (79-100); MONO # 0.7 x10^3/uL (0.0-1.1); MONO % 15 % (0-9); NEUT # 3.2 x10^3/uL (1.8-7.7); NEUT % 68 % (31-73); PLATELET COUNT 236 x10^3/uL (140-400); RED BLOOD COUNT 2.58 x10^6/uL (3.50-5.40); RED CELL DISTRIBUTION WIDTH 16.7 % (11.5-14.5); WHITE BLOOD COUNT 4.7 x10^3/uL (4.0-11.0)
[2019-02-07 06:20] LABS: ALBUMIN 2.3 g/dL (3.4-5.0); ALBUMIN/GLOBULIN RATIO 0.8 (1.0-1.7); CALCIUM 7.7 mg/dL (8.5-10.1); CREATININE 4.2 mg/dL (0.6-1.0); GFR 12.5; POTASSIUM 4.4 mmol/L (3.5-5.1); TOTAL BILIRUBIN 0.4 mg/dL (0.2-1.0); TOTAL PROTEIN 5.2 g/dL (6.4-8.2)
[2019-02-07 07:15] VITALS: BP 141/50
[2019-02-07] MEDS ORDERED: PANTOPRAZOLE 40 MG TABLET.DR. PO SCH (08:30)
[2019-02-07] MEDS: BUDESONIDE 0.5 MG/2 ML NEBU. NEB SCH (08:55)
[2019-02-07] MEDS: ALBUTEROL SULFATE 2.5 MG/3 ML NEBU. NEB SCH ×3 (08:55→15:09)
[2019-02-07] MEDS: APIXABAN 5 MG TABLET. PO SCH (08:59)
[2019-02-07] MEDS: METOPROLOL SUCC 24HR ER 25 MG TAB.ER.24H. PO SCH (08:59)
[2019-02-07] MEDS: ASPIRIN CHEWABLE 81 MG TABLET. PO SCH (08:59)
[2019-02-07] MEDS: LACTOBACILLUS RHAMNOSUS GG 1 CAPSULE. PO SCH (08:59)
[2019-02-07] MEDS: metroNIDAZOLE 500 MG TABLET PO SCH (08:59)
[2019-02-07] MEDS: FOLIC/VIT B COMP W-C (RENAL) TABLET. PO SCH (08:59)
[2019-02-07] MEDS: FUROSEMIDE 40 MG TABLET. PO SCH (08:59)
[2019-02-07] MEDS: AMOXICILLIN/K CLAV 500/125MG TABLET. PO SCH (08:59)
[2019-02-07] MEDS: AMIODARONE HCL 200 MG TABLET. PO SCH (09:00)
[2019-02-07 10:51] VITALS: BP 159/53
--- NOTE | 2019-02-07 11:00 | PDOC ---
PROGRESS NOTES Chief Complaint Chief Complaint IMPRESSION COLITIS , ascending colon by CT Abd pain, consulted GI Mild wall thickening at the ascending colon, may relate to a focal colitis. No renal or ureteral calculi. No evidence for obstructive uropathy. Aortobiiliac stent graft, with aorta demonstrating similar configuration when c ompared to the prior study. ESRD on HD MWF AOCD Severe CARDIOMYOPATHY with LIFE VEST (nov 2018) Septal motion consistent with conduction abnormality. There is moderate to severe concentric left ventricular hypertrophy. Doppler and Color Flow revealed moderate to severe eccentric tricuspid regurgitation. There is severe pulmonary hypertension. The PA pressure was estimated at 87 mmHg. Prior L1 fracture s/p kyphoplasty 01/21 - pain control Coronary artery disease - stable Chronic congestive heart failure s/p lifevest - awaiting AICD placement Arrhythmias - on Chronic anticoagulation Hyperlipidemia - on statin Moderate protein calorie malnutrition - supplements DM2 - mostly diet controlled, last A1c was 6 02-07, bladder cramping, try B&O supp. home today with home health 34 MIN PT EXAM, CHART REVIEW d/c planning time, > 50% OF TIME SPENT WITH EXAM, CHART REVIEW, PT CARE COORDINATION History of Present Illness History of Present Illness some mild abd pain, but tolerating PO well :Life vest she wears, placed nov 2018 by our group - told to wear for 6 mos PLAn: START PO abx for colitis - renal dosing Add pT OT HD per renal Cards consult, ff up COnt OAC D/C PLANNING 33 MIN Vitals Vitals Vital Signs Date Time Temp Pulse Resp B/P (MAP) Pulse Ox O2 Delivery O2 Flow Rate FiO2 02/07/19 10:51 98.6 64 18 159/53 (88) 95 Nasal Cannula 3.0 98.6 Physical Exam General: Alert, Oriented X3, Cooperative, No acute distress Heart: Regular rate Lungs: Clear Abdomen: Normal bowel sounds, Soft, No hepatosplenomegaly, Other (Slight RUQ tender) Extremities: No clubbing, No cyanosis, No edema, Normal pulses, No tenderness/swelling Skin: No rashes, No breakdown, No significant lesion Labs LABS Laboratory Tests Test 02/06/19 13:40 02/06/19 16:22 02/06/19 20:08 02/07/19 03:17 Glucose (Fingerstick) 161 mg/dL (70-99) 243 mg/dL (70-99) 166 mg/dL (70-99) White Blood Count 4.7 x10^3/uL (4.0-11.0) Red Blood Count 2.58 x10^6/uL (3.50-5.40) Hemoglobin 8.4 g/dL (12.0-15.5) Hematocrit 26.3 % (36.0-47.0) Mean Corpuscular Volume 102 fL (79-100) Mean Corpuscular Hemoglobin 33 pg (25-35) Mean Corpuscular Hemoglobin Concent 32 g/dL (31-37) Red Cell Distribution Width 16.7 % (11.5-14.5) Platelet Count 236 x10^3/uL (140-400) Neutrophils (%) (Auto) 68 % (31-73) Lymphocytes (%) (Auto) 13 % (24-48) Monocytes (%) (Auto) 15 % (0-9) Eosinophils (%) (Auto) 4 % (0-3) Basophils (%) (Auto) 1 % (0-3) Neutrophils # (Auto) 3.2 x10^3/uL (1.8-7.7) Lymphocytes # (Auto) 0.6 x10^3/uL (1.0-4.8) Monocytes # (Auto) 0.7 x10^3/uL (0.0-1.1) Eosinophils # (Auto) 0.2 x10^3/uL (0.0-0.7) Basophils # (Auto) 0.0 x10^3/uL (0.0-0.2) Sodium Level 145 mmol/L (136-145) Potassium Level 4.4 mmol/L (3.5-5.1) Chloride Level 106 mmol/L (98-107) Carbon Dioxide Level 32 mmol/L (21-32) Anion Gap 7 (6-14) Blood Urea Nitrogen 19 mg/dL (7-20) Creatinine 4.2 mg/dL (0.6-1.0) Estimated GFR (Cockcroft-Gault) 12.5 BUN/Creatinine Ratio 5 (6-20) Glucose Level 89 mg/dL (70-99) Calcium Level 7.7 mg/dL (8.5-10.1) Total Bilirubin 0.4 mg/dL (0.2-1.0) Aspartate Amino Transf (AST/SGOT) 18 U/L (15-37) Alanine Aminotransferase (ALT/SGPT) 6 U/L (14-59) Alkaline Phosphatase 107 U/L (46-116) Total Protein 5.2 g/dL (6.4-8.2) Albumin 2.3 g/dL (3.4-5.0) Albumin/Globulin Ratio 0.8 (1.0-1.7) Test 02/07/19 04:55 02/07/19 07:40 Glucose (Fingerstick) 76 mg/dL (70-99) 69 mg/dL (70-99) Assessment and Plan Assessmemt and Plan Problems Medical Problems: (1) Abdominal pain Status: Acute (2) Colitis Status: Acute Comment Review of Relevant I have reviewed the following items mykel (where applicable) has been applied. Labs Laboratory Tests Test 02/05/19 11:19 02/05/19 16:37 02/05/19 21:52 02/06/19 07:17 Glucose (Fingerstick) 135 mg/dL (70-99) 92 mg/dL (70-99) 175 mg/dL (70-99) 101 mg/dL (70-99) Test 02/06/19 13:40 02/06/19 16:22 02/06/19 20:08 02/07/19 03:17 Glucose (Fingerstick) 161 mg/dL (70-99) 243 mg/dL (70-99) 166 mg/dL (70-99) White Blood Count 4.7 x10^3/uL (4.0-11.0) Red Blood Count 2.58 x10^6/uL (3.50-5.40) Hemoglobin 8.4 g/dL (12.0-15.5) Hematocrit 26.3 % (36.0-47.0) Mean Corpuscular Volume 102 fL (79-100) Mean Corpuscular Hemoglobin 33 pg (25-35) Mean Corpuscular Hemoglobin Concent 32 g/dL (31-37) Red Cell Distribution Width 16.7 % (11.5-14.5) Platelet Count 236 x10^3/uL (140-400) Neutrophils (%) (Auto) 68 % (31-73) Lymphocytes (%) (Auto) 13 % (24-48) Monocytes (%) (Auto) 15 % (0-9) Eosinophils (%) (Auto) 4 % (0-3) Basophils (%) (Auto) 1 % (0-3) Neutrophils # (Auto) 3.2 x10^3/uL (1.8-7.7) Lymphocytes # (Auto) 0.6 x10^3/uL (1.0-4.8) Monocytes # (Auto) 0.7 x10^3/uL (0.0-1.1) Eosinophils # (Auto) 0.2 x10^3/uL (0.0-0.7) Basophils # (Auto) 0.0 x10^3/uL (0.0-0.2) Sodium Level 145 mmol/L (136-145) Potassium Level 4.4 mmol/L (3.5-5.1) Chloride Level 106 mmol/L (98-107) Carbon Dioxide Level 32 mmol/L (21-32) Anion Gap 7 (6-14) Blood Urea Nitrogen 19 mg/dL (7-20) Creatinine 4.2 mg/dL (0.6-1.0) Estimated GFR (Cockcroft-Gault) 12.5 BUN/Creatinine Ratio 5 (6-20) Glucose Level 89 mg/dL (70-99) Calcium Level 7.7 mg/dL (8.5-10.1) Total Bilirubin 0.4 mg/dL (0.2-1.0) Aspartate Amino Transf (AST/SGOT) 18 U/L (15-37) Alanine Aminotransferase (ALT/SGPT) 6 U/L (14-59) Alkaline Phosphatase 107 U/L (46-116) Total Protein 5.2 g/dL (6.4-8.2) Albumin 2.3 g/dL (3.4-5.0) Albumin/Globulin Ratio 0.8 (1.0-1.7) Test 02/07/19 04:55 02/07/19 07:40 Glucose (Fingerstick) 76 mg/dL (70-99) 69 mg/dL (70-99) Laboratory Tests Test 02/06/19 13:40 02/06/19 16:22 02/06/19 20:08 02/07/19 03:17 Glucose (Fingerstick) 161 mg/dL (70-99) 243 mg/dL (70-99) 166 mg/dL (70-99) White Blood Count 4.7 x10^3/uL (4.0-11.0) Red Blood Count 2.58 x10^6/uL (3.50-5.40) Hemoglobin 8.4 g/dL (12.0-15.5) Hematocrit 26.3 % (36.0-47.0) Mean Corpuscular Volume 102 fL (79-100) Mean Corpuscular Hemoglobin 33 pg (25-35) Mean Corpuscular Hemoglobin Concent 32 g/dL (31-37) Red Cell Distribution Width 16.7 % (11.5-14.5) Platelet Count 236 x10^3/uL (140-400) Neutrophils (%) (Auto) 68 % (31-73) Lymphocytes (%) (Auto) 13 % (24-48) Monocytes (%) (Auto) 15 % (0-9) Eosinophils (%) (Auto) 4 % (0-3) Basophils (%) (Auto) 1 % (0-3) Neutrophils # (Auto) 3.2 x10^3/uL (1.8-7.7) Lymphocytes # (Auto) 0.6 x10^3/uL (1.0-4.8) Monocytes # (Auto) 0.7 x10^3/uL (0.0-1.1) Eosinophils # (Auto) 0.2 x10^3/uL (0.0-0.7) Basophils # (Auto) 0.0 x10^3/uL (0.0-0.2) Sodium Level 145 mmol/L (136-145) Potassium Level 4.4 mmol/L (3.5-5.1) Chloride Level 106 mmol/L (98-107) Carbon Dioxide Level 32 mmol/L (21-32) Anion Gap 7 (6-14) Blood Urea Nitrogen 19 mg/dL (7-20) Creatinine 4.2 mg/dL (0.6-1.0) Estimated GFR (Cockcroft-Gault) 12.5 BUN/Creatinine Ratio 5 (6-20) Glucose Level 89 mg/dL (70-99) Calcium Level 7.7 mg/dL (8.5-10.1) Total Bilirubin 0.4 mg/dL (0.2-1.0) Aspartate Amino Transf (AST/SGOT) 18 U/L (15-37) Alanine Aminotransferase (ALT/SGPT) 6 U/L (14-59) Alkaline Phosphatase 107 U/L (46-116) Total Protein 5.2 g/dL (6.4-8.2) Albumin 2.3 g/dL (3.4-5.0) Albumin/Globulin Ratio 0.8 (1.0-1.7) Test 02/07/19 04:55 02/07/19 07:40 Glucose (Fingerstick) 76 mg/dL (70-99) 69 mg/dL (70-99) Medications Current Medications Albuterol Sulfate (Ventolin Neb Soln) 2.5 mg PRN Q6HRS PRN INH SHORTNESS OF BREATH; Start 02/04/19 at 22:00 Amiodarone HCl (Cordarone) 200 mg DAILY PO Last administered on 02/07/19 09:00; Start 02/05/19 at 09:00 Apixaban (Eliquis) 5 mg BID PO ; Start 02/04/19 at 23:00; Stop 02/04/19 at 22:14; Status DC Aspirin (Children'S Aspirin) 81 mg DAILY PO Last administered on 02/07/19 08:59; Start 02/05/19 at 09:00 Atorvastatin Calcium (Lipitor) 40 mg HS PO Last administered on 02/06/19at 21:14; Start 02/04/19 at 23:00 Vitamin B Complex/ Vitamin C (Marina-Jayme) 1 tab DAILY PO Last administered on 02/07/19 08:59; Start 02/05/19 at 09:00 Metoprolol Succinate (Toprol Xl) 25 mg DAILY PO Last administered on 02/07/19 08:59; Start 02/05/19 at 09:00 Budesonide (Pulmicort) 0.5 mg RTBID NEB Last administered on 02/07/19 08:55; Start 02/05/19 at 08:00 Ondansetron HCl (Zofran) 4 mg PRN Q6HRS PRN IVP NAUSEA/VOMITING 1ST CHOICE Last administered on 02/06/19 08:33; Start 02/04/19 at 22:00 Fentanyl Citrate (Fentanyl 2ml Vial) 50 mcg PRN Q2HR PRN IVP SEVERE PAIN 7-10; Start 02/04/19 at 22:00 Albuterol Sulfate (Ventolin Neb Soln) 2.5 mg RTQID NEB Last administered on 02/07/19at 08:55; Start 02/05/19 at 08:00 Info (Anti-Coagulation Monitoring By Pharmacy) 1 each PRN DAILY PRN MC SEE COMMENTS Last administered on 02/06/19at 11:04; Start 02/04/19 at 22:15 Apixaban (Eliquis) 2.5 mg BID PO Last administered on 02/05/19 09:34; Start 02/04/19 at 22:30; Stop 02/05/19 at 13:59; Status DC Acetaminophen (Tylenol) 500 mg PRN Q6HRS PRN PO MILD PAIN / TEMP Last administered on 02/06/19 18:03; Start 02/05/19 at 08:30 Acetaminophen/ Codeine Phosphate (Tylenol #3) 1 tab PRN Q6HRS PRN PO MODERATE PAIN; Start 02/05/19 at 08:30 Clonidine HCl (Catapres) 0.1 mg PRN Q1HR PRN PO HYPERTENSION; Start 02/05/19 at 08:30 Furosemide (Lasix) 40 mg DAILY PO Last administered on 02/07/19 08:59; Start 02/05/19 at 09:00 Hydroxyzine HCl (Atarax) 50 mg QMWF PO ; Start 02/06/19 at 16:00 Temazepam (Restoril) 7.5 mg PRN QHS PRN PO INSOMNIA; Start 02/05/19 at 08:30 Ciprofloxacin (Cipro) 250 mg Q24H PO ; Start 02/06/19 at 16:00; Stop 02/05/19 at 13:58; Status DC Metronidazole (Flagyl) 500 mg Q12HR PO Last administered on 02/07/19 08:59; Start 02/05/19 at 09:00 Ciprofloxacin (Cipro) 250 mg 1X ONCE PO Last administered on 02/05/19 09:34; Start 02/05/19 at 10:00; Stop 02/05/19 at 10:01; Status DC Darbepoetin Canelo (ARANESP for DIALYSIS PTS) 60 mcg WEEKLYHS SQ Last administered on 02/05/19at 21:17; Start 02/05/19 at 21:00 Amoxicillin/ Clavulanate Potassium (Augmentin 500/ 125mg) 1 tab DAILY PO Last administered on 02/07/19at 08:59; Start 02/06/19 at 09:00 Apixaban (Eliquis) 5 mg BID PO Last administered on 02/07/19at 08:59; Start 02/05/19 at 21:00 Sodium Chloride 1,000 ml @ 1,000 mls/hr Q1H PRN IV hypotension; Start 02/06/19 at 08:27; Stop 02/06/19 at 14:26; Status DC Acetaminophen (Tylenol) 500 mg 1X PRN PRN PO MILD PAIN / TEMP; Start 02/06/19 at 08:30; Stop 02/07/19 at 08:29; Status DC Diphenhydramine HCl (Benadryl) 25 mg 1X PRN PRN IV ITCHING; Start 02/06/19 at 08:30; Stop 02/07/19 at 08:29; Status DC Diphenhydramine HCl (Benadryl) 25 mg 1X PRN PRN IV ITCHING; Start 02/06/19 at 08:30; Stop 02/07/19 at 08:29; Status DC Sodium Chloride 1,000 ml @ 400 mls/hr Q2H30M PRN IV PATENCY; Start 02/06/19 at 08:27; Stop 02/06/19 at 20:26; Status DC Info (PHARMACY MONITORING -- do not chart) 1 each PRN DAILY PRN MC SEE COMMENTS; Start 02/06/19 at 08:30 Lidocaine HCl (Xylocaine-Mpf 1% 2ml Vial) 2 ml STK-MED ONCE .ROUTE ; Start 02/06/19 at 09:09; Stop 02/06/19 at 09:10; Status DC Lactobacillus Rhamnosus (Culturelle) 1 cap BID PO Last administered on 02/07/19at 08:59; Start 02/06/19 at 21:00 Pantoprazole Sodium (Protonix) 40 mg DAILYAC PO Last administered on 02/07/19at 08:59; Start 02/07/19 at 08:30 Lidocaine HCl (Xylocaine-Mpf 1% 2ml Vial) 2 ml STK-MED ONCE .ROUTE ; Start 02/06/19 at 09:00; Stop 02/07/19 at 08:47; Status DC Active Scripts Active Tylenol With Codeine #3 Tablet (Acetaminophen/Codeine Phosphate) 1 Each Tablet 1 Tab PO PRN Q6HRS PRN Amiodarone Hcl 200 Mg Tablet 200 Mg PO DAILY 30 Days Eliquis (Apixaban) 5 Mg Tablet 5 Mg PO BID MDD ` Reported Metoprolol Succinate ( Xl ) (Metoprolol Succinate) 25 Mg Tab.er.24h 1 Tab PO DAILY Aspirin 81 Mg Tab.chew 1 Tab PO DAILY Lipitor (Atorvastatin Calcium) 40 Mg Tablet 40 Mg PO HS Furosemide 40 Mg Tablet 40 Mg PO DAILY Symbicort 160-4.5 Mcg Inhaler (Budesonide/Formoterol Fumarate) 10.2 Gm Hfa.aer.ad 2 Puff IH BID Proair Hfa Inhaler (Albuterol Sulfate) 8.5 Gm Hfa.aer.ad 1 Puff INH PRN Q6HRS PRN Marina-Jayme Tablet (Folic Acid/Vitamin B Comp W-C) 0.8 Mg Tablet 0.8 Mg PO DAILY Hydroxyzine Hcl 25 Mg Tablet 50 Mg PO QMWF Vitals/I & O Vital Sign - Last 24 Hours 02/06/19 02/06/19 02/06/19 02/06/19 12:25 13:34 13:39 13:40 Temp 98.8 98.8 Pulse 90 90 90 Resp 20 B/P (MAP) 152/57 (88) 152/57 152/57 Pulse Ox 100 95 O2 Delivery Nasal Cannula Nasal Cannula O2 Flow Rate 3.0 3.0 02/06/19 02/06/19 02/06/19 02/06/19 15:13 15:34 19:20 19:35 Temp 98.4 97.8 98.4 97.8 Pulse 87 74 Resp 20 18 B/P (MAP) 142/55 (84) 125/47 (73) Pulse Ox 97 100 100 95 O2 Delivery Nasal Cannula Nasal Cannula Nasal Cannula Nasal Cannula O2 Flow Rate 3.0 3.0 3.0 3.0 02/06/19 02/06/19 02/07/19 02/07/19 20:00 23:12 03:26 07:15 Temp 99.4 97.8 98.1 99.4 97.8 98.1 Pulse 78 69 70 Resp 18 18 20 B/P (MAP) 137/48 (77) 144/48 (80) 141/50 (80) Pulse Ox 95 97 96 O2 Delivery Nasal Cannula Nasal Cannula Nasal Cannula Nasal Cannula O2 Flow Rate 3.0 3.0 3.0 3.0 02/07/19 02/07/19 02/07/19 02/07/19 08:00 08:56 08:59 09:00 Pulse 70 70 B/P (MAP) 141/50 141/50 Pulse Ox 97 O2 Delivery Nasal Cannula Nasal Cannula O2 Flow Rate 1.0 1.0 02/07/19 10:51 Temp 98.6 98.6 Pulse 64 Resp 18 B/P (MAP) 159/53 (88) Pulse Ox 95 O2 Delivery Nasal Cannula O2 Flow Rate 3.0 Intake and Output 02/06/19 02/06/19 02/07/19 15:00 23:00 07:00 Intake Total 180 ml 280 ml 210 ml Output Total 0 ml Balance 180 ml 280 ml 210 ml SUDHEER ROBLES MD Feb 07, 2019 11:00
--- NOTE | 2019-02-07 11:27 | PDOC ---
Subjective: Subjective: "Crampy" pain LUQ and LLQ. No change w/ movement, eating, or stooling. Objective: Vital Signs: Vital Signs Date Time Temp Pulse Resp B/P (MAP) Pulse Ox O2 Delivery O2 Flow Rate FiO2 02/07/19 10:51 98.6 64 18 159/53 (88) 95 Nasal Cannula 3.0 98.6 Labs: Laboratory Tests Test 02/06/19 13:40 02/06/19 16:22 02/06/19 20:08 02/07/19 04:55 Glucose (Fingerstick) 161 mg/dL (70-99) 243 mg/dL (70-99) 166 mg/dL (70-99) 76 mg/dL (70-99) Test 02/07/19 07:40 Glucose (Fingerstick) 69 mg/dL (70-99) PE: GEN: NAD, was resting LUNGS: CTAB HEART: RRR ABD: soft, suprapubic discomfort, less to LLQ, some in LUQ NEURO/PSYCH: A & O 3 A/P: Chronic abd pain N/v, diarrhea - resolved Abnormal abd imaging - "colitis" on several CTs H/o alternating bowel habits ATILIO ESRD on HD, CAD, PAD -- PPI. Outpt colonoscopy. CHRISTIAN VU Feb 07, 2019 11:27
--- NOTE | 2019-02-07 12:44 | PDOC ---
SUBJECTIVE ROS stable OBJECTIVE Vital Signs Vital Signs Date Time Temp Pulse Resp B/P (MAP) Pulse Ox O2 Delivery O2 Flow Rate FiO2 02/07/19 10:51 98.6 64 18 159/53 (88) 95 Nasal Cannula 3.0 98.6 I & 0 Intake and Output 02/07/19 07:00 Intake Total 670 ml Output Total 0 ml Balance 670 ml Intake Oral 670 ml Output Urine Total 0 ml PHYSICAL EXAM Physical Exam General: No acute distress HEENT: Mucous membr. moist/pink Lungs: Clear to auscultation, Normal air movement Heart: S1S2, murmurs Abdomen: Normal bowel sounds, Soft,Slight RUQ tender Extremities: No edema Skin: No rashes Neuro:Grossly normal No mcnulty DIAGNOSIS/ASSESSMENT Assessment & Plan ESRD- On HD MWF under Dr. Ramon's care No indication today Abdominal pain- CT abdomen/pelvis non-contrast - Mild wall thickening at the ascending colon, may relate to a focal colitis. No renal or ureteral calculi. No evidence for obstructive uropathy. Aortobiiliac stent graft, with aorta demonstrating similar configuration when compared to the prior study. N/V/D - Per Primary Anemia- GI bleed in june 2018, post EGD PARISA per protocol for Hgb <10 DM - primary managing PNENY- cant tolerate CPAP Low back pain with traumatic mechanical fall: resulting to L1 compression fracture L1 fracture s/p kyphoplasty 01/21 Known asymptomatic SB: Lower HR noted in the past associated with hyperkalemic episode. Otherwise lifevest check unrevelaing of any significant bradyarrhythmias. NICM/chronic systolic CHF: compensated EF 35% NYHA 2 PAFIB: SR/SB, lowest 50s. Hypertension; antihypertensives CAD s/p PCI/stent to the RCA: Cath earlier this year with non-obstructive CAD, clnically stable COMMENT/RELEVANT DATA Meds Current Medications Medications (Trade) Dose Ordered Sig/Eric Start Time Stop Time Status Last Admin Dose Admin Acetaminophen (Tylenol) 500 mg 1X PRN PRN 02/06/19 08:30 02/07/19 08:29 DC Acetaminophen/ Codeine Phosphate (Tylenol #3) 1 tab PRN Q6HRS PRN 02/05/19 08:30 Albuterol Sulfate (Ventolin Neb Soln) 2.5 mg RTQID 02/05/19 08:00 02/07/19 08:55 2.5 MG Amiodarone HCl (Cordarone) 200 mg DAILY 02/05/19 09:00 02/07/19 09:00 200 MG Amoxicillin/ Clavulanate Potassium (Augmentin 500/ 125mg) 1 tab DAILY 02/06/19 09:00 02/07/19 08:59 1 TAB Apixaban (Eliquis) 5 mg BID 02/05/19 21:00 02/07/19 08:59 5 MG Aspirin (Children'S Aspirin) 81 mg DAILY 02/05/19 09:00 02/07/19 08:59 81 MG Atorvastatin Calcium (Lipitor) 40 mg HS 02/04/19 23:00 02/06/19 21:14 40 MG Belladonna Alkaloids/Opium (B & O) 1 supp PRN Q12HR PRN 02/07/19 12:45 Budesonide (Pulmicort) 0.5 mg RTBID 02/05/19 08:00 02/07/19 08:55 0.5 MG Ciprofloxacin (Cipro) 250 mg 1X ONCE 02/05/19 10:00 02/05/19 10:01 DC 02/05/19 09:34 250 MG Clonidine HCl (Catapres) 0.1 mg PRN Q1HR PRN 02/05/19 08:30 Darbepoetin Canelo (ARANESP for DIALYSIS PTS) 60 mcg WEEKLYHS 02/05/19 21:00 02/05/19 21:17 60 MCG Diphenhydramine HCl (Benadryl) 25 mg 1X PRN PRN 02/06/19 08:30 02/07/19 08:29 DC Fentanyl Citrate (Fentanyl 2ml Vial) 50 mcg PRN Q2HR PRN 02/04/19 22:00 Furosemide (Lasix) 40 mg DAILY 02/05/19 09:00 02/07/19 08:59 40 MG Hydroxyzine HCl (Atarax) 50 mg QMWF 02/06/19 16:00 Info (Anti-Coagulation Monitoring By Pharmacy) 1 each PRN DAILY PRN 02/04/19 22:15 02/06/19 11:04 1 EACH Info (PHARMACY MONITORING -- do not chart) 1 each PRN DAILY PRN 02/06/19 08:30 Lactobacillus Rhamnosus (Culturelle) 1 cap BID 02/06/19 21:00 02/07/19 08:59 1 CAP Lidocaine HCl (Xylocaine-Mpf 1% 2ml Vial) 2 ml STK-MED ONCE 02/06/19 09:00 02/07/19 08:47 DC Metoprolol Succinate (Toprol Xl) 25 mg DAILY 02/05/19 09:00 02/07/19 08:59 25 MG Metronidazole (Flagyl) 500 mg Q12HR 02/05/19 09:00 02/07/19 08:59 500 MG Ondansetron HCl (Zofran) 4 mg PRN Q6HRS PRN 02/04/19 22:00 02/06/19 08:33 4 MG Pantoprazole Sodium (Protonix) 40 mg DAILYAC 02/07/19 08:30 02/07/19 08:59 40 MG Sodium Chloride 1,000 ml @ 400 mls/hr Q2H30M PRN 02/06/19 08:27 02/06/19 20:26 DC Temazepam (Restoril) 7.5 mg PRN QHS PRN 02/05/19 08:30 Vitamin B Complex/ Vitamin C (Marina-Jayme) 1 tab DAILY 02/05/19 09:00 02/07/19 08:59 1 TAB Lab Laboratory Tests Test 02/06/19 13:40 02/06/19 16:22 02/06/19 20:08 02/07/19 03:17 Glucose (Fingerstick) 161 mg/dL (70-99) 243 mg/dL (70-99) 166 mg/dL (70-99) White Blood Count 4.7 x10^3/uL (4.0-11.0) Red Blood Count 2.58 x10^6/uL (3.50-5.40) Hemoglobin 8.4 g/dL (12.0-15.5) Hematocrit 26.3 % (36.0-47.0) Mean Corpuscular Volume 102 fL (79-100) Mean Corpuscular Hemoglobin 33 pg (25-35) Mean Corpuscular Hemoglobin Concent 32 g/dL (31-37) Red Cell Distribution Width 16.7 % (11.5-14.5) Platelet Count 236 x10^3/uL (140-400) Neutrophils (%) (Auto) 68 % (31-73) Lymphocytes (%) (Auto) 13 % (24-48) Monocytes (%) (Auto) 15 % (0-9) Eosinophils (%) (Auto) 4 % (0-3) Basophils (%) (Auto) 1 % (0-3) Neutrophils # (Auto) 3.2 x10^3/uL (1.8-7.7) Lymphocytes # (Auto) 0.6 x10^3/uL (1.0-4.8) Monocytes # (Auto) 0.7 x10^3/uL (0.0-1.1) Eosinophils # (Auto) 0.2 x10^3/uL (0.0-0.7) Basophils # (Auto) 0.0 x10^3/uL (0.0-0.2) Sodium Level 145 mmol/L (136-145) Potassium Level 4.4 mmol/L (3.5-5.1) Chloride Level 106 mmol/L (98-107) Carbon Dioxide Level 32 mmol/L (21-32) Anion Gap 7 (6-14) Blood Urea Nitrogen 19 mg/dL (7-20) Creatinine 4.2 mg/dL (0.6-1.0) Estimated GFR (Cockcroft-Gault) 12.5 BUN/Creatinine Ratio 5 (6-20) Glucose Level 89 mg/dL (70-99) Calcium Level 7.7 mg/dL (8.5-10.1) Total Bilirubin 0.4 mg/dL (0.2-1.0) Aspartate Amino Transf (AST/SGOT) 18 U/L (15-37) Alanine Aminotransferase (ALT/SGPT) 6 U/L (14-59) Alkaline Phosphatase 107 U/L (46-116) Total Protein 5.2 g/dL (6.4-8.2) Albumin 2.3 g/dL (3.4-5.0) Albumin/Globulin Ratio 0.8 (1.0-1.7) Test 02/07/19 04:55 02/07/19 07:40 02/07/19 11:30 Glucose (Fingerstick) 76 mg/dL (70-99) 69 mg/dL (70-99) 99 mg/dL (70-99) Results All relevant outside records, renal labs, imaging studies, telemetry/EKG's were reviewed. DESIREE MELARA MD Feb 07, 2019 12:43
[2019-02-07] MEDS ORDERED: OPIUM/BELLADONNA 30/16.2MG SUPP.RECT. PR PRN (12:45)
[2019-02-07 15:02] VITALS: BP 148/50
--- NOTE | 2019-02-07 15:39 | PDOC3 ---
Discharge Summary Date of Admission: Feb 04, 2019 Date of Discharge: Feb 07, 2019 Follow-Up: 1-2 days Admitting Diagnosis comment: discharge dx COLITIS , ascending colon by CT Abd pain, consulted GI Mild wall thickening at the ascending colon, may relate to a focal colitis. No renal or ureteral calculi. No evidence for obstructive uropathy. Aortobiiliac stent graft, with aorta demonstrating similar configuration when compared to the prior study. ESRD on HD MWF AOCD Severe CARDIOMYOPATHY with LIFE VEST (nov 2018) Septal motion consistent with conduction abnormality. There is moderate to severe concentric left ventricular hypertrophy. Doppler and Color Flow revealed moderate to severe eccentric tricuspid regurgitation. There is severe pulmonary hypertension. The PA pressure was estimated at 87 mmHg. Prior L1 fracture s/p kyphoplasty 01/21 - pain control Coronary artery disease - stable Chronic congestive heart failure s/p lifevest - awaiting AICD placement Arrhythmias - on Chronic anticoagulation Hyperlipidemia - on statin Moderate protein calorie malnutrition - supplements DM2 - mostly diet controlled, last A1c was 6 02-07, bladder cramping, try B&O supp. home today with home health 34 MIN PT EXAM, CHART REVIEW d/c planning time, > 50% OF TIME SPENT WITH EXAM, CHART REVIEW, PT CARE COORDINATION History of Present Illness History of Present Illness some mild abd pain, but tolerating PO well :Life vest she wears, placed nov 2018 by our group - told to wear for 6 mos PLAn: START PO abx for colitis - renal dosing Add pT OT HD per renal Cards consult, ff up COnt OAC D/C PLANNING 33 MIN Vitals Vitals Vital Signs Date Time Temp Pulse Resp B/P (MAP) Pulse Ox O2 Delivery O2 Flow Rate FiO2 02/07/19 10:51 98.6 64 18 159/53 (88) 95 Nasal Cannula 3.0 98.6 Physical Exam General: Alert, Oriented X3, Cooperative, No acute distress Heart: Regular rate Lungs: Clear Abdomen: Normal bowel sounds, Soft, No hepatosplenomegaly, Other (Slight RUQ tender) Extremities: No clubbing, No cyanosis, No edema, Normal pulses, No ten derness/swelling Skin: No rashes, No breakdown, No significant lesion FINAL DIAGNOSIS Problems Medical Problems: (1) Abdominal pain Status: Acute (2) Colitis Status: Acute Brief Hospital Course Ms. Banks is a 73 old [sex] who presented with [ colitis, acute] CONDITION AT DISCHARGE: Improved Discharge Medications Current Medications Albuterol Sulfate (Ventolin Neb Soln) 2.5 mg PRN Q6HRS PRN INH SHORTNESS OF BREATH; Start 02/04/19 at 22:00 Amiodarone HCl (Cordarone) 200 mg DAILY PO Last administered on 02/07/19 09:0 0; Start 02/05/19 at 09:00 Apixaban (Eliquis) 5 mg BID PO ; Start 02/04/19 at 23:00; Stop 02/04/19 at 22:14; Status DC Aspirin (Children'S Aspirin) 81 mg DAILY PO Last administered on 02/07/19 08:59; Start 02/05/19 at 09:00 Atorvastatin Calcium (Lipitor) 40 mg HS PO Last administered on 02/06/19 21:14; Start 02/04/19 at 23:00 Vitamin B Complex/ Vitamin C (Marina-Jayme) 1 tab DAILY PO Last administered on 02/07/19 08:59; Start 02/05/19 at 09:00 Metoprolol Succinate (Toprol Xl) 25 mg DAILY PO Last administered on 02/07/19 08:59; Start 02/05/19 at 09:00 Budesonide (Pulmicort) 0.5 mg RTBID NEB Last administered on 02/07/19 08:55; Start 02/05/19 at 08:00 Ondansetron HCl (Zofran) 4 mg PRN Q6HRS PRN IVP NAUSEA/VOMITING 1ST CHOICE Last administered on 02/06/19 08:33; Start 02/04/19 at 22:00 Fentanyl Citrate (Fentanyl 2ml Vial) 50 mcg PRN Q2HR PRN IVP SEVERE PAIN 7-10; Start 02/04/19 at 22:00 Albuterol Sulfate (Ventolin Neb Soln) 2.5 mg RTQID NEB Last administered on 02/07/19 15:09; Start 02/05/19 at 08:00 Info (Anti-Coagulation Monitoring By Pharmacy) 1 each PRN DAILY PRN MC SEE COMMENTS Last administered on 02/06/19 11:04; Start 02/04/19 at 22:15 Apixaban (Eliquis) 2.5 mg BID PO Last administered on 02/05/19 09:34; Start 02/04/19 at 22:30; Stop 02/05/19 at 13:59; Status DC Acetaminophen (Tylenol) 500 mg PRN Q6HRS PRN PO MILD PAIN / TEMP Last administe red on 02/06/19at 18:03; Start 02/05/19 at 08:30 Acetaminophen/ Codeine Phosphate (Tylenol #3) 1 tab PRN Q6HRS PRN PO MODERATE PAIN; Start 02/05/19 at 08:30 Clonidine HCl (Catapres) 0.1 mg PRN Q1HR PRN PO HYPERTENSION; Start 02/05/19 at 08:30 Furosemide (Lasix) 40 mg DAILY PO Last administered on 02/07/19 08:59; Start 02/05/19 at 09:00 Hydroxyzine HCl (Atarax) 50 mg QMWF PO ; Start 02/06/19 at 16:00 Temazepam (Restoril) 7.5 mg PRN QHS PRN PO INSOMNIA; Start 02/05/19 at 08:30 Ciprofloxacin (Cipro) 250 mg Q24H PO ; Start 02/06/19 at 16:00; Stop 02/05/19 at 13:58; Status DC Metronidazole (Flagyl) 500 mg Q12HR PO Last administered on 02/07/19 08:59; Start 02/05/19 at 09:00 Ciprofloxacin (Cipro) 250 mg 1X ONCE PO Last administered on 02/05/19 09:34; Start 02/05/19 at 10:00; Stop 02/05/19 at 10:01; Status DC Darbepoetin Canelo (ARANESP for DIALYSIS PTS) 60 mcg WEEKLYHS SQ Last administered on 02/05/19at 21:17; Start 02/05/19 at 21:00 Amoxicillin/ Clavulanate Potassium (Augmentin 500/ 125mg) 1 tab DAILY PO Last administered on 02/07/19at 08:59; Start 02/06/19 at 09:00 Apixaban (Eliquis) 5 mg BID PO Last administered on 02/07/19 08:59; Start 02/05/19 at 21:00 Sodium Chloride 1,000 ml @ 1,000 mls/hr Q1H PRN IV hypotension; Start 02/06/19 at 08:27; Stop 02/06/19 at 14:26; Status DC Acetaminophen (Tylenol) 500 mg 1X PRN PRN PO MILD PAIN / TEMP; Start 02/06/19 at 08:30; Stop 02/07/19 at 08:29; Status DC Diphenhydramine HCl (Benadryl) 25 mg 1X PRN PRN IV ITCHING; Start 02/06/19 at 08:30; Stop 02/07/19 at 08:29; Status DC Diphenhydramine HCl (Benadryl) 25 mg 1X PRN PRN IV ITCHING; Start 02/06/19 at 08:30; Stop 02/07/19 at 08:29; Status DC Sodium Chloride 1,000 ml @ 400 mls/hr Q2H30M PRN IV PATENCY; Start 02/06/19 at 08:27; Stop 02/06/19 at 20:26; Status DC Info (PHARMACY MONITORING -- do not chart) 1 each PRN DAILY PRN MC SEE COMMENTS; Start 02/06/19 at 08:30 Lidocaine HCl (Xylocaine-Mpf 1% 2ml Vial) 2 ml STK-MED ONCE .ROUTE ; Start 02/06/19 at 09:09; Stop 02/06/19 at 09:10; Status DC Lactobacillus Rhamnosus (Culturelle) 1 cap BID PO Last administered on 02/07/19at 08:59; Start 02/06/19 at 21:00 Pantoprazole Sodium (Protonix) 40 mg DAILYAC PO Last administered on 02/07/19at 08:59; Start 02/07/19 at 08:30 Lidocaine HCl (Xylocaine-Mpf 1% 2ml Vial) 2 ml STK-MED ONCE .ROUTE ; Start 02/06/19 at 09:00; Stop 02/07/19 at 08:47; Status DC Belladonna Alkaloids/Opium (B & O) 1 supp PRN Q12HR PRN SD BLADDER SPASM/lower abd pain; Start 02/07/19 at 12:45 Active Scripts Active Tylenol With Codeine #3 Tablet (Acetaminophen/Codeine Phosphate) 1 Each Tablet 1 Tab PO PRN Q6HRS PRN Amiodarone Hcl 200 Mg Tablet 200 Mg PO DAILY 30 Days Eliquis (Apixaban) 5 Mg Tablet 5 Mg PO BID MDD ` Reported Metoprolol Succinate ( Xl ) (Metoprolol Succinate) 25 Mg Tab.er.24h 1 Tab PO DAILY Aspirin 81 Mg Tab.chew 1 Tab PO DAILY Lipitor (Atorvastatin Calcium) 40 Mg Tablet 40 Mg PO HS Furosemide 40 Mg Tablet 40 Mg PO DAILY Symbicort 160-4.5 Mcg Inhaler (Budesonide/Formoterol Fumarate) 10.2 Gm Hfa.aer.ad 2 Puff IH BID Proair Hfa Inhaler (Albuterol Sulfate) 8.5 Gm Hfa.aer.ad 1 Puff INH PRN Q6HRS PRN Marina-Jayme Tablet (Folic Acid/Vitamin B Comp W-C) 0.8 Mg Tablet 0.8 Mg PO DAILY Hydroxyzine Hcl 25 Mg Tablet 50 Mg PO QMWF Vital Signs Vital Signs Date Time Temp Pulse Resp B/P (MAP) Pulse Ox O2 Delivery O2 Flow Rate FiO2 02/07/19 15:11 98 Nasal Cannula 1.0 02/07/19 15:02 98.2 79 18 148/50 (82) 98.2 Labs Laboratory Tests Test 02/05/19 16:37 02/05/19 21:52 02/06/19 07:17 02/06/19 13:40 Glucose (Fingerstick) 92 mg/dL (70-99) 175 mg/dL (70-99) 101 mg/dL (70-99) 161 mg/dL (70-99) Test 02/06/19 16:22 02/06/19 20:08 02/07/19 03:17 02/07/19 04:55 Glucose (Fingerstick) 243 mg/dL (70-99) 166 mg/dL (70-99) 76 mg/dL (70-99) White Blood Count 4.7 x10^3/uL (4.0-11.0) Red Blood Count 2.58 x10^6/uL (3.50-5.40) Hemoglobin 8.4 g/dL (12.0-15.5) Hematocrit 26.3 % (36.0-47.0) Mean Corpuscular Volume 102 fL (79-100) Mean Corpuscular Hemoglobin 33 pg (25-35) Mean Corpuscular Hemoglobin Concent 32 g/dL (31-37) Red Cell Distribution Width 16.7 % (11.5-14.5) Platelet Count 236 x10^3/uL (140-400) Neutrophils (%) (Auto) 68 % (31-73) Lymphocytes (%) (Auto) 13 % (24-48) Monocytes (%) (Auto) 15 % (0-9) Eosinophils (%) (Auto) 4 % (0-3) Basophils (%) (Auto) 1 % (0-3) Neutrophils # (Auto) 3.2 x10^3/uL (1.8-7.7) Lymphocytes # (Auto) 0.6 x10^3/uL (1.0-4.8) Monocytes # (Auto) 0.7 x10^3/uL (0.0-1.1) Eosinophils # (Auto) 0.2 x10^3/uL (0.0-0.7) Basophils # (Auto) 0.0 x10^3/uL (0.0-0.2) Sodium Level 145 mmol/L (136-145) Potassium Level 4.4 mmol/L (3.5-5.1) Chloride Level 106 mmol/L (98-107) Carbon Dioxide Level 32 mmol/L (21-32) Anion Gap 7 (6-14) Blood Urea Nitrogen 19 mg/dL (7-20) Creatinine 4.2 mg/dL (0.6-1.0) Estimated GFR (Cockcroft-Gault) 12.5 BUN/Creatinine Ratio 5 (6-20) Glucose Level 89 mg/dL (70-99) Calcium Level 7.7 mg/dL (8.5-10.1) Total Bilirubin 0.4 mg/dL (0.2-1.0) Aspartate Amino Transf (AST/SGOT) 18 U/L (15-37) Alanine Aminotransferase (ALT/SGPT) 6 U/L (14-59) Alkaline Phosphatase 107 U/L (46-116) Total Protein 5.2 g/dL (6.4-8.2) Albumin 2.3 g/dL (3.4-5.0) Albumin/Globulin Ratio 0.8 (1.0-1.7) Test 02/07/19 07:40 02/07/19 11:30 Glucose (Fingerstick) 69 mg/dL (70-99) 99 mg/dL (70-99) Laboratory Tests Test 02/06/19 16:22 10/30/19 20:08 02/07/19 03:17 02/07/19 04:55 Glucose (Fingerstick) 243 mg/dL (70-99) 166 mg/dL (70-99) 76 mg/dL (70-99) White Blood Count 4.7 x10^3/uL (4.0-11.0) Red Blood Count 2.58 x10^6/uL (3.50-5.40) Hemoglobin 8.4 g/dL (12.0-15.5) Hematocrit 26.3 % (36.0-47.0) Mean Corpuscular Volume 102 fL (79-100) Mean Corpuscular Hemoglobin 33 pg (25-35) Mean Corpuscular Hemoglobin Concent 32 g/dL (31-37) Red Cell Distribution Width 16.7 % (11.5-14.5) Platelet Count 236 x10^3/uL (140-400) Neutrophils (%) (Auto) 68 % (31-73) Lymphocytes (%) (Auto) 13 % (24-48) Monocytes (%) (Auto) 15 % (0-9) Eosinophils (%) (Auto) 4 % (0-3) Basophils (%) (Auto) 1 % (0-3) Neutrophils # (Auto) 3.2 x10^3/uL (1.8-7.7) Lymphocytes # (Auto) 0.6 x10^3/uL (1.0-4.8) Monocytes # (Auto) 0.7 x10^3/uL (0.0-1.1) Eosinophils # (Auto) 0.2 x10^3/uL (0.0-0.7) Basophils # (Auto) 0.0 x10^3/uL (0.0-0.2) Sodium Level 145 mmol/L (136-145) Potassium Level 4.4 mmol/L (3.5-5.1) Chloride Level 106 mmol/L (98-107) Carbon Dioxide Level 32 mmol/L (21-32) Anion Gap 7 (6-14) Blood Urea Nitrogen 19 mg/dL (7-20) Creatinine 4.2 mg/dL (0.6-1.0) Estimated GFR (Cockcroft-Gault) 12.5 BUN/Creatinine Ratio 5 (6-20) Glucose Level 89 mg/dL (70-99) Calcium Level 7.7 mg/dL (8.5-10.1) Total Bilirubin 0.4 mg/dL (0.2-1.0) Aspartate Amino Transf (AST/SGOT) 18 U/L (15-37) Alanine Aminotransferase (ALT/SGPT) 6 U/L (14-59) Alkaline Phosphatase 107 U/L (46-116) Total Protein 5.2 g/dL (6.4-8.2) Albumin 2.3 g/dL (3.4-5.0) Albumin/Globulin Ratio 0.8 (1.0-1.7) Test 02/07/19 07:40 02/07/19 11:30 Glucose (Fingerstick) 69 mg/dL (70-99) 99 mg/dL (70-99) Allergies Allergies Coded Allergies Type Severity Reaction Last Updated Verified Iodinated Contrast Media Allergy Intermediate 11/06/17 Yes Disposition/Orders: D/C to Home w/ HH SUDHEER ROBLES MD Feb 07, 2019 15:39
[2019-02-07] MEDS ORDERED: METR500T PO (15:43)
[2019-02-07] MEDS ORDERED: OPIU1SUP2 PR (15:43)
[2019-02-07] MEDS ORDERED: AMOX1TAB10 PO (15:43)
[2019-02-07] MEDS ORDERED: ACET500T68 PO (15:43)
[2019-02-07] MEDS ORDERED: LACT1CAP19 PO (15:43)
[2019-02-07] MEDS ORDERED: PANT40TA77 PO (15:43)
--- NOTE | 2019-02-07 15:46 | SNU/HH DC ---
DISCHARGE WITH HOME HEALTH DISCHARGE INFORMATION: Final Diagnosis: Problems Medical Problems: (1) Abdominal pain Status: Acute (2) Colitis Status: Acute Condition on Discharge: Guarded CODE STATUS: Code Status: Full HOME HEALTH: Face to Face: I certify this patient is under my care and that I, or a nurse practitioner or physician's orthopedic physician assistant working with me, had a face to face encounter that meets the physician face to face encounter requirements with this patient on []. Medical Complications: CHF Intermediate For: Medication Management RN For Eval/Treatment: Yes Physical Therapy For: Evalulation/Treatment Occupational Therapy For: Evaluation/Treatment Speech Language Pathology For: Evaluation/Treatment Home Health Aide For: Self-care [employer] SUPER[employer]OR For: Community Resources Pt Meets Homebound Status: Poor coordination w/ amb. POST DISCHARGE ORDERS: Activity Instructions for Disc: Activity as tolerated Weight Bearing Status after Di: As tolerated Bathing Instructions: Shower-keep dressing dry DIET AFTER DISCHARGE: Cardiac Wound/Incision Care: Do not change dressing, Reinforce dressing PRN CHECKS AFTER DISCHARGE: Checks after discharge: Check blood press - daily, Check blood sugar, ac/hs, Check your Temp as needed, Weigh Yourself Daily TREATMENT/EQUIPMENT ORDERS: Adaptive Equipment Issued: None Discharge Respiratory Equipmen: Oxygen CERTIFICATION STATEMENT: Certification Statement: Certification Statement: Based on the above finding, I certify that this patient is confined to the home and needs intermittent shelter care, physical therapy and/or speech therapy, or continues to need occupational therapy.~ This patient is under my care, and I have initiated the establishment of the plan of care.~ This patient will be followed by myself or a community physician who will periodically review the plan of care. Home Meds Active Scripts Lactobacillus Rhamnosus Gg (CULTURELLE) 1 Each Cap.sprink, 1 CAP PO BID for supplement for 30 Days, #60 CAP Prov:SUDHEER ROBLES MD 02/07/19 Pantoprazole Sodium (PANTOPRAZOLE SODIUM ) 40 Mg Tablet.dr, 40 MG PO DAILYAC for stomach for 30 Days, #30 TAB.SR Prov:SUDHEER ROBLES MD 02/07/19 Acetaminophen (ACETAMINOPHEN) 500 Mg Tablet, 500 MG PO PRN Q6HRS PRN for MILD PAIN / TEMP for 14 Days, #30 TAB Prov:SUDHEER ROBLES MD 02/07/19 Opium/Belladonna Alkaloids (BELLADONNA-OPIUM 16.2-30 SUPP) 1 Each Supp.rect, 1 SUPP OK PRN Q12HR PRN for BLADDER SPASM/lower abd pain for 7 Days, #20 SUPP.RECT Prov:SUDHEER ROBLES MD 02/07/19 Metronidazole (FLAGYL) 500 Mg Tablet, 500 MG PO Q12HR for colitis for 10 Days, #20 TAB Prov:SUDHEER ROBLES MD 02/07/19 Amoxicillin/Potassium Clav (AMOX TR-K CLV 500-125 MG TAB) 1 Each Tablet, 1 TAB PO DAILY for colitis for 10 Days, #10 TAB Prov:SUDHEER ROBLES MD 02/07/19 Acetaminophen With Codeine (TYLENOL WITH CODEINE #3 TABLET) 1 Each Tablet, 1 TAB PO PRN Q6HRS PRN for PAIN, #15 TAB Prov:BONIFACIO PERES MD 01/14/19 Amiodarone Hcl (AMIODARONE HCL) 200 Mg Tablet, 200 MG PO DAILY for heart for 30 Days, #30 TAB Prov:SUDHEER ROBLES MD 12/05/18 Apixaban (ELIQUIS) 5 Mg Tablet, 5 MG PO BID for afib MDD `, #60 TAB Prov:CARMELA TAYLOR MD 03/24/18 Reported Medications Metoprolol Succinate (METOPROLOL SUCCINATE ( XL )) 25 Mg Tab.er.24h, 1 TAB PO DAILY for HTN, #30 TAB 5 Refills 01/16/19 Aspirin (ASPIRIN) 81 Mg Tab.chew, 1 TAB PO DAILY for afib, #30 TAB 3 Refills 11/05/18 Atorvastatin Calcium (LIPITOR) 40 Mg Tablet, 40 MG PO HS for FOR CHOLESTEROL, #30 TAB 0 Refills 06/08/18 Furosemide (FUROSEMIDE) 40 Mg Tablet, 40 MG PO DAILY for chf, TAB 06/08/18 Budesonide/Formoterol Fumarate (SYMBICORT 160-4.5 MCG INHALER) 10.2 Gm Hfa.aer.ad, 2 PUFF IH BID for copd, #10.6 GM 3 Refills 06/08/18 Albuterol Sulfate (PROAIR HFA INHALER) 8.5 Gm Hfa.aer.ad, 1 PUFF INH PRN Q6HRS PRN for SHORTNESS OF BREATH, INHALER 0 Refills 06/08/18 Folic Acid/Vitamin B Comp W-C (RAYNA-STEVE TABLET) 0.8 Mg Tablet, 0.8 MG PO DAILY for dialysis 03/21/18 Hydroxyzine Hcl (HYDROXYZINE HCL) 25 Mg Tablet, 50 MG PO QMWF for anxiety during dialysis, #30 TAB 03/21/18 SUDHEER ROBLES MD Feb 07, 2019 15:46
[2019-02-07] MEDS: ANTI-COAG MONITOR BY PHARMACY. MC PRN (16:02)
--- NOTE | 2019-02-07 18:00 | NUR ---
Discharge Note: WANDA PRABHAKAR J6 [facility] Discharge instructions and discharge home medications reviewed with Patient and a copy given. All questions have been answered and understanding verbalized. The following instructions and handouts were given: follow up instructions, Rx for a suppository Discontinued lines and drains: 22 right hand, tip intact. patient tolerated well. Patient discharged to home with self care via family.
== END 2019-02-07 17:30 | disposition home or self-care (01) | DRG 391 ==
LOC: ER 13:58 → 6 SOUTH 17:22
PROVIDERS: ADMIT Internal Medicine; ATTEND Internal Medicine
PROC: 5A1D70Z Performance of Urinary Filtration, Intermittent, Less than 6 Hours Per Day (ICD-10-PCS; principal; 2019-02-06)
DX: K52.9 Noninfective gastroenteritis and colitis, unspecified (principal); N18.6 End stage renal disease; K55.039 Acute (reversible) ischemia of large intestine, extent unspecified; E44.0 Moderate protein-calorie malnutrition; I13.2 Hypertensive heart and chronic kidney disease with heart failure and with stage 5 chronic kidney disease, or end stage renal disease; I50.22 Chronic systolic (congestive) heart failure; I42.8 Other cardiomyopathies; E87.0 Hyperosmolality and hypernatremia; I24.8 Other forms of acute ischemic heart disease; F41.9 Anxiety disorder, unspecified; I25.10 Atherosclerotic heart disease of native coronary artery without angina pectoris; E78.00 Pure hypercholesterolemia, unspecified; E11.22 Type 2 diabetes mellitus with diabetic chronic kidney disease; E78.5 Hyperlipidemia, unspecified; I48.91 Unspecified atrial fibrillation; K21.0 Gastro-esophageal reflux disease with esophagitis; E11.51 Type 2 diabetes mellitus with diabetic peripheral angiopathy without gangrene; I48.0 Paroxysmal atrial fibrillation; G47.33 Obstructive sleep apnea (adult) (pediatric); I45.10 Unspecified right bundle-branch block; D63.8 Anemia in other chronic diseases classified elsewhere; G89.29 Other chronic pain; I27.20 Pulmonary hypertension, unspecified; I07.1 Rheumatic tricuspid insufficiency; E87.5 Hyperkalemia; K59.00 Constipation, unspecified; N32.89 Other specified disorders of bladder; Z68.24 Body mass index [BMI] 24.0-24.9, adult; Z86.79 Personal history of other diseases of the circulatory system; Z98.62 Peripheral vascular angioplasty status; I25.2 Old myocardial infarction; Z86.718 Personal history of other venous thrombosis and embolism; Z99.2 Dependence on renal dialysis; Z95.5 Presence of coronary angioplasty implant and graft; Z98.49 Cataract extraction status, unspecified eye; Z91.041 Radiographic dye allergy status; Z79.01 Long term (current) use of anticoagulants; Z83.3 Family history of diabetes mellitus; Z82.49 Family history of ischemic heart disease and other diseases of the circulatory system
CPT/HCPCS: 36415; 70450; 74176; 76770; 80053; 80069; 82553; 82607; 82962; 83690; 84484; 85025; 85610; 85651; 85730; 93005; 94640; 94760; J0882; J2405; J7613; J7626; 97110; 97116; 99285-25; G0378

== ENCOUNTER 2019-04-18 08:13 | Outpatient (CLI) | payer MEDICARE ==
[2019-04-18] VITALS (7 sets, daily range): BP systolic 150–179; BP diastolic 59–76
[~2019-04-18] VITALS: Ht 154.9 cm; Wt 57.2 kg
[~2019-04-18 08:13] MED LIST changes: +ACET500T68 PO; +AMOX1TAB10 PO; +LACT1CAP19 PO; +METR500T PO; +OPIU1SUP2 PR; +PANT40TA77 PO
[2019-04-18] MEDS ORDERED: diphenhydrAMINE HCL 25 MG CAPSULE PO ONE (09:00)
[2019-04-18] MEDS ORDERED: predniSONE 10 MG TABLET PO ONE (09:00)
[2019-04-18 09:04] LABS: BASO % 1 % (0-3); EOS # 0.1 x10^3/uL (0.0-0.7); EOS % 3 % (0-3); HEMATOCRIT 33.2 % (36.0-47.0); HEMOGLOBIN 10.3 g/dL (12.0-15.5); LYMPH # 0.5 x10^3/uL (1.0-4.8); LYMPH % 12 % (24-48); MEAN CORPUSCULAR HEMOGLOBIN 33 pg (25-35); MEAN CORPUSCULAR HGB CONC 31 g/dL (31-37); MEAN CORPUSCULAR VOLUME 105 fL (79-100); MONO # 0.3 x10^3/uL (0.0-1.1); MONO % 8 % (0-9); NEUT # 3.4 x10^3/uL (1.8-7.7); NEUT % 77 % (31-73); PLATELET COUNT 199 x10^3/uL (140-400); RED BLOOD COUNT 3.15 x10^6/uL (3.50-5.40); RED CELL DISTRIBUTION WIDTH 16.2 % (11.5-14.5); WHITE BLOOD COUNT 4.4 x10^3/uL (4.0-11.0)
[2019-04-18 09:12] LABS: CALCIUM 8.1 mg/dL (8.5-10.1); CREATININE 6.5 mg/dL (0.6-1.0); GFR 7.5; POTASSIUM 4.5 mmol/L (3.5-5.1)
[2019-04-18] MEDS ORDERED: CLOP75TA PO (09:12)
[2019-04-18] MEDS ORDERED: LISI-334 PO (09:12)
[2019-04-18] MEDS ORDERED: PRED50TA PO (09:12)
[2019-04-18 09:13] LABS: PROTHROMBIN TIME PATIENT 12.7 SEC (11.7-14.0)
[2019-04-18] MEDS ORDERED: IODIXANOL 320 MG/ML 100 ML VIAL. ONE (09:53)
[2019-04-18] MEDS ORDERED: LIDOCAINE WITH 8.4% SOD BICARB 3 ML DISP.SYRIN. ONE (09:53)
[2019-04-18] MEDS ORDERED: HEPARIN for IV BOLUS 10,000 UNIT/10 ML VIAL. ONE (09:58)
[2019-04-18] MEDS ORDERED: MIDAZOLAM HCL/PF 2 MG/2 ML VIAL. ONE (09:58)
[2019-04-18] MEDS ORDERED: fentaNYL PF VIAL 100 MCG/2 ML VIAL ONE (09:58)
[2019-04-18] MEDS ORDERED: LIDOCAINE WITH 8.4% SOD BICARB 3 ML DISP.SYRIN. IJ ONE (10:30)
[2019-04-18] MEDS ORDERED: IODIXANOL 320 MG/ML 100 ML VIAL. IART ONE (10:30)
[2019-04-18] MEDS ORDERED: MIDAZOLAM HCL/PF 2 MG/2 ML VIAL. IV ONE (10:30)
[2019-04-18] MEDS ORDERED: fentaNYL PF VIAL 100 MCG/2 ML VIAL IV ONE (10:30)
[2019-04-18] MEDS ORDERED: HEPARIN for IV BOLUS 10,000 UNIT/10 ML VIAL. IV ONE (10:45)
[2019-04-18] MEDS ORDERED: HEPARIN SODIUM 5,000 UNIT in IV NORMAL SALINE 500ML BAG 500 ML IRR ONE (11:00)
--- NOTE | 2019-04-18 12:30 | NUR ---
Discharge instructions and discharge home medications reviewed with Patient and a copy given. All questions have been answered and understanding verbalized. The following instructions and handouts were given on moderate sedation and shunt malfunction. Discontinued PIV. Patient discharged to home with self care accompanied by family.
--- NOTE | 2019-04-18 14:26 | RAD ---
04/18/2019 1.Left upper extremity AV fistulogram 2. Balloon angioplasty, proximal outflow vein stenosis Discussion: 72-year-old female with left upper extremity AV graft. Abnormal pressures. Pulsatile graft.. The risks and benefits of the procedure were discussed the patient. Informed consent was obtained. The patient was brought to fluoroscopy suite and placed in the supine position. A timeout procedure was performed. The left upper extremity was prepped and draped using sterile barrier technique. All elements of maximal sterile barrier technique including the use of a cap, mask, sterile gown, sterile gloves, large sterile sheet, appropriate hand hygiene, and 2% chlorhexidine for cutaneous antisepsis (or acceptable alternative antiseptic per current guidelines) were followed for this procedure. There is a left forearm AV graft which appears to be grossly patent by ultrasound. 1% lidocaine was administered for local anesthesia. The graft was accessed directed towards venous outflow using direct ultrasound guidance , and micropuncture technique. A fistulogram was performed demonstrating patency of the venous limb of the graft. Multifocal moderate stenoses are seen in the proximal outflow vein, essentially at the venous anastomosis. 2 small aneurysms are identified at this level. The more central outflow/brachial vein is patent. Left brachiocephalic vein is patent. The graft was compressed and angiography repeated refluxing through the arterial anastomosis which is widely patent. Minimal nonflow limiting stenosis is seen in the proximal graft. Proximal graft and arterial anastomosis are otherwise patent.. A 6 [place] vascular sheath was placed. A guidewire was advanced through the stenotic area of the outflow vein. Angioplasty was performed with a 7 mm balloon. This results in significantly improved morphology and flow through the affected vessel Wires were removed. The sheath was removed over pursestring suture. Sterile dressings were applied. No immediate complications were identified. Total fluoroscopy time: 2.6 MINUTES Dose area product: 5 Gycm2 The procedures performed under conscious sedation including continuous cardiopulmonary monitoring via dedicated sedation nurse. 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
== END 2019-04-18 12:30 | disposition home or self-care (01) ==
LOC: INTRAD 08:13
PROVIDERS: ATTEND Internal Medicine Nephrology
DX: T82.858A Stenosis of other vascular prosthetic devices, implants and grafts, initial encounter (principal); Y83.8 Other surgical procedures as the cause of abnormal reaction of the patient, or of later complication, without mention of misadventure at the time of the procedure; Y92.89 Other specified places as the place of occurrence of the external cause; Z79.01 Long term (current) use of anticoagulants
CPT/HCPCS: 36415; 36902; 76937; 80048; 85025; 85610; 99152; 99153; C1725; C1769; C1892; C1894; J1644; J2250; J3010; J7040; J7512; Q0163; Q9967

== ENCOUNTER → 2019-04-25 | Outpatient (CLI) | payer MEDICARE ==
[2019-04-18 12:15] VITALS: BP 164/59
[~2019-04-25] MED LIST changes: +PRED50TA PO
--- NOTE | 2019-04-25 17:00 | CARD ---
MR#: [id number] Date of Study: 04/25/2019 Ordering Physician: FRANK REED, Referring Physician: FRANK REED Tech: Eliza Estrella RDCS APPROVED REPORT EXAM: Two-dimensional and M-mode echocardiogram with Doppler and color Doppler. Other Information Quality : Good INDICATION Congestive Heart Failure Non-Ischemic Cardiomyopathy, Kidney Dialysis 2D DIMENSIONS RVDd3.2 (2.9-3.5cm)Left Atrium(2D)4.2 (1.6-4.0cm) IVSd1.7 (0.7-1.1cm)Aortic Root(2D)2.6 (2.0-3.7cm) LVDd5.2 (3.9-5.9cm)LVOT Diameter2.1 (1.8-2.4cm) PWd1.2 (0.7-1.1cm)LVDs3.6 (2.5-4.0cm) FS (%) 30.1 %SV72.8 ml LVEF(%)57.0 (>50%) Aortic Valve AoV Peak Vipul.158.9cm/sAoV VTI28.3cm AO Peak GR.10.1mmHgLVOT Peak Vipul.120.7cm/s AO Mean GR.6mmHgAVA (VMAX)2.61cm2 NIGHAT (VTI)2.60cm2 Mitral Valve MV E Fnjgkrbz10.7cm/sMV DECEL LASU613dk MV A Jarxvjuh920.8cm/sE/A Ratio0.7 Tricuspid Valve TR P. Vfipqkkz403hz/sRAP ZXCOZVRW3rqHb TR Peak Gr.31giBpWWWM37uxMl Pulmonary Vein S1 Gkbxlmpx00.6cm/sD2 Ikqncdxf81.2cm/s LEFT VENTRICLE The left ventricle is normal size. There is mild to moderate concentric left ventricular hypertrophy. The left ventricular systolic function is normal. The Ejection Fraction is 60%. There is normal LV s egmental wall motion. Transmitral Doppler flow pattern is Grade I-abnormal relaxation pattern. RIGHT VENTRICLE The right ventricle is normal size. The right ventricular systolic function is normal. ATRIA The left atrium is mildly dilated. The right atrium is mildly dilated. The interatrial septum is inta ct with no evidence for an atrial septal defect or patent foramen ovale as noted on 2-D or Doppler im aging. AORTIC VALVE The aortic valve is mildly thickened but opens well. Doppler and Color Flow revealed no significant a ortic regurgitation. There is no significant aortic valvular stenosis. MITRAL VALVE The mitral valve is normal in structure and function. There is no evidence of mitral valve prolapse. There is no mitral valve stenosis. Doppler and Color-flow revealed trace mitral regurgitation. TRICUSPID VALVE The tricuspid valve is normal in structure and function. Doppler and Color Flow revealed mild tricusp id regurgitation. There is moderate-severe pulmonary hypertension. The PA pressure was estimated at 6 5 mmHg. There is no tricuspid valve stenosis. PULMONIC VALVE The pulmonary valve is normal in structure and function. Doppler and Color Flow revealed trace pulmon ic valvular regurgitation. There is no pulmonic valvular stenosis. GREAT VESSELS The aortic root is normal in size. The ascending aorta is normal in size. The IVC is normal in size a nd collapses >50% with inspiration. PERICARDIAL EFFUSION There is no evidence of significant pericardial effusion. Critical Notification Critical Value: No <Conclusion> The left ventricular systolic function is normal. The Ejection Fraction is 60%. There is normal LV segmental wall motion. Transmitral Doppler flow pattern is Grade I-abnormal relaxation pattern. Trace mitral regurgitation. Mild tricuspid regurgitation. There is moderate-severe pulmonary hypertension. The PA pressure was estimated at 65 mmHg. There is no evidence of significant pericardial effusion. Signed by : Frank Reed, Electronically Approved : 04/25/2019 16:59:54
== END | disposition home or self-care (01) ==
LOC: ECHO 14:18
PROVIDERS: ATTEND Internal Medicine Cardiovascular Disease
DX: I36.1 Nonrheumatic tricuspid (valve) insufficiency (principal); I11.0 Hypertensive heart disease with heart failure; I50.32 Chronic diastolic (congestive) heart failure; I42.8 Other cardiomyopathies; I27.20 Pulmonary hypertension, unspecified
CPT/HCPCS: 93306

== ENCOUNTER 2019-07-02 19:41 | Emergency (ER) | payer MEDICARE ==
[~2019-07-02] VITALS: Ht 154.9 cm; Wt 63.0 kg
[2019-07-02] MEDS ORDERED: MORPHINE SULFATE 2 MG/ML VIAL. IV/SQ PRN (20:00)
[2019-07-02] MEDS ORDERED: ONDANSETRON PF 4 MG/2 ML VIAL. IVP ONE (20:00)
[2019-07-02 20:05] LABS: BASO % 0 % (0-3); EOS % 0 % (0-3); HEMATOCRIT 39.6 % (36.0-47.0); HEMOGLOBIN 12.1 g/dL (12.0-15.5); LYMPH # 0.4 x10^3/uL (1.0-4.8); LYMPH % 6 % (24-48); MEAN CORPUSCULAR HEMOGLOBIN 31 pg (25-35); MEAN CORPUSCULAR HGB CONC 31 g/dL (31-37); MEAN CORPUSCULAR VOLUME 103 fL (79-100); MONO # 0.4 x10^3/uL (0.0-1.1); MONO % 6 % (0-9); NEUT # 5.7 x10^3/uL (1.8-7.7); NEUT % 88 % (31-73); PLATELET COUNT 219 x10^3/uL (140-400); RED BLOOD COUNT 3.86 x10^6/uL (3.50-5.40); RED CELL DISTRIBUTION WIDTH 16.2 % (11.5-14.5); WHITE BLOOD COUNT 6.4 x10^3/uL (4.0-11.0)
[2019-07-02 20:13] LABS: CALCIUM 8.6 mg/dL (8.5-10.1); CREATININE 7.1 mg/dL (0.6-1.0); GFR 6.8
[2019-07-02] MEDS ORDERED: cloNIDine HCL 0.1 MG TABLET PO ONE (20:15)
[2019-07-02 20:21] LABS: ALBUMIN 2.9 g/dL (3.4-5.0); ALBUMIN/GLOBULIN RATIO 0.8 (1.0-1.7); TOTAL BILIRUBIN 0.5 mg/dL (0.2-1.0); TOTAL PROTEIN 6.4 g/dL (6.4-8.2)
[2019-07-02 20:24] LABS: % BANDS 2 % (0-9); % LYMPHS 6 % (24-48); % MONOS 4 % (0-10); % SEGS 88 % (35-66)
[2019-07-02 20:26] LABS: PLT ESTIMATE ADEQUATE (ADEQUATE); TOXIC GRANULATION SLIGHT
--- NOTE | 2019-07-02 21:25 | RAD ---
Exam: Chest one view INDICATION: Productive cough TECHNIQUE: Frontal view of the chest Comparisons: 06/05/2019 FINDINGS: Heart is mildly enlarged. Pulmonary vessels are within normal limits. The lung and pleural spaces are clear. IMPRESSION: No acute pulmonary process. Electronically signed by: Gabriella Beyer MD (07/02/2019 9:22 PM) [id number]
[2019-07-02] MEDS ORDERED: DIPH1TAB PO (21:33)
[2019-07-02] MEDS ORDERED: ONDA4TAB12 PO (21:33)
[2019-07-02] MEDS ORDERED: AZIT250T PO (21:33)
--- NOTE | 2019-07-02 21:34 | PHYS DOC ---
Past Medical History Past Medical History: CAD, CHF, COPD, Diabetes-Type II, DVT, High Cholesterol, Heart Disease, Hypertension, [place], Renal Disease, Renal Failure, Other Additional Past Medical Histor: dialysis MWF, O2 3LNC @ home, CPAP, abdominal aneursym, Past Surgical History: Angioplasty, Other Additional Past Surgical Histo: cardiac cath with stent placement, rotator cuff surgery,AV graft, cataract, Smoking Status: Former Smoker Alcohol Use: None Drug Use: None Adult General Chief Complaint Chief Complaint: COUGH HPI HPI Patient is a 73 year old female who presents complaining of nausea with vomiting and diarrhea as well as a productive cough that started this morning. Patient denies any fever. She denies any chest pain or shortness of breath and states that she has not been around any sick contacts. She has also had no traveling. Patient states that she has had a hard time keeping things down since the vomiting started. She complains of moderate abdominal cramping at this time.[] Review of Systems Review of Systems Constitutional: Denies fever or chills [] Respiratory: Complains of cough without shortness of breath [] Cardiovascular: No additional information not addressed in HPI [] GI: Complains of abdominal cramping with nausea, vomiting and diarrhea [] Integument: Denies rash or skin lesions [] Neurologic: Denies headache, focal weakness or sensory changes [] All other systems were reviewed and found to be within normal limits, except as documented in this note. Current Medications Current Medications Current Medications Medications (Trade) Dose Ordered Sig/Eric Start Time Stop Time Status Last Admin Dose Admin Clonidine HCl (Catapres) 0.2 mg 1X ONCE 07/02/19 20:15 07/02/19 20:16 DC 07/02/19 20:15 0.2 MG Morphine Sulfate (Morphine Sulfate) 2 mg PRN Q15MIN PRN 07/02/19 20:00 07/03/19 19:59 07/02/19 20:16 2 MG Ondansetron HCl (Zofran) 4 mg 1X ONCE 07/02/19 20:00 07/02/19 20:02 DC 07/02/19 20:15 4 MG Allergies Allergies Allergies Coded Allergies Type Severity Reaction Last Updated Verified Iodinated Contrast Media Allergy Intermediate 11/06/17 Yes Physical Exam Physical Exam Constitutional: Well developed, well nourished, no acute distress, non-toxic appearance. [] HENT: Normocephalic, atraumatic, bilateral external ears normal, oropharynx moist, no oral exudates, nose normal. [] Eyes: PERRLA, EOMI, conjunctiva normal, no discharge. [] Neck: Normal range of motion, no tenderness, supple, no stridor. [] Cardiovascular: Regular rate and rhythm[] Lungs & Thorax: Bilateral breath sounds clear to auscultation [] Abdomen: Bowel sounds normal, soft, no tenderness. [] Skin: Warm, dry, no erythema, no rash. [] Extremities: No tenderness, no cyanosis, no clubbing, ROM intact. [] Neurologic: Alert and oriented X 3, no focal deficits noted. [] Current Patient Data Vital Signs Vital Signs Date Time Temp Pulse Resp B/P (MAP) Pulse Ox O2 Delivery O2 Flow Rate FiO2 07/02/19 20:16 16 100 Nasal Cannula 07/02/19 20:15 90 224/95 07/02/19 20:00 98.6 3.0 98.6 Lab Values Laboratory Tests Test 07/02/19 20:00 White Blood Count 6.4 x10^3/uL (4.0-11.0) Red Blood Count 3.86 x10^6/uL (3.50-5.40) Hemoglobin 12.1 g/dL (12.0-15.5) Hematocrit 39.6 % (36.0-47.0) Mean Corpuscular Volume 103 fL (79-100) H Mean Corpuscular Hemoglobin 31 pg (25-35) Mean Corpuscular Hemoglobin Concent 31 g/dL (31-37) Red Cell Distribution Width 16.2 % (11.5-14.5) H Platelet Count 219 x10^3/uL (140-400) Neutrophils (%) (Auto) 88 % (31-73) H Lymphocytes (%) (Auto) 6 % (24-48) L Monocytes (%) (Auto) 6 % (0-9) Eosinophils (%) (Auto) 0 % (0-3) Basophils (%) (Auto) 0 % (0-3) Neutrophils # (Auto) 5.7 x10^3/uL (1.8-7.7) Lymphocytes # (Auto) 0.4 x10^3/uL (1.0-4.8) L Monocytes # (Auto) 0.4 x10^3/uL (0.0-1.1) Eosinophils # (Auto) 0.0 x10^3/uL (0.0-0.7) Basophils # (Auto) 0.0 x10^3/uL (0.0-0.2) Segmented Neutrophils % 88 % (35-66) H Band Neutrophils % 2 % (0-9) Lymphocytes % 6 % (24-48) L Monocytes % 4 % (0-10) Toxic Granulation Slight Platelet Estimate Adequate (ADEQUATE) Macrocytosis Slight Sodium Level 148 mmol/L (136-145) H Potassium Level 4.0 mmol/L (3.5-5.1) Chloride Level 109 mmol/L (98-107) H Carbon Dioxide Level 23 mmol/L (21-32) Anion Gap 16 (6-14) H Blood Urea Nitrogen 25 mg/dL (7-20) H Creatinine 7.1 mg/dL (0.6-1.0) H Estimated GFR (Cockcroft-Gault) 6.8 BUN/Creatinine Ratio 4 (6-20) L Glucose Level 82 mg/dL (70-99) Calcium Level 8.6 mg/dL (8.5-10.1) Total Bilirubin 0.5 mg/dL (0.2-1.0) Aspartate Amino Transferase (AST) 33 U/L (15-37) Alanine Aminotransferase (ALT) 13 U/L (14-59) L Alkaline Phosphatase 109 U/L (46-116) Total Protein 6.4 g/dL (6.4-8.2) Albumin 2.9 g/dL (3.4-5.0) L Albumin/Globulin Ratio 0.8 (1.0-1.7) L Lipase 133 U/L (73-393) Laboratory Tests 07/02/19 20:00 Laboratory Tests 07/02/19 20:00 EKG EKG [] Radiology/Procedures Radiology/Procedures [] Impressions: PROCEDURE: PORTABLE CHEST 1V Exam: Chest one view INDICATION: Productive cough TECHNIQUE: Frontal view of the chest Comparisons: 06/05/2019 FINDINGS: Heart is mildly enlarged. Pulmonary vessels are within normal limits. The lung and pleural spaces are clear. IMPRESSION: No acute pulmonary process. Electronically signed by: Gabriella Beyer MD (07/02/2019 9:22 PM) [id number] Course & Med Decision Making Course & Med Decision Making Pertinent Labs and Imaging studies reviewed. (See chart for details) [] Dragon Disclaimer Dragon Disclaimer This electronic medical record was generated, in whole or in part, using a voice recognition dictation system. Departure Departure Impression: Primary Impression: Gastroenteritis Additional Impression: Bronchitis Disposition: 01 HOME, SELF-CARE Condition: STABLE Referrals: BERTO TORRES MD (PCP) Patient Instructions: Acute Bronchitis, Viral Gastroenteritis Scripts Azithromycin (ZITHROMAX) 250 Mg Tablet 1 PKG PO UD, #6 TAB Prov: KATT FRASER Jr. DO 07/02/19 Ondansetron (ONDANSETRON ODT) 4 Mg Tab.rapdis 1 TAB PO PRN Q6-8HRS PRN for NAUSEA, #15 TAB Prov: KATT FRASER Jr. DO 07/02/19 Diphenoxylate Hcl/Atropine (LOMOTIL TABLET) 1 Each Tablet 1 TAB PO TID PRN for DIARRHEA, #15 TAB Prov: KATT FRASER Jr. DO 07/02/19 Problem Qualifiers KATT FRASER Jr. DO Jul 02, 2019 21:34
[2019-07-02 21:36] VITALS: BP 168/72
== END 2019-07-02 21:43 | disposition home or self-care (01) ==
LOC: ER 19:41
DX: K52.9 Noninfective gastroenteritis and colitis, unspecified (principal); J44.9 Chronic obstructive pulmonary disease, unspecified; Z99.81 Dependence on supplemental oxygen; I13.10 Hypertensive heart and chronic kidney disease without heart failure, with stage 1 through stage 4 chronic kidney disease, or unspecified chronic kidney disease; E11.22 Type 2 diabetes mellitus with diabetic chronic kidney disease; N18.9 Chronic kidney disease, unspecified; Z99.2 Dependence on renal dialysis; I25.10 Atherosclerotic heart disease of native coronary artery without angina pectoris; I25.2 Old myocardial infarction; Z86.718 Personal history of other venous thrombosis and embolism; Z95.5 Presence of coronary angioplasty implant and graft; Z87.891 Personal history of nicotine dependence; Z91.041 Radiographic dye allergy status
CPT/HCPCS: 36415; 71045; 80053; 83690; 85007; 85025; 96374; 96375; 99285; J2270; J2405

== ENCOUNTER 2019-08-15 17:09 | Inpatient (IN) | payer MEDICARE ==
[~2019-08-15] VITALS: Ht 154.9 cm; Wt 60.0 kg
[~2019-08-15 17:09] MED LIST changes: +AZIT250T PO; -DICL100G18 TP; +DICL100G54 TP; +DIPH1TAB PO; +NITR0.4T24 SL; +ONDA4TAB12 PO
[2019-08-15 17:44] LABS: BASO # 0.1 x10^3/uL (0.0-0.2); BASO % 1 % (0-3); EOS # 0.1 x10^3/uL (0.0-0.7); EOS % 2 % (0-3); HEMOGLOBIN 12.2 g/dL (12.0-15.5); LYMPH # 0.4 x10^3/uL (1.0-4.8); LYMPH % 7 % (24-48); MEAN CORPUSCULAR HEMOGLOBIN 32 pg (25-35); MEAN CORPUSCULAR HGB CONC 31 g/dL (31-37); MEAN CORPUSCULAR VOLUME 101 fL (79-100); MONO # 0.7 x10^3/uL (0.0-1.1); MONO % 11 % (0-9); NEUT # 4.8 x10^3/uL (1.8-7.7); NEUT % 79 % (31-73); PLATELET COUNT 227 x10^3/uL (140-400); RED BLOOD COUNT 3.87 x10^6/uL (3.50-5.40); RED CELL DISTRIBUTION WIDTH 16.9 % (11.5-14.5); WHITE BLOOD COUNT 6.1 x10^3/uL (4.0-11.0)
[2019-08-15 17:53] LABS: CREATININE 8.1 mg/dL (0.6-1.0); GFR 5.9; POTASSIUM 4.9 mmol/L (3.5-5.1)
--- NOTE | 2019-08-15 17:53 | RAD ---
EXAM: AP View of the chest DATE: 08/15/2019 5:15 PM INDICATION: Shortness of air COMPARISON: 07/22/2019, 07/02/2019 FINDINGS: Cardiomegaly. Atherosclerotic calcifications of aorta are seen. Mediastinal and hilar contours are stable. Trace right and small left pleural effusions. Left lung base opacities may represent atelectasis or developing consolidation. Mild bilateral interstitial prominence. No pneumothorax. Right glenohumeral joint osteoarthritis. IMPRESSION: Bilateral interstitial prominence with cardiomegaly and small left pleural effusion and trace right pleural effusions may be seen with pulmonary edema. Associated left lung base opacities may represent atelectasis or developing consolidation. Electronically signed by: Elton Pagan MD (08/15/2019 5:50 PM) FRANCIA
--- NOTE | 2019-08-15 17:56 | PHYS DOC ---
Past Medical History Past Medical History: CAD, CHF, COPD, Diabetes-Type II, DVT, High Cholesterol, Heart Disease, Hypertension, [place], Renal Disease, Renal Failure, Other Additional Past Medical Histor: dialysis MWF, O2 3LNC @ home, CPAP, abdominal aneursym, SHINGLES Past Surgical History: Angioplasty, Other Additional Past Surgical Histo: cardiac cath with stent placement, rotator cuff surgery,AV graft, cataract, Smoking Status: Former Smoker Alcohol Use: None Drug Use: None Adult General Chief Complaint Chief Complaint: SHORTNESS OF BREATH HPI HPI Patient is a 73 year old -[place] female with history of CAD, CHF, COPD, end-stage renal disease currently on dialysis who is home O2 dependent 3.5 L per nasal cannula who presents with multiple medical complaints. Patient reports increased confusion and fatigue over the past several days. She reports feeling particularly confused in the morning with visual hallucinations. She denies headache, dizziness, chest pain or increased leg pain or swelling. She last dialyzed yesterday. She reports increased exertional dyspnea. Denies fevers chills, sweats, i change in sputum or worsening cough. Patient was evaluated at her doctor's office this afternoon and referred to the ED for fur ther evaluation. At triage, the patient noted to have her O2 saturation in the low 80s on her portable oxygen concentrator. Patient was switched to oxygen by tank and her oxygen saturations immediately improved to 94%. Patient brought back to the room and states she feels less short of breath. [] Review of Systems Review of Systems Review of symptoms as per HPI. All other review of symptoms are negative. All other systems were reviewed and found to be within normal limits, except as documented in this note. Allergies Allergies Allergies Coded Allergies Type Severity Reaction Last Updated Verified Iodinated Contrast Media Allergy Intermediate 11/06/17 Yes Physical Exam Physical Exam Constitutional: Well developed, well nourished, no acute distress, non-toxic appearance. [] HENT: Normocephalic, atraumatic, bilateral external ears normal, oropharynx moist, nose normal. [] Eyes: PERRLA, EOMI, conjunctiva normal, no discharge. [] Neck: Normal range of motion, no tenderness. [] Cardiovascular:Heart rate regular rhythm, no murmur [] Lungs & Thorax: Barrel chested, respirations nonlabored, diminished breath sounds bilaterally. [] Abdomen: Bowel sounds normal, soft, no tenderness, no masses, no pulsatile masses. [] Skin: Warm, dry, no erythema, no rash. [] Back: No tenderness. [] Extremities: No tenderness. [] Neurologic: Alert and oriented X 3, normal motor function, normal sensory function, no focal deficits noted. [] Psychologic: Affect normal, judgement normal, mood normal. [] Current Patient Data Vital Signs Vital Signs Date Time Temp Pulse Resp B/P (MAP) Pulse Ox O2 Delivery O2 Flow Rate FiO2 08/15/19 17:29 98.2 100 20 217/100 (139) 96 Nasal Cannula 3.0 98.2 Lab Values Laboratory Tests Test 08/15/19 17:30 White Blood Count 6.1 x10^3/uL (4.0-11.0) Red Blood Count 3.87 x10^6/uL (3.50-5.40) Hemoglobin 12.2 g/dL (12.0-15.5) Hematocrit 39.0 % (36.0-47.0) Mean Corpuscular Volume 101 fL (79-100) H Mean Corpuscular Hemoglobin 32 pg (25-35) Mean Corpuscular Hemoglobin Concent 31 g/dL (31-37) Red Cell Distribution Width 16.9 % (11.5-14.5) H Platelet Count 227 x10^3/uL (140-400) Neutrophils (%) (Auto) 79 % (31-73) H Lymphocytes (%) (Auto) 7 % (24-48) L Monocytes (%) (Auto) 11 % (0-9) H Eosinophils (%) (Auto) 2 % (0-3) Basophils (%) (Auto) 1 % (0-3) Neutrophils # (Auto) 4.8 x10^3/uL (1.8-7.7) Lymphocytes # (Auto) 0.4 x10^3/uL (1.0-4.8) L Monocytes # (Auto) 0.7 x10^3/uL (0.0-1.1) Eosinophils # (Auto) 0.1 x10^3/uL (0.0-0.7) Basophils # (Auto) 0.1 x10^3/uL (0.0-0.2) Laboratory Tests 08/15/19 17:30 EKG EKG [EKG: Reviewed] Radiology/Procedures Radiology/Procedures [Chest x-ray: Left pleural effusion.] Course & Med Decision Making Course & Med Decision Making Pertinent Labs and Imaging studies reviewed. (See chart for details) [Work-up in progress. Care endorsed oncoming ERP. Anticipate hospital admission for COPD exacerbation.] Dragon Disclaimer Dragon Disclaimer This electronic medical record was generated, in whole or in part, using a voice recognition dictation system. Departure Departure Impression: Primary Impression: Dyspnea Additional Impression: COPD with acute exacerbation Disposition: ADMITTED INPATIENT Condition: STABLE Referrals: BERTO TORRES MD (PCP) Problem Qualifiers DAVID KIM DO August 15, 2019 17:56
[2019-08-15 17:59] LABS: ALBUMIN 3.2 g/dL (3.4-5.0); ALBUMIN/GLOBULIN RATIO 0.8 (1.0-1.7); TOTAL BILIRUBIN 0.6 mg/dL (0.2-1.0)
[2019-08-15] MEDS ORDERED: methylPREDNISolone SOD SUCC PF 125 MG/2 ML VIAL. IV ONE (18:00)
[2019-08-15] MEDS ORDERED: DOXYCYCLINE HYCLATE 100 MG in IV DEXTROSE 5% 100ML 100 ML IV ONE (18:00)
[2019-08-15 18:30] LABS: BASE EXCESS ABG -2 mmol/L (-3-3); HCO3 ABG 24 mmol/L (21-28); PCO2 ABG 46 mmHg (35-46); PO2 ABG 98 mmHg (65-108); SAT O2 ABG 96 % (92-99)
[2019-08-15 18:37] LABS: FIO2 ABG 3.5L N.C.
[2019-08-15] MEDS ORDERED: guaiFENesin ORAL 200 MG/10 ML LIQUID. PO PRN (18:45)
[2019-08-15] MEDS ORDERED: ONDANSETRON PF 4 MG/2 ML VIAL. IV PRN ×2 (18:45→19:00)
[2019-08-15] MEDS ORDERED: DIPHENOXYLATE/ATROPINE TABLET. PO PRN (18:45)
[2019-08-15] MEDS ORDERED: ACETAMINOPHEN 325 MG TABLET. PO PRN (18:45)
[2019-08-15] MEDS ORDERED: LORazepam 0.5 MG TABLET PO PRN (18:45)
[2019-08-15] MEDS ORDERED: NITROGLYCERIN SUBLINGUAL 0.4 MG BOTTLE OF 25. SL PRN (18:45)
[2019-08-15] MEDS ORDERED: DOCUSATE SODIUM 100 MG CAPSULE. PO PRN (18:45)
[2019-08-15] MEDS ORDERED: ALBUTEROL SULFATE 2.5 MG/3 ML NEBU. INH PRN (18:45)
[2019-08-15] MEDS ORDERED: ALBUTEROL SULFATE 2.5 MG/3 ML NEBU. NEB PRN (18:45)
[2019-08-15] MEDS ORDERED: 0.9 % SODIUM CHLORIDE 10 ML DISP.SYRIN. IV PRN (18:45)
[2019-08-15] MEDS ORDERED: ANTI-COAG MONITOR BY PHARMACY. MC PRN (19:00)
[2019-08-15] MEDS ORDERED: MORPHINE SULFATE 2 MG/ML VIAL. IV PRN (19:00)
[2019-08-15 19:05] VITALS: BP 221/95
[2019-08-15] MEDS: LISINOPRIL 20 MG TABLET PO SCH (19:45)
[2019-08-15] MEDS: AMIODARONE HCL 200 MG TABLET. PO SCH (20:07)
[2019-08-15] MEDS: METOPROLOL SUCC 24HR ER 100 MG TAB.ER.24H. PO SCH (20:08)
[2019-08-15] MEDS: ATORVASTATIN CALCIUM 40 MG TABLET. PO SCH (20:08)
[2019-08-15] MEDS: ALBUTEROL SULFATE 2.5 MG/3 ML NEBU. NEB SCH (20:29)
[2019-08-15] MEDS: BUDESONIDE 0.5 MG/2 ML NEBU. NEB SCH (20:30)
[2019-08-15] MEDS ORDERED: NON FORMULARY ITEM (Budesonide/Formoterol Fumarate (Symbicort 160-4.5 Mcg Inhaler) 2 PUFF) IH SCH (21:00)
[2019-08-15] MEDS ORDERED: HEPARIN for SUB-Q USE 5,000 UNIT/ML VIAL. SQ SCH (21:00)
[2019-08-15] MEDS ORDERED: APIXABAN 5 MG TABLET. PO SCH (21:00)
[2019-08-15] MEDS ORDERED: TRIA15OI TP (21:46)
[2019-08-15] MEDS: TRIAMCINOLONE ACETONIDE 0.1% TOPICAL OINTMENT 15GM TUBE. TP SCH (22:00)
[2019-08-15] MEDS: IPRATRPIUM/ALBUTEROL 0.5/2.5MG 3 ML NEBU. NEB SCH (22:00)
--- NOTE | 2019-08-15 22:16 | PDOC1 ---
History and Physical Date of Admission Date of Admission 08/15/2019 Identification/Chief Complaint Chief Complaint I am short of breath Source Source: Chart review, Patient History of Present Illness History of Present Illness Patient is a 73 year old female with past medical history of COPD secondary to tobacco abuse who is currently a non smoker for the past 14 years who was in her usual state of health until the day of admission when she comes quite short of breath. Her symptoms started more or less 4 days ago when she started a flare up of shingles. She has been feeling quite ill due to the pain and she has been ad herent to her dialysis schedule. She is anuric yet she still has Lasix as part of her medications. Patient denies dietary transgression, she denies PND nor orthopnea. She denies changes in her medications recently , no sick contacts, no fever or chills, no cough or sputum production Patient did not finish her dailysis session due to her pain from her acute shingles attack. At the time of my evaluation the patient is chronically ill looking she is able to finish full sentneces and does seem to have a mild in crease in her work of breathing. Plan of care discussed in detail. I have answered all her conerns to the best of my abilities. Past Medical History Cardiovascular: AFIB, CAD, CHF, HTN, Hyperlipidemia, Other Pulmonary: Asthma, COPD, Other CENTRAL NERVOUS SYSTEM: Other GI: Diverticulosis Heme/Onc: Anemia NOS Psych: Anxiety Rheumatologic: No pertinent hx Infectious disease: No pertinent hx Renal/: Chronic renal failure Endocrine: Diabetes, Hyperparathyroidism Past Surgical History Past Surgical History: Appendectomy, Arthroscopy, Cataract Removal, Other Family History Family History: Coronary Artery Disease, Diabetes Social History ALCOHOL: none Drugs: None Current Problem List Problem List Problems Medical Problems: (1) COPD with acute exacerbation Status: Acute (2) Dyspnea Status: Acute Current Medications Current Medications Current Medications Medications (Trade) Dose Ordered Sig/Eric Start Time Stop Time Status Last Admin Dose Admin Acetaminophen (Tylenol) 650 mg PRN Q4HRS PRN 08/15/19 18:45 Albuterol Sulfate (Ventolin Neb Soln) 2.5 mg RTQID 08/15/19 20:00 08/15/19 20:29 2.5 MG Albuterol/ Ipratropium (Duoneb) 3 ml Q4HRS W/A 08/15/19 22:00 Amiodarone HCl (Cordarone) 200 mg DAILY 08/15/19 19:45 08/15/19 20:07 200 MG Apixaban (Eliquis) 5 mg BID 08/15/19 21:00 08/15/19 20:08 5 MG Aspirin (Aspirin Chewable) 81 mg DAILY 08/16/19 09:00 Atorvastatin Calcium (Lipitor) 40 mg HS 08/15/19 21:00 08/15/19 20:08 40 MG Budesonide (Pulmicort) 0.5 mg RTBID 08/15/19 20:00 08/15/19 20:30 0.5 MG Clopidogrel Bisulfate (Plavix) 75 mg DAILY 08/16/19 09:00 Diphenoxylate HCl/ Atropine (Lomotil) 1 tab PRN TID PRN 08/15/19 18:45 Docusate Sodium (Colace) 100 mg PRN BID PRN 08/15/19 18:45 Doxycycline Hyclate (Vibra-Tab) 100 mg BID 08/16/19 09:00 Doxycycline Hyclate 100 mg/ Dextrose 100 ml @ 50 mls/hr 1X ONCE 08/15/19 18:00 08/15/19 19:59 DC 08/15/19 18:25 50 MLS/HR Guaifenesin (Robitussin) 200 mg PRN Q4HRS PRN 08/15/19 18:45 Heparin Sodium (Porcine) (Heparin Sodium) 5,000 unit Q12HR 08/15/19 21:00 UNV Hydroxyzine HCl (Atarax) 50 mg QMWF 08/16/19 16:00 Info (Anti-Coagulation Monitoring By Pharmacy) 1 each PRN DAILY PRN 08/15/19 19:00 Lisinopril (Prinivil) 20 mg DAILY 08/15/19 19:45 08/15/19 19:45 20 MG Lorazepam (Ativan) 0.5 mg PRN Q4HRS PRN 08/15/19 18:45 Methylprednisolone Sodium Succinate (SOLU-Medrol 125MG VIAL) 125 mg 1X ONCE 08/15/19 18:00 08/15/19 18:01 DC 08/15/19 18:04 125 MG Metoprolol Succinate (Toprol Xl) 100 mg DAILY 5/7/20 19:45 08/15/19 20:08 100 MG Morphine Sulfate (Morphine Sulfate) 2 mg PRN Q2HR PRN 08/15/19 19:00 08/16/19 18:59 Nitroglycerin (Nitrostat) 0.4 mg PRN Q5MIN PRN 08/15/19 18:45 Non-Formulary Medication (Budesonide/ Formoterol Fumarate (Symbicort 160-4.5 Mcg Inhaler)) 2 puff BID 08/15/19 21:00 UNV Ondansetron HCl (Zofran) 4 mg PRN Q8HRS PRN 08/15/19 19:00 08/16/19 18:59 Sodium Chloride (Normal Saline Flush) 3 ml QSHIFT PRN 08/15/19 18:45 Allergies Allergies Allergies Coded Allergies Type Severity Reaction Last Updated Verified Iodinated Contrast Media Allergy Intermediate 11/06/17 Yes ROS Review of System CONSTITUTIONAL: No fever or chills EYES: No recent changes SKIN: No rash or itching CARDIOVASCULAR: No chest pain, syncope, palpitations, or edema RESPIRATORY: + SOB no cough GASTROINTESTINAL: No nausea, vomiting or abdominal pain NEUROLOGICAL: No headaches or weakness ENDOCRINE: No cold or heat intolerance GENITOURINARY: No urgency or frequency of urination MUSCULOSKELETAL: No back pain or joint pain LYMPHATICS: No enlarged lymph nodes PSYCHIATRIC: No anxiety or depression Physical Exam Physical Exam GEN.: mild respiratory distress. Alert and oriented. HEENT: Head is normocephalic, atraumatic NECK: Supple. LUNGS: Barrell chested. Expiratory wheezing, somewhat decreased breath sounds HEART: RRR, S1, S2 present. Peripheral pulses intact ABDOMEN: Soft, nontender. Positive bowel sounds. EXTREMITIES: Without any cyanosis. NEUROLOGIC: CN 2 to 12 grossly intact, no motor or sensory deficits Normal speech, normal tone PSYCHIATRIC: Cooperative but expresses feeling depressed due to her illness and having to care for her who suffers from dementia. SKIN: No ulcerations Vitals Vitals Vital Signs Date Time Temp Pulse Resp B/P (MAP) Pulse Ox O2 Delivery O2 Flow Rate FiO2 08/15/19 20:32 100 Nasal Cannula 4.0 08/15/19 20:08 88 200/95 08/15/19 18:15 20 08/15/19 17:29 98.2 98.2 Labs Labs Laboratory Tests Test 08/15/19 17:15 08/15/19 17:30 08/15/19 20:37 O2 Saturation 96 % (92-99) Arterial Blood pH 7.34 (7.35-7.45) Arterial Blood pCO2 at Patient Temp 46 mmHg (35-46) Arterial Blood pO2 at Patient Temp 98 mmHg (65-108) Arterial Blood HCO3 24 mmol/L (21-28) Arterial Blood Base Excess -2 mmol/L (-3-3) FiO2 3.5l n.c. White Blood Count 6.1 x10^3/uL (4.0-11.0) Red Blood Count 3.87 x10^6/uL (3.50-5.40) Hemoglobin 12.2 g/dL (12.0-15.5) Hematocrit 39.0 % (36.0-47.0) Mean Corpuscular Volume 101 fL (79-100) Mean Corpuscular Hemoglobin 32 pg (25-35) Mean Corpuscular Hemoglobin Concent 31 g/dL (31-37) Red Cell Distribution Width 16.9 % (11.5-14.5) Platelet Count 227 x10^3/uL (140-400) Neutrophils (%) (Auto) 79 % (31-73) Lymphocytes (%) (Auto) 7 % (24-48) Monocytes (%) (Auto) 11 % (0-9) Eosinophils (%) (Auto) 2 % (0-3) Basophils (%) (Auto) 1 % (0-3) Neutrophils # (Auto) 4.8 x10^3/uL (1.8-7.7) Lymphocytes # (Auto) 0.4 x10^3/uL (1.0-4.8) Monocytes # (Auto) 0.7 x10^3/uL (0.0-1.1) Eosinophils # (Auto) 0.1 x10^3/uL (0.0-0.7) Basophils # (Auto) 0.1 x10^3/uL (0.0-0.2) Sodium Level 141 mmol/L (136-145) Potassium Level 4.9 mmol/L (3.5-5.1) Chloride Level 102 mmol/L (98-107) Carbon Dioxide Level 26 mmol/L (21-32) Anion Gap 13 (6-14) Blood Urea Nitrogen 34 mg/dL (7-20) Creatinine 8.1 mg/dL (0.6-1.0) Estimated GFR (Cockcroft-Gault) 5.9 BUN/Creatinine Ratio 4 (6-20) Glucose Level 130 mg/dL (70-99) Calcium Level 8.0 mg/dL (8.5-10.1) Total Bilirubin 0.6 mg/dL (0.2-1.0) Aspartate Amino Transf (AST/SGOT) 27 U/L (15-37) Alanine Aminotransferase (ALT/SGPT) 16 U/L (14-59) Alkaline Phosphatase 111 U/L (46-116) Troponin I Quantitative 0.081 ng/mL (0.000-0.055) NU-Yjn-C-Type Natriuretic Peptide > 70920 pg/mL (0-449) Total Protein 7.0 g/dL (6.4-8.2) Albumin 3.2 g/dL (3.4-5.0) Albumin/Globulin Ratio 0.8 (1.0-1.7) Glucose (Fingerstick) 180 mg/dL (70-99) Laboratory Tests Test 08/15/19 17:15 08/15/19 17:30 08/15/19 20:37 O2 Saturation 96 % (92-99) Arterial Blood pH 7.34 (7.35-7.45) Arterial Blood pCO2 at Patient Temp 46 mmHg (35-46) Arterial Blood pO2 at Patient Temp 98 mmHg (65-108) Arterial Blood HCO3 24 mmol/L (21-28) Arterial Blood Base Excess -2 mmol/L (-3-3) FiO2 3.5l n.c. White Blood Count 6.1 x10^3/uL (4.0-11.0) Red Blood Count 3.87 x10^6/uL (3.50-5.40) Hemoglobin 12.2 g/dL (12.0-15.5) Hematocrit 39.0 % (36.0-47.0) Mean Corpuscular Volume 101 fL (79-100) Mean Corpuscular Hemoglobin 32 pg (25-35) Mean Corpuscular Hemoglobin Concent 31 g/dL (31-37) Red Cell Distribution Width 16.9 % (11.5-14.5) Platelet Count 227 x10^3/uL (140-400) Neutrophils (%) (Auto) 79 % (31-73) Lymphocytes (%) (Auto) 7 % (24-48) Monocytes (%) (Auto) 11 % (0-9) Eosinophils (%) (Auto) 2 % (0-3) Basophils (%) (Auto) 1 % (0-3) Neutrophils # (Auto) 4.8 x10^3/uL (1.8-7.7) Lymphocytes # (Auto) 0.4 x10^3/uL (1.0-4.8) Monocytes # (Auto) 0.7 x10^3/uL (0.0-1.1) Eosinophils # (Auto) 0.1 x10^3/uL (0.0-0.7) Basophils # (Auto) 0.1 x10^3/uL (0.0-0.2) Sodium Level 141 mmol/L (136-145) Potassium Level 4.9 mmol/L (3.5-5.1) Chloride Level 102 mmol/L (98-107) Carbon Dioxide Level 26 mmol/L (21-32) Anion Gap 13 (6-14) Blood Urea Nitrogen 34 mg/dL (7-20) Creatinine 8.1 mg/dL (0.6-1.0) Estimated GFR (Cockcroft-Gault) 5.9 BUN/Creatinine Ratio 4 (6-20) Glucose Level 130 mg/dL (70-99) Calcium Level 8.0 mg/dL (8.5-10.1) Total Bilirubin 0.6 mg/dL (0.2-1.0) Aspartate Amino Transf (AST/SGOT) 27 U/L (15-37) Alanine Aminotransferase (ALT/SGPT) 16 U/L (14-59) Alkaline Phosphatase 111 U/L (46-116) Troponin I Quantitative 0.081 ng/mL (0.000-0.055) GJ-Knc-M-Type Natriuretic Peptide > 28107 pg/mL (0-449) Total Protein 7.0 g/dL (6.4-8.2) Albumin 3.2 g/dL (3.4-5.0) Albumin/Globulin Ratio 0.8 (1.0-1.7) Glucose (Fingerstick) 180 mg/dL (70-99) VTE Prophylaxis Ordered VTE Prophylaxis Devices: Yes VTE Pharmacological Prophylaxi: Yes Assessment/Plan Assessment/Plan Acute COPD exacerbation Acute exacerbation of chornic diastolic dysfunction Last ECHO April 2019 <Conclusion> The left ventricular systolic function is normal. The Ejection Fraction is 60%. There is normal LV segmental wall motion. Transmitral Doppler flow pattern is Grade I-abnormal relaxation pattern. Trace mitral regurgitation. Mild tricuspid regurgitation. There is moderate-severe pulmonary hypertension. The PA pressure was estimated at 65 mmHg. There is no evidence of significant pericardial effusion. Signed by : Jeb Davis, Electronically Approved : 04/25/2019 16:59:54 Acute Zoster attack ESRD on HD Plan: resume home medications will start broad spectrum antibiotics empirically Solumedrol will start Gabapentin Nephrology consultation Monitor respiratory status reassess in the am Further recommendations based on clinical course. DVT prophylaxis: Apixaban VLADISLAV GARCIA MD August 15, 2019 22:16
[2019-08-15] MEDS: GABAPENTIN 300 MG CAPSULE. PO SCH (22:30)
[2019-08-15 23:08] VITALS: BP 184/85
[2019-08-16 03:24] VITALS: BP 156/68
[2019-08-16 04:18] LABS: BASO % 0 % (0-3); EOS % 0 % (0-3); HEMATOCRIT 35.1 % (36.0-47.0); HEMOGLOBIN 10.8 g/dL (12.0-15.5); LYMPH # 0.2 x10^3/uL (1.0-4.8); LYMPH % 6 % (24-48); MEAN CORPUSCULAR HEMOGLOBIN 31 pg (25-35); MEAN CORPUSCULAR HGB CONC 31 g/dL (31-37); MEAN CORPUSCULAR VOLUME 102 fL (79-100); MONO # 0.1 x10^3/uL (0.0-1.1); MONO % 3 % (0-9); NEUT # 3.2 x10^3/uL (1.8-7.7); NEUT % 91 % (31-73); PLATELET COUNT 220 x10^3/uL (140-400); RED BLOOD COUNT 3.43 x10^6/uL (3.50-5.40); WHITE BLOOD COUNT 3.5 x10^3/uL (4.0-11.0)
[2019-08-16 04:58] LABS: CALCIUM 7.3 mg/dL (8.5-10.1); CREATININE 8.9 mg/dL (0.6-1.0); GFR 5.2
[2019-08-16 05:03] LABS: POTASSIUM 6.6 mmol/L (3.5-5.1)
--- NOTE | 2019-08-16 06:52 | EKG ---
[facility] [address] [place] [address] Test Date: 2019-08-15 Test Time: 17:23:00 Pat Name: WANDA PRABHAKAR Department: Room: 205 1 Gender: F Learning Coach: : 1945 Requested By: DAVID KIM Order Number: [id number] Reading MD: Felix Bustamante MD Measurements Intervals [place] Rate: 92 P: MA: QRS: -74 QRSD: 142 T: 53 QT: 386 QTc: 483 Interpretive Statements SR LAFB RBBB Electronically Signed On 08-16-2019 12:05:54 CDT by Felix Bustamante MD
[2019-08-16] MEDS: LISINOPRIL 20 MG TABLET PO SCH (07:00)
[2019-08-16] MEDS: METOPROLOL SUCC 24HR ER 100 MG TAB.ER.24H. PO SCH (07:00)
[2019-08-16] MEDS: ALBUTEROL SULFATE 2.5 MG/3 ML NEBU. NEB SCH (07:00)
[2019-08-16] MEDS: IPRATRPIUM/ALBUTEROL 0.5/2.5MG 3 ML NEBU. NEB SCH ×5 (07:01→22:00)
[2019-08-16] MEDS: BUDESONIDE 0.5 MG/2 ML NEBU. NEB SCH ×2 (07:01→19:43)
[2019-08-16 07:35] LABS: % BANDS 2 % (0-9); % LYMPHS 4 % (24-48); % SEGS 94 % (35-66); PLT ESTIMATE ADEQUATE (ADEQUATE)
[2019-08-16] MEDS ORDERED: IV NORMAL SALINE 1000ML BAG 1,000 ML IV PRN ×2 (07:51)
[2019-08-16 08:00] VITALS: BP 159/72
[2019-08-16] MEDS ORDERED: ACETAMINOPHEN 500 MG TABLET PO PRN (08:00)
[2019-08-16] MEDS ORDERED: DIALYSIS PATIENT. MC PRN (08:00)
[2019-08-16] MEDS ORDERED: diphenhydrAMINE 50 MG/ML VIAL IV PRN ×2 (08:00)
[2019-08-16] MEDS ORDERED: LIDOCAINE 1% PF 2 ML VIAL. ONE ×2 (08:58→09:00)
[2019-08-16] MEDS ORDERED: AMIODARONE HCL 200 MG TABLET. PO SCH (09:00)
[2019-08-16] MEDS ORDERED: LISINOPRIL 20 MG TABLET PO SCH (09:00)
[2019-08-16] MEDS ORDERED: METOPROLOL SUCC 24HR ER 100 MG TAB.ER.24H. PO SCH (09:00)
[2019-08-16] MEDS ORDERED: TRIAMCINOLONE ACETONIDE 0.1% TOPICAL OINTMENT 15GM TUBE. TP SCH (09:00)
--- NOTE | 2019-08-16 09:23 | PDOC2 ---
SHANA VIRK CASKET ASSEMBLER 08/16/19 0923: CARDIAC CONSULT DATE OF CONSULT Date of Consult DATE: 08/16/19 TIME: 09:08 REASON FOR CONSULT Reason for Consult: CHF REFERRING PHYSICIAN Referring Physician: Gena SOURCE Source: Chart review, Patient HISTORY OF PRESENT ILLNESS HISTORY OF PRESENT ILLNESS This is a pleasant 73 yo female admitted for complains of weakness and SOA. 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 Lately she has been feeling more tired.. Because of this she has been intermittently skipping her meds. Also there is a suspicion that her concentrator may not be working as she was transitioned to the hospital O2 her O2 sat got better. Denies any n/v/d and denies any chest pain or palpitations. No recent falls. She was also noted with confusion coming in. PAST MEDICAL HISTORY Past Medical History Cardiovascular: CAD, CHF, HTN, Hyperlipidemia, Pulmonary hypertension, AFIB Pulmonary: Asthma, COPD, PNA, PENNY CENTRAL NERVOUS SYSTEM: Other (no pertinent hx) GI: GERD, esophagitis, hiatal hernia Heme/Onc: Anemia NOS, Other (DVT) Renal/: Chronic renal failure on HD, hyperkalemia Endocrine: Diabetes Dermatology: No pertinent hx PAST SURGICAL HISTORY Past Surgical History Appendectomy, Other (left rotator cuff sx), Other (PVD s/p IMPLEMENTATION SPECIALIST/stent to left common iliac artery, endovascular AAA repair) FAMILY HISTORY Family History: Coronary Artery Disease, Diabetes SOCIAL HISTORY Smoke: Quit ALCOHOL: none Drugs: None Lives: with Family CURRENT MEDICATIONS CURRENT MEDICATIONS Current Medications Medications (Trade) Dose Ordered Sig/Eric Route PRN Reason Start Time Stop Time Status Last Admin Dose Admin Methylprednisolone Sodium Succinate (SOLU-Medrol 125MG VIAL) 125 mg 1X ONCE IV 08/15/19 18:00 08/15/19 18:01 DC 08/15/19 18:04 Doxycycline Hyclate 100 mg/ Dextrose 100 ml @ 50 mls/hr 1X ONCE IV 08/15/19 18:00 08/15/19 19:59 DC 08/15/19 18:25 Albuterol Sulfate (Ventolin Neb Soln) 2.5 mg PRN Q4HRS PRN NEB SHORTNESS OF BREATH 08/15/19 18:45 08/16/19 03:58 Albuterol/ Ipratropium (Duoneb) 3 ml Q4HRS W/A NEB 08/15/19 22:00 08/16/19 07:01 Apixaban (Eliquis) 5 mg BID PO 08/15/19 21:00 08/15/19 20:08 Atorvastatin Calcium (Lipitor) 40 mg HS PO 08/15/19 21:00 08/15/19 20:08 Albuterol Sulfate (Ventolin Neb Soln) 2.5 mg RTQID NEB 08/15/19 20:00 08/15/19 20:29 Budesonide (Pulmicort) 0.5 mg RTBID NEB 08/15/19 20:00 08/16/19 07:01 Amiodarone HCl (Cordarone) 200 mg DAILY PO 08/15/19 19:45 08/15/19 20:07 Lisinopril (Prinivil) 20 mg DAILY PO 08/15/19 19:45 08/16/19 07:00 Metoprolol Succinate (Toprol Xl) 100 mg DAILY PO 08/15/19 19:45 08/16/19 07:00 Triamcinolone Acetonide (Kenalog 0.1%) 1 evgeny BID TP 08/15/19 22:00 08/15/19 22:00 ALLERGIES ALLERGIES: Coded Allergies: Iodinated Contrast Media (Verified Allergy, Intermediate, 11/06/17) ROS Review of System 14 point ROS evaluated with pertinent positives noted per HPI PHYSICAL EXAM General: Alert, Oriented X3, Cooperative, No acute distress HEENT: Atraumatic, Mucous membr. moist/pink Lungs: Other (diminished) Heart: Regular rate (SR), Other (distant heart sounds) Abdomen: Soft, No tenderness Extremities: No cyanosis, No edema Skin: Other (reported shingles in back not observed) Neuro: Normal speech, Sensation intact Psych/Mental Status: Mental status NL, Mood NL MUSCULOSKELETAL: Osteoarthritic changes both hands VITALS/I&O VITALS/I&O: Vital Signs Date Time Temp Pulse Resp B/P (MAP) Pulse Ox O2 Delivery O2 Flow Rate FiO2 08/16/19 07:03 98 Nasal Cannula 3.0 08/16/19 07:00 60 220/110 08/16/19 03:24 98.0 22 98.0 I & O 08/15/19 08/15/19 08/16/19 15:00 23:00 07:00 Intake Total 200 ml 800 ml Balance 200 ml 800 ml LABS Lab: Laboratory Tests Test 08/15/19 17:15 08/15/19 17:30 08/15/19 20:37 08/16/19 01:15 O2 Saturation 96 % (92-99) Arterial Blood pH 7.34 (7.35-7.45) L Arterial Blood pCO2 at Patient Temp 46 mmHg (35-46) Arterial Blood pO2 at Patient Temp 98 mmHg (65-108) Arterial Blood HCO3 24 mmol/L (21-28) Arterial Blood Base Excess -2 mmol/L (-3-3) FiO2 3.5l n.c. White Blood Count 6.1 x10^3/uL (4.0-11.0) 3.5 x10^3/uL (4.0-11.0) L Red Blood Count 3.87 x10^6/uL (3.50-5.40) 3.43 x10^6/uL (3.50-5.40) L Hemoglobin 12.2 g/dL (12.0-15.5) 10.8 g/dL (12.0-15.5) L Hematocrit 39.0 % (36.0-47.0) 35.1 % (36.0-47.0) L Mean Corpuscular Volume 101 fL (79-100) H 102 fL (79-100) H Mean Corpuscular Hemoglobin 32 pg (25-35) 31 pg (25-35) Mean Corpuscular Hemoglobin Concent 31 g/dL (31-37) 31 g/dL (31-37) Red Cell Distribution Width 16.9 % (11.5-14.5) H 17.0 % (11.5-14.5) H Platelet Count 227 x10^3/uL (140-400) 220 x10^3/uL (140-400) Neutrophils (%) (Auto) 79 % (31-73) H 91 % (31-73) H Lymphocytes (%) (Auto) 7 % (24-48) L 6 % (24-48) L Monocytes (%) (Auto) 11 % (0-9) H 3 % (0-9) Eosinophils (%) (Auto) 2 % (0-3) 0 % (0-3) Basophils (%) (Auto) 1 % (0-3) 0 % (0-3) Neutrophils # (Auto) 4.8 x10^3/uL (1.8-7.7) 3.2 x10^3/uL (1.8-7.7) Lymphocytes # (Auto) 0.4 x10^3/uL (1.0-4.8) L 0.2 x10^3/uL (1.0-4.8) L Monocytes # (Auto) 0.7 x10^3/uL (0.0-1.1) 0.1 x10^3/uL (0.0-1.1) Eosinophils # (Auto) 0.1 x10^3/uL (0.0-0.7) 0.0 x10^3/uL (0.0-0.7) Basophils # (Auto) 0.1 x10^3/uL (0.0-0.2) 0.0 x10^3/uL (0.0-0.2) Sodium Level 141 mmol/L (136-145) 136 mmol/L (136-145) Potassium Level 4.9 mmol/L (3.5-5.1) 6.6 mmol/L (3.5-5.1) #*H Chloride Level 102 mmol/L (98-107) 104 mmol/L (98-107) Carbon Dioxide Level 26 mmol/L (21-32) 21 mmol/L (21-32) Anion Gap 13 (6-14) 11 (6-14) Blood Urea Nitrogen 34 mg/dL (7-20) H 39 mg/dL (7-20) H Creatinine 8.1 mg/dL (0.6-1.0) H 8.9 mg/dL (0.6-1.0) H Estimated GFR (Cockcroft-Gault) 5.9 5.2 BUN/Creatinine Ratio 4 (6-20) L Glucose Level 130 mg/dL (70-99) H 276 mg/dL (70-99) H Calcium Level 8.0 mg/dL (8.5-10.1) L 7.3 mg/dL (8.5-10.1) L Total Bilirubin 0.6 mg/dL (0.2-1.0) Aspartate Amino Transferase (AST) 27 U/L (15-37) Alanine Aminotransferase (ALT) 16 U/L (14-59) Alkaline Phosphatase 111 U/L (46-116) Troponin I Quantitative 0.081 ng/mL (0.000-0.055) 0.072 ng/mL (0.000-0.055) RC-Ved-H-Type Natriuretic Peptide > 68245 pg/mL (0-449) H Total Protein 7.0 g/dL (6.4-8.2) Albumin 3.2 g/dL (3.4-5.0) L Albumin/Globulin Ratio 0.8 (1.0-1.7) L Procalcitonin 4.51 ng/mL (0.00-0.10) H Glucose (Fingerstick) 180 mg/dL (70-99) H Segmented Neutrophils % 94 % (35-66) H Band Neutrophils % 2 % (0-9) Lymphocytes % 4 % (24-48) L Platelet Estimate Adequate (ADEQUATE) Laboratory Tests 08/15/19 17:30 08/16/19 01:15 Laboratory Tests 08/15/19 17:30 08/16/19 01:15 ECHOCARDIOGRAM ECHOCARDIOGRAM <Conclusion> The left ventricular systolic function is normal. The Ejection Fraction is 60%. There is normal LV segmental wall motion. Transmitral Doppler flow pattern is Grade I-abnormal relaxation pattern. Trace mitral regurgitation. Mild tricuspid regurgitation. There is moderate-severe pulmonary hypertension. The PA pressure was estimated at 65 mmHg. There is no evidence of significant pericardial effusion. DATE: 04/25/19 1517 HEART CATH HEART CATH FINDINGS 1. Hemodynamics: Elevated left ventricle end-diastolic pressure of 22 mmHg. No pullback gradient across the aortic valve. 2. Left ventriculography: Posterobasal wall hypokinesis with ejection fraction estimated at 45%. No significant mitral regurgitation seen. 3. Coronary angiography: a. The left main coronary artery arose from the left sinus of Valsalva, gave rise to the left anterior descending and left circumflex arteries and did not show any significant stenosis. b. The left anterior descending artery showed 30% stenosis in the midsegment. c. The left circumflex artery did not show any significant stenosis. d. The right coronary artery was a large and dominant vessel arising from the right sinus of Valsalva that showed 30% in-stent restenosis involving the distal segment. Conclusion 1. Nonobstructive coronary artery disease with 30% in-stent restenosis involving the distal segment of the right coronary artery 2. Posterobasal wall hypokinesis with ejection fraction estimated at 45%. Recommendations Medical Therapy DATE: 06/11/18 1238 ASSESSMENT/PLAN ASSESSMENT/PLAN 1. Acute on chronic respiratory failure with acute CHF, sleep apnea, COPD: O2 concentrator may have a malfunction. 2. Acute on chronic diastolic CHF: multifactorial with sleep apnea, COPD, uncontrolled HTN, appears compensated 3. CAD s/p PCI/stent to the RCA: Cath 06/2018 with with non-obstructive CAD involving RCA stent. Clinically stable. 4. Hx of NICM: recovered with recent EF at 60% 5. HTN urgency: due to missed meds, improving 6. Mild troponin elevation; peak 0.08, type 2 demand mediated as above. EKG SR with chronic RBBB. No CP 7. PAFIB; maintaining SR 8. ESRD with hyperkalemia 9. PENNY: intolerant to CPAP 10. DM2/HLP 11. Metabolic/hypertensive/hypoxic encepgalopathy 12. Reported recent back shingles: Defer to PCP Recommendations 1. K correction and fluid offloading via HD. Will have respiratory therapist check her concentrator 2. Continue current antiHTN therapy except for lisinopril. Monitor BP trend and will adjust per BP trend 3. Amiodarone for rhythm maintenance 4. Eliquis for stroke prophylaxis 5. Secondary prevention measures 6. Will schedule for outpt stress test RAMON VALLECILLO MD 08/16/19 1817: CARDIAC CONSULT ASSESSMENT/PLAN ASSESSMENT/PLAN Patient seen and examined. Agree with above nurse practitioner note. Her prior angiogram reviewed. Current pain does not appear to be classic for angina. Pain also resolved with improvement in blood pressure. EKG during time of the pain did not reveal any significant ischemic changes. Supportive care. Will follow along. SHANA VIRK APRN August 16, 2019 09:23 RAMON VALLECILLO MD August 16, 2019 18:17
--- NOTE | 2019-08-16 10:09 | PDOC ---
PROGRESS NOTES Chief Complaint Chief Complaint Assessment/Plan Acute COPD exacerbation Acute exacerbation of chornic diastolic dysfunction Last ECHO April 2019 <Conclusion> The left ventricular systolic function is normal. The Ejection Fraction is 60%. There is normal LV segmental wall motion. Transmitral Doppler flow pattern is Grade I-abnormal relaxation pattern. Trace mitral regurgitation. Mild tricuspid regurgitation. There is moderate-severe pulmonary hypertension. The PA pressure was estimated at 65 mmHg. There is no evidence of significant pericardial effusion. Signed by : Jeb Davis, Electronically Approved : 04/25/2019 16:59:54 Acute Zoster attack ESRD on HD Plan: resume home medications will start broad spectrum antibiotics empirically Solumedrol continue Gabapentin Nephrology consultation Monitor respiratory status reassess in the am Further recommendations based on clinical course. DVT prophylaxis: Apixaban Vitals Vitals Vital Signs Date Time Temp Pulse Resp B/P (MAP) Pulse Ox O2 Delivery O2 Flow Rate FiO2 08/16/19 07:03 98 Nasal Cannula 3.0 08/16/19 07:00 60 220/110 08/16/19 03:24 98.0 22 98.0 Physical Exam Lungs: Clear Labs LABS Laboratory Tests Test 08/15/19 17:15 08/15/19 17:30 08/15/19 20:37 08/16/19 01:15 O2 Saturation 96 % (92-99) Arterial Blood pH 7.34 (7.35-7.45) Arterial Blood pCO2 at Patient Temp 46 mmHg (35-46) Arterial Blood pO2 at Patient Temp 98 mmHg (65-108) Arterial Blood HCO3 24 mmol/L (21-28) Arterial Blood Base Excess -2 mmol/L (-3-3) FiO2 3.5l n.c. White Blood Count 6.1 x10^3/uL (4.0-11.0) 3.5 x10^3/uL (4.0-11.0) Red Blood Count 3.87 x10^6/uL (3.50-5.40) 3.43 x10^6/uL (3.50-5.40) Hemoglobin 12.2 g/dL (12.0-15.5) 10.8 g/dL (12.0-15.5) Hematocrit 39.0 % (36.0-47.0) 35.1 % (36.0-47.0) Mean Corpuscular Volume 101 fL (79-100) 102 fL (79-100) Mean Corpuscular Hemoglobin 32 pg (25-35) 31 pg (25-35) Mean Corpuscular Hemoglobin Concent 31 g/dL (31-37) 31 g/dL (31-37) Red Cell Distribution Width 16.9 % (11.5-14.5) 17.0 % (11.5-14.5) Platelet Count 227 x10^3/uL (140-400) 220 x10^3/uL (140-400) Neutrophils (%) (Auto) 79 % (31-73) 91 % (31-73) Lymphocytes (%) (Auto) 7 % (24-48) 6 % (24-48) Monocytes (%) (Auto) 11 % (0-9) 3 % (0-9) Eosinophils (%) (Auto) 2 % (0-3) 0 % (0-3) Basophils (%) (Auto) 1 % (0-3) 0 % (0-3) Neutrophils # (Auto) 4.8 x10^3/uL (1.8-7.7) 3.2 x10^3/uL (1.8-7.7) Lymphocytes # (Auto) 0.4 x10^3/uL (1.0-4.8) 0.2 x10^3/uL (1.0-4.8) Monocytes # (Auto) 0.7 x10^3/uL (0.0-1.1) 0.1 x10^3/uL (0.0-1.1) Eosinophils # (Auto) 0.1 x10^3/uL (0.0-0.7) 0.0 x10^3/uL (0.0-0.7) Basophils # (Auto) 0.1 x10^3/uL (0.0-0.2) 0.0 x10^3/uL (0.0-0.2) Sodium Level 141 mmol/L (136-145) 136 mmol/L (136-145) Potassium Level 4.9 mmol/L (3.5-5.1) 6.6 mmol/L (3.5-5.1) Chloride Level 102 mmol/L (98-107) 104 mmol/L (98-107) Carbon Dioxide Level 26 mmol/L (21-32) 21 mmol/L (21-32) Anion Gap 13 (6-14) 11 (6-14) Blood Urea Nitrogen 34 mg/dL (7-20) 39 mg/dL (7-20) Creatinine 8.1 mg/dL (0.6-1.0) 8.9 mg/dL (0.6-1.0) Estimated GFR (Cockcroft-Gault) 5.9 5.2 BUN/Creatinine Ratio 4 (6-20) Glucose Level 130 mg/dL (70-99) 276 mg/dL (70-99) Calcium Level 8.0 mg/dL (8.5-10.1) 7.3 mg/dL (8.5-10.1) Total Bilirubin 0.6 mg/dL (0.2-1.0) Aspartate Amino Transf (AST/SGOT) 27 U/L (15-37) Alanine Aminotransferase (ALT/SGPT) 16 U/L (14-59) Alkaline Phosphatase 111 U/L (46-116) Troponin I Quantitative 0.081 ng/mL (0.000-0.055) 0.072 ng/mL (0.000-0.055) OJ-Rkb-U-Type Natriuretic Peptide > 78600 pg/mL (0-449) Total Protein 7.0 g/dL (6.4-8.2) Albumin 3.2 g/dL (3.4-5.0) Albumin/Globulin Ratio 0.8 (1.0-1.7) Procalcitonin 4.51 ng/mL (0.00-0.10) Glucose (Fingerstick) 180 mg/dL (70-99) Segmented Neutrophils % 94 % (35-66) Band Neutrophils % 2 % (0-9) Lymphocytes % 4 % (24-48) Platelet Estimate Adequate (ADEQUATE) Assessment and Plan Assessmemt and Plan Problems Medical Problems: (1) COPD with acute exacerbation Status: Acute (2) Dyspnea Status: Acute Comment Review of Relevant I have reviewed the following items mykel (where applicable) has been applied. Labs Laboratory Tests Test 08/15/19 17:15 08/15/19 17:30 08/15/19 20:37 08/16/19 01:15 O2 Saturation 96 % (92-99) Arterial Blood pH 7.34 (7.35-7.45) Arterial Blood pCO2 at Patient Temp 46 mmHg (35-46) Arterial Blood pO2 at Patient Temp 98 mmHg (65-108) Arterial Blood HCO3 24 mmol/L (21-28) Arterial Blood Base Excess -2 mmol/L (-3-3) FiO2 3.5l n.c. White Blood Count 6.1 x10^3/uL (4.0-11.0) 3.5 x10^3/uL (4.0-11.0) Red Blood Count 3.87 x10^6/uL (3.50-5.40) 3.43 x10^6/uL (3.50-5.40) Hemoglobin 12.2 g/dL (12.0-15.5) 10.8 g/dL (12.0-15.5) Hematocrit 39.0 % (36.0-47.0) 35.1 % (36.0-47.0) Mean Corpuscular Volume 101 fL (79-100) 102 fL (79-100) Mean Corpuscular Hemoglobin 32 pg (25-35) 31 pg (25-35) Mean Corpuscular Hemoglobin Concent 31 g/dL (31-37) 31 g/dL (31-37) Red Cell Distribution Width 16.9 % (11.5-14.5) 17.0 % (11.5-14.5) Platelet Count 227 x10^3/uL (140-400) 220 x10^3/uL (140-400) Neutrophils (%) (Auto) 79 % (31-73) 91 % (31-73) Lymphocytes (%) (Auto) 7 % (24-48) 6 % (24-48) Monocytes (%) (Auto) 11 % (0-9) 3 % (0-9) Eosinophils (%) (Auto) 2 % (0-3) 0 % (0-3) Basophils (%) (Auto) 1 % (0-3) 0 % (0-3) Neutrophils # (Auto) 4.8 x10^3/uL (1.8-7.7) 3.2 x10^3/uL (1.8-7.7) Lymphocytes # (Auto) 0.4 x10^3/uL (1.0-4.8) 0.2 x10^3/uL (1.0-4.8) Monocytes # (Auto) 0.7 x10^3/uL (0.0-1.1) 0.1 x10^3/uL (0.0-1.1) Eosinophils # (Auto) 0.1 x10^3/uL (0.0-0.7) 0.0 x10^3/uL (0.0-0.7) Basophils # (Auto) 0.1 x10^3/uL (0.0-0.2) 0.0 x10^3/uL (0.0-0.2) Sodium Level 141 mmol/L (136-145) 136 mmol/L (136-145) Potassium Level 4.9 mmol/L (3.5-5.1) 6.6 mmol/L (3.5-5.1) Chloride Level 102 mmol/L (98-107) 104 mmol/L (98-107) Carbon Dioxide Level 26 mmol/L (21-32) 21 mmol/L (21-32) Anion Gap 13 (6-14) 11 (6-14) Blood Urea Nitrogen 34 mg/dL (7-20) 39 mg/dL (7-20) Creatinine 8.1 mg/dL (0.6-1.0) 8.9 mg/dL (0.6-1.0) Estimated GFR (Cockcroft-Gault) 5.9 5.2 BUN/Creatinine Ratio 4 (6-20) Glucose Level 130 mg/dL (70-99) 276 mg/dL (70-99) Calcium Level 8.0 mg/dL (8.5-10.1) 7.3 mg/dL (8.5-10.1) Total Bilirubin 0.6 mg/dL (0.2-1.0) Aspartate Amino Transf (AST/SGOT) 27 U/L (15-37) Alanine Aminotransferase (ALT/SGPT) 16 U/L (14-59) Alkaline Phosphatase 111 U/L (46-116) Troponin I Quantitative 0.081 ng/mL (0.000-0.055) 0.072 ng/mL (0.000-0.055) BB-Qoj-U-Type Natriuretic Peptide > 71531 pg/mL (0-449) Total Protein 7.0 g/dL (6.4-8.2) Albumin 3.2 g/dL (3.4-5.0) Albumin/Globulin Ratio 0.8 (1.0-1.7) Procalcitonin 4.51 ng/mL (0.00-0.10) Glucose (Fingerstick) 180 mg/dL (70-99) Segmented Neutrophils % 94 % (35-66) Band Neutrophils % 2 % (0-9) Lymphocytes % 4 % (24-48) Platelet Estimate Adequate (ADEQUATE) Laboratory Tests Test 08/15/19 17:15 08/15/19 17:30 08/15/19 20:37 08/16/19 01:15 O2 Saturation 96 % (92-99) Arterial Blood pH 7.34 (7.35-7.45) Arterial Blood pCO2 at Patient Temp 46 mmHg (35-46) Arterial Blood pO2 at Patient Temp 98 mmHg (65-108) Arterial Blood HCO3 24 mmol/L (21-28) Arterial Blood Base Excess -2 mmol/L (-3-3) FiO2 3.5l n.c. White Blood Count 6.1 x10^3/uL (4.0-11.0) 3.5 x10^3/uL (4.0-11.0) Red Blood Count 3.87 x10^6/uL (3.50-5.40) 3.43 x10^6/uL (3.50-5.40) Hemoglobin 12.2 g/dL (12.0-15.5) 10.8 g/dL (12.0-15.5) Hematocrit 39.0 % (36.0-47.0) 35.1 % (36.0-47.0) Mean Corpuscular Volume 101 fL (79-100) 102 fL (79-100) Mean Corpuscular Hemoglobin 32 pg (25-35) 31 pg (25-35) Mean Corpuscular Hemoglobin Concent 31 g/dL (31-37) 31 g/dL (31-37) Red Cell Distribution Width 16.9 % (11.5-14.5) 17.0 % (11.5-14.5) Platelet Count 227 x10^3/uL (140-400) 220 x10^3/uL (140-400) Neutrophils (%) (Auto) 79 % (31-73) 91 % (31-73) Lymphocytes (%) (Auto) 7 % (24-48) 6 % (24-48) Monocytes (%) (Auto) 11 % (0-9) 3 % (0-9) Eosinophils (%) (Auto) 2 % (0-3) 0 % (0-3) Basophils (%) (Auto) 1 % (0-3) 0 % (0-3) Neutrophils # (Auto) 4.8 x10^3/uL (1.8-7.7) 3.2 x10^3/uL (1.8-7.7) Lymphocytes # (Auto) 0.4 x10^3/uL (1.0-4.8) 0.2 x10^3/uL (1.0-4.8) Monocytes # (Auto) 0.7 x10^3/uL (0.0-1.1) 0.1 x10^3/uL (0.0-1.1) Eosinophils # (Auto) 0.1 x10^3/uL (0.0-0.7) 0.0 x10^3/uL (0.0-0.7) Basophils # (Auto) 0.1 x10^3/uL (0.0-0.2) 0.0 x10^3/uL (0.0-0.2) Sodium Level 141 mmol/L (136-145) 136 mmol/L (136-145) Potassium Level 4.9 mmol/L (3.5-5.1) 6.6 mmol/L (3.5-5.1) Chloride Level 102 mmol/L (98-107) 104 mmol/L (98-107) Carbon Dioxide Level 26 mmol/L (21-32) 21 mmol/L (21-32) Anion Gap 13 (6-14) 11 (6-14) Blood Urea Nitrogen 34 mg/dL (7-20) 39 mg/dL (7-20) Creatinine 8.1 mg/dL (0.6-1.0) 8.9 mg/dL (0.6-1.0) Estimated GFR (Cockcroft-Gault) 5.9 5.2 BUN/Creatinine Ratio 4 (6-20) Glucose Level 130 mg/dL (70-99) 276 mg/dL (70-99) Calcium Level 8.0 mg/dL (8.5-10.1) 7.3 mg/dL (8.5-10.1) Total Bilirubin 0.6 mg/dL (0.2-1.0) Aspartate Amino Transf (AST/SGOT) 27 U/L (15-37) Alanine Aminotransferase (ALT/SGPT) 16 U/L (14-59) Alkaline Phosphatase 111 U/L (46-116) Troponin I Quantitative 0.081 ng/mL (0.000-0.055) 0.072 ng/mL (0.000-0.055) IL-Qpq-G-Type Natriuretic Peptide > 37341 pg/mL (0-449) Total Protein 7.0 g/dL (6.4-8.2) Albumin 3.2 g/dL (3.4-5.0) Albumin/Globulin Ratio 0.8 (1.0-1.7) Procalcitonin 4.51 ng/mL (0.00-0.10) Glucose (Fingerstick) 180 mg/dL (70-99) Segmented Neutrophils % 94 % (35-66) Band Neutrophils % 2 % (0-9) Lymphocytes % 4 % (24-48) Platelet Estimate Adequate (ADEQUATE) Medications Current Medications Methylprednisolone Sodium Succinate (SOLU-Medrol 125MG VIAL) 125 mg 1X ONCE IV Last administered on 08/15/19at 18:04; Start 08/15/19 at 18:00; Stop 08/15/19 at 18:01; Status DC Doxycycline Hyclate 100 mg/ Dextrose 100 ml @ 50 mls/hr 1X ONCE IV Last administered on 08/15/19at 18:25; Start 08/15/19 at 18:00; Stop 08/15/19 at 19:59; Status DC Heparin Sodium (Porcine) (Heparin Sodium) 5,000 unit Q12HR SQ ; Start 08/15/19 at 21:00; Status UNV Sodium Chloride (Normal Saline Flush) 3 ml QSHIFT PRN IV AFTER MEDS AND BLOOD DRAWS; Start 08/15/19 at 18:45 Ondansetron HCl (Zofran) 4 mg PRN Q4HRS PRN IV NAUSEA/VOMITING; Start 08/15/19 at 18:45 Acetaminophen (Tylenol) 650 mg PRN Q4HRS PRN PO TEMP OVER 100.4F OR MILD PAIN; Start 08/15/19 at 18:45 Docusate Sodium (Colace) 100 mg PRN BID PRN PO CONSTIPATION; Start 08/15/19 at 18:45 Albuterol Sulfate (Ventolin Neb Soln) 2.5 mg PRN Q4HRS PRN NEB SHORTNESS OF BREATH Last administered on 08/16/19at 03:58; Start 08/15/19 at 18:45 Albuterol/ Ipratropium (Duoneb) 3 ml Q4HRS W/A NEB Last administered on 08/16/19at 07:01; Start 08/15/19 at 22:00 Guaifenesin (Robitussin) 200 mg PRN Q4HRS PRN PO COUGH; Start 08/15/19 at 18:45 Lorazepam (Ativan) 0.5 mg PRN Q4HRS PRN PO ANXIETY / AGITATION; Start 08/15/19 at 18:45 Albuterol Sulfate (Ventolin Neb Soln) 8.5 mg PRN Q6HRS PRN INH SHORTNESS OF BREATH; Start 08/15/19 at 18:45; Status UNV Amiodarone HCl (Cordarone) 200 mg DAILY PO ; Start 08/16/19 at 09:00; Stop 08/15/19 at 19:38; Status DC Apixaban (Eliquis) 5 mg BID PO Last administered on 08/15/19at 20:08; Start 08/15/19 at 21:00 Aspirin (Aspirin Chewable) 81 mg DAILY PO ; Start 08/16/19 at 09:00 Atorvastatin Calcium (Lipitor) 40 mg HS PO Last administered on 08/15/19at 20:08; Start 08/15/19 at 21:00 Clopidogrel Bisulfate (Plavix) 75 mg DAILY PO ; Start 08/16/19 at 09:00 Diphenoxylate HCl/ Atropine (Lomotil) 1 tab PRN TID PRN PO DIARRHEA; Start 08/15/19 at 18:45 Hydroxyzine HCl (Atarax) 50 mg QMWF PO ; Start 08/16/19 at 16:00 Lisinopril (Prinivil) 20 mg DAILY PO ; Start 08/16/19 at 09:00; Stop 08/15/19 at 19:38; Status DC Metoprolol Succinate (Toprol Xl) 100 mg DAILY PO ; Start 08/16/19 at 09:00; Stop 08/15/19 at 19:38; Status DC Nitroglycerin (Nitrostat) 0.4 mg PRN Q5MIN PRN SL CHEST PAIN; Start 08/15/19 at 18:45 Non-Formulary Medication (Budesonide/ Formoterol Fumarate (Symbicort 160-4.5 Mcg Inhaler)) 2 puff BID IH ; Start 08/15/19 at 21:00; Status UNV Info (Anti-Coagulation Monitoring By Pharmacy) 1 each PRN DAILY PRN MC SEE COMMENTS; Start 08/15/19 at 19:00 Albuterol Sulfate (Ventolin Neb Soln) 2.5 mg RTQID NEB Last administered on 08/15/19at 20:29; Start 08/15/19 at 20:00 Budesonide (Pulmicort) 0.5 mg RTBID NEB Last administered on 08/16/19at 07:01; Start 08/15/19 at 20:00 Ondansetron HCl (Zofran) 4 mg PRN Q8HRS PRN IV NAUSEA/VOMITING; Start 08/15/19 at 19:00; Stop 08/16/19 at 18:59 Morphine Sulfate (Morphine Sulfate) 2 mg PRN Q2HR PRN IV PAIN; Start 08/15/19 at 19:00; Stop 08/16/19 at 18:59 Amiodarone HCl (Cordarone) 200 mg DAILY PO Last administered on 08/15/19at 20:07; Start 08/15/19 at 19:45 Lisinopril (Prinivil) 20 mg DAILY PO Last administered on 08/16/19at 07:00; Start 08/15/19 at 19:45 Metoprolol Succinate (Toprol Xl) 100 mg DAILY PO Last administered on 08/16/19at 07:00; Start 08/15/19 at 19:45 Doxycycline Hyclate (Vibra-Tab) 100 mg BID PO ; Start 08/16/19 at 09:00 Triamcinolone Acetonide (Kenalog 0.1%) 1 keshawn BID TP ; Start 08/16/19 at 09:00; Stop 08/15/19 at 21:51; Status DC Triamcinolone Acetonide (Kenalog 0.1%) 1 keshawn BID TP Last administered on 08/15/19at 22:00; Start 08/15/19 at 22:00 Gabapentin (Neurontin) 300 mg QHS PO ; Start 08/15/19 at 22:30 Sodium Chloride 1,000 ml @ 1,000 mls/hr Q1H PRN IV hypotension; Start 08/16/19 at 07:51; Stop 08/16/19 at 13:50 Acetaminophen (Tylenol) 500 mg 1X PRN PRN PO MILD PAIN / TEMP > 100.3'F; Start 08/16/19 at 08:00; Stop 08/17/19 at 07:59 Diphenhydramine HCl (Benadryl) 25 mg 1X PRN PRN IV ITCHING; Start 08/16/19 at 08:00; Stop 08/17/19 at 07:59 Diphenhydramine HCl (Benadryl) 25 mg 1X PRN PRN IV ITCHING; Start 08/16/19 at 08:00; Stop 08/17/19 at 07:59 Sodium Chloride 1,000 ml @ 400 mls/hr Q2H30M PRN IV PATENCY; Start 08/16/19 at 07:51; Stop 08/16/19 at 19:50 Info (PHARMACY MONITORING -- do not chart) 1 each PRN DAILY PRN MC SEE COMMENTS; Start 08/16/19 at 08:00 Lidocaine HCl (Xylocaine-Mpf 1% 2ml Vial) 2 ml STK-MED ONCE .ROUTE ; Start 08/16/19 at 08:58; Stop 08/16/19 at 08:58; Status DC Active Scripts Active Nitrostat (Nitroglycerin) 0.4 Mg Tab.subl 0.4 Mg SL PRN Q5MIN PRN Ondansetron Odt (Ondansetron) 4 Mg Tab.rapdis 1 Tab PO PRN Q6-8HRS PRN Lomotil Tablet (Diphenoxylate Hcl/Atropine) 1 Each Tablet 1 Tab PO TID PRN Amiodarone Hcl 200 Mg Tablet 200 Mg PO DAILY 30 Days Eliquis (Apixaban) 5 Mg Tablet 5 Mg PO BID MDD ` Reported Triamcinolone Acetonide 0.1% Oint (Triamcinolone Acetonide) 15 Gm Oint...g. 1 Keshawn TP BID MIX WITH EUCERIN DIRECTED BY PHYSICIAN Metoprolol Succinate ( Xl ) (Metoprolol Succinate) 100 Mg Tab.er.24h 1 Tab PO DAILY Lisinopril 20 Mg Tablet 1 Tab PO DAILY Clopidogrel (Clopidogrel Bisulfate) 75 Mg Tablet 75 Mg PO DAILY Aspirin 81 Mg Tab.chew 1 Tab PO DAILY Lipitor (Atorvastatin Calcium) 40 Mg Tablet 40 Mg PO HS Furosemide 40 Mg Tablet 40 Mg PO DAILY Symbicort 160-4.5 Mcg Inhaler (Budesonide/Formoterol Fumarate) 10.2 Gm Hfa.aer.ad 2 Puff IH BID Proair Hfa Inhaler (Albuterol Sulfate) 8.5 Gm Hfa.aer.ad 1 Puff INH PRN Q6HRS PRN Hydroxyzine Hcl 25 Mg Tablet 50 Mg PO QMWF Vitals/I & O Vital Sign - Last 24 Hours 08/15/19 08/15/19 08/15/19 08/15/19 17:17 17:29 18:02 18:15 Temp 98.2 98.2 Pulse 100 100 92 88 Resp 20 20 20 20 B/P (MAP) 223/96 (138) 217/100 (139) 209/91 (130) 187/76 (113) Pulse Ox 96 96 100 100 O2 Delivery Nasal Cannula Nasal Cannula Nasal Cannula Nasal Cannula O2 Flow Rate 3.0 3.0 3.0 3.0 08/15/19 08/15/19 08/15/19 08/15/19 18:38 19:05 19:45 20:00 Temp 98.3 98.3 Pulse 96 88 Resp 20 B/P (MAP) 221/95 (137) 200/95 Pulse Ox 97 96 O2 Delivery Nasal Cannula Nasal Cannula O2 Flow Rate 3.5 2.0 4.0 08/15/19 08/15/19 08/15/19 08/15/19 20:07 20:08 20:32 23:08 Temp 97.9 97.9 Pulse 100 88 89 Resp 22 B/P (MAP) 200/95 200/95 184/85 (118) Pulse Ox 100 94 O2 Delivery Nasal Cannula Nasal Cannula O2 Flow Rate 4.0 2.0 08/16/19 08/16/19 08/16/19 08/16/19 03:24 03:58 07:00 07:00 Temp 98.0 98.0 Pulse 66 66 60 Resp 22 B/P (MAP) 156/68 (97) 220/110 220/110 Pulse Ox 96 100 O2 Delivery Nasal Cannula Nasal Cannula O2 Flow Rate 2.0 3.0 08/16/19 07:03 Pulse Ox 98 O2 Delivery Nasal Cannula O2 Flow Rate 3.0 Intake and Output 08/15/19 08/15/19 08/16/19 14:59 22:59 06:59 Intake Total 200 ml 800 ml Balance 200 ml 800 ml [id number] GARCIA MD August 16, 2019 10:08
--- NOTE | 2019-08-16 10:46 | PDOC2 ---
CONSULT Date of Consult Date of Consult DATE: 08/16/19 TIME: 10:46 Source Source: Chart review, Patient History of Present Illness Reason for Visit: Patient is a 73 year old AAFwith past medical history of COPD who was in her usual state of health until the day of admission with c/o short of breath Her symptoms started less 4 days ago She has been feeling quite ill due to the pain , not missed any HD. Takes care of her at home Denies any CP. No N/V/D No cough , Fever or chills On reviewing the chart noted that she has shingles(not reported by pt to me ) Past Medical History Cardiovascular: AFIB, CAD, CHF, HTN, Hyperlipidemia, Other Pulmonary: Asthma, COPD, Other CENTRAL NERVOUS SYSTEM: Other GI: Diverticulosis Heme/Onc: Anemia NOS Psych: Anxiety Rheumatologic: No pertinent hx Infectious disease: No pertinent hx Renal/: Chronic renal failure Endocrine: Diabetes, Hyperparathyroidism Past Surgical History Past Surgical History: Appendectomy, Arthroscopy, Cataract Removal, Other Family History Family History: Coronary Artery Disease, Diabetes Social History Quit ALCOHOL: none Drugs: None Lives: with Family Domestic Violence: Neg Current Problem List Problem List Problems Medical Problems: (1) COPD with acute exacerbation Status: Acute (2) Dyspnea Status: Acute Current Medications Current Medications Current Medications Methylprednisolone Sodium Succinate (SOLU-Medrol 125MG VIAL) 125 mg 1X ONCE IV Last administered on 08/15/19at 18:04; Start 08/15/19 at 18:00; Stop 08/15/19 at 18:01; Status DC Doxycycline Hyclate 100 mg/ Dextrose 100 ml @ 50 mls/hr 1X ONCE IV Last administered on 08/15/19at 18:25; Start 08/15/19 at 18:00; Stop 08/15/19 at 19:59; Status DC Heparin Sodium (Porcine) (Heparin Sodium) 5,000 unit Q12HR SQ ; Start 08/15/19 at 21:00; Status UNV Sodium Chloride (Normal Saline Flush) 3 ml QSHIFT PRN IV AFTER MEDS AND BLOOD DRAWS; Start 08/15/19 at 18:45 Ondansetron HCl (Zofran) 4 mg PRN Q4HRS PRN IV NAUSEA/VOMITING; Start 08/15/19 at 18:45 Acetaminophen (Tylenol) 650 mg PRN Q4HRS PRN PO TEMP OVER 100.4F OR MILD PAIN; Start 08/15/19 at 18:45 Docusate Sodium (Colace) 100 mg PRN BID PRN PO CONSTIPATION; Start 08/15/19 at 18:45 Albuterol Sulfate (Ventolin Neb Soln) 2.5 mg PRN Q4HRS PRN NEB SHORTNESS OF BREATH Last administered on 08/16/19at 03:58; Start 08/15/19 at 18:45 Albuterol/ Ipratropium (Duoneb) 3 ml Q4HRS W/A NEB Last administered on 08/16/19at 07:01; Start 08/15/19 at 22:00 Guaifenesin (Robitussin) 200 mg PRN Q4HRS PRN PO COUGH; Start 08/15/19 at 18:45 Lorazepam (Ativan) 0.5 mg PRN Q4HRS PRN PO ANXIETY / AGITATION; Start 08/15/19 at 18:45 Albuterol Sulfate (Ventolin Neb Soln) 8.5 mg PRN Q6HRS PRN INH SHORTNESS OF BREATH; Start 08/15/19 at 18:45; Status UNV Amiodarone HCl (Cordarone) 200 mg DAILY PO ; Start 08/16/19 at 09:00; Stop 08/15/19 at 19:38; Status DC Apixaban (Eliquis) 5 mg BID PO Last administered on 08/15/19at 20:08; Start 08/15/19 at 21:00 Aspirin (Aspirin Chewable) 81 mg DAILY PO ; Start 08/16/19 at 09:00 Atorvastatin Calcium (Lipitor) 40 mg HS PO Last administered on 08/15/19at 20:08; Start 08/15/19 at 21:00 Clopidogrel Bisulfate (Plavix) 75 mg DAILY PO ; Start 08/16/19 at 09:00 Diphenoxylate HCl/ Atropine (Lomotil) 1 tab PRN TID PRN PO DIARRHEA; Start at 18:45 Hydroxyzine HCl (Atarax) 50 mg QMWF PO ; Start 08/16/19 at 16:00 Lisinopril (Prinivil) 20 mg DAILY PO ; Start 08/16/19 at 09:00; Stop 08/15/19 at 19:38; Status DC Metoprolol Succinate (Toprol Xl) 100 mg DAILY PO ; Start 08/16/19 at 09:00; Stop 08/15/19 at 19:38; Status DC Nitroglycerin (Nitrostat) 0.4 mg PRN Q5MIN PRN SL CHEST PAIN; Start 08/15/19 at 18:45 Non-Formulary Medication (Budesonide/ Formoterol Fumarate (Symbicort 160-4.5 Mcg Inhaler)) 2 puff BID IH ; Start 08/15/19 at 21:00; Status UNV Info (Anti-Coagulation Monitoring By Pharmacy) 1 each PRN DAILY PRN MC SEE COMMENTS; Start 08/15/19 at 19:00 Albuterol Sulfate (Ventolin Neb Soln) 2.5 mg RTQID NEB Last administered on 08/15/19at 20:29; Start 08/15/19 at 20:00; Stop 08/16/19 at 10:26; Status DC Budesonide (Pulmicort) 0.5 mg RTBID NEB Last administered on 08/16/19at 07:01; Start 08/15/19 at 20:00 Ondansetron HCl (Zofran) 4 mg PRN Q8HRS PRN IV NAUSEA/VOMITING; Start 08/15/19 at 19:00; Stop 08/16/19 at 18:59 Morphine Sulfate (Morphine Sulfate) 2 mg PRN Q2HR PRN IV PAIN; Start 08/15/19 at 19:00; Stop 08/16/19 at 18:59 Amiodarone HCl (Cordarone) 200 mg DAILY PO Last administered on 08/15/19at 20:07; Start 08/15/19 at 19:45 Lisinopril (Prinivil) 20 mg DAILY PO Last administered on 08/16/19at 07:00; Star t 08/15/19 at 19:45 Metoprolol Succinate (Toprol Xl) 100 mg DAILY PO Last administered on 08/16/19at 07:00; Start 08/15/19 at 19:45 Doxycycline Hyclate (Vibra-Tab) 100 mg BID PO ; Start 08/16/19 at 09:00 Triamcinolone Acetonide (Kenalog 0.1%) 1 keshawn BID TP ; Start 08/16/19 at 09:00; Stop 08/15/19 at 21:51; Status DC Triamcinolone Acetonide (Kenalog 0.1%) 1 keshawn BID TP Last administered on 08/15/19at 22:00; Start 08/15/19 at 22:00 Gabapentin (Neurontin) 300 mg QHS PO ; Start 08/15/19 at 22:30 Sodium Chloride 1,000 ml @ 1,000 mls/hr Q1H PRN IV hypotension; Start 08/16/19 at 07:51; Stop 08/16/19 at 13:50 Acetaminophen (Tylenol) 500 mg 1X PRN PRN PO MILD PAIN / TEMP > 100.3'F; Start 08/16/19 at 08:00; Stop 08/17/19 at 07:59 Diphenhydramine HCl (Benadryl) 25 mg 1X PRN PRN IV ITCHING; Start 08/16/19 at 08:00; Stop 08/17/19 at 07:59 Diphenhydramine HCl (Benadryl) 25 mg 1X PRN PRN IV ITCHING; Start 08/16/19 at 08:00; Stop 08/17/19 at 07:59 Sodium Chloride 1,000 ml @ 400 mls/hr Q2H30M PRN IV PATENCY; Start 08/16/19 at 07:51; Stop 08/16/19 at 19:50 Info (PHARMACY MONITORING -- do not chart) 1 each PRN DAILY PRN MC SEE COMMENTS; Start 08/16/19 at 08:00 Lidocaine HCl (Xylocaine-Mpf 1% 2ml Vial) 2 ml STK-MED ONCE .ROUTE ; Start 08/16/19 at 08:58; Stop 08/16/19 at 08:58; Status DC Active Scripts Active Nitrostat (Nitroglycerin) 0.4 Mg Tab.subl 0.4 Mg SL PRN Q5MIN PRN Ondansetron Odt (Ondansetron) 4 Mg Tab.rapdis 1 Tab PO PRN Q6-8HRS PRN Lomotil Tablet (Diphenoxylate Hcl/Atropine) 1 Each Tablet 1 Tab PO TID PRN Amiodarone Hcl 200 Mg Tablet 200 Mg PO DAILY 30 Days Eliquis (Apixaban) 5 Mg Tablet 5 Mg PO BID MDD ` Reported Triamcinolone Acetonide 0.1% Oint (Triamcinolone Acetonide) 15 Gm Oint...g. 1 Keshawn TP BID MIX WITH EUCERIN DIRECTED BY PHYSICIAN Metoprolol Succinate ( Xl ) (Metoprolol Succinate) 100 Mg Tab.er.24h 1 Tab PO DAILY Lisinopril 20 Mg Tablet 1 Tab PO DAILY Clopidogrel (Clopidogrel Bisulfate) 75 Mg Tablet 75 Mg PO DAILY Aspirin 81 Mg Tab.chew 1 Tab PO DAILY Lipitor (Atorvastatin Calcium) 40 Mg Tablet 40 Mg PO HS Furosemide 40 Mg Tablet 40 Mg PO DAILY Symbicort 160-4.5 Mcg Inhaler (Budesonide/Formoterol Fumarate) 10.2 Gm Hfa.aer.ad 2 Puff IH BID Proair Hfa Inhaler (Albuterol Sulfate) 8.5 Gm Hfa.aer.ad 1 Puff INH PRN Q6HRS PRN Hydroxyzine Hcl 25 Mg Tablet 50 Mg PO QMWF Allergies Allergies: Coded Allergies: Iodinated Contrast Media (Verified Allergy, Intermediate, 11/06/17) ROS Review of System Per HPI Physical Exam Physical Exam General: Alert, Oriented X3, Cooperative, No acute distress HEENT: Atraumatic, Mucous membr. moist/pink Lungs - diminished at bases, Non labored Heart: Regular rate (SR), Abdomen: Soft, No tenderness Extremities: No cyanosis, No edema Skin: shingles in back per other provider notes Neuro: grossly normal No mcnulty Vital Signs Vital Signs Date Time Temp Pulse Resp B/P (MAP) Pulse Ox O2 Delivery O2 Flow Rate FiO2 08/16/19 07:03 98 Nasal Cannula 3.0 08/16/19 07:00 60 220/110 08/16/19 03:24 98.0 22 98.0 Assessment & Plan ESRD- On HD MWF under Dr. Ramon's care Seen on HD, tolerating well, Discussed treatment plan with Radhames HyperKalemia- HD today Acute COPD exacerbation Acute Zoster attack- per primary Anemia- stable , PARISA per protocol for Hgb <10 GI bleed in june 2018, post EGD DM - primary managing PENNY- cant tolerate CPAP NICM/chronic systolic CHF: compensated EF 35% NYHA 2 PAFIB: SR/SB, Hypertension; antihypertensives CAD s/p PCI/stent to the RCA: Cath earlier this year with non-obstructive CAD, clnically stable Labs Labs Laboratory Tests Test 08/15/19 17:15 08/15/19 17:30 5/7/20 20:37 08/16/19 01:15 O2 Saturation 96 % (92-99) Arterial Blood pH 7.34 (7.35-7.45) Arterial Blood pCO2 at Patient Temp 46 mmHg (35-46) Arterial Blood pO2 at Patient Temp 98 mmHg (65-108) Arterial Blood HCO3 24 mmol/L (21-28) Arterial Blood Base Excess -2 mmol/L (-3-3) FiO2 3.5l n.c. White Blood Count 6.1 x10^3/uL (4.0-11.0) 3.5 x10^3/uL (4.0-11.0) Red Blood Count 3.87 x10^6/uL (3.50-5.40) 3.43 x10^6/uL (3.50-5.40) Hemoglobin 12.2 g/dL (12.0-15.5) 10.8 g/dL (12.0-15.5) Hematocrit 39.0 % (36.0-47.0) 35.1 % (36.0-47.0) Mean Corpuscular Volume 101 fL (79-100) 102 fL (79-100) Mean Corpuscular Hemoglobin 32 pg (25-35) 31 pg (25-35) Mean Corpuscular Hemoglobin Concent 31 g/dL (31-37) 31 g/dL (31-37) Red Cell Distribution Width 16.9 % (11.5-14.5) 17.0 % (11.5-14.5) Platelet Count 227 x10^3/uL (140-400) 220 x10^3/uL (140-400) Neutrophils (%) (Auto) 79 % (31-73) 91 % (31-73) Lymphocytes (%) (Auto) 7 % (24-48) 6 % (24-48) Monocytes (%) (Auto) 11 % (0-9) 3 % (0-9) Eosinophils (%) (Auto) 2 % (0-3) 0 % (0-3) Basophils (%) (Auto) 1 % (0-3) 0 % (0-3) Neutrophils # (Auto) 4.8 x10^3/uL (1.8-7.7) 3.2 x10^3/uL (1.8-7.7) Lymphocytes # (Auto) 0.4 x10^3/uL (1.0-4.8) 0.2 x10^3/uL (1.0-4.8) Monocytes # (Auto) 0.7 x10^3/uL (0.0-1.1) 0.1 x10^3/uL (0.0-1.1) Eosinophils # (Auto) 0.1 x10^3/uL (0.0-0.7) 0.0 x10^3/uL (0.0-0.7) Basophils # (Auto) 0.1 x10^3/uL (0.0-0.2) 0.0 x10^3/uL (0.0-0.2) Sodium Level 141 mmol/L (136-145) 136 mmol/L (136-145) Potassium Level 4.9 mmol/L (3.5-5.1) 6.6 mmol/L (3.5-5.1) Chloride Level 102 mmol/L (98-107) 104 mmol/L (98-107) Carbon Dioxide Level 26 mmol/L (21-32) 21 mmol/L (21-32) Anion Gap 13 (6-14) 11 (6-14) Blood Urea Nitrogen 34 mg/dL (7-20) 39 mg/dL (7-20) Creatinine 8.1 mg/dL (0.6-1.0) 8.9 mg/dL (0.6-1.0) Estimated GFR (Cockcroft-Gault) 5.9 5.2 BUN/Creatinine Ratio 4 (6-20) Glucose Level 130 mg/dL (70-99) 276 mg/dL (70-99) Calcium Level 8.0 mg/dL (8.5-10.1) 7.3 mg/dL (8.5-10.1) Total Bilirubin 0.6 mg/dL (0.2-1.0) Aspartate Amino Transf (AST/SGOT) 27 U/L (15-37) Alanine Aminotransferase (ALT/SGPT) 16 U/L (14-59) Alkaline Phosphatase 111 U/L (46-116) Troponin I Quantitative 0.081 ng/mL (0.000-0.055) 0.072 ng/mL (0.000-0.055) GV-Xht-A-Type Natriuretic Peptide > 18833 pg/mL (0-449) Total Protein 7.0 g/dL (6.4-8.2) Albumin 3.2 g/dL (3.4-5.0) Albumin/Globulin Ratio 0.8 (1.0-1.7) Procalcitonin 4.51 ng/mL (0.00-0.10) Glucose (Fingerstick) 180 mg/dL (70-99) Segmented Neutrophils % 94 % (35-66) Band Neutrophils % 2 % (0-9) Lymphocytes % 4 % (24-48) Platelet Estimate Adequate (ADEQUATE) Laboratory Tests Test 08/15/19 17:15 08/15/19 17:30 08/15/19 20:37 08/16/19 01:15 O2 Saturation 96 % (92-99) Arterial Blood pH 7.34 (7.35-7.45) Arterial Blood pCO2 at Patient Temp 46 mmHg (35-46) Arterial Blood pO2 at Patient Temp 98 mmHg (65-108) Arterial Blood HCO3 24 mmol/L (21-28) Arterial Blood Base Excess -2 mmol/L (-3-3) FiO2 3.5l n.c. White Blood Count 6.1 x10^3/uL (4.0-11.0) 3.5 x10^3/uL (4.0-11.0) Red Blood Count 3.87 x10^6/uL (3.50-5.40) 3.43 x10^6/uL (3.50-5.40) Hemoglobin 12.2 g/dL (12.0-15.5) 10.8 g/dL (12.0-15.5) Hematocrit 39.0 % (36.0-47.0) 35.1 % (36.0-47.0) Mean Corpuscular Volume 101 fL (79-100) 102 fL (79-100) Mean Corpuscular Hemoglobin 32 pg (25-35) 31 pg (25-35) Mean Corpuscular Hemoglobin Concent 31 g/dL (31-37) 31 g/dL (31-37) Red Cell Distribution Width 16.9 % (11.5-14.5) 17.0 % (11.5-14.5) Platelet Count 227 x10^3/uL (140-400) 220 x10^3/uL (140-400) Neutrophils (%) (Auto) 79 % (31-73) 91 % (31-73) Lymphocytes (%) (Auto) 7 % (24-48) 6 % (24-48) Monocytes (%) (Auto) 11 % (0-9) 3 % (0-9) Eosinophils (%) (Auto) 2 % (0-3) 0 % (0-3) Basophils (%) (Auto) 1 % (0-3) 0 % (0-3) Neutrophils # (Auto) 4.8 x10^3/uL (1.8-7.7) 3.2 x10^3/uL (1.8-7.7) Lymphocytes # (Auto) 0.4 x10^3/uL (1.0-4.8) 0.2 x10^3/uL (1.0-4.8) Monocytes # (Auto) 0.7 x10^3/uL (0.0-1.1) 0.1 x10^3/uL (0.0-1.1) Eosinophils # (Auto) 0.1 x10^3/uL (0.0-0.7) 0.0 x10^3/uL (0.0-0.7) Basophils # (Auto) 0.1 x10^3/uL (0.0-0.2) 0.0 x10^3/uL (0.0-0.2) Sodium Level 141 mmol/L (136-145) 136 mmol/L (136-145) Potassium Level 4.9 mmol/L (3.5-5.1) 6.6 mmol/L (3.5-5.1) Chloride Level 102 mmol/L (98-107) 104 mmol/L (98-107) Carbon Dioxide Level 26 mmol/L (21-32) 21 mmol/L (21-32) Anion Gap 13 (6-14) 11 (6-14) Blood Urea Nitrogen 34 mg/dL (7-20) 39 mg/dL (7-20) Creatinine 8.1 mg/dL (0.6-1.0) 8.9 mg/dL (0.6-1.0) Estimated GFR (Cockcroft-Gault) 5.9 5.2 BUN/Creatinine Ratio 4 (6-20) Glucose Level 130 mg/dL (70-99) 276 mg/dL (70-99) Calcium Level 8.0 mg/dL (8.5-10.1) 7.3 mg/dL (8.5-10.1) Total Bilirubin 0.6 mg/dL (0.2-1.0) Aspartate Amino Transf (AST/SGOT) 27 U/L (15-37) Alanine Aminotransferase (ALT/SGPT) 16 U/L (14-59) Alkaline Phosphatase 111 U/L (46-116) Troponin I Quantitative 0.081 ng/mL (0.000-0.055) 0.072 ng/mL (0.000-0.055) ON-Svn-Z-Type Natriuretic Peptide > 29816 pg/mL (0-449) Total Protein 7.0 g/dL (6.4-8.2) Albumin 3.2 g/dL (3.4-5.0) Albumin/Globulin Ratio 0.8 (1.0-1.7) Procalcitonin 4.51 ng/mL (0.00-0.10) Glucose (Fingerstick) 180 mg/dL (70-99) Segmented Neutrophils % 94 % (35-66) Band Neutrophils % 2 % (0-9) Lymphocytes % 4 % (24-48) Platelet Estimate Adequate (ADEQUATE) Review All relevant outside records, renal labs, imaging studies, telemetry/EKG's were reviewed. DESIREE MELARA MD August 16, 2019 10:46
--- NOTE | 2019-08-16 11:45 | NUR ---
Dialysis nurse called & said patient was having chest pain. This RN went up & administered one dose of nitro & pain was relieved. Patient stated her pain was a 7/10 in the middle of the chest & went to her back & it felt like "when you have heartburn". EKG was also done. Dr. Bustamante was notified. Will continue to monitor.
--- NOTE | 2019-08-16 12:13 | EKG ---
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
[2019-08-16] MEDS: ASPIRIN CHEWABLE 81 MG TABLET. PO SCH (13:25)
[2019-08-16] MEDS: AMIODARONE HCL 200 MG TABLET. PO SCH (13:26)
[2019-08-16] MEDS: CLOPIDOGREL BISULFATE 75 MG TABLET PO SCH (13:26)
[2019-08-16] MEDS: DOXYCYCLINE HYCLATE 100 MG TABLET PO SCH ×2 (13:26→21:04)
[2019-08-16] MEDS: TRIAMCINOLONE ACETONIDE 0.1% TOPICAL OINTMENT 15GM TUBE. TP SCH ×2 (13:27→21:05)
--- NOTE | 2019-08-16 13:44 | NUR ---
SS following for discharge planning. SS reviewed pt chart and discussed with pt RN. Pt is from home with spouse and is currently requiring oxygen. Pt has home oxygen. Pt has outpatient hemodialysis at [facility], ; fax [phone], Monday, Monday, and Monday at 0600. Pt is being swabbed for COVID19 per [facility] request. SS will continue to follow for discharge planning.
[2019-08-16 15:00] VITALS: BP 159/72
[2019-08-16] MEDS ORDERED: hydrOXYzine 25 MG TABLET PO SCH (16:00)
[2019-08-16] MEDS ORDERED: DEXTROSE 50% 25 GM / 50ML DISP.SYRIN. IV PRN (16:45)
[2019-08-16 19:58] VITALS: BP 139/57
[2019-08-16] MEDS: LACTOBACILLUS RHAMNOSUS GG 1 CAPSULE. PO SCH (21:04)
[2019-08-16] MEDS: ATORVASTATIN CALCIUM 40 MG TABLET. PO SCH (21:04)
[2019-08-16] MEDS: APIXABAN 2.5 MG TABLET. PO SCH (21:04)
[2019-08-16] MEDS: GABAPENTIN 300 MG CAPSULE. PO SCH (21:04)
[2019-08-16 22:30] VITALS: BP 136/46
[2019-08-17 00:07] LABS: HEMOGLOBIN A1C 4.5 % (4.8-5.6)
[2019-08-17 02:54] VITALS: BP 105/52
[2019-08-17 06:26] VITALS: BP 141/47
[2019-08-17] MEDS: IPRATRPIUM/ALBUTEROL 0.5/2.5MG 3 ML NEBU. NEB SCH ×3 (07:37→15:09)
[2019-08-17] MEDS: BUDESONIDE 0.5 MG/2 ML NEBU. NEB SCH (07:45)
[2019-08-17] MEDS: APIXABAN 2.5 MG TABLET. PO SCH (08:39)
[2019-08-17] MEDS: CLOPIDOGREL BISULFATE 75 MG TABLET PO SCH (08:39)
[2019-08-17] MEDS: LACTOBACILLUS RHAMNOSUS GG 1 CAPSULE. PO SCH (08:39)
[2019-08-17] MEDS: DOXYCYCLINE HYCLATE 100 MG TABLET PO SCH (08:39)
[2019-08-17] MEDS: ASPIRIN CHEWABLE 81 MG TABLET. PO SCH (08:39)
[2019-08-17] MEDS: AMIODARONE HCL 200 MG TABLET. PO SCH (08:40)
[2019-08-17] MEDS: METOPROLOL SUCC 24HR ER 100 MG TAB.ER.24H. PO SCH (08:41)
[2019-08-17] MEDS: TRIAMCINOLONE ACETONIDE 0.1% TOPICAL OINTMENT 15GM TUBE. TP SCH (08:42)
--- NOTE | 2019-08-17 10:09 | PDOC ---
PROGRESS NOTES Chief Complaint Chief Complaint impression Acute COPD exacerbation Acute exacerbation of chronic diastolic dysfunction hyperkalemia ESRD ON DIALYSIS Last ECHO April 2019 <Conclusion> The left ventricular systolic function is normal. The Ejection Fraction is 60%. There is normal LV segmental wall motion. Transmitral Doppler flow pattern is Grade I-abnormal relaxation pattern. Trace mitral regurgitation. Mild tricuspid regurgitation. There is moderate-severe pulmonary hypertension. The PA pressure was estimated at 65 mmHg. There is no evidence of significant pericardial effusion. Signed by : Jeb Davis, Electronically Approved : 04/25/2019 16:59:54 Acute Zoster attack ESRD on HD Plan: resume home medications will start broad spectrum antibiotics empirically Solumedrol continue Gabapentin Nephrology consultation Monitor respiratory status reassess in the am CBC, COMP HEALTH PENDING DVT prophylaxis: Apixaban D/W RT Vitals Vitals Vital Signs Date Time Temp Pulse Resp B/P (MAP) Pulse Ox O2 Delivery O2 Flow Rate FiO2 08/17/19 08:41 54 141/47 08/17/19 07:42 92 Nasal Cannula 3.0 08/17/19 06:26 97.8 20 97.8 Physical Exam General: Alert, Oriented X3, Cooperative, No acute distress Heart: Regular rate (SR), Other (distant heart sounds) Lungs: Clear Abdomen: Soft, No tenderness Extremities: No cyanosis, No edema Skin: No significant lesion, Other (reported shingles in back not observed) Labs LABS Laboratory Tests Test 08/16/19 14:15 08/16/19 17:06 08/16/19 21:10 08/17/19 06:56 Coronavirus (COVID-19)(PCR) See separate report Glucose (Fingerstick) 161 mg/dL (70-99) 119 mg/dL (70-99) 86 mg/dL (70-99) Assessment and Plan Assessmemt and Plan Problems Medical Problems: (1) COPD with acute exacerbation Status: Acute (2) Dyspnea Status: Acute Comment Review of Relevant I have reviewed the following items mykel (where applicable) has been applied. Labs Laboratory Tests Test 08/15/19 17:15 08/15/19 17:30 08/15/19 20:37 08/16/19 01:15 O2 Saturation 96 % (92-99) Arterial Blood pH 7.34 (7.35-7.45) Arterial Blood pCO2 at Patient Temp 46 mmHg (35-46) Arterial Blood pO2 at Patient Temp 98 mmHg (65-108) Arterial Blood HCO3 24 mmol/L (21-28) Arterial Blood Base Excess -2 mmol/L (-3-3) FiO2 3.5l n.c. White Blood Count 6.1 x10^3/uL (4.0-11.0) 3.5 x10^3/uL (4.0-11.0) Red Blood Count 3.87 x10^6/uL (3.50-5.40) 3.43 x10^6/uL (3.50-5.40) Hemoglobin 12.2 g/dL (12.0-15.5) 10.8 g/dL (12.0-15.5) Hematocrit 39.0 % (36.0-47.0) 35.1 % (36.0-47.0) Mean Corpuscular Volume 101 fL (79-100) 102 fL (79-100) Mean Corpuscular Hemoglobin 32 pg (25-35) 31 pg (25-35) Mean Corpuscular Hemoglobin Concent 31 g/dL (31-37) 31 g/dL (31-37) Red Cell Distribution Width 16.9 % (11.5-14.5) 17.0 % (11.5-14.5) Platelet Count 227 x10^3/uL (140-400) 220 x10^3/uL (140-400) Neutrophils (%) (Auto) 79 % (31-73) 91 % (31-73) Lymphocytes (%) (Auto) 7 % (24-48) 6 % (24-48) Monocytes (%) (Auto) 11 % (0-9) 3 % (0-9) Eosinophils (%) (Auto) 2 % (0-3) 0 % (0-3) Basophils (%) (Auto) 1 % (0-3) 0 % (0-3) Neutrophils # (Auto) 4.8 x10^3/uL (1.8-7.7) 3.2 x10^3/uL (1.8-7.7) Lymphocytes # (Auto) 0.4 x10^3/uL (1.0-4.8) 0.2 x10^3/uL (1.0-4.8) Monocytes # (Auto) 0.7 x10^3/uL (0.0-1.1) 0.1 x10^3/uL (0.0-1.1) Eosinophils # (Auto) 0.1 x10^3/uL (0.0-0.7) 0.0 x10^3/uL (0.0-0.7) Basophils # (Auto) 0.1 x10^3/uL (0.0-0.2) 0.0 x10^3/uL (0.0-0.2) Sodium Level 141 mmol/L (136-145) 136 mmol/L (136-145) Potassium Level 4.9 mmol/L (3.5-5.1) 6.6 mmol/L (3.5-5.1) Chloride Level 102 mmol/L (98-107) 104 mmol/L (98-107) Carbon Dioxide Level 26 mmol/L (21-32) 21 mmol/L (21-32) Anion Gap 13 (6-14) 11 (6-14) Blood Urea Nitrogen 34 mg/dL (7-20) 39 mg/dL (7-20) Creatinine 8.1 mg/dL (0.6-1.0) 8.9 mg/dL (0.6-1.0) Estimated GFR (Cockcroft-Gault) 5.9 5.2 BUN/Creatinine Ratio 4 (6-20) Glucose Level 130 mg/dL (70-99) 276 mg/dL (70-99) Hemoglobin A1c 4.5 % (4.8-5.6) Calcium Level 8.0 mg/dL (8.5-10.1) 7.3 mg/dL (8.5-10.1) Total Bilirubin 0.6 mg/dL (0.2-1.0) Aspartate Amino Transf (AST/SGOT) 27 U/L (15-37) Alanine Aminotransferase (ALT/SGPT) 16 U/L (14-59) Alkaline Phosphatase 111 U/L (46-116) Troponin I Quantitative 0.081 ng/mL (0.000-0.055) 0.072 ng/mL (0.000-0.055) GG-Wng-[id number]-Type Natriuretic Peptide > 23702 pg/mL (0-449) Total Protein 7.0 g/dL (6.4-8.2) Albumin 3.2 g/dL (3.4-5.0) Albumin/Globulin Ratio 0.8 (1.0-1.7) Procalcitonin 4.51 ng/mL (0.00-0.10) Glucose (Fingerstick) 180 mg/dL (70-99) Segmented Neutrophils % 94 % (35-66) Band Neutrophils % 2 % (0-9) Lymphocytes % 4 % (24-48) Platelet Estimate Adequate (ADEQUATE) Test 08/16/19 14:15 08/16/19 17:06 08/16/19 21:10 08/17/19 06:56 Coronavirus (COVID-19)(PCR) See separate report Glucose (Fingerstick) 161 mg/dL (70-99) 119 mg/dL (70-99) 86 mg/dL (70-99) Laboratory Tests Test 08/16/19 14:15 08/16/19 17:06 08/16/19 21:10 08/17/19 06:56 Coronavirus (COVID-19)(PCR) See separate report Glucose (Fingerstick) 161 mg/dL (70-99) 119 mg/dL (70-99) 86 mg/dL (70-99) Medications Current Medications Methylprednisolone Sodium Succinate (SOLU-Medrol 125MG VIAL) 125 mg 1X ONCE IV Last administered on 08/15/19at 18:04; Start 08/15/19 at 18:00; Stop 08/15/19 at 18:01; Status DC Doxycycline Hyclate 100 mg/ Dextrose 100 ml @ 50 mls/hr 1X ONCE IV Last administered on 08/15/19at 18:25; Start 08/15/19 at 18:00; Stop 08/15/19 at 19:59; Status DC Heparin Sodium (Porcine) (Heparin Sodium) 5,000 unit Q12HR SQ ; Start 08/15/19 at 21:00; Status UNV Sodium Chloride (Normal Saline Flush) 3 ml QSHIFT PRN IV AFTER MEDS AND BLOOD DRAWS; Start 08/15/19 at 18:45 Ondansetron HCl (Zofran) 4 mg PRN Q4HRS PRN IV NAUSEA/VOMITING; Start 08/15/19 at 18:45 Acetaminophen (Tylenol) 650 mg PRN Q4HRS PRN PO TEMP OVER 100.4F OR MILD PAIN; Start 08/15/19 at 18:45 Docusate Sodium (Colace) 100 mg PRN BID PRN PO CONSTIPATION; Start 08/15/19 at 18:45 Albuterol Sulfate (Ventolin Neb Soln) 2.5 mg PRN Q4HRS PRN NEB SHORTNESS OF BREATH Last administered on 08/16/19at 03:58; Start 08/15/19 at 18:45 Albuterol/ Ipratropium (Duoneb) 3 ml Q4HRS W/A NEB Last administered on 08/17/19at 07:37; Start 08/15/19 at 22:00 Guaifenesin (Robitussin) 200 mg PRN Q4HRS PRN PO COUGH; Start 08/15/19 at 18:45 Lorazepam (Ativan) 0.5 mg PRN Q4HRS PRN PO ANXIETY / AGITATION; Start 08/15/19 at 18:45 Albuterol Sulfate (Ventolin Neb Soln) 8.5 mg PRN Q6HRS PRN INH SHORTNESS OF BREATH; Start 08/15/19 at 18:45; Status UNV Amiodarone HCl (Cordarone) 200 mg DAILY PO ; Start 08/16/19 at 09:00; Stop 08/15/19 at 19:38; Status DC Apixaban (Eliquis) 5 mg BID PO Last administered on 08/15/19at 20:08; Start 08/15/19 at 21:00; Stop 08/16/19 at 12:42; Status DC Aspirin (Aspirin Chewable) 81 mg DAILY PO Last administered on 08/17/19at 08:39; Start 08/16/19 at 09:00 Atorvastatin Calcium (Lipitor) 40 mg HS PO Last administered on 08/16/19at 21:04; Start 08/15/19 at 21:00 Clopidogrel Bisulfate (Plavix) 75 mg DAILY PO Last administered on 08/17/19at 08 :39; Start 08/16/19 at 09:00 Diphenoxylate HCl/ Atropine (Lomotil) 1 tab PRN TID PRN PO DIARRHEA; Start 08/15/19 at 18:45 Hydroxyzine HCl (Atarax) 50 mg QMWF PO ; Start 08/16/19 at 16:00 Lisinopril (Prinivil) 20 mg DAILY PO ; Start 08/16/19 at 09:00; Stop 08/15/19 at 19:38; Status DC Metoprolol Succinate (Toprol Xl) 100 mg DAILY PO ; Start 08/16/19 at 09:00; Stop 08/15/19 at 19:38; Status DC Nitroglycerin (Nitrostat) 0.4 mg PRN Q5MIN PRN SL CHEST PAIN Last administered on 08/16/19at 11:43; Start 08/15/19 at 18:45 Non-Formulary Medication (Budesonide/ Formoterol Fumarate (Symbicort 160-4.5 Mcg Inhaler)) 2 puff BID IH ; Start 08/15/19 at 21:00; Status UNV Info (Anti-Coagulation Monitoring By Pharmacy) 1 each PRN DAILY PRN MC SEE COMMENTS; Start 08/15/19 at 19:00 Albuterol Sulfate (Ventolin Neb Soln) 2.5 mg RTQID NEB Last administered on 08/15/19at 20:29; Start 08/15/19 at 20:00; Stop 08/16/19 at 10:26; Status DC Budesonide (Pulmicort) 0.5 mg RTBID NEB Last administered on 08/16/19at 19:43; Start 08/15/19 at 20:00 Ondansetron HCl (Zofran) 4 mg PRN Q8HRS PRN IV NAUSEA/VOMITING; Start 08/15/19 at 19:00; Stop 08/16/19 at 18:59; Status DC Morphine Sulfate (Morphine Sulfate) 2 mg PRN Q2HR PRN IV PAIN; Start 08/15/19 at 19:00; Stop 08/16/19 at 18:59; Status DC Amiodarone HCl (Cordarone) 200 mg DAILY PO Last administered on 08/17/19at 08:40; Start 08/15/19 at 19:45 Lisinopril (Prinivil) 20 mg DAILY PO Last administered on 08/16/19at 07:00; Start 08/15/19 at 19:45; Stop 08/16/19 at 12:38; Status DC Metoprolol Succinate (Toprol Xl) 100 mg DAILY PO Last administered on 5/9/20at 08:41; Start 08/15/19 at 19:45 Doxycycline Hyclate (Vibra-Tab) 100 mg BID PO Last administered on 08/17/19at 08:39; Start 08/16/19 at 09:00 Triamcinolone Acetonide (Kenalog 0.1%) 1 keshawn BID TP ; Start 08/16/19 at 09:00; Stop 08/15/19 at 21:51; Status DC Triamcinolone Acetonide (Kenalog 0.1%) 1 keshawn BID TP Last administered on 08/17/19at 08:42; Start 08/15/19 at 22:00 Gabapentin (Neurontin) 300 mg QHS PO Last administered on 08/16/19at 21:04; Start 08/15/19 at 22:30 Sodium Chloride 1,000 ml @ 1,000 mls/hr Q1H PRN IV hypotension; Start 08/16/19 at 07:51; Stop 08/16/19 at 13:50; Status DC Acetaminophen (Tylenol) 500 mg 1X PRN PRN PO MILD PAIN / TEMP > 100.3'F; Start 08/16/19 at 08:00; Stop 08/17/19 at 07:59; Status DC Diphenhydramine HCl (Benadryl) 25 mg 1X PRN PRN IV ITCHING; Start 08/16/19 at 08:00; Stop 08/17/19 at 07:59; Status DC Diphenhydramine HCl (Benadryl) 25 mg 1X PRN PRN IV ITCHING; Start 08/16/19 at 08:00; Stop 08/17/19 at 07:59; Status DC Sodium Chloride 1,000 ml @ 400 mls/hr Q2H30M PRN IV PATENCY; Start 08/16/19 at 07:51; Stop 08/16/19 at 19:50; Status DC Info (PHARMACY MONITORING -- do not chart) 1 each PRN DAILY PRN MC SEE COMMENTS; Start 08/16/19 at 08:00 Lidocaine HCl (Xylocaine-Mpf 1% 2ml Vial) 2 ml STK-MED ONCE .ROUTE ; Start 08/16/19 at 08:58; Stop 08/16/19 at 08:58; Status DC Apixaban (Eliquis) 2.5 mg BID PO Last administered on 08/17/19at 08:39; Start 08/16/19 at 21:00 Lactobacillus Rhamnosus (Culturelle) 1 cap BID PO Last administered on 08/17/19at 08:39; Start 08/16/19 at 21:00 Dextrose (Dextrose 50%-Water Syringe) 12.5 gm PRN Q15MIN PRN IV SEE COMMENTS; Start 08/16/19 at 16:45 Active Scripts Active Nitrostat (Nitroglycerin) 0.4 Mg Tab.subl 0.4 Mg SL PRN Q5MIN PRN Ondansetron Odt (Ondansetron) 4 Mg Tab.rapdis 1 Tab PO PRN Q6-8HRS PRN Lomotil Tablet (Diphenoxylate Hcl/Atropine) 1 Each Tablet 1 Tab PO TID PRN Amiodarone Hcl 200 Mg Tablet 200 Mg PO DAILY 30 Days Eliquis (Apixaban) 5 Mg Tablet 5 Mg PO BID MDD ` Reported Triamcinolone Acetonide 0.1% Oint (Triamcinolone Acetonide) 15 Gm Oint...g. 1 Keshawn TP BID MIX WITH EUCERIN DIRECTED BY PHYSICIAN Metoprolol Succinate ( Xl ) (Metoprolol Succinate) 100 Mg Tab.er.24h 1 Tab PO DAILY Lisinopril 20 Mg Tablet 1 Tab PO DAILY Clopidogrel (Clopidogrel Bisulfate) 75 Mg Tablet 75 Mg PO DAILY Aspirin 81 Mg Tab.chew 1 Tab PO DAILY Lipitor (Atorvastatin Calcium) 40 Mg Tablet 40 Mg PO HS Furosemide 40 Mg Tablet 40 Mg PO DAILY Symbicort 160-4.5 Mcg Inhaler (Budesonide/Formoterol Fumarate) 10.2 Gm Hfa.aer.ad 2 Puff IH BID Proair Hfa Inhaler (Albuterol Sulfate) 8.5 Gm Hfa.aer.ad 1 Puff INH PRN Q6HRS PRN Hydroxyzine Hcl 25 Mg Tablet 50 Mg PO QMWF Vitals/I & O Vital Sign - Last 24 Hours 08/16/19 08/16/19 08/16/19 08/16/19 11:43 13:26 15:00 15:29 Temp 97.8 97.8 Pulse 58 69 66 Resp 20 B/P (MAP) 157/61 151/74 159/72 (101) Pulse Ox 95 99 O2 Delivery Nasal Cannula Nasal Cannula O2 Flow Rate 3.0 3.0 5/8/20 5/8/20 5/8/20 5/8/20 19:44 19:45 19:58 20:00 Temp 98.1 98.1 Pulse 60 Resp 20 B/P (MAP) 139/57 (84) Pulse Ox 98 98 100 O2 Delivery Nasal Cannula Nasal Cannula Nasal Cannula Nasal Cannula O2 Flow Rate 3.0 3.0 3.0 3.0 08/16/19 08/17/19 08/17/19 08/17/19 22:30 02:54 06:26 07:40 Temp 98.0 97.5 97.8 98.0 97.5 97.8 Pulse 64 61 54 Resp 20 20 20 B/P (MAP) 136/46 (76) 105/52 (69) 141/47 (78) Pulse Ox 97 91 100 92 O2 Delivery Nasal Cannula Nasal Cannula Nasal Cannula Nasal Cannula O2 Flow Rate 3.0 3.0 3.0 3.0 08/17/19 08/17/19 08/17/19 07:42 08:40 08:41 Pulse 54 54 B/P (MAP) 141/47 141/47 Pulse Ox 92 O2 Delivery Nasal Cannula O2 Flow Rate 3.0 Intake and Output 08/16/19 08/16/19 08/17/19 15:00 23:00 07:00 Intake Total 350 ml 250 ml Balance 350 ml 250 ml SUDHEER ROBLES MD August 17, 2019 10:09
[2019-08-17 10:11] VITALS: BP 118/68
--- NOTE | 2019-08-17 10:37 | NUR ---
IP: Pt is COVID negative.
[2019-08-17 13:00] LABS: BASO % 0 % (0-3); EOS # 0.1 x10^3/uL (0.0-0.7); EOS % 1 % (0-3); HEMATOCRIT 33.8 % (36.0-47.0); HEMOGLOBIN 10.5 g/dL (12.0-15.5); LYMPH # 0.6 x10^3/uL (1.0-4.8); LYMPH % 11 % (24-48); MEAN CORPUSCULAR HEMOGLOBIN 32 pg (25-35); MEAN CORPUSCULAR HGB CONC 31 g/dL (31-37); MEAN CORPUSCULAR VOLUME 102 fL (79-100); MONO # 0.6 x10^3/uL (0.0-1.1); MONO % 10 % (0-9); NEUT # 4.4 x10^3/uL (1.8-7.7); NEUT % 78 % (31-73); PLATELET COUNT 214 x10^3/uL (140-400); RED BLOOD COUNT 3.33 x10^6/uL (3.50-5.40); RED CELL DISTRIBUTION WIDTH 17.5 % (11.5-14.5); WHITE BLOOD COUNT 5.6 x10^3/uL (4.0-11.0)
[2019-08-17 13:14] LABS: ALBUMIN 2.8 g/dL (3.4-5.0); ALBUMIN/GLOBULIN RATIO 0.9 (1.0-1.7); CALCIUM 7.2 mg/dL (8.5-10.1); CREATININE 6.4 mg/dL (0.6-1.0); GFR 7.7; POTASSIUM 4.2 mmol/L (3.5-5.1); TOTAL BILIRUBIN 0.4 mg/dL (0.2-1.0); TOTAL PROTEIN 5.8 g/dL (6.4-8.2)
[2019-08-17 14:13] VITALS: BP 131/63
--- NOTE | 2019-08-17 15:53 | PDOC3 ---
Discharge Summary Date of Admission: August 15, 2019 Date of Discharge: August 17, 2019 Admitting Diagnosis comment: discharge dx Acute COPD exacerbation Acute exacerbation of chronic diastolic dysfunction hyperkalemia, severe, resolved ESRD ON DIALYSIS Last ECHO April 2019 <Conclusion> The left ventricular systolic function is normal. The Ejection Fraction is 60%. There is normal LV segmental wall motion. Transmitral Doppler flow pattern is Grade I-abnormal relaxation pattern. Trace mitral regurgitation. Mild tricuspid regurgitation. There is moderate-severe pulmonary hypertension. PA pressure was estimated at 65 mmHg. There is no evidence of significant pericardial effusion. Signed by : Jeb Davis, Electronically Approved : 04/25/2019 16:59:54 Acute Zoster attack ESRD on HD Plan: resume home medications will start broad spectrum antibiotics empirically Solumedrol continue Gabapentin Nephrology consultation Monitor respiratory status reassess in the am CBC, COMP HEALTH PENDING DVT prophylaxis: Apixaban d/c planning 36 min D/W RT Vitals Vitals Vital Signs Date Time Temp Pulse Resp B/P (MAP) Pulse Ox O2 Delivery O2 Flow Rate FiO2 08/17/19 08:41 54 141/47 08/17/19 07:42 92 Nasal Cannula 3.0 08/17/19 06:26 97.8 20 97.8 Physical Exam General: Alert, Oriented X3, Cooperative, No acute distress Heart: Regular rate (SR), Other (distant heart sounds) Lungs: Clear Abdomen: Soft, No tenderness Extremities: No cyanosis, No edema Skin: No significant lesion, Other (reported shingles in back not observed) FINAL DIAGNOSIS Problems Medical Problems: (1) COPD with acute exacerbation Status: Acute (2) Dyspnea Status: Acute Brief Hospital Course Ms. Banks is a 73 old [sex] who presented with [severe hyperkalemia ] CONDITION AT DISCHARGE: Improved Discharge Medications Current Medications Methylprednisolone Sodium Succinate (SOLU-Medrol 125MG VIAL) 125 mg 1X ONCE IV Last administered on 08/15/19at 18:04; Start 08/15/19 at 18:00; Stop 08/15/19 at 18:01; Status DC Doxycycline Hyclate 100 mg/ Dextrose 100 ml @ 50 mls/hr 1X ONCE IV Last administered on 08/15/19at 18:25; Start 08/15/19 at 18:00; Stop 08/15/19 at 19:59; Status DC Heparin Sodium (Porcine) (Heparin Sodium) 5,000 unit Q12HR SQ ; Start 08/15/19 at 21:00; Status UNV Sodium Chloride (Normal Saline Flush) 3 ml QSHIFT PRN IV AFTER MEDS AND BLOOD DRAWS; Start 08/15/19 at 18:45 Ondansetron HCl (Zofran) 4 mg PRN Q4HRS PRN IV NAUSEA/VOMITING; Start 08/15/19 at 18:45 Acetaminophen (Tylenol) 650 mg PRN Q4HRS PRN PO TEMP OVER 100.4F OR MILD PAIN; Start 08/15/19 at 18:45 Docusate Sodium (Colace) 100 mg PRN BID PRN PO CONSTIPATION; Start 08/15/19 at 18:45 Albuterol Sulfate (Ventolin Neb Soln) 2.5 mg PRN Q4HRS PRN NEB SHORTNESS OF BREATH Last administered on 08/16/19at 03:58; Start 08/15/19 at 18:45 Albuterol/ Ipratropium (Duoneb) 3 ml Q4HRS W/A NEB Last administered on 08/17/19at 15:09; Start 08/15/19 at 22:00 Guaifenesin (Robitussin) 200 mg PRN Q4HRS PRN PO COUGH; Start 08/15/19 at 18:45 Lorazepam (Ativan) 0.5 mg PRN Q4HRS PRN PO ANXIETY / AGITATION; Start 08/15/19 at 18:45 Albuterol Sulfate (Ventolin Neb Soln) 8.5 mg PRN Q6HRS PRN INH SHORTNESS OF BREATH; Start 08/15/19 at 18:45; Status UNV Amiodarone HCl (Cordarone) 200 mg DAILY PO ; Start 08/16/19 at 09:00; Stop 08/15/19 at 19:38; Status DC Apixaban (Eliquis) 5 mg BID PO Last administered on 08/15/19at 20:08; Start 08/15/19 at 21:00; Stop 08/16/19 at 12:42; Status DC Aspirin (Aspirin Chewable) 81 mg DAILY PO Last administered on 08/17/19at 08:39; Start 08/16/19 at 09:00 Atorvastatin Calcium (Lipitor) 40 mg HS PO Last administered on 08/16/19at 21:04; Start 08/15/19 at 21:00 Clopidogrel Bisulfate (Plavix) 75 mg DAILY PO Last administered on 08/17/19at 08:39; Start 08/16/19 at 09:00 Diphenoxylate HCl/ Atropine (Lomotil) 1 tab PRN TID PRN PO DIARRHEA; Start 08/15/19 at 18:45 Hydroxyzine HCl (Atarax) 50 mg QMWF PO ; Start 08/16/19 at 16:00 Lisinopril (Prinivil) 20 mg DAILY PO ; Start 08/16/19 at 09:00; Stop 08/15/19 at 19:38; Status DC Metoprolol Succinate (Toprol Xl) 100 mg DAILY PO ; Start 08/16/19 at 09:00; Stop 08/15/19 at 19:38; Status DC Nitroglycerin (Nitrostat) 0.4 mg PRN Q5MIN PRN SL CHEST PAIN Last administered on 08/16/19at 11:43; Start 08/15/19 at 18:45 Non-Formulary Medication (Budesonide/ Formoterol Fumarate (Symbicort 160-4.5 Mcg Inhaler)) 2 puff BID IH ; Start 08/15/19 at 21:00; Status UNV Info (Anti-Coagulation Monitoring By Pharmacy) 1 each PRN DAILY PRN MC SEE COMMENTS; Start 08/15/19 at 19:00 Albuterol Sulfate (Ventolin Neb Soln) 2.5 mg RTQID NEB Last administered on 08/15/19at 20:29; Start 08/15/19 at 20:00; Stop 08/16/19 at 10:26; Status DC Budesonide (Pulmicort) 0.5 mg RTBID NEB Last administered on 08/17/19at 07:45; Start 08/15/19 at 20:00 Ondansetron HCl (Zofran) 4 mg PRN Q8HRS PRN IV NAUSEA/VOMITING; Start 08/15/19 at 19:00; Stop 08/16/19 at 18:59; Status DC Morphine Sulfate (Morphine Sulfate) 2 mg PRN Q2HR PRN IV PAIN; Start 08/15/19 at 19:00; Stop 08/16/19 at 18:59; Status DC Amiodarone HCl (Cordarone) 200 mg DAILY PO Last administered on 08/17/19at 08:40; Start 08/15/19 at 19:45 Lisinopril (Prinivil) 20 mg DAILY PO Last administered on 08/16/19at 07:00; Start 08/15/19 at 19:45; Stop 08/16/19 at 12:38; Status DC Metoprolol Succinate (Toprol Xl) 100 mg DAILY PO Last administered on 08/17/19at 08:41; Start 08/15/19 at 19:45 Doxycycline Hyclate (Vibra-Tab) 100 mg BID PO Last administered on 08/17/19at 08:39; Start 08/16/19 at 09:00 Triamcinolone Acetonide (Kenalog 0.1%) 1 keshawn BID TP ; Start 08/16/19 at 09:00; Stop 08/15/19 at 21:51; Status DC Triamcinolone Acetonide (Kenalog 0.1%) 1 keshawn BID TP Last administered on 08/17/19at 08:42; Start 08/15/19 at 22:00 Gabapentin (Neurontin) 300 mg QHS PO Last administered on 08/16/19at 21:04; Star t 08/15/19 at 22:30 Sodium Chloride 1,000 ml @ 1,000 mls/hr Q1H PRN IV hypotension; Start 08/16/19 at 07:51; Stop 08/16/19 at 13:50; Status DC Acetaminophen (Tylenol) 500 mg 1X PRN PRN PO MILD PAIN / TEMP > 100.3'F; Start 08/16/19 at 08:00; Stop 08/17/19 at 07:59; Status DC Diphenhydramine HCl (Benadryl) 25 mg 1X PRN PRN IV ITCHING; Start 08/16/19 at 08:00; Stop 08/17/19 at 07:59; Status DC Diphenhydramine HCl (Benadryl) 25 mg 1X PRN PRN IV ITCHING; Start 08/16/19 at 08:00; Stop 08/17/19 at 07:59; Status DC Sodium Chloride 1,000 ml @ 400 mls/hr Q2H30M PRN IV PATENCY; Start 08/16/19 at 07:51; Stop 08/16/19 at 19:50; Status DC Info (PHARMACY MONITORING -- do not chart) 1 each PRN DAILY PRN MC SEE COMMENTS; Start 08/16/19 at 08:00 Lidocaine HCl (Xylocaine-Mpf 1% 2ml Vial) 2 ml STK-MED ONCE .ROUTE ; Start 08/16/19 at 08:58; Stop 08/16/19 at 08:58; Status DC Apixaban (Eliquis) 2.5 mg BID PO Last administered on 08/17/19at 08:39; Start 08/16/19 at 21:00 Lactobacillus Rhamnosus (Culturelle) 1 cap BID PO Last administered on 08/17/19at 08:39; Start 08/16/19 at 21:00 Dextrose (Dextrose 50%-Water Syringe) 12.5 gm PRN Q15MIN PRN IV SEE COMMENTS; Start 08/16/19 at 16:45 Active Scripts Active Nitrostat (Nitroglycerin) 0.4 Mg Tab.subl 0.4 Mg SL PRN Q5MIN PRN Ondansetron Odt (Ondansetron) 4 Mg Tab.rapdis 1 Tab PO PRN Q6-8HRS PRN Lomotil Tablet (Diphenoxylate Hcl/Atropine) 1 Each Tablet 1 Tab PO TID PRN Amiodarone Hcl 200 Mg Tablet 200 Mg PO DAILY 30 Days Eliquis (Apixaban) 5 Mg Tablet 5 Mg PO BID MDD ` Reported Triamcinolone Acetonide 0.1% Oint (Triamcinolone Acetonide) 15 Gm Oint...g. 1 Keshawn TP BID MIX WITH EUCERIN DIRECTED BY PHYSICIAN Metoprolol Succinate ( Xl ) (Metoprolol Succinate) 100 Mg Tab.er.24h 1 Tab PO DA VIN Lisinopril 20 Mg Tablet 1 Tab PO DAILY Clopidogrel (Clopidogrel Bisulfate) 75 Mg Tablet 75 Mg PO DAILY Aspirin 81 Mg Tab.chew 1 Tab PO DAILY Lipitor (Atorvastatin Calcium) 40 Mg Tablet 40 Mg PO HS Furosemide 40 Mg Tablet 40 Mg PO DAILY Symbicort 160-4.5 Mcg Inhaler (Budesonide/Formoterol Fumarate) 10.2 Gm Hfa.aer.ad 2 Puff IH BID Proair Hfa Inhaler (Albuterol Sulfate) 8.5 Gm Hfa.aer.ad 1 Puff INH PRN Q6HRS PRN Hydroxyzine Hcl 25 Mg Tablet 50 Mg PO QMWF Vital Signs Vital Signs Date Time Temp Pulse Resp B/P (MAP) Pulse Ox O2 Delivery O2 Flow Rate FiO2 08/17/19 15:10 Nasal Cannula 3.0 08/17/19 14:13 98.0 64 20 131/63 (85) 98 98.0 Labs Laboratory Tests Test 08/15/19 17:15 08/15/19 17:30 08/15/19 20:37 08/16/19 01:15 O2 Saturation 96 % (92-99) Arterial Blood pH 7.34 (7.35-7.45) Arterial Blood pCO2 at Patient Temp 46 mmHg (35-46) Arterial Blood pO2 at Patient Temp 98 mmHg (65-108) Arterial Blood HCO3 24 mmol/L (21-28) Arterial Blood Base Excess -2 mmol/L (-3-3) FiO2 3.5l n.c. White Blood Count 6.1 x10^3/uL (4.0-11.0) 3.5 x10^3/uL (4.0-11.0) Red Blood Count 3.87 x10^6/uL (3.50-5.40) 3.43 x10^6/uL (3.50-5.40) Hemoglobin 12.2 g/dL (12.0-15.5) 10.8 g/dL (12.0-15.5) Hematocrit 39.0 % (36.0-47.0) 35.1 % (36.0-47.0) Mean Corpuscular Volume 101 fL (79-100) 102 fL (79-100) Mean Corpuscular Hemoglobin 32 pg (25-35) 31 pg (25-35) Mean Corpuscular Hemoglobin Concent 31 g/dL (31-37) 31 g/dL (31-37) Red Cell Distribution Width 16.9 % (11.5-14.5) 17.0 % (11.5-14.5) Platelet Count 227 x10^3/uL (140-400) 220 x10^3/uL (140-400) Neutrophils (%) (Auto) 79 % (31-73) 91 % (31-73) Lymphocytes (%) (Auto) 7 % (24-48) 6 % (24-48) Monocytes (%) (Auto) 11 % (0-9) 3 % (0-9) Eosinophils (%) (Auto) 2 % (0-3) 0 % (0-3) Basophils (%) (Auto) 1 % (0-3) 0 % (0-3) Neutrophils # (Auto) 4.8 x10^3/uL (1.8-7.7) 3.2 x10^3/uL (1.8-7.7) Lymphocytes # (Auto) 0.4 x10^3/uL (1.0-4.8) 0.2 x10^3/uL (1.0-4.8) Monocytes # (Auto) 0.7 x10^3/uL (0.0-1.1) 0.1 x10^3/uL (0.0-1.1) Eosinophils # (Auto) 0.1 x10^3/uL (0.0-0.7) 0.0 x10^3/uL (0.0-0.7) Basophils # (Auto) 0.1 x10^3/uL (0.0-0.2) 0.0 x10^3/uL (0.0-0.2) Sodium Level 141 mmol/L (136-145) 136 mmol/L (136-145) Potassium Level 4.9 mmol/L (3.5-5.1) 6.6 mmol/L (3.5-5.1) Chloride Level 102 mmol/L (98-107) 104 mmol/L (98-107) Carbon Dioxide Level 26 mmol/L (21-32) 21 mmol/L (21-32) Anion Gap 13 (6-14) 11 (6-14) Blood Urea Nitrogen 34 mg/dL (7-20) 39 mg/dL (7-20) Creatinine 8.1 mg/dL (0.6-1.0) 8.9 mg/dL (0.6-1.0) Estimated GFR (Cockcroft-Gault) 5.9 5.2 BUN/Creatinine Ratio 4 (6-20) Glucose Level 130 mg/dL (70-99) 276 mg/dL (70-99) Hemoglobin A1c 4.5 % (4.8-5.6) Calcium Level 8.0 mg/dL (8.5-10.1) 7.3 mg/dL (8.5-10.1) Total Bilirubin 0.6 mg/dL (0.2-1.0) Aspartate Amino Transf (AST/SGOT) 27 U/L (15-37) Alanine Aminotransferase (ALT/SGPT) 16 U/L (14-59) Alkaline Phosphatase 111 U/L (46-116) Troponin I Quantitative 0.081 ng/mL (0.000-0.055) 0.072 ng/mL (0.000-0.055) NH-Fdr-I-Type Natriuretic Peptide > 97881 pg/mL (0-449) Total Protein 7.0 g/dL (6.4-8.2) Albumin 3.2 g/dL (3.4-5.0) Albumin/Globulin Ratio 0.8 (1.0-1.7) Procalcitonin 4.51 ng/mL (0.00-0.10) Glucose (Fingerstick) 180 mg/dL (70-99) Segmented Neutrophils % 94 % (35-66) Band Neutrophils % 2 % (0-9) Lymphocytes % 4 % (24-48) Platelet Estimate Adequate (ADEQUATE) Test 08/16/19 14:15 08/16/19 17:06 08/16/19 21:10 08/17/19 06:56 Coronavirus (COVID-19)(PCR) See separate report Glucose (Fingerstick) 161 mg/dL (70-99) 119 mg/dL (70-99) 86 mg/dL (70-99) Test 08/17/19 11:17 08/17/19 12:35 Glucose (Fingerstick) 164 mg/dL (70-99) White Blood Count 5.6 x10^3/uL (4.0-11.0) Red Blood Count 3.33 x10^6/uL (3.50-5.40) Hemoglobin 10.5 g/dL (12.0-15.5) Hematocrit 33.8 % (36.0-47.0) Mean Corpuscular Volume 102 fL (79-100) Mean Corpuscular Hemoglobin 32 pg (25-35) Mean Corpuscular Hemoglobin Concent 31 g/dL (31-37) Red Cell Distribution Width 17.5 % (11.5-14.5) Platelet Count 214 x10^3/uL (140-400) Neutrophils (%) (Auto) 78 % (31-73) Lymphocytes (%) (Auto) 11 % (24-48) Monocytes (%) (Auto) 10 % (0-9) Eosinophils (%) (Auto) 1 % (0-3) Basophils (%) (Auto) 0 % (0-3) Neutrophils # (Auto) 4.4 x10^3/uL (1.8-7.7) Lymphocytes # (Auto) 0.6 x10^3/uL (1.0-4.8) Monocytes # (Auto) 0.6 x10^3/uL (0.0-1.1) Eosinophils # (Auto) 0.1 x10^3/uL (0.0-0.7) Basophils # (Auto) 0.0 x10^3/uL (0.0-0.2) Sodium Level 142 mmol/L (136-145) Potassium Level 4.2 mmol/L (3.5-5.1) Chloride Level 101 mmol/L (98-107) Carbon Dioxide Level 31 mmol/L (21-32) Anion Gap 10 (6-14) Blood Urea Nitrogen 38 mg/dL (7-20) Creatinine 6.4 mg/dL (0.6-1.0) Estimated GFR (Cockcroft-Gault) 7.7 BUN/Creatinine Ratio 6 (6-20) Glucose Level 141 mg/dL (70-99) Calcium Level 7.2 mg/dL (8.5-10.1) Total Bilirubin 0.4 mg/dL (0.2-1.0) Aspartate Amino Transf (AST/SGOT) 20 U/L (15-37) Alanine Aminotransferase (ALT/SGPT) 15 U/L (14-59) Alkaline Phosphatase 91 U/L (46-116) Total Protein 5.8 g/dL (6.4-8.2) Albumin 2.8 g/dL (3.4-5.0) Albumin/Globulin Ratio 0.9 (1.0-1.7) Laboratory Tests Test 08/16/19 17:06 08/16/19 21:10 08/17/19 06:56 08/17/19 11:17 Glucose (Fingerstick) 161 mg/dL (70-99) 119 mg/dL (70-99) 86 mg/dL (70-99) 164 mg/dL (70-99) Test 08/17/19 12:35 White Blood Count 5.6 x10^3/uL (4.0-11.0) Red Blood Count 3.33 x10^6/uL (3.50-5.40) Hemoglobin 10.5 g/dL (12.0-15.5) Hematocrit 33.8 % (36.0-47.0) Mean Corpuscular Volume 102 fL (79-100) Mean Corpuscular Hemoglobin 32 pg (25-35) Mean Corpuscular Hemoglobin Concent 31 g/dL (31-37) Red Cell Distribution Width 17.5 % (11.5-14.5) Platelet Count 214 x10^3/uL (140-400) Neutrophils (%) (Auto) 78 % (31-73) Lymphocytes (%) (Auto) 11 % (24-48) Monocytes (%) (Auto) 10 % (0-9) Eosinophils (%) (Auto) 1 % (0-3) Basophils (%) (Auto) 0 % (0-3) Neutrophils # (Auto) 4.4 x10^3/uL (1.8-7.7) Lymphocytes # (Auto) 0.6 x10^3/uL (1.0-4.8) Monocytes # (Auto) 0.6 x10^3/uL (0.0-1.1) Eosinophils # (Auto) 0.1 x10^3/uL (0.0-0.7) Basophils # (Auto) 0.0 x10^3/uL (0.0-0.2) Sodium Level 142 mmol/L (136-145) Potassium Level 4.2 mmol/L (3.5-5.1) Chloride Level 101 mmol/L (98-107) Carbon Dioxide Level 31 mmol/L (21-32) Anion Gap 10 (6-14) Blood Urea Nitrogen 38 mg/dL (7-20) Creatinine 6.4 mg/dL (0.6-1.0) Estimated GFR (Cockcroft-Gault) 7.7 BUN/Creatinine Ratio 6 (6-20) Glucose Level 141 mg/dL (70-99) Calcium Level 7.2 mg/dL (8.5-10.1) Total Bilirubin 0.4 mg/dL (0.2-1.0) Aspartate Amino Transf (AST/SGOT) 20 U/L (15-37) Alanine Aminotransferase (ALT/SGPT) 15 U/L (14-59) Alkaline Phosphatase 91 U/L (46-116) Total Protein 5.8 g/dL (6.4-8.2) Albumin 2.8 g/dL (3.4-5.0) Albumin/Globulin Ratio 0.9 (1.0-1.7) Allergies Allergies Coded Allergies Type Severity Reaction Last Updated Verified Iodinated Contrast Media Allergy Intermediate 11/06/17 Yes Disposition/Orders: D/C to Home SUDHEER ROBLES MD August 17, 2019 15:53
[2019-08-17] MEDS ORDERED: GUAI100L12 PO (15:58)
[2019-08-17] MEDS ORDERED: DOCU-153 PO (15:58)
[2019-08-17] MEDS ORDERED: DOXY100T PO (15:58)
[2019-08-17] MEDS ORDERED: ACET325T9 PO (15:58)
[2019-08-17] MEDS ORDERED: GABA300C18 PO (15:58)
[2019-08-17] MEDS ORDERED: LACT1CAP19 PO (15:58)
--- NOTE | 2019-08-17 16:03 | DISCH ---
DISCHARGE INSTRUCTIONS Condition on Discharge Condition on Discharge: Stable Activity After Discharge Activity Instructions for Disc: Activity as tolerated Bathing Instructions: Shower-keep dressing dry Lifting Instructions after Dis: Do not lift >10 pounds Exercise Instruction after Dis: Progress as tolerated Driving Instructions after Dis: Do not drive, Do not drive today Weight Bearing Status after Di: As tolerated Diet after Discharge Diet after Discharge: Renal Dialysis Diet Texture: Regular Liquid Texture: Thin Liquid Swallowing Supervision: None needed Wound Incision Care Wound/Incision Care: Do not change dressing, Reinforce dressing PRN Wound Care Equipment: Dressings Checks after Discharge Checks after discharge: Check blood press - daily, Check blood sugar, ac/hs, Check your Temp as needed, Weigh Yourself Daily Contacting the DR. after DC Call your doctor for: If your condition worsens Treatment/Equipment after DC Adaptive Equipment Issued: None Discharge Respiratory Equipmen: SUDHEER Dewitt MD August 17, 2019 16:03
--- NOTE | 2019-08-17 17:36 | PDOC ---
CARDIOLOGY PROGRESS NOTE SUBJECTIVE: No issues overnight. Chest pain better. OBJECTIVE: Vital Signs/I&O: Vital Signs Date Time Temp Pulse Resp B/P (MAP) Pulse Ox O2 Delivery O2 Flow Rate FiO2 08/17/19 15:10 Nasal Cannula 3.0 08/17/19 14:13 98.0 64 20 131/63 (85) 98 98.0 I & O 08/16/19 08/16/19 08/17/19 15:00 23:00 07:00 Intake Total 350 ml 250 ml Balance 350 ml 250 ml Objective: a/o x 3. nad no new changes on exam. CURRENT MEDICATIONS: Current Medications Medications (Trade) Dose Ordered Sig/Eric Route PRN Reason Start Time Stop Time Status Last Admin Dose Admin Apixaban (Eliquis) 2.5 mg BID PO 08/16/19 21:00 08/17/19 08:39 Lactobacillus Rhamnosus (Culturelle) 1 cap BID PO 08/16/19 21:00 08/17/19 08:39 DIAGNOSTIC TESTING: labs/testing/tele reviewed Labs: Laboratory Tests 08/17/19 12:35 Laboratory Tests Test 08/16/19 21:10 08/17/19 06:56 08/17/19 11:17 08/17/19 12:35 Glucose (Fingerstick) 119 mg/dL (70-99) H 86 mg/dL (70-99) 164 mg/dL (70-99) H White Blood Count 5.6 x10^3/uL (4.0-11.0) Red Blood Count 3.33 x10^6/uL (3.50-5.40) L Hemoglobin 10.5 g/dL (12.0-15.5) L Hematocrit 33.8 % (36.0-47.0) L Mean Corpuscular Volume 102 fL (79-100) H Mean Corpuscular Hemoglobin 32 pg (25-35) Mean Corpuscular Hemoglobin Concent 31 g/dL (31-37) Red Cell Distribution Width 17.5 % (11.5-14.5) H Platelet Count 214 x10^3/uL (140-400) Neutrophils (%) (Auto) 78 % (31-73) H Lymphocytes (%) (Auto) 11 % (24-48) L Monocytes (%) (Auto) 10 % (0-9) H Eosinophils (%) (Auto) 1 % (0-3) Basophils (%) (Auto) 0 % (0-3) Neutrophils # (Auto) 4.4 x10^3/uL (1.8-7.7) Lymphocytes # (Auto) 0.6 x10^3/uL (1.0-4.8) L Monocytes # (Auto) 0.6 x10^3/uL (0.0-1.1) Eosinophils # (Auto) 0.1 x10^3/uL (0.0-0.7) Basophils # (Auto) 0.0 x10^3/uL (0.0-0.2) Sodium Level 142 mmol/L (136-145) Potassium Level 4.2 mmol/L (3.5-5.1) Chloride Level 101 mmol/L (98-107) Carbon Dioxide Level 31 mmol/L (21-32) Anion Gap 10 (6-14) Blood Urea Nitrogen 38 mg/dL (7-20) H Creatinine 6.4 mg/dL (0.6-1.0) H Estimated GFR (Cockcroft-Gault) 7.7 BUN/Creatinine Ratio 6 (6-20) Glucose Level 141 mg/dL (70-99) H Calcium Level 7.2 mg/dL (8.5-10.1) L Total Bilirubin 0.4 mg/dL (0.2-1.0) Aspartate Amino Transf (AST/SGOT) 20 U/L (15-37) Alkaline Phosphatase 91 U/L (46-116) Total Protein 5.8 g/dL (6.4-8.2) L Albumin 2.8 g/dL (3.4-5.0) L Albumin/Globulin Ratio 0.9 (1.0-1.7) L Test 08/17/19 16:15 Glucose (Fingerstick) 93 mg/dL (70-99) ASSESSMENT: 1. Acute on chronic respiratory failure with acute CHF, sleep apnea, COPD: O2 concentrator may have a malfunction. 2. Acute on chronic diastolic CHF: multifactorial with sleep apnea, COPD, uncontrolled HTN, appears compensated 3. CAD s/p PCI/stent to the RCA: Cath 06/2018 with with non-obstructive CAD involving RCA stent. Clinically stable. 4. Hx of NICM: recovered with recent EF at 60% 5. HTN urgency: due to missed meds, improving 6. Mild troponin elevation; peak 0.08, type 2 demand mediated as above. EKG SR with chronic RBBB. No CP 7. PAFIB; maintaining SR 8. ESRD with hyperkalemia 9. PENNY: intolerant to CPAP 10. DM2/HLP 11. Metabolic/hypertensive/hypoxic encepgalopathy 12. Reported recent back shingles: Defer to PCP PLAN: 1. Doing better with BP control. No new pain. -OK to DC with f/u in the office. Thanks. RAMON VALLECILLO MD August 17, 2019 17:36
--- NOTE | 2019-08-17 18:05 | NUR ---
Discharge Note: WANDA PRABHAKAR [address] [place] [address] Discharge instructions and discharge home medications reviewed with Patient and a copy given. All questions have been answered and understanding verbalized. The following instructions and handouts were given: COPD exacerbation Discontinued IV line Patient discharged to home with self care via wheelchair
== END 2019-08-17 19:10 | disposition home or self-care (01) | DRG 189 ==
LOC: ER 17:09 → 2 NORTH 18:00
PROVIDERS: ADMIT Internal Medicine; ATTEND Internal Medicine
PROC: 5A1D70Z Performance of Urinary Filtration, Intermittent, Less than 6 Hours Per Day (ICD-10-PCS; principal; 2019-08-16)
DX: J96.21 Acute and chronic respiratory failure with hypoxia (principal); I50.33 Acute on chronic diastolic (congestive) heart failure; N18.6 End stage renal disease; G93.41 Metabolic encephalopathy; I13.2 Hypertensive heart and chronic kidney disease with heart failure and with stage 5 chronic kidney disease, or end stage renal disease; J44.1 Chronic obstructive pulmonary disease with (acute) exacerbation; I42.8 Other cardiomyopathies; E87.5 Hyperkalemia; E11.22 Type 2 diabetes mellitus with diabetic chronic kidney disease; B02.9 Zoster without complications; E11.51 Type 2 diabetes mellitus with diabetic peripheral angiopathy without gangrene; E78.00 Pure hypercholesterolemia, unspecified; E78.5 Hyperlipidemia, unspecified; G47.33 Obstructive sleep apnea (adult) (pediatric); I16.0 Hypertensive urgency; I25.10 Atherosclerotic heart disease of native coronary artery without angina pectoris; I27.20 Pulmonary hypertension, unspecified; I45.10 Unspecified right bundle-branch block; I48.0 Paroxysmal atrial fibrillation; Z82.49 Family history of ischemic heart disease and other diseases of the circulatory system; Z83.3 Family history of diabetes mellitus; Z86.79 Personal history of other diseases of the circulatory system; Z87.891 Personal history of nicotine dependence; Z95.5 Presence of coronary angioplasty implant and graft; Z98.62 Peripheral vascular angioplasty status; Z99.2 Dependence on renal dialysis; Z99.81 Dependence on supplemental oxygen; E21.3 Hyperparathyroidism, unspecified; F41.9 Anxiety disorder, unspecified; K21.0 Gastro-esophageal reflux disease with esophagitis; Z20.828 Contact with and (suspected) exposure to other viral communicable diseases
CPT/HCPCS: 36415; 36600; 71045; 80048; 80053; 82805; 82962; 83036; 83880; 84145; 84484; 85007; 85025; 87635; 93005; 94640; 94760; 96365; 96375; 99285; J2930; J3490; J7060; G0378; J7613; J7626

== ENCOUNTER → 2019-09-18 | Outpatient (CLI) | payer MEDICARE ==
[~2019-09-18] MED LIST changes: +ACET325T9 PO; +DOCU-153 PO; +DOXY100T PO; +GABA300C18 PO; +GUAI100L12 PO; +TRIA15OI TP
--- NOTE | 2019-09-18 14:22 | RAD ---
EXAM: Chest, 2 views. HISTORY: Dyspnea. COMPARISON: 08/15/2019 FINDINGS: 2 views of the chest are obtained. There is stable diffuse increased interstitial opacity. There is superimposed lingular and left lower lobe atelectasis or scarring. There is stable enlargement of the cardiac silhouette. There is stable hilar prominence. There is no pneumothorax or pleural effusion. IMPRESSION: Stable suspected diffuse interstitial infiltrate or chronic interstitial changes with superimposed lingular and left lower lobe atelectasis or scarring. Electronically signed by: Reina Diaz MD (09/18/2019 2:19 PM) [id number]
== END | disposition home or self-care (01) ==
LOC: RAD 13:42
PROVIDERS: ATTEND Internal Medicine Critical Care Medicine
DX: R06.00 Dyspnea, unspecified (principal); I51.7 Cardiomegaly
CPT/HCPCS: 71046

== ENCOUNTER → 2019-09-24 | Outpatient (CLI) | payer MEDICARE ==
[~2019-09-24] MED LIST changes: +CONTRAST GIVEN. MC PRN; +IOHEXOL 300 MG/ML 100ML VIAL. IV ONE; +diphenhydrAMINE HCL 25 MG CAPSULE PO ONE
[2019-09-24 09:19] LABS: GFR 5.9
== END | disposition home or self-care (01) ==
LOC: CT 09:59
PROVIDERS: ATTEND Internal Medicine
DX: R07.9 Chest pain, unspecified (principal); J44.9 Chronic obstructive pulmonary disease, unspecified; R04.2 Hemoptysis
CPT/HCPCS: 36415; 82565; 84520; Q0163

== ENCOUNTER 2019-10-09 11:53 | Emergency (ER) | payer MEDICARE ==
[~2019-10-09] VITALS: Ht 156.2 cm; Wt 62.3 kg
[~2019-10-09 11:53] MED LIST changes: -CONTRAST GIVEN. MC PRN; -IOHEXOL 300 MG/ML 100ML VIAL. IV ONE; -diphenhydrAMINE HCL 25 MG CAPSULE PO ONE
--- NOTE | 2019-10-09 12:29 | RAD ---
PORTABLE CHEST 1V 10/09/2019 12:08 PM INDICATION: Shortness of air COMPARISON: 09/18/2019 TECHNIQUE: Portable frontal view of the chest is provided. FINDINGS: The cardiomediastinal silhouette is within normal limits. Mild chronic interstitial changes. No new airspace consolidation. There are no significant pleural effusions. There is no pulmonary vascular congestion. No pneumothorax. No suspicious osseous abnormality. IMPRESSION: Mild chronic interstitial changes without acute cardiopulmonary process. Electronically signed by: Chastity Dhaliwal MD (10/09/2019 12:27 PM) [id number]
[2019-10-09 12:43] LABS: BASO % 1 % (0-3); EOS # 0.1 x10^3/uL (0.0-0.7); EOS % 2 % (0-3); HEMATOCRIT 42.2 % (36.0-47.0); HEMOGLOBIN 13.1 g/dL (12.0-15.5); LYMPH # 0.8 x10^3/uL (1.0-4.8); LYMPH % 16 % (24-48); MEAN CORPUSCULAR HEMOGLOBIN 32 pg (25-35); MEAN CORPUSCULAR HGB CONC 31 g/dL (31-37); MEAN CORPUSCULAR VOLUME 103 fL (79-100); MONO # 0.5 x10^3/uL (0.0-1.1); MONO % 10 % (0-9); NEUT # 3.8 x10^3/uL (1.8-7.7); NEUT % 72 % (31-73); PLATELET COUNT 182 x10^3/uL (140-400); RED CELL DISTRIBUTION WIDTH 15.8 % (11.5-14.5); WHITE BLOOD COUNT 5.3 x10^3/uL (4.0-11.0)
[2019-10-09 12:57] LABS: PROTHROMBIN TIME PATIENT 12.3 SEC (11.7-14.0)
[2019-10-09 12:59] LABS: CALCIUM 7.7 mg/dL (8.5-10.1); CREATININE 3.8 mg/dL (0.6-1.0); POTASSIUM 3.6 mmol/L (3.5-5.1)
[2019-10-09 13:04] LABS: ALBUMIN 2.8 g/dL (3.4-5.0); ALBUMIN/GLOBULIN RATIO 0.8 (1.0-1.7); TOTAL BILIRUBIN 0.4 mg/dL (0.2-1.0); TOTAL PROTEIN 6.2 g/dL (6.4-8.2)
--- NOTE | 2019-10-09 13:25 | PHYS DOC ---
Past Medical History Past Medical History: CAD, CHF, COPD, Diabetes-Type II, DVT, High Cholesterol, Heart Disease, Hypertension, [place], Renal Disease, Renal Failure, Other Additional Past Medical Histor: dialysis MWF, O2 3LNC @ home, CPAP, abdominal aneursym, SHINGLES Past Surgical History: Angioplasty, Other Additional Past Surgical Histo: cardiac cath with stent placement, rotator cuff surgery,AV graft, cataract, Smoking Status: Former Smoker Alcohol Use: None Drug Use: None General Adult EDM: Chief Complaint: SHORTNESS OF BREATH HPI: HPI: 73-year-old female past medical history significant for COPD on 3 L nasal cannula, atrial fibrillation? vs upper extremity DVT on Coumadin, CAD, ESRD (had full HD this am), HTN, DM and HLD, resents to the ED from home with complaints of shortness of breath with associated dizziness and nausea after patient was cleaning in her bathroom with bleach and toilet bowl equipment cleaner and tester. Patient states the room was not well ventilated. EMS gave 1 aspirin, 1 sublingual nitro and 1 breathing treatment. Patient was 93% on room air and was placed on supplemental oxygen by EMS. Patient reports her shortness of breath lasted for approximately 30 minutes and is currently asymptomatic. [place] well this morning before and a fter dialysis today. ROS: No associated fever, chills, cough, dyspnea, emesis, syncope, headache, n erika stiffness, diaphoresis, chest pain or pressure, syncope, hemoptysis, mid emesis, abdominal pain, leg swelling or rash. Allergies: Allergies: Allergies Coded Allergies Type Severity Reaction Last Updated Verified Iodinated Contrast Media Allergy Intermediate 11/06/17 Yes Physical Exam: PE: Constitutional: Well developed, well nourished, no acute distress, non-toxic appearance. [] HENT: Normocephalic, atraumatic, bilateral external ears normal, oropharynx moist, no oral exudates, nose normal. [] Eyes: PERRLA, EOMI, conjunctiva normal, no discharge. [] Neck: Normal range of motion, no tenderness, supple, no stridor. [] Cardiovascular:Heart rate regular rhythm, no murmur [] Lungs & Thorax: Bilateral breath sounds clear to auscultation [] Abdomen: Bowel sounds normal, soft, no tenderness, no masses, no pulsatile masses. [] Skin: Warm, dry, no erythema, no rash. [] Back: No tenderness, no CVA tenderness. [] Extremities: No tenderness, no cyanosis, no clubbing, ROM intact, no edema. [] Neurologic: Alert and oriented X 3, normal motor function, normal sensory function, no focal deficits noted. [] Psychologic: Affect normal, judgement normal, mood normal. [] Current Patient Data: Labs: Laboratory Tests Test 10/09/19 12:18 10/09/19 12:35 White Blood Count 5.3 x10^3/uL (4.0-11.0) Red Blood Count 4.10 x10^6/uL (3.50-5.40) Hemoglobin 13.1 g/dL (12.0-15.5) Hematocrit 42.2 % (36.0-47.0) Mean Corpuscular Volume 103 fL (79-100) H Mean Corpuscular Hemoglobin 32 pg (25-35) Mean Corpuscular Hemoglobin Concent 31 g/dL (31-37) Red Cell Distribution Width 15.8 % (11.5-14.5) H Platelet Count 182 x10^3/uL (140-400) Neutrophils (%) (Auto) 72 % (31-73) Lymphocytes (%) (Auto) 16 % (24-48) L Monocytes (%) (Auto) 10 % (0-9) H Eosinophils (%) (Auto) 2 % (0-3) Basophils (%) (Auto) 1 % (0-3) Neutrophils # (Auto) 3.8 x10^3/uL (1.8-7.7) Lymphocytes # (Auto) 0.8 x10^3/uL (1.0-4.8) L Monocytes # (Auto) 0.5 x10^3/uL (0.0-1.1) Eosinophils # (Auto) 0.1 x10^3/uL (0.0-0.7) Basophils # (Auto) 0.0 x10^3/uL (0.0-0.2) Prothrombin Time 12.3 SEC (11.7-14.0) Prothrombin Time INR 1.0 (0.8-1.1) Sodium Level 140 mmol/L (136-145) Potassium Level 3.6 mmol/L (3.5-5.1) Chloride Level 104 mmol/L (98-107) Carbon Dioxide Level 26 mmol/L (21-32) Anion Gap 10 (6-14) Blood Urea Nitrogen 14 mg/dL (7-20) Creatinine 3.8 mg/dL (0.6-1.0) H Estimated GFR (Cockcroft-Gault) 14.0 BUN/Creatinine Ratio 4 (6-20) L Glucose Level 194 mg/dL (70-99) H Calcium Level 7.7 mg/dL (8.5-10.1) L Total Bilirubin 0.4 mg/dL (0.2-1.0) Aspartate Amino Transferase (AST) 25 U/L (15-37) Alanine Aminotransferase (ALT) 9 U/L (14-59) L Alkaline Phosphatase 141 U/L (46-116) H Troponin I Quantitative 0.054 ng/mL (0.000-0.055) Total Protein 6.2 g/dL (6.4-8.2) L Albumin 2.8 g/dL (3.4-5.0) L Albumin/Globulin Ratio 0.8 (1.0-1.7) L Laboratory Tests 10/09/19 12:18 Laboratory Tests 10/09/19 12:35 Vital Signs: Vital Signs Date Time Temp Pulse Resp B/P (MAP) Pulse Ox O2 Delivery O2 Flow Rate FiO2 10/09/19 11:53 97.8 103 20 212/98 (136) 97 Nasal Cannula 97.8 EKG: EKG: Sinus tachycardia 103 bpm, no axis deviation, T wave inversions V1 through V4, right bundle branch block, QTC 503, no ST elevations or ST depressions Compared with prior EKG Aug, 2019 with no new T wave inversions Radiology/Procedures: Radiology/Procedures: IMAGING REPORT Signed PATIENT: WANDA PRABHAKAR ACCOUNT: [id number] : 1945 LOCATION: ER AGE: 73 SEX: F EXAM STATUS: REG ER ORD. PHYSICIAN: EVAN CARRANZA DO REASON: soa PROCEDURE: PORTABLE CHEST 1V PORTABLE CHEST 1V 10/09/2019 12:08 PM INDICATION: Shortness of air COMPARISON: 09/18/2019 TECHNIQUE: Portable frontal view of the chest is provided. FINDINGS: The cardiomediastinal silhouette is within normal limits. Mild chronic interstitial changes. No new airspace consolidation. There are no significant pleural effusions. There is no pulmonary vascular congestion. No pneumothorax. No suspicious osseous abnormality. IMPRESSION: Mild chronic interstitial changes without acute cardiopulmonary process. Electronically signed by: Eugenie Olsen MD (10/09/2019 12:27 PM) [id number] DICTATED and SIGNED BY: EUGENIE OLSEN MD DATE: 10/09/19 1227 Impression: Concern for mild inhalation injury in a patient, who is now asymptomatic in the ED. Patient hemodynamically stable, labs unremarkable, chest x-ray with no acute process. I encourage patient to clean bathrooms with doors open with fans and windows open. Encourage urgent PMD follow-up. Strict ED return precautions for recurrence or worsening of symptoms. All of her questions were answered and she was stable at time of discharge. Course & Med Decision Making: Course & Med Decision Making Pertinent Labs and Imaging studies reviewed. (See chart for details) [] Presley Disclaimer: Dragjanet Disclaimer: This electronic medical record was generated, in whole or in part, using a voice recognition dictation system. Departure Departure Impression: Primary Impression: Inhalation of cleaning agent Additional Impressions: COPD (chronic obstructive pulmonary disease) Dyspnea Disposition: 01 HOME, SELF-CARE Condition: STABLE Referrals: BERTO TORRES MD (PCP) Patient Instructions: Shortness of Breath Justicifation of Admission Dx: Justifications for Admission: Justification of Admission Dx: N/A EVAN CARRANZA DO Oct 09, 2019 13:25
[2019-10-09 14:25] VITALS: BP 160/71
--- NOTE | 2019-10-09 15:55 | EKG ---
[facility] [address] [place] [address] Test Date: 2019-10-09 Test Time: 11:58:57 Pat Name: WANDA PRABHAKAR Department: Room: Gender: F [place] Man: : 1945 Requested By: EVAN CARRANZA Order Number: [id number] Reading MD: Measurements Intervals [place] Rate: 103 P: -90 NV: 94 QRS: -68 QRSD: 152 T: 77 QT: 382 QTc: 503 Interpretive Statements SUPRAVENTRICULAR RHYTHM COMPLEX(ES) WITH ABERRANT INTRAVENTRICULAR CONDUCTION ABNORMAL LEFT AXIS DEVIATION RIGHT BUNDLE BRANCH BLOCK RVH WITH REPOLARIZATION ABNORMALITY QRS(T) CONTOUR ABNORMALITY CONSISTENT WITH INFERIOR INFARCT POSSIBLY RECENT ABNORMAL ECG RI6.02 No previous ECG available for comparison
== END 2019-10-09 14:37 | disposition home or self-care (01) ==
LOC: ER 11:53
DX: J44.9 Chronic obstructive pulmonary disease, unspecified (principal); R06.00 Dyspnea, unspecified; R42 Dizziness and giddiness; R11.0 Nausea; I13.0 Hypertensive heart and chronic kidney disease with heart failure and stage 1 through stage 4 chronic kidney disease, or unspecified chronic kidney disease; E11.22 Type 2 diabetes mellitus with diabetic chronic kidney disease; N18.9 Chronic kidney disease, unspecified; E78.00 Pure hypercholesterolemia, unspecified; Z86.718 Personal history of other venous thrombosis and embolism; Z90.89 Acquired absence of other organs; Z98.890 Other specified postprocedural states; Z87.891 Personal history of nicotine dependence; Z88.1 Allergy status to other antibiotic agents
CPT/HCPCS: 36415; 71045; 80053; 84484; 85025; 85610; 93005; 99285

== ENCOUNTER 2020-01-25 12:47 | Emergency (ER) | payer MEDICARE ==
[~2020-01-25] VITALS: Ht 154.9 cm; Wt 63.9 kg
[~2020-01-25 12:47] MED LIST changes: -AMIO200T4 PO; +AMIO200T6 PO; +AMLO-186 PO; -AMLO5TAB10 PO
--- NOTE | 2020-01-25 14:21 | RAD ---
3 view left knee AP lateral oblique views Pain after fall There is marginal spurring of all 3 compartments. There is no joint effusion. There is no lytic destructive changes. IMPRESSION: No acute findings. Electronically signed by: Mando Brennan III, MD (01/25/2020 2:18 PM) [id number]
--- NOTE | 2020-01-25 14:44 | PHYS DOC ---
Past Medical History Past Medical History: CAD, CHF, COPD, Diabetes-Type II, DVT, High Cholesterol, Heart Disease, Hypertension, [place], Renal Disease, Renal Failure, Other Additional Past Medical Histor: dialysis MWF, O2 3LNC @ home, CPAP, abdominal aneursym, SHINGLES Past Surgical History: Angioplasty, Other Additional Past Surgical Histo: cardiac cath with stent placement, rotator cuff surgery,AV graft, cataract, Smoking Status: Former Smoker Alcohol Use: None Drug Use: None General Adult EDM: Chief Complaint: MECHANICAL FALL HPI: HPI: Patient is a 74 year old AA female with extensive medical history, accompanied by her , that presents to the emergency room with complaints of left anterior knee pain. She reports yesterday evening she tripped over her oxygen tubing and fell onto her knee on the floor. She states that the pain was so severe that it hurts to bear weight. She denies any laxity of the joint. She denies numbness, tingling, or weakness. She states that her left knee has been swollen. She denies any dizziness prior to the fall, she denies any loss of consciousness from the fall. Patient denies any neck or back pain. She currently rates her pain 8 out of 10 on the pain scale, the pain is worse with palpation and movement, there are no alleviating factors. Review of Systems: Review of Systems: Complete ROS is negative unless otherwise noted in HPI. Heart Score: Risk Factors: Risk Factors: DM, Current or recent (<one month) smoker, HTN, HLP, family history of CAD, obesity. Risk Scores: Score 0 - 3: 2.5% MACE over next 6 weeks - Discharge Home Score 4 - 6: 20.3% MACE over next 6 weeks - Admit for Clinical Observation Score 7 - 10: 72.7% MACE over next 6 weeks - Early Invasive Strategies Allergies: Allergies: Allergies Coded Allergies Type Severity Reaction Last Updated Verified Iodinated Contrast Media Allergy Intermediate 11/06/17 Yes Physical Exam: PE: Constitutional: Well developed, well nourished, no acute distress, non-toxic appearance. [] HENT: Normocephalic, atraumatic, bilateral external ears normal, nose normal. [] Eyes: PERRLA, EOMI, conjunctiva normal, no discharge. [] Neck: Normal range of motion, no stridor. [] Cardiovascular:Heart rate regular rhythm Lungs & Thorax: Respirations even and unlabored, no retractions, no respiratory distress Skin: Warm, dry, no erythema, no rash. [] Extremities: Left knee: 1+ edema to anterior knee with tenderness to palpation, no crepitus, no obvious deformity, no bruising, ROM limited due to pain intolerance, no cyanosis Neurologic: Alert and oriented X 3, no focal deficits noted. [] Psychologic: Affect normal, judgement normal, mood normal. [] Current Patient Data: Vital Signs: Vital Signs Date Time Temp Pulse Resp B/P (MAP) Pulse Ox O2 Delivery O2 Flow Rate FiO2 01/25/20 13:36 98.8 86 20 195/72 (113) 100 Room Air 98.8 EKG: EKG: [] Radiology/Procedures: Radiology/Procedures: PROCEDURE: KNEE LEFT 3V 3 view left knee AP lateral oblique views Pain after fall There is marginal spurring of all 3 compartments. There is no joint effusion. There is no lytic destructive changes. IMPRESSION: No acute findings.[] Course & Med Decision Making: Course & Med Decision Making Pertinent Labs and Imaging studies reviewed. (See chart for details) [] Dragon Disclaimer: Dragon Disclaimer: This electronic medical record was generated, in whole or in part, using a voice recognition dictation system. Departure Departure Impression: Primary Impression: Left anterior knee pain Additional Impression: Fall Qualified Codes: W19.XXXA - Unspecified fall, initial encounter Disposition: 01 DC HOME SELF CARE/HOMELESS Condition: STABLE Referrals: BERTO TORRES MD (PCP) CHANELL ADAMS MD Patient Instructions: Knee Pain, [id number] Additional Instructions: You can take Tylenol as needed for pain.. Recommend application of ice, elevation, and rest of affected extremity. Wear the knee immobilizer that was placed until follow up appointment. Call Dr. Adams's office on Monday for reevaluation. Return to the ER if your symptoms worsen. Splinting Splinting : Location: Left knee Pre-Made Type: velcro (Knee immobilizer) Pre-Proc Neuro Vasc Exam: normal Post-Proc Neuro Vasc Exam: normal, unchanged from pre-exam MY HERNANDEZ [employer] INVESTIGATOR Jan 25, 2020 14:44
[2020-01-25 15:21] VITALS: BP 173/79
== END 2020-01-25 15:26 | disposition home or self-care (01) ==
LOC: ER 12:47
DX: M25.562 Pain in left knee (principal); G89.11 Acute pain due to trauma; J44.9 Chronic obstructive pulmonary disease, unspecified; E11.22 Type 2 diabetes mellitus with diabetic chronic kidney disease; I13.0 Hypertensive heart and chronic kidney disease with heart failure and stage 1 through stage 4 chronic kidney disease, or unspecified chronic kidney disease; N18.9 Chronic kidney disease, unspecified; I50.9 Heart failure, unspecified; Z99.2 Dependence on renal dialysis; I25.10 Atherosclerotic heart disease of native coronary artery without angina pectoris; E78.00 Pure hypercholesterolemia, unspecified; I25.2 Old myocardial infarction; Z87.891 Personal history of nicotine dependence; Z95.5 Presence of coronary angioplasty implant and graft; Z91.041 Radiographic dye allergy status; W01.0XXA Fall on same level from slipping, tripping and stumbling without subsequent striking against object, initial encounter; Y93.89 Activity, other specified; Y92.89 Other specified places as the place of occurrence of the external cause; Y99.8 Other external cause status
CPT/HCPCS: 29505; 73562; 99283

== ENCOUNTER 2020-11-26 11:04 | Inpatient (IN) | payer MEDICARE ==
[~2020-11-26] VITALS: Ht 154.9 cm; Wt 59.4 kg
[~2020-11-26 11:04] MED LIST changes: +DOCU-148 PO; -DOCU-153 PO; -DOXY100C2 PO; +DOXY100C3 PO; -LISI-334 PO; -LISI-338 PO; +LISI-517 PO; +LISI20TA18 PO; -OMEP40CA45 PO; +OMEP40CA7 PO; +TOLT2TAB20 PO; -TOLT2TAB4 PO
--- NOTE | 2020-11-26 11:25 | PHYS DOC ---
Past Medical History Past Medical History: CAD, CHF, COPD, Diabetes-Type II, DVT, High Cholesterol, Heart Disease, Hypertension, [place], Renal Disease, Renal Failure, Other Additional Past Medical Histor: dialysis MWF, O2 3LNC @ home, CPAP, abdominal aneursym, SHINGLES Past Surgical History: Angioplasty, Other Additional Past Surgical Histo: cardiac cath with stent placement, rotator cuff surgery,AV graft, cataract, Smoking Status: Former Smoker Alcohol Use: None Drug Use: None General Adult EDM: Chief Complaint: SHORTNESS OF BREATH HPI: HPI: Patient is a 75 year old female who present to ER due to trouble breathing, general weakness, nausea vomiting diarrhea. Patient became sick 3 days ago. Patient has end-stage renal failure, on hemodialysis. Patient missed her dial ysis yesterday because not feeling well, she is scheduled for dialysis today but she did not feel well so she came here for evaluation. Patient has history of COPD, she is on 3 L oxygen at home while at rest, when she ambulates she is on 6 L of oxygen. Patient is a former smoker. Patient states she was vaccinated for COVID-19. She denies any cough or fever. Patient denies any chest pain Review of Systems: Review of Systems: Constitutional: Denies fever or chills. [] Eyes: Denies change in visual acuity. [] HENT: Denies nasal congestion or sore throat. [] Respiratory: Denies cough, positive for shortness of air. Cardiovascular: Denies chest pain or edema. [] GI: Denies abdominal pain, nausea, vomiting, bloody stools or diarrhea. [] : Denies dysuria. [] Musculoskeletal: Denies back pain or joint pain. [] Integument: Denies rash. [] Neurologic: Denies headache, focal weakness or sensory changes. [] Endocrine: Denies polyuria or polydipsia. [] Lymphatic: Denies swollen glands. [] Psychiatric: Denies depression or anxiety. [] Heart Score: C/O Chest Pain: N/A Risk Factors: Risk Factors: DM, Current or recent (<one month) smoker, HTN, HLP, family history of CAD, obesity. Risk Scores: Score 0 - 3: 2.5% MACE over next 6 weeks - Discharge Home Score 4 - 6: 20.3% MACE over next 6 weeks - Admit for Clinical Observation Score 7 - 10: 72.7% MACE over next 6 weeks - Early Invasive Strategies Allergies: Allergies: Allergies Coded Allergies Type Severity Reaction Last Updated Verified Iodinated Contrast Media Allergy Intermediate 11/06/17 Yes Physical Exam: PE: Constitutional: Well developed, well nourished, no acute distress, non-toxic appearance. [] HENT: Normocephalic, atraumatic, bilateral external ears normal, oropharynx moist, no oral exudates, nose normal. [] Eyes: PERRLA, EOMI, conjunctiva normal, no discharge. [] Neck: Normal range of motion, no tenderness, supple, no stridor. [] Cardiovascular:Heart rate regular rhythm, no murmur [] Lungs & Thorax: Bilateral breath sounds diminished at lung bases to auscultation [] Abdomen: Bowel sounds normal, soft, no tenderness, no masses, no pulsatile masses. [] Skin: Warm, dry, no erythema, no rash. [] Back: No tenderness, no CVA tenderness. [] Extremities: No tenderness, no cyanosis, no clubbing, ROM intact, no edema. AV fistula on left arm with strong bruit. Neurologic: Alert and oriented X 3, normal motor function, normal sensory function, no focal deficits noted. [] Psychologic: Affect normal, judgement normal, mood normal. [] Current Patient Data: Labs: Laboratory Tests Test 11/26/20 11:22 11/26/20 11:41 SARS-CoV-2 Antigen (Rapid) Negative White Blood Count 7.0 x10^3/uL Red Blood Count 3.60 x10^6/uL Hemoglobin 11.7 g/dL Hematocrit 36.4 % Mean Corpuscular Volume 101 fL Mean Corpuscular Hemoglobin 33 pg Mean Corpuscular Hemoglobin Concent 32 g/dL Red Cell Distribution Width 14.9 % Platelet Count 203 x10^3/uL Neutrophils (%) (Auto) 90 % Lymphocytes (%) (Auto) 3 % Monocytes (%) (Auto) 7 % Eosinophils (%) (Auto) 0 % Basophils (%) (Auto) 0 % Neutrophils # (Auto) 6.3 x10^3/uL Lymphocytes # (Auto) 0.2 x10^3/uL Monocytes # (Auto) 0.5 x10^3/uL Eosinophils # (Auto) 0.0 x10^3/uL Basophils # (Auto) 0.0 x10^3/uL Platelet Estimate Pending Sodium Level 148 mmol/L Potassium Level 4.7 mmol/L Chloride Level 106 mmol/L Carbon Dioxide Level 31 mmol/L Anion Gap 11 Blood Urea Nitrogen 53 mg/dL Creatinine 8.7 mg/dL Estimated GFR (Cockcroft-Gault) 5.4 BUN/Creatinine Ratio 6 Glucose Level 101 mg/dL Calcium Level 7.6 mg/dL Magnesium Level 1.7 mg/dL Total Bilirubin 0.5 mg/dL Aspartate Amino Transf (AST/SGOT) 20 U/L Alanine Aminotransferase (ALT/SGPT) 12 U/L Alkaline Phosphatase 93 U/L Troponin I Quantitative 0.045 ng/mL UX-Cag-D-Type Natriuretic Peptide > 63072 pg/mL Total Protein 6.0 g/dL Albumin 3.0 g/dL Albumin/Globulin Ratio 1.0 Vital Signs: Laboratory Tests Test 11/26/20 11:22 11/26/20 11:41 SARS-CoV-2 Antigen (Rapid) Negative White Blood Count 7.0 x10^3/uL Red Blood Count 3.60 x10^6/uL Hemoglobin 11.7 g/dL Hematocrit 36.4 % Mean Corpuscular Volume 101 fL Mean Corpuscular Hemoglobin 33 pg Mean Corpuscular Hemoglobin Concent 32 g/dL Red Cell Distribution Width 14.9 % Platelet Count 203 x10^3/uL Neutrophils (%) (Auto) 90 % Lymphocytes (%) (Auto) 3 % Monocytes (%) (Auto) 7 % Eosinophils (%) (Auto) 0 % Basophils (%) (Auto) 0 % Neutrophils # (Auto) 6.3 x10^3/uL Lymphocytes # (Auto) 0.2 x10^3/uL Monocytes # (Auto) 0.5 x10^3/uL Eosinophils # (Auto) 0.0 x10^3/uL Basophils # (Auto) 0.0 x10^3/uL Segmented Neutrophils % 85 % Band Neutrophils % 1 % Lymphocytes % 7 % Monocytes % 7 % Platelet Estimate Adequate Sodium Level 148 mmol/L Potassium Level 4.7 mmol/L Chloride Level 106 mmol/L Carbon Dioxide Level 31 mmol/L Anion Gap 11 Blood Urea Nitrogen 53 mg/dL Creatinine 8.7 mg/dL Estimated GFR (Cockcroft-Gault) 5.4 BUN/Creatinine Ratio 6 Glucose Level 101 mg/dL Calcium Level 7.6 mg/dL Magnesium Level 1.7 mg/dL Total Bilirubin 0.5 mg/dL Aspartate Amino Transf (AST/SGOT) 20 U/L Alanine Aminotransferase (ALT/SGPT) 12 U/L Alkaline Phosphatase 93 U/L Troponin I Quantitative 0.045 ng/mL [id number]-Type Natriuretic Peptide > 68687 pg/mL Total Protein 6.0 g/dL Albumin 3.0 g/dL Albumin/Globulin Ratio 1.0 Vitamin B12 Level 1004 pg/mL EKG: EKG: [] Radiology/Procedures: Radiology/Procedures: [][facility] [address] [place], [place] [id number] IMAGING REPORT Signed PATIENT: WANDA PRABHAKAR ACCOUNT: [id number] : 1945 LOCATION: ER AGE: 75 SEX: F EXAM STATUS: REG ER ORD. PHYSICIAN: ARCHANA GU DO REASON: SOA PROCEDURE: PORTABLE CHEST 1V XR CHEST 1V History: Short of air. Comparison: 10/09/2019, 09/18/2019 Technique: Portable AP radiograph of the chest. Findings: The lungs are adequately inflated. No focal airspace consolidation. Possible small left pleural effusion. No pneumothorax. Diffuse prominence of the pulmonary interstitial markings are chronic. Indistinct pulmonary vasculature. Cardiomegaly with calcified aortic arch. Degenerative changes of the spine and shoulders. Kyphoplasty changes at L1. Soft tissues are unremarkable. Impression: 1. Cardiomegaly and pulmonary vascular congestion concerning for CHF exacerbation. Electronically signed by: Dilan Lubin MD (11/26/2020 12:34 PM) [id number] DICTATED and SIGNED BY: DILAN LUBIN MD DATE: 11/26/20 [id number] 0 Course & Med Decision Making: Course & Med Decision Making Pertinent Labs and Imaging studies reviewed. (See chart for details) Patient is a 75-year-old female who present to ER due to generalized weakness, nausea vomiting diarrhea. Patient also complained of trouble breathing. Patient had end-stage renal failure, she did not make it to her dialysis yesterday, she is scheduled again to have dialysis today but she did not make it because she still feeling weak. Chest x-ray show fluid overload, discussed with the director of veterans affairs on-call Dr. Santamaria who agreed to dialyze patient today. Discussed with hospitalist on-call Dr. Dozier who agreed to admit the patient. Presley Disclaimer: Presley Disclaimer: This electronic medical record was generated, in whole or in part, using a voice recognition dictation system. Departure Departure Impression: Primary Impression: Acute pulmonary edema Additional Impression: ESRD (end stage renal disease) on dialysis Disposition: ADMITTED INPATIENT Admitting Physician: GIAN (Dr. Damon) Condition: STABLE Referrals: BERTO TORRES MD (PCP) ARCHANA GU DO Nov 26, 2020 11:25
[2020-11-26 11:53] LABS: BASO % 0 % (0-3); EOS % 0 % (0-3); HEMATOCRIT 36.4 % (36.0-47.0); HEMOGLOBIN 11.7 g/dL (12.0-15.5); LYMPH # 0.2 x10^3/uL (1.0-4.8); LYMPH % 3 % (24-48); MEAN CORPUSCULAR HEMOGLOBIN 33 pg (25-35); MEAN CORPUSCULAR HGB CONC 32 g/dL (31-37); MEAN CORPUSCULAR VOLUME 101 fL (79-100); MONO # 0.5 x10^3/uL (0.0-1.1); MONO % 7 % (0-9); NEUT # 6.3 x10^3/uL (1.8-7.7); NEUT % 90 % (31-73); PLATELET COUNT 203 x10^3/uL (140-400); RED CELL DISTRIBUTION WIDTH 14.9 % (11.5-14.5)
[2020-11-26 12:07] LABS: CALCIUM 7.6 mg/dL (8.5-10.1); CREATININE 8.7 mg/dL (0.6-1.0); GFR 5.4; POTASSIUM 4.7 mmol/L (3.5-5.1)
[2020-11-26 12:13] LABS: MAGNESIUM 1.7 mg/dL (1.8-2.4); TOTAL BILIRUBIN 0.5 mg/dL (0.2-1.0)
--- NOTE | 2020-11-26 12:36 | RAD ---
XR CHEST 1V History: Short of air. Comparison: 10/09/2019, 09/18/2019 Technique: Portable AP radiograph of the chest. Findings: The lungs are adequately inflated. No focal airspace consolidation. Possible small left pleural effus ion. No pneumothorax. Diffuse prominence of the pulmonary interstitial markings are chronic. Indistin ct pulmonary vasculature. Cardiomegaly with calcified aortic arch. Degenerative changes of the spine and shoulders. Kyphoplasty changes at L1. Soft tissues are unremarkable. Impression: 1. Cardiomegaly and pulmonary vascular congestion concerning for CHF exacerbation. Electronically signed by: Dilan Russell MD (11/26/2020 12:34 PM) [id number]
[2020-11-26 12:55] LABS: % BANDS 1 % (0-9); % LYMPHS 7 % (24-48); % MONOS 7 % (0-10); % SEGS 85 % (35-66); PLT ESTIMATE ADEQUATE (ADEQUATE)
--- NOTE | 2020-11-26 13:09 | PDOC1 ---
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 She has been having nausea after dialysis she noted on 11/23/2020 but initially thought this could have been from food she had from her 's last week and possibly anxiety. She experienced the same nausea and diarrhea 818 and skipped dialysis and rescheduled for today but was unable to attend due to worsening shortness of breath and nausea and abdominal pain with diarrhea. Of note she is requiring 6 L nasal cannula oxygen which is her home O2 requirement of 3 L. Vaccinated for COVID-19. She denies any cough or fever. Patient denies any chest pain. No recent travel or sick contacts Labs with WBC 7, Hb 11.7 with MCV 101, platelets 203, NA NA 148, K4.7, BUN 33, CR 8.7, glucose 101, calcium 7.6, magnesium 1.7, albumin 3, NT proBNP greater than 35,000, troponin 0.045 Rapid COVID-19 negative EKG approximately 79 bpm appears to be atrial fibrillation with no significant changes from prior EKG. Chest radiograph cardiomegaly increased pulmonary vascular congestion Noncontrast CT abdomen pelvis with cholelithiasis otherwise no acute findings. Admitted for further care. Past Medical History Cardiovascular: AFIB, CAD, CHF, HTN, Hyperlipidemia, Other Pulmonary: Asthma, COPD, Other CENTRAL NERVOUS SYSTEM: Other GI: Diverticulosis Heme/Onc: Anemia NOS Psych: Anxiety Rheumatologic: No pertinent hx Infectious disease: No pertinent hx Renal/: Chronic renal failure Endocrine: Diabetes, Hyperparathyroidism Past Surgical History Past Surgical History: Appendectomy, Arthroscopy, Cataract Removal, Other Family History Family History: Coronary Artery Disease, Diabetes Social History Smoke: Quit ALCOHOL: none Drugs: None Current Medications Current Medications Active Scripts Active Culturelle (Lactobacillus Rhamnosus Gg) 1 Each Cap.sprink 1 Cap PO BID 30 Days Dok (Docusate Sodium) 100 Mg Capsule 100 Mg PO PRN BID PRN 30 Days Guaifenesin 100 Mg/5 Ml Liquid 200 Mg PO PRN Q4HRS PRN 14 Days Gabapentin 300 Mg Capsule 300 Mg PO QHS 30 Days Tylenol (Acetaminophen) 325 Mg Tablet 650 Mg PO PRN Q4HRS PRN 14 Days Doxycycline Hyclate 100 Mg Tablet 100 Mg PO BID 10 Days Nitrostat (Nitroglycerin) 0.4 Mg Tab.subl 0.4 Mg SL PRN Q5MIN PRN Ondansetron Odt (Ondansetron) 4 Mg Tab.rapdis 1 Tab PO PRN Q6-8HRS PRN Lomotil Tablet (Diphenoxylate Hcl/Atropine) 1 Each Tablet 1 Tab PO TID PRN Amiodarone Hcl 200 Mg Tablet 200 Mg PO DAILY 30 Days Eliquis (Apixaban) 5 Mg Tablet 5 Mg PO BID MDD ` Reported Triamcinolone Acetonide 0.1% Oint (Triamcinolone Acetonide) 15 Gm Oint...g. 1 Keshawn TP BID MIX WITH EUCERIN DIRECTED BY PHYSICIAN Metoprolol Succinate ( Xl ) (Metoprolol Succinate) 100 Mg Tab.er.24h 1 Tab PO DAILY Clopidogrel (Clopidogrel Bisulfate) 75 Mg Tablet 75 Mg PO DAILY Aspirin 81 Mg Tab.chew 1 Tab PO DAILY Lipitor (Atorvastatin Calcium) 40 Mg Tablet 40 Mg PO HS Furosemide 40 Mg Tablet 40 Mg PO DAILY Symbicort 160-4.5 Mcg Inhaler (Budesonide/Formoterol Fumarate) 10.2 Gm Hfa.aer.a d 2 Puff IH BID Proair Hfa Inhaler (Albuterol Sulfate) 8.5 Gm Hfa.aer.ad 1 Puff INH PRN Q6HRS PRN Hydroxyzine Hcl 25 Mg Tablet 50 Mg PO QMWF Allergies Allergies: Coded Allergies: Iodinated Contrast Media (Verified Allergy, Intermediate, 11/06/17) ROS General: YES: Fatigue, Malaise; No: Chills, Night Sweats, Appetite, Other PSYCHOLOGICAL ROS: No: Anxiety, Behavioral Disorder, Concentration difficultie, Decreased libido, Depression, Disorientation, Hallucinations, Hostility, Irritablity, Memory difficulties, Mood Swings, Obsessive thoughts, Physical abuse, Sexual abuse, Sleep disturbances, Suicidal ideation, Other Eyes: No Blurry vision, No Decreased vision, No Double vision, No Dry eyes, No Excessive tearing, No Eye Pain, No Itchy Eyes, No Loss of vision, No Photophobia, No Scotomata, No Uses contacts, No Uses glasses, No Other HEENT: No: Heacaches, Visual Changes, Hearing change, Nasal congestion, Nasal discharge, Oral lesions, Sinus pain, Sore Throat, Epistaxis, Sneezing, Snoring, Tinnitus, Vertigo, Vocal changes, Other ALLERGY AND IMMUNOLOGY: No: Hives, Insect Bite Sensitivity, Itchy/Watery Eyes, Nasal Congestion, Post Nasal Drip, Seasonal Allergies, Other Hematological and Lymphatic: No: Bleeding Problems, Blood Clots, Blood Transfusions, Brusing, Night Sweats, Pallor, Swollen Lymph Nodes, Other ENDOCRINE: No: Breast Changes, Galactorrhea, Hair Pattern Changes, Hot Flashes, Malaise/lethargy, Mood Swings, Palpitations, Polydipsia/polyuria, Skin Changes, Temperature Intolerance, Unexpected Weight Changes, Other Breast: No New/Changing Breast Lumps, No Nipple changes, No Nipple discharge, No Other Respiratory: YES: Cough, Orthopnea, Shortness of breath, SOB with excertion, Tachypnea; No: Hemoptysis, Pleuritic Pain, Sputum Changes, Stridor, Wheezing, Other Cardiovascular: yes Paroxysmal Noc. Dyspnea; No Chest Pain, No Palpitations, No Orthopnea, No Edema, No Lt Headedness, No Other Gastrointestinal: Yes Nausea, Yes Vomiting, Yes Abdominal Pain, Yes Diarrhea Genitourinary: No Dysuria, No Frequency, No Incontinence, No Hematuria, No Retention, No Discharge, No Urgency, No Pain, No Flank Pain, No Other, No , No , No , No , No , No , No Musculoskeletal: No Gait Disturbance, No Joint Pain, No Joint Stiffness, No Joint Swelling, No Muscle Pain, No Muscular Weakness, No Pain In:, No Swelling In:, No Other Neurological: No Behavorial Changes, No Bowel/Bladder ControlChng, No Confusion, No Dizziness, No Gait Disturbance, No Headaches, No Impaired Coord/balance, No Memory Loss, No Numbness/Tingling, No Seizures, No Speech Problems, No Tremors, No Visual Changes, No Weakness, No Other Skin: No Dry Skin, No Eczema, No Hair Changes, No Lumps, No Mole Changes, No Mottling, No Nail Changes, No Pruritus, No Rash, No Skin Lesion Changes, No Other, No Acne Physical Exam General: Alert, Oriented X3, Cooperative, moderate distress HEENT: Atraumatic, PERRLA, EOMI, Mucous membr. moist/pink Lungs: Other (Bilateral crackles) Heart: irregularly irregular Abdomen: Normal bowel sounds, Soft, No hepatosplenomegaly, No masses, Other (RUQ and epigastric tenderness) Rectal Exam: not examined Extremities: No clubbing, No cyanosis, No edema, Normal pulses, No tenderness/swelling Skin: No rashes, No breakdown, No significant lesion Neuro: Normal gait, Normal speech, Strength at 5/5 X4 ext, Normal tone, Sensation intact, Cranial nerves 3-12 NL, Reflexes 2+ Psych/Mental Status: Mental status NL, Mood NL Vitals Vitals Vital Signs Date Time Temp Pulse Resp B/P (MAP) Pulse Ox O2 Delivery O2 Flow Rate FiO2 11/26/20 11:06 97.9 68 24 174/79 93 Nasal Cannula 6.0 97.9 Labs Labs Laboratory Tests Test 11/26/20 11:22 11/26/20 11:41 SARS-CoV-2 Antigen (Rapid) Negative (NEGATIVE) White Blood Count 7.0 x10^3/uL (4.0-11.0) Red Blood Count 3.60 x10^6/uL (3.50-5.40) Hemoglobin 11.7 g/dL (12.0-15.5) Hematocrit 36.4 % (36.0-47.0) Mean Corpuscular Volume 101 fL (79-100) Mean Corpuscular Hemoglobin 33 pg (25-35) Mean Corpuscular Hemoglobin Concent 32 g/dL (31-37) Red Cell Distribution Width 14.9 % (11.5-14.5) Platelet Count 203 x10^3/uL (140-400) Neutrophils (%) (Auto) 90 % (31-73) Lymphocytes (%) (Auto) 3 % (24-48) Monocytes (%) (Auto) 7 % (0-9) Eosinophils (%) (Auto) 0 % (0-3) Basophils (%) (Auto) 0 % (0-3) Neutrophils # (Auto) 6.3 x10^3/uL (1.8-7.7) Lymphocytes # (Auto) 0.2 x10^3/uL (1.0-4.8) Monocytes # (Auto) 0.5 x10^3/uL (0.0-1.1) Eosinophils # (Auto) 0.0 x10^3/uL (0.0-0.7) Basophils # (Auto) 0.0 x10^3/uL (0.0-0.2) Segmented Neutrophils % 85 % (35-66) Band Neutrophils % 1 % (0-9) Lymphocytes % 7 % (24-48) Monocytes % 7 % (0-10) Platelet Estimate Adequate (ADEQUATE) Sodium Level 148 mmol/L (136-145) Potassium Level 4.7 mmol/L (3.5-5.1) Chloride Level 106 mmol/L (98-107) Carbon Dioxide Level 31 mmol/L (21-32) Anion Gap 11 (6-14) Blood Urea Nitrogen 53 mg/dL (7-20) Creatinine 8.7 mg/dL (0.6-1.0) Estimated GFR (Cockcroft-Gault) 5.4 BUN/Creatinine Ratio 6 (6-20) Glucose Level 101 mg/dL (70-99) Calcium Level 7.6 mg/dL (8.5-10.1) Magnesium Level 1.7 mg/dL (1.8-2.4) Total Bilirubin 0.5 mg/dL (0.2-1.0) Aspartate Amino Transf (AST/SGOT) 20 U/L (15-37) Alanine Aminotransferase (ALT/SGPT) 12 U/L (14-59) Alkaline Phosphatase 93 U/L (46-116) Troponin I Quantitative 0.045 ng/mL (0.000-0.055) PM-Pue-H-Type Natriuretic Peptide > 50449 pg/mL (0-449) Total Protein 6.0 g/dL (6.4-8.2) Albumin 3.0 g/dL (3.4-5.0) Albumin/Globulin Ratio 1.0 (1.0-1.7) Laboratory Tests Test 11/26/20 11:22 11/26/20 11:41 SARS-CoV-2 Antigen (Rapid) Negative (NEGATIVE) White Blood Count 7.0 x10^3/uL (4.0-11.0) Red Blood Count 3.60 x10^6/uL (3.50-5.40) Hemoglobin 11.7 g/dL (12.0-15.5) Hematocrit 36.4 % (36.0-47.0) Mean Corpuscular Volume 101 fL (79-100) Mean Corpuscular Hemoglobin 33 pg (25-35) Mean Corpuscular Hemoglobin Concent 32 g/dL (31-37) Red Cell Distribution Width 14.9 % (11.5-14.5) Platelet Count 203 x10^3/uL (140-400) Neutrophils (%) (Auto) 90 % (31-73) Lymphocytes (%) (Auto) 3 % (24-48) Monocytes (%) (Auto) 7 % (0-9) Eosinophils (%) (Auto) 0 % (0-3) Basophils (%) (Auto) 0 % (0-3) Neutrophils # (Auto) 6.3 x10^3/uL (1.8-7.7) Lymphocytes # (Auto) 0.2 x10^3/uL (1.0-4.8) Monocytes # (Auto) 0.5 x10^3/uL (0.0-1.1) Eosinophils # (Auto) 0.0 x10^3/uL (0.0-0.7) Basophils # (Auto) 0.0 x10^3/uL (0.0-0.2) Segmented Neutrophils % 85 % (35-66) Band Neutrophils % 1 % (0-9) Lymphocytes % 7 % (24-48) Monocytes % 7 % (0-10) Platelet Estimate Adequate (ADEQUATE) Sodium Level 148 mmol/L (136-145) Potassium Level 4.7 mmol/L (3.5-5.1) Chloride Level 106 mmol/L (98-107) Carbon Dioxide Level 31 mmol/L (21-32) Anion Gap 11 (6-14) Blood Urea Nitrogen 53 mg/dL (7-20) Creatinine 8.7 mg/dL (0.6-1.0) Estimated GFR (Cockcroft-Gault) 5.4 BUN/Creatinine Ratio 6 (6-20) Glucose Level 101 mg/dL (70-99) Calcium Level 7.6 mg/dL (8.5-10.1) Magnesium Level 1.7 mg/dL (1.8-2.4) Total Bilirubin 0.5 mg/dL (0.2-1.0) Aspartate Amino Transf (AST/SGOT) 20 U/L (15-37) Alanine Aminotransferase (ALT/SGPT) 12 U/L (14-59) Alkaline Phosphatase 93 U/L (46-116) Troponin I Quantitative 0.045 ng/mL (0.000-0.055) HX-Csg-T-Type Natriuretic Peptide > 30490 pg/mL (0-449) Total Protein 6.0 g/dL (6.4-8.2) Albumin 3.0 g/dL (3.4-5.0) Albumin/Globulin Ratio 1.0 (1.0-1.7) Images Images CT abdomen/pelvis w/o: Limited images of lung bases show patchy and linear opacities in the lower lo bes, likely scar or atelectasis. Small pleural effusions. Heart size is moderately enlarged. No pericardial effusion. Coronary artery calcifications. Solid abdominal viscera not well evaluated in the absence of contrast material. No apparent attenuation abnormality of the liver or spleen. Pancreas, adrenal glands unremarkable. Small calcific stone within the gallbladder. There is also a 4 mm calcific stone at the midpole right kidney. The kidneys are atrophic. No ureteral stone or hydronephrosis. Small low-density focus at the midpole left kidney likely cyst. Unopacified GI tract normal in caliber and contour. No bowel wall thickening. No inflammatory stranding in the mesentery. No ascites or lymphadenopathy. Appendix is not clearly identified. No inflammatory changes in the right lower quadrant. Evidence of prior aortobiiliac stent graft repair of infrarenal abdominal aortic aneurysm. Images of pelvis show nondistended urinary bladder. There is mild diffuse bladder wall thickening. Trace amount of free fluid. No pelvic adenopathy. Bone windows show no acute findings. There is compression deformity of L1 status post vertebroplasty. Multilevel spondylosis. IMPRESSION: 1. No acute abnormality of abdomen or pelvis. 2. Cholelithiasis. 3. Right-sided nephrolithiasis, nonobstructive. 4. Patchy bibasilar airspace disease, likely atelectasis. There are small pleural effusions. 5. Diverticulosis. Chest radiograph: The lungs are adequately inflated. No focal airspace consolidation. Possible sma ll left pleural effusion. No pneumothorax. Diffuse prominence of the pulmonary interstitial markings are chronic. Indistinct pulmonary vasculature. Cardiomegaly with calcified aortic arch. Degenerative changes of the spine and shoulders. Kyphoplasty changes at L1. Soft tissues are unremarkable. Impression: 1. Cardiomegaly and pulmonary vascular congestion concerning for CHF exac erbation. VTE Prophylaxis Ordered VTE Prophylaxis Devices: Yes VTE Pharmacological Prophylaxi: Yes Assessment/Plan Assessment/Plan A/P: Acute on chronic respiratory failure with hypoxia -appears to be acute CHF exacerbation due to pulmonary edema due to missed dialysis. Nausea vomiting diarrhea -possibly gastroenteritis from food poisoning from services last week. Will monitor. Given cholelithiasis will obtain right upper quadrant ultrasound. ESRD - MWF HD. Will inform nephrology of admission Coronary artery disease - stable Acute on Chronic congestive heart failure - will need diuresis. last EF 60% in 2020 Asthmatic bronchitis - cont on nebs Arrhythmias - on Chronic anticoagulation on eliquis, rate control with metoprolol Hyperlipidemia - on statin Anemia - of chronic renal disease Moderate protein calorie malnutrition - supplements DM2 - mostly diet controlled, last A1c was 6 FEN - Renal diet PPX - eliquis FULL CODE Dispo - inpatient for N/V/D, missed dialysis, hypoxia Justifications for Admission Other Justification KERLINE LEON MD Nov 26, 2020 13:09
[2020-11-26] MEDS ORDERED: DIALYSIS PATIENT. MC PRN ×2 (14:30)
[2020-11-26] MEDS ORDERED: IV NORMAL SALINE 1000ML BAG 1,000 ML IV PRN ×2 (14:30)
--- NOTE | 2020-11-26 15:18 | RAD ---
CT abdomen pelvis without contrast dated 11/26/2020. No comparison available. Clinical data indication: Nausea vomiting diarrhea. TECHNIQUE: Contiguous axial imaging the abdomen pelvis performed without the administration of IV or oral contra st. One or more of the following individualized dose reduction techniques were utilized for this examinat ion: 1. Automated exposure control 2. Adjustment of the mA and/or kV according to patient size 3. Use of iterative reconstruction technique FINDINGS: Limited images of lung bases show patchy and linear opacities in the lower lobes, likely scar or atel ectasis. Small pleural effusions. Heart size is moderately enlarged. No pericardial effusion. Coronar y artery calcifications. Solid abdominal viscera not well evaluated in the absence of contrast material. No apparent attenuati on abnormality of the liver or spleen. Pancreas, adrenal glands unremarkable. Small calcific stone wi thin the gallbladder. There is also a 4 mm calcific stone at the midpole right kidney. The kidneys ar e atrophic. No ureteral stone or hydronephrosis. Small low-density focus at the midpole left kidney l ikely cyst. Unopacified GI tract normal in caliber and contour. No bowel wall thickening. No inflammatory strandi ng in the mesentery. No ascites or lymphadenopathy. Appendix is not clearly identified. No inflammato ry changes in the right lower quadrant. Evidence of prior aortobiiliac stent graft repair of infraren al abdominal aortic aneurysm. Images of pelvis show nondistended urinary bladder. There is mild diffuse bladder wall thickening. Tr tom amount of free fluid. No pelvic adenopathy. Bone windows show no acute findings. There is compression deformity of L1 status post vertebroplasty. Multilevel spondylosis. IMPRESSION: 1. No acute abnormality of abdomen or pelvis. 2. Cholelithiasis. 3. Right-sided nephrolithiasis, nonobstructive. 4. Patchy bibasilar airspace disease, likely atelectasis. There are small pleural effusions. 5. Diverticulosis. Electronically signed by: Josue Lew MD (11/26/2020 3:15 PM) [facility]
[2020-11-26] MEDS ORDERED: traMADol 50 MG TABLET PO PRN (16:00)
[2020-11-26] MEDS ORDERED: fentaNYL PF VIAL 100 MCG/2 ML VIAL IVP PRN (16:00)
[2020-11-26] MEDS ORDERED: hydrALAZINE 20 MG/ML VIAL. IVP PRN (16:00)
[2020-11-26] MEDS ORDERED: guaiFENesin DM 200MG/20MG 10 ML SYRUP PO PRN (16:00)
[2020-11-26] MEDS ORDERED: HEPARIN for SUB-Q USE 5,000 UNIT/ML VIAL. SQ SCH (16:00)
[2020-11-26] MEDS ORDERED: ACETAMINOPHEN 325 MG TABLET. PO PRN (16:00)
[2020-11-26] MEDS ORDERED: ONDANSETRON PF 4 MG/2 ML VIAL. IVP PRN (16:00)
[2020-11-26] MEDS ORDERED: MEMA10TA PO (21:33)
[2020-11-26] MEDS ORDERED: SERT50TA PO (21:33)
[2020-11-26] MEDS ORDERED: LISI20TA18 PO (21:35)
[2020-11-26] MEDS ORDERED: DONE10TA7 PO (21:35)
[2020-11-26] MEDS ORDERED: CARV12.511 PO (21:35)
[2020-11-26 22:21] VITALS: BP 169/57
[2020-11-26] MEDS ORDERED: NITROGLYCERIN SUBLINGUAL 0.4 MG BOTTLE OF 25. SL PRN (22:45)
[2020-11-27] MEDS: ATORVASTATIN CALCIUM 40 MG TABLET. PO SCH ×2 (01:01→21:33)
[2020-11-27] MEDS: PSYLLIUM HUSK (SUGAR FREE) 1 PKT PACKET PO SCH ×2 (01:01→21:00)
[2020-11-27] MEDS: APIXABAN 5 MG TABLET. PO SCH ×3 (01:01→21:33)
[2020-11-27] MEDS: MEMANTINE 10 MG TABLET. PO SCH ×3 (01:01→21:33)
[2020-11-27 03:42] VITALS: BP 175/69
[2020-11-27 04:53] LABS: BASO % 0 % (0-3); EOS # 0.1 x10^3/uL (0.0-0.7); EOS % 2 % (0-3); HEMATOCRIT 34.3 % (36.0-47.0); LYMPH # 0.5 x10^3/uL (1.0-4.8); LYMPH % 9 % (24-48); MEAN CORPUSCULAR HEMOGLOBIN 33 pg (25-35); MEAN CORPUSCULAR HGB CONC 32 g/dL (31-37); MEAN CORPUSCULAR VOLUME 102 fL (79-100); MONO # 0.6 x10^3/uL (0.0-1.1); MONO % 12 % (0-9); NEUT # 3.8 x10^3/uL (1.8-7.7); NEUT % 76 % (31-73); PLATELET COUNT 165 x10^3/uL (140-400); RED BLOOD COUNT 3.37 x10^6/uL (3.50-5.40); RED CELL DISTRIBUTION WIDTH 14.5 % (11.5-14.5); WHITE BLOOD COUNT 4.9 x10^3/uL (4.0-11.0)
[2020-11-27 05:13] LABS: CALCIUM 7.6 mg/dL (8.5-10.1); CREATININE 5.7 mg/dL (0.6-1.0); GFR 8.7; POTASSIUM 4.4 mmol/L (3.5-5.1)
--- NOTE | 2020-11-27 06:32 | RAD ---
EXAM: ULTRASOUND ABDOMEN LIMITED CLINICAL HISTORY: Reason: Nausea and vomiting, concern for biliary colic COMPARISON: CT abdomen November 26, 2020 Findings: Imaged pancreas, aorta and IVC are normal. The tail the pancreas is poorly visualized due t o overlying bowel gas shadowing. Normal liver echogenicity. No liver mass. No morphologic changes of liver cirrhosis evident. Right he patic lobe length 10.4 cm which is normal. There are some very tiny echogenic dependent gallstones pr esent. No inflammatory changes in the gallbladder. No biliary ductal dilation the common bile duct di ameter is 3 mm. Right kidney is atrophic with a length of 7.1 cm and demonstrates cortical atrophy and increased pare nchymal echogenicity typical of chronic medical renal disease. Spleen and left kidney were not evalua mu. IMPRESSION: 1. Cholelithiasis. No inflammatory changes of the gallbladder evident. No biliary ductal dilation. 2. Sequela of chronic medical renal disease with atrophy and increased parenchymal echogenicity of th e right kidney. Electronically signed by: Addi Schumacher MD (11/27/2020 6:30 AM) [facility]
[2020-11-27 06:44] VITALS: BP 150/64
[2020-11-27] MEDS: BUDESONIDE 0.5 MG/2 ML NEBU. NEB SCH ×2 (07:27→20:30)
[2020-11-27] MEDS: ALBUTEROL SULFATE 2.5 MG/3 ML NEBU. NEB SCH ×4 (07:27→20:30)
--- NOTE | 2020-11-27 09:04 | PDOC ---
PROGRESS NOTES Date of Service: DATE: 11/27/20 TIME: 09:04 Chief Complaint Chief Complaint VTE Prophylaxis Ordered VTE Prophylaxis Devices: Yes VTE Pharmacological Prophylaxi: Yes Assessment/Plan Assessment/Plan A/P: Acute on chronic respiratory failure with hypoxia -appears to be acute CHF exacerbation due to pulmonary edema due to missed dialysis. Nausea vomiting diarrhea -possibly gastroenteritis from food poisoning from services last week. Will monitor. Given cholelithiasis will obtain right upper quadrant ultrasound. ESRD - MWF HD. Will inform nephrology of admission Coronary artery disease - stable Acute on Chronic congestive heart failure - will need diuresis. last EF 60% in 2019 Asthmatic bronchitis - cont on nebs Arrhythmias - on Chronic anticoagulation on eliquis, rate control with metoprolol Hyperlipidemia - on statin Anemia - of chronic renal disease Moderate protein calorie malnutrition - supplements DM2 - mostly diet controlled, last A1c was 6 FEN - Renal diet PPX - eliquis FULL CODE Dispo - inpatient for N/V/D, missed dialysis, hypoxia d/w rn Justifications for Admission Justifications for Admission Other Justification History of Present Illness History of Present Illness History of Present Illness History of Present Illness Ms Banks is a 75-year-old female, 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 She has been having nausea after dialysis she noted on 11/23/2020 but initially thought this could have been from food she had from her 's last week and possibly anxiety. She experienced the same nausea and diarrhea 818 and skipped dialysis and rescheduled for today but was unable to attend due to worsening shortness of breath and nausea and abdominal pain with diarrhea. Of note she is requiring 6 L nasal cannula oxygen which is her home O2 requirement of 3 L. Vaccinated for COVID-19. She denies any cough or fever. Patient denies any chest pain. No recent travel or sick contacts Labs with WBC 7, Hb 11.7 with MCV 101, platelets 203, NA NA 148, K4.7, BUN 33, CR 8.7, glucose 101, calcium 7.6, magnesium 1.7, albumin 3, NT proBNP greater than 35,000, troponin 0.045 Rapid COVID-19 negative EKG approximately 79 bpm appears to be atrial fibrillation with no significant changes from prior EKG. Chest radiograph cardiomegaly increased pulmonary vascular congestion Noncontrast CT abdomen pelvis with cholelithiasis otherwise no acute findings. Admitted for further care. Past Medical History Cardiovascular: AFIB, CAD, CHF, HTN, Hyperlipidemia, Other Pulmonary: Asthma, COPD, Other CENTRAL NERVOUS SYSTEM: Other GI: Diverticulosis Heme/Onc: Anemia NOS Psych: Anxiety Rheumatologic: No pertinent hx Infectious disease: No pertinent hx Renal/: Chronic renal failure Endocrine: Diabetes, Hyperparathyroidism Past Surgical History Past Surgical History: Appendectomy, Arthroscopy, Cataract Removal, Other Family History Family History: Coronary Artery Disease, Diabetes Social History Smoke: Quit ALCOHOL: none Drugs: None Current Medications Current Medications Active Scripts Active Culturelle (Lactobacillus Rhamnosus Gg) 1 Each Cap.sprink 1 Cap PO BID 30 Days Dok (Docusate Sodium) 100 Mg Capsule 100 Mg PO PRN BID PRN 30 Days Guaifenesin 100 Mg/5 Ml Liquid 200 Mg PO PRN Q4HRS PRN 14 Days Gabapentin 300 Mg Capsule 300 Mg PO QHS 30 Days Tylenol (Acetaminophen) 325 Mg Tablet 650 Mg PO PRN Q4HRS PRN 14 Days Doxycycline Hyclate 100 Mg Tablet 100 Mg PO BID 10 Days Nitrostat (Nitroglycerin) 0.4 Mg Tab.subl 0.4 Mg SL PRN Q5MIN PRN Ondansetron Odt (Ondansetron) 4 Mg Tab.rapdis 1 Tab PO PRN Q6-8HRS PRN Lomotil Tablet (Diphenoxylate Hcl/Atropine) 1 Each Tablet 1 Tab PO TID PRN Amiodarone Hcl 200 Mg Tablet 200 Mg PO DAILY 30 Days Eliquis (Apixaban) 5 Mg Tablet 5 Mg PO BID MDD ` Reported Triamcinolone Acetonide 0.1% Oint (Triamcinolone Acetonide) 15 Gm Oint...g. 1 Keshawn TP BID MIX WITH EUCERIN DIRECTED BY PHYSICIAN Metoprolol Succinate ( Xl ) (Metoprolol Succinate) 100 Mg Tab.er.24h 1 Tab PO DAILY Clopidogrel (Clopidogrel Bisulfate) 75 Mg Tablet 75 Mg PO DAILY Aspirin 81 Mg Tab.chew 1 Tab PO DAILY Lipitor (Atorvastatin Calcium) 40 Mg Tablet 40 Mg PO HS Furosemide 40 Mg Tablet 40 Mg PO DAILY Symbicort 160-4.5 Mcg Inhaler (Budesonide/Formoterol Fumarate) 10.2 Gm Hfa.aer.ad 2 Puff IH BID Proair Hfa Inhaler (Albuterol Sulfate) 8.5 Gm Hfa.aer.ad 1 Puff INH PRN Q6HRS PRN Hydroxyzine Hcl 25 Mg Tablet 50 Mg PO QMWF Allergies Allergies: Coded Allergies: Iodinated Contrast Media (Verified Allergy, Intermediate, 11/06/17) ROS General: YES: Fatigue, Malaise; No: Chills, Night Sweats, Appetite, Other PSYCHOLOGICAL ROS: No: Anxiety, Behavioral Disorder, Concentration difficultie, Decreased libido, Depression, Disorientation, Hallucinations, Hostility, Irritablity, Memory difficulties, Mood Swings, Obsessive thoughts, Physical abuse, Sexual abuse, Sleep disturbances, Suicidal ideation, Other Eyes: No Blurry vision, No Decreased vision, No Double vision, No Dry eyes, No Excessive tearing, No Eye Pain, No Itchy Eyes, No Loss of vision, No Photophobia, No Scotomata, No Uses contacts, No Uses glasses, No Other HEENT: No: Heacaches, Visual Changes, Hearing change, Nasal congestion, Nasal discharge, Oral lesions, Sinus pain, Sore Throat, Epistaxis, Sneezing, Snoring, Tinnitus, Vertigo, Vocal changes, Other ALLERGY AND IMMUNOLOGY: No: Hives, Insect Bite Sensitivity, Itchy/Watery Eyes, Nasal Congestion, Post Nasal Drip, Seasonal Allergies, Other Hematological and Lymphatic: No: Bleeding Problems, Blood Clots, Blood Transfusions, Brusing, Night Sweats, Pallor, Swollen Lymph Nodes, Other ENDOCRINE: No: Breast Changes, Galactorrhea, Hair Pattern Changes, Hot Flashes, Malaise/lethargy, Mood Swings, Palpitations, Polydipsia/polyuria, Skin Changes, Temperature Intolerance, Unexpected Weight Changes, Other Breast: No New/Changing Breast Lumps, No Nipple changes, No Nipple discharge, No Other Respiratory: YES: Cough, Orthopnea, Shortness of breath, SOB with excertion, Tachypnea; No: Hemoptysis, Pleuritic Pain, Sputum Changes, Stridor, Wheezing, Other Cardiovascular: yes Paroxysmal Noc. Dyspnea; No Chest Pain, No Palpitations, No Orthopnea, No Edema, No Lt Headedness, No Other Gastrointestinal: Yes Nausea, Yes Vomiting, Yes Abdominal Pain, Yes Diarrhea Genitourinary: No Dysuria, No Frequency, No Incontinence, No Hematuria, No Retention, No Discharge, No Urgency, No Pain, No Flank Pain, No Other, No , No , No , No , No , No , No Musculoskeletal: No Gait Disturbance, No Joint Pain, No Joint Stiffness, No Joint Swelling, No Muscle Pain, No Muscular Weakness, No Pain In:, No Swelling In:, No Other Neurological: No Behavorial Changes, No Bowel/Bladder ControlChng, No Confusion, No Dizziness, No Gait Disturbance, No Headaches, No Impaired Coord/balance, No Memory Loss, No Numbness/Tingling, No Seizures, No Speech Problems, No Tremors, No Visual Changes, No Weakness, No Other Skin: No Dry Skin, No Eczema, No Hair Changes, No Lumps, No Mole Changes, No Mottling, No Nail Changes, No Pruritus, No Rash, No Skin Lesion Changes, No Other, No Acne 8-20 D/[address] mender on chronic respiratory failure with hypoxia -appears to be acute CHF exacerbation due to pulmonary edema due to missed dialysis. Nausea vomiting diarrhea -possibly gastroenteritis from food poisoning from services last week. Will monitor. Given cholelithiasis will obtain right upper quadrant ultrasound. ESRD - MWF HD. Will inform nephrology of admission Coronary artery disease - stable Acute on Chronic congestive heart failure - will need diuresis. last EF 60% in 2020 Asthmatic bronchitis - cont on nebs Arrhythmias - on Chronic anticoagulation on eliquis, rate control with metoprolol Hyperlipidemia - on statin Anemia - of chronic renal disease Moderate protein calorie malnutrition - supplements DM2 - mostly diet controlled, last A1c was 6 FEN - Renal diet PPX - eliquis FULL CODE Dispo - inpatient for N/V/D, missed dialysis, hypoxia Vitals Vitals Vital Signs Date Time Temp Pulse Resp B/P (MAP) Pulse Ox O2 Delivery O2 Flow Rate FiO2 11/27/20 06:44 98.0 83 20 150/64 (92) 100 Nasal Cannula 5.0 98.0 Physical Exam General: Alert, Oriented X3, Cooperative, mild distress Heart: Regular rate Lungs: Clear Abdomen: Normal bowel sounds, Soft, No hepatosplenomegaly, No masses, Other (RUQ and epigastric tenderness) Extremities: No clubbing, No cyanosis, No edema, Normal pulses, No tenderness/swelling Skin: No rashes, No breakdown, No significant lesion Labs LABS EFT VENTRICLE The left ventricle is normal size. There is mild to moderate concentric left ventricular hypertrophy. The left ventricular systolic function is normal. The Ejection Fraction is 60%. There is normal LV segmental wall motion. Transmitral Doppler flow pattern is Grade I-abnormal relaxation pattern. RIGHT VENTRICLE The right ventricle is normal size. The right ventricular systolic function is normal. ATRIA The left atrium is mildly dilated. The right atrium is mildly dilated. The interatrial septum is intact with no evidence for an atrial septal defect or patent foramen ovale as noted on 2-D or Doppler imaging. AORTIC VALVE The aortic valve is mildly thickened but opens well. Doppler and Color Flow revealed no significant aortic regurgitation. There is no significant aortic valvular stenosis. MITRAL VALVE The mitral valve is normal in structure and function. There is no evidence of mitral valve prolapse. There is no mitral valve stenosis. Doppler and Color-flow revealed trace mitral regurgitation. TRICUSPID VALVE The tricuspid valve is normal in structure and function. Doppler and Color Flow revealed mild tricuspid regurgitation. There is moderate-severe pulmonary hypertension. The PA pressure was estimated at 65 mmHg. There is no tricuspid valve stenosis. PULMONIC VALVE The pulmonary valve is normal in structure and function. Doppler and Color Flow revealed trace pulmonic valvular regurgitation. There is no pulmonic valvular stenosis. GREAT VESSELS The aortic root is normal in size. The ascending aorta is normal in size. The IVC is normal in size and collapses >50% with inspiration. PERICARDIAL EFFUSION There is no evidence of significant pericardial effusion. Critical Notification Critical Value: No <Conclusion> The left ventricular systolic function is normal. The Ejection Fraction is 60%. There is normal LV segmental wall motion. Transmitral Doppler flow pattern is Grade I-abnormal relaxation pattern. Trace mitral regurgitation. Mild tricuspid regurgitation. There is moderate-severe pulmonary hypertension. The PA pressure was estimated at 65 mmHg. There is no evidence of significant pericardial effusion. Signed by : Jeb Davis, Electronically Approved : 04/25/2019 16:59:54 PATIENT: WANDA BANKS ACCOUNT: [id number] : 1945 LOCATION: ER AGE: 75 SEX: F EXAM STATUS: REG ER ORD. PHYSICIAN: KERLINE LEON MD REASON: Nausea, vomiting, diarrhea, concern for colitis PROCEDURE: CT ABDOMEN PELVIS WO CONTRAST CT abdomen pelvis without contrast dated 11/26/2020. No comparison available. Clinical data indication: Nausea vomiting diarrhea. TECHNIQUE: Contiguous axial imaging the abdomen pelvis performed without the administration of IV or oral contrast. One or more of the following individualized dose reduction techniques were utilized for this examination: 1. Automated exposure control 2. Adjustment of the mA and/or kV according to patient size 3. Use of iterative reconstruction technique FINDINGS: Limited images of lung bases show patchy and linear opacities in the lower lobes, likely scar or atelectasis. Small pleural effusions. Heart size is moderately enlarged. No pericardial effusion. Coronary artery calcifications. Solid abdominal viscera not well evaluated in the absence of contrast material. No apparent attenuation abnormality of the liver or spleen. Pancreas, adrenal glands unremarkable. Small calcific stone within the gallbladder. There is also a 4 mm calcific stone at the midpole right kidney. The kidneys are atrophic. No ureteral stone or hydronephrosis. Small low-density focus at the midpole left kidney likely cyst. Unopacified GI tract normal in caliber and contour. No bowel wall thickening. No inflammatory stranding in the mesentery. No ascites or lymphadenopathy. Appendix is not clearly identified. No inflammatory changes in the right lower quadrant. Evidence of prior aortobiiliac stent graft repair of infrarenal abdominal aortic aneurysm. Images of pelvis show nondistended urinary bladder. There is mild diffuse bladder wall thickening. Trace amount of free fluid. No pelvic adenopathy. Bone windows show no acute findings. There is compression deformity of L1 status post vertebroplasty. Multilevel spondylosis. IMPRESSION: 1. No acute abnormality of abdomen or pelvis. 2. Cholelithiasis. 3. Right-sided nephrolithiasis, nonobstructive. 4. Patchy bibasilar airspace disease, likely atelectasis. There are small pleural effusions. 5. Diverticulosis. Electronically signed by: Josue Connors MD (11/26/2020 3:15 PM) [facility] [place] DICTATED and SIGNED BY: JOSUE CONNORS MD DATE: 11/26/20 [id number] Laboratory Tests Test 11/26/20 11:22 11/26/20 11:41 11/27/20 04:00 SARS-CoV-2 Antigen (Rapid) Negative (NEGATIVE) White Blood Count 7.0 x10^3/uL (4.0-11.0) 4.9 x10^3/uL (4.0-11.0) Red Blood Count 3.60 x10^6/uL (3.50-5.40) 3.37 x10^6/uL (3.50-5.40) Hemoglobin 11.7 g/dL (12.0-15.5) 11.0 g/dL (12.0-15.5) Hematocrit 36.4 % (36.0-47.0) 34.3 % (36.0-47.0) Mean Corpuscular Volume 101 fL (79-100) 102 fL (79-100) Mean Corpuscular Hemoglobin 33 pg (25-35) 33 pg (25-35) Mean Corpuscular Hemoglobin Concent 32 g/dL (31-37) 32 g/dL (31-37) Red Cell Distribution Width 14.9 % (11.5-14.5) 14.5 % (11.5-14.5) Platelet Count 203 x10^3/uL (140-400) 165 x10^3/uL (140-400) Neutrophils (%) (Auto) 90 % (31-73) 76 % (31-73) Lymphocytes (%) (Auto) 3 % (24-48) 9 % (24-48) Monocytes (%) (Auto) 7 % (0-9) 12 % (0-9) Eosinophils (%) (Auto) 0 % (0-3) 2 % (0-3) Basophils (%) (Auto) 0 % (0-3) 0 % (0-3) Neutrophils # (Auto) 6.3 x10^3/uL (1.8-7.7) 3.8 x10^3/uL (1.8-7.7) Lymphocytes # (Auto) 0.2 x10^3/uL (1.0-4.8) 0.5 x10^3/uL (1.0-4.8) Monocytes # (Auto) 0.5 x10^3/uL (0.0-1.1) 0.6 x10^3/uL (0.0-1.1) Eosinophils # (Auto) 0.0 x10^3/uL (0.0-0.7) 0.1 x10^3/uL (0.0-0.7) Basophils # (Auto) 0.0 x10^3/uL (0.0-0.2) 0.0 x10^3/uL (0.0-0.2) Segmented Neutrophils % 85 % (35-66) Band Neutrophils % 1 % (0-9) Lymphocytes % 7 % (24-48) Monocytes % 7 % (0-10) Platelet Estimate Adequate (ADEQUATE) Sodium Level 148 mmol/L (136-145) 145 mmol/L (136-145) Potassium Level 4.7 mmol/L (3.5-5.1) 4.4 mmol/L (3.5-5.1) Chloride Level 106 mmol/L (98-107) 106 mmol/L (98-107) Carbon Dioxide Level 31 mmol/L (21-32) 33 mmol/L (21-32) Anion Gap 11 (6-14) 6 (6-14) Blood Urea Nitrogen 53 mg/dL (7-20) 30 mg/dL (7-20) Creatinine 8.7 mg/dL (0.6-1.0) 5.7 mg/dL (0.6-1.0) Estimated GFR (Cockcroft-Gault) 5.4 8.7 BUN/Creatinine Ratio 6 (6-20) Glucose Level 101 mg/dL (70-99) 72 mg/dL (70-99) Calcium Level 7.6 mg/dL (8.5-10.1) 7.6 mg/dL (8.5-10.1) Magnesium Level 1.7 mg/dL (1.8-2.4) Total Bilirubin 0.5 mg/dL (0.2-1.0) Aspartate Amino Transf (AST/SGOT) 20 U/L (15-37) Alanine Aminotransferase (ALT/SGPT) 12 U/L (14-59) Alkaline Phosphatase 93 U/L (46-116) Troponin I Quantitative 0.045 ng/mL (0.000-0.055) KT-Bge-E-Type Natriuretic Peptide > 76508 pg/mL (0-449) Total Protein 6.0 g/dL (6.4-8.2) Albumin 3.0 g/dL (3.4-5.0) Albumin/Globulin Ratio 1.0 (1.0-1.7) Vitamin B12 Level 1004 pg/mL (247-911) Assessment and Plan Assessmemt and Plan Problems Medical Problems: (1) Acute pulmonary edema Status: Acute (2) ESRD (end stage renal disease) on dialysis Status: Chronic Comment Review of Relevant I have reviewed the following items mykel (where applicable) has been applied. Labs Laboratory Tests Test 11/26/20 11:22 11/26/20 11:41 11/27/20 04:00 SARS-CoV-2 Antigen (Rapid) Negative (NEGATIVE) White Blood Count 7.0 x10^3/uL (4.0-11.0) 4.9 x10^3/uL (4.0-11.0) Red Blood Count 3.60 x10^6/uL (3.50-5.40) 3.37 x10^6/uL (3.50-5.40) Hemoglobin 11.7 g/dL (12.0-15.5) 11.0 g/dL (12.0-15.5) Hematocrit 36.4 % (36.0-47.0) 34.3 % (36.0-47.0) Mean Corpuscular Volume 101 fL (79-100) 102 fL (79-100) Mean Corpuscular Hemoglobin 33 pg (25-35) 33 pg (25-35) Mean Corpuscular Hemoglobin Concent 32 g/dL (31-37) 32 g/dL (31-37) Red Cell Distribution Width 14.9 % (11.5-14.5) 14.5 % (11.5-14.5) Platelet Count 203 x10^3/uL (140-400) 165 x10^3/uL (140-400) Neutrophils (%) (Auto) 90 % (31-73) 76 % (31-73) Lymphocytes (%) (Auto) 3 % (24-48) 9 % (24-48) Monocytes (%) (Auto) 7 % (0-9) 12 % (0-9) Eosinophils (%) (Auto) 0 % (0-3) 2 % (0-3) Basophils (%) (Auto) 0 % (0-3) 0 % (0-3) Neutrophils # (Auto) 6.3 x10^3/uL (1.8-7.7) 3.8 x10^3/uL (1.8-7.7) Lymphocytes # (Auto) 0.2 x10^3/uL (1.0-4.8) 0.5 x10^3/uL (1.0-4.8) Monocytes # (Auto) 0.5 x10^3/uL (0.0-1.1) 0.6 x10^3/uL (0.0-1.1) Eosinophils # (Auto) 0.0 x10^3/uL (0.0-0.7) 0.1 x10^3/uL (0.0-0.7) Basophils # (Auto) 0.0 x10^3/uL (0.0-0.2) 0.0 x10^3/uL (0.0-0.2) Segmented Neutrophils % 85 % (35-66) Band Neutrophils % 1 % (0-9) Lymphocytes % 7 % (24-48) Monocytes % 7 % (0-10) Platelet Estimate Adequate (ADEQUATE) Sodium Level 148 mmol/L (136-145) 145 mmol/L (136-145) Potassium Level 4.7 mmol/L (3.5-5.1) 4.4 mmol/L (3.5-5.1) Chloride Level 106 mmol/L (98-107) 106 mmol/L (98-107) Carbon Dioxide Level 31 mmol/L (21-32) 33 mmol/L (21-32) Anion Gap 11 (6-14) 6 (6-14) Blood Urea Nitrogen 53 mg/dL (7-20) 30 mg/dL (7-20) Creatinine 8.7 mg/dL (0.6-1.0) 5.7 mg/dL (0.6-1.0) Estimated GFR (Cockcroft-Gault) 5.4 8.7 BUN/Creatinine Ratio 6 (6-20) Glucose Level 101 mg/dL (70-99) 72 mg/dL (70-99) Calcium Level 7.6 mg/dL (8.5-10.1) 7.6 mg/dL (8.5-10.1) Magnesium Level 1.7 mg/dL (1.8-2.4) Total Bilirubin 0.5 mg/dL (0.2-1.0) Aspartate Amino Transf (AST/SGOT) 20 U/L (15-37) Alanine Aminotransferase (ALT/SGPT) 12 U/L (14-59) Alkaline Phosphatase 93 U/L (46-116) Troponin I Quantitative 0.045 ng/mL (0.000-0.055) PZ-Lvt-W-Type Natriuretic Peptide > 76363 pg/mL (0-449) Total Protein 6.0 g/dL (6.4-8.2) Albumin 3.0 g/dL (3.4-5.0) Albumin/Globulin Ratio 1.0 (1.0-1.7) Vitamin B12 Level 1004 pg/mL (247-911) Laboratory Tests Test 11/26/20 11:22 11/26/20 11:41 11/27/20 04:00 SARS-CoV-2 Antigen (Rapid) Negative (NEGATIVE) White Blood Count 7.0 x10^3/uL (4.0-11.0) 4.9 x10^3/uL (4.0-11.0) Red Blood Count 3.60 x10^6/uL (3.50-5.40) 3.37 x10^6/uL (3.50-5.40) Hemoglobin 11.7 g/dL (12.0-15.5) 11.0 g/dL (12.0-15.5) Hematocrit 36.4 % (36.0-47.0) 34.3 % (36.0-47.0) Mean Corpuscular Volume 101 fL (79-100) 102 fL (79-100) Mean Corpuscular Hemoglobin 33 pg (25-35) 33 pg (25-35) Mean Corpuscular Hemoglobin Concent 32 g/dL (31-37) 32 g/dL (31-37) Red Cell Distribution Width 14.9 % (11.5-14.5) 14.5 % (11.5-14.5) Platelet Count 203 x10^3/uL (140-400) 165 x10^3/uL (140-400) Neutrophils (%) (Auto) 90 % (31-73) 76 % (31-73) Lymphocytes (%) (Auto) 3 % (24-48) 9 % (24-48) Monocytes (%) (Auto) 7 % (0-9) 12 % (0-9) Eosinophils (%) (Auto) 0 % (0-3) 2 % (0-3) Basophils (%) (Auto) 0 % (0-3) 0 % (0-3) Neutrophils # (Auto) 6.3 x10^3/uL (1.8-7.7) 3.8 x10^3/uL (1.8-7.7) Lymphocytes # (Auto) 0.2 x10^3/uL (1.0-4.8) 0.5 x10^3/uL (1.0-4.8) Monocytes # (Auto) 0.5 x10^3/uL (0.0-1.1) 0.6 x10^3/uL (0.0-1.1) Eosinophils # (Auto) 0.0 x10^3/uL (0.0-0.7) 0.1 x10^3/uL (0.0-0.7) Basophils # (Auto) 0.0 x10^3/uL (0.0-0.2) 0.0 x10^3/uL (0.0-0.2) Segmented Neutrophils % 85 % (35-66) Band Neutrophils % 1 % (0-9) Lymphocytes % 7 % (24-48) Monocytes % 7 % (0-10) Platelet Estimate Adequate (ADEQUATE) Sodium Level 148 mmol/L (136-145) 145 mmol/L (136-145) Potassium Level 4.7 mmol/L (3.5-5.1) 4.4 mmol/L (3.5-5.1) Chloride Level 106 mmol/L (98-107) 106 mmol/L (98-107) Carbon Dioxide Level 31 mmol/L (21-32) 33 mmol/L (21-32) Anion Gap 11 (6-14) 6 (6-14) Blood Urea Nitrogen 53 mg/dL (7-20) 30 mg/dL (7-20) Creatinine 8.7 mg/dL (0.6-1.0) 5.7 mg/dL (0.6-1.0) Estimated GFR (Cockcroft-Gault) 5.4 8.7 BUN/Creatinine Ratio 6 (6-20) Glucose Level 101 mg/dL (70-99) 72 mg/dL (70-99) Calcium Level 7.6 mg/dL (8.5-10.1) 7.6 mg/dL (8.5-10.1) Magnesium Level 1.7 mg/dL (1.8-2.4) Total Bilirubin 0.5 mg/dL (0.2-1.0) Aspartate Amino Transf (AST/SGOT) 20 U/L (15-37) Alanine Aminotransferase (ALT/SGPT) 12 U/L (14-59) Alkaline Phosphatase 93 U/L (46-116) Troponin I Quantitative 0.045 ng/mL (0.000-0.055) NN-Cvf-G-Type Natriuretic Peptide > 10461 pg/mL (0-449) Total Protein 6.0 g/dL (6.4-8.2) Albumin 3.0 g/dL (3.4-5.0) Albumin/Globulin Ratio 1.0 (1.0-1.7) Vitamin B12 Level 1004 pg/mL (247-911) Medications Current Medications Sodium Chloride 1,000 ml @ 1,000 mls/hr Q1H PRN IV hypotension; Start 11/26/20 at 14:30; Stop 11/26/20 at 20:29; Status DC Sodium Chloride 1,000 ml @ 400 mls/hr Q2H30M PRN IV PATENCY; Start 11/26/20 at 14:30; Stop 11/27/20 at 02:29; Status DC Info (PHARMACY MONITORING -- do not chart) 1 each PRN DAILY PRN MC SEE COMMENTS; Start 11/26/20 at 14:30; Status UNV Info (PHARMACY MONITORING -- do not chart) 1 each PRN DAILY PRN MC SEE COMMENTS; Start 11/26/20 at 14:30 Ondansetron HCl (Zofran) 4 mg PRN Q4HRS PRN IVP NAUSEA/VOMITING; Start 11/26/20 at 16:00 Tramadol HCl (Ultram) 50 mg PRN Q6HRS PRN PO MILD TO MODERATE PAIN; Start 11/26/20 at 16:00 Guaifenesin (Robitussin Dm) 10 ml PRN Q6HRS PRN PO COUGH; Start 11/26/20 at 16:00 Hydralazine HCl (Apresoline Inj) 10 mg PRN Q4HRS PRN IVP ELEVATED BP, SEE COMMENTS; Start 11/26/20 at 16:00 Heparin Sodium (Porcine) (Heparin Sodium) 5,000 unit Q8HRS SQ ; Start 11/26/20 at 16:00; Stop 11/26/20 at 22:38; Status DC Acetaminophen (Tylenol) 650 mg PRN Q6HRS PRN PO MILD PAIN / TEMP > 100.3'F; Start 11/26/20 at 16:00 Fentanyl Citrate (Fentanyl 2ml Vial) 25 mcg PRN Q3HRS PRN IVP SEVERE PAIN 7-10; Start 11/26/20 at 16:00 Amiodarone HCl (Cordarone) 200 mg DAILY PO ; Start 11/27/20 at 09:00 Apixaban (Eliquis) 5 mg BID PO Last administered on 11/27/20at 01:01; Start 11/26/20 at 22:45 Aspirin (Aspirin Chewable) 81 mg DAILY PO ; Start 11/27/20 at 09:00 Atorvastatin Calcium (Lipitor) 40 mg HS PO Last administered on 11/27/20at 01 :01; Start 11/26/20 at 23:00 Memantine (Namenda) 10 mg BID PO Last administered on 11/27/20at 01:01; Start 11/26/20 at 23:00 Metoprolol Succinate (Toprol Xl) 100 mg DAILY PO ; Start 11/27/20 at 09:00 Nitroglycerin (Nitrostat) 0.4 mg PRN Q5MIN PRN SL CHEST PAIN; Start 11/26/20 at 22:45 Sertraline HCl (Zoloft) 50 mg DAILY PO ; Start 11/27/20 at 09:00 Albuterol Sulfate (Ventolin Neb Soln) 2.5 mg RTQID NEB ; Start 11/27/20 at 08:00 Psyllium Hydrophilic Mucilloid (Metamucil Fiber Packet) 1 pkt QHS PO Last admi nistered on 11/27/20at 01:01; Start 11/26/20 at 22:45 Budesonide (Pulmicort) 0.5 mg RTBID NEB ; Start 11/27/20 at 08:00 Active Scripts Active Tylenol (Acetaminophen) 325 Mg Tablet 650 Mg PO PRN Q4HRS PRN 14 Days Nitrostat (Nitroglycerin) 0.4 Mg Tab.subl 0.4 Mg SL PRN Q5MIN PRN Amiodarone Hcl 200 Mg Tablet 200 Mg PO DAILY 30 Days Eliquis (Apixaban) 5 Mg Tablet 5 Mg PO BID MDD ` Reported Lisinopril 20 Mg Tablet 20 Mg PO DAILY Donepezil Hcl 10 Mg Tablet 1 Tab PO DAILY Carvedilol (Carvedilol) 12.5 Mg Tablet 12.5 Mg PO BIDWMEALS Zoloft (Sertraline Hcl) 50 Mg Tablet 50 Mg PO DAILY Namenda (Memantine Hcl) 10 Mg Tablet 10 Mg PO BID Metoprolol Succinate ( Xl ) (Metoprolol Succinate) 100 Mg Tab.er.24h 1 Tab PO DAILY Clopidogrel (Clopidogrel Bisulfate) 75 Mg Tablet 75 Mg PO DAILY Aspirin 81 Mg Tab.chew 1 Tab PO DAILY Lipitor (Atorvastatin Calcium) 40 Mg Tablet 40 Mg PO HS Symbicort 160-4.5 Mcg Inhaler (Budesonide/Formoterol Fumarate) 10.2 Gm Hfa.aer.ad 2 Puff IH BID Proair Hfa Inhaler (Albuterol Sulfate) 8.5 Gm Hfa.aer.ad 1 Puff INH PRN Q6HRS PRN Hydroxyzine Hcl 25 Mg Tablet 50 Mg PO QMWF Vitals/I & O Vital Sign - Last 24 Hours 11/26/20 11/26/20 11/26/20 11/26/20 11:06 13:01 13:31 14:01 Temp 97.9 97.9 Pulse 68 80 78 82 Resp 24 20 18 17 B/P (MAP) 174/79 181/78 (112) 190/81 (117) 188/84 (118) Pulse Ox 93 100 100 100 O2 Delivery Nasal Cannula Nasal Cannula Nasal Cannula Nasal Cannula O2 Flow Rate 6.0 6.0 6.0 6.0 11/26/20 11/26/20 11/26/20 11/27/20 14:31 22:21 22:53 03:42 Temp 97.7 98.2 97.7 98.2 Pulse 80 95 88 Resp 16 20 16 B/P (MAP) 156/71 (99) 169/57 (94) 175/69 (104) Pulse Ox 100 98 96 O2 Delivery Nasal Cannula Nasal Cannula Nasal Cannula O2 Flow Rate 6.0 5.0 6.0 5.0 11/27/20 06:44 Temp 98.0 98.0 Pulse 83 Resp 20 B/P (MAP) 150/64 (92) Pulse Ox 100 O2 Delivery Nasal Cannula O2 Flow Rate 5.0 Intake and Output 11/26/20 11/26/20 11/27/20 15:00 23:00 07:00 Intake Total 210 ml 820 ml Balance 210 ml 820 ml Justicifation of Admission Dx: Justifications for Admission: Justification of Admission Dx: N/A SUDHEER ROBLES MD Nov 27, 2020 09:04
[2020-11-27] MEDS: ASPIRIN CHEWABLE 81 MG TABLET. PO SCH (09:36)
[2020-11-27] MEDS: METOPROLOL SUCC 24HR ER 100 MG TAB.ER.24H. PO SCH (09:36)
[2020-11-27] MEDS: AMIODARONE HCL 200 MG TABLET. PO SCH (09:36)
[2020-11-27] MEDS: SERTRALINE 50 MG TABLET. PO SCH (09:36)
--- NOTE | 2020-11-27 11:41 | PDOC2 ---
CONSULT Date of Consult Date of Consult DATE: 11/27/20 TIME: 11:34 Reason for Consult Reason for Consult: ESRD Referring Physician Referring Physician: MARGARET Identification/Chief Complaint Chief Complaint SOB Source Source: Chart review History of Present Illness Reason for Visit: THIS IS A 75 YR OLD WITH ESRD DUE TO DM II AND HTN. HAS OP HD ON MWF. MISSED HER MON TX DUE TO WEAKNESS, ABD PAIN WITH N/V AND DIARRHEA. ON ADMIT NOTED TO BE SOB. SHE HAS 02 DEPENDENT COPD. SHE IS NOTED TO HAVE CHF ON CHEST IMAGING. LABS ARE C/W HER ESRD STATE. ABD PAIN W/U ONGOING. SHE HAS AN AVF FOR HER HD ACCESS. 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 She has been having nausea after dialysis she noted on 11/23/2020 but initially t hought this could have been from food she had from her 's last week and possibly anxiety. She experienced the same nausea and diarrhea 818 and skipped dialysis and rescheduled for today but was unable to attend due to worsening shortness of breath and nausea and abdominal pain with diarrhea. Of note she is requiring 6 L nasal cannula oxygen which is her home O2 requ irement of 3 L. Vaccinated for COVID-19. She denies any cough or fever. Patient denies any chest pain. No recent travel or sick contacts Labs with WBC 7, Hb 11.7 with MCV 101, platelets 203, NA NA 148, K4.7, BUN 33, CR 8.7, glucose 101, calcium 7.6, magnesium 1.7, albumin 3, NT proBNP greater than 35,000, troponin 0.045 Rapid COVID-19 negative EKG approximately 79 bpm appears to be atrial fibrillation with no significant changes from prior EKG. Chest radiograph cardiomegaly increased pulmonary vascular congestion Noncontrast CT abdomen pelvis with cholelithiasis otherwise no acute findings. Admitted for further care. Past Medical History Cardiovascular: AFIB, CAD, CHF, HTN, Hyperlipidemia, Other Pulmonary: Asthma, COPD, Other CENTRAL NERVOUS SYSTEM: Other GI: Diverticulosis Heme/Onc: Anemia NOS Psych: Anxiety Rheumatologic: No pertinent hx Infectious disease: No pertinent hx Renal/: Chronic renal failure Endocrine: Diabetes, Hyperparathyroidism Past Surgical History Past Surgical History: Appendectomy, Arthroscopy, Cataract Removal, Other Family History Family History: Coronary Artery Disease, Diabetes Social History Quit ALCOHOL: none Drugs: None Lives: with Family Domestic Violence: Neg Current Problem List Problem List Problems Medical Problems: (1) Acute pulmonary edema Status: Acute (2) ESRD (end stage renal disease) on dialysis Status: Chronic Current Medications Current Medications Current Medications Sodium Chloride 1,000 ml @ 1,000 mls/hr Q1H PRN IV hypotension; Start 11/26/20 at 14:30; Stop 11/26/20 at 20:29; Status DC Sodium Chloride 1,000 ml @ 400 mls/hr Q2H30M PRN IV PATENCY; Start 11/26/20 at 14:30; Stop 11/27/20 at 02:29; Status DC Info (PHARMACY MONITORING -- do not chart) 1 each PRN DAILY PRN MC SEE COMMENTS; Start 11/26/20 at 14:30; Status UNV Info (PHARMACY MONITORING -- do not chart) 1 each PRN DAILY PRN MC SEE COMMENTS; Start 11/26/20 at 14:30 Ondansetron HCl (Zofran) 4 mg PRN Q4HRS PRN IVP NAUSEA/VOMITING; Start 11/26/20 at 16:00 Tramadol HCl (Ultram) 50 mg PRN Q6HRS PRN PO MILD TO MODERATE PAIN; Start 11/26/20 at 16:00 Guaifenesin (Robitussin Dm) 10 ml PRN Q6HRS PRN PO COUGH; Start 11/26/20 at 16:00 Hydralazine HCl (Apresoline Inj) 10 mg PRN Q4HRS PRN IVP ELEVATED BP, SEE COMMENTS; Start 11/26/20 at 16:00 Heparin Sodium (Porcine) (Heparin Sodium) 5,000 unit Q8HRS SQ ; Start 11/26/20 at 16:00; Stop 11/26/20 at 22:38; Status DC Acetaminophen (Tylenol) 650 mg PRN Q6HRS PRN PO MILD PAIN / TEMP > 100.3'F; Start 11/26/20 at 16:00 Fentanyl Citrate (Fentanyl 2ml Vial) 25 mcg PRN Q3HRS PRN IVP SEVERE PAIN 7-10; Start 11/26/20 at 16:00 Amiodarone HCl (Cordarone) 200 mg DAILY PO Last administered on 11/27/20 09:36; Start 11/27/20 at 09:00 Apixaban (Eliquis) 5 mg BID PO Last administered on 11/27/20at 09:35; Start 11/26/20 at 22:45 Aspirin (Aspirin Chewable) 81 mg DAILY PO Last administered on 11/27/20at 09:36; Start 11/27/20 at 09:00 Atorvastatin Calcium (Lipitor) 40 mg HS PO Last administered on 11/27/20at 01:01; Start 11/26/20 at 23:00 Memantine (Namenda) 10 mg BID PO Last administered on 11/27/20at 09:36; Start 11/26/20 at 23:00 Metoprolol Succinate (Toprol Xl) 100 mg DAILY PO Last administered on 11/27/20at 09:36; Start 11/27/20 at 09:00 Nitroglycerin (Nitrostat) 0.4 mg PRN Q5MIN PRN SL CHEST PAIN; Start 11/26/20 at 22:45 Sertraline HCl (Zoloft) 50 mg DAILY PO Last administered on 11/27/20at 09:36; Start 11/27/20 at 09:00 Albuterol Sulfate (Ventolin Neb Soln) 2.5 mg RTQID NEB Last administered on 11/27/20at 11:22; Start 11/27/20 at 08:00 Psyllium Hydrophilic Mucilloid (Metamucil Fiber Packet) 1 pkt QHS PO Last administered on 11/27/20at 01:01; Start 11/26/20 at 22:45 Budesonide (Pulmicort) 0.5 mg RTBID NEB ; Start 11/27/20 at 08:00 Active Scripts Active Tylenol (Acetaminophen) 325 Mg Tablet 650 Mg PO PRN Q4HRS PRN 14 Days Nitrostat (Nitroglycerin) 0.4 Mg Tab.subl 0.4 Mg SL PRN Q5MIN PRN Amiodarone Hcl 200 Mg Tablet 200 Mg PO DAILY 30 Days Eliquis (Apixaban) 5 Mg Tablet 5 Mg PO BID MDD ` Reported Lisinopril 20 Mg Tablet 20 Mg PO DAILY Donepezil Hcl 10 Mg Tablet 1 Tab PO DAILY Carvedilol (Carvedilol) 12.5 Mg Tablet 12.5 Mg PO BIDWMEALS Zoloft (Sertraline Hcl) 50 Mg Tablet 50 Mg PO DAILY Namenda (Memantine Hcl) 10 Mg Tablet 10 Mg PO BID Metoprolol Succinate ( Xl ) (Metoprolol Succinate) 100 Mg Tab.er.24h 1 Tab PO DAILY Clopidogrel (Clopidogrel Bisulfate) 75 Mg Tablet 75 Mg PO DAILY Aspirin 81 Mg Tab.chew 1 Tab PO DAILY Lipitor (Atorvastatin Calcium) 40 Mg Tablet 40 Mg PO HS Symbicort 160-4.5 Mcg Inhaler (Budesonide/Formoterol Fumarate) 10.2 Gm Hfa.aer.ad 2 Puff IH BID Proair Hfa Inhaler (Albuterol Sulfate) 8.5 Gm Hfa.aer.ad 1 Puff INH PRN Q6HRS PRN Hydroxyzine Hcl 25 Mg Tablet 50 Mg PO QMWF Allergies Allergies: Coded Allergies: Iodinated Contrast Media (Verified Allergy, Intermediate, 11/06/17) ROS General: YES: Fatigue, Malaise, Appetite PSYCHOLOGICAL ROS: YES: Anxiety Eyes: Yes Decreased vision HEENT: YES: Heacaches Respiratory: YES: Cough, Orthopnea, Shortness of breath, SOB with excertion Gastrointestinal: Yes Nausea, Yes Vomiting, Yes Abdominal Pain, Yes Diarrhea Genitourinary: YES Other (ANURIA) Musculoskeletal: Yes Muscular Weakness Neurological: Yes Weakness Skin: Yes Dry Skin Physical Exam General: Alert, Oriented X3, mild distress HEENT: Atraumatic, PERRLA Lungs: Other (DECREASED AT BASES) Heart: Regular rate, Normal S1, Normal S2, Gallops Abdomen: Normal bowel sounds, No tenderness Extremities: No clubbing, No cyanosis Skin: No breakdown Neuro: Normal speech Psych/Mental Status: Mental status NL, Mood NL MUSCULOSKELETAL: No joint tenderness, No deformity, No swelling Vitals VITALS Vital Signs Date Time Temp Pulse Resp B/P (MAP) Pulse Ox O2 Delivery O2 Flow Rate FiO2 11/27/20 11:22 100 Nasal Cannula 5.0 11/27/20 09:36 83 150/64 11/27/20 06:44 98.0 20 98.0 Labs Labs Laboratory Tests Test 11/26/20 11:22 11/26/20 11:41 11/27/20 04:00 SARS-CoV-2 RNA (DAVID) Negative (Negative) SARS-CoV-2 Antigen (Rapid) Negative (NEGATIVE) White Blood Count 7.0 x10^3/uL (4.0-11.0) 4.9 x10^3/uL (4.0-11.0) Red Blood Count 3.60 x10^6/uL (3.50-5.40) 3.37 x10^6/uL (3.50-5.40) Hemoglobin 11.7 g/dL (12.0-15.5) 11.0 g/dL (12.0-15.5) Hematocrit 36.4 % (36.0-47.0) 34.3 % (36.0-47.0) Mean Corpuscular Volume 101 fL (79-100) 102 fL (79-100) Mean Corpuscular Hemoglobin 33 pg (25-35) 33 pg (25-35) Mean Corpuscular Hemoglobin Concent 32 g/dL (31-37) 32 g/dL (31-37) Red Cell Distribution Width 14.9 % (11.5-14.5) 14.5 % (11.5-14.5) Platelet Count 203 x10^3/uL (140-400) 165 x10^3/uL (140-400) Neutrophils (%) (Auto) 90 % (31-73) 76 % (31-73) Lymphocytes (%) (Auto) 3 % (24-48) 9 % (24-48) Monocytes (%) (Auto) 7 % (0-9) 12 % (0-9) Eosinophils (%) (Auto) 0 % (0-3) 2 % (0-3) Basophils (%) (Auto) 0 % (0-3) 0 % (0-3) Neutrophils # (Auto) 6.3 x10^3/uL (1.8-7.7) 3.8 x10^3/uL (1.8-7.7) Lymphocytes # (Auto) 0.2 x10^3/uL (1.0-4.8) 0.5 x10^3/uL (1.0-4.8) Monocytes # (Auto) 0.5 x10^3/uL (0.0-1.1) 0.6 x10^3/uL (0.0-1.1) Eosinophils # (Auto) 0.0 x10^3/uL (0.0-0.7) 0.1 x10^3/uL (0.0-0.7) Basophils # (Auto) 0.0 x10^3/uL (0.0-0.2) 0.0 x10^3/uL (0.0-0.2) Segmented Neutrophils % 85 % (35-66) Band Neutrophils % 1 % (0-9) Lymphocytes % 7 % (24-48) Monocytes % 7 % (0-10) Platelet Estimate Adequate (ADEQUATE) Sodium Level 148 mmol/L (136-145) 145 mmol/L (136-145) Potassium Level 4.7 mmol/L (3.5-5.1) 4.4 mmol/L (3.5-5.1) Chloride Level 106 mmol/L (98-107) 106 mmol/L (98-107) Carbon Dioxide Level 31 mmol/L (21-32) 33 mmol/L (21-32) Anion Gap 11 (6-14) 6 (6-14) Blood Urea Nitrogen 53 mg/dL (7-20) 30 mg/dL (7-20) Creatinine 8.7 mg/dL (0.6-1.0) 5.7 mg/dL (0.6-1.0) Estimated GFR (Cockcroft-Gault) 5.4 8.7 BUN/Creatinine Ratio 6 (6-20) Glucose Level 101 mg/dL (70-99) 72 mg/dL (70-99) Calcium Level 7.6 mg/dL (8.5-10.1) 7.6 mg/dL (8.5-10.1) Magnesium Level 1.7 mg/dL (1.8-2.4) Total Bilirubin 0.5 mg/dL (0.2-1.0) Aspartate Amino Transf (AST/SGOT) 20 U/L (15-37) Alanine Aminotransferase (ALT/SGPT) 12 U/L (14-59) Alkaline Phosphatase 93 U/L (46-116) Troponin I Quantitative 0.045 ng/mL (0.000-0.055) WJ-Frh-C-Type Natriuretic Peptide > 92945 pg/mL (0-449) Total Protein 6.0 g/dL (6.4-8.2) Albumin 3.0 g/dL (3.4-5.0) Albumin/Globulin Ratio 1.0 (1.0-1.7) Vitamin B12 Level 1004 pg/mL (247-911) Laboratory Tests Test 11/26/20 11:41 11/27/20 04:00 White Blood Count 7.0 x10^3/uL (4.0-11.0) 4.9 x10^3/uL (4.0-11.0) Red Blood Count 3.60 x10^6/uL (3.50-5.40) 3.37 x10^6/uL (3.50-5.40) Hemoglobin 11.7 g/dL (12.0-15.5) 11.0 g/dL (12.0-15.5) Hematocrit 36.4 % (36.0-47.0) 34.3 % (36.0-47.0) Mean Corpuscular Volume 101 fL (79-100) 102 fL (79-100) Mean Corpuscular Hemoglobin 33 pg (25-35) 33 pg (25-35) Mean Corpuscular Hemoglobin Concent 32 g/dL (31-37) 32 g/dL (31-37) Red Cell Distribution Width 14.9 % (11.5-14.5) 14.5 % (11.5-14.5) Platelet Count 203 x10^3/uL (140-400) 165 x10^3/uL (140-400) Neutrophils (%) (Auto) 90 % (31-73) 76 % (31-73) Lymphocytes (%) (Auto) 3 % (24-48) 9 % (24-48) Monocytes (%) (Auto) 7 % (0-9) 12 % (0-9) Eosinophils (%) (Auto) 0 % (0-3) 2 % (0-3) Basophils (%) (Auto) 0 % (0-3) 0 % (0-3) Neutrophils # (Auto) 6.3 x10^3/uL (1.8-7.7) 3.8 x10^3/uL (1.8-7.7) Lymphocytes # (Auto) 0.2 x10^3/uL (1.0-4.8) 0.5 x10^3/uL (1.0-4.8) Monocytes # (Auto) 0.5 x10^3/uL (0.0-1.1) 0.6 x10^3/uL (0.0-1.1) Eosinophils # (Auto) 0.0 x10^3/uL (0.0-0.7) 0.1 x10^3/uL (0.0-0.7) Basophils # (Auto) 0.0 x10^3/uL (0.0-0.2) 0.0 x10^3/uL (0.0-0.2) Segmented Neutrophils % 85 % (35-66) Band Neutrophils % 1 % (0-9) Lymphocytes % 7 % (24-48) Monocytes % 7 % (0-10) Platelet Estimate Adequate (ADEQUATE) Sodium Level 148 mmol/L (136-145) 145 mmol/L (136-145) Potassium Level 4.7 mmol/L (3.5-5.1) 4.4 mmol/L (3.5-5.1) Chloride Level 106 mmol/L (98-107) 106 mmol/L (98-107) Carbon Dioxide Level 31 mmol/L (21-32) 33 mmol/L (21-32) Anion Gap 11 (6-14) 6 (6-14) Blood Urea Nitrogen 53 mg/dL (7-20) 30 mg/dL (7-20) Creatinine 8.7 mg/dL (0.6-1.0) 5.7 mg/dL (0.6-1.0) Estimated GFR (Cockcroft-Gault) 5.4 8.7 BUN/Creatinine Ratio 6 (6-20) Glucose Level 101 mg/dL (70-99) 72 mg/dL (70-99) Calcium Level 7.6 mg/dL (8.5-10.1) 7.6 mg/dL (8.5-10.1) Magnesium Level 1.7 mg/dL (1.8-2.4) Total Bilirubin 0.5 mg/dL (0.2-1.0) Aspartate Amino Transf (AST/SGOT) 20 U/L (15-37) Alanine Aminotransferase (ALT/SGPT) 12 U/L (14-59) Alkaline Phosphatase 93 U/L (46-116) Troponin I Quantitative 0.045 ng/mL (0.000-0.055) CG-Atx-P-Type Natriuretic Peptide > 27235 pg/mL (0-449) Total Protein 6.0 g/dL (6.4-8.2) Albumin 3.0 g/dL (3.4-5.0) Albumin/Globulin Ratio 1.0 (1.0-1.7) Vitamin B12 Level 1004 pg/mL (247-911) Images Images EXAM: ULTRASOUND ABDOMEN LIMITED CLINICAL HISTORY: Reason: Nausea and vomiting, concern for biliary colic COMPARISON: CT abdomen November 26, 2020 Findings: Imaged pancreas, aorta and IVC are normal. The tail the pancreas is poorly visualized due to overlying bowel gas shadowing. Normal liver echogenicity. No liver mass. No morphologic changes of liver cirrhosis evident. Right hepatic lobe length 10.4 cm which is normal. There are some very tiny echogenic dependent gallstones present. No inflammatory changes in the gallbladder. No biliary ductal dilation the common bile duct diameter is 3 mm. Right kidney is atrophic with a length of 7.1 cm and demonstrates cortical atrophy and increased parenchymal echogenicity typical of chronic medical renal disease. Spleen and left kidney were not evaluated. IMPRESSION: 1. Cholelithiasis. No inflammatory changes of the gallbladder evident. No biliary ductal dilation. 2. Sequela of chronic medical renal disease with atrophy and increased parenchymal echogenicity of the right kidney. Electronically signed by: Addi Schumacher MD (11/27/2020 6:30 AM) [facility] CHEST 1V History: Short of air. Comparison: 10/09/2019, 09/18/2019 Technique: Portable AP radiograph of the chest. Findings: The lungs are adequately inflated. No focal airspace consolidation. Possible small left pleural effusion. No pneumothorax. Diffuse prominence of the pulmonary interstitial markings are chronic. Indistinct pulmonary vasculature. Cardiomegaly with calcified aortic arch. Degenerative changes of the spine and shoulders. Kyphoplasty changes at L1. Soft tissues are unremarkable. Impression: 1. Cardiomegaly and pulmonary vascular congestion concerning for CHF exacerb ation. Electronically signed by: Dilan Russell MD (11/26/2020 12:34 PM) [id number] Assessment/Plan Assessment/Plan IMP HYPOXIA ACUTE ON CHRONIC HYPOXIC RESP FAILURE ACUTE ON CHRONIC DIASTOLIC CHF O2 DEPENDENT COPD ESRD ANEMIA ABD PAIN DM II HTN PLAN HD DONE EMERGENTLY LAST NIGHT HD AGAIN TODAY UF TO TW PARISA WHEN NEEDED ABD PAIN W/U WILL FOLLOW EDITH CLEARY MD Nov 27, 2020 11:41
[2020-11-27 11:45] VITALS: BP 154/58
--- NOTE | 2020-11-27 13:29 | NUR ---
SS following for discharge planning. SS reviewed pt chart and discussed with pt RN. Pt is currently requiring oxygen at five liters nasal canula. COVID19 negative. Pt has home oxygen and home CPAP. Pt has outpatient hemodialysis at [facility], ; fax [phone], Monday, Monday, and Monday. SS will continue to follow for discharge planning.
[2020-11-27 15:00] VITALS: BP 138/58
[2020-11-27 19:08] VITALS: BP 139/64
[2020-11-27 22:20] VITALS: BP 147/60
[2020-11-27] MEDS ORDERED: CALCIUM CARBONATE 500 MG TAB.CHEW PO PRN (23:30)
[2020-11-28 03:23] VITALS: BP 151/67
[2020-11-28 05:10] LABS: CALCIUM 7.9 mg/dL (8.5-10.1); CREATININE 7.5 mg/dL (0.6-1.0); GFR 6.4; PHOSPHORUS 4.2 mg/dL (2.6-4.7); POTASSIUM 5.1 mmol/L (3.5-5.1)
[2020-11-28 07:00] VITALS: BP 142/65
[2020-11-28] MEDS: BUDESONIDE 0.5 MG/2 ML NEBU. NEB SCH ×2 (07:16→20:34)
[2020-11-28] MEDS: ALBUTEROL SULFATE 2.5 MG/3 ML NEBU. NEB SCH ×4 (07:16→20:34)
[2020-11-28] MEDS: AMIODARONE HCL 200 MG TABLET. PO SCH (08:45)
[2020-11-28] MEDS: METOPROLOL SUCC 24HR ER 100 MG TAB.ER.24H. PO SCH (08:45)
[2020-11-28] MEDS: APIXABAN 5 MG TABLET. PO SCH ×2 (08:45→20:46)
[2020-11-28] MEDS: MEMANTINE 10 MG TABLET. PO SCH ×2 (08:45→20:46)
[2020-11-28] MEDS: SERTRALINE 50 MG TABLET. PO SCH (08:45)
[2020-11-28] MEDS: ASPIRIN CHEWABLE 81 MG TABLET. PO SCH (08:45)
[2020-11-28] MEDS ORDERED: IV NORMAL SALINE 1000ML BAG 1,000 ML IV PRN ×2 (09:45)
[2020-11-28] MEDS ORDERED: DIALYSIS PATIENT. MC PRN ×2 (09:45)
--- NOTE | 2020-11-28 10:59 | PDOC ---
PROGRESS NOTES Date of Service: DATE: 11/28/20 TIME: 10:59 Chief Complaint Chief Complaint VTE Prophylaxis Ordered VTE Prophylaxis Devices: Yes VTE Pharmacological Prophylaxi: Yes Assessment/Plan Assessment/Plan A/P: Acute on chronic respiratory failure with hypoxia -appears to be acute CHF exacerbation due to pulmonary edema due to missed dialysis. Nausea vomiting diarrhea -possibly gastroenteritis from food poisoning from services last week. Will monitor. Given cholelithiasis will obtain right upper quadrant ultrasound. ESRD - MWF HD. Will inform nephrology of admission Coronary artery disease - stable Acute on Chronic congestive heart failure - will need diuresis. last EF 60% in 2019 Asthmatic bronchitis - cont on nebs Arrhythmias - on Chronic anticoagulation on eliquis, rate control with metoprolol Hyperlipidemia - on statin Anemia - of chronic renal disease Moderate protein calorie malnutrition - supplements DM2 - mostly diet controlled, last A1c was 6 FEN - Renal diet PPX - eliquis FULL CODE Dispo - inpatient for N/V/D, missed dialysis, hypoxia d/w rn Justifications for Admission Justifications for Admission Other Justification History of Present Illness History of Present Illness History of Present Illness History of Present Illness Ms Banks is a 75-year-old female, 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 She has been having nausea after dialysis she noted on 11/23/2020 but initially thought this could have been from food she had from her 's last week and possibly anxiety. She experienced the same nausea and diarrhea 818 and skipped dialysis and rescheduled for today but was unable to attend due to worsening shortness of breath and nausea and abdominal pain with diarrhea. Of note she is requiring 6 L nasal cannula oxygen which is her home O2 requirement of 3 L. Vaccinated for COVID-19. She denies any cough or fever. Patient denies any chest pain. No recent travel or sick contacts Labs with WBC 7, Hb 11.7 with MCV 101, platelets 203, NA NA 148, K4.7, BUN 33, CR 8.7, glucose 101, calcium 7.6, magnesium 1.7, albumin 3, NT proBNP greater than 35,000, troponin 0.045 Rapid COVID-19 negative EKG approximately 79 bpm appears to be atrial fibrillation with no significant changes from prior EKG. Chest radiograph cardiomegaly increased pulmonary vascular congestion Noncontrast CT abdomen pelvis with cholelithiasis otherwise no acute findings. Admitted for further care. Past Medical History Cardiovascular: AFIB, CAD, CHF, HTN, Hyperlipidemia, Other Pulmonary: Asthma, COPD, Other CENTRAL NERVOUS SYSTEM: Other GI: Diverticulosis Heme/Onc: Anemia NOS Psych: Anxiety Rheumatologic: No pertinent hx Infectious disease: No pertinent hx Renal/: Chronic renal failure Endocrine: Diabetes, Hyperparathyroidism Past Surgical History Past Surgical History: Appendectomy, Arthroscopy, Cataract Removal, Other Family History Family History: Coronary Artery Disease, Diabetes Social History Smoke: Quit ALCOHOL: none Drugs: None Current Medications Current Medications Active Scripts Active Culturelle (Lactobacillus Rhamnosus Gg) 1 Each Cap.sprink 1 Cap PO BID 30 Days Dok (Docusate Sodium) 100 Mg Capsule 100 Mg PO PRN BID PRN 30 Days Guaifenesin 100 Mg/5 Ml Liquid 200 Mg PO PRN Q4HRS PRN 14 Days Gabapentin 300 Mg Capsule 300 Mg PO QHS 30 Days Tylenol (Acetaminophen) 325 Mg Tablet 650 Mg PO PRN Q4HRS PRN 14 Days Doxycycline Hyclate 100 Mg Tablet 100 Mg PO BID 10 Days Nitrostat (Nitroglycerin) 0.4 Mg Tab.subl 0.4 Mg SL PRN Q5MIN PRN Ondansetron Odt (Ondansetron) 4 Mg Tab.rapdis 1 Tab PO PRN Q6-8HRS PRN Lomotil Tablet (Diphenoxylate Hcl/Atropine) 1 Each Tablet 1 Tab PO TID PRN Amiodarone Hcl 200 Mg Tablet 200 Mg PO DAILY 30 Days Eliquis (Apixaban) 5 Mg Tablet 5 Mg PO BID MDD ` Reported Triamcinolone Acetonide 0.1% Oint (Triamcinolone Acetonide) 15 Gm Oint...g. 1 Keshawn TP BID MIX WITH EUCERIN DIRECTED BY PHYSICIAN Metoprolol Succinate ( Xl ) (Metoprolol Succinate) 100 Mg Tab.er.24h 1 Tab PO DAILY Clopidogrel (Clopidogrel Bisulfate) 75 Mg Tablet 75 Mg PO DAILY Aspirin 81 Mg Tab.chew 1 Tab PO DAILY Lipitor (Atorvastatin Calcium) 40 Mg Tablet 40 Mg PO HS Furosemide 40 Mg Tablet 40 Mg PO DAILY Symbicort 160-4.5 Mcg Inhaler (Budesonide/Formoterol Fumarate) 10.2 Gm Hfa.aer.ad 2 Puff IH BID Proair Hfa Inhaler (Albuterol Sulfate) 8.5 Gm Hfa.aer.ad 1 Puff INH PRN Q6HRS PRN Hydroxyzine Hcl 25 Mg Tablet 50 Mg PO QMWF Allergies Allergies: Coded Allergies: Iodinated Contrast Media (Verified Allergy, Intermediate, 11/06/17) ROS General: YES: Fatigue, Malaise; No: Chills, Night Sweats, Appetite, Other PSYCHOLOGICAL ROS: No: Anxiety, Behavioral Disorder, Concentration difficultie, Decreased libido, Depression, Disorientation, Hallucinations, Hostility, Irritablity, Memory difficulties, Mood Swings, Obsessive thoughts, Physical abuse, Sexual abuse, Sleep disturbances, Suicidal ideation, Other Eyes: No Blurry vision, No Decreased vision, No Double vision, No Dry eyes, No Excessive tearing, No Eye Pain, No Itchy Eyes, No Loss of vision, No Photophobia, No Scotomata, No Uses contacts, No Uses glasses, No Other HEENT: No: Heacaches, Visual Changes, Hearing change, Nasal congestion, Nasal discharge, Oral lesions, Sinus pain, Sore Throat, Epistaxis, Sneezing, Snoring, Tinnitus, Vertigo, Vocal changes, Other ALLERGY AND IMMUNOLOGY: No: Hives, Insect Bite Sensitivity, Itchy/Watery Eyes, Nasal Congestion, Post Nasal Drip, Seasonal Allergies, Other Hematological and Lymphatic: No: Bleeding Problems, Blood Clots, Blood Transfusions, Brusing, Night Sweats, Pallor, Swollen Lymph Nodes, Other ENDOCRINE: No: Breast Changes, Galactorrhea, Hair Pattern Changes, Hot Flashes, Malaise/lethargy, Mood Swings, Palpitations, Polydipsia/polyuria, Skin Changes, Temperature Intolerance, Unexpected Weight Changes, Other Breast: No New/Changing Breast Lumps, No Nipple changes, No Nipple discharge, No Other Respiratory: YES: Cough, Orthopnea, Shortness of breath, SOB with excertion, Tachypnea; No: Hemoptysis, Pleuritic Pain, Sputum Changes, Stridor, Wheezing, Other Cardiovascular: yes Paroxysmal Noc. Dyspnea; No Chest Pain, No Palpitations, No Orthopnea, No Edema, No Lt Headedness, No Other Gastrointestinal: Yes Nausea, Yes Vomiting, Yes Abdominal Pain, Yes Diarrhea Genitourinary: No Dysuria, No Frequency, No Incontinence, No Hematuria, No Retention, No Discharge, No Urgency, No Pain, No Flank Pain, No Other, No , No , No , No , No , No , No Musculoskeletal: No Gait Disturbance, No Joint Pain, No Joint Stiffness, No Joint Swelling, No Muscle Pain, No Muscular Weakness, No Pain In:, No Swelling In:, No Other Neurological: No Behavorial Changes, No Bowel/Bladder ControlChng, No Confusion, No Dizziness, No Gait Disturbance, No Headaches, No Impaired Coord/balance, No Memory Loss, No Numbness/Tingling, No Seizures, No Speech Problems, No Tremors, No Visual Changes, No Weakness, No Other Skin: No Dry Skin, No Eczema, No Hair Changes, No Lumps, No Mole Changes, No Mottling, No Nail Changes, No Pruritus, No Rash, No Skin Lesion Changes, No Other, No Acne 8-20 D/W pr intern on chronic respiratory failure with hypoxia -appears to be acute CHF exacerbation due to pulmonary edema due to missed dialysis. Nausea vomiting diarrhea -possibly gastroenteritis from food poisoning from services last week. Will monitor. Given cholelithiasis will obtain right upper quadrant ultrasound. ESRD - MWF HD. Will inform nephrology of admission Coronary artery disease - stable Acute on Chronic congestive heart failure - will need diuresis. last EF 60% in 2020 Asthmatic bronchitis - cont on nebs Arrhythmias - on Chronic anticoagulation on eliquis, rate control with metoprolol Hyperlipidemia - on statin Anemia - of chronic renal disease Moderate protein calorie malnutrition - supplements DM2 - mostly diet controlled, last A1c was 6 FEN - Renal diet PPX - eliquis FULL CODE Dispo - inpatient for N/V/D, missed dialysis, hypoxia 8-21 D/W pr intern on chronic respiratory failure with hypoxia -appears to be acute CHF exacerbation due to pulmonary edema due to missed dialysis. Nausea vomiting diarrhea -possibly gastroenteritis from food poisoning from services last week. Will monitor. Given cholelithiasis will obtain right upper quadrant ultrasound. ESRD - MWF HD. Will inform nephrology of admission Coronary artery disease - stable Acute on Chronic congestive heart failure - will need diuresis. last EF 60% in 2020 Asthmatic bronchitis - cont on nebs Arrhythmias - on Chronic anticoagulation on eliquis, rate control with metoprolol Hyperlipidemia - on statin Anemia - of chronic renal disease Moderate protein calorie malnutrition - supplements DM2 - mostly diet controlled, last A1c was 6 FEN - Renal diet PPX - eliquis FULL CODE Dispo - inpatient for N/V/D, missed dialysis, hypoxia Vitals Vitals Vital Signs Date Time Temp Pulse Resp B/P (MAP) Pulse Ox O2 Delivery O2 Flow Rate FiO2 11/28/20 08:45 62 151/67 11/28/20 07:19 96 Nasal Cannula 3.0 11/28/20 07:00 97.7 18 97.7 Physical Exam General: Alert, Oriented X3, mild distress Heart: Regular rate, Normal S1, Normal S2, Gallops Lungs: Clear Abdomen: Normal bowel sounds, No tenderness Extremities: No clubbing, No cyanosis Skin: No breakdown Labs LABS Laboratory Tests Test 11/28/20 04:00 Sodium Level 139 mmol/L (136-145) Potassium Level 5.1 mmol/L (3.5-5.1) Chloride Level 102 mmol/L (98-107) Carbon Dioxide Level 31 mmol/L (21-32) Anion Gap 6 (6-14) Blood Urea Nitrogen 44 mg/dL (7-20) Creatinine 7.5 mg/dL (0.6-1.0) Estimated GFR (Cockcroft-Gault) 6.4 Glucose Level 128 mg/dL (70-99) Calcium Level 7.9 mg/dL (8.5-10.1) Phosphorus Level 4.2 mg/dL (2.6-4.7) Albumin 3.0 g/dL (3.4-5.0) Assessment and Plan Assessmemt and Plan Problems Medical Problems: (1) Acute pulmonary edema Status: Acute (2) ESRD (end stage renal disease) on dialysis Status: Chronic Comment Review of Relevant I have reviewed the following items mykel (where applicable) has been applied. Labs Laboratory Tests Test 11/26/20 11:22 11/26/20 11:41 11/27/20 04:00 11/28/20 04:00 SARS-CoV-2 RNA (DAVID) Negative (Negative) SARS-CoV-2 Antigen (Rapid) Negative (NEGATIVE) White Blood Count 7.0 x10^3/uL (4.0-11.0) 4.9 x10^3/uL (4.0-11.0) Red Blood Count 3.60 x10^6/uL (3.50-5.40) 3.37 x10^6/uL (3.50-5.40) Hemoglobin 11.7 g/dL (12.0-15.5) 11.0 g/dL (12.0-15.5) Hematocrit 36.4 % (36.0-47.0) 34.3 % (36.0-47.0) Mean Corpuscular Volume 101 fL (79-100) 102 fL (79-100) Mean Corpuscular Hemoglobin 33 pg (25-35) 33 pg (25-35) Mean Corpuscular Hemoglobin Concent 32 g/dL (31-37) 32 g/dL (31-37) Red Cell Distribution Width 14.9 % (11.5-14.5) 14.5 % (11.5-14.5) Platelet Count 203 x10^3/uL (140-400) 165 x10^3/uL (140-400) Neutrophils (%) (Auto) 90 % (31-73) 76 % (31-73) Lymphocytes (%) (Auto) 3 % (24-48) 9 % (24-48) Monocytes (%) (Auto) 7 % (0-9) 12 % (0-9) Eosinophils (%) (Auto) 0 % (0-3) 2 % (0-3) Basophils (%) (Auto) 0 % (0-3) 0 % (0-3) Neutrophils # (Auto) 6.3 x10^3/uL (1.8-7.7) 3.8 x10^3/uL (1.8-7.7) Lymphocytes # (Auto) 0.2 x10^3/uL (1.0-4.8) 0.5 x10^3/uL (1.0-4.8) Monocytes # (Auto) 0.5 x10^3/uL (0.0-1.1) 0.6 x10^3/uL (0.0-1.1) Eosinophils # (Auto) 0.0 x10^3/uL (0.0-0.7) 0.1 x10^3/uL (0.0-0.7) Basophils # (Auto) 0.0 x10^3/uL (0.0-0.2) 0.0 x10^3/uL (0.0-0.2) Segmented Neutrophils % 85 % (35-66) Band Neutrophils % 1 % (0-9) Lymphocytes % 7 % (24-48) Monocytes % 7 % (0-10) Platelet Estimate Adequate (ADEQUATE) Sodium Level 148 mmol/L (136-145) 145 mmol/L (136-145) 139 mmol/L (136-145) Potassium Level 4.7 mmol/L (3.5-5.1) 4.4 mmol/L (3.5-5.1) 5.1 mmol/L (3.5-5.1) Chloride Level 106 mmol/L (98-107) 106 mmol/L (98-107) 102 mmol/L (98-107) Carbon Dioxide Level 31 mmol/L (21-32) 33 mmol/L (21-32) 31 mmol/L (21-32) Anion Gap 11 (6-14) 6 (6-14) 6 (6-14) Blood Urea Nitrogen 53 mg/dL (7-20) 30 mg/dL (7-20) 44 mg/dL (7-20) Creatinine 8.7 mg/dL (0.6-1.0) 5.7 mg/dL (0.6-1.0) 7.5 mg/dL (0.6-1.0) Estimated GFR (Cockcroft-Gault) 5.4 8.7 6.4 BUN/Creatinine Ratio 6 (6-20) Glucose Level 101 mg/dL (70-99) 72 mg/dL (70-99) 128 mg/dL (70-99) Calcium Level 7.6 mg/dL (8.5-10.1) 7.6 mg/dL (8.5-10.1) 7.9 mg/dL (8.5-10.1) Magnesium Level 1.7 mg/dL (1.8-2.4) Total Bilirubin 0.5 mg/dL (0.2-1.0) Aspartate Amino Transf (AST/SGOT) 20 U/L (15-37) Alanine Aminotransferase (ALT/SGPT) 12 U/L (14-59) Alkaline Phosphatase 93 U/L (46-116) Troponin I Quantitative 0.045 ng/mL (0.000-0.055) XD-Rrb-K-Type Natriuretic Peptide > 64134 pg/mL (0-449) Total Protein 6.0 g/dL (6.4-8.2) Albumin 3.0 g/dL (3.4-5.0) 3.0 g/dL (3.4-5.0) Albumin/Globulin Ratio 1.0 (1.0-1.7) Vitamin B12 Level 1004 pg/mL (247-911) Phosphorus Level 4.2 mg/dL (2.6-4.7) Laboratory Tests Test 11/28/20 04:00 Sodium Level 139 mmol/L (136-145) Potassium Level 5.1 mmol/L (3.5-5.1) Chloride Level 102 mmol/L (98-107) Carbon Dioxide Level 31 mmol/L (21-32) Anion Gap 6 (6-14) Blood Urea Nitrogen 44 mg/dL (7-20) Creatinine 7.5 mg/dL (0.6-1.0) Estimated GFR (Cockcroft-Gault) 6.4 Glucose Level 128 mg/dL (70-99) Calcium Level 7.9 mg/dL (8.5-10.1) Phosphorus Level 4.2 mg/dL (2.6-4.7) Albumin 3.0 g/dL (3.4-5.0) Medications Current Medications Sodium Chloride 1,000 ml @ 1,000 mls/hr Q1H PRN IV hypotension; Start 11/26/20 at 14:30; Stop 11/26/20 at 20:29; Status DC Sodium Chloride 1,000 ml @ 400 mls/hr Q2H30M PRN IV PATENCY; Start 11/26/20 at 14:30; Stop 11/27/20 at 02:29; Status DC Info (PHARMACY MONITORING -- do not chart) 1 each PRN DAILY PRN MC SEE COMMENTS; Start 11/26/20 at 14:30; Status UNV Info (PHARMACY MONITORING -- do not chart) 1 each PRN DAILY PRN MC SEE COMMENTS; Start 11/26/20 at 14:30 Ondansetron HCl (Zofran) 4 mg PRN Q4HRS PRN IVP NAUSEA/VOMITING; Start 11/26/20 at 16:00 Tramadol HCl (Ultram) 50 mg PRN Q6HRS PRN PO MILD TO MODERATE PAIN; Start 11/26/20 at 16:00 Guaifenesin (Robitussin Dm) 10 ml PRN Q6HRS PRN PO COUGH; Start 11/26/20 at 16:00 Hydralazine HCl (Apresoline Inj) 10 mg PRN Q4HRS PRN IVP ELEVATED BP, SEE COMM ENTS; Start 11/26/20 at 16:00 Heparin Sodium (Porcine) (Heparin Sodium) 5,000 unit Q8HRS SQ ; Start 11/26/20 at 16:00; Stop 11/26/20 at 22:38; Status DC Acetaminophen (Tylenol) 650 mg PRN Q6HRS PRN PO MILD PAIN / TEMP > 100.3'F; Start 11/26/20 at 16:00 Fentanyl Citrate (Fentanyl 2ml Vial) 25 mcg PRN Q3HRS PRN IVP SEVERE PAIN 7-10 Last administered on 11/27/20at 14:35; Start 11/26/20 at 16:00 Amiodarone HCl (Cordarone) 200 mg DAILY PO Last administered on 11/28/20at 08:45; Start 11/27/20 at 09:00 Apixaban (Eliquis) 5 mg BID PO Last administered on 11/28/20at 08:45; Start 11/26/20 at 22:45 Aspirin (Aspirin Chewable) 81 mg DAILY PO Last administered on 11/28/20at 08:45; Start 11/27/20 at 09:00 Atorvastatin Calcium (Lipitor) 40 mg HS PO Last administered on 11/27/20at 21:33; Start 11/26/20 at 23:00 Memantine (Namenda) 10 mg BID PO Last administered on 11/28/20at 08:45; Start 11/26/20 at 23:00 Metoprolol Succinate (Toprol Xl) 100 mg DAILY PO Last administered on 11/28/20at 08:45; Start 11/27/20 at 09:00 Nitroglycerin (Nitrostat) 0.4 mg PRN Q5MIN PRN SL CHEST PAIN; Start 11/26/20 at 22:45 Sertraline HCl (Zoloft) 50 mg DAILY PO Last administered on 11/28/20at 08:45; Start 11/27/20 at 09:00 Albuterol Sulfate (Ventolin Neb Soln) 2.5 mg RTQID NEB Last administered on 11/28/20at 07:16; Start 11/27/20 at 08:00 Psyllium Hydrophilic Mucilloid (Metamucil Fiber Packet) 1 pkt QHS PO Last administered on 11/27/20at 01:01; Start 11/26/20 at 22:45 Budesonide (Pulmicort) 0.5 mg RTBID NEB Last administered on 11/28/20at 07:16; Start 11/27/20 at 08:00 Calcium Carbonate/ Glycine (Tums) 1,000 mg PRN Q4HRS PRN PO INDIGESTION; Start 11/27/20 at 23:30 Sodium Chloride 1,000 ml @ 1,000 mls/hr Q1H PRN IV hypotension; Start 11/28/20 at 09:45; Stop 11/28/20 at 15:44 Sodium Chloride 1,000 ml @ 400 mls/hr Q2H30M PRN IV PATENCY; Start 11/28/20 at 09:45; Stop 11/28/20 at 21:44 Info (PHARMACY MONITORING -- do not chart) 1 each PRN DAILY PRN MC SEE COMMENTS; Start 11/28/20 at 09:45; Status UNV Info (PHARMACY MONITORING -- do not chart) 1 each PRN DAILY PRN MC SEE COMMENTS; Start 11/28/20 at 09:45; Status UNV Active Scripts Active Tylenol (Acetaminophen) 325 Mg Tablet 650 Mg PO PRN Q4HRS PRN 14 Days Nitrostat (Nitroglycerin) 0.4 Mg Tab.subl 0.4 Mg SL PRN Q5MIN PRN Amiodarone Hcl 200 Mg Tablet 200 Mg PO DAILY 30 Days Eliquis (Apixaban) 5 Mg Tablet 5 Mg PO BID MDD ` Reported Lisinopril 20 Mg Tablet 20 Mg PO DAILY Donepezil Hcl 10 Mg Tablet 1 Tab PO DAILY Carvedilol (Carvedilol) 12.5 Mg Tablet 12.5 Mg PO BIDWMEALS Zoloft (Sertraline Hcl) 50 Mg Tablet 50 Mg PO DAILY Namenda (Memantine Hcl) 10 Mg Tablet 10 Mg PO BID Metoprolol Succinate ( Xl ) (Metoprolol Succinate) 100 Mg Tab.er.24h 1 Tab PO DAILY Clopidogrel (Clopidogrel Bisulfate) 75 Mg Tablet 75 Mg PO DAILY Aspirin 81 Mg Tab.chew 1 Tab PO DAILY Lipitor (Atorvastatin Calcium) 40 Mg Tablet 40 Mg PO HS Symbicort 160-4.5 Mcg Inhaler (Budesonide/Formoterol Fumarate) 10.2 Gm Hfa.aer.ad 2 Puff IH BID Proair Hfa Inhaler (Albuterol Sulfate) 8.5 Gm Hfa.aer.ad 1 Puff INH PRN Q6HRS PRN Hydroxyzine Hcl 25 Mg Tablet 50 Mg PO QMWF Vitals/I & O Vital Sign - Last 24 Hours 11/27/20 11/27/20 11/27/20 11/27/20 11:22 11:45 14:35 15:00 Temp 97.6 97.6 97.6 97.6 Pulse 68 71 Resp 20 24 B/P (MAP) 154/58 (90) 138/58 (84) Pulse Ox 100 100 98 98 O2 Delivery Nasal Cannula Nasal Cannula Nasal Cannula Nasal Cannula O2 Flow Rate 5.0 6.0 6.0 6.0 11/27/20 11/27/20 11/27/20 11/27/20 15:36 19:08 20:12 20:30 Temp 98.9 98.9 Pulse 69 Resp 22 B/P (MAP) 139/64 (89) Pulse Ox 100 93 96 O2 Delivery Nasal Cannula Nasal Cannula Nasal Cannula O2 Flow Rate 5.0 3.0 6.0 3.0 11/27/20 11/27/20 11/28/20 11/28/20 20:31 22:20 03:23 07:00 Temp 98.4 97.8 97.7 98.4 97.8 97.7 Pulse 67 62 69 Resp 18 18 18 B/P (MAP) 147/60 (89) 151/67 (95) 142/65 (90) Pulse Ox 96 97 94 95 O2 Delivery Nasal Cannula Nasal Cannula Nasal Cannula Nasal Cannula O2 Flow Rate 3.0 3.0 3.0 3.0 11/28/20 11/28/20 11/28/20 11/28/20 07:16 07:19 08:45 08:45 Pulse 62 62 B/P (MAP) 151/67 151/67 Pulse Ox 96 96 O2 Delivery Nasal Cannula Nasal Cannula O2 Flow Rate 3.0 3.0 Intake and Output 11/27/20 11/27/20 11/28/20 15:00 23:00 07:00 Intake Total 340 ml 200 ml 500 ml Output Total 300 ml 300 ml Balance 340 ml -100 ml 200 ml Justicifation of Admission Dx: Justifications for Admission: Justification of Admission Dx: N/A SUDHEER ROBLES MD Nov 28, 2020 10:59
[2020-11-28 11:00] VITALS: BP 162/71
[2020-11-28] MEDS ORDERED: LIDOCAINE 2% Multi-Dose 20 ML VIAL. IJ ONE (11:30)
--- NOTE | 2020-11-28 12:54 | PDOC ---
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 Vitals Vital Signs Vital Signs Date Time Temp Pulse Resp B/P (MAP) Pulse Ox O2 Delivery O2 Flow Rate FiO2 11/28/20 11:00 97.8 63 18 162/71 (101) 99 Nasal Cannula 3.0 97.8 Labs Last Labs Laboratory Tests Test 11/27/20 04:00 11/28/20 04:00 White Blood Count 4.9 x10^3/uL (4.0-11.0) Red Blood Count 3.37 x10^6/uL (3.50-5.40) Hemoglobin 11.0 g/dL (12.0-15.5) Hematocrit 34.3 % (36.0-47.0) Mean Corpuscular Volume 102 fL (79-100) Mean Corpuscular Hemoglobin 33 pg (25-35) Mean Corpuscular Hemoglobin Concent 32 g/dL (31-37) Red Cell Distribution Width 14.5 % (11.5-14.5) Platelet Count 165 x10^3/uL (140-400) Neutrophils (%) (Auto) 76 % (31-73) Lymphocytes (%) (Auto) 9 % (24-48) Monocytes (%) (Auto) 12 % (0-9) Eosinophils (%) (Auto) 2 % (0-3) Basophils (%) (Auto) 0 % (0-3) Neutrophils # (Auto) 3.8 x10^3/uL (1.8-7.7) Lymphocytes # (Auto) 0.5 x10^3/uL (1.0-4.8) Monocytes # (Auto) 0.6 x10^3/uL (0.0-1.1) Eosinophils # (Auto) 0.1 x10^3/uL (0.0-0.7) Basophils # (Auto) 0.0 x10^3/uL (0.0-0.2) Sodium Level 145 mmol/L (136-145) 139 mmol/L (136-145) Potassium Level 4.4 mmol/L (3.5-5.1) 5.1 mmol/L (3.5-5.1) Chloride Level 106 mmol/L (98-107) 102 mmol/L (98-107) Carbon Dioxide Level 33 mmol/L (21-32) 31 mmol/L (21-32) Anion Gap 6 (6-14) 6 (6-14) Blood Urea Nitrogen 30 mg/dL (7-20) 44 mg/dL (7-20) Creatinine 5.7 mg/dL (0.6-1.0) 7.5 mg/dL (0.6-1.0) Estimated GFR (Cockcroft-Gault) 8.7 6.4 Glucose Level 72 mg/dL (70-99) 128 mg/dL (70-99) Calcium Level 7.6 mg/dL (8.5-10.1) 7.9 mg/dL (8.5-10.1) Phosphorus Level 4.2 mg/dL (2.6-4.7) Albumin 3.0 g/dL (3.4-5.0) Laboratory Tests Test 11/28/20 04:00 Sodium Level 139 mmol/L (136-145) Potassium Level 5.1 mmol/L (3.5-5.1) Chloride Level 102 mmol/L (98-107) Carbon Dioxide Level 31 mmol/L (21-32) Anion Gap 6 (6-14) Blood Urea Nitrogen 44 mg/dL (7-20) Creatinine 7.5 mg/dL (0.6-1.0) Estimated GFR (Cockcroft-Gault) 6.4 Glucose Level 128 mg/dL (70-99) Calcium Level 7.9 mg/dL (8.5-10.1) Phosphorus Level 4.2 mg/dL (2.6-4.7) Albumin 3.0 g/dL (3.4-5.0) Assessment Assessment Problems Medical Problems: (1) Acute pulmonary edema Status: Acute (2) ESRD (end stage renal disease) on dialysis Status: Chronic Plan Plan of Care Problems Medical Problems: (1) Acute pulmonary edema Status: Acute (2) ESRD (end stage renal disease) on dialysis Status: Chronic WENDI SUAREZ MD Nov 28, 2020 12:54
[2020-11-28 19:00] VITALS: BP 157/56
[2020-11-28] MEDS: PSYLLIUM HUSK (SUGAR FREE) 1 PKT PACKET PO SCH (20:46)
[2020-11-28] MEDS: ATORVASTATIN CALCIUM 40 MG TABLET. PO SCH (20:46)
[2020-11-28 23:00] VITALS: BP 138/64
[2020-11-29 03:00] VITALS: BP 157/84
[2020-11-29] MEDS: ALBUTEROL SULFATE 2.5 MG/3 ML NEBU. NEB SCH ×4 (06:11→20:17)
[2020-11-29] MEDS: BUDESONIDE 0.5 MG/2 ML NEBU. NEB SCH ×2 (06:11→20:17)
[2020-11-29 06:35] VITALS: BP 147/72
--- NOTE | 2020-11-29 08:06 | RAD ---
XR CHEST 1V INDICATION: Reason: CHF 662 / Spl. Instructions: / History: . COMPARISON STUDY: 11/26/2020. FINDINGS: Lungs: Normal lung volume. Slightly improved interstitial opacities. Pleura: No pleural effusion or pneumothorax. Heart and Mediastinum: Stable cardiomediastinal silhouette and great vessels. IMPRESSION: Slightly improved interstitial opacities. Electronically signed by: Lg Whitman MD (11/29/2020 8:04 AM) [facility]ENTERDarling
[2020-11-29] MEDS: APIXABAN 5 MG TABLET. PO SCH ×2 (09:11→20:27)
[2020-11-29] MEDS: AMIODARONE HCL 200 MG TABLET. PO SCH (09:11)
[2020-11-29] MEDS: SERTRALINE 50 MG TABLET. PO SCH (09:11)
[2020-11-29] MEDS: ASPIRIN CHEWABLE 81 MG TABLET. PO SCH (09:11)
[2020-11-29] MEDS: MEMANTINE 10 MG TABLET. PO SCH ×2 (09:11→20:27)
[2020-11-29] MEDS: METOPROLOL SUCC 24HR ER 100 MG TAB.ER.24H. PO SCH (09:12)
--- NOTE | 2020-11-29 10:51 | PDOC ---
PROGRESS NOTES Date of Service: DATE: 11/29/20 TIME: 10:51 Chief Complaint Chief Complaint VTE Prophylaxis Ordered VTE Prophylaxis Devices: Yes VTE Pharmacological Prophylaxi: Yes Assessment/Plan Assessment/Plan A/P: Acute on chronic respiratory failure with hypoxia -appears to be acute CHF exacerbation due to pulmonary edema due to missed dialysis. Nausea vomiting diarrhea -possibly gastroenteritis from food poisoning from services last week. Will monitor. Given cholelithiasis will obtain right upper quadrant ultrasound. ESRD - MWF HD. Will inform nephrology of admission Coronary artery disease - stable Acute on Chronic congestive heart failure - will need diuresis. last EF 60% in 2019 Asthmatic bronchitis - cont on nebs Arrhythmias - on Chronic anticoagulation on eliquis, rate control with metoprolol Hyperlipidemia - on statin Anemia - of chronic renal disease Moderate protein calorie malnutrition - supplements DM2 - mostly diet controlled, last A1c was 6 FEN - Renal diet PPX - eliquis FULL CODE Dispo - inpatient for N/V/D, missed dialysis, hypoxia d/w rn Justifications for Admission Justifications for Admission Other Justification History of Present Illness History of Present Illness History of Present Illness History of Present Illness Ms Banks is a 75-year-old female, 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 She has been having nausea after dialysis she noted on 11/23/2020 but initially thought this could have been from food she had from her 's last week and possibly anxiety. She experienced the same nausea and diarrhea 818 and skipped dialysis and rescheduled for today but was unable to attend due to worsening shortness of breath and nausea and abdominal pain with diarrhea. Of note she is requiring 6 L nasal cannula oxygen which is her home O2 requirement of 3 L. Vaccinated for COVID-19. She denies any cough or fever. Patient denies any chest pain. No recent travel or sick contacts Labs with WBC 7, Hb 11.7 with MCV 101, platelets 203, NA NA 148, K4.7, BUN 33, CR 8.7, glucose 101, calcium 7.6, magnesium 1.7, albumin 3, NT proBNP greater than 35,000, troponin 0.045 Rapid COVID-19 negative EKG approximately 79 bpm appears to be atrial fibrillation with no significant changes from prior EKG. Chest radiograph cardiomegaly increased pulmonary vascular congestion Noncontrast CT abdomen pelvis with cholelithiasis otherwise no acute findings. Admitted for further care. Past Medical History Cardiovascular: AFIB, CAD, CHF, HTN, Hyperlipidemia, Other Pulmonary: Asthma, COPD, Other CENTRAL NERVOUS SYSTEM: Other GI: Diverticulosis Heme/Onc: Anemia NOS Psych: Anxiety Rheumatologic: No pertinent hx Infectious disease: No pertinent hx Renal/: Chronic renal failure Endocrine: Diabetes, Hyperparathyroidism Past Surgical History Past Surgical History: Appendectomy, Arthroscopy, Cataract Removal, Other Family History Family History: Coronary Artery Disease, Diabetes Social History Smoke: Quit ALCOHOL: none Drugs: None Current Medications Current Medications Active Scripts Active Culturelle (Lactobacillus Rhamnosus Gg) 1 Each Cap.sprink 1 Cap PO BID 30 Days Dok (Docusate Sodium) 100 Mg Capsule 100 Mg PO PRN BID PRN 30 Days Guaifenesin 100 Mg/5 Ml Liquid 200 Mg PO PRN Q4HRS PRN 14 Days Gabapentin 300 Mg Capsule 300 Mg PO QHS 30 Days Tylenol (Acetaminophen) 325 Mg Tablet 650 Mg PO PRN Q4HRS PRN 14 Days Doxycycline Hyclate 100 Mg Tablet 100 Mg PO BID 10 Days Nitrostat (Nitroglycerin) 0.4 Mg Tab.subl 0.4 Mg SL PRN Q5MIN PRN Ondansetron Odt (Ondansetron) 4 Mg Tab.rapdis 1 Tab PO PRN Q6-8HRS PRN Lomotil Tablet (Diphenoxylate Hcl/Atropine) 1 Each Tablet 1 Tab PO TID PRN Amiodarone Hcl 200 Mg Tablet 200 Mg PO DAILY 30 Days Eliquis (Apixaban) 5 Mg Tablet 5 Mg PO BID MDD ` Reported Triamcinolone Acetonide 0.1% Oint (Triamcinolone Acetonide) 15 Gm Oint...g. 1 Keshawn TP BID MIX WITH EUCERIN DIRECTED BY PHYSICIAN Metoprolol Succinate ( Xl ) (Metoprolol Succinate) 100 Mg Tab.er.24h 1 Tab PO DAILY Clopidogrel (Clopidogrel Bisulfate) 75 Mg Tablet 75 Mg PO DAILY Aspirin 81 Mg Tab.chew 1 Tab PO DAILY Lipitor (Atorvastatin Calcium) 40 Mg Tablet 40 Mg PO HS Furosemide 40 Mg Tablet 40 Mg PO DAILY Symbicort 160-4.5 Mcg Inhaler (Budesonide/Formoterol Fumarate) 10.2 Gm Hfa.aer.ad 2 Puff IH BID Proair Hfa Inhaler (Albuterol Sulfate) 8.5 Gm Hfa.aer.ad 1 Puff INH PRN Q6HRS PRN Hydroxyzine Hcl 25 Mg Tablet 50 Mg PO QMWF Allergies Allergies: Coded Allergies: Iodinated Contrast Media (Verified Allergy, Intermediate, 11/06/17) ROS General: YES: Fatigue, Malaise; No: Chills, Night Sweats, Appetite, Other PSYCHOLOGICAL ROS: No: Anxiety, Behavioral Disorder, Concentration difficultie, Decreased libido, Depression, Disorientation, Hallucinations, Hostility, Irritablity, Memory difficulties, Mood Swings, Obsessive thoughts, Physical abuse, Sexual abuse, Sleep disturbances, Suicidal ideation, Other Eyes: No Blurry vision, No Decreased vision, No Double vision, No Dry eyes, No Excessive tearing, No Eye Pain, No Itchy Eyes, No Loss of vision, No Photophobia, No Scotomata, No Uses contacts, No Uses glasses, No Other HEENT: No: Heacaches, Visual Changes, Hearing change, Nasal congestion, Nasal discharge, Oral lesions, Sinus pain, Sore Throat, Epistaxis, Sneezing, Snoring, Tinnitus, Vertigo, Vocal changes, Other ALLERGY AND IMMUNOLOGY: No: Hives, Insect Bite Sensitivity, Itchy/Watery Eyes, Nasal Congestion, Post Nasal Drip, Seasonal Allergies, Other Hematological and Lymphatic: No: Bleeding Problems, Blood Clots, Blood Transfusions, Brusing, Night Sweats, Pallor, Swollen Lymph Nodes, Other ENDOCRINE: No: Breast Changes, Galactorrhea, Hair Pattern Changes, Hot Flashes, Malaise/lethargy, Mood Swings, Palpitations, Polydipsia/polyuria, Skin Changes, Temperature Intolerance, Unexpected Weight Changes, Other Breast: No New/Changing Breast Lumps, No Nipple changes, No Nipple discharge, No Other Respiratory: YES: Cough, Orthopnea, Shortness of breath, SOB with excertion, Tachypnea; No: Hemoptysis, Pleuritic Pain, Sputum Changes, Stridor, Wheezing, Other Cardiovascular: yes Paroxysmal Noc. Dyspnea; No Chest Pain, No Palpitations, No Orthopnea, No Edema, No Lt Headedness, No Other Gastrointestinal: Yes Nausea, Yes Vomiting, Yes Abdominal Pain, Yes Diarrhea Genitourinary: No Dysuria, No Frequency, No Incontinence, No Hematuria, No Retention, No Discharge, No Urgency, No Pain, No Flank Pain, No Other, No , No , No , No , No , No , No Musculoskeletal: No Gait Disturbance, No Joint Pain, No Joint Stiffness, No Joint Swelling, No Muscle Pain, No Muscular Weakness, No Pain In:, No Swelling In:, No Other Neurological: No Behavorial Changes, No Bowel/Bladder ControlChng, No Confusion, No Dizziness, No Gait Disturbance, No Headaches, No Impaired Coord/balance, No Memory Loss, No Numbness/Tingling, No Seizures, No Speech Problems, No Tremors, No Visual Changes, No Weakness, No Other Skin: No Dry Skin, No Eczema, No Hair Changes, No Lumps, No Mole Changes, No Mottling, No Nail Changes, No Pruritus, No Rash, No Skin Lesion Changes, No Other, No Acne 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 Nausea vomiting diarrhea -possibly gastroenteritis from food poisoning from services last week. Will monitor. Given cholelithiasis will obtain right upper quadrant ultrasound. ESRD - MWF HD. Will inform nephrology of admission Coronary artery disease - stable Acute on Chronic congestive heart failure - will need diuresis. 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 Nausea vomiting diarrhea -possibly gastroenteritis from food poisoning from services last week. Will monitor. Given cholelithiasis will obtain right upper quadrant ultrasound. ESRD - MWF HD. Will inform nephrology of admission Coronary artery disease - stable Acute on Chronic congestive heart failure - will need diuresis. 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 Nausea vomiting diarrhea -possibly gastroenteritis from food poisoning from [facility] services last week. Will monitor. Given cholelithiasis will obtain right upper quadrant ultrasound. ESRD - MWF HD. Will inform nephrology of admission Coronary artery disease - stable Acute on Chronic congestive heart failure - will need diuresis. last EF 60% in 2019 Asthmatic bronchitis - cont on nebs Arrhythmias - on Chronic anticoagulation on eliquis, rate control with metoprolol Hyperlipidemia - on statin Anemia - of chronic renal disease Moderate protein calorie malnutrition - supplements DM2 - mostly diet controlled, last A1c was 6 FEN - Renal diet PPX - eliquis FULL CODE Dispo - inpatient for N/V/D, missed dialysis, hypoxia Vitals Vitals Vital Signs Date Time Temp Pulse Resp B/P (MAP) Pulse Ox O2 Delivery O2 Flow Rate FiO2 11/29/20 09:12 66 147/72 11/29/20 06:35 98.2 18 96 Nasal Cannula 3.0 98.2 Physical Exam General: Alert, Oriented X3, mild distress Heart: Regular rate, Normal S1, Normal S2, Gallops Lungs: Clear Abdomen: Normal bowel sounds, No tenderness Extremities: No clubbing, No cyanosis Skin: No breakdown Labs LABS EXAM: ULTRASOUND ABDOMEN LIMITED CLINICAL HISTORY: Reason: Nausea and vomiting, concern for biliary colic COMPARISON: CT abdomen November 26, 2020 Findings: Imaged pancreas, aorta and IVC are normal. The tail the pancreas is poorly visualized due to overlying bowel gas shadowing. Normal liver echogenicity. No liver mass. No morphologic changes of liver cirrhosis evident. Right hepatic lobe length 10.4 cm which is normal. There are some very tiny echogenic dependent gallstones present. No inflammatory changes in the gallbladder. No biliary ductal dilation the common bile duct diameter is 3 mm. Right kidney is atrophic with a length of 7.1 cm and demonstrates cortical atrophy and increased parenchymal echogenicity typical of chronic medical renal disease. Spleen and left kidney were not evaluated. IMPRESSION: 1. Cholelithiasis. No inflammatory changes of the gallbladder evident. No biliary ductal dilation. 2. Sequela of chronic medical renal disease with atrophy and increased parenchymal echogenicity of the right kidney. Electronically signed by: Dk Schumacher MD (11/27/2020 6:30 AM) [facility] DICTATED and SIGNED BY: DK SCHUMACHER MD DATE: 11/27/20 [id number] 0 Signed PATIENT: WANDA BANKS ACCOUNT: [id number] : 1945 LOCATION: [facility] AGE: 75 SEX: F EXAM STATUS: ADM IN ORD. PHYSICIAN: SUDHEER ROBLES MD REASON: CHF 662 PROCEDURE: CHEST AP ONLY XR CHEST 1V INDICATION: Reason: CHF 662 / Spl. Instructions: / History: . COMPARISON STUDY: 11/26/2020. FINDINGS: Lungs: Normal lung volume. Slightly improved interstitial opacities. Pleura: No pleural effusion or pneumothorax. Heart and Mediastinum: Stable cardiomediastinal silhouette and great vessels. IMPRESSION: Slightly improved interstitial opacities. Electronically signed by: Christina Kinney MD (11/29/2020 8:04 AM) [facility] DICTATED and SIGNED BY: CHRISTINA KINNEY MD DATE: 11/29/20 [id number] 0 Assessment and Plan Assessmemt and Plan Problems Medical Problems: (1) Acute pulmonary edema Status: Acute (2) ESRD (end stage renal disease) on dialysis Status: Chronic Comment Review of Relevant I have reviewed the following items mykel (where applicable) has been applied. Labs Laboratory Tests Test 11/28/20 04:00 Sodium Level 139 mmol/L (136-145) Potassium Level 5.1 mmol/L (3.5-5.1) Chloride Level 102 mmol/L (98-107) Carbon Dioxide Level 31 mmol/L (21-32) Anion Gap 6 (6-14) Blood Urea Nitrogen 44 mg/dL (7-20) Creatinine 7.5 mg/dL (0.6-1.0) Estimated GFR (Cockcroft-Gault) 6.4 Glucose Level 128 mg/dL (70-99) Calcium Level 7.9 mg/dL (8.5-10.1) Phosphorus Level 4.2 mg/dL (2.6-4.7) Albumin 3.0 g/dL (3.4-5.0) Medications Current Medications Sodium Chloride 1,000 ml @ 1,000 mls/hr Q1H PRN IV hypotension; Start 11/26/20 at 14:30; Stop 11/26/20 at 20:29; Status DC Sodium Chloride 1,000 ml @ 400 mls/hr Q2H30M PRN IV PATENCY; Start 11/26/20 at 14:30; Stop 11/27/20 at 02:29; Status DC Info (PHARMACY MONITORING -- do not chart) 1 each PRN DAILY PRN MC SEE COMMENTS ; Start 11/26/20 at 14:30; Status UNV Info (PHARMACY MONITORING -- do not chart) 1 each PRN DAILY PRN MC SEE COMMENTS; Start 11/26/20 at 14:30 Ondansetron HCl (Zofran) 4 mg PRN Q4HRS PRN IVP NAUSEA/VOMITING; Start 11/26/20 at 16:00 Tramadol HCl (Ultram) 50 mg PRN Q6HRS PRN PO MODERATE PAIN, SEVERE PAIN; Start 11/26/20 at 16:00 Guaifenesin (Robitussin Dm) 10 ml PRN Q6HRS PRN PO COUGH; Start 11/26/20 at 16:00 Hydralazine HCl (Apresoline Inj) 10 mg PRN Q4HRS PRN IVP ELEVATED BP, SEE COMMENTS; Start 11/26/20 at 16:00 Heparin Sodium (Porcine) (Heparin Sodium) 5,000 unit Q8HRS SQ ; Start 11/26/20 at 16:00; Stop 11/26/20 at 22:38; Status DC Acetaminophen (Tylenol) 650 mg PRN Q6HRS PRN PO MILD PAIN / TEMP > 100.3'F; Start 11/26/20 at 16:00 Fentanyl Citrate (Fentanyl 2ml Vial) 25 mcg PRN Q3HRS PRN IVP SEVERE PAIN 7-10 Last administered on 11/27/20at 14:35; Start 11/26/20 at 16:00 Amiodarone HCl (Cordarone) 200 mg DAILY PO Last administered on 11/29/20 09:11; Start 11/27/20 at 09:00 Apixaban (Eliquis) 5 mg BID PO Last administered on 11/29/20at 09:11; Start 11/26/20 at 22:45 Aspirin (Aspirin Chewable) 81 mg DAILY PO Last administered on 11/29/20 09:11; Start 11/27/20 at 09:00 Atorvastatin Calcium (Lipitor) 40 mg HS PO Last administered on 11/28/20at 20:46; Start 11/26/20 at 23:00 Memantine (Namenda) 10 mg BID PO Last administered on 11/29/20 09:11; Start 11/26/20 at 23:00 Metoprolol Succinate (Toprol Xl) 100 mg DAILY PO Last administered on 11/29/20at 09:12; Start 11/27/20 at 09:00 Nitroglycerin (Nitrostat) 0.4 mg PRN Q5MIN PRN SL CHEST PAIN; Start 11/26/20 at 22:45 Sertraline HCl (Zoloft) 50 mg DAILY PO Last administered on 11/29/20at 09:11; Start 11/27/20 at 09:00 Albuterol Sulfate (Ventolin Neb Soln) 2.5 mg RTQID NEB Last administered on 11/29/20at 06:11; Start 11/27/20 at 08:00 Psyllium Hydrophilic Mucilloid (Metamucil Fiber Packet) 1 pkt QHS PO Last administered on 11/28/20at 20:46; Start 11/26/20 at 22:45 Budesonide (Pulmicort) 0.5 mg RTBID NEB Last administered on 11/29/20at 06:11; Start 11/27/20 at 08:00 Calcium Carbonate/ Glycine (Tums) 1,000 mg PRN Q4HRS PRN PO INDIGESTION; Start 11/27/20 at 23:30 Sodium Chloride 1,000 ml @ 1,000 mls/hr Q1H PRN IV hypotension; Start 11/28/20 at 09:45; Stop 11/28/20 at 15:44; Status DC Sodium Chloride 1,000 ml @ 400 mls/hr Q2H30M PRN IV PATENCY; Start 11/28/20 at 09:45; Stop 11/28/20 at 21:44; Status DC Info (PHARMACY MONITORING -- do not chart) 1 each PRN DAILY PRN MC SEE COMMENTS; Start 11/28/20 at 09:45; Status UNV Info (PHARMACY MONITORING -- do not chart) 1 each PRN DAILY PRN MC SEE COMMENTS; Start 11/28/20 at 09:45; Status UNV Lidocaine HCl (Lidocaine 2% 20ml Vial) 20 ml 1X ONCE IJ ; Start 11/28/20 at 11:30; Stop 11/28/20 at 11:31; Status DC Active Scripts Active Tylenol (Acetaminophen) 325 Mg Tablet 650 Mg PO PRN Q4HRS PRN 14 Days Nitrostat (Nitroglycerin) 0.4 Mg Tab.subl 0.4 Mg SL PRN Q5MIN PRN Amiodarone Hcl 200 Mg Tablet 200 Mg PO DAILY 30 Days Eliquis (Apixaban) 5 Mg Tablet 5 Mg PO BID MDD ` Reported Lisinopril 20 Mg Tablet 20 Mg PO DAILY Donepezil Hcl 10 Mg Tablet 1 Tab PO DAILY Carvedilol (Carvedilol) 12.5 Mg Tablet 12.5 Mg PO BIDWMEALS Zoloft (Sertraline Hcl) 50 Mg Tablet 50 Mg PO DAILY Namenda (Memantine Hcl) 10 Mg Tablet 10 Mg PO BID Metoprolol Succinate ( Xl ) (Metoprolol Succinate) 100 Mg Tab.er.24h 1 Tab PO DAILY Clopidogrel (Clopidogrel Bisulfate) 75 Mg Tablet 75 Mg PO DAILY Aspirin 81 Mg Tab.chew 1 Tab PO DAILY Lipitor (Atorvastatin Calcium) 40 Mg Tablet 40 Mg PO HS Symbicort 160-4.5 Mcg Inhaler (Budesonide/Formoterol Fumarate) 10.2 Gm Hfa.aer.ad 2 Puff IH BID Proair Hfa Inhaler (Albuterol Sulfate) 8.5 Gm Hfa.aer.ad 1 Puff INH PRN Q6HRS PRN Hydroxyzine Hcl 25 Mg Tablet 50 Mg PO QMWF Vitals/I & O Vital Sign - Last 24 Hours 11/28/20 11/28/20 11/28/20 11/28/20 11:00 16:51 19:00 19:49 Temp 97.8 98.2 97.8 98.2 Pulse 63 78 Resp 18 18 B/P (MAP) 162/71 (101) 157/56 (89) Pulse Ox 99 96 97 O2 Delivery Nasal Cannula Nasal Cannula Nasal Cannula O2 Flow Rate 3.0 3.0 3.0 3.0 11/28/20 11/28/20 11/28/20 11/29/20 20:35 20:35 23:00 03:00 Temp 98.1 97.7 98.1 97.7 Pulse 74 65 Resp 18 18 B/P (MAP) 138/64 (88) 157/84 (108) Pulse Ox 98 99 97 96 O2 Delivery Nasal Cannula Nasal Cannula O2 Flow Rate 3.0 3.0 3.0 3.0 11/29/20 11/29/20 11/29/20 11/29/20 06:12 06:12 06:35 09:11 Temp 98.2 98.2 Pulse 66 66 Resp 18 B/P (MAP) 147/72 (97) 147/72 Pulse Ox 96 96 96 O2 Delivery Nasal Cannula Nasal Cannula Nasal Cannula O2 Flow Rate 3.0 3.0 3.0 11/29/20 09:12 Pulse 66 B/P (MAP) 147/72 Intake and Output 11/28/20 11/28/20 11/29/20 15:00 23:00 07:00 Intake Total 200 ml Output Total 0 ml Balance 0 ml 200 ml Justicifation of Admission Dx: Justifications for Admission: Justification of Admission Dx: N/A SUDHEER ROBLES MD Nov 29, 2020 10:51
[2020-11-29 11:00] VITALS: BP 159/68
[2020-11-29] MEDS ORDERED: ONDANSETRON ODT 4 MG TAB.RAPDIS. PO PRN (12:15)
[2020-11-29 15:00] VITALS: BP 138/83
[2020-11-29 19:04] VITALS: BP 147/59
[2020-11-29] MEDS: PSYLLIUM HUSK (SUGAR FREE) 1 PKT PACKET PO SCH (20:27)
[2020-11-29] MEDS: ATORVASTATIN CALCIUM 40 MG TABLET. PO SCH (20:27)
--- NOTE | 2020-11-29 21:56 | RAD ---
CT HEAD/BRAIN WO History: Reason: AMS / Spl. Instructions: / History: Comparison: January 27, 2019 Technique: Noncontrast CT imaging was performed of the head. Exposure: One or more of the following individualized dose reduction techniques were utilized for thi s examination: 1. Automated exposure control 2. Adjustment of the mA and/or kV according to patient size 3. Use of iterative reconstruction technique. Findings: No intracranial hemorrhage. No mass effect. No hydrocephalus. Moderate brain parenchymal volume loss. Moderate foci of decreased attenuation within the hemispheric white matter, most often due to chronic microvascular ischemia, similar compared to prior. Chronic right frontal infarct, unchanged. Chronic bilateral cerebellar infarcts. Chronic left thalami c lacunar infarct. Interval development of right basal ganglia and right thalamic lacunar infarcts. Imaged orbits are unremarkable. Imaged paranasal sinuses and mastoid air cells are clear. No acute ca lvarial fracture. Impression: 1. No acute intracranial hemorrhage. 2. Interval development of right basal ganglia and thalamic chronic appearing lacunar infarcts. If p ersistent clinical concern for acute ischemia, recommend MRI to further evaluate. 3. Chronic infarcts within the right frontal, left thalamus and bilateral cerebellum. Electronically signed by: Neal Ortega DO (11/29/2020 9:53 PM) [facility]
[2020-11-29 22:12] VITALS: BP 155/70
[2020-11-30 02:57] VITALS: BP 166/69
[2020-11-30 07:00] VITALS: BP 153/61
[2020-11-30 07:10] LABS: BASO % 1 % (0-3); EOS # 0.1 x10^3/uL (0.0-0.7); EOS % 2 % (0-3); HEMATOCRIT 37.6 % (36.0-47.0); HEMOGLOBIN 12.1 g/dL (12.0-15.5); LYMPH # 0.5 x10^3/uL (1.0-4.8); LYMPH % 14 % (24-48); MEAN CORPUSCULAR HEMOGLOBIN 33 pg (25-35); MEAN CORPUSCULAR HGB CONC 32 g/dL (31-37); MEAN CORPUSCULAR VOLUME 101 fL (79-100); MONO # 0.5 x10^3/uL (0.0-1.1); MONO % 13 % (0-9); NEUT # 2.7 x10^3/uL (1.8-7.7); NEUT % 70 % (31-73); PLATELET COUNT 187 x10^3/uL (140-400); RED BLOOD COUNT 3.71 x10^6/uL (3.50-5.40); RED CELL DISTRIBUTION WIDTH 14.5 % (11.5-14.5); WHITE BLOOD COUNT 3.8 x10^3/uL (4.0-11.0)
[2020-11-30 07:44] LABS: CALCIUM 8.2 mg/dL (8.5-10.1); CREATININE 6.9 mg/dL (0.6-1.0); PHOSPHORUS 4.7 mg/dL (2.6-4.7); POTASSIUM 5.7 mmol/L (3.5-5.1)
[2020-11-30] MEDS: APIXABAN 5 MG TABLET. PO SCH ×2 (09:22→20:29)
[2020-11-30] MEDS: METOPROLOL SUCC 24HR ER 100 MG TAB.ER.24H. PO SCH (09:22)
[2020-11-30] MEDS: ASPIRIN CHEWABLE 81 MG TABLET. PO SCH (09:22)
[2020-11-30] MEDS: SERTRALINE 50 MG TABLET. PO SCH (09:23)
[2020-11-30] MEDS: AMIODARONE HCL 200 MG TABLET. PO SCH (09:23)
[2020-11-30] MEDS: MEMANTINE 10 MG TABLET. PO SCH ×2 (09:23→20:29)
[2020-11-30 11:00] VITALS: BP 173/80
[2020-11-30] MEDS: ALBUTEROL SULFATE 2.5 MG/3 ML NEBU. NEB SCH ×3 (11:40→21:01)
--- NOTE | 2020-11-30 12:05 | PDOC ---
Renal-Progress Notes Subjective Notes Notes SOME CONFUSION History of Present Illness Hx of present illness STABLE Vitals Vitals Vital Signs Date Time Temp Pulse Resp B/P (MAP) Pulse Ox O2 Delivery O2 Flow Rate FiO2 11/30/20 11:40 98 Nasal Cannula 3.0 11/30/20 09:23 66 153/61 11/30/20 07:00 98.0 16 98.0 Weight Weight [ ] I.O. Intake and Output Intake and Output 11/30/20 07:00 Intake Total 200 ml Output Total 200 ml Balance 0 ml Intake Oral 200 ml Output Urine Total 200 ml # Voids 1 # Bowel Movements 2 Labs Labs Laboratory Tests Test 11/29/20 16:15 11/30/20 05:40 Ionized Calcium 1.05 mmol/L (1.13-1.32) White Blood Count 3.8 x10^3/uL (4.0-11.0) Red Blood Count 3.71 x10^6/uL (3.50-5.40) Hemoglobin 12.1 g/dL (12.0-15.5) Hematocrit 37.6 % (36.0-47.0) Mean Corpuscular Volume 101 fL (79-100) Mean Corpuscular Hemoglobin 33 pg (25-35) Mean Corpuscular Hemoglobin Concent 32 g/dL (31-37) Red Cell Distribution Width 14.5 % (11.5-14.5) Platelet Count 187 x10^3/uL (140-400) Neutrophils (%) (Auto) 70 % (31-73) Lymphocytes (%) (Auto) 14 % (24-48) Monocytes (%) (Auto) 13 % (0-9) Eosinophils (%) (Auto) 2 % (0-3) Basophils (%) (Auto) 1 % (0-3) Neutrophils # (Auto) 2.7 x10^3/uL (1.8-7.7) Lymphocytes # (Auto) 0.5 x10^3/uL (1.0-4.8) Monocytes # (Auto) 0.5 x10^3/uL (0.0-1.1) Eosinophils # (Auto) 0.1 x10^3/uL (0.0-0.7) Basophils # (Auto) 0.0 x10^3/uL (0.0-0.2) Sodium Level 140 mmol/L (136-145) Potassium Level 5.7 mmol/L (3.5-5.1) Chloride Level 100 mmol/L (98-107) Carbon Dioxide Level 35 mmol/L (21-32) Anion Gap 5 (6-14) Blood Urea Nitrogen 45 mg/dL (7-20) Creatinine 6.9 mg/dL (0.6-1.0) Estimated GFR (Cockcroft-Gault) 7.0 Glucose Level 74 mg/dL (70-99) Calcium Level 8.2 mg/dL (8.5-10.1) Phosphorus Level 4.7 mg/dL (2.6-4.7) Albumin 3.0 g/dL (3.4-5.0) Review of Systems Constitutional: yes: alert Ears/Nose/Throat: Yes: no symptom reported Pulmonary: Yes dyspnea Cardiovascular: Yes no symptom reported Gastrointestional: Yes: no symptom reported Genitourinary: Yes: no symptom reported Musculoskeletal: Yes: muscle stiffness Skin: Yes no symptom reported Psychiatric/Neurological: Yes: confusion Physical Exam General Appearance: no apparent distress Skin: warm Respiratory: decreased breath sounds Heart: S1S2 Abdomen: soft, bowel sounds present Genitourinary: bladder flat Extremities: pulses present Neurology: alert, confused Assessment Assessment IMP HYPOXIA ACUTE ON CHRONIC HYPOXIC RESP FAILURE ACUTE ON CHRONIC DIASTOLIC CHF O2 DEPENDENT COPD ENCEPHALOPATHY ESRD HYPERKALEMIA ANEMIA ABD PAIN DM II HTN PLAN HD TODAY UF TO TW PARISA WHEN NEEDED WILL FOLLOW EDITH CLEARY MD Nov 30, 2020 12:05
--- NOTE | 2020-11-30 12:22 | CARD ---
MR#: [id number] Date of Study: 11/30/2020 Ordering Physician: SUDHEER ROBLES, Referring Physician: SUDHEER ROBLES Tech: Devora Rodriguez [facility] APPROVED REPORT EXAM: Two-dimensional and M-mode echocardiogram with Doppler and color Doppler. Other Information Quality : GoodHR: 60bpm Rhythm : NSR INDICATION Congestive Heart Failure RISK FACTORS Hypertension 2D DIMENSIONS RVDd3.5 (2.9-3.5cm)Left Atrium(2D)3.9 (1.6-4.0cm) IVSd1.5 (0.7-1.1cm)Aortic Root(2D)3.1 (2.0-3.7cm) LVDd5.1 (3.9-5.9cm)LVOT Diameter1.7 (1.8-2.4cm) PWd1.6 (0.7-1.1cm) Aortic Valve AoV Peak Vipul.134.6cm/sAoV VTI30.7cm AO Peak GR.7.2mmHgLVOT Peak Vipul.111.4cm/s AO Mean GR.3mmHgAVA (VMAX)1.79cm2 Mitral Valve MV E Bysszudo851.0cm/sMV DECEL KAND275jz MV A Jodqjcbu28.7cm/sE/A Ratio1.0 Pulmonary Valve PV Peak Vihrbahe719.6cm/s Tricuspid Valve TR P. Tpljwnsq661ii/sTR Peak Gr.52mmHg LEFT VENTRICLE The left ventricle is normal size. There is moderate to severe concentric left ventricular hypertroph y. There is moderate LV dysfunction. EF 40% There is global hypokinesis of the left ventricle. Tissue Doppler imaging reveals moderate left ventricular diastolic dysfunction. RIGHT VENTRICLE The right ventricle is mildly dilated. The right ventricle is mildly hypertrophied. The right ventric ular systolic function is normal. ATRIA The left atrium is mildly dilated. The right atrium is moderately dilated. The interatrial septum is intact with no evidence for an atrial septal defect or patent foramen ovale as noted on 2-D or Dopple r imaging. AORTIC VALVE The aortic valve is normal in structure and function. Doppler and Color Flow revealed no significant aortic regurgitation. There is no significant aortic valvular stenosis. MITRAL VALVE The mitral valve is normal in structure and function. There is no evidence of mitral valve prolapse. There is no mitral valve stenosis. Doppler and Color-flow revealed mild mitral regurgitation. TRICUSPID VALVE The tricuspid valve is normal in structure and function. Doppler and Color Flow revealed moderate to severe tricuspid regurgitation. Estimated PAP 60 mmHg. There is no tricuspid valve stenosis. PULMONIC VALVE Doppler and Color Flow revealed mild pulmonic valvular regurgitation. There is no pulmonic valvular s tenosis. GREAT VESSELS The aortic root is normal in size. The ascending aorta is normal in size. The IVC is normal in size a nd collapses <50% with inspiration. PERICARDIAL EFFUSION There is no evidence of significant pericardial effusion. Critical Notification Critical Value: No <Conclusion> There is moderate to severe concentric left ventricular hypertrophy. There is moderate LV dysfunction. EF 40% There is global hypokinesis of the left ventricle. Doppler and Color Flow revealed moderate to severe tricuspid regurgitation. Estimated PAP 60 mmHg. Signed by : Felix Bustamante, Electronically Approved : 11/30/2020 12:22:11
[2020-11-30] MEDS ORDERED: IV NORMAL SALINE 1000ML BAG 1,000 ML IV PRN ×2 (12:45)
[2020-11-30] MEDS ORDERED: DIALYSIS PATIENT. MC PRN (12:45)
--- NOTE | 2020-11-30 13:00 | NUR ---
SS following up with discharge planning. SS reviewed pt chart and discussed with pt RN. Pt is currently requiring oxygen at three liters nasal canula. COVID19 negative. Pt has home oxygen. PT/OT ordered. PT recommended assisted unit. Pt has outpatient hemodialysis, at [facility], ; fax [phone], Monday, Monday, and Monday. Per RN, pt having confusion today. SS will continue to follow for discharge planning. Addendum: 11/30/20 at 1319 by KATIA HUDDLESTON SS SS met with pt and left voicemail for pt's daughter, Ruth, , to discuss discharge planning. Pt sitting up in bed with two other visitors in the room. SS was informed that pt has thirteen stairs and lives at home alone. SS discussed assisted unit. Pt's family to discuss together and will inform SS with decision regarding assisted unit.
[2020-11-30 15:00] VITALS: BP 146/66
[2020-11-30] MEDS ORDERED: LIDOCAINE 1% PF 2 ML VIAL. ID STA (16:11)
--- NOTE | 2020-11-30 17:56 | PDOC ---
[employer] PROGRESS NOTE Date of Service DOS: DATE: 11/30/20 TIME: 17:54 Chief Complaint Chief Complaint Assessment/Plan Assessment/Plan A/P: Acute on chronic respiratory failure with hypoxia -appears to be acute CHF exacerbation due to pulmonary edema due to missed dialysis. Nausea vomiting diarrhea -possibly gastroenteritis from food poisoning from services last week. ESRD - MWF HD. Coronary artery disease - stable Acute on Chronic congestive heart failure - will need diuresis. last EF 60% in 2019 Asthmatic bronchitis - cont on nebs Arrhythmias - on Chronic anticoagulation on eliquis, rate control with metoprolol Hyperlipidemia - on statin Anemia - of chronic renal disease Moderate protein calorie malnutrition - supplements DM2 - mostly diet controlled, last A1c was 6 FEN - Renal diet PPX - eliquis FULL CODE Dispo - inpatient for N/V/D, missed dialysis, hypoxia d/w rn Justifications for Admission Justifications for Admission Other Justification History of Present Illness History of Present Illness History of Present Illness History of Present Illness Ms Banks is a 75-year-old female, 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 She has been having nausea after dialysis she noted on 11/23/2020 but initially thought this could have been from food she had from her 's last week and possibly anxiety. She experienced the same nausea and diarrhea 818 and skipped dialysis and rescheduled for today but was unable to attend due to worsening shortness of breath and nausea and abdominal pain with diarrhea. Of note she is requiring 6 L nasal cannula oxygen which is her home O2 requirement of 3 L. Vaccinated for COVID-19. She denies any cough or fever. Patient denies any chest pain. No recent travel or sick contacts Labs with WBC 7, Hb 11.7 with MCV 101, platelets 203, NA NA 148, K4.7, BUN 33, CR 8.7, glucose 101, calcium 7.6, magnesium 1.7, albumin 3, NT proBNP greater than 35,000, troponin 0.045 Rapid COVID-19 negative EKG approximately 79 bpm appears to be atrial fibrillation with no significant changes from prior EKG. Chest radiograph cardiomegaly increased pulmonary vascular congestion Noncontrast CT abdomen pelvis with cholelithiasis otherwise no acute findings. Admitted for further care. 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 Nausea vomiting diarrhea -possibly gastroenteritis from food poisoning from services last week. Will monitor. Given cholelithiasis will obtain right upper quadrant ultrasound. ESRD - MWF HD. Will inform nephrology of admission Coronary artery disease - stable Acute on Chronic congestive heart failure - will need diuresis. last EF 60% in 2019 Asthmatic bronchitis - cont on nebs Arrhythmias - on Chronic anticoagulation on eliquis, rate control with metoprolol Hyperlipidemia - on statin Anemia - of chronic renal disease Moderate protein calorie malnutrition - supplements DM2 - mostly diet controlled, last A1c was 6 FEN - Renal diet PPX - eliquis FULL CODE Dispo - inpatient for N/V/D, missed dialysis, hypoxia 8-21 D/W product development specialist on chronic respiratory failure with hypoxia -appears to be acute CHF exacerbation due to pulmonary edema due to missed dialysis. Nausea vomiting diarrhea -possibly gastroenteritis from food poisoning from services last week. Will monitor. Given cholelithiasis will obtain right upper quadrant ultrasound. ESRD - MWF HD. Will inform nephrology of admission Coronary artery disease - stable Acute on Chronic congestive heart failure - will need diuresis. last EF 60% in 2019 Asthmatic bronchitis - cont on nebs Arrhythmias - on Chronic anticoagulation on eliquis, rate control with metoprolol Hyperlipidemia - on statin Anemia - of chronic renal disease Moderate protein calorie malnutrition - supplements DM2 - mostly diet controlled, last A1c was 6 FEN - Renal diet PPX - eliquis FULL CODE Dispo - inpatient for N/V/D, missed dialysis, hypoxia 8-22 D/W product development specialist on chronic respiratory failure with hypoxia -appears to be acute CHF exacerbation due to pulmonary edema due to missed dialysis. Nausea vomiting diarrhea -possibly gastroenteritis from food poisoning from services last week. Will monitor. Given cholelithiasis will obtain right upper quadrant ultrasound. ESRD - MWF HD. Will inform nephrology of admission Coronary artery disease - stable Acute on Chronic congestive heart failure - will need diuresis. last EF 60% in 2019 Asthmatic bronchitis - cont on nebs Arrhythmias - on Chronic anticoagulation on eliquis, rate control with metoprolol Hyperlipidemia - on statin Anemia - of chronic renal disease Moderate protein calorie malnutrition - supplements DM2 - mostly diet controlled, last A1c was 6 FEN - Renal diet PPX - eliquis FULL CODE Dispo - inpatient for N/V/D, missed dialysis, hypoxia 11/30/20 Patient seen and examined at bedside. Said she is now refusing SNF placement, wants to just go home. Agreeable to staying in the hospital for the night. Attempted to contact [facility] multiple times. Possible d/c tomorrow. Dialysis today. Vitals/I&O Vitals/I&O: Vital Signs Date Time Temp Pulse Resp B/P (MAP) Pulse Ox O2 Delivery O2 Flow Rate FiO2 11/30/20 15:41 97 Nasal Cannula 3.0 11/30/20 15:00 97.0 60 18 146/66 (92) 97.0 I & O 11/29/20 11/29/20 11/30/20 15:00 23:00 07:00 Intake Total 100 ml 100 ml Output Total 200 ml 0 ml Balance -100 ml 100 ml Physical Exam General: Alert, Oriented X3, mild distress Heart: Regular rate, Normal S1, Normal S2, Gallops Lungs: Clear Abdomen: Normal bowel sounds, No tenderness Extremities: No clubbing, No cyanosis Skin: No breakdown Labs Labs: Laboratory Tests Test 11/30/20 05:40 White Blood Count 3.8 x10^3/uL (4.0-11.0) Red Blood Count 3.71 x10^6/uL (3.50-5.40) Hemoglobin 12.1 g/dL (12.0-15.5) Hematocrit 37.6 % (36.0-47.0) Mean Corpuscular Volume 101 fL (79-100) Mean Corpuscular Hemoglobin 33 pg (25-35) Mean Corpuscular Hemoglobin Concent 32 g/dL (31-37) Red Cell Distribution Width 14.5 % (11.5-14.5) Platelet Count 187 x10^3/uL (140-400) Neutrophils (%) (Auto) 70 % (31-73) Lymphocytes (%) (Auto) 14 % (24-48) Monocytes (%) (Auto) 13 % (0-9) Eosinophils (%) (Auto) 2 % (0-3) Basophils (%) (Auto) 1 % (0-3) Neutrophils # (Auto) 2.7 x10^3/uL (1.8-7.7) Lymphocytes # (Auto) 0.5 x10^3/uL (1.0-4.8) Monocytes # (Auto) 0.5 x10^3/uL (0.0-1.1) Eosinophils # (Auto) 0.1 x10^3/uL (0.0-0.7) Basophils # (Auto) 0.0 x10^3/uL (0.0-0.2) Sodium Level 140 mmol/L (136-145) Potassium Level 5.7 mmol/L (3.5-5.1) Chloride Level 100 mmol/L (98-107) Carbon Dioxide Level 35 mmol/L (21-32) Anion Gap 5 (6-14) Blood Urea Nitrogen 45 mg/dL (7-20) Creatinine 6.9 mg/dL (0.6-1.0) Estimated GFR (Cockcroft-Gault) 7.0 Glucose Level 74 mg/dL (70-99) Calcium Level 8.2 mg/dL (8.5-10.1) Phosphorus Level 4.7 mg/dL (2.6-4.7) Albumin 3.0 g/dL (3.4-5.0) Assessment and Plan Assessmemt and Plan Problems Medical Problems: (1) Acute pulmonary edema Status: Acute (2) ESRD (end stage renal disease) on dialysis Status: Chronic Comment Review of Relevant I have reviewed the following items mykel (where applicable) has been applied. Medications: Current Medications Medications (Trade) Dose Ordered Sig/Eric Route PRN Reason Start Time Stop Time Status Last Admin Dose Admin Lidocaine HCl (Xylocaine-Mpf 1% 2ml Vial) 0.25 ml 1X STAT ID 11/30/20 16:11 11/30/20 16:17 DC 11/30/20 16:25 Justifications for Admission Other Justification KERLINE RICHARDSON MD Nov 30, 2020 17:56
[2020-11-30 19:00] VITALS: BP 162/57
[2020-11-30] MEDS: PSYLLIUM HUSK (SUGAR FREE) 1 PKT PACKET PO SCH (20:29)
[2020-11-30] MEDS: ATORVASTATIN CALCIUM 40 MG TABLET. PO SCH (20:29)
[2020-11-30] MEDS: BUDESONIDE 0.5 MG/2 ML NEBU. NEB SCH (21:01)
[2020-11-30 23:00] VITALS: BP 140/65
[2020-12-01 02:52] VITALS: BP 171/60
[2020-12-01 07:00] VITALS: BP 166/72
[2020-12-01] MEDS: ALBUTEROL SULFATE 2.5 MG/3 ML NEBU. NEB SCH ×3 (08:04→15:09)
[2020-12-01] MEDS: BUDESONIDE 0.5 MG/2 ML NEBU. NEB SCH (08:04)
[2020-12-01] MEDS: MEMANTINE 10 MG TABLET. PO SCH (10:08)
[2020-12-01] MEDS: METOPROLOL SUCC 24HR ER 100 MG TAB.ER.24H. PO SCH (10:08)
[2020-12-01] MEDS: APIXABAN 5 MG TABLET. PO SCH (10:08)
[2020-12-01] MEDS: AMIODARONE HCL 200 MG TABLET. PO SCH (10:08)
[2020-12-01] MEDS: SERTRALINE 50 MG TABLET. PO SCH (10:08)
[2020-12-01] MEDS: ASPIRIN CHEWABLE 81 MG TABLET. PO SCH (10:08)
[2020-12-01 11:00] VITALS: BP 142/67
--- NOTE | 2020-12-01 11:45 | PDOC ---
Renal-Progress Notes Subjective Notes Notes LESS SOB OVERALL History of Present Illness Hx of present illness CHRONIC DYSPNEA DUE TO O2 DEPENDENT COPD Vitals Vitals Vital Signs Date Time Temp Pulse Resp B/P (MAP) Pulse Ox O2 Delivery O2 Flow Rate FiO2 12/01/20 11:42 Nasal Cannula 2.5 12/01/20 11:00 97.8 60 16 142/67 (92) 97 97.8 Weight Weight [ ] I.O. Intake and Output Intake and Output 12/01/20 07:00 Intake Total 400 ml Balance 400 ml Intake Oral 400 ml Review of Systems Constitutional: yes: alert Ears/Nose/Throat: Yes: no symptom reported Pulmonary: Yes dyspnea Cardiovascular: Yes no symptom reported Gastrointestional: Yes: no symptom reported Genitourinary: Yes: no symptom reported Musculoskeletal: Yes: muscle stiffness Skin: Yes no symptom reported Psychiatric/Neurological: Yes: confusion Physical Exam General Appearance: no apparent distress Skin: warm Respiratory: decreased breath sounds Heart: S1S2 Abdomen: soft, bowel sounds present Genitourinary: bladder flat Extremities: pulses present Neurology: alert, confused Assessment Assessment IMP HYPOXIA ACUTE ON CHRONIC HYPOXIC RESP FAILURE ACUTE ON CHRONIC DIASTOLIC CHF O2 DEPENDENT COPD ENCEPHALOPATHY ESRD HYPERKALEMIA ANEMIA ABD PAIN DM II HTN PLAN HD TOMORROW PARISA WHEN NEEDED WILL FOLLOW EDITH CLEARY MD Dec 01, 2020 11:45
--- NOTE | 2020-12-01 11:55 | NUR ---
SS following up with discharge planning. SS reviewed pt chart and discussed with pt RN. Pt is currently requiring oxygen at three liters nasal canula. COVID19 negative. Pt has home oxygen. PT/OT ordered. PT now recommending home with home healthcare. Pt has outpatient hemodialysis, at [facility], ; fax [phone], Monday, Monday, and Monday. Pt more alert today. SS met with pt to discuss discharge planning and home healthcare. Pt agreeable to home healthcare at this time with no preference of company. Referral sent to [facility], ; fax [phone]. SS will continue to follow for discharge planning.
[2020-12-01 15:00] VITALS: BP 148/63
--- NOTE | 2020-12-01 15:05 | SNU/HH DC ---
DISCHARGE WITH HOME HEALTH DISCHARGE INFORMATION: Final Diagnosis: Problems Medical Problems: (1) Acute pulmonary edema Status: Acute (2) ESRD (end stage renal disease) on dialysis Status: Chronic Condition on Discharge: Stable CODE STATUS: Code Status: Full HOME HEALTH: Face to Face: I certify this patient is under my care and that I, or a nurse practitioner or physician's political science research assistant working with me, had a face to face encounter that meets the physician face to face encounter requirements with this patient on []. RN For Eval/Treatment: Yes Physical Therapy For: Evalulation/Treatment Occupational Therapy For: Evaluation/Treatment Pt Meets Homebound Status: Unsteady balance w/ amb,, Extreme weakness w/ amb., Fatigue w/ amb., Poor cognition POST DISCHARGE ORDERS: Activity Instructions for Disc: Activity as tolerated Weight Bearing Status after Di: As tolerated Bathing Instructions: Shower-keep dressing dry DIET AFTER DISCHARGE: Cardiac Wound/Incision Care: Do not change dressing, Reinforce dressing PRN CHECKS AFTER DISCHARGE: Checks after discharge: Check blood press - daily, Check blood sugar, ac/hs, Check your Temp as needed, Weigh Yourself Daily TREATMENT/EQUIPMENT ORDERS: Adaptive Equipment Issued: None Discharge Respiratory Equipmen: Oxygen CERTIFICATION STATEMENT: Certification Statement: Certification Statement: Based on the above finding, I certify that this patient is confined to the home and needs intermittent longterm care, physical therapy and/or speech therapy, or continues to need occupational therapy.~ This patient is under my care, and I have initiated the establishment of the plan of care.~ This patient will be followed by myself or a community physician who will periodically review the plan of care. Home Meds Active Scripts Acetaminophen (TYLENOL) 325 Mg Tablet, 650 MG PO PRN Q4HRS PRN for TEMP OVER 100.4F OR MILD PAIN for 14 Days, #60 TAB Prov:SUDHEER ROBLES MD 08/17/19 Nitroglycerin (NITROSTAT) 0.4 Mg Tab.subl, 0.4 MG SL PRN Q5MIN PRN for CHEST PAIN, #30 BOTTLE Prov:JOSE ONEIL MD 07/23/19 Amiodarone Hcl (AMIODARONE HCL) 200 Mg Tablet, 200 MG PO DAILY for heart for 30 Days, #30 TAB Prov:SUDHEER ROBLES MD 12/05/18 Apixaban (ELIQUIS) 5 Mg Tablet, 5 MG PO BID for afib MDD `, #60 TAB Prov:CARMELA TAYLOR MD 03/24/18 Reported Medications Lisinopril (LISINOPRIL) 20 Mg Tablet, 20 MG PO DAILY for FOR HYPERTENSION, #30 TAB 0 Refills 11/26/20 Donepezil Hcl (DONEPEZIL HCL) 10 Mg Tablet, 1 TAB PO DAILY for home med, #90 TAB 3 Refills 11/26/20 Carvedilol (CARVEDILOL ) 12.5 Mg Tablet, 12.5 MG PO BIDWMEALS for CARDIAC, TAB 11/26/20 Sertraline Hcl (ZOLOFT) 50 Mg Tablet, 50 MG PO DAILY for ANTI-DEPRESSANT, TAB 0 Refills 11/26/20 Memantine Hcl (NAMENDA) 10 Mg Tablet, 10 MG PO BID for forgetful, TAB 11/26/20 Metoprolol Succinate (METOPROLOL SUCCINATE ( XL )) 100 Mg Tab.er.24h, 1 TAB PO DAILY for htn, #30 TAB 5 Refills 06/05/19 Clopidogrel Bisulfate (CLOPIDOGREL) 75 Mg Tablet, 75 MG PO DAILY for TO PREVENT BLOOD CLOTS, #30 TAB 0 Refills 04/18/19 Aspirin (ASPIRIN) 81 Mg Tab.chew, 1 TAB PO DAILY for afib, #30 TAB 3 Refills 11/05/18 Atorvastatin Calcium (LIPITOR) 40 Mg Tablet, 40 MG PO HS for FOR CHOLESTEROL, #30 TAB 0 Refills 06/08/18 Budesonide/Formoterol Fumarate (SYMBICORT 160-4.5 MCG INHALER) 10.2 Gm Hfa.aer.ad, 2 PUFF IH BID for copd, #10.6 GM 3 Refills 06/08/18 Albuterol Sulfate (PROAIR HFA INHALER) 8.5 Gm Hfa.aer.ad, 1 PUFF INH PRN Q6HRS PRN for SHORTNESS OF BREATH, INHALER 0 Refills 06/08/18 Hydroxyzine Hcl (HYDROXYZINE HCL) 25 Mg Tablet, 50 MG PO QMWF for anxiety during dialysis, #30 TAB 03/21/18 Discontinued Reported Medications Furosemide (FUROSEMIDE) 40 Mg Tablet, 40 MG PO DAILY for chf, TAB 06/08/18 KERLINE RICHARDSON MD Dec 01, 2020 15:05
--- NOTE | 2020-12-01 15:08 | PDOC3 ---
[facility]-Discharge Summary Date of Admission: Date of Admission: Nov 26, 2020 Date of Discharge: Date of Discharge: Dec 01, 2020 Admission Diagnosis: Problems: (1) ESRD (end stage renal disease) on dialysis (2) Acute pulmonary edema Discharge Diagnosis: Discharge Diagnosis: same Consults: Consults: Nephrology Hospital Course: Hospital Course: A/P: Acute on chronic respiratory failure with hypoxia -appears to be acute CHF exacerbation due to pulmonary edema due to missed dialysis. Nausea vomiting diarrhea -possibly gastroenteritis from food poisoning from services last week. ESRD - MWF HD. Coronary artery disease - stable Acute on Chronic congestive heart failure - will need diuresis. last EF 60% in 2019 Asthmatic bronchitis - cont on nebs Arrhythmias - on Chronic anticoagulation on eliquis, rate control with metoprolol Hyperlipidemia - on statin Anemia - of chronic renal disease Moderate protein calorie malnutrition - supplements DM2 - mostly diet controlled, last A1c was 6 FEN - Renal diet PPX - eliquis FULL CODE Dispo - inpatient for N/V/D, missed dialysis, hypoxia d/w rn Justifications for Admission Justifications for Admission Other Justification History of Present Illness History of Present Illness History of Present Illness History of Present Illness Ms Banks is a 75-year-old female, 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 She has been having nausea after dialysis she noted on 11/23/2020 but initially thought this could have been from food she had from her 's last week and possibly anxiety. She experienced the same nausea and diarrhea 818 and skipped dialysis and rescheduled for today but was unable to attend due to worsening shortness of breath and nausea and abdominal pain with diarrhea. Of note she is requiring 6 L nasal cannula oxygen which is her home O2 requirement of 3 L. Vaccinated for COVID-19. She denies any cough or fever. Patient denies any chest pain. No recent travel or sick contacts Labs with WBC 7, Hb 11.7 with MCV 101, platelets 203, NA NA 148, K4.7, BUN 33, CR 8.7, glucose 101, calcium 7.6, magnesium 1.7, albumin 3, NT proBNP greater than 35,000, troponin 0.045 Rapid COVID-19 negative EKG approximately 79 bpm appears to be atrial fibrillation with no significant changes from prior EKG. Chest radiograph cardiomegaly increased pulmonary vascular congestion Noncontrast CT abdomen pelvis with cholelithiasis otherwise no acute findings. Admitted for further care. 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 Nausea vomiting diarrhea -possibly gastroenteritis from food poisoning from services last week. Will monitor. Given cholelithiasis will obtain right upper quadrant ultrasound. ESRD - MWF HD. Will inform nephrology of admission Coronary artery disease - stable Acute on Chronic congestive heart failure - will need diuresis. 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 Nausea vomiting diarrhea -possibly gastroenteritis from food poisoning from services last week. Will monitor. Given cholelithiasis will obtain right upper quadrant ultrasound. ESRD - MWF HD. Will inform nephrology of admission Coronary artery disease - stable Acute on Chronic congestive heart failure - will need diuresis. 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 Nausea vomiting diarrhea -possibly gastroenteritis from food poisoning from services last week. Will monitor. Given cholelithiasis will obtain right upper quadrant ultrasound. ESRD - MWF HD. Will inform nephrology of admission Coronary artery disease - stable Acute on Chronic congestive heart failure - will need diuresis. last EF 60% in 2020 Asthmatic bronchitis - cont on nebs Arrhythmias - on Chronic anticoagulation on eliquis, rate control with metoprolol Hyperlipidemia - on statin Anemia - of chronic renal disease Moderate protein calorie malnutrition - supplements DM2 - mostly diet controlled, last A1c was 6 FEN - Renal diet PPX - eliquis FULL CODE Dispo - inpatient for N/V/D, missed dialysis, hypoxia 11/30/20 Patient seen and examined at bedside. Said she is now refusing SNF placement, wants to just go home. Agreeable to staying in the hospital for the night. Attempted to contact [facility] multiple times. Possible d/c tomorrow. Dialysis t maxi. 12/01 Patient seen and examined at bedside. Was working with physical therapy recommending home health for placement now. With that we will plan for discharge home today. Patient said she will have a ride home tonight and transportation to dialysis tomorrow. Disposition: Disposition/Orders: D/C to Home w/ HH Activity: Activity: Resume previous activity Diet: Diet: Renal Medications: Home Meds Active Scripts Acetaminophen (TYLENOL) 325 Mg Tablet, 650 MG PO PRN Q4HRS PRN for TEMP OVER 100.4F OR MILD PAIN for 14 Days, #60 TAB Prov:SUDHEER ROBLES MD 08/17/19 Nitroglycerin (NITROSTAT) 0.4 Mg Tab.subl, 0.4 MG SL PRN Q5MIN PRN for CHEST PAIN, #30 BOTTLE Prov:JOSE ONEIL MD 07/23/19 Amiodarone Hcl (AMIODARONE HCL) 200 Mg Tablet, 200 MG PO DAILY for heart for 30 Days, #30 TAB Prov:SUDHEER ROBLES MD 12/05/18 Apixaban (ELIQUIS) 5 Mg Tablet, 5 MG PO BID for afib MDD `, #60 TAB Prov:CARMELA TAYLOR MD 03/24/18 Reported Medications Lisinopril (LISINOPRIL) 20 Mg Tablet, 20 MG PO DAILY for FOR HYPERTENSION, #30 TAB 0 Refills 11/26/20 Donepezil Hcl (DONEPEZIL HCL) 10 Mg Tablet, 1 TAB PO DAILY for home med, #90 TAB 3 Refills 11/26/20 Carvedilol (CARVEDILOL ) 12.5 Mg Tablet, 12.5 MG PO BIDWMEALS for CARDIAC, TAB 11/26/20 Sertraline Hcl (ZOLOFT) 50 Mg Tablet, 50 MG PO DAILY for ANTI-DEPRESSANT, TAB 0 Refills 11/26/20 Memantine Hcl (NAMENDA) 10 Mg Tablet, 10 MG PO BID for forgetful, TAB 11/26/20 Metoprolol Succinate (METOPROLOL SUCCINATE ( XL )) 100 Mg Tab.er.24h, 1 TAB PO DAILY for htn, #30 TAB 5 Refills 06/05/19 Clopidogrel Bisulfate (CLOPIDOGREL) 75 Mg Tablet, 75 MG PO DAILY for TO PREVENT BLOOD CLOTS, #30 TAB 0 Refills 04/18/19 Aspirin (ASPIRIN) 81 Mg Tab.chew, 1 TAB PO DAILY for afib, #30 TAB 3 Refills 11/05/18 Atorvastatin Calcium (LIPITOR) 40 Mg Tablet, 40 MG PO HS for FOR CHOLESTEROL, #30 TAB 0 Refills 06/08/18 Budesonide/Formoterol Fumarate (SYMBICORT 160-4.5 MCG INHALER) 10.2 Gm Hfa.aer.ad, 2 PUFF IH BID for copd, #10.6 GM 3 Refills 06/08/18 Albuterol Sulfate (PROAIR HFA INHALER) 8.5 Gm Hfa.aer.ad, 1 PUFF INH PRN Q6HRS PRN for SHORTNESS OF BREATH, INHALER 0 Refills 06/08/18 Hydroxyzine Hcl (HYDROXYZINE HCL) 25 Mg Tablet, 50 MG PO QMWF for anxiety during dialysis, #30 TAB 03/21/18 Discontinued Reported Medications Furosemide (FUROSEMIDE) 40 Mg Tablet, 40 MG PO DAILY for chf, TAB 06/08/18 Scheduled Amiodarone Hcl (Amiodarone Hcl), 200 MG PO DAILY Apixaban (Eliquis), 5 MG PO BID Aspirin (Aspirin), 1 TAB PO DAILY, (Reported) Atorvastatin Calcium (Lipitor), 40 MG PO HS, (Reported) Budesonide/Formoterol Fumarate (Symbicort 160-4.5 Mcg Inhaler), 2 PUFF IH BID, (Reported) Carvedilol (Carvedilol ), 12.5 MG PO BIDWMEALS, (Reported) Clopidogrel Bisulfate (Clopidogrel), 75 MG PO DAILY, (Reported) Donepezil Hcl (Donepezil Hcl), 1 TAB PO DAILY, (Reported) Hydroxyzine Hcl (Hydroxyzine Hcl), 50 MG PO QMWF, (Reported) Lisinopril (Lisinopril), 20 MG PO DAILY, (Reported) Memantine Hcl (Namenda), 10 MG PO BID, (Reported) Metoprolol Succinate (Metoprolol Succinate ( Xl )), 1 TAB PO DAILY, (Reported) Sertraline Hcl (Zoloft), 50 MG PO DAILY, (Reported) Scheduled PRN Acetaminophen (Tylenol), 650 MG PO PRN Q4HRS PRN for TEMP OVER 100.4F OR MILD PAIN Albuterol Sulfate (Proair Hfa Inhaler), 1 PUFF INH PRN Q6HRS PRN for SHORTNESS OF BREATH, (Reported) Nitroglycerin (Nitrostat), 0.4 MG SL PRN Q5MIN PRN for CHEST PAIN Discontinued Medications Furosemide (Furosemide), 40 MG PO DAILY, (Reported) Justicifation of Admission Dx: Justifications for Admission: Justification of Admission Dx: N/A KERLINE RICHARDSON MD Dec 01, 2020 15:08
--- NOTE | 2020-12-01 17:23 | NUR ---
Discharge Note: WANDA PRABHAKAR6 [facility] Discharge instructions and discharge home medications reviewed with Patient and a copy given. All questions have been answered and understanding verbalized. The following instructions and handouts were given ESRD, Pulmonary edema. Patient discharged to home with home health via wheelchair.
== END 2020-12-01 16:38 | disposition home health service (06) | DRG 291 ==
LOC: ER 11:04 → ED HOLD 13:16 → 6 SOUTH 19:29
PROVIDERS: ADMIT Internal Medicine; ATTEND Internal Medicine
PROC: 5A1D70Z Performance of Urinary Filtration, Intermittent, Less than 6 Hours Per Day (ICD-10-PCS; 2020-11-26)
PROC: 5A1D70Z Performance of Urinary Filtration, Intermittent, Less than 6 Hours Per Day (ICD-10-PCS; 2020-11-28)
PROC: 5A1D70Z Performance of Urinary Filtration, Intermittent, Less than 6 Hours Per Day (ICD-10-PCS; principal; 2020-11-30)
DX: I13.2 Hypertensive heart and chronic kidney disease with heart failure and with stage 5 chronic kidney disease, or end stage renal disease (principal); I50.33 Acute on chronic diastolic (congestive) heart failure; J96.21 Acute and chronic respiratory failure with hypoxia; N18.6 End stage renal disease; E44.0 Moderate protein-calorie malnutrition; G93.40 Encephalopathy, unspecified; J98.11 Atelectasis; D64.9 Anemia, unspecified; E11.22 Type 2 diabetes mellitus with diabetic chronic kidney disease; E21.3 Hyperparathyroidism, unspecified; E78.00 Pure hypercholesterolemia, unspecified; E78.5 Hyperlipidemia, unspecified; E87.5 Hyperkalemia; F32.9 Major depressive disorder, single episode, unspecified; G47.33 Obstructive sleep apnea (adult) (pediatric); I25.10 Atherosclerotic heart disease of native coronary artery without angina pectoris; I48.91 Unspecified atrial fibrillation; I71.4 Abdominal aortic aneurysm, without rupture; J44.9 Chronic obstructive pulmonary disease, unspecified; K57.90 Diverticulosis of intestine, part unspecified, without perforation or abscess without bleeding; K80.20 Calculus of gallbladder without cholecystitis without obstruction; N20.0 Calculus of kidney; Z20.822 Contact with and (suspected) exposure to COVID-19; Z79.01 Long term (current) use of anticoagulants; Z79.02 Long term (current) use of antithrombotics/antiplatelets; Z79.51 Long term (current) use of inhaled steroids; Z79.82 Long term (current) use of aspirin; Z79.899 Other long term (current) drug therapy; Z82.49 Family history of ischemic heart disease and other diseases of the circulatory system; Z83.3 Family history of diabetes mellitus; Z87.891 Personal history of nicotine dependence; Z95.5 Presence of coronary angioplasty implant and graft; Z99.2 Dependence on renal dialysis; Z99.81 Dependence on supplemental oxygen; F41.9 Anxiety disorder, unspecified; Z86.718 Personal history of other venous thrombosis and embolism; Z90.49 Acquired absence of other specified parts of digestive tract; Z68.24 Body mass index [BMI] 24.0-24.9, adult
CPT/HCPCS: 36415; 70450; 71045; 74176; 76705; 80048; 80053; 80069; 82310; 82607; 83735; 83880; 84484; 85007; 85025; 87426; 93306; 94640; 94760; J3010; J3490; U0003; U0005; 97110-GP; 97530-GP; 99285-25; G0378; J7613; J7626

== ENCOUNTER 2021-02-26 06:41 | Emergency (ER) | payer MEDICARE ==
[~2021-02-26] VITALS: Ht 154.9 cm; Wt 57.0 kg
[~2021-02-26 06:41] MED LIST changes: +AMIO200T53 PO; -AMIO200T6 PO; +CARV12.511 PO; -LISI-517 PO; +LISI5TAB15 PO; +MEMA10TA PO; +POTA-121 PO; -POTA20TA4 PO; +SERT50TA PO
--- NOTE | 2021-02-26 07:01 | PHYS DOC ---
Past Medical History Past Medical History: CAD, CHF, COPD, Diabetes-Type II, DVT, High Cholesterol, Heart Disease, Hypertension, [place], Renal Disease, Renal Failure, Other Additional Past Medical Histor: Dialysis MWF Past Surgical History: Appendectomy Additional Past Surgical Histo: Left arm dialysis shunt, L Rotary cuff Smoking Status: Former Smoker Alcohol Use: None Drug Use: None General Adult EDM: Chief Complaint: WEAKNESS/GENERALIZED HPI: HPI: Patient is a 75 year old female with history of HTN, HLD, DM, CAD, COPD on 3 L at baseline, ESRD on MWF HD who presents with lightheadedness, weakness, nausea/vomiting. Stated that she completed her dialysis and felt in her usual state of health on Monday. Last night, , she felt generally weak and had nausea and vomiting. This morning she awoke and was feeling much improved, she ate breakfast with [place]ian toast sticks, and shortly after breakfast began feeling like she may pass out. Was on her way to dialysis when she was in her car and continued to feel lightheaded and had generalized weakness. She called EMS when she was unable to get herself out of her car. Blood glucose was 226. Patient denies any chest pain. She does endorse some epigastric and right upper quadrant discomfort. Denies fevers or chills. Does state that her hands feel cold. Denies any rashes. Does not make urine any longer. Denies cough. States shortness of breath is at baseline. Is vaccinated against Covid. Review of Systems: Review of Systems: Constitutional: Denies fever or chills. Reports generalized weakness. [] Eyes: Denies change in visual acuity. [] HENT: Denies nasal congestion or sore throat. [] Respiratory: Denies cough or shortness of breath. [] Cardiovascular: Denies chest pain or edema. [] GI: Denies abdominal pain, bloody stools or diarrhea. Reports nausea and vomiting. [] : Denies dysuria. [] Musculoskeletal: Denies back pain or joint pain. [] Integument: Denies rash. [] Neurologic: Reports lightheadedness. Denies headache, focal weakness or sensory changes. [] Endocrine: Denies polyuria or polydipsia. [] Lymphatic: Denies swollen glands. [] Psychiatric: Denies depression or anxiety. [] Heart Score: C/O Chest Pain: No Risk Factors: Risk Factors: DM, Current or recent (<one month) smoker, HTN, HLP, family history of CAD, obesity. Risk Scores: Score 0 - 3: 2.5% MACE over next 6 weeks - Discharge Home Score 4 - 6: 20.3% MACE over next 6 weeks - Admit for Clinical Observation Score 7 - 10: 72.7% MACE over next 6 weeks - Early Invasive Strategies Allergies: Allergies: Allergies Coded Allergies Type Severity Reaction Last Updated Verified Iodinated Contrast Media Allergy Intermediate 11/06/17 Yes Physical Exam: PE: Constitutional: Well developed, on 3 L/min nasal cannula HENT: Normocephalic, atraumatic, Eyes: PERRLA, EOMI, conjunctiva normal, no discharge. [] Neck: Normal range of motion, no tenderness, supple, no stridor. [] Cardiovascular:Heart rate regular rhythm, no murmur [] Lungs & Thorax: Bilateral breath sounds clear to auscultation [] Abdomen: Bowel sounds normal, soft, no tenderness, no masses, no pulsatile masses. [] Skin: Warm, dry, no erythema, no rash. [] Extremities: Left upper extremity fistula with palpable thrill, no overlying erythema. Neurologic: Alert and oriented X 3, normal motor function, normal sensory function, no focal deficits noted. [] Psychologic: Affect normal, judgement normal, mood normal. [] EKG: EKG: Sinus rhythm. Right bundle branch block. Right superior axis deviation. ST depressions and T wave inversions anteriorly similar to previous tracing in November 2020. [] Radiology/Procedures: Radiology/Procedures: [] Impression: [facility] [address] [place], [place] [id number] IMAGING REPORT Signed PATIENT: WANDA PRABHAKAR ACCOUNT: [id number] : 1945 LOCATION: ER AGE: 75 SEX: F EXAM STATUS: PRE ER ORD. PHYSICIAN: AJY CHIN MD REASON: weak, dizzy, dialysis patient PROCEDURE: CHEST AP ONLY XR CHEST 1V Clinical Indication: Reason: weak, dizzy, dialysis patient / Spl. Instructions: / History: Comparison: AP chest November 28, 2020. Findings: Atherosclerotic thoracic aorta. Stable cardiomegaly. No acute airspace disease. Upper lung pulmonary vascular prominence is mildly improved. There is no pneumothorax. No pleural effusion is appreciated. Advanced arthropathy of the right shoulder. IMPRESSION: No acute cardiopulmonary process. Electronically signed by: Antonio Barajas MD (02/26/2021 7:33 AM) [facility] DICTATED and SIGNED BY: ANTONIO BARAJAS MD DATE: 02/26/21 [id number] Course & Med Decision Making: Course & Med Decision Making Pertinent Labs and Imaging studies reviewed. (See chart for details) Patient is 75-year-old female with history of HTN, HLD, DM, CAD, ESRD on HD, COPD on 3 L/min baseline who presents with feeling of lightheadedness, generalized weakness, and nausea/vomiting. She does have tenderness in the epigastric area on abdominal examination. CBC, CMP, lipase for further evaluation. Denies chest pain, but given her CAD history, concern for atypical presentation of ACS with troponin was ordered, but may be difficult to interpret in the setting of her renal disease. EKG without obvious hyperkalemic changes, will hold on any treatment for hyperkalemia until labs are available. Considered arrhythmia, ekg appears to be largely at baseline. Will continue to monitor on telemetry. We will check a CXR for evidence of volume overload or infection. Covid swabs ordered. We will reevaluate after initial work-up. 0720 Chest x-ray clear. No evidence of acute electrolyte disturbance. Troponin was slightly elevated at 54. In the setting of her chronic kidney disease this is essentially at baseline. It was unchanged on a delta troponin. Feel ACS is very unlikely given lack of chest pain and stable troponins. Her labs did reveal an anemia to 8.6, down several points from her latest results. She denies any melena or hematochezia. Fecal occult testing was negative. Her vital signs remained stable here. Do not feel that she requires admission for evaluation for GI bleed. I did discuss the importance of following up with her primary care doctor to continue to work-up her anemia, she expresses understanding, and plans to call their office later today. She was able to ambulate and tolerate p.o. in the emergency department, and is feeling much better. Patient is agreeable with plan for discharge with strict return precautions. [address] Disclaimer: Presley Disclaimer: This electronic medical record was generated, in whole or in part, using a voice recognition dictation system. Departure Departure Impression: Primary Impression: Anemia Additional Impression: Nausea & vomiting Disposition: 06 HOME HEALTH CARE SERVICE Condition: STABLE Referrals: BERTO TORRES MD (PCP) Call your PCP today to discuss your anemia (low blood levels) Additional Instructions: Your hemoglobin (red blood cell level) was low at 8.6. It had previously been around 12 in November. This will be very important to follow-up with your outpatient doctors. Sometimes your kidney disease can cause your blood levels to drop. But other things such as bleeding from your GI tract, nutritional deficiencies etc. can cause low blood levels. If you develop dark black stools, bloody stools then you need to return to the emergency department for reevaluation. If you develop worsening lightheadedness, or new symptoms such as fever/chills, chest pain, worsening shortness of breath, or other new/concerning symptoms you need to return to the emergency department for evaluation as well. JAY CHIN MD Feb 26, 2021 07:01
--- NOTE | 2021-02-26 07:35 | RAD ---
XR CHEST 1V Clinical Indication: Reason: weak, dizzy, dialysis patient / Spl. Instructions: / History: Comparison: AP chest November 28, 2020. Findings: Atherosclerotic thoracic aorta. Stable cardiomegaly. No acute airspace disease. Upper lung pulmonary vascular prominence is mildly improved. There is no pneumothorax. No pleural effusion is appreciated. Advanced arthropathy of the right shoulder. IMPRESSION: No acute cardiopulmonary process. Electronically signed by: Antonio Barajas MD (02/26/2021 7:33 AM) [facility]
[2021-02-26 07:46] LABS: BASO % 1 % (0-3); EOS # 0.2 x10^3/uL (0.0-0.7); EOS % 3 % (0-3); HEMATOCRIT 26.7 % (36.0-47.0); HEMOGLOBIN 8.6 g/dL (12.0-15.5); LYMPH # 0.5 x10^3/uL (1.0-4.8); LYMPH % 8 % (24-48); MEAN CORPUSCULAR HEMOGLOBIN 32 pg (25-35); MEAN CORPUSCULAR HGB CONC 32 g/dL (31-37); MEAN CORPUSCULAR VOLUME 100 fL (79-100); MONO # 0.6 x10^3/uL (0.0-1.1); MONO % 11 % (0-9); NEUT # 4.5 x10^3/uL (1.8-7.7); NEUT % 78 % (31-73); PLATELET COUNT 230 x10^3/uL (140-400); RED BLOOD COUNT 2.67 x10^6/uL (3.50-5.40); RED CELL DISTRIBUTION WIDTH 14.7 % (11.5-14.5); WHITE BLOOD COUNT 5.8 x10^3/uL (4.0-11.0)
--- NOTE | 2021-02-26 08:18 | EKG ---
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
[2021-02-26 09:19] LABS: ALBUMIN 2.6 g/dL (3.4-5.0); ALBUMIN/GLOBULIN RATIO 0.9 (1.0-1.7); CREATININE 7.4 mg/dL (0.6-1.0); GFR 6.5; POTASSIUM 4.4 mmol/L (3.5-5.1); TOTAL BILIRUBIN 0.3 mg/dL (0.2-1.0); TOTAL PROTEIN 5.6 g/dL (6.4-8.2)
[2021-02-26 09:27] LABS: FECAL OB PT NEGATIVE (NEG)
[2021-02-26 09:36] LABS: CALCIUM 7.3 mg/dL (8.5-10.1)
[2021-02-26 12:47] VITALS: BP 139/88
--- NOTE | 2021-02-26 16:20 | NUR ---
IP: Informed pt of negative covid test. Pt verbalized understanding.
== END 2021-02-26 13:12 | disposition home health service (06) ==
LOC: ER 06:41
DX: D64.9 Anemia, unspecified (principal); R11.2 Nausea with vomiting, unspecified; I25.10 Atherosclerotic heart disease of native coronary artery without angina pectoris; I13.2 Hypertensive heart and chronic kidney disease with heart failure and with stage 5 chronic kidney disease, or end stage renal disease; E11.22 Type 2 diabetes mellitus with diabetic chronic kidney disease; N18.6 End stage renal disease; I50.9 Heart failure, unspecified; J44.9 Chronic obstructive pulmonary disease, unspecified; E78.00 Pure hypercholesterolemia, unspecified; I25.2 Old myocardial infarction; E78.5 Hyperlipidemia, unspecified; Z20.822 Contact with and (suspected) exposure to COVID-19; Z86.718 Personal history of other venous thrombosis and embolism; Z99.2 Dependence on renal dialysis; Z91.041 Radiographic dye allergy status
CPT/HCPCS: 36415; 71045; 80053; 82274; 83690; 84484; 85025; 87426; 93005; 99285; U0003; U0005

== ENCOUNTER 2021-02-28 13:21 | Emergency (ER) | payer MEDICARE ==
[~2021-02-28] VITALS: Ht 154.9 cm; Wt 54.0 kg
[2021-02-28] MEDS ORDERED: TETRACAINE 0.5% OPHTH SOLUTION 4ML BOTTLE. OU ONE (14:45)
[2021-02-28] MEDS ORDERED: FLUORESCEIN OPHTH TEST STRIP. OU ONE (14:45)
--- NOTE | 2021-02-28 15:55 | RAD ---
Exam: CT head and orbits without contrast. Date: 02/28/2021, comparison:CT head without contrast from 11/29/2020 Indication: Acute episode of blindness Technique: Contiguous helical acquisitions are obtained from the foramen magnum to the vertex without IV contrast. In addition helical acquisitions are also obtained through the orbits without contrast. Sagittal and coronal reformatted images are obtained and reviewed. Findings: CT head: There is mild low attenuation within the periventricular white matter consistent with chronic small v essel ischemic disease. Prominence of cortical sulci and ventricular system is noted. There is cerebr al atrophy. Midline structures are central. No hydrocephalus. No suspicious cerebral edema. No mass lesion or mid line shift is seen. No extra axial fluid collection, intracranial hemorrhage or acute ischemia is de tected. The visualized paranasal sinuses and mastoid air cells are clear. The osseous calvarium appea rs unremarkable. Impression: 1.Chronic small vessel ischemic disease and cerebral atrophy. 2.No acute findings. End impression CT orbits: There is normal aeration of both frontal, ethmoid, maxillary and sphenoid sinuses. No air-fluid leve l, mucoperiosteal thickening or mucus retention cyst is identified. The bony orbital margins and the intraocular contents are bilaterally symmetric and unremarkable. Both ostiomeatal complexes are pres erved. Nasal bones and zygomatic arches are preserved.No abnormal fluid collections or hematoma form ation seen. The visualized portion of the brain is normal. Impression: 1. No acute abnormality seen. PQRS Compliance Statement: One or more of the following individualized dose reduction techniques were utilized for this examinat ion: 1. Automated exposure control 2. Adjustment of the mA and/or kV according to patient size 3. Use of iterative reconstruction technique Electronically signed by: Cassie Penny MD (02/28/2021 3:53 PM) [facility]
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
[2021-02-28 17:49] LABS: BASO % 1 % (0-3); EOS % 0 % (0-3); HEMATOCRIT 26.5 % (36.0-47.0); HEMOGLOBIN 8.7 g/dL (12.0-15.5); LYMPH # 0.5 x10^3/uL (1.0-4.8); LYMPH % 8 % (24-48); MEAN CORPUSCULAR HEMOGLOBIN 33 pg (25-35); MEAN CORPUSCULAR HGB CONC 33 g/dL (31-37); MEAN CORPUSCULAR VOLUME 99 fL (79-100); MONO # 0.5 x10^3/uL (0.0-1.1); MONO % 7 % (0-9); NEUT # 5.8 x10^3/uL (1.8-7.7); NEUT % 85 % (31-73); PLATELET COUNT 238 x10^3/uL (140-400); RED BLOOD COUNT 2.67 x10^6/uL (3.50-5.40); RED CELL DISTRIBUTION WIDTH 14.8 % (11.5-14.5); WHITE BLOOD COUNT 6.9 x10^3/uL (4.0-11.0)
[2021-02-28 18:20] LABS: CALCIUM 7.2 mg/dL (8.5-10.1); CREATININE 4.4 mg/dL (0.6-1.0); GFR 11.8; POTASSIUM 4.3 mmol/L (3.5-5.1)
[2021-02-28 18:32] LABS: ALBUMIN/GLOBULIN RATIO 0.9 (1.0-1.7); MAGNESIUM 1.8 mg/dL (1.8-2.4); TOTAL BILIRUBIN 0.8 mg/dL (0.2-1.0); TOTAL PROTEIN 6.3 g/dL (6.4-8.2)
[2021-02-28] MEDS ORDERED: ERYTHROMYCIN 0.5% OPHTH OINTMENT 1GM TUBE. OU ONE (19:00)
[2021-02-28 19:38] VITALS: BP 153/78
--- NOTE | 2021-03-01 13:58 | EKG ---
[facility] [address] [place] [address] Test Date: 2021-02-28 Test Time: 14:50:38 Pat Name: WANDA PRABHAKAR Department: Room: Gender: F Marriage And Family Therapist: : [id number] Requested By: ROSALIA ZULETA Order Number: [id number] Reading MD: Measurements Intervals [place] Rate: 74 P: -60 [place]: 92 QRS: -65 QRSD: 156 T: 42 QT: 432 QTc: 480 Interpretive Statements SINUS RHYTHM ATRIAL PREMATURE COMPLEX(ES) ABNORMAL LEFT AXIS DEVIATION RIGHT BUNDLE BRANCH BLOCK RVH WITH REPOLARIZATION ABNORMALITY ABNORMAL ECG RI6.01 No previous ECG available for comparison
== END 2021-02-28 19:45 | disposition home or self-care (01) ==
LOC: ER 13:21
DX: H53.9 Unspecified visual disturbance (principal); J02.9 Acute pharyngitis, unspecified; H92.03 Otalgia, bilateral; I13.0 Hypertensive heart and chronic kidney disease with heart failure and stage 1 through stage 4 chronic kidney disease, or unspecified chronic kidney disease; E11.22 Type 2 diabetes mellitus with diabetic chronic kidney disease; N18.9 Chronic kidney disease, unspecified; I50.9 Heart failure, unspecified; I25.10 Atherosclerotic heart disease of native coronary artery without angina pectoris; J44.9 Chronic obstructive pulmonary disease, unspecified; E78.00 Pure hypercholesterolemia, unspecified; I25.2 Old myocardial infarction; Z86.718 Personal history of other venous thrombosis and embolism; Z99.2 Dependence on renal dialysis; Z91.041 Radiographic dye allergy status
CPT/HCPCS: 36415; 70450; 70480; 80053; 83735; 83880; 84100; 84484; 85025; 87070; 87880; 93005; 99285